=== PATIENT | male | born 1945 | race Native Hawaiian/Other Pacific Islander ===

== ENCOUNTER 2019-04-20 07:18 | Observation (INO) | payer MEDICARE, OTHER ==
[2019-04-20] MEDS ORDERED: SODIUM CHLORIDE 0.9% 1,000 ML IV STA ×2 (07:35)
--- NOTE | 2019-04-20 07:39 | ED ---
Nausea/Vomiting/Diarrhea HPI - General Chief complaint: Nausea/Vomiting/Diarrhea Stated complaint: NVD/back pain Time Seen by Provider: 04/20/19 07:26 Source: patient, family, RN notes reviewed Mode of arrival: wheelchair Limitations: no limitations, language barrier - History of Present Illness Initial comments: This is a 73-year-old male presents emergency Department with 3 days of nausea vomiting and diarrhea which is gotten worse he's had decreased oral intake he states she's had back pain going from his lumbar spine up to his upper thoracic spine gets worse with deep breathing he's also had markedly decreased oral intake. He also has some sharp anterior chest pain yesterday. Fevers chills or sweats just feels tired. No recent antibiotics. No cough or phlegm production no other modifying factors MD complaint: nausea, vomiting, diarrhea, abdominal pain, other - Related Data Home Medications Medication Instructions Recorded Confirmed Atenolol [Tenormin] 50 mg PO DAILY 03/13/16 04/20/19 DULoxetine HCL [Cymbalta] 30 mg PO HS 03/13/16 04/20/19 Furosemide [Lasix] 40 mg PO BID 03/13/16 04/20/19 Isosorbide Mononitrate ER [Imdur] 60 mg PO DAILY 03/13/16 04/20/19 Lovastatin [Mevacor] 20 mg PO HS 03/13/16 04/20/19 cloNIDine HCL [Catapres] 0.2 mg PO TID 03/13/16 04/20/19 Ergocalciferol [Vitamin D2] 50,000 unit PO FR 04/20/19 04/20/19 INSULIN ASPART (NovoLOG) [NovoLOG See Protocol SQ AC-TID 04/20/19 04/20/19 (formulary)] Insulin Glargine [Lantus] 60 unit SQ QA 04/20/19 04/20/19 Insulin Glargine [Lantus] 100 unit SQ 04/20/19 04/20/19 Lisinopril [Zestril] 5 mg PO DAILY 04/20/19 04/20/19 [place]-3 Fatty Acids/Fish Oil [Fish 1 cap PO DAILY 04/20/19 04/20/19 Oil 1,000 mg Softgel] Allergies Allergy/AdvReac Type Severity Reaction Status Date / Time No Known Allergies Allergy Verified 04/20/19 07:47 Review of Systems ROS Statement: Those systems with pertinent positive or pertinent negative responses have been documented in the HPI. ROS Other: All systems not noted in ROS Statement are negative. Past Medical History Past Medical History: Diabetes Mellitus, Hyperlipidemia, Hypertension, Sleep Apnea/CPAP/BIPAP Additional Past Medical History / Comment(s): ARTHRITIS, kidney stones History of Any Multi-Drug Resistant Organisms: None Reported Past Surgical History: Back Surgery Additional Past Surgical History / Comment(s): MASS REMOVED FROM BACK OF HEAD Past Psychological History: Depression Smoking Status: Never smoker Past Alcohol Use History: None Reported Past Drug Use History: None Reported General Exam - General Exam Comments Initial Comments: This is a well-developed well-nourished awake alert oriented times 3 male Limitations: no limitations, language barrier General appearance: alert, anxious, in distress Head exam: Present: atraumatic, normocephalic, normal inspection Eye exam: Present: normal appearance, PERRL, EOMI. Absent: scleral icterus, conjunctival injection, periorbital swelling ENT exam: Present: mucous membranes dry Neck exam: Present: normal inspection. Absent: tenderness, meningismus, lymphadenopathy Respiratory exam: Present: normal lung sounds bilaterally. Absent: respiratory distress, wheezes, rales, rhonchi, stridor Cardiovascular Exam: Present: regular rate, normal rhythm, normal heart sounds. Absent: systolic murmur, diastolic murmur, rubs, gallop, clicks GI/Abdominal exam: Present: soft, tenderness, normal bowel sounds. Absent: distended, guarding, rebound, rigid, bruit, pulsatile mass Rectal exam: Present: deferred Extremities exam: Present: normal inspection, full ROM, normal capillary refill. Absent: tenderness, pedal edema, joint swelling, calf tenderness Back exam: Present: normal inspection Neurological exam: Present: alert, oriented X3, CN II-XII intact Psychiatric exam: Present: normal affect, normal mood Skin exam: Present: warm, dry, intact, normal color. Absent: rash Course Vital Signs 04/20/19 04/20/19 04/20/19 07:21 10:00 11:10 Temperature 98.2 F 98.6 F Pulse Rate 71 76 80 Respiratory 20 18 18 Rate Blood Pressure 206/84 211/84 206/91 O2 Sat by Pulse 98 95 95 Oximetry - Reevaluation(s) Reevaluation #1: 04/20/19 12:50 The patient is reevaluated several occasions and minimal improvement thus far. No new medications no history of any risk factors for hepatitis. Patient does not drink alcohol. Medical Decision Making - Medical Decision Making I did discuss findings with the patient family patient does demonstrate elevated white blood cell count infectious processes as suspected in addition to the elevated liver enzymes. Hepatitis panel is negative. Patient be admitted consultation by GI - Lab Data Result diagrams: 04/20/19 07:55 04/20/19 07:55 Lab Results 04/20/19 04/20/19 04/20/19 Range/Units 07:55 07:55 07:55 WBC 15.2 H (3.8-10.6) k/uL RBC 5.20 (4.30-5.90) m/uL Hgb 15.5 (13.0-17.5) gm/dL Hct 46.9 (39.0-53.0) % MCV 90.2 (80.0-100.0) fL MCH 29.9 (25.0-35.0) pg MCHC 33.1 (31.0-37.0) g/dL RDW 13.5 (11.5-15.5) % Plt Count 269 (150-450) k/uL Neutrophils % 91 % Lymphocytes % 4 % Monocytes % 4 % Eosinophils % 1 % Basophils % 0 % Neutrophils # 13.9 H (1.3-7.7) k/uL Lymphocytes # 0.6 L (1.0-4.8) k/uL Monocytes # 0.6 (0-1.0) k/uL Eosinophils # 0.1 (0-0.7) k/uL Basophils # 0.0 (0-0.2) k/uL D-Dimer (<0.60) mg/L FEU Sodium 138 (137-145) mmol/L Potassium 4.4 (3.5-5.1) mmol/L Chloride 104 (98-107) mmol/L Carbon Dioxide 23 (22-30) mmol/L Anion Gap 11 mmol/L BUN 19 (9-20) mg/dL Creatinine 1.22 (0.66-1.25) mg/dL Est GFR (CKD-EPI)AfAm 68 (>60 ml/min/1.73 sqM) Est GFR (CKD-EPI)NonAf 59 (>60 ml/min/1.73 sqM) Glucose 296 H (74-99) mg/dL Calcium 9.0 (8.4-10.2) mg/dL Magnesium 1.9 (1.6-2.3) mg/dL Total Bilirubin 2.0 H (0.2-1.3) mg/dL AST 406 H (17-59) U/L ALT 209 H (21-72) U/L Alkaline Phosphatase 297 H (38-126) U/L Creatine Kinase 158 (55-170) U/L Troponin I (0.000-0.034) ng/mL Total Protein 6.9 (6.3-8.2) g/dL Albumin 3.7 (3.5-5.0) g/dL Lipase 225 (23-300) U/L Urine Color Yellow Urine Appearance Clear (Clear) Urine pH 7.0 (5.0-8.0) Ur Specific [place] 1.011 (1.001-1.035) Urine Protein 3+ H (Negative) Urine Glucose (UA) 4+ H (Negative) Urine Ketones Trace H (Negative) Urine Blood Moderate H (Negative) Urine Nitrite Negative (Negative) Urine Bilirubin Negative (Negative) Urine Urobilinogen <2.0 (<2.0) mg/dL Ur Leukocyte Esterase Negative (Negative) Urine RBC 5 (0-5) /hpf Urine WBC 2 (0-5) /hpf Ur Squamous Epith Cells <1 (0-4) /hpf Urine Mucus Rare H (None) /hpf Hepatitis A IgM Ab 04/20/19 04/20/19 04/20/19 Range/Units 07:55 07:55 11:30 WBC (3.8-10.6) k/uL RBC (4.30-5.90) m/uL Hgb (13.0-17.5) gm/dL Hct (39.0-53.0) % MCV (80.0-100.0) fL MCH (25.0-35.0) pg MCHC (31.0-37.0) g/dL RDW (11.5-15.5) % Plt Count (150-450) k/uL Neutrophils % % Lymphocytes % % Monocytes % % Eosinophils % % Basophils % % Neutrophils # (1.3-7.7) k/uL Lymphocytes # (1.0-4.8) k/uL Monocytes # (0-1.0) k/uL Eosinophils # (0-0.7) k/uL Basophils # (0-0.2) k/uL D-Dimer 1.21 H (<0.60) mg/L FEU Sodium (137-145) mmol/L Potassium (3.5-5.1) mmol/L Chloride (98-107) mmol/L Carbon Dioxide (22-30) mmol/L Anion Gap mmol/L BUN (9-20) mg/dL Creatinine (0.66-1.25) mg/dL Est GFR (CKD-EPI)AfAm (>60 ml/min/1.73 sqM) Est GFR (CKD-EPI)NonAf (>60 ml/min/1.73 sqM) Glucose (74-99) mg/dL Calcium (8.4-10.2) mg/dL Magnesium (1.6-2.3) mg/dL Total Bilirubin (0.2-1.3) mg/dL AST (17-59) U/L ALT (21-72) U/L Alkaline Phosphatase (38-126) U/L Creatine Kinase (55-170) U/L Troponin I <0.012 (0.000-0.034) ng/mL Total Protein (6.3-8.2) g/dL Albumin (3.5-5.0) g/dL Lipase (23-300) U/L Urine Color Urine Appearance (Clear) Urine pH (5.0-8.0) Ur Specific [place] (1.001-1.035) Urine Protein (Negative) Urine Glucose (UA) (Negative) Urine Ketones (Negative) Urine Blood (Negative) Urine Nitrite (Negative) Urine Bilirubin (Negative) Urine Urobilinogen (<2.0) mg/dL Ur Leukocyte Esterase (Negative) Urine RBC (0-5) /hpf Urine WBC (0-5) /hpf Ur Squamous Epith Cells (0-4) /hpf Urine Mucus (None) /hpf Hepatitis A IgM Ab NEGATIVE - EKG Data -: EKG Interpreted by In EKG shows normal: sinus rhythm, axis, intervals, QRS complexes, ST-T waves (Normal sinus rhythm rate was 67. Interval 154 QRS 96 QT since QTC 480/[address]-T wave changes) Rate: normal - Radiology Data Radiology results: report reviewed (I did review the imaging and report no evidence of acute findings. Ultrasound does show evidence of sludge in the gallbladder.), image reviewed Disposition Clinical Impression: Hepatitis, Gastroenteritis, Dehydration, Failure to thrive Disposition: ADMITTED IP TO THIS [facility] Condition: Fair Referrals: Dennis Santana DO [Primary Care Provider] - 1-2 days
[2019-04-20] MEDS: ONDANSETRON 4 MG/2 ML VIAL IVP STA ×2 (08:00→10:19)
[2019-04-20 08:07] LABS: Basophils % (A) 0 %; Eosinophils # (A) 0.1 k/uL (0-0.7); Eosinophils % (A) 1 %; HCT 46.9 % (39.0-53.0); HGB 15.5 gm/dL (13.0-17.5); Lymphocytes # (A) 0.6 k/uL (1.0-4.8); Lymphocytes % (A) 4 %; MCH 29.9 pg (25.0-35.0); MCHC 33.1 g/dL (31.0-37.0); MCV 90.2 fL (80.0-100.0); Mean Platelet Volume 7.6; Monocytes # (A) 0.6 k/uL (0-1.0); Monocytes % (A) 4 %; Neutrophils # (A) 13.9 k/uL (1.3-7.7); Neutrophils % (A) 91 %; Platelet Count 269 k/uL (150-450); RDW 13.5 % (11.5-15.5); WBC 15.2 k/uL (3.8-10.6)
[2019-04-20 08:13] LABS: Appearance,Urine Clear (Clear); Bilirubin,Urine Negative (Negative); Blood,Urine Moderate (Negative); Color,Urine Yellow; Glucose,Urine (UA) 4+ (Negative); Ketones,Urine Trace (Negative); Leukocyte Esterase,Urine Negative (Negative); Mucus,Urine Rare /hpf; Nitrite,Urine Negative (Negative); Protein,Urine 3+ (Negative); RBC,Urine 5 /hpf (0-5); Specific Gravity,Urine 1.011 (1.001-1.035); Squamous Epithelial Cell,Urine <1 /hpf (0-4); Urobilinogen,Urine <2.0 mg/dL (<2.0); WBC,Urine 2 /hpf (0-5)
[2019-04-20 08:17] LABS: Albumin 3.7 g/dL (3.5-5.0); Magnesium 1.9 mg/dL (1.6-2.3); Potassium 4.4 mmol/L (3.5-5.1); Total Protein 6.9 g/dL (6.3-8.2)
--- NOTE | 2019-04-20 08:29 | XR ---
EXAMINATION TYPE: XR chest 2V DATE OF EXAM: 04/20/2019 COMPARISON: Chest x-ray March 13, 2016. HISTORY: Right-sided chest pain today. TECHNIQUE: Frontal and lateral views of the chest are obtained. FINDINGS: Low lung volumes are present. There is no focal air space opacity, pleural effusion, or pne umothorax seen. The cardiac silhouette size is within normal limits. Some bridging spurs in the thor acic spine are seen. IMPRESSION: Low lung volumes without acute pulmonary process. No significant change from prior.
--- NOTE | 2019-04-20 08:31 | XR ---
EXAMINATION TYPE: XR KUB DATE OF EXAM: 04/20/2019 8:23 AM CLINICAL HISTORY: Generalized abdominal pain with nausea and vomiting TECHNIQUE: Two Upright KUB images of the abdomen are obtained. COMPARISON: Abdominal x-ray March 13, 2016. CT abdomen and pelvis March 16, 2015. FINDINGS: Scattered gas is seen in non-distended small bowel loops. Gas and fecal material is seen in non-distended colon. Postsurgical change at lumbosacral junction is redemonstrated. No pneumoperiton eum. No suspicious calcifications. Lung bases are clear. IMPRESSION: Overall nonobstructive bowel gas pattern.
--- NOTE | 2019-04-20 11:12 | CT ---
EXAMINATION TYPE: CT angio thor/abd pel aorta DATE OF EXAM: 04/20/2019 COMPARISON: 03/16/2015 HISTORY: Nausea and vomiting, back pain CT DLP: 1910.9 mGycm CONTRAST: CTA thoracic and abdominal aorta with 3-D reconstruction is performed and without and with IV Contras t, patient injected with 100 mL of Isovue 370. Contrast CTA of the thoracic and abdominal aorta was performed from the lung apex through the base of the pelvis. 3-D reconstruction imaging obtained at a separate workstation. CT Chest: THORACIC AORTA: There is no evidence for aneurysm. No dissection or mediastinal hematoma. Mild ath eromatous changes are seen. LUNGS: The lungs are clear and free of infiltrate or atelectasis. No pulmonary nodule or mass is det ected. No pleural effusion or CT evidence of interstitial lung disease. MEDIASTINUM: The heart is not enlarged. No evidence for mediastinal mass or adenopathy. HILAR STRUCTURES: No evidence for mass. No hilar adenopathy is appreciated. OTHER: No significant abnormality. CONTRAST CT ABDOMEN AND PELVIS ABDOMINAL AORTA: No evidence for abdominal aortic aneurysm. No dissection. Iliac vessels are symmet renata and patent. LIVER/GB- No significant abnormality is seen. PANCREAS- No significant abnormality is seen. SPLEEN- No significant abnormality is seen. ADRENALS- No significant abnormality is seen. KIDNEYS/BLADDER- No significant abnormality is seen. Right renal cystic changes noted. BOWEL- No Significant abnormality GENITAL ORGANS: No gross abnormality seen. LYMPH NODES- No greater than 1cm abdominal or pelvic lymph nodes are appreciated. OSSEOUS STRUCTURES-severe lumbar degenerative disc disease and spondylosis with central stenosis at L 2-3. OTHER- No significant abnormality is seen. IMPRESSION- 1. No evidence for aortic dissection or aneurysm. 2. No acute process appreciated at this time.
--- NOTE | 2019-04-20 12:17 | US ---
EXAMINATION TYPE: US gallbladder DATE OF EXAM: 04/20/2019 COMPARISON: CT CLINICAL HISTORY: Pain. EXAM MEASUREMENTS: Liver Length: 14.5 cm Gallbladder Wall: 0.4 cm CBD: 0.5 cm Right Kidney: 10.4 x 5.1 x 5.0 cm Morbidly obese patient carrying most of his weight in his abdomen. Technically difficult and severely limited study. Pancreas: Obscured by bowel gas Liver: Partially obscured by overlying bowel gas, very limited visualization shows increased attenua tion. Gallbladder: possible sludge, wall slightly thickened Evidence for sonographic Killian's sign: no CBD: very limited visualization Right Kidney: limited views show no obvious mass IMPRESSION: 1. Fatty liver. 2. Gallbladder sludge.
[2019-04-20] MEDS ORDERED: cefTRIAXone IN SWFI 1,000 MG/10 ML SYRINGE IVP STA (12:49)
[2019-04-20] MEDS ORDERED: ONDANSETRON 4 MG/2 ML VIAL IVP PRN (12:57)
[2019-04-20] MEDS ORDERED: HYDROmorphone 1 MG/ML 1 ML SYRINGE IVP PRN (12:57)
[2019-04-20] MEDS ORDERED: NALOXONE 0.4 MG/ML 1 ML VIAL IV PRN (12:57)
[2019-04-20] MEDS: FUROSEMIDE 40 MG TAB PO SCH (15:56)
[2019-04-20] MEDS: cloNIDine HCL 0.2 MG TAB PO SCH ×2 (15:56→21:13)
[2019-04-20] MEDS: SODIUM CHLORIDE 0.9% 1,000 ML IV SCH ×2 (15:57→22:56)
[2019-04-20 17:11] LABS: Glucose,Whole Blood 341 mg/dL (75-99)
[2019-04-20] MEDS: INSULIN ASPART (NovoLOG) 100 UNIT/ML VIAL SQ SCH ×2 (17:22→21:50)
[2019-04-20 20:51] LABS: Glucose,Whole Blood 435 mg/dL (75-99)
[2019-04-20] MEDS ORDERED: DULoxetine HCL 30 MG CAPSULE.DR PO SCH (21:00)
[2019-04-20] MEDS ORDERED: ATORVASTATIN 10 MG TAB PO SCH (21:00)
[2019-04-20] MEDS ORDERED: INSULIN REGULAR BOLUS (FROM DRIP BAG) IV ONE (21:01)
[2019-04-20] MEDS ORDERED: hydrALAZINE HCL 25 MG TAB PO PRN (21:27)
[2019-04-20] MEDS: INSULIN REGULAR 100 UNIT in SODIUM CHLORIDE 0.9% 100 ML IV SCH ×2 (21:46→22:48)
[2019-04-20 21:52] LABS: Glucose,Whole Blood 362 mg/dL (75-99)
[2019-04-20 22:27] LABS: Glucose,Whole Blood 283 mg/dL (75-99)
--- NOTE | 2019-04-20 22:29 | P.HPIM ---
History of Present Illness H&P Date: 04/20/19 Chief Complaint: Nausea and vomiting Patient is a 79-year-old male with a known history of diabetes type 2 insulin- dependent, hypertension, hyperlipidemia and obstructive sleep apnea as well as morbid obesity came to ER with complaints of nausea vomiting and diarrhea as well as abdominal pain which has been worsening for the past 3 days. Patient says that he woke up last night and is having pain in the back which is radiating up to in between the shoulder blades. Patient has been having loose stools. No blood in the stools. Was having cough without any sputum produ ction. Patient felt very weak and fell on Thursday. Patient does have loss of appetite and has been having intractable nausea vomiting worse last night which made him to come to the ER. Patient also felt heaviness in the chest and sweating. Patient otherwise denied any recent illnesses. No recent antibiotic use. EKG showed normal sinus rhythm ULTRASOUND ABDOMEN SHOWED FATTY INFILTRATION OF THE LIVER. Gallbladder sludge. CTA chest no evidence of aortic dissection. No acute process. Chest x-ray showed low lung volumes without any acute process. Next and WBC 15.2 D-dimer 1.21 CBG in 300s Elevated AST ALT and alk phos Acute hepatitis panel negative Embolism and lipase is not elevated. Review of Systems Constitutional: Patient denies any fever or chills . Generalized weakness. Abdomen: Patient does have nausea vomiting and abdominal pain and diarrhea. Cardiovascular: Patient denies any chest pain or short of breath no palpitations. Respiratory: patient denied any cough is from production. No shortness of breath Neurologic: Patient denied any numbness or tingling headache. Musculoskeletal: Patient denies any complaints of joint swelling or deformity. Skin: Negative Psychiatric: Negative Endocrine: No heat or cold intolerance. No recent weight gain. Genitourinary: No dysuria or hematuria. All other 14 point ROS negative except the above Past Medical History Past Medical History: Diabetes Mellitus, Hyperlipidemia, Hypertension, Sleep Apnea/CPAP/BIPAP Additional Past Medical History / Comment(s): ARTHRITIS, kidney stones History of Any Multi-Drug Resistant Organisms: None Reported Past Surgical History: Back Surgery Additional Past Surgical History / Comment(s): MASS REMOVED FROM BACK OF HEAD Past Psychological History: Depression Smoking Status: Never smoker Past Alcohol Use History: None Reported Past Drug Use History: None Reported Medications and Allergies Home Medications Medication Instructions Recorded Confirmed Type Atenolol [Tenormin] 50 mg PO DAILY 03/13/16 04/20/19 History DULoxetine HCL [Cymbalta] 30 mg PO HS 03/13/16 04/20/19 History Furosemide [Lasix] 40 mg PO BID 03/13/16 04/20/19 History Isosorbide Mononitrate ER [Imdur] 60 mg PO DAILY 03/13/16 04/20/19 History Lovastatin [Mevacor] 20 mg PO HS 03/13/16 04/20/19 History cloNIDine HCL [Catapres] 0.2 mg PO TID 03/13/16 04/20/19 History Ergocalciferol [Vitamin D2] 50,000 unit PO FR 04/20/19 04/20/19 History INSULIN ASPART (NovoLOG) [NovoLOG See Protocol SQ AC-TID 04/20/19 04/20/19 History (formulary)] Insulin Glargine [Lantus] 60 unit SQ QAM 04/20/19 04/20/19 History Insulin Glargine [Lantus] 100 unit SQ HS 04/20/19 04/20/19 History Lisinopril [Zestril] 5 mg PO DAILY 04/20/19 04/20/19 History [place]-3 Fatty Acids/Fish Oil [Fish 1 cap PO DAILY 04/20/19 04/20/19 History Oil 1,000 mg Softgel] Allergies Allergy/AdvReac Type Severity Reaction Status Date / Time No Known Allergies Allergy Verified 04/20/19 07:47 Physical Exam Vitals: Vital Signs Temp Pulse Resp BP Pulse Ox 04/20/19 14:42 98.4 F 87 18 163/76 97 04/20/19 13:23 80 18 167/68 96 04/20/19 11:10 80 18 206/91 95 04/20/19 10:00 98.6 F 76 18 211/84 95 04/20/19 07:21 98.2 F 71 20 206/84 98 Intake and Output 04/20/19 04/20/19 04/20/19 06:59 14:59 22:59 Other: Voiding Method Toilet Weight 111.584 kg PHYSICAL EXAMINATION: Patient is lying in the bed comfortably, no acute distress, awake alert and oriented.. HEENT: Normocephalic. Neck is supple. Pupils reactive. Nostrils clear. Oral cavity is moist. Ears reveal no drainage. Neck reveals no JVD, carotid bruits, or thyromegaly. CHEST EXAMINATION: Trachea is central. Symmetrical expansion. Lung calzada clear to auscultation and percussion. CARDIAC: Normal S1, S2 with no gallops. No murmurs ABDOMEN: Soft. Nontender. Bowel sounds normal. No organomegaly. No abdominal bruits. Extremities: reveal no edema. No clubbing or cyanosis Neurologically awake, alert, oriented x3 with well-coordinated movements. No focal deficits noted Skin: No rash or skin lesions. Psychiatric: Coperative. Nonsuicidal Musculoskeletal: No joint swelling or deformity. Normal range of motion. Results CBC & Chem 7: 04/20/19 07:55 04/20/19 07:55 Labs: Abnormal Lab Results - Last 24 Hours (Table) 04/20/19 04/20/19 04/20/19 Range/Units 07:55 07:55 07:55 WBC 15.2 H (3.8-10.6) k/uL Neutrophils # 13.9 H (1.3-7.7) k/uL Lymphocytes # 0.6 L (1.0-4.8) k/uL D-Dimer (<0.60) mg/L FEU Glucose 296 H (74-99) mg/dL Total Bilirubin 2.0 H (0.2-1.3) mg/dL AST 406 H (17-59) U/L ALT 209 H (21-72) U/L Alkaline Phosphatase 297 H (38-126) U/L Urine Protein 3+ H (Negative) Urine Glucose (UA) 4+ H (Negative) Urine Ketones Trace H (Negative) Urine Blood Moderate H (Negative) Urine Mucus Rare H (None) /hpf 04/20/19 Range/Units 07:55 WBC (3.8-10.6) k/uL Neutrophils # (1.3-7.7) k/uL Lymphocytes # (1.0-4.8) k/uL D-Dimer 1.21 H (<0.60) mg/L FEU Glucose (74-99) mg/dL Total Bilirubin (0.2-1.3) mg/dL AST (17-59) U/L ALT (21-72) U/L Alkaline Phosphatase (38-126) U/L Urine Protein (Negative) Urine Glucose (UA) (Negative) Urine Ketones (Negative) Urine Blood (Negative) Urine Mucus (None) /hpf Thrombosis Risk Factor Assmnt - DVT/VTE Prophylaxis DVT/VTE Prophylaxis: Pharmacologic Prophylaxis ordered - Choose All That Apply Each Risk Factor Represents 2 Points: Age 61-74 years Each Risk Factor Represents 3 Points: Family history of DVT/PE Thrombosis Risk Factor Assessment Total Risk Factor Score: 5 Thrombosis Risk Factor Assessment Level: High Risk Assessment and Plan Assessment: Intractable nausea vomiting and abdominal pain and diarrhea likely secondary to acute gastroenteritis Elevated liver enzymes Fatty infiltration of the liver and gallbladder sludge Hyperglycemia with uncontrolled diabetes type 2 insulin-dependent Leukocytosis likely reactive Hypertension uncontrolled/hypertensive urgency Obstructive sleep apnea on CPAP CPAP at home Morbid obesity with BMI 37.4 Depression Hyperlipidemia DVT prophylaxis with heparin subcu Plan: Patient will be continued on gentle hydration. Current with home insulin dose and insulin sliding scale. Current with home blood pressure medications including Catapres 0.2 mg 3 times a day. Continue with symptomatic management for nausea and vomiting. Supportive care. Repeat labs in the morning tomorrow. Further recommendations based on the clinical course. Discussed with the family at bedside in detail. Time with Patient: Greater than 30
[2019-04-20 22:59] LABS: Glucose,Whole Blood 209 mg/dL (75-99)
[2019-04-20] MEDS: HEPARIN SODIUM,PORCINE 5,000 UNIT/ML 1 ML VIAL SQ SCH (23:31)
[2019-04-20 23:53] LABS: Glucose,Whole Blood 154 mg/dL (75-99)
[2019-04-21 01:48] LABS: Glucose,Whole Blood 119 mg/dL (75-99)
[2019-04-21 02:53] LABS: Glucose,Whole Blood 124 mg/dL (75-99)
[2019-04-21 03:47] LABS: Glucose,Whole Blood 131 mg/dL (75-99)
[2019-04-21 05:44] LABS: Glucose,Whole Blood 158 mg/dL (75-99)
[2019-04-21] MEDS ORDERED: INSULIN DETEMIR (LEVEMIR) 100 UNIT/ML SYR SQ SCH ×2 (07:00→21:00)
[2019-04-21 07:39] LABS: Glucose,Whole Blood 128 mg/dL (75-99)
[2019-04-21] MEDS: FUROSEMIDE 40 MG TAB PO SCH (07:53)
[2019-04-21] MEDS: cloNIDine HCL 0.2 MG TAB PO SCH (07:53)
[2019-04-21] MEDS: HEPARIN SODIUM,PORCINE 5,000 UNIT/ML 1 ML VIAL SQ SCH (07:56)
[2019-04-21 08:14] VITALS: RESP 16
[2019-04-21 08:50] LABS: Basophils % (A) 0 %; Eosinophils # (A) 0.1 k/uL (0-0.7); Eosinophils % (A) 1 %; HCT 43.6 % (39.0-53.0); HGB 14.2 gm/dL (13.0-17.5); Lymphocytes # (A) 1.5 k/uL (1.0-4.8); Lymphocytes % (A) 16 %; MCH 29.9 pg (25.0-35.0); MCHC 32.6 g/dL (31.0-37.0); MCV 91.6 fL (80.0-100.0); Mean Platelet Volume 7.6; Monocytes # (A) 0.8 k/uL (0-1.0); Monocytes % (A) 9 %; Neutrophils % (A) 72 %; Platelet Count 264 k/uL (150-450); RBC 4.76 m/uL (4.30-5.90); RDW 13.8 % (11.5-15.5); WBC 9.6 k/uL (3.8-10.6)
[2019-04-21] MEDS ORDERED: ATENOLOL 50 MG TAB PO SCH (09:00)
[2019-04-21] MEDS ORDERED: NON FORMULARY DRUG (Omega-3 Fatty Acids/Fish Oil [Fish Oil 1,000 Mg Softgel] 1 CAP) PO SCH (09:00)
[2019-04-21] MEDS ORDERED: ISOSORBIDE MONONITRATE ER 60 MG TAB.ER.24H PO SCH (09:00)
[2019-04-21] MEDS ORDERED: LISINOPRIL 5 MG TAB PO SCH (09:00)
[2019-04-21 09:28] LABS: Albumin 2.9 g/dL (3.5-5.0); Bilirubin, Conjugated 1.4 mg/dL (0.0-0.3); Bilirubin,Unconjugated 0.7 mg/dL (0.0-1.1); Calcium 8.2 mg/dL (8.4-10.2); Potassium 4.3 mmol/L (3.5-5.1); Total Bilirubin 3.1 mg/dL (0.2-1.3); Total Protein 5.8 g/dL (6.3-8.2)
[2019-04-21] MEDS: INSULIN ASPART (NovoLOG) 100 UNIT/ML VIAL SQ SCH ×2 (09:38→12:10)
[2019-04-21 09:43] LABS: Glucose,Whole Blood 230 mg/dL (75-99)
[2019-04-21] MEDS: SODIUM CHLORIDE 0.9% 1,000 ML IV SCH (10:55)
[2019-04-21 12:11] LABS: Glucose,Whole Blood 215 mg/dL (75-99)
--- NOTE | 2019-04-21 14:58 | P.CNPUL ---
History of Present Illness Consult date: 04/21/19 Chief complaint: Diarrhea, abnormal d-dimer History of present illness: A 79-year-old male patient admitted to the hospital because of nausea vomiting and diarrhea. The patient is a of a descent. The patient has obesity, type 2 diabetes mellitus, hypertension and hyperlipidemia and obstructive sleep apnea. The patient developed acute nausea vomiting and diarrhea and symptoms were essentially consistent with gastroenteritis. In the ED the patient was found to have abnormal LFTs. He did complain of some pain in his mid upper back area for that reason the patient was given a CT angiogram of the thoracic aorta that showed no evidence of any dissection. D-dimer is at 1.4. Limited coffee no sputum production. No chest pain. No hemoptysis. No pleurisy. No fever chills or night sweats. No recent antibiotic use. ultrasound of the gallbladder showed sludge. Hepatitis profile was negative. LFTs are improving. Pancreatic enzymes of nonelevated. I was asked to evaluate this patient because of the elevated d-dimer. I think the suspicion that the primary care physician has is embolism. I do not think there is any evidence of embolism as the patient's CTA of the thoracic aorta showed the pulmonary arteries at least a main and the primary branches without any evidence of any filling defects. The patient furthermore is not having any hypoxemia or respiratory difficulties for now. All of the symptoms have subs ided. No previous history of DVT. No previous history of pulmonary embolism. No previous history of swelling in lower extremities PAIN or tenderness. Review of Systems Constitutional: Patient denies any fever or chills . Generalized weakness. Abdomen: Patient does have nausea vomiting and abdominal pain and diarrhea. Cardiovascular: Patient denies any chest pain or short of breath no palpitations. Respiratory: patient denied any cough is from production. No shortness of breath Neurologic: Patient denied any numbness or tingling headache. Musculoskeletal: Patient denies any complaints of joint swelling or deformity. Skin: Negative Psychiatric: Negative Endocrine: No heat or cold intolerance. No recent weight gain. Genitourinary: No dysuria or hematuria. All other 14 point ROS negative except the above Past Medical History Past Medical History: Diabetes Mellitus, Hyperlipidemia, Hypertension, Sleep Apnea/CPAP/BIPAP Additional Past Medical History / Comment(s): ARTHRITIS, kidney stones History of Any Multi-Drug Resistant Organisms: None Reported Past Surgical History: Back Surgery Additional Past Surgical History / Comment(s): MASS REMOVED FROM BACK OF HEAD Past Psychological History: Depression Smoking Status: Never smoker Past Alcohol Use History: None Reported Past Drug Use History: None Reported Medications and Allergies Home Medications Medication Instructions Recorded Confirmed Type Atenolol [Tenormin] 50 mg PO DAILY 03/13/16 04/20/19 History DULoxetine HCL [Cymbalta] 30 mg PO HS 03/13/16 04/20/19 History Furosemide [Lasix] 40 mg PO BID 03/13/16 04/20/19 History Isosorbide Mononitrate ER [Imdur] 60 mg PO DAILY 03/13/16 04/20/19 History Lovastatin [Mevacor] 20 mg PO HS 03/13/16 04/20/19 History cloNIDine HCL [Catapres] 0.2 mg PO TID 03/13/16 04/20/19 History Ergocalciferol [Vitamin D2] 50,000 unit PO FR 04/20/19 04/20/19 History INSULIN ASPART (NovoLOG) [NovoLOG See Protocol SQ AC-TID 04/20/19 04/20/19 History (formulary)] Insulin Glargine [Lantus] 60 unit SQ QAM 04/20/19 04/20/19 History Insulin Glargine [Lantus] 100 unit SQ HS 04/20/19 04/20/19 History Lisinopril [Zestril] 5 mg PO DAILY 04/20/19 04/20/19 History [place]-3 Fatty Acids/Fish Oil [Fish 1 cap PO DAILY 04/20/19 04/20/19 History Oil 1,000 mg Softgel] Allergies Allergy/AdvReac Type Severity Reaction Status Date / Time No Known Allergies Allergy Verified 04/20/19 07:47 Physical Exam Vitals: Vital Signs Temp Pulse Resp BP BP Pulse Ox 04/21/19 07:25 73 16 04/21/19 07:00 97.7 F 73 16 172/70 94 L 04/21/19 02:49 164/75 04/21/19 01:13 98.5 F 75 15 176/79 95 04/20/19 23:58 155/74 04/20/19 21:16 192/76 04/20/19 21:07 98.2 F 78 17 200/81 98 04/20/19 18:58 98.0 F 80 18 158/71 95 04/20/19 16:00 18 Intake and Output 04/20/19 04/21/19 04/21/19 22:59 06:59 14:59 Intake Total 30.368 23.972 Balance 30.368 23.972 Intake: Intake, IV Titration 20.368 13.972 Amount Insulin Regular 100 unit 20.368 13.972 In Sodium Chloride 0.9% 100 ml @ Titrate IV .Q0M [facility] Rx#:[id number] Oral 10 10 Other: Voiding Method Toilet Toilet # Voids 4 Gen. appearance, comfortable likely distress obese male patient with a BMI of 37.4 Head exam was generally normal. There was no scleral icterus or corneal arcus. Mucous membranes were moist. Neck was supple and without jugular venous distension, thyromegaly, or carotid bruits. Carotids were easily palpable bilaterally. There was no adenopathy. Mallampati class IV Lungs were clear to auscultation and percussion, and with normal diaphragmatic excursion. No wheezes or rales were noted. Cardiac exam revealed the PMI to be normally situated and sized. The rhythm was regular and no extrasystoles were noted during several minutes of auscultation. The first and second heart sounds were normal and physiologic splitting of the second heart sound was noted. There were no murmurs, rubs, clicks, or gallops. Abdominal exam revealed normal bowel sounds. The abdomen was soft, non-tender, and without masses, organomegaly, or appreciable enlargement of the abdominal aorta. The patient's abdomen is slightly distended. There is no direct te nderness or rebound tensile guarding Examination of the skin revealed no evidence of significant rashes, suspicious appearing nevi or other concerning lesions. Neurologically awake and alert and there is no focal neurological deficits. Results - Laboratory Findings CBC and BMP: 04/21/19 08:18 04/21/19 08:18 PT/INR, D-dimer D-Dimer 1.21 mg/L FEU (<0.60) H 04/20/19 07:55 Abnormal lab findings: Abnormal Labs 04/20/19 04/20/19 04/20/19 07:55 07:55 07:55 WBC 15.2 H Neutrophils # 13.9 H Lymphocytes # 0.6 L D-Dimer Creatinine Glucose 296 H POC Glucose (mg/dL) Calcium Total Bilirubin 2.0 H Conjugated Bilirubin Delta Bilirubin AST 406 H ALT 209 H Alkaline Phosphatase 297 H Total Protein Albumin Urine Protein 3+ H Urine Glucose (UA) 4+ H Urine Ketones Trace H Urine Blood Moderate H Urine Mucus Rare H 04/20/19 04/20/19 04/20/19 07:55 16:59 20:50 WBC Neutrophils # Lymphocytes # D-Dimer 1.21 H Creatinine Glucose POC Glucose (mg/dL) 341 H 435 H Calcium Total Bilirubin Conjugated Bilirubin Delta Bilirubin AST ALT Alkaline Phosphatase Total Protein Albumin Urine Protein Urine Glucose (UA) Urine Ketones Urine Blood Urine Mucus 04/20/19 04/20/19 04/20/19 21:40 22:16 22:47 WBC Neutrophils # Lymphocytes # D-Dimer Creatinine Glucose POC Glucose (mg/dL) 362 H 283 H 209 H Calcium Total Bilirubin Conjugated Bilirubin Delta Bilirubin AST ALT Alkaline Phosphatase Total Protein Albumin Urine Protein Urine Glucose (UA) Urine Ketones Urine Blood Urine Mucus 04/20/19 04/21/19 04/21/19 23:41 01:36 02:40 WBC Neutrophils # Lymphocytes # D-Dimer Creatinine Glucose POC Glucose (mg/dL) 154 H 119 H 124 H Calcium Total Bilirubin Conjugated Bilirubin Delta Bilirubin AST ALT Alkaline Phosphatase Total Protein Albumin Urine Protein Urine Glucose (UA) Urine Ketones Urine Blood Urine Mucus 04/21/19 04/21/19 04/21/19 03:35 05:31 07:28 WBC Neutrophils # Lymphocytes # D-Dimer Creatinine Glucose POC Glucose (mg/dL) 131 H 158 H 128 H Calcium Total Bilirubin Conjugated Bilirubin Delta Bilirubin AST ALT Alkaline Phosphatase Total Protein Albumin Urine Protein Urine Glucose (UA) Urine Ketones Urine Blood Urine Mucus 04/21/19 04/21/19 04/21/19 08:18 09:31 11:59 WBC Neutrophils # Lymphocytes # D-Dimer Creatinine 1.51 H Glucose 242 H POC Glucose (mg/dL) 230 H 215 H Calcium 8.2 L Total Bilirubin 3.1 H Conjugated Bilirubin 1.4 H Delta Bilirubin 1.0 H AST 290 H ALT 232 H Alkaline Phosphatase 314 H Total Protein 5.8 L Albumin 2.9 L Urine Protein Urine Glucose (UA) Urine Ketones Urine Blood Urine Mucus Assessment and Plan Plan: 1 elevated d-dimer not related to any venous thrombolic disease. This is most likely related to his gastroenteritis which can cause some mild elevation in d- dimer. CT angiogram of the thoracic aorta and abdominal aorta was done and the findings are negative for dissection. The the same scan shows the pulmonary artery where the primary and secondary branches are well seen and there is no filling defect his furthermore the patient is completely asymptomatic. No hypoxemia. No shortness of breath or chest pain. 2 gastroenteritis improving 3 transaminitis, improving 4 obesity 5 obstructive sleep apnea. 6 diabetes mellitus type 2 7 hypertension 8 hyperlipidemia Plan No suspicion for DVT or pulmonary embolism. D-dimer elevation is nonspecific and is most likely related to gastroenteritis. Pulmonary critical care services we'll sign off and leave the rest of the management of the medicine.
[2019-04-21 15:26] VITALS: BP 146/80; PULSE 53; TEMP 98.2
[2019-04-21] MEDS ORDERED: CHERRY FLAVOR 60 ML BOTTLE PO SCH (18:00)
[2019-04-21] MEDS ORDERED: VANCOMYCIN ORAL SOLUTION 250 MG/5 ML BOTTLE PO SCH (18:00)
[2019-04-22] MEDS ORDERED: ERGOCALCIFEROL 50,000 UNIT CAP PO SCH (09:00)
[2019-04-22] MEDS ORDERED: LISINOPRIL 20 MG TAB PO SCH (09:00)
--- NOTE | 2019-05-05 01:22 | P.DS ---
Providers Date of admission: 04/20/19 12:58 Expected date of discharge: 04/21/19 Attending physician: Kwan Durant MD Consults: 04/20/19 12:58 Consult Physician Routine Consulting Provider: Farhan Dozier Consult Reason/Comments: Hepatitis, gastroenteritis Do you want consulting provider notified?: Yes 04/20/19 21:26 Consult Physician Routine Consulting Provider: Zion Rubio Consult Reason/Comments: Elevated D-Dimer Do you want consulting provider notified?: Yes, Notify in am Primary care physician: [facility] Course: Discharge diagnosis Intractable nausea vomiting and abdominal pain and diarrhea likely secondary to acute gastroenteritis. improved. Elevated liver enzymes Fatty infiltration of the liver and gallbladder sludge Hyperglycemia with uncontrolled diabetes type 2 insulin-dependent Leukocytosis likely reactive Hypertension uncontrolled/hypertensive urgency Obstructive sleep apnea on CPAP CPAP at home Morbid obesity with BMI 37.4 Depression Hyperlipidemia DVT prophylaxis with heparin subcu Hospital course. Patient is a 79-year-old male with a known history of diabetes type 2 insulin- dependent, hypertension, hyperlipidemia and obstructive sleep apnea as well as morbid obesity came to ER with complaints of nausea vomiting and diarrhea as well as abdominal pain which has been worsening for the past 3 days. Patient says that he woke up last night and is having pain in the back which is radiating up to in between the shoulder blades. Patient has been having loose stools. No blood in the stools. Was having cough without any sputum production. Patient felt very weak and fell on Thursday. Patient does have loss of appetite and has been having intractable nausea vomiting worse last night which made him to come to the ER. Patient also felt heaviness in the chest and sweating. Patient otherwise denied any recent illnesses. No recent antibiotic use. EKG showed normal sinus rhythm ULTRASOUND ABDOMEN SHOWED FATTY INFILTRATION OF THE LIVER. Gallbladder sludge. CTA chest no evidence of aortic dissection. No acute process. Chest x-ray showed low lung volumes without any acute process. Next and WBC 15.2 D-dimer 1.21 CBG in 300s Elevated AST ALT and alk phos Acute hepatitis panel negative Embolism and lipase is not elevated. Plan: Patient was continued on gentle hydration. Continued with home insulin dose and insulin sliding scale. Current with home blood pressure medications including Catapres 0.2 mg 3 times a day. Continue with symptomatic management for nausea and vomiting. Supportive care. Pt did improve clinically.. Discussed with the family at bedside in detail. PHYSICAL EXAMINATION: Patient is lying in the bed comfortably, no acute distress, awake alert and oriented.. HEENT: Normocephalic. Neck is supple. Pupils reactive. Nostrils clear. Oral cavity is moist. Ears reveal no drainage. Neck reveals no JVD, carotid bruits, or thyromegaly. CHEST EXAMINATION: Trachea is central. Symmetrical expansion. Lung calzada clear to auscultation and percussion. CARDIAC: Normal S1, S2 with no gallops. No murmurs ABDOMEN: Soft. Nontender. Bowel sounds normal. No organomegaly. No abdominal bruits. Extremities: reveal no edema. No clubbing or cyanosis Neurologically awake, alert, oriented x3 with well-coordinated movements. No focal deficits noted Skin: No rash or skin lesions. Psychiatric: Coperative. Nonsuicidal Musculoskeletal: No joint swelling or deformity. Normal range of motion. Vital Signs Temp 97.7 F 04/21/19 07:00 Pulse 73 04/21/19 07:25 Resp 16 04/21/19 07:25 BP 172/70 04/21/19 07:00 Pulse Ox 94 L 04/21/19 07:00 Intake & Output 04/20/19 04/21/19 04/21/19 18:59 06:59 18:59 Intake Total 54.340 Balance 54.340 Weight 111.584 kg Intake: Intake, IV Titration 34.340 Amount Insulin Regular 100 unit 34.340 In Sodium Chloride 0.9% 100 ml @ Titrate IV .Q0M [facility] Rx#:[id number] Oral 20 Other: Voiding Method Toilet Toilet # Voids 4 Bakari etaken > 35 min Patient Condition at Discharge: Fair Plan - Discharge Summary New Discharge Prescriptions: Continue Isosorbide Mononitrate ER [Imdur] 60 mg PO DAILY Furosemide [Lasix] 40 mg PO BID Atenolol [Tenormin] 50 mg PO DAILY cloNIDine HCL [Catapres] 0.2 mg PO TID DULoxetine HCL [Cymbalta] 30 mg PO HS Insulin Glargine [Lantus] 100 unit SQ HS Insulin Glargine [Lantus] 60 unit SQ QAM [place]-3 Fatty Acids/Fish Oil [Fish Oil 1,000 mg Softgel] 1 cap PO DAILY Ergocalciferol [Vitamin D2 JAJAISDOL)] 50,000 unit PO FR Lisinopril [Zestril] 5 mg PO DAILY INSULIN ASPART (NovoLOG) [NovoLOG (formulary)] See Protocol SQ AC-TID Discontinued Lovastatin [Mevacor] 20 mg PO HS Discharge Medication List Atenolol [Tenormin] 50 mg PO DAILY 03/13/16 [History] DULoxetine HCL [Cymbalta] 30 mg PO HS 03/13/16 [History] Furosemide [Lasix] 40 mg PO BID 03/13/16 [History] Isosorbide Mononitrate ER [Imdur] 60 mg PO DAILY 03/13/16 [History] cloNIDine HCL [Catapres] 0.2 mg PO TID 03/13/16 [History] Ergocalciferol [Vitamin D2 (DRISDOL)] 50,000 unit PO FR 04/20/19 [History] INSULIN ASPART (NovoLOG) [NovoLOG (formulary)] See Protocol SQ AC-TID 04/20/19 [History] Insulin Glargine [Lantus] 60 unit SQ QA 04/20/19 [History] Insulin Glargine [Lantus] 100 unit SQ HS 04/20/19 [History] Lisinopril [Zestril] 5 mg PO DAILY 04/20/19 [History] [place]-3 Fatty Acids/Fish Oil [Fish Oil 1,000 mg Softgel] 1 cap PO DAILY 04/20/19 [History] Follow up Appointment(s)/Referral(s): Dennis Santana DO [Primary Care Provider] - 04/26/19 11:40 am (Appt set with [facility]) Farhan Dozier MD [STAFF PHYSICIAN] - 04/25/19 11:45 am Patient Instructions/Handouts: Acute Abdominal Pain (DC) Discharge Disposition: HOME SELF-CARE
== END 2019-04-21 17:30 | disposition home or self-care (01) ==
LOC: EC 07:18 → 4SSUR 12:58
PROVIDERS: ADMIT Internal Medicine; ATTEND Internal Medicine
DX: R11.2 Nausea with vomiting, unspecified (principal); R19.7 Diarrhea, unspecified; R05 Cough; R61 Generalized hyperhidrosis; R63.0 Anorexia; E86.0 Dehydration; R79.89 Other specified abnormal findings of blood chemistry; R74.0 Nonspecific elevation of levels of transaminase and lactic acid dehydrogenase [LDH]; D72.829 Elevated white blood cell count, unspecified; K76.0 Fatty (change of) liver, not elsewhere classified; I16.0 Hypertensive urgency; I10 Essential (primary) hypertension; E78.5 Hyperlipidemia, unspecified; R62.7 Adult failure to thrive; M54.5 Low back pain; M54.6 Pain in thoracic spine; F32.9 Major depressive disorder, single episode, unspecified; G47.33 Obstructive sleep apnea (adult) (pediatric); Z99.89 Dependence on other enabling machines and devices; E66.01 Morbid (severe) obesity due to excess calories; Z68.37 Body mass index [BMI] 37.0-37.9, adult; K82.8 Other specified diseases of gallbladder; Z87.442 Personal history of urinary calculi; E11.65 Type 2 diabetes mellitus with hyperglycemia; M19.90 Unspecified osteoarthritis, unspecified site; Z91.81 History of falling; Z79.4 Long term (current) use of insulin; Z79.899 Other long term (current) drug therapy; Z83.2 Family history of diseases of the blood and blood-forming organs and certain disorders involving the immune mechanism
CPT/HCPCS: 96372 ×2; 96375 ×2; 96376; 96361; 96374; 99285; 36415; 93005; 85379; 80053 ×2; 80074; 82248; 82550; 83690; 83735; 84484; 85025 ×2; 81001; 87040; 87324; 71046; 74018; 76705; 71275; 74174; G0378 ×2; G0480; J1644 ×2; J2405; J0696; J1170; Q9967; 80320

== ENCOUNTER 2019-04-24 00:51 | Emergency (ER) | payer MEDICARE ==
--- NOTE | 2019-04-24 01:04 | ED ---
Nausea/Vomiting/Diarrhea HPI - General Chief complaint: Nausea/Vomiting/Diarrhea Stated complaint: Abd pain Time Seen by Provider: 04/24/19 00:53 Source: patient, family, RN notes reviewed, old records reviewed Mode of arrival: wheelchair Limitations: no limitations - History of Present Illness Initial comments: This is a 71-year-old male the ER for evaluation. Patient resents to abdominal muscle bloating nausea not feeling well. Patient has recent history of same was admitted for multiple issues here in the hospital. Patient's discharge 2 days a go was feeling fine but symptoms began today. At this time patient states symptoms are resolved. Denies any complaints no recent fevers. No recent change in medications. MD complaint: nausea, diarrhea, abdominal pain -: hour(s) Description of Vomiting: food contents Description of Diarrhea: water, mucous Associated Abdominal Pain: Yes Location: diffuse Radiation: none Severity: mild Severity scale (1-10): 2 Quality: stabbing, aching Consistency: now resolved Improves with: none Worsens with: none Context: sick contacts, recent antibiotic use Associated Symptoms: loss of appetite, nausea/vomiting, weakness - Related Data Home Medications Medication Instructions Recorded Confirmed Atenolol [Tenormin] 50 mg PO DAILY 03/13/16 04/20/19 DULoxetine HCL [Cymbalta] 30 mg PO HS 03/13/16 04/20/19 Furosemide [Lasix] 40 mg PO BID 03/13/16 04/20/19 Isosorbide Mononitrate ER [Imdur] 60 mg PO DAILY 03/13/16 04/20/19 cloNIDine HCL [Catapres] 0.2 mg PO TID 03/13/16 04/20/19 Ergocalciferol [Vitamin D2 50,000 unit PO FR 04/20/19 04/20/19 (DRISDOL)] INSULIN ASPART (NovoLOG) [NovoLOG See Protocol SQ AC-TID 04/20/19 04/20/19 (formulary)] Insulin Glargine [Lantus] 60 unit SQ QAM 04/20/19 04/20/19 Insulin Glargine [Lantus] 100 unit SQ HS 04/20/19 04/20/19 Lisinopril [Zestril] 5 mg PO DAILY 04/20/19 04/20/19 [place]-3 Fatty Acids/Fish Oil [Fish 1 cap PO DAILY 04/20/19 04/20/19 Oil 1,000 mg Softgel] Allergies Allergy/AdvReac Type Severity Reaction Status Date / Time No Known Allergies Allergy Verified 04/24/19 01:01 Review of Systems ROS Statement: Those systems with pertinent positive or pertinent negative responses have been documented in the HPI. ROS Other: All systems not noted in ROS Statement are negative. Past Medical History Past Medical History: Diabetes Mellitus, Hyperlipidemia, Hypertension, Liver Disease, Sleep Apnea/CPAP/BIPAP Additional Past Medical History / Comment(s): ARTHRITIS, kidney stones History of Any Multi-Drug Resistant Organisms: None Reported Past Surgical History: Back Surgery Additional Past Surgical History / Comment(s): MASS REMOVED FROM BACK OF HEAD Past Psychological History: Depression Smoking Status: Never smoker Past Alcohol Use History: None Reported Past Drug Use History: None Reported General Exam Limitations: no limitations General appearance: alert, in no apparent distress Head exam: Present: atraumatic, normocephalic, normal inspection Eye exam: Present: normal appearance, PERRL, EOMI. Absent: scleral icterus, conjunctival injection, periorbital swelling ENT exam: Present: normal exam, mucous membranes moist Neck exam: Present: normal inspection. Absent: tenderness, meningismus, ly mphadenopathy Respiratory exam: Present: normal lung sounds bilaterally. Absent: respiratory distress, wheezes, rales, rhonchi, stridor Cardiovascular Exam: Present: regular rate, normal rhythm, normal heart sounds. Absent: systolic murmur, diastolic murmur, rubs, gallop, clicks GI/Abdominal exam: Present: soft, normal bowel sounds. Absent: distended, tenderness, guarding, rebound, rigid Extremities exam: Present: normal inspection, full ROM, normal capillary refill. Absent: tenderness, pedal edema, joint swelling, calf tenderness Back exam: Present: normal inspection Neurological exam: Present: alert, oriented X3, CN II-XII intact Psychiatric exam: Present: normal affect, normal mood Skin exam: Present: warm, dry, intact, normal color. Absent: rash Course Vital Signs 04/24/19 00:57 Temperature 98.6 F Pulse Rate 69 Respiratory 15 Rate Blood Pressure 173/72 O2 Sat by Pulse 97 Oximetry - Reevaluation(s) Reevaluation #1: 04/24/19 02:54 Medical record and prior inpatient hospitalization or reviewed including lab values Reevaluation #2: 04/24/19 02:54 Laboratory significantly unchanged from prior Reevaluation #3: 04/24/19 02:54 Patient remains without abdominal pain nausea or vomiting Medical Decision Making - Medical Decision Making 73 male the ER with nonspecific abdominal symptoms. Bloating, possible biliary colic history of gallbladder disease, lipase is normal. No abdominal pain currently. Patient can be discharged home - Lab Data Result diagrams: 04/24/19 01:35 04/24/19 01:35 Lab Results 04/24/19 04/24/19 04/24/19 Range/Units 01:35 01:35 01:35 WBC 9.6 (3.8-10.6) k/uL RBC 5.00 (4.30-5.90) m/uL Hgb 14.5 (13.0-17.5) gm/dL Hct 45.0 (39.0-53.0) % MCV 90.0 (80.0-100.0) fL MCH 28.9 (25.0-35.0) pg MCHC 32.1 (31.0-37.0) g/dL RDW 13.7 (11.5-15.5) % Plt Count 270 (150-450) k/uL Neutrophils % 79 % Lymphocytes % 12 % Monocytes % 6 % Eosinophils % 1 % Basophils % 0 % Neutrophils # 7.6 (1.3-7.7) k/uL Lymphocytes # 1.1 (1.0-4.8) k/uL Monocytes # 0.6 (0-1.0) k/uL Eosinophils # 0.1 (0-0.7) k/uL Basophils # 0.0 (0-0.2) k/uL Sodium 136 L (137-145) mmol/L Potassium 3.8 (3.5-5.1) mmol/L Chloride 105 (98-107) mmol/L Carbon Dioxide 27 (22-30) mmol/L Anion Gap 4 mmol/L BUN 15 (9-20) mg/dL Creatinine 1.30 H (0.66-1.25) mg/dL Est GFR (CKD-EPI)AfAm 63 (>60 ml/min/1.73 sqM) Est GFR (CKD-EPI)NonAf 55 (>60 ml/min/1.73 sqM) Glucose 250 H (74-99) mg/dL Plasma Lactic Acid Jens (0.7-2.0) mmol/L Calcium 8.3 L (8.4-10.2) mg/dL Total Bilirubin 1.3 (0.2-1.3) mg/dL AST 113 H (17-59) U/L ALT 101 H (21-72) U/L Alkaline Phosphatase 426 H (38-126) U/L Creatine Kinase 126 (55-170) U/L CK-MB (CK-2) 1.8 (0.0-2.4) ng/mL Total Protein 5.9 L (6.3-8.2) g/dL Albumin 2.9 L (3.5-5.0) g/dL Amylase 43 (30-110) U/L Lipase 163 (23-300) U/L 04/24/19 Range/Units 01:35 WBC (3.8-10.6) k/uL RBC (4.30-5.90) m/uL Hgb (13.0-17.5) gm/dL Hct (39.0-53.0) % MCV (80.0-100.0) fL MCH (25.0-35.0) pg MCHC (31.0-37.0) g/dL RDW (11.5-15.5) % Plt Count (150-450) k/uL Neutrophils % % Lymphocytes % % Monocytes % % Eosinophils % % Basophils % % Neutrophils # (1.3-7.7) k/uL Lymphocytes # (1.0-4.8) k/uL Monocytes # (0-1.0) k/uL Eosinophils # (0-0.7) k/uL Basophils # (0-0.2) k/uL Sodium (137-145) mmol/L Potassium (3.5-5.1) mmol/L Chloride (98-107) mmol/L Carbon Dioxide (22-30) mmol/L Anion Gap mmol/L BUN (9-20) mg/dL Creatinine (0.66-1.25) mg/dL Est GFR (CKD-EPI)AfAm (>60 ml/min/1.73 sqM) Est GFR (CKD-EPI)NonAf (>60 ml/min/1.73 sqM) Glucose (74-99) mg/dL Plasma Lactic Acid Jens 1.2 (0.7-2.0) mmol/L Calcium (8.4-10.2) mg/dL Total Bilirubin (0.2-1.3) mg/dL AST (17-59) U/L ALT (21-72) U/L Alkaline Phosphatase (38-126) U/L Creatine Kinase (55-170) U/L CK-MB (CK-2) (0.0-2.4) ng/mL Total Protein (6.3-8.2) g/dL Albumin (3.5-5.0) g/dL Amylase (30-110) U/L Lipase (23-300) U/L - Radiology Data Radiology results: report reviewed (X-ray abdominal series is chest is negative for acute disease), image reviewed Disposition Clinical Impression: Abdominal pain Disposition: HOME SELF-CARE Condition: Good Instructions (If sedation given, give patient instructions): Abdominal Pain (ED) Is patient prescribed a controlled substance at d/c from ED?: No Referrals: Dennis Santana DO [Primary Care Provider] - 1-2 days
[2019-04-24] MEDS ORDERED: KETOROLAC 30 MG/ML 1 ML VIAL IVP STA (01:15)
[2019-04-24] MEDS ORDERED: SODIUM CHLORIDE 0.9% 1,000 ML IV STA (01:15)
[2019-04-24] MEDS ORDERED: SODIUM CHLORIDE 0.9% 500 ML 500 ML IV STA (01:15)
[2019-04-24] MEDS ORDERED: METOCLOPRAMIDE 5 MG/ML 2 ML VIAL IVP STA (01:17)
[2019-04-24] MEDS ORDERED: diphenhydrAMINE 50 MG/ML 1 ML VIAL IVP STA (01:17)
[2019-04-24 01:50] LABS: Basophils % (A) 0 %; Eosinophils # (A) 0.1 k/uL (0-0.7); Eosinophils % (A) 1 %; HGB 14.5 gm/dL (13.0-17.5); Lymphocytes # (A) 1.1 k/uL (1.0-4.8); Lymphocytes % (A) 12 %; MCH 28.9 pg (25.0-35.0); MCHC 32.1 g/dL (31.0-37.0); Mean Platelet Volume 7.5; Monocytes # (A) 0.6 k/uL (0-1.0); Monocytes % (A) 6 %; Neutrophils # (A) 7.6 k/uL (1.3-7.7); Neutrophils % (A) 79 %; Platelet Count 270 k/uL (150-450); RDW 13.7 % (11.5-15.5); WBC 9.6 k/uL (3.8-10.6)
[2019-04-24 02:12] LABS: Calcium 8.3 mg/dL (8.4-10.2); Total Bilirubin 1.3 mg/dL (0.2-1.3)
[2019-04-24 02:27] LABS: Albumin 2.9 g/dL (3.5-5.0); Potassium 3.8 mmol/L (3.5-5.1); Total Protein 5.9 g/dL (6.3-8.2)
--- NOTE | 2019-04-24 02:28 | XR ---
EXAM: XR Abdomen 2 Views With XR Chest CLINICAL HISTORY: Pain TECHNIQUE: Frontal view of the chest, frontal view of the abdomen/pelvis and upright or decubitus view of the abdomen. COMPARISON: No relevant prior studies available. FINDINGS: Lungs: Unremarkable. No consolidation. Pleural space: Unremarkable. No pneumothorax. Heart: Unremarkable. No cardiomegaly. Mediastinum: Unremarkable. Intraperitoneal space: No free air. Gastrointestinal tract: Unremarkable. No dilation. Bones/joints: Postsurgical changes within the spine. IMPRESSION: No acute findings.
[2019-04-24 03:23] VITALS: BP 136/78; PULSE 65; RESP 18; TEMP 97.9
== END 2019-04-24 03:23 | disposition home or self-care (01) ==
LOC: EC 00:51
DX: R10.9 Unspecified abdominal pain (principal); R11.2 Nausea with vomiting, unspecified; R19.7 Diarrhea, unspecified; R14.0 Abdominal distension (gaseous); R63.0 Anorexia; R53.1 Weakness; E11.9 Type 2 diabetes mellitus without complications; I10 Essential (primary) hypertension; F32.9 Major depressive disorder, single episode, unspecified; G47.30 Sleep apnea, unspecified; Z99.89 Dependence on other enabling machines and devices; Z87.19 Personal history of other diseases of the digestive system; Z87.442 Personal history of urinary calculi; Z79.4 Long term (current) use of insulin; Z79.899 Other long term (current) drug therapy
CPT/HCPCS: 99284; 96374; 96375 ×2; 96361 ×2; 36415; 80053; 82150; 82550; 82553; 83605; 83690; 85025; 74022; J1200; J2765; J1885

== ENCOUNTER 2019-09-09 11:39 | Emergency (ER) | payer MEDICARE ==
[2019-09-09] MEDS ORDERED: MORPHINE SULFATE 4 MG/ML SYRINGE IV STA (12:19)
[2019-09-09] MEDS ORDERED: SODIUM CHLORIDE 0.9% 1,000 ML IV ONE (12:19)
[2019-09-09 12:35] LABS: Basophils # (A) 0.1 k/uL (0-0.2); Basophils % (A) 1 %; Eosinophils # (A) 0.1 k/uL (0-0.7); Eosinophils % (A) 1 %; HCT 46.8 % (39.0-53.0); HGB 15.5 gm/dL (13.0-17.5); Lymphocytes # (A) 1.6 k/uL (1.0-4.8); Lymphocytes % (A) 16 %; MCH 29.7 pg (25.0-35.0); MCHC 33.2 g/dL (31.0-37.0); MCV 89.7 fL (80.0-100.0); Mean Platelet Volume 8.3; Monocytes # (A) 0.4 k/uL (0-1.0); Monocytes % (A) 4 %; Neutrophils # (A) 7.8 k/uL (1.3-7.7); Neutrophils % (A) 78 %; Platelet Count 354 k/uL (150-450); RBC 5.22 m/uL (4.30-5.90); RDW 13.6 % (11.5-15.5); WBC 10.1 k/uL (3.8-10.6)
[2019-09-09 12:43] LABS: Albumin 3.2 g/dL (3.5-5.0); Calcium 8.9 mg/dL (8.4-10.2); Potassium 4.2 mmol/L (3.5-5.1); Total Bilirubin 0.5 mg/dL (0.2-1.3); Total Protein 6.3 g/dL (6.3-8.2)
--- NOTE | 2019-09-09 12:47 | XR ---
EXAMINATION TYPE: XR chest 2V DATE OF EXAM: 09/09/2019 COMPARISON: NONE HISTORY: Fall with subsequent chest pain. TECHNIQUE: Frontal and lateral views of the chest are obtained. FINDINGS: There is no focal air space opacity, pleural effusion, or pneumothorax seen. The cardiac silhouette size is within normal limits. The osseous structures are intact. Mild multilevel degener ative change of the spine. IMPRESSION: No acute cardiopulmonary process.
[2019-09-09 12:49] LABS: INR 0.9 (<1.2); Partial Thromboplastin Time 23.9 sec (22.0-30.0); Prothrombin Time 9.6 sec (9.0-12.0)
--- NOTE | 2019-09-09 13:08 | ED ---
Fall HPI - General Chief Complaint: Fall Stated Complaint: fall-Chest/back pain Time Seen by Provider: 09/09/19 12:06 Source: patient, RN notes reviewed, old records reviewed Mode of arrival: ambulatory - History of Present Illness Initial Comments: This Patient is a 74-year-old male, is unsure if he is on blood thinners. He presents today after falling forward and hitting his head and neck and chest and back. He reports he tripped while walking into his house. He landed on the grass. No loss of conscious. Does complain of some neck pain. Patient states that he returned from an eye doctor visit does have a dilated pupil from getting his eye at work Today. - Related Data Home Medications Medication Instructions Recorded Confirmed Atenolol [Tenormin] 50 mg PO DAILY 03/13/16 04/20/19 DULoxetine HCL [Cymbalta] 30 mg PO HS 03/13/16 04/20/19 Furosemide [Lasix] 40 mg PO BID 03/13/16 04/20/19 Isosorbide Mononitrate ER [Imdur] 60 mg PO DAILY 03/13/16 04/20/19 cloNIDine HCL [Catapres] 0.2 mg PO TID 03/13/16 04/20/19 Ergocalciferol [Vitamin D2 50,000 unit PO FR 04/20/19 04/20/19 (DRISDOL)] INSULIN ASPART (NovoLOG) [NovoLOG See Protocol SQ AC-TID 04/20/19 04/20/19 (formulary)] Insulin Glargine [Lantus] 60 unit SQ QA 04/20/19 04/20/19 Insulin Glargine [Lantus] 100 unit SQ 04/20/19 04/20/19 Lisinopril [Zestril] 5 mg PO DAILY 04/20/19 04/20/19 [place]-3 Fatty Acids/Fish Oil [Fish 1 cap PO DAILY 04/20/19 04/20/19 Oil 1,000 mg Softgel] Previous Rx's Medication Instructions Recorded Cyclobenzaprine [Flexeril] 10 mg PO TID #12 tab 09/09/19 Ibuprofen [Motrin] 600 mg PO Q6HR PRN #20 tab 09/09/19 Allergies Allergy/AdvReac Type Severity Reaction Status Date / Time No Known Allergies Allergy Verified 09/09/19 11:56 Review of Systems ROS Statement: Those systems with pertinent positive or pertinent negative responses have been documented in the HPI. ROS Other: All systems not noted in ROS Statement are negative. Past Medical History Past Medical History: Diabetes Mellitus, Hyperlipidemia, Hypertension, Liver D isease, Sleep Apnea/CPAP/BIPAP Additional Past Medical History / Comment(s): ARTHRITIS, kidney stones History of Any Multi-Drug Resistant Organisms: None Reported Past Surgical History: Back Surgery Additional Past Surgical History / Comment(s): MASS REMOVED FROM BACK OF HEAD Past Psychological History: Depression Smoking Status: Never smoker Past Alcohol Use History: None Reported Past Drug Use History: None Reported General Exam - General Exam Comments Initial Comments: 74-year-old male. Alert and oriented 3. No distress. Limitations: no limitations General appearance: alert, in no apparent distress Head exam: Present: atraumatic, normocephalic, normal inspection Eye exam: Present: normal appearance, PERRL, EOMI, other ( right Eyes dilated.). Absent: scleral icterus, conjunctival injection, periorbital swelling ENT exam: Present: normal exam, mucous membranes moist Neck exam: Present: normal inspection. Absent: tenderness, meningismus, lymphadenopathy Respiratory exam: Present: normal lung sounds bilaterally, other (minimal chest wall tenderness. Bruising onver R chest wall and shoulder. ). Absent: respiratory distress, wheezes, rales, rhonchi, stridor Cardiovascular Exam: Present: regular rate, normal rhythm, normal heart sounds. Absent: systolic murmur, diastolic murmur, rubs, gallop, clicks GI/Abdominal exam: Present: soft, normal bowel sounds. Absent: distended, tenderness, guarding, rebound, rigid Extremities exam: Present: normal inspection, full ROM, normal capillary refill. Absent: tenderness, pedal edema, joint swelling, calf tenderness Back exam: Present: normal inspection Neurological exam: Present: alert, oriented X3, CN II-XII intact Psychiatric exam: Present: normal affect, normal mood Skin exam: Present: warm, dry, intact, normal color. Absent: rash Course Vital Signs 09/09/19 09/09/19 09/09/19 11:54 14:25 15:17 Temperature 98.7 F 98.2 F Pulse Rate 72 74 Respiratory 16 18 Rate Blood Pressure 166/76 177/94 O2 Sat by Pulse 97 96 Oximetry Medical Decision Making - Medical Decision Making 74-year-old male presents after tripping and falling. Complaint is some chest wall discomfort, as well as some neck pain and hitting his head. He was unsure if he is on blood thinners. Patient went down to have a CT. She shows no acute process is evidence of previous lacunar infarct. Patient is no strokes signs or weakness. Patient at this time chest x-ray is normal. Assessment bruising tenderness over his right chest wall and shoulder has full range of motion of the shoulder. I discussed that Patient likely has a muscle strain and spasm. Patient's labs reviewed and unremarkable and EKG is negative for any acute changes. Discussed Patient follow-up with his primary care doctor. Questions were answered. - Lab Data Result diagrams: 09/09/19 12:20 09/09/19 12:20 Lab Results 09/09/19 09/09/19 09/09/19 Range/Units 12:20 12:20 12:20 WBC 10.1 (3.8-10.6) k/uL RBC 5.22 (4.30-5.90) m/uL Hgb 15.5 (13.0-17.5) gm/dL Hct 46.8 (39.0-53.0) % MCV 89.7 (80.0-100.0) fL MCH 29.7 (25.0-35.0) pg MCHC 33.2 (31.0-37.0) g/dL RDW 13.6 (11.5-15.5) % Plt Count 354 (150-450) k/uL Neutrophils % 78 % Lymphocytes % 16 % Monocytes % 4 % Eosinophils % 1 % Basophils % 1 % Neutrophils # 7.8 H (1.3-7.7) k/uL Lymphocytes # 1.6 (1.0-4.8) k/uL Monocytes # 0.4 (0-1.0) k/uL Eosinophils # 0.1 (0-0.7) k/uL Basophils # 0.1 (0-0.2) k/uL PT 9.6 (9.0-12.0) sec INR 0.9 (<1.2) APTT 23.9 (22.0-30.0) sec Sodium 136 L (137-145) mmol/L Potassium 4.2 (3.5-5.1) mmol/L Chloride 104 (98-107) mmol/L Carbon Dioxide 25 (22-30) mmol/L Anion Gap 7 mmol/L BUN 16 (9-20) mg/dL Creatinine 1.51 H (0.66-1.25) mg/dL Est GFR (CKD-EPI)AfAm 53 (>60 ml/min/1.73 sqM) Est GFR (CKD-EPI)NonAf 45 (>60 ml/min/1.73 sqM) Glucose 295 H (74-99) mg/dL Calcium 8.9 (8.4-10.2) mg/dL Total Bilirubin 0.5 (0.2-1.3) mg/dL AST 26 (17-59) U/L ALT 15 (4-49) U/L Alkaline Phosphatase 132 H (38-126) U/L Troponin I (0.000-0.034) ng/mL Total Protein 6.3 (6.3-8.2) g/dL Albumin 3.2 L (3.5-5.0) g/dL 09/09/19 Range/Units 12:20 WBC (3.8-10.6) k/uL RBC (4.30-5.90) m/uL Hgb (13.0-17.5) gm/dL Hct (39.0-53.0) % MCV (80.0-100.0) fL MCH (25.0-35.0) pg MCHC (31.0-37.0) g/dL RDW (11.5-15.5) % Plt Count (150-450) k/uL Neutrophils % % Lymphocytes % % Monocytes % % Eosinophils % % Basophils % % Neutrophils # (1.3-7.7) k/uL Lymphocytes # (1.0-4.8) k/uL Monocytes # (0-1.0) k/uL Eosinophils # (0-0.7) k/uL Basophils # (0-0.2) k/uL PT (9.0-12.0) sec INR (<1.2) APTT (22.0-30.0) sec Sodium (137-145) mmol/L Potassium (3.5-5.1) mmol/L Chloride (98-107) mmol/L Carbon Dioxide (22-30) mmol/L Anion Gap mmol/L BUN (9-20) mg/dL Creatinine (0.66-1.25) mg/dL Est GFR (CKD-EPI)AfAm (>60 ml/min/1.73 sqM) Est GFR (CKD-EPI)NonAf (>60 ml/min/1.73 sqM) Glucose (74-99) mg/dL Calcium (8.4-10.2) mg/dL Total Bilirubin (0.2-1.3) mg/dL AST (17-59) U/L ALT (4-49) U/L Alkaline Phosphatase (38-126) U/L Troponin I <0.012 (0.000-0.034) ng/mL Total Protein (6.3-8.2) g/dL Albumin (3.5-5.0) g/dL - Radiology Data Radiology results: report reviewed X-rays negative for any acute cardiac pulmonary process. CT brain shows chronic appearing white matter ischemic changes. 10 mg prior to age indeterminate worse left basal ganglion. CT C-spine shows mild chronic. Changes in C5-C6. No acute osseous abnormality. Disposition Clinical Impression: Fall, Back strain, Chest wall pain Disposition: HOME SELF-CARE Condition: Good Instructions (If sedation given, give patient instructions): Fall Prevention for Older Adults (ED) Additional Instructions: Please use medication as discussed. Please follow up with family doctor if symptoms have not improved over the next two days. Please return to the emergency room if your symptoms increase or worsen or for any other concerns. Prescriptions: Cyclobenzaprine [Flexeril] 10 mg PO TID #12 tab Ibuprofen [Motrin] 600 mg PO Q6HR PRN #20 tab PRN Reason: Pain Is patient prescribed a controlled substance at d/c from ED?: No Referrals: Dennis Santana DO [Primary Care Provider] - 1-2 days Time of Disposition: 15:11
--- NOTE | 2019-09-09 13:54 | CT ---
EXAMINATION TYPE: CT brain phan patrick DATE OF EXAM: 09/09/2019 COMPARISON: None HISTORY: Fall CT DLP: 1745.6 mGycm, Automated exposure control for dose reduction was used. CONTRAST: Patient injected with 0 mL of Isovue 300. CT of the brain is performed utilizing 3 mm thick sections through the posterior fossa and 3 mm thick sections through the remaining calvarium. Study is performed within 24 hours of arrival to the hospital. No abnormal hyperdensity is present to suggest an acute intracranial hemorrhage. No mass lesion is evident. No acute infarcts are evident. Some mild periventricular white matter hypodensity may be present com patible some chronic appearing white matter ischemic changes. Very tiny lacunar infarct or Virchow-Ro bin space within the inferior lateral left basal ganglion. Ventricles and sulci are appropriate for the patient age. Paranasal sinuses and mastoid air cells within the [id number] are clear. IMPRESSIONS: 1. Chronic appearing white matter ischemic changes. 2. Tiny lacunar infarct of indeterminate age or Virchow-Alvarez space left basal ganglion. CT cervical spine. COMPARISON: None CT of the cervical spine is performed in the axial plane at 2 mm thick sections. Reconstructed image s in the coronal, and sagittal plane are reviewed on the computer. No acute fractures are evident. Vertebral body alignment is normal. There is narrowing of disc heights greatest at C5-6. Note is made of anterior vertebral body spurring C3-C6. Vertebral body heights are preserved. No spinal canal stenosis is evident. Some mild foraminal narrowing due to uncovertebral joint hypertrophy is evident C5-6. IMPRESSIONS: 1. Mild chronic appearing degenerative changes discussed above. C5-6. 2. No acute osseous abnormality.
[2019-09-09 14:26] VITALS: BP 177/94; PULSE 74; RESP 18
[2019-09-09] MEDS ORDERED: ACET/COD 300 MG/30 MG STARTER PACK 6 TAB BTL PO STA (15:11)
[2019-09-09 15:25] VITALS: TEMP 98.2
== END 2019-09-09 15:17 | disposition home or self-care (01) ==
LOC: EC 11:39
DX: S29.012A Strain of muscle and tendon of back wall of thorax, initial encounter (principal); S16.1XXA Strain of muscle, fascia and tendon at neck level, initial encounter; S40.011A Contusion of right shoulder, initial encounter; H57.89 Other specified disorders of eye and adnexa; S09.90XA Unspecified injury of head, initial encounter; E11.9 Type 2 diabetes mellitus without complications; I10 Essential (primary) hypertension; G47.30 Sleep apnea, unspecified; F32.9 Major depressive disorder, single episode, unspecified; Z79.4 Long term (current) use of insulin; Z79.899 Other long term (current) drug therapy; Z99.89 Dependence on other enabling machines and devices; Z98.890 Other specified postprocedural states; W01.0XXA Fall on same level from slipping, tripping and stumbling without subsequent striking against object, initial encounter; Y93.01 Activity, walking, marching and hiking; Y92.009 Unspecified place in unspecified non-institutional (private) residence as the place of occurrence of the external cause
CPT/HCPCS: 36415; 93005; 80053; 84484; 85025; 85610; 85730; 71046; 72125; 70450; 99285; 96374; 96361 ×3; J2270

== ENCOUNTER 2020-05-05 14:22 | Emergency (ER) | payer MEDICARE ==
[2020-05-05] MEDS ORDERED: SODIUM CHLORIDE 0.9% 1,000 ML IV STA (14:31)
[2020-05-05] MEDS ORDERED: SODIUM CHLORIDE 0.9% 500 ML 500 ML IV STA (14:31)
--- NOTE | 2020-05-05 14:33 | ED ---
Weakness HPI - General Stated complaint: Weakness Time Seen by Provider: 05/05/20 14:31 Source: RN notes reviewed, old records reviewed Limitations: no limitations - History of Present Illness Initial comments: This is a 74-year-old male DF for evaluation presents stating evaluation of cause of weakness. Patient states he symptoms of been episodic for 2 weeks with decreased appetite decreased oral intake decreased eating. No abdominal pain no other significant findings MD Complaint: generalized weakness, lack of energy -: week(s) Location: generalized Severity: mild Consistency: constant Improves with: none Worsens with: none Context: recent illness Associated Symptoms: nausea/vomiting - Related Data Home Medications Medication Instructions Recorded Confirmed DULoxetine HCL [Cymbalta] 30 mg PO HS 03/13/16 04/20/19 Furosemide [Lasix] 40 mg PO BID 03/13/16 04/20/19 Isosorbide Mononitrate ER [Imdur] 60 mg PO DAILY 03/13/16 04/20/19 atenoloL [Tenormin] 50 mg PO DAILY 03/13/16 04/20/19 cloNIDine HCL [Catapres] 0.2 mg PO TID 03/13/16 04/20/19 Ergocalciferol [Vitamin D2 50,000 unit PO FR 04/20/19 04/20/19 (DRISDOL)] INSULIN ASPART (NovoLOG) [NovoLOG See Protocol SQ AC-TID 04/20/19 04/20/19 (formulary)] Insulin Glargine [Lantus] 60 unit SQ QAM 04/20/19 04/20/19 Insulin Glargine [Lantus] 100 unit SQ HS 04/20/19 04/20/19 [place]-3 Fatty Acids/Fish Oil [Fish 1 cap PO DAILY 04/20/19 04/20/19 Oil 1,000 mg Softgel] lisinopriL [Zestril] 5 mg PO DAILY 04/20/19 04/20/19 Previous Rx's Medication Instructions Recorded Cyclobenzaprine [Flexeril] 10 mg PO TID #12 tab 09/09/19 Ibuprofen [Motrin] 600 mg PO Q6HR PRN #20 tab 09/09/19 Allergies Allergy/AdvReac Type Severity Reaction Status Date / Time No Known Allergies Allergy Verified 09/09/19 11:56 Review of Systems ROS Statement: Those systems with pertinent positive or pertinent negative responses have been documented in the HPI. ROS Other: All systems not noted in ROS Statement are negative. Past Medical History Past Medical History: Diabetes Mellitus, Hyperlipidemia, Hypertension, Liver Disease, Sleep Apnea/CPAP/BIPAP Additional Past Medical History / Comment(s): ARTHRITIS, kidney stones History of Any Multi-Drug Resistant Organisms: None Reported Past Surgical History: Back Surgery Additional Past Surgical History / Comment(s): MASS REMOVED FROM BACK OF HEAD Past Psychological History: Depression Past Alcohol Use History: None Reported Past Drug Use History: None Reported General Exam General appearance: alert, in no apparent distress Head exam: Present: atraumatic, normocephalic, normal inspection Eye exam: Present: normal appearance, PERRL, EOMI. Absent: scleral icterus, conjunctival injection, periorbital swelling ENT exam: Present: normal exam, mucous membranes moist Neck exam: Present: normal inspection. Absent: tenderness, meningismus, lymphadenopathy Respiratory exam: Present: normal lung sounds bilaterally. Absent: respiratory distress, wheezes, rales, rhonchi, stridor Cardiovascular Exam: Present: regular rate, normal rhythm, normal heart sounds. Absent: systolic murmur, diastolic murmur, rubs, gallop, clicks GI/Abdominal exam: Present: soft, normal bowel sounds. Absent: distended, tenderness, guarding, rebound, rigid Extremities exam: Present: normal inspection, full ROM, normal capillary refill. Absent: tenderness, pedal edema, joint swelling, calf tenderness Back exam: Present: normal inspection Neurological exam: Present: alert, oriented X3, CN II-XII intact Psychiatric exam: Present: normal affect, normal mood Skin exam: Present: warm, dry, intact, normal color. Absent: rash Course Vital Signs 05/05/20 14:28 Temperature 98.2 F Pulse Rate 73 Respiratory 18 Rate Blood Pressure 172/82 O2 Sat by Pulse 98 Oximetry - Reevaluation(s) Reevaluation #1: 05/05/20 14:46 Medical records reviewed Reevaluation #2: 05/05/20 16:22 Patient with no significant change in symptoms acute distress EKG Findings - EKG Comments: EKG Findings:: EKG is sinus rhythm 74. SC 160 QRS 74 QTc 428 Medical Decision Making - Medical Decision Making 71 female DF for evaluation patient with shortness of breath cough weakness no significant cause found here in the ER, patient can be discharged home - Lab Data Result diagrams: 05/05/20 14:44 05/05/20 14:44 Lab Results 05/05/20 05/05/20 05/05/20 Range/Units 14:44 14:44 14:44 WBC 10.4 (3.8-10.6) k/uL RBC 4.86 (4.30-5.90) m/uL Hgb 14.5 (13.0-17.5) gm/dL Hct 44.4 (39.0-53.0) % MCV 91.2 (80.0-100.0) fL MCH 29.8 (25.0-35.0) pg MCHC 32.7 (31.0-37.0) g/dL RDW 13.8 (11.5-15.5) % Plt Count 267 (150-450) k/uL Neutrophils % 79 % Lymphocytes % 13 % Monocytes % 6 % Eosinophils % 1 % Basophils % 0 % Neutrophils # 8.2 H (1.3-7.7) k/uL Lymphocytes # 1.4 (1.0-4.8) k/uL Monocytes # 0.6 (0-1.0) k/uL Eosinophils # 0.1 (0-0.7) k/uL Basophils # 0.0 (0-0.2) k/uL PT 9.4 (9.0-12.0) sec INR 0.9 (<1.2) APTT 25.1 (22.0-30.0) sec Sodium 132 L (137-145) mmol/L Potassium 4.3 (3.5-5.1) mmol/L Chloride 103 (98-107) mmol/L Carbon Dioxide 25 (22-30) mmol/L Anion Gap 4 mmol/L BUN 17 (9-20) mg/dL Creatinine 1.64 H (0.66-1.25) mg/dL Est GFR (CKD-EPI)AfAm 47 (>60 ml/min/1.73 sqM) Est GFR (CKD-EPI)NonAf 41 (>60 ml/min/1.73 sqM) Glucose 203 H (74-99) mg/dL Plasma Lactic Acid Jens (0.7-2.0) mmol/L Calcium 8.0 L (8.4-10.2) mg/dL Phosphorus 3.5 (2.5-4.5) mg/dL Magnesium 1.9 (1.6-2.3) mg/dL Total Bilirubin 0.5 (0.2-1.3) mg/dL AST 24 (17-59) U/L ALT 12 (4-49) U/L Alkaline Phosphatase 135 H (38-126) U/L Creatine Kinase 111 (55-170) U/L Troponin I (0.000-0.034) ng/mL Total Protein 5.7 L (6.3-8.2) g/dL Albumin 2.9 L (3.5-5.0) g/dL TSH 4.940 H (0.465-4.680) mIU/L 05/05/20 05/05/20 Range/Units 14:44 14:44 WBC (3.8-10.6) k/uL RBC (4.30-5.90) m/uL Hgb (13.0-17.5) gm/dL Hct (39.0-53.0) % MCV (80.0-100.0) fL MCH (25.0-35.0) pg MCHC (31.0-37.0) g/dL RDW (11.5-15.5) % Plt Count (150-450) k/uL Neutrophils % % Lymphocytes % % Monocytes % % Eosinophils % % Basophils % % Neutrophils # (1.3-7.7) k/uL Lymphocytes # (1.0-4.8) k/uL Monocytes # (0-1.0) k/uL Eosinophils # (0-0.7) k/uL Basophils # (0-0.2) k/uL PT (9.0-12.0) sec INR (<1.2) APTT (22.0-30.0) sec Sodium (137-145) mmol/L Potassium (3.5-5.1) mmol/L Chloride (98-107) mmol/L Carbon Dioxide (22-30) mmol/L Anion Gap mmol/L BUN (9-20) mg/dL Creatinine (0.66-1.25) mg/dL Est GFR (CKD-EPI)AfAm (>60 ml/min/1.73 sqM) Est GFR (CKD-EPI)NonAf (>60 ml/min/1.73 sqM) Glucose (74-99) mg/dL Plasma Lactic Acid Jens 1.3 (0.7-2.0) mmol/L Calcium (8.4-10.2) mg/dL Phosphorus (2.5-4.5) mg/dL Magnesium (1.6-2.3) mg/dL Total Bilirubin (0.2-1.3) mg/dL AST (17-59) U/L ALT (4-49) U/L Alkaline Phosphatase (38-126) U/L Creatine Kinase (55-170) U/L Troponin I <0.012 (0.000-0.034) ng/mL Total Protein (6.3-8.2) g/dL Albumin (3.5-5.0) g/dL TSH (0.465-4.680) mIU/L - Radiology Data Radiology results: report reviewed (Chest x-rays negative for acute disease), image reviewed Disposition Clinical Impression: Weakness Disposition: HOME SELF-CARE Condition: Fair Instructions (If sedation given, give patient instructions): Weakness (ED) Is patient prescribed a controlled substance at d/c from ED?: No Referrals: Dennis Santana DO [Primary Care Provider] - 1-2 days
[2020-05-05 14:56] LABS: Basophils % (A) 0 %; Eosinophils # (A) 0.1 k/uL (0-0.7); Eosinophils % (A) 1 %; HCT 44.4 % (39.0-53.0); HGB 14.5 gm/dL (13.0-17.5); Lymphocytes # (A) 1.4 k/uL (1.0-4.8); Lymphocytes % (A) 13 %; MCH 29.8 pg (25.0-35.0); MCHC 32.7 g/dL (31.0-37.0); MCV 91.2 fL (80.0-100.0); Mean Platelet Volume 7.6; Monocytes # (A) 0.6 k/uL (0-1.0); Monocytes % (A) 6 %; Neutrophils # (A) 8.2 k/uL (1.3-7.7); Neutrophils % (A) 79 %; Platelet Count 267 k/uL (150-450); RBC 4.86 m/uL (4.30-5.90); RDW 13.8 % (11.5-15.5); WBC 10.4 k/uL (3.8-10.6)
[2020-05-05 15:05] LABS: INR 0.9 (<1.2); Partial Thromboplastin Time 25.1 sec (22.0-30.0); Prothrombin Time 9.4 sec (9.0-12.0)
[2020-05-05 15:07] LABS: Albumin 2.9 g/dL (3.5-5.0); Magnesium 1.9 mg/dL (1.6-2.3); Phosphorus 3.5 mg/dL (2.5-4.5); Potassium 4.3 mmol/L (3.5-5.1); Total Bilirubin 0.5 mg/dL (0.2-1.3); Total Protein 5.7 g/dL (6.3-8.2)
--- NOTE | 2020-05-05 16:03 | XR ---
EXAMINATION TYPE: XR chest 2V DATE OF EXAM: 05/05/2020 COMPARISON: 09/09/2019 HISTORY: Cough. Chest pain TECHNIQUE: 2 views FINDINGS: Heart is normal. There are small calcified granulomata at the pulmonary laxmi. Lungs are mariano ar of infiltrate. There is slight elevated right diaphragm. There are chest leads. Bony thorax is int act. IMPRESSION: No active cardiopulmonary disease. No adverse change. Normal heart.
[2020-05-05 16:35] LABS: Amorphous Sediment,Urine Rare /hpf; Appearance,Urine Clear (Clear); Bacteria,Urine Rare /hpf; Bilirubin,Urine Negative (Negative); Blood,Urine Small (Negative); Color,Urine Light Yellow; Glucose,Urine (UA) 1+ (Negative); Hyaline Casts,Urine 1 /lpf (0-2); Ketones,Urine Negative (Negative); Leukocyte Esterase,Urine Negative (Negative); Mucus,Urine Rare /hpf; Nitrite,Urine Negative (Negative); Protein,Urine 3+ (Negative); RBC,Urine 1 /hpf (0-5); Specific Gravity,Urine 1.008 (1.001-1.035); Squamous Epithelial Cell,Urine <1 /hpf (0-4); Urobilinogen,Urine <2.0 mg/dL (<2.0); WBC,Urine 1 /hpf (0-5)
[2020-05-05 17:11] VITALS: BP 162/79; PULSE 65; RESP 19; TEMP 98.3
== END 2020-05-05 17:11 | disposition home or self-care (01) ==
LOC: EC 14:22
DX: R53.1 Weakness (principal); R06.02 Shortness of breath; R05 Cough; F32.9 Major depressive disorder, single episode, unspecified; R53.83 Other fatigue; E11.9 Type 2 diabetes mellitus without complications; E78.5 Hyperlipidemia, unspecified; I10 Essential (primary) hypertension; G47.30 Sleep apnea, unspecified; Z99.89 Dependence on other enabling machines and devices; Z79.4 Long term (current) use of insulin; Z79.899 Other long term (current) drug therapy
CPT/HCPCS: 36415; 71046; 80053; 81001; 82550; 83605; 83735; 83880; 84100; 84443; 84484; 85025; 85610; 85730; 93005; 96360; 96361; 99285

== ENCOUNTER 2020-07-08 15:22 | Inpatient (IN) | payer MEDICARE ==
[2020-07-08 15:39] LABS: Glucose,Whole Blood 193 mg/dL (75-99)
[2020-07-08] MEDS ORDERED: SODIUM CHLORIDE 0.9% 500 ML 500 ML IV ONE (15:53)
--- NOTE | 2020-07-08 15:56 | ED ---
General Adult HPI - General Chief complaint: Weakness Stated complaint: WEAKNESS Time Seen by Provider: 07/08/20 15:38 Source: patient, family Mode of arrival: ambulatory Limitations: altered mental status - History of Present Illness Initial comments: Patient presents the ED with his daughter for evaluation. Per daughter, the patient's reported to her that the patient has been confused since yesterday morning. Daughter also states that the patient has been complaining of having a headache. Daughter states that the patient's blood glucose level was in the 400s last night, and it is been as low as 54 earlier in the week. Daughter denies reported trauma or head injury. Patient admits to having a headache when asked. History from the patient is otherwise very limited secondary to altered mental status. - Related Data Home Medications Medication Instructions Recorded Confirmed DULoxetine HCL [Cymbalta] 30 mg PO HS 03/13/16 04/20/19 Furosemide [Lasix] 40 mg PO BID 03/13/16 04/20/19 Isosorbide Mononitrate ER [Imdur] 60 mg PO DAILY 03/13/16 04/20/19 atenoloL [Tenormin] 50 mg PO DAILY 03/13/16 04/20/19 cloNIDine HCL [Catapres] 0.2 mg PO TID 03/13/16 04/20/19 Ergocalciferol [Vitamin D2 50,000 unit PO FR 04/20/19 04/20/19 (DRISDOL)] INSULIN ASPART (NovoLOG) [NovoLOG See Protocol SQ AC-TID 04/20/19 04/20/19 (formulary)] Insulin Glargine [Lantus] 60 unit SQ QAM 04/20/19 04/20/19 Insulin Glargine [Lantus] 100 unit SQ HS 04/20/19 04/20/19 [place]-3 Fatty Acids/Fish Oil [Fish 1 cap PO DAILY 04/20/19 04/20/19 Oil 1,000 mg Softgel] lisinopriL [Zestril] 5 mg PO DAILY 04/20/19 04/20/19 Previous Rx's Medication Instructions Recorded Cyclobenzaprine [Flexeril] 10 mg PO TID #12 tab 09/09/19 Ibuprofen [Motrin] 600 mg PO Q6HR PRN #20 tab 09/09/19 Allergies Allergy/AdvReac Type Severity Reaction Status Date / Time No Known Allergies Allergy Verified 07/08/20 15:29 Review of Systems ROS Statement: Those systems with pertinent positive or pertinent negative responses have been documented in the HPI. ROS Other: All systems not noted in ROS Statement are negative. Limitations: ROS unobtainable due to patients medical condition Past Medical History Past Medical History: Diabetes Mellitus, Hyperlipidemia, Hypertension, Liver Disease, Sleep Apnea/CPAP/BIPAP Additional Past Medical History / Comment(s): ARTHRITIS, kidney stones, possible dementia, History of Any Multi-Drug Resistant Organisms: None Reported Past Surgical History: Back Surgery Additional Past Surgical History / Comment(s): MASS REMOVED FROM BACK OF HEAD, eye surgery, Past Psychological History: Depression Smoking Status: Never smoker Past Alcohol Use History: None Reported Past Drug Use History: None Reported General Exam Limitations: altered mental status General appearance: alert Head exam: Present: atraumatic, normocephalic Eye exam: Present: normal appearance, PERRL, EOMI ENT exam: Present: normal oropharynx, mucous membranes moist Neck exam: Present: other (Trachea is in midline). Absent: tenderness, meningismus Respiratory exam: Present: normal lung sounds bilaterally. Absent: respiratory distress, wheezes, rales, rhonchi Cardiovascular Exam: Present: regular rate, normal rhythm, normal heart sounds, other (Normal radial pulses bilaterally) GI/Abdominal exam: Present: soft. Absent: distended, tenderness, guarding Extremities exam: Present: normal inspection. Absent: tenderness, pedal edema, calf tenderness Neurological exam: Present: alert, CN II-XII intact, other (Patient is oriented to person, but not to time or place). Absent: motor sensory deficit Psychiatric exam: Present: normal affect, normal mood Skin exam: Present: warm, dry, intact, normal color Course Vital Signs 07/08/20 07/08/20 07/08/20 15:25 15:36 15:40 Temperature 98.3 F Pulse Rate 60 61 Respiratory 18 20 Rate Blood Pressure 137/68 126/110 O2 Sat by Pulse 100 76 L 99 Oximetry 07/08/20 07/08/20 07/08/20 15:50 16:00 16:20 Temperature Pulse Rate 60 58 L 59 L Respiratory 20 20 20 Rate Blood Pressure 126/110 139/74 144/75 O2 Sat by Pulse 94 L 98 92 L Oximetry 07/08/20 07/08/20 16:30 16:40 Temperature Pulse Rate 59 L 59 L Respiratory 10 L 15 Rate Blood Pressure 142/75 134/77 O2 Sat by Pulse 100 100 Oximetry - Reevaluation(s) Reevaluation #1: 07/08/20 16:58 Case, H&P, test results and ED management were discussed with CALLI Cota. She accepts hospital admission on behalf of herself and Dr. Lyle. She has no further recommendations at this time. 07/08/20 17:07 Patient remains alert and breathing comfortably. Patient's neurological exam is unchanged. Patient and daughter are aware of the patient's test results, and they both agree with hospital admission at this time. EKG Findings - EKG Comments: EKG Findings:: Normal sinus rhythm, ventricular rate of 60 bpm, no ectopy, normal [place] and QRS intervals, normal QT interval, normal axis, lateral limb lead T-wave inversions, no significant change when compared to 05/05/2020 EKG Medical Decision Making - Medical Decision Making I suspect that the patient's symptoms are likely secondary to an acute or subacute CVA. Patient's daughter reports that onset of the patient's symptoms were yesterday morning, and so the patient is out of the window for TPA or neurointervention. Patient was given a dose of aspirin in the ED. CALLI Cota has accepted hospital admission. An order for neurology (Dr. Benítez) consultation was placed. - Lab Data Result diagrams: 07/08/20 15:54 07/08/20 15:54 Lab Results 07/08/20 07/08/20 07/08/20 Range/Units 15:36 15:54 15:54 WBC 9.9 (3.8-10.6) k/uL RBC 4.25 L (4.30-5.90) m/uL Hgb 14.9 (13.0-17.5) gm/dL Hct 39.3 (39.0-53.0) % MCV 92.6 (80.0-100.0) fL MCH 35.1 H (25.0-35.0) pg MCHC 37.9 H (31.0-37.0) g/dL RDW 13.6 (11.5-15.5) % Plt Count 244 (150-450) k/uL Neutrophils % 71 % Lymphocytes % 22 % Monocytes % 4 % Eosinophils % 2 % Basophils % 1 % Neutrophils # 7.0 (1.3-7.7) k/uL Lymphocytes # 2.2 (1.0-4.8) k/uL Monocytes # 0.4 (0-1.0) k/uL Eosinophils # 0.2 (0-0.7) k/uL Basophils # 0.1 (0-0.2) k/uL PT 9.3 (9.0-12.0) sec INR 0.9 (<1.2) APTT 18.5 L (22.0-30.0) sec Sodium (137-145) mmol/L Potassium (3.5-5.1) mmol/L Chloride (98-107) mmol/L Carbon Dioxide (22-30) mmol/L Anion Gap mmol/L BUN (9-20) mg/dL Creatinine (0.66-1.25) mg/dL Est GFR (CKD-EPI)AfAm (>60 ml/min/1.73 sqM) Est GFR (CKD-EPI)NonAf (>60 ml/min/1.73 sqM) Glucose (74-99) mg/dL POC Glucose (mg/dL) 193 H (75-99) mg/dL POC Glu Piercing Specialist ID Tramaine Webb Calcium (8.4-10.2) mg/dL Magnesium (1.6-2.3) mg/dL Total Bilirubin (0.2-1.3) mg/dL AST (17-59) U/L ALT (4-49) U/L Alkaline Phosphatase (38-126) U/L Ammonia (<30) umol/L Troponin I (0.000-0.034) ng/mL Total Protein (6.3-8.2) g/dL Albumin (3.5-5.0) g/dL Serum Alcohol mg/dL Acetone, Qual (Negative) 07/08/20 07/08/20 07/08/20 Range/Units 15:54 15:54 15:56 WBC (3.8-10.6) k/uL RBC (4.30-5.90) m/uL Hgb (13.0-17.5) gm/dL Hct (39.0-53.0) % MCV (80.0-100.0) fL MCH (25.0-35.0) pg MCHC (31.0-37.0) g/dL RDW (11.5-15.5) % Plt Count (150-450) k/uL Neutrophils % % Lymphocytes % % Monocytes % % Eosinophils % % Basophils % % Neutrophils # (1.3-7.7) k/uL Lymphocytes # (1.0-4.8) k/uL Monocytes # (0-1.0) k/uL Eosinophils # (0-0.7) k/uL Basophils # (0-0.2) k/uL PT (9.0-12.0) sec INR (<1.2) APTT (22.0-30.0) sec Sodium 133 L (137-145) mmol/L Potassium 4.8 (3.5-5.1) mmol/L Chloride 106 (98-107) mmol/L Carbon Dioxide 22 (22-30) mmol/L Anion Gap 5 mmol/L BUN 20 (9-20) mg/dL Creatinine 2.04 H (0.66-1.25) mg/dL Est GFR (CKD-EPI)AfAm 36 (>60 ml/min/1.73 sqM) Est GFR (CKD-EPI)NonAf 32 (>60 ml/min/1.73 sqM) Glucose 206 H (74-99) mg/dL POC Glucose (mg/dL) (75-99) mg/dL POC Glu Piercing Specialist ID Calcium 8.7 (8.4-10.2) mg/dL Magnesium 2.0 (1.6-2.3) mg/dL Total Bilirubin 0.5 (0.2-1.3) mg/dL AST 28 (17-59) U/L ALT 12 (4-49) U/L Alkaline Phosphatase 121 (38-126) U/L Ammonia 27 (<30) umol/L Troponin I <0.012 (0.000-0.034) ng/mL Total Protein 6.0 L (6.3-8.2) g/dL Albumin 3.0 L (3.5-5.0) g/dL Serum Alcohol <10 mg/dL Acetone, Qual Negative (Negative) - Radiology Data Radiology results: report reviewed (Noncontrast CT head report: Hypodensity in left posterior parietal lobe white matter that measures approximately 3 cm and consistent with subacute or acute infarct, this appears new compared to old exam, mild sphenoid sinusitis), image reviewed (Chest x-ray is negative) Disposition Clinical Impression: Altered mental status, CVA (cerebral vascular accident), Renal insufficiency Disposition: ADMITTED IP TO THIS [facility] Condition: Stable Is patient prescribed a controlled substance at d/c from ED?: No Referrals: Dennis Santana DO [Primary Care Provider] - 1-2 days Time of Disposition: 17:07
[2020-07-08 16:04] LABS: Basophils # (A) 0.1 k/uL (0-0.2); Basophils % (A) 1 %; Eosinophils # (A) 0.2 k/uL (0-0.7); Eosinophils % (A) 2 %; HCT 39.3 % (39.0-53.0); HGB 14.9 gm/dL (13.0-17.5); Lymphocytes # (A) 2.2 k/uL (1.0-4.8); Lymphocytes % (A) 22 %; MCH 35.1 pg (25.0-35.0); MCHC 37.9 g/dL (31.0-37.0); MCV 92.6 fL (80.0-100.0); Monocytes # (A) 0.4 k/uL (0-1.0); Monocytes % (A) 4 %; Neutrophils % (A) 71 %; Platelet Count 244 k/uL (150-450); RBC 4.25 m/uL (4.30-5.90); RDW 13.6 % (11.5-15.5); WBC 9.9 k/uL (3.8-10.6)
--- NOTE | 2020-07-08 16:14 | XR ---
EXAMINATION TYPE: XR chest 1V portable DATE OF EXAM: 07/08/2020 COMPARISON: 05/05/2020 HISTORY: Altered mental status TECHNIQUE: FINDINGS: Heart is normal. Lungs are clear of consolidation. There are no hilar masses. IMPRESSION: No active cardiopulmonary disease. No change.
--- NOTE | 2020-07-08 16:17 | CT ---
EXAMINATION TYPE: CT brain wo con DATE OF EXAM: 07/08/2020 COMPARISON: 09/09/2019 HISTORY: ams CT DLP: 1068.4 mGycm Automated exposure control for dose reduction was used. There is mild cerebral atrophy. There is no mass effect nor midline shift. There is no sign of intrac ranial hemorrhage. There is some white matter hypodensity left posterior parietal lobe. The calvarium is intact. Skull base is intact. There is some mucosal thickening right side of the sphenoid sinus. IMPRESSION: There is hypodensity left posterior parietal lobe white matter that measures approximately 3 cm and c onsistent with subacute or acute infarct. This appears new compared to old exam. Mild sphenoid sinusi tis appears new compared to old exam.
[2020-07-08 16:19] LABS: ALT 12 U/L (4-49); AST 28 U/L (17-59); African American GFR (CKD) 36 (>60 ml/min/1.73 sqM); Alcohol <10 mg/dL; Alkaline Phosphatase 121 U/L (38-126); Anion Gap 5 mmol/L; Blood Urea Nitrogen 20 mg/dL (9-20); Calcium 8.7 mg/dL (8.4-10.2); Carbon Dioxide 22 mmol/L (22-30); Chloride 106 mmol/L (98-107); Glucose 206 mg/dL (74-99); Non-African American GFR(CKD) 32 (>60 ml/min/1.73 sqM); Potassium 4.8 mmol/L (3.5-5.1); Sodium 133 mmol/L (137-145); Total Bilirubin 0.5 mg/dL (0.2-1.3)
[2020-07-08 16:21] LABS: INR 0.9 (<1.2); Prothrombin Time 9.3 sec (9.0-12.0)
[2020-07-08 16:22] LABS: Partial Thromboplastin Time 18.5 sec (22.0-30.0)
[2020-07-08] MEDS ORDERED: ASPIRIN 81 MG PO STA (16:58)
[2020-07-08 21:33] LABS: Appearance,Urine Clear (Clear); Bacteria,Urine Rare /hpf; Bilirubin,Urine Negative (Negative); Blood,Urine Trace (Negative); Color,Urine Yellow; Glucose,Urine (UA) 2+ (Negative); Granular Casts,Urine 29 /lpf (0); Hyaline Casts,Urine 5 /lpf (0-2); Ketones,Urine Negative (Negative); Leukocyte Esterase,Urine Negative (Negative); Mucus,Urine Rare /hpf; Nitrite,Urine Negative (Negative); Protein,Urine 3+ (Negative); RBC,Urine 1 /hpf (0-5); Specific Gravity,Urine 1.015 (1.001-1.035); Squamous Epithelial Cell,Urine <1 /hpf (0-4); Urobilinogen,Urine <2.0 mg/dL (<2.0); WBC,Urine 1 /hpf (0-5)
[2020-07-08 21:34] LABS: Glucose,Whole Blood 164 mg/dL (75-99)
[2020-07-08 21:44] LABS: Amphetamine Screen,Urine Not Detected (NotDetected); Barbiturate Screen,Urine Not Detected (NotDetected); Benzodiazepines Screen,Urine Not Detected (NotDetected); Cocaine Screen,Urine Not Detected (NotDetected); Methadone Screen, Urine Not Detected (NotDetected); Opiate Screen,Urine Detected (NotDetected); Oxycodone Screen, Urine Not Detected (NotDetected); Phencyclidine Screen,Urine Not Detected (NotDetected); Tricyclic Antidepressant,Urine Not Detected (NotDetected); Urn Cannabinoid Scrn Not Detected (NotDetected)
[2020-07-08 22:20] LABS: Cholesterol 231 mg/dL (<200); HDL Cholesterol 34 mg/dL (40-60); LDL Cholesterol,Calculated 143 mg/dL (0-99); Triglycerides 270 mg/dL (<150)
[2020-07-08] MEDS: INSULIN ASPART (NovoLOG) 100 UNIT/ML VIAL SQ SCH (22:28)
[2020-07-09] MEDS: SODIUM CHLORIDE 0.9% 1,000 ML IV SCH ×3 (00:05→17:51)
[2020-07-09] MEDS: hydrALAZINE HCL 20 MG/ML 1 ML VIAL IVP PRN ×2 (02:41→09:01)
[2020-07-09 06:27] LABS: Glucose,Whole Blood 185 mg/dL (75-99)
[2020-07-09] MEDS: INSULIN ASPART (NovoLOG) 100 UNIT/ML VIAL SQ SCH ×4 (06:31→20:52)
[2020-07-09] MEDS: ACETAMINOPHEN TAB 325 MG TAB PO PRN (10:10)
[2020-07-09] MEDS ORDERED: ALBUTEROL NEBULIZED 2.5 MG/3 ML INHALATION PRN (10:38)
--- NOTE | 2020-07-09 11:20 | P.HPIM ---
History of Present Illness 74-year-old pleasant male who was admitted because of confusion patient is a poor historian because of the language barrier I'm unable to get the real accurate history from either. Patient appears to have a mixed aphasia probably motor aphasia. Patient had a CT of the head which showed left posterior parietal lobe infarct which appeared to be subacute infarct. Patient is on Lasix unsure why he is on Lasix. Patient is bit hyponatremic him holding his Lasix patient apparently has fluctuating blood sugars. I'll obtain a carotid Doppler, patient has elevated bili and patient will be started on a statin patient is already in aspirin. Review of Systems Other review of systems is negative except those mentioned above in HPI. Past Medical History Past Medical History: Diabetes Mellitus, Hyperlipidemia, Hypertension, Liver Disease, Sleep Apnea/CPAP/BIPAP Additional Past Medical History / Comment(s): ARTHRITIS, kidney stones, possible dementia, kidney failure History of Any Multi-Drug Resistant Organisms: None Reported Past Surgical History: Back Surgery Additional Past Surgical History / Comment(s): MASS REMOVED FROM BACK OF HEAD, eye surgery, Past Anesthesia/Blood Transfusion Reactions: No Reported Reaction Past Psychological History: Depression Smoking Status: Never smoker Past Alcohol Use History: None Reported Past Drug Use History: None Reported - Past Family History Father Family Medical History: Diabetes Mellitus Mother Family Medical History: Diabetes Mellitus Brother(s) Family Medical History: Cancer Sister(s) Family Medical History: Cancer Medications and Allergies Home Medications Medication Instructions Recorded Confirmed Type DULoxetine HCL [Cymbalta] 30 mg PO DAILY 03/13/16 07/08/20 History Furosemide [Lasix] 40 mg PO BID 03/13/16 07/08/20 History Isosorbide Mononitrate ER [Imdur] 60 mg PO DAILY 03/13/16 07/08/20 History atenoloL [Tenormin] 50 mg PO DAILY 03/13/16 07/08/20 History cloNIDine HCL [Catapres] 0.2 mg PO TID 03/13/16 07/08/20 History Ergocalciferol [Vitamin D2 50,000 unit PO FR 04/20/19 07/08/20 History (DRISDOL)] INSULIN ASPART (NovoLOG) [NovoLOG See Protocol SQ AC-TID 04/20/19 07/08/20 History (formulary)] Insulin Glargine [Lantus] 60 unit SQ BID 04/20/19 07/08/20 History Albuterol Nebulized [Ventolin 2.5 mg INHALATION RT-QID PRN 07/08/20 07/08/20 History Nebulized] Losartan [Cozaar] 50 mg PO HS 07/08/20 07/08/20 History Omeprazole 20 mg PO DAILY 07/08/20 07/08/20 History Allergies Allergy/AdvReac Type Severity Reaction Status Date / Time No Known Allergies Allergy Verified 07/08/20 17:39 Physical Exam Vitals: Vital Signs Temp Pulse Pulse Resp BP BP Pulse Ox 07/09/20 04:00 98.0 F 58 L 16 162/69 100 07/09/20 03:13 58 L 163/52 07/09/20 03:00 174/70 07/09/20 02:34 191/79 07/09/20 00:00 98.0 F 66 16 184/76 100 07/08/20 20:00 98.1 F 60 16 164/75 99 07/08/20 19:04 98.0 F 58 L 16 134/53 98 07/08/20 19:00 59 L 15 147/78 100 07/08/20 18:50 57 L 18 147/80 99 07/08/20 18:40 60 20 154/92 99 07/08/20 18:20 64 11 L 138/77 100 07/08/20 18:10 59 L 10 L 124/60 99 07/08/20 18:00 58 L 10 L 130/65 99 07/08/20 17:50 59 L 17 144/63 99 07/08/20 17:40 58 L 18 135/75 100 07/08/20 17:34 98.1 F 60 16 164/75 99 07/08/20 17:30 59 L 16 146/84 100 07/08/20 17:20 60 14 165/87 99 07/08/20 17:10 59 L 18 162/82 98 07/08/20 17:00 59 L 20 128/72 99 07/08/20 16:50 58 L 18 136/75 100 07/08/20 16:40 59 L 15 134/77 100 07/08/20 16:30 59 L 10 L 142/75 100 07/08/20 16:20 59 L 20 144/75 92 L 10/11/20 16:00 58 L 20 139/74 98 07/08/20 15:50 60 20 126/110 94 L 07/08/20 15:40 61 20 126/110 99 07/08/20 15:36 76 L 07/08/20 15:25 98.3 F 60 18 137/68 100 Intake and Output 07/08/20 07/09/20 07/09/20 22:59 06:59 14:59 Output Total 300 400 Balance -300 -400 Output: Urine 300 400 Other: Voiding Method Urinal Urinal Diaper Diaper # Voids 1 Weight 108.862 kg 86 kg PHYSICAL EXAMINATION: GENERAL: The patient is alert and oriented x1-2, not in any acute distress. Well developed, well nourished. HEENT: Pupils are round and equally reacting to light. EOMI. No scleral icterus. No conjunctival pallor. Normocephalic, atraumatic. No pharyngeal erythema. No thyromegaly. CARDIOVASCULAR: S1 and S2 present. No murmurs, rubs, or gallops. PULMONARY: Chest is clear to auscultation, no wheezing or crackles. ABDOMEN: Soft, nontender, nondistended, normoactive bowel sounds. No palpable organomegaly. MUSCULOSKELETAL: No joint swelling or deformity. EXTREMITIES: No cyanosis, clubbing, or pedal edema. NEUROLOGICAL: Gross neurological examination did not reveal any focal deficits except for some mild motor aphasia. SKIN: No rashes. Results CBC & Chem 7: 07/08/20 15:54 07/08/20 15:54 Labs: Abnormal Lab Results - Last 24 Hours (Table) 07/08/20 07/08/20 07/08/20 Range/Units 15:36 15:54 15:54 RBC 4.25 L (4.30-5.90) m/uL MCH 35.1 H (25.0-35.0) pg MCHC 37.9 H (31.0-37.0) g/dL APTT 18.5 L (22.0-30.0) sec Sodium (137-145) mmol/L Creatinine (0.66-1.25) mg/dL Glucose (74-99) mg/dL POC Glucose (mg/dL) 193 H (75-99) mg/dL Total Protein (6.3-8.2) g/dL Albumin (3.5-5.0) g/dL Triglycerides (<150) mg/dL Cholesterol (<200) mg/dL LDL Cholesterol, Calc (0-99) mg/dL HDL Cholesterol (40-60) mg/dL Urine Protein (Negative) Urine Glucose (UA) (Negative) Urine Blood (Negative) Urine Bacteria (None) /hpf Hyaline Casts (0-2) /lpf Urine Mucus (None) /hpf Urine Opiates Screen (NotDetected) 07/08/20 07/08/20 07/08/20 Range/Units 15:54 15:54 15:54 RBC (4.30-5.90) m/uL MCH (25.0-35.0) pg MCHC (31.0-37.0) g/dL APTT (22.0-30.0) sec Sodium 133 L (137-145) mmol/L Creatinine 2.04 H (0.66-1.25) mg/dL Glucose 206 H (74-99) mg/dL POC Glucose (mg/dL) (75-99) mg/dL Total Protein 6.0 L (6.3-8.2) g/dL Albumin 3.0 L (3.5-5.0) g/dL Triglycerides 270 H (<150) mg/dL Cholesterol 231 H (<200) mg/dL LDL Cholesterol, Calc 143 H (0-99) mg/dL HDL Cholesterol 34 L (40-60) mg/dL Urine Protein 3+ H (Negative) Urine Glucose (UA) 2+ H (Negative) Urine Blood Trace H (Negative) Urine Bacteria Rare H (None) /hpf Hyaline Casts 5 H (0-2) /lpf Urine Mucus Rare H (None) /hpf Urine Opiates Screen Detected H (NotDetected) 07/08/20 07/09/20 Range/Units 21:11 06:17 RBC (4.30-5.90) m/uL MCH (25.0-35.0) pg MCHC (31.0-37.0) g/dL APTT (22.0-30.0) sec Sodium (137-145) mmol/L Creatinine (0.66-1.25) mg/dL Glucose (74-99) mg/dL POC Glucose (mg/dL) 164 H 185 H (75-99) mg/dL Total Protein (6.3-8.2) g/dL Albumin (3.5-5.0) g/dL Triglycerides (<150) mg/dL Cholesterol (<200) mg/dL LDL Cholesterol, Calc (0-99) mg/dL HDL Cholesterol (40-60) mg/dL Urine Protein (Negative) Urine Glucose (UA) (Negative) Urine Blood (Negative) Urine Bacteria (None) /hpf Hyaline Casts (0-2) /lpf Urine Mucus (None) /hpf Urine Opiates Screen (NotDetected) Thrombosis Risk Factor Assmnt - Choose All That Apply Each Factor Represents 1 point: Medical pt on bed rest, Obesity (BMI >25) Other Risk Factors: Yes Each Risk Factor Represents 2 Points: Age 61-74 years Thrombosis Risk Factor Assessment Total Risk Factor Score: 4 Thrombosis Risk Factor Assessment Level: Moderate Risk Assessment and Plan Plan: -Acute cerebral vascular accident involving the left parietal lobe, most ischemic origin as it brought her directly patient will be continued on aspirin and statin as mentioned above. Speech therapy evaluated the patient and patient was started on CHOP diet and physical therapy and occupational therapy will evaluate the patient along with neurology. Echocardiogram will be obtained as well -Acute renal failure on chronic kidney disease stage III patient has diabetic nephropathy patient will be continued on IV fluids and repeat basic metabolic profile again tomorrow -Hyperlipidemia -Depression -Hypertension because of acute renal failure I'll hold off losartan and rest of the medications will be continued DVT prophylaxis: Heparin subcutaneous
--- NOTE | 2020-07-09 11:32 | US ---
EXAMINATION TYPE: US carotid duplex BILAT DATE OF EXAM: 07/09/2020 COMPARISON: NONE CLINICAL HISTORY: 74-year-old male CVA. TECHNIQUE: Carotid duplex ultrasound examination. Indirect Doppler criteria was utilized. FINDINGS: EXAM MEASUREMENTS: RIGHT: Peak Systolic Velocity (PSV) cm/sec ----- Right CCA: 70.3 ----- Right ICA: 122.1 ----- Right ECA: 205.2 ICA/CCA ratio: 1.7 RIGHT: End Diastole cm/sec ----- Right CCA: 14.2 ----- Right ICA: 26.8 ----- Right ECA: 15.6 LEFT: Peak Systolic Velocity (PSV) cm/sec ----- Left CCA: 82.0 ----- Left ICA: 101.7 ----- Left ECA: 154.7 ICA/CCA ratio: 1.2 LEFT: End Diastole cm/sec ----- Left CCA: 8.4 ----- Left ICA: 0.0 ----- Left ECA: 0.0 VERTEBRALS (direction of flow): Right Vertebral: Antegrade Left Vertebral: Antegrade Rhythm: Normal Thermostat Maker notes: Technically difficult, short thick neck. No significant velocity increases seen in bilateral ICA's. ECA's show mild velocity increase. IMPRESSION: No hemodynamically significant internal carotid artery stenosis on either side. Criteria for Assigning % of Stenosis / Diameter reduction (Estimation based on the indirect measurements of the internal carotid artery velocities (ICA PSV). 1. Normal (no stenosis)=ICA PSV < 125 cm/s: ratio < 2.0: ICA EDV<40 cm/s. 2. Less than 50% stenosis=ICA PSV < 125 cm/s: ratio < 2.0: ICA EDV<40 cm/s. 3. 50 to 69% stenosis=ICA PSV of 125 to 230 cm/s: ration 2.0 ? 4.0: ICA EDV 40-100 cm/s. 4. Greater than 70% stenosis to near occlusion= ICA PSV > 230 cm/s: ratio > 4.0: ICA EDV > 100 cm/s. 5. Near occlusion= ICA PSV velocities may be low or undetectable: variable ratio and ICA EDV. 6. Total occlusion=unable to detect flow.
[2020-07-09 12:00] LABS: Glucose,Whole Blood 255 mg/dL (75-99)
[2020-07-09] MEDS: cloNIDine HCL 0.2 MG TAB PO SCH ×3 (13:36→23:24)
[2020-07-09] MEDS: atenoloL 50 MG TAB PO SCH (13:36)
--- NOTE | 2020-07-09 14:57 | P.CNNES ---
History of Present Illness Consult date: 07/09/20 Requesting physician: Benedicto Alcantar Reason for Consult: Acute or subacute CVA History of Present Illness: Patient is a 74-year-old male came to the hospital yesterday at 3:30 PM for episode of confusion since Thursday morning (the day prior to admission). Patient's daughter was present, who provided most of the history. She states that on Thursday, 2 days prior to arrival, in the evening he was noted to be forgetful, and they felt it was diabetes, and perhaps some degree of dementia. On Thursday, he was more forgetful, slightly confused not able to pay the bills. His blood sugars were up. He was not able to check blood sugar which she always has done. On Thursday he was also disoriented, not eating. He started having problems with speaking, forgetting what he was trying to say. No slurring of speech. Complaining of frontal headache. Yesterday at around 10:30 AM he was noted to have difficulty with walking right-sided weakness, drooping of the right side of the face. Hard time balancing. Patient's daughter has noticed that his blood sugar has been running as low as 54 to as high as 400. Patient came to the ER at 3:30 PM. Vital signs on arrival was blood pressure 137/68, pulse rate 60 temperature 98.3 blood pressure did go up to 126/110. Computed tomography scan of head showed hypodensity left posterior parietal lobe with white matter that measures approximately 3 cm and consistent with subacute or acute infarct. This appears new compared to old exam. Mild sphenoid sinusitis appears new compared to old exam. Carotid Doppler showed no hemodynamically significant stenosis of the ICA on either side. EKG shows normal sinus rhythm, T-wave abnormality, consider lateral ischemia. Chest x-ray normal with no acute cardiopulmonary disease. Patient's blood test shows W be seen in 0.9 hemoglobin 14.9, platelets 244. INR is 0.9, sodium 133 potassium 4.8, BUN 20, creatinine 2.04. Cholesterol 231, LDL 143, HDL 34, triglycerides 270. Urine positive for opiate. Blood alcohol level negative. Acetone negative. Patient's previous hemoglobin A1c 7.6 on 11/09/2017. No history of head trauma or injury. Patient has history of diabetes for 30 years, hypertension, never smoked. In young age he used to drink a lot. Patient does not take any aspirin or other antiplatelet medication. He does take some vitamins and fish oil. Blood sugar has been running very erratic. Patient's daughter states that he had history of "mini stroke" years ago. Patient's daughter also mentions that he has been having memory issues for the last couple months. Review of Systems As above in detail. Denies any chest pain, shortness of breath denies any nausea vomiting abdominal pain. Patient has baseline significantly decreased vision in the left eye, gets shots in the eye by his staff physician. All other review of systems unremarkable. He has problems with gait. Past Medical History Past Medical History: Diabetes Mellitus, Hyperlipidemia, Hypertension, Liver Disease, Sleep Apnea/CPAP/BIPAP Additional Past Medical History / Comment(s): ARTHRITIS, kidney stones, possible dementia, kidney failure History of Any Multi-Drug Resistant Organisms: None Reported Past Surgical History: Back Surgery Additional Past Surgical History / Comment(s): MASS REMOVED FROM BACK OF HEAD, eye surgery, Past Anesthesia/Blood Transfusion Reactions: No Reported Reaction Past Psychological History: Depression Smoking Status: Never smoker Past Alcohol Use History: None Reported Past Drug Use History: None Reported - Past Family History Father Family Medical History: Diabetes Mellitus Mother Family Medical History: Diabetes Mellitus Brother(s) Family Medical History: Cancer Sister(s) Family Medical History: Cancer Medications and Allergies Home Medications Medication Instructions Recorded Confirmed Type DULoxetine HCL [Cymbalta] 30 mg PO DAILY 03/13/16 07/08/20 History Furosemide [Lasix] 40 mg PO BID 03/13/16 07/08/20 History Isosorbide Mononitrate ER [Imdur] 60 mg PO DAILY 03/13/16 07/08/20 History atenoloL [Tenormin] 50 mg PO DAILY 03/13/16 07/08/20 History cloNIDine HCL [Catapres] 0.2 mg PO TID 03/13/16 07/08/20 History Ergocalciferol [Vitamin D2 50,000 unit PO FR 04/20/19 07/08/20 History (DRISDOL)] INSULIN ASPART (NovoLOG) [NovoLOG See Protocol SQ AC-TID 04/20/19 07/08/20 History (formulary)] Insulin Glargine [Lantus] 60 unit SQ BID 04/20/19 07/08/20 History Albuterol Nebulized [Ventolin 2.5 mg INHALATION RT-QID PRN 07/08/20 07/08/20 History Nebulized] Losartan [Cozaar] 50 mg PO HS 07/08/20 07/08/20 History Omeprazole 20 mg PO DAILY 07/08/20 07/08/20 History Allergies Allergy/AdvReac Type Severity Reaction Status Date / Time No Known Allergies Allergy Verified 07/08/20 17:39 Physical Examination - Vital Signs Vital Signs: Vital Signs Temp Pulse Pulse Resp BP BP Pulse Ox 07/09/20 04:00 98.0 F 58 L 16 162/69 100 07/09/20 03:13 58 L 163/52 07/09/20 03:00 174/70 07/09/20 02:34 191/79 07/09/20 00:00 98.0 F 66 16 184/76 100 07/08/20 20:00 98.1 F 60 16 164/75 99 07/08/20 19:04 98.0 F 58 L 16 134/53 98 07/08/20 19:00 59 L 15 147/78 100 07/08/20 18:50 57 L 18 147/80 99 07/08/20 18:40 60 20 154/92 99 07/08/20 18:20 64 11 L 138/77 100 07/08/20 18:10 59 L 10 L 124/60 99 07/08/20 18:00 58 L 10 L 130/65 99 07/08/20 17:50 59 L 17 144/63 99 07/08/20 17:40 58 L 18 135/75 100 07/08/20 17:34 98.1 F 60 16 164/75 99 07/08/20 17:30 59 L 16 146/84 100 07/08/20 17:20 60 14 165/87 99 07/08/20 17:10 59 L 18 162/82 98 07/08/20 17:00 59 L 20 128/72 99 07/08/20 16:50 58 L 18 136/75 100 07/08/20 16:40 59 L 15 134/77 100 07/08/20 16:30 59 L 10 L 142/75 100 07/08/20 16:20 59 L 20 144/75 92 L 07/08/20 16:00 58 L 20 139/74 98 07/08/20 15:50 60 20 126/110 94 L 07/08/20 15:40 61 20 126/110 99 07/08/20 15:36 76 L 07/08/20 15:25 98.3 F 60 18 137/68 100 Intake and Output 07/08/20 07/09/20 07/09/20 22:59 06:59 14:59 Output Total 300 400 Balance -300 -400 Output: Urine 300 400 Other: Voiding Method Urinal Urinal Diaper Diaper # Voids 1 Weight 108.862 kg 86 kg On examination patient is an elderly male, laying comfortably in the bed in no distress. He is awake, somewhat alert but has very slow mentation, very prolonged latency to answer question. Patient is very disoriented, does not know current month, current year, his date of age or the current president. He knows his name and his daughter's name. Patient has significant difficulty with naming objects, could not name thumb, eyeglasses, or ring. Patient has some difficulty repeating. No slurring. On cranial nerve examination his right pupil is larger than the left both are reactive. Visual calzada reveals some peripheral visual field deficits, difficult to assess due to his underlying retinopathy and his level of response due to confusion. Face is symmetric and tongue protrudes the midline. Hearing is decreased. Shoulder shrug normal. On muscle strength testing, there is no pronator drift and the strength is normal in arms and legs distally and proximally reflexes are very hypoactive and plantars are downgoing. Sensory touch is equal. No ataxia for [id number] testing tone and bulk of muscles normal. Mild peripheral edema. S1 and S2 audible. Chest is clear. Abdomen soft nontender. Results - Laboratory Findings CBC and BMP: 07/08/20 15:54 07/08/20 15:54 Abnormal Lab Findings: Abnormal Labs 07/08/20 07/08/20 07/08/20 15:36 15:54 15:54 RBC 4.25 L MCH 35.1 H MCHC 37.9 H APTT 18.5 L Sodium Creatinine Glucose POC Glucose (mg/dL) 193 H Total Protein Albumin Triglycerides Cholesterol LDL Cholesterol, Calc HDL Cholesterol Urine Protein Urine Glucose (UA) Urine Blood Urine Bacteria Hyaline Casts Urine Mucus Urine Opiates Screen 07/08/20 07/08/20 07/08/20 15:54 15:54 15:54 RBC MCH MCHC APTT Sodium 133 L Creatinine 2.04 H Glucose 206 H POC Glucose (mg/dL) Total Protein 6.0 L Albumin 3.0 L Triglycerides 270 H Cholesterol 231 H LDL Cholesterol, Calc 143 H HDL Cholesterol 34 L Urine Protein 3+ H Urine Glucose (UA) 2+ H Urine Blood Trace H Urine Bacteria Rare H Hyaline Casts 5 H Urine Mucus Rare H Urine Opiates Screen Detected H 07/08/20 07/09/20 07/09/20 21:11 06:17 11:58 RBC MCH MCHC APTT Sodium Creatinine Glucose POC Glucose (mg/dL) 164 H 185 H 255 H Total Protein Albumin Triglycerides Cholesterol LDL Cholesterol, Calc HDL Cholesterol Urine Protein Urine Glucose (UA) Urine Blood Urine Bacteria Hyaline Casts Urine Mucus Urine Opiates Screen Assessment and Plan Assessment: * Possible CVA, left hemispheric region, with speech difficulty and subjective right-sided weakness. Examination reveals significant cognitive impairment, anomia and some visual field deficits, which could be related to his previous retinal issues. Uncertain if recent or subacute stroke. * Probable mild metabolic encephalopathy likely due to reasons mentioned below. * Diabetes, poorly controlled * Acute on chronic renal insufficiency * Hypertension * Hyperlipidemia * Cognitive impairment. Plan: * Patient has presented with possible CVA. We will check MRI of the brain to evaluate for acute stroke, MRA of the head to rule out any intracranial atherosclerotic disease or aneurysm. * Carotid Doppler showed no significant stenosis. * Await 2-D echo to rule out embolic source. * Patient has received 324 mg aspirin yesterday. We will continue Aspirin 325 mg daily. * High-dose statins for hyperlipidemia. * Hemoglobin A1c. * B12, folate, TSH. * Discussed with patient's family in detail.
[2020-07-09] MEDS: PANTOPRAZOLE 40 MG TABLET PO SCH (15:03)
[2020-07-09 17:02] LABS: Glucose,Whole Blood 243 mg/dL (75-99)
[2020-07-09] MEDS: HEPARIN SODIUM,PORCINE 5,000 UNIT/ML 1 ML VIAL SQ SCH ×2 (17:38→23:24)
[2020-07-09] MEDS: ASPIRIN 325 MG TAB PO SCH (17:38)
[2020-07-09 17:42] LABS: Hemoglobin A1C 8.3 % (4.0-6.0)
[2020-07-09 20:25] LABS: Glucose,Whole Blood 326 mg/dL (75-99)
[2020-07-09] MEDS: ATORVASTATIN 40 MG TAB PO SCH (20:52)
[2020-07-09] MEDS: INSULIN DETEMIR (LEVEMIR) 100 UNIT/ML SYR SQ SCH (20:52)
[2020-07-10 03:54] LABS: Folate, Serum 20.3 ng/mL
[2020-07-10] MEDS: SODIUM CHLORIDE 0.9% 1,000 ML IV SCH ×3 (05:38→23:54)
[2020-07-10 06:19] LABS: Glucose,Whole Blood 116 mg/dL (75-99)
[2020-07-10] MEDS: INSULIN ASPART (NovoLOG) 100 UNIT/ML VIAL SQ SCH ×3 (06:22→21:04)
[2020-07-10] MEDS: PANTOPRAZOLE 40 MG TABLET PO SCH (06:52)
[2020-07-10] MEDS ORDERED: PANTOPRAZOLE 40 MG TABLET PO SCH (07:30)
[2020-07-10] MEDS: atenoloL 50 MG TAB PO SCH (08:34)
[2020-07-10] MEDS: HEPARIN SODIUM,PORCINE 5,000 UNIT/ML 1 ML VIAL SQ SCH ×3 (08:34→23:55)
[2020-07-10] MEDS: cloNIDine HCL 0.2 MG TAB PO SCH ×3 (08:34→20:33)
[2020-07-10] MEDS: ISOSORBIDE MONONITRATE ER 60 MG TAB.ER.24H PO SCH (08:34)
[2020-07-10] MEDS: ASPIRIN 325 MG TAB PO SCH (08:34)
[2020-07-10] MEDS: DULoxetine HCL 30 MG CAPSULE.DR PO SCH (08:34)
--- NOTE | 2020-07-10 10:05 | ECHOF ---
Referral Reason:STROKE MEASUREMENTS -------- HEIGHT: 182.9 cm WEIGHT: 85.7 kg BP: RVIDd: 3.0 cm (< 3.3) IVSd: 1.3 cm (0.6 - 1.1) LVIDd: 3.9 cm (3.9 - 5.3) LVPWd: 1.7 cm (0.6 - 1.1) IVSs: 1.5 cm LVIDs: 2.7 cm LVPWs: 1.4 cm Ao Diam: 3.0 cm (2.0 - 3.7) AV Cusp: 1.8 cm (1.5 - 2.6) MV EXCURSION: 13.883 mm (> 18.000) MV EF SLOPE: 44 mm/s (70 - 150) EPSS: 0.8 cm MV E Erasto: 0.46 m/s MV DecT: 267 ms MV A Erasto: 0.82 m/s MV E/A Ratio: 0.57 FINDINGS -------- Sinus rhythm. This was a techncally difficult study with suboptimal views, , Lumason utilized for enhancement of im ages. LV size, wall thickness and systolic function are normal, with an EF greater than 55%. The left caio tricular size is normal. The right ventricle is normal in size. The left atrial size is normal. The right atrial size is normal. The aortic valve is trileaflet, and appears structurally normal. No aortic stenosis or regurgitation. Mild mitral annular calcification present. Mild mitral regurgitation is present. The tricuspid valve was not well visualized. Unable to estimate RVSP due to inadequate TR jet spect ral doppler profile. The pulmonic valve was not well visualized. The aortic root size is normal. Echo free space represents a pericardial fat pad. CONCLUSIONS -------- 1. This was a techncally difficult study with suboptimal views, , Lumason utilized for enhancement of images. 2. LV size, wall thickness and systolic function are normal, with an EF greater than 55%. 3. The left atrial size is normal. 4. The aortic valve is trileaflet, and appears structurally normal. No aortic stenosis or regurgitati on. 5. Mild mitral regurgitation is present. 6. The tricuspid valve was not well visualized. 7. Unable to estimate RVSP due to inadequate TR jet spectral doppler profile. 8. Echo free space represents a pericardial fat pad. [employer]INE DISMANTLER: Lupe Flynn RDCS
--- NOTE | 2020-07-10 10:17 | MR ---
"EXAMINATION TYPE: MR brain wo con DATE OF EXAM: 07/10/2020 COMPARISON: None HISTORY: CVA CONTRAST: Performed utilizing 0 mL intravenous Gadavist gadolinium contrast. TECHNIQUE: Multiplanar, multiecho imaging on a 3.0 Shauna magnet is performed through the brain. Stud y is performed within 24 hours of arrival to the hospital. The craniovertebral junction is normal. The pituitary is normal. Diffusion-weighted imaging is performed. There is a large watershed region area of hyperintensity on the diffusion-weighted imaging. Punctate area of hyperintensity is in the anterior right frontal lob e white matter. Series 405 image 136. White matter changes within the cortex along the left parietal- occipital region. Chronic white matter changes within the right brain stem. Series 501 image 11 additional periventricu lar white matter hyperintensity is present, likely on the basis of chronic white matter ischemic calabrese ges. Ventricles and sulci are somewhat prominent for the patient age. IMPRESSIONS: 1. Acute ischemic changes within the left parietal-occipital watershed region. 2. An additional focal area of acute ischemic change within the right frontal lobe white matter. 3. Additional mild periventricular white matter ischemic type changes and chronic white matter change within the right brain stem. A [place] critical message alert has been initiated for Aline Lyle MD via the [facility] | Critical Results System on 07/10/2020 10:14 AM. This message alert has been sent to Aline low MD via the preferences provided by the clinician for the receipt of Radiology Critical Findin gs. Message ID [id number]."
--- NOTE | 2020-07-10 10:22 | MR ---
EXAMINATION TYPE: MR angio head wo con DATE OF EXAM: 07/10/2020 COMPARISON: MRI brain same date HISTORY: CVA CONTRAST: None TECHNIQUE: Multiplanar multiecho imaging on a 3.0 Shauna magnet is performed through the [place]. 3-D [id number] imaging is performed. Source images are reviewed on the computer in the axi al plane. Reconstructed images rotating on the computer are reviewed. FINDINGS: The internal carotid arteries bifurcate normally into A1 and M1 segments. The A2 segments are normal. Middle cerebral artery branches are normal. Left side posterior lateral artery branches distally appears somewhat smaller in caliber compared to the right. Right ophthalmic artery is well v isualized appears unremarkable. Anterior communicating artery is patent. The right posterior communicating artery is patent. The left posterior communicating artery is absent. Vertebrobasilar arteries within the [id number] are normal. Posterior cerebral vasculature is norm al. No suspicious aneurysm or aneurysmal dilatation is evident. No obstructions are identified. No significant flow-limiting stenosis is evident. An abrupt cut off for the watershed infarct is not i dentified. IMPRESSIONS: 1. NORMAL MRA [place]. 2. An abrupt cut off for patient's left watershed infarct is not identified. Subtle diminished calibe r left middle cerebral artery branches distally however may be present when compared to the right.
--- NOTE | 2020-07-10 11:10 | P.PN ---
Subjective Patient is admitted for mental status changes and found her stroke. Patient had an MRI and MRA which showed acute ischemic changes within the left parieto- occipital watershed area and there is focal ischemic change in the right frontal area and mild periventricular white matter ischemic changes. Patient had an echocardiogram which did not show any significant abnormality. Patient had a carotid Doppler which is within normal limits. Neurology evaluated the patient and they believe patient has bilateral strokes because of which the recommending a KARISHMA and recommended to consult cardiology and cardiology was consulted. Objective - Vital Signs Vital signs: Vital Signs Temp 98.1 F 07/10/20 08:00 Pulse 58 L 07/10/20 08:00 Resp 16 07/10/20 08:00 BP 207/81 07/10/20 08:00 Pulse Ox 99 07/10/20 08:00 Intake & Output 07/09/20 07/10/20 07/10/20 18:59 06:59 18:59 Intake Total 480 120 Output Total 400 500 Balance 80 -500 120 Weight 101 kg Intake: Oral 480 120 Output: Urine 400 500 Other: Voiding Method Urinal Urinal Urinal Diaper # Voids 300 0 - Exam PHYSICAL EXAMINATION: GENERAL: The patient is alert and oriented x1-2, not in any acute distress. Well developed, well nourished. HEENT: Pupils are round and equally reacting to light. EOMI. No scleral icterus. No conjunctival pallor. Normocephalic, atraumatic. No pharyngeal erythema. No thyromegaly. CARDIOVASCULAR: S1 and S2 present. No murmurs, rubs, or gallops. PULMONARY: Chest is clear to auscultation, no wheezing or crackles. ABDOMEN: Soft, nontender, nondistended, normoactive bowel sounds. No palpable organomegaly. MUSCULOSKELETAL: No joint swelling or deformity. EXTREMITIES: No cyanosis, clubbing, or pedal edema. NEUROLOGICAL: Gross neurological examination did not reveal any focal deficits except for some mild motor aphasia. SKIN: No rashes. - Labs CBC & Chem 7: 07/08/20 15:54 07/08/20 15:54 Labs: Abnormal Lab Results - Last 24 Hours (Table) 07/08/20 07/09/20 07/09/20 Range/Units 15:54 11:58 17:01 POC Glucose (mg/dL) 255 H 243 H (75-99) mg/dL Hemoglobin A1c 8.3 H (4.0-6.0) % 07/09/20 07/10/20 Range/Units 20:24 06:18 POC Glucose (mg/dL) 326 H 116 H (75-99) mg/dL Hemoglobin A1c (4.0-6.0) % Assessment and Plan Plan: -Acute cerebral vascular accident involving the left parietal lobe, most ischemic origin patient has elevated LDL and patient is presently on statin. Patient is presently on chopped diet. Echocardiogram is within normal limits and carotid Doppler is within normal limits. Patient is doesn't lay on statin and aspirin. Patient will probably will go home with home care recommended that he goes to subacute rehab but family wanted to take him home. On Awake Counselor was consulted for possible KARISHMA as there is concern for bilateral stroke -Acute renal failure on chronic kidney disease stage III patient has diabetic nephropathy patient will be continued on IV fluids and repeat basic metabolic profile again tomorrow -Hyperlipidemia -Depression -Hypertension because of acute renal failure I'll hold off losartan and rest of the medications will be continued DVT prophylaxis: Heparin subcutaneous
[2020-07-10 12:30] LABS: Glucose,Whole Blood 104 mg/dL (75-99)
[2020-07-10] MEDS ORDERED: ONDANSETRON 4 MG/2 ML VIAL IVP PRN (13:05)
--- NOTE | 2020-07-10 14:03 | P.CRDCN ---
History of Present Illness Consult date: 07/10/20 History of present illness: CHIEF COMPLAINT: Evaluate for KARISHMA HISTORY OF PRESENT ILLNESS: This is a 74-year old male with a past medical history significant for hypertension, hyperlipidemia and sleep apnea. Patient follows in the office with Dr. Gallagher. We have been asked to see the patient in consultation for possible KARISHMA. Patient examined at the bedside. Language barrier present. Patients son is at the bedside and provides a majority of the HPI. Patient was having some confusion at home along with right sided weakness. Patient presented to the ER for further evaluation. He was evaluated by neurology and diagnosed with a CVA. Family denies history of CVA. Denies history of atrial fibrillation. Patient currently denies chest pain or pressure. Denies shortness of breath. Denies dizziness or lightheadedness. DIAGNOSTICS: EKG reveals inus rhythm with T-wave inversion in high lateral leads, similar to previous EKG Chest xray no active cardiopulmonary disease. Carotid Doppler: No significant internal carotid artery stenosis on either side Echocardiogram: Ejection fraction greater than 55%, mild mitral regurgitation MRI brain: acute ischemic changes within the left parietal occipital watershed region. An additional focal area of acute ischemic changes within the right frontal lobe white matter. CT brain: Hypodensity left posterior parietal lobe consistent with subacute or acute infarct Laboratory data: WBC 9.9. Hemoglobin 14.9. Platelet count 244. Sodium 133. Potassium 4.8. BUN 20. Creatinine 2.04. troponin negative 1. LDL 143. Current home cardiac medications include Catapres 0.2 mg 3 times a day, atenolol 50 mg daily, losartan 50 mg daily, Imdur 60 mg daily, Lasix 40 mg twice a day. REVIEW OF SYSTEMS: At the time of my exam: CONSTITUTIONAL: Denies fever or chills. HEENT: Denies blurred vision, vision changes, or eye pain. Denies hemoptysis CARDIOVASCULAR: Denies chest pain, orthopnea, PND or palpitations RESPIRATORY: No shortness of breath. GASTROINTESTINAL: Denies abdominal pain. Denies nausea or vomiting. HEMATOLOGIC: Denies bleeding disorders. GENITOURINARY: Denies any blood in urine. SKIN: Denies pruitis. Denies rash. PHYSICAL EXAM: VITAL SIGNS: Reviewed. GENERAL: Well-developed in no acute distress. HEENT: Head is normocephalic. Pupils are equal, round. Sclerae anicteric. Mucous membranes of the mouth are moist. Neck supple. No JVD or thyromegaly LUNGS: Respirations even and unlabored. Lungs essentially clear to auscultation bilaterally. HEART: Regular rate and rhythm. S1 and S2 heard. ABDOMEN: Soft. Nondistended. Nontender. EXTREMITIES: Normal range of motion. No clubbing or cyanosis. Peripheral pulses intact. No lower extremity edema NEUROLOGIC: Awake and alert. Oriented x 3. ASSESSMENT: Acute CVA, possible bilateral per neurology Hypertension Hyperlipidemia Acute on chronic kidney disease Diabetes mellitus, type II PLAN: Patient has been started on Aspirin and Plavix per neurology Continue additional cardiac medications including atenolol, Lipitor, Catapres, and Imdur Continue to hold Lasix and Cozaar secondary to JAMAAL Will obtain records from cardiology office for review Patient to undergo KARISHMA tomorrow with Dr. Gallagher. Discussed with patient, , and son who are agreeable Nurse practitioner note has been reviewed by physician. Signing provider agrees with the documented findings, assessment, and plan of care. Past Medical History Past Medical History: Diabetes Mellitus, Hyperlipidemia, Hypertension, Liver Disease, Sleep Apnea/CPAP/BIPAP Additional Past Medical History / Comment(s): ARTHRITIS, kidney stones, possible dementia, kidney failure History of Any Multi-Drug Resistant Organisms: None Reported Past Surgical History: Back Surgery Additional Past Surgical History / Comment(s): MASS REMOVED FROM BACK OF HEAD, eye surgery, Past Anesthesia/Blood Transfusion Reactions: No Reported Reaction Past Psychological History: Depression Smoking Status: Never smoker Past Alcohol Use History: None Reported Past Drug Use History: None Reported - Past Family History Father Family Medical History: Diabetes Mellitus Mother Family Medical History: Diabetes Mellitus Brother(s) Family Medical History: Cancer Sister(s) Family Medical History: Cancer Medications and Allergies Home Medications Medication Instructions Recorded Confirmed Type DULoxetine HCL [Cymbalta] 30 mg PO DAILY 03/13/16 07/08/20 History Furosemide [Lasix] 40 mg PO BID 03/13/16 07/08/20 History Isosorbide Mononitrate ER [Imdur] 60 mg PO DAILY 03/13/16 07/08/20 History atenoloL [Tenormin] 50 mg PO DAILY 03/13/16 07/08/20 History cloNIDine HCL [Catapres] 0.2 mg PO TID 03/13/16 07/08/20 History Ergocalciferol [Vitamin D2 50,000 unit PO FR 04/20/19 07/08/20 History (DRISDOL)] INSULIN ASPART (NovoLOG) [NovoLOG See Protocol SQ AC-TID 04/20/19 07/08/20 History (formulary)] Insulin Glargine [Lantus] 60 unit SQ BID 04/20/19 07/08/20 History Albuterol Nebulized [Ventolin 2.5 mg INHALATION RT-QID PRN 07/08/20 07/08/20 History Nebulized] Losartan [Cozaar] 50 mg PO HS 07/08/20 07/08/20 History Omeprazole 20 mg PO DAILY 07/08/20 07/08/20 History Allergies Allergy/AdvReac Type Severity Reaction Status Date / Time No Known Allergies Allergy Verified 07/08/20 17:39 Physical Exam Vitals: Vital Signs Temp Pulse Pulse Resp BP Pulse Ox 07/10/20 08:00 98.1 F 58 L 16 207/81 99 07/10/20 04:00 98.5 F 58 L 16 153/80 99 07/10/20 00:00 98.3 F 67 16 192/79 96 07/09/20 20:00 98.4 F 71 16 186/89 98 07/09/20 16:00 98.0 F 72 66 18 181/77 96 Intake and Output 07/09/20 07/10/20 07/10/20 22:59 06:59 14:59 Intake Total 240 120 Output Total 500 Balance 240 -500 120 Intake: Oral 240 120 Output: Urine 500 Other: Voiding Method Urinal Urinal Urinal # Voids 300 0 Weight 101 kg Results 07/08/20 15:54 07/08/20 15:54 Current Medications Generic Name Dose Route Start Last Admin Trade Name Freq PRN Reason Stop Dose Admin Acetaminophen 650 mg 07/09/20 10:05 07/09/20 10:10 Acetaminophen Tab 325 Mg Tab PO 650 mg Q6HR PRN Administration Fever and/ or Mild Pain Albuterol Sulfate 2.5 mg 07/09/20 10:38 Albuterol Nebulized 2.5 Mg/3 Ml INHALATION RT-QID PRN Shortness Of Breath Aspirin 325 mg 07/09/20 15:00 07/10/20 08:34 Aspirin 325 Mg Tab PO 325 mg DAILY BETSY Administration Atenolol 50 mg 07/09/20 10:45 07/10/20 08:34 Atenolol 50 Mg Tab PO 50 mg DAILY BETSY Administration Atorvastatin Calcium 40 mg 07/09/20 21:00 07/09/20 20:52 Atorvastatin 40 Mg Tab PO 40 mg HS BETSY Administration Clonidine 0.2 mg 07/09/20 10:45 07/10/20 08:34 Clonidine Hcl 0.2 Mg Tab PO 0.2 mg TID BETSY Administration Clopidogrel Bisulfate 75 mg 07/10/20 10:45 Clopidogrel 75 Mg Tab PO DAILY [facility] Duloxetine HCl 30 mg 07/10/20 09:00 07/10/20 08:34 Duloxetine Hcl 30 Mg Capsule.Dr PO 30 mg DAILY BETSY Administration Heparin Sodium (Porcine) 5,000 unit 07/09/20 16:00 07/10/20 08:34 Heparin Sodium,Porcine 5,000 Unit/Ml 1 Ml Vial SQ 5,000 unit Q8HR BETSY Administration Hydralazine HCl 10 mg 07/08/20 22:56 07/09/20 09:01 Hydralazine Hcl 20 Mg/Ml 1 Ml Vial IVP 10 mg Q6HR PRN Administration Blood Pressure - High Sodium Chloride 1,000 mls @ 100 mls/hr 07/08/20 17:15 07/10/20 05:38 Saline 0.9% IV 100 mls/hr .Q10H BETSY Administration Insulin Aspart 0 unit 07/08/20 22:01 07/10/20 06:22 Insulin Aspart (Novolog) 100 Unit/Ml Vial SQ Not Given ACHS [facility] Protocol Insulin Detemir 60 unit 07/09/20 21:00 07/09/20 20:52 Insulin Detemir (Levemir) 100 Unit/Ml Syr SQ 60 unit HS [facility] Administration Isosorbide Mononitrate 60 mg 07/10/20 09:00 07/10/20 08:34 Isosorbide Mononitrate Er 60 Mg Tab.Er.24h PO 60 mg DAILY BETSY Administration Ondansetron HCl 4 mg 07/10/20 13:05 Ondansetron 4 Mg/2 Ml Vial IVP Q6HR PRN Nausea And Vomiting Pantoprazole Sodium 40 mg 07/09/20 13:42 07/10/20 06:52 Pantoprazole 40 Mg Tablet PO 40 mg [id number]-[id number] BETSY Administration Intake and Output 07/09/20 07/10/20 07/10/20 22:59 06:59 14:59 Intake Total 240 120 Output Total 500 Balance 240 -500 120 Intake: Oral 240 120 Output: Urine 500 Other: Voiding Method Urinal Urinal Urinal # Voids 300 0 Weight 101 kg 07/08/20 15:54 07/08/20 15:54
--- NOTE | 2020-07-10 14:51 | P.PN ---
Subjective Progress Note Date: 07/10/20 Patient was seen for a follow-up. patient's and son were present today. According to son report, patient is no better. Still has expressive aphasia. Telemetry monitoring showing sinus rhythm with sinus bradycardia PVCs. No atrial fibrillation. Objective - Vital Signs Vital signs: Vital Signs Temp 97.7 F 07/10/20 12:35 Pulse 58 L 07/10/20 12:35 Resp 18 07/10/20 12:35 BP 186/81 07/10/20 12:35 Pulse Ox 99 07/10/20 08:00 Intake & Output 07/09/20 07/10/20 07/10/20 18:59 06:59 18:59 Intake Total 480 120 Output Total 400 500 Balance 80 -500 120 Weight 101 kg Intake: Oral 480 120 Output: Urine 400 500 Other: Voiding Method Urinal Urinal Urinal Diaper # Voids 300 0 - Exam Patient is alert and awake. examination unchanged. - Labs CBC & Chem 7: 07/08/20 15:54 07/08/20 15:54 Labs: Abnormal Lab Results - Last 24 Hours (Table) 07/08/20 07/09/20 07/09/20 Range/Units 15:54 17:01 20:24 POC Glucose (mg/dL) 243 H 326 H (75-99) mg/dL Hemoglobin A1c 8.3 H (4.0-6.0) % 07/10/20 07/10/20 Range/Units 06:18 12:28 POC Glucose (mg/dL) 116 H 104 H (75-99) mg/dL Hemoglobin A1c (4.0-6.0) % Assessment and Plan Assessment: * Acute ischemic CVA, multiple 3, involving bihemispheric region, largest involving the left parietal occipital region. Likely embolic in nature. * Left ICA stenosis, 70% involving the siphon. * Probable mild metabolic encephalopathy likely due to reasons mentioned below. * Diabetes, poorly controlled * Acute on chronic renal insufficiency * Hypertension * Hyperlipidemia * Cognitive impairment. Plan: * MRI of the brain confirmed moderate size acute ischemic stroke involving the left parieto-occipital region. An additional 2 small focal areas of ischemic infarction also seen in the 1) right frontal periventricular region, adjacent to the frontal horn and 2) left medial frontal cortical region. Rule out cardiac source. * Carotid Doppler showed no significant stenosis. * 2-D echo showed EF 55%. Left atrial size is normal. Mild MR. * Patient also has significant intracranial left ICA stenosis. Will place on dual antiplatelet medication with Plavix 75 mg and aspirin 325 mg for now. upon discharge, may switch from full to low-dose aspirin along with Plavix. * High-dose statins for hyperlipidemia. * Hemoglobin A1c 8.3. optimize control of diabetes to target A1c <7.0. * B12 328, folate 20.3, TSH 2.62, all normal. * Recommend KARISHMA to rule out embolic source. * Discussed with patient's family in detail. * PT OT, speech therapy.
[2020-07-10] MEDS: CLOPIDOGREL 75 MG TAB PO SCH (17:41)
[2020-07-10] MEDS: ACETAMINOPHEN TAB 325 MG TAB PO PRN (20:32)
[2020-07-10] MEDS: ATORVASTATIN 40 MG TAB PO SCH (20:32)
[2020-07-10 20:35] LABS: Glucose,Whole Blood 175 mg/dL (75-99)
[2020-07-10] MEDS: INSULIN DETEMIR (LEVEMIR) 100 UNIT/ML SYR SQ SCH (21:04)
[2020-07-11 04:35] VITALS: TEMP 97.6
[2020-07-11] MEDS: PANTOPRAZOLE 40 MG TABLET PO SCH (06:23)
[2020-07-11] MEDS: INSULIN ASPART (NovoLOG) 100 UNIT/ML VIAL SQ SCH ×2 (06:24→12:02)
[2020-07-11 06:25] LABS: Glucose,Whole Blood 96 mg/dL (75-99)
[2020-07-11] MEDS: hydrALAZINE HCL 20 MG/ML 1 ML VIAL IVP PRN ×2 (08:37)
[2020-07-11] MEDS ORDERED: IV FLUID CONTINUATION 1,000 ML IV ONE (08:53)
[2020-07-11] MEDS ORDERED: SODIUM CHLORIDE 0.9% 500 ML 500 ML IV ONE (08:53)
--- NOTE | 2020-07-11 09:08 | P.DS ---
Providers Date of admission: 07/08/20 17:01 Attending physician: Aline Lyle Consults: 07/08/20 17:03 Consult Physician Urgent Consulting Provider: Theresa Benítez Consult Reason/Comments: Acute or subacute CVA Do you want consulting provider notified?: Yes 07/10/20 10:49 Consult Physician Routine Consulting Provider: Sam Gallagher Consult Reason/Comments: Stroke , evaluate for KARISHMA Do you want consulting provider notified?: Yes Primary care physician: [facility] Course: Patient is admitted for mental status changes and found her stroke. Patient had an MRI and MRA which showed acute ischemic changes within the left parieto- occipital watershed area and there is focal ischemic change in the right frontal area and mild periventricular white matter ischemic changes. Patient had an echocardiogram which did not show any significant abnormality. Patient had a carotid Doppler which is within normal limits. Neurology evaluated the patient and they believe patient has bilateral strokes because of which the recommending a KARISHMA and recommended to consult cardiology and cardiology was consulted. 07/11/2020 Patient's aphasia completely resolved patient confusion resolved. Patient will undergo KARISHMA today that turns out to be normal patient will be discharged today.I'm waiting on basic metabolic profile as well. PHYSICAL EXAMINATION: GENERAL: The patient is alert and oriented x1-2, not in any acute distress. Well developed, well nourished. HEENT: Pupils are round and equally reacting to light. EOMI. No scleral icterus. No conjunctival pallor. Normocephalic, atraumatic. No pharyngeal erythema. No thyromegaly. CARDIOVASCULAR: S1 and S2 present. No murmurs, rubs, or gallops. PULMONARY: Chest is clear to auscultation, no wheezing or crackles. ABDOMEN: Soft, nontender, nondistended, normoactive bowel sounds. No palpable organomegaly. MUSCULOSKELETAL: No joint swelling or deformity. EXTREMITIES: No cyanosis, clubbing, or pedal edema. NEUROLOGICAL: No new focal deficits aphasia resolved confusion resolved. SKIN: No rashes. Assessment and Plan Plan: -Acute cerebral vascular accident involving the left parietal lobe, most ischemic origin patient has elevated LDL and patient is presently on statin. Patient is presently on chopped diet. Echocardiogram is within normal limits and carotid Doppler is within normal limits. patient will be discharged on statin, aspirin and Plavix as recommended by neurology, patient is awaiting KARISHMA if that's negative patient will be discharged. -Acute renal failure on chronic kidney disease stage III patient has diabetic nephropathy patient was on IV fluids I'm hoping that his kidney function improved by now awaiting basic metabolic profile from today -Hyperlipidemia -Depression -Hypertension patient will be resumed on his home regimen except for cutting down on Lasix because of renal dysfunction and patient doesn't have any pulmonary edema or pedal edema at this time patient is on 40 twice a day of Lasix which will be about 40 daily Patient Condition at Discharge: Stable Plan - Discharge Summary Discharge Rx Participant: No New Discharge Prescriptions: New Aspirin 81 mg PO DAILY #30 chewable Atorvastatin [Lipitor] 40 mg PO HS #30 tab Clopidogrel [Plavix] 75 mg PO DAILY #30 tab Continue Isosorbide Mononitrate ER [Imdur] 60 mg PO DAILY atenoloL [Tenormin] 50 mg PO DAILY cloNIDine HCL [Catapres] 0.2 mg PO TID DULoxetine HCL [Cymbalta] 30 mg PO DAILY Ergocalciferol [Vitamin D2 (DRISDOL)] 50,000 unit PO FR INSULIN ASPART (NovoLOG) [NovoLOG (formulary)] See Protocol SQ AC-TID Losartan [Cozaar] 50 mg PO HS Albuterol Nebulized [Ventolin Nebulized] 2.5 mg INHALATION RT-QID PRN PRN Reason: Shortness Of Breath Omeprazole 20 mg PO DAILY Changed Insulin Glargine [Lantus] 60 unit SQ HS #0 Furosemide [Lasix] 40 mg PO DAILY #0 Discharge Medication List DULoxetine HCL [Cymbalta] 30 mg PO DAILY 03/13/16 [History] Isosorbide Mononitrate ER [Imdur] 60 mg PO DAILY 03/13/16 [History] atenoloL [Tenormin] 50 mg PO DAILY 03/13/16 [History] cloNIDine HCL [Catapres] 0.2 mg PO TID 03/13/16 [History] Ergocalciferol [Vitamin D2 (DRISDOL)] 50,000 unit PO FR 04/20/19 [History] INSULIN ASPART (NovoLOG) [NovoLOG (formulary)] See Protocol SQ AC-TID 04/20/19 [History] Albuterol Nebulized [Ventolin Nebulized] 2.5 mg INHALATION RT-QID PRN 07/08/20 [History] Losartan [Cozaar] 50 mg PO HS 07/08/20 [History] Omeprazole 20 mg PO DAILY 07/08/20 [History] Aspirin 81 mg PO DAILY #30 chewable 07/11/20 [Rx] Atorvastatin [Lipitor] 40 mg PO HS #30 tab 07/11/20 [Rx] Clopidogrel [Plavix] 75 mg PO DAILY #30 tab 07/11/20 [Rx] Furosemide [Lasix] 40 mg PO DAILY #0 07/11/20 [Rx] Insulin Glargine [Lantus] 60 unit SQ HS #0 07/11/20 [Rx] Follow up Appointment(s)/Referral(s): Dennis Santana DO [Primary Care Provider] - 3 Days [facility], [NON-STAFF] - Tigre Arciniega DO [STAFF PHYSICIAN] - 1 Week Discharge Disposition: HOME WITH HOME HEALTH SERVICES
[2020-07-11] MEDS ORDERED: BENZOCAINE SPRAY 1 CAN MUCOUS MEM ONE (09:36)
[2020-07-11] MEDS: MIDAZOLAM 2 MG/2 ML VIAL IV ONE ×2 (09:42→09:45)
[2020-07-11] MEDS: fentaNYL (PF) 50 MCG/ML 2 ML AMP IV ONE ×2 (09:42→09:45)
[2020-07-11 09:49] LABS: Calcium 8.5 mg/dL (8.4-10.2); Potassium 4.3 mmol/L (3.5-5.1)
[2020-07-11 09:58] VITALS: RESP 18
[2020-07-11] MEDS: ASPIRIN 325 MG TAB PO SCH (11:28)
[2020-07-11] MEDS: ISOSORBIDE MONONITRATE ER 60 MG TAB.ER.24H PO SCH (11:29)
[2020-07-11] MEDS: CLOPIDOGREL 75 MG TAB PO SCH (11:29)
[2020-07-11] MEDS: atenoloL 50 MG TAB PO SCH (11:29)
[2020-07-11] MEDS: HEPARIN SODIUM,PORCINE 5,000 UNIT/ML 1 ML VIAL SQ SCH (11:30)
[2020-07-11] MEDS: DULoxetine HCL 30 MG CAPSULE.DR PO SCH (11:30)
[2020-07-11] MEDS: cloNIDine HCL 0.2 MG TAB PO SCH (11:30)
[2020-07-11] MEDS: SODIUM CHLORIDE 0.9% 1,000 ML IV SCH (11:39)
[2020-07-11 11:51] LABS: Glucose,Whole Blood 117 mg/dL (75-99)
--- NOTE | 2020-07-11 12:07 | P.TEE ---
Indications for Procedure(s): CVA Date of Procedure: 07/11/20 Preoperative Diagnosis: CVA Postoperative Diagnosis: No cardiac source of emboli. Moderate plaque in the aorta Procedure(s) Performed: KARISHMA Description of Procedure(s): INDICATION: This is a 74-year-old gentleman with history of hypertension who was admitted to the hospital with CVA. Neurology requested KARISHMA examination to rule out Cardec source of emboli CONSENT: Verbal consent was obtained from the patient PROCEDURE: Patient was prepped and draped in the usual fashion. A lubricated Omni probe was introduced into the oropharynx and advanced into the stomach. Multiple views were obtained both from stomach and esophagus. Color, pulsed and continuous with Doppler studies were performed. Saline contrast bubble injection is also performed. Patient tolerated the procedure FINDINGS: . The aortic valve is trileaflet with normal opening excursion. No significant regurgitation noted. The mitral valve appeared within normal. The tricuspid valve appeared within normal. The interatrial septum appeared within normal without any spontaneous shunt. Injection of the saline contrast bubbles did not reveal any crossing of bubbles across the interatrial septum. The left atrial appendage is free of any clot. The left ventricle function is normal. Aorta showed moderate plaque IMPRESSION: #1. No cardiac source of emboli. #2. Moderate plaque in the aorta . #3. Preserved LV function. #4. Normal valvular function PLAN: Continue current medical therapy with antiplatelet agents
[2020-07-11 12:20] VITALS: BP 173/87; PULSE 67
--- NOTE | 2020-07-11 16:29 | P.PN ---
Subjective Progress Note Date: 07/11/20 Patient was seen for a follow-up. patient's and daughter and niece were present today. Per patient's daughter, he is much improved. He is able to express. States still gets sometimes confused but much improved. Objective - Vital Signs Vital signs: Vital Signs Temp 97.6 F 07/11/20 04:00 Pulse 67 07/11/20 10:57 Resp 18 07/11/20 10:57 BP 173/87 07/11/20 10:57 Pulse Ox 98 07/11/20 10:57 Intake & Output 07/10/20 07/11/20 07/11/20 18:59 06:59 18:59 Intake Total 330 0 100 Balance 330 0 100 Weight 106 kg Intake: IV 100 Oral 330 0 Other: Voiding Method Urinal Toilet Urinal # Voids 1 1 0 # Bowel Movements 0 - Exam Patient is alert and awake. Patient able to express much better. He can follow directions. Patient has significant visual field deficits partly from diabetic retinopathy. Muscle strength is normal. Tone is normal. Patient is sitting in the recliner. - Labs CBC & Chem 7: 07/08/20 15:54 07/11/20 07:14 Labs: Abnormal Lab Results - Last 24 Hours (Table) 07/10/20 07/11/20 07/11/20 Range/Units 20:34 07:14 11:42 Chloride 111 H (98-107) mmol/L Creatinine 1.74 H (0.66-1.25) mg/dL POC Glucose (mg/dL) 175 H 117 H (75-99) mg/dL Assessment and Plan Assessment: * Acute ischemic CVA, multiple 3, involving bihemispheric region, largest involving the left parietal occipital region. Likely embolic in nature. * Left ICA stenosis, 70% involving the siphon. * Probable mild metabolic encephalopathy likely due to reasons mentioned below. * Diabetes, poorly controlled * Acute on chronic renal insufficiency * Hypertension * Hyperlipidemia * Cognitive impairment. Plan: * Patient underwent KARISHMA today, which was negative for any embolic source. * MRI of the brain confirmed moderate size acute ischemic stroke involving the left parieto-occipital region. An additional 2 small focal areas of ischemic infarction also seen in the 1) right frontal periventricular region, adjacent to the frontal horn and 2) left medial frontal cortical region. Rule out cardiac source. * Carotid Doppler showed no significant stenosis. * 2-D echo showed EF 55%. Left atrial size is normal. Mild MR. * Patient also has significant intracranial left ICA stenosis. Continue dual antiplatelet medication with Plavix 75 mg and aspirin 325 mg for now. upon discharge, may switch from full to low-dose aspirin along with Plavix. * High-dose statins for hyperlipidemia. * Hemoglobin A1c 8.3. optimize control of diabetes to target A1c <7.0. * B12 328, folate 20.3, TSH 2.62, all normal. * Discussed with patient's family in detail. * Patient going home with home care. Recommended to follow up with a neurologist outpatient in 1-2 weeks.
--- NOTE | 2020-07-12 07:49 | CDI ---
Documentation Clarification Form Date: 07/12/20 From: Shreya Hale Phone: If you have a question about this query, please contact Tori Siddiqui [employer] at [phone] between 8am and 5pm. Admit Date: 07/08/20 Discharge Date:07/11/20 Patient Name: Edgardo Alvarez Visit Number: [id number] ATTENTION: The Clinical Documentation Specialists (CDI) and [facility] Coding Staff appreciate your assistance in clarifying documentation. Please respond to the clarification below the line at the bottom and electronically sign. The CDI & [facility] Coding staff will review the response and follow-up if needed. Please note: Queries are made part of the Legal Health Record. If you have any questions, please contact the author of this message via ITS. Dear Dr. Lyle The patient has diabetes, as indicated throughout the record. Neurology documented that the patient's diabetes is poorly controlled. History/Risk Factors: DM, retinopathy, CKD, HTN Clinical Indicators: Elevated blood sugar Glucose: 206on admit, 92 on 07/11/20 POC Glucose: 193, 164, 185, 255, 243, 326, 116, 104, 175, 96, 117 Treatment: No changes in diabetic medications In order to capture the severity of Illness and necessary documentation specificity, please clarify the poorly controlled diabetes: Hypoglycemia with or without coma Other condition (please specify): Unable to determine Hyperglycemia MTDD
== END 2020-07-11 16:33 | disposition home health service (06) | DRG 64 ==
LOC: EC 15:22 → 3SCARD 17:01
PROVIDERS: ADMIT Internal Medicine; ATTEND Internal Medicine
PROC: B24BZZ4 Ultrasonography of Heart with Aorta, Transesophageal (ICD-10-PCS; principal; 2020-07-11 09:00)
DX: I63.89 Other cerebral infarction (principal); G93.41 Metabolic encephalopathy; G81.91 Hemiplegia, unspecified affecting right dominant side; E87.1 Hypo-osmolality and hyponatremia; N17.9 Acute kidney failure, unspecified; R47.01 Aphasia; E11.319 Type 2 diabetes mellitus with unspecified diabetic retinopathy without macular edema; E11.22 Type 2 diabetes mellitus with diabetic chronic kidney disease; F03.90 Unspecified dementia, unspecified severity, without behavioral disturbance, psychotic disturbance, mood disturbance, and anxiety; N18.30 Chronic kidney disease, stage 3 unspecified; E11.65 Type 2 diabetes mellitus with hyperglycemia; Z79.4 Long term (current) use of insulin; R29.810 Facial weakness; I65.22 Occlusion and stenosis of left carotid artery; E78.5 Hyperlipidemia, unspecified; F32.9 Major depressive disorder, single episode, unspecified; I12.9 Hypertensive chronic kidney disease with stage 1 through stage 4 chronic kidney disease, or unspecified chronic kidney disease; I49.3 Ventricular premature depolarization; J32.3 Chronic sphenoidal sinusitis; G47.30 Sleep apnea, unspecified; M19.90 Unspecified osteoarthritis, unspecified site; Z79.899 Other long term (current) drug therapy; Z87.442 Personal history of urinary calculi; Z86.73 Personal history of transient ischemic attack (TIA), and cerebral infarction without residual deficits; Z87.898 Personal history of other specified conditions; Z98.890 Other specified postprocedural states; Z83.3 Family history of diabetes mellitus; Z80.9 Family history of malignant neoplasm, unspecified
CPT/HCPCS: 36415; 70450; 70544; 70551; 71045; 80048; 80053; 80061; 80306; 80320; 81001; 82009; 82140; 82607; 82746; 83036; 83735; 84443; 84484; 85025; 85610; 85730; 93005; 93306; 93312; 93320; 93325; 93880; 96360; 96361; 99285

== ENCOUNTER 2020-07-12 23:24 | Observation (INO) | payer MEDICARE ==
[2020-07-13] MEDS ORDERED: hydrALAZINE HCL 20 MG/ML 1 ML VIAL IVP STA (00:09)
[2020-07-13 00:29] LABS: Basophils # (A) 0.1 k/uL (0-0.2); Basophils % (A) 1 %; Eosinophils # (A) 0.1 k/uL (0-0.7); Eosinophils % (A) 1 %; HCT 46.6 % (39.0-53.0); HGB 15.3 gm/dL (13.0-17.5); Lymphocytes # (A) 2.2 k/uL (1.0-4.8); Lymphocytes % (A) 27 %; MCH 30.7 pg (25.0-35.0); MCHC 32.9 g/dL (31.0-37.0); MCV 93.3 fL (80.0-100.0); Monocytes # (A) 0.5 k/uL (0-1.0); Monocytes % (A) 6 %; Neutrophils # (A) 5.2 k/uL (1.3-7.7); Neutrophils % (A) 64 %; Platelet Count 288 k/uL (150-450); RDW 13.2 % (11.5-15.5); WBC 8.1 k/uL (3.8-10.6)
--- NOTE | 2020-07-13 00:29 | ED ---
General Adult HPI - General Chief complaint: Recheck/Abnormal Lab/Rx Stated complaint: hypertension Time Seen by Provider: 07/12/20 23:28 Source: patient, family Mode of arrival: EMS Limitations: physical limitation - History of Present Illness Initial comments: 74-year-old male presents to the emergency department this evening via EMS for evaluation of high blood pressure. Patient's son explains that the patient was discharged from the inpatient unit yesterday after a stay for multiple CVAs. Patient's son also states that they were instructed at discharge to monitor the patient's blood pressure carefully and to call his primary care provider if the systolic pressure exceeded 190. Patient had several systolic blood pressure readings greater than 200 this evening therefore they called the primary care provider who called EMS to transport the patient to the hospital. Patient is only able to provide a limited amount of information; does report a mild frontal headache. Patient's son states the patient's vision and memory have both been affected by the strokes but that the patient did have a few clear moments during the day today in which he was able to converse easily and was oriented appropriately. States that he is confused now, but that is not unusual since the CVA. They deny limb weakness deficit as a result of the strokes. Patient denies any recent rash, fever, chills, cough, shortness of breath, chest pain, abdominal pain, nausea, vomiting, diarrhea, constipation, back pain, numbness, tingling, dizziness, weakness, hematuria, dysuria, urinary urgency, urinary frequency, or any other complaints. - Related Data Home Medications Medication Instructions Recorded Confirmed DULoxetine HCL [Cymbalta] 30 mg PO DAILY 03/13/16 07/08/20 Isosorbide Mononitrate ER [Imdur] 60 mg PO DAILY 03/13/16 07/08/20 atenoloL [Tenormin] 50 mg PO DAILY 03/13/16 07/08/20 cloNIDine HCL [Catapres] 0.2 mg PO TID 03/13/16 07/08/20 Ergocalciferol [Vitamin D2 50,000 unit PO FR 04/20/19 07/08/20 (DRISDOL)] INSULIN ASPART (NovoLOG) [NovoLOG See Protocol SQ AC-TID 04/20/19 07/08/20 (formulary)] Albuterol Nebulized [Ventolin 2.5 mg INHALATION RT-QID PRN 07/08/20 07/08/20 Nebulized] Losartan [Cozaar] 50 mg PO HS 07/08/20 07/08/20 Omeprazole 20 mg PO DAILY 07/08/20 07/08/20 Previous Rx's Medication Instructions Recorded Aspirin 81 mg PO DAILY #30 chewable 07/11/20 Atorvastatin [Lipitor] 40 mg PO HS #30 tab 07/11/20 Clopidogrel [Plavix] 75 mg PO DAILY #30 tab 07/11/20 Furosemide [Lasix] 40 mg PO DAILY #0 07/11/20 Insulin Glargine [Lantus] 60 unit SQ HS #0 07/11/20 Allergies Allergy/AdvReac Type Severity Reaction Status Date / Time No Known Allergies Allergy Verified 07/12/20 23:44 Review of Systems ROS Statement: Those systems with pertinent positive or pertinent negative responses have been documented in the HPI. ROS Other: All systems not noted in ROS Statement are negative. Past Medical History Past Medical History: Diabetes Mellitus, Hyperlipidemia, Hypertension, Liver Disease, Sleep Apnea/CPAP/BIPAP Additional Past Medical History / Comment(s): ARTHRITIS, kidney stones, possible dementia, kidney failure History of Any Multi-Drug Resistant Organisms: None Reported Past Surgical History: Back Surgery Additional Past Surgical History / Comment(s): MASS REMOVED FROM BACK OF HEAD, eye surgery, Past Anesthesia/Blood Transfusion Reactions: No Reported Reaction Past Psychological History: Depression Smoking Status: Never smoker Past Alcohol Use History: None Reported Past Drug Use History: None Reported - Past Family History Father Family Medical History: Diabetes Mellitus Mother Family Medical History: Diabetes Mellitus Brother(s) Family Medical History: Cancer Sister(s) Family Medical History: Cancer General Exam Limitations: language barrier, altered mental status (Patient is alert and oriented to self. Son present at bedside does clarify communication in Vincentian language. ) General appearance: alert, in no apparent distress, other (This is a well- developed, well-nourished male in no acute distress. Initial temperature 98.7F, pulse 64, respirations 18, blood pressure 142/113, pulse ox 99% on room air.) Eye exam: Present: normal appearance, PERRL. Absent: EOMI (Patient is unable to follow the command to assess EOM.) Neck exam: Present: normal inspection Respiratory exam: Present: normal lung sounds bilaterally. Absent: respiratory distress, wheezes, rales, rhonchi, stridor Cardiovascular Exam: Present: regular rate, normal rhythm, normal heart sounds. Absent: systolic murmur, diastolic murmur, rubs, gallop, clicks GI/Abdominal exam: Present: soft, normal bowel sounds, other (soft, protuberant abdomen) Neurological exam: Present: alert, altered Expanded Neurological exam: Present: memory loss-recent event Patient oriented to: Present: person. Absent: place, time Motor strength exam: RUE: 5, LUE: 5, RLE: 3, LLE: 3 Eye Response: (4) open spontaneously Motor Response: (6) obeys commands Verbal Response: (4) confused conversation Psychiatric exam: Present: normal affect Skin exam: Present: warm, dry, intact, normal color. Absent: rash Course Vital Signs 07/12/20 07/12/20 07/13/20 23:26 23:59 00:22 Temperature 98.7 F Pulse Rate 64 59 L 62 Respiratory 18 18 18 Rate Blood Pressure 142/113 213/105 224/100 O2 Sat by Pulse 99 100 Oximetry 07/13/20 07/13/20 00:33 00:48 Temperature Pulse Rate 61 61 Respiratory 18 18 Rate Blood Pressure 226/116 191/89 O2 Sat by Pulse 99 Oximetry Medical Decision Making - Medical Decision Making 74-year-old male patient with past medical history significant for diabetes, hypertension, CVA discharged from the hospital on 07/11/2020 after being admitted for multiple strokes, arrives to the emergency department today for elevated blood pressures. Blood pressures have been consistently above 200 systolic at home today. Patient has been exhibiting confusion on and off since his diagnosis. Patient's main deficits are to his memory, speech, and vision. Patient has been taking his home medications which include clonidine, atenolol, cozaar, and imdur. He was also started on Aspirin and Plavix while in the hospital, for this reason as well as complaint of headache we did perform CT scan of the head. This showed a larger area of infarct which the radiologist was not sure if this was evolution of the infarct or new area of infarct. Patient will be admitted to the hospital for further evaluation by neurology and blood pressure management. Results were explained to family and they are agreeable. - Lab Data Result diagrams: 07/13/20 00:20 07/13/20 00:20 Lab Results 07/13/20 07/13/20 07/13/20 Range/Units 00:20 00:20 00:20 WBC 8.1 (3.8-10.6) k/uL RBC 5.00 (4.30-5.90) m/uL Hgb 15.3 (13.0-17.5) gm/dL Hct 46.6 (39.0-53.0) % MCV 93.3 (80.0-100.0) fL MCH 30.7 (25.0-35.0) pg MCHC 32.9 (31.0-37.0) g/dL RDW 13.2 (11.5-15.5) % Plt Count 288 (150-450) k/uL Neutrophils % 64 % Lymphocytes % 27 % Monocytes % 6 % Eosinophils % 1 % Basophils % 1 % Neutrophils # 5.2 (1.3-7.7) k/uL Lymphocytes # 2.2 (1.0-4.8) k/uL Monocytes # 0.5 (0-1.0) k/uL Eosinophils # 0.1 (0-0.7) k/uL Basophils # 0.1 (0-0.2) k/uL PT 9.5 (9.0-12.0) sec INR 0.9 (<1.2) APTT 24.4 (22.0-30.0) sec Sodium 136 L (137-145) mmol/L Potassium 4.0 (3.5-5.1) mmol/L Chloride 105 (98-107) mmol/L Carbon Dioxide 27 (22-30) mmol/L Anion Gap 4 mmol/L BUN 16 (9-20) mg/dL Creatinine 1.86 H (0.66-1.25) mg/dL Est GFR (CKD-EPI)AfAm 41 (>60 ml/min/1.73 sqM) Est GFR (CKD-EPI)NonAf 35 (>60 ml/min/1.73 sqM) Glucose 279 H (74-99) mg/dL Calcium 8.8 (8.4-10.2) mg/dL Magnesium 1.9 (1.6-2.3) mg/dL Total Bilirubin 0.5 (0.2-1.3) mg/dL AST 28 (17-59) U/L ALT 13 (4-49) U/L Alkaline Phosphatase 153 H (38-126) U/L Troponin I (0.000-0.034) ng/mL NT-Pro-B Natriuret Pep pg/mL Total Protein 6.5 (6.3-8.2) g/dL Albumin 3.5 (3.5-5.0) g/dL 07/13/20 07/13/20 Range/Units 00:20 00:20 WBC (3.8-10.6) k/uL RBC (4.30-5.90) m/uL Hgb (13.0-17.5) gm/dL Hct (39.0-53.0) % MCV (80.0-100.0) fL MCH (25.0-35.0) pg MCHC (31.0-37.0) g/dL RDW (11.5-15.5) % Plt Count (150-450) k/uL Neutrophils % % Lymphocytes % % Monocytes % % Eosinophils % % Basophils % % Neutrophils # (1.3-7.7) k/uL Lymphocytes # (1.0-4.8) k/uL Monocytes # (0-1.0) k/uL Eosinophils # (0-0.7) k/uL Basophils # (0-0.2) k/uL PT (9.0-12.0) sec INR (<1.2) APTT (22.0-30.0) sec Sodium (137-145) mmol/L Potassium (3.5-5.1) mmol/L Chloride (98-107) mmol/L Carbon Dioxide (22-30) mmol/L Anion Gap mmol/L BUN (9-20) mg/dL Creatinine (0.66-1.25) mg/dL Est GFR (CKD-EPI)AfAm (>60 ml/min/1.73 sqM) Est GFR (CKD-EPI)NonAf (>60 ml/min/1.73 sqM) Glucose (74-99) mg/dL Calcium (8.4-10.2) mg/dL Magnesium (1.6-2.3) mg/dL Total Bilirubin (0.2-1.3) mg/dL AST (17-59) U/L ALT (4-49) U/L Alkaline Phosphatase (38-126) U/L Troponin I <0.012 (0.000-0.034) ng/mL NT-Pro-B Natriuret Pep 1110 pg/mL Total Protein (6.3-8.2) g/dL Albumin (3.5-5.0) g/dL - Radiology Data Radiology results: report reviewed, image reviewed CT brain without contrast was obtained. Report was reviewed in its entirety. Impression by Dr. Rodríguez shows abnormal hypodensity within the left parietal occipital region compatible with acute or subacute CVA. It is unclear whether the findings on today's study represents an evolution of previously noted subtle infarct and a previous CT study of 07/08/2020 or an area of reinfarction. There is very minimal mass effect upon the posterior one of the left lateral ventricle. No significant midline shift. MRI with diffusion weighted sequences advised to follow-up. Disposition Clinical Impression: CVA (cerebral vascular accident), Hypertension Disposition: ADMITTED IP TO THIS [facility] Condition: Serious Referrals: Dennis Santana DO [Primary Care Provider] - 1-2 days Decision to Admit Reason: Admit from EC Decision Date: 07/13/20 Decision Time: 01:05
[2020-07-13 00:38] LABS: Albumin 3.5 g/dL (3.5-5.0); Calcium 8.8 mg/dL (8.4-10.2); Magnesium 1.9 mg/dL (1.6-2.3); Total Bilirubin 0.5 mg/dL (0.2-1.3); Total Protein 6.5 g/dL (6.3-8.2)
[2020-07-13 00:40] LABS: INR 0.9 (<1.2); Partial Thromboplastin Time 24.4 sec (22.0-30.0); Prothrombin Time 9.5 sec (9.0-12.0)
--- NOTE | 2020-07-13 00:41 | CT ---
EXAM: CT Head Without Intravenous Contrast CLINICAL HISTORY: Headache. Hypertension. Recent CVA. TECHNIQUE: Axial computed tomography images of the head/brain without intravenous contrast. CTDI is 49.27 mGy and DLP is 1150.4 mGy-cm. This CT exam was performed using one or more of the following dose reduction techniques: automated exposure control, adjustment of the mA and/or kV according to patient size, and/or use of iterative reconstruction technique. COMPARISON: 07/08/2020. FINDINGS: Brain: No abnormal extra-axial collection to Physiologic calcifications within the basal ganglia appeared Abnormal extra-axial collection is noted. No hemorrhage. No significant white matter disease. Ventricles: Unremarkable. No ventriculomegaly. Bones/joints: Calvarium is unremarkable. No acute fracture. Soft tissues: Unremarkable. Sinuses: Severe chronic right sphenoid sinusitis. Mastoid air cells: Mastoid air cells are well pneumatized. Other findings: There is a 6.6 x 2.9 x 5.2 cm abnormal hypodensity within the left parieto-occipital region compatible with acute/subacute CVA. IMPRESSION: 1. Abnormal hypodensity within the left parietal occipital region compatible with acute or subacute CVA. 2. It is unclear whether the finding on today's study represents an illusion of previously noted subtle infarct in the previous CT study of 07/08/2020 or an area of reinfarction. 3. There is very minimal mass-effect upon the posterior horn of the left lateral ventricle. 4. No significant midline shift. 5. Magnetic resonance imaging of the brain with diffusion-weighted sequences advised to follow-up. <MYCVCSECTION> Communications: 07/13/20 00:43 Call Doctor Regarding Stroke, called REJI [place] on 07/13 00:43 (-04:00)
[2020-07-13] MEDS ORDERED: cloNIDine 0.3 MG/24HR PATCH TRANSDERM STA (00:51)
[2020-07-13] MEDS ORDERED: NALOXONE 0.4 MG/ML 1 ML VIAL IV PRN (00:54)
[2020-07-13] MEDS ORDERED: ACETAMINOPHEN TAB 500 MG TAB PO STA (00:59)
[2020-07-13] MEDS: hydrALAZINE HCL 20 MG/ML 1 ML VIAL IVP PRN (02:23)
[2020-07-13] MEDS ORDERED: ALBUTEROL NEBULIZED 2.5 MG/3 ML INHALATION PRN (09:40)
[2020-07-13] MEDS ORDERED: atenoloL 50 MG TAB PO SCH (09:45)
[2020-07-13] MEDS ORDERED: ERGOCALCIFEROL 50,000 UNIT CAP PO SCH (09:45)
[2020-07-13] MEDS: INSULIN ASPART (NovoLOG) 100 UNIT/ML VIAL SQ SCH ×3 (10:04→17:13)
[2020-07-13] MEDS: DULoxetine HCL 30 MG CAPSULE.DR PO SCH (10:50)
[2020-07-13] MEDS: ASPIRIN 81 MG PO SCH (10:50)
[2020-07-13] MEDS: cloNIDine HCL 0.2 MG TAB PO SCH ×3 (10:50→20:32)
[2020-07-13] MEDS: CLOPIDOGREL 75 MG TAB PO SCH (10:50)
[2020-07-13] MEDS: ISOSORBIDE MONONITRATE ER 60 MG TAB.ER.24H PO SCH (10:51)
[2020-07-13] MEDS: PANTOPRAZOLE 40 MG TABLET PO SCH (10:51)
[2020-07-13] MEDS ORDERED: LACTULOSE 20 GM/30 ML CUP PO ONE (10:55)
[2020-07-13 12:27] LABS: Glucose,Whole Blood 194 mg/dL (75-99)
--- NOTE | 2020-07-13 12:52 | P.CNNES ---
History of Present Illness Consult date: 07/13/20 Requesting physician: Patti López Reason for Consult: CVA History of Present Illness: Patient is a 74-year-old male, well known to me from recent admission to the hospital for an acute CVA. Patient came to the hospital last night at 11:30 PM for evaluation of high blood pressure. Patient had several blood pressure readings that for over 200 before they called the primary care provider who called EMS who transported the patient to the hospital. Patient had complained of mild frontal headache. Patient's son has mentioned that his vision and the memory both have been affected by the recent strokes. No focal weakness. No new focal symptoms were reported. Vital signs on arrival was blood pressure 142/113 pulse rate 64 and temperature 98.7. His blood pressure went up to 213/105 and then to 24/100. His CT head showed abnormal hypodensity within the left parietal occipital region compatible with acute or subacute CVA. It is unclear whether the finding on today's study to present an illusion of previously noted subtle infarct in the previous CT study of 07/08/2020 or an area of reinfarction. There is very minimal mass effect upon the posterior horn of the left lateral ventricle. No significant midline shift. On my review, this CVA is just a natural evolution of the previous CVA that was noted on the MRI of the brain from 07/10/2020. At present patient's was present. Patient's also called her daughter on the cell phone and speakerphone was used for translation. They have not noticed any new focal symptoms. Review of Systems Patient complains of frontal headache, visual issues, some hearing loss, slow mentation. Memory loss. Speech difficulty. Denies any chest pain shortness of breath wheezing or cough. Denies abdominal pain nausea vomiting diarrhea. Denies any new numbness tingling focal weakness. All other review of systems reviewed and noncontributory. Past Medical History Past Medical History: Diabetes Mellitus, Hyperlipidemia, Hypertension, Liver Disease, Sleep Apnea/CPAP/BIPAP Additional Past Medical History / Comment(s): ARTHRITIS, kidney stones, possible dementia, kidney failure History of Any Multi-Drug Resistant Organisms: None Reported Past Surgical History: Back Surgery Additional Past Surgical History / Comment(s): MASS REMOVED FROM BACK OF HEAD, eye surgery, Past Anesthesia/Blood Transfusion Reactions: No Reported Reaction Past Psychological History: Depression Smoking Status: Never smoker Past Alcohol Use History: None Reported Past Drug Use History: None Reported - Past Family History Father Family Medical History: Diabetes Mellitus Mother Family Medical History: Diabetes Mellitus Brother(s) Family Medical History: Cancer Sister(s) Family Medical History: Cancer Medications and Allergies Home Medications Medication Instructions Recorded Confirmed Type DULoxetine HCL [Cymbalta] 30 mg PO DAILY 03/13/16 07/13/20 History Isosorbide Mononitrate ER [Imdur] 60 mg PO DAILY 03/13/16 07/13/20 History atenoloL [Tenormin] 50 mg PO DAILY 03/13/16 07/13/20 History cloNIDine HCL [Catapres] 0.2 mg PO TID 03/13/16 07/13/20 History Ergocalciferol [Vitamin D2 50,000 unit PO FR 04/20/19 07/13/20 History (DRISDOL)] INSULIN ASPART (NovoLOG) [NovoLOG See Protocol SQ AC-TID 04/20/19 07/13/20 History (formulary)] Albuterol Nebulized [Ventolin 2.5 mg INHALATION RT-QID PRN 07/08/20 07/13/20 History Nebulized] Losartan [Cozaar] 50 mg PO HS 07/08/20 07/13/20 History Omeprazole 20 mg PO DAILY 07/08/20 07/13/20 History Aspirin 81 mg PO DAILY #30 chewable 07/11/20 07/13/20 Rx Atorvastatin [Lipitor] 40 mg PO HS #30 tab 07/11/20 07/13/20 Rx Clopidogrel [Plavix] 75 mg PO DAILY #30 tab 07/11/20 07/13/20 Rx Furosemide [Lasix] 40 mg PO DAILY #0 07/11/20 07/13/20 Rx Insulin Glargine [Lantus] 60 unit SQ HS #0 07/11/20 07/13/20 Rx Allergies Allergy/AdvReac Type Severity Reaction Status Date / Time No Known Allergies Allergy Verified 07/12/20 23:44 Physical Examination - Vital Signs Vital Signs: Vital Signs Temp Pulse Pulse Resp BP BP Pulse Ox 07/13/20 08:00 98.4 F 68 16 161/74 97 07/13/20 03:57 98 F 74 16 180/67 96 07/13/20 01:29 68 19 186/80 96 07/13/20 01:16 98.0 F 73 16 197/88 96 07/13/20 01:00 65 18 194/90 97 07/13/20 00:48 61 18 191/89 99 07/13/20 00:33 61 18 226/116 07/13/20 00:22 62 18 224/100 07/12/20 23:59 59 L 18 213/105 100 07/12/20 23:26 98.7 F 64 18 142/113 99 Intake and Output 07/12/20 07/13/20 07/13/20 22:59 06:59 14:59 Other: Voiding Method Toilet # Voids 0 Weight 100.5 kg On examination patient is an elderly male, in no acute distress. Patient is alert and awake. Patient has significant expressive aphasia, in no anomia. He can comprehend fairly well. He has very slow mentation, prolonged latency time to answer questions. Patient could not name any object that was presented..Able to name his 's name or his own. However patient does appear fluent at times, with no obvious dysarthria. On cranial nerve examination his right pupil is slightly larger than the left, both are round and reacting. Patient has right homonymous hemianopia. Extraocular muscles intact. Face is symmetric, tongue protrudes the midline. Palatal elevation and sensation normal. Facial sensation normal hearing is decreased, shoulder shrug normal. On muscle strength testing there is no pronator drift and the strength is normal in arms and legs. Reflexes are absent, sensory touch is equal with no neglect. No ataxia for [id number] testing. Tone and bulk of muscles normal. Gait deferred. No obvious bruit, S1 and S2 audible, chest is clear abdomen soft nontender. Mild peripheral edema. Results - Laboratory Findings CBC and BMP: 07/13/20 00:20 07/13/20 00:20 Abnormal Lab Findings: Abnormal Labs 07/13/20 00:20 Sodium 136 L Creatinine 1.86 H Glucose 279 H Alkaline Phosphatase 153 H Assessment and Plan Assessment: * 74-year-old male with recent history of multifocal ischemic CVA on 07/08/2020, the largest one was involving the left parieto-occipital region. At that time he had presented with expressive aphasia and right homonymous hemianopia. Patient was discharged home on 07/11/2020, and now readmitted for uncontrolled blood pressure. Repeat computed tomography scan of head only showing evidence of evolving stroke that was present on last admission, with no acute ischemic stroke. His examination is stable as compared to the last exam before discharge. * Uncontrolled hypertension * Left ICA stenosis 70% involving the siphon. * Hyperlipidemia * Diabetes, not very well controlled. Plan: * Recommend aggressive control of blood pressure to target blood pressure <140/80. I would avoid excessive hypotension as well because of his history of left ICA stenosis. * Continue dual antiplatelet medications and statins. * Patient's examination is stable, with no new focal symptoms as compared to the last exam. * No other neurological workup indicated. * Neurologically clear, once cleared from a medical standpoint. * Discussed with Dr. Dickerson, as well as patient's and daughter in detail.
[2020-07-13] MEDS ORDERED: ONDANSETRON 4 MG/2 ML VIAL IVP PRN (15:27)
[2020-07-13 16:50] LABS: Glucose,Whole Blood 122 mg/dL (75-99)
[2020-07-13 20:23] LABS: Glucose,Whole Blood 135 mg/dL (75-99)
[2020-07-13] MEDS ORDERED: ATORVASTATIN 40 MG TAB PO SCH (21:00)
[2020-07-13] MEDS ORDERED: LOSARTAN 50 MG TAB PO SCH (21:00)
[2020-07-13] MEDS ORDERED: INSULIN DETEMIR (LEVEMIR) 100 UNIT/ML SYR SQ SCH (21:00)
--- NOTE | 2020-07-13 21:20 | P.HPIM ---
History of Present Illness H&P Date: 07/13/20 Chief Complaint: -Blood pressure History of presenting complaint: This is a 74-year-old patient of Dr. Santana. Chronic stable medical conditions include hyperlipidemia, diabetes, obstructive sleep apnea, osteoarthritis, any stones, cognitive impairment, dementia. Patient was discharged from the hospital on July [address] Lyle. Was admitted with acute cerebrovascular accident involving the left parietal lobe. KARISHMA-did not show any embolic source. Moderate block and out of. Preserved LV function. Normal valves. MRI of the brain did show any acute ischemic change within the left parietal occipital watershed area. Additional focal area of acute ischemic change in the right frontal lobe. MRA of the brain was unremarkable. 2-D echocardiogram showed EF of 55%. Normal LV function. Carotid Doppler was unremarkable. Patient has residual right-sided weakness. Needs assistance with walking. Patient now presents with elevated blood pressure. Recorded in the ER is 230 x 1 05. When the patient had left on July 11 last blood pressure r ecorded was 173/87. Patient feels a bit tired and weak. No new weakness. No change in speech. Patient's at the bedside. Review of systems: GEN.: Tired EYES: None HEENT: None NECK: None RESPIRATORY: None CARDIOVASCULAR: None GASTROINTESTINAL: None GENITOURINARY: None MUSCULOSKELETAL: None LYMPHATICS: None HEMATOLOGICAL: None PSYCHIATRY: Slightly forgetful NEUROLOGICAL: Some weakness on the right side Past medical history to include: Diabetes, hyperlipidemia, hypertension, obstructive sleep apnea, osteoarthritis, kidney stones, cognitive impairment, acute stroke, depression Social history: No history of smoking or alcohol. Lives with his . Physical examination: VITAL SIGNS: 98.7, 59, 18, 230, 105, 100% on 2 L GENERAL: BMI 34.7, laying in bed, awake. EYES: Pupils equal. Conjunctiva normal. HEENT: External appearance of nose and ears normal, oral cavity grossly normal. NECK: JVD not raised; masses not palpable. HEART: First and second heart sounds are normal; no edema. LUNGS: Respiratory rate normal; clear to auscultation. ABDOMEN: Soft, nontender, liver spleen not palpable, no masses palpable. PSYCH: Awake counseling questions l. NEUROLOGICAL: [Cranial nerves grossly intact; no facial asymmetry, power 4/5 on the right side LYMPHATICS: No lymph nodes palpable in the axilla and neck INVESTIGATIONS, reviewed in the clinical context: White count 8.1 hemoglobin 15.3 platelets 288 potassium 4.0 creatinine 1.86 Accu-Cheks 194 ProBNP 1110, troponin I less than 0.012 Computed tomography scan of the brain abnormal hyperdensity within the left parietal occipital area. Assessment: -Hypertensive urgency -Acute ischemic stroke in the left parieto-occipital area on 07/07/2020 -Obesity BMI 34.7 -Right paresis from recent stroke -Mild cognitive impairment -Diabetes mellitus type 2, chronically on insulin -Depression otherwise specified -Hyperlipidemia -Chronic kidney disease stage III from nephrosclerosis and diabetic nephropathy Plan: Patient's home medications resumed. We'll start the patient on amlodipine. Patient is oriented Catapres hence will DC the Tenormin. Due to prophylaxis. Care was discussed with the patient and at the bedside. Neurology was consulted. Past Medical History Past Medical History: Diabetes Mellitus, Hyperlipidemia, Hypertension, Liver Disease, Sleep Apnea/CPAP/BIPAP Additional Past Medical History / Comment(s): ARTHRITIS, kidney stones, possible dementia, kidney failure History of Any Multi-Drug Resistant Organisms: None Reported Past Surgical History: Back Surgery Additional Past Surgical History / Comment(s): MASS REMOVED FROM BACK OF HEAD, eye surgery, Past Anesthesia/Blood Transfusion Reactions: No Reported Reaction Past Psychological History: Depression Smoking Status: Never smoker Past Alcohol Use History: None Reported Past Drug Use History: None Reported - Past Family History Father Family Medical History: Diabetes Mellitus Mother Family Medical History: Diabetes Mellitus Brother(s) Family Medical History: Cancer Sister(s) Family Medical History: Cancer Medications and Allergies Home Medications Medication Instructions Recorded Confirmed Type DULoxetine HCL [Cymbalta] 30 mg PO DAILY 03/13/16 07/13/20 History Isosorbide Mononitrate ER [Imdur] 60 mg PO DAILY 03/13/16 07/13/20 History atenoloL [Tenormin] 50 mg PO DAILY 03/13/16 07/13/20 History cloNIDine HCL [Catapres] 0.2 mg PO TID 03/13/16 07/13/20 History Ergocalciferol [Vitamin D2 50,000 unit PO FR 04/20/19 07/13/20 History (DRISDOL)] INSULIN ASPART (NovoLOG) [NovoLOG See Protocol SQ AC-TID 04/20/19 07/13/20 History (formulary)] Albuterol Nebulized [Ventolin 2.5 mg INHALATION RT-QID PRN 07/08/20 07/13/20 History Nebulized] Losartan [Cozaar] 50 mg PO HS 07/08/20 07/13/20 History Omeprazole 20 mg PO DAILY 07/08/20 07/13/20 History Aspirin 81 mg PO DAILY #30 chewable 07/11/20 07/13/20 Rx Atorvastatin [Lipitor] 40 mg PO HS #30 tab 07/11/20 07/13/20 Rx Clopidogrel [Plavix] 75 mg PO DAILY #30 tab 07/11/20 07/13/20 Rx Furosemide [Lasix] 40 mg PO DAILY #0 07/11/20 07/13/20 Rx Insulin Glargine [Lantus] 60 unit SQ HS #0 07/11/20 07/13/20 Rx Allergies Allergy/AdvReac Type Severity Reaction Status Date / Time No Known Allergies Allergy Verified 07/12/20 23:44 Physical Exam Vitals: Vital Signs Temp Pulse Pulse Resp BP BP Pulse Ox 07/13/20 08:00 98.4 F 68 16 161/74 97 07/13/20 03:57 98 F 74 16 180/67 96 07/13/20 01:29 68 19 186/80 96 07/13/20 01:16 98.0 F 73 16 197/88 96 07/13/20 01:00 65 18 194/90 97 07/13/20 00:48 61 18 191/89 99 07/13/20 00:33 61 18 226/116 07/13/20 00:22 62 18 224/100 07/12/20 23:59 59 L 18 213/105 100 07/12/20 23:26 98.7 F 64 18 142/113 99 Intake and Output 07/12/20 07/13/20 07/13/20 22:59 06:59 14:59 Other: Voiding Method Toilet # Voids 0 Weight 100.5 kg Results CBC & Chem 7: 07/13/20 00:20 07/13/20 00:20 Labs: Abnormal Lab Results - Last 24 Hours (Table) 07/13/20 Range/Units 00:20 Sodium 136 L (137-145) mmol/L Creatinine 1.86 H (0.66-1.25) mg/dL Glucose 279 H (74-99) mg/dL Alkaline Phosphatase 153 H (38-126) U/L Thrombosis Risk Factor Assmnt - Choose All That Apply Each Factor Represents 1 point: Obesity (BMI >25) Each Risk Factor Represents 2 Points: Age 61-74 years Each Risk Factor Represents 5 Points: Stroke (< 1 month) Thrombosis Risk Factor Assessment Total Risk Factor Score: 8 Thrombosis Risk Factor Assessment Level: High Risk
[2020-07-13] MEDS ORDERED: amLODIPine 10 MG TAB PO SCH (21:30)
[2020-07-14] MEDS: hydrALAZINE HCL 20 MG/ML 1 ML VIAL IVP PRN (04:28)
[2020-07-14] MEDS: INSULIN ASPART (NovoLOG) 100 UNIT/ML VIAL SQ SCH ×2 (06:16→12:48)
[2020-07-14 06:33] LABS: Glucose,Whole Blood 67 mg/dL (75-99)
[2020-07-14 06:33] LABS: Glucose,Whole Blood 52 mg/dL (75-99)
[2020-07-14 06:52] LABS: Glucose,Whole Blood 90 mg/dL (75-99)
[2020-07-14 08:15] LABS: HCT 44.7 % (39.0-53.0); MCH 29.5 pg (25.0-35.0); MCHC 31.3 g/dL (31.0-37.0); MCV 94.3 fL (80.0-100.0); Mean Platelet Volume 8.3; Platelet Count 284 k/uL (150-450); RBC 4.74 m/uL (4.30-5.90); RDW 13.9 % (11.5-15.5); WBC 8.6 k/uL (3.8-10.6)
[2020-07-14 08:28] LABS: Calcium 8.5 mg/dL (8.4-10.2); Potassium 3.9 mmol/L (3.5-5.1)
[2020-07-14] MEDS ORDERED: FUROSEMIDE 40 MG TAB PO SCH (09:00)
[2020-07-14] MEDS: PANTOPRAZOLE 40 MG TABLET PO SCH (09:54)
[2020-07-14] MEDS: ISOSORBIDE MONONITRATE ER 60 MG TAB.ER.24H PO SCH (09:54)
[2020-07-14] MEDS: DULoxetine HCL 30 MG CAPSULE.DR PO SCH (09:54)
[2020-07-14] MEDS: cloNIDine HCL 0.2 MG TAB PO SCH (09:54)
[2020-07-14] MEDS: ASPIRIN 81 MG PO SCH (09:54)
[2020-07-14] MEDS: CLOPIDOGREL 75 MG TAB PO SCH (09:54)
[2020-07-14 11:35] VITALS: BP 138/80
[2020-07-14 12:01] VITALS: PULSE 63; RESP 20; TEMP 97.9
[2020-07-14 12:05] LABS: Glucose,Whole Blood 144 mg/dL (75-99)
[2020-07-14] MEDS ORDERED: ACETAMINOPHEN TAB 325 MG TAB PO PRN (12:51)
[2020-07-14 14:20] LABS: Hemoglobin A1C 8.1 % (4.0-6.0)
--- NOTE | 2020-07-14 23:08 | P.DS ---
Providers Date of admission: 07/13/20 00:49 Expected date of discharge: 07/14/20 Attending physician: Tadeo Dickerson Consults: 07/13/20 00:56 Consult Physician Routine Consulting Provider: Tabitha Bustillo Consult Reason/Comments: CVA Do you want consulting provider notified?: Yes Primary care physician: [facility] Course: Chief Complaint: -Blood pressure History of presenting complaint: This is a 74-year-old patient of Dr. Santana. Chronic stable medical conditions include hyperlipidemia, diabetes, obstructive sleep apnea, osteoarthritis, any stones, cognitive impairment, dementia. Patient was discharged from the hospital on July [address] Lyle. Was admitted with acute cerebrovascular accident involving the left parietal lobe. KARISHMA-did not show any embolic source. Moderate block and out of. Preserved LV function. Normal valves. MRI of the brain did show any acute ischemic change within the left parietal occipital watershed area. Additional focal area of acute ischemic change in the right frontal lobe. MRA of the brain was unremarkable. 2-D echocardiogram showed EF of 55%. Normal LV function. Carotid Doppler was unremarkable. Patient has residual right-sided weakness. Needs assistance with walking. Patient now presents with elevated blood pressure. Recorded in the ER is 230 x 1 05. When the patient had left on July 11 last blood pressure recorded was 173/87. Patient feels a bit tired and weak. No new weakness. No change in speech. Patient's at the bedside. Amlodipine was added. Tenormin was discontinued. Blood pressure well controlled. Patient dose of Lantus cutback because of low sugars. Today care was discussed with the patient daughter. Questions answered. Discussion and discharge planning more than 35 minutes Consultation: Dr. Nash from neurology Physical examination: VITAL SIGNS: 97.9, 63, 20, 138/80, 95% room air GENERAL: BMI 42.8, sitting in the age of the bed, comfortable EYES: Pupils equal. Conjunctiva normal. HEENT: External appearance of nose and ears normal, oral cavity grossly normal. NECK: JVD not raised; masses not palpable. HEART: First and second heart sounds are normal; no edema. LUNGS: Respiratory rate normal; clear to auscultation. ABDOMEN: Soft, nontender, liver spleen not palpable, no masses palpable. PSYCH: Awake simple question NEUROLOGICAL: [Cranial nerves grossly intact; no facial asymmetry, power 4/5 on the right side INVESTIGATIONS, reviewed in the clinical context: White count 8.1 hemoglobin 15.3 platelets 288 potassium 4.0 creatinine 1.86 Accu-Cheks 194 ProBNP 1110, troponin I less than 0.012 Computed tomography scan of the brain abnormal hyperdensity within the left parietal occipital area. Assessment: -Hypertensive urgency -Acute ischemic stroke in the left parieto-occipital area on 07/07/2020 -Obesity BMI 34.7 -Right paresis from recent stroke -Mild cognitive impairment -Diabetes mellitus type 2, chronically on insulin -Depression otherwise specified -Hyperlipidemia -Chronic kidney disease stage III from hypertensive nephrosclerosis and diabetic nephropathy Disposition: Home Patient Condition at Discharge: Stable Plan - Discharge Summary Discharge Rx Participant: No New Discharge Prescriptions: New amLODIPine [Norvasc] 10 mg PO HS #30 tab Continue Isosorbide Mononitrate ER [Imdur] 60 mg PO DAILY cloNIDine HCL [Catapres] 0.2 mg PO TID DULoxetine HCL [Cymbalta] 30 mg PO DAILY Ergocalciferol [Vitamin D2 (DRISDOL)] 50,000 unit PO FR INSULIN ASPART (NovoLOG) [NovoLOG (formulary)] See Protocol SQ AC-TID Losartan [Cozaar] 50 mg PO HS Albuterol Nebulized [Ventolin Nebulized] 2.5 mg INHALATION RT-QID PRN PRN Reason: Shortness Of Breath Omeprazole 20 mg PO DAILY Aspirin 81 mg PO DAILY #30 chewable Atorvastatin [Lipitor] 40 mg PO HS #30 tab Clopidogrel [Plavix] 75 mg PO DAILY #30 tab Furosemide [Lasix] 40 mg PO DAILY #0 Changed Insulin Glargine [Lantus] 48 unit SQ HS #0 Discontinued atenoloL [Tenormin] 50 mg PO DAILY Discharge Medication List DULoxetine HCL [Cymbalta] 30 mg PO DAILY 03/13/16 [History] Isosorbide Mononitrate ER [Imdur] 60 mg PO DAILY 03/13/16 [History] cloNIDine HCL [Catapres] 0.2 mg PO TID 03/13/16 [History] Ergocalciferol [Vitamin D2 (DRISDOL)] 50,000 unit PO FR 04/20/19 [History] INSULIN ASPART (NovoLOG) [NovoLOG (formulary)] See Protocol SQ AC-TID 04/20/19 [History] Albuterol Nebulized [Ventolin Nebulized] 2.5 mg INHALATION RT-QID PRN 07/08/20 [History] Losartan [Cozaar] 50 mg PO HS 07/08/20 [History] Omeprazole 20 mg PO DAILY 07/08/20 [History] Aspirin 81 mg PO DAILY #30 chewable 07/11/20 [Rx] Atorvastatin [Lipitor] 40 mg PO HS #30 tab 07/11/20 [Rx] Clopidogrel [Plavix] 75 mg PO DAILY #30 tab 07/11/20 [Rx] Furosemide [Lasix] 40 mg PO DAILY #0 07/11/20 [Rx] Insulin Glargine [Lantus] 48 unit SQ HS #0 07/14/20 [Rx] amLODIPine [Norvasc] 10 mg PO HS #30 tab 07/14/20 [Rx] Follow up Appointment(s)/Referral(s): Dennis Santana DO [Primary Care Provider] - 1-2 days Discharge Disposition: HOME SELF-CARE
--- NOTE | 2020-07-17 17:27 | CDI ---
Date: 07.17.2020 CDS/Electromechanical Assembler Name: Awa Rosales Phone: If any questions, call Tori Siddiqui [facility] at [phone] Patient Name: Edgardo Alvarez Admit Date 07.13.20 Discharge Date: 07.14.20 ATTENTION: The [facility] Coding Staff appreciate your assistance in clarifying documentation. Please respond to the clarification below the line at the bottom and electronically sign. The [facility] Coding staff will review the response and follow-up if needed. Please note: Queries are made part of the Legal Health Record. If you have any questions, please contact the [facility]. Dear Dr. Bustillo In order to code to the greatest specificity and for the greatest reimbursement I need the following information: In your Consult you have documented Diabetes, not very well controlled. Lab results dated 07.13.20: Glucose 279 Lab results dated 07.14.20 A1C % - 8.1 estimated aver glucose - 186 Please clarify not very well controlled ___Hyperglycemia ___Hypoglycemia ___Unspecified Thank you for your kind consideration. Mainly hyperglycemia, as hemoglobin A1c is 8.1. Recommendation is to target A1c <7.0. However in the admission patient has been running episodes of hypoglycemia as well. MTDD
== END 2020-07-14 14:12 | disposition home or self-care (01) ==
LOC: EC 23:24 → 3SCARD 07-13 00:49
PROVIDERS: ADMIT Hospitalist; ATTEND Hospitalist
DX: I16.0 Hypertensive urgency (principal); I63.9 Cerebral infarction, unspecified; G81.91 Hemiplegia, unspecified affecting right dominant side; R47.9 Unspecified speech disturbances; H53.9 Unspecified visual disturbance; R41.89 Other symptoms and signs involving cognitive functions and awareness; R47.01 Aphasia; H53.47 Heteronymous bilateral field defects; E66.9 Obesity, unspecified; E78.5 Hyperlipidemia, unspecified; F32.9 Major depressive disorder, single episode, unspecified; I12.9 Hypertensive chronic kidney disease with stage 1 through stage 4 chronic kidney disease, or unspecified chronic kidney disease; E11.22 Type 2 diabetes mellitus with diabetic chronic kidney disease; E11.21 Type 2 diabetes mellitus with diabetic nephropathy; M19.90 Unspecified osteoarthritis, unspecified site; G47.33 Obstructive sleep apnea (adult) (pediatric); N18.30 Chronic kidney disease, stage 3 unspecified; F03.90 Unspecified dementia, unspecified severity, without behavioral disturbance, psychotic disturbance, mood disturbance, and anxiety; E11.65 Type 2 diabetes mellitus with hyperglycemia; I67.82 Cerebral ischemia; E11.649 Type 2 diabetes mellitus with hypoglycemia without coma; I65.22 Occlusion and stenosis of left carotid artery; Z79.899 Other long term (current) drug therapy; Z79.4 Long term (current) use of insulin; Z87.19 Personal history of other diseases of the digestive system; Z99.89 Dependence on other enabling machines and devices; Z87.442 Personal history of urinary calculi; Z87.448 Personal history of other diseases of urinary system; Z98.890 Other specified postprocedural states; Z79.82 Long term (current) use of aspirin; Z79.02 Long term (current) use of antithrombotics/antiplatelets; Z68.34 Body mass index [BMI] 34.0-34.9, adult; Z83.3 Family history of diabetes mellitus; Z80.9 Family history of malignant neoplasm, unspecified
CPT/HCPCS: 96376 ×2; 96375; 96374; 99285; 36415; 83880; 80053; 80048; 83735; 84484; 85025; 85027; 85610; 85730; 83036; 70450; G0378 ×2; J0360 ×2; J2405

== ENCOUNTER 2020-10-26 06:57 | Day surgery (SDC) | payer MEDICARE ==
[2020-10-24 11:56] VITALS: BMI 29.0
[~2020-10-26 06:57] MED LIST: SODIUM CHLORIDE 0.9% 1,000 ML IV SCH
[2020-10-26 07:23] VITALS: RESP 18; TEMP 98.4
[2020-10-26 07:25] LABS: Glucose,Whole Blood 155 mg/dL (75-99)
[2020-10-26] MEDS ORDERED: LIDOCAINE 1% INJ 10MG/ML (20 ML MDV) ONE (07:40)
[2020-10-26] MEDS ORDERED: fentaNYL (PF) 50 MCG/ML 2 ML AMP ONE (08:04)
[2020-10-26] MEDS ORDERED: MIDAZOLAM 2 MG/2 ML VIAL IVP ONE (08:04)
[2020-10-26] MEDS ORDERED: fentaNYL (PF) 50 MCG/ML 2 ML AMP IVP ONE (08:04)
[2020-10-26] MEDS ORDERED: LIDOCAINE 1% INJ 10MG/ML (20 ML MDV) SQ ONE (08:05)
[2020-10-26] MEDS ORDERED: ACETAMINOPHEN TAB 325 MG TAB PO PRN (08:13)
--- NOTE | 2020-10-26 08:21 | P.PCN ---
Date of Procedure: 10/26/20 Preoperative Diagnosis: Cryptogenic CVA Postoperative Diagnosis: The same Procedure(s) Performed: Loop recorder insertion Description of Procedure: This patient was brought to the lab in a fasting state. He was prepped and draped in the usual fashion. Patient was given prophylactic antibiotics. The skin in the third intercostal space on the left side was infiltrated with lidocaine. An incision was made in the usual fashion and the loop recorder was inserted without any difficulty. Patient tolerated the procedure well. No immediate complications. The thresholds are excellent. Usual settings were set up for the device. Patient will have follow-up in the office in one week. He'll continue current medical therapy. Patient was given IV Versed 1 mg and fentanyl 25 g. Duration of the procedure is about 6-7 minutes Final impression: #1. Successful implantation of a loop recorder. Plan: Patient will be monitored for a couple of hours. If stable, patient is discharged home. Patient will continue home medications plus prophylactic antibiotic. He'll keep the incision dry until seen in the office. Follow-up in the office in one week
[2020-10-26 09:15] VITALS: BP 165/79; PULSE 68
== END 2020-10-26 09:10 | disposition home or self-care (01) ==
LOC: CATHEP 06:57
PROVIDERS: ATTEND Internal Medicine Cardiovascular Disease
DX: I63.9 Cerebral infarction, unspecified (principal); E78.5 Hyperlipidemia, unspecified; I10 Essential (primary) hypertension; E11.9 Type 2 diabetes mellitus without complications; I25.10 Atherosclerotic heart disease of native coronary artery without angina pectoris; E78.00 Pure hypercholesterolemia, unspecified; R60.0 Localized edema; Z79.4 Long term (current) use of insulin; Z79.899 Other long term (current) drug therapy; Z79.82 Long term (current) use of aspirin; Z79.02 Long term (current) use of antithrombotics/antiplatelets
CPT/HCPCS: 33285; C1764; J2250; J0690; J2001; J3010

== ENCOUNTER 2020-11-03 10:45 | Observation (INO) | payer MEDICARE ==
[2020-11-03 11:02] LABS: Glucose,Whole Blood 222 mg/dL (75-99)
[2020-11-03 11:25] LABS: Basophils # (A) 0.1 k/uL (0-0.2); Basophils % (A) 1 %; Eosinophils # (A) 0.1 k/uL (0-0.7); Eosinophils % (A) 1 %; HCT 40.9 % (39.0-53.0); HGB 13.7 gm/dL (13.0-17.5); Lymphocytes # (A) 2.1 k/uL (1.0-4.8); Lymphocytes % (A) 24 %; MCH 30.1 pg (25.0-35.0); MCHC 33.5 g/dL (31.0-37.0); MCV 89.9 fL (80.0-100.0); Mean Platelet Volume 7.4; Monocytes # (A) 0.5 k/uL (0-1.0); Monocytes % (A) 6 %; Neutrophils % (A) 68 %; Platelet Count 314 k/uL (150-450); RBC 4.54 m/uL (4.30-5.90); WBC 8.8 k/uL (3.8-10.6)
[2020-11-03 11:35] LABS: Albumin 3.5 g/dL (3.5-5.0); Calcium 9.1 mg/dL (8.4-10.2); Magnesium 2.3 mg/dL (1.6-2.3); Potassium 4.4 mmol/L (3.5-5.1); Total Bilirubin 0.6 mg/dL (0.2-1.3); Total Protein 6.5 g/dL (6.3-8.2)
[2020-11-03 11:38] LABS: INR 0.9 (<1.2); Partial Thromboplastin Time 23.1 sec (22.0-30.0); Prothrombin Time 9.8 sec (9.0-12.0)
--- NOTE | 2020-11-03 11:41 | ED ---
General Adult HPI - General Chief complaint: Neuro Symptoms/Deficit Stated complaint: AMS Time Seen by Provider: 11/03/20 10:45 Source: patient, EMS, RN notes reviewed, old records reviewed Mode of arrival: EMS Limitations: no limitations - History of Present Illness Initial comments: This is a 75-year-old male who presents emergency Department because he had an episode of decreased responsiveness that last approximate 5 minutes. Patient had a stroke in June and has right-sided weakness and coordination problems. According to family did not note any true bleeding in the face any change in his speech or any increased weakness. Patient himself states he feels at his baseline currently. Patient denies headache patient denies any new numbness or weakness. Patient denies any chest pain palpitations difficulty breathing shortness of breath. Patient has no recent history of fever chills or cough. Patient denies abdominal pain patient's nausea vomiting diarrhea. Family states he had a loop recorder placed recently because he has had multiple episodes of Decreased responsiveness since July. - Related Data Home Medications Medication Instructions Recorded Confirmed DULoxetine HCL [Cymbalta] 30 mg PO HS 03/13/16 11/03/20 Isosorbide Mononitrate ER [Imdur] 60 mg PO DAILY 03/13/16 11/03/20 cloNIDine HCL [Catapres] 0.2 mg PO TID 03/13/16 11/03/20 Albuterol Nebulized [Ventolin 2.5 mg INHALATION RT-QID PRN 07/08/20 11/03/20 Nebulized] Losartan [Cozaar] 100 mg PO HS 07/08/20 11/03/20 Omeprazole 20 mg PO DAILY 07/08/20 11/03/20 Insulin Glargine [Lantus] 36 unit SQ DAILY 10/24/20 11/03/20 Atenolol [Tenormin] 25 mg PO DAILY 11/03/20 11/03/20 Canagliflozin [Invokana] 300 mg PO DAILY 11/03/20 11/03/20 Dulaglutide [Trulicity] 1.5 mg SQ SA 11/03/20 11/03/20 Ergocalciferol (Vitamin D2) 50 mcg PO DAILY 11/03/20 11/03/20 [Vitamin D2 (2000 Iu)] INSULIN ASPART (NovoLOG) [NovoLOG 5 unit SQ AC-BRKFST 11/03/20 11/03/20 (formulary)] INSULIN ASPART (NovoLOG) [NovoLOG 5 unit SQ AC-LUNCH 11/03/20 11/03/20 (formulary)] INSULIN ASPART (NovoLOG) [NovoLOG 12 unit SQ AC-SUPPER 11/03/20 11/03/20 (formulary)] INSULIN ASPART (NovoLOG) [NovoLOG See Protocol SQ AC-TID PRN 11/03/20 11/03/20 (formulary)] Previous Rx's Medication Instructions Recorded Aspirin 81 mg PO DAILY #30 chewable 07/11/20 Atorvastatin [Lipitor] 40 mg PO HS #30 tab 07/11/20 Clopidogrel [Plavix] 75 mg PO DAILY #30 tab 07/11/20 Furosemide [Lasix] 40 mg PO DAILY #0 07/11/20 amLODIPine [Norvasc] 10 mg PO HS #30 tab 07/14/20 Allergies Allergy/AdvReac Type Severity Reaction Status Date / Time No Known Allergies Allergy Verified 11/03/20 11:27 Review of Systems ROS Statement: Those systems with pertinent positive or pertinent negative responses have been documented in the HPI. ROS Other: All systems not noted in ROS Statement are negative. Past Medical History Past Medical History: CVA/TIA, Diabetes Mellitus, Hyperlipidemia, Hypertension, Liver Disease, Renal Disease, Sleep Apnea/CPAP/BIPAP Additional Past Medical History / Comment(s): ARTHRITIS, kidney stones, possible dementia, kidney failure, neuropathy alia legs, carpal tunnel. CVA-oct 20 balance issues,speech impairment,vision impairment, receives injections to eyes r/t bleeding History of Any Multi-Drug Resistant Organisms: None Reported Past Surgical History: Back Surgery Additional Past Surgical History / Comment(s): MASS REMOVED FROM BACK OF HEAD, eye surgery, Past Anesthesia/Blood Transfusion Reactions: No Reported Reaction Past Psychological History: Depression Smoking Status: Never smoker Past Alcohol Use History: None Reported Past Drug Use History: None Reported - Past Family History Father Family Medical History: Diabetes Mellitus Mother Family Medical History: Diabetes Mellitus Brother(s) Family Medical History: Cancer Sister(s) Family Medical History: Cancer General Exam - General Exam Comments Initial Comments: GENERAL: Patient is well-developed and well-nourished. Patient is nontoxic and well- hydrated and is in no acute distress. ENT: Neck is soft and supple. No significant lymphadenopathy is noted. Oropharynx is clear. Moist mucous membranes. Neck has full range of motion without eliciting any pain. EYES: The sclera were anicteric and conjunctiva were pink and moist. Extraocular movements were intact and pupils were equal round and reactive to light. Eyelids were unremarkable. PULMONARY: Unlabored respirations. Good breath sounds bilaterally. No audible rales rhonchi or wheezing was noted. CARDIOVASCULAR: There is a regular rate and rhythm without any murmurs gallops or rubs. Femoral pulses are equal bilaterally ABDOMEN: Soft and nontender with normal bowel sounds. No palpable organomegaly was noted. There is no palpable pulsatile mass. SKIN: Skin is clear with no lesions or rashes and otherwise unremarkable. NEUROLOGIC: Patient is alert and oriented x3. Cranial nerves II through XII are grossly intact. Patient has decreased weakness on theThe right side according to patient this is his baseline since June.. Normal speech, volume and content. Symmetrical smile. Patient's finger to nose on the right side is slightly off when compared left side. MUSCULOSKELETAL: Patient has no lower extremity edema or calf tenderness. LYMPHATICS: No significant lymphadenopathy is noted PSYCHIATRIC: Normal psychiatric evaluation. Limitations: no limitations Course Vital Signs 11/03/20 10:46 Temperature 98.7 F Pulse Rate 68 Respiratory 18 Rate Blood Pressure 140/69 O2 Sat by Pulse 97 Oximetry Medical Decision Making - Medical Decision Making EKG shows normal sinus rhythm at 65 bpm WV interval is 176 QRS is 96 QT interval 388 QTC is 403. Patient's EKG shows no ST segment elevation or depression. CT of the brain shows the same infarct from June. Patient is currently at his baseline neurologically according to himself and his family.Progress spoke with Dr. Dickerson agreed to admit the patient admitted the patient wrote admitting orders. - Lab Data Result diagrams: 11/03/20 11:17 11/03/20 11:17 Lab Results 11/03/20 11/03/20 11/03/20 Range/Units 10:50 11:17 11:17 WBC 8.8 (3.8-10.6) k/uL RBC 4.54 (4.30-5.90) m/uL Hgb 13.7 (13.0-17.5) gm/dL Hct 40.9 (39.0-53.0) % MCV 89.9 (80.0-100.0) fL MCH 30.1 (25.0-35.0) pg MCHC 33.5 (31.0-37.0) g/dL RDW 14.0 (11.5-15.5) % Plt Count 314 (150-450) k/uL MPV 7.4 Neutrophils % 68 % Lymphocytes % 24 % Monocytes % 6 % Eosinophils % 1 % Basophils % 1 % Neutrophils # 6.0 (1.3-7.7) k/uL Lymphocytes # 2.1 (1.0-4.8) k/uL Monocytes # 0.5 (0-1.0) k/uL Eosinophils # 0.1 (0-0.7) k/uL Basophils # 0.1 (0-0.2) k/uL PT 9.8 (9.0-12.0) sec INR 0.9 (<1.2) APTT 23.1 (22.0-30.0) sec Sodium (137-145) mmol/L Potassium (3.5-5.1) mmol/L Chloride (98-107) mmol/L Carbon Dioxide (22-30) mmol/L Anion Gap mmol/L BUN (9-20) mg/dL Creatinine (0.66-1.25) mg/dL Est GFR (CKD-EPI)AfAm (>60 ml/min/1.73 sqM) Est GFR (CKD-EPI)NonAf (>60 ml/min/1.73 sqM) Glucose (74-99) mg/dL POC Glucose (mg/dL) 222 H (75-99) mg/dL POC Glu Manager Floor ID [place], [place] Calcium (8.4-10.2) mg/dL Magnesium (1.6-2.3) mg/dL Total Bilirubin (0.2-1.3) mg/dL AST (17-59) U/L ALT (4-49) U/L Alkaline Phosphatase (38-126) U/L Troponin I (0.000-0.034) ng/mL Total Protein (6.3-8.2) g/dL Albumin (3.5-5.0) g/dL 11/03/20 11/03/20 Range/Units 11:17 11:17 WBC (3.8-10.6) k/uL RBC (4.30-5.90) m/uL Hgb (13.0-17.5) gm/dL Hct (39.0-53.0) % MCV (80.0-100.0) fL MCH (25.0-35.0) pg MCHC (31.0-37.0) g/dL RDW (11.5-15.5) % Plt Count (150-450) k/uL MPV Neutrophils % % Lymphocytes % % Monocytes % % Eosinophils % % Basophils % % Neutrophils # (1.3-7.7) k/uL Lymphocytes # (1.0-4.8) k/uL Monocytes # (0-1.0) k/uL Eosinophils # (0-0.7) k/uL Basophils # (0-0.2) k/uL PT (9.0-12.0) sec INR (<1.2) APTT (22.0-30.0) sec Sodium 138 (137-145) mmol/L Potassium 4.4 (3.5-5.1) mmol/L Chloride 105 (98-107) mmol/L Carbon Dioxide 23 (22-30) mmol/L Anion Gap 10 mmol/L BUN 37 H (9-20) mg/dL Creatinine 1.99 H (0.66-1.25) mg/dL Est GFR (CKD-EPI)AfAm 37 (>60 ml/min/1.73 sqM) Est GFR (CKD-EPI)NonAf 32 (>60 ml/min/1.73 sqM) Glucose 168 H (74-99) mg/dL POC Glucose (mg/dL) (75-99) mg/dL POC Glu Manager Floor ID Calcium 9.1 (8.4-10.2) mg/dL Magnesium 2.3 (1.6-2.3) mg/dL Total Bilirubin 0.6 (0.2-1.3) mg/dL AST 25 (17-59) U/L ALT 18 (4-49) U/L Alkaline Phosphatase 118 (38-126) U/L Troponin I <0.012 (0.000-0.034) ng/mL Total Protein 6.5 (6.3-8.2) g/dL Albumin 3.5 (3.5-5.0) g/dL Disposition Clinical Impression: Decreased responsiveness Disposition: ADMITTED IP TO THIS HOSP Referrals: None,Stated [REFERRING] - 1-2 days Time of Disposition: 13:12
--- NOTE | 2020-11-03 11:59 | XR ---
EXAMINATION TYPE: XR chest 2V DATE OF EXAM: 11/03/2020 COMPARISON: 07/08/2020 HISTORY: Chest pain TECHNIQUE: Frontal and lateral views of the chest are obtained. FINDINGS: There is no focal air space opacity, pleural effusion, or pneumothorax seen. The cardiac silhouette size is within normal limits. The osseous structures are intact. IMPRESSION: No acute cardiopulmonary process.
--- NOTE | 2020-11-03 12:04 | CT ---
EXAMINATION TYPE: CT brain wo con DATE OF EXAM: 11/03/2020 COMPARISON: 07/13/2020 HISTORY: CVA CT DLP: 1125.4 mGycm Automated exposure control for dose reduction was used. FINDINGS: The ventricles, basal cisterns and sulci over the convexities are within normal limits. There is a large area of decreased density involving the left parietal-occipital cortex and subcortic al white matter which was seen previously but is less dense and smaller in size than on the prior skip dy. This is consistent with an evolving subacute infarct. There is no acute intra or extra-axial hemo rrhage. There is no shift of the midline structures. The posterior fossa including the brainstem, fourth ventricle and cerebellar pontine angles appear no rmal. The intraorbital contents appear normal and symmetric. Visualized paranasal sinuses and mastoid air cells are well aerated. IMPRESSION: SUBACUTE LEFT PARIETO-OCCIPITAL EVOLVING INFARCT WITHOUT EVIDENCE OF ACUTE BLEED OR MASS EFFECT.
[2020-11-03] MEDS ORDERED: ASPIRIN 325 MG TAB PO STA (13:12)
[2020-11-03] MEDS ORDERED: levETIRAcetam IV 1,500 MG in SALINE 1 100ML.BAG IVPB STA (15:50)
[2020-11-03 17:12] LABS: Glucose,Whole Blood 101 mg/dL (75-99)
[2020-11-03] MEDS: CLOPIDOGREL 75 MG TAB PO SCH (17:13)
--- NOTE | 2020-11-03 17:15 | P.CNNES ---
History of Present Illness Consult date: 11/03/20 Requesting physician: Felipe Easton Reason for Consult: episode of unresponsiveness History of Present Illness: This is 75-years old gentleman with multiple strokes involving bihemispheric region , left ICA stenosis (70%), really controlled diabetes, chronic kidney insufficiency, hypertension, hyperlipidemia, cognitive impairment that presented to the emergency department for an episode of unresponsiveness.I spoke with the patient's daughter (Natacha) via phone. She stated, today where he complains of a headache, he lost his vision at 10am (could not see out of left eye) then non-responsiveness. His episode of not respoding lasted 5 minutes. No jerking of any extremities. No foaming around the mouth. No urinary or bowel incontinence. He has a similiar episode this past lasting 5 minutes but refused to seek medical attention. He usually have these episode in the morning. After these episodes the feels generalized fatigue and going to sleep for 1 hour. Prior to the episode he complains of headache. In august 2020 he had an episode of eyes rolled back, fell to the right, not responding 5 minutes. In August 2020 he was seen at [facility] and had all the stroke work-up and EEG and they were told he had TIA. He has loop record for the past one week (and were told so far no events). He follows-up with neurologist Dr. Garrison and his next appointment is 11/12/2020 (He was last seen by him on 09/17/2020). He is on ASA 81mg and Plavix 75mg daily. And is on Lipitor 40mg daily. Patient was seen by Dr. Bustillo in the past and last time he was consulted on 07/13/2020 for stroke. His last note is on 07/11/[address] Nash felt like the patient had acute ischemic stroke, multiple 3 involving bihemispheric regions, large involving the left parietal occipital region likely embolic in nature. Patient had as left ICA stenosis about 70% involving the siphon. Diabetes is poorly controlled. He recommended the patient to be on aspirin 325 and Plavix 75 mg and then upon discharge may switch from a full dose to a low dose. It seems that the patient had a KARISHMA in the past and it was negative for embolic source. Patient had MRI of the brain was confirmed moderate sized acute ischemic stroke involving the left parietal occipital region additional 2 small focal areas of ischemic infarction also seen in the right frontal periventricular region, adjacent to the frontal horn in the left medial frontal cortical region. Workup in the ED consisted of: Vital signs was blood pressure 140/69, heart rate of 16, respiratory of 18, CABG of 98.7 Fahrenheit oral and pulse ox of 97% at room air. CT head is reported as subacute left parieto-occipital evolving infarct without evidence of acute bleed or mass effect. I personally reviewed it and I agree that there is no acute ischemic stroke. There is any intraparenchymal hemorrhage. I feel the left occipital parietal is more chronic rather than subacute. CT is reported as normal sinus rhythm with sinus arrhythmia. Normal EKG. White blood cells 8.8 which is normal. Initial serum glucose is 222. AST 25 and ALT of 18. BUN is 37 and creatinine is 1.99. Review of Systems Review of system: The 12 point system was reviewed and apparent positive and negative per HPI. Past Medical History Past Medical History: CVA/TIA, Diabetes Mellitus, Hyperlipidemia, Hypertension, Liver Disease, Renal Disease, Sleep Apnea/CPAP/BIPAP Additional Past Medical History / Comment(s): ARTHRITIS, kidney stones, possible dementia, kidney failure, neuropathy alia legs, carpal tunnel. CVA-oct 20 balance issues,speech impairment,vision impairment, receives injections to eyes r/t bleeding History of Any Multi-Drug Resistant Organisms: None Reported Past Surgical History: Back Surgery Additional Past Surgical History / Comment(s): MASS REMOVED FROM BACK OF HEAD, eye surgery, Past Anesthesia/Blood Transfusion Reactions: No Reported Reaction Past Psychological History: Depression Smoking Status: Never smoker Past Alcohol Use History: None Reported Past Drug Use History: None Reported - Past Family History Father Family Medical History: Diabetes Mellitus Mother Family Medical History: Diabetes Mellitus Brother(s) Family Medical History: Cancer Sister(s) Family Medical History: Cancer Medications and Allergies Home Medications Medication Instructions Recorded Confirmed Type DULoxetine HCL [Cymbalta] 30 mg PO HS 03/13/16 11/03/20 History Isosorbide Mononitrate ER [Imdur] 60 mg PO DAILY 03/13/16 11/03/20 History cloNIDine HCL [Catapres] 0.2 mg PO TID 03/13/16 11/03/20 History Albuterol Nebulized [Ventolin 2.5 mg INHALATION RT-QID PRN 07/08/20 11/03/20 History Nebulized] Losartan [Cozaar] 100 mg PO HS 07/08/20 11/03/20 History Omeprazole 20 mg PO DAILY 07/08/20 11/03/20 History Aspirin 81 mg PO DAILY #30 chewable 07/11/20 11/03/20 Rx Atorvastatin [Lipitor] 40 mg PO HS #30 tab 07/11/20 11/03/20 Rx Clopidogrel [Plavix] 75 mg PO DAILY #30 tab 07/11/20 11/03/20 Rx Furosemide [Lasix] 40 mg PO DAILY #0 07/11/20 11/03/20 Rx amLODIPine [Norvasc] 10 mg PO HS #30 tab 07/14/20 11/03/20 Rx Insulin Glargine [Lantus] 36 unit SQ DAILY 10/24/20 11/03/20 History Atenolol [Tenormin] 25 mg PO DAILY 11/03/20 11/03/20 History Canagliflozin [Invokana] 300 mg PO DAILY 11/03/20 11/03/20 History Dulaglutide [Trulicity] 1.5 mg SQ SA 11/03/20 11/03/20 History Ergocalciferol (Vitamin D2) 50 mcg PO DAILY 11/03/20 11/03/20 History [Vitamin D2 (2000 Iu)] INSULIN ASPART (NovoLOG) [NovoLOG 5 unit SQ AC-BRKFST 11/03/20 11/03/20 History (formulary)] INSULIN ASPART (NovoLOG) [NovoLOG 5 unit SQ AC-LUNCH 11/03/20 11/03/20 History (formulary)] INSULIN ASPART (NovoLOG) [NovoLOG 12 unit SQ AC-SUPPER 11/03/20 11/03/20 History (formulary)] INSULIN ASPART (NovoLOG) [NovoLOG See Protocol SQ AC-TID PRN 11/03/20 11/03/20 History (formulary)] Allergies Allergy/AdvReac Type Severity Reaction Status Date / Time No Known Allergies Allergy Verified 11/03/20 11:27 Physical Examination - Vital Signs Vital Signs: Vital Signs Temp Pulse Resp BP Pulse Ox 11/03/20 13:30 60 9 L 114/94 99 11/03/20 13:00 61 14 136/73 100 11/03/20 12:30 60 11 L 123/78 100 11/03/20 10:46 98.7 F 68 18 140/69 97 Intake and Output 11/03/20 11/03/20 11/03/20 06:59 14:59 22:59 Other: Weight 106.594 kg GENERAL: The patient is lying in bed and is not in acute distress. CHEST: The heart rate is regular rate rhythm. No murmurs to auscultation. LUNG: Clear to auscultation bilaterally no wheezing noted throughout. Not labored breathing. ABDOMEN/GI: Bowel sounds present in all 4 quadrants. No tenderness to palpation throughout. NEUROLOGICAL: Higher mental function: The patient is awake, alert, oriented to self and knows he is in hospital but can not tell me name of it. Said he does not know year or month. Patient is following simple commands but seems slow. Has broca aphasia. No neglect. Cranial nerves: The pupils are round, equal and reactive to light. Visual calzada: Right homonymous hemianopsia to confrontation. Extraocular movement is intact no nystagmus is noted. Facial sensation is normal to touch throughout. The facial strength is normal throughout. Hearing is midly decreased to hand rub bilaterally. Tongue is midline and moved [id number] without any diff iculty. No dysarthria is noted. Shoulder shrug is normal bilaterally. Motor: Gait is deferred. The strength is 5 over 5 throughout. Normal tone and bulk. Cerebellum: Normal finger to nose. Sensation: Sensation is normal to touch throughout. Reflexes (right/left): 2+ bilateral upper extremities and 1+ lower extremities. Plantars are mute bilaterally. Results Coagulation study: PT of 9.8, INR 0.9, and PTT of 23.1. Huerta virus PCR was not detected. - Laboratory Findings CBC and BMP: 11/03/20 11:17 11/03/20 11:17 Abnormal Lab Findings: Abnormal Labs 11/03/20 11/03/20 10:50 11:17 BUN 37 H Creatinine 1.99 H Glucose 168 H POC Glucose (mg/dL) 222 H Assessment and Plan Assessment: This is 75-years old gentleman with multiple strokes involving bihemispheric region , left ICA stenosis (70%) presented emergency department on 11/03/2019 for an episode of unresponsiveness lasting 5 minutes. Per patient's daughter he complained of headache, complained of vision loss, then became unresponsivness then afterward felt fatigue. Denies any tongue bite, jerking of any extremities, foaming around the mouth or urinary or bowel incontinence. He had similar episode a week ago and an episode in August where eyes rolled back. * His episode of unresponsiveness is newly diagnosed seizure especially with 2 similar episodes in the past. (His history of stroke are focus for seizure) * Multiple strokes involving bihemispheric region (Prior MRI Brain on 07/10/2020 showed acute ischemic changes over left parietal occipital whatershed region and focal acute over thrigh frontal)---Seem emoblic and I feel patient largely has artery to artery (left ICA stenosis to left occipital/parietal) and component of cardioembolic * Symptomatic Left ICA stenosis (70%) * Right homonymous hemianopsia due to his stroke over the left occipital region * Broca aphasia due to his history of stroke (old) * Cognitive impairement * Diabetes is poorly controlled * Hypertension * Hyperlipidemia Plan: From the daughters descriptions the patient's unresponsiveness and an episode in the past of him having his eyes rolled back seemed like a seizure. Therefore I loaded the patient with Keppra 1500 mg once and started the patient on Keppra 750 mg 1 tablet twice a day (reason for higher dose is his body weight). I will ordered an EEG for tomorrow. I ordered the MRI of the brain to make sure that there is no acute or subacute strokes. The patient has a loop recorder and I'm not sure if it's MRI compatible but will find out what the member of technical staff. Patient is on aspirin 325mg daily that was started by the ED team. I started the patient the Plavix 75 mg daily. Patient is to be on dual antiplatelet therapy for now. If the patient does have any acute or subacute strokes, I would like to discontinue the Plavix and start the patient on Brilinta and continue the aspirin rather than 325 milligrams will go down to 81mg. I started the patient on Lipitor 80 mg daily. I ordered carotid duplex. I ordered 2-D echo I consulted vascular surgery team regarding the patient's carotid stenosis. I placed patient on neuro-check q 4 hours. Lipid panel is ordered by the ED team is pending. Physical therapy, occupational therapy and speech therapy are consulted. Cardiology team is consulted. Will defer the rest of medical management to the primary team. The plan was discussed with the patient Attending and patient's nurse. Thank you for the consultation. Jf Hall MD Neuro-Hospitalist Time with Patient: Greater than 30
--- NOTE | 2020-11-03 18:16 | US ---
EXAMINATION TYPE: US carotid duplex BILAT DATE OF EXAM: 11/03/2020 COMPARISON: NONE CLINICAL HISTORY: stroke. AMS, stroke EXAM MEASUREMENTS: RIGHT: Peak Systolic Velocity (PSV) cm/sec ----- Right CCA: 88.3 ----- Right ICA: 98.1 ----- Right ECA: 171 ICA/CCA ratio: 1.1 RIGHT: End Diastole cm/sec ----- Right CCA: 12.3 ----- Right ICA: 12.3 ----- Right ECA: 16.6 LEFT: Peak Systolic Velocity (PSV) cm/sec ----- Left CCA: 70.3 ----- Left ICA: 68.9 ----- Left ECA: 157 ICA/CCA ratio: 0.98 LEFT: End Diastole cm/sec ----- Left CCA: 0.0 ----- Left ICA: 9.3 ----- Left ECA: 0.0 VERTEBRALS (direction of flow): Right Vertebral: unable to visualize Left Vertebral: Antegrade Rhythm: Normal *Technical limitations, short and thick neck. Mild plaque bilateral bifurcations. Mildly increased ve locities bilateral ECAs IMPRESSION: The images and measurements suggest less than 20% stenosis in both internal carotid arteries. There i s slight elevated velocity in the external carotid arteries that is consistent with 50-70% stenosis. There is antegrade flow in the left vertebral artery. No flow is identified in the right vertebral ar kalyn. Criteria for Assigning % of Stenosis / Diameter reduction (Estimation based on the indirect measurements of the internal carotid artery velocities (ICA PSV). 1. Normal (no stenosis)=ICA PSV < 125 cm/s: ratio < 2.0: ICA EDV<40 cm/s. 2. Less than 50% stenosis=ICA PSV < 125 cm/s: ratio < 2.0: ICA EDV<40 cm/s. 3. 50 to 69% stenosis=ICA PSV of 125 to 230 cm/s: ration 2.0 ? 4.0: ICA EDV 40-100 cm/s. 4. Greater than 70% stenosis to near occlusion= ICA PSV > 230 cm/s: ratio > 4.0: ICA EDV > 100 cm/s. 5. Near occlusion= ICA PSV velocities may be low or undetectable: variable ratio and ICA EDV. 6. Total occlusion=unable to detect flow.
[2020-11-03] MEDS ORDERED: ALBUTEROL NEBULIZED 2.5 MG/3 ML INHALATION PRN (19:30)
[2020-11-03] MEDS ORDERED: NON FORMULARY DRUG (Dulaglutide [Trulicity] 1.5 MG/0.5 ML Pen.Injctr) SQ SCH (19:30)
--- NOTE | 2020-11-03 19:43 | P.HPIM ---
History of Present Illness H&P Date: 11/03/20 Chief Complaint: Unresponsive episode History of presenting complaint: This is a 75-year-old patient of Dr. Santana. Chronic stable medical conditions include hyperlipidemia, diabetes, obstructive sleep apnea, osteoarthritis, kidney stones, cognitive impairment-dementia. 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 KARISHMA-did not show any embolic source. Preserved LV function. Normal valves. MRI of the brain did show acute ischemic change within the left parietal occipital watershed area. Additional focal area of acute ischemic change in the right frontal lobe. MRA of the brain was unremarkable. 2-D echocardiogram showed EF of 55%. Normal LV function. Carotid Doppler was unremarkable. residual right-sided weakness.- as sistance with walking. Patient has a loop recorder placed because multiple episodes of decreased responsiveness since July. This time patient's presents with an episode as described by his daughter to the neurologist Dr. Hall: "She stated, today where he complains of a headache, he lost his vision at 10am (could not see out of left eye) then non-responsiveness. His episode of not respoding lasted 5 minutes. No jerking of any extremities. No foaming around the mouth. No urinary or bowel incontinence. He has a similiar episode this past lasting 5 minutes but refused to seek medical attention. He usually have these episode in the morning. After these episodes the feels generalized fatigue and going to sleep for 1 hour. Prior to the episode he complains of headache. ". Patient himself is not a good historian. Patient is similar episode a week ago. Review of systems: GEN.: Tired EYES: None HEENT: None NECK: None RESPIRATORY: None CARDIOVASCULAR: None GASTROINTESTINAL: None GENITOURINARY: None MUSCULOSKELETAL: None LYMPHATICS: None HEMATOLOGICAL: None PSYCHIATRY: forgetful NEUROLOGICAL: weakness on the right side Past medical history to include: Diabetes, hyperlipidemia, hypertension, obstructive sleep apnea, osteoarthritis, kidney stones, cognitive impairment, stroke hypertension with right-sided weakness, depression Social history: No history of smoking or alcohol. Lives with his . Physical examination: VITAL SIGNS: 98.7, 68, 18, 140/69, 97% on room air GENERAL: BMI 35.7 reclining in bed, awake. EYES: Pupils equal. Conjunctiva normal. HEENT: External appearance of nose and ears normal, oral cavity grossly normal. NECK: JVD not raised; masses not palpable. HEART: First and second heart sounds are normal; no edema. LUNGS: Respiratory rate normal; clear to auscultation. ABDOMEN: Soft, nontender, liver spleen not palpable, no masses palpable. PSYCH: Awak answering simple questions NEUROLOGICAL: [Cranial nerves grossly intact; no facial asymmetry, power 4/5 on the right side LYMPHATICS: No lymph nodes palpable in the axilla and neck INVESTIGATIONS, reviewed in the clinical context: Carotid Doppler: Less than 20% stenosis in both ICAsEKG tracing personally reviewed by me-normal sinus rhythm White count 8.8 hemoglobin 13.7 platelets 314 potassium 4.4 bun 37 creatinine 1.99 Computed tomography scan of the brain-subacute left parietal occipital hemoglobin infarct Chest x-ray film personally reviewed by me-no obvious pulmonary edema Coronavirus [PCR]-not detected Previous testing: Creatinine 1.94 from June 2020 MRA of the brain-June 2020-narrowing of the left carotid siphon approaching 70%. Assessment: -Episode of decreased responsiveness, eyes rolling back. Been feeling sleepy afterwards for an hour. Discussed with Dr. Lema from neurology. It is believed more to be a seizure episode as a posterior stroke. He did also review the CAT scan and doesn't think it's an acute stroke. Patient be started on AED essential hypertension - stroke in the left parieto-occipital area on 07/07/2020, -Obesity BMI35.7 -Right paresis from previous stroke-. 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 Uncontrolled with hypoglycemia. Cutback on schedule and evening dose of insulin. Follow Accu- Cheks closely. -Depression otherwise specified-On Cymbalta -Hyperlipidemia-On Lipitor -Chronic kidney disease stage III from hypertensive nephrosclerosis and diabetic nephropathy-Follow renal function Plan: Care was discussed with Dr. Hall from neurology. Patient to continue on Plavix and aspirin. MRI of the brain is being ordered. Patient does have a loop recorder. Home medications to continue. Seizure precautions. Further workup will require 2 nights of stay. EEG being ordered. Also vascular consultation. Consult vascular. Past Medical History Past Medical History: CVA/TIA, Diabetes Mellitus, Hyperlipidemia, Hypertension, Liver Disease, Renal Disease, Sleep Apnea/CPAP/BIPAP Additional Past Medical History / Comment(s): ARTHRITIS, kidney stones, possible dementia, kidney failure, neuropathy alia legs, carpal tunnel. CVA-oct 20 b alance issues,speech impairment,vision impairment, receives injections to eyes r/t bleeding History of Any Multi-Drug Resistant Organisms: None Reported Past Surgical History: Back Surgery Additional Past Surgical History / Comment(s): MASS REMOVED FROM BACK OF HEAD, eye surgery, Past Anesthesia/Blood Transfusion Reactions: No Reported Reaction Past Psychological History: Depression Smoking Status: Never smoker Past Alcohol Use History: None Reported Past Drug Use History: None Reported - Past Family History Father Family Medical History: Diabetes Mellitus Mother Family Medical History: Diabetes Mellitus Brother(s) Family Medical History: Cancer Sister(s) Family Medical History: Cancer Medications and Allergies Home Medications Medication Instructions Recorded Confirmed Type DULoxetine HCL [Cymbalta] 30 mg PO HS 03/13/16 11/03/20 History Isosorbide Mononitrate ER [Imdur] 60 mg PO DAILY 03/13/16 11/03/20 History cloNIDine HCL [Catapres] 0.2 mg PO TID 03/13/16 11/03/20 History Albuterol Nebulized [Ventolin 2.5 mg INHALATION RT-QID PRN 07/08/20 11/03/20 History Nebulized] Losartan [Cozaar] 100 mg PO HS 07/08/20 11/03/20 History Omeprazole 20 mg PO DAILY 07/08/20 11/03/20 History Aspirin 81 mg PO DAILY #30 chewable 07/11/20 11/03/20 Rx Atorvastatin [Lipitor] 40 mg PO HS #30 tab 07/11/20 11/03/20 Rx Clopidogrel [Plavix] 75 mg PO DAILY #30 tab 07/11/20 11/03/20 Rx Furosemide [Lasix] 40 mg PO DAILY #0 07/11/20 11/03/20 Rx amLODIPine [Norvasc] 10 mg PO HS #30 tab 07/14/20 11/03/20 Rx Insulin Glargine [Lantus] 36 unit SQ DAILY 10/24/20 11/03/20 History Atenolol [Tenormin] 25 mg PO DAILY 11/03/20 11/03/20 History Canagliflozin [Invokana] 300 mg PO DAILY 11/03/20 11/03/20 History Dulaglutide [Trulicity] 1.5 mg SQ SA 11/03/20 11/03/20 History Ergocalciferol (Vitamin D2) 50 mcg PO DAILY 11/03/20 11/03/20 History [Vitamin D2 (2000 Iu)] INSULIN ASPART (NovoLOG) [NovoLOG 5 unit SQ AC-BRKFST 11/03/20 11/03/20 History (formulary)] INSULIN ASPART (NovoLOG) [NovoLOG 5 unit SQ AC-LUNCH 11/03/20 11/03/20 History (formulary)] INSULIN ASPART (NovoLOG) [NovoLOG 12 unit SQ AC-SUPPER 11/03/20 11/03/20 History (formulary)] INSULIN ASPART (NovoLOG) [NovoLOG See Protocol SQ AC-TID PRN 11/03/20 11/03/20 History (formulary)] Allergies Allergy/AdvReac Type Severity Reaction Status Date / Time No Known Allergies Allergy Verified 11/03/20 11:27 Physical Exam Vitals: Vital Signs Temp Pulse Pulse Resp BP BP Pulse Ox 11/03/20 16:00 62 16 150/80 97 11/03/20 14:00 68 16 11/03/20 13:46 97.4 F L 68 16 160/78 11/03/20 13:30 60 9 L 114/94 99 11/03/20 13:00 61 14 136/73 100 11/03/20 12:30 60 11 L 123/78 100 11/03/20 10:46 98.7 F 68 18 140/69 97 Intake and Output 11/03/20 11/03/20 11/03/20 06:59 14:59 22:59 Intake Total 125 Balance 125 Intake: Oral 125 Other: Voiding Method Toilet Diaper Incontinent Weight 106.594 kg Results CBC & Chem 7: 11/03/20 11:17 11/03/20 11:17 Labs: Abnormal Lab Results - Last 24 Hours (Table) 11/03/20 11/03/20 11/03/20 Range/Units 10:50 11:17 17:09 BUN 37 H (9-20) mg/dL Creatinine 1.99 H (0.66-1.25) mg/dL Glucose 168 H (74-99) mg/dL POC Glucose (mg/dL) 222 H 101 H (75-99) mg/dL Thrombosis Risk Factor Assmnt - Choose All That Apply Any of the Below Risk Factors Present?: No Other Risk Factors: Yes Each Risk Factor Represents 2 Points: Age 61-74 years Other congenital or acquired thrombophilia - If yes, enter type in comment: No Thrombosis Risk Factor Assessment Total Risk Factor Score: 2 Thrombosis Risk Factor Assessment Level: Low Risk
[2020-11-03] MEDS: ATORVASTATIN 80 MG TAB PO SCH (20:13)
[2020-11-03] MEDS: LOSARTAN 50 MG TAB PO SCH (20:13)
[2020-11-03] MEDS: levETIRAcetam 250 MG TAB PO SCH (20:13)
[2020-11-03] MEDS: ENOXAPARIN 40 MG/0.4 ML SYRINGE SQ SCH (20:14)
[2020-11-03] MEDS: DULoxetine HCL 30 MG CAPSULE.DR PO SCH (20:14)
[2020-11-03] MEDS: cloNIDine HCL 0.2 MG TAB PO SCH (20:14)
[2020-11-03] MEDS: amLODIPine 10 MG TAB PO SCH (20:14)
[2020-11-03 20:20] LABS: Glucose,Whole Blood 129 mg/dL (75-99)
[2020-11-04 04:39] LABS: Cholesterol 131 mg/dL (<200); HDL Cholesterol 50 mg/dL (40-60); LDL Cholesterol,Calculated 48 mg/dL (0-99); Triglycerides 167 mg/dL (<150)
[2020-11-04] MEDS: FUROSEMIDE 40 MG TAB PO SCH (06:40)
[2020-11-04] MEDS: PANTOPRAZOLE 40 MG TABLET PO SCH (06:40)
[2020-11-04 07:33] LABS: Glucose,Whole Blood 72 mg/dL (75-99)
[2020-11-04] MEDS: INSULIN ASPART (NovoLOG) 100 UNIT/ML VIAL SQ SCH ×2 (08:48→14:09)
[2020-11-04] MEDS: NON FORMULARY DRUG (Canagliflozin [Invokana] 300 MG Tablet) PO SCH (08:49)
[2020-11-04] MEDS: ASPIRIN 81 MG PO SCH (08:53)
[2020-11-04] MEDS: CLOPIDOGREL 75 MG TAB PO SCH (08:53)
[2020-11-04] MEDS: ISOSORBIDE MONONITRATE ER 60 MG TAB.ER.24H PO SCH (08:53)
[2020-11-04] MEDS: cloNIDine HCL 0.2 MG TAB PO SCH ×3 (08:53→21:02)
[2020-11-04] MEDS: levETIRAcetam 250 MG TAB PO SCH ×2 (08:53→21:02)
[2020-11-04] MEDS ORDERED: NON FORMULARY DRUG (Ergocalciferol (Vitamin D2) [Vitamin D2 (2000 Iu)] 50 MCG Tablet) PO SCH (09:00)
[2020-11-04] MEDS ORDERED: atenoloL 50 MG TAB PO SCH (09:00)
[2020-11-04] MEDS ORDERED: INSULIN DETEMIR (LEVEMIR) 100 UNIT/ML SYR SQ SCH (09:00)
--- NOTE | 2020-11-04 10:54 | P.PN ---
Subjective Progress Note Date: 11/04/20 The patient was seen at beside and feels he is back to baseline. He denies of any new neurological issues. He stated has mild headache over bilateral frontal but denies any radiation, photophobia, phonophobia, nausea or vomitting. He denies of any focal weakness. Objective - Vital Signs Vital signs: Vital Signs Temp 97.9 F 11/04/20 03:49 Pulse 62 11/04/20 03:49 Resp 18 11/04/20 03:49 BP 114/67 11/04/20 03:49 Pulse Ox 96 11/04/20 03:49 Intake & Output 11/03/20 11/04/20 11/04/20 18:59 06:59 18:59 Intake Total 125 240 Output Total 600 Balance 125 -600 240 Weight 106.594 kg 94.4 kg Intake: Oral 125 240 Output: Urine 600 Other: Voiding Method Toilet Bedside Commode Diaper Diaper Incontinent # Voids 1 1 # Bowel Movements 1 - Exam GENERAL: The patient is lying in bed and is not in acute distress. NEUROLOGICAL: Higher mental function: The patient is awake, alert, oriented to self and knows he is in hospital but can not tell me name of it. Said he does not know year or month. Patient is following simple commands but seems slow. Has broca aphasia. No neglect. Cranial nerves: The pupils are round, equal and reactive to light. Visual calzada: Right homonymous hemianopsia to confrontation. Extraocular movement is intact no nystagmus is noted. Facial sensation is normal to touch throughout. The facial strength is normal throughout. Hearing is midly decreased to hand rub bilaterally. Tongue is midline and moved [id number] without any difficulty. No dysarthria is noted. Shoulder shrug is normal bilaterally. Motor: Gait is deferred. The strength is 5 over 5 throughout. Normal tone and bulk. Cerebellum: Normal finger to nose. Sensation: Sensation is normal to touch throughout. Reflexes (right/left): 2+ bilateral upper extremities and 1+ lower extremities. Plantars are mute bilaterally. - Labs CBC & Chem 7: 11/03/20 11:17 11/03/20 11:17 Labs: Abnormal Lab Results - Last 24 Hours (Table) 11/03/20 11/03/20 11/03/20 Range/Units 10:50 11:17 11:17 BUN 37 H (9-20) mg/dL Creatinine 1.99 H (0.66-1.25) mg/dL Glucose 168 H (74-99) mg/dL POC Glucose (mg/dL) 222 H (75-99) mg/dL Triglycerides 167 H (<150) mg/dL 11/03/20 11/03/20 11/04/20 Range/Units 17:09 20:18 07:30 BUN (9-20) mg/dL Creatinine (0.66-1.25) mg/dL Glucose (74-99) mg/dL POC Glucose (mg/dL) 101 H 129 H 72 L (75-99) mg/dL Triglycerides (<150) mg/dL Assessment and Plan Assessment: This is 75-years old gentleman with multiple strokes involving bihemispheric region , left ICA stenosis (70%) presented emergency department on 11/03/2019 for an episode of unresponsiveness lasting 5 minutes. Per patient's daughter he complained of headache, complained of vision loss, then became unresponsivness then afterward felt fatigue. Denies any tongue bite, jerking of any extremities, foaming around the mouth or urinary or bowel incontinence. He had similar episode a week ago and an episode in August where eyes rolled back. * His episodes of unresponsiveness are due to seizure especially with 2 similar episodes in the past. (His history of stroke are focus for seizure) * Multiple strokes involving bihemispheric region (Prior MRI Brain on 07/10/2020 showed acute ischemic changes over left parietal occipital region and focal acute over thrigh frontal)---Seem emoblic (cardioembolic). * ?Left ICA stenosis at Siphon 70% (Documented by Dr. 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 Ordered routine EEG. STAT EEG in not needed. Since will not pattern changer, since clinically the patient had seizure and currently is back to baseline and I started him on anti-epileptic drug. I ordered the MRI of the brain to make sure that there is no acute or subacute strokes. The patient has a loop recorder and I'm not sure if it's MRI compatible but will find out what the bi technical lead. Continue ASA 81mg and Plavix 75 mg daily. Patient is to be on dual antiplatelet therapy for now. If the patient does have any acute or subacute strokes, I would like to discontinue the Plavix and start the patient on Brilinta and continue the aspirin. Continue Lipitor 80 mg daily. IF the patient the was found not to have significant carotid stenosis then I recommend decreasing Lipitor from 80 mg to 40 mg. Carotid duplex: It is reported the image and the measurements suggest less than 20% stenosis of both internal carotid arteries. There is slight elevated velocity in the external carotid artery that is consistent with 50-70% stenosis. There is antegrade flow in the left vertebral artery. No flow is identified in the right vertebral artery. I reviewed the patient's previous images in our facility and I did not see any result supporting the patient having left ICA stenosis 70% at [facility]. Not sure if he had outpatient work-up and was told that or he had work-up in our facility and I am not able to find it. I recommend CTA of the head and neck if the primary team feels its safe especially with the kidney insufficiency. I consulted vascular surgery team regarding the patient's reported carotid stenosis. 2-D echo: pending The patient had KARISHMA on 07/11/20: It is reported as No cardiac source of emboli. Moderate plaque in the aorta. Preserved LV function. Normal valvular function. Continue neuro-check q 4 hours. Lipid panel: Triglyceride is 167, cholesterol is 131, LDL is 48 and HDL is 50. LDL goal for stroke is <70 (which he is at goal). Physical therapy, occupational therapy and speech therapy are consulted. Cardiology team is consulted. Patient was notified to avoid driving for 6 month until seizure-free/no loss of conscioussness per [place]VD. And to avoid the [place], avoid heavy machinery and to the avoid swimming unassisted. Will defer the rest of medical management to the primary team. The plan was discussed with the patient's nurse and cardiology team. Dr. Bustillo will start coverage tomorrow for neurology service. Jf Hall MD Neuro-Hospitalist Time with Patient: Less than 30
[2020-11-04 12:02] LABS: Glucose,Whole Blood 145 mg/dL (75-99)
[2020-11-04] MEDS ORDERED: ASPIRIN 325 MG TAB PO SCH (13:14)
--- NOTE | 2020-11-04 14:22 | P.CRDCN ---
History of Present Illness Consult date: 11/04/20 History of present illness: The patient is a 75-year-old male with past medical history of dementia, prior CVA, hypertension, and dyslipidemia, who presented to the hospital with new onset of mental status changes and headache. The patient's daughter told emergency room staff states that he complained of a headache and lost his vision at 10 AM then became unresponsive. He also had a similar episode last , however the patient did not want to proceed to the emergency room. Unfortunately the patient is a poor historian due to his underlying dementia. The patient was interviewed and examined lying comfortably in bed. He does have some confusion regarding the series of events. He states he's feeling well and has no complaints at this time. He denies any chest pain or chest pressure. No shortness of breath, dizziness, lightheadedness, or palpitations. DIAGNOSTICS: EKG showed sinus arrhythmia with heart rate 65 bpm Laboratory data shows WBC 8.8, hemoglobin 13.7, hematocrit 40.9, platelet 314, sodium 138, potassium 4.4, BUN 37, creatinine 1.9 Vital signs show blood pressure 114/67, SpO2 96% on room air, respiratory rate 18, pulse rate 62, temperature 97.9F Previous KARISHMA last June showed normal LV function and no significant valvular abnormalities. No evidence of PFO Carotid Doppler shows mild disease bilaterally, with elevated pressures in the CCA indicating a 50-70% stenosis CT of the brain shows subacute left parietal occipital evolving infarct without evidence of acute bleed PAST MEDICAL HISTORY: Prior stroke, dementia and hypertension, dyslipidemia REVIEW OF SYSTEMS: No fever or chills. No cough or expectoration. No diaph oresis. Patient denies headache, dizziness, blurred vision, double vision. Patient denies any stomach discomfort. No nausea, vomiting. No hematochezia. No hematemesis. Denies any black stools or blood in his stools. Denies dysuria or hematuria. No muscle weakness or numbness. PHYSICAL EXAMINATION: This is a 75-year-old obese male in no apparent distress at the time of my examination. HEENT: Head is atraumatic, normocephalic. Pupils are equal, round. Sclerae anicteric. Conjunctivae are clear. Mucous membranes of the mouth are moist. Neck is supple. There is no jugular venous distention. No carotid bruit is heard. CHEST EXAMINATION: Lungs are clear to auscultation. No chest wall tenderness is noted on palpation or with deep breathing. HEART EXAMINATION: Heart regular rate and rhythm. S1, S2 heard. No murmurs, gallops or rub. ABDOMEN: Soft, nontender. Bowel sounds are heard. No organomegaly noted. EXTREMITIES: 2+ peripheral pulses with no evidence of peripheral edema and no calf tenderness noted. NEUROLOGIC EXAMINATION: Patient is awake, alert and oriented x3. FINAL ASSESSMENT AND PLAN: #1 mental status changes, neurology following #2 multiple CVA, on dual antiplatelet therapy #3 carotid atherosclerosis #4 dementia #5 hypertension #6 hyperlipidemia #7 chronic kidney disease, GFR 32 PLAN: Loop monitor interrogation to be completed Echocardiogram pending Continue dual antiplatelet therapy as recommended by neurology Further recommendations based on clinical course The patient has been seen and evaluated. Plan of care has been reviewed and agreed upon by Dr Pereyra. Past Medical History Past Medical History: CVA/TIA, Diabetes Mellitus, Hyperlipidemia, Hypertension, Liver Disease, Renal Disease, Sleep Apnea/CPAP/BIPAP Additional Past Medical History / Comment(s): ARTHRITIS, kidney stones, possible dementia, kidney failure, neuropathy alia legs, carpal tunnel. CVA-jun 20 balance issues,speech impairment,vision impairment, receives injections to eyes r/t bleeding History of Any Multi-Drug Resistant Organisms: None Reported Past Surgical History: Back Surgery Additional Past Surgical History / Comment(s): MASS REMOVED FROM BACK OF HEAD, eye surgery, Past Anesthesia/Blood Transfusion Reactions: No Reported Reaction Past Psychological History: Depression Smoking Status: Never smoker Past Alcohol Use History: None Reported Past Drug Use History: None Reported - Past Family History Father Family Medical History: Diabetes Mellitus Mother Family Medical History: Diabetes Mellitus Brother(s) Family Medical History: Cancer Sister(s) Family Medical History: Cancer Medications and Allergies Home Medications Medication Instructions Recorded Confirmed Type DULoxetine HCL [Cymbalta] 30 mg PO HS 03/13/16 11/03/20 History Isosorbide Mononitrate ER [Imdur] 60 mg PO DAILY 03/13/16 11/03/20 History cloNIDine HCL [Catapres] 0.2 mg PO TID 03/13/16 11/03/20 History Albuterol Nebulized [Ventolin 2.5 mg INHALATION RT-QID PRN 07/08/20 11/03/20 History Nebulized] Losartan [Cozaar] 100 mg PO HS 07/08/20 11/03/20 History Omeprazole 20 mg PO DAILY 07/08/20 11/03/20 History Aspirin 81 mg PO DAILY #30 chewable 07/11/20 11/03/20 Rx Atorvastatin [Lipitor] 40 mg PO HS #30 tab 07/11/20 11/03/20 Rx Clopidogrel [Plavix] 75 mg PO DAILY #30 tab 07/11/20 11/03/20 Rx Furosemide [Lasix] 40 mg PO DAILY #0 07/11/20 11/03/20 Rx amLODIPine [Norvasc] 10 mg PO HS #30 tab 07/14/20 11/03/20 Rx Insulin Glargine [Lantus] 36 unit SQ DAILY 10/24/20 11/03/20 History Atenolol [Tenormin] 25 mg PO DAILY 11/03/20 11/03/20 History Canagliflozin [Invokana] 300 mg PO DAILY 11/03/20 11/03/20 History Dulaglutide [Trulicity] 1.5 mg SQ SA 11/03/20 11/03/20 History Ergocalciferol (Vitamin D2) 50 mcg PO DAILY 11/03/20 11/03/20 History [Vitamin D2 (2000 Iu)] INSULIN ASPART (NovoLOG) [NovoLOG 5 unit SQ AC-BRKFST 11/03/20 11/03/20 History (formulary)] INSULIN ASPART (NovoLOG) [NovoLOG 5 unit SQ AC-LUNCH 11/03/20 11/03/20 History (formulary)] INSULIN ASPART (NovoLOG) [NovoLOG 12 unit SQ AC-SUPPER 11/03/20 11/03/20 History (formulary)] INSULIN ASPART (NovoLOG) [NovoLOG See Protocol SQ AC-TID PRN 11/03/20 11/03/20 History (formulary)] Allergies Allergy/AdvReac Type Severity Reaction Status Date / Time No Known Allergies Allergy Verified 11/03/20 11:27 Physical Exam Vitals: Vital Signs Temp Pulse Resp BP Pulse Ox 11/04/20 08:00 97.6 F 66 16 156/73 98 11/04/20 03:49 97.9 F 62 18 114/67 96 02/07/21 01:45 65 20 11/03/20 23:47 65 20 138/65 97 11/03/20 20:00 98.2 F 66 18 148/69 97 11/03/20 16:00 62 16 150/80 97 Intake and Output 11/03/20 11/04/20 11/04/20 22:59 06:59 14:59 Intake Total 125 480 Output Total 250 350 1 Balance -125 -350 479 Intake: Oral 125 480 Output: Urine 250 350 1 Other: Voiding Method Toilet Bedside Commode Bedside Commode Diaper Diaper Diaper Incontinent # Voids 1 1 1 # Bowel Movements 1 Weight 94.4 kg Results 11/03/20 11:17 11/03/20 11:17 Lipids 11/03/20 Range/Units 11:17 Triglycerides 167 H (<150) mg/dL Cholesterol 131 (<200) mg/dL HDL Cholesterol 50 (40-60) mg/dL Current Medications Generic Name Dose Route Start Last Admin Trade Name Freq PRN Reason Stop Dose Admin Albuterol Sulfate 2.5 mg 11/03/20 19:30 Albuterol Nebulized 2.5 Mg/3 Ml INHALATION RT-QID PRN Shortness Of Breath Amlodipine Besylate 10 mg 11/03/20 21:00 11/03/20 20:14 Amlodipine 10 Mg Tab PO 10 mg HS BETSY Administration Aspirin 81 mg 11/04/20 09:00 11/04/20 08:53 Aspirin 81 Mg PO 81 mg DAILY BETSY Administration Atorvastatin Calcium 80 mg 11/03/20 21:00 11/03/20 20:13 Atorvastatin 80 Mg Tab PO 80 mg HS BETSY Administration Clonidine 0.2 mg 11/03/20 22:00 11/04/20 08:53 Clonidine Hcl 0.2 Mg Tab PO 0.2 mg TID BETSY Administration Clopidogrel Bisulfate 75 mg 11/03/20 16:30 11/04/20 08:53 Clopidogrel 75 Mg Tab PO 75 mg DAILY BETSY Administration Duloxetine HCl 30 mg 11/03/20 21:00 11/03/20 20:14 Duloxetine Hcl 30 Mg Capsule.Dr PO 30 mg HS BETSY Administration Enoxaparin Sodium 40 mg 11/03/20 20:00 11/03/20 20:14 Enoxaparin 40 Mg/0.4 Ml Syringe SQ 40 mg DAILY@2000 BETSY Administration Furosemide 40 mg 11/04/20 07:30 11/04/20 06:40 Furosemide 40 Mg Tab PO 40 mg AC-BRKFST BETSY Administration Insulin Aspart 5 unit 11/04/20 07:30 11/04/20 08:48 Insulin Aspart (Novolog) 100 Unit/Ml Vial SQ Not Given AC-BRKFST BETSY Insulin Aspart 5 unit 11/04/20 12:30 Insulin Aspart (Novolog) 100 Unit/Ml Vial SQ AC-LUNCH BETSY Insulin Aspart 6 unit 11/04/20 17:30 Insulin Aspart (Novolog) 100 Unit/Ml Vial SQ AC-SUPPER [facility] Insulin Detemir 28 unit 11/04/20 09:00 11/04/20 08:49 Insulin Detemir (Levemir) 100 Unit/Ml Syr SQ Not Given DAILY BETSY Isosorbide Mononitrate 60 mg 11/04/20 09:00 11/04/20 08:53 Isosorbide Mononitrate Er 60 Mg Tab.Er.24h PO 60 mg DAILY BETSY Administration Levetiracetam 750 mg 11/03/20 21:00 11/04/20 08:53 Levetiracetam 250 Mg Tab PO 750 mg Q12HR BETSY Administration Losartan Potassium 100 mg 11/03/20 21:00 11/03/20 20:13 Losartan 50 Mg Tab PO 100 mg HS BETSY Administration Non-Formulary Medication 300 mg 11/04/20 09:00 11/04/20 08:49 Canagliflozin [Invokana] PO Not Given DAILY BETSY Non-Formulary Medication 1.5 mg 11/03/20 19:30 11/03/20 20:07 Dulaglutide [Trulicity] SQ Not Given [facility] Pantoprazole Sodium 40 mg 11/04/20 07:30 11/04/20 06:40 Pantoprazole 40 Mg Tablet PO 40 mg AC-BRKFST BETSY Administration Intake and Output 11/03/20 11/04/20 11/04/20 22:59 06:59 14:59 Intake Total 125 480 Output Total 250 350 1 Balance -125 -350 479 Intake: Oral 125 480 Output: Urine 250 350 1 Other: Voiding Method Toilet Bedside Commode Bedside Commode Diaper Diaper Diaper Incontinent # Voids 1 1 1 # Bowel Movements 1 Weight 94.4 kg 11/03/20 11:17 11/03/20 11:17
--- NOTE | 2020-11-04 14:24 | P.GSCN ---
History of Present Illness Consult date: 11/04/20 Reason for Consult: ICA stenosis History of present illness: This is a 75-year-old patient with history of acute cerebrovascular accident in June and at that time he had MRA of the head which demonstrated 70% stenosis of the left carotid artery at the siphon within the skull. Patient presented to the hospital with stroke like symptoms when he lost vision and then became non responsive. He has had other episodes in the past as well. His carotid doppler demonstrated no disease. Review of Systems All systems: negative (what is mentioned in the HPI or PMH) Past Medical History Past Medical History: CVA/TIA, Diabetes Mellitus, Hyperlipidemia, Hypertension, Liver Disease, Renal Disease, Sleep Apnea/CPAP/BIPAP Additional Past Medical History / Comment(s): ARTHRITIS, kidney stones, possible dementia, kidney failure, neuropathy alia legs, carpal tunnel. CVA-jul 17 balance issues,speech impairment,vision impairment, receives injections to eyes r/t bleeding History of Any Multi-Drug Resistant Organisms: None Reported Past Surgical History: Back Surgery Additional Past Surgical History / Comment(s): MASS REMOVED FROM BACK OF HEAD, eye surgery, Past Anesthesia/Blood Transfusion Reactions: No Reported Reaction Past Psychological History: Depression Smoking Status: Never smoker Past Alcohol Use History: None Reported Past Drug Use History: None Reported - Past Family History Father Family Medical History: Diabetes Mellitus Mother Family Medical History: Diabetes Mellitus Brother(s) Family Medical History: Cancer Sister(s) Family Medical History: Cancer Medications and Allergies Home Medications Medication Instructions Recorded Confirmed Type DULoxetine HCL [Cymbalta] 30 mg PO HS 03/13/16 11/03/20 History Isosorbide Mononitrate ER [Imdur] 60 mg PO DAILY 03/13/16 11/03/20 History cloNIDine HCL [Catapres] 0.2 mg PO TID 03/13/16 11/03/20 History Albuterol Nebulized [Ventolin 2.5 mg INHALATION RT-QID PRN 07/08/20 11/03/20 History Nebulized] Losartan [Cozaar] 100 mg PO HS 07/08/20 11/03/20 History Omeprazole 20 mg PO DAILY 07/08/20 11/03/20 History Aspirin 81 mg PO DAILY #30 chewable 07/11/20 11/03/20 Rx Atorvastatin [Lipitor] 40 mg PO HS #30 tab 07/11/20 11/03/20 Rx Clopidogrel [Plavix] 75 mg PO DAILY #30 tab 07/11/20 11/03/20 Rx Furosemide [Lasix] 40 mg PO DAILY #0 07/11/20 11/03/20 Rx amLODIPine [Norvasc] 10 mg PO HS #30 tab 07/14/20 11/03/20 Rx Insulin Glargine [Lantus] 36 unit SQ DAILY 10/24/20 11/03/20 History Atenolol [Tenormin] 25 mg PO DAILY 11/03/20 11/03/20 History Canagliflozin [Invokana] 300 mg PO DAILY 11/03/20 11/03/20 History Dulaglutide [Trulicity] 1.5 mg SQ SA 11/03/20 11/03/20 History Ergocalciferol (Vitamin D2) 50 mcg PO DAILY 11/03/20 11/03/20 History [Vitamin D2 (2000 Iu)] INSULIN ASPART (NovoLOG) [NovoLOG 5 unit SQ AC-BRKFST 11/03/20 11/03/20 History (formulary)] INSULIN ASPART (NovoLOG) [NovoLOG 5 unit SQ AC-LUNCH 11/03/20 11/03/20 History (formulary)] INSULIN ASPART (NovoLOG) [NovoLOG 12 unit SQ AC-SUPPER 11/03/20 11/03/20 History (formulary)] INSULIN ASPART (NovoLOG) [NovoLOG See Protocol SQ AC-TID PRN 11/03/20 11/03/20 History (formulary)] Allergies Allergy/AdvReac Type Severity Reaction Status Date / Time No Known Allergies Allergy Verified 11/03/20 11:27 Surgical - Exam Vital Signs Temp Pulse Resp BP Pulse Ox 98.7 F 68 18 140/69 97 11/03/20 10:46 11/03/20 10:46 11/03/20 10:46 11/03/20 10:46 11/03/20 10:46 Results Carotid doppler demonstrates no evidence of stenosis. - Labs 11/03/20 11:17 11/03/20 11:17 Abnormal Lab Results - Last 24 Hours (Table) 11/03/20 11/03/20 11/03/20 Range/Units 11:17 17:09 20:18 POC Glucose (mg/dL) 101 H 129 H (75-99) mg/dL Triglycerides 167 H (<150) mg/dL 11/04/20 11/04/20 Range/Units 07:30 12:01 POC Glucose (mg/dL) 72 L 145 H (75-99) mg/dL Triglycerides (<150) mg/dL Diabetes panel 11/03/20 Range/Units 11:17 Triglycerides 167 H (<150) mg/dL HDL Cholesterol 50 (40-60) mg/dL Assessment and Plan Assessment: 1. Possible seizures 2. History of left sided stroke 3. No evidence of carotid stenosis 4. DM2 5. Hyperlipidemia 6. CKD Plan: No vascular surgical intervention. The carotid artery is stenotic at the siphon within the skull and would need a neuro-interventionalist evaluation. Continue medical management. Thank you for the consultation.
[2020-11-04 16:57] LABS: Glucose,Whole Blood 154 mg/dL (75-99)
[2020-11-04] MEDS ORDERED: INSULIN ASPART (NovoLOG) 100 UNIT/ML VIAL SQ SCH (17:30)
--- NOTE | 2020-11-04 19:54 | P.PN ---
Progress Note - Text Progress Note Date: 11/04/20 Chief Complaint: Unresponsive episode History of presenting complaint: This is a 75-year-old patient of Dr. Santana. Chronic stable medical conditions include hyperlipidemia, diabetes, obstructive sleep apnea, osteoarthritis, kidney stones, cognitive impairment-dementia. 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 KARISHMA-did not show any embolic source. Preserved LV function. Normal valves. MRI of the brain did show acute ischemic change within the left parietal occipital watershed area. Additional focal area of acute ischemic change in the right frontal lobe. MRA of the brain was unremarkable. 2-D echocardiogram showed EF of 55%. Normal LV function. Carotid Doppler was unremarkable. residual right-sided weakness.- assistance with walking. Patient has a loop recorder placed because multiple episodes of decreased responsiveness since July. This time patient's presents with an episode as described by his daughter to the neurologist Dr. Hall: "She stated, today where he complains of a headache, he lost his vision at 10am (could not see out of left eye) then non-responsiveness. His episode of not respoding lasted 5 minutes. No jerking of any extremities. No foaming around the mouth. No urinary or bowel incontinence. He has a similiar episode this past lasting 5 minutes but refused to seek medical attention. He usually have these episode in the morning. After these episodes the feels generalized fatigue and going to sleep for 1 hour. Prior to the episode he complains of headache. ". Patient himself is not a good historian. Patient is similar episode a week ago. Admitted with a diagnoses of seizure. Not felt to be acute stroke. Started on Keppra. Today-no further episodes. Tolerating diet. No new issues. Follow with neurology. Review of systems: Was done for constitutional, cardiovascular, GI, pulmonary. relevant finding as above Active Medications Albuterol Sulfate (Albuterol Nebulized 2.5 Mg/3 Ml) 2.5 mg INHALATION RT-QID PRN PRN Reason: Shortness Of Breath Amlodipine Besylate (Amlodipine 10 Mg Tab) 10 mg PO HS ON LICENSE OF [facility] Last Admin: 11/03/20 20:14 Dose: 10 mg Documented by: Aspirin (Aspirin 81 Mg) 81 mg PO DAILY ON LICENSE OF [facility] Last Admin: 11/04/20 08:53 Dose: 81 mg Documented by: Atorvastatin Calcium (Atorvastatin 80 Mg Tab) 80 mg PO [facility] Last Admin: 11/03/20 20:13 Dose: 80 mg Documented by: Clonidine (Clonidine Hcl 0.2 Mg Tab) 0.2 mg PO TID ON LICENSE OF [facility] Last Admin: 11/04/20 17:33 Dose: 0.2 mg Documented by: Clopidogrel Bisulfate (Clopidogrel 75 Mg Tab) 75 mg PO DAILY ON LICENSE OF [facility] Last Admin: 11/04/20 08:53 Dose: 75 mg Documented by: Duloxetine HCl (Duloxetine Hcl 30 Mg Capsule.Dr) 30 mg PO [facility] Last Admin: 11/03/20 20:14 Dose: 30 mg Documented by: Enoxaparin Sodium (Enoxaparin 40 Mg/0.4 Ml Syringe) 40 mg SQ DAILY@1999 ON LICENSE OF [facility] Last Admin: 11/03/20 20:14 Dose: 40 mg Documented by: Furosemide (Furosemide 40 Mg Tab) 40 mg PO AC-BRKFST ON LICENSE OF [facility] Last Admin: 11/04/20 06:40 Dose: 40 mg Documented by: Insulin Aspart (Insulin Aspart (Novolog) 100 Unit/Ml Vial) 5 unit SQ AC-BRKFST ON LICENSE OF [facility] Last Admin: 11/04/20 08:48 Dose: Not Given Documented by: Insulin Aspart (Insulin Aspart (Novolog) 100 Unit/Ml Vial) 5 unit SQ AC-LUNCH ON LICENSE OF [facility] Last Admin: 11/04/20 14:09 Dose: 5 unit Documented by: Insulin Aspart (Insulin Aspart (Novolog) 100 Unit/Ml Vial) 6 unit SQ AC-SUPPER ON LICENSE OF [facility] Last Admin: 11/04/20 17:33 Dose: 6 unit Documented by: Insulin Detemir (Insulin Detemir (Levemir) 100 Unit/Ml Syr) 28 unit SQ DAILY@0700 ON LICENSE OF [facility] Isosorbide Mononitrate (Isosorbide Mononitrate Er 60 Mg Tab.Er.24h) 60 mg PO DAILY ON LICENSE OF [facility] Last Admin: 11/04/20 08:53 Dose: 60 mg Documented by: Levetiracetam (Levetiracetam 250 Mg Tab) 750 mg PO Q12HR ON LICENSE OF [facility] Last Admin: 11/04/20 08:53 Dose: 750 mg Documented by: Losartan Potassium (Losartan 50 Mg Tab) 100 mg PO [facility] Last Admin: 11/03/20 20:13 Dose: 100 mg Documented by: Non-Formulary Medication (Canagliflozin [Invokana]) 300 mg PO DAILY ON LICENSE OF [facility] Last Admin: 11/04/20 08:49 Dose: Not Given Documented by: Non-Formulary Medication (Dulaglutide [Trulicity]) 1.5 mg SQ SA ON LICENSE OF [facility] Last Admin: 11/03/20 20:07 Dose: Not Given Documented by: Pantoprazole Sodium (Pantoprazole 40 Mg Tablet) 40 mg PO AC-BRKFST ON LICENSE OF [facility] Last Admin: 11/04/20 06:40 Dose: 40 mg Documented by: Past medical history to include: Diabetes, hyperlipidemia, hypertension, obstructive sleep apnea, osteoarthritis, kidney stones, cognitive impairment, stroke hypertension with right-sided weakness, depression Social history: No history of smoking or alcohol. Lives with his . Physical examination: VITAL SIGNS: 98.4, 62, 16, 155/73, 97% room air GENERAL: Laying in bed, comfortable EYES: Pupils equal. Conjunctiva normal. NECK: JVD not raised; masses not palpable. HEART: First and second heart sounds are normal; no edema. LUNGS: Respiratory rate normal; clear to auscultation. ABDOMEN: Soft, nontender, liver spleen not palpable, no masses palpable. PSYCH: Awak answering simple questions NEUROLOGICAL: [Cranial nerves grossly intact; no facial asymmetry, power 4/5 on the right side INVESTIGATIONS, reviewed in the clinical context: Carotid Doppler: Less than 20% stenosis in both ICAsEKG tracing personally reviewed by me-normal sinus rhythm White count 8.8 hemoglobin 13.7 platelets 314 potassium 4.4 bun 37 creatinine 1.99 Computed tomography scan of the brain-subacute left parietal occipital hemoglobin infarct Chest x-ray film personally reviewed by me-no obvious pulmonary edema Coronavirus [PCR]-not detected Previous testing: Creatinine 1.94 from June 2020 MRA of the brain-2019-narrowing of the left carotid siphon approaching 70%. Assessment: -Episode of decreased responsiveness, eyes rolling back. Been feeling sleepy afterwards for an hour. Discussed with Dr. Lema from neurology. It is believed more to be a seizure episode as a posterior stroke. He did also review the CAT scan and doesn't think it's an acute stroke. Patient be started on AED essential hypertension - stroke in the left parieto-occipital area on 07/07/2020, -Obesity BMI35.7 -Right paresis from previous stroke-. 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 Uncontrolled with hypoglycemia. Cutback on schedule and evening dose of insulin. Follow Accu- Cheks closely. -Depression otherwise specified-On Cymbalta -Hyperlipidemia-On Lipitor -Chronic kidney disease stage III from hypertensive nephrosclerosis and diabetic nephropathy-Follow renal function Plan: Discussed with Dr. Lema from neurology. He will discussed with Dr. Nash who is taking over the service tomorrow. Did discuss it further with Dr. Johns from vascular old films from june and determine if any further intervention is required. other medications to continue.
[2020-11-04 20:36] LABS: Glucose,Whole Blood 163 mg/dL (75-99)
[2020-11-04] MEDS: ENOXAPARIN 40 MG/0.4 ML SYRINGE SQ SCH (21:02)
[2020-11-04] MEDS: ATORVASTATIN 80 MG TAB PO SCH (21:02)
[2020-11-04] MEDS: amLODIPine 10 MG TAB PO SCH (21:02)
[2020-11-04] MEDS: DULoxetine HCL 30 MG CAPSULE.DR PO SCH (21:02)
[2020-11-04] MEDS: LOSARTAN 50 MG TAB PO SCH (21:02)
[2020-11-05 03:12] VITALS: RESP 18
[2020-11-05] MEDS: FUROSEMIDE 40 MG TAB PO SCH (06:57)
[2020-11-05] MEDS: PANTOPRAZOLE 40 MG TABLET PO SCH (06:57)
[2020-11-05] MEDS ORDERED: INSULIN DETEMIR (LEVEMIR) 100 UNIT/ML SYR SQ SCH (07:00)
[2020-11-05 07:34] LABS: Glucose,Whole Blood 197 mg/dL (75-99)
[2020-11-05] MEDS: ASPIRIN 81 MG PO SCH (08:08)
[2020-11-05] MEDS: CLOPIDOGREL 75 MG TAB PO SCH (08:09)
[2020-11-05] MEDS: levETIRAcetam 250 MG TAB PO SCH (08:09)
[2020-11-05] MEDS: cloNIDine HCL 0.2 MG TAB PO SCH ×2 (08:09→16:47)
[2020-11-05] MEDS: ISOSORBIDE MONONITRATE ER 60 MG TAB.ER.24H PO SCH (08:09)
[2020-11-05] MEDS: INSULIN ASPART (NovoLOG) 100 UNIT/ML VIAL SQ SCH ×2 (08:12→13:20)
[2020-11-05] MEDS: NON FORMULARY DRUG (Canagliflozin [Invokana] 300 MG Tablet) PO SCH (08:12)
[2020-11-05 10:05] VITALS: PULSE 69
--- NOTE | 2020-11-05 11:32 | EEG ---
ELECTROENCEPHALOGRAM REPORT DATE OF SERVICE: 11/04/2020 PREAMBLE: This is a 75-year-old male admitted to the hospital with decreased responsiveness. This study is performed to rule out any epileptiform activity. Patient does have history of strokes, TIA, diabetes, hyperlipidemia, hypertension, and liver disease. EEG FINDINGS: This is a 21 channel a routine EEG recording in a patient utilizing 10/20 international system with referential and bipolar montages. The background consists of well- developed, moderately well regulated, mixed frequencies in 6-7 hertz theta with 8 hertz alpha activity. Background seems to be slightly reactive to eye opening and closing. Photic driving response was not seen. No focal or generalized epileptiform activity was seen. The EKG artifacts were seen. Different stages of sleep were not seen. The EKG channel showed no significant arrhythmia. IMPRESSION: This is an abnormal EEG due to background slowing of mild degree. This is suggestive of generalized cerebral dysfunction as can be seen with toxic metabolic encephalopathy or due to diffuse structural brain abnormality. No epileptiform activity was seen. MMODL / IJN: [id number] /
--- NOTE | 2020-11-05 11:56 | ECHOF ---
Referral Reason:stroke MEASUREMENTS -------- HEIGHT: 172.7 cm WEIGHT: 93.0 kg BP: 130/68 IVSd: 1.3 cm (0.6 - 1.1) LVIDd: 3.6 cm (3.9 - 5.3) LVPWd: 1.1 cm (0.6 - 1.1) IVSs: 1.4 cm LVIDs: 1.9 cm LVPWs: 1.6 cm Ao Diam: 3.0 cm (2.0 - 3.7) AV Cusp: 1.9 cm (1.5 - 2.6) LA Diam: 2.8 cm (2.7 - 3.8) MV EXCURSION: 14.924 mm (> 18.000) MV EF SLOPE: 47 mm/s (70 - 150) EPSS: 1.0 cm MV E Erasto: 0.61 m/s MV DecT: 292 ms MV A Erasto: 0.87 m/s MV E/A Ratio: 0.70 FINDINGS -------- Sinus rhythm. This was a technically difficult study with suboptimal views. The left ventricular size is normal. Left ventricular wall thickness is normal. Overall left vent ricular systolic function is normal with, an EF between 55 - 60 %. The right ventricle is normal in size. The left atrial size is normal. The right atrial size is normal. Lumason used The aortic valve was not well visualized. The mitral valve is normal. There is trace mitral regurgitation. The tricuspid valve appears structurally normal. Trace tricuspid regurgitation present. Right caio tricular systolic pressure is normal at < 35 mmHg. The pulmonic valve was not well visualized. There is no pulmonic regurgitation present. The aortic root size is normal. IVC Not well visulized. There is no pericardial effusion. CONCLUSIONS -------- 1. This was a technically difficult study with suboptimal views. 2. Overall left ventricular systolic function is normal with, an EF between 55 - 60 %. 3. The left atrial size is normal. 4. There is trace mitral regurgitation. 5. Trace tricuspid regurgitation present. 6. There is no pericardial effusion. BAG GRADER: Montserrat Devi, [facility]
[2020-11-05 12:18] LABS: Glucose,Whole Blood 239 mg/dL (75-99)
[2020-11-05 14:06] VITALS: BP 140/71; TEMP 97.6
--- NOTE | 2020-11-05 14:45 | P.PN ---
Subjective Progress Note Date: 11/05/20 Principal diagnosis: ICA stenosis, history of CVA seen and examined sitting up in bed. He denies any acute changes through the night. He denies any focal deficits. States his vision is improved. Objective - Vital Signs Vital signs: Vital Signs Temp 97.5 F L 11/05/20 08:00 Pulse 69 11/05/20 08:00 Resp 18 11/05/20 08:00 BP 129/70 11/05/20 08:00 Pulse Ox 97 11/05/20 08:00 Intake & Output 11/04/20 11/05/20 11/05/20 18:59 06:59 18:59 Intake Total 720 240 476 Output Total 1 1 Balance 719 239 476 Weight 93.3 kg Intake: Oral 720 240 476 Output: Urine 1 1 Other: Voiding Method Bedside Commode Toilet Toilet Diaper Diaper Diaper # Voids 1 1 1 - Exam General appearance: The patient is alert, oriented to place and self, in no acute distress. HET: Head is normocephalic and atraumatic. Pupils are equal and reactive. Neck: Supple without lymphadenopathy. Trachea midline. Heart: S1 S2. Regular rate and rhythm. Lungs: No crackles or wheezes are heard. Abdomen: Soft, nontender, nondistended Extremities: Normal skin color and turgor. bilateral palpable radial pulses. Neurological: No focal deficits. Strength and sensation are grossly intact. - Labs CBC & Chem 7: 11/03/20 11:17 11/03/20 11:17 Labs: Abnormal Lab Results - Last 24 Hours (Table) 11/04/20 11/04/20 11/04/20 Range/Units 12:01 16:55 20:29 POC Glucose (mg/dL) 145 H 154 H 163 H (75-99) mg/dL 11/05/20 Range/Units 07:33 POC Glucose (mg/dL) 197 H (75-99) mg/dL Assessment and Plan Assessment: 2. Possible seizures 2. History of left-sided stroke 3. No evidence of carotid stenosis 4. Diabetes mellitus type 2 5. Hyperlipidemia 6. Chronic kidney disease Plan: no vascular surgical intervention indicated. Patient should follow-up with a neuro-interventionalists. Continue medical management. Thank you for this consultation we will sign off at this time. The above dictated assessment and findings were discussed with Dr. Hu. The impression and plan of care have been directed as dictated.
--- NOTE | 2020-11-05 15:47 | P.PN ---
Subjective Progress Note Date: 11/05/20 HISTORY OF PRESENT ILLNESS: 75-year-old male who presented to the hospital secondary to headache and altered mental status. Patient has been diagnosed with bilateral CVA. Patient examined this morning at the bedside. Patient denies chest pain or pressure. He denies shortness of breath. Vital signs stable. PHYSICAL EXAM: VITAL SIGNS: Reviewed. GENERAL: Well-developed in no acute distress. NECK: Supple. No JVD or thyromegaly LUNGS: Respirations even and unlabored. Lungs essentially clear to auscultation bilaterally. HEART: Regular rate and rhythm. S1 and S2 heard. EXTREMITIES: Normal range of motion. No clubbing or cyanosis. Peripheral pulses intact. No lower extremity edema ASSESSMENT: Altered mental status Bilateral CVA, on dual antiplatelet therapy Carotid atherosclerosis Hypertension Hyperlipidemia Chronic kidney disease Dementia PLAN: Loop recorder interrogation completed and reviewed Continue current cardiac medications Continue dual antiplatelet therapy Patient currently stable from a cardiac standpoint Nurse practitioner note has been reviewed by physician. Signing provider agrees with the documented findings, assessment, and plan of care. Objective - Vital Signs Vital signs: Vital Signs Temp 97.6 F 11/05/20 12:00 Pulse 69 11/05/20 14:00 Resp 18 11/05/20 14:00 BP 140/71 11/05/20 12:00 Pulse Ox 97 11/05/20 12:00 Intake & Output 11/04/20 11/05/20 11/05/20 18:59 06:59 18:59 Intake Total 720 240 476 Output Total 1 1 Balance 719 239 476 Weight 93.3 kg Intake: Oral 720 240 476 Output: Urine 1 1 Other: Voiding Method Bedside Commode Toilet Toilet Diaper Diaper Diaper # Voids 1 1 1 - Labs CBC & Chem 7: 11/03/20 11:17 11/03/20 11:17 Labs: Abnormal Lab Results - Last 24 Hours (Table) 11/04/20 11/04/20 11/05/20 Range/Units 16:55 20:29 07:33 POC Glucose (mg/dL) 154 H 163 H 197 H (75-99) mg/dL 11/05/20 Range/Units 12:16 POC Glucose (mg/dL) 239 H (75-99) mg/dL
--- NOTE | 2020-11-05 17:07 | P.PN ---
Subjective Progress Note Date: 11/05/20 patient was seen by Dr. Jf Hall in consultation. Please refer to his note for details. Patient admitted with episode of unresponsiveness. I spoke to patient's daughter in detail. She states that he was sitting down, had finished breakfast, when he suddenly complained that he couldn't see. At that time he could not respond, was in a daze. He was out for 5 minutes and felt very weak and tired afterwards. There was no loss of consciousness, no loss of control of urine or tongue bite. No convulsive activity noted. She mentions that he had another spell in August 2020, when while sitting in the [place], his eyes rolled up, and he fell to the right side from his wheelchair, and couldn't talk. this episode also lasted for 5 minutes. Patient was seen for a follow-up. Patient is sitting on the side of the bed. Alert and awake, denies any headache, denies any chest pain. Offers no compl aints. Objective - Vital Signs Vital signs: Vital Signs Temp 97.6 F 11/05/20 12:00 Pulse 69 11/05/20 14:00 Resp 18 11/05/20 14:00 BP 140/71 11/05/20 12:00 Pulse Ox 97 11/05/20 12:00 Intake & Output 11/04/20 11/05/20 11/05/20 18:59 06:59 18:59 Intake Total 720 240 476 Output Total 1 1 Balance 719 239 476 Weight 93.3 kg Intake: Oral 720 240 476 Output: Urine 1 1 Other: Voiding Method Bedside Commode Toilet Toilet Diaper Diaper Diaper # Voids 1 1 1 - Exam patient is alert and awake. Speech could not be tested in detail because of language barrier. Family members were not present. patient follows simple commands. Patient has right homonymous hemianopsia. Patient's face is symmetric. Muscle strength shows no pronator drift. The strength appears equal and normal bilaterally. gait deferred. - Labs CBC & Chem 7: 11/03/20 11:17 11/03/20 11:17 Labs: Abnormal Lab Results - Last 24 Hours (Table) 11/04/20 11/04/20 11/05/20 Range/Units 16:55 20:29 07:33 POC Glucose (mg/dL) 154 H 163 H 197 H (75-99) mg/dL 11/05/20 Range/Units 12:16 POC Glucose (mg/dL) 239 H (75-99) mg/dL Assessment and Plan Assessment: * History of multiple strokes in the past, came with episode of u nresponsiveness, presumed to be a seizure. * left ICA stenosis at the siphon 70%. 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 * MRI of the brain revealed age-related atrophic and chronic small vessel ischemic change. No acute intracranial process at this time. Remote insult posterior left parietal lobe. * EEG was normal. * Continue dual antiplatelet medications, and high-dose statins. * Patient has 70% stenosis left ICA at the level of the siphon. Per vascular surgery, it is not accessible. Patient would need follow-up with neuro intervention, if stenting could be considered for this left ICA stenosis. patient will follow up with Dr. Centeno * Optimize control of stroke risk factors. * Hemoglobin A1c 8.2 from 11/03/2020. Recommend optimizing diabetes to target A1c < 7.0 * discussed with patient's daughter in detail. * Neurologically clear for discharge.
--- NOTE | 2020-11-05 23:31 | P.DS ---
Providers Date of admission: 11/03/20 13:12 Expected date of discharge: 11/05/20 Attending physician: Tadeo Dickerson Consults: 11/03/20 13:13 Consult Physician Routine Consulting Provider: Jf Hall Consult Reason/Comments: Decreased responsiveness Do you want consulting provider notified?: Yes Consult Physician Routine Consulting Provider: [facility] Consult Reason/Comments: Decreased responsiveness Do you want consulting provider notified?: Yes 11/03/20 17:03 Consult Physician Routine Consulting Provider: Dionicio Otero Consult Reason/Comments: left ica stenosis Do you want consulting provider notified?: Yes Primary care physician: [facility] Course: Chief Complaint: Unresponsive episode History of presenting complaint: This is a 75-year-old patient of Dr. Santana. Chronic stable medical conditions include hyperlipidemia, diabetes, obstructive sleep apnea, osteoarthritis, kidney stones, cognitive impairment-dementia. 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 KARISHMA-did not show any embolic source. Preserved LV function. Normal valves. MRI of the brain did show acute ischemic change within the left parietal occipital watershed area. Additional focal area of acute ischemic change in the right frontal lobe. MRA of the brain was unremarkable. 2-D echocardiogram showed EF of 55%. Normal LV function. Carotid Doppler was unremarkable. residual right-sided weakness.- assistance with walking. Patient has a loop recorder placed because multiple episodes of decreased responsiveness since July. This time patient's presents with an episode as described by his daughter to the neurologist Dr. Hall: "She stated, today where he complains of a headache, he lost his vision at 10am (could not see out of left eye) then non-responsiveness. His episode of not respoding lasted 5 minutes. No jerking of any extremities. No foaming around the mouth. No urinary or bowel incontinence. He has a similiar episode this past lasting 5 minutes but refused to seek medical attention. He usually have these episode in the morning. After these episodes the feels generalized fatigue and going to sleep for 1 hour. Prior to the episode he complains of headache. ". Patient himself is not a good historian. Patient is similar episode a week ago. Admitted with a diagnoses of seizure. Not felt to be acute stroke. Started on Keppra. Patient will follow-up with neuro-test baker Dr Ray to evaluate further stenosis in the carotid siphon. EEG was negative for seizure. Today-no further episodes. Tolerating diet. No new issues. Walk in the hallway with walker. Discussed with Dr. Nash from neurology. Told to MT. Also discussed with Bakari MENDOZA from vascular will arrange with Dr. ray to follow- up Discussion and discharge planning more than 35 minutes Consultation: Neurology Dr. Johns from vascular Past medical history to include: Diabetes, hyperlipidemia, hypertension, obstructive sleep apnea, osteoarthritis, kidney stones, cognitive impairment, stroke hypertension with right-sided weakness, depression Social history: No history of smoking or alcohol. Lives with his . Physical examination: VITAL SIGNS: 97.6, 69, 18, 140/71, 97% room air GENERAL: Sitting up comfortable EYES: Pupils equal. Conjunctiva normal. NECK: JVD not raised; masses not palpable. HEART: First and second heart sounds are normal; no edema. LUNGS: Respiratory rate normal; clear to auscultation. ABDOMEN: Soft, nontender, liver spleen not palpable, no masses palpable. PSYCH: Awak answering simple questions NEUROLOGICAL: [Cranial nerves grossly intact; no facial asymmetry, power 4/5 on the right side. Did walk in the hallway with a walker INVESTIGATIONS, reviewed in the clinical context: EEG-negative for seizure activity Carotid Doppler: Less than 20% stenosis in both ICAs EKG tracing personally reviewed by me-normal sinus rhythm White count 8.8 hemoglobin 13.7 platelets 314 potassium 4.4 bun 37 creatinine 1.99 Computed tomography scan of the brain-subacute left parietal occipital hemoglobin infarct Chest x-ray film personally reviewed by me-no obvious pulmonary edema Coronavirus [PCR]-not detected Previous testing: Creatinine 1.94 from June 2020 MRA of the brain-2019-narrowing of the left carotid siphon approaching 70%. Assessment: -Episode of decreased responsiveness, eyes rolling back. Been feeling sleepy afterwards for an hour. Discussed with Dr. Lema from neurology. It is believed more to be a seizure episode as a posterior stroke. He did also review the CAT scan and doesn't think it's an acute stroke. Patient be started on AED -essential hypertension - stroke in the left parieto-occipital area on 07/07/2020, -Possible significant stenosis in the left carotid siphon.-To follow-up with neuro-test baker Dr. ray -Obesity BMI35.7 -Right paresis from previous stroke-. 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 Uncontrolled with hypoglycemia. Cutback on schedule and evening dose of insulin. Follow Accu- Cheks closely. -Depression otherwise specified-On Cymbalta -Hyperlipidemia-On Lipitor -Chronic kidney disease stage III from hypertensive nephrosclerosis and diabetic nephropathy-Follow renal function Disposition: Home Patient Condition at Discharge: Stable Plan - Discharge Summary Discharge Rx Participant: Yes New Discharge Prescriptions: New levETIRAcetam [Keppra] 750 mg PO Q12HR #90 tab Atorvastatin [Lipitor] 80 mg PO HS #30 tab Continue Isosorbide Mononitrate ER [Imdur] 60 mg PO DAILY cloNIDine HCL [Catapres] 0.2 mg PO TID DULoxetine HCL [Cymbalta] 30 mg PO HS Losartan [Cozaar] 100 mg PO HS Albuterol Nebulized [Ventolin Nebulized] 2.5 mg INHALATION RT-QID PRN PRN Reason: Shortness Of Breath Omeprazole 20 mg PO DAILY Aspirin 81 mg PO DAILY #30 chewable Clopidogrel [Plavix] 75 mg PO DAILY #30 tab Furosemide [Lasix] 40 mg PO DAILY #0 amLODIPine [Norvasc] 10 mg PO HS #30 tab Canagliflozin [Invokana] 300 mg PO DAILY Dulaglutide [Trulicity] 1.5 mg SQ SA Ergocalciferol (Vitamin D2) [Vitamin D2 (2000 Iu)] 50 mcg PO DAILY INSULIN ASPART (NovoLOG) [NovoLOG (formulary)] See Protocol SQ AC-TID PRN PRN Reason: Blood Sugar - High Changed Insulin Glargine [Lantus] 28 unit SQ DAILY #0 INSULIN ASPART (NovoLOG) [NovoLOG (formulary)] 6 unit SQ AC-TID #0 Discontinued Atorvastatin [Lipitor] 40 mg PO HS #30 tab Atenolol [Tenormin] 25 mg PO DAILY INSULIN ASPART (NovoLOG) [NovoLOG (formulary)] 5 unit SQ AC-LUNCH INSULIN ASPART (NovoLOG) [NovoLOG (formulary)] 5 unit SQ AC-BRKFST Discharge Medication List DULoxetine HCL [Cymbalta] 30 mg PO HS 03/13/16 [History] Isosorbide Mononitrate ER [Imdur] 60 mg PO DAILY 03/13/16 [History] cloNIDine HCL [Catapres] 0.2 mg PO TID 03/13/16 [History] Albuterol Nebulized [Ventolin Nebulized] 2.5 mg INHALATION RT-QID PRN 07/08/20 [History] Losartan [Cozaar] 100 mg PO HS 07/08/20 [History] Omeprazole 20 mg PO DAILY 07/08/20 [History] Aspirin 81 mg PO DAILY #30 chewable 07/11/20 [Rx] Clopidogrel [Plavix] 75 mg PO DAILY #30 tab 07/11/20 [Rx] Furosemide [Lasix] 40 mg PO DAILY #0 07/11/20 [Rx] amLODIPine [Norvasc] 10 mg PO HS #30 tab 07/14/20 [Rx] Canagliflozin [Invokana] 300 mg PO DAILY 11/03/20 [History] Dulaglutide [Trulicity] 1.5 mg SQ SA 11/03/20 [History] Ergocalciferol (Vitamin D2) [Vitamin D2 (2000 Iu)] 50 mcg PO DAILY 11/03/20 [History] INSULIN ASPART (NovoLOG) [NovoLOG (formulary)] See Protocol SQ AC-TID PRN 11/03/20 [History] Atorvastatin [Lipitor] 80 mg PO HS #30 tab 11/05/20 [Rx] INSULIN ASPART (NovoLOG) [NovoLOG (formulary)] 6 unit SQ AC-TID #0 11/05/20 [Rx] Insulin Glargine [Lantus] 28 unit SQ DAILY #0 11/05/20 [Rx] levETIRAcetam [Keppra] 750 mg PO Q12HR #90 tab 11/05/20 [Rx] Follow up Appointment(s)/Referral(s): own-neurologistdr [Other] - 2 Weeks (Please follow up with your regular neurologist within two weeks of being discharged.) Conner Centeno MD [STAFF PHYSICIAN] - 1 Week (Neurological lactation consultant for patients carotid stenosis.) Dennis Santana DO [Primary Care Provider] - 11/09/20 9:40 am Patient Instructions/Handouts: Carotid Artery Disease (DC), Altered Mental Status (ED), New-Onset Seizure in Adults (DC) Activity/Diet/Wound Care/Special Instructions: seizure precautions Discharge Disposition: HOME SELF-CARE
[2020-11-06 05:12] LABS: Hemoglobin A1C 8.2 % (4.0-6.0)
--- NOTE | 2020-11-08 07:50 | MR ---
EXAMINATION TYPE: MR brain wo con DATE OF EXAM: 11/05/2020 1:01 PM COMPARISON: NONE HISTORY: RT side weakness, history of strokes FINDINGS: The ventricles, basal cisterns and sulci overlying the cerebral convexities are moderately enlarged. Remote insult posterior left parietal lobe. No evidence for acute edema. There is evidence of mild periventricular white matter ischemic demyelination. Remote deep white matter insults are also noted. No acute edema is seen on diffusion weighted imaging. There is no evidence for midline shift or mass effect. Acute intracranial hemorrhage or extra-axial collection is not evident. The paranasal sinuses and mastoid air cells are well-aerated. IMPRESSION: Age-related atrophic and chronic small vessel ischemic change. No acute intracranial process at this time. Remote insult posterior left parietal lobe.
== END 2020-11-05 16:53 | disposition home or self-care (01) ==
LOC: EC 10:45 → INTOOBSV 13:12 → 3SCARD 13:12 → UNDODISIN 11-05 16:53
PROVIDERS: ADMIT Hospitalist; ATTEND Hospitalist
DX: R41.82 Altered mental status, unspecified (principal); E78.5 Hyperlipidemia, unspecified; M19.90 Unspecified osteoarthritis, unspecified site; E11.649 Type 2 diabetes mellitus with hypoglycemia without coma; E11.22 Type 2 diabetes mellitus with diabetic chronic kidney disease; E11.65 Type 2 diabetes mellitus with hyperglycemia; E11.40 Type 2 diabetes mellitus with diabetic neuropathy, unspecified; G47.33 Obstructive sleep apnea (adult) (pediatric); R41.89 Other symptoms and signs involving cognitive functions and awareness; F32.9 Major depressive disorder, single episode, unspecified; E66.9 Obesity, unspecified; Z68.35 Body mass index [BMI] 35.0-35.9, adult; I12.9 Hypertensive chronic kidney disease with stage 1 through stage 4 chronic kidney disease, or unspecified chronic kidney disease; N18.30 Chronic kidney disease, stage 3 unspecified; I69.351 Hemiplegia and hemiparesis following cerebral infarction affecting right dominant side; H54.7 Unspecified visual loss; I69.320 Aphasia following cerebral infarction; R32 Unspecified urinary incontinence; I65.22 Occlusion and stenosis of left carotid artery; F03.90 Unspecified dementia, unspecified severity, without behavioral disturbance, psychotic disturbance, mood disturbance, and anxiety; K76.9 Liver disease, unspecified; Z79.4 Long term (current) use of insulin; Z79.02 Long term (current) use of antithrombotics/antiplatelets; Z79.51 Long term (current) use of inhaled steroids; Z79.899 Other long term (current) drug therapy; Z99.89 Dependence on other enabling machines and devices; Z87.442 Personal history of urinary calculi; Z20.822 Contact with and (suspected) exposure to COVID-19; Z83.3 Family history of diabetes mellitus; Z80.9 Family history of malignant neoplasm, unspecified; Z79.82 Long term (current) use of aspirin; Z98.890 Other specified postprocedural states
CPT/HCPCS: 96372 ×2; 99285; 36415; 95819; 93005; 97162; 97166; 92610; 92523; 80061; 80053; 83735; 84484; 85025; 85610; 85730; 83036; 87635; 71046; 93880; 70450; 70551; G0378 ×3; C8929; J1650 ×2; J1953; Q9950; 93306

== ENCOUNTER 2020-12-11 17:08 | Inpatient (IN) | payer MEDICARE ==
[2020-12-11] MEDS ORDERED: HYDROmorphone 0.5 MG/0.5 ML SYRINGE IVP STA (17:22)
[2020-12-11] MEDS ORDERED: PANTOPRAZOLE 40 MG/10 ML VIAL IVP STA (17:22)
--- NOTE | 2020-12-11 17:26 | ED ---
General Adult HPI - General Stated complaint: chest pain Time Seen by Provider: 12/11/20 17:13 Source: patient, family, RN notes reviewed, old records reviewed - History of Present Illness Initial comments: 75-year-old male presenting for evaluation of abdominal pain and lower chest pain. Symptoms began last night with chief complaint of abdominal pain according to the patient's daughter who is at bedside. Family had thought this might be indigestion and given him an antacid. Staff after noon at approximately 3 PM the patient had severe epigastric pain. Patient does not speak [place] as his primary language she is able to answer simple questions and his daughter is at bedside. No reported fever. There is some nausea as well as vomiting. Patient denies focal numbness or weakness in his limbs. He is currently on aspirin and Plavix with history of CVA. - Related Data Home Medications Medication Instructions Recorded Confirmed DULoxetine HCL [Cymbalta] 30 mg PO HS 03/13/16 12/11/20 Isosorbide Mononitrate ER [Imdur] 60 mg PO DAILY 03/13/16 12/11/20 cloNIDine HCL [Catapres] 0.2 mg PO TID 03/13/16 12/11/20 Albuterol Nebulized [Ventolin 2.5 mg INHALATION RT-QID PRN 07/08/20 12/11/20 Nebulized] Losartan [Cozaar] 50 mg PO HS 07/08/20 12/11/20 Omeprazole 20 mg PO DAILY 07/08/20 12/11/20 Canagliflozin [Invokana] 300 mg PO DAILY 11/03/20 12/11/20 Dulaglutide [Trulicity] 1.5 mg SQ SA 11/03/20 12/11/20 INSULIN ASPART (NovoLOG) [NovoLOG See Protocol SQ AC-TID PRN 11/03/20 12/11/20 (formulary)] Cholecalciferol [Vitamin D3 (25 50 mcg PO DAILY 12/11/20 12/11/20 Mcg = 1000 Iu)] Ergocalciferol (Vitamin D2) 1,250 mcg PO FR 12/11/20 12/11/20 [Drisdol (50,000 Iu)] Furosemide [Lasix] 40 mg PO BID 12/11/20 12/11/20 INSULIN ASPART (NovoLOG) [NovoLOG 5 unit SQ BID@0900,1200 12/11/20 12/11/20 (formulary)] INSULIN ASPART (NovoLOG) [NovoLOG 12 unit SQ W/SUPPER 12/11/20 12/11/20 (formulary)] Insulin Glargine [Lantus] 36 unit SQ DAILY 12/11/20 12/11/20 [place]-3 Fatty Acids/Fish Oil [Fish 1 cap PO DAILY 12/11/20 12/11/20 Oil 1,000 mg Softgel] levETIRAcetam [Keppra] 500 mg PO BID 12/11/20 12/11/20 Previous Rx's Medication Instructions Recorded Aspirin 81 mg PO DAILY #30 chewable 07/11/20 Clopidogrel [Plavix] 75 mg PO DAILY #30 tab 07/11/20 amLODIPine [Norvasc] 10 mg PO HS #30 tab 07/14/20 Atorvastatin [Lipitor] 80 mg PO HS #30 tab 11/05/20 Allergies Allergy/AdvReac Type Severity Reaction Status Date / Time No Known Allergies Allergy Verified 11/03/20 11:27 Review of Systems ROS Statement: Those systems with pertinent positive or pertinent negative responses have been documented in the HPI. ROS Other: All systems not noted in ROS Statement are negative. Past Medical History Past Medical History: CVA/TIA, Diabetes Mellitus, Hyperlipidemia, Hypertension, Liver Disease, Renal Disease, Sleep Apnea/CPAP/BIPAP Additional Past Medical History / Comment(s): ARTHRITIS, kidney stones, possible dementia, kidney failure, neuropathy alia legs, carpal tunnel. CVA-oct 20 balance issues,speech impairment,vision impairment, receives injections to eyes r/t bleeding History of Any Multi-Drug Resistant Organisms: None Reported Past Surgical History: Back Surgery Additional Past Surgical History / Comment(s): MASS REMOVED FROM BACK OF HEAD, eye surgery, Past Anesthesia/Blood Transfusion Reactions: No Reported Reaction Past Psychological History: Depression Smoking Status: Never smoker Past Alcohol Use History: None Reported Past Drug Use History: None Reported - Past Family History Father Family Medical History: Diabetes Mellitus Mother Family Medical History: Diabetes Mellitus Brother(s) Family Medical History: Cancer Sister(s) Family Medical History: Cancer General Exam General appearance: alert, in distress Head exam: Present: atraumatic, normocephalic Eye exam: Present: normal appearance, PERRL Neck exam: Present: normal inspection. Absent: tenderness, meningismus Respiratory exam: Present: normal lung sounds bilaterally. Absent: respiratory distress, wheezes Cardiovascular Exam: Present: regular rate, normal rhythm, other (Distal pulses are 2+ and symmetric in both upper extremities and lower extremities.) GI/Abdominal exam: Present: soft, distended. Absent: tenderness, guarding, rebound Extremities exam: Present: normal inspection, normal capillary refill. Absent: pedal edema Neurological exam: Present: alert. Absent: motor sensory deficit Psychiatric exam: Present: normal affect, normal mood Skin exam: Present: warm, dry, intact. Absent: cyanosis, diaphoretic Course Vital Signs 12/11/20 12/11/20 17:20 18:16 Temperature 98.5 F Pulse Rate 108 H 112 H Respiratory 18 20 Rate Blood Pressure 179/84 169/96 O2 Sat by Pulse 99 97 Oximetry - Reevaluation(s) Reevaluation #1: 12/11/20 20:45 Patient reevaluated, resting comfortably, pain has subsided. EKG Findings - EKG Comments: EKG Findings:: EKG: Normal sinus rhythm MS interval 148, ventricular rate of 92, QRS duration 92, QTC 447, no ST segment elevation. Medical Decision Making - Medical Decision Making 75-year-old male presenting with epigastric pain and lower chest pain. EKG sinus without ST segment elevation. Workup does reveal chest x-ray with no acute abnormality. Ultrasound of the gallbladder performed showing a dilated common bile duct with no stone noted. Patient has an elevated bilirubin at 2.0, mild transaminitis. An elevated white blood cell count. He has acute kidney injury with a creatinine 2.0 baseline of normal. He will he continued on IV fluids, IV antibiotics. He will be admitted with both general surgery and history neurology placed on consult. Case is discussed with Dr. Dickerson who will admit. - Lab Data Result diagrams: 12/11/20 17:38 12/11/20 17:38 Lab Results 12/11/20 12/11/20 12/11/20 Range/Units 17:38 17:38 17:38 WBC 14.9 H (3.8-10.6) k/uL RBC 4.69 (4.30-5.90) m/uL Hgb 14.4 (13.0-17.5) gm/dL Hct 42.6 (39.0-53.0) % MCV 90.8 (80.0-100.0) fL MCH 30.8 (25.0-35.0) pg MCHC 33.9 (31.0-37.0) g/dL RDW 13.9 (11.5-15.5) % Plt Count 303 (150-450) k/uL MPV 7.5 Neutrophils % 93 % Lymphocytes % 4 % Monocytes % 1 % Eosinophils % 2 % Basophils % 0 % Neutrophils # 13.8 H (1.3-7.7) k/uL Lymphocytes # 0.6 L (1.0-4.8) k/uL Monocytes # 0.2 (0-1.0) k/uL Eosinophils # 0.3 (0-0.7) k/uL Basophils # 0.0 (0-0.2) k/uL PT 10.0 (9.0-12.0) sec INR 0.9 (<1.2) APTT 21.0 L (22.0-30.0) sec Sodium 137 (137-145) mmol/L Potassium 4.4 (3.5-5.1) mmol/L Chloride 104 (98-107) mmol/L Carbon Dioxide 20 L (22-30) mmol/L Anion Gap 13 mmol/L BUN 38 H (9-20) mg/dL Creatinine 2.05 H (0.66-1.25) mg/dL Est GFR (CKD-EPI)AfAm 36 (>60 ml/min/1.73 sqM) Est GFR (CKD-EPI)NonAf 31 (>60 ml/min/1.73 sqM) Glucose 224 H (74-99) mg/dL Plasma Lactic Acid Jens (0.7-2.0) mmol/L Calcium 9.6 (8.4-10.2) mg/dL Total Bilirubin 2.0 H (0.2-1.3) mg/dL AST 257 H (17-59) U/L ALT 108 H (4-49) U/L Alkaline Phosphatase 234 H (38-126) U/L Troponin I (0.000-0.034) ng/mL Total Protein 7.6 (6.3-8.2) g/dL Albumin 4.3 (3.5-5.0) g/dL Amylase 53 (30-110) U/L Lipase 203 (23-300) U/L 12/11/20 12/11/20 Range/Units 17:38 17:38 WBC (3.8-10.6) k/uL RBC (4.30-5.90) m/uL Hgb (13.0-17.5) gm/dL Hct (39.0-53.0) % MCV (80.0-100.0) fL MCH (25.0-35.0) pg MCHC (31.0-37.0) g/dL RDW (11.5-15.5) % Plt Count (150-450) k/uL MPV Neutrophils % % Lymphocytes % % Monocytes % % Eosinophils % % Basophils % % Neutrophils # (1.3-7.7) k/uL Lymphocytes # (1.0-4.8) k/uL Monocytes # (0-1.0) k/uL Eosinophils # (0-0.7) k/uL Basophils # (0-0.2) k/uL PT (9.0-12.0) sec INR (<1.2) APTT (22.0-30.0) sec Sodium (137-145) mmol/L Potassium (3.5-5.1) mmol/L Chloride (98-107) mmol/L Carbon Dioxide (22-30) mmol/L Anion Gap mmol/L BUN (9-20) mg/dL Creatinine (0.66-1.25) mg/dL Est GFR (CKD-EPI)AfAm (>60 ml/min/1.73 sqM) Est GFR (CKD-EPI)NonAf (>60 ml/min/1.73 sqM) Glucose (74-99) mg/dL Plasma Lactic Acid Jens 2.0 (0.7-2.0) mmol/L Calcium (8.4-10.2) mg/dL Total Bilirubin (0.2-1.3) mg/dL AST (17-59) U/L ALT (4-49) U/L Alkaline Phosphatase (38-126) U/L Troponin I <0.012 (0.000-0.034) ng/mL Total Protein (6.3-8.2) g/dL Albumin (3.5-5.0) g/dL Amylase (30-110) U/L Lipase (23-300) U/L Disposition Clinical Impression: Dehydration, JAMAAL (acute kidney injury), Hyperbilirubinemia, Common bile duct dilation Disposition: ADMITTED IP TO THIS HOSP Condition: Stable Is patient prescribed a controlled substance at d/c from ED?: No Referrals: Dennis Santana DO [Primary Care Provider] - 1-2 days Decision to Admit Reason: Admit from EC Decision Date: 12/11/20 Decision Time: 20:50
[2020-12-11 17:55] LABS: Basophils % (A) 0 %; Eosinophils # (A) 0.3 k/uL (0-0.7); Eosinophils % (A) 2 %; HCT 42.6 % (39.0-53.0); HGB 14.4 gm/dL (13.0-17.5); Lymphocytes # (A) 0.6 k/uL (1.0-4.8); Lymphocytes % (A) 4 %; MCH 30.8 pg (25.0-35.0); MCHC 33.9 g/dL (31.0-37.0); MCV 90.8 fL (80.0-100.0); Mean Platelet Volume 7.5; Monocytes # (A) 0.2 k/uL (0-1.0); Monocytes % (A) 1 %; Neutrophils # (A) 13.8 k/uL (1.3-7.7); Neutrophils % (A) 93 %; Platelet Count 303 k/uL (150-450); RBC 4.69 m/uL (4.30-5.90); RDW 13.9 % (11.5-15.5); WBC 14.9 k/uL (3.8-10.6)
--- NOTE | 2020-12-11 18:00 | XR ---
EXAMINATION TYPE: XR chest 1V portable DATE OF EXAM: 12/11/2020 COMPARISON: 11/03/2020 HISTORY: Chest pain TECHNIQUE: FINDINGS: Heart size is normal. There is no heart failure. Lungs are clear of consolidation. There is no sign of pleural effusion. There are chest leads. IMPRESSION: No active cardiopulmonary disease. No change.
[2020-12-11 18:04] LABS: INR 0.9 (<1.2)
[2020-12-11 18:17] LABS: Albumin 4.3 g/dL (3.5-5.0); Calcium 9.6 mg/dL (8.4-10.2); Potassium 4.4 mmol/L (3.5-5.1); Total Protein 7.6 g/dL (6.3-8.2)
[2020-12-11] MEDS ORDERED: SODIUM CHLORIDE 0.9% 1,000 ML IV ONE (18:24)
[2020-12-11] MEDS ORDERED: PIPERACILLIN-TAZOBACTAM 3.375 GM in SODIUM CHLORIDE 0.9% 100 ML IVPB STA (19:24)
--- NOTE | 2020-12-11 20:23 | US ---
EXAMINATION TYPE: US gallbladder DATE OF EXAM: 12/11/2020 COMPARISON: CT, US CLINICAL HISTORY: epigastric pain. Epigastric pain. Diabetic. EXAM MEASUREMENTS: Liver Length: 13.3 cm Gallbladder Wall: 0.33 cm CBD: Limited, measured at 1.23 cm Right Kidney: 10.3 x 5.2 x 6.0 cm Very difficult exam due to large body habitus. Patient holds most of his weight in his abdomen. Limit ed due to gas. Pancreas: Obscured. Liver: Limited. Appears coarse and to have increased attenuation. Gallbladder: Limited. Possible internal echoes. Wall measures 0.33 cm, upper limits of normal. Evidence for sonographic Killian's sign: No CBD: Limited, measured at 1.23 cm. This measurement suggests dilation. Right Kidney: Limited. Appears heterogeneous. IMPRESSION: Large common bile duct. No significant dilation of the intrahepatic bile ducts. This could relate to some chronic gallbladder dysfunction. No definite gallstones seen.
[2020-12-11] MEDS ORDERED: ONDANSETRON 4 MG/2 ML VIAL IVP PRN (20:42)
[2020-12-11] MEDS ORDERED: NALOXONE 0.4 MG/ML 1 ML VIAL IV PRN (20:42)
[2020-12-11] MEDS ORDERED: HYDROmorphone 0.5 MG/0.5 ML SYRINGE IVP PRN (20:42)
[2020-12-11] MEDS: SODIUM CHLORIDE 0.9% 1,000 ML IV SCH (20:54)
[2020-12-11] MEDS ORDERED: ALBUTEROL NEBULIZED 2.5 MG/3 ML INHALATION PRN (23:18)
[2020-12-11] MEDS: amLODIPine 10 MG TAB PO SCH (23:58)
[2020-12-11] MEDS: DULoxetine HCL 30 MG CAPSULE.DR PO SCH (23:58)
[2020-12-11] MEDS: levETIRAcetam 500 MG TAB PO SCH (23:58)
[2020-12-11] MEDS: cloNIDine HCL 0.2 MG TAB PO SCH (23:58)
[2020-12-11] MEDS: LOSARTAN 50 MG TAB PO SCH (23:58)
[2020-12-12 05:27] LABS: Basophils # (A) 0.1 k/uL (0-0.2); Basophils % (A) 0 %; Eosinophils # (A) 0.1 k/uL (0-0.7); Eosinophils % (A) 0 %; HCT 39.6 % (39.0-53.0); Lymphocytes # (A) 0.8 k/uL (1.0-4.8); Lymphocytes % (A) 3 %; MCH 30.6 pg (25.0-35.0); MCHC 32.8 g/dL (31.0-37.0); MCV 93.4 fL (80.0-100.0); Mean Platelet Volume 7.6; Monocytes # (A) 1.3 k/uL (0-1.0); Monocytes % (A) 5 %; Neutrophils # (A) 25.7 k/uL (1.3-7.7); Neutrophils % (A) 92 %; Platelet Count 249 k/uL (150-450); RBC 4.24 m/uL (4.30-5.90); RDW 13.8 % (11.5-15.5); WBC 28.1 k/uL (3.8-10.6)
[2020-12-12 05:40] LABS: Albumin 3.3 g/dL (3.5-5.0); Calcium 8.7 mg/dL (8.4-10.2); Potassium 4.5 mmol/L (3.5-5.1)
[2020-12-12 07:37] LABS: Glucose,Whole Blood 207 mg/dL (75-99)
[2020-12-12] MEDS: INSULIN ASPART (NovoLOG) 100 UNIT/ML VIAL SQ SCH ×4 (08:24→21:09)
[2020-12-12] MEDS: SODIUM CHLORIDE 0.9% 1,000 ML IV SCH ×2 (08:25→21:13)
[2020-12-12] MEDS: levETIRAcetam 500 MG TAB PO SCH ×2 (08:27→21:08)
[2020-12-12] MEDS: ISOSORBIDE MONONITRATE ER 60 MG TAB.ER.24H PO SCH (08:27)
[2020-12-12] MEDS: cloNIDine HCL 0.2 MG TAB PO SCH ×3 (08:28→21:09)
[2020-12-12] MEDS: PANTOPRAZOLE 40 MG/10 ML VIAL IV SCH (08:28)
[2020-12-12] MEDS: PANTOPRAZOLE 40 MG TABLET PO SCH (08:30)
[2020-12-12] MEDS: INSULIN DETEMIR (LEVEMIR) 100 UNIT/ML SYR SQ SCH (08:40)
[2020-12-12] MEDS ORDERED: PIPERACILLIN-TAZOBACTAM 3.375 GM in SODIUM CHLORIDE 0.9% 100 ML IVPB SCH (09:00)
[2020-12-12] MEDS ORDERED: ASPIRIN 81 MG PO SCH (09:00)
[2020-12-12 12:08] LABS: Glucose,Whole Blood 143 mg/dL (75-99)
[2020-12-12] MEDS ORDERED: INDOMETHACIN 50MG SUPPOSITORY RECTAL ONE (13:00)
--- NOTE | 2020-12-12 14:07 | P.GSCN ---
History of Present Illness Consult date: 12/12/20 History of present illness: CHIEF COMPLAINT: Abdominal pain HISTORY OF PRESENT ILLNESS: This is a 75-year-old Persian-speaking male. He does not speaking wish. He has a known history of stroke and takes aspirin and Plavix. Also has a history of diabetes, hyperlipidemia, hypertension, liver disease, chronic kidney disease and seizure disorder. Patient presents to the hospital with complaints of epigastric abdominal pain. Most of history was obtained from patient's chart. Patient's abdominal pain started last night. Initially family had thought it might be indigestion he took an antacid but continued to have pain. There was also some nausea and vomiting noted as well. Abdominal ultrasound showed large common bile duct. No significant dilation of the intrahepatic bile ducts. This could relate to some chronic gallbladder dysfunction. No definite gallstones seen. Patient did have elevated white count at 28.1 on admission with elevated bilirubin and LFTs. This morning patient appears to be lying comfortably in bed. Per nursing staff he did requ angela some pain medication during the night. PAST MEDICAL HISTORY: See list. PAST SURGICAL HISTORY: See list. MEDICATIONS: See list. ALLERGIES: See list. SOCIAL HISTORY: No illicit drug use. REVIEW OF SYSTEMS: CONSTITUTIONAL: Denies fever or chills. HEENT: Denies blurred vision, vision changes, or eye pain. Denies hemoptysis CARDIOVASCULAR: Denies chest pain or pressure. RESPIRATORY: No shortness of breath. GASTROINTESTINAL: See HPI for pertinent findings HEMATOLOGIC: Denies bleeding disorders. GENITOURINARY: Denies any blood in urine or increased urinary frequency. SKIN: Denies pruitis. Denies rash. PHYSICAL EXAM: VITAL SIGNS: Reviewed GENERAL: Well-developed in no acute distress. HEENT: No sclera icterus. Extraocular movements grossly intact. Moist buccal mucosa. Head is atraumatic, normocephalic. No nasal drainage. ABDOMEN: Soft. Nondistended. Minimal tenderness with palpation of the epigastric right area NEUROLOGIC: Alert and oriented. Cranial nerves II through XII grossly intact. LABORATORY DATA: WBC 28.1 Hgb is 13 platelets 249 sodium 136 potassium 4.5 UN 39 creatinine 2.43 glucose 229 Total bili is up to 3 AST 914 ALT 510 Alk phos 270 LFTs are trending upwards lipase 90 IMAGING: Abdominal ultrasound showed large common bile duct. No significant dilation of the intrahepatic bile ducts. This could relate to some chronic gallbladder dysfunction. No definite gallstones seen. ASSESSMENT: 1. Epigastric Abdominal pain with abdominal ultrasound showing a large common bile duct. No significant dilation of the intrahepatic bile ducts. This could relate to some chronic gallbladder dysfunction. No definite gallstones seen 2. Ascending cholangitis 3. 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 Signing provider agrees with the documented findings, assessment, and plan of care. Past Medical History Past Medical History: CVA/TIA, Diabetes Mellitus, Hyperlipidemia, Hypertension, Liver Disease, Renal Disease, Sleep Apnea/CPAP/BIPAP Additional Past Medical History / Comment(s): ARTHRITIS, kidney stones, possible dementia, kidney failure, neuropathy alia legs, carpal tunnel. CVA-jul 17 balance issues,speech impairment,vision impairment, receives injections to eyes r/t bleeding History of Any Multi-Drug Resistant Organisms: None Reported Past Surgical History: Back Surgery Additional Past Surgical History / Comment(s): MASS REMOVED FROM BACK OF HEAD, eye surgery, Past Anesthesia/Blood Transfusion Reactions: No Reported Reaction Past Psychological History: Depression Smoking Status: Never smoker Past Alcohol Use History: None Reported Past Drug Use History: None Reported - Past Family History Father Family Medical History: Diabetes Mellitus Mother Family Medical History: Diabetes Mellitus Brother(s) Family Medical History: Cancer Sister(s) Family Medical History: Cancer Medications and Allergies Home Medications Medication Instructions Recorded Confirmed Type DULoxetine HCL [Cymbalta] 30 mg PO HS 03/13/16 12/11/20 History Isosorbide Mononitrate ER [Imdur] 60 mg PO DAILY 03/13/16 12/11/20 History cloNIDine HCL [Catapres] 0.2 mg PO TID 03/13/16 12/11/20 History Albuterol Nebulized [Ventolin 2.5 mg INHALATION RT-QID PRN 07/08/20 12/11/20 History Nebulized] Losartan [Cozaar] 50 mg PO HS 07/08/20 12/11/20 History Omeprazole 20 mg PO DAILY 07/08/20 12/11/20 History Aspirin 81 mg PO DAILY #30 chewable 07/11/20 12/11/20 Rx Clopidogrel [Plavix] 75 mg PO DAILY #30 tab 07/11/20 12/11/20 Rx amLODIPine [Norvasc] 10 mg PO HS #30 tab 07/14/20 12/11/20 Rx Canagliflozin [Invokana] 300 mg PO DAILY 11/03/20 12/11/20 History Dulaglutide [Trulicity] 1.5 mg SQ SA 11/03/20 12/11/20 History INSULIN ASPART (NovoLOG) [NovoLOG See Protocol SQ AC-TID PRN 11/03/20 12/11/20 History (formulary)] Atorvastatin [Lipitor] 80 mg PO HS #30 tab 11/05/20 12/11/20 Rx Cholecalciferol [Vitamin D3 (25 50 mcg PO DAILY 12/11/20 12/11/20 History Mcg = 1000 Iu)] Ergocalciferol (Vitamin D2) 1,250 mcg PO FR 12/11/20 12/11/20 History [Drisdol (50,000 Iu)] Furosemide [Lasix] 40 mg PO BID 12/11/20 12/11/20 History INSULIN ASPART (NovoLOG) [NovoLOG 5 unit SQ BID@0900,1200 12/11/20 12/11/20 History (formulary)] INSULIN ASPART (NovoLOG) [NovoLOG 12 unit SQ W/SUPPER 12/11/20 12/11/20 History (formulary)] Insulin Glargine [Lantus] 36 unit SQ DAILY 12/11/20 12/11/20 History Gill-3 Fatty Acids/Fish Oil [Fish 1 cap PO DAILY 12/11/20 12/11/20 History Oil 1,000 mg Softgel] levETIRAcetam [Keppra] 500 mg PO BID 12/11/20 12/11/20 History Allergies Allergy/AdvReac Type Severity Reaction Status Date / Time No Known Allergies Allergy Verified 11/03/20 11:27 Surgical - Exam Vital Signs Temp Pulse Resp BP Pulse Ox 98.5 F 108 H 18 179/84 99 12/11/20 17:20 12/11/20 17:20 12/11/20 17:20 12/11/20 17:20 12/11/20 17:20 Results - Labs 12/12/20 04:55 12/12/20 04:55 Abnormal Lab Results - Last 24 Hours (Table) 12/11/20 12/11/20 12/11/20 Range/Units 17:38 17:38 17:38 WBC 14.9 H (3.8-10.6) k/uL RBC (4.30-5.90) m/uL Neutrophils # 13.8 H (1.3-7.7) k/uL Lymphocytes # 0.6 L (1.0-4.8) k/uL Monocytes # (0-1.0) k/uL APTT 21.0 L (22.0-30.0) sec Sodium (137-145) mmol/L Carbon Dioxide 20 L (22-30) mmol/L BUN 38 H (9-20) mg/dL Creatinine 2.05 H (0.66-1.25) mg/dL Glucose 224 H (74-99) mg/dL POC Glucose (mg/dL) (75-99) mg/dL Total Bilirubin 2.0 H (0.2-1.3) mg/dL AST 257 H (17-59) U/L ALT 108 H (4-49) U/L Alkaline Phosphatase 234 H (38-126) U/L Total Protein (6.3-8.2) g/dL Albumin (3.5-5.0) g/dL 12/12/20 12/12/20 12/12/20 Range/Units 04:55 04:55 07:36 WBC 28.1 H (3.8-10.6) k/uL RBC 4.24 L (4.30-5.90) m/uL Neutrophils # 25.7 H (1.3-7.7) k/uL Lymphocytes # 0.8 L (1.0-4.8) k/uL Monocytes # 1.3 H (0-1.0) k/uL APTT (22.0-30.0) sec Sodium 136 L (137-145) mmol/L Carbon Dioxide (22-30) mmol/L BUN 39 H (9-20) mg/dL Creatinine 2.43 H (0.66-1.25) mg/dL Glucose 229 H (74-99) mg/dL POC Glucose (mg/dL) 207 H (75-99) mg/dL Total Bilirubin 3.0 H (0.2-1.3) mg/dL AST 914 H (17-59) U/L ALT 510 H (4-49) U/L Alkaline Phosphatase 270 H (38-126) U/L Total Protein 6.0 L (6.3-8.2) g/dL Albumin 3.3 L (3.5-5.0) g/dL 12/12/20 Range/Units 12:06 WBC (3.8-10.6) k/uL RBC (4.30-5.90) m/uL Neutrophils # (1.3-7.7) k/uL Lymphocytes # (1.0-4.8) k/uL Monocytes # (0-1.0) k/uL APTT (22.0-30.0) sec Sodium (137-145) mmol/L Carbon Dioxide (22-30) mmol/L BUN (9-20) mg/dL Creatinine (0.66-1.25) mg/dL Glucose (74-99) mg/dL POC Glucose (mg/dL) 143 H (75-99) mg/dL Total Bilirubin (0.2-1.3) mg/dL AST (17-59) U/L ALT (4-49) U/L Alkaline Phosphatase (38-126) U/L Total Protein (6.3-8.2) g/dL Albumin (3.5-5.0) g/dL Diabetes panel 12/11/20 12/12/20 Range/Units 17:38 04:55 Sodium 137 136 L (137-145) mmol/L Potassium 4.4 4.5 (3.5-5.1) mmol/L Chloride 104 104 (98-107) mmol/L Carbon Dioxide 20 L 22 (22-30) mmol/L BUN 38 H 39 H (9-20) mg/dL Creatinine 2.05 H 2.43 H (0.66-1.25) mg/dL Glucose 224 H 229 H (74-99) mg/dL Calcium 9.6 8.7 (8.4-10.2) mg/dL AST 257 H 914 H (17-59) U/L ALT 108 H 510 H (4-49) U/L Alkaline Phosphatase 234 H 270 H (38-126) U/L Total Protein 7.6 6.0 L (6.3-8.2) g/dL Albumin 4.3 3.3 L (3.5-5.0) g/dL Calcium panel 12/11/20 12/12/20 Range/Units 17:38 04:55 Calcium 9.6 8.7 (8.4-10.2) mg/dL Albumin 4.3 3.3 L (3.5-5.0) g/dL Pituitary panel 12/11/20 12/12/20 Range/Units 17:38 04:55 Sodium 137 136 L (137-145) mmol/L Potassium 4.4 4.5 (3.5-5.1) mmol/L Chloride 104 104 (98-107) mmol/L Carbon Dioxide 20 L 22 (22-30) mmol/L BUN 38 H 39 H (9-20) mg/dL Creatinine 2.05 H 2.43 H (0.66-1.25) mg/dL Glucose 224 H 229 H (74-99) mg/dL Calcium 9.6 8.7 (8.4-10.2) mg/dL Adrenal panel 12/11/20 12/12/20 Range/Units 17:38 04:55 Sodium 137 136 L (137-145) mmol/L Potassium 4.4 4.5 (3.5-5.1) mmol/L Chloride 104 104 (98-107) mmol/L Carbon Dioxide 20 L 22 (22-30) mmol/L BUN 38 H 39 H (9-20) mg/dL Creatinine 2.05 H 2.43 H (0.66-1.25) mg/dL Glucose 224 H 229 H (74-99) mg/dL Calcium 9.6 8.7 (8.4-10.2) mg/dL Total Bilirubin 2.0 H 3.0 H (0.2-1.3) mg/dL AST 257 H 914 H (17-59) U/L ALT 108 H 510 H (4-49) U/L Alkaline Phosphatase 234 H 270 H (38-126) U/L Total Protein 7.6 6.0 L (6.3-8.2) g/dL Albumin 4.3 3.3 L (3.5-5.0) g/dL
[2020-12-12] MEDS ORDERED: PROPOFOL 10 MG/ML 20 ML VIAL IV ONE (14:38)
[2020-12-12] MEDS ORDERED: SUCCINYLCHOLINE CHLORIDE 100 MG/5 ML SYR IV ONE (14:38)
[2020-12-12] MEDS ORDERED: LIDOCAINE 1% INJ 10MG/ML (20 ML MDV) ONE (14:38)
[2020-12-12] MEDS ORDERED: ePHEDrine SULFATE/0.9% NACL/PF 50 MG/5 ML SYRINGE IV ONE (14:38)
[2020-12-12] MEDS ORDERED: IV FLUID CONTINUATION 800 ML IV ONE (14:40)
[2020-12-12] MEDS ORDERED: IOPAMIDOL-300 50ML BTL MISCELLANE ONE (15:07)
--- NOTE | 2020-12-12 15:29 | P.PCN ---
Date of Procedure: 12/12/20 Procedure(s) Performed: Brief history: Patient is a 75 year-old pleasant white male scheduled for an ERCP as part of evaluation of abdominal pain and elevated serum transaminases for the 1 day duration. Patient presents with severe epigastric pain. She believes 3.4 today. Elevated serum transaminases. White count increased to 28,000 and because of the clinical suspicion for ascending cholangitis he scheduled for an ERCP with CBD stent placement today. Patient is currently on aspirin and Plavix in the last dose was yesterday.. Procedure performed: ERCP CBD stent placement Preoperative diagnoses: Jaundice/elevated LFTs/epigastric pain and elevated white count rule out ascending cholangitis IV sedation per anesthesia: Procedure: After informed consent was obtained from the patient and after the risks benefits and complications including bleeding perforation and pancreatitis explained in detail the patient was brought into the endoscopy unit. The patient was placed in prone position and IV conscious sedation was administered by anesthesia under continuous monitoring. The Olympus side-viewing duodenoscope was then inserted into the mouth and esophagus intubated without any difficulty. The scope was gradually advanced into the stomach and duodenum. The major papilla was identified without any difficulty. Cannulation resulted resulted in opacification of the common bile duct appeared dilated measuring 1 m in diameter. There were 2 small faint filling defect identified in the distal common bile duct. At this time biliary sphincterotomy was not performed because of the patient being on aspirin and Plavix until yesterday. I proceeded with a CBD stent placement and a 7-Romanian 5 cm [place] stent was placed with good biliary drainage. The pancreatic duct was intentionally not cannulated. The patient tolerated the procedure well. Impression: Dilated common bile duct with 2 small faint filling defects in the distal common bile duct status post 7-Romanian 5 cm CBD stent placement as described above Pancreatic duct not cannulated Recommendations: The findings of this examination were discussed with the patient as well as a family. We'll start him on clear liquid diet today. Continue with broad-spectrum antibiotics. We will plan a repeat ERCP with CBD stone extraction in 3-4 days.
[2020-12-12 15:45] LABS: Glucose,Whole Blood 120 mg/dL (75-99)
--- NOTE | 2020-12-12 15:57 | FL ---
Fluoroscopy INDICATION: Pain FINDINGS: Fluoroscopy time: 7 seconds. Images obtained: 2. IMPRESSIONS: 1. Documentation of fluoroscopy.
--- NOTE | 2020-12-12 16:09 | CONS ---
CONSULTATION DATE OF DICTATION: 12/12/2020 REASON FOR CONSULTATION: Epigastric pain and substernal chest pain. HISTORY OF PRESENT ILLNESS: The patient is a 75-year-old pleasant white male who came to the emergency room complaining of severe epigastric pain and lower chest pain that started yesterday afternoon and continued to progressively get worse. The pain became very intense. He came to the emergency room and subsequently was admitted to the hospital for further evaluation. In the ER, he was noted to have elevated LFTs and jaundice with a bilirubin of 2, AST and ALT of 257 and 108, respectively, and alkaline phosphatase was 234. He did have ultrasound of the gallbladder done in the emergency room that showed distended gallbladder with a large common bile duct but no significant dilation of the intrahepatics. There were possible internal echoes noted but no definite gallstones identified. This morning the patient's white count was increased to 28,000; however, his pain has significantly improved. He reports no nausea, vomiting. No fever, chills or night sweats. We are consulted for possible ERCP. PAST MEDICAL HISTORY: Significant for CVA in the past, for which he is on aspirin and Plavix and last dose was yesterday. History of hypertension, diabetes mellitus, hyperlipidemia, gastroesophageal reflux disease. MEDICATIONS: Medications at home include insulin, Keppra, vitamin D3, Cozaar, Imdur, Lantus, Lasix, Cymbalta, Catapres, Trulicity, Plavix, Invokana, Norvasc, aspirin, Lipitor and Ventolin. ALLERGIES: NONE. SOCIAL HISTORY: No smoking. No alcohol use. FAMILY HISTORY: Unremarkable. REVIEW OF SYSTEMS: CARDIOPULMONARY: He denies any chest pain. He did have some chest pain yesterday, but no chest pain today. No shortness of breath. GENITOURINARY: No dysuria or hematuria. MUSCULOSKELETAL: Unremarkable. SKIN: Unremarkable. ENDOCRINE: Unremarkable. PSYCHIATRIC: Unremarkable. ENT/VISION: Unremarkable. CONSTITUTIONAL: No recent weight loss. No fever, chills, night sweats. PAST SURGICAL HISTORY: Back surgery and removal of kidney stones. PHYSICAL EXAMINATION: He appears comfortable. No apparent distress. VITAL SIGNS: Stable. Blood pressure is 116/63, pulse rate 68, temperature 98.2. HEENT examination unremarkable. Conjunctivae pink. Sclerae anicteric. Oral cavity no lesions. NECK: No JVD or lymph node enlargement. CHEST: Clear to auscultation. HEART: Regular rate and rhythm. ABDOMEN: Soft. There was very minimal tenderness in the epigastric area. Rest of the abdomen was benign. Bowel sounds are positive. EXTREMITIES: No pedal edema. NEUROLOGIC: Alert and oriented x3. No focal deficits. LABS: WBC 28.1, hemoglobin 13, platelets normal. PT/INR normal. T-bilirubin is up to 3. AST 1914, ALT 510, alkaline phosphatase 270. Lipase is 90. IMPRESSION: 1. This is a patient who presented to the hospital with acute onset of severe epigastric pain and lower sternal chest pain that started yesterday afternoon and noted to have elevated LFTs and mild jaundice. Ultrasound showed possible small internal echoes in the gallbladder, but no definite stones noted, and dilated common bile duct. The biochemical picture is suspicious for ascending cholangitis, possibly related to CBD stones. 2. History of diabetes mellitus. 3. History of hypertension. 4. History of hyperlipidemia. RECOMMENDATIONS: 1. Continue with broad-spectrum antibiotics. 2. Keep him n.p.o. today. 3. Because of the clinical suspicion for ascending cholangitis, will proceed with ERCP with CBD stent placement for biliary decompression. Unfortunately, biliary sphincterotomy cannot be performed because the patient is currently on aspirin and Plavix, which he took until yesterday. In the meantime, continue with symptomatic supportive care. Agree with surgical consultation. Will follow with you closely. Thank you for this consultation. MMODL / IJN: [id number] /
[2020-12-12 17:59] LABS: Glucose,Whole Blood 132 mg/dL (75-99)
[2020-12-12] MEDS: PIPERACILLIN-TAZOBACTAM 3.375 GM in SODIUM CHLORIDE 0.9% 100 ML IVPB SCH (18:26)
[2020-12-12 20:58] LABS: Glucose,Whole Blood 144 mg/dL (75-99)
[2020-12-12] MEDS: DULoxetine HCL 30 MG CAPSULE.DR PO SCH (21:08)
[2020-12-12] MEDS: amLODIPine 10 MG TAB PO SCH (21:08)
[2020-12-12] MEDS: LOSARTAN 50 MG TAB PO SCH (21:09)
--- NOTE | 2020-12-12 22:01 | P.HPIM ---
History of Present Illness H&P Date: 12/12/20 Chief Complaint: Abdominal pain Chief Complaint: Unresponsive episode History of presenting complaint: This is a 75-year-old patient of Dr. Santana. Chronic stable medical conditions include hyperlipidemia, diabetes, obstructive sleep apnea, osteoarthritis, kidney stones, cognitive impairment-dementia. 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 KARISHMA-did not show any embolic source/Preserved LV function. Normal valves. MRI of the brain did show acute ischemic change within the left parietal occipital watershed area. Additional focal area of acute ischemic change in the right frontal lobe. MRA of the brain was unremarkable. 2-D echocardiogram showed EF of 55%. Normal LV function. Carotid Doppler was unremarkable. residual right-sided weakness.- assistance with walking. Patient has a loop recorder placed because multiple episodes of decreased responsiveness since July. This time patient's presents with an episode as described by his daughter to the neurologist Dr. Hall: "She stated, today where he complains of a headache, he lost his vision at 10am (could not see out of left eye) then non-responsiveness. His episode of not respoding lasted 5 minutes. No jerking of any extremities. No foaming around the mouth. No urinary or bowel incontinence. He has a similiar episode this past lasting 5 minutes but refused to seek medical attention. He usually have these episode in the morning. After these episodes the feels generalized fatigue and going to sleep for 1 hour. Prior to the episode he complains of headache. ". Patient himself is not a good historian. Patient is similar episode a week ago. On November 03 admitted with a diagnoses of seizure. Found to have a stenosis in the carotid siphon. Supposed to follow-up with neuro-occupational medicine specialist Dr. Ray. [facility]. Admitted to the ER. The daughter gives the history that patient the previous test out of of increasing epigastric pain that became significant for divorce. Vomiting. No fever. He was noted to be jaundice with increased LFTs. Also ER showed a distended gallbladder with a large common bile duct. Review of systems: GEN.: Tired EYES: None HEENT: None NECK: None RESPIRATORY: None CARDIOVASCULAR: None GASTROINTESTINAL: None GENITOURINARY: None MUSCULOSKELETAL: None LYMPHATICS: None HEMATOLOGICAL: None PSYCHIATRY: forgetful NEUROLOGICAL: weakness on the right side Past medical history to include: Diabetes, hyperlipidemia, hypertension, obstructive sleep apnea, osteoarthritis, kidney stones, cognitive impairment, stroke hypertension with right-sided weakness, depression, seizure Social history: No history of smoking or alcohol. Lives with his . Physical examination: VITAL SIGNS: 98.5, 18, 18, 169/96, 97% on 2 L GENERAL: BMI 33.1, sitting at edge of the bed, EYES: Pupils equal. Conjunctiva normal. HEENT: External appearance of nose and ears normal, oral cavity grossly normal. NECK: JVD not raised; masses not palpable. HEART: First and second heart sounds are normal; no edema. LUNGS: Respiratory rate normal; clear to auscultation. ABDOMEN: Soft, upper abdomen tenderness no guarding rigidity, liver spleen not palpable, no masses palpable. PSYCH: answering simple questions NEUROLOGICAL: [Cranial nerves grossly intact; no facial asymmetry, power 4/5 on the right side LYMPHATICS: No lymph nodes palpable in the axilla and neck INVESTIGATIONS, reviewed in the clinical context: WBC 28.1 hemoglobin 13 platelets 249 potassium 4.5 bun 39 creatinine 2.43. Total bilirubin 3 AST 9148 ALT 510 alkaline phosphatase 270 Admitting labs: WBC 14.9 hemoglobin 14.4 potassium 4.4 bun 38 creatinine 2.05 AST 257 ALT 108 alkaline phosphatase 234. Total bilirubin 2.0 Coronavirus [PCR]-not detected Amylase 53 lipase 203 EKG tracing personally reviewed by me-normal sinus rhythm Ultrasound gallbladder: Possible internal echoes. Wall up in limit of normal. CBD 1.23 cm. Previous labs: Bun 37 creatinine 1.99 on every 03/17/2021 Assessment and plan: -Patient presents with 1 day of increasing epigastric pain. Found to have ob structive hepatitis picture. With increasing LFTs and total bilirubin.: Common bile duct dilated. Hyperechoic areas of the gallbladder on ultrasound. Consultation to GI and surgery. Patient will likely need a ERCP. 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 ray -Obesity BMI 33.1. For weight loss measures as an outpatient. Follow-up with PCP. 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 Follow Accu-Cheks closely. -Depression otherwise specified-On Cymbalta -Hyperlipidemia-On Lipitor -Chronic kidney disease stage III from hypertensive nephrosclerosis and diabetic nephropathy-Follow renal function Given the complexity and severity of patient's condition expect the patient to be in the hospital at least for 2 overnights Past Medical History Past Medical History: CVA/TIA, Diabetes Mellitus, Hyperlipidemia, Hypertension, Liver Disease, Renal Disease, Sleep Apnea/CPAP/BIPAP Additional Past Medical History / Comment(s): ARTHRITIS, kidney stones, possible dementia, kidney failure, neuropathy alia legs, carpal tunnel. CVA-jul 17 balance issues,speech impairment,vision impairment, receives injections to eyes r/t bleeding History of Any Multi-Drug Resistant Organisms: None Reported Past Surgical History: Back Surgery Additional Past Surgical History / Comment(s): MASS REMOVED FROM BACK OF HEAD, eye surgery, Past Anesthesia/Blood Transfusion Reactions: No Reported Reaction Past Psychological History: Depression Smoking Status: Never smoker Past Alcohol Use History: None Reported Past Drug Use History: None Reported - Past Family History Father Family Medical History: Diabetes Mellitus Mother Family Medical History: Diabetes Mellitus Brother(s) Family Medical History: Cancer Sister(s) Family Medical History: Cancer Medications and Allergies Home Medications Medication Instructions Recorded Confirmed Type DULoxetine HCL [Cymbalta] 30 mg PO HS 03/13/16 12/11/20 History Isosorbide Mononitrate ER [Imdur] 60 mg PO DAILY 03/13/16 12/11/20 History cloNIDine HCL [Catapres] 0.2 mg PO TID 03/13/16 12/11/20 History Albuterol Nebulized [Ventolin 2.5 mg INHALATION RT-QID PRN 07/08/20 12/11/20 History Nebulized] Losartan [Cozaar] 50 mg PO HS 07/08/20 12/11/20 History Omeprazole 20 mg PO DAILY 07/08/20 12/11/20 History Aspirin 81 mg PO DAILY #30 chewable 07/11/20 12/11/20 Rx Clopidogrel [Plavix] 75 mg PO DAILY #30 tab 07/11/20 12/11/20 Rx amLODIPine [Norvasc] 10 mg PO HS #30 tab 07/14/20 12/11/20 Rx Canagliflozin [Invokana] 300 mg PO DAILY 11/03/20 12/11/20 History Dulaglutide [Trulicity] 1.5 mg SQ SA 11/03/20 12/11/20 History INSULIN ASPART (NovoLOG) [NovoLOG See Protocol SQ AC-TID PRN 11/03/20 12/11/20 History (formulary)] Atorvastatin [Lipitor] 80 mg PO HS #30 tab 11/05/20 12/11/20 Rx Cholecalciferol [Vitamin D3 (25 50 mcg PO DAILY 12/11/20 12/11/20 History Mcg = 1000 Iu)] Ergocalciferol (Vitamin D2) 1,250 mcg PO FR 12/11/20 12/11/20 History [Drisdol (50,000 Iu)] Furosemide [Lasix] 40 mg PO BID 12/11/20 12/11/20 History INSULIN ASPART (NovoLOG) [NovoLOG 5 unit SQ BID@0900,1200 12/11/20 12/11/20 History (formulary)] INSULIN ASPART (NovoLOG) [NovoLOG 12 unit SQ W/SUPPER 12/11/20 12/11/20 History (formulary)] Insulin Glargine [Lantus] 36 unit SQ DAILY 12/11/20 12/11/20 History [place]-3 Fatty Acids/Fish Oil [Fish 1 cap PO DAILY 12/11/20 12/11/20 History Oil 1,000 mg Softgel] levETIRAcetam [Keppra] 500 mg PO BID 12/11/20 12/11/20 History Allergies Allergy/AdvReac Type Severity Reaction Status Date / Time No Known Allergies Allergy Verified 11/03/20 11:27 Physical Exam Vitals: Vital Signs Temp Pulse Pulse Resp BP BP Pulse Ox 12/12/20 07:30 98.4 F 77 20 124/64 95 12/12/20 02:00 98.6 F 18 133/65 94 L 12/12/20 01:27 83 18 12/11/20 22:02 98.0 F 100 18 140/70 97 12/11/20 21:39 98.8 F 95 17 123/64 95 12/11/20 20:58 108 H 16 127/66 94 L 03/16/21 18:16 112 H 20 169/96 97 12/11/20 17:20 98.5 F 108 H 18 179/84 99 Intake and Output 12/11/20 12/12/20 12/12/20 22:59 06:59 14:59 Intake Total 600 600 Balance 600 600 Intake: Intake, IV Titration 600 600 Amount Sodium Chloride 0.9% 1, 600 600 000 ml @ 75 mls/hr IV . [id number] [facility] Rx#:[id number] Other: Voiding Method Bedside Commode Diaper Incontinent # Voids 1 2 Weight 98.883 kg Results CBC & Chem 7: 12/12/20 04:55 12/12/20 04:55 Labs: Abnormal Lab Results - Last 24 Hours (Table) 12/11/20 12/11/20 12/11/20 Range/Units 17:38 17:38 17:38 WBC 14.9 H (3.8-10.6) k/uL RBC (4.30-5.90) m/uL Neutrophils # 13.8 H (1.3-7.7) k/uL Lymphocytes # 0.6 L (1.0-4.8) k/uL Monocytes # (0-1.0) k/uL APTT 21.0 L (22.0-30.0) sec Sodium (137-145) mmol/L Carbon Dioxide 20 L (22-30) mmol/L BUN 38 H (9-20) mg/dL Creatinine 2.05 H (0.66-1.25) mg/dL Glucose 224 H (74-99) mg/dL POC Glucose (mg/dL) (75-99) mg/dL Total Bilirubin 2.0 H (0.2-1.3) mg/dL AST 257 H (17-59) U/L ALT 108 H (4-49) U/L Alkaline Phosphatase 234 H (38-126) U/L Total Protein (6.3-8.2) g/dL Albumin (3.5-5.0) g/dL 12/12/20 12/12/20 12/12/20 Range/Units 04:55 04:55 07:36 WBC 28.1 H (3.8-10.6) k/uL RBC 4.24 L (4.30-5.90) m/uL Neutrophils # 25.7 H (1.3-7.7) k/uL Lymphocytes # 0.8 L (1.0-4.8) k/uL Monocytes # 1.3 H (0-1.0) k/uL APTT (22.0-30.0) sec Sodium 136 L (137-145) mmol/L Carbon Dioxide (22-30) mmol/L BUN 39 H (9-20) mg/dL Creatinine 2.43 H (0.66-1.25) mg/dL Glucose 229 H (74-99) mg/dL POC Glucose (mg/dL) 207 H (75-99) mg/dL Total Bilirubin 3.0 H (0.2-1.3) mg/dL AST 914 H (17-59) U/L ALT 510 H (4-49) U/L Alkaline Phosphatase 270 H (38-126) U/L Total Protein 6.0 L (6.3-8.2) g/dL Albumin 3.3 L (3.5-5.0) g/dL Thrombosis Risk Factor Assmnt - Choose All That Apply Any of the Below Risk Factors Present?: Yes Each Factor Represents 1 point: Obesity (BMI >25) Other Risk Factors: Yes Each Risk Factor Represents 2 Points: Age 61-74 years Thrombosis Risk Factor Assessment Total Risk Factor Score: 3 Thrombosis Risk Factor Assessment Level: Moderate Risk
[2020-12-13] MEDS: PIPERACILLIN-TAZOBACTAM 3.375 GM in SODIUM CHLORIDE 0.9% 100 ML IVPB SCH ×3 (02:36→17:52)
[2020-12-13 07:17] LABS: Glucose,Whole Blood 78 mg/dL (75-99)
[2020-12-13] MEDS: INSULIN ASPART (NovoLOG) 100 UNIT/ML VIAL SQ SCH ×4 (07:29→20:50)
[2020-12-13] MEDS: SODIUM CHLORIDE 0.9% 1,000 ML IV SCH (07:40)
[2020-12-13] MEDS: levETIRAcetam 500 MG TAB PO SCH ×2 (07:40→20:50)
[2020-12-13] MEDS: cloNIDine HCL 0.2 MG TAB PO SCH ×3 (07:40→20:50)
[2020-12-13] MEDS: ISOSORBIDE MONONITRATE ER 60 MG TAB.ER.24H PO SCH ×2 (07:40→08:30)
[2020-12-13] MEDS: PANTOPRAZOLE 40 MG TABLET PO SCH (07:40)
[2020-12-13 08:12] LABS: Glucose,Whole Blood 98 mg/dL (75-99)
[2020-12-13] MEDS: INSULIN DETEMIR (LEVEMIR) 100 UNIT/ML SYR SQ SCH (09:08)
[2020-12-13] MEDS: PANTOPRAZOLE 40 MG/10 ML VIAL IV SCH (09:16)
[2020-12-13 10:35] LABS: Basophils % (A) 0 %; Eosinophils % (A) 0 %; HCT 38.7 % (39.0-53.0); HGB 12.5 gm/dL (13.0-17.5); Lymphocytes # (A) 0.8 k/uL (1.0-4.8); Lymphocytes % (A) 7 %; MCH 30.6 pg (25.0-35.0); MCHC 32.2 g/dL (31.0-37.0); Mean Platelet Volume 8.5; Monocytes # (A) 0.7 k/uL (0-1.0); Monocytes % (A) 6 %; Neutrophils # (A) 9.3 k/uL (1.3-7.7); Neutrophils % (A) 85 %; Platelet Count 205 k/uL (150-450); RBC 4.07 m/uL (4.30-5.90); WBC 10.9 k/uL (3.8-10.6)
[2020-12-13 10:46] LABS: ALT 282 U/L (4-49); AST 253 U/L (17-59); African American GFR (CKD) 32 (>60 ml/min/1.73 sqM); Albumin 3.1 g/dL (3.5-5.0); Albumin/Globulin Ratio 1.1; Alkaline Phosphatase 277 U/L (38-126); Anion Gap 11 mmol/L; Blood Urea Nitrogen 30 mg/dL (9-20); Calcium 8.6 mg/dL (8.4-10.2); Carbon Dioxide 21 mmol/L (22-30); Chloride 106 mmol/L (98-107); Globulin 2.7 g/dL; Glucose 218 mg/dL (74-99); Non-African American GFR(CKD) 27 (>60 ml/min/1.73 sqM); Sodium 138 mmol/L (137-145); Total Bilirubin 2.2 mg/dL (0.2-1.3); Total Protein 5.8 g/dL (6.3-8.2)
[2020-12-13 12:00] LABS: Glucose,Whole Blood 199 mg/dL (75-99)
--- NOTE | 2020-12-13 12:19 | P.PN ---
Subjective Progress Note Date: 12/13/20 Principal diagnosis: Epigastric pain, Elevated LFTs, hyperbilirubinemia This is a pleasant 75-year-old male patient who presented to the emergency room yesterday complaining of severe epigastric pain and lower chest pain that progressively got worse. Yesterday his labs were noted to have elevated LFTs and jaundice with a bilirubin of 3, AST 914 and ALT 510, alkaline phosphatase 210. Admission ultrasound showed distended gallbladder with a large common bile duct but no significant dilation of the intrahepatics. There was possible internal echoes noted but no definite gallstones identified. The patient also had an elevated WBC of 28,000. Yesterday he underwent an ERCP with findings that included a dilated common bile duct with 2 small faint filling defects in the distal common bile duct status post CBD stent placement. Pancreatic duct not cannulated. Today the patient is denying any abdominal pain, nausea, or vomiting. Today WBC 10.9, total bilirubin 2.2, alkaline phosphatase 277, AST 253, ALT 282. Objective - Vital Signs Vital signs: Vital Signs Temp 97.5 F L 12/13/20 07:00 Pulse 89 12/13/20 07:00 Resp 20 12/13/20 07:00 BP 157/79 12/13/20 07:00 Pulse Ox 98 12/13/20 07:00 Intake & Output 12/12/20 12/13/20 12/13/20 18:59 06:59 18:59 Intake Total 300 600 Balance 300 600 Intake: IV 300 Intake, IV Titration 600 Amount Sodium Chloride 0.9% 1, 600 000 ml @ 75 mls/hr IV . [id number] [facility] Rx#:[id number] Other: Voiding Method Bedside Commode Bedside Commode Diaper Diaper Incontinent Incontinent # Voids 1 1 1 - Exam General appearance: The patient is alert, oriented, appears in no acute distress. Obese. HET: Head is normocephalic and atraumatic. Conjunctiva pink. Sclera anicteric. Neck: Supple without lymphadenopathy. Abdomen: Soft, nontender, nondistended with bowel sounds. No guarding or rigidity. Extremities: Normal skin color and turgor. No pedal edema Skin: No rashes, no jaundice Neurological: No focal deficits. Alert and oriented 3. - Labs CBC & Chem 7: 12/13/20 09:44 12/13/20 09:44 Labs: Abnormal Lab Results - Last 24 Hours (Table) 12/12/20 12/12/20 12/12/20 Range/Units 12:06 15:44 17:57 POC Glucose (mg/dL) 143 H 120 H 132 H (75-99) mg/dL 12/12/20 Range/Units 20:57 POC Glucose (mg/dL) 144 H (75-99) mg/dL Assessment and Plan (1) Elevated LFTs Narrative/Plan: Is a patient who presented to the hospital with acute onset of severe epigastric pain and lower sternal chest pain that started yesterday afternoon was noted to have elevated LFTs and mild jaundice. Ultrasound showed possible small internal echoes in the gallbladder, but no definite stones noted and dilated common bile duct. Biochemical picture suspicious for ascending cholangitis possibly related to CBD stones. Current Visit: Yes Status: Acute Code(s): R79.89 - OTHER SPECIFIED ABNORMAL FINDINGS OF BLOOD CHEMISTRY SNOMED Code(s): 802314175 (2) Hyperbilirubinemia Current Visit: Yes Status: Acute Code(s): E80.6 - OTHER DISORDERS OF BILIRUBIN METABOLISM SNOMED Code(s): 78243310 (3) Common bile duct dilation Current Visit: Yes Status: Acute Code(s): K83.8 - OTHER SPECIFIED DISEASES OF BILIARY TRACT SNOMED Code(s): 636932763 (4) Hypertension Current Visit: No Status: Acute Code(s): I10 - ESSENTIAL (PRIMARY) HYPERTENSION SNOMED Code(s): 54004291 Plan: 1. Supportive care 2. May advance to full liquid diet 3. Daily CBC, CMP 4. Patient is status post ERCP with stent placement. Plan is to repeat ERCP in 3-4 days for stone extraction 5. Surgery is on consult, they are proceeding with cholecystectomy tomorrow Thank you for this consult, we will continue to follow Dr. Max Fischer I agree with the dictator's note, documented as a scribe by Destiney Cook.
--- NOTE | 2020-12-13 15:44 | P.PN ---
Subjective Progress Note Date: 12/13/20 CHIEF COMPLAINT: Abdominal pain HISTORY OF PRESENT ILLNESS: Patient has had improvement in his epigastric abdominal pain. Denies any nausea or vomiting. He is status post ERCP with stent did show 2 small areas of filling the defects in the distal common bile duct. GI services recommending repeat ERCP in 3-4 days. White count has come down to 10.9 from 28 hemoglobin 12.5 creatinine 2.28 total bili 2.2 AST to 53 ALT 282 alk phos 277 LFTs are trending downwards PHYSICAL EXAM: VITAL SIGNS: Reviewed. GENERAL: Well-developed in no acute distress. HEENT: No sclera icterus. Extraocular movements grossly intact. Moist buccal mucosa. Head is atraumatic, normocephalic. ABDOMEN: Soft. Nondistended. Mild Epigastric tenderness NEUROLOGIC: Alert and oriented. Cranial nerves II through XII grossly intact. ASSESSMENT: 1. Epigastric Abdominal pain with abdominal ultrasound showing a large common bile duct. No significant dilation of the intrahepatic bile ducts. This could relate to some chronic gallbladder dysfunction. No definite gallstones seen 2. Ascending cholangitis 3. Elevated LFTs and total bilirubin 4. Possible Choledocholithiasis PLAN: -Patient scheduled for laparoscopic cholecystectomy tomorrow, 12/14/[address] Lemus -Keep patient nothing by mouth after midnight -Continue antibiotics -Continue IV fluids Physician Cream Separator Operator note has been reviewed by physician. Signing provider agrees with the documented findings, assessment, and plan of care. Objective - Vital Signs Vital signs: Vital Signs Temp 97.5 F L 12/13/20 07:00 Pulse 89 12/13/20 07:40 Resp 20 12/13/20 07:00 BP 157/79 12/13/20 07:00 Pulse Ox 98 12/13/20 07:00 Intake & Output 12/12/20 12/13/20 12/13/20 18:59 06:59 18:59 Intake Total 300 600 400 Balance 300 600 400 Intake: IV 300 Intake, IV Titration 600 Amount Sodium Chloride 0.9% 1, 600 000 ml @ 75 mls/hr IV . [id number] [facility] Rx#:[id number] Oral 400 Other: Voiding Method Bedside Commode Bedside Commode Bedside Commode Diaper Diaper Diaper Incontinent Incontinent Incontinent # Voids 1 1 1 - Labs CBC & Chem 7: 12/13/20 09:44 12/13/20 09:44 Labs: Abnormal Lab Results - Last 24 Hours (Table) 12/12/20 12/12/20 12/12/20 Range/Units 15:44 17:57 20:57 WBC (3.8-10.6) k/uL RBC (4.30-5.90) m/uL Hgb (13.0-17.5) gm/dL Hct (39.0-53.0) % Neutrophils # (1.3-7.7) k/uL Lymphocytes # (1.0-4.8) k/uL Carbon Dioxide (22-30) mmol/L BUN (9-20) mg/dL Creatinine (0.66-1.25) mg/dL Glucose (74-99) mg/dL POC Glucose (mg/dL) 120 H 132 H 144 H (75-99) mg/dL Total Bilirubin (0.2-1.3) mg/dL AST (17-59) U/L ALT (4-49) U/L Alkaline Phosphatase (38-126) U/L Total Protein (6.3-8.2) g/dL Albumin (3.5-5.0) g/dL 12/13/20 12/13/20 12/13/20 Range/Units 09:44 09:44 11:58 WBC 10.9 H (3.8-10.6) k/uL RBC 4.07 L (4.30-5.90) m/uL Hgb 12.5 L (13.0-17.5) gm/dL Hct 38.7 L (39.0-53.0) % Neutrophils # 9.3 H (1.3-7.7) k/uL Lymphocytes # 0.8 L (1.0-4.8) k/uL Carbon Dioxide 21 L (22-30) mmol/L BUN 30 H (9-20) mg/dL Creatinine 2.28 H (0.66-1.25) mg/dL Glucose 218 H (74-99) mg/dL POC Glucose (mg/dL) 199 H (75-99) mg/dL Total Bilirubin 2.2 H (0.2-1.3) mg/dL AST 253 H (17-59) U/L ALT 282 H (4-49) U/L Alkaline Phosphatase 277 H (38-126) U/L Total Protein 5.8 L (6.3-8.2) g/dL Albumin 3.1 L (3.5-5.0) g/dL
[2020-12-13 17:07] LABS: Glucose,Whole Blood 202 mg/dL (75-99)
[2020-12-13 20:22] LABS: Glucose,Whole Blood 193 mg/dL (75-99)
[2020-12-13] MEDS: LOSARTAN 50 MG TAB PO SCH (20:50)
[2020-12-13] MEDS: amLODIPine 10 MG TAB PO SCH (20:50)
[2020-12-13] MEDS: DULoxetine HCL 30 MG CAPSULE.DR PO SCH (20:50)
--- NOTE | 2020-12-13 23:48 | P.PN ---
Progress Note - Text Progress Note Date: 12/13/20 Chief Complaint: Abdominal pain History of presenting complaint: This is a 75-year-old patient of Dr. Santana. Chronic stable medical conditions include hyperlipidemia, diabetes, obstructive sleep apnea, osteoarthritis, kidney stones, cognitive impairment-dementia. 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 KARISHMA-did not show any embolic source/Preserved LV function. Normal valves. MRI of the brain did show acute ischemic change within the left parietal occipital watershed area. Additional focal area of acute ischemic change in the right frontal lobe. MRA of the brain was unremarkable. 2-D echocardiogram showed EF of 55%. Normal LV function. Carotid Doppler was unremarkable. residual right-sided weakness.- assistance with walking. Patient has a loop recorder placed because multiple episodes of decreased responsiveness since July. This time patient's presents with an episode as described by his daughter to the neurologist Dr. Hall: "She stated, today where he complains of a headache, he lost his vision at 10am (could not see out of left eye) then non-responsiveness. His episode of not respoding lasted 5 minutes. No jerking of any extremities. No foaming around the mouth. No urinary or bowel incontinence. He has a similiar episode this past lasting 5 minutes but refused to seek medical attention. He usually have these episode in the morning. After these episodes the feels generalized fatigue and going to sleep for 1 hour. Prior to the episode he complains of headache. ". Patient himself is not a good historian. Patient is similar episode a week ago. On November 03 admitted with a diagnoses of seizure. Found to have a stenosis in the carotid siphon. Supposed to follow-up with neuro-passport application examiner Dr. Ray. Started on Keppra. Admitted to the ER. The daughter gives the history that patient the previous test out of of increasing epigastric pain that became significant worse Vomiting. No fever. He was noted to be jaundice with increased LFTs. Also ER showed a distended gallbladder with a large common bile duct. Underwent ERCP by Dr. Max Fischer. CBD stent was placed. Today-sitting at the age of the bed. Much improved pain. No nausea vomiting. Review of systems: Was done for constitutional, cardiovascular, GI, pulmonary. relevant finding as above Active Medications Albuterol Sulfate (Albuterol Nebulized 2.5 Mg/3 Ml) 2.5 mg INHALATION RT-QID PRN PRN Reason: Shortness Of Breath Amlodipine Besylate (Amlodipine 10 Mg Tab) 10 mg PO [facility] Last Admin: 12/13/20 20:50 Dose: 10 mg Documented by: Clonidine (Clonidine Hcl 0.2 Mg Tab) 0.2 mg PO TID [facility] Last Admin: 12/13/20 20:50 Dose: 0.2 mg Documented by: Duloxetine HCl (Duloxetine Hcl 30 Mg Capsule.Dr) 30 mg PO [facility] Last Admin: 12/13/20 20:50 Dose: 30 mg Documented by: Hydromorphone HCl (Hydromorphone 0.5 Mg/0.5 Ml Syringe) 0.5 mg IVP Q3HR PRN PRN Reason: Moderate Pain Sodium Chloride (Saline 0.9%) 1,000 mls @ 75 mls/hr IV .[id number] [facility] Last Admin: 12/13/20 07:40 Dose: 75 mls/hr Documented by: Piperacillin Sod/Tazobactam (Sod 3.375 gm/ Sodium Chloride) 100 mls @ 25 mls/hr IVPB Q8H [facility] Last Admin: 12/13/20 17:52 Dose: 25 mls/hr Documented by: Insulin Aspart (Insulin Aspart (Novolog) 100 Unit/Ml Vial) 0 unit SQ ACHS [facility]; Protocol Last Admin: 12/13/20 20:50 Dose: 2 unit Documented by: Insulin Detemir (Insulin Detemir (Levemir) 100 Unit/Ml Syr) 28 unit SQ DAILY [facility] Last Admin: 12/13/20 09:08 Dose: 28 unit Documented by: Isosorbide Mononitrate (Isosorbide Mononitrate Er 60 Mg Tab.Er.24h) 60 mg PO DAILY [facility] Last Admin: 12/13/20 07:40 Dose: 60 mg Documented by: Levetiracetam (Levetiracetam 500 Mg Tab) 500 mg PO BID [facility] Last Admin: 12/13/20 20:50 Dose: 500 mg Documented by: Losartan Potassium (Losartan 50 Mg Tab) 50 mg PO [facility] Last Admin: 12/13/20 20:50 Dose: 50 mg Documented by: Naloxone HCl (Naloxone 0.4 Mg/Ml 1 Ml Vial) 0.2 mg IV Q2M PRN PRN Reason: Opioid Reversal Ondansetron HCl (Ondansetron 4 Mg/2 Ml Vial) 4 mg IVP Q8HR PRN PRN Reason: Nausea And Vomiting Pantoprazole Sodium (Pantoprazole 40 Mg Tablet) 40 mg PO DAILY [facility] Last Admin: 12/13/20 07:40 Dose: 40 mg Documented by: Past medical history to include: Diabetes, hyperlipidemia, hypertension, obstructive sleep apnea, osteoarthritis, kidney stones, cognitive impairment, stroke hypertension with right-sided weakness, depression, seizure Social history: No history of smoking or alcohol. Lives with his . Physical examination: VITAL SIGNS: 97.4, 79, 18, and 60/76, 97% room air GENERAL: BMI 33.1, sitting at edge of the bed, EYES: Pupils equal. Conjunctiva normal. HEENT: External appearance of nose and ears normal, oral cavity grossly normal. NECK: JVD not raised; masses not palpable. HEART: First and second heart sounds are normal; no edema. LUNGS: Respiratory rate normal; clear to auscultation. ABDOMEN: Soft, decreased abdomen tenderness, no guarding rigidity, liver spleen not palpable, no masses palpable. PSYCH: answering simple questions INVESTIGATIONS, reviewed in the clinical context: December 13: WBC 10.9 hemoglobin 12.5 potassium 4 creatinine 2.28 WBC 28.1 hemoglobin 13 platelets 249 potassium 4.5 bun 39 creatinine 2.43. Total bilirubin 3 AST 9148 ALT 510 alkaline phosphatase 270 Admitting labs: WBC 14.9 hemoglobin 14.4 potassium 4.4 bun 38 creatinine 2.05 AST 257 ALT 108 alkaline phosphatase 234. Total bilirubin 2.0 Coronavirus [PCR]-not detected Amylase 53 lipase 203 EKG tracing personally reviewed by me-normal sinus rhythm Ultrasound gallbladder: Possible internal echoes. Wall up in limit of normal. CBD 1.23 cm. Previous labs: Bun 37 creatinine 1.99 on every 03/17/2021 Assessment and plan: -Patient presents with 1 day of increasing epigastric pain. Found to have obstructive hepatitis picture. With increasing LFTs and total bilirubin.: Common bile duct dilated. Hyperechoic areas of the gallbladder on ultrasound. ERCP: CBD stented. Surgeries planning for cholecystectomy -Seizure disorder, on antiepileptic drugs -essential hypertension, on Cozaar, Catapres, Norvasc - stroke in the left parieto-occipital area on 07/07/2020, on aspirin, Plavix -Possible significant stenosis in the left carotid siphon.-To follow-up with neuro-passport application examiner Dr. ray -Obesity BMI 33.1. For weight loss measures as an outpatient. Follow-up with PCP. 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 Follow Accu-Cheks closely. -Depression otherwise specified-On Cymbalta -Hyperlipidemia-On Lipitor -Chronic kidney disease stage III from hypertensive nephrosclerosis and diabetic nephropathy-Follow renal function Patient being scheduled for cholecystectomy by surgery. On IV fluids, IV Zosyn
[2020-12-14] MEDS: SODIUM CHLORIDE 0.9% 1,000 ML IV SCH ×2 (00:17→12:15)
[2020-12-14] MEDS: PIPERACILLIN-TAZOBACTAM 3.375 GM in SODIUM CHLORIDE 0.9% 100 ML IVPB SCH ×3 (01:29→19:10)
[2020-12-14 07:07] LABS: Basophils % (A) 0 %; Eosinophils # (A) 0.1 k/uL (0-0.7); Eosinophils % (A) 1 %; HCT 40.9 % (39.0-53.0); HGB 13.4 gm/dL (13.0-17.5); Lymphocytes # (A) 1.3 k/uL (1.0-4.8); Lymphocytes % (A) 16 %; MCH 30.5 pg (25.0-35.0); MCHC 32.8 g/dL (31.0-37.0); Mean Platelet Volume 7.8; Monocytes # (A) 0.6 k/uL (0-1.0); Monocytes % (A) 7 %; Neutrophils # (A) 6.1 k/uL (1.3-7.7); Neutrophils % (A) 74 %; Platelet Count 230 k/uL (150-450); RDW 13.7 % (11.5-15.5); WBC 8.2 k/uL (3.8-10.6)
[2020-12-14 07:16] LABS: Glucose,Whole Blood 82 mg/dL (75-99)
[2020-12-14 07:21] LABS: ALT 221 U/L (4-49); AST 125 U/L (17-59); African American GFR (CKD) 34 (>60 ml/min/1.73 sqM); Albumin 3.3 g/dL (3.5-5.0); Albumin/Globulin Ratio 1.1; Alkaline Phosphatase 279 U/L (38-126); Anion Gap 8 mmol/L; Blood Urea Nitrogen 22 mg/dL (9-20); Carbon Dioxide 24 mmol/L (22-30); Chloride 109 mmol/L (98-107); Globulin 2.9 g/dL; Glucose 88 mg/dL (74-99); Non-African American GFR(CKD) 29 (>60 ml/min/1.73 sqM); Potassium 3.9 mmol/L (3.5-5.1); Sodium 141 mmol/L (137-145); Total Bilirubin 1.2 mg/dL (0.2-1.3); Total Protein 6.2 g/dL (6.3-8.2)
[2020-12-14] MEDS: INSULIN ASPART (NovoLOG) 100 UNIT/ML VIAL SQ SCH ×4 (07:33→21:05)
[2020-12-14] MEDS ORDERED: HEPARIN SODIUM,PORCINE 5,000 UNIT/ML 1 ML VIAL ONE (08:20)
[2020-12-14] MEDS ORDERED: IV FLUID CONTINUATION 1,000 ML IV ONE (08:30)
[2020-12-14] MEDS ORDERED: DEXAMETHASONE SOD PHOSPHATE 4 MG/ML 1 ML VIAL IVP ONE (08:45)
[2020-12-14] MEDS ORDERED: ONDANSETRON 4 MG/2 ML VIAL IVP ONE (08:45)
[2020-12-14] MEDS ORDERED: BUPIVACAINE (PF) 0.25% 30 ML VIAL SQ ONE ×3 (09:03→09:50)
[2020-12-14] MEDS ORDERED: HEPARIN SODIUM,PORCINE 5,000 UNIT/ML 1 ML VIAL SQ ONE (09:10)
[2020-12-14] MEDS ORDERED: MIDAZOLAM 2 MG/2 ML VIAL ONE (09:17)
[2020-12-14] MEDS ORDERED: ROCURONIUM 10 MG/ML (5 ML VIAL) IV ONE (09:17)
[2020-12-14] MEDS ORDERED: NEOSTIGMINE 1 MG/ML 10 ML VIAL ONE (09:17)
[2020-12-14] MEDS ORDERED: GLYCOPYRROLATE 0.2 MG/ML 2 ML VIAL ONE (09:17)
[2020-12-14] MEDS ORDERED: SUCCINYLCHOLINE CHLORIDE 100 MG/5 ML SYR IV ONE (09:17)
[2020-12-14] MEDS ORDERED: LIDOCAINE 1% INJ 10MG/ML (20 ML MDV) ONE (09:17)
[2020-12-14] MEDS ORDERED: fentaNYL (PF) 50 MCG/ML 2 ML AMP ONE (09:17)
[2020-12-14] MEDS ORDERED: PROPOFOL 10 MG/ML 20 ML VIAL IV ONE (09:17)
[2020-12-14] MEDS ORDERED: LACTATED RINGERS 1,000 ML IV ONE (09:50)
--- NOTE | 2020-12-14 10:18 | P.OP ---
Date of Procedure: 12/14/20 Preoperative Diagnosis: Choledocholithiasis Postoperative Diagnosis: Choledocholithiasis Acute cholecystitis Procedure(s) Performed: Laparoscopic cholecystectomy Anesthesia: JAYLYN Surgeon: Ciro Lemus Estimated Blood Loss (ml): 10 Pathology: other (Gallbladder) Condition: stable Disposition: PACU Description of Procedure: The patient was placed on the operating table. The patient received a general endotracheal tube anesthesia. The patients abdomen was prepped and draped in the usual sterile fashion. Through an infraumbilical stab incision, the fascia of the anterior abdominal wall was grasped with a pair of Kochers and then the Veress needle was placed in the peritoneal cavity. Position of the Veress needle was confirmed with positive drop test. The abdomen was then insufflated. After adequate insufflation, the 10 mm trocar was placed in the pe ritoneal cavity. Following this the laparoscope was placed in the peritoneal cavity. The patient was placed in the head-up, right side up position and then a 5 mm trocar was placed in the right lateral and right subcostal position under direct visualization. A 8 mm trocar was placed in the epigastric position. The gallbladder was grasped in the fundus and infundibulum. Traction on the gallbladder was placed in the lateral and the cephalad positions. The triangle of Calot was visualized.. The cystic duct was bluntly dissected until the union of the cystic duct and common bile duct was seen. A critical view of safety was achieved. The cystic duct was then divided and sealed with the Harmonic scissors. A PDS Endoloop was then placed throughout the cystic duct stump. The cystic artery divided and sealed with the Harmonic scissors. The gallbladder was then removed from the liver bed using Harmonic scissors. The gallbladder was then extracted through the epigastric port site. Operative field was checked for any bleeding spots and Harmonic scissors was used to coagulate the liver bed. The abdomen was irrigated. The trocars were removed. The skin was closed using interrupted 3-0 Vicryl suture. Dermabond dressing were applied. The patient tolerated the procedure well.
[2020-12-14 10:30] LABS: Glucose,Whole Blood 118 mg/dL (75-99)
[2020-12-14] MEDS: INSULIN DETEMIR (LEVEMIR) 100 UNIT/ML SYR SQ SCH (11:34)
[2020-12-14] MEDS: cloNIDine HCL 0.2 MG TAB PO SCH ×3 (11:34→22:42)
[2020-12-14] MEDS: ISOSORBIDE MONONITRATE ER 60 MG TAB.ER.24H PO SCH (11:40)
[2020-12-14] MEDS: PANTOPRAZOLE 40 MG TABLET PO SCH (11:40)
[2020-12-14] MEDS: levETIRAcetam 500 MG TAB PO SCH ×2 (11:40→21:05)
[2020-12-14 12:16] LABS: Glucose,Whole Blood 154 mg/dL (75-99)
[2020-12-14] MEDS ORDERED: PANTOPRAZOLE 40 MG TABLET PO ONE (13:00)
[2020-12-14] MEDS ORDERED: levETIRAcetam 500 MG TAB PO ONE (13:00)
[2020-12-14] MEDS ORDERED: ISOSORBIDE MONONITRATE ER 60 MG TAB.ER.24H PO ONE (13:00)
[2020-12-14] MEDS ORDERED: INSULIN DETEMIR (LEVEMIR) 100 UNIT/ML SYR SQ ONE (13:00)
--- NOTE | 2020-12-14 13:29 | P.PN ---
Subjective Progress Note Date: 12/14/20 Principal diagnosis: Epigastric pain, Elevated LFTs, hyperbilirubinemia This is a pleasant 75-year-old male patient who presented to the emergency room yesterday complaining of severe epigastric pain and lower chest pain that progressively got worse. Yesterday his labs were noted to have elevated LFTs and jaundice with a bilirubin of 3, AST 914 and ALT 510, alkaline phosphatase 210. Admission ultrasound showed distended gallbladder with a large common bile duct but no significant dilation of the intrahepatics. There was possible internal echoes noted but no definite gallstones identified. The patient also had an elevated WBC of 28,000. Yesterday he underwent an ERCP with findings that included a dilated common bile duct with 2 small faint filling defects in the distal common bile duct status post CBD stent placement. Pancreatic duct not cannulated. The patient is seen and examined. He is status post cholecystectomy this morning with Dr. Lemus. Liver enzymes continue to trend down. Objective - Vital Signs Vital signs: Vital Signs Temp 97.6 F 12/14/20 10:19 Pulse 80 12/14/20 11:16 Resp 16 12/14/20 11:16 BP 166/78 12/14/20 11:16 Pulse Ox 99 12/14/20 11:00 Intake & Output 12/13/20 12/14/20 12/14/20 18:59 06:59 18:59 Intake Total 400 800 Output Total 10 Balance 400 790 Intake: IV 800 Oral 400 Output: Estimated Blood Loss 10 Other: Voiding Method Bedside Commode Bedside Commode Diaper Diaper Incontinent Incontinent # Voids 1 5 - Exam General appearance: The patient is alert, oriented, appears in no acute distress. Obese. HET: Head is normocephalic and atraumatic. Conjunctiva pink. Sclera anicteric. Neck: Supple without lymphadenopathy. Abdomen: Soft, tender, surgical incisions clean dry and intact, nondistended with bowel sounds. No guarding or rigidity. Extremities: Normal skin color and turgor. No pedal edema Skin: No rashes, no jaundice Neurological: No focal deficits. Alert and oriented 3. - Labs CBC & Chem 7: 12/14/20 06:29 12/14/20 06:29 Labs: Abnormal Lab Results - Last 24 Hours (Table) 12/13/20 12/13/20 12/14/20 Range/Units 17:06 20:21 06:29 Chloride 109 H (98-107) mmol/L BUN 22 H (9-20) mg/dL Creatinine 2.15 H (0.66-1.25) mg/dL POC Glucose (mg/dL) 202 H 193 H (75-99) mg/dL AST 125 H (17-59) U/L ALT 221 H (4-49) U/L Alkaline Phosphatase 279 H (38-126) U/L Total Protein 6.2 L (6.3-8.2) g/dL Albumin 3.3 L (3.5-5.0) g/dL 12/14/20 12/14/20 Range/Units 10:28 12:14 Chloride (98-107) mmol/L BUN (9-20) mg/dL Creatinine (0.66-1.25) mg/dL POC Glucose (mg/dL) 118 H 154 H (75-99) mg/dL AST (17-59) U/L ALT (4-49) U/L Alkaline Phosphatase (38-126) U/L Total Protein (6.3-8.2) g/dL Albumin (3.5-5.0) g/dL Assessment and Plan (1) Elevated LFTs Narrative/Plan: Is a patient who presented to the hospital with acute onset of severe epigastric pain and lower sternal chest pain that started yesterday afternoon was noted to have elevated LFTs and mild jaundice. Ultrasound showed possible small internal echoes in the gallbladder, but no definite stones noted and dilated common bile duct. Biochemical picture suspicious for ascending cholangitis possibly related to CBD stones. Current Visit: Yes Status: Acute Code(s): R79.89 - OTHER SPECIFIED ABNORMAL FINDINGS OF BLOOD CHEMISTRY SNOMED Code(s): 178713187 (2) Hyperbilirubinemia Current Visit: Yes Status: Acute Code(s): E80.6 - OTHER DISORDERS OF BILIRUBIN METABOLISM SNOMED Code(s): 47705538 (3) Common bile duct dilation Current Visit: Yes Status: Acute Code(s): K83.8 - OTHER SPECIFIED DISEASES OF BILIARY TRACT SNOMED Code(s): 851100954 (4) Hypertension Current Visit: No Status: Acute Code(s): I10 - ESSENTIAL (PRIMARY) HYPERTENSION SNOMED Code(s): 82874975 Plan: 1. Supportive care 2. Diet per surgical services 3. Daily CBC, CMP 4. Patient is status post ERCP with stent placement. Plan is to repeat ERCP in 2-3 days for stone extraction 5. Patient is status post cholecystectomy Thank you for this consult, we will continue to follow Dr. Max Fischer I agree with the dictator's note, documented as a scribe by Destiney Cook.
[2020-12-14 17:25] LABS: Glucose,Whole Blood 178 mg/dL (75-99)
[2020-12-14 20:51] LABS: Glucose,Whole Blood 311 mg/dL (75-99)
[2020-12-14] MEDS: amLODIPine 10 MG TAB PO SCH (21:05)
[2020-12-14] MEDS: LOSARTAN 50 MG TAB PO SCH (21:05)
[2020-12-14] MEDS: DULoxetine HCL 30 MG CAPSULE.DR PO SCH (21:05)
--- NOTE | 2020-12-14 22:55 | P.PN ---
Progress Note - Text Progress Note Date: 12/14/20 Chief Complaint: Abdominal pain History of presenting complaint: This is a 75-year-old patient of Dr. Santana. Chronic stable medical conditions include hyperlipidemia, diabetes, obstructive sleep apnea, osteoarthritis, kidney stones, cognitive impairment-dementia. 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 KARISHMA-did not show any embolic source/Preserved LV function. Normal valves. MRI of the brain did show acute ischemic change within the left parietal occipital watershed area. Additional focal area of acute ischemic change in the right frontal lobe. MRA of the brain was unremarkable. 2-D echocardiogram showed EF of 55%. Normal LV function. Carotid Doppler was unremarkable. residual right-sided weakness.- assistance with walking. Patient has a loop recorder placed because multiple episodes of decreased responsiveness since July. This time patient's presents with an episode as described by his daughter to the neurologist Dr. Hall: "She stated, today where he complains of a headache, he lost his vision at 10am (could not see out of left eye) then non-responsiveness. His episode of not respoding lasted 5 minutes. No jerking of any extremities. No foaming around the mouth. No urinary or bowel incontinence. He has a similiar episode this past lasting 5 minutes but refused to seek medical attention. He usually have these episode in the morning. After these episodes the feels generalized fatigue and going to sleep for 1 hour. Prior to the episode he complains of headache. ". Patient himself is not a good historian. Patient is similar episode a week ago. On November 03 admitted with a diagnoses of seizure. Found to have a stenosis in the carotid siphon. Supposed to follow-up with neuro-hand plug shaper Dr. Ray. Started on Keppra. Admitted to the ER. The daughter gives the history that patient the previous test out of of increasing epigastric pain that became significant worse Vomiting. No fever. He was noted to be jaundice with increased LFTs. Also ER showed a distended gallbladder with a large common bile duct. Underwent ERCP by Dr. Max Fischer. CBD stent was placed. December 14: Cholecystectomy Today-Reclining in bed. Daughter the bedside. Feeling better. Review of systems: Was done for constitutional, cardiovascular, GI, pulmonary. relevant finding as above Active Medications Albuterol Sulfate (Albuterol Nebulized 2.5 Mg/3 Ml) 2.5 mg INHALATION RT-QID PRN PRN Reason: Shortness Of Breath Amlodipine Besylate (Amlodipine 10 Mg Tab) 10 mg PO [facility] Last Admin: 12/14/20 21:05 Dose: 10 mg Documented by: Clonidine (Clonidine Hcl 0.2 Mg Tab) 0.2 mg PO TID [facility] Last Admin: 12/14/20 22:42 Dose: 0.2 mg Documented by: Duloxetine HCl (Duloxetine Hcl 30 Mg Capsule.Dr) 30 mg PO [facility] Last Admin: 12/14/20 21:05 Dose: 30 mg Documented by: Enoxaparin Sodium (Enoxaparin 30 Mg/0.3 Ml Syringe) 30 mg SQ DAILY [facility] Hydromorphone HCl (Hydromorphone 0.5 Mg/0.5 Ml Syringe) 0.5 mg IVP Q3HR PRN PRN Reason: Moderate Pain Sodium Chloride (Saline 0.9%) 1,000 mls @ 75 mls/hr IV .[id number] [facility] Last Admin: 12/14/20 12:15 Dose: 75 mls/hr Documented by: Piperacillin Sod/Tazobactam (Sod 3.375 gm/ Sodium Chloride) 100 mls @ 25 mls/hr IVPB Q8H [facility] Last Admin: 12/14/20 19:10 Dose: 25 mls/hr Documented by: Insulin Aspart (Insulin Aspart (Novolog) 100 Unit/Ml Vial) 0 unit SQ ACHS [facility]; Protocol Last Admin: 12/14/20 21:05 Dose: 5 unit Documented by: Insulin Detemir (Insulin Detemir (Levemir) 100 Unit/Ml Syr) 28 unit SQ DAILY [facility] Last Admin: 12/14/20 11:34 Dose: Not Given Documented by: Isosorbide Mononitrate (Isosorbide Mononitrate Er 60 Mg Tab.Er.24h) 60 mg PO DAILY [facility] Last Admin: 12/14/20 11:40 Dose: Not Given Documented by: Levetiracetam (Levetiracetam 500 Mg Tab) 500 mg PO BID [facility] Last Admin: 12/14/20 21:05 Dose: 500 mg Documented by: Losartan Potassium (Losartan 50 Mg Tab) 50 mg PO [facility] Last Admin: 12/14/20 21:05 Dose: 50 mg Documented by: Naloxone HCl (Naloxone 0.4 Mg/Ml 1 Ml Vial) 0.2 mg IV Q2M PRN PRN Reason: Opioid Reversal Ondansetron HCl (Ondansetron 4 Mg/2 Ml Vial) 4 mg IVP Q8HR PRN PRN Reason: Nausea And Vomiting Pantoprazole Sodium (Pantoprazole 40 Mg Tablet) 40 mg PO DAILY [facility] Last Admin: 12/14/20 11:40 Dose: Not Given Documented by: Past medical history to include: Diabetes, hyperlipidemia, hypertension, obstructive sleep apnea, osteoarthritis, kidney stones, cognitive impairment, stroke hypertension with right-sided weakness, depression, seizure Social history: No history of smoking or alcohol. Lives with his . Physical examination: VITAL SIGNS: 98, 69, 18, 160/73, 97% on room air GENERAL: Laying in bed, awake EYES: Pupils equal. Conjunctiva normal. HEENT: External appearance of nose and ears normal, oral cavity grossly normal. NECK: JVD not raised; masses not palpable. HEART: First and second heart sounds are normal; no edema. LUNGS: Respiratory rate normal; clear to auscultation. ABDOMEN: Soft, mild abdomen tenderness, no guarding rigidity, liver spleen not palpable, no masses palpable. PSYCH: answering simple questions INVESTIGATIONS, reviewed in the clinical context: December 14: WBC 8.2 hemoglobin 13.4 creatinine 2.15 AST 125 ALT 221 December 13: WBC 10.9 hemoglobin 12.5 potassium 4 creatinine 2.28 WBC 28.1 hemoglobin 13 platelets 249 potassium 4.5 bun 39 creatinine 2.43. Total bilirubin 3 AST 9148 ALT 510 alkaline phosphatase 270 Admitting labs: WBC 14.9 hemoglobin 14.4 potassium 4.4 bun 38 creatinine 2.05 AST 257 ALT 108 alkaline phosphatase 234. Total bilirubin 2.0 Coronavirus [PCR]-not detected Amylase 53 lipase 203 EKG tracing personally reviewed by me-normal sinus rhythm Ultrasound gallbladder: Possible internal echoes. Wall up in limit of normal. CBD 1.23 cm. Previous labs: Bun 37 creatinine 1.99 on every 03/17/2021 Assessment and plan: - Common bile duct dilated. Hyperechoic areas of the gallbladder on ultrasound. ERCP: CBD stented. Cholecystectomy. CBD stent to be removed in 2-3 days -Seizure disorder, on antiepileptic drugs -essential hypertension, on Cozaar, Catapres, Norvasc - stroke in the left parieto-occipital area on 07/07/2020, on aspirin, Plavix -Possible significant stenosis in the left carotid siphon.-To follow-up with neuro-hand plug shaper Dr. ray -Obesity BMI 33.1. For weight loss measures as an outpatient. Follow-up with PCP. 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 Follow Accu-Cheks closely. -Depression otherwise specified-On Cymbalta -Hyperlipidemia-On Lipitor -Chronic kidney disease stage III from hypertensive nephrosclerosis and diabetic nephropathy-Follow renal function Diet is being advanced. On Zosyn. IV fluids.
[2020-12-15] MEDS: PIPERACILLIN-TAZOBACTAM 3.375 GM in SODIUM CHLORIDE 0.9% 100 ML IVPB SCH ×3 (02:24→17:27)
[2020-12-15] MEDS: SODIUM CHLORIDE 0.9% 1,000 ML IV SCH ×2 (04:54→16:26)
[2020-12-15 07:45] LABS: Glucose,Whole Blood 269 mg/dL (75-99)
[2020-12-15] MEDS: PANTOPRAZOLE 40 MG TABLET PO SCH (07:47)
[2020-12-15] MEDS: INSULIN ASPART (NovoLOG) 100 UNIT/ML VIAL SQ SCH ×4 (07:48→20:32)
[2020-12-15] MEDS: levETIRAcetam 500 MG TAB PO SCH ×2 (07:48→20:31)
[2020-12-15] MEDS: cloNIDine HCL 0.2 MG TAB PO SCH ×3 (07:48→22:20)
[2020-12-15] MEDS: ENOXAPARIN 30 MG/0.3 ML SYRINGE SQ SCH (07:48)
[2020-12-15] MEDS: ISOSORBIDE MONONITRATE ER 60 MG TAB.ER.24H PO SCH (07:48)
[2020-12-15] MEDS: INSULIN DETEMIR (LEVEMIR) 100 UNIT/ML SYR SQ SCH (07:48)
[2020-12-15 11:35] LABS: Glucose,Whole Blood 340 mg/dL (75-99)
--- NOTE | 2020-12-15 11:42 | P.PN ---
Subjective Progress Note Date: 12/15/20 Principal diagnosis: Choledocholithiasis Patient complaining of some fatigue. Only mild discomfort. Labs are pending. Objective - Vital Signs Vital signs: Vital Signs Temp 97.9 F 12/15/20 07:00 Pulse 68 12/15/20 07:00 Resp 18 12/15/20 07:00 BP 151/70 12/15/20 07:00 Pulse Ox 96 12/15/20 07:00 Intake & Output 12/14/20 12/15/20 12/15/20 18:59 06:59 18:59 Intake Total 1050 240 Output Total 10 Balance 1040 240 Intake: IV 800 Oral 250 240 Output: Estimated Blood Loss 10 Other: Voiding Method Bedside Commode Bedside Commode Bedside Commode Diaper Diaper Diaper Incontinent Incontinent Incontinent # Voids 1 3 1 - Exam Abdomen: Soft, nondistended, small hematoma at umbilical and epigastric incision site - Labs CBC & Chem 7: 12/14/20 06:29 12/14/20 06:29 Labs: Abnormal Lab Results - Last 24 Hours (Table) 12/14/20 12/14/20 12/14/20 Range/Units 12:14 17:23 20:50 POC Glucose (mg/dL) 154 H 178 H 311 H (75-99) mg/dL 12/15/20 12/15/20 Range/Units 07:43 11:33 POC Glucose (mg/dL) 269 H 340 H (75-99) mg/dL Assessment and Plan (1) Choledocholithiasis Narrative/Plan: Gradually resume normal activities. Recheck labs. Tentative plans for stent removal Thursday. Current Visit: Yes Status: Acute Code(s): K80.50 - CALCULUS OF BILE DUCT W/O CHOLANGITIS OR CHOLECYST W/O OBST SNOMED Code(s): 131659107
[2020-12-15] MEDS ORDERED: Dulaglutide [Trulicity] 1.5 MG/0.5 ML Pen.Injctr SQ SCH (12:00)
--- NOTE | 2020-12-15 13:39 | PN ---
PROGRESS NOTE DATE OF SERVICE: 12/15/2020 The patient is a 75-year-old pleasant white male admitted to the hospital with acute cholecystitis and elevated LFTs/ascending cholangitis. He underwent ERCP with CBD stent placement two days ago. He underwent gallbladder surgery yesterday for acute cholecystitis. Overall, he is doing well. He has some epigastric pain. No nausea, no vomiting. PHYSICAL EXAMINATION: Blood pressure 151/70, pulse is 68, temperature 97.9. HEENT examination unremarkable. Conjunctivae pink. Sclerae anicteric. Oral cavity, no lesions. NECK: No JVD or lymph node enlargement. CHEST: Clear to auscultation. HEART: Regular rate and rhythm. ABDOMEN: Soft. Bowel sounds are positive. No organomegaly. EXTREMITIES: No pedal edema. NEUROLOGIC: Alert and oriented x3. No focal deficits. LABS: No labs are available from today. IMPRESSION: 1. Acute cholecystis/ascending cholangitis status post ERCP with CBD stent placement three days ago and status post gallbladder surgery yesterday for acute cholecystitis. Patient doing well. LFTs are improving. Leukocytosis also improving. 2. History of hypertension. 3. History of diabetes mellitus. RECOMMENDATIONS: 1. Continue with broad-spectrum antibiotics. 2. Continue to monitor labs closely. 3. Patient is scheduled for an ERCP with biliary sphincterotomy and CBD stone extraction on Thursday. We will follow with you closely. Thank you for this consultation. LAMIN / SELVINN: [id number] /
[2020-12-15 17:23] LABS: Glucose,Whole Blood 175 mg/dL (75-99)
--- NOTE | 2020-12-15 19:53 | P.PN ---
Progress Note - Text Progress Note Date: 12/15/20 Chief Complaint: Abdominal pain History of presenting complaint: This is a 75-year-old patient of Dr. Santana. Chronic stable medical conditions include hyperlipidemia, diabetes, obstructive sleep apnea, osteoarthritis, kidney stones, cognitive impairment-dementia. 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 KARISHMA-did not show any embolic source/Preserved LV function. Normal valves. MRI of the brain did show acute ischemic change within the left parietal occipital watershed area. Additional focal area of acute ischemic change in the right frontal lobe. MRA of the brain was unremarkable. 2-D echocardiogram showed EF of 55%. Normal LV function. Carotid Doppler was unremarkable. residual right-sided weakness.- assistance with walking. Patient has a loop recorder placed because multiple episodes of decreased responsiveness since July. This time patient's presents with an episode as described by his daughter to the neurologist Dr. Hall: "She stated, today where he complains of a headache, he lost his vision at 10am (could not see out of left eye) then non-responsiveness. His episode of not respoding lasted 5 minutes. No jerking of any extremities. No foaming around the mouth. No urinary or bowel incontinence. He has a similiar episode this past lasting 5 minutes but refused to seek medical attention. He usually have these episode in the morning. After these episodes the feels generalized fatigue and going to sleep for 1 hour. Prior to the episode he complains of headache. ". Patient himself is not a good historian. Patient is similar episode a week ago. On November 03 admitted with a diagnoses of seizure. Found to have a stenosis in the carotid siphon. Supposed to follow-up with neuro-publicist Dr. Ray. Started on Keppra. Admitted to the ER. The daughter gives the history that patient the previous test out of of increasing epigastric pain that became significant worse Vomiting. No fever. He was noted to be jaundice with increased LFTs. Also ER showed a distended gallbladder with a large common bile duct. Underwent ERCP by Dr. Max Fischer. CBD stent was placed. December 14: Cholecystectomy Today-Reclining in bed. Daughter the bedside. Oral intake fair. Pending CBD stent to be removed/Thursday Review of systems: Was done for constitutional, cardiovascular, GI, pulmonary. relevant finding as above Active Medications Albuterol Sulfate (Albuterol Nebulized 2.5 Mg/3 Ml) 2.5 mg INHALATION RT-QID PRN PRN Reason: Shortness Of Breath Amlodipine Besylate (Amlodipine 10 Mg Tab) 10 mg PO [facility] Last Admin: 12/14/20 21:05 Dose: 10 mg Documented by: Clonidine (Clonidine Hcl 0.2 Mg Tab) 0.2 mg PO TID [facility] Last Admin: 12/15/20 16:26 Dose: 0.2 mg Documented by: Duloxetine HCl (Duloxetine Hcl 30 Mg Capsule.Dr) 30 mg PO [facility] Last Admin: 12/14/20 21:05 Dose: 30 mg Documented by: Enoxaparin Sodium (Enoxaparin 30 Mg/0.3 Ml Syringe) 30 mg SQ DAILY [facility] Last Admin: 12/15/20 07:48 Dose: 30 mg Documented by: Hydromorphone HCl (Hydromorphone 0.5 Mg/0.5 Ml Syringe) 0.5 mg IVP Q3HR PRN PRN Reason: Moderate Pain Sodium Chloride (Saline 0.9%) 1,000 mls @ 75 mls/hr IV .[id number] [facility] Last Admin: 12/15/20 16:26 Dose: 75 mls/hr Documented by: Piperacillin Sod/Tazobactam (Sod 3.375 gm/ Sodium Chloride) 100 mls @ 25 mls/hr IVPB Q8H [facility] Last Admin: 12/15/20 17:27 Dose: 25 mls/hr Documented by: Insulin Aspart (Insulin Aspart (Novolog) 100 Unit/Ml Vial) 0 unit SQ [facility]; Protocol Last Admin: 12/15/20 17:27 Dose: 2 unit Documented by: Insulin Detemir (Insulin Detemir (Levemir) 100 Unit/Ml Syr) 28 unit SQ DAILY [facility] Last Admin: 12/15/20 07:48 Dose: 28 unit Documented by: Isosorbide Mononitrate (Isosorbide Mononitrate Er 60 Mg Tab.Er.24h) 60 mg PO DAILY [facility] Last Admin: 12/15/20 07:48 Dose: 60 mg Documented by: Levetiracetam (Levetiracetam 500 Mg Tab) 500 mg PO BID [facility] Last Admin: 12/15/20 07:48 Dose: 500 mg Documented by: Losartan Potassium (Losartan 50 Mg Tab) 50 mg PO HS [facility] Last Admin: 12/14/20 21:05 Dose: 50 mg Documented by: Naloxone HCl (Naloxone 0.4 Mg/Ml 1 Ml Vial) 0.2 mg IV Q2M PRN PRN Reason: Opioid Reversal Dulaglutide [ Trulicity] 1.5 Mg/0. 5 Ml Pen.Injctr 1.5 mg SQ SA [facility] Last Admin: 12/15/20 11:56 Dose: 1.5 mg Documented by: Ondansetron HCl (Ondansetron 4 Mg/2 Ml Vial) 4 mg IVP Q8HR PRN PRN Reason: Nausea And Vomiting Pantoprazole Sodium (Pantoprazole 40 Mg Tablet) 40 mg PO DAILY [facility] Last Admin: 12/15/20 07:47 Dose: 40 mg Documented by: Past medical history to include: Diabetes, hyperlipidemia, hypertension, obstructive sleep apnea, osteoarthritis, kidney stones, cognitive impairment, stroke hypertension with right-sided weakness, depression, seizure Social history: No history of smoking or alcohol. Lives with his . Physical examination: VITAL SIGNS: 97.4, 70, 20, 171/71, 98% room air GENERAL: Laying in bed, awake EYES: Pupils equal. Conjunctiva normal. HEENT: External appearance of nose and ears normal, oral cavity grossly normal. NECK: JVD not raised; masses not palpable. HEART: First and second heart sounds are normal; no edema. LUNGS: Respiratory rate normal; clear to auscultation. ABDOMEN: Soft, mild abdomen tenderness, no guarding rigidity, liver spleen not palpable, no masses palpable. PSYCH: answering simple questions INVESTIGATIONS, reviewed in the clinical context: December 14: WBC 8.2 hemoglobin 13.4 creatinine 2.15 AST 125 ALT 221 December 13: WBC 10.9 hemoglobin 12.5 potassium 4 creatinine 2.28 WBC 28.1 hemoglobin 13 platelets 249 potassium 4.5 bun 39 creatinine 2.43. Total bilirubin 3 AST 9148 ALT 510 alkaline phosphatase 270 Admitting labs: WBC 14.9 hemoglobin 14.4 potassium 4.4 bun 38 creatinine 2.05 AST 257 ALT 108 alkaline phosphatase 234. Total bilirubin 2.0 Coronavirus [PCR]-not detected Amylase 53 lipase 203 EKG tracing personally reviewed by me-normal sinus rhythm Ultrasound gallbladder: Possible internal echoes. Wall up in limit of normal. CBD 1.23 cm. Previous labs: Bun 37 creatinine 1.99 on every 03/17/2021 Assessment and plan: - Common bile duct dilated. Hyperechoic areas of the gallbladder on ultrasound. ERCP: CBD stented. Cholecystectomy. CBD stent to be removed on Thursday -Seizure disorder, on antiepileptic drugs -essential hypertension, on Cozaar, Catapres, Norvasc - stroke in the left parieto-occipital area on 07/07/2020, on aspirin, Plavix -Possible significant stenosis in the left carotid siphon.-To follow-up with neuro-publicist Dr. ray -Obesity BMI 33.1. For weight loss measures as an outpatient. Follow-up with PCP. 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 Follow Accu-Cheks closely. -Depression otherwise specified-On Cymbalta -Hyperlipidemia-On Lipitor -Chronic kidney disease stage III from hypertensive nephrosclerosis and diabetic nephropathy-Follow renal function Discussed with daughter the bedside. Continue IV Zosyn and IV fluids.
[2020-12-15 20:15] LABS: Glucose,Whole Blood 235 mg/dL (75-99)
[2020-12-15] MEDS: LOSARTAN 50 MG TAB PO SCH (20:31)
[2020-12-15] MEDS: DULoxetine HCL 30 MG CAPSULE.DR PO SCH (20:32)
[2020-12-15] MEDS: amLODIPine 10 MG TAB PO SCH (20:32)
[2020-12-16] MEDS: PIPERACILLIN-TAZOBACTAM 3.375 GM in SODIUM CHLORIDE 0.9% 100 ML IVPB SCH ×3 (02:34→16:52)
[2020-12-16] MEDS: SODIUM CHLORIDE 0.9% 1,000 ML IV SCH ×2 (07:29→20:37)
[2020-12-16] MEDS: INSULIN ASPART (NovoLOG) 100 UNIT/ML VIAL SQ SCH ×4 (07:30→20:38)
[2020-12-16 07:31] LABS: Glucose,Whole Blood 144 mg/dL (75-99)
[2020-12-16] MEDS: INSULIN DETEMIR (LEVEMIR) 100 UNIT/ML SYR SQ SCH (07:31)
[2020-12-16] MEDS: cloNIDine HCL 0.2 MG TAB PO SCH ×3 (07:51→21:49)
[2020-12-16] MEDS: ISOSORBIDE MONONITRATE ER 60 MG TAB.ER.24H PO SCH (07:51)
[2020-12-16] MEDS: levETIRAcetam 500 MG TAB PO SCH ×2 (07:51→20:38)
[2020-12-16] MEDS: PANTOPRAZOLE 40 MG TABLET PO SCH (07:52)
[2020-12-16] MEDS: ENOXAPARIN 30 MG/0.3 ML SYRINGE SQ SCH (07:52)
[2020-12-16 09:54] LABS: African American GFR (CKD) 34.9 (60.0-200.0); Albumin 3.3 g/dL (3.80-4.90); Albumin/Globulin Ratio 1.5 (1.60-3.17); Anion Gap 7.7 mmol/L (4.00-12.00); BUN/Creat Ratio 11.9 Ratio (12.00-20.00); Calcium 8.6 mg/dL (8.7-10.3); Carbon Dioxide 22.3 mmol/L (21.6-31.8); Globulin 2.2 g/dL (1.6-3.3); Non-African American GFR(CKD) 30.1 (60.0-200.0); Potassium 4.2 mmol/L (3.5-5.5); Total Bilirubin 0.7 mg/dL (0.2-1.2); Total Protein 5.5 g/dL (6.2-8.2)
--- NOTE | 2020-12-16 11:45 | P.PN ---
Subjective Progress Note Date: 12/16/20 Principal diagnosis: Choledocholithiasis Patient with no new complaints. Minimal discomfort. Today's labs are improved. Objective - Vital Signs Vital signs: Vital Signs Temp 99.9 F H 12/16/20 07:00 Pulse 80 12/16/20 07:00 Resp 19 12/16/20 07:00 BP 147/74 12/16/20 07:00 Pulse Ox 96 12/16/20 07:00 Intake & Output 12/15/20 12/16/20 12/16/20 18:59 06:59 18:59 Intake Total 720 480 Balance 720 480 Intake: Oral 720 480 Other: Voiding Method Bedside Commode Toilet Toilet Diaper Diaper Diaper Incontinent # Voids 1 2 2 # Bowel Movements 1 - Exam Abdomen: Soft, nondistended, mild incisional tenderness, incisions with mild ecchymosis - Labs CBC & Chem 7: 12/14/20 06:29 12/16/20 04:36 Labs: Abnormal Lab Results - Last 24 Hours (Table) 12/15/20 12/15/20 12/16/20 Range/Units 17:22 20:14 04:36 Creatinine 2.1 H (0.6-1.5) mg/dL Est GFR (CKD-EPI)AfAm 34.9 L (60.0-200.0) Est GFR (CKD-EPI)NonAf 30.1 L (60.0-200.0) BUN/Creatinine Ratio 11.90 L (12.00-20.00) Ratio Glucose 191 H (70-110) mg/dL POC Glucose (mg/dL) 175 H 235 H (75-99) mg/dL Calcium 8.6 L (8.7-10.3) mg/dL AST 39 H (14-35) U/L ALT 112 H (10-49) U/L Alkaline Phosphatase 202 H (41-126) U/L Total Protein 5.5 L (6.2-8.2) g/dL Albumin 3.30 L (3.80-4.90) g/dL Albumin/Globulin Ratio 1.50 L (1.60-3.17) g/dL 12/16/20 Range/Units 07:29 Creatinine (0.6-1.5) mg/dL Est GFR (CKD-EPI)AfAm (60.0-200.0) Est GFR (CKD-EPI)NonAf (60.0-200.0) BUN/Creatinine Ratio (12.00-20.00) Ratio Glucose (70-110) mg/dL POC Glucose (mg/dL) 144 H (75-99) mg/dL Calcium (8.7-10.3) mg/dL AST (14-35) U/L ALT (10-49) U/L Alkaline Phosphatase (41-126) U/L Total Protein (6.2-8.2) g/dL Albumin (3.80-4.90) g/dL Albumin/Globulin Ratio (1.60-3.17) g/dL Assessment and Plan (1) Choledocholithiasis Narrative/Plan: Continue diet as tolerated. Continue antibiotics. ERCP tomorrow with stent removal. Current Visit: Yes Status: Acute Code(s): K80.50 - CALCULUS OF BILE DUCT W/O CHOLANGITIS OR CHOLECYST W/O OBST SNOMED Code(s): 713566887
[2020-12-16 12:06] LABS: Glucose,Whole Blood 163 mg/dL (75-99)
--- NOTE | 2020-12-16 15:43 | PN ---
PROGRESS NOTE DATE OF SERVICE: 12/16/2020 INTERVAL HISTORY: The patient is a 75-year-old pleasant white male admitted to hospital with ascending cholangitis/acute cholecystitis, status post ERCP with CBD stent placement 4 days ago. He underwent gallbladder surgery 2 days ago. Patient doing well. He denies any symptoms. Currently, aspirin and Plavix on hold. Patient is doing much better. PHYSICAL EXAMINATION: Appears comfortable, no apparent distress. VITAL SIGNS: Stable. Blood pressure 133/66, pulse rate 82 per minute and afebrile. HEENT: Examination unremarkable. Conjunctivae pink. Sclerae anicteric. Oral cavity, no lesions. NECK: No JVD or lymph node enlargement. CHEST: Clear to auscultation. HEART: Regular rate and rhythm. ABDOMEN: Soft. Bowel sounds are positive. No organomegaly. NEURO: He is alert and oriented x3. No focal deficits. LABS: From today T bilirubin is 0.7, AST 39, ALT 112, alkaline phosphatase 202. BUN 25, creatinine 2.1. IMPRESSION: 1. Ascending cholangitis/acute cholecystitis, status post ERCP with common bile duct stent placement 4 days ago. The patient clinically doing well. LFTs gradually improving. 2. Status post cholecystectomy 2 days ago. 3. History of cerebrovascular accident, on aspirin and Plavix, currently on hold for 5 days. RECOMMENDATIONS: 1. Continue with broad-spectrum antibiotics. 2. We will proceed with ERCP with CBD stent removal and sphincterotomy with CBD stone extraction. 3. Keep him n.p.o. after midnight. 4. Monitor labs closely and we will follow with you. Thank you for this consultation. MMODL / IJN: [id number] /
[2020-12-16 16:30] LABS: Glucose,Whole Blood 201 mg/dL (75-99)
[2020-12-16 20:34] LABS: Glucose,Whole Blood 253 mg/dL (75-99)
[2020-12-16] MEDS: amLODIPine 10 MG TAB PO SCH (20:38)
[2020-12-16] MEDS: LOSARTAN 50 MG TAB PO SCH (20:38)
[2020-12-16] MEDS: DULoxetine HCL 30 MG CAPSULE.DR PO SCH (20:38)
--- NOTE | 2020-12-16 22:13 | P.PN ---
Progress Note - Text Progress Note Date: 12/16/20 Chief Complaint: Abdominal pain History of presenting complaint: This is a 75-year-old patient of Dr. Santana. Chronic stable medical conditions include hyperlipidemia, diabetes, obstructive sleep apnea, osteoarthritis, kidney stones, cognitive impairment-dementia. 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 KARISHMA-did not show any embolic source/Preserved LV function. Normal valves. MRI of the brain did show acute ischemic change within the left parietal occipital watershed area. Additional focal area of acute ischemic change in the right frontal lobe. MRA of the brain was unremarkable. 2-D echocardiogram showed EF of 55%. Normal LV function. Carotid Doppler was unremarkable. residual right-sided weakness.- assistance with walking. Patient has a loop recorder placed because multiple episodes of decreased responsiveness since July. This time patient's presents with an episode as described by his daughter to the neurologist Dr. Hall: "She stated, today where he complains of a headache, he lost his vision at 10am (could not see out of left eye) then non-responsiveness. His episode of not respoding lasted 5 minutes. No jerking of any extremities. No foaming around the mouth. No urinary or bowel incontinence. He has a similiar episode this past lasting 5 minutes but refused to seek medical attention. He usually have these episode in the morning. After these episodes the feels generalized fatigue and going to sleep for 1 hour. Prior to the episode he complains of headache. ". Patient himself is not a good historian. Patient is similar episode a week ago. On November 03 admitted with a diagnoses of seizure. Found to have a stenosis in the carotid siphon. Supposed to follow-up with neuro-associate business analyst Dr. Ray. Started on Keppra. Admitted to the ER. The daughter gives the history that patient the previous test out of of increasing epigastric pain that became significant worse Vomiting. No fever. He was noted to be jaundice with increased LFTs. Also ER showed a distended gallbladder with a large common bile duct. Underwent ERCP by Dr. Max Fischer. CBD stent was placed. December 14: Cholecystectomy Today-comfortable. On regular diet. No pains no fever. Review of systems: Was done for constitutional, cardiovascular, GI, pulmonary. relevant finding as above Active Medications Albuterol Sulfate (Albuterol Nebulized 2.5 Mg/3 Ml) 2.5 mg INHALATION RT-QID PRN PRN Reason: Shortness Of Breath Amlodipine Besylate (Amlodipine 10 Mg Tab) 10 mg PO [facility] Last Admin: 12/16/20 20:38 Dose: 10 mg Documented by: Clonidine (Clonidine Hcl 0.2 Mg Tab) 0.2 mg PO TID [facility] Last Admin: 12/16/20 21:49 Dose: 0.2 mg Documented by: Duloxetine HCl (Duloxetine Hcl 30 Mg Capsule.Dr) 30 mg PO [facility] Last Admin: 12/16/20 20:38 Dose: 30 mg Documented by: Enoxaparin Sodium (Enoxaparin 30 Mg/0.3 Ml Syringe) 30 mg SQ DAILY [facility] Last Admin: 12/16/20 07:52 Dose: 30 mg Documented by: Hydromorphone HCl (Hydromorphone 0.5 Mg/0.5 Ml Syringe) 0.5 mg IVP Q3HR PRN PRN Reason: Moderate Pain Last Admin: 12/16/20 07:54 Dose: 0.5 mg Documented by: Sodium Chloride (Saline 0.9%) 1,000 mls @ 75 mls/hr IV .[id number] [facility] Last Admin: 12/16/20 20:37 Dose: 75 mls/hr Documented by: Piperacillin Sod/Tazobactam (Sod 3.375 gm/ Sodium Chloride) 100 mls @ 25 mls/hr IVPB Q8H [facility] Last Admin: 12/16/20 16:52 Dose: 25 mls/hr Documented by: Insulin Aspart (Insulin Aspart (Novolog) 100 Unit/Ml Vial) 0 unit SQ ACHS [facility]; Protocol Last Admin: 12/16/20 20:38 Dose: 4 unit Documented by: Insulin Detemir (Insulin Detemir (Levemir) 100 Unit/Ml Syr) 28 unit SQ DAILY [facility] Last Admin: 12/16/20 07:31 Dose: Not Given Documented by: Isosorbide Mononitrate (Isosorbide Mononitrate Er 60 Mg Tab.Er.24h) 60 mg PO DAILY [facility] Last Admin: 12/16/20 07:51 Dose: 60 mg Documented by: Levetiracetam (Levetiracetam 500 Mg Tab) 500 mg PO BID [facility] Last Admin: 12/16/20 20:38 Dose: 500 mg Documented by: Losartan Potassium (Losartan 50 Mg Tab) 50 mg PO HS [facility] Last Admin: 12/16/20 20:38 Dose: 50 mg Documented by: Naloxone HCl (Naloxone 0.4 Mg/Ml 1 Ml Vial) 0.2 mg IV Q2M PRN PRN Reason: Opioid Reversal Dulaglutide [ Trulicity] 1.5 Mg/0. 5 Ml Pen.Injctr 1.5 mg SQ SA [facility] Last Admin: 12/15/20 11:56 Dose: 1.5 mg Documented by: Ondansetron HCl (Ondansetron 4 Mg/2 Ml Vial) 4 mg IVP Q8HR PRN PRN Reason: Nausea And Vomiting Pantoprazole Sodium (Pantoprazole 40 Mg Tablet) 40 mg PO DAILY [facility] Last Admin: 12/16/20 07:52 Dose: 40 mg Documented by: Past medical history to include: Diabetes, hyperlipidemia, hypertension, obstructive sleep apnea, osteoarthritis, kidney stones, cognitive impairment, stroke hypertension with right-sided weakness, depression, seizure Social history: No history of smoking or alcohol. Lives with his . Physical examination: VITAL SIGNS: 98, 64, 19, 107/72, 96% on room air GENERAL: Comfortable EYES: Pupils equal. Conjunctiva normal. HEENT: External appearance of nose and ears normal, oral cavity grossly normal. NECK: JVD not raised; masses not palpable. HEART: First and second heart sounds are normal; no edema. LUNGS: Respiratory rate normal; clear to auscultation. ABDOMEN: Soft, mild abdomen tenderness, no guarding rigidity, liver spleen not palpable, no masses palpable. PSYCH: answering simple questions INVESTIGATIONS, reviewed in the clinical context: December 16: Potassium 4.2 creatinine 2.1 total bilirubin 0.7 AST 39 ALT 112 December 14: WBC 8.2 hemoglobin 13.4 creatinine 2.15 AST 125 ALT 221 December 13: WBC 10.9 hemoglobin 12.5 potassium 4 creatinine 2.28 WBC 28.1 hemoglobin 13 platelets 249 potassium 4.5 bun 39 creatinine 2.43. Total bilirubin 3 AST 9148 ALT 510 alkaline phosphatase 270 Admitting labs: WBC 14.9 hemoglobin 14.4 potassium 4.4 bun 38 creatinine 2.05 AST 257 ALT 108 alkaline phosphatase 234. Total bilirubin 2.0 Coronavirus [PCR]-not detected Amylase 53 lipase 203 EKG tracing personally reviewed by me-normal sinus rhythm Ultrasound gallbladder: Possible internal echoes. Wall up in limit of normal. CBD 1.23 cm. Previous labs: Bun 37 creatinine 1.99 on every 03/17/2021 Assessment and plan: - Common bile duct dilated. Hyperechoic areas of the gallbladder on ultrasound. ERCP: CBD stented. Cholecystectomy. CBD stent to be removed on Thursday -Seizure disorder, on antiepileptic drugs -essential hypertension, on Cozaar, Catapres, Norvasc - stroke in the left parieto-occipital area on 07/07/2020, on aspirin, Plavix -Possible significant stenosis in the left carotid siphon.-To follow-up with neuro-associate business analyst Dr. ray -Obesity BMI 33.1. For weight loss measures as an outpatient. Follow-up with PCP. 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 Follow Accu-Cheks closely. -Depression otherwise specified-On Cymbalta -Hyperlipidemia-On Lipitor -Chronic kidney disease stage III from hypertensive nephrosclerosis and diabetic nephropathy-Follow renal function Discussed with the patient and daughter. Discussed with Dr. Max Fischer. For CBD stent to be removed tomorrow.
[2020-12-17] MEDS: PIPERACILLIN-TAZOBACTAM 3.375 GM in SODIUM CHLORIDE 0.9% 100 ML IVPB SCH ×3 (02:45→18:13)
[2020-12-17 07:17] LABS: Glucose,Whole Blood 171 mg/dL (75-99)
[2020-12-17] MEDS: INSULIN ASPART (NovoLOG) 100 UNIT/ML VIAL SQ SCH ×4 (09:03→21:10)
[2020-12-17] MEDS: ENOXAPARIN 30 MG/0.3 ML SYRINGE SQ SCH (09:07)
[2020-12-17] MEDS: SODIUM CHLORIDE 0.9% 1,000 ML IV SCH ×2 (10:33→21:12)
[2020-12-17] MEDS ORDERED: ACETAMINOPHEN SUPPOSITORY 650 MG SUPP RECTAL PRN (11:08)
[2020-12-17] MEDS ORDERED: HYDROcodone/APAP 5-325MG 1 EACH TAB PO PRN (11:24)
--- NOTE | 2020-12-17 11:25 | P.PN ---
Subjective Progress Note Date: 12/17/20 CHIEF COMPLAINT: Abdominal pain HISTORY OF PRESENT ILLNESS: Patient is complaining of mild epigastric pain. He is postop day #3 status post laparoscopic cholecystectomy. Patient is scheduled for ERCP with stent removal today. No nausea or vomiting reported. Currently nothing by mouth for ERCP preprocedure today. Afebrile. Elevated BP this morning 179/82. No new labs for today PHYSICAL EXAM: VITAL SIGNS: Reviewed. GENERAL: Well-developed in no acute distress. HEENT: No sclera icterus. Extraocular movements grossly intact. Moist buccal mucosa. Head is atraumatic, normocephalic. ABDOMEN: Soft. Nondistended. Mild Epigastric tenderness NEUROLOGIC: Alert and oriented. Cranial nerves II through XII grossly intact. ASSESSMENT: 1. Acute cholecystitis and choledocholithiasis status post laparoscopic cholecystectomy 2. Ascending cholangitis PLAN: -Patient scheduled for ERCP with stent removal today by GI service -Continue antibiotics -Continue IV fluids -And oral pain medication as needed for pain Physician Dispute Resolution Analyst note has been reviewed by physician. Signing provider agrees with the documented findings, assessment, and plan of care. Objective - Vital Signs Vital signs: Vital Signs Temp 98 F 12/17/20 07:00 Pulse 77 12/17/20 07:00 Resp 16 12/17/20 07:00 BP 179/82 12/17/20 07:00 Pulse Ox 96 12/17/20 07:00 Intake & Output 12/16/20 12/17/20 12/17/20 18:59 06:59 18:59 Intake Total 480 Balance 480 Intake: Oral 480 Other: Voiding Method Toilet Toilet Toilet Diaper Diaper Diaper # Voids 2 4 1 # Bowel Movements 1 - Labs CBC & Chem 7: 12/14/20 06:29 12/16/20 04:36 Labs: Abnormal Lab Results - Last 24 Hours (Table) 12/16/20 12/16/20 12/16/20 Range/Units 12:00 16:28 20:32 POC Glucose (mg/dL) 163 H 201 H 253 H (75-99) mg/dL 12/17/20 Range/Units 07:15 POC Glucose (mg/dL) 171 H (75-99) mg/dL
[2020-12-17 11:31] LABS: Glucose,Whole Blood 170 mg/dL (75-99)
[2020-12-17] MEDS ORDERED: LIDOCAINE 1% INJ 10MG/ML (20 ML MDV) ONE (11:32)
[2020-12-17] MEDS ORDERED: SUCCINYLCHOLINE CHLORIDE 100 MG/5 ML SYR IV ONE (11:32)
[2020-12-17] MEDS ORDERED: PROPOFOL 10 MG/ML 20 ML VIAL IV ONE (11:32)
[2020-12-17] MEDS ORDERED: IV FLUID CONTINUATION 1,000 ML IV ONE ×2 (11:36)
[2020-12-17] MEDS ORDERED: IOPAMIDOL-300 50ML BTL INJ ONE (11:55)
--- NOTE | 2020-12-17 12:07 | P.PCN ---
Date of Procedure: 12/17/20 Procedure(s) Performed: Brief history: Patient is a 75 year-old pleasant male admitted hospital with ascending cholangitis and elevated LFTs and jaundice. ERCP done 5 days ago showed a dilated CBD with 2 small filling defects and CBD stent was placed as the patient was an aspirin and Plavix and hence a sphincterotomy was not performed. In the meantime he underwent gallbladder SURGERY 2 days ago. He is doing well. He scheduled for an ERCP for CBD stone extraction. Procedure performed: ERCP with CBD biliary sphinct and stent removal,erotomy and balloon stone extraction Preoperative diagnoses: Ascending cholangitis/CBD stones IV sedation per anesthesia: Procedure: After informed consent was obtained from the patient and after the risks benefits and complications including bleeding perforation and pancreatitis explained in detail the patient was brought into the endoscopy unit. The patient was placed in prone position and IV conscious sedation was administered by anesthesia under continuous monitoring. The Olympus side-viewing duodenoscope was then inserted into the mouth and esophagus intubated without any difficulty. The scope was gradually advanced into the stomach and duodenum. The major papilla was identified without any difficulty. The previously placed CBD stent was removed without any difficulty. Subsequently using a sphincterotome the common bile duct was cannulated without any difficulty and upon injection of the dye the CBD appeared about 7-8 mm in diameter. There were 2 small filling defect noted in the distal common bile duct. At this time a biliary sphincterotomy was performed over a guidewire at 12 o'clock position and was extended to 1 cm. Following this an 11 mm balloon catheter was passed over the guidewire and gently inflated and withdrawn and 2 stones gallstones seen exiting the ampulla. Repeat occlusion cholangiogram was performed with no other filling defects. Patient tolerated the procedure well. Impression: Slightly dilated common bile duct with small filling defect status post biliary sphincterotomy and balloon stone extraction as described above Pancreatic duct intentionally not cannulated Recommendations: The findings of this examination were discussed with the patient as well as a family He will continue with antibiotics and diet will be advanced as tolerated. He can be o discharged home today or tomorrow.
--- NOTE | 2020-12-17 12:24 | FL ---
Fluoroscopy History: Biliary Stone The department radiology provided fluoroscopic guidance for ERCP for biliary stone.
[2020-12-17 12:38] LABS: Glucose,Whole Blood 196 mg/dL (75-99)
[2020-12-17] MEDS ORDERED: INDOMETHACIN 50MG SUPPOSITORY RECTAL ONE (13:00)
[2020-12-17] MEDS: ISOSORBIDE MONONITRATE ER 60 MG TAB.ER.24H PO SCH (13:33)
[2020-12-17] MEDS: INSULIN DETEMIR (LEVEMIR) 100 UNIT/ML SYR SQ SCH (13:33)
[2020-12-17] MEDS: cloNIDine HCL 0.2 MG TAB PO SCH ×3 (13:33→21:12)
[2020-12-17] MEDS: PANTOPRAZOLE 40 MG TABLET PO SCH (13:35)
[2020-12-17] MEDS: levETIRAcetam 500 MG TAB PO SCH ×2 (13:35→21:10)
[2020-12-17 13:38] LABS: Glucose,Whole Blood 226 mg/dL (75-99)
[2020-12-17 17:18] LABS: Glucose,Whole Blood 239 mg/dL (75-99)
[2020-12-17 20:29] LABS: Glucose,Whole Blood 333 mg/dL (75-99)
[2020-12-17] MEDS: DULoxetine HCL 30 MG CAPSULE.DR PO SCH (21:09)
[2020-12-17] MEDS: amLODIPine 10 MG TAB PO SCH (21:09)
[2020-12-17] MEDS: LOSARTAN 50 MG TAB PO SCH (21:10)
--- NOTE | 2020-12-17 22:44 | P.PN ---
Progress Note - Text Progress Note Date: 12/17/20 Chief Complaint: Abdominal pain History of presenting complaint: This is a 75-year-old patient of Dr. Santana. Chronic stable medical conditions include hyperlipidemia, diabetes, obstructive sleep apnea, osteoarthritis, kidney stones, cognitive impairment-dementia. 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 KARISHMA-did not show any embolic source/Preserved LV function. Normal valves. MRI of the brain did show acute ischemic change within the left parietal occipital watershed area. Additional focal area of acute ischemic change in the right frontal lobe. MRA of the brain was unremarkable. 2-D echocardiogram showed EF of 55%. Normal LV function. Carotid Doppler was unremarkable. residual right-sided weakness.- assistance with walking. Patient has a loop recorder placed because multiple episodes of decreased responsiveness since July. This time patient's presents with an episode as described by his daughter to the neurologist Dr. Hall: "She stated, today where he complains of a headache, he lost his vision at 10am (could not see out of left eye) then non-responsiveness. His episode of not respoding lasted 5 minutes. No jerking of any extremities. No foaming around the mouth. No urinary or bowel incontinence. He has a similiar episode this past lasting 5 minutes but refused to seek medical attention. He usually have these episode in the morning. After these episodes the feels generalized fatigue and going to sleep for 1 hour. Prior to the episode he complains of headache. ". Patient himself is not a good historian. Patient is similar episode a week ago. On November 03 admitted with a diagnoses of seizure. Found to have a stenosis in the carotid siphon. Supposed to follow-up with neuro-state director Dr. Ray. Started on Keppra. Admitted to the ER. The daughter gives the history that patient the previous test out of of increasing epigastric pain that became significant worse Vomiting. No fever. He was noted to be jaundice with increased LFTs. Also ER showed a distended gallbladder with a large common bile duct. Underwent ERCP by Dr. Max Fischer. CBD stent was placed. December 14: Cholecystectomy Today-saw the patient before the procedure. Later taken down for ERCP: CBD stent was removed. Sphincterotomy with stone extraction was done. Review of systems: Was done for constitutional, cardiovascular, GI, pulmonary. relevant finding as above Active Medications Hydrocodone Bitart/Acetaminophen (Hydrocodone/Apap 5-325mg 1 Each Tab) 1 each PO Q6HR PRN PRN Reason: Pain Last Admin: 12/17/20 18:32 Dose: 1 each Documented by: Albuterol Sulfate (Albuterol Nebulized 2.5 Mg/3 Ml) 2.5 mg INHALATION RT-QID PRN PRN Reason: Shortness Of Breath Amlodipine Besylate (Amlodipine 10 Mg Tab) 10 mg PO [facility] Last Admin: 12/17/20 21:09 Dose: 10 mg Documented by: Clonidine (Clonidine Hcl 0.2 Mg Tab) 0.2 mg PO TID [facility] Last Admin: 12/17/20 21:12 Dose: 0.2 mg Documented by: Duloxetine HCl (Duloxetine Hcl 30 Mg Capsule.Dr) 30 mg PO [facility] Last Admin: 12/17/20 21:09 Dose: 30 mg Documented by: Enoxaparin Sodium (Enoxaparin 30 Mg/0.3 Ml Syringe) 30 mg SQ DAILY [facility] Last Admin: 12/17/20 09:07 Dose: Not Given Documented by: Hydromorphone HCl (Hydromorphone 0.5 Mg/0.5 Ml Syringe) 0.5 mg IVP Q3HR PRN PRN Reason: Moderate Pain Last Admin: 12/16/20 07:54 Dose: 0.5 mg Documented by: Sodium Chloride (Saline 0.9%) 1,000 mls @ 75 mls/hr IV .[id number] [facility] Last Admin: 12/17/20 21:12 Dose: Not Given Documented by: Piperacillin Sod/Tazobactam (Sod 3.375 gm/ Sodium Chloride) 100 mls @ 25 mls/hr IVPB Q8H [facility] Last Admin: 12/17/20 18:13 Dose: 25 mls/hr Documented by: Insulin Aspart (Insulin Aspart (Novolog) 100 Unit/Ml Vial) [address] [facility]; Protocol Last Admin: 12/17/20 21:10 Dose: 6 unit Documented by: Insulin Detemir (Insulin Detemir (Levemir) 100 Unit/Ml Syr) 28 unit SQ DAILY [facility] Last Admin: 12/17/20 13:33 Dose: Not Given Documented by: Isosorbide Mononitrate (Isosorbide Mononitrate Er 60 Mg Tab.Er.24h) 60 mg PO DAILY [facility] Last Admin: 12/17/20 13:33 Dose: Not Given Documented by: Levetiracetam (Levetiracetam 500 Mg Tab) 500 mg PO BID [facility] Last Admin: 12/17/20 21:10 Dose: 500 mg Documented by: Losartan Potassium (Losartan 50 Mg Tab) 50 mg PO HS [facility] Last Admin: 12/17/20 21:10 Dose: 50 mg Documented by: Naloxone HCl (Naloxone 0.4 Mg/Ml 1 Ml Vial) 0.2 mg IV Q2M PRN PRN Reason: Opioid Reversal Dulaglutide [ Trulicity] 1.5 Mg/0. 5 Ml Pen.Injctr 1.5 mg SQ SA [facility] Last Admin: 12/15/20 11:56 Dose: 1.5 mg Documented by: Ondansetron HCl (Ondansetron 4 Mg/2 Ml Vial) 4 mg IVP Q8HR PRN PRN Reason: Nausea And Vomiting Last Admin: 12/17/20 13:42 Dose: 4 mg Documented by: Pantoprazole Sodium (Pantoprazole 40 Mg Tablet) 40 mg PO DAILY [facility] Last Admin: 12/17/20 13:35 Dose: Not Given Documented by: Past medical history to include: Diabetes, hyperlipidemia, hypertension, obstructive sleep apnea, osteoarthritis, kidney stones, cognitive impairment, stroke hypertension with right-sided weakness, depression, seizure Social history: No history of smoking or alcohol. Lives with his . Physical examination: VITAL SIGNS: 97, 75, 16, 132 x 56, 96% on room air GENERAL: Comfortable EYES: Pupils equal. Conjunctiva normal. HEENT: External appearance of nose and ears normal, oral cavity grossly normal. NECK: JVD not raised; masses not palpable. HEART: First and second heart sounds are normal; no edema. LUNGS: Respiratory rate normal; clear to auscultation. ABDOMEN: Soft, mild abdomen tenderness, no guarding rigidity, liver spleen not palpable, no masses palpable. PSYCH: answering simple questions INVESTIGATIONS, reviewed in the clinical context: December 16: Potassium 4.2 creatinine 2.1 total bilirubin 0.7 AST 39 ALT 112 December 14: WBC 8.2 hemoglobin 13.4 creatinine 2.15 AST 125 ALT 221 December 13: WBC 10.9 hemoglobin 12.5 potassium 4 creatinine 2.28 WBC 28.1 hemoglobin 13 platelets 249 potassium 4.5 bun 39 creatinine 2.43. Total bilirubin 3 AST 9148 ALT 510 alkaline phosphatase 270 Admitting labs: WBC 14.9 hemoglobin 14.4 potassium 4.4 bun 38 creatinine 2.05 AST 257 ALT 108 alkaline phosphatase 234. Total bilirubin 2.0 Coronavirus [PCR]-not detected Amylase 53 lipase 203 EKG tracing personally reviewed by me-normal sinus rhythm Ultrasound gallbladder: Possible internal echoes. Wall up in limit of normal. CBD 1.23 cm. Previous labs: Bun 37 creatinine 1.99 on every 03/17/2021 Assessment and plan: - Common bile duct dilated. Hyperechoic areas of the gallbladder on ultrasound. ERCP: CBD stented. Cholecystectomy. CBD stent removed today along with sphincterotomy and stone extraction. -Seizure disorder, on antiepileptic drugs -essential hypertension, on Cozaar, Catapres, Norvasc - stroke in the left parieto-occipital area on 07/07/2020, on aspirin, Plavix -Possible significant stenosis in the left carotid siphon.-To follow-up with neuro-state director Dr. ray -Obesity BMI 33.1. For weight loss measures as an outpatient. Follow-up with PCP. 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 Follow Accu-Cheks closely. -Depression otherwise specified-On Cymbalta -Hyperlipidemia-On Lipitor -Chronic kidney disease stage III from hypertensive nephrosclerosis and diabetic nephropathy-Follow renal function Hopefully DC in 24 hours. if Does well overnight
[2020-12-18] MEDS: PIPERACILLIN-TAZOBACTAM 3.375 GM in SODIUM CHLORIDE 0.9% 100 ML IVPB SCH ×2 (01:36→10:32)
[2020-12-18 05:56] LABS: Basophils % (A) 0 %; Eosinophils # (A) 0.1 k/uL (0-0.7); Eosinophils % (A) 1 %; HCT 33.9 % (39.0-53.0); HGB 11.3 gm/dL (13.0-17.5); Lymphocytes # (A) 1.4 k/uL (1.0-4.8); Lymphocytes % (A) 16 %; MCHC 33.3 g/dL (31.0-37.0); Mean Platelet Volume 7.7; Monocytes # (A) 0.5 k/uL (0-1.0); Monocytes % (A) 6 %; Neutrophils # (A) 6.6 k/uL (1.3-7.7); Neutrophils % (A) 75 %; Platelet Count 273 k/uL (150-450); RBC 3.64 m/uL (4.30-5.90); RDW 13.6 % (11.5-15.5); WBC 8.8 k/uL (3.8-10.6)
[2020-12-18 05:58] LABS: ALT 93 U/L (4-49); AST 74 U/L (17-59); African American GFR (CKD) 39 (>60 ml/min/1.73 sqM); Albumin 2.8 g/dL (3.5-5.0); Alkaline Phosphatase 391 U/L (38-126); Anion Gap 6 mmol/L; Blood Urea Nitrogen 19 mg/dL (9-20); Calcium 8.5 mg/dL (8.4-10.2); Carbon Dioxide 23 mmol/L (22-30); Chloride 108 mmol/L (98-107); Globulin 2.7 g/dL; Glucose 161 mg/dL (74-99); Non-African American GFR(CKD) 34 (>60 ml/min/1.73 sqM); Potassium 4.2 mmol/L (3.5-5.1); Sodium 137 mmol/L (137-145); Total Protein 5.5 g/dL (6.3-8.2)
[2020-12-18 07:21] LABS: Glucose,Whole Blood 178 mg/dL (75-99)
[2020-12-18] MEDS: INSULIN ASPART (NovoLOG) 100 UNIT/ML VIAL SQ SCH ×2 (07:35→12:33)
[2020-12-18] MEDS: INSULIN DETEMIR (LEVEMIR) 100 UNIT/ML SYR SQ SCH (09:23)
[2020-12-18] MEDS: cloNIDine HCL 0.2 MG TAB PO SCH (09:23)
[2020-12-18] MEDS: ISOSORBIDE MONONITRATE ER 60 MG TAB.ER.24H PO SCH (09:23)
[2020-12-18] MEDS: ENOXAPARIN 30 MG/0.3 ML SYRINGE SQ SCH (09:23)
[2020-12-18] MEDS: PANTOPRAZOLE 40 MG TABLET PO SCH (09:23)
[2020-12-18] MEDS: levETIRAcetam 500 MG TAB PO SCH (09:23)
--- NOTE | 2020-12-18 11:38 | P.PN ---
Subjective Progress Note Date: 12/18/20 CHIEF COMPLAINT: Abdominal pain HISTORY OF PRESENT ILLNESS: Patient denies any pain. He is asking to eat more. He is status post ERCP with stent and 2 stones removed. He is postop day #4 status post laparoscopic cholecystectomy. No nausea or vomiting reported. Patient is having bowel movements. Afebrile. WBC 8.8 Hgb 11.3 total bili 1 AST 74 ALT 93 alk phos 391 patient is scheduled for discharge today PHYSICAL EXAM: VITAL SIGNS: Reviewed. GENERAL: Well-developed in no acute distress. HEENT: No sclera icterus. Extraocular movements grossly intact. Moist buccal mucosa. Head is atraumatic, normocephalic. ABDOMEN: Soft. Nondistended. Mild Epigastric tenderness NEUROLOGIC: Alert and oriented. Cranial nerves II through XII grossly intact. ASSESSMENT: 1. Acute cholecystitis and choledocholithiasis status post laparoscopic cholecystectomy 2. Ascending cholangitis PLAN: -Patient is stable for discharge from surgical standpoint Physician Chicken Cutter note has been reviewed by physician. Signing provider agrees with the documented findings, assessment, and plan of care. Objective - Vital Signs Vital signs: Vital Signs Temp 98.3 F 12/18/20 01:01 Pulse 70 12/18/20 01:01 Resp 16 12/18/20 01:01 BP 162/74 12/18/20 01:01 Pulse Ox 97 12/18/20 01:01 Intake & Output 12/17/20 12/18/20 12/18/20 18:59 06:59 18:59 Intake Total 875 Output Total 1 1 Balance 874 -1 Intake: IV 475 Oral 400 Output: Stool 1 1 Other: Voiding Method Toilet Toilet Toilet Diaper Diaper Diaper # Voids 1 2 1 # Bowel Movements 1 - Labs CBC & Chem 7: 12/18/20 05:02 12/18/20 05:02 Labs: Abnormal Lab Results - Last 24 Hours (Table) 12/17/20 12/17/20 12/17/20 Range/Units 11:24 12:36 13:36 RBC (4.30-5.90) m/uL Hgb (13.0-17.5) gm/dL Hct (39.0-53.0) % Chloride (98-107) mmol/L Creatinine (0.66-1.25) mg/dL Glucose (74-99) mg/dL POC Glucose (mg/dL) 170 H 196 H 226 H (75-99) mg/dL AST (17-59) U/L ALT (4-49) U/L Alkaline Phosphatase (38-126) U/L Total Protein (6.3-8.2) g/dL Albumin (3.5-5.0) g/dL 12/17/20 12/17/20 12/18/20 Range/Units 17:17 20:27 05:02 RBC 3.64 L (4.30-5.90) m/uL Hgb 11.3 L (13.0-17.5) gm/dL Hct 33.9 L (39.0-53.0) % Chloride (98-107) mmol/L Creatinine (0.66-1.25) mg/dL Glucose (74-99) mg/dL POC Glucose (mg/dL) 239 H 333 H (75-99) mg/dL AST (17-59) U/L ALT (4-49) U/L Alkaline Phosphatase (38-126) U/L Total Protein (6.3-8.2) g/dL Albumin (3.5-5.0) g/dL 12/18/20 12/18/20 Range/Units 05:02 07:19 RBC (4.30-5.90) m/uL Hgb (13.0-17.5) gm/dL Hct (39.0-53.0) % Chloride 108 H (98-107) mmol/L Creatinine 1.92 H (0.66-1.25) mg/dL Glucose 161 H (74-99) mg/dL POC Glucose (mg/dL) 178 H (75-99) mg/dL AST 74 H (17-59) U/L ALT 93 H (4-49) U/L Alkaline Phosphatase 391 H (38-126) U/L Total Protein 5.5 L (6.3-8.2) g/dL Albumin 2.8 L (3.5-5.0) g/dL
[2020-12-18 11:42] LABS: Glucose,Whole Blood 287 mg/dL (75-99)
[2020-12-18] MEDS: SODIUM CHLORIDE 0.9% 1,000 ML IV SCH (12:33)
[2020-12-18 13:05] VITALS: PULSE 79
--- NOTE | 2020-12-18 14:25 | P.PN ---
Subjective Progress Note Date: 12/18/20 Principal diagnosis: Epigastric pain, Elevated LFTs, hyperbilirubinemia Patient was seen and examined sitting up in his bed. He denies any abdominal pain, nausea, or vomiting. He is status post cholecystectomy and ERCP for stent removal and stone extraction. His LFTs continued to trend down. He is tolerating a regular diet. He remains on IV antibiotics. Objective - Vital Signs Vital signs: Vital Signs Temp 98.3 F 12/18/20 01:01 Pulse 70 12/18/20 01:01 Resp 16 12/18/20 01:01 BP 162/74 12/18/20 01:01 Pulse Ox 97 12/18/20 01:01 Intake & Output 12/17/20 12/18/20 12/18/20 18:59 06:59 18:59 Intake Total 875 Output Total 1 1 Balance 874 -1 Intake: IV 475 Oral 400 Output: Stool 1 1 Other: Voiding Method Toilet Toilet Toilet Diaper Diaper Diaper # Voids 1 2 1 # Bowel Movements 1 - Exam General appearance: The patient is alert, oriented, appears in no acute distr ess. Obese. HET: Head is normocephalic and atraumatic. Conjunctiva pink. Sclera anicteric. Neck: Supple without lymphadenopathy. Abdomen: Soft, tender, surgical incisions clean dry and intact, nondistended with bowel sounds. No guarding or rigidity. Extremities: Normal skin color and turgor. No pedal edema Skin: No rashes, no jaundice Neurological: No focal deficits. Alert and oriented 3. - Labs CBC & Chem 7: 12/18/20 05:02 12/18/20 05:02 Labs: Abnormal Lab Results - Last 24 Hours (Table) 12/17/20 12/17/20 12/17/20 Range/Units 11:24 12:36 13:36 RBC (4.30-5.90) m/uL Hgb (13.0-17.5) gm/dL Hct (39.0-53.0) % Chloride (98-107) mmol/L Creatinine (0.66-1.25) mg/dL Glucose (74-99) mg/dL POC Glucose (mg/dL) 170 H 196 H 226 H (75-99) mg/dL AST (17-59) U/L ALT (4-49) U/L Alkaline Phosphatase (38-126) U/L Total Protein (6.3-8.2) g/dL Albumin (3.5-5.0) g/dL 12/17/20 12/17/20 12/18/20 Range/Units 17:17 20:27 05:02 RBC 3.64 L (4.30-5.90) m/uL Hgb 11.3 L (13.0-17.5) gm/dL Hct 33.9 L (39.0-53.0) % Chloride (98-107) mmol/L Creatinine (0.66-1.25) mg/dL Glucose (74-99) mg/dL POC Glucose (mg/dL) 239 H 333 H (75-99) mg/dL AST (17-59) U/L ALT (4-49) U/L Alkaline Phosphatase (38-126) U/L Total Protein (6.3-8.2) g/dL Albumin (3.5-5.0) g/dL 12/18/20 12/18/20 Range/Units 05:02 07:19 RBC (4.30-5.90) m/uL Hgb (13.0-17.5) gm/dL Hct (39.0-53.0) % Chloride 108 H (98-107) mmol/L Creatinine 1.92 H (0.66-1.25) mg/dL Glucose 161 H (74-99) mg/dL POC Glucose (mg/dL) 178 H (75-99) mg/dL AST 74 H (17-59) U/L ALT 93 H (4-49) U/L Alkaline Phosphatase 391 H (38-126) U/L Total Protein 5.5 L (6.3-8.2) g/dL Albumin 2.8 L (3.5-5.0) g/dL Assessment and Plan (1) Elevated LFTs Narrative/Plan: Is a patient who presented to the hospital with acute onset of severe epigastric pain and lower sternal chest pain that started yesterday afternoon was noted to have elevated LFTs and mild jaundice. Ultrasound showed possible small internal echoes in the gallbladder, but no definite stones noted and dilated common bile duct. Biochemical picture suspicious for ascending cholangitis possibly related to CBD stones. He is status post ERCP with stent, cholecystectomy and repeat ERCP with stent removal and stone extraction. LFTs continue to trend down. Patient is doing well and may be discharged home. Current Visit: Yes Status: Acute Code(s): R79.89 - OTHER SPECIFIED ABNORMAL FINDINGS OF BLOOD CHEMISTRY SNOMED Code(s): 515698041 (2) Hyperbilirubinemia Current Visit: Yes Status: Acute Code(s): E80.6 - OTHER DISORDERS OF BILIRUBIN METABOLISM SNOMED Code(s): 59145801 (3) Common bile duct dilation Current Visit: Yes Status: Acute Code(s): K83.8 - OTHER SPECIFIED DISEASES O F BILIARY TRACT SNOMED Code(s): 314372092 (4) Hypertension Current Visit: No Status: Acute Code(s): I10 - ESSENTIAL (PRIMARY) HYPERTENSION SNOMED Code(s): 68022390 Plan: 1. Supportive care 2. Diet as tolerated 3. Daily CBC, CMP 4. Patient is status post ERCP with stent removal and stone extraction 5. Patient is status post cholecystectomy Thank you for this consult, patient may be discharged home from a gastro enterology standpoint. He can follow-up with gastroenterology on a as needed basis. Dr. Dozier I agree with the dictator's note, documented as a scribe by Destiney Cook.
[2020-12-18 14:53] VITALS: BMI 33.1
[2020-12-18 15:36] VITALS: BP 147/71; RESP 16; TEMP 97.6
--- NOTE | 2020-12-20 15:48 | P.DS ---
Providers Date of admission: 12/12/20 22:01 Expected date of discharge: 12/18/20 Attending physician: Tadeo Dickersno Consults: 12/11/20 20:43 Consult Physician Routine Consulting Provider: Ciro Lmeus Consult Reason/Comments: Dilated common bile duct, abdominal pain, hyperbilirubinemia Do you want consulting provider notified?: Yes Consult Physician Routine Consulting Provider: Suki Fischer Consult Reason/Comments: Hyperbilirubinemia, transaminitis, dilated common bile duct Do you want consulting provider notified?: Yes Primary care physician: [facility] Course: Chief Complaint: Abdominal pain History of presenting complaint: This is a 75-year-old patient of Dr. Santana. Chronic stable medical conditions include hyperlipidemia, diabetes, obstructive sleep apnea, osteoarthritis, kidney stones, cognitive impairment-dementia. 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 KARISHMA-did not show any embolic source/Preserved LV function. Normal valves. MRI of the brain did show acute ischemic change within the left parietal occipital watershed area. Additional focal area of acute ischemic change in the right frontal lobe. MRA of the brain was unremarkable. 2-D echocardiogram showed EF of 55%. Normal LV function. Carotid Doppler was unremarkable. residual right-sided weakness.- assistance with walking. Patient has a loop recorder placed because multiple episodes of decreased responsiveness since July. This time patient's presents with an episode as described by his daughter to the neurologist Dr. Hall: "She stated, today where he complains of a headache, he lost his vision at 10am (could not see out of left eye) then non-responsiveness. His episode of not respoding lasted 5 minutes. No jerking of any extremities. No foaming around the mouth. No urinary or bowel incontinence. He has a similiar episode this past lasting 5 minutes but refused to seek medical attention. He usually have these episode in the morning. After these episodes the feels generalized fatigue and going to sleep for 1 hour. Prior to the episode he complains of headache. ". Patient himself is not a good historian. Patient is similar episode a week ago. On November 03 admitted with a diagnoses of seizure. Found to have a stenosis in the carotid siphon. Supposed to follow-up with neuro-torch straightener Dr. Ray. Started on Keppra. Admitted to the ER. The daughter gives the history that patient the previous test out of of increasing epigastric pain that became significant worse Vomiting. No fever. He was noted to be jaundice with increased LFTs. Also ER showed a distended gallbladder with a large common bile duct. Underwent ERCP by Dr. Max Fischer. CBD stent was placed. December 14: Cholecystectomy.ERCP: CBD stent was removed. Sphincterotomy with stone extraction was done. Patient doing well. Tolerating diet. No nausea vomiting. No abdominal pain. Consultation: Dr. Maldonado in [facility] from GI Dr. Lemus/Dr. Owens from general surgery Past medical history to include: Diabetes, hyperlipidemia, hypertension, obstructive sleep apnea, osteoarthritis, kidney stones, cognitive impairment, stroke hypertension with right-sided weakness, depression, seizure Social history: No history of smoking or alcohol. Lives with his . Physical examination: VITAL SIGNS: 97.6, 79, 16, 1 47 x 71, 98% room air GENERAL: Comfortable EYES: Pupils equal. Conjunctiva normal. HEENT: External appearance of nose and ears normal, oral cavity grossly normal. NECK: JVD not raised; masses not palpable. HEART: First and second heart sounds are normal; no edema. LUNGS: Respiratory rate normal; clear to auscultation. ABDOMEN: Soft, no tenderness, no guarding rigidity, liver spleen not palpable, no masses palpable. PSYCH: answering simple questions INVESTIGATIONS, reviewed in the clinical context: December 18: W BC 8.8 hemoglobin 11.3 potassium 4.2 creatinine 1.9 to AST 74 ALT 93 December 16: Potassium 4.2 creatinine 2.1 total bilirubin 0.7 AST 39 ALT 112 December 14: WBC 8.2 hemoglobin 13.4 creatinine 2.15 AST 125 ALT 221 December 13: WBC 10.9 hemoglobin 12.5 potassium 4 creatinine 2.28 WBC 28.1 hemoglobin 13 platelets 249 potassium 4.5 bun 39 creatinine 2.43. Total bilirubin 3 AST 9148 ALT 510 alkaline phosphatase 270 Admitting labs: WBC 14.9 hemoglobin 14.4 potassium 4.4 bun 38 creatinine 2.05 AST 257 ALT 108 alkaline phosphatase 234. Total bilirubin 2.0 Coronavirus [PCR]-not detected Amylase 53 lipase 203 EKG tracing personally reviewed by me-normal sinus rhythm Ultrasound gallbladder: Possible internal echoes. Wall up in limit of normal. CBD 1.23 cm. Previous labs: Bun 37 creatinine 1.99 on every 03/17/2021 Assessment and plan: -Symptomatic gallstones. ERCP: CBD stented. Followed by Cholecystectomy. CBD stent removed along with sphincterotomy and stone extraction. -Seizure disorder, on antiepileptic drugs -essential hypertension, on Cozaar, Catapres, Norvasc - stroke in the left parieto-occipital area on 07/07/2020, on aspirin, Plavix -Possible significant stenosis in the left carotid siphon.-To follow-up with neuro-torch straightener Dr. ray -Obesity BMI 33.1. For weight loss measures as an outpatient. Follow-up with PCP. 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 Follow Accu-Cheks closely. -Depression otherwise specified-On Cymbalta -Hyperlipidemia-On Lipitor -Chronic kidney disease stage III from hypertensive nephrosclerosis and diabetic nephropathy-Follow renal function Disposition: Home Patient Condition at Discharge: Stable Plan - Discharge Summary Discharge Rx Participant: No New Discharge Prescriptions: New HYDROcodone/APAP 5-325MG [Atkinson 5-325] 1 tab PO Q6HR PRN 2 Days #8 tab PRN Reason: Pain Amoxicillin/Potassium Clav [Augmentin 875-125 Tablet] 1 tab PO Q12HR 5 Days #10 tab Continue Isosorbide Mononitrate ER [Imdur] 60 mg PO DAILY cloNIDine HCL [Catapres] 0.2 mg PO TID DULoxetine HCL [Cymbalta] 30 mg PO HS Losartan [Cozaar] 50 mg PO HS Albuterol Nebulized [Ventolin Nebulized] 2.5 mg INHALATION RT-QID PRN PRN Reason: Shortness Of Breath Omeprazole 20 mg PO DAILY Aspirin 81 mg PO DAILY #30 chewable Clopidogrel [Plavix] 75 mg PO DAILY #30 tab amLODIPine [Norvasc] 10 mg PO HS #30 tab Canagliflozin [Invokana] 300 mg PO DAILY Dulaglutide [Trulicity] 1.5 mg SQ SA Atorvastatin [Lipitor] 80 mg PO HS #30 tab Cholecalciferol [Vitamin D3 (25 Mcg = 1000 Iu)] 50 mcg PO DAILY Ergocalciferol (Vitamin D2) [Drisdol (50,000 Iu)] 1,250 mcg PO FR levETIRAcetam [Keppra] 500 mg PO BID Napoleon-3 Fatty Acids/Fish Oil [Fish Oil 1,000 mg Softgel] 1 cap PO DAILY Furosemide [Lasix] 40 mg PO DAILY #0 Changed Insulin Glargine [Lantus] 26 unit SQ DAILY #0 INSULIN ASPART (NovoLOG) [NovoLOG (formulary)] 5 unit SQ TID #0 Discontinued INSULIN ASPART (NovoLOG) [NovoLOG (formulary)] See Protocol SQ AC-TID PRN PRN Reason: Blood Sugar - High INSULIN ASPART (NovoLOG) [NovoLOG (formulary)] 12 unit SQ W/SUPPER Discharge Medication List DULoxetine HCL [Cymbalta] 30 mg PO HS 03/13/16 [History] Isosorbide Mononitrate ER [Imdur] 60 mg PO DAILY 03/13/16 [History] cloNIDine HCL [Catapres] 0.2 mg PO TID 03/13/16 [History] Albuterol Nebulized [Ventolin Nebulized] 2.5 mg INHALATION RT-QID PRN 07/08/20 [History] Losartan [Cozaar] 50 mg PO HS 07/08/20 [History] Omeprazole 20 mg PO DAILY 07/08/20 [History] Aspirin 81 mg PO DAILY #30 chewable 07/11/20 [Rx] Clopidogrel [Plavix] 75 mg PO DAILY #30 tab 07/11/20 [Rx] amLODIPine [Norvasc] 10 mg PO HS #30 tab 07/14/20 [Rx] Canagliflozin [Invokana] 300 mg PO DAILY 11/03/20 [History] Dulaglutide [Trulicity] 1.5 mg SQ SA 11/03/20 [History] Atorvastatin [Lipitor] 80 mg PO HS #30 tab 11/05/20 [Rx] Cholecalciferol [Vitamin D3 (25 Mcg = 1000 Iu)] 50 mcg PO DAILY 12/11/20 [History] Ergocalciferol (Vitamin D2) [Drisdol (50,000 Iu)] 1,250 mcg PO FR 12/11/20 [History] Napoleon-3 Fatty Acids/Fish Oil [Fish Oil 1,000 mg Softgel] 1 cap PO DAILY 12/11/20 [History] levETIRAcetam [Keppra] 500 mg PO BID 12/11/20 [History] Amoxicillin/Potassium Clav [Augmentin 875-125 Tablet] 1 tab PO Q12HR 5 Days #10 tab 12/18/20 [Rx] Furosemide [Lasix] 40 mg PO DAILY #0 12/18/20 [Rx] HYDROcodone/APAP 5-325MG [Atkinson 5-325] 1 tab PO Q6HR PRN 2 Days #8 tab 12/18/20 [Rx] INSULIN ASPART (NovoLOG) [NovoLOG (formulary)] 5 unit SQ TID #0 12/18/20 [Rx] Insulin Glargine [Lantus] 26 unit SQ DAILY #0 12/18/20 [Rx] Follow up Appointment(s)/Referral(s): Dennis Santana DO [Primary Care Provider] - 12/20/20 4:20 pm Suki Fischer MD [STAFF PHYSICIAN] - 01/07/21 10:15 am Ciro Lemus MD [STAFF PHYSICIAN] - 12/27/20 2:30 pm Patient Instructions/Handouts: Acute Kidney Injury (DC), Endoscopic Biliary Stent Placement (DC) Activity/Diet/Wound Care/Special Instructions: diabetic soft bland Discharge Disposition: HOME SELF-CARE
== END 2020-12-18 15:20 | disposition home or self-care (01) | DRG 418 ==
LOC: EC 17:08 → 6NMEDSUR 20:42 → OBSVTOIN 12-12 22:01
PROVIDERS: ADMIT Hospitalist; ATTEND Hospitalist
PROC: 0F798DZ Dilation of Common Bile Duct with Intraluminal Device, Via Natural or Artificial Opening Endoscopic (ICD-10-PCS; 2020-12-12)
PROC: 0FT44ZZ Resection of Gallbladder, Percutaneous Endoscopic Approach (ICD-10-PCS; principal; 2020-12-14 10:25)
PROC: 0FPB8DZ Removal of Intraluminal Device from Hepatobiliary Duct, Via Natural or Artificial Opening Endoscopic (ICD-10-PCS; 2020-12-17)
PROC: 0F798ZZ Dilation of Common Bile Duct, Via Natural or Artificial Opening Endoscopic (ICD-10-PCS; 2020-12-17)
PROC: 0FC98ZZ Extirpation of Matter from Common Bile Duct, Via Natural or Artificial Opening Endoscopic (ICD-10-PCS; 2020-12-17)
DX: K80.43 Calculus of bile duct with acute cholecystitis with obstruction (principal); N17.9 Acute kidney failure, unspecified; I69.351 Hemiplegia and hemiparesis following cerebral infarction affecting right dominant side; E11.40 Type 2 diabetes mellitus with diabetic neuropathy, unspecified; E11.22 Type 2 diabetes mellitus with diabetic chronic kidney disease; F01.50 Vascular dementia, unspecified severity, without behavioral disturbance, psychotic disturbance, mood disturbance, and anxiety; G40.909 Epilepsy, unspecified, not intractable, without status epilepticus; N18.30 Chronic kidney disease, stage 3 unspecified; Z79.4 Long term (current) use of insulin; Z20.822 Contact with and (suspected) exposure to COVID-19; I12.9 Hypertensive chronic kidney disease with stage 1 through stage 4 chronic kidney disease, or unspecified chronic kidney disease; E86.0 Dehydration; I69.311 Memory deficit following cerebral infarction; I69.398 Other sequelae of cerebral infarction; H53.9 Unspecified visual disturbance; F32.9 Major depressive disorder, single episode, unspecified; E78.5 Hyperlipidemia, unspecified; G47.33 Obstructive sleep apnea (adult) (pediatric); E80.6 Other disorders of bilirubin metabolism; K76.9 Liver disease, unspecified; K21.9 Gastro-esophageal reflux disease without esophagitis; R32 Unspecified urinary incontinence; M19.90 Unspecified osteoarthritis, unspecified site; E66.9 Obesity, unspecified; Z68.33 Body mass index [BMI] 33.0-33.9, adult; Z79.82 Long term (current) use of aspirin; Z79.02 Long term (current) use of antithrombotics/antiplatelets; Z79.899 Other long term (current) drug therapy; Z87.442 Personal history of urinary calculi; Z87.2 Personal history of diseases of the skin and subcutaneous tissue; Z71.3 Dietary counseling and surveillance; Z83.3 Family history of diabetes mellitus; Z80.9 Family history of malignant neoplasm, unspecified
CPT/HCPCS: 36415; 43262; 43264; 43274; 71045; 74328; 74330; 76705; 80053; 82150; 83605; 83690; 83735; 84484; 85025; 85610; 85730; 87635; 88304; 93005; 94760; 99285

== ENCOUNTER 2021-07-18 12:56 | Observation (INO) | payer MEDICARE ==
[2021-07-18] MEDS ORDERED: SODIUM CHLORIDE 0.9% 1,000 ML IV STA (13:05)
[2021-07-18] MEDS ORDERED: DIPHENOX-ATROP 2.5-0.025 MG 1 EACH TAB PO STA (13:05)
--- NOTE | 2021-07-18 13:11 | ED ---
General Adult HPI - General Chief complaint: Weakness Stated complaint: Weakness Source: family, EMS Mode of arrival: EMS Limitations: language barrier - History of Present Illness Initial comments: This is a 75-year-old male with past medical history significant for stroke. Daughter called EMS because the patient has been weaker in general over the last week also somewhat lightheaded and yesterday had a fall that was no injury today he was again very weak and a little more lethargic according to the family so they wanted him to be seen in the hospital. Family also stated he had some altered mental status. Patient also had some diarrhea today. Initial report was that he had some slurred speech that was no daughter states that is not true she states the slurred speech is been ongoing since his previous stroke. Patient does complain of headache. Patient denies any chest pain patient denies any difficulty breathing patient denies abdominal pain patient denies any vomiting. Patient denies any recent fever chills or cough. - Related Data Home Medications Medication Instructions Recorded Confirmed DULoxetine HCL [Cymbalta] 30 mg PO HS 03/13/16 07/18/21 Isosorbide Mononitrate ER [Imdur] 60 mg PO DAILY 03/13/16 07/18/21 cloNIDine HCL [Catapres] 0.2 mg PO TID 03/13/16 07/18/21 Albuterol Nebulized [Ventolin 2.5 mg INHALATION RT-QID PRN 07/08/20 07/18/21 Nebulized] Omeprazole 20 mg PO DAILY 07/08/20 07/18/21 Canagliflozin [Invokana] 300 mg PO DAILY 11/03/20 07/18/21 Dulaglutide [Trulicity] 1.5 mg SQ SA 11/03/20 07/18/21 Ergocalciferol (Vitamin D2) 1,250 mcg PO FR 12/11/20 07/18/21 [Drisdol (50,000 Iu)] [place]-3 Fatty Acids/Fish Oil [Fish 1 cap PO DAILY@1500 12/11/20 07/18/21 Oil 1,000 mg Softgel] levETIRAcetam [Keppra] 500 mg PO BID 12/11/20 07/18/21 Atorvastatin [Lipitor] 20 mg PO HS 07/18/21 07/18/21 INSULIN ASPART (NovoLOG) [NovoLOG 5 unit SQ AC-BID@0800,1200 07/18/21 07/18/21 (formulary)] INSULIN ASPART (NovoLOG) [NovoLOG 12 unit SQ AC-SUPPER 07/18/21 07/18/21 (formulary)] INSULIN ASPART (NovoLOG) [NovoLOG See Protocol SQ AC-TID PRN 07/18/21 07/18/21 (formulary)] Insulin Glargine [Lantus Vial] 36 unit SQ DAILY 07/18/21 07/18/21 Losartan Potassium [Cozaar] 100 mg PO HS 07/18/21 07/18/21 Vit C/E/Zn/Coppr/Lutein/Zeaxan 1 cap PO BID@1500,2100 07/18/21 07/18/21 [Preservision Areds 2 Softgel] Previous Rx's Medication Instructions Recorded Clopidogrel [Plavix] 75 mg PO DAILY #30 tab 07/11/20 amLODIPine [Norvasc] 10 mg PO HS #30 tab 07/14/20 Furosemide [Lasix] 40 mg PO DAILY #0 12/18/20 Allergies Allergy/AdvReac Type Severity Reaction Status Date / Time No Known Allergies Allergy Verified 07/18/21 13:42 Review of Systems ROS Statement: Those systems with pertinent positive or pertinent negative responses have been documented in the HPI. ROS Other: All systems not noted in ROS Statement are negative. Past Medical History Past Medical History: CVA/TIA, Diabetes Mellitus, Hyperlipidemia, Hypertension, Liver Disease, Renal Disease, Sleep Apnea/CPAP/BIPAP Additional Past Medical History / Comment(s): ARTHRITIS, kidney stones, possible dementia, kidney failure, neuropathy alia legs, carpal tunnel. CVA-oct 20 balance issues,speech impairment,vision impairment, receives injections to eyes r/t bleeding History of Any Multi-Drug Resistant Organisms: None Reported Past Surgical History: Back Surgery Additional Past Surgical History / Comment(s): MASS REMOVED FROM BACK OF HEAD, eye surgery, Past Anesthesia/Blood Transfusion Reactions: No Reported Reaction Past Psychological History: Depression Smoking Status: Never smoker Past Alcohol Use History: None Reported Past Drug Use History: None Reported - Past Family History Father Family Medical History: Diabetes Mellitus Mother Family Medical History: Diabetes Mellitus Brother(s) Family Medical History: Cancer Sister(s) Family Medical History: Cancer General Exam - General Exam Comments Initial Comments: GENERAL: Patient is well-developed and well-nourished. Patient is nontoxic and well- hydrated and is in mild distress. ENT: Neck is soft and supple. No significant lymphadenopathy is noted. Oropharynx is clear. Moist mucous membranes. Neck has full range of motion without eliciting any pain. EYES: The sclera were anicteric and conjunctiva were pink and moist. Extraocular movements were intact and pupils were equal round and reactive to light. Eyelids were unremarkable. PULMONARY: Unlabored respirations. Good breath sounds bilaterally. No audible rales rhonchi or wheezing was noted. CARDIOVASCULAR: There is a regular rate and rhythm without any murmurs gallops or rubs. ABDOMEN: Soft and nontender with normal bowel sounds. SKIN: Skin is clear with no lesions or rashes and otherwise unremarkable. NEUROLOGIC: Patient is alert and oriented x3. Cranial nerves II through XII are grossly intact. Motor and sensory are also intact. Normal speech, volume and content. Symmetrical smile. MUSCULOSKELETAL: Normal extremities with adequate strength and full range of motion. LYMPHATICS: No significant lymphadenopathy is noted PSYCHIATRIC: Normal psychiatric evaluation. Limitations: language barrier Course Vital Signs 07/18/21 12:58 Temperature 98.7 F Pulse Rate 73 Respiratory 18 Rate Blood Pressure 135/88 O2 Sat by Pulse 97 Oximetry Medical Decision Making - Medical Decision Making EKG shows normal sinus rhythm at 74 bpm MN interval 262 QRS is 96 Q-T intervals 374 QTC is 4:15. Patient's EKG shows no ST segment elevation or depression. CT of the brain shows no acute abnormality. Chest x-ray shows no acute abnormality. I spoke to the family they were uncomfortable bringing the patient home when he is unstable on his feet. I spoke with Dr. Dickerson agreed to admit the patient admitted the patient wrote admitting orders. - Lab Data Result diagrams: 07/18/21 13:21 07/18/21 13:21 Lab Results 07/18/21 07/18/21 07/18/21 Range/Units 13:21 13:21 13:21 WBC 9.1 (3.8-10.6) k/uL RBC 4.50 (4.30-5.90) m/uL Hgb 13.4 (13.0-17.5) gm/dL Hct 42.2 (39.0-53.0) % MCV 93.7 (80.0-100.0) fL MCH 29.7 (25.0-35.0) pg MCHC 31.7 (31.0-37.0) g/dL RDW 13.3 (11.5-15.5) % Plt Count 289 (150-450) k/uL MPV 7.9 Neutrophils % 65 % Lymphocytes % 27 % Monocytes % 5 % Eosinophils % 1 % Basophils % 1 % Neutrophils # 5.9 (1.3-7.7) k/uL Lymphocytes # 2.4 (1.0-4.8) k/uL Monocytes # 0.5 (0-1.0) k/uL Eosinophils # 0.1 (0-0.7) k/uL Basophils # 0.1 (0-0.2) k/uL PT 10.1 (9.0-12.0) sec INR 0.9 (<1.2) APTT 23.8 (22.0-30.0) sec Sodium 138 (137-145) mmol/L Potassium 4.4 (3.5-5.1) mmol/L Chloride 105 (98-107) mmol/L Carbon Dioxide 23 (22-30) mmol/L Anion Gap 10 mmol/L BUN 39 H (9-20) mg/dL Creatinine 1.94 H (0.66-1.25) mg/dL Est GFR (CKD-EPI)AfAm 38 (>60 ml/min/1.73 sqM) Est GFR (CKD-EPI)NonAf 33 (>60 ml/min/1.73 sqM) Glucose 199 H (74-99) mg/dL Calcium 9.2 (8.4-10.2) mg/dL Total Bilirubin 0.4 (0.2-1.3) mg/dL AST 24 (17-59) U/L ALT 20 (4-49) U/L Alkaline Phosphatase 141 H (38-126) U/L Troponin I (0.000-0.034) ng/mL Total Protein 6.7 (6.3-8.2) g/dL Albumin 3.7 (3.5-5.0) g/dL Urine Color Urine Appearance (Clear) Urine pH (5.0-8.0) Ur Specific [place] (1.001-1.035) Urine Protein (Negative) Urine Glucose (UA) (Negative) Urine Ketones (Negative) Urine Blood (Negative) Urine Nitrite (Negative) Urine Bilirubin (Negative) Urine Urobilinogen (<2.0) mg/dL Ur Leukocyte Esterase (Negative) Urine WBC (0-5) /hpf Ur Squamous Epith Cells (0-4) /hpf Urine Mucus (None) /hpf Coronavirus (PCR) (Not Detectd) 07/18/21 07/18/21 07/18/21 Range/Units 13:21 14:00 15:50 WBC (3.8-10.6) k/uL RBC (4.30-5.90) m/uL Hgb (13.0-17.5) gm/dL Hct (39.0-53.0) % MCV (80.0-100.0) fL MCH (25.0-35.0) pg MCHC (31.0-37.0) g/dL RDW (11.5-15.5) % Plt Count (150-450) k/uL MPV Neutrophils % % Lymphocytes % % Monocytes % % Eosinophils % % Basophils % % Neutrophils # (1.3-7.7) k/uL Lymphocytes # (1.0-4.8) k/uL Monocytes # (0-1.0) k/uL Eosinophils # (0-0.7) k/uL Basophils # (0-0.2) k/uL PT (9.0-12.0) sec INR (<1.2) APTT (22.0-30.0) sec Sodium (137-145) mmol/L Potassium (3.5-5.1) mmol/L Chloride (98-107) mmol/L Carbon Dioxide (22-30) mmol/L Anion Gap mmol/L BUN (9-20) mg/dL Creatinine (0.66-1.25) mg/dL Est GFR (CKD-EPI)AfAm (>60 ml/min/1.73 sqM) Est GFR (CKD-EPI)NonAf (>60 ml/min/1.73 sqM) Glucose (74-99) mg/dL Calcium (8.4-10.2) mg/dL Total Bilirubin (0.2-1.3) mg/dL AST (17-59) U/L ALT (4-49) U/L Alkaline Phosphatase (38-126) U/L Troponin I <0.012 (0.000-0.034) ng/mL Total Protein (6.3-8.2) g/dL Albumin (3.5-5.0) g/dL Urine Color Light Yellow Urine Appearance Clear (Clear) Urine pH 5.0 (5.0-8.0) Ur Specific [place] 1.007 (1.001-1.035) Urine Protein 1+ H (Negative) Urine Glucose (UA) 4+ H (Negative) Urine Ketones Negative (Negative) Urine Blood Negative (Negative) Urine Nitrite Negative (Negative) Urine Bilirubin Negative (Negative) Urine Urobilinogen <2.0 (<2.0) mg/dL Ur Leukocyte Esterase Negative (Negative) Urine WBC 1 (0-5) /hpf Ur Squamous Epith Cells <1 (0-4) /hpf Urine Mucus Rare H (None) /hpf Coronavirus (PCR) Not Detected (Not Detectd) Disposition Clinical Impression: Altered mental status, Generalized weakness Disposition: ADMITTED IP TO THIS [facility] Referrals: Dennis Santana DO [Primary Care Provider] - 1-2 days Time of Disposition: 17:07
[2021-07-18 13:42] LABS: Basophils # (A) 0.1 k/uL (0-0.2); Basophils % (A) 1 %; Eosinophils # (A) 0.1 k/uL (0-0.7); Eosinophils % (A) 1 %; HCT 42.2 % (39.0-53.0); HGB 13.4 gm/dL (13.0-17.5); Lymphocytes # (A) 2.4 k/uL (1.0-4.8); Lymphocytes % (A) 27 %; MCH 29.7 pg (25.0-35.0); MCHC 31.7 g/dL (31.0-37.0); MCV 93.7 fL (80.0-100.0); Mean Platelet Volume 7.9; Monocytes # (A) 0.5 k/uL (0-1.0); Monocytes % (A) 5 %; Neutrophils # (A) 5.9 k/uL (1.3-7.7); Neutrophils % (A) 65 %; Platelet Count 289 k/uL (150-450); RDW 13.3 % (11.5-15.5); WBC 9.1 k/uL (3.8-10.6)
[2021-07-18 13:54] LABS: Albumin 3.7 g/dL (3.5-5.0); Calcium 9.2 mg/dL (8.4-10.2); INR 0.9 (<1.2); Partial Thromboplastin Time 23.8 sec (22.0-30.0); Potassium 4.4 mmol/L (3.5-5.1); Prothrombin Time 10.1 sec (9.0-12.0); Total Bilirubin 0.4 mg/dL (0.2-1.3); Total Protein 6.7 g/dL (6.3-8.2)
--- NOTE | 2021-07-18 14:09 | CT ---
EXAMINATION TYPE: CT brain wo con for TPA DATE OF EXAM: 07/18/2021 COMPARISON: 11/03/2020 HISTORY: 75-year-old male neurologic deficit, acute, stroke suspected, Weakness and confusion TECHNIQUE: Examination was done in axial plane without intravenous contrast. Coronal and sagittal r econstructions performed. CT DLP: 1217.4 mGycm Automated exposure control for dose reduction was used. FINDINGS: There is redemonstrated encephalomalacia left parietal lobe. New cortical and subcortical hypodensity anterior right parietal lobe extending down to the atrium of the right lateral ventricle. Subtle hypodensity extends to the right parieto-occipital junction. No evidence for acute intracranial hemorrhage, mass, mass effect, midline shift, or extra-axial fluid collection. Mild ventricular prominence secondary to central cerebral atrophy. Benign basal ganglia calcification s on the right. Old lacunar infarct left thalamus and stable patchy left subinsular white matter hypodensity. Air-fluid level right sphenoid sinus. Mastoid air cells well pneumatized. Orbits and globes are intac t. IMPRESSION: 1. Cortical and subcortical hypodensity anterior right parietal lobe and right parieto-occipital junc tion. Findings suggest an area of subacute versus chronic infarct, though new from 11/03/2020. Correlat e as to time since onset of symptoms. The degree of hypodensity suggests insult greater than 6 hours in duration. 2. Old left parietal lobe infarct/encephalomalacia. 3. No acute intracranial hemorrhage or midline shift. 4. Air-fluid level right sinus. Correlate to exclude acute sinusitis.
--- NOTE | 2021-07-18 14:11 | XR ---
EXAMINATION TYPE: XR chest 2V DATE OF EXAM: 07/18/2021 COMPARISON: 12/11/2020 HISTORY: Shortness of breath TECHNIQUE: Frontal and lateral views of the chest are obtained. FINDINGS: Scattered senescent parenchymal changes noted. Hyperinflation compatible with COPD. No evidence for infiltrate. No evidence for atelectasis. Heart size is stable. Mediastinal structures are stable and grossly unremarkable. No evidence for hilar prominence. Degenerative changes dorsal spine. IMPRESSION: 1. No evidence for acute pulmonary disease.
[2021-07-18 14:52] LABS: Appearance,Urine Clear (Clear); Bilirubin,Urine Negative (Negative); Blood,Urine Negative (Negative); Color,Urine Light Yellow; Glucose,Urine (UA) 4+ (Negative); Ketones,Urine Negative (Negative); Leukocyte Esterase,Urine Negative (Negative); Mucus,Urine Rare /hpf; Nitrite,Urine Negative (Negative); Protein,Urine 1+ (Negative); Specific Gravity,Urine 1.007 (1.001-1.035); Squamous Epithelial Cell,Urine <1 /hpf (0-4); Urobilinogen,Urine <2.0 mg/dL (<2.0); WBC,Urine 1 /hpf (0-5)
[2021-07-18] MEDS ORDERED: SODIUM CHLORIDE 0.9% 1,000 ML IV ONE (17:07)
[2021-07-18 18:56] LABS: Glucose,Whole Blood 168 mg/dL (75-99)
[2021-07-18] MEDS ORDERED: ALBUTEROL NEBULIZED 2.5 MG/3 ML INHALATION PRN (19:17)
[2021-07-18] MEDS ORDERED: MAG HYDROX/AL HYDROX/SIMETH 30 ML CUP PO PRN (19:19)
[2021-07-18] MEDS ORDERED: NALOXONE 0.4 MG/ML 1 ML VIAL IV PRN (19:19)
[2021-07-18] MEDS ORDERED: MELATONIN 3 MG TABLET PO PRN (19:19)
[2021-07-18] MEDS ORDERED: MAGNESIUM HYDROXIDE 2,400 MG/10 ML CUP PO PRN (19:19)
[2021-07-18] MEDS ORDERED: ACETAMINOPHEN TAB 325 MG TAB PO PRN (19:19)
[2021-07-18] MEDS ORDERED: CALCIUM CARBONATE 500 MG CHEWABLE PO PRN (19:19)
[2021-07-18] MEDS ORDERED: LACTULOSE 20 GM/30 ML CUP PO PRN (19:19)
[2021-07-18] MEDS ORDERED: LORazepam 0.5 MG TAB PO PRN (19:19)
[2021-07-18] MEDS ORDERED: ONDANSETRON 4 MG/2 ML VIAL IVP PRN (19:19)
[2021-07-18 21:49] LABS: Glucose,Whole Blood 156 mg/dL (75-99)
[2021-07-18] MEDS: VIT A,C & E-LUTEIN-MINERALS 1 EACH TAB PO SCH (22:06)
[2021-07-18] MEDS: ATORVASTATIN 20 MG TAB PO SCH (22:06)
[2021-07-18] MEDS: DULoxetine HCL 30 MG CAPSULE.DR PO SCH (22:06)
[2021-07-18] MEDS: levETIRAcetam 500 MG TAB PO SCH (22:06)
[2021-07-18] MEDS: cloNIDine HCL 0.2 MG TAB PO SCH (22:06)
[2021-07-18] MEDS: INSULIN ASPART (NovoLOG) 100 UNIT/ML VIAL SQ SCH (22:07)
--- NOTE | 2021-07-18 22:49 | P.HPIM ---
History of Present Illness H&P Date: 07/18/21 Chief Complaint: Not feeling well History of presenting complaint: This is a 75-year-old patient of Dr. Santana. Chronic stable medical conditions include hyperlipidemia, diabetes, obstructive sleep apnea, osteoarthritis, kidney stones, cognitive impairment-dementia. 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 Patient has a loop recorder placed because multiple episodes of decreased responsiveness since July. Seizures. Patient is brought into the ER as the daughter called the EMS. Patient has been feeling weak or or the last week. Somewhat lightheaded. Yesterday to fall. No injury. More lethargic today. Patient been having 2 or 3 bowel movements a day. Slightly soft. Had a baseline patient speech is slow. No fever no chills. Patient himself feels that he is doing okay. This feels a bit tired. No trouble breathing. No abdominal pain Review of systems: GEN.: Tired EYES: None HEENT: None NECK: None RESPIRATORY: None CARDIOVASCULAR: None GASTROINTESTINAL: 2 or 3 bowel movements a day. GENITOURINARY: None MUSCULOSKELETAL: None LYMPHATICS: None HEMATOLOGICAL: None PSYCHIATRY: forgetful NEUROLOGICAL: weakness on the right side Past medical history to include: Diabetes, hyperlipidemia, hypertension, obstructive sleep apnea, osteoarthritis, kidney stones, cognitive impairment, stroke hypertension with right-sided weakness, depression, seizure Social history: No history of smoking or alcohol. Lives with his . Physical examination: VITAL SIGNS: 98.7, 73, 18, 135/88, 97% room air GENERAL: BMI 30.4, laying in bed, awake, tired EYES: Pupils equal. Conjunctiva normal. HEENT: External appearance of nose and ears normal, oral cavity grossly normal. NECK: JVD not raised; masses not palpable. HEART: First and second heart sounds are normal; no edema. LUNGS: Respiratory rate normal; clear to auscultation. ABDOMEN: Soft, upper abdomen tenderness no guarding rigidity, liver spleen not palpable, no masses palpable. PSYCH: answering simple questions NEUROLOGICAL: [Cranial nerves grossly intact; no facial asymmetry, power 4/5 on the right side LYMPHATICS: No lymph nodes palpable in the axilla and neck INVESTIGATIONS, reviewed in the clinical context: WBC 9.1 hemoglobin 13.4 platelets 289 sodium 138 potassium 4.4 BUN 39 creatinine 1.94 Troponin less than 0.012 UA positive for protein 1+ glucose 4+ Coronavirus [PCR]: Not detected EKG tracing personally reviewed by me-normal sinus rhythm. Rate 74/m Chest x-ray film personally reviewed by me-no infiltrate Assessment and plan: -Patient was sent in by the family feeling a bit more tired. Did have a fall yesterday. Has been having 2 or 3 BMs a day. No abdominal pain. No fever no chills. 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 On Levemir, NovoLog Follow Accu-Cheks closely. -Depression otherwise specified Cymbalta -Hyperlipidemia On Lipitor -Chronic kidney disease stage III from hypertensive nephrosclerosis and diabetic nephropathy Follow renal function Gently hydrate the patient. Resume home medications. Check stool for C. diff. On Lasix. Repeat labs. Past Medical History Past Medical History: CVA/TIA, Diabetes Mellitus, Hyperlipidemia, Hypertension, Liver Disease, Renal Disease, Sleep Apnea/CPAP/BIPAP Additional Past Medical History / Comment(s): ARTHRITIS, kidney stones, possible dementia, kidney failure, neuropathy alia legs, carpal tunnel. CVA-jul 17 balance issues,speech impairment,vision impairment, receives injections to eyes r/t bleeding History of Any Multi-Drug Resistant Organisms: None Reported Past Surgical History: Back Surgery Additional Past Surgical History / Comment(s): MASS REMOVED FROM BACK OF HEAD, eye surgery, Past Anesthesia/Blood Transfusion Reactions: No Reported Reaction Past Psychological History: Depression Smoking Status: Never smoker Past Alcohol Use History: None Reported Past Drug Use History: None Reported - Past Family History Father Family Medical History: Diabetes Mellitus Mother Family Medical History: Diabetes Mellitus Brother(s) Family Medical History: Cancer Sister(s) Family Medical History: Cancer Medications and Allergies Home Medications Medication Instructions Recorded Confirmed Type DULoxetine HCL [Cymbalta] 30 mg PO HS 03/13/16 07/18/21 History Isosorbide Mononitrate ER [Imdur] 60 mg PO DAILY 03/13/16 07/18/21 History cloNIDine HCL [Catapres] 0.2 mg PO TID 03/13/16 07/18/21 History Albuterol Nebulized [Ventolin 2.5 mg INHALATION RT-QID PRN 07/08/20 07/18/21 History Nebulized] Omeprazole 20 mg PO DAILY 07/08/20 07/18/21 History Clopidogrel [Plavix] 75 mg PO DAILY #30 tab 07/11/20 07/18/21 Rx amLODIPine [Norvasc] 10 mg PO HS #30 tab 07/14/20 07/18/21 Rx Canagliflozin [Invokana] 300 mg PO DAILY 11/03/20 07/18/21 History Dulaglutide [Trulicity] 1.5 mg SQ SA 11/03/20 07/18/21 History Ergocalciferol (Vitamin D2) 1,250 mcg PO FR 12/11/20 07/18/21 History [Drisdol (50,000 Iu)] [place]-3 Fatty Acids/Fish Oil [Fish 1 cap PO DAILY@1500 12/11/20 07/18/21 History Oil 1,000 mg Softgel] levETIRAcetam [Keppra] 500 mg PO BID 12/11/20 07/18/21 History Furosemide [Lasix] 40 mg PO DAILY #0 12/18/20 07/18/21 Rx Atorvastatin [Lipitor] 20 mg PO HS 07/18/21 07/18/21 History INSULIN ASPART (NovoLOG) [NovoLOG 5 unit SQ AC-BID@0800,1200 07/18/21 07/18/21 History (formulary)] INSULIN ASPART (NovoLOG) [NovoLOG 12 unit SQ AC-SUPPER 07/18/21 07/18/21 History (formulary)] INSULIN ASPART (NovoLOG) [NovoLOG See Protocol SQ AC-TID PRN 07/18/21 07/18/21 History (formulary)] Insulin Glargine [Lantus Vial] 36 unit SQ DAILY 07/18/21 07/18/21 History Losartan Potassium [Cozaar] 100 mg PO HS 07/18/21 07/18/21 History Vit C/E/Zn/Coppr/Lutein/Zeaxan 1 cap PO BID@1500,2100 07/18/21 07/18/21 History [Preservision Areds 2 Softgel] Allergies Allergy/AdvReac Type Severity Reaction Status Date / Time No Known Allergies Allergy Verified 07/18/21 13:42 Physical Exam Vitals: Vital Signs Temp Pulse Resp BP Pulse Ox 07/18/21 21:07 97.6 F 72 18 167/98 98 07/18/21 20:00 70 18 139/78 95 07/18/21 18:47 78 18 134/69 99 07/18/21 12:58 98.7 F 73 18 135/88 97 Intake and Output 07/18/21 07/18/21 07/18/21 06:59 14:59 22:59 Other: Voiding Method Toilet Diaper # Voids 1 Weight 90.718 kg 90.718 kg Results CBC & Chem 7: 07/18/21 13:21 07/18/21 13:21 Labs: Abnormal Lab Results - Last 24 Hours (Table) 07/18/21 07/18/21 07/18/21 Range/Units 13:21 14:00 18:54 BUN 39 H (9-20) mg/dL Creatinine 1.94 H (0.66-1.25) mg/dL Glucose 199 H (74-99) mg/dL POC Glucose (mg/dL) 168 H (75-99) mg/dL Alkaline Phosphatase 141 H (38-126) U/L Urine Protein 1+ H (Negative) Urine Glucose (UA) 4+ H (Negative) Urine Mucus Rare H (None) /hpf 07/18/21 Range/Units 21:47 BUN (9-20) mg/dL Creatinine (0.66-1.25) mg/dL Glucose (74-99) mg/dL POC Glucose (mg/dL) 156 H (75-99) mg/dL Alkaline Phosphatase (38-126) U/L Urine Protein (Negative) Urine Glucose (UA) (Negative) Urine Mucus (None) /hpf
[2021-07-18] MEDS: PSYLLIUM HUSK 100% 6 GM PACKET PO SCH (23:02)
[2021-07-19 06:26] LABS: African American GFR (CKD) 49 (>60 ml/min/1.73 sqM); Anion Gap 11 mmol/L; Blood Urea Nitrogen 34 mg/dL (9-20); Calcium 9.9 mg/dL (8.4-10.2); Carbon Dioxide 23 mmol/L (22-30); Chloride 109 mmol/L (98-107); Glucose 119 mg/dL (74-99); Non-African American GFR(CKD) 42 (>60 ml/min/1.73 sqM); Potassium 3.9 mmol/L (3.5-5.1); Sodium 143 mmol/L (137-145)
[2021-07-19 07:26] LABS: Glucose,Whole Blood 110 mg/dL (75-99)
[2021-07-19] MEDS: INSULIN ASPART (NovoLOG) 100 UNIT/ML VIAL SQ SCH ×6 (08:40→21:48)
[2021-07-19] MEDS: INSULIN DETEMIR (LEVEMIR) 100 UNIT/ML SYR SQ SCH (08:43)
[2021-07-19] MEDS: cloNIDine HCL 0.2 MG TAB PO SCH ×3 (08:44→20:27)
[2021-07-19] MEDS: CLOPIDOGREL 75 MG TAB PO SCH (08:44)
[2021-07-19] MEDS: PANTOPRAZOLE 40 MG TABLET PO SCH (08:44)
[2021-07-19] MEDS: levETIRAcetam 500 MG TAB PO SCH ×2 (08:44→20:26)
[2021-07-19] MEDS: ISOSORBIDE MONONITRATE ER 60 MG TAB.ER.24H PO SCH (08:45)
[2021-07-19] MEDS: PSYLLIUM HUSK 100% 6 GM PACKET PO SCH ×2 (08:45→20:27)
[2021-07-19] MEDS ORDERED: ERGOCALCIFEROL 1,250 MCG (50,000 IU) CAPSULE PO SCH (09:00)
[2021-07-19] MEDS ORDERED: FUROSEMIDE 40 MG TAB PO SCH (09:00)
[2021-07-19 11:54] LABS: Glucose,Whole Blood 142 mg/dL (75-99)
[2021-07-19] MEDS ORDERED: SODIUM CHLORIDE 0.9% 1,000 ML IV SCH (12:30)
[2021-07-19] MEDS: CANAGLIFLOZIN 300 MG PO SCH (13:49)
--- NOTE | 2021-07-19 14:13 | P.PN ---
Progress Note - Text Progress Note Date: 07/19/21 Chief Complaint: Not feeling well History of presenting complaint: This is a 75-year-old patient of Dr. Santana. Chronic stable medical conditions include hyperlipidemia, diabetes, obstructive sleep apnea, osteoarthritis, kidney stones, cognitive impairment-dementia. 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 Patient has a loop recorder placed because multiple episodes of decreased responsiveness since July. Seizures. Patient is brought into the ER as the daughter called the EMS. Patient has been feeling weak or or the last week. Somewhat lightheaded. Yesterday to fall. No injury. More lethargic today. Patient been having 2 or 3 bowel movements a day. Slightly soft. Had a baseline patient speech is slow. No fever no chills. Patient himself feels that he is doing okay. This feels a bit tired. No trouble breathing. No abdominal pain Admitted with acute kidney injury. Dehydration. July 19: Feeling better. Eating well. Laying in bed. Awake. Review of systems: Was done for constitutional, cardiovascular, GI, pulmonary. relevant finding as above Active Medications Acetaminophen (Acetaminophen Tab 325 Mg Tab) 650 mg PO Q6HR PRN PRN Reason: Mild Pain or Fever > 100.5 Al Hydroxide/Mg Hydroxide (Mag Hydrox/Al Hydrox/Simeth 30 Ml Cup) 15 ml PO Q6HR PRN PRN Reason: Indigestion Albuterol Sulfate (Albuterol Nebulized 2.5 Mg/3 Ml) 2.5 mg INHALATION RT-QID PRN PRN Reason: Shortness Of Breath Atorvastatin Calcium (Atorvastatin 20 Mg Tab) 20 mg PO [facility] Last Admin: 07/18/21 22:06 Dose: 20 mg Documented by: Calcium Carbonate/Glycine (Calcium Carbonate 500 Mg Chewable) 1,000 mg PO Q4HR PRN PRN Reason: Dyspepsia Clonidine (Clonidine Hcl 0.2 Mg Tab) 0.2 mg PO TID [facility] Last Admin: 07/19/21 08:44 Dose: 0.2 mg Documented by: Clopidogrel Bisulfate (Clopidogrel 75 Mg Tab) 75 mg PO DAILY [facility] Last Admin: 07/19/21 08:44 Dose: 75 mg Documented by: Duloxetine HCl (Duloxetine Hcl 30 Mg Capsule.) 30 mg PO [facility] Last Admin: 07/18/21 22:06 Dose: 30 mg Documented by: Ergocalciferol (Ergocalciferol 1,250 Mcg (50,000 Iu) Capsule) 1,250 mcg PO FR [facility] Last Admin: 07/19/21 08:45 Dose: 1,250 mcg Documented by: Sodium Chloride (Saline 0.9%) 1,000 mls @ 100 mls/hr IV .Q10H [facility] Last Admin: 07/19/21 13:47 Dose: 100 mls/hr Documented by: Insulin Aspart (Insulin Aspart (Novolog) 100 Unit/Ml Vial) 12 unit SQ AC-SUPPER [facility] Insulin Aspart (Insulin Aspart (Novolog) 100 Unit/Ml Vial) 5 unit SQ AC- BID@0800,1200 [facility] Last Admin: 07/19/21 13:45 Dose: 5 unit Documented by: Insulin Aspart (Insulin Aspart (Novolog) 100 Unit/Ml Vial) 0 unit SQ ACHS [facility]; Protocol Last Admin: 07/19/21 13:46 Dose: 1 unit Documented by: Insulin Detemir (Insulin Detemir (Levemir) 100 Unit/Ml Syr) 28 unit SQ DAILY@0700 [facility] Last Admin: 07/19/21 08:43 Dose: 28 unit Documented by: Isosorbide Mononitrate (Isosorbide Mononitrate Er 60 Mg Tab.Er.24h) 60 mg PO DAILY [facility] Last Admin: 07/19/21 08:45 Dose: 60 mg Documented by: Lactulose (Lactulose 20 Gm/30 Ml Cup) 20 gm PO DAILY PRN PRN Reason: Constipation Levetiracetam (Levetiracetam 500 Mg Tab) 500 mg PO BID [facility] Last Admin: 07/19/21 08:44 Dose: 500 mg Documented by: Lorazepam (Lorazepam 0.5 Mg Tab) 0.5 mg PO Q6HR PRN PRN Reason: Anxiety Magnesium Hydroxide (Magnesium Hydroxide 2,400 Mg/10 Ml Cup) 2,400 mg PO DAILY PRN PRN Reason: Constipation Melatonin (Melatonin 3 Mg Tablet) 3 mg PO HS PRN PRN Reason: Insomnia Multivitamins/Minerals (Vit A,C & F-Khkxhy-Lpanwmpr 1 Each Tab) 1 each PO BID@1500,2100 [facility] Last Admin: 07/18/21 22:06 Dose: 1 each Documented by: Naloxone HCl (Naloxone 0.4 Mg/Ml 1 Ml Vial) 0.2 mg IV Q2M PRN PRN Reason: Opioid Reversal Patient's Own Med ( Canagliflozin [ Invokana] 300 Mg Tablet) 300 mg PO DAILY [facility] Last Admin: 07/19/21 13:49 Dose: Not Given Documented by: Patient's Own ( Dulaglutide [ Trulicity] 1.5 Mg/0. 5 Ml Pen.Injctr) 1.5 mg SQ SA [facility] Ondansetron HCl (Ondansetron 4 Mg/2 Ml Vial) 4 mg IVP Q8HR PRN PRN Reason: Nausea And Vomiting Pantoprazole Sodium (Pantoprazole 40 Mg Tablet) 40 mg PO DAILY [facility] Last Admin: 07/19/21 08:44 Dose: 40 mg Documented by: Psyllium Hydrophilic Mucilloid (Psyllium Husk 100% 6 Gm Packet) 6 gm PO BID [facility] Last Admin: 07/19/21 08:45 Dose: 6 gm Documented by: Past medical history to include: Diabetes, hyperlipidemia, hypertension, obstructive sleep apnea, osteoarthritis, kidney stones, cognitive impairment, stroke hypertension with right-sided weakness, depression, seizure Social history: No history of smoking or alcohol. Lives with his . Physical examination: VITAL SIGNS: 97.6, 91, 16, 170/65, 96% room air GENERAL: Laying in bed, more awake today EYES: Pupils equal. Conjunctiva normal. HEENT: External appearance of nose and ears normal, oral cavity grossly normal. NECK: JVD not raised; masses not palpable. HEART: First and second heart sounds are normal; no edema. LUNGS: Respiratory rate normal; clear to auscultation. ABDOMEN: Soft, upper abdomen tenderness no guarding rigidity, liver spleen not palpable, no masses palpable. PSYCH: answering simple questions NEUROLOGICAL: [Cranial nerves grossly intact; no facial asymmetry, power 4/5 on the right side INVESTIGATIONS, reviewed in the clinical context: July 19: Potassium 3.9 BUN 34 creatinine 1.59 WBC 9.1 hemoglobin 13.4 platelets 289 sodium 138 potassium 4.4 BUN 39 creatinine 1.94 Troponin less than 0.012 UA positive for protein 1+ glucose 4+ Coronavirus [PCR]: Not detected EKG tracing personally reviewed by me-normal sinus rhythm. Rate 74/m Chest x-ray film personally reviewed by me-no infiltrate Assessment and plan: -Dehydration Getting IV fluids -Acute kidney injury from decreased oral intake Admission creatinine 1.94. 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 On Levemir, NovoLog Follow Accu-Cheks closely. -Depression otherwise specified Cymbalta -Hyperlipidemia On Lipitor -Chronic kidney disease stage III from hypertensive nephrosclerosis and diabetic nephropathy Follow renal function Will continue to hold Lasix today. Decrease IV fluids 75 mL hour. Repeat labs tomorrow. Hopefully home tomorrow.
[2021-07-19] MEDS: VIT A,C & E-LUTEIN-MINERALS 1 EACH TAB PO SCH ×2 (16:22→20:27)
[2021-07-19] MEDS: SODIUM CHLORIDE 0.9% 1,000 ML IV SCH ×2 (16:24→21:00)
[2021-07-19 17:11] LABS: Glucose,Whole Blood 255 mg/dL (75-99)
[2021-07-19] MEDS ORDERED: INSULIN ASPART (NovoLOG) 100 UNIT/ML VIAL SQ SCH (17:30)
[2021-07-19] MEDS: DULoxetine HCL 30 MG CAPSULE.DR PO SCH (20:26)
[2021-07-19] MEDS: ATORVASTATIN 20 MG TAB PO SCH (20:26)
[2021-07-19 20:33] LABS: Glucose,Whole Blood 166 mg/dL (75-99)
[2021-07-19] MEDS ORDERED: diphenhydrAMINE 25 MG CAP PO PRN (21:24)
[2021-07-19 21:44] LABS: Glucose,Whole Blood 106 mg/dL (75-99)
[2021-07-20 02:49] VITALS: RESP 18
[2021-07-20 06:27] LABS: African American GFR (CKD) 54 (>60 ml/min/1.73 sqM); Anion Gap 5 mmol/L; Blood Urea Nitrogen 29 mg/dL (9-20); Calcium 9.3 mg/dL (8.4-10.2); Carbon Dioxide 24 mmol/L (22-30); Chloride 110 mmol/L (98-107); Glucose 159 mg/dL (74-99); Non-African American GFR(CKD) 47 (>60 ml/min/1.73 sqM); Potassium 4.5 mmol/L (3.5-5.1); Sodium 139 mmol/L (137-145)
[2021-07-20] MEDS: INSULIN DETEMIR (LEVEMIR) 100 UNIT/ML SYR SQ SCH (07:37)
[2021-07-20] MEDS: SODIUM CHLORIDE 0.9% 1,000 ML IV SCH ×2 (07:45→12:39)
[2021-07-20 07:57] LABS: Glucose,Whole Blood 170 mg/dL (75-99)
[2021-07-20] MEDS: INSULIN ASPART (NovoLOG) 100 UNIT/ML VIAL SQ SCH ×4 (08:10→12:38)
[2021-07-20] MEDS: PSYLLIUM HUSK 100% 6 GM PACKET PO SCH (08:12)
[2021-07-20] MEDS: CANAGLIFLOZIN 300 MG PO SCH (08:12)
[2021-07-20] MEDS: levETIRAcetam 500 MG TAB PO SCH (08:12)
[2021-07-20] MEDS: ISOSORBIDE MONONITRATE ER 60 MG TAB.ER.24H PO SCH (08:14)
[2021-07-20] MEDS: cloNIDine HCL 0.2 MG TAB PO SCH (08:14)
[2021-07-20] MEDS: PANTOPRAZOLE 40 MG TABLET PO SCH (08:14)
[2021-07-20] MEDS: CLOPIDOGREL 75 MG TAB PO SCH (08:15)
[2021-07-20] MEDS ORDERED: PATIENT'S OWN (Dulaglutide [Trulicity] 1.5 MG/0.5 ML Pen.Injctr) SQ SCH (09:00)
[2021-07-20 09:43] VITALS: BP 165/80; PULSE 73; TEMP 98.7
[2021-07-20 12:28] LABS: Glucose,Whole Blood 372 mg/dL (75-99)
--- NOTE | 2021-07-20 16:46 | P.DS ---
Providers Date of admission: 07/18/21 17:08 Expected date of discharge: 07/20/21 Attending physician: Tadeo Dickesron Primary care physician: Dennis Santana [facility] Course: Chief Complaint: Not feeling well History of presenting complaint: This is a 75-year-old patient of Dr. Santana. Chronic stable medical conditions include hyperlipidemia, diabetes, obstructive sleep apnea, osteoarthritis, kidney stones, cognitive impairment-dementia. 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 Patient has a loop recorder placed because multiple episodes of decreased responsiveness since July. Seizures. Patient is brought into the ER as the daughter called the EMS. Patient has been feeling weak or or the last week. Somewhat lightheaded. Yesterday to fall. No injury. More lethargic today. Patient been having 2 or 3 bowel movements a day. Slightly soft. Had a baseline patient speech is slow. No fever no chills. Patient himself feels that he is doing okay. This feels a bit tired. No trouble breathing. No abdominal pain Admitted with acute kidney injury. Dehydration. Patient responded well to IV fluids. Antihypertensive was cutback. Lasix was held. Creatinine dropped from 1.94-1.46 Today: Doing much better. Sitting up. Eating. More awake. Spoke to the daughter the bedside at length. Questions answered. Continue to hold off Lasix. Does of amlodipine cut back to half. Follow-up with PCP. Discussion and discharge planning more than 35 minutes Past medical history to include: Diabetes, hyperlipidemia, hypertension, obstructive sleep apnea, osteoarthritis, kidney stones, cognitive impairment, stroke hypertension with right-sided weakness, depression, seizure Social history: No history of smoking or alcohol. Lives with his . Physical examination: VITAL SIGNS: 98.7, 73, 16, 1 6580, 97% room air GENERAL: Sitting at the edge bed, eating EYES: Pupils equal. Conjunctiva normal. HEENT: External appearance of nose and ears normal, oral cavity grossly normal. NECK: JVD not raised; masses not palpable. HEART: First and second heart sounds are normal; no edema. LUNGS: Respiratory rate normal; clear to auscultation. ABDOMEN: Soft, upper abdomen tenderness no guarding rigidity, liver spleen not palpable, no masses palpable. PSYCH: Answering questions appropriately NEUROLOGICAL: [Cranial nerves grossly intact; no facial asymmetry, power 4/5 on the right side INVESTIGATIONS, reviewed in the clinical context: July 20: Creatinine 1.46 WBC 9.1 hemoglobin 13.4 platelets 289 sodium 138 potassium 4.4 BUN 39 creatinine 1.94 Troponin less than 0.012 UA positive for protein 1+ glucose 4+ Coronavirus [PCR]: Not detected EKG tracing personally reviewed by me-normal sinus rhythm. Rate 74/m Chest x-ray film personally reviewed by me-no infiltrate Assessment and plan: -Dehydration Received IV fluids -Acute kidney injury from decreased oral intake. Lasix discontinued Admission creatinine 1.94. Today 1. 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 On Levemir, NovoLog Follow Accu-Cheks closely. -Depression otherwise specified Cymbalta -Hyperlipidemia On Lipitor -Chronic kidney disease stage III from hypertensive nephrosclerosis and diabetic nephropathy Follow renal function Disposition: Home Plan - Discharge Summary New Discharge Prescriptions: New Psyllium Husk 100% [Metamucil Packet] 6 gm PO BID packet Continue Isosorbide Mononitrate ER [Imdur] 60 mg PO DAILY cloNIDine HCL [Catapres] 0.2 mg PO TID DULoxetine HCL [Cymbalta] 30 mg PO HS Albuterol Nebulized [Ventolin Nebulized] 2.5 mg INHALATION RT-QID PRN PRN Reason: Shortness Of Breath Omeprazole 20 mg PO DAILY Clopidogrel [Plavix] 75 mg PO DAILY #30 tab Canagliflozin [Invokana] 300 mg PO DAILY Dulaglutide [Trulicity] 1.5 mg SQ SA Ergocalciferol (Vitamin D2) [Drisdol (50,000 Iu)] 1,250 mcg PO FR levETIRAcetam [Keppra] 500 mg PO BID [place]-3 Fatty Acids/Fish Oil [Fish Oil 1,000 mg Softgel] 1 cap PO DAILY@1500 Losartan Potassium [Cozaar] 100 mg PO HS Atorvastatin [Lipitor] 20 mg PO HS Vit C/E/Zn/Coppr/Lutein/Zeaxan [Preservision Areds 2 Softgel] 1 cap PO BID@1500,2100 INSULIN ASPART (NovoLOG) [NovoLOG (formulary)] 12 unit SQ AC-SUPPER INSULIN ASPART (NovoLOG) [NovoLOG (formulary)] 5 unit SQ AC-BID@0800,1200 Insulin Glargine [Lantus Vial] 36 unit SQ DAILY INSULIN ASPART (NovoLOG) [NovoLOG (formulary)] See Protocol SQ AC-TID PRN PRN Reason: Blood Sugar - High Changed amLODIPine [Norvasc] 5 mg PO HS #30 tab No Action Furosemide [Lasix] 40 mg PO DAILY #0 Discharge Medication List DULoxetine HCL [Cymbalta] 30 mg PO HS 03/13/16 [History] Isosorbide Mononitrate ER [Imdur] 60 mg PO DAILY 03/13/16 [History] cloNIDine HCL [Catapres] 0.2 mg PO TID 03/13/16 [History] Albuterol Nebulized [Ventolin Nebulized] 2.5 mg INHALATION RT-QID PRN 07/08/20 [History] Omeprazole 20 mg PO DAILY 07/08/20 [History] Clopidogrel [Plavix] 75 mg PO DAILY #30 tab 07/11/20 [Rx] Canagliflozin [Invokana] 300 mg PO DAILY 11/03/20 [History] Dulaglutide [Trulicity] 1.5 mg SQ SA 11/03/20 [History] Ergocalciferol (Vitamin D2) [Drisdol (50,000 Iu)] 1,250 mcg PO FR 12/11/20 [History] [place]-3 Fatty Acids/Fish Oil [Fish Oil 1,000 mg Softgel] 1 cap PO DAILY@1500 12/11/20 [History] levETIRAcetam [Keppra] 500 mg PO BID 12/11/20 [History] Furosemide [Lasix] 40 mg PO DAILY #0 12/18/20 [Rx] Atorvastatin [Lipitor] 20 mg PO HS 07/18/21 [History] INSULIN ASPART (NovoLOG) [NovoLOG (formulary)] 5 unit SQ AC-BID@0800,1200 07/18/21 [History] INSULIN ASPART (NovoLOG) [NovoLOG (formulary)] 12 unit SQ AC-SUPPER 07/18/21 [History] INSULIN ASPART (NovoLOG) [NovoLOG (formulary)] See Protocol SQ AC-TID PRN 07/18/21 [History] Insulin Glargine [Lantus Vial] 36 unit SQ DAILY 07/18/21 [History] Losartan Potassium [Cozaar] 100 mg PO HS 07/18/21 [History] Vit C/E/Zn/Coppr/Lutein/Zeaxan [Preservision Areds 2 Softgel] 1 cap PO BID@1500,2100 07/18/21 [History] Psyllium Husk 100% [Metamucil Packet] 6 gm PO BID packet 07/20/21 [Rx] amLODIPine [Norvasc] 5 mg PO HS #30 tab 07/20/21 [Rx] Follow up Appointment(s)/Referral(s): Dennis Santana DO [Primary Care Provider] - 1-2 days Patient Instructions/Handouts: Weakness (GEN), Altered Mental Status (GEN)
== END 2021-07-20 13:46 ==
LOC: EC 12:56 → 6NMEDSUR 17:08
PROVIDERS: ADMIT Hospitalist; ATTEND Hospitalist
DX: E86.0 Dehydration (principal); N17.9 Acute kidney failure, unspecified; G40.909 Epilepsy, unspecified, not intractable, without status epilepticus; I12.9 Hypertensive chronic kidney disease with stage 1 through stage 4 chronic kidney disease, or unspecified chronic kidney disease; N18.30 Chronic kidney disease, stage 3 unspecified; I69.351 Hemiplegia and hemiparesis following cerebral infarction affecting right dominant side; G31.84 Mild cognitive impairment of uncertain or unknown etiology; E78.5 Hyperlipidemia, unspecified; E11.21 Type 2 diabetes mellitus with diabetic nephropathy; G47.33 Obstructive sleep apnea (adult) (pediatric); Z20.822 Contact with and (suspected) exposure to COVID-19; E66.9 Obesity, unspecified; Z68.30 Body mass index [BMI] 30.0-30.9, adult; F32.9 Major depressive disorder, single episode, unspecified; H54.7 Unspecified visual loss; E11.22 Type 2 diabetes mellitus with diabetic chronic kidney disease; M19.90 Unspecified osteoarthritis, unspecified site; W19.XXXA Unspecified fall, initial encounter; Z79.899 Other long term (current) drug therapy; Z79.4 Long term (current) use of insulin; K76.9 Liver disease, unspecified; Z79.02 Long term (current) use of antithrombotics/antiplatelets; Z87.442 Personal history of urinary calculi; Z95.818 Presence of other cardiac implants and grafts; Z83.3 Family history of diabetes mellitus; Z80.9 Family history of malignant neoplasm, unspecified
CPT/HCPCS: 99285; 96360; 96361 ×3; 36415; 93005; 80053; 80048 ×2; 84484; 85025; 85610; 85730; 81001; 87635; 71046; 70450; G0378 ×3

== ENCOUNTER 2021-07-28 12:57 | Emergency (ER) | payer MEDICARE ==
[2021-07-28] MEDS ORDERED: SODIUM CHLORIDE 0.9% 500 ML 500 ML IV STA (13:05)
[2021-07-28 13:12] VITALS: RESP 20
--- NOTE | 2021-07-28 13:23 | ED ---
General Adult HPI - General Chief complaint: Weakness Stated complaint: Weakness Time Seen by Provider: 07/28/21 13:00 Source: patient, EMS, RN notes reviewed, old records reviewed Mode of arrival: EMS Limitations: language barrier - History of Present Illness Initial comments: This is a 75-year-old male who is brought to the emergency department by EMS according to the daughter she called EMS because the patient is so weak he is unable to stand. Patient was recently in the hospital for diarrhea and dehydration on July 20. Since then he's gone home and earlier this week had a fever and was exposed to COVID at home but daughter states his cough that he's had for most of the week is gotten better and he did have an negative COVID test earlier in the week. Patient himself has no complaint but the daughter states that they tried to get him up and walking today and he was so weak he was unable to. Daughter states earlier in the week he had diarrhea but he no longer has any diarrhea. The daughter states he hasn't complained of any chest pain or difficulty breathing there's been no trauma. Main reason for the patient's visit is because of generalized weakness. Daughter states the patient is always a little slow to respond secondary to previous strokes but it's no different today than any other day - Related Data Home Medications Medication Instructions Recorded Confirmed DULoxetine HCL [Cymbalta] 30 mg PO HS 03/13/16 07/28/21 Isosorbide Mononitrate ER [Imdur] 60 mg PO DAILY 03/13/16 07/28/21 cloNIDine HCL [Catapres] 0.2 mg PO TID 03/13/16 07/28/21 Albuterol Nebulized [Ventolin 2.5 mg INHALATION RT-QID PRN 07/08/20 07/28/21 Nebulized] Omeprazole 20 mg PO DAILY 07/08/20 07/28/21 Canagliflozin [Invokana] 300 mg PO DAILY 11/03/20 07/28/21 Dulaglutide [Trulicity] 1.5 mg SQ SA 11/03/20 07/28/21 Ergocalciferol (Vitamin D2) 1,250 mcg PO FR 12/11/20 07/28/21 [Drisdol (50,000 Iu)] [place]-3 Fatty Acids/Fish Oil [Fish 1 cap PO DAILY@1500 12/11/20 07/28/21 Oil 1,000 mg Softgel] levETIRAcetam [Keppra] 500 mg PO BID 12/11/20 07/28/21 Atorvastatin [Lipitor] 20 mg PO HS 07/18/21 07/28/21 Insulin Glargine [Lantus Vial] 36 unit SQ DAILY 07/18/21 07/28/21 Vit C/E/Zn/Coppr/Lutein/Zeaxan 1 cap PO BID@1500,2100 07/18/21 07/28/21 [Preservision Areds 2 Softgel] Gabapentin 300 mg PO HS 07/28/21 07/28/21 Insulin Aspart [NovoLOG Flexpen] 5 units SQ AC-BID@0800,1200 07/28/21 07/28/21 Insulin Aspart [NovoLOG Flexpen] 12 units SQ AC-SUPPER 07/28/21 07/28/21 Insulin Aspart [NovoLOG Flexpen] See Protocol SQ AC-TID 07/28/21 07/28/21 Losartan [Cozaar] 100 mg PO HS 07/28/21 07/28/21 Previous Rx's Medication Instructions Recorded Clopidogrel [Plavix] 75 mg PO DAILY #30 tab 07/11/20 Furosemide [Lasix] 40 mg PO DAILY #0 12/18/20 Psyllium Husk 100% [Metamucil 6 gm PO BID packet 07/20/21 Packet] amLODIPine [Norvasc] 5 mg PO HS #30 tab 07/20/21 Allergies Allergy/AdvReac Type Severity Reaction Status Date / Time No Known Allergies Allergy Verified 07/28/21 13:46 Review of Systems ROS Statement: Those systems with pertinent positive or pertinent negative responses have been documented in the HPI. ROS Other: All systems not noted in ROS Statement are negative. Past Medical History Past Medical History: CVA/TIA, Diabetes Mellitus, Hyperlipidemia, Hypertension, Liver Disease, Renal Disease, Sleep Apnea/CPAP/BIPAP Additional Past Medical History / Comment(s): ARTHRITIS, kidney stones, possible dementia, kidney failure, neuropathy alia legs, carpal tunnel. CVA-jul 17 balance issues,speech impairment,vision impairment, receives injections to eyes r/t bleeding History of Any Multi-Drug Resistant Organisms: None Reported Past Surgical History: Back Surgery Additional Past Surgical History / Comment(s): MASS REMOVED FROM BACK OF HEAD, eye surgery, Past Anesthesia/Blood Transfusion Reactions: No Reported Reaction Past Psychological History: Depression Smoking Status: Never smoker Past Alcohol Use History: None Reported Past Drug Use History: None Reported - Past Family History Father Family Medical History: Diabetes Mellitus Mother Family Medical History: Diabetes Mellitus Brother(s) Family Medical History: Cancer Sister(s) Family Medical History: Cancer General Exam - General Exam Comments Initial Comments: GENERAL: Patient is well-developed and well-nourished. Patient is nontoxic and well- hydrated and is in no acute distress. ENT: Neck is soft and supple. No significant lymphadenopathy is noted. Oropharynx is clear. Moist mucous membranes. Neck has full range of motion without eliciting any pain. EYES: The sclera were anicteric and conjunctiva were pink and moist. Extraocular movements were intact and pupils were equal round and reactive to light. Eyelids were unremarkable. PULMONARY: Unlabored respirations. Good breath sounds bilaterally. No audible rales rhonchi or wheezing was noted. CARDIOVASCULAR: There is a regular rate and rhythm without any murmurs gallops or rubs. ABDOMEN: Soft and nontender with normal bowel sounds. SKIN: Skin is clear with no lesions or rashes and otherwise unremarkable. NEUROLOGIC: Patient is alert and oriented x3. Cranial nerves II through XII are grossly intact. Motor and sensory are also intact. Normal speech, volume and content. Symmetrical smile. MUSCULOSKELETAL: Normal extremities with adequate strength and full range of motion. LYMPHATICS: No significant lymphadenopathy is noted PSYCHIATRIC: Normal psychiatric evaluation. Limitations: language barrier Course Vital Signs 07/28/21 07/28/21 13:05 15:18 Temperature 99.1 F Pulse Rate 72 70 Respiratory 20 20 Rate Blood Pressure 127/67 152/80 O2 Sat by Pulse 97 98 Oximetry Medical Decision Making - Medical Decision Making EKG shows normal sinus rhythm at 74 bpm FL interval 140 QRS is 84 QT interval 356 QTC is 395. Patient's EKG shows no ST segment elevation or depression. - Lab Data Result diagrams: 07/28/21 13:15 07/28/21 13:15 Lab Results 07/28/21 07/28/21 07/28/21 Range/Units 13:15 13:15 13:15 WBC 5.2 (3.8-10.6) k/uL RBC 4.40 (4.30-5.90) m/uL Hgb 13.2 (13.0-17.5) gm/dL Hct 40.6 (39.0-53.0) % MCV 92.4 (80.0-100.0) fL MCH 29.9 (25.0-35.0) pg MCHC 32.4 (31.0-37.0) g/dL RDW 13.5 (11.5-15.5) % Plt Count 191 (150-450) k/uL MPV 8.2 Neutrophils % 72 % Lymphocytes % 21 % Monocytes % 5 % Eosinophils % 0 % Basophils % 1 % Neutrophils # 3.8 (1.3-7.7) k/uL Lymphocytes # 1.1 (1.0-4.8) k/uL Monocytes # 0.2 (0-1.0) k/uL Eosinophils # 0.0 (0-0.7) k/uL Basophils # 0.0 (0-0.2) k/uL PT 9.5 (9.0-12.0) sec INR 0.9 (<1.2) APTT 23.4 (22.0-30.0) sec Sodium (137-145) mmol/L Potassium (3.5-5.1) mmol/L Chloride (98-107) mmol/L Carbon Dioxide (22-30) mmol/L Anion Gap mmol/L BUN (9-20) mg/dL Creatinine (0.66-1.25) mg/dL Est GFR (CKD-EPI)AfAm (>60 ml/min/1.73 sqM) Est GFR (CKD-EPI)NonAf (>60 ml/min/1.73 sqM) Glucose (74-99) mg/dL Plasma Lactic Acid Jens (0.7-2.0) mmol/L Calcium (8.4-10.2) mg/dL Magnesium (1.6-2.3) mg/dL Total Bilirubin (0.2-1.3) mg/dL AST (17-59) U/L ALT (4-49) U/L Alkaline Phosphatase (38-126) U/L Troponin I (0.000-0.034) ng/mL Total Protein (6.3-8.2) g/dL Albumin (3.5-5.0) g/dL Urine Color Yellow Urine Appearance Clear (Clear) Urine pH 5.5 (5.0-8.0) Ur Specific [place] 1.009 (1.001-1.035) Urine Protein 2+ H (Negative) Urine Glucose (UA) 4+ H (Negative) Urine Ketones Negative (Negative) Urine Blood Negative (Negative) Urine Nitrite Negative (Negative) Urine Bilirubin Negative (Negative) Urine Urobilinogen <2.0 (<2.0) mg/dL Ur Leukocyte Esterase Negative (Negative) Urine RBC 1 (0-5) /hpf Urine WBC 1 (0-5) /hpf Amorphous Sediment Rare H (None) /hpf Hyaline Casts 1 (0-2) /lpf Coronavirus (PCR) (Not Detectd) 07/28/21 07/28/21 07/28/21 Range/Units 13:15 13:15 13:15 WBC (3.8-10.6) k/uL RBC (4.30-5.90) m/uL Hgb (13.0-17.5) gm/dL Hct (39.0-53.0) % MCV (80.0-100.0) fL MCH (25.0-35.0) pg MCHC (31.0-37.0) g/dL RDW (11.5-15.5) % Plt Count (150-450) k/uL MPV Neutrophils % % Lymphocytes % % Monocytes % % Eosinophils % % Basophils % % Neutrophils # (1.3-7.7) k/uL Lymphocytes # (1.0-4.8) k/uL Monocytes # (0-1.0) k/uL Eosinophils # (0-0.7) k/uL Basophils # (0-0.2) k/uL PT (9.0-12.0) sec INR (<1.2) APTT (22.0-30.0) sec Sodium 133 L (137-145) mmol/L Potassium 4.9 (3.5-5.1) mmol/L Chloride 102 (98-107) mmol/L Carbon Dioxide 23 (22-30) mmol/L Anion Gap 8 mmol/L BUN 34 H (9-20) mg/dL Creatinine 1.87 H (0.66-1.25) mg/dL Est GFR (CKD-EPI)AfAm 40 (>60 ml/min/1.73 sqM) Est GFR (CKD-EPI)NonAf 35 (>60 ml/min/1.73 sqM) Glucose 209 H (74-99) mg/dL Plasma Lactic Acid Jens 0.8 (0.7-2.0) mmol/L Calcium 8.3 L (8.4-10.2) mg/dL Magnesium 2.0 (1.6-2.3) mg/dL Total Bilirubin 0.4 (0.2-1.3) mg/dL AST 81 H (17-59) U/L ALT 52 H (4-49) U/L Alkaline Phosphatase 118 (38-126) U/L Troponin I <0.012 (0.000-0.034) ng/mL Total Protein 6.3 (6.3-8.2) g/dL Albumin 3.3 L (3.5-5.0) g/dL Urine Color Urine Appearance (Clear) Urine pH (5.0-8.0) Ur Specific [place] (1.001-1.035) Urine Protein (Negative) Urine Glucose (UA) (Negative) Urine Ketones (Negative) Urine Blood (Negative) Urine Nitrite (Negative) Urine Bilirubin (Negative) Urine Urobilinogen (<2.0) mg/dL Ur Leukocyte Esterase (Negative) Urine RBC (0-5) /hpf Urine WBC (0-5) /hpf Amorphous Sediment (None) /hpf Hyaline Casts (0-2) /lpf Coronavirus (PCR) (Not Detectd) 07/28/21 Range/Units 13:15 WBC (3.8-10.6) k/uL RBC (4.30-5.90) m/uL Hgb (13.0-17.5) gm/dL Hct (39.0-53.0) % MCV (80.0-100.0) fL MCH (25.0-35.0) pg MCHC (31.0-37.0) g/dL RDW (11.5-15.5) % Plt Count (150-450) k/uL MPV Neutrophils % % Lymphocytes % % Monocytes % % Eosinophils % % Basophils % % Neutrophils # (1.3-7.7) k/uL Lymphocytes # (1.0-4.8) k/uL Monocytes # (0-1.0) k/uL Eosinophils # (0-0.7) k/uL Basophils # (0-0.2) k/uL PT (9.0-12.0) sec INR (<1.2) APTT (22.0-30.0) sec Sodium (137-145) mmol/L Potassium (3.5-5.1) mmol/L Chloride (98-107) mmol/L Carbon Dioxide (22-30) mmol/L Anion Gap mmol/L BUN (9-20) mg/dL Creatinine (0.66-1.25) mg/dL Est GFR (CKD-EPI)AfAm (>60 ml/min/1.73 sqM) Est GFR (CKD-EPI)NonAf (>60 ml/min/1.73 sqM) Glucose (74-99) mg/dL Plasma Lactic Acid Jens (0.7-2.0) mmol/L Calcium (8.4-10.2) mg/dL Magnesium (1.6-2.3) mg/dL Total Bilirubin (0.2-1.3) mg/dL AST (17-59) U/L ALT (4-49) U/L Alkaline Phosphatase (38-126) U/L Troponin I (0.000-0.034) ng/mL Total Protein (6.3-8.2) g/dL Albumin (3.5-5.0) g/dL Urine Color Urine Appearance (Clear) Urine pH (5.0-8.0) Ur Specific [place] (1.001-1.035) Urine Protein (Negative) Urine Glucose (UA) (Negative) Urine Ketones (Negative) Urine Blood (Negative) Urine Nitrite (Negative) Urine Bilirubin (Negative) Urine Urobilinogen (<2.0) mg/dL Ur Leukocyte Esterase (Negative) Urine RBC (0-5) /hpf Urine WBC (0-5) /hpf Amorphous Sediment (None) /hpf Hyaline Casts (0-2) /lpf Coronavirus (PCR) Detected A (Not Detectd) Disposition Clinical Impression: Generalized weakness, COVID-19 Disposition: HOME SELF-CARE Condition: Good Instructions (If sedation given, give patient instructions): Coronavirus Disease 2019 (COVID-19), Weakness (ED) Is patient prescribed a controlled substance at d/c from ED?: No Referrals: Dennis Santana DO [Primary Care Provider] - 1-2 days Time of Disposition: 15:38
[2021-07-28 13:32] LABS: Basophils % (A) 1 %; Eosinophils % (A) 0 %; HCT 40.6 % (39.0-53.0); HGB 13.2 gm/dL (13.0-17.5); Lymphocytes # (A) 1.1 k/uL (1.0-4.8); Lymphocytes % (A) 21 %; MCH 29.9 pg (25.0-35.0); MCHC 32.4 g/dL (31.0-37.0); MCV 92.4 fL (80.0-100.0); Mean Platelet Volume 8.2; Monocytes # (A) 0.2 k/uL (0-1.0); Monocytes % (A) 5 %; Neutrophils # (A) 3.8 k/uL (1.3-7.7); Neutrophils % (A) 72 %; Platelet Count 191 k/uL (150-450); RDW 13.5 % (11.5-15.5); WBC 5.2 k/uL (3.8-10.6)
[2021-07-28 13:43] LABS: Albumin 3.3 g/dL (3.5-5.0); Calcium 8.3 mg/dL (8.4-10.2); Potassium 4.9 mmol/L (3.5-5.1); Total Bilirubin 0.4 mg/dL (0.2-1.3); Total Protein 6.3 g/dL (6.3-8.2)
[2021-07-28 13:45] LABS: INR 0.9 (<1.2); Partial Thromboplastin Time 23.4 sec (22.0-30.0); Prothrombin Time 9.5 sec (9.0-12.0)
[2021-07-28 13:50] LABS: Amorphous Sediment,Urine Rare /hpf; Appearance,Urine Clear (Clear); Bilirubin,Urine Negative (Negative); Blood,Urine Negative (Negative); Color,Urine Yellow; Glucose,Urine (UA) 4+ (Negative); Hyaline Casts,Urine 1 /lpf (0-2); Ketones,Urine Negative (Negative); Leukocyte Esterase,Urine Negative (Negative); Nitrite,Urine Negative (Negative); PH, Urine 5.5 (5.0-8.0); Protein,Urine 2+ (Negative); RBC,Urine 1 /hpf (0-5); Specific Gravity,Urine 1.009 (1.001-1.035); Urobilinogen,Urine <2.0 mg/dL (<2.0); WBC,Urine 1 /hpf (0-5)
--- NOTE | 2021-07-28 14:06 | XR ---
EXAMINATION TYPE: XR chest 2V DATE OF EXAM: 07/28/2021 COMPARISON: Chest x-ray 07/18/2021 HISTORY: Weakness TECHNIQUE: Frontal and lateral views of the chest are obtained. FINDINGS: There is no focal air space opacity, pleural effusion, or pneumothorax seen. The cardiac silhouette size is within normal limits. The osseous structures are intact, flowing anterior osteop hytes with preservation of disc height at be indicative of diffuse idiopathic skeletal hyperostosis. There is a loop recorder over the left chest. There are overlying leads.. IMPRESSION: No acute cardiopulmonary process.
[2021-07-28] MEDS ORDERED: SODIUM CHLORIDE 0.9% 50 ML IVPB ONE (14:45)
[2021-07-28] MEDS ORDERED: CASIRIVIMAB (REGN10933) (EUA) 600 MG, IMDEVIMAB (REGN10987) (EUA) 600 MG in SODIUM CHLO... IVPB ONE (15:00)
[2021-07-28 17:14] VITALS: BP 135/74; PULSE 75; TEMP 98.9
== END 2021-07-28 17:05 | disposition home or self-care (01) ==
LOC: EC 12:57
DX: U07.1 COVID-19 (principal); E11.9 Type 2 diabetes mellitus without complications; E78.5 Hyperlipidemia, unspecified; I10 Essential (primary) hypertension; F32.9 Major depressive disorder, single episode, unspecified; Z79.4 Long term (current) use of insulin; Z79.01 Long term (current) use of anticoagulants; Z86.73 Personal history of transient ischemic attack (TIA), and cerebral infarction without residual deficits; Z87.442 Personal history of urinary calculi
CPT/HCPCS: 99285; 96365; 96361 ×3; 36415; 93005; 80053; 83605; 83735; 84484; 85025; 85610; 85730; 81001; 87635; 71046; Q0243

== ENCOUNTER 2021-08-02 13:15 | Emergency (ER) | payer MEDICARE ==
[2021-08-02 13:37] VITALS: BP 105/88; PULSE 78; RESP 18; TEMP 98.4
[2021-08-02] MEDS ORDERED: SODIUM CHLORIDE 0.9% 1,000 ML IV ONE (13:41)
[2021-08-02] MEDS ORDERED: SODIUM CHLORIDE 0.9% 500 ML 500 ML IV ONE (13:41)
--- NOTE | 2021-08-02 13:46 | ED ---
General Adult HPI - General Chief complaint: Recheck/Abnormal Lab/Rx Stated complaint: Covid + Time Seen by Provider: 08/02/21 13:35 Source: patient, family, EMS, RN notes reviewed, old records reviewed Mode of arrival: EMS Limitations: no limitations - History of Present Illness Initial comments: This is a 76-year-old male who presents emergency Department complaining of coughing a lot. Patient was diagnosed with cold last week and comes in today be cause he was coughing a lot when the daughter checks his pulse ox was in the 80s however EMS arrived and noted it to be 97% on room air. Daughter states the patient is not eating or drinking. Patient has no pain. Patient denies chest pain or palpitations. Daughter states there were little concerned the patient aspirin because sometimes he has had aspiration problems because of a previous stroke. Patient currently does not complain of any difficulty breathing. Patient denies any abdominal pain patient's nausea vomiting. Patient is difficult to communicate with because of a previous stroke. Daughter does most of the speaking. - Related Data Home Medications Medication Instructions Recorded Confirmed DULoxetine HCL [Cymbalta] 30 mg PO HS 03/13/16 07/28/21 Isosorbide Mononitrate ER [Imdur] 60 mg PO DAILY 03/13/16 07/28/21 cloNIDine HCL [Catapres] 0.2 mg PO TID 03/13/16 07/28/21 Albuterol Nebulized [Ventolin 2.5 mg INHALATION RT-QID PRN 07/08/20 07/28/21 Nebulized] Omeprazole 20 mg PO DAILY 07/08/20 07/28/21 Canagliflozin [Invokana] 300 mg PO DAILY 11/03/20 07/28/21 Dulaglutide [Trulicity] 1.5 mg SQ SA 11/03/20 07/28/21 Ergocalciferol (Vitamin D2) 1,250 mcg PO FR 12/11/20 07/28/21 [Drisdol (50,000 Iu)] [place]-3 Fatty Acids/Fish Oil [Fish 1 cap PO DAILY@1500 12/11/20 07/28/21 Oil 1,000 mg Softgel] levETIRAcetam [Keppra] 500 mg PO BID 12/11/20 07/28/21 Atorvastatin [Lipitor] 20 mg PO HS 07/18/21 07/28/21 Insulin Glargine [Lantus Vial] 36 unit SQ DAILY 07/18/21 07/28/21 Vit C/E/Zn/Coppr/Lutein/Zeaxan 1 cap PO BID@1500,2100 07/18/21 07/28/21 [Preservision Areds 2 Softgel] Gabapentin 300 mg PO HS 07/28/21 07/28/21 Insulin Aspart [NovoLOG Flexpen] 5 units SQ AC-BID@0800,1200 07/28/21 07/28/21 Insulin Aspart [NovoLOG Flexpen] 12 units SQ AC-SUPPER 07/28/21 07/28/21 Insulin Aspart [NovoLOG Flexpen] See Protocol SQ AC-TID 07/28/21 07/28/21 Losartan [Cozaar] 100 mg PO HS 07/28/21 07/28/21 Previous Rx's Medication Instructions Recorded Clopidogrel [Plavix] 75 mg PO DAILY #30 tab 07/11/20 Furosemide [Lasix] 40 mg PO DAILY #0 12/18/20 Psyllium Hus[place] 100% [Metamucil 6 gm PO BID packet 07/20/21 Packet] amLODIPine [Norvasc] 5 mg PO HS #30 tab 07/20/21 Allergies Allergy/AdvReac Type Severity Reaction Status Date / Time No Known Allergies Allergy Verified 08/02/21 13:35 Review of Systems ROS Statement: Those systems with pertinent positive or pertinent negative responses have been documented in the HPI. ROS Other: All systems not noted in ROS Statement are negative. Past Medical History Past Medical History: CVA/TIA, Diabetes Mellitus, Hyperlipidemia, Hypertension, Liver Disease, Renal Disease, Sleep Apnea/CPAP/BIPAP Additional Past Medical History / Comment(s): ARTHRITIS, kidney stones, possible dementia, kidney failure, neuropathy alia legs, carpal tunnel. CVA-oct 20 balance issues,speech impairment,vision impairment, receives injections to eyes r/t bleeding History of Any Multi-Drug Resistant Organisms: None Reported Past Surgical History: Back Surgery Additional Past Surgical History / Comment(s): MASS REMOVED FROM BACK OF HEAD, eye surgery, Past Anesthesia/Blood Transfusion Reactions: No Reported Reaction Past Psychological History: Depression Smoking Status: Never smoker Past Alcohol Use History: None Reported Past Drug Use History: None Reported - Past Family History Father Family Medical History: Diabetes Mellitus Mother Family Medical History: Diabetes Mellitus Brother(s) Family Medical History: Cancer Sister(s) Family Medical History: Cancer General Exam - General Exam Comments Initial Comments: GENERAL: Patient is well-developed and well-nourished. Patient is nontoxic and well- hydrated and is in no acute distress. Pulse ox on room air is 98% ENT: Neck is soft and supple. No significant lymphadenopathy is noted. Oropharynx is clear. Moist mucous membranes. Neck has full range of motion without eliciting any pain. EYES: The sclera were anicteric and conjunctiva were pink and moist. Extraocular movements were intact and pupils were equal round and reactive to light. Eyelids were unremarkable. PULMONARY: Unlabored respirations. Good breath sounds bilaterally. No audible rales rhonchi or wheezing was noted. CARDIOVASCULAR: There is a regular rate and rhythm without any murmurs gallops or rubs. ABDOMEN: Soft and nontender with normal bowel sounds. SKIN: Skin is clear with no lesions or rashes and otherwise unremarkable. NEUROLOGIC: Patient is alert and oriented x3. Cranial nerves II through XII are grossly intact. Motor and sensory are also intact. Has some expressive aphasia which is from a previous stroke. Symmetrical smile. MUSCULOSKELETAL: Normal extremities with adequate strength and full range of motion. LYMPHATICS: No significant lymphadenopathy is noted PSYCHIATRIC: Normal psychiatric evaluation. Limitations: no limitations Course Vital Signs 08/02/21 13:35 Temperature 98.4 F Pulse Rate 78 Respiratory 18 Rate Blood Pressure 105/88 O2 Sat by Pulse 98 Oximetry Medical Decision Making - Medical Decision Making Patient's chest x-ray shows no acute abnormality. Patient continues to have a oxygenation sat in the high 90s between 97 and 98 on room air. Patient received a liter half of fluid in the emergency department. - Lab Data Result diagrams: 08/02/21 13:47 08/02/21 13:47 Lab Results 08/02/21 08/02/21 Range/Units 13:47 13:47 WBC 7.5 (3.8-10.6) k/uL RBC 4.08 L (4.30-5.90) m/uL Hgb 12.2 L (13.0-17.5) gm/dL Hct 37.3 L (39.0-53.0) % MCV 91.6 (80.0-100.0) fL MCH 30.0 (25.0-35.0) pg MCHC 32.8 (31.0-37.0) g/dL RDW 13.4 (11.5-15.5) % Plt Count 325 (150-450) k/uL MPV 7.7 Neutrophils % 68 % Lymphocytes % 23 % Monocytes % 7 % Eosinophils % 0 % Basophils % 0 % Neutrophils # 5.1 (1.3-7.7) k/uL Lymphocytes # 1.7 (1.0-4.8) k/uL Monocytes # 0.5 (0-1.0) k/uL Eosinophils # 0.0 (0-0.7) k/uL Basophils # 0.0 (0-0.2) k/uL Sodium 134 L (137-145) mmol/L Potassium 4.3 (3.5-5.1) mmol/L Chloride 103 (98-107) mmol/L Carbon Dioxide 22 (22-30) mmol/L Anion Gap 9 mmol/L BUN 26 H (9-20) mg/dL Creatinine 1.66 H (0.66-1.25) mg/dL Est GFR (CKD-EPI)AfAm 46 (>60 ml/min/1.73 sqM) Est GFR (CKD-EPI)NonAf 40 (>60 ml/min/1.73 sqM) Glucose 160 H (74-99) mg/dL Calcium 8.5 (8.4-10.2) mg/dL Total Bilirubin 0.6 (0.2-1.3) mg/dL AST 29 (17-59) U/L ALT 24 (4-49) U/L Alkaline Phosphatase 116 (38-126) U/L Total Protein 6.3 (6.3-8.2) g/dL Albumin 3.2 L (3.5-5.0) g/dL Disposition Clinical Impression: Dehydration Disposition: HOME SELF-CARE Condition: Good Instructions (If sedation given, give patient instructions): Dehydration (ED) Is patient prescribed a controlled substance at d/c from ED?: No Referrals: Dennis Santana DO [Primary Care Provider] - 1-2 days Time of Disposition: 14:32
[2021-08-02 14:01] LABS: Basophils % (A) 0 %; Eosinophils % (A) 0 %; HCT 37.3 % (39.0-53.0); HGB 12.2 gm/dL (13.0-17.5); Lymphocytes # (A) 1.7 k/uL (1.0-4.8); Lymphocytes % (A) 23 %; MCHC 32.8 g/dL (31.0-37.0); MCV 91.6 fL (80.0-100.0); Mean Platelet Volume 7.7; Monocytes # (A) 0.5 k/uL (0-1.0); Monocytes % (A) 7 %; Neutrophils # (A) 5.1 k/uL (1.3-7.7); Neutrophils % (A) 68 %; Platelet Count 325 k/uL (150-450); RBC 4.08 m/uL (4.30-5.90); RDW 13.4 % (11.5-15.5); WBC 7.5 k/uL (3.8-10.6)
--- NOTE | 2021-08-02 14:05 | XR ---
EXAMINATION TYPE: XR chest 2V DATE OF EXAM: 08/02/2021 COMPARISON: 07/28/2021 INDICATION: Difficulty breathing TECHNIQUE: Frontal and lateral views of the chest are obtained. FINDINGS: The heart size is normal. The pulmonary vasculature is normal. The lungs are clear. Loop recorder is over the left chest. IMPRESSION: 1. No acute pulmonary process.
[2021-08-02 14:17] LABS: Albumin 3.2 g/dL (3.5-5.0); Calcium 8.5 mg/dL (8.4-10.2); Potassium 4.3 mmol/L (3.5-5.1); Total Bilirubin 0.6 mg/dL (0.2-1.3); Total Protein 6.3 g/dL (6.3-8.2)
== END 2021-08-02 15:23 | disposition home or self-care (01) ==
LOC: EC 13:15
DX: E86.0 Dehydration (principal); E11.9 Type 2 diabetes mellitus without complications; E78.5 Hyperlipidemia, unspecified; I10 Essential (primary) hypertension; F32.A Depression, unspecified; Z79.4 Long term (current) use of insulin; Z86.73 Personal history of transient ischemic attack (TIA), and cerebral infarction without residual deficits; Z87.442 Personal history of urinary calculi; Z79.02 Long term (current) use of antithrombotics/antiplatelets
CPT/HCPCS: 36415; 71046; 80053; 85025; 99284

== ENCOUNTER 2021-08-16 11:48 | Emergency (ER) | payer MEDICARE ==
[2021-08-16 12:08] VITALS: PULSE 67; RESP 16
[2021-08-16] MEDS ORDERED: SODIUM CHLORIDE 0.9% 1,000 ML IV ONE (12:44)
--- NOTE | 2021-08-16 12:44 | ED ---
General Adult HPI - General Chief complaint: Syncope Stated complaint: weakness Time Seen by Provider: 08/16/21 12:00 Source: patient, family, RN notes reviewed, old records reviewed Mode of arrival: EMS Limitations: language barrier - History of Present Illness Initial comments: This is a 76-year-old male who presents emergency Department because he had a syncopal episode. According to the daughter the patient is sitting and got up to go to the toilet when he got up with the help of his got lightheaded and passed out for a minute or so. Patient states when he got up he thought he was going to have a bowel movement and that is why he got up. Patient awoke and he had a low blood pressure systolic 70 and he had no complaints however patient denies any chest pain palpitations difficulty breathing shortness of breath. Patient had no fever cough however he did have cold with at the beginning of the month. Patient denies any shortness of breath per patient denies abdominal pain patient denies any nausea vomiting diarrhea. Family states the patient is eating and drinking well. No other symptoms no injury from the fall. - Related Data Home Medications Medication Instructions Recorded Confirmed DULoxetine HCL [Cymbalta] 30 mg PO HS 03/13/16 08/16/21 Isosorbide Mononitrate ER [Imdur] 60 mg PO DAILY 03/13/16 08/16/21 cloNIDine HCL [Catapres] 0.2 mg PO TID 03/13/16 08/16/21 Albuterol Nebulized [Ventolin 2.5 mg INHALATION RT-QID PRN 07/08/20 08/16/21 Nebulized] Omeprazole 20 mg PO DAILY 07/08/20 08/16/21 Canagliflozin [Invokana] 300 mg PO DAILY 11/03/20 08/16/21 Dulaglutide [Trulicity] 1.5 mg SQ SA 11/03/20 08/16/21 Ergocalciferol (Vitamin D2) 1,250 mcg PO FR 12/11/20 08/16/21 [Drisdol (50,000 Iu)] [place]-3 Fatty Acids/Fish Oil [Fish 1 cap PO DAILY@1500 12/11/20 08/16/21 Oil 1,000 mg Softgel] levETIRAcetam [Keppra] 500 mg PO BID 12/11/20 08/16/21 Atorvastatin [Lipitor] 20 mg PO HS 07/18/21 08/16/21 Vit C/E/Zn/Coppr/Lutein/Zeaxan 1 cap PO BID@1500,2100 07/18/21 08/16/21 [Preservision Areds 2 Softgel] Gabapentin 300 mg PO HS 07/28/21 08/16/21 Insulin Aspart [NovoLOG Flexpen] 5 units SQ AC-BID@0800,1200 07/28/21 08/16/21 Insulin Aspart [NovoLOG Flexpen] 12 units SQ AC-SUPPER 07/28/21 08/16/21 Insulin Aspart [NovoLOG Flexpen] See Protocol SQ AC-TID 07/28/21 08/16/21 Losartan [Cozaar] 100 mg PO HS 07/28/21 08/16/21 Insulin Glargine,Hum.rec.anlog 36 units SQ DAILY 08/16/21 08/16/21 [Lantus Solostar Pen] Previous Rx's Medication Instructions Recorded Clopidogrel [Plavix] 75 mg PO DAILY #30 tab 07/11/20 Furosemide [Lasix] 40 mg PO DAILY #0 12/18/20 Psyllium Husk 100% [Metamucil 6 gm PO BID packet 07/20/21 Packet] amLODIPine [Norvasc] 5 mg PO HS #30 tab 07/20/21 Allergies Allergy/AdvReac Type Severity Reaction Status Date / Time No Known Allergies Allergy Verified 08/16/21 14:01 Review of Systems ROS Statement: Those systems with pertinent positive or pertinent negative responses have been documented in the HPI. ROS Other: All systems not noted in ROS Statement are negative. Past Medical History Past Medical History: CVA/TIA, Diabetes Mellitus, Hyperlipidemia, Hypertension, Liver Disease, Renal Disease, Sleep Apnea/CPAP/BIPAP Additional Past Medical History / Comment(s): ARTHRITIS, kidney stones, possible dementia, kidney failure, neuropathy alia legs, carpal tunnel. CVA-jul 17 balance issues,speech impairment,vision impairment, receives injections to eyes r/t bleeding History of Any Multi-Drug Resistant Organisms: None Reported Past Surgical History: Back Surgery Additional Past Surgical History / Comment(s): MASS REMOVED FROM BACK OF HEAD, eye surgery, Past Anesthesia/Blood Transfusion Reactions: No Reported Reaction Past Psychological History: Depression Smoking Status: Never smoker Past Alcohol Use History: None Reported Past Drug Use History: None Reported - Past Family History Father Family Medical History: Diabetes Mellitus Mother Family Medical History: Diabetes Mellitus Brother(s) Family Medical History: Cancer Sister(s) Family Medical History: Cancer General Exam - General Exam Comments Initial Comments: GENERAL: Patient is well-developed and well-nourished. Patient is nontoxic and well- hydrated and is in no acute distress. ENT: Neck is soft and supple. No significant lymphadenopathy is noted. Oropharynx is clear. Moist mucous membranes. Neck has full range of motion without eliciting any pain. EYES: The sclera were anicteric and conjunctiva were pink and moist. Extraocular movements were intact and pupils were equal round and reactive to light. Eyelids were unremarkable. PULMONARY: Unlabored respirations. Good breath sounds bilaterally. No audible rales rhonchi or wheezing was noted. CARDIOVASCULAR: There is a regular rate and rhythm without any murmurs gallops or rubs. ABDOMEN: Soft and nontender with normal bowel sounds. SKIN: Skin is clear with no lesions or rashes and otherwise unremarkable. NEUROLOGIC: Patient is alert and oriented x3. Cranial nerves II through XII are grossly intact. Motor and sensory are also intact. Normal speech, volume and content. Symmetrical smile. MUSCULOSKELETAL: Normal extremities with adequate strength and full range of motion. No lower extremity swelling or edema. No calf tenderness. LYMPHATICS: No significant lymphadenopathy is noted PSYCHIATRIC: Normal psychiatric evaluation. 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 Patient's EKG shows no ST segment elevation or depression. Patient's blood pressure dropped 20 points with standing in the emergency d epartment. Patient received a liter of normal saline. Patient remained asymptomatic throughout his stay he was able to get up and ambulate with assistance and was at his baseline. Family was updated on his status and they were in agreement with taking him home. Family states she'll follow-up with primary medical care doctor and see if there needs to be a medication change to keep his blood pressure up a little. - Lab Data Result diagrams: 08/16/21 13:06 08/16/21 13:06 Lab Results 08/16/21 08/16/21 08/16/21 Range/Units 13:06 13:06 13:06 WBC 9.7 (3.8-10.6) k/uL RBC 4.45 (4.30-5.90) m/uL Hgb 13.5 (13.0-17.5) gm/dL Hct 41.3 (39.0-53.0) % MCV 93.0 (80.0-100.0) fL MCH 30.4 (25.0-35.0) pg MCHC 32.7 (31.0-37.0) g/dL RDW 13.6 (11.5-15.5) % Plt Count 356 (150-450) k/uL MPV 7.5 Neutrophils % 74 % Lymphocytes % 18 % Monocytes % 6 % Eosinophils % 1 % Basophils % 1 % Neutrophils # 7.1 (1.3-7.7) k/uL Lymphocytes # 1.7 (1.0-4.8) k/uL Monocytes # 0.6 (0-1.0) k/uL Eosinophils # 0.1 (0-0.7) k/uL Basophils # 0.1 (0-0.2) k/uL PT 10.0 (9.0-12.0) sec INR 0.9 (<1.2) APTT 23.4 (22.0-30.0) sec Sodium 135 L (137-145) mmol/L Potassium 4.5 (3.5-5.1) mmol/L Chloride 104 (98-107) mmol/L Carbon Dioxide 21 L (22-30) mmol/L Anion Gap 10 mmol/L BUN 23 H (9-20) mg/dL Creatinine 1.67 H (0.66-1.25) mg/dL Est GFR (CKD-EPI)AfAm 46 (>60 ml/min/1.73 sqM) Est GFR (CKD-EPI)NonAf 40 (>60 ml/min/1.73 sqM) Glucose 280 H (74-99) mg/dL Calcium 8.7 (8.4-10.2) mg/dL Magnesium 2.2 (1.6-2.3) mg/dL Total Bilirubin 0.4 (0.2-1.3) mg/dL AST 38 (17-59) U/L ALT 26 (4-49) U/L Alkaline Phosphatase 182 H (38-126) U/L Troponin I (0.000-0.034) ng/mL Total Protein 6.6 (6.3-8.2) g/dL Albumin 3.4 L (3.5-5.0) g/dL 08/16/21 Range/Units 13:06 WBC (3.8-10.6) k/uL RBC (4.30-5.90) m/uL Hgb (13.0-17.5) gm/dL Hct (39.0-53.0) % MCV (80.0-100.0) fL MCH (25.0-35.0) pg MCHC (31.0-37.0) g/dL RDW (11.5-15.5) % Plt Count (150-450) k/uL MPV Neutrophils % % Lymphocytes % % Monocytes % % Eosinophils % % Basophils % % Neutrophils # (1.3-7.7) k/uL Lymphocytes # (1.0-4.8) k/uL Monocytes # (0-1.0) k/uL Eosinophils # (0-0.7) k/uL Basophils # (0-0.2) k/uL PT (9.0-12.0) sec INR (<1.2) APTT (22.0-30.0) sec Sodium (137-145) mmol/L Potassium (3.5-5.1) mmol/L Chloride (98-107) mmol/L Carbon Dioxide (22-30) mmol/L Anion Gap mmol/L BUN (9-20) mg/dL Creatinine (0.66-1.25) mg/dL Est GFR (CKD-EPI)AfAm (>60 ml/min/1.73 sqM) Est GFR (CKD-EPI)NonAf (>60 ml/min/1.73 sqM) Glucose (74-99) mg/dL Calcium (8.4-10.2) mg/dL Magnesium (1.6-2.3) mg/dL Total Bilirubin (0.2-1.3) mg/dL AST (17-59) U/L ALT (4-49) U/L Alkaline Phosphatase (38-126) U/L Troponin I <0.012 (0.000-0.034) ng/mL Total Protein (6.3-8.2) g/dL Albumin (3.5-5.0) g/dL Disposition Clinical Impression: Vasovagal syncope Disposition: HOME SELF-CARE Condition: Good Instructions (If sedation given, give patient instructions): Hypotension (ED), Syncope (ED) Is patient prescribed a controlled substance at d/c from ED?: No Referrals: Dennis Santana DO [Primary Care Provider] - 1-2 days Time of Disposition: 14:30
[2021-08-16 13:15] LABS: Basophils # (A) 0.1 k/uL (0-0.2); Basophils % (A) 1 %; Eosinophils # (A) 0.1 k/uL (0-0.7); Eosinophils % (A) 1 %; HCT 41.3 % (39.0-53.0); HGB 13.5 gm/dL (13.0-17.5); Lymphocytes # (A) 1.7 k/uL (1.0-4.8); Lymphocytes % (A) 18 %; MCH 30.4 pg (25.0-35.0); MCHC 32.7 g/dL (31.0-37.0); Mean Platelet Volume 7.5; Monocytes # (A) 0.6 k/uL (0-1.0); Monocytes % (A) 6 %; Neutrophils # (A) 7.1 k/uL (1.3-7.7); Neutrophils % (A) 74 %; Platelet Count 356 k/uL (150-450); RBC 4.45 m/uL (4.30-5.90); RDW 13.6 % (11.5-15.5); WBC 9.7 k/uL (3.8-10.6)
--- NOTE | 2021-08-16 13:21 | XR ---
EXAMINATION TYPE: XR chest 2V DATE OF EXAM: 08/16/2021 COMPARISON: 08/02/2021 HISTORY: 76-year-old male with chest pain and syncopal episodes TECHNIQUE: AP and lateral views FINDINGS: Low lung volumes and crowded vascular markings. Heart normal size. Loop recorder device projects over the left side of the chest. Extensive changes of dish in the visualized spine. IMPRESSION: Limitations due to hypoventilatory changes. Increased interstitial density likely due to crowded vasc ular markings. No focal infiltrate seen.
[2021-08-16 13:25] LABS: INR 0.9 (<1.2); Partial Thromboplastin Time 23.4 sec (22.0-30.0)
[2021-08-16 13:35] LABS: Albumin 3.4 g/dL (3.5-5.0); Calcium 8.7 mg/dL (8.4-10.2); Magnesium 2.2 mg/dL (1.6-2.3); Potassium 4.5 mmol/L (3.5-5.1); Total Bilirubin 0.4 mg/dL (0.2-1.3); Total Protein 6.6 g/dL (6.3-8.2)
[2021-08-16 14:14] VITALS: BP 139/69
== END 2021-08-16 15:09 | disposition home or self-care (01) ==
LOC: EC 11:48
DX: R55 Syncope and collapse (principal); E11.9 Type 2 diabetes mellitus without complications; E78.5 Hyperlipidemia, unspecified; I10 Essential (primary) hypertension; F32.A Depression, unspecified; Z79.4 Long term (current) use of insulin; Z79.02 Long term (current) use of antithrombotics/antiplatelets; Z86.73 Personal history of transient ischemic attack (TIA), and cerebral infarction without residual deficits; Z87.442 Personal history of urinary calculi
CPT/HCPCS: 36415; 71046; 80053; 83735; 84484; 85025; 85610; 85730; 93005; 96360; 96361; 99284

== ENCOUNTER 2021-11-09 22:48 | Observation (INO) | payer MEDICARE ==
--- NOTE | 2021-11-09 23:31 | ED ---
General Adult HPI - General Chief complaint: Recheck/Abnormal Lab/Rx Stated complaint: Hypertension Time Seen by Provider: 11/09/21 22:49 Source: EMS Mode of arrival: EMS Limitations: language barrier - History of Present Illness Initial comments: Dictation was produced using [employer] dictation software. please excuse any grammatical, word or spelling errors. Chief Complaint: Patient is 76-year-old male presents emergency department for hypertension and headache. History of Present Illness: Patient 76-year-old male past medical history hypertension presents to the emergency department for elevated blood pressure and headache. Patient states she's been having headache for the last 3-4 days. He is brought in by EMS. EMS was called because patient had elevated blood pressures at home. Daughter is at the bedside and helps provide history present illness. She reports that his blood pressures have been slowly creeping up over the last couple months. 2 months ago his blood pressures were found to be low. His primary care doctor haven't all his blood pressure medications. Since the last 2 months his pressures have been creeping up. He has a follow-up appointment on the . Patient states over the last 3-4 days she's had a headache. He states that its posterior states that severe. He has history of migraines however this is different than his usual headaches. Patient has history of strokes with residual deficits. The ROS documented in this emergency department record has been reviewed and confirmed by me. Those systems with pertinent positive or negative responses have been documented in the HPI. All other systems are other negative and/or noncontributory. PHYSICAL EXAM: General Impression: Alert and oriented x3, not in acute distress HEENT: Normocephalic atraumatic, extra-ocular movements intact, pupils equal and reactive to light bilaterally, mucous membranes moist. Cardiovascular: Heart regular rate and rhythm Chest: Able to complete full sentences, no retractions, no tachypnea Abdomen: abdomen soft, non-tender, non-distended, no organomegaly Musculoskeletal: Pulses present and equal in all extremities, no peripheral edema Motor: no focal deficits noted Neurological: CN II-XII grossly intact, mild weakness to his right upper extremity, there does appear to be decrease muscle bulk his left hand intrinsic muscles, mild weakness in his right lower extremity Skin: Intact with no visualized rashes Psych: Normal affect and mood ED course: 76 yo male presents emergency department for hypertension. He's had a headache also for the last 3-4 days. Vital signs upon arrival shows blood pressure 222/100. Patient's medications were reviewed. Laboratory evaluation obtained. CBC, coag panel, metabolic panel is unremarkable. Troponin is negative. Computed tomography scan of the brain is unremarkable. Patient given 1 dose of hydralazine. He is reevaluated at bedside with improved blood pressure. He states his headache is slightly better. Clinical presentation consistent with symptomatic hypertension. Given patient's age and comorbidities I believe he would benefit from an observation admission for further medical monitoring and adjustment of blood pressure medications. Patient be admitted to Dr. Dickerson's service EKG interpretation: Ventricular rate 80, sinus rhythm, LA interval 152, QRS 106, QTC 412. No LA prolongation, no QTC prolongation, no ST or T-wave changes noted. EKG compared to 08/16/2021 showing no changes. Overall, this EKG is unremarkable - Related Data Home Medications Medication Instructions Recorded Confirmed DULoxetine HCL [Cymbalta] 30 mg PO HS 03/13/16 08/16/21 Isosorbide Mononitrate ER [Imdur] 60 mg PO DAILY 03/13/16 08/16/21 cloNIDine HCL [Catapres] 0.2 mg PO TID 03/13/16 08/16/21 Albuterol Nebulized [Ventolin 2.5 mg INHALATION RT-QID PRN 07/08/20 08/16/21 Nebulized] Omeprazole 20 mg PO DAILY 07/08/20 08/16/21 Canagliflozin [Invokana] 300 mg PO DAILY 11/03/20 08/16/21 Dulaglutide [Trulicity] 1.5 mg SQ SA 11/03/20 08/16/21 Ergocalciferol (Vitamin D2) 1,250 mcg PO FR 12/11/20 08/16/21 [Drisdol (50,000 Iu)] [place]-3 Fatty Acids/Fish Oil [Fish 1 cap PO DAILY@1500 12/11/20 08/16/21 Oil 1,000 mg Softgel] levETIRAcetam [Keppra] 500 mg PO BID 12/11/20 08/16/21 Atorvastatin [Lipitor] 20 mg PO HS 07/18/21 08/16/21 Vit C/E/Zn/Coppr/Lutein/Zeaxan 1 cap PO BID@1500,2100 07/18/21 08/16/21 [Preservision Areds 2 Softgel] Gabapentin 300 mg PO HS 07/28/21 08/16/21 Insulin Aspart [NovoLOG Flexpen] 5 units SQ AC-BID@0800,1200 07/28/21 08/16/21 Insulin Aspart [NovoLOG Flexpen] 12 units SQ AC-SUPPER 07/28/21 08/16/21 Insulin Aspart [NovoLOG Flexpen] See Protocol SQ AC-TID 07/28/21 08/16/21 Losartan [Cozaar] 100 mg PO HS 07/28/21 08/16/21 Insulin Glargine,Hum.rec.anlog 36 units SQ DAILY 08/16/21 08/16/21 [Lantus Solostar Pen] Previous Rx's Medication Instructions Recorded Clopidogrel [Plavix] 75 mg PO DAILY #30 tab 07/11/20 Furosemide [Lasix] 40 mg PO DAILY #0 12/18/20 Psyllium Husk 100% [Metamucil 6 gm PO BID packet 07/20/21 Packet] amLODIPine [Norvasc] 5 mg PO HS #30 tab 07/20/21 Allergies Allergy/AdvReac Type Severity Reaction Status Date / Time No Known Allergies Allergy Verified 08/16/21 14:01 Review of Systems ROS Statement: Those systems with pertinent positive or pertinent negative responses have been documented in the HPI. ROS Other: All systems not noted in ROS Statement are negative. Past Medical History Past Medical History: CVA/TIA, Diabetes Mellitus, Hyperlipidemia, Hypertension, Liver Disease, Renal Disease, Sleep Apnea/CPAP/BIPAP Additional Past Medical History / Comment(s): ARTHRITIS, kidney stones, possible dementia, kidney failure, neuropathy alia legs, carpal tunnel. CVA-jul 17 balance issues,speech impairment,vision impairment, receives injections to eyes r/t bleeding History of Any Multi-Drug Resistant Organisms: None Reported Past Surgical History: Back Surgery Additional Past Surgical History / Comment(s): MASS REMOVED FROM BACK OF HEAD, eye surgery, Past Anesthesia/Blood Transfusion Reactions: No Reported Reaction Past Psychological History: Depression Smoking Status: Never smoker Past Alcohol Use History: None Reported Past Drug Use History: None Reported - Past Family History Father Family Medical History: Diabetes Mellitus Mother Family Medical History: Diabetes Mellitus Brother(s) Family Medical History: Cancer Sister(s) Family Medical History: Cancer General Exam Limitations: language barrier Course Vital Signs 11/09/21 22:54 Temperature 98.2 F Pulse Rate 81 Respiratory 18 Rate Blood Pressure 222/100 O2 Sat by Pulse 98 Oximetry Medical Decision Making - Lab Data Result diagrams: 11/09/21 23:30 11/09/21 23:30 Lab Results 11/09/21 11/09/21 11/09/21 Range/Units 23:30 23:30 23:30 WBC 6.3 (3.8-10.6) k/uL RBC 4.72 (4.30-5.90) m/uL Hgb 14.5 (13.0-17.5) gm/dL Hct 44.0 (39.0-53.0) % MCV 93.3 (80.0-100.0) fL MCH 30.8 (25.0-35.0) pg MCHC 33.1 (31.0-37.0) g/dL RDW 14.1 (11.5-15.5) % Plt Count 263 (150-450) k/uL MPV 7.6 Neutrophils % 58 % Lymphocytes % 33 % Monocytes % 6 % Eosinophils % 1 % Basophils % 1 % Neutrophils # 3.7 (1.3-7.7) k/uL Lymphocytes # 2.1 (1.0-4.8) k/uL Monocytes # 0.4 (0-1.0) k/uL Eosinophils # 0.1 (0-0.7) k/uL Basophils # 0.0 (0-0.2) k/uL PT 9.9 (9.0-12.0) sec INR 0.9 (<1.2) APTT 24.4 (22.0-30.0) sec Sodium 140 (137-145) mmol/L Potassium 3.7 (3.5-5.1) mmol/L Chloride 105 (98-107) mmol/L Carbon Dioxide 27 (22-30) mmol/L Anion Gap 8 mmol/L BUN 24 H (9-20) mg/dL Creatinine 1.57 H (0.66-1.25) mg/dL Est GFR (CKD-EPI)AfAm 49 (>60 ml/min/1.73 sqM) Est GFR (CKD-EPI)NonAf 43 (>60 ml/min/1.73 sqM) Glucose 96 (74-99) mg/dL Calcium 9.1 (8.4-10.2) mg/dL Magnesium 2.1 (1.6-2.3) mg/dL Troponin I (0.000-0.034) ng/mL 11/09/21 Range/Units 23:30 WBC (3.8-10.6) k/uL RBC (4.30-5.90) m/uL Hgb (13.0-17.5) gm/dL Hct (39.0-53.0) % MCV (80.0-100.0) fL MCH (25.0-35.0) pg MCHC (31.0-37.0) g/dL RDW (11.5-15.5) % Plt Count (150-450) k/uL MPV Neutrophils % % Lymphocytes % % Monocytes % % Eosinophils % % Basophils % % Neutrophils # (1.3-7.7) k/uL Lymphocytes # (1.0-4.8) k/uL Monocytes # (0-1.0) k/uL Eosinophils # (0-0.7) k/uL Basophils # (0-0.2) k/uL PT (9.0-12.0) sec INR (<1.2) APTT (22.0-30.0) sec Sodium (137-145) mmol/L Potassium (3.5-5.1) mmol/L Chloride (98-107) mmol/L Carbon Dioxide (22-30) mmol/L Anion Gap mmol/L BUN (9-20) mg/dL Creatinine (0.66-1.25) mg/dL Est GFR (CKD-EPI)AfAm (>60 ml/min/1.73 sqM) Est GFR (CKD-EPI)NonAf (>60 ml/min/1.73 sqM) Glucose (74-99) mg/dL Calcium (8.4-10.2) mg/dL Magnesium (1.6-2.3) mg/dL Troponin I <0.012 (0.000-0.034) ng/mL Disposition Clinical Impression: Hypertension Disposition: ADMITTED IP TO THIS HOSP Condition: Fair Referrals: Dennis Santana DO [Primary Care Provider] - 1-2 days
[2021-11-09 23:44] LABS: Basophils % (A) 1 %; Eosinophils # (A) 0.1 k/uL (0-0.7); Eosinophils % (A) 1 %; HGB 14.5 gm/dL (13.0-17.5); Lymphocytes # (A) 2.1 k/uL (1.0-4.8); Lymphocytes % (A) 33 %; MCH 30.8 pg (25.0-35.0); MCHC 33.1 g/dL (31.0-37.0); MCV 93.3 fL (80.0-100.0); Mean Platelet Volume 7.6; Monocytes # (A) 0.4 k/uL (0-1.0); Monocytes % (A) 6 %; Neutrophils # (A) 3.7 k/uL (1.3-7.7); Neutrophils % (A) 58 %; Platelet Count 263 k/uL (150-450); RBC 4.72 m/uL (4.30-5.90); RDW 14.1 % (11.5-15.5); WBC 6.3 k/uL (3.8-10.6)
[2021-11-09 23:53] LABS: INR 0.9 (<1.2); Partial Thromboplastin Time 24.4 sec (22.0-30.0); Prothrombin Time 9.9 sec (9.0-12.0)
[2021-11-10] LABS: Calcium 9.1 mg/dL (8.4-10.2); Magnesium 2.1 mg/dL (1.6-2.3); Potassium 3.7 mmol/L (3.5-5.1)
--- NOTE | 2021-11-10 00:05 | CT ---
EXAMINATION TYPE: CT brain wo con DATE OF EXAM: 11/09/2021 COMPARISON: 07/18/2021 HISTORY: AMS CT DLP: 1060.40 mGycm Automated exposure control for dose reduction was used. Images of the brain obtained without contrast. There is large area of hypodensity in the left posterior temporal lobe measuring 7 x 3 cm and consist ent with old infarct. There are smaller 3 cm focus right posterior parietal lobe white matter consist ent with old infarct. There is no midline shift. There is no evidence of intracranial hemorrhage. The re is 2.5 cm hypodensity right occipital lobe consistent with old white matter infarct adjacent to th e occipital horn right lateral ventricle. The calvarium is intact. Skull base is intact. There is nor mal aeration of the mastoid sinuses. IMPRESSION: Bilateral posterior old encephalomalacia without change compared to old exam. No acute intracranial a bnormality.
[2021-11-10] MEDS ORDERED: hydrALAZINE HCL 20 MG/ML 1 ML VIAL IVP STA (00:10)
[2021-11-10] MEDS ORDERED: NALOXONE 0.4 MG/ML 1 ML VIAL IV PRN (00:52)
[2021-11-10] MEDS ORDERED: SODIUM CHLORIDE 0.9% 1,000 ML IV SCH (01:00)
[2021-11-10] MEDS ORDERED: cloNIDine HCL 0.2 MG TAB PO SCH (12:00)
[2021-11-10 12:15] LABS: Glucose,Whole Blood 83 mg/dL (75-99)
[2021-11-10] MEDS: Dapagliflozin Propanediol [Farxiga] 10 MG Tablet PO SCH (12:16)
[2021-11-10] MEDS: INSULIN ASPART (NovoLOG) 100 UNIT/ML VIAL SQ SCH (12:17)
[2021-11-10] MEDS: INSULIN DETEMIR (LEVEMIR) 100 UNIT/ML SYR SQ SCH (12:18)
[2021-11-10] MEDS: ISOSORBIDE MONONITRATE ER 60 MG TAB.ER.24H PO SCH (12:27)
[2021-11-10] MEDS: PANTOPRAZOLE 40 MG TABLET PO SCH (12:27)
[2021-11-10] MEDS: levETIRAcetam 500 MG TAB PO SCH ×2 (12:27→20:36)
[2021-11-10] MEDS: CLOPIDOGREL 75 MG TAB PO SCH (12:28)
[2021-11-10] MEDS ORDERED: cloNIDine HCL 0.1 MG TAB PO SCH (12:41)
[2021-11-10] MEDS ORDERED: ACETAMINOPHEN TAB 500 MG TAB PO PRN (14:31)
--- NOTE | 2021-11-10 16:51 | P.HPIM ---
History of Present Illness H&P Date: 11/10/21 Chief Complaint: Weak History of presenting complaint: This is a 76-year-old patient of Dr. Santana. Chronic stable medical conditions include hyperlipidemia, diabetes, obstructive sleep apnea, osteoarthritis, kidney stones, cognitive impairment-dementia. 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 Patient has a loop recorder placed because multiple episodes of decreased responsiveness since July. Seizures. Patient now presents with feeling weak and tired. Denies any chest pain. Slight shortness of breath. Blood pressure was running high 3 days. No recent change of medication that he remembers. Has been taking his medications. No nausea vomiting. Did complain to the ER physician on board headache for last 3- 4 days. no chest pain. Review of systems: GEN.: Tired EYES: None HEENT: None NECK: None RESPIRATORY: None CARDIOVASCULAR: None GASTROINTESTINAL: None GENITOURINARY: None MUSCULOSKELETAL: None LYMPHATICS: None HEMATOLOGICAL: None PSYCHIATRY: forgetful NEUROLOGICAL: weakness on the right side Past medical history to include: Diabetes, hyperlipidemia, hypertension, obstructive sleep apnea, osteoarthritis, kidney stones, cognitive impairment, stroke hypertension with right-sided weakness, depression, seizure Social history: No history of smoking or alcohol. Lives with his . Physical examination: VITAL SIGNS: 97, 77, 16, 192/97, 99% room air GENERAL: BMI 27.4, reclining in bed, awake, eating. EYES: Pupils equal. Conjunctiva normal. HEENT: External appearance of nose and ears normal, oral cavity grossly normal. NECK: JVD not raised; masses not palpable. HEART: First and second heart sounds are normal; no edema. LUNGS: Respiratory rate normal; clear to auscultation. ABDOMEN: Soft, nontender, liver spleen not palpable, no masses palpable. PSYCH: [Able to answer simple questions. l. MUSCULOSKELETAL:No Clubbing/cyanosis;muscles-grossly intact. Evidence of OA NEUROLOGICAL: Cranial nerves grossly intact; no facial asymmetry, some weakness on the right site.. LYMPHATICS: No lymph nodes palpable in the axilla and neck INVESTIGATIONS, reviewed in the clinical context: White count 6.3 hemoglobin 14.5 platelets 263 sodium 140 potassium 3.7 BUN 24 creatinine 1.57 Troponin I less than 0.012 Coronavirus [PCR]: Not detected EKG tracing personally reviewed by me-normal sinus rhythm. Assessment and plan: -Accelerated hypertension Increased Catapres 0.1 mg twice a day. 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 On Levemir, NovoLog Follow Accu-Cheks closely. -Depression otherwise specified Cymbalta -Hyperlipidemia On Lipitor -Chronic kidney disease stage III from hypertensive nephrosclerosis and diabetic nephropathy Follow renal function Increase Catapres to 0.1 mg twice a day. Continue with Imdur. Cozaar 25 mg daily at bedtime. Other home medications to continue. Follow Accu-Cheks. Care was discussed with the patient.Add Chlorthalidone 25 mg a day. Past Medical History Past Medical History: CVA/TIA, Diabetes Mellitus, Hyperlipidemia, Hypertension, Liver Disease, Renal Disease, Sleep Apnea/CPAP/BIPAP Additional Past Medical History / Comment(s): ARTHRITIS, kidney stones, possible dementia, kidney failure, neuropathy alia legs, carpal tunnel. CVA-oct 20 balance issues,speech impairment,vision impairment, receives injections to eyes r/t bleeding History of Any Multi-Drug Resistant Organisms: None Reported Past Surgical History: Back Surgery Additional Past Surgical History / Comment(s): MASS REMOVED FROM BACK OF HEAD, eye surgery, Past Anesthesia/Blood Transfusion Reactions: No Reported Reaction Past Psychological History: Depression Smoking Status: Never smoker Past Alcohol Use History: None Reported Past Drug Use History: None Reported - Past Family History Father Family Medical History: Diabetes Mellitus Mother Family Medical History: Diabetes Mellitus Brother(s) Family Medical History: Cancer Sister(s) Family Medical History: Cancer Medications and Allergies Home Medications Medication Instructions Recorded Confirmed Type DULoxetine HCL [Cymbalta] 30 mg PO HS 03/13/16 11/10/21 History Isosorbide Mononitrate ER [Imdur] 60 mg PO DAILY 03/13/16 11/10/21 History cloNIDine HCL [Catapres] 0.1 mg PO DAILY 03/13/16 11/10/21 History Omeprazole 20 mg PO DAILY 07/08/20 11/10/21 History Clopidogrel [Plavix] 75 mg PO DAILY #30 tab 07/11/20 11/10/21 Rx Dulaglutide [Trulicity] 1.5 mg SQ SA 11/03/20 11/10/21 History levETIRAcetam [Keppra] 500 mg PO BID 12/11/20 11/10/21 History Atorvastatin [Lipitor] 20 mg PO HS 07/18/21 11/10/21 History Insulin Aspart [NovoLOG Flexpen] 5 units SQ AC-BID@0800,1200 07/28/21 11/10/21 History Insulin Aspart [NovoLOG Flexpen] 12 units SQ AC-SUPPER 07/28/21 11/10/21 History Insulin Aspart [NovoLOG Flexpen] See Protocol SQ AC-TID 07/28/21 11/10/21 History Losartan [Cozaar] 25 mg PO HS 07/28/21 11/10/21 History Insulin Glargine,Hum.rec.anlog 36 units SQ DAILY 08/16/21 11/10/21 History [Lantus Solostar Pen] Dapagliflozin Propanediol [Farxiga] 10 mg PO DAILY 11/10/21 11/10/21 History Furosemide [Lasix] 20 mg PO DAILY 11/10/21 11/10/21 History Vitamin E 400 unit PO DAILY 11/10/21 11/10/21 History Allergies Allergy/AdvReac Type Severity Reaction Status Date / Time No Known Allergies Allergy Verified 11/10/21 08:50 Physical Exam Vitals: Vital Signs Temp Pulse Pulse Resp BP BP Pulse Ox 11/10/21 11:20 97.0 F L 77 16 192/97 99 11/10/21 09:00 80 18 11/10/21 07:00 98.1 F 80 18 156/88 98 11/10/21 06:00 80 24 179/87 97 11/10/21 05:00 98.5 F 89 20 170/84 97 11/10/21 03:00 86 20 181/76 97 11/10/21 02:00 89 20 188/87 97 11/10/21 01:02 83 20 179/77 97 11/09/21 22:54 98.2 F 81 18 222/100 98 Intake and Output 11/09/21 11/10/21 11/10/21 22:59 06:59 14:59 Output Total 880 Balance -880 Output: Urine 880 Other: # Voids 1 Weight 79.379 kg Results CBC & Chem 7: 11/09/21 23:30 11/09/21 23:30 Labs: Abnormal Lab Results - Last 24 Hours (Table) 11/09/21 Range/Units 23:30 BUN 24 H (9-20) mg/dL Creatinine 1.57 H (0.66-1.25) mg/dL
[2021-11-10 16:53] LABS: Glucose,Whole Blood 137 mg/dL (75-99)
[2021-11-10] MEDS: CHLORTHALIDONE 25 MG TAB PO SCH (17:08)
[2021-11-10] MEDS: cloNIDine HCL 0.1 MG TAB PO SCH (20:36)
[2021-11-10] MEDS: DULoxetine HCL 30 MG CAPSULE.DR PO SCH (20:36)
[2021-11-10] MEDS: ATORVASTATIN 20 MG TAB PO SCH (20:36)
[2021-11-10] MEDS ORDERED: LOSARTAN 25 MG TAB PO SCH (21:00)
[2021-11-11 08:29] LABS: Glucose,Whole Blood 168 mg/dL (75-99)
[2021-11-11] MEDS: INSULIN DETEMIR (LEVEMIR) 100 UNIT/ML SYR SQ SCH (08:45)
[2021-11-11] MEDS: CLOPIDOGREL 75 MG TAB PO SCH (08:45)
[2021-11-11] MEDS: PANTOPRAZOLE 40 MG TABLET PO SCH (08:45)
[2021-11-11] MEDS: CHLORTHALIDONE 25 MG TAB PO SCH (08:46)
[2021-11-11] MEDS: Dapagliflozin Propanediol [Farxiga] 10 MG Tablet PO SCH (08:46)
[2021-11-11] MEDS: INSULIN ASPART (NovoLOG) 100 UNIT/ML VIAL SQ SCH ×5 (08:46→20:42)
[2021-11-11] MEDS: levETIRAcetam 500 MG TAB PO SCH ×2 (10:00→20:43)
[2021-11-11] MEDS: ISOSORBIDE MONONITRATE ER 60 MG TAB.ER.24H PO SCH (10:00)
[2021-11-11] MEDS: cloNIDine HCL 0.1 MG TAB PO SCH ×3 (10:01→21:41)
[2021-11-11 12:58] LABS: Glucose,Whole Blood 242 mg/dL (75-99)
[2021-11-11 17:46] LABS: Glucose,Whole Blood 212 mg/dL (75-99)
[2021-11-11 20:10] LABS: Glucose,Whole Blood 262 mg/dL (75-99)
[2021-11-11] MEDS: ATORVASTATIN 20 MG TAB PO SCH (20:43)
[2021-11-11] MEDS ORDERED: LOSARTAN 50 MG TAB PO SCH (21:00)
[2021-11-11] MEDS: DULoxetine HCL 30 MG CAPSULE.DR PO SCH (21:41)
--- NOTE | 2021-11-11 23:41 | P.PN ---
Progress Note - Text Progress Note Date: 11/11/21 Chief Complaint: Weak History of presenting complaint: This is a 76-year-old patient of Dr. Santana. Chronic stable medical conditions include hyperlipidemia, diabetes, obstructive sleep apnea, osteoarthritis, kidney stones, cognitive impairment-dementia. 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 Patient has a loop recorder placed because multiple episodes of decreased responsiveness since July. Seizures. Patient now presents with feeling weak and tired. Denies any chest pain. Slight shortness of breath. Blood pressure was running high 3 days. No recent change of medication that he remembers. Has been taking his medications. No nausea vomiting. Did complain to the ER physician on board headache for last 3- 4 days. no chest pain. November 11: Some improvement of blood pressure. Increase the p.m. dose of Cozaar to 50 mg. Increase Catapres .1 mg 3 times a day. We'll see how the blood pressure goes today. Oral intake fair. Active Medications Acetaminophen (Acetaminophen Tab 500 Mg Tab) 500 mg PO Q6HR PRN PRN Reason: Fever and/ or MILD Pain Last Admin: 11/10/21 14:50 Dose: 500 mg Documented by: Atorvastatin Calcium (Atorvastatin 20 Mg Tab) 20 mg PO [facility] Last Admin: 11/11/21 20:43 Dose: 20 mg Documented by: Chlorthalidone (Chlorthalidone 25 Mg Tab) 25 mg PO DAILY [facility] Last Admin: 11/11/21 08:46 Dose: 25 mg Documented by: Clonidine (Clonidine Hcl 0.1 Mg Tab) 0.1 mg PO TID [facility] Last Admin: 11/11/21 21:41 Dose: 0.1 mg Documented by: Clopidogrel Bisulfate (Clopidogrel 75 Mg Tab) 75 mg PO DAILY [facility] Last Admin: 11/11/21 08:45 Dose: 75 mg Documented by: Duloxetine HCl (Duloxetine Hcl 30 Mg Capsule.Dr) 30 mg PO [facility] Last Admin: 11/11/21 21:41 Dose: 30 mg Documented by: Insulin Aspart (Insulin Aspart (Novolog) 100 Unit/Ml Vial) 3 unit SQ AC- BID@0800,1200 [facility] Last Admin: 11/11/21 13:15 Dose: 3 unit Documented by: Insulin Aspart (Insulin Aspart (Novolog) 100 Unit/Ml Vial) 0 unit SQ [facility]; Protocol Last Admin: 11/11/21 20:42 Dose: 4 unit Documented by: Insulin Detemir (Insulin Detemir (Levemir) 100 Unit/Ml Syr) 20 unit SQ DAILY [facility] Last Admin: 11/11/21 08:45 Dose: 20 unit Documented by: Isosorbide Mononitrate (Isosorbide Mononitrate Er 60 Mg Tab.Er.24h) 60 mg PO DAILY [facility] Last Admin: 11/11/21 10:00 Dose: 60 mg Documented by: Levetiracetam (Levetiracetam 500 Mg Tab) 500 mg PO BID [facility] Last Admin: 11/11/21 20:43 Dose: 500 mg Documented by: Losartan Potassium (Losartan 50 Mg Tab) 50 mg PO HS [facility] Last Admin: 11/11/21 20:43 Dose: 50 mg Documented by: Naloxone HCl (Naloxone 0.4 Mg/Ml 1 Ml Vial) 0.2 mg IV Q2M PRN PRN Reason: Opioid Reversal Dapagliflozin Propanediol [Farxiga ] 10 Mg Tablet 10 mg PO DAILY [facility] Last Admin: 11/11/21 08:46 Dose: Not Given Documented by: Pantoprazole Sodium (Pantoprazole 40 Mg Tablet) 40 mg PO AC-BRKFST [facility] Last Admin: 11/11/21 08:45 Dose: 40 mg Documented by: Sodium Chloride (Sodium Chloride 0.9% Flush 10 Ml Syringe) 10 ml IV DIRECTED PRN PRN Reason: FLUSH Past medical history to include: Diabetes, hyperlipidemia, hypertension, obstructive sleep apnea, osteoarthritis, kidney stones, cognitive impairment, stroke hypertension with right-sided weakness, depression, seizure Social history: No history of smoking or alcohol. Lives with his . Physical examination: VITAL SIGNS: 97.8, 78, 18, 183/84, 98% room air GENERAL: , reclining in bed, comfortable EYES: Pupils equal. Conjunctiva normal. HEENT: External appearance of nose and ears normal, oral cavity grossly normal. NECK: JVD not raised; masses not palpable. HEART: First and second heart sounds are normal; no edema. LUNGS: Respiratory rate normal; clear to auscultation. ABDOMEN: Soft, nontender, liver spleen not palpable, no masses palpable. PSYCH: [Able to answer simple questions. l. MUSCULOSKELETAL:No Clubbing/cyanosis;muscles-grossly intact. Evidence of OA NEUROLOGICAL: Cranial nerves grossly intact; no facial asymmetry, some weakness on the right site.. INVESTIGATIONS, reviewed in the clinical context: White count 6.3 hemoglobin 14.5 platelets 263 sodium 140 potassium 3.7 BUN 24 creatinine 1.57 Troponin I less than 0.012 Coronavirus [PCR]: Not detected EKG tracing personally reviewed by me-normal sinus rhythm. Assessment and plan: -Accelerated hypertension: Uncontrolled Increased Catapres 0.1 mg 3 times a day. 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 On Levemir, NovoLog Follow Accu-Cheks closely. -Depression otherwise specified Cymbalta -Hyperlipidemia On Lipitor -Chronic kidney disease stage III from hypertensive nephrosclerosis and diabetic nephropathy Follow renal function Increase Catapres to 0.1 mg 3 times a day. Continue with Imdur. Increase Tpfrdl51 mg daily at bedtime. Continue other medications.
[2021-11-12 02:40] VITALS: TEMP 98.4
[2021-11-12 07:34] VITALS: PULSE 74; RESP 15
[2021-11-12 08:02] LABS: Glucose,Whole Blood 180 mg/dL (75-99)
[2021-11-12] MEDS: INSULIN DETEMIR (LEVEMIR) 100 UNIT/ML SYR SQ SCH (08:15)
[2021-11-12] MEDS: PANTOPRAZOLE 40 MG TABLET PO SCH (08:16)
[2021-11-12] MEDS: ISOSORBIDE MONONITRATE ER 60 MG TAB.ER.24H PO SCH (08:16)
[2021-11-12] MEDS: INSULIN ASPART (NovoLOG) 100 UNIT/ML VIAL SQ SCH ×4 (08:16→12:47)
[2021-11-12] MEDS: cloNIDine HCL 0.1 MG TAB PO SCH (08:16)
[2021-11-12] MEDS: levETIRAcetam 500 MG TAB PO SCH (08:17)
[2021-11-12] MEDS: CLOPIDOGREL 75 MG TAB PO SCH (08:17)
[2021-11-12] MEDS: Dapagliflozin Propanediol [Farxiga] 10 MG Tablet PO SCH (08:17)
[2021-11-12] MEDS: CHLORTHALIDONE 25 MG TAB PO SCH (08:17)
[2021-11-12 11:44] LABS: Glucose,Whole Blood 240 mg/dL (75-99)
[2021-11-12] MEDS ORDERED: cloNIDine HCL 0.1 MG TAB PO STA (12:02)
[2021-11-12 13:02] VITALS: BP 154/75
[2021-11-12] MEDS ORDERED: cloNIDine HCL 0.2 MG TAB PO SCH (21:00)
--- NOTE | 2021-11-12 22:53 | P.DS ---
Providers Date of admission: 11/10/21 00:52 Expected date of discharge: 11/12/21 Attending physician: Tadeo Dickerson Primary care physician: Dennis Santana [facility] Course: Chief Complaint: Weak History of presenting complaint: This is a 76-year-old patient of Dr. Santana. Chronic stable medical conditions include hyperlipidemia, diabetes, obstructive sleep apnea, osteoarthritis, kidney stones, cognitive impairment-dementia. 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 Patient has a loop recorder placed because multiple episodes of decreased responsiveness since A[place] rand[place]. Seizures. Patient now presents with feeling weak and tired. Denies any chest pain. Slight shortness of breath. Blood pressure was running high 3 days. No recent change of medication that he remembers. Has been taking his medications. No nausea vomiting. Did complain to the ER physician on board headache for last 3- 4 days. no chest pain. November 11: Some improvement of blood pressure. Increase the p.m. dose of Cozaar to 50 mg. Increase Catapres .1 mg 3 times a day. We'll see how the blood pressure goes today. Oral intake fair. November 12: Patient is Catapres was changed to 0.2 mg twice a day. Chlorthalidone added. P.m. dose of Cozaar 50 mg. Blood pressure well controlled. Discussed with patient and the nurse. Discussion and discharge planning more than 35 minutes Past medical history to include: Diabetes, hyperlipidemia, hypertension, obstructive sleep apnea, osteoarthritis, kidney stones, cognitive impairment, stroke hypertension with right-sided weakness, depression, seizure Social history: No history of smoking or alcohol. Lives with his . Physical examination: VITAL SIGNS: Afebrile, 74, 15, 154/75, 98% room air GENERAL: , Sitting up bed, comfortable EYES: Pupils equal. Conjunctiva normal. HEENT: External appearance of nose and ears normal, oral cavity grossly normal. NECK: JVD not raised; masses not palpable. HEART: First and second heart sounds are normal; no edema. LUNGS: Respiratory rate normal; clear to auscultation. ABDOMEN: Soft, nontender, liver spleen not palpable, no masses palpable. PSYCH: [Able to answer simple questions. l. MUSCULOSKELETAL:No Clubbing/cyanosis;muscles-grossly intact. Evidence of OA NEUROLOGICAL: Cranial nerves grossly intact; no facial asymmetry, some weakness on the right site.. INVESTIGATIONS, reviewed in the clinical context: White count 6.3 hemoglobin 14.5 platelets 263 sodium 140 potassium 3.7 BUN 24 creatinine 1.57 Troponin I less than 0.012 Coronavirus [PCR]: Not detected EKG tracing personally reviewed by me-normal sinus rhythm. Assessment and plan: -Accelerated hypertension: Not controlled Catapres 0.2 mg twice a day. Continue Imdur 60 mg daily, increase Cozaar to 50 mg daily at bedtime. 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 On Levemir, NovoLog Follow Accu-Cheks closely. -Depression otherwise specified Cymbalta -Hyperlipidemia On Lipitor -Chronic kidney disease stage III from hypertensive nephrosclerosis and diabetic nephropathy Follow renal function Disposition: Home Patient Condition at Discharge: Fair Plan - Discharge Summary Discharge Rx Participant: No New Discharge Prescriptions: New Chlorthalidone [Hygroton] 25 mg PO DAILY #30 tab Continue Isosorbide Mononitrate ER [Imdur] 60 mg PO DAILY DULoxetine HCL [Cymbalta] 30 mg PO HS Omeprazole 20 mg PO DAILY Clopidogrel [Plavix] 75 mg PO DAILY #30 tab Dulaglutide [Trulicity] 1.5 mg SQ SA levETIRAcetam [Keppra] 500 mg PO BID Atorvastatin [Lipitor] 20 mg PO HS Insulin Aspart [NovoLOG Flexpen] 12 units SQ AC-SUPPER Vitamin E 400 unit PO DAILY Insulin Aspart [NovoLOG Flexpen] 5 units SQ AC-BID@0800,1200 Losartan [Cozaar] 25 mg PO HS Dapagliflozin Propanediol [Farxiga] 10 mg PO DAILY Changed cloNIDine HCL [Catapres] 0.2 mg PO BID #60 tab Insulin Glargine,Hum.rec.anlog [Lantus Solostar Pen] 30 units SQ DAILY #0 Discontinued Furosemide [Lasix] 20 mg PO DAILY Insulin Aspart [NovoLOG Flexpen] See Protocol SQ AC-TID Discharge Medication List DULoxetine HCL [Cymbalta] 30 mg PO HS 03/13/16 [History] Isosorbide Mononitrate ER [Imdur] 60 mg PO DAILY 03/13/16 [History] Omeprazole 20 mg PO DAILY 07/08/20 [History] Clopidogrel [Plavix] 75 mg PO DAILY #30 tab 07/11/20 [Rx] Dulaglutide [Trulicity] 1.5 mg SQ SA 11/03/20 [History] levETIRAcetam [Keppra] 500 mg PO BID 12/11/20 [History] Atorvastatin [Lipitor] 20 mg PO HS 07/18/21 [History] Insulin Aspart [NovoLOG Flexpen] 5 units SQ AC-BID@0800,1200 07/28/21 [History] Insulin Aspart [NovoLOG Flexpen] 12 units SQ AC-SUPPER 07/28/21 [History] Losartan [Cozaar] 25 mg PO HS 07/28/21 [History] Dapagliflozin Propanediol [Farxiga] 10 mg PO DAILY 11/10/21 [History] Vitamin E 400 unit PO DAILY 11/10/21 [History] Chlorthalidone [Hygroton] 25 mg PO DAILY #30 tab 11/12/21 [Rx] Insulin Glargine,Hum.rec.anlog [Lantus Solostar Pen] 30 units SQ DAILY #0 11/12/21 [Rx] cloNIDine HCL [Catapres] 0.2 mg PO BID #60 tab 11/12/21 [Rx] Follow up Appointment(s)/Referral(s): Dennis Santana DO [Primary Care Provider] - 11/22/21 1:20 pm () [facility], [NON-STAFF] - 1-2 Days Discharge Disposition: HOME SELF-CARE
== END 2021-11-12 14:35 | disposition home or self-care (01) ==
LOC: EC 22:48 → 6NMEDSUR 11-10 00:52
PROVIDERS: ADMIT Hospitalist; ATTEND Hospitalist
DX: I12.9 Hypertensive chronic kidney disease with stage 1 through stage 4 chronic kidney disease, or unspecified chronic kidney disease (principal); E11.22 Type 2 diabetes mellitus with diabetic chronic kidney disease; N18.30 Chronic kidney disease, stage 3 unspecified; G40.909 Epilepsy, unspecified, not intractable, without status epilepticus; G43.909 Migraine, unspecified, not intractable, without status migrainosus; I69.351 Hemiplegia and hemiparesis following cerebral infarction affecting right dominant side; I69.311 Memory deficit following cerebral infarction; R53.1 Weakness; E78.5 Hyperlipidemia, unspecified; M19.90 Unspecified osteoarthritis, unspecified site; H54.7 Unspecified visual loss; F32.9 Major depressive disorder, single episode, unspecified; G47.33 Obstructive sleep apnea (adult) (pediatric); R41.89 Other symptoms and signs involving cognitive functions and awareness; E11.40 Type 2 diabetes mellitus with diabetic neuropathy, unspecified; F32.A Depression, unspecified; Z20.822 Contact with and (suspected) exposure to COVID-19; Z87.442 Personal history of urinary calculi; Z79.899 Other long term (current) drug therapy; Z79.84 Long term (current) use of oral hypoglycemic drugs; Z79.4 Long term (current) use of insulin; Z79.02 Long term (current) use of antithrombotics/antiplatelets; Z95.818 Presence of other cardiac implants and grafts; Z83.3 Family history of diabetes mellitus; Z80.9 Family history of malignant neoplasm, unspecified
CPT/HCPCS: 96374; 99285; 36415; 93005; 97162; 97166; 80048; 83735; 84484; 85025; 85610; 85730; 87635; 70450; G0378 ×3; J0360

== ENCOUNTER 2021-11-17 12:31 | Observation (INO) | payer MEDICARE ==
[2021-11-17] MEDS ORDERED: SODIUM CHLORIDE 0.9% 1,000 ML IV STA (12:47)
--- NOTE | 2021-11-17 12:51 | ED ---
General Adult HPI - General Chief complaint: Altered Mental Status Stated complaint: AMS Time Seen by Provider: 11/17/21 12:35 Source: patient, EMS, RN notes reviewed Mode of arrival: EMS Limitations: altered mental status - History of Present Illness Initial comments: Patient is a pleasant 76-year-old male presenting to the emergency department following reported syncopal episode. Patient was sitting down at lunch and became unresponsive. Patient does not recall the episode. Patient states he feels fine and has no complaints. Patient is not oriented to year however he feels this is normal for him. Patient does report history of previous stroke. Patient denies chest or back pain. No headache or weakness. Patient does not feel confused. No abdominal pain. - Related Data Home Medications Medication Instructions Recorded Confirmed DULoxetine HCL [Cymbalta] 30 mg PO HS 03/13/16 11/17/21 Isosorbide Mononitrate ER [Imdur] 60 mg PO DAILY 03/13/16 11/17/21 Omeprazole 20 mg PO DAILY 07/08/20 11/17/21 Dulaglutide [Trulicity] 1.5 mg SQ SA 11/03/20 11/17/21 levETIRAcetam [Keppra] 500 mg PO BID 12/11/20 11/17/21 Atorvastatin [Lipitor] 20 mg PO HS 07/18/21 11/17/21 Insulin Aspart [NovoLOG Flexpen] 5 units SQ AC-BID@0800,1200 07/28/21 11/17/21 Insulin Aspart [NovoLOG Flexpen] 12 units SQ AC-SUPPER 07/28/21 11/17/21 Losartan [Cozaar] 25 mg PO HS 07/28/21 11/17/21 Dapagliflozin Propanediol [Farxiga] 10 mg PO DAILY 11/10/21 11/17/21 Vitamin E 400 unit PO DAILY 11/10/21 11/17/21 Previous Rx's Medication Instructions Recorded Clopidogrel [Plavix] 75 mg PO DAILY #30 tab 07/11/20 Chlorthalidone [Hygroton] 25 mg PO DAILY #30 tab 11/12/21 Insulin Glargine,Hum.rec.anlog 30 units SQ DAILY #0 11/12/21 [Lantus Solostar Pen] cloNIDine HCL [Catapres] 0.2 mg PO BID #60 tab 11/12/21 Allergies Allergy/AdvReac Type Severity Reaction Status Date / Time No Known Allergies Allergy Verified 11/17/21 14:35 Review of Systems ROS Statement: Those systems with pertinent positive or pertinent negative responses have been documented in the HPI. ROS Other: All systems not noted in ROS Statement are negative. Constitutional: Denies: fever Eyes: Denies: eye pain ENT: Denies: ear pain Respiratory: Denies: cough, dyspnea Cardiovascular: Denies: chest pain Endocrine: Denies: fatigue Gastrointestinal: Denies: abdominal pain, vomiting Genitourinary: Denies: dysuria Musculoskeletal: Denies: back pain Skin: Denies: rash Neurological: Reports: as per HPI. Denies: headache, weakness, confusion Past Medical History Past Medical History: CVA/TIA, Diabetes Mellitus, Hyperlipidemia, Hypertension, Liver Disease, Renal Disease, Sleep Apnea/CPAP/BIPAP Additional Past Medical History / Comment(s): ARTHRITIS, kidney stones, possible dementia, kidney failure, neuropathy alia legs, carpal tunnel. CVA-jul 17 balanc e issues,speech impairment,vision impairment, receives injections to eyes r/t bleeding History of Any Multi-Drug Resistant Organisms: None Reported Past Surgical History: Back Surgery Additional Past Surgical History / Comment(s): MASS REMOVED FROM BACK OF HEAD, eye surgery, Past Anesthesia/Blood Transfusion Reactions: No Reported Reaction Past Psychological History: Depression Smoking Status: Never smoker Past Alcohol Use History: None Reported Past Drug Use History: None Reported - Past Family History Father Family Medical History: Diabetes Mellitus Mother Family Medical History: Diabetes Mellitus Brother(s) Family Medical History: Cancer Sister(s) Family Medical History: Cancer General Exam Limitations: altered mental status General appearance: alert, in no apparent distress Head exam: Present: atraumatic, normocephalic Eye exam: Present: normal appearance, PERRL, EOMI ENT exam: Present: mucous membranes dry Neck exam: Present: normal inspection. Absent: tenderness, meningismus Respiratory exam: Present: normal lung sounds bilaterally. Absent: chest wall tenderness Cardiovascular Exam: Present: regular rate, normal rhythm Expanded Peripheral pulses: 2+: Radial (R), Radial (L), Posterior Tibialis (R), Posterior Tibialis (L) GI/Abdominal exam: Present: soft. Absent: tenderness Extremities exam: Present: normal inspection. Absent: pedal edema, calf tenderness Neurological exam: Present: alert, CN II-XII intact. Absent: motor sensory deficit Expanded Neurological exam: Present: protecting the airway Patient oriented to: Present: person, place. Absent: time Speech: Present: fluid speech Cranial nerves: EOM's Intact: Normal Motor strength exam: RUE: 5, LUE: 5, RLE: 5, LLE: 5 Eye Response: (4) open spontaneously Motor Response: (6) obeys commands Verbal Response: (4) confused conversation Psychiatric exam: Present: normal affect, normal mood Skin exam: Present: normal color Course Vital Signs 11/17/21 12:33 Temperature 98.7 F Pulse Rate 66 Respiratory 18 Rate Blood Pressure 120/60 O2 Sat by Pulse 98 Oximetry EKG Findings - EKG Comments: EKG Findings:: Sinus rhythm with rate of 67. MN 175. QRS 110. QT 402. QTC 417. Left axis. Normal QRS. No acute ST change. Medical Decision Making - Medical Decision Making Patient reevaluated and resting comfortably in bed. Patient and family updated on results and plan. Case discussed with Dr. Small, covering Dr. Dickerson, who will admit covering for Dr. Santana. - Lab Data Result diagrams: 11/17/21 13:08 11/17/21 13:08 Lab Results 11/17/21 11/17/21 11/17/21 Range/Units 13:08 13:08 13:08 WBC 6.5 (3.8-10.6) k/uL RBC 4.44 (4.30-5.90) m/uL Hgb 13.8 (13.0-17.5) gm/dL Hct 42.7 (39.0-53.0) % MCV 96.2 (80.0-100.0) fL MCH 31.1 (25.0-35.0) pg MCHC 32.3 (31.0-37.0) g/dL RDW 13.5 (11.5-15.5) % Plt Count 116 L D (150-450) k/uL MPV 8.1 Neutrophils % 67 % Lymphocytes % 23 % Monocytes % 6 % Eosinophils % 2 % Basophils % 2 % Neutrophils # 4.3 (1.3-7.7) k/uL Lymphocytes # 1.5 (1.0-4.8) k/uL Monocytes # 0.4 (0-1.0) k/uL Eosinophils # 0.1 (0-0.7) k/uL Basophils # 0.1 (0-0.2) k/uL PT 10.0 (9.0-12.0) sec INR 0.9 (<1.2) APTT 23.7 (22.0-30.0) sec D-Dimer 0.54 (<0.60) mg/L FEU Sodium (137-145) mmol/L Potassium (3.5-5.1) mmol/L Chloride (98-107) mmol/L Carbon Dioxide (22-30) mmol/L Anion Gap mmol/L BUN (9-20) mg/dL Creatinine (0.66-1.25) mg/dL Est GFR (CKD-EPI)AfAm (>60 ml/min/1.73 sqM) Est GFR (CKD-EPI)NonAf (>60 ml/min/1.73 sqM) Glucose (74-99) mg/dL Calcium (8.4-10.2) mg/dL Magnesium (1.6-2.3) mg/dL Total Bilirubin (0.2-1.3) mg/dL AST (17-59) U/L ALT (4-49) U/L Alkaline Phosphatase (38-126) U/L Troponin I (0.000-0.034) ng/mL Total Protein (6.3-8.2) g/dL Albumin (3.5-5.0) g/dL Urine Color Light Yellow Urine Appearance Clear (Clear) Urine pH 6.0 (5.0-8.0) Ur Specific [place] 1.008 (1.001-1.035) Urine Protein 2+ H (Negative) Urine Glucose (UA) 4+ H (Negative) Urine Ketones Negative (Negative) Urine Blood Negative (Negative) Urine Nitrite Negative (Negative) Urine Bilirubin Negative (Negative) Urine Urobilinogen <2.0 (<2.0) mg/dL Ur Leukocyte Esterase Negative (Negative) Urine RBC 1 (0-5) /hpf Urine WBC <1 (0-5) /hpf 11/17/21 11/17/21 Range/Units 13:08 13:08 WBC (3.8-10.6) k/uL RBC (4.30-5.90) m/uL Hgb (13.0-17.5) gm/dL Hct (39.0-53.0) % MCV (80.0-100.0) fL MCH (25.0-35.0) pg MCHC (31.0-37.0) g/dL RDW (11.5-15.5) % Plt Count (150-450) k/uL MPV Neutrophils % % Lymphocytes % % Monocytes % % Eosinophils % % Basophils % % Neutrophils # (1.3-7.7) k/uL Lymphocytes # (1.0-4.8) k/uL Monocytes # (0-1.0) k/uL Eosinophils # (0-0.7) k/uL Basophils # (0-0.2) k/uL PT (9.0-12.0) sec INR (<1.2) APTT (22.0-30.0) sec D-Dimer (<0.60) mg/L FEU Sodium 134 L (137-145) mmol/L Potassium 3.9 (3.5-5.1) mmol/L Chloride 105 (98-107) mmol/L Carbon Dioxide 21 L (22-30) mmol/L Anion Gap 8 mmol/L BUN 31 H (9-20) mg/dL Creatinine 1.57 H (0.66-1.25) mg/dL Est GFR (CKD-EPI)AfAm 49 (>60 ml/min/1.73 sqM) Est GFR (CKD-EPI)NonAf 43 (>60 ml/min/1.73 sqM) Glucose 169 H (74-99) mg/dL Calcium 8.5 (8.4-10.2) mg/dL Magnesium 2.1 (1.6-2.3) mg/dL Total Bilirubin 0.4 (0.2-1.3) mg/dL AST 25 (17-59) U/L ALT 22 (4-49) U/L Alkaline Phosphatase 121 (38-126) U/L Troponin I <0.012 (0.000-0.034) ng/mL Total Protein 6.0 L (6.3-8.2) g/dL Albumin 3.3 L (3.5-5.0) g/dL Urine Color Urine Appearance (Clear) Urine pH (5.0-8.0) Ur Specific [place] (1.001-1.035) Urine Protein (Negative) Urine Glucose (UA) (Negative) Urine Ketones (Negative) Urine Blood (Negative) Urine Nitrite (Negative) Urine Bilirubin (Negative) Urine Urobilinogen (<2.0) mg/dL Ur Leukocyte Esterase (Negative) Urine RBC (0-5) /hpf Urine WBC (0-5) /hpf - Radiology Data Radiology results: report reviewed (CT brain shows old posterior infarct. No acute process.), image reviewed (Chest x-ray shows chronic changes. No definite acute process.) Disposition Clinical Impression: Syncope Disposition: ADMITTED IP TO THIS HOSP Is patient prescribed a controlled substance at d/c from ED?: No Referrals: Dennis Santana DO [Primary Care Provider] - 1-2 days Decision Time: 17:28
[2021-11-17 13:28] LABS: Albumin 3.3 g/dL (3.5-5.0); Calcium 8.5 mg/dL (8.4-10.2); Magnesium 2.1 mg/dL (1.6-2.3); Potassium 3.9 mmol/L (3.5-5.1); Total Bilirubin 0.4 mg/dL (0.2-1.3)
[2021-11-17 13:29] LABS: Basophils # (A) 0.1 k/uL (0-0.2); Basophils % (A) 2 %; Eosinophils # (A) 0.1 k/uL (0-0.7); Eosinophils % (A) 2 %; HCT 42.7 % (39.0-53.0); HGB 13.8 gm/dL (13.0-17.5); Lymphocytes # (A) 1.5 k/uL (1.0-4.8); Lymphocytes % (A) 23 %; MCH 31.1 pg (25.0-35.0); MCHC 32.3 g/dL (31.0-37.0); MCV 96.2 fL (80.0-100.0); Mean Platelet Volume 8.1; Monocytes # (A) 0.4 k/uL (0-1.0); Monocytes % (A) 6 %; Neutrophils # (A) 4.3 k/uL (1.3-7.7); Neutrophils % (A) 67 %; RBC 4.44 m/uL (4.30-5.90); RDW 13.5 % (11.5-15.5); WBC 6.5 k/uL (3.8-10.6)
[2021-11-17 13:33] LABS: Platelet Count 116 k/uL (150-450)
--- NOTE | 2021-11-17 14:03 | XR ---
EXAMINATION TYPE: XR chest 2V DATE OF EXAM: 11/17/2021 COMPARISON: 08/16/2021 HISTORY: 76-year-old male syncope TECHNIQUE: AP and lateral views FINDINGS: Heart normal size. Aorta and pulmonary vasculature within normal limits. Mild interstitial prominence is a chronic appearance. The cortical device projecting over the left chest. Anterior endplate spond ylosis throughout, possible dish versus ankylosing spondylitis. No consolidation or pleural effusion. IMPRESSION: Chronic appearing changes. No definite acute process. Query DISH versus ankylosing spondylitis.
[2021-11-17 14:49] LABS: INR 0.9 (<1.2); Partial Thromboplastin Time 23.7 sec (22.0-30.0)
--- NOTE | 2021-11-17 15:56 | CT ---
EXAMINATION TYPE: CT brain wo con DATE OF EXAM: 11/17/2021 COMPARISON: 11/09/2021 HISTORY: Syncope, BP issue CT DLP: 1201.9 mGycm Automated exposure control for dose reduction was used. There is large wedge-shaped area of hypodensity left posterior temporal lobe and occipital lobe relat ed to old infarct. There is also 2 cm area of old infarct right occipital lobe. There is 2.5 cm old i nfarct right posterior temporal lobe. There is no midline shift. There is no sign of intracranial hem orrhage. There is mild atrophy. Skull base is intact. IMPRESSION: Old bilateral posterior infarcts. No acute intracranial abnormality. No change compared to old exam.
[2021-11-17 16:05] LABS: Appearance,Urine Clear (Clear); Bilirubin,Urine Negative (Negative); Blood,Urine Negative (Negative); Color,Urine Light Yellow; Glucose,Urine (UA) 4+ (Negative); Ketones,Urine Negative (Negative); Leukocyte Esterase,Urine Negative (Negative); Nitrite,Urine Negative (Negative); Protein,Urine 2+ (Negative); RBC,Urine 1 /hpf (0-5); Specific Gravity,Urine 1.008 (1.001-1.035); Urobilinogen,Urine <2.0 mg/dL (<2.0); WBC,Urine <1 /hpf (0-5)
[2021-11-17] MEDS ORDERED: NALOXONE 0.4 MG/ML 1 ML VIAL IV PRN (17:29)
[2021-11-17] MEDS: SODIUM CHLORIDE 0.9% 1,000 ML IV SCH (19:31)
[2021-11-18 07:27] LABS: Basophils # (A) 0.1 k/uL (0-0.2); Basophils % (A) 1 %; Eosinophils # (A) 0.1 k/uL (0-0.7); Eosinophils % (A) 1 %; HCT 43.9 % (39.0-53.0); Lymphocytes # (A) 1.8 k/uL (1.0-4.8); Lymphocytes % (A) 29 %; MCH 29.8 pg (25.0-35.0); MCHC 31.9 g/dL (31.0-37.0); MCV 93.3 fL (80.0-100.0); Mean Platelet Volume 7.7; Monocytes # (A) 0.3 k/uL (0-1.0); Monocytes % (A) 6 %; Neutrophils # (A) 3.7 k/uL (1.3-7.7); Neutrophils % (A) 61 %; RDW 14.2 % (11.5-15.5)
[2021-11-18 07:36] LABS: ALT 24 U/L (4-49); AST 28 U/L (17-59); African American GFR (CKD) 48 (>60 ml/min/1.73 sqM); Albumin 3.4 g/dL (3.5-5.0); Albumin/Globulin Ratio 1.1; Alkaline Phosphatase 133 U/L (38-126); Anion Gap 3 mmol/L; Blood Urea Nitrogen 28 mg/dL (9-20); Calcium 9.4 mg/dL (8.4-10.2); Carbon Dioxide 27 mmol/L (22-30); Chloride 109 mmol/L (98-107); Glucose 121 mg/dL (74-99); Non-African American GFR(CKD) 41 (>60 ml/min/1.73 sqM); Potassium 3.9 mmol/L (3.5-5.1); Sodium 139 mmol/L (137-145); Total Bilirubin 0.3 mg/dL (0.2-1.3); Total Protein 6.4 g/dL (6.3-8.2)
[2021-11-18 07:54] LABS: Platelet Count 277 k/uL (150-450)
--- NOTE | 2021-11-18 08:24 | P.CRDCN ---
History of Present Illness Consult date: 11/18/21 History of present illness: The patient is a 76-year-old male who presented was possible syncope. He is not quite sure what happened. According to him he was eating and does not recall any other symptoms. It is unclear if he had a full syncopal episode. He has prior history of CVA, hypertension, hyperlipidemia, diabetes mellitus as well as a history of CAD by cardiac catheterization with mild to moderate disease. His ejection fraction in the past was normal. He has a loop recorder that in the past showed no evidence of malignant arrhythmia. He is awake alert but appears to be somewhat confused about his prior history and his presentation. He denies any significant dyspnea. He has no chest discomfort, dizziness or palpitations. He denies any PND, orthopnea or peripheral edema. Since admission is in sinus mechanism with no malignant arrhythmia. His lab data showed the BUN/creatinine of 28 and 1.61, he has a history of chronic kidney disease. His troponin less than 0.012 and his potassium 3.9. His EKG shows sinus mechanism with sinus arrhythmia, nonspecific ST-T wave changes. His computed tomography scan of the head shows no new lesions. Review of system: Respiratory: No history of asthma, bronchitis or recent cough. GI: No nausea, vomiting. No history of peptic ulcer disease. No recent GI bleed. : No hematuria or dysuria. Nervous System: He has a history of stroke in the past and possible seizures. Physical examination: 76-year-old male alert no apparent distress, having difficulties recalling events. According to the records he has a history of dementia. Blood pressure running between 120 and 170 systolic. Heart rate in the 70s. Head: Normocephalic. Eyes: Sclerae nonicteric. Neck: Good carotid upstroke, no bruit, no jugular venous distention. Lungs: Clear to auscultation. Heart: Regular rate and rhythm, S1-S2, no S3, no rub. Systolic ejection murmur at the base Abdomen: Soft nontender, positive bowel sounds no organomegaly. Extremities: No edema, intact distal pulses. Impression: 1. Possible syncope, no evidence of malignant arrhythmia 2. History of stroke 3. History of hypertension 4. Mild to moderate CAD in the past 5. History of hyperlipidemia Plan: 1. Interrogate his loop recorder 2. Continue home medications 3. Follow blood pressure and if needed add hydralazine 4. Obtain an echocardiogram with Doppler 5. Depending on his progress further recommendations will be made. Thank you for this consult we will follow with you Past Medical History Past Medical History: CVA/TIA, Diabetes Mellitus, Hyperlipidemia, Hypertension, Liver Disease, Renal Disease, Sleep Apnea/CPAP/BIPAP Additional Past Medical History / Comment(s): ARTHRITIS, kidney stones, possible dementia, kidney failure, neuropathy alia legs, carpal tunnel. CVA-jul 17 balance issues,speech impairment,vision impairment, receives injections to eyes r/t bleeding History of Any Multi-Drug Resistant Organisms: None Reported Past Surgical History: Back Surgery Additional Past Surgical History / Comment(s): MASS REMOVED FROM BACK OF HEAD, eye surgery, Past Anesthesia/Blood Transfusion Reactions: No Reported Reaction Past Psychological History: Depression Smoking Status: Never smoker Past Alcohol Use History: None Reported Past Drug Use History: None Reported - Past Family History Father Family Medical History: Diabetes Mellitus Mother Family Medical History: Diabetes Mellitus Brother(s) Family Medical History: Cancer Sister(s) Family Medical History: Cancer Medications and Allergies Home Medications Medication Instructions Recorded Confirmed Type DULoxetine HCL [Cymbalta] 30 mg PO HS 03/13/16 11/17/21 History Isosorbide Mononitrate ER [Imdur] 60 mg PO DAILY 03/13/16 11/17/21 History Omeprazole 20 mg PO DAILY 07/08/20 11/17/21 History Clopidogrel [Plavix] 75 mg PO DAILY #30 tab 07/11/20 11/17/21 Rx Dulaglutide [Trulicity] 1.5 mg SQ SA 11/03/20 11/17/21 History levETIRAcetam [Keppra] 500 mg PO BID 12/11/20 11/17/21 History Atorvastatin [Lipitor] 20 mg PO HS 07/18/21 11/17/21 History Insulin Aspart [NovoLOG Flexpen] 5 units SQ AC-BID@0800,1200 07/28/21 11/17/21 History Insulin Aspart [NovoLOG Flexpen] 12 units SQ AC-SUPPER 07/28/21 11/17/21 History Losartan [Cozaar] 25 mg PO HS 07/28/21 11/17/21 History Dapagliflozin Propanediol [Farxiga] 10 mg PO DAILY 11/10/21 11/17/21 History Vitamin E 400 unit PO DAILY 11/10/21 11/17/21 History Chlorthalidone [Hygroton] 25 mg PO DAILY #30 tab 11/12/21 11/17/21 Rx Insulin Glargine,Hum.rec.anlog 30 units SQ DAILY #0 11/12/21 11/17/21 Rx [Lantus Solostar Pen] cloNIDine HCL [Catapres] 0.2 mg PO BID #60 tab 11/12/21 11/17/21 Rx Allergies Allergy/AdvReac Type Severity Reaction Status Date / Time No Known Allergies Allergy Verified 11/17/21 14:35 Physical Exam Vitals: Vital Signs Temp Pulse Pulse Resp BP BP Pulse Ox 11/18/21 06:40 167/81 11/18/21 06:14 170/80 11/18/21 05:50 98.5 F 72 17 178/85 98 11/18/21 02:49 98.7 F 75 18 170/90 98 11/18/21 01:01 64 17 11/17/21 21:14 64 17 176/84 98 11/17/21 20:14 66 18 161/69 97 11/17/21 12:33 98.7 F 66 18 120/60 98 Intake and Output 11/17/21 11/18/21 11/18/21 22:59 06:59 14:59 Other: Voiding Method Toilet Bedside Commode Urinal # Voids 2 Results 11/18/21 06:35 11/18/21 06:35 Cardiac Enzymes 11/17/21 11/17/21 11/17/21 Range/Units 13:08 13:08 18:32 AST 25 (17-59) U/L Troponin I <0.012 <0.012 (0.000-0.034) ng/mL 11/17/21 11/18/21 Range/Units 21:42 06:35 AST 28 (17-59) U/L Troponin I <0.012 (0.000-0.034) ng/mL Coagulation 11/17/21 Range/Units 13:08 PT 10.0 (9.0-12.0) sec APTT 23.7 (22.0-30.0) sec CBC 11/17/21 11/18/21 Range/Units 13:08 06:35 WBC 6.5 6.0 (3.8-10.6) k/uL RBC 4.44 4.70 (4.30-5.90) m/uL Hgb 13.8 14.0 (13.0-17.5) gm/dL Hct 42.7 43.9 (39.0-53.0) % Plt Count 116 L D 277 D (150-450) k/uL Comprehensive Metabolic Panel 11/17/21 11/18/21 Range/Units 13:08 06:35 Sodium 134 L 139 (137-145) mmol/L Potassium 3.9 3.9 (3.5-5.1) mmol/L Chloride 105 109 H (98-107) mmol/L Carbon Dioxide 21 L 27 (22-30) mmol/L BUN 31 H 28 H (9-20) mg/dL Creatinine 1.57 H 1.61 H (0.66-1.25) mg/dL Glucose 169 H 121 H (74-99) mg/dL Calcium 8.5 9.4 (8.4-10.2) mg/dL AST 25 28 (17-59) U/L ALT 22 24 (4-49) U/L Alkaline Phosphatase 121 133 H (38-126) U/L Total Protein 6.0 L 6.4 (6.3-8.2) g/dL Albumin 3.3 L 3.4 L (3.5-5.0) g/dL Current Medications Generic Name Dose Route Start Last Admin Trade Name Freq PRN Reason Stop Dose Admin Sodium Chloride 1,000 mls @ 20 mls/hr 11/17/21 17:30 11/17/21 19:31 Saline 0.9% IV Not Given .Q24H BETSY Naloxone HCl 0.2 mg 11/17/21 17:29 Naloxone 0.4 Mg/Ml 1 Ml Vial IV Q2M PRN Opioid Reversal Intake and Output 11/17/21 11/18/21 11/18/21 22:59 06:59 14:59 Other: Voiding Method Toilet Bedside Commode Urinal # Voids 2 11/18/21 06:35 11/18/21 06:35
[2021-11-18 08:57] LABS: Glucose,Whole Blood 181 mg/dL (75-99)
[2021-11-18] MEDS: INSULIN DETEMIR (LEVEMIR) 100 UNIT/ML SYR SQ SCH (10:10)
[2021-11-18] MEDS: levETIRAcetam 500 MG TAB PO SCH ×2 (10:10→20:57)
[2021-11-18] MEDS: CLOPIDOGREL 75 MG TAB PO SCH (10:10)
[2021-11-18] MEDS: ISOSORBIDE MONONITRATE ER 60 MG TAB.ER.24H PO SCH (10:11)
[2021-11-18] MEDS: CHLORTHALIDONE 25 MG TAB PO SCH (10:11)
[2021-11-18] MEDS: VITAMIN E (DL,TOCOPHERYL ACET) 400 UNIT (180 MG) CAP PO SCH (10:12)
[2021-11-18] MEDS: cloNIDine HCL 0.2 MG TAB PO SCH ×2 (10:13→20:57)
[2021-11-18] MEDS: PANTOPRAZOLE 40 MG TABLET PO SCH (10:17)
[2021-11-18] MEDS: NON FORMULARY DRUG (Dapagliflozin Propanediol [Farxiga] 10 MG Tablet) PO SCH (10:17)
[2021-11-18] MEDS ORDERED: SODIUM CHLORIDE 0.9% 1,000 ML IV SCH (11:00)
[2021-11-18 12:22] LABS: Glucose,Whole Blood 224 mg/dL (75-99)
--- NOTE | 2021-11-18 12:55 | ECHOF ---
Referral Reason:syncope MEASUREMENTS -------- HEIGHT: 170.2 cm WEIGHT: 79.4 kg BP: IVSd: 1.2 cm (0.6 - 1.1) LVIDd: 3.9 cm (3.9 - 5.3) LVPWd: 1.5 cm (0.6 - 1.1) IVSs: 1.8 cm LVIDs: 3.1 cm LVPWs: 2.1 cm LAESV Index (A-L): 24.39 ml/m Ao Diam: 3.0 cm (2.0 - 3.7) AV Cusp: 2.4 cm (1.5 - 2.6) LA Diam: 3.6 cm (2.7 - 3.8) MV EXCURSION: 18.742 mm (> 18.000) MV EF SLOPE: 95 mm/s (70 - 150) EPSS: 0.5 cm MV E Erasto: 0.63 m/s MV DecT: 293 ms MV A Erasto: 0.95 m/s MV E/A Ratio: 0.66 RAP: 5.00 mmHg RVSP: 17.82 mmHg FINDINGS -------- Sinus rhythm. This was a technically adequate study. The left ventricular size is normal. There is mild concentric left ventricular hypertrophy. Overa ll left ventricular systolic function is normal with, an EF between 55 - 60 %. The diastolic fillin g pattern is normal for the age of the patient 9.86. The right ventricle is normal in size. Normal LA size by volume 22+/-6 ml/m2. The right atrial size is normal. The aortic valve is trileaflet and appears structurally normal. There is mild aortic regurgitation. The mitral valve is normal. Mild mitral regurgitation is present. The tricuspid valve appears structurally normal. Mild tricuspid regurgitation present. Right vent ricular systolic pressure is normal at < 35 mmHg. There is no pulmonic regurgitation present. The aortic root size is normal. There is no pericardial effusion. CONCLUSIONS -------- 1. There is mild concentric left ventricular hypertrophy. 2. Overall left ventricular systolic function is normal with, an EF between 55 - 60 %. 3. Normal LA size by volume 22+/-6 ml/m2. 4. There is mild aortic regurgitation. 5. Mild mitral regurgitation is present. 6. Mild tricuspid regurgitation present. 7. There is no pericardial effusion. UNEMPLOYMENT CLAIMS ADJUDICATOR: Lupe Flynn RDCS
[2021-11-18] MEDS: INSULIN ASPART (NovoLOG) 100 UNIT/ML VIAL SQ SCH (13:06)
--- NOTE | 2021-11-18 14:10 | HP ---
HISTORY AND PHYSICAL DATE OF SERVICE: 11/18/2021 CHIEF COMPLAINTS: Change in mental status, syncope. HISTORY OF PRESENT ILLNESS: This 76-year-old gentleman with a past medical history of diabetes mellitus, CVA, hypertension, hyperlipidemia, being followed by Dr. Santana in the outpatient setting, had syncopal episodes. The patient apparently had change in mental status. The patient was became unresponsive. Cardiology is evaluating the patient, including pacemaker interrogation. No chest pain. No palpitations. No fever. PAST MEDICAL HISTORY: Reviewed. It includes diabetes, hypertension, hyperlipidemia. HOME MEDICATIONS: Reviewed. They include Keppra, Catapres, vitamin D. Doses and other medications are also reviewed. ALLERGIES: NONE. FAMILY HISTORY: Diabetes mellitus in the family. SOCIAL HISTORY: No history of smoking. REVIEW OF SYSTEMS: Fourteen-point review of systems negative except as mentioned earlier. PHYSICAL EXAMINATION: Pulse 79, blood pressure 116/84, respirations 16. HEENT: Conjunctivae normal. NECK: No jugular venous distention. No carotid bruit. No lymph node enlargement. CARDIOVASCULAR: S1, S2 muffled. No S3. No S4. RESPIRATION: Breath sounds diminished at the bases. A few scattered rhonchi. No crackles. ABDOMEN: Soft, nontender. No mass palpable. LEGS: No edema. No swelling. NERVOUS SYSTEM: Higher functions as mentioned earlier. Moves all 4 limbs. No deficit. LYMPHATICS: No lymph node palpable in neck, axillae or groin. SKIN: No ulcer, rash, bleeding. JOINTS: No active deforming arthropathy. LABS: CBC within normal limits. Sodium potassium 3.9. Glucose noted. ASSESSMENT: 1. Syncope and change in mental status; possible acute stroke versus transient ischemic attack. 2. Rule out cardiac arrhythmia. 3. Diabetes mellitus, type 2. 4. Hypertension. 5. Hyperlipidemia. 6. History of liver disease. RECOMMENDATIONS AND DISCUSSION: In this 76-year-old gentleman who presented with multiple complex medical issues, we will monitor the patient closely. Check orthostatic vitals. Cardiology and neurology evaluations. Resume the home medications. Prognosis is guarded because of the multiple complex medical issues. Further recommendations to follow. Will discontinue the IV MMODL / IJN: [id number] / MTDD
[2021-11-18] MEDS: HEPARIN SODIUM,PORCINE/PF 5,000 UNIT/0.5 ML SYRINGE SQ SCH ×2 (15:34→20:58)
[2021-11-18] MEDS: SODIUM CHLORIDE 0.9% 1,000 ML IV SCH (15:34)
[2021-11-18 17:21] LABS: Glucose,Whole Blood 218 mg/dL (75-99)
[2021-11-18] MEDS ORDERED: INSULIN ASPART (NovoLOG) 100 UNIT/ML VIAL SQ SCH (17:30)
[2021-11-18] MEDS ORDERED: ATORVASTATIN 20 MG TAB PO SCH (21:00)
[2021-11-18] MEDS ORDERED: DULoxetine HCL 30 MG CAPSULE.DR PO SCH (21:00)
[2021-11-18] MEDS ORDERED: LOSARTAN 25 MG TAB PO SCH (21:00)
[2021-11-18] MEDS: ACETAMINOPHEN TAB 325 MG TAB PO PRN (21:06)
[2021-11-18 21:19] LABS: Glucose,Whole Blood 136 mg/dL (75-99)
[2021-11-19 07:28] LABS: Glucose,Whole Blood 125 mg/dL (75-99)
[2021-11-19 08:33] LABS: Basophils % (A) 1 %; Eosinophils # (A) 0.1 k/uL (0-0.7); Eosinophils % (A) 1 %; HCT 42.4 % (39.0-53.0); Lymphocytes # (A) 2.2 k/uL (1.0-4.8); Lymphocytes % (A) 34 %; MCH 30.9 pg (25.0-35.0); MCV 93.7 fL (80.0-100.0); Mean Platelet Volume 7.8; Monocytes # (A) 0.4 k/uL (0-1.0); Monocytes % (A) 6 %; Neutrophils # (A) 3.5 k/uL (1.3-7.7); Neutrophils % (A) 56 %; Platelet Count 260 k/uL (150-450); RBC 4.53 m/uL (4.30-5.90); RDW 14.2 % (11.5-15.5); WBC 6.4 k/uL (3.8-10.6)
[2021-11-19 08:46] LABS: ALT 33 U/L (4-49); AST 39 U/L (17-59); African American GFR (CKD) 47 (>60 ml/min/1.73 sqM); Albumin 3.5 g/dL (3.5-5.0); Albumin/Globulin Ratio 1.2; Alkaline Phosphatase 136 U/L (38-126); Anion Gap 7 mmol/L; Blood Urea Nitrogen 29 mg/dL (9-20); Calcium 9.3 mg/dL (8.4-10.2); Carbon Dioxide 22 mmol/L (22-30); Chloride 109 mmol/L (98-107); Glucose 151 mg/dL (74-99); Non-African American GFR(CKD) 40 (>60 ml/min/1.73 sqM); Potassium 3.8 mmol/L (3.5-5.1); Sodium 138 mmol/L (137-145); Total Bilirubin 0.3 mg/dL (0.2-1.3); Total Protein 6.5 g/dL (6.3-8.2)
[2021-11-19] MEDS: INSULIN DETEMIR (LEVEMIR) 100 UNIT/ML SYR SQ SCH (09:16)
[2021-11-19] MEDS: ISOSORBIDE MONONITRATE ER 60 MG TAB.ER.24H PO SCH (09:17)
[2021-11-19] MEDS: INSULIN ASPART (NovoLOG) 100 UNIT/ML VIAL SQ SCH ×2 (09:17→12:34)
[2021-11-19] MEDS: CLOPIDOGREL 75 MG TAB PO SCH (09:17)
[2021-11-19] MEDS: PANTOPRAZOLE 40 MG TABLET PO SCH (09:17)
[2021-11-19] MEDS: cloNIDine HCL 0.2 MG TAB PO SCH (09:18)
[2021-11-19] MEDS: CHLORTHALIDONE 25 MG TAB PO SCH (09:18)
[2021-11-19] MEDS: VITAMIN E (DL,TOCOPHERYL ACET) 400 UNIT (180 MG) CAP PO SCH (09:18)
[2021-11-19] MEDS: levETIRAcetam 500 MG TAB PO SCH (09:18)
[2021-11-19] MEDS: HEPARIN SODIUM,PORCINE/PF 5,000 UNIT/0.5 ML SYRINGE SQ SCH (09:19)
[2021-11-19] MEDS: NON FORMULARY DRUG (Dapagliflozin Propanediol [Farxiga] 10 MG Tablet) PO SCH (09:19)
--- NOTE | 2021-11-19 09:33 | P.CNNES ---
History of Present Illness Consult date: 11/18/21 Requesting physician: Frieda Díaz Reason for Consult: Syncope History of Present Illness: Patient is a 76-year-old male came to the hospital yesterday at 12:31 PM by ambulance. Patient states that he does not remember why he came to the hospital. He states that he has history of couple strokes in the past. As per EMS flow sheet, they found patient unresponsive sitting in a chair. Family stated that patient was sitting at the table when he became unresponsive and family could not wake him up. Patient was recently admitted to the hospital for uncontrolled hypertension where they changed some of medications around. Patient denied having any problems before becoming unresponsive. When EMS arrived, patient was unresponsive to verbal stimuli, but moaned at pain stimuli, blood sugar slightly elevated, blood pressure extremely low and normal sinus on monitor. Patient became alert and confused after putting him into ambulance. His blood pressure was 90/60, pulse rate 46, respirations 16, saturation 92%. Blood sugar 274. His blood pressure further drop down to 82/44. Then improved to 104/60. Vital signs on arrival blood pressure 120/60, pulse rate 66 temperature 98.7. Patient had orthostatics checked today, which was essentially negative, in which his supine blood pressure 139/68, pulse rate 75. Sitting up was 145/66 and pulse is 77. On standing, blood pressure was 135/68 and pulse rate of 80. Patient's blood test shows normal CBC, PT/PTT, normal d-dimer. Sodium 134 potassium 3.9, BUN 31, creatinine 1.57. Hepatic panel normal. Troponins negative. UA negative. Huerta virus PCR negative. CT head revealed old bilateral posterior infarcts. No acute intracranial abnormality. No change compared to old exam from 11/09/2021. Patient is well known to me from previous admissions to the hospital for history of strokes and possible seizure that he was seen on 07/09/2020 and 07/13/2020 respectively. He was subsequently seen by Dr. Jf Hall on 11/03/2020 for probable breakthrough seizure. He was placed on Keppra 750 mg twice a day. Patient was also recommended dual antiplatelet medication and high-dose statins. Patient does have left ICA stenosis 70% at the level of siphon. Patient was recommended to follow-up with Dr. Centeno at that time. Review of Systems Patient admits to having occipital headache. Denies any chest pain, abdominal pain, nausea vomiting diarrhea. Denies any fever or chills. All other 14 point of review of systems reviewed and noncontributory to the present less. Past Medical History Past Medical History: CVA/TIA, Diabetes Mellitus, Hyperlipidemia, Hypertension, Liver Disease, Renal Disease, Sleep Apnea/CPAP/BIPAP Additional Past Medical History / Comment(s): ARTHRITIS, kidney stones, possible dementia, kidney failure, neuropathy alia legs, carpal tunnel. CVA-jul 17 balance issues,speech impairment,vision impairment, receives injections to eyes r/t bleeding History of Any Multi-Drug Resistant Organisms: None Reported Past Surgical History: Back Surgery Additional Past Surgical History / Comment(s): MASS REMOVED FROM BACK OF HEAD, eye surgery, Past Anesthesia/Blood Transfusion Reactions: No Reported Reaction Past Psychological History: Depression Smoking Status: Never smoker Past Alcohol Use History: None Reported Past Drug Use History: None Reported - Past Family History Father Family Medical History: Diabetes Mellitus Mother Family Medical History: Diabetes Mellitus Brother(s) Family Medical History: Cancer Sister(s) Family Medical History: Cancer Medications and Allergies Home Medications Medication Instructions Recorded Confirmed Type DULoxetine HCL [Cymbalta] 30 mg PO HS 03/13/16 11/17/21 History Isosorbide Mononitrate ER [Imdur] 60 mg PO DAILY 03/13/16 11/17/21 History Omeprazole 20 mg PO DAILY 07/08/20 11/17/21 History Clopidogrel [Plavix] 75 mg PO DAILY #30 tab 07/11/20 11/17/21 Rx Dulaglutide [Trulicity] 1.5 mg SQ SA 11/03/20 11/17/21 History levETIRAcetam [Keppra] 500 mg PO BID 12/11/20 11/17/21 History Atorvastatin [Lipitor] 20 mg PO HS 07/18/21 11/17/21 History Insulin Aspart [NovoLOG Flexpen] 5 units SQ AC-BID@0800,1200 07/28/21 11/17/21 History Insulin Aspart [NovoLOG Flexpen] 12 units SQ AC-SUPPER 07/28/21 11/17/21 History Losartan [Cozaar] 25 mg PO HS 07/28/21 11/17/21 History Dapagliflozin Propanediol [Farxiga] 10 mg PO DAILY 11/10/21 11/17/21 History Vitamin E 400 unit PO DAILY 11/10/21 11/17/21 History Chlorthalidone [Hygroton] 25 mg PO DAILY #30 tab 11/12/21 11/17/21 Rx Insulin Glargine,Hum.rec.anlog 30 units SQ DAILY #0 11/12/21 11/17/21 Rx [Lantus Solostar Pen] cloNIDine HCL [Catapres] 0.2 mg PO BID #60 tab 11/12/21 11/17/21 Rx Allergies Allergy/AdvReac Type Severity Reaction Status Date / Time No Known Allergies Allergy Verified 11/17/21 14:35 Physical Examination - Vital Signs Vital Signs: Vital Signs Temp Pulse Pulse Pulse Pulse Pulse Resp 11/18/21 15:00 98.0 F 77 80 75 17 11/18/21 07:00 98.3 F 79 16 11/18/21 06:40 11/18/21 06:14 11/18/21 05:50 98.5 F 72 17 11/18/21 02:49 98.7 F 75 18 11/18/21 01:01 64 17 11/17/21 21:14 64 17 11/17/21 20:14 66 18 BP BP BP BP BP Pulse Ox 11/18/21 15:00 145/66 135/68 139/68 97 11/18/21 07:00 169/84 97 11/18/21 06:40 167/81 11/18/21 06:14 170/80 11/18/21 05:50 178/85 98 11/18/21 02:49 170/90 98 11/18/21 01:01 11/17/21 21:14 176/84 98 11/17/21 20:14 161/69 97 Intake and Output 11/18/21 11/18/21 11/18/21 06:59 14:59 22:59 Intake Total 236 Balance 236 Intake: Oral 236 Other: Voiding Method Toilet Toilet Bedside Commode Bedside Commode Urinal Urinal # Voids 2 1 Patient is an elderly male, in no acute distress. Patient is laying comfortably in the bed. Patient is alert awake. He knows he is in [facility], could not tell the month or the year or the president. Speech and language functions are normal. Patient can name and repeat well. Attention, concentration and fund of knowledge is limited. 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 His extraocular muscles are intact with no nystagmus. Face is symmetric, tongue protrudes to the midline. Palatal elevation and sensation normal, hearing and shoulder shrug normal, facial sensation normal. Shoulder shrug normal. On muscle strength testing, there is no pronator drift and the strength is normal in arms and legs distally and proximally. Deep tendon reflexes are diminished and plantars are flat bilaterally. Sensory to touch is equal with no neglect. Cerebellar function showed no ataxia for [id number] testing. Tone and bulk of muscles normal. Gait not checked. On general examination, there is no carotid bruit or murmur, S1-S2 audible. Abdomen is soft nontender. Bowel sounds present. No organomegaly. Chest is clear. Peripheral pulses are present. No edema. Results - Laboratory Findings CBC and BMP: 11/19/21 08:11 11/19/21 08:11 Abnormal Lab Findings: Abnormal Labs 11/17/21 11/17/21 11/17/21 13:08 13:08 13:08 Plt Count 116 L D Sodium 134 L Chloride Carbon Dioxide 21 L BUN 31 H Creatinine 1.57 H Glucose 169 H POC Glucose (mg/dL) Alkaline Phosphatase Total Protein 6.0 L Albumin 3.3 L Urine Protein 2+ H Urine Glucose (UA) 4+ H 11/18/21 11/18/21 11/18/21 06:35 08:56 12:21 Plt Count Sodium Chloride 109 H Carbon Dioxide BUN 28 H Creatinine 1.61 H Glucose 121 H POC Glucose (mg/dL) 181 H 224 H Alkaline Phosphatase 133 H Total Protein Albumin 3.4 L Urine Protein Urine Glucose (UA) 11/18/21 17:20 Plt Count Sodium Chloride Carbon Dioxide BUN Creatinine Glucose POC Glucose (mg/dL) 218 H Alkaline Phosphatase Total Protein Albumin Urine Protein Urine Glucose (UA) Assessment and Plan Assessment: * Episode of unresponsiveness, exact cause is uncertain. His examination is back to baseline at this time. Patient's blood pressure was very low at the scene dipping down from 90/50 to 82/44. This suggests vasovagal versus arrhythmia versus orthostatic hypotension. Differential also includes seizure, but typically blood pressure goes up to the seizure. * History of probable seizure disorder as per previous hospitalizations * History of multiple strokes in the past * History of left ICA stenosis. * Cognitive impairment * Diabetes * Chronic renal insufficiency * Hypertension * Hyperlipidemia Plan: * We will check EEG rule out epileptiform activity * Carotid Doppler to rule out stenosis. * Patient has been seen by cardiology, who are planning to interrogate his loop recorder to rule out any arrhythmia. * 2-D echo revealed mild concentric LVH. Overall left-ventricular systolic function is normal with EF between 55-60%. Normal left atrial size. Mild AR, mild MR. * Continue patient on Keppra 500 mg twice a day. * Continue Plavix 75 mg daily and Lipitor 20 mg. * Patient's last hemoglobin A1c 8.2 on 11/03/2020. We will repeat hemoglobin A1c. * Tried to call patient's spouse and daughter to get collateral history, but going directly to the voicemail. * Neurology will follow. Thank you for the consult. I spoke to patient's daughter on the phone. She states that patient's episode of unresponsiveness was related to low blood pressure. She states that when patient was unresponsive, his blood pressure was 77/44, which went down to 50s systolic. She states that about 2-1/2 months ago patient's blood pressure was significantly dropping for which he was hospitalized and his blood pressure medications were adjusted. He was recently admitted to the hospital on 11/09/2021 for uncontrolled blood pressure. He was hospitalized for 3-1/2 days and his blood pressure medications were adjusted. Now he comes back with low blood pressures. Cardiology on board. Patient also followed up with Dr. Garcia for left ICA stenosis. It appears patient also underwent cerebral angiogram. They were told that patient needs to optimize all stroke risk factors. No intervention was recommended by Dr Santos. Patient now follows up with Dr. Garrison.
--- NOTE | 2021-11-19 09:43 | P.PN ---
Subjective The patient is a 76-year-old male with a past medical history of hypertension, nonobstructive mild to moderate coronary artery disease, hyperlipidemia, type 2 diabetes, CVA, chronic kidney disease. He has a loop recorder that in the past showed no evidence of malignant arrhythmia. He follows in the office with Dr. Gallagher. He presented was possible syncope. He is not quite sure what happened. According to him he was eating and does not recall any other symptoms. It is unclear if he had a full syncopal episode. Patient seen and examined at bedside, no acute distress. Loop recorder was interrogated with no malignant arrhythmia noted. Troponin was negative. EKG shows sinus mechanism with sinus arrhythmia, nonspecific ST-T wave changes. He denies any significant dyspnea. He has no chest discomfort, dizziness or palpitations. He denies any PND, orthopnea or peripheral edema. Since admission is in sinus mechanism with no malignant arrhythmia. Echocardiogram revealed an EF 5560%, mild aortic regurgitation, mild mitral reg urgitation, mild tricuspid regurgitation. Labs, sodium 138, potassium 3.8, BUN 29, serum creatinine 1.6, CBC unremarkable. Physical examination: Blood pressure 172/77 prior to morning medications, heart rate 74, afebrile, saturations greater than 92% on room air GENERAL: Well-appearing, well-nourished and in no acute distress. NECK: Supple without JVD or thyromegaly. LUNGS: Breath sounds clear to auscultation bilaterally. Respiration equal and unlabored. No wheezes, rales or rhonchi. HEART: Regular rate and rhythm without murmurs, rubs or gallops. S1 and S2 heard. EXTREMITIES: Normal range of motion, no edema. No clubbing or cyanosis. Peripheral pulses intact. Impression: Possible syncope, no evidence of malignant arrhythmia History of stroke History of hypertension Mild to moderate CAD in the past History of hyperlipidemia Plan: From cardiology perspective, patient stable to be discharged home. Recommend continuing home cardiac medications and follow-up in the office with Dr. Lisbeth walker and 12 weeks. Objective - Vital Signs Vital signs: Vital Signs Temp 98.1 F 11/19/21 07:05 Pulse 74 11/19/21 07:05 Resp 14 11/19/21 09:34 BP 172/77 11/19/21 07:05 Pulse Ox 99 11/19/21 02:33 Intake & Output 11/18/21 11/19/21 11/19/21 18:59 06:59 18:59 Intake Total 354 Balance 354 Intake: Oral 354 Other: Voiding Method Toilet Toilet Bedside Commode Bedside Commode Urinal Urinal # Voids 1 3 # Bowel Movements 2 - Labs CBC & Chem 7: 11/19/21 08:11 11/19/21 08:11 Labs: Abnormal Lab Results - Last 24 Hours (Table) 11/18/21 11/18/21 11/18/21 Range/Units 12:21 17:20 21:18 Chloride (98-107) mmol/L BUN (9-20) mg/dL Creatinine (0.66-1.25) mg/dL Glucose (74-99) mg/dL POC Glucose (mg/dL) 224 H 218 H 136 H (75-99) mg/dL Alkaline Phosphatase (38-126) U/L 11/19/21 11/19/21 Range/Units 07:26 08:11 Chloride 109 H (98-107) mmol/L BUN 29 H (9-20) mg/dL Creatinine 1.64 H (0.66-1.25) mg/dL Glucose 151 H (74-99) mg/dL POC Glucose (mg/dL) 125 H (75-99) mg/dL Alkaline Phosphatase 136 H (38-126) U/L
[2021-11-19] MEDS ORDERED: amLODIPine 10 MG TAB PO SCH (12:00)
--- NOTE | 2021-11-19 12:00 | US ---
EXAMINATION TYPE: US carotid duplex BILAT DATE OF EXAM: 11/19/2021 COMPARISON: US carotid 2020 CLINICAL HISTORY: Syncope versus seizure, hx of left ICA stenosis. Exam done portable EXAM MEASUREMENTS: RIGHT: Peak Systolic Velocity (PSV) cm/sec ----- Right CCA: 93.5 ----- Right ICA: 84.4 ----- Right ECA: 122.0 ICA/CCA ratio: 0.9 RIGHT: End Diastole cm/sec ----- Right CCA: 14.3 ----- Right ICA: 23.8 ----- Right ECA: 7.1 LEFT: Peak Systolic Velocity (PSV) cm/sec ----- Left CCA: 74.6 ----- Left ICA: 44.8 ----- Left ECA: 107.0 ICA/CCA ratio: 0.6 LEFT: End Diastole cm/sec ----- Left CCA: 0.0 ----- Left ICA: 3.7 ----- Left ECA: 0.0 VERTEBRALS (direction of flow): Right Vertebral: Antegrade Left Vertebral: Antegrade Rhythm: Arrhythmia No significant stenosis grayscale, color Doppler, spectral Doppler imaging performed of the carotid a rteries. Some mild atheromatous change present at the carotid bulbs. Waveform analysis does not show significant stenosis of the internal carotid arteries. IMPRESSION: No hemodynamic significant stenosis of the proximal internal carotid arteries by Doppler criteria, an indirect measurement of carotid stenosis . Cardiac arrhythmia noted incidentally. Criteria for Assigning % of Stenosis / Diameter reduction (Estimation based on the indirect measurements of the internal carotid artery velocities (ICA PSV). 1. Normal (no stenosis)=ICA PSV < 125 cm/s: ratio < 2.0: ICA EDV<40 cm/s. 2. Less than 50% stenosis=ICA PSV < 125 cm/s: ratio < 2.0: ICA EDV<40 cm/s. 3. 50 to 69% stenosis=ICA PSV of 125 to 230 cm/s: ration 2.0 ? 4.0: ICA EDV 40-100 cm/s. 4. Greater than 70% stenosis to near occlusion= ICA PSV > 230 cm/s: ratio > 4.0: ICA EDV > 100 cm/s. 5. Near occlusion= ICA PSV velocities may be low or undetectable: variable ratio and ICA EDV. 6. Total occlusion=unable to detect flow.
[2021-11-19 12:30] LABS: Glucose,Whole Blood 187 mg/dL (75-99)
[2021-11-19] MEDS: ACETAMINOPHEN TAB 325 MG TAB PO PRN (12:35)
--- NOTE | 2021-11-19 13:03 | EEG ---
ELECTROENCEPHALOGRAM REPORT DATE OF SERVICE: 11/19/2021 PREAMBLE: This is a 76-year-old male with syncope versus seizure. EEG FINDINGS: This is a 21-channel digital EEG recorded with video component, utilizing 10/20 international system with referential and bipolar montages. Background consists of well-developed, moderately well regulated, low amplitude 8-9 hertz alpha that is posterior-dominant and seems to be reactive to eye opening and closing. Photic driving response was not seen. Patient appears to be drowsy and then in some stage 2 sleep with presence of diffuse low amplitude mixed theta and some delta waves, with sleep spindles seen sporadically. No epileptiform activity was seen. IMPRESSION: This is essentially a normal EEG during wakefulness, drowsiness and stage 2 sleep. No definitive epileptiform activity was seen. MMODL / IJN: [id number] /
[2021-11-19 15:49] VITALS: BP 125/64; PULSE 68; RESP 16; TEMP 98.2
[2021-11-19 16:24] LABS: Chol/HDL Ratio 2.11 Ratio; LDL Cholesterol,Calculated 34.9 mg/dL (0.0-131.0)
[2021-11-19 17:08] LABS: Glucose,Whole Blood 235 mg/dL (75-99)
--- NOTE | 2021-11-21 00:15 | P.DS ---
Providers Date of admission: 11/17/21 17:31 Expected date of discharge: 11/19/21 Attending physician: Gerri Davis MD Consults: 11/17/21 17:32 Consult Physician Routine Consulting Provider: Sam Gallagher Consult Reason/Comments: syncope Do you want consulting provider notified?: Yes 11/18/21 10:43 Consult Physician Routine Consulting Provider: Jf Hall Consult Reason/Comments: syncope Do you want consulting provider notified?: Yes Primary care physician: Dennis Santana [facility] Course: Final diagnosis Syncope and change in mental status, possible acute stroke versus TIA Rule out cardiac arrhythmia Diabetes mellitus,type 2 Hypertension Hyperlipidemia History of liver disease Discharge disposition Patient is being discharged in a stable condition with guarded prognosis to home. Patient will follow-up with Dr. Santana in the outpatient setting upon discharge. Patient is to continue to follow up with cardiology and neurology as scheduled. Total time taken is greater than 35 minutes. Hospital Course This is a 76-year-old male who was recently admitted with syncopal episodes and was being closely monitored. Patient was evaluated by cardiology and also neurology. Patient to follow up with both outpatient. Loop recorder. Medication adjustments were made again to blood pressure medications as they have been multiple times on previous admissions. Patient was having hypotension, but has been hypertensive since admission. Patient had EEG done which was negative. Currently no reports of chest pain, shortness of breath, or palpitations. Alec ramirez is afebrile. No reports of nausea or vomiting and patient is tolerating diet. Patient will be discharged home today with home care. Guarded prognosis. On exam vital signs are stable. Cardio S1, S2 are muffled. Respiratory system shows diminished breath sounds at the bases with no wheezing or rhonchi noted. Abdomen is soft and nontender. Nervous system shows no focal deficits. Please refer to medication reconciliation sheet for a list of medications. The impression and plan of care has been dictated by Beata Galeana, nurse practitioner as directed. MD Veto I have performed a history and examination and MDM of this patient, discussed the same with the dictator, and agree with the dictator's assessment and plan as written ,documented as a scribe. Based on total visit time, I have performed more than 50% of the visit. Any additional findings or plans will be noted. Patient Condition at Discharge: Stable Plan - Discharge Summary New Discharge Prescriptions: New amLODIPine [Norvasc] 10 mg PO DAILY 30 Days #30 tab Acetaminophen Tab [Tylenol] 650 mg PO Q6HR PRN tab PRN Reason: Fever And/ Or Pain Continue Isosorbide Mononitrate ER [Imdur] 60 mg PO DAILY DULoxetine HCL [Cymbalta] 30 mg PO HS Omeprazole 20 mg PO DAILY Clopidogrel [Plavix] 75 mg PO DAILY #30 tab Dulaglutide [Trulicity] 1.5 mg SQ SA levETIRAcetam [Keppra] 500 mg PO BID Atorvastatin [Lipitor] 20 mg PO HS Insulin Aspart [NovoLOG Flexpen] 12 units SQ AC-SUPPER Vitamin E 400 unit PO DAILY cloNIDine HCL [Catapres] 0.2 mg PO BID #60 tab Insulin Glargine,Hum.rec.anlog [Lantus Solostar Pen] 30 units SQ DAILY #0 Insulin Aspart [NovoLOG Flexpen] 5 units SQ AC-BID@0800,1200 Losartan [Cozaar] 25 mg PO HS Dapagliflozin Propanediol [Farxiga] 10 mg PO DAILY Discontinued Chlorthalidone [Hygroton] 25 mg PO DAILY #30 tab Discharge Medication List DULoxetine HCL [Cymbalta] 30 mg PO HS 03/13/16 [History] Isosorbide Mononitrate ER [Imdur] 60 mg PO DAILY 03/13/16 [History] Omeprazole 20 mg PO DAILY 07/08/20 [History] Clopidogrel [Plavix] 75 mg PO DAILY #30 tab 07/11/20 [Rx] Dulaglutide [Trulicity] 1.5 mg SQ SA 11/03/20 [History] levETIRAcetam [Keppra] 500 mg PO BID 12/11/20 [History] Atorvastatin [Lipitor] 20 mg PO HS 07/18/21 [History] Insulin Aspart [NovoLOG Flexpen] 5 units SQ AC-BID@0800,1200 07/28/21 [History] Insulin Aspart [NovoLOG Flexpen] 12 units SQ AC-SUPPER 07/28/21 [History] Losartan [Cozaar] 25 mg PO HS 07/28/21 [History] Dapagliflozin Propanediol [Farxiga] 10 mg PO DAILY 11/10/21 [History] Vitamin E 400 unit PO DAILY 11/10/21 [History] Insulin Glargine,Hum.rec.anlog [Lantus Solostar Pen] 30 units SQ DAILY #0 11/12/21 [Rx] cloNIDine HCL [Catapres] 0.2 mg PO BID #60 tab 11/12/21 [Rx] Acetaminophen Tab [Tylenol] 650 mg PO Q6HR PRN tab 11/19/21 [Rx] amLODIPine [Norvasc] 10 mg PO DAILY 30 Days #30 tab 11/19/21 [Rx] Follow up Appointment(s)/Referral(s): Ke Oliver MD [REFERRING] - 1 Week (office will call PT with appointment ) Dennis Santana DO [Primary Care Provider] - 1-2 days [facility], [NON-STAFF] - 1-2 Days Sam Gallagher MD [STAFF PHYSICIAN] - 12/03/21 2:45 pm Ambulatory/Diagnostic Orders: Basic Metabolic Panel [LAB.AMB] Time Frame: 2 Days, Location: None Selected Activity/Diet/Wound Care/Special Instructions: Activity Limited until follow-up Follow-up with primary care provider on discharge Follow-up with cardiology outpatient in 1-2 weeks Follow-up with neurology outpatient in one week Continue taking medications as prescribed Recommend repeat labs in 2-3 days If blood pressure systolic (top number) less than 120 hold b/p meds and call primary care for further instructions. SEE MEDS TO STOP THAT ARE HIGHLIGHTED ON MED SHEET Discharge Disposition: HOME WITH HOME HEALTH SERVICES
[2021-11-23] MEDS ORDERED: NON FORMULARY DRUG (Dulaglutide [Trulicity] 1.5 MG/0.5 ML Pen.Injctr) SQ SCH (09:00)
== END 2021-11-19 17:29 | disposition home health service (06) ==
LOC: EC 12:31 → 6NMEDSUR 17:31
PROVIDERS: ADMIT Internal Medicine; ATTEND Internal Medicine
DX: R55 Syncope and collapse (principal); R41.82 Altered mental status, unspecified; E78.5 Hyperlipidemia, unspecified; K76.9 Liver disease, unspecified; I25.10 Atherosclerotic heart disease of native coronary artery without angina pectoris; Z53.29 Procedure and treatment not carried out because of patient's decision for other reasons; I12.9 Hypertensive chronic kidney disease with stage 1 through stage 4 chronic kidney disease, or unspecified chronic kidney disease; N18.9 Chronic kidney disease, unspecified; E11.22 Type 2 diabetes mellitus with diabetic chronic kidney disease; I95.9 Hypotension, unspecified; I08.3 Combined rheumatic disorders of mitral, aortic and tricuspid valves; G47.30 Sleep apnea, unspecified; M19.90 Unspecified osteoarthritis, unspecified site; E11.40 Type 2 diabetes mellitus with diabetic neuropathy, unspecified; F32.A Depression, unspecified; H54.7 Unspecified visual loss; R47.9 Unspecified speech disturbances; I65.22 Occlusion and stenosis of left carotid artery; R51.9 Headache, unspecified; R41.89 Other symptoms and signs involving cognitive functions and awareness; Z20.822 Contact with and (suspected) exposure to COVID-19; Z71.9 Counseling, unspecified; Z86.73 Personal history of transient ischemic attack (TIA), and cerebral infarction without residual deficits; Z87.442 Personal history of urinary calculi; Z95.818 Presence of other cardiac implants and grafts; Z79.02 Long term (current) use of antithrombotics/antiplatelets; Z79.899 Other long term (current) drug therapy; Z79.4 Long term (current) use of insulin; Z79.84 Long term (current) use of oral hypoglycemic drugs; Z83.3 Family history of diabetes mellitus; Z80.9 Family history of malignant neoplasm, unspecified
CPT/HCPCS: 96372 ×2; 96360; 96361 ×2; 99285; 36415; 95816; 93005; 93306; 85379; 80061; 80053 ×3; 83735; 84484; 85025 ×3; 85610; 85730; 81001; 83036; 87635; 71046; 93880; 70450; G0378 ×3; J1644 ×2

== ENCOUNTER 2022-02-02 04:38 | Inpatient (IN) | payer MEDICARE ==
[2022-02-02] MEDS ORDERED: hydrALAZINE HCL 20 MG/ML 1 ML VIAL IVP STA (04:48)
[2022-02-02] MEDS ORDERED: SODIUM CHLORIDE 0.9% 1,000 ML IV STA (04:48)
[2022-02-02] MEDS ORDERED: LABETALOL 5 MG/ML VIAL MDV IVP STA (04:48)
--- NOTE | 2022-02-02 04:49 | ED ---
Recheck HPI - General Stated Complaint: Hypertension Time Seen by Provider: 02/02/22 04:42 Source: RN notes reviewed, old records reviewed Mode of arrival: EMS Limitations: no limitations, language barrier - History of Present Illness Initial Comments: This is a 76-year-old male he presents today for evaluation multiple complaints some mild confusion and significantly noted abnormal blood pressure. Patient is a multiple recent changes in blood pressure medication but can't seem to get right. Patient does complain of mild headache. He otherwise has no travel history sick contacts no fever cough or congestion. Denies neurological changes. He does have history of TIA. MD Complaint: abnormal lab (Hypertension) -: unknown Returns Today for: persistent/worsening pain related to initial visit ([place]), other (Hypertension) Symptoms Since Prior Visit: worsening pain Context: planned re-check Associated Symptoms: malaise, nausea Treatments Prior to Arrival: other medications (BP meds) - Related Data Home Medications Medication Instructions Recorded Confirmed DULoxetine HCL [Cymbalta] 30 mg PO HS 03/13/16 02/02/22 Isosorbide Mononitrate ER [Imdur] 60 mg PO DAILY 03/13/16 02/02/22 Omeprazole 20 mg PO DAILY 07/08/20 02/02/22 Dulaglutide [Trulicity] 1.5 mg SQ SA 11/03/20 02/02/22 levETIRAcetam [Keppra] 500 mg PO BID 12/11/20 02/02/22 Atorvastatin [Lipitor] 20 mg PO HS 07/18/21 02/02/22 Insulin Aspart [NovoLOG Flexpen] 5 units SQ AC-BID@0800,1200 07/28/21 02/02/22 Insulin Aspart [NovoLOG Flexpen] 12 units SQ AC-SUPPER 07/28/21 02/02/22 Losartan [Cozaar] 25 mg PO HS 07/28/21 02/02/22 Dapagliflozin Propanediol [Farxiga] 10 mg PO DAILY 11/10/21 02/02/22 Vitamin E 400 unit PO DAILY 11/10/21 02/02/22 Insulin Aspart [NovoLOG Flexpen] See Protocol SQ TID-W/MEALS PRN 02/02/22 02/02/22 Loratadine 10 mg PO DAILY 02/02/22 02/02/22 Previous Rx's Medication Instructions Recorded Clopidogrel [Plavix] 75 mg PO DAILY #30 tab 07/11/20 Insulin Glargine,Hum.rec.anlog 30 units SQ DAILY #0 11/12/21 [Lantus Solostar Pen] cloNIDine HCL [Catapres] 0.2 mg PO BID #60 tab 11/12/21 Acetaminophen Tab [Tylenol] 650 mg PO Q6HR PRN tab 11/19/21 NIFEdipine XL [Procardia XL] 60 mg PO DAILY 30 Days #30 tab 02/03/22 Allergies Allergy/AdvReac Type Severity Reaction Status Date / Time No Known Allergies Allergy Verified 02/02/22 13:22 Review of Systems ROS Statement: Those systems with pertinent positive or pertinent negative responses have been documented in the HPI. ROS Other: All systems not noted in ROS Statement are negative. Past Medical History Past Medical History: CVA/TIA, Diabetes Mellitus, Hyperlipidemia, Hypertension, Liver Disease, Renal Disease, Sleep Apnea/CPAP/BIPAP Additional Past Medical History / Comment(s): ARTHRITIS, kidney stones, possible dementia, kidney failure, neuropathy alia legs, carpal tunnel. CVA-oct 20 balance issues,speech impairment,vision impairment, receives injections to eyes r/t bleeding History of Any Multi-Drug Resistant Organisms: None Reported Past Surgical History: Back Surgery Additional Past Surgical History / Comment(s): MASS REMOVED FROM BACK OF HEAD, eye surgery, Past Anesthesia/Blood Transfusion Reactions: No Reported Reaction Past Psychological History: Depression Smoking Status: Never smoker Past Alcohol Use History: None Reported Past Drug Use History: None Reported - Past Family History Father Family Medical History: Diabetes Mellitus Mother Family Medical History: Diabetes Mellitus Brother(s) Family Medical History: Cancer Sister(s) Family Medical History: Cancer General Exam General appearance: alert, in no apparent distress, anxious Head exam: Present: atraumatic, normocephalic, normal inspection Eye exam: Present: normal appearance, PERRL, EOMI. Absent: scleral icterus, conjunctival injection, periorbital swelling ENT exam: Present: normal exam, mucous membranes moist Neck exam: Present: normal inspection. Absent: tenderness, meningismus, lymphadenopathy Respiratory exam: Present: normal lung sounds bilaterally. Absent: respiratory distress, wheezes, rales, rhonchi, stridor Cardiovascular Exam: Present: regular rate, normal rhythm, normal heart sounds. Absent: systolic murmur, diastolic murmur, rubs, gallop, clicks GI/Abdominal exam: Present: soft, normal bowel sounds. Absent: distended, tenderness, guarding, rebound, rigid Extremities exam: Present: normal inspection, full ROM, normal capillary refill. Absent: tenderness, pedal edema, joint swelling, calf tenderness Back exam: Present: normal inspection Neurological exam: Present: alert, oriented X3, CN II-XII intact Psychiatric exam: Present: normal affect, normal mood Skin exam: Present: warm, dry, intact, normal color. Absent: rash Course Vital Signs 02/02/22 02/02/22 02/02/22 04:44 06:24 06:56 Temperature 98.4 F Pulse Rate 79 95 75 Respiratory 18 18 13 Rate Blood Pressure 243/112 197/107 158/80 O2 Sat by Pulse 97 97 97 Oximetry - Reevaluation(s) Reevaluation #1: 02/02/22 06:11 Medical record is reviewed Reevaluation #2: 02/02/22 06:11 Blood pressure is improving but he still has persistent headache Reevaluation #3: 02/02/22 06:11 Neurological deficits have been noted Reevaluation #4: 02/02/22 06:11 Patient family informed of results and questions answered - Consultations Consultation #1: Spoke with sound who agrees to admit this patient Medical Decision Making - Medical Decision Making 76 male to the emergency department with hypertensive urgency headache mild acute kidney injury. Patient will be admitted for blood pressure management - Lab Data Result diagrams: 02/03/22 06:01 02/03/22 06:01 Lab Results 02/02/22 02/02/22 02/02/22 Range/Units 04:57 04:57 04:57 WBC 6.7 (3.8-10.6) k/uL RBC 4.93 (4.30-5.90) m/uL Hgb 14.7 (13.0-17.5) gm/dL Hct 45.4 (39.0-53.0) % MCV 91.9 (80.0-100.0) fL MCH 29.9 (25.0-35.0) pg MCHC 32.5 (31.0-37.0) g/dL RDW 14.6 (11.5-15.5) % Plt Count 256 (150-450) k/uL MPV 7.4 Neutrophils % 67 % Lymphocytes % 23 % Monocytes % 7 % Eosinophils % 1 % Basophils % 1 % Neutrophils # 4.5 (1.3-7.7) k/uL Lymphocytes # 1.5 (1.0-4.8) k/uL Monocytes # 0.4 (0-1.0) k/uL Eosinophils # 0.1 (0-0.7) k/uL Basophils # 0.1 (0-0.2) k/uL PT 9.7 (9.0-12.0) sec INR 0.9 (<1.2) APTT 24.2 (22.0-30.0) sec Sodium 136 L (137-145) mmol/L Potassium 4.1 (3.5-5.1) mmol/L Chloride 105 (98-107) mmol/L Carbon Dioxide 28 (22-30) mmol/L Anion Gap 3 mmol/L BUN 24 H (9-20) mg/dL Creatinine 1.61 H (0.66-1.25) mg/dL Est GFR (CKD-EPI)AfAm 48 (>60 ml/min/1.73 sqM) Est GFR (CKD-EPI)NonAf 41 (>60 ml/min/1.73 sqM) Glucose 164 H (74-99) mg/dL Estimated Ave Glu mg/dL Hemoglobin A1c (0.0-6.0) % Calcium 8.6 (8.4-10.2) mg/dL Phosphorus 3.5 (2.5-4.5) mg/dL Magnesium 2.1 (1.6-2.3) mg/dL Total Bilirubin 0.3 (0.2-1.3) mg/dL AST 38 (17-59) U/L ALT 26 (4-49) U/L Alkaline Phosphatase 198 H (38-126) U/L Troponin I (0.000-0.034) ng/mL NT-Pro-B Natriuret Pep pg/mL Total Protein 6.2 L (6.3-8.2) g/dL Albumin 3.3 L (3.5-5.0) g/dL Vitamin B12 (200.0-944.0) pg/mL TSH (0.350-5.500) uIU/mL 0502/02/22 02/02/22 Range/Units 04:57 04:57 04:57 WBC (3.8-10.6) k/uL RBC (4.30-5.90) m/uL Hgb (13.0-17.5) gm/dL Hct (39.0-53.0) % MCV (80.0-100.0) fL MCH (25.0-35.0) pg MCHC (31.0-37.0) g/dL RDW (11.5-15.5) % Plt Count (150-450) k/uL MPV Neutrophils % % Lymphocytes % % Monocytes % % Eosinophils % % Basophils % % Neutrophils # (1.3-7.7) k/uL Lymphocytes # (1.0-4.8) k/uL Monocytes # (0-1.0) k/uL Eosinophils # (0-0.7) k/uL Basophils # (0-0.2) k/uL PT (9.0-12.0) sec INR (<1.2) APTT (22.0-30.0) sec Sodium (137-145) mmol/L Potassium (3.5-5.1) mmol/L Chloride (98-107) mmol/L Carbon Dioxide (22-30) mmol/L Anion Gap mmol/L BUN (9-20) mg/dL Creatinine (0.66-1.25) mg/dL Est GFR (CKD-EPI)AfAm (>60 ml/min/1.73 sqM) Est GFR (CKD-EPI)NonAf (>60 ml/min/1.73 sqM) Glucose (74-99) mg/dL Estimated Ave Glu mg/dL 184 Hemoglobin A1c 8.0 H (0.0-6.0) % Calcium (8.4-10.2) mg/dL Phosphorus (2.5-4.5) mg/dL Magnesium (1.6-2.3) mg/dL Total Bilirubin (0.2-1.3) mg/dL AST (17-59) U/L ALT (4-49) U/L Alkaline Phosphatase (38-126) U/L Troponin I <0.012 (0.000-0.034) ng/mL NT-Pro-B Natriuret Pep 301 pg/mL Total Protein (6.3-8.2) g/dL Albumin (3.5-5.0) g/dL Vitamin B12 (200.0-944.0) pg/mL TSH (0.350-5.500) uIU/mL 02/02/22 Range/Units 04:57 WBC (3.8-10.6) k/uL RBC (4.30-5.90) m/uL Hgb (13.0-17.5) gm/dL Hct (39.0-53.0) % MCV (80.0-100.0) fL MCH (25.0-35.0) pg MCHC (31.0-37.0) g/dL RDW (11.5-15.5) % Plt Count (150-450) k/uL MPV Neutrophils % % Lymphocytes % % Monocytes % % Eosinophils % % Basophils % % Neutrophils # (1.3-7.7) k/uL Lymphocytes # (1.0-4.8) k/uL Monocytes # (0-1.0) k/uL Eosinophils # (0-0.7) k/uL Basophils # (0-0.2) k/uL PT (9.0-12.0) sec INR (<1.2) APTT (22.0-30.0) sec Sodium (137-145) mmol/L Potassium (3.5-5.1) mmol/L Chloride (98-107) mmol/L Carbon Dioxide (22-30) mmol/L Anion Gap mmol/L BUN (9-20) mg/dL Creatinine (0.66-1.25) mg/dL Est GFR (CKD-EPI)AfAm (>60 ml/min/1.73 sqM) Est GFR (CKD-EPI)NonAf (>60 ml/min/1.73 sqM) Glucose (74-99) mg/dL Estimated Ave Glu mg/dL Hemoglobin A1c (0.0-6.0) % Calcium (8.4-10.2) mg/dL Phosphorus (2.5-4.5) mg/dL Magnesium (1.6-2.3) mg/dL Total Bilirubin (0.2-1.3) mg/dL AST (17-59) U/L ALT (4-49) U/L Alkaline Phosphatase (38-126) U/L Troponin I (0.000-0.034) ng/mL NT-Pro-B Natriuret Pep pg/mL Total Protein (6.3-8.2) g/dL Albumin (3.5-5.0) g/dL Vitamin B12 422.0 (200.0-944.0) pg/mL TSH 5.000 (0.350-5.500) uIU/mL - EKG Data -: EKG Interpreted by Me (EKG is sinus rhythm 81 MA 158 QRS 101 QTc 411) - Radiology Data Radiology results: report reviewed (CT brain negative for acute disease), image reviewed Disposition Clinical Impression: Altered mental status, Hypertension, Hypertensive urgency, Headache Disposition: ADMITTED IP TO [facility] Condition: Stable Is patient prescribed a controlled substance at d/c from ED?: No
[2022-02-02 05:14] LABS: Basophils # (A) 0.1 k/uL (0-0.2); Basophils % (A) 1 %; Eosinophils # (A) 0.1 k/uL (0-0.7); Eosinophils % (A) 1 %; HCT 45.4 % (39.0-53.0); HGB 14.7 gm/dL (13.0-17.5); Lymphocytes # (A) 1.5 k/uL (1.0-4.8); Lymphocytes % (A) 23 %; MCH 29.9 pg (25.0-35.0); MCHC 32.5 g/dL (31.0-37.0); MCV 91.9 fL (80.0-100.0); Mean Platelet Volume 7.4; Monocytes # (A) 0.4 k/uL (0-1.0); Monocytes % (A) 7 %; Neutrophils # (A) 4.5 k/uL (1.3-7.7); Neutrophils % (A) 67 %; Platelet Count 256 k/uL (150-450); RBC 4.93 m/uL (4.30-5.90); RDW 14.6 % (11.5-15.5); WBC 6.7 k/uL (3.8-10.6)
[2022-02-02 05:24] LABS: Albumin 3.3 g/dL (3.5-5.0); Calcium 8.6 mg/dL (8.4-10.2); Magnesium 2.1 mg/dL (1.6-2.3); Phosphorus 3.5 mg/dL (2.5-4.5); Potassium 4.1 mmol/L (3.5-5.1); Total Bilirubin 0.3 mg/dL (0.2-1.3); Total Protein 6.2 g/dL (6.3-8.2)
[2022-02-02 05:27] LABS: INR 0.9 (<1.2); Partial Thromboplastin Time 24.2 sec (22.0-30.0); Prothrombin Time 9.7 sec (9.0-12.0)
[2022-02-02] MEDS ORDERED: MORPHINE SULFATE 4 MG/ML SYRINGE IVP STA (06:06)
[2022-02-02] MEDS ORDERED: MORPHINE SULFATE 4 MG/ML SYRINGE IV PRN (06:06)
[2022-02-02] MEDS ORDERED: LORazepam 2 MG/ML INJ IV PRN (06:06)
[2022-02-02] MEDS ORDERED: LORazepam 2 MG/ML INJ IV STA (06:06)
[2022-02-02] MEDS ORDERED: ONDANSETRON 4 MG/2 ML VIAL IVP PRN (06:08)
[2022-02-02] MEDS ORDERED: NALOXONE 0.4 MG/ML 1 ML VIAL IV PRN (06:08)
[2022-02-02] MEDS ORDERED: SODIUM CHLORIDE 0.9% 1,000 ML IV SCH (06:15)
--- NOTE | 2022-02-02 06:35 | CT ---
EXAMINATION TYPE: CT brain wo con DATE OF EXAM: 02/02/2022 COMPARISON: 11/17/2021 HISTORY: headache CT DLP: 1157.4 mGycm Automated exposure control for dose reduction was used. There is some cerebral cortical atrophy. There is large 5 cm wedge-shaped area of hypodensity left po sterior temporal lobe and left occipital lobe consistent with an old infarct. There is no mass effect . No midline shift. There is 3 cm area of hypodensity right posterior occipital lobe consistent with old infarct. No evidence of intracranial hemorrhage. The calvarium is intact. Skull base is intact. 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 No change compared to the old exam. No acute intracranial abnormality.
[2022-02-02] MEDS ORDERED: cloNIDine 0.2 MG/24HR PATCH TRANSDERM SCH (07:00)
[2022-02-02 08:19] LABS: Glucose,Whole Blood 161 mg/dL (75-99)
[2022-02-02] MEDS ORDERED: ACETAMINOPHEN TAB 325 MG TAB PO PRN (11:30)
[2022-02-02] MEDS ORDERED: LOSARTAN 50 MG TAB PO SCH ×2 (11:45→21:00)
--- NOTE | 2022-02-02 11:56 | P.HPIM ---
History of Present Illness H&P Date: 02/02/22 Chief Complaint: Uncontrolled hypertension 76-year-old male with past medical history significant for stroke with residual right-sided weakness and right eye visual changes presented to the emergency room with his daughter with chief complaint of dizziness associated with uncontrolled hypertension. Blood pressure on presentation was 243/112. Most of the history was obtained from his daughter at the bedside. She stated that the patient was complaining of dizziness at 3 AM in the morning and his blood pressure was elevated to 200. The patient came to the emergency room and had a computed tomography scan of the brain without contrast which showed old bilateral occipital lobe and left posterior temporal lobe infarct. No changes compared to old exam. The patient denies any chest pain or shortness of breath. Daughter stated that he has been compliant with his home medication. The patient denied any nausea or vomiting or abdominal pain patient denied any fever or chills. Patient denies recent travel or sick contact. Review of Systems All 14 review of systems evaluated and all negative except for above. Past Medical History Past Medical History: CVA/TIA, Diabetes Mellitus, Hyperlipidemia, Hypertension, Liver Disease, Renal Disease, Sleep Apnea/CPAP/BIPAP Additional Past Medical History / Comment(s): ARTHRITIS, kidney stones, possible dementia, kidney failure, neuropathy alia legs and arms , carpal tunnel. CVA-jun 2020 balance issues,speech impairment,vision impairment, cataracts. History of Any Multi-Drug Resistant Organisms: None Reported Past Surgical History: Back Surgery, Cholecystectomy Additional Past Surgical History / Comment(s): MASS REMOVED FROM BACK OF HEAD, eye surgery, Past Anesthesia/Blood Transfusion Reactions: No Reported Reaction Past Psychological History: No Psychological Hx Reported Smoking Status: Never smoker Past Alcohol Use History: None Reported Past Drug Use History: None Reported - Past Family History Father Family Medical History: Diabetes Mellitus Mother Family Medical History: Diabetes Mellitus Brother(s) Family Medical History: Cancer Sister(s) Family Medical History: Cancer Medications and Allergies Home Medications Medication Instructions Recorded Confirmed Type DULoxetine HCL [Cymbalta] 30 mg PO HS 03/13/16 02/02/22 History Isosorbide Mononitrate ER [Imdur] 60 mg PO DAILY 03/13/16 02/02/22 History Omeprazole 20 mg PO DAILY 07/08/20 02/02/22 History Clopidogrel [Plavix] 75 mg PO DAILY #30 tab 07/11/20 02/02/22 Rx Dulaglutide [Trulicity] 1.5 mg SQ SA 11/03/20 02/02/22 History levETIRAcetam [Keppra] 500 mg PO BID 12/11/20 02/02/22 History Atorvastatin [Lipitor] 20 mg PO HS 07/18/21 02/02/22 History Insulin Aspart [NovoLOG Flexpen] 5 units SQ AC-BID@0800,1200 07/28/21 02/02/22 H istory Insulin Aspart [NovoLOG Flexpen] 12 units SQ AC-SUPPER 07/28/21 02/02/22 History Losartan [Cozaar] 25 mg PO HS 07/28/21 02/02/22 History Dapagliflozin Propanediol [Farxiga] 10 mg PO DAILY 11/10/21 02/02/22 History Vitamin E 400 unit PO DAILY 11/10/21 02/02/22 History Insulin Glargine,Hum.rec.anlog 30 units SQ DAILY #0 11/12/21 02/02/22 Rx [Lantus Solostar Pen] cloNIDine HCL [Catapres] 0.2 mg PO BID #60 tab 11/12/21 02/02/22 Rx Acetaminophen Tab [Tylenol] 650 mg PO Q6HR PRN tab 11/19/21 02/02/22 Rx Loratadine 10 mg PO DAILY 02/02/22 02/02/22 History Allergies Allergy/AdvReac Type Severity Reaction Status Date / Time No Known Allergies Allergy Verified 11/17/21 14:35 Physical Exam Vitals: Vital Signs Temp Pulse Pulse Resp BP BP Pulse Ox 02/02/22 08:00 97.6 F 75 18 190/81 97 02/02/22 06:56 75 13 158/80 97 02/02/22 06:24 95 18 197/107 97 02/02/22 04:44 98.4 F 79 18 243/112 97 Intake and Output 02/01/22 02/02/22 02/02/22 22:59 06:59 14:59 Other: Voiding Method Toilet Diaper Weight 106.594 kg 106.594 kg General: non toxic, no distress, appears at stated age Derm: warm, dry Head: atraumatic, normocephalic, symmetric Eyes: EOMI, no lid lag, anicteric sclera Mouth: no lip lesion, mucus membranes moist Cardiovascular: S1S2 reg, no murmur, positive posterior tibial pulse bilateral, Lungs: CTA bilateral, no rhonchi, no rales , no accessory muscle use Abdominal: soft, nontender to palpation, no guarding, no appreciable organomegaly Ext: no gross muscle atrophy, no edema, no contractures Neuro: CN II-XI grossly intact, chronic right-sided weakness Psych: Alert, oriented times to, appropriate affect Results CBC & Chem 7: 02/02/22 04:57 02/02/22 04:57 Labs: Abnormal Lab Results - Last 24 Hours (Table) 02/02/22 02/02/22 Range/Units 04:57 08:18 Sodium 136 L (137-145) mmol/L BUN 24 H (9-20) mg/dL Creatinine 1.61 H (0.66-1.25) mg/dL Glucose 164 H (74-99) mg/dL POC Glucose (mg/dL) 161 H (75-99) mg/dL Alkaline Phosphatase 198 H (38-126) U/L Total Protein 6.2 L (6.3-8.2) g/dL Albumin 3.3 L (3.5-5.0) g/dL Thrombosis Risk Factor Assmnt - Choose All That Apply Any of the Below Risk Factors Present?: Yes Each Factor Represents 1 point: Obesity (BMI >25) Other Risk Factors: Yes Each Risk Factor Represents 3 Points: Age 75 years or older Other congenital or acquired thrombophilia - If yes, enter type in comment: No Thrombosis Risk Factor Assessment Total Risk Factor Score: 4 Thrombosis Risk Factor Assessment Level: Moderate Risk Assessment and Plan Assessment: Assessment and plan: Accelerated hypertension -Add Procardia XL 60 mg daily -Resume Catapres 0.1 mg twice a day. 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 Depression Cymbalta Hyperlipidemia On Lipitor Chronic kidney disease stage III -Creatinine at baseline -Secondary to hypertensive nephrosclerosis and diabetic nephropathy DVT prophylaxis with Lovenox
[2022-02-02] MEDS ORDERED: INSULIN DETEMIR (LEVEMIR) 100 UNIT/ML SYR SQ SCH (12:30)
--- NOTE | 2022-02-02 12:46 | P.CNNES ---
History of Present Illness Consult date: 02/02/22 Requesting physician: Damon Mcarthur Reason for Consult: Dizziness History of Present Illness: Patient is a 76-year-old male, with history of CVA, seizure disorder, diabetes, well known to me from previous admissions to the hospital, came to the hospital by ambulance this morning at 4:38 AM for dizziness on waking up. As per EMS flow sheet, when they arrived, found patient is alert and oriented 3 sitting in the chair. Patient is fluent in Irish but can answer some questions in Mexican. Per family he got up to use the bathroom and felt dizzy and lightheaded along with having headache. Patient has history of hypertension and tried to take his blood pressure prior to arrival and stated it would not read. A manual blood pressure obtained by EMS was 230/80. Patient denied having lightheadedness or dizziness. Patient has history of CVA with right-sided weakness. Patient was acting appropriately prior to their arrival. No recent medication change. EKG showed atrial fibrillation. No chest pain or shortness of breath. Patient was given 500 mL of normal saline. Patient does have chronic blurred vision left eye which was not any worse lately. He continued to have headache. Patient's vitals at the scene was blood pressure 249/120, pulse rate 89 and respirations 20 saturation 97% the blood pressures stayed in 232-255 systolic range. Patient's and daughters were present at the time of this interview. They said that when he woke up at 2:30 AM to go to the bathroom, felt not good, lightheaded, dizzy. He was also having headache from top of the head to the neck. His blood sugars were fine. There were no other focal symptoms like slurred speech, facial droop, focal numbness tingling or weakness. Patient's daughter states that he has been getting headaches off and on, but nothing like it. No fever or diarrhea, he has just no energy. The dizziness was bad for half an hour, then slowly improved after the blood pressure came under control. Vital signs arrival her blood pressure 243/112, pulse is 70 and temperature 98.4. Blood tests shows normal CBC PT/PTT, sodium 136 potassium 4.1, BUN 24 and creatinine 1.61. Hepatic panel is normal. Troponin negative. Hemoglobin A1c 7.3 on 11/19/2021. B12 328 and folate 20.3 on 07/09/2020. Patient had a computed tomography scan of head, which revealed old bilateral occipital and left posterior temporal infarct. No acute processes. On my review, there is bilateral occipital, right parietal and left parietal temporal old ischemic infarctions. No change. Review of Systems Fatigue, headache. He has neuropathy from diabetes. All other 14 point of resistance and reviewed and noncontributory to the present illness Past Medical History Past Medical History: CVA/TIA, Diabetes Mellitus, Hyperlipidemia, Hypertension, Liver Disease, Renal Disease, Sleep Apnea/CPAP/BIPAP Additional Past Medical History / Comment(s): ARTHRITIS, kidney stones, possible dementia, kidney failure, neuropathy alia legs and arms , carpal tunnel. CVA-jun 2020 balance issues,speech impairment,vision impairment, cataracts. History of Any Multi-Drug Resistant Organisms: None Reported Past Surgical History: Back Surgery, Cholecystectomy Additional Past Surgical History / Comment(s): MASS REMOVED FROM BACK OF HEAD, eye surgery, Past Anesthesia/Blood Transfusion Reactions: No Reported Reaction Past Psychological History: No Psychological Hx Reported Smoking Status: Never smoker Past Alcohol Use History: None Reported Past Drug Use History: None Reported - Past Family History Father Family Medical History: Diabetes Mellitus Mother Family Medical History: Diabetes Mellitus Brother(s) Family Medical History: Cancer Sister(s) Family Medical History: Cancer Medications and Allergies Home Medications Medication Instructions Recorded Confirmed Type DULoxetine HCL [Cymbalta] 30 mg PO HS 03/13/16 02/02/22 History Isosorbide Mononitrate ER [Imdur] 60 mg PO DAILY 03/13/16 02/02/22 History Omeprazole 20 mg PO DAILY 07/08/20 02/02/22 History Clopidogrel [Plavix] 75 mg PO DAILY #30 tab 07/11/20 02/02/22 Rx Dulaglutide [Trulicity] 1.5 mg SQ SA 11/03/20 02/02/22 History levETIRAcetam [Keppra] 500 mg PO BID 12/11/20 02/02/22 History Atorvastatin [Lipitor] 20 mg PO HS 07/18/21 02/02/22 History Insulin Aspart [NovoLOG Flexpen] 5 units SQ AC-BID@0800,1200 07/28/21 02/02/22 History Insulin Aspart [NovoLOG Flexpen] 12 units SQ AC-SUPPER 07/28/21 02/02/22 History Losartan [Cozaar] 25 mg PO HS 07/28/21 02/02/22 History Dapagliflozin Propanediol [Farxiga] 10 mg PO DAILY 11/10/21 02/02/22 History Vitamin E 400 unit PO DAILY 11/10/21 02/02/22 History Insulin Glargine,Hum.rec.anlog 30 units SQ DAILY #0 11/12/21 02/02/22 Rx [Lantus Solostar Pen] cloNIDine HCL [Catapres] 0.2 mg PO BID #60 tab 11/12/21 02/02/22 Rx Acetaminophen Tab [Tylenol] 650 mg PO Q6HR PRN tab 11/19/21 02/02/22 Rx Loratadine 10 mg PO DAILY 02/02/22 02/02/22 History Allergies Allergy/AdvReac Type Severity Reaction Status Date / Time No Known Allergies Allergy Verified 11/17/21 14:35 Physical Examination - Vital Signs Vital Signs: Vital Signs Temp Pulse Resp BP Pulse Ox 02/02/22 06:56 75 13 158/80 97 02/02/22 06:24 95 18 197/107 97 02/02/22 04:44 98.4 F 79 18 243/112 97 Intake and Output 02/01/22 02/02/22 02/02/22 22:59 06:59 14:59 Other: Weight 106.594 kg 106.594 kg Patient is an elderly male, in no acute distress. Patient is alert awake. Speech and language functions are normal. Detail cognitive function testing deferred. Attention, concentration and fund of knowledge is slightly limited. He is slow mentation, prolonged latency to answer questions. This is his baseline. On cranial nerve examination, pupils are round equal and reacting to light, visual calzada revealed chronic right homonymous hemianopia on confrontation, extraocular muscles are intact with no nystagmus. Face is symmetric, tongue protrudes to the midline. Palatal elevation and sensation normal, hearing is slightly decreased and shoulder shrug normal, facial sensation normal. Shoulder shrug normal. On muscle strength testing, there is no pronator drift and the strength is normal in arms and legs distally and proximally, except toe extension, which are quite weak bilaterally. Deep tendon reflexes are absent all over. Sensory to touch is equal with no neglect. Cerebellar function showed no ataxia for [id number] testing. Tone of muscles is normal and bulk of muscles somewhat atrophy in the right first dorsal interosseous. Gait not checked. On general examination, there is no carotid bruit or murmur, S1-S2 audible. Abdomen is soft nontender. No organomegaly, bowel sounds present Chest is clear to auscultation. No cyanosis or clubbing Mild peripheral edema. Results - Laboratory Findings CBC and BMP: 02/02/22 04:57 02/02/22 04:57 Abnormal Lab Findings: Abnormal Labs 02/02/22 02/02/22 04:57 08:18 Sodium 136 L BUN 24 H Creatinine 1.61 H Glucose 164 H POC Glucose (mg/dL) 161 H Alkaline Phosphatase 198 H Total Protein 6.2 L Albumin 3.3 L Assessment and Plan Assessment: * Hypertensive urgency, with uncontrolled hypertension * Dizziness, headache likely due to above. Symptoms now have resolved. Blood pressure is better controlled. * History of probable seizure disorder, on Keppra * History of multiple strokes in the past. * History of left ICA stenosis. Patient has been followed up with vascular neurology Dr. Foster * Cognitive impairment * Diabetes * Chronic renal insufficiency * Hypertension * Hyperlipidemia Plan: * Patient's neurological symptoms have resolved. His examination is nonfocal. No clinical evidence of stroke or TIA. Symptoms were likely due to uncontrolled blood pressure. * No other neurological workup indicated. * Treatment of blood pressure as per IM/cardiology. * Continue Plavix and Lipitor. * Patient's last hemoglobin A1c 7.3 on 11/19/2021. * Lipid panel with cholesterol 125, LDL 34 HDL 59 triglycerides 154. * Neurologically clear for discharge. Thank you for the consult.
[2022-02-02 12:53] LABS: Glucose,Whole Blood 135 mg/dL (75-99)
[2022-02-02] MEDS: INSULIN DETEMIR (LEVEMIR) 100 UNIT/ML SYR SQ SCH (13:17)
[2022-02-02] MEDS: CLOPIDOGREL 75 MG TAB PO SCH (13:18)
[2022-02-02] MEDS: ISOSORBIDE MONONITRATE ER 60 MG TAB.ER.24H PO SCH (13:18)
[2022-02-02] MEDS: LOSARTAN 25 MG TAB PO SCH (13:18)
[2022-02-02] MEDS: INSULIN ASPART (NovoLOG) 100 UNIT/ML VIAL SQ SCH (13:18)
[2022-02-02 16:55] LABS: Glucose,Whole Blood 158 mg/dL (75-99)
[2022-02-02] MEDS ORDERED: INSULIN ASPART (NovoLOG) 100 UNIT/ML VIAL SQ SCH (17:30)
[2022-02-02] MEDS: levETIRAcetam 500 MG TAB PO SCH (20:48)
[2022-02-02] MEDS: cloNIDine HCL 0.2 MG TAB PO SCH (20:48)
[2022-02-02] MEDS ORDERED: DULoxetine HCL 30 MG CAPSULE.DR PO SCH (21:00)
[2022-02-02] MEDS ORDERED: ATORVASTATIN 20 MG TAB PO SCH (21:00)
[2022-02-02 21:06] LABS: Glucose,Whole Blood 171 mg/dL (75-99)
[2022-02-03 07:11] LABS: Glucose,Whole Blood 104 mg/dL (75-99)
[2022-02-03 07:48] VITALS: BP 137/62; PULSE 81; RESP 16; TEMP 98.6
[2022-02-03] MEDS: INSULIN DETEMIR (LEVEMIR) 100 UNIT/ML SYR SQ SCH (08:54)
[2022-02-03] MEDS: INSULIN ASPART (NovoLOG) 100 UNIT/ML VIAL SQ SCH (08:54)
[2022-02-03] MEDS: cloNIDine HCL 0.2 MG TAB PO SCH (08:55)
[2022-02-03] MEDS: LOSARTAN 25 MG TAB PO SCH (08:55)
[2022-02-03] MEDS: levETIRAcetam 500 MG TAB PO SCH (08:55)
[2022-02-03] MEDS: CLOPIDOGREL 75 MG TAB PO SCH (08:55)
[2022-02-03] MEDS: ISOSORBIDE MONONITRATE ER 60 MG TAB.ER.24H PO SCH (08:55)
[2022-02-03] MEDS ORDERED: LORATADINE 10 MG TAB PO SCH (09:00)
[2022-02-03] MEDS ORDERED: ENOXAPARIN 40 MG/0.4 ML SYRINGE SQ SCH (09:00)
[2022-02-03] MEDS ORDERED: PANTOPRAZOLE 40 MG TABLET PO SCH (09:00)
--- NOTE | 2022-02-03 09:16 | P.CRDCN ---
History of Present Illness Consult date: 02/03/22 History of present illness: HISTORY OF PRESENT ILLNESS: This is a 76-year-old male with a past medical history significant for hypertension, hyperlipidemia, diabetes, CVA, and coronary artery disease. Patient follows in the office with Dr. Gallagher. We have been asked to see the patient in consultation for hypertension. Patient examined at the bedside. Patient is somewhat of a poor historian. His is at the bedside. Apparently the patient was complaining of a headache at home. She checked his blood pressure at home and was found to be elevated so she brought the patient to the hospital. His blood pressure on admission was 243/112. He was started on Procardia. His blood pressure this morning has improved with a reading of 1 37/62. The patient denies any chest pain or pressure. He denies shortness of breath. * EKG reveals sinus mechanism with no signs of acute ischemia * Chest xray old bilateral occipital lobe and left posterior temporal lobe infarcts. No change compared old exam. No acute intracranial abnormality * Laboratory data: WBC 6.7. Hemoglobin 14.7. Platelet count 256. Sodium 136. Potassium 4.1. BUN 24. Creatinine 1.61. Troponin negative 1. ProBNP 301. * Current home cardiac medications include Lipitor 20mg at night, Plavix 75 mg daily, Imdur 60 g daily, losartan 25 mg at night, Catapres 0.2 mg twice a day * Most recent echocardiogram obtained in October 2021 revealed ejection fraction 55-60%, mild AR, mild MR, and mild TR * Patient had a Lexiscan stress test in 2018 which was negative for ischemia * Cardiac catheterization history: 2008 revealing proximal LAD 40%, mid LAD 50%, diagonal 50%, left circumflex 50%. Medical management was recommended. REVIEW OF SYSTEMS: At the time of my exam: CONSTITUTIONAL: Denies fever or chills. HEENT: Denies blurred vision, vision changes, or eye pain. Denies hemoptysis CARDIOVASCULAR: Denies chest pain. Denies orthopnea. Denies PND. Denies palpitations RESPIRATORY: Denies shortness of breath. GASTROINTESTINAL: Denies abdominal pain. Denies nausea or vomiting. HEMATOLOGIC: Denies bleeding disorders. GENITOURINARY: Denies any blood in urine. SKIN: Denies pruitis. Denies rash. PHYSICAL EXAM: VITAL SIGNS: Reviewed. GENERAL: Well-developed in no acute distress. HEENT: Head is normocephalic. Pupils are equal, round. Sclerae anicteric. Mucous membranes of the mouth are moist. Neck supple. No JVD or thyromegaly LUNGS: Respirations even and unlabored. Lungs essentially clear to auscultation bilaterally. HEART: Regular rate and rhythm. S1 and S2 heard. ABDOMEN: Soft. Nondistended. Nontender. EXTREMITIES: Normal range of motion. No clubbing or cyanosis. Peripheral pulses intact. No lower extremity edema NEUROLOGIC: Awake and alert. Oriented x 3. ASSESSMENT: Headache Hypertension urgency History of hypertension Hyperlipidemia Diabetes CVA Coronary artery disease PLAN: No need to repeat echocardiogram as this was performed in October 2021 Patient has been started on Procardia per internal medicine Continue additional home cardiac medications Patient's blood pressure has improved Patient is stable from a cardiac perspective. Nurse practitioner note has been reviewed by physician. Signing provider agrees with the documented findings, assessment, and plan of care. Past Medical History Past Medical History: CVA/TIA, Diabetes Mellitus, Hyperlipidemia, Hypertension, Liver Disease, Renal Disease, Sleep Apnea/CPAP/BIPAP Additional Past Medical History / Comment(s): ARTHRITIS, kidney stones, possible dementia, kidney failure, neuropathy alia legs and arms , carpal tunnel. CVA-jun 2020 balance issues,speech impairment,vision impairment, cataracts. History of Any Multi-Drug Resistant Organisms: None Reported Past Surgical History: Back Surgery, Cholecystectomy Additional Past Surgical History / Comment(s): MASS REMOVED FROM BACK OF HEAD, eye surgery, Past Anesthesia/Blood Transfusion Reactions: No Reported Reaction Past Psychological History: No Psychological Hx Reported Smoking Status: Never smoker Past Alcohol Use History: None Reported Past Drug Use History: None Reported - Past Family History Father Family Medical History: Diabetes Mellitus Mother Family Medical History: Diabetes Mellitus Brother(s) Family Medical History: Cancer Sister(s) Family Medical History: Cancer Medications and Allergies Home Medications Medication Instructions Recorded Confirmed Type DULoxetine HCL [Cymbalta] 30 mg PO HS 03/13/16 02/02/22 History Isosorbide Mononitrate ER [Imdur] 60 mg PO DAILY 03/13/16 02/02/22 History Omeprazole 20 mg PO DAILY 07/08/20 02/02/22 History Clopidogrel [Plavix] 75 mg PO DAILY #30 tab 07/11/20 02/02/22 Rx Dulaglutide [Trulicity] 1.5 mg SQ SA 11/03/20 02/02/22 History levETIRAcetam [Keppra] 500 mg PO BID 12/11/20 02/02/22 History Atorvastatin [Lipitor] 20 mg PO HS 07/18/21 02/02/22 History Insulin Aspart [NovoLOG Flexpen] 5 units SQ AC-BID@0800,1200 07/28/21 02/02/22 History Insulin Aspart [NovoLOG Flexpen] 12 units SQ AC-SUPPER 07/28/21 02/02/22 History Losartan [Cozaar] 25 mg PO HS 07/28/21 02/02/22 History Dapagliflozin Propanediol [Farxiga] 10 mg PO DAILY 11/10/21 02/02/22 History Vitamin E 400 unit PO DAILY 11/10/21 02/02/22 History Insulin Glargine,Hum.rec.anlog 30 units SQ DAILY #0 11/12/21 02/02/22 Rx [Lantus Solostar Pen] cloNIDine HCL [Catapres] 0.2 mg PO BID #60 tab 11/12/21 02/02/22 Rx Acetaminophen Tab [Tylenol] 650 mg PO Q6HR PRN tab 11/19/21 02/02/22 Rx Insulin Aspart [NovoLOG Flexpen] See Protocol SQ TID-W/MEALS PRN 02/02/22 02/02/22 History Loratadine 10 mg PO DAILY 02/02/22 02/02/22 History Allergies Allergy/AdvReac Type Severity Reaction Status Date / Time No Known Allergies Allergy Verified 02/02/22 13:22 Physical Exam Vitals: Vital Signs Temp Pulse Resp BP Pulse Ox 02/03/22 07:00 98.6 F 81 16 137/62 95 02/03/22 02:50 98.1 F 87 17 161/71 97 02/03/22 02:40 76 18 02/02/22 20:48 76 18 02/02/22 20:19 98.4 F 76 18 198/98 96 02/02/22 16:01 96 02/02/22 15:00 98.0 F 76 18 176/76 97 02/02/22 14:00 76 18 Intake and Output 02/02/22 02/03/22 02/03/22 22:59 06:59 14:59 Intake Total 118 360 Balance 118 360 Intake: Oral 118 360 Other: Voiding Method Toilet Toilet Diaper Diaper # Voids 1 2 Results 02/02/22 04:57 02/02/22 04:57 Current Medications Generic Name Dose Route Start Last Admin Trade Name Frefrankie PRN Reason Stop Dose Admin Acetaminophen 650 mg 02/02/22 11:30 Acetaminophen Tab 325 Mg Tab PO Q6HR PRN Fever and/ or Pain Atorvastatin Calcium 20 mg 02/02/22 21:00 02/02/22 20:48 Atorvastatin 20 Mg Tab PO 20 mg HS BETSY Administration Clonidine 0.2 mg 02/02/22 21:00 02/03/22 08:55 Clonidine Hcl 0.2 Mg Tab PO 0.2 mg BID BETSY Administration Clopidogrel Bisulfate 75 mg 02/02/22 11:45 02/03/22 08:55 Clopidogrel 75 Mg Tab PO 75 mg DAILY BETSY Administration Duloxetine HCl 30 mg 02/02/22 21:00 02/02/22 20:48 Duloxetine Hcl 30 Mg Capsule.Dr PO 30 mg HS BETSY Administration Enoxaparin Sodium 40 mg 02/03/22 09:00 02/03/22 08:54 Enoxaparin 40 Mg/0.4 Ml Syringe SQ 40 mg DAILY BETSY Administration Insulin Aspart 5 unit 02/02/22 12:00 02/03/22 08:54 Insulin Aspart (Novolog) 100 Unit/Ml Vial SQ 5 unit AC-BID@0800,1200 BETSY Administration Insulin Aspart 12 unit 02/02/22 17:30 02/02/22 18:11 Insulin Aspart (Novolog) 100 Unit/Ml Vial SQ 12 unit AC-SUPPER BETSY Administration Insulin Detemir 30 unit 02/02/22 12:30 02/03/22 08:54 Insulin Detemir (Levemir) 100 Unit/Ml Syr SQ 30 unit DAILY@0700 BETSY Administration Isosorbide Mononitrate 60 mg 02/02/22 11:45 02/03/22 08:55 Isosorbide Mononitrate Er 60 Mg Tab.Er.24h PO 60 mg DAILY BETSY Administration Levetiracetam 500 mg 02/02/22 21:00 02/03/22 08:55 Levetiracetam 500 Mg Tab PO 500 mg BID BETSY Administration Loratadine 10 mg 02/03/22 09:00 02/03/22 09:00 Loratadine 10 Mg Tab PO 10 mg DAILY BETSY Administration Lorazepam 0.5 mg 02/02/22 06:06 Lorazepam 2 Mg/Ml Inj IV Q6HR PRN Anxiety Losartan Potassium 25 mg 02/02/22 12:00 02/03/22 08:55 Losartan 25 Mg Tab PO 25 mg DAILY BETSY Administration Morphine Sulfate 4 mg 02/02/22 06:06 Morphine Sulfate 4 Mg/Ml Syringe IV Q4HR PRN Severe Pain Naloxone HCl 0.2 mg 02/02/22 06:08 Naloxone 0.4 Mg/Ml 1 Ml Vial IV Q2M PRN Opioid Reversal Nifedipine 60 mg 02/02/22 12:30 02/03/22 08:55 Nifedipine Xl 60 Mg Tab.Er.24 PO 60 mg DAILY BETSY Administration Ondansetron HCl 4 mg 02/02/22 06:08 Ondansetron 4 Mg/2 Ml Vial IVP Q8HR PRN Nausea And Vomiting Pantoprazole Sodium 40 mg 02/03/22 09:00 02/03/22 08:54 Pantoprazole 40 Mg Tablet PO 40 mg DAILY BETSY Administration Intake and Output 02/02/22 02/03/22 02/03/22 22:59 06:59 14:59 Intake Total 118 360 Balance 118 360 Intake: Oral 118 360 Other: Voiding Method Toilet Toilet Diaper Diaper # Voids 1 2 02/02/22 04:57 02/02/22 04:57
[2022-02-03 09:24] LABS: African American GFR (CKD) 44.7 (60.0-200.0); Albumin 3.4 g/dL (3.8-4.9); Albumin/Globulin Ratio 1.42 (1.60-3.17); BUN/Creat Ratio 10.76 Ratio (12.00-20.00); Blood Urea Nitrogen 18.3 mg/dL (9.0-27.0); Calcium 9.1 mg/dL (8.7-10.3); Globulin 2.4 g/dL (1.6-3.3); Non-African American GFR(CKD) 38.6 (60.0-200.0); Potassium 4.1 mmol/L (3.5-5.5); Total Bilirubin 0.2 mg/dL (0.30-1.20); Total Protein 5.8 g/dL (6.2-8.2)
[2022-02-03 09:43] LABS: Basophils # (A) 0.04 X 10*3/uL (0.00-0.10); Basophils % (A) 0.5 %; Eosinophils # (A) 0.07 X 10*3/uL (0.04-0.35); HCT 45.1 % (39.6-50.0); HGB 14.4 g/dL (13.0-17.0); Immature Grans, Automated 0.3 %; Lymphocytes # (A) 2.33 X 10*3/uL (0.90-5.00); Lymphocytes % (A) 31.7 %; MCH 29.3 pg (27.0-32.0); MCHC 31.9 g/dL (32.0-37.0); MCV 91.9 fL (80.0-97.0); Monocytes # (A) 0.75 X 10*3/uL (0.20-1.00); Monocytes % (A) 10.2 %; NRBC Per 100 WBC 0 /100 WBCS (0.0-0.0); Neutrophils # (A) 4.14 X 10*3/uL (1.80-7.70); Neutrophils % (A) 56.3 %; Platelet Count 285 X 10*3/uL (140-440); RBC 4.91 X 10*6/uL (4.40-5.60); RDW 14.6 % (11.5-14.5); WBC 7.35 X 10*3/uL (4.50-10.00)
--- NOTE | 2022-02-03 10:52 | P.DS ---
Providers Date of admission: 02/02/22 06:09 Expected date of discharge: 02/03/22 Attending physician: David Graves MD Consults: 02/02/22 09:18 Consult Physician Routine Consulting Provider: Demetri Westbrook Consult Reason/Comments: hypertensive urgency Do you want consulting provider notified?: Yes 02/02/22 09:19 Consult Physician Routine Consulting Provider: Tabitha Bustillo Consult Reason/Comments: dizziness Do you want consulting provider notified?: Yes Primary care physician: [facility] Course: Discharge Diagnosis: Hypertensive urgency in patient with history of hypertension, patient was started on Procardia 60 mg daily and to continue daily medication regimen with isosorbide mononitrate, clonidine, and losartan. Hyperlipidemia, continue daily medication regimen with atorvastatin 20 mg nightly. Insulin-dependent diabetes mellitus, continue with daily Lantus, fixed dose insulin with meals, and sliding scale. CKD stage III, stable History of CVA with balance/vision/speech impairments, continue daily medication regimen with Plavix and atorvastatin. 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 Patient presented to the emergency department on 02/02/22 with a chief complaint of dizziness and hypertension. He was seen and fully evaluated in the emergency department. CT brain completed negative for acute intercranial process revealing old bilateral subtotal lobe and left posterior temporal lobe infarcts consistent with an old infarct unchanged. EKG showing sinus rhythm at 81 bpm with no noted T wave or ST abnormality showing no signs of acute ischemia. CBC unremarkable. BMP consistent with stage III chronic kidney disease with BUN of 24, creatinine 1.61, and GFR 41 which is patient's baseline for greater than 2 years. Patient was noted to have hypertensive urgency with blood pressure 198/98. Patient was admitted under our services of consultation to cardiology and neurology. He was started on Procardia in addition to daily blood pressure medication regimen. Cardiology evaluated stating no need to repeat echocardiogram as this was completed 11/18/2021 and reporting patient is stable from cardiac perspective for outpatient follow-up. Neurology also following stating no clinical evidence of stroke or TIA symptoms likely secondary to uncontrolled blood pressures with no further workup needed at this time. Neurology recommending continuation of Lipitor and Plavix. Patient had significant improvement in control of blood pressure from previous 198/98 down to 137/62. Patient reports dizziness completely resolved. Patient is medically stable at this time and being discharged home on Procardia 60 mg daily and to continue daily medication regimen with isosorbide mononitrate, clonidine, losartan, Plavix, and atorvastatin. Physical examination: Patient seen and examined at bedside. Vital signs reviewed and stable. General: Nontoxic, no distress and appears stated age. Derm: Skin warm and dry, normal coloration for ethnicity. Head: Atraumatic, normocephalic and symmetric. Eyes: EOMs intact, no lid lag, and anicteric sclera Mouth: no lip lesions, mucus membranes moist Cardiovascular: regular rate and rhythm with normal S1S2, no murmur, positive posterior tibial pulses bilaterally, and cap refill < 2 seconds. Lungs: Respirations even, regular, and unlabored on room air. Lungs CTA bilaterally, no rhonchi, no rales, no wheezing, and no accessory muscle usage. Abdominal: soft, nontender to palpation, no guarding, no appreciable organomegaly Ext: ROM intact. No gross muscle atrophy, no edema, no contractures Neuro: Speech clear, face symmetrical and CN II-XII grossly intact with no noted focal neuro deficits Psych: Alert and oriented to person, place, time, and situation. Appropriate and pleasant affect. A total of 35 minutes of time were spent preparing this complex discharge summary. Pt was discharged on 02/03/22 at 10:50 AM I reviewed the documentation as provided by the ELISE above, who is the original author of this note. I agree with the documented assessment and plan, with the following changes: none Patient Condition at Discharge: Stable Plan - Discharge Summary Discharge Rx Participant: No New Discharge Prescriptions: New NIFEdipine XL [Procardia XL] 60 mg PO DAILY 30 Days #30 tab Continue Isosorbide Mononitrate ER [Imdur] 60 mg PO DAILY DULoxetine HCL [Cymbalta] 30 mg PO HS Omeprazole 20 mg PO DAILY Clopidogrel [Plavix] 75 mg PO DAILY #30 tab Dulaglutide [Trulicity] 1.5 mg SQ SA levETIRAcetam [Keppra] 500 mg PO BID Atorvastatin [Lipitor] 20 mg PO HS Insulin Aspart [NovoLOG Flexpen] 12 units SQ AC-SUPPER Vitamin E 400 unit PO DAILY cloNIDine HCL [Catapres] 0.2 mg PO BID #60 tab Insulin Glargine,Hum.rec.anlog [Lantus Solostar Pen] 30 units SQ DAILY #0 Acetaminophen Tab [Tylenol] 650 mg PO Q6HR PRN tab PRN Reason: Fever And/ Or Pain Insulin Aspart [NovoLOG Flexpen] 5 units SQ AC-BID@0800,1200 Losartan [Cozaar] 25 mg PO HS Dapagliflozin Propanediol [Farxiga] 10 mg PO DAILY Loratadine 10 mg PO DAILY Insulin Aspart [NovoLOG Flexpen] See Protocol SQ TID-W/MEALS PRN PRN Reason: HIGH BLOOD SUGAR Discharge Medication List DULoxetine HCL [Cymbalta] 30 mg PO HS 03/13/16 [History] Isosorbide Mononitrate ER [Imdur] 60 mg PO DAILY 03/13/16 [History] Omeprazole 20 mg PO DAILY 07/08/20 [History] Clopidogrel [Plavix] 75 mg PO DAILY #30 tab 07/11/20 [Rx] Dulaglutide [Trulicity] 1.5 mg SQ SA 11/03/20 [History] levETIRAcetam [Keppra] 500 mg PO BID 12/11/20 [History] Atorvastatin [Lipitor] 20 mg PO HS 07/18/21 [History] Insulin Aspart [NovoLOG Flexpen] 5 units SQ AC-BID@0800,1200 07/28/21 [History] Insulin Aspart [NovoLOG Flexpen] 12 units SQ AC-SUPPER 07/28/21 [History] Losartan [Cozaar] 25 mg PO HS 07/28/21 [History] Dapagliflozin Propanediol [Farxiga] 10 mg PO DAILY 11/10/21 [History] Vitamin E 400 unit PO DAILY 11/10/21 [History] Insulin Glargine,Hum.rec.anlog [Lantus Solostar Pen] 30 units SQ DAILY #0 11/12/21 [Rx] cloNIDine HCL [Catapres] 0.2 mg PO BID #60 tab 11/12/21 [Rx] Acetaminophen Tab [Tylenol] 650 mg PO Q6HR PRN tab 11/19/21 [Rx] Insulin Aspart [NovoLOG Flexpen] See Protocol SQ TID-W/MEALS PRN 02/02/22 [History] Loratadine 10 mg PO DAILY 02/02/22 [History] NIFEdipine XL [Procardia XL] 60 mg PO DAILY 30 Days #30 tab 02/03/22 [Rx] Follow up Appointment(s)/Referral(s): Dennis Santana DO [Primary Care Provider] - 1-2 days Sam Gallagher MD [STAFF PHYSICIAN] - 02/11/22 3:15 pm Patient Instructions/Handouts: Hypertensive Crisis (DC) Activity/Diet/Wound Care/Special Instructions: Activity: As tolerated. Take breaks as needed. Rise slowly from lying to sitting and sitting to standing positions. Diet: Heart healthy and carb consistent diet. Avoid salts, or foods with hidden salts such as canned or boxed foods and frozen dinners. Extra salt makes your heart work harder and traps the fluid in your body for longer. Special Instructions: Take all of your medications as directed and remember to keep all of your doctor's appointments and follow-up as needed. Thank you for allowing us to participate in your care, it was truly a pleasure having you for our patient!!! Discharge Disposition: HOME SELF-CARE
== END 2022-02-03 12:30 | disposition home or self-care (01) | DRG 305 ==
LOC: EC 04:38 → OBSVTOIN 06:09 → 6NMEDSUR 06:09
PROVIDERS: ADMIT Internal Medicine; ATTEND Internal Medicine
DX: I16.0 Hypertensive urgency (principal); N17.9 Acute kidney failure, unspecified; I69.351 Hemiplegia and hemiparesis following cerebral infarction affecting right dominant side; H53.461 Homonymous bilateral field defects, right side; E11.22 Type 2 diabetes mellitus with diabetic chronic kidney disease; E11.40 Type 2 diabetes mellitus with diabetic neuropathy, unspecified; F01.50 Vascular dementia, unspecified severity, without behavioral disturbance, psychotic disturbance, mood disturbance, and anxiety; N18.30 Chronic kidney disease, stage 3 unspecified; G40.909 Epilepsy, unspecified, not intractable, without status epilepticus; Z79.4 Long term (current) use of insulin; I12.9 Hypertensive chronic kidney disease with stage 1 through stage 4 chronic kidney disease, or unspecified chronic kidney disease; E78.5 Hyperlipidemia, unspecified; I65.22 Occlusion and stenosis of left carotid artery; I69.311 Memory deficit following cerebral infarction; H53.9 Unspecified visual disturbance; I69.828 Other speech and language deficits following other cerebrovascular disease; I69.898 Other sequelae of other cerebrovascular disease; I25.10 Atherosclerotic heart disease of native coronary artery without angina pectoris; K76.9 Liver disease, unspecified; F32.A Depression, unspecified; G47.30 Sleep apnea, unspecified; M19.90 Unspecified osteoarthritis, unspecified site; H26.9 Unspecified cataract; Z79.02 Long term (current) use of antithrombotics/antiplatelets; Z79.84 Long term (current) use of oral hypoglycemic drugs; Z79.899 Other long term (current) drug therapy; Z87.442 Personal history of urinary calculi; Z86.69 Personal history of other diseases of the nervous system and sense organs; Z87.2 Personal history of diseases of the skin and subcutaneous tissue; Z90.49 Acquired absence of other specified parts of digestive tract; Z87.19 Personal history of other diseases of the digestive system; Z98.890 Other specified postprocedural states; Z83.3 Family history of diabetes mellitus; Z80.9 Family history of malignant neoplasm, unspecified
CPT/HCPCS: 36415; 70450; 80053; 82607; 83036; 83735; 83880; 84100; 84443; 84484; 85025; 85610; 85730; 93005; 96361; 96374; 96375; 99285

== ENCOUNTER 2022-08-07 17:36 | Emergency (ER) | payer MEDICARE ==
[2022-08-07 17:45] VITALS: TEMP 98.9
--- NOTE | 2022-08-07 17:59 | ED ---
General Adult HPI - General Chief complaint: Weakness Stated complaint: Dehydration, fall Time Seen by Provider: 08/07/22 17:49 Source: EMS Mode of arrival: EMS Limitations: language barrier, altered mental status - History of Present Illness Initial comments: Dictation was produced using Jogg dictation software. please excuse any grammatical, word or spelling errors. Chief Complaint: 77-year-old male with multiple comorbidities presents to emergency department after generalized weakness and fall History of Present Illness:. Patient is 77-year-old male he is a poor historian. Patient has multiple comorbidities including stroke, diabetes dyslipidemia and hypertension. Patient allegedly fell sometime today. Patient denies any pain complaints. States that he feels really weak. At baseline he allegedly care is for himself. There is been sick contacts recently in the household with multiple individuals testing positive for influenza. Patient reports that he is very sleepy and having trouble caring for himself. He doesn't take any anticoagulation medications. The ROS documented in this emergency department record has been reviewed and confirmed by me. Those systems with pertinent positive or negative responses have been documented in the HPI. All other systems are other negative and/or noncontributory. PHYSICAL EXAM: General Impression: Alert and oriented x3, not in acute distress, somnolent HEENT: Normocephalic atraumatic, extra-ocular movements intact, pupils equal and reactive to light bilaterally, dry mucous membranes Cardiovascular: Heart regular rate and rhythm Chest: Able to complete full sentences, no retractions, no tachypnea Abdomen: abdomen soft, non-tender, non-distended, no organomegaly Musculoskeletal: Pulses present and equal in all extremities, no peripheral edema Motor: no focal deficits noted Neurological: CN II-XII grossly intact, no focal motor or sensory deficits noted Skin: Intact with no visualized rashes Psych: Normal affect and mood ED course: 77-year-old male presents emergency department for increased weakness. He did report falling at some point today. Patient is a poor historian. [place] upon arrival are within acceptable limits. No obvious back injuries. My EKG interpretation: Ventricular rate 82, sinus rhythm, TN interval 149, QS 90, QTC 397. No TN prolongation, no QTC prolongation, no ST or T-wave changes noted. Overall, this EKG is unremarkable Laboratory evaluation obtained. CBC, coag panel, metabolic panel shows mild acidosis.. Elevated renal markers likely mild dehydration. Patient has had elevated renal markers in the past. Rest of metabolic panel is unremarkable. Abdominal labs negative. Influenza A positive. Chest x-ray and pelvis x-ray shows no acute processes. Computed tomography scan of the head and C-spine is negative for acute processes. Patient observed in emergency department for 2 hours and 15 minutes. Reevaluated at bedside at 7:55 PM found be stable medical condition. Patient given dose of Tamiflu. Daughter at the bedside reports that he is been symptomatic for a little under a week. Given that patient is not improving very rapidly Tamiflu may provide some benefit. Daughter at the bedside reports that she is agreeable to take patient home. They're advised to follow-up with primary care doctor or return to the emergency department if symptoms acutely worsen or patient is not improving. - Related Data Home Medications Medication Instructions Recorded Confirmed DULoxetine HCL [Cymbalta] 30 mg PO HS 03/13/16 02/02/22 Isosorbide Mononitrate ER [Imdur] 60 mg PO DAILY 03/13/16 02/02/22 Omeprazole 20 mg PO DAILY 07/08/20 02/02/22 Dulaglutide [Trulicity] 1.5 mg SQ SA 11/03/20 02/02/22 levETIRAcetam [Keppra] 500 mg PO BID 12/11/20 02/02/22 Atorvastatin [Lipitor] 20 mg PO HS 07/18/21 02/02/22 Insulin Aspart [NovoLOG Flexpen] 5 units SQ AC-BID@0800,1200 07/28/21 02/02/22 Insulin Aspart [NovoLOG Flexpen] 12 units SQ AC-SUPPER 07/28/21 02/02/22 Losartan [Cozaar] 25 mg PO HS 07/28/21 02/02/22 Dapagliflozin Propanediol [Farxiga] 10 mg PO DAILY 11/10/21 02/02/22 Vitamin E 400 unit PO DAILY 11/10/21 02/02/22 Insulin Aspart [NovoLOG Flexpen] See Protocol SQ TID-W/MEALS PRN 02/02/22 02/02/22 Loratadine 10 mg PO DAILY 02/02/22 02/02/22 Previous Rx's Medication Instructions Recorded Clopidogrel [Plavix] 75 mg PO DAILY #30 tab 07/11/20 Insulin Glargine,Hum.rec.anlog 30 units SQ DAILY #0 11/12/21 [Lantus Solostar Pen] cloNIDine HCL [Catapres] 0.2 mg PO BID #60 tab 11/12/21 Acetaminophen Tab [Tylenol] 650 mg PO Q6HR PRN tab 11/19/21 NIFEdipine XL [Procardia XL] 60 mg PO DAILY 30 Days #30 tab 02/03/22 Ondansetron Odt [Zofran Odt] 4 mg PO Q8HR PRN #12 tab 08/07/22 Oseltamivir [Tamiflu] 75 mg PO Q12HR 5 Days #10 cap 08/07/22 Allergies Allergy/AdvReac Type Severity Reaction Status Date / Time No Known Allergies Allergy Verified 08/07/22 17:45 Review of Systems ROS Statement: Those systems with pertinent positive or pertinent negative responses have been documented in the HPI. ROS Other: All systems not noted in ROS Statement are negative. Past Medical History Past Medical History: CVA/TIA, Diabetes Mellitus, Hyperlipidemia, Hypertension, Liver Disease, Renal Disease, Sleep Apnea/CPAP/BIPAP Additional Past Medical History / Comment(s): ARTHRITIS, kidney stones, possible dementia, kidney failure, neuropathy alia legs, carpal tunnel. CVA-oct balance issues,speech impairment,vision impairment, receives injections to eyes r/t bleeding History of Any Multi-Drug Resistant Organisms: None Reported Past Surgical History: Back Surgery Additional Past Surgical History / Comment(s): MASS REMOVED FROM BACK OF HEAD, eye surgery, Past Anesthesia/Blood Transfusion Reactions: No Reported Reaction Past Psychological History: Depression Smoking Status: Never smoker Past Alcohol Use History: None Reported Past Drug Use History: None Reported - Past Family History Father Family Medical History: Diabetes Mellitus Mother Family Medical History: Diabetes Mellitus Brother(s) Family Medical History: Cancer Sister(s) Family Medical History: Cancer General Exam Limitations: language barrier, altered mental status Course Vital Signs 08/07/22 08/07/22 08/07/22 17:39 18:49 19:32 Temperature 98.9 F Pulse Rate 84 79 82 Respiratory 18 18 16 Rate Blood Pressure 101/62 109/95 127/77 O2 Sat by Pulse 94 L 98 97 Oximetry Medical Decision Making - Lab Data Result diagrams: 08/07/22 17:59 08/07/22 17:59 Lab Results 08/07/22 08/07/22 08/07/22 Range/Units 17:56 17:59 17:59 WBC 3.9 (3.8-10.6) k/uL RBC 4.54 (4.30-5.90) m/uL Hgb 13.6 (13.0-17.5) gm/dL Hct 41.6 (39.0-53.0) % MCV 91.6 (80.0-100.0) fL MCH 29.9 (25.0-35.0) pg MCHC 32.7 (31.0-37.0) g/dL RDW 13.5 (11.5-15.5) % Plt Count 213 (150-450) k/uL MPV 8.4 Neutrophils % 73 % Lymphocytes % 18 % Monocytes % 6 % Eosinophils % 0 % Basophils % 1 % Neutrophils # 2.9 (1.3-7.7) k/uL Lymphocytes # 0.7 L (1.0-4.8) k/uL Monocytes # 0.3 (0-1.0) k/uL Eosinophils # 0.0 (0-0.7) k/uL Basophils # 0.0 (0-0.2) k/uL PT (9.0-12.0) sec INR (<1.2) APTT (22.0-30.0) sec Sodium 134 L (137-145) mmol/L Potassium 4.4 (3.5-5.1) mmol/L Chloride 108 H (98-107) mmol/L Carbon Dioxide 18 L (22-30) mmol/L Anion Gap 8 mmol/L BUN 35 H (9-20) mg/dL Creatinine 2.41 H (0.66-1.25) mg/dL Est GFR (CKD-EPI)AfAm 29 (>60 ml/min/1.73 sqM) Est GFR (CKD-EPI)NonAf 25 (>60 ml/min/1.73 sqM) Glucose 335 H (74-99) mg/dL Plasma Lactic Acid Jens (0.7-2.0) mmol/L Calcium 7.7 L (8.4-10.2) mg/dL Magnesium 2.1 (1.6-2.3) mg/dL Total Bilirubin 0.3 (0.2-1.3) mg/dL AST 45 (17-59) U/L ALT 32 (4-49) U/L Alkaline Phosphatase 124 (38-126) U/L Ammonia (<30) umol/L Troponin I (0.000-0.034) ng/mL Total Protein 5.8 L (6.3-8.2) g/dL Albumin 3.2 L (3.5-5.0) g/dL Influenza Type A (PCR) Detected A (Not Detectd) Influenza Type B (PCR) Not Detected (Not Detectd) RSV (PCR) Not Detected (Not Detectd) SARS-CoV-2 (PCR) Not Detected (Not Detectd) 08/07/22 08/07/22 08/07/22 Range/Units 17:59 17:59 17:59 WBC (3.8-10.6) k/uL RBC (4.30-5.90) m/uL Hgb (13.0-17.5) gm/dL Hct (39.0-53.0) % MCV (80.0-100.0) fL MCH (25.0-35.0) pg MCHC (31.0-37.0) g/dL RDW (11.5-15.5) % Plt Count (150-450) k/uL MPV Neutrophils % % Lymphocytes % % Monocytes % % Eosinophils % % Basophils % % Neutrophils # (1.3-7.7) k/uL Lymphocytes # (1.0-4.8) k/uL Monocytes # (0-1.0) k/uL Eosinophils # (0-0.7) k/uL Basophils # (0-0.2) k/uL PT 9.6 (9.0-12.0) sec INR 0.9 (<1.2) APTT 21.2 L (22.0-30.0) sec Sodium (137-145) mmol/L Potassium (3.5-5.1) mmol/L Chloride (98-107) mmol/L Carbon Dioxide (22-30) mmol/L Anion Gap mmol/L BUN (9-20) mg/dL Creatinine (0.66-1.25) mg/dL Est GFR (CKD-EPI)AfAm (>60 ml/min/1.73 sqM) Est GFR (CKD-EPI)NonAf (>60 ml/min/1.73 sqM) Glucose (74-99) mg/dL Plasma Lactic Acid Jens 1.1 (0.7-2.0) mmol/L Calcium (8.4-10.2) mg/dL Magnesium (1.6-2.3) mg/dL Total Bilirubin (0.2-1.3) mg/dL AST (17-59) U/L ALT (4-49) U/L Alkaline Phosphatase (38-126) U/L Ammonia <9 (<30) umol/L Troponin I <0.012 (0.000-0.034) ng/mL Total Protein (6.3-8.2) g/dL Albumin (3.5-5.0) g/dL Influenza Type A (PCR) (Not Detectd) Influenza Type B (PCR) (Not Detectd) RSV (PCR) (Not Detectd) SARS-CoV-2 (PCR) (Not Detectd) Disposition Clinical Impression: Influenza A Disposition: HOME SELF-CARE Condition: Fair Instructions (If sedation given, give patient instructions): Influenza (ED) Prescriptions: Oseltamivir [Tamiflu] 75 mg PO Q12HR 5 Days #10 cap Ondansetron Odt [Zofran Odt] 4 mg PO Q8HR PRN #12 tab PRN Reason: Nausea Is patient prescribed a controlled substance at d/c from ED?: No Referrals: Dennis Santana DO [Primary Care Provider] - 1-2 days Time of Disposition: 20:13
[2022-08-07 18:22] LABS: Basophils % (A) 1 %; Eosinophils % (A) 0 %; HCT 41.6 % (39.0-53.0); HGB 13.6 gm/dL (13.0-17.5); Lactic Acid, Venous 1.1 mmol/L (0.7-2.0); Lymphocytes # (A) 0.7 k/uL (1.0-4.8); Lymphocytes % (A) 18 %; MCH 29.9 pg (25.0-35.0); MCHC 32.7 g/dL (31.0-37.0); MCV 91.6 fL (80.0-100.0); Mean Platelet Volume 8.4; Monocytes # (A) 0.3 k/uL (0-1.0); Monocytes % (A) 6 %; Neutrophils # (A) 2.9 k/uL (1.3-7.7); Neutrophils % (A) 73 %; Platelet Count 213 k/uL (150-450); RBC 4.54 m/uL (4.30-5.90); RDW 13.5 % (11.5-15.5); WBC 3.9 k/uL (3.8-10.6)
[2022-08-07 18:31] LABS: Albumin 3.2 g/dL (3.5-5.0); Calcium 7.7 mg/dL (8.4-10.2); Magnesium 2.1 mg/dL (1.6-2.3); Potassium 4.4 mmol/L (3.5-5.1); Total Bilirubin 0.3 mg/dL (0.2-1.3); Total Protein 5.8 g/dL (6.3-8.2)
[2022-08-07] MEDS ORDERED: SODIUM CHLORIDE 0.9% 1,000 ML IV STA (18:38)
[2022-08-07 18:39] LABS: INR 0.9 (<1.2); Prothrombin Time 9.6 sec (9.0-12.0)
[2022-08-07 18:53] LABS: Partial Thromboplastin Time 21.2 sec (22.0-30.0)
--- NOTE | 2022-08-07 18:56 | XR ---
EXAMINATION: XR chest 1V portable DATE AND TIME: 08/07/2022 6:18 PM CLINICAL INDICATION: Pain after fall TECHNIQUE: Departmental protocol COMPARISON: 11/17/2021 FINDINGS: The right and left hemidiaphragms are elevated consistent with hypoinflation of the moment of x-ray e xposure. This does not rule out good visualization of the lower lobes. In any case, the lungs parench yma which can be seen appears well expanded and clear. The pleural spaces are negative. Defibrillator noted over the left chest wall. The cardiac silhouette is not enlarged. The remainder of the mediastinal silhouette is unremarkable. The skeletal structures and soft tissues are negative for acute findings. IMPRESSION: NO ACUTE PROCESS.
--- NOTE | 2022-08-07 18:58 | XR ---
PROCEDURE: XR pelvis AP view DATE AND TIME: 08/07/2022 6:18 PM CLINICAL INDICATION: Pain/ fall TECHNIQUE: Department protocol COMPARISON: None FINDINGS: There is no fracture or malalignment. The soft tissues are unremarkable. IMPRESSION: NO ACUTE PROCESS.
[2022-08-07] MEDS ORDERED: OSELTAMIVIR 75 MG CAP PO STA (19:12)
--- NOTE | 2022-08-07 19:22 | CT ---
EXAMINATION TYPE: CT brain cspine wo con DATE OF EXAM: 08/07/2022 COMPARISON: 02/02/2022 HISTORY: pain/fall CT DLP: 1739.4 mGycm. Automated Exposure Control for Dose Reduction was Utilized. TECHNIQUE: CT scan of the head and cervical spine are performed without contrast. FINDINGS: The previously seen bilateral zones of encephalomalacia are redemonstrated. There is no ac [place] intracranial hemorrhage, mass effect, or midline shift identified. The ventricles and sulci are within normal limits in size. The globes are intact and the visualized sinuses are clear. Cervical spine is visualized in its entirety from C1 through upper thoracic levels and demonstrates s atisfactory alignment without evidence of acute fracture or dislocation. Prevertebral soft tissue ap pears within normal limits. The C1-C2 articulation is unremarkable. IMPRESSION: 1. There is no acute fracture or dislocation evident in the cervical spine. 2. No acute intracranial hemorrhage, mass effect, or midline shift is seen. Remote left occipital pa rietal temporal infarction and right parieto-occipital infarctions are redemonstrated, stable in appe arance.
[2022-08-07 19:33] VITALS: PULSE 82; RESP 16
[2022-08-07 20:55] VITALS: BP 140/80
== END 2022-08-07 20:54 | disposition home or self-care (01) ==
LOC: EC 17:36
DX: J10.1 Influenza due to other identified influenza virus with other respiratory manifestations (principal); Z86.73 Personal history of transient ischemic attack (TIA), and cerebral infarction without residual deficits; I12.9 Hypertensive chronic kidney disease with stage 1 through stage 4 chronic kidney disease, or unspecified chronic kidney disease; E11.9 Type 2 diabetes mellitus without complications; E78.5 Hyperlipidemia, unspecified; N18.9 Chronic kidney disease, unspecified; F32.A Depression, unspecified; Z79.4 Long term (current) use of insulin; Z79.899 Other long term (current) drug therapy; Z20.822 Contact with and (suspected) exposure to COVID-19
CPT/HCPCS: 36415; 70450; 71045; 72125; 72170; 80053; 82140; 83605; 83735; 84484; 85025; 85610; 85730; 87636; 93005; 96360; 96361; 99285

== ENCOUNTER 2023-02-11 19:53 | Emergency (ER) | payer MEDICARE, OTHER ==
--- NOTE | 2023-02-11 20:39 | ED ---
General Adult HPI - General Source: RN notes reviewed <Beverly Aviles - Last Filed: 02/11/23 20:38> <Omer Jolley - Last Filed: 02/12/23 05:48> - General Stated complaint: Fever,headache Time Seen by Provider: 02/11/23 20:38 - History of Present Illness Initial comments: Patient is a 77-year-old male who presents to the emergency department for fever. Patient has had fever and upper respiratory symptoms today including productive cough, headache, sore throat. No chest pain or shortness of breath. (Beverly Aviles) This is a 77-year-old male with a past medical history including previous CVA and hypertension presents emergency department for body aches, chills as well as fevers and feeling as if he is dehydrated. The patient stated that the symptoms have been present over the last 2 days and stated that he had nasal congestion as well as cough and congestion in the chest. The patient denied any other acute pain or complaints at this time. The patient's daughter and patient's were at the bedside and did state that the patient has been having symptoms consistent over the last 2 days. He denied any recent sick contacts. The patient denied any other acute complaints currently at this time. (Omer Jolley) - Related Data Home Medications Medication Instructions Recorded Confirmed DULoxetine HCL [Cymbalta] 30 mg PO HS 03/13/16 02/02/22 Isosorbide Mononitrate ER [Imdur] 60 mg PO DAILY 03/13/16 02/02/22 Omeprazole 20 mg PO DAILY 07/08/20 02/02/22 Dulaglutide [Trulicity] 1.5 mg SQ SA 11/03/20 02/02/22 levETIRAcetam [Keppra] 500 mg PO BID 12/11/20 02/02/22 Atorvastatin [Lipitor] 20 mg PO HS 07/18/21 02/02/22 Insulin Aspart [NovoLOG Flexpen] 5 units SQ AC-BID@0800,1200 07/28/21 02/02/22 Insulin Aspart [NovoLOG Flexpen] 12 units SQ AC-SUPPER 07/28/21 02/02/22 Losartan [Cozaar] 25 mg PO HS 07/28/21 02/02/22 Dapagliflozin Propanediol [Farxiga] 10 mg PO DAILY 11/10/21 02/02/22 Vitamin E 400 unit PO DAILY 11/10/21 02/02/22 Insulin Aspart [NovoLOG Flexpen] See Protocol SQ TID-W/MEALS PRN 02/02/22 02/02/22 Loratadine 10 mg PO DAILY 02/02/22 02/02/22 Previous Rx's Medication Instructions Recorded Clopidogrel [Plavix] 75 mg PO DAILY #30 tab 07/11/20 Insulin Glargine,Hum.rec.anlog 30 units SQ DAILY #0 11/12/21 [Lantus Solostar Pen] cloNIDine HCL [Catapres] 0.2 mg PO BID #60 tab 11/12/21 Acetaminophen Tab [Tylenol] 650 mg PO Q6HR PRN tab 11/19/21 NIFEdipine XL [Procardia XL] 60 mg PO DAILY 30 Days #30 tab 02/03/22 Ondansetron Odt [Zofran Odt] 4 mg PO Q8HR PRN #12 tab 08/07/22 Oseltamivir [Tamiflu] 75 mg PO Q12HR 5 Days #10 cap 08/07/22 Allergies Allergy/AdvReac Type Severity Reaction Status Date / Time No Known Allergies Allergy Verified 02/11/23 20:45 Review of Systems ROS Other: All systems not noted in ROS Statement are negative. <Beverly Aviles - Last Filed: 02/11/23 20:38> ROS Other: All systems not noted in ROS Statement are negative. <Omer Jolley - Last Filed: 02/12/23 05:48> ROS Statement: Those systems with pertinent positive or pertinent negative responses have been documented in the HPI. Past Medical History Past Medical History: CVA/TIA, Diabetes Mellitus, Hyperlipidemia, Hypertension, Liver Disease, Renal Disease, Sleep Apnea/CPAP/BIPAP Additional Past Medical History / Comment(s): ARTHRITIS, kidney stones, possible dementia, kidney failure, neuropathy alia legs, carpal tunnel. CVA-jul 17 balance issues,speech impairment,vision impairment, receives injections to eyes r/t bleeding History of Any Multi-Drug Resistant Organisms: None Reported Past Surgical History: Back Surgery Additional Past Surgical History / Comment(s): MASS REMOVED FROM BACK OF HEAD, eye surgery, Past Anesthesia/Blood Transfusion Reactions: No Reported Reaction Past Psychological History: Depression Smoking Status: Never smoker Past Alcohol Use History: None Reported Past Drug Use History: None Reported - Past Family History Father Family Medical History: Diabetes Mellitus Mother Family Medical History: Diabetes Mellitus Brother(s) Family Medical History: Cancer Sister(s) Family Medical History: Cancer <Beverly Aviles - Last Filed: 02/11/23 20:38> General Exam <Beverly Aviles - Last Filed: 02/11/23 20:38> Limitations: no limitations General appearance: alert, in no apparent distress Head exam: Present: atraumatic, normocephalic, normal inspection Eye exam: Present: normal appearance, PERRL Pupils: Present: normal accommodation ENT exam: Present: normal exam, normal oropharynx, mucous membranes moist Neck exam: Present: normal inspection, full ROM Respiratory exam: Present: normal lung sounds bilaterally Cardiovascular Exam: Present: regular rate, normal rhythm, normal heart sounds GI/Abdominal exam: Present: soft, normal bowel sounds Extremities exam: Present: normal inspection, full ROM Back exam: Present: normal inspection, full ROM Neurological exam: Present: alert, oriented X3, CN II-XII intact Psychiatric exam: Present: normal affect, normal mood Skin exam: Present: warm, dry <Omer Jolley - Last Filed: 02/12/23 05:48> - General Exam Comments Initial Comments: Visual Physical Exam Vital signs reviewed General: Well-appearing, nontoxic, no acute distress. Head: Normocephalic, atraumatic Eyes: PERRLA, EOMI ENT: Airway patent Chest: Nonlabored breathing Skin: No visual rash, normal skin tone Neuro: Alert and oriented 3 Musculoskeletal: No gross abnormalities (Beverly Aviles) Course Vital Signs 02/11/23 02/12/23 20:42 01:43 Temperature 98.1 F 99.4 F Pulse Rate 78 86 Respiratory 20 18 Rate Blood Pressure 129/75 130/85 O2 Sat by Pulse 98 97 Oximetry Medical Decision Making - Lab Data Result diagrams: 02/12/23 00:07 02/12/23 00:07 <Omer Jolley - Last Filed: 02/12/23 05:48> - Medical Decision Making Was pt. sent in by a medical professional or institution (, PA, [facility], urgent care, hospital, or detention...) When possible be specific @ -No Did you speak to anyone other than the patient for history (EMS, parent, family, police, friend...)? What history was obtained from this source @ -Yes, patient's daughter and patient's did confirm that the patient has had a subjective fever at home as well as confirming his symptoms at home over the last 2 days. Did you review nursing and triage notes (agree or disagree)? Why? @ -I reviewed and agree with nursing and triage notes Were old charts reviewed (outside hosp., previous admission, EMS record, old EKG, old radiological studies, urgent care reports/EKG's, detention records)? Report findings @ -No old charts were reviewed Differential Diagnosis (chest pain, altered mental status, abdominal pain women, abdominal pain men, vaginal bleeding, weakness, fever, dyspnea, syncope, headache, dizziness, GI bleed, back pain, seizure, CVA, palpatations, mental health)? @ -Pneumonia, URI, sepsis EKG interpreted by me (3pts min.). @ -None X-rays interpreted by me (1pt min.). @ -Chest x-ray was obtained and was interpreted by myself showing no acute process. CT interpreted by me (1pt min.). @ -None done U/S interpreted by me (1pt. min.). @ -None done What testing was considered but not performed or refused? (CT, X-rays, U/S, labs)? Why? @ -None What meds were considered but not given or refused? Why? @ -None Did you discuss the management of the patient with other professionals (professionals i.e. , PA, [facility], lab, RT, psych nurse, social studies teacher, deputy chief magistrate, teacher, deputy probation officer, correctional case manager)? Give summary @ -No Was smoking cessation discussed for >3mins.? @ -No Was critical care preformed (if so, how long)? @ -No Were there social determinants of health that impacted care today? How? (Homelessness, low income, unemployed, alcoholism, drug addiction, transportation, low edu. Level, literacy, decrease access to med. care, [facility], rehab)? @ -No Was there de-escalation of care discussed even if they declined (Discuss DNR or withdrawal of care, Hospice)? DNR status @ -No What co-morbidities impacted this encounter? (DM, HTN, Smoking, COPD, CAD, Cancer, CVA, ARF, Chemo, Hep., AIDS, mental health diagnosis, sleep apnea, morbid obesity)? @ -Previous CVA, hypertension Was patient admitted / discharged? Hospital course, mention meds given and route, prescriptions, significant lab abnormalities, going to OR and other pert inent info. @ -The patient was seen and evaluated in emergency department. On physical exam, the patient was resting in bed without any acute distress. Vital signs admission were stable. The patient was afebrile. Swabs as well as chest x-ray were obtained in triage and within normal limits and negative. Laboratory workup was also obtained and was all within normal limits. The patient received 1 L normal saline fluid. The patient likely had a URI as a cause of his sympt oms and he was advised to continue to take Tylenol Motrin at home and to monitor his symptoms. They were advised report back to the emergency department get worsening pain or shortness of breath. The patient was agreeable to this and all discretions were answered appropriate. The patient was discharged home in stable condition. Undiagnosed new problem with uncertain prognosis? @ -No Drug Therapy requiring intensive monitoring for toxicity (Heparin, Nitro, Insulin, Cardizem)? @ -No Were any procedures done? @ -No Diagnosis/symptom? @ -Upper respiratory infection Acute, or Chronic, or Acute on Chronic? @ -Acute Uncomplicated (without systemic symptoms) or Complicated (systemic symptoms)? @ -Uncomplicated Side effects of treatment? @ -No Exacerbation, Progression, or Severe Exacerbation? @ -No Poses a threat to life or bodily function? How? (Chest pain, [place], NH, pneumonia, PE, COPD, DKA, ARF, appy, cholecystitis, CVA, Diverticulitis, Homicidal, Suicidal, threat to staff... and all critical care pts) @ -No (Omer Jolley) - Lab Data Lab Results 02/11/23 02/11/23 02/12/23 Range/Units 20:45 20:45 00:07 WBC 5.5 (3.8-10.6) k/uL RBC 4.86 (4.30-5.90) m/uL Hgb 14.5 (13.0-17.5) gm/dL Hct 44.0 (39.0-53.0) % MCV 90.5 (80.0-100.0) fL MCH 29.9 (25.0-35.0) pg MCHC 33.0 (31.0-37.0) g/dL RDW 13.8 (11.5-15.5) % Plt Count 287 (150-450) k/uL MPV 7.4 Neutrophils % 65 % Lymphocytes % 27 % Monocytes % 5 % Eosinophils % 1 % Basophils % 1 % Neutrophils # 3.6 (1.3-7.7) k/uL Lymphocytes # 1.5 (1.0-4.8) k/uL Monocytes # 0.3 (0-1.0) k/uL Eosinophils # 0.0 (0-0.7) k/uL Basophils # 0.1 (0-0.2) k/uL Sodium (137-145) mmol/L Potassium (3.5-5.1) mmol/L Chloride (98-107) mmol/L Carbon Dioxide (22-30) mmol/L Anion Gap mmol/L BUN (9-20) mg/dL Creatinine (0.66-1.25) mg/dL Est GFR (CKD-EPI)AfAm (>60 ml/min/1.73 sqM) Est GFR (CKD-EPI)NonAf (>60 ml/min/1.73 sqM) Glucose (74-99) mg/dL Calcium (8.4-10.2) mg/dL Magnesium (1.6-2.3) mg/dL Total Bilirubin (0.2-1.3) mg/dL AST (17-59) U/L ALT (4-49) U/L Alkaline Phosphatase (38-126) U/L Troponin I (0.000-0.034) ng/mL NT-Pro-B Natriuret Pep pg/mL Total Protein (6.3-8.2) g/dL Albumin (3.5-5.0) g/dL Lipase (23-300) U/L Influenza Type A (PCR) Not Detected (Not Detectd) Influenza Type B (PCR) Not Detected (Not Detectd) RSV (PCR) Not Detected (Not Detectd) SARS-CoV-2 (PCR) Not Detected (Not Detectd) Group A Strep (PCR) NOT DETECTED (Not Detectd) 02/12/23 02/12/23 02/12/23 Range/Units 00:07 00:07 00:07 WBC (3.8-10.6) k/uL RBC (4.30-5.90) m/uL Hgb (13.0-17.5) gm/dL Hct (39.0-53.0) % MCV (80.0-100.0) fL MCH (25.0-35.0) pg MCHC (31.0-37.0) g/dL RDW (11.5-15.5) % Plt Count (150-450) k/uL MPV Neutrophils % % Lymphocytes % % Monocytes % % Eosinophils % % Basophils % % Neutrophils # (1.3-7.7) k/uL Lymphocytes # (1.0-4.8) k/uL Monocytes # (0-1.0) k/uL Eosinophils # (0-0.7) k/uL Basophils # (0-0.2) k/uL Sodium 138 (137-145) mmol/L Potassium 4.3 (3.5-5.1) mmol/L Chloride 104 (98-107) mmol/L Carbon Dioxide 24 (22-30) mmol/L Anion Gap 10 mmol/L BUN 35 H (9-20) mg/dL Creatinine 2.46 H (0.66-1.25) mg/dL Est GFR (CKD-EPI)AfAm 28 (>60 ml/min/1.73 sqM) Est GFR (CKD-EPI)NonAf 25 (>60 ml/min/1.73 sqM) Glucose 213 H (74-99) mg/dL Calcium 8.5 (8.4-10.2) mg/dL Magnesium 2.3 (1.6-2.3) mg/dL Total Bilirubin 0.2 (0.2-1.3) mg/dL AST 25 (17-59) U/L ALT 19 (4-49) U/L Alkaline Phosphatase 149 H (38-126) U/L Troponin I <0.012 (0.000-0.034) ng/mL NT-Pro-B Natriuret Pep 214 pg/mL Total Protein 6.2 L (6.3-8.2) g/dL Albumin 3.4 L (3.5-5.0) g/dL Lipase 95 (23-300) U/L Influenza Type A (PCR) (Not Detectd) Influenza Type B (PCR) (Not Detectd) RSV (PCR) (Not Detectd) SARS-CoV-2 (PCR) (Not Detectd) Group A Strep (PCR) (Not Detectd) Disposition <Beverly Aviles - Last Filed: 02/11/23 20:38> Is patient prescribed a controlled substance at d/c from ED?: No Time of Disposition: 01:00 <Omer Jolley - Last Filed: 02/12/23 05:48> Clinical Impression: URI (upper respiratory infection) Disposition: HOME SELF-CARE Condition: Stable Instructions (If sedation given, give patient instructions): Upper Respiratory Infection (DC) Referrals: None,Stated [REFERRING] - 1-2 days
--- NOTE | 2023-02-11 21:04 | XR ---
EXAMINATION TYPE: XR chest 2V DATE OF EXAM: 02/11/2023 COMPARISON: Chest x-ray August 07, 2022 HISTORY: Cough. TECHNIQUE: Frontal and lateral views of the chest are obtained. FINDINGS: Improved inspiration. There is some chronic parenchymal changes without suspicious new foc al air space opacity, pleural effusion, or pneumothorax seen. The cardiac silhouette size is stable and within normal limits. Overlying loop recorder redemonstrated. Anterior bridging osteophytes in the thoracic spine are seen. Correlate for DISH. IMPRESSION: No new acute infiltrate.
[2023-02-11] MEDS ORDERED: SODIUM CHLORIDE 0.9% 1,000 ML IV ONE (23:40)
[2023-02-12 00:36] LABS: Basophils # (A) 0.1 k/uL (0-0.2); Basophils % (A) 1 %; Eosinophils % (A) 1 %; HGB 14.5 gm/dL (13.0-17.5); Lymphocytes # (A) 1.5 k/uL (1.0-4.8); Lymphocytes % (A) 27 %; MCH 29.9 pg (25.0-35.0); MCV 90.5 fL (80.0-100.0); Mean Platelet Volume 7.4; Monocytes # (A) 0.3 k/uL (0-1.0); Monocytes % (A) 5 %; Neutrophils # (A) 3.6 k/uL (1.3-7.7); Neutrophils % (A) 65 %; Platelet Count 287 k/uL (150-450); RBC 4.86 m/uL (4.30-5.90); RDW 13.8 % (11.5-15.5); WBC 5.5 k/uL (3.8-10.6)
[2023-02-12 00:48] LABS: Albumin 3.4 g/dL (3.5-5.0); Calcium 8.5 mg/dL (8.4-10.2); Magnesium 2.3 mg/dL (1.6-2.3); Potassium 4.3 mmol/L (3.5-5.1); Total Bilirubin 0.2 mg/dL (0.2-1.3); Total Protein 6.2 g/dL (6.3-8.2)
[2023-02-12 01:44] VITALS: BP 130/85; PULSE 86; RESP 18; TEMP 99.4
== END 2023-02-12 01:44 | disposition home or self-care (01) ==
LOC: EC 19:53
DX: J06.9 Acute upper respiratory infection, unspecified (principal); E11.9 Type 2 diabetes mellitus without complications; E78.5 Hyperlipidemia, unspecified; I10 Essential (primary) hypertension; Z86.73 Personal history of transient ischemic attack (TIA), and cerebral infarction without residual deficits; F32.A Depression, unspecified; Z79.4 Long term (current) use of insulin; Z79.899 Other long term (current) drug therapy; Z20.822 Contact with and (suspected) exposure to COVID-19
CPT/HCPCS: 36415; 71046; 80053; 83690; 83735; 83880; 84484; 85025; 87636; 87651; 96360; 99284

== ENCOUNTER 2023-12-05 21:52 | Observation (INO) | payer MEDICARE, OTHER ==
--- NOTE | 2023-12-05 22:40 | ED ---
General Adult HPI - General Chief complaint: Back Pain/Injury Stated complaint: back pain fever Time Seen by Provider: 12/05/23 22:01 Source: patient, family, RN notes reviewed, old records reviewed Mode of arrival: wheelchair Limitations: no limitations - History of Present Illness Initial comments: 78-year-old male presenting for evaluation of cough, congestion, mild dyspnea. Patient also reports lower extremity swelling. Symptoms have been present for the past 4 to 5 days. Family members have similar symptoms. The patient reports a nonproductive cough. He also reports back pain, this is diffuse. No abdominal pain. No chest pain. He reports that he has been off of his clonidine for the past several days. - Related Data Home Medications Medication Instructions Recorded Confirmed DULoxetine HCL [Cymbalta] 30 mg PO HS 03/13/16 02/02/22 Isosorbide Mononitrate ER [Imdur] 60 mg PO DAILY 03/13/16 02/02/22 Omeprazole 20 mg PO DAILY 07/08/20 02/02/22 Dulaglutide [Trulicity] 1.5 mg SQ SA 11/03/20 02/02/22 levETIRAcetam [Keppra] 500 mg PO BID 12/11/20 02/02/22 Atorvastatin [Lipitor] 20 mg PO HS 07/18/21 02/02/22 Insulin Aspart [NovoLOG Flexpen] 5 units SQ AC-BID@0800,1200 07/28/21 02/02/22 Insulin Aspart [NovoLOG Flexpen] 12 units SQ AC-SUPPER 07/28/21 02/02/22 Losartan [Cozaar] 25 mg PO HS 07/28/21 02/02/22 Dapagliflozin Propanediol [Farxiga] 10 mg PO DAILY 11/10/21 02/02/22 Vitamin E 400 unit PO DAILY 11/10/21 02/02/22 Insulin Aspart [NovoLOG Flexpen] See Protocol SQ TID-W/MEALS PRN 02/02/22 02/02/22 Loratadine 10 mg PO DAILY 02/02/22 02/02/22 Previous Rx's Medication Instructions Recorded Clopidogrel [Plavix] 75 mg PO DAILY #30 tab 07/11/20 Insulin Glargine,Hum.rec.anlog 30 units SQ DAILY #0 11/12/21 [Lantus Solostar Pen] cloNIDine HCL [Catapres] 0.2 mg PO BID #60 tab 11/12/21 Acetaminophen Tab [Tylenol] 650 mg PO Q6HR PRN tab 11/19/21 NIFEdipine XL [Procardia XL] 60 mg PO DAILY 30 Days #30 tab 02/03/22 Ondansetron Odt [Zofran Odt] 4 mg PO Q8HR PRN #12 tab 08/07/22 Oseltamivir [Tamiflu] 75 mg PO Q12HR 5 Days #10 cap 08/07/22 Allergies Allergy/AdvReac Type Severity Reaction Status Date / Time No Known Allergies Allergy Verified 02/11/23 20:45 Review of Systems ROS Statement: Those systems with pertinent positive or pertinent negative responses have been documented in the HPI. ROS Other: All systems not noted in ROS Statement are negative. Past Medical History Past Medical History: CVA/TIA, Diabetes Mellitus, Hyperlipidemia, Hypertension, Liver Disease, Renal Disease, Sleep Apnea/CPAP/BIPAP Additional Past Medical History / Comment(s): ARTHRITIS, kidney stones, possible dementia, kidney failure, neuropathy alia legs, carpal tunnel. CVA-jul 17 balance issues,speech impairment,vision impairment, receives injections to eyes r/t bleeding ,COVID 07/28/2022 History of Any Multi-Drug Resistant Organisms: None Reported Past Surgical History: Back Surgery Additional Past Surgical History / Comment(s): MASS REMOVED FROM BACK OF HEAD, eye surgery, Past Anesthesia/Blood Transfusion Reactions: No Reported Reaction Past Psychological History: Depression Smoking Status: Never smoker Past Alcohol Use History: None Reported Past Drug Use History: None Reported - Past Family History Father Family Medical History: Diabetes Mellitus Mother Family Medical History: Diabetes Mellitus Brother(s) Family Medical History: Cancer Sister(s) Family Medical History: Cancer General Exam Limitations: no limitations General appearance: alert, in no apparent distress Head exam: Present: atraumatic, normocephalic Eye exam: Present: normal appearance, PERRL ENT exam: Present: normal exam Neck exam: Present: normal inspection. Absent: meningismus Respiratory exam: Present: rales. Absent: respiratory distress, wheezes, rhonchi Cardiovascular Exam: Present: regular rate, normal rhythm GI/Abdominal exam: Present: soft. Absent: distended, tenderness, guarding Extremities exam: Present: pedal edema Neurological exam: Present: alert, oriented X3, CN II-XII intact. Absent: motor sensory deficit Psychiatric exam: Present: normal affect, normal mood Skin exam: Present: warm, dry, intact. Absent: cyanosis, diaphoretic Course Vital Signs 12/05/23 12/06/23 21:54 00:53 Temperature 97.4 F L 97.7 F Pulse Rate 112 H 90 Respiratory 18 17 Rate Blood Pressure 185/77 199/100 O2 Sat by Pulse 97 99 Oximetry Medical Decision Making - Medical Decision Making Was pt. sent in by a medical professional or institution (, PA, TEACHER VISUALLY IMPAIRED, urgent care, hospital, or senior living...) When possible be specific @ -No Did you speak to anyone other than the patient for history (EMS, parent, family, police, friend...)? What history was obtained from this source @ -Patient's daughter] Did you review nursing and triage notes (agree or disagree)? Why? @ -I reviewed and agree with nursing and triage notes Were old charts reviewed (outside hosp., previous admission, EMS record, old EKG, old radiological studies, urgent care reports/EKG's, senior living records)? Report findings @ -No old charts were reviewed Differential Diagnosis (chest pain, altered mental status, abdominal pain women, abdominal pain men, vaginal bleeding, weakness, fever, dyspnea, syncope, headache, dizziness, GI bleed, back pain, seizure, CVA, palpatations, mental health, musculoskeletal)? @ -Differential Fever: Pneumonia, viral URI, endocarditis, myocarditis, pericarditis, otitis, sinusitis, peritonsillar Abscess, retropharyngeal Abscess, epiglottitis, deepak tonitis, appendicitis, Debbie cystitis, diverticulitis, hepatitis, colitis, UTI, PID, TOA, pyelonephritis, prostatitis, epididymitis, meningitis, encephalitis, pulmonary embolism, CVA, thyroid storm, pancreatitis, adrenal crisis, cavernous sinus thrombosis, this is not meant to be an all-inclusive list. EKG interpreted by me (3pts min.). @ -[EKG: Sinus rhythm rate of 86, OR interval 158, QRS duration 104, QTc [address] segment changes. X-rays interpreted by me (1pt min.). @Chest x-ray showing increased pulmonary vascular congestion CT interpreted by me (1pt min.). @ -None done U/S interpreted by me (1pt. min.). @ -None done What testing was considered but not performed or refused? (CT, X-rays, U/S, labs)? Why? @ -None What meds were considered but not given or refused? Why? @ -None Did you discuss the management of the patient with other professionals (professionals i.e. Dr., PA, TEACHER VISUALLY IMPAIRED, lab, RT, psych nurse, nephrology social worker, chemical processor, teacher, affirmative action officer, bilingual case manager)? Give summary @ -No Was smoking cessation discussed for >3mins.? @ -No Was critical care preformed (if so, how long)? @ -No Were there social determinants of health that impacted care today? How? (Homelessness, low income, unemployed, alcoholism, drug addiction, transportation, low edu. Level, literacy, decrease access to med. care, shelter, rehab)? @ -No Was there de-escalation of care discussed even if they declined (Discuss DNR or withdrawal of care, Hospice)? DNR status @ -No What co-morbidities impacted this encounter? (DM, HTN, Smoking, COPD, CAD, Cancer, CVA, ARF, Chemo, Hep., AIDS, mental health diagnosis, sleep apnea, morbid obesity)? @Chronic kidney disease, diabetes, hypertension Was patient admitted / discharged? Hospital course, mention meds given and route, prescriptions, significant lab abnormalities, going to OR and other pertinent info. @ -[78-year-old male with nonproductive cough, mild dyspnea, upper back discomfort. Patient does have bilateral edema. He has been out of his clonidine for the past several days and is hypertensive upon arrival. Chest x- ray does show pulmonary vascular congestion. He is not prescribed Lasix normally, given a dose in the emergency department as well as a dose of his clonidine. CBC is unremarkable. CMP shows elevation in his creatinine above baseline. Patient will be admitted to internal medicine for IV diuresis, cardiology placed on consult, echo has been ordered. Undiagnosed new problem with uncertain prognosis? @ -No Drug Therapy requiring intensive monitoring for toxicity (Heparin, Nitro, Insulin, Cardizem)? @ -No Were any procedures done? @ -No Diagnosis/symptom? @ -CHF, fluid overload, Acute, or Chronic, or Acute on Chronic? @ -Acute Uncomplicated (without systemic symptoms) or Complicated (systemic symptoms)? @ -Default Side effects of treatment? @ -No Exacerbation, Progression, or Severe Exacerbation? @ -No Poses a threat to life or bodily function? How? (Chest pain, [place], [place], pneumonia, PE, COPD, DKA, ARF, appy, cholecystitis, CVA, Diverticulitis, Homicidal, Suicidal, threat to staff... and all critical care pts) @ -Yes, fluid overload, CHF - Lab Data Result diagrams: 12/06/23 00:09 12/06/23 00:09 Lab Results 12/05/23 12/06/23 12/06/23 Range/Units 22:22 00:09 00:09 WBC 7.9 (3.8-10.6) k/uL RBC 4.31 (4.30-5.90) m/uL Hgb 13.2 (13.0-17.5) gm/dL Hct 40.1 (39.0-53.0) % MCV 93.0 (80.0-100.0) fL MCH 30.6 (25.0-35.0) pg MCHC 32.9 (31.0-37.0) g/dL RDW 13.9 (11.5-15.5) % Plt Count 276 (150-450) k/uL MPV 7.5 Neutrophils % 72 % Lymphocytes % 20 % Monocytes % 5 % Eosinophils % 1 % Basophils % 1 % Neutrophils # 5.7 (1.3-7.7) k/uL Lymphocytes # 1.6 (1.0-4.8) k/uL Monocytes # 0.4 (0-1.0) k/uL Eosinophils # 0.1 (0-0.7) k/uL Basophils # 0.1 (0-0.2) k/uL Sodium 137 (137-145) mmol/L Potassium 4.4 (3.5-5.1) mmol/L Chloride 110 H (98-107) mmol/L Carbon Dioxide 19 L (22-30) mmol/L Anion Gap 8 mmol/L BUN 34 H (9-20) mg/dL Creatinine 3.49 H (0.66-1.25) mg/dL Est GFR (CKD-EPI)AfAm 18 (>60 ml/min/1.73 sqM) Est GFR (CKD-EPI)NonAf 16 (>60 ml/min/1.73 sqM) Glucose 208 H (74-99) mg/dL Calcium 8.4 (8.4-10.2) mg/dL Magnesium 2.0 (1.6-2.3) mg/dL Total Bilirubin 0.5 (0.2-1.3) mg/dL AST 27 (17-59) U/L ALT 15 (4-49) U/L Alkaline Phosphatase 183 H (38-126) U/L Troponin I (0.000-0.034) ng/mL Total Protein 6.2 L (6.3-8.2) g/dL Albumin 3.4 L (3.5-5.0) g/dL Urine Color Urine Appearance (Clear) Urine pH (5.0-8.0) Ur Specific [place] (1.001-1.035) Urine Protein (Negative) Urine Glucose (UA) (Negative) Urine Ketones (Negative) Urine Blood (Negative) Urine Nitrite (Negative) Urine Bilirubin (Negative) Urine Urobilinogen (<2.0) mg/dL Ur Leukocyte Esterase (Negative) Urine RBC (0-5) /hpf Urine WBC (0-5) /hpf Ur Squamous Epith Cells (0-4) /hpf Urine Mucus (None) /hpf Influenza Type A (PCR) Not Detected (Not Detectd) Influenza Type B (PCR) Not Detected (Not Detectd) RSV (PCR) Not Detected (Not Detectd) SARS-CoV-2 (PCR) Not Detected (Not Detectd) 12/06/23 12/06/23 Range/Units 00:09 00:34 WBC (3.8-10.6) k/uL RBC (4.30-5.90) m/uL Hgb (13.0-17.5) gm/dL Hct (39.0-53.0) % MCV (80.0-100.0) fL MCH (25.0-35.0) pg MCHC (31.0-37.0) g/dL RDW (11.5-15.5) % Plt Count (150-450) k/uL MPV Neutrophils % % Lymphocytes % % Monocytes % % Eosinophils % % Basophils % % Neutrophils # (1.3-7.7) k/uL Lymphocytes # (1.0-4.8) k/uL Monocytes # (0-1.0) k/uL Eosinophils # (0-0.7) k/uL Basophils # (0-0.2) k/uL Sodium (137-145) mmol/L Potassium (3.5-5.1) mmol/L Chloride (98-107) mmol/L Carbon Dioxide (22-30) mmol/L Anion Gap mmol/L BUN (9-20) mg/dL Creatinine (0.66-1.25) mg/dL Est GFR (CKD-EPI)AfAm (>60 ml/min/1.73 sqM) Est GFR (CKD-EPI)NonAf (>60 ml/min/1.73 sqM) Glucose (74-99) mg/dL Calcium (8.4-10.2) mg/dL Magnesium (1.6-2.3) mg/dL Total Bilirubin (0.2-1.3) mg/dL AST (17-59) U/L ALT (4-49) U/L Alkaline Phosphatase (38-126) U/L Troponin I <0.012 (0.000-0.034) ng/mL Total Protein (6.3-8.2) g/dL Albumin (3.5-5.0) g/dL Urine Color Colorless Urine Appearance Clear (Clear) Urine pH 6.0 (5.0-8.0) Ur Specific [place] 1.011 (1.001-1.035) Urine Protein 3+ H (Negative) Urine Glucose (UA) 4+ H (Negative) Urine Ketones Negative (Negative) Urine Blood Trace H (Negative) Urine Nitrite Negative (Negative) Urine Bilirubin Negative (Negative) Urine Urobilinogen <2.0 (<2.0) mg/dL Ur Leukocyte Esterase Negative (Negative) Urine RBC 1 (0-5) /hpf Urine WBC 1 (0-5) /hpf Ur Squamous Epith Cells <1 (0-4) /hpf Urine Mucus Rare H (None) /hpf Influenza Type A (PCR) (Not Detectd) Influenza Type B (PCR) (Not Detectd) RSV (PCR) (Not Detectd) SARS-CoV-2 (PCR) (Not Detectd) Disposition Clinical Impression: Renal insufficiency, Hypertension, CHF (congestive heart failure) Disposition: ADMITTED IP TO THIS HOSP Condition: Stable Is patient prescribed a controlled substance at d/c from ED?: No Referrals: Dennis Santana DO [Primary Care Provider] - 1-2 days Time of Disposition: 01:53
[2023-12-06 00:17] LABS: Basophils # (A) 0.1 k/uL (0-0.2); Basophils % (A) 1 %; Eosinophils # (A) 0.1 k/uL (0-0.7); Eosinophils % (A) 1 %; HCT 40.1 % (39.0-53.0); HGB 13.2 gm/dL (13.0-17.5); Lymphocytes # (A) 1.6 k/uL (1.0-4.8); Lymphocytes % (A) 20 %; MCH 30.6 pg (25.0-35.0); MCHC 32.9 g/dL (31.0-37.0); Mean Platelet Volume 7.5; Monocytes # (A) 0.4 k/uL (0-1.0); Monocytes % (A) 5 %; Neutrophils # (A) 5.7 k/uL (1.3-7.7); Neutrophils % (A) 72 %; Platelet Count 276 k/uL (150-450); RBC 4.31 m/uL (4.30-5.90); RDW 13.9 % (11.5-15.5); WBC 7.9 k/uL (3.8-10.6)
[2023-12-06 00:38] LABS: ALT 15 U/L (4-49); AST 27 U/L (17-59); African American GFR (CKD) 18 (>60 ml/min/1.73 sqM); Albumin 3.4 g/dL (3.5-5.0); Alkaline Phosphatase 183 U/L (38-126); Anion Gap 8 mmol/L; Blood Urea Nitrogen 34 mg/dL (9-20); Calcium 8.4 mg/dL (8.4-10.2); Carbon Dioxide 19 mmol/L (22-30); Chloride 110 mmol/L (98-107); Glucose 208 mg/dL (74-99); Non-African American GFR(CKD) 16 (>60 ml/min/1.73 sqM); Potassium 4.4 mmol/L (3.5-5.1); Sodium 137 mmol/L (137-145); Total Bilirubin 0.5 mg/dL (0.2-1.3); Total Protein 6.2 g/dL (6.3-8.2)
--- NOTE | 2023-12-06 00:49 | XR ---
EXAM: XR Chest, 2 Views CLINICAL HISTORY: ITS.REASON XR Reason: cough TECHNIQUE: Frontal and lateral views of the chest. COMPARISON: No relevant prior studies available. FINDINGS: Lungs: Mild pulmonary vascular congestion. No consolidation. Pleural space: Unremarkable. No pneumothorax. Heart: Cardiomegaly. Mediastinum: Unremarkable. Normal mediastinal contour. Bones/joints: Unremarkable. No acute fracture. IMPRESSION: Mild pulmonary vascular congestion. No consolidation.
[2023-12-06 01:12] LABS: Appearance,Urine Clear (Clear); Bilirubin,Urine Negative (Negative); Blood,Urine Trace (Negative); Color,Urine Colorless; Glucose,Urine (UA) 4+ (Negative); Ketones,Urine Negative (Negative); Leukocyte Esterase,Urine Negative (Negative); Mucus,Urine Rare /hpf; Nitrite,Urine Negative (Negative); Protein,Urine 3+ (Negative); RBC,Urine 1 /hpf (0-5); Specific Gravity,Urine 1.011 (1.001-1.035); Squamous Epithelial Cell,Urine <1 /hpf (0-4); Urobilinogen,Urine <2.0 mg/dL (<2.0); WBC,Urine 1 /hpf (0-5)
[2023-12-06] MEDS: FUROSEMIDE 10 MG/ML 4 ML VIAL IV STA (01:41)
[2023-12-06] MEDS ORDERED: NALOXONE 0.4 MG/ML 1 ML VIAL IV PRN (01:48)
[2023-12-06] MEDS: cloNIDine HCL 0.2 MG TAB PO SCH (01:57)
[2023-12-06] MEDS: FUROSEMIDE 10 MG/ML 2 ML VIAL IV SCH (09:47)
[2023-12-06] MEDS: ISOSORBIDE MONONITRATE ER 60 MG TAB.ER.24H PO SCH (09:48)
[2023-12-06] MEDS ORDERED: DEXTROSE 50% SYRINGE 50 ML IVP PRN ×2 (11:11)
[2023-12-06 11:47] LABS: Glucose,Whole Blood 244 mg/dL (70-110)
[2023-12-06] MEDS: INSULIN DETEMIR (LEVEMIR) 100 UNIT/ML SYR SQ SCH (12:05)
[2023-12-06] MEDS: PANTOPRAZOLE 40 MG TABLET PO SCH (12:06)
[2023-12-06] MEDS: DAPAGLIFLOZIN PROPANEDIOL 10 MG TABLET PO SCH (12:06)
[2023-12-06] MEDS: CLOPIDOGREL 75 MG TAB PO SCH (12:06)
[2023-12-06] MEDS: levETIRAcetam 500 MG TAB PO SCH (12:06)
[2023-12-06] MEDS: INSULIN ASPART (NovoLOG) 100 UNIT/ML VIAL SQ SCH ×3 (12:06→17:39)
--- NOTE | 2023-12-06 13:14 | P.CRDCN ---
History of Present Illness Consult date: 12/06/23 History of present illness: HISTORY OF PRESENTING ILLNESS Patient with prior history of hypertension dyslipidemia diabetes and CVA presented to the hospital because of back pain, difficulty breathing, congestion and shortness of breath. He was concerned that he might have flu. To get evaluated he presented to the hospital and he was told that his blood pressure has been elevated in the range of 200s. Patient reports that he has missed taking clonidine for last 2 days as he ran out of the prescription. He reports that previously checked his blood pressure 1 to 2 weeks ago and they have been running within normal ranges. Labs shows BUN 34, creatinine 3.49, baseline from last year is 2.5. 2 years ago it was 1.5. Hemoglobin 13.2, troponin 0.01 which is negative, glucose is elevated at 200, ECG shows sinus rhythm with left axis deviation Chest x-ray shows mild pulmonary congestion increased interstitial marking. BP 213/88 this morning, pulse 79 REVIEW OF SYSTEMS 14 point review of system is negative except what is mentioned above in HPI. PHYSICAL EXAMINATION Vital signs reviewed. Neck: Brisk carotid upstroke, no jugular venous distention. Lungs: Clear to auscultation. Heart: Regular rate and rhythm, S1-S2, no S3, no murmur or rub. Abdomen: Soft nontender, positive bowel sounds. Extremities: No edema, intact distal pulses. Neuro: Alert, oritented, no focal deficits. Detailed neuro exam was not performed. ASSESSMENT Hypertensive urgency, 220/120 mmHg, likely due to missed clonidine dosing for 2 days Mild HFpEF exacerbation with pulmonary congestion on CXR, but 1 dose of IV Lasix in the ER. Prior history of CVA Hypertension Dyslipidemia Type 2 diabetes CAD moderate disease Loop recorder in place with no evidence of A-fib previously. Prior cardiac testing Echo 2021 EF 55 to 60%, mild MR mild AR Cath 2018 LAD 40%, 50%, circumflex 50% PLAN Discontinue clonidine. Patient has not been taking it 2 days prior to the hospitalization therefore it is a a good opportunity to wean him off. There is no particular clear reasons why he is on clonidine. Discontinue losartan in view of worsening kidney function. Increase Procardia XL to 120 mg daily. Start Coreg 6.25 mg twice daily. Next medication to add will be hydralazine. Obtain echocardiogram. Continue Plavix and statin for prior history of CVA Loop recorder interrogation Patient is complaining of back pain. Patient's pulses in bilateral upper extremities is present and is symmetrical. Ideally I would like to obtain a CT angio for the chest but because of worsening kidney function I am holding it back. Patient is back pain and chest pain has been resolved. If echo shows any findings of dissection or if kidney function improves ideally we should obtain a CTA chest to rule out any aortic dissection. Javon Abel MD, FACC, RPVI Thank you for allowing [facility] to participate in this patient's care. Feel free to reach out in case of any followup questions. Past Medical History Past Medical History: Heart Failure, CVA/TIA, Diabetes Mellitus, Hyperlipidemia, Hypertension, Liver Disease, Renal Disease, Sleep Apnea/CPAP/BIPAP Additional Past Medical History / Comment(s): ARTHRITIS, kidney stones, possible dementia, kidney failure, neuropathy alia legs, carpal tunnel. CVA-jul 17 balance issues,speech impairment,vision impairment, receives injections to eyes r/t bleeding ,COVID 07/28/2022 History of Any Multi-Drug Resistant Organisms: None Reported Past Surgical History: Back Surgery Additional Past Surgical History / Comment(s): MASS REMOVED FROM BACK OF HEAD, eye surgery, Past Anesthesia/Blood Transfusion Reactions: No Reported Reaction Past Psychological History: Depression Smoking Status: Never smoker Past Alcohol Use History: None Reported Past Drug Use History: None Reported - Past Family History Father Family Medical History: Diabetes Mellitus Mother Family Medical History: Diabetes Mellitus Brother(s) Family Medical History: Cancer Sister(s) Family Medical History: Cancer Medications and Allergies Home Medications Medication Instructions Recorded Confirmed Type DULoxetine HCL [Cymbalta] 30 mg PO HS 03/13/16 12/06/23 History Isosorbide Mononitrate ER [Imdur] 60 mg PO DAILY 03/13/16 12/06/23 History Omeprazole 20 mg PO DAILY 07/08/20 12/06/23 History Clopidogrel [Plavix] 75 mg PO DAILY #30 tab 07/11/20 12/06/23 Rx levETIRAcetam [Keppra] 500 mg PO BID 12/11/20 12/06/23 History Atorvastatin [Lipitor] 20 mg PO HS 07/18/21 12/06/23 History Insulin Aspart [NovoLOG Flexpen] 10 units SQ AC-BID@0800,1200 07/28/21 12/06/23 History Insulin Aspart [NovoLOG Flexpen] 12 units SQ W/SUPPER 07/28/21 12/06/23 History Losartan [Cozaar] 25 mg PO HS 07/28/21 12/06/23 History Dapagliflozin Propanediol [Farxiga] 10 mg PO DAILY 11/10/21 12/06/23 History Vitamin E 400 unit PO DAILY 11/10/21 12/06/23 History Insulin Glargine,Hum.rec.anlog 30 units SQ DAILY #0 11/12/21 12/06/23 Rx [Lantus Solostar Pen] cloNIDine HCL [Catapres] 0.2 mg PO BID #60 tab 11/12/21 12/06/23 Rx Insulin Aspart [NovoLOG Flexpen] See Protocol SQ TID-W/MEALS PRN 02/02/22 12/06/23 History Loratadine 10 mg PO DAILY 02/02/22 12/06/23 History NIFEdipine XL [Procardia XL] 60 mg PO DAILY 30 Days #30 tab 02/03/22 12/06/23 Rx Allergies Allergy/AdvReac Type Severity Reaction Status Date / Time No Known Allergies Allergy Verified 12/06/23 12:23 Physical Exam Vitals: Vital Signs Temp Pulse Pulse Resp BP BP Pulse Ox 12/06/23 08:00 18 12/06/23 07:37 97.5 F L 84 14 213/88 97 12/06/23 05:47 79 18 176/89 98 12/06/23 04:30 78 18 182/88 100 12/06/23 04:05 88 18 170/75 99 12/06/23 01:30 87 18 201/112 98 12/06/23 00:53 97.7 F 90 17 199/100 99 12/05/23 21:54 97.4 F L 112 H 18 185/77 97 Intake and Output 12/05/23 12/06/23 12/06/23 21:59 06:59 14:59 Other: # Voids Weight 90.718 kg Results 12/06/23 00:09 12/06/23 00:09 Cardiac Enzymes 12/06/23 12/06/23 Range/Units 00:09 00:09 AST 27 (17-59) U/L Troponin I <0.012 (0.000-0.034) ng/mL CBC 12/06/23 Range/Units 00:09 WBC 7.9 (3.8-10.6) k/uL RBC 4.31 (4.30-5.90) m/uL Hgb 13.2 (13.0-17.5) gm/dL Hct 40.1 (39.0-53.0) % Plt Count 276 (150-450) k/uL Comprehensive Metabolic Panel 12/06/23 Range/Units 00:09 Sodium 137 (137-145) mmol/L Potassium 4.4 (3.5-5.1) mmol/L Chloride 110 H (98-107) mmol/L Carbon Dioxide 19 L (22-30) mmol/L BUN 34 H (9-20) mg/dL Creatinine 3.49 H (0.66-1.25) mg/dL Glucose 208 H (74-99) mg/dL Calcium 8.4 (8.4-10.2) mg/dL AST 27 (17-59) U/L ALT 15 (4-49) U/L Alkaline Phosphatase 183 H (38-126) U/L Total Protein 6.2 L (6.3-8.2) g/dL Albumin 3.4 L (3.5-5.0) g/dL Current Medications Generic Name Dose Route Start Last Admin Trade Name Freq PRN Reason Stop Dose Admin Acetaminophen 650 mg 12/06/23 11:07 Acetaminophen Tab 325 Mg Tab PO Q6HR PRN Fever and/ or Pain Atorvastatin Calcium 20 mg 12/06/23 21:00 Atorvastatin 20 Mg Tab PO HS [facility] Carvedilol 6.25 mg 12/06/23 12:30 Carvedilol 6.25 Mg Tab PO BID-W/MEALS [facility] Clopidogrel Bisulfate 75 mg 12/06/23 11:15 12/06/23 12:06 Clopidogrel 75 Mg Tab PO 75 mg DAILY [facility] Administration Dextrose/Water 25 ml 12/06/23 11:11 Dextrose 50% Syringe 50 Ml IVP PER PROTOCOL PRN Hypoglycemia Protocol Dextrose/Water 50 ml 12/06/23 11:11 Dextrose 50% Syringe 50 Ml IVP PER PROTOCOL PRN Hypoglycemia Protocol Duloxetine HCl 30 mg 12/06/23 21:00 Duloxetine Hcl 30 Mg Capsule. PO HS [facility] Furosemide 20 mg 12/06/23 09:00 12/06/23 09:47 Furosemide 10 Mg/Ml 2 Ml Vial IV 20 mg Q12HR BETSY Administration Insulin Aspart 12 unit 12/06/23 17:30 Insulin Aspart (Novolog) 100 Unit/Ml Vial SQ AC-SUPPER BETSY Insulin Aspart 0 unit 12/06/23 12:30 12/06/23 12:06 Insulin Aspart (Novolog) 100 Unit/Ml Vial SQ 4 unit AC-TID BETSY Administration Protocol Insulin Aspart 10 unit 12/07/23 08:00 Insulin Aspart (Novolog) 100 Unit/Ml Vial SQ AC-BID@0800,1200 [facility] Insulin Detemir 24 unit 12/06/23 12:00 12/06/23 12:05 Insulin Detemir (Levemir) 100 Unit/Ml Syr SQ 24 unit DAILY@0700 BETSY Administration Isosorbide Mononitrate 60 mg 12/06/23 09:00 12/06/23 09:48 Isosorbide Mononitrate Er 60 Mg Tab.Er.24h PO 60 mg DAILY BETSY Administration Levetiracetam 500 mg 12/06/23 11:15 12/06/23 12:06 Levetiracetam 500 Mg Tab PO 500 mg BID BETSY Administration Naloxone HCl 0.2 mg 12/06/23 01:48 Naloxone 0.4 Mg/Ml 1 Ml Vial IV Q2M PRN Opioid Reversal Nifedipine 120 mg 12/07/23 09:00 Nifedipine Xl 60 Mg Tab.Er.24 PO DAILY BETSY Pantoprazole Sodium 40 mg 12/06/23 11:15 12/06/23 12:06 Pantoprazole 40 Mg Tablet PO 40 mg DAILY BETSY Administration Vitamin E 400 unit 12/07/23 09:00 Vitamin E (Dl,Tocopheryl Acet) 400 Unit (180 Mg) Cap PO DAILY BETSY Intake and Output 12/05/23 12/06/23 12/06/23 21:59 06:59 14:59 Other: # Voids Weight 90.718 kg Patient Weight 12/07/23 06:59 Weight 90.718 kg 12/06/23 00:09 12/06/23 00:09
[2023-12-06] MEDS: carvediloL 6.25 MG TAB PO SCH (13:47)
[2023-12-06] MEDS: INSULIN ASPART (NovoLOG) 100 UNIT/ML VIAL SQ ONE (13:48)
--- NOTE | 2023-12-06 14:59 | P.HPIM ---
History of Present Illness H&P Date: 12/06/23 Chief Complaint: Not feeling well This is a 78-year-old patient of Dr. Santana. Chronic stable medical conditions include hyperlipidemia, diabetes, obstructive sleep apnea, osteoarthritis, kidney stones, cognitive impairment-dementia. 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 Had a loop recorder seizures. Patient now presents accompanied by his and daughter. Yesterday patient started off with a cough. Aching body. [place] hot. Decreased appetite. This has been going on for about 2 days. Also complained of some pain between the shoulder blade. Tired. Patient himself is not a good historian. Review of systems: GEN.: Tired EYES: None HEENT: None NECK: None RESPIRATORY: None CARDIOVASCULAR: As above GASTROINTESTINAL: None GENITOURINARY: None MUSCULOSKELETAL: None LYMPHATICS: None HEMATOLOGICAL: None PSYCHIATRY: forgetful NEUROLOGICAL: weakness on the right side Past medical history to include: Diabetes, hyperlipidemia, hypertension, obstructive sleep apnea, osteoarthritis, kidney stones, cognitive impairment, stroke hypertension with right-sided weakness, depression, seizure Social history: No history of smoking or alcohol. Lives with his . Physical examination: VITAL SIGNS: 97.5, 84, 14, 2 one 3 x 88, 97% room air this morning GENERAL: BMI 30.4, laying in bed, awake, tired EYES: Pupils equal. Conjunctiva normal. HEENT: External appearance of nose and ears normal, oral cavity grossly normal. NECK: JVD not raised; masses not palpable. HEART: First and second heart sounds are normal; no edema. LUNGS: Respiratory rate normal; clear to auscultation. ABDOMEN: Soft, upper abdomen tenderness no guarding rigidity, liver spleen not palpable, no masses palpable. PSYCH: answering simple questions NEUROLOGICAL: [Cranial nerves grossly intact; no facial asymmetry, power 4/5 on the right side LYMPHATICS: No lymph nodes palpable in the axilla and neck INVESTIGATIONS, reviewed in the clinical context: December 06, 2023: White count 7.9 hemoglobin 13.2 platelet 276 sodium 137 potas sium 4.4 BUN 34 creatinine 3.49 Influenza type A, type B, RSV, COVID-19: Not detected EKG tracing personally reviewed by me-normal sinus rhythm. Rate 86. Chest x-ray film personally reviewed by me-some venous prominence Previous labs: Creatinine 2.46 on January 2023 Assessment and plan: -Possible viral infection with systemic symptoms. Including cough. 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 On Levemir, NovoLog Follow Accu-Cheks closely. -Depression otherwise specified Cymbalta -Hyperlipidemia On Lipitor -Chronic kidney disease stage 4 from hypertensive nephrosclerosis and diabetic nephropathy Follow renal function. -Full code Consultation made to nephrology. Cardiology. Given the complexity and severity of patient's condition expect the patient to be in the hospital at least for 2 overnights Past Medical History Past Medical History: CVA/TIA, Diabetes Mellitus, Hyperlipidemia, Hypertension, Liver Disease, Renal Disease, Sleep Apnea/CPAP/BIPAP Additional Past Medical History / Comment(s): ARTHRITIS, kidney stones, possible dementia, kidney failure, neuropathy alia legs, carpal tunnel. CVA-jul 17 balance issues,speech impairment,vision impairment, receives injections to eyes r/t bleeding ,COVID 07/28/2022 History of Any Multi-Drug Resistant Organisms: None Reported Past Surgical History: Back Surgery Additional Past Surgical History / Comment(s): MASS REMOVED FROM BACK OF HEAD, eye surgery, Past Anesthesia/Blood Transfusion Reactions: No Reported Reaction Past Psychological History: Depression Smoking Status: Never smoker Past Alcohol Use History: None Reported Past Drug Use History: None Reported - Past Family History Father Family Medical History: Diabetes Mellitus Mother Family Medical History: Diabetes Mellitus Brother(s) Family Medical History: Cancer Sister(s) Family Medical History: Cancer Medications and Allergies Home Medications Medication Instructions Recorded Confirmed Type DULoxetine HCL [Cymbalta] 30 mg PO HS 03/13/16 12/06/23 History Isosorbide Mononitrate ER [Imdur] 60 mg PO DAILY 03/13/16 12/06/23 History Omeprazole 20 mg PO DAILY 07/08/20 12/06/23 History Clopidogrel [Plavix] 75 mg PO DAILY #30 tab 07/11/20 12/06/23 Rx levETIRAcetam [Keppra] 500 mg PO BID 12/11/20 12/06/23 History Atorvastatin [Lipitor] 20 mg PO HS 07/18/21 12/06/23 History Insulin Aspart [NovoLOG Flexpen] 10 units SQ AC-BID@0800,1200 07/28/21 12/06/23 History Insulin Aspart [NovoLOG Flexpen] 12 units SQ W/SUPPER 07/28/21 12/06/23 History Losartan [Cozaar] 25 mg PO HS 07/28/21 12/06/23 History Dapagliflozin Propanediol [Farxiga] 10 mg PO DAILY 11/10/21 12/06/23 History Vitamin E 400 unit PO DAILY 11/10/21 12/06/23 History Insulin Glargine,Hum.rec.anlog 30 units SQ DAILY #0 11/12/21 12/06/23 Rx [Lantus Solostar Pen] cloNIDine HCL [Catapres] 0.2 mg PO BID #60 tab 11/12/21 12/06/23 Rx Insulin Aspart [NovoLOG Flexpen] See Protocol SQ TID-W/MEALS PRN 02/02/22 12/06/23 History Loratadine 10 mg PO DAILY 02/02/22 12/06/23 History NIFEdipine XL [Procardia XL] 60 mg PO DAILY 30 Days #30 tab 02/03/22 12/06/23 Rx Allergies Allergy/AdvReac Type Severity Reaction Status Date / Time No Known Allergies Allergy Verified 12/06/23 12:23 Physical Exam Vitals: Vital Signs Temp Pulse Pulse Resp BP BP Pulse Ox 12/06/23 07:37 97.5 F L 84 14 213/88 97 12/06/23 05:47 79 18 176/89 98 12/06/23 04:30 78 18 182/88 100 12/06/23 04:05 88 18 170/75 99 12/06/23 01:30 87 18 201/112 98 12/06/23 00:53 97.7 F 90 17 199/100 99 12/05/23 21:54 97.4 F L 112 H 18 185/77 97 Intake and Output 12/05/23 12/06/23 12/06/23 21:59 06:59 14:59 Other: # Voids Weight Results CBC & Chem 7: 12/06/23 00:09 12/06/23 00:09 Labs: Abnormal Lab Results - Last 24 Hours (Table) 12/06/23 12/06/23 Range/Units 00:09 00:34 Chloride 110 H (98-107) mmol/L Carbon Dioxide 19 L (22-30) mmol/L BUN 34 H (9-20) mg/dL Creatinine 3.49 H (0.66-1.25) mg/dL Glucose 208 H (74-99) mg/dL Alkaline Phosphatase 183 H (38-126) U/L Total Protein 6.2 L (6.3-8.2) g/dL Albumin 3.4 L (3.5-5.0) g/dL Urine Protein 3+ H (Negative) Urine Glucose (UA) 4+ H (Negative) Urine Blood Trace H (Negative) Urine Mucus Rare H (None) /hpf
--- NOTE | 2023-12-06 15:03 | US ---
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 Right Kidney: Anechoic area seen lower pole: 1.1 x 1.0 x 1.0 cm. Left Kidney: Anechoic area seen at mid: 2.3 x 1.6 x 1.6 cm. Both of these likely represent small cortical cysts. No hydronephrosis on either side. Bladder: Appears wnl Bilateral Jets seen: Yes IMPRESSION: 1. Limited detailed parenchymal assessment of the kidneys. Suspect a couple renal cysts measuring up to 2.3 cm. Follow-up in 6 months to ensure stability. 2. No hydronephrosis is seen.
[2023-12-06 17:10] LABS: Glucose,Whole Blood 223 mg/dL (70-110)
[2023-12-06] MEDS: ATORVASTATIN 20 MG TAB PO SCH (20:57)
[2023-12-06] MEDS: DULoxetine HCL 30 MG CAPSULE.DR PO SCH (20:57)
[2023-12-06 21:00] LABS: Glucose,Whole Blood 79 mg/dL (70-110)
[2023-12-06] MEDS ORDERED: cloNIDine HCL 0.1 MG TAB PO SCH (21:00)
[2023-12-06] MEDS ORDERED: LOSARTAN 25 MG TAB PO SCH (21:00)
[2023-12-06] MEDS ORDERED: LOSARTAN 25 MG TAB PO ONE (21:00)
[2023-12-07 02:32] LABS: Glucose,Whole Blood 81 mg/dL (70-110)
[2023-12-07 05:39] LABS: Glucose,Whole Blood 188 mg/dL (70-110)
--- NOTE | 2023-12-07 08:17 | P.PN ---
Subjective Progress Note Date: 12/07/23 Principal diagnosis: HTN The patient is a pleasant 78-year-old gentleman with hypertension and dyslipidemia and history of stroke and multiple comorbid conditions including chronic kidney disease was admitted to the hospital with hypertension emergency complicated by heart failure. December 07, 2023 The patient was seen and evaluated earlier today. He is asymptomatic from the c ardiovascular standpoint of view. The blood pressure remains elevated and consistent with a stage II hypertension. I am going to increase the dose of carvedilol to 12.5 mg p.o. twice daily. Beside that the echo still pending. He reports no pain in the chest and no shortness of breath at this point. Kidney function is abnormal and he is in acute on chronic renal failure at this point. That to be managed by the internal medicine team. Examination is remarkable for regular rhythm with a systolic murmur at the right upper sternal border with clear breathing sounds bilaterally and no lower extremities edema noted Assessment Hypertension emergency Renal failure History of stroke Plan Continue the current medical regimen Increase the dose of carvedilol Follow-up on the echocardiogram Objective - Vital Signs Vital signs: Vital Signs Temp 98.1 F 12/07/23 02:00 Pulse 86 12/07/23 02:00 Resp 16 12/07/23 02:00 BP 165/64 12/07/23 02:00 Pulse Ox 96 12/07/23 02:00 FiO2 Intake & Output 12/06/23 12/07/23 12/07/23 18:59 06:59 18:59 Intake Total 350 Output Total 400 Balance -50 Weight 90.718 kg 89.6 kg Intake: Oral 350 Output: Urine 400 Other: Voiding Method Urinal # Voids 2 - Labs CBC & Chem 7: 12/06/23 00:09 12/06/23 00:09 Labs: Abnormal Lab Results - Last 24 Hours (Table) 12/06/23 12/06/23 12/07/23 Range/Units 11:45 17:08 05:37 POC Glucose (mg/dL) 244 H 223 H 188 H (70-110) mg/dL
[2023-12-07 09:29] LABS: Glucose,Whole Blood 233 mg/dL (70-110)
[2023-12-07] MEDS: INSULIN ASPART (NovoLOG) 100 UNIT/ML VIAL SQ SCH (09:31)
[2023-12-07] MEDS: carvediloL 6.25 MG TAB PO STA (09:32)
[2023-12-07] MEDS: VITAMIN E (DL,TOCOPHERYL ACET) 400 UNIT (180 MG) CAP PO SCH (09:32)
--- NOTE | 2023-12-07 12:37 | P.NPCON ---
History of Present Illness - Reason for Consult acute renal failure, chronic renal failure - History of Present Illness Reason for consultation: Acute kidney injury on chronic kidney disease History of present illness: Patient is a 78-year-old male seen in renal consultation for acute kidney injury on chronic kidney disease. Patient has chronic kidney disease stage IIIb/IV with creatinine in July 2022 at 2.4 in December 2022 at 2.1. It was noted to be at 2.46 on February 12, 2023. This admission creatinine was 3.49. Labs from today are pending. Patient came to the hospital due to back pain mostly between shoulder blades. He was also short of breath. Patient states he has high blood pressure and stopped taking clonidine on Thursday due to running out of medication. Patient states his blood pressure got into the systolic 170s. He denies vomiting. He did have diarrhea for 1 day prior to admission. Patient also states he was edematous but is now improved. He is currently receiving IV Lasix 20 mg twice daily. He denies gross hematuria or dysuria. Denies chest pain. Patient states he currently has a loop recorder. Patient has longstanding history of diabetes. Also has history of CVA. Kidney ultrasound showed no evidence of hydronephrosis. UA shows 3+ protein and 4+ glucose wit hout any RBCs. Blood pressure is now better controlled. This morning blood pressure was 146/80. He denies use of nonsteroidals. Vital signs are stable. General: No acute distress. HEENT: Head exam is unremarkable. LUNGS: No audible rhonchi or wheezes. HEART: Rate and Rhythm are regular. ABDOMEN: Nontender. EXTREMITITES: 1+ edema. Past Medical History Past Medical History: CVA/TIA, Diabetes Mellitus, Hyperlipidemia, Hypertension, Liver Disease, Renal Disease, Sleep Apnea/CPAP/BIPAP Additional Past Medical History / Comment(s): ARTHRITIS, kidney stones, possible dementia, kidney failure, neuropathy alia legs, carpal tunnel. CVA-jul 17 balance issues,speech impairment,vision impairment, receives injections to eyes r/t bleeding ,COVID 07/28/2022 History of Any Multi-Drug Resistant Organisms: None Reported Past Surgical History: Back Surgery Additional Past Surgical History / Comment(s): MASS REMOVED FROM BACK OF HEAD, eye surgery, Past Anesthesia/Blood Transfusion Reactions: No Reported Reaction Past Psychological History: Depression Smoking Status: Never smoker Past Alcohol Use History: None Reported Past Drug Use History: None Reported - Past Family History Father Family Medical History: Diabetes Mellitus Mother Family Medical History: Diabetes Mellitus Brother(s) Family Medical History: Cancer Sister(s) Family Medical History: Cancer Medications and Allergies Home Medications Medication Instructions Recorded Confirmed Type DULoxetine HCL [Cymbalta] 30 mg PO HS 03/13/16 12/06/23 History Isosorbide Mononitrate ER [Imdur] 60 mg PO DAILY 03/13/16 12/06/23 History Omeprazole 20 mg PO DAILY 07/08/20 12/06/23 History Clopidogrel [Plavix] 75 mg PO DAILY #30 tab 07/11/20 12/06/23 Rx levETIRAcetam [Keppra] 500 mg PO BID 12/11/20 12/06/23 History Atorvastatin [Lipitor] 20 mg PO HS 07/18/21 12/06/23 History Insulin Aspart [NovoLOG Flexpen] 10 units SQ AC-BID@0800,1200 07/28/21 12/06/23 History Insulin Aspart [NovoLOG Flexpen] 12 units SQ W/SUPPER 07/28/21 12/06/23 History Losartan [Cozaar] 25 mg PO HS 07/28/21 12/06/23 History Dapagliflozin Propanediol [Farxiga] 10 mg PO DAILY 11/10/21 12/06/23 History Vitamin E 400 unit PO DAILY 11/10/21 12/06/23 History Insulin Glargine,Hum.rec.anlog 30 units SQ DAILY #0 11/12/21 12/06/23 Rx [Lantus Solostar Pen] cloNIDine HCL [Catapres] 0.2 mg PO BID #60 tab 11/12/21 12/06/23 Rx Insulin Aspart [NovoLOG Flexpen] See Protocol SQ TID-W/MEALS PRN 02/02/22 12/06/23 History Loratadine 10 mg PO DAILY 02/02/22 12/06/23 History NIFEdipine XL [Procardia XL] 60 mg PO DAILY 30 Days #30 tab 02/03/22 12/06/23 Rx Allergies Allergy/AdvReac Type Severity Reaction Status Date / Time No Known Allergies Allergy Verified 12/06/23 12:23 Physical Exam Vitals: Vital Signs Temp Pulse Resp BP BP Pulse Ox 12/07/23 07:00 98.3 F 87 16 146/80 98 12/07/23 02:00 98.1 F 86 16 165/64 96 12/06/23 19:52 98.4 F 74 16 139/64 98 12/06/23 14:15 97.5 F L 84 15 174/84 98 12/06/23 14:00 16 12/06/23 13:50 84 174/84 Intake and Output 12/06/23 12/07/23 12/07/23 22:59 06:59 14:59 Intake Total 350 118 Output Total 400 600 Balance -50 -482 Intake: Oral 350 118 Output: Urine 400 600 Other: Voiding Method Toilet Urinal Urinal Weight 89.6 kg Results - Lab Results Most recent lab results Calcium 8.4 mg/dL (8.4-10.2) 12/06/23 00:09 Magnesium 2.0 mg/dL (1.6-2.3) 12/06/23 00:09 12/06/23 00:09 12/06/23 00:09 Assessment and Plan Plan: Assessment: 1. Acute kidney injury secondary to hemodynamic ATN. Creatinine 3.46 on a dmission. No hydronephrosis noted on ultrasound. UA shows 3+ protein and 4+ glucose without any RBCs. 2. 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 Recent creatinines in the range of 2.1-2.4. 3. Hypertensive emergency. Improved. 4. Metabolic acidosis secondary to acute kidney injury. 5. Diabetes mellitus. 6. History of CVA. 7. Fluid overload. Plan: Change Lasix to 40 mg IV once daily. Check bladder scan to rule out urinary retention. Follow-up echocardiogram. Add oral bicarb. Coreg dose increased by cardiology. Continue to hold losartan for now. Also hold SGLT2 inhibitors as GFR less than 20. Continue to monitor renal function and urine output. Advised to follow-up outpatient 1 week postdischarge to establish CKD care - last seen in office in 2019. Thank you for the consultation. I will continue to follow the patient with you during his hospital stay.
[2023-12-07 12:55] LABS: Glucose,Whole Blood 197 mg/dL (70-110)
[2023-12-07] MEDS: SODIUM BICARBONATE TAB 650 MG TAB PO SCH (13:04)
--- NOTE | 2023-12-07 13:18 | CA ---
Transthoracic Echo Report Name: Edgardo Alvarez Age: 78 Gender: M : 1945 Exam Date: 12/07/2023 12:06 Exam Location: [facility] Ht (in): 68 Wt (lb): 200 Ordering Physician: Edmundo Partida MD Attending/Referring Phys: [id number], Helga Baggage Checker Jeanne Snow RCS Procedure CPT: Indications: chf Cardiac Hx: Technical Quality: Technically difficult study Contrast 1: Definity Total Dose (mL): 2 Contrast 2: Total Dose (mL): MEASUREMENTS (Male / Female) Normal Values 2D ECHO LVOT Diameter 1.9 cm LV Diastolic Volume MOD BP 69.6 cm??? 67 - 155 / 56 - 104 cm??? LV Systolic Volume MOD BP 18.4 cm??? 22 - 58 / 19 - 49 cm??? LV Ejection Fraction MOD BP 73.6 % >= 55 % LV Cardiac Index MOD BP 1818.3 cm???/min???m??? LV Diastolic Volume MOD 4C 82.8 cm??? LV Systolic Volume MOD 4C 24.3 cm??? LV Ejection Fraction MOD 4C 70.7 % LV Cardiac Index MOD 4C 2076.6 cm???/min???m??? LV Diastolic Length 4C 9.0 cm LV Systolic Length 4C 7.0 cm LV Diastolic Volume MOD 2C 51.6 cm??? LV Systolic Volume MOD 2C 12.2 cm??? LV Ejection Fraction MOD 2C 76.3 % LV Cardiac Index MOD 2C 1398.4 cm???/min???m??? LV Diastolic Length 2C 7.9 cm LV Systolic Length 2C 6.0 cm LA Volume 38.8 cm??? 18 - 58 / 22 - 52 cm??? LA Volume Index 18.4 cm???/m??? 16 - 28 cm???/m??? Ascending Aorta Diameter 3.3 cm DOPPLER AV Peak Velocity 145.4 cm/s AV Peak Gradient 8.5 mmHg AV Mean Velocity 102.4 cm/s AV Mean Gradient 4.6 mmHg AV Velocity Time Integral 29.8 cm LVOT Peak Velocity 131.8 cm/s LVOT Peak Gradient 6.9 mmHg LVOT Velocity Time Integral 26.4 cm LVOT Stroke Volume 73.2 cm??? LVOT Stroke Volume Index 35.8 ml/m??? LVOT Cardiac Index 2597.9 cm???/min???m??? AV Area Cont Eq vti 2.5 cm??? AV Area Cont Eq pk 2.5 cm??? Mitral E Point Velocity 65.0 cm/s Mitral A Point Velocity 90.5 cm/s Mitral E to A Ratio 0.7 MV Deceleration Time 255.2 ms MV E' Velocity 5.1 cm/s Mitral E to MV E' Ratio 12.7 FINDINGS Left Ventricle Left ventricular ejection fraction is estimated at 65-70 %. Left ventricular wall thickness normal. Left ventricular cavity size normal. No obvious regional wall motion abnormalities. Right Ventricle Normal right ventricular size and function. Unable to estimate right ventricular systolic pressure. Right Atrium Normal right atrial size. Left Atrium Normal left atrial size. Mitral Valve Structurally normal mitral valve. No evidence for mitral valve prolapse. No mitral stenosis. Trace mitral regurgitation. Aortic Valve Aortic valve not well visualized. No aortic stenosis. No aortic regurgitation. Tricuspid Valve Structurally normal tricuspid valve. No tricuspid stenosis. No tricuspid regurgitation. Pulmonic Valve Pulmonic valve not well visualized. Pericardium No pericardial effusion. Aorta Normal size aortic root and proximal ascending aorta. CONCLUSIONS Normal LV systolic function Technically difficult study and contrast was used Previewed by: Dr. Demetri Westbrook MD (Electronically Signed) Final Date: 07 December 2023 13:17
[2023-12-07] MEDS: ACETAMINOPHEN TAB 325 MG TAB PO PRN (14:43)
[2023-12-07 17:47] LABS: Glucose,Whole Blood 141 mg/dL (70-110)
--- NOTE | 2023-12-07 17:49 | P.PN ---
Progress Note - Text Progress Note Date: 12/07/23 Chief Complaint: Not feeling well This is a 78-year-old patient of Dr. Santana. Chronic stable medical conditions include hyperlipidemia, diabetes, obstructive sleep apnea, osteoarthritis, kidney stones, cognitive impairment-dementia. 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 Had a loop recorder seizures. Patient now presents accompanied by his and daughter. Yesterday patient started off with a cough. Aching body. [place] hot. Decreased appetite. This has been going on for about 2 days. Also complained of some pain between the shoulder blade. Tired. Patient himself is not a good historian. December 06: Feeling better. at the bedside. Did eat better this morning. Resting in bed. Coreg dose has been increased for blood pressure. Active Medications Acetaminophen (Acetaminophen Tab 325 Mg Tab) 650 mg PO Q6HR PRN PRN Reason: Fever and/ or Pain Last Admin: 12/07/23 14:43 Dose: 650 mg Atorvastatin Calcium (Atorvastatin 20 Mg Tab) 20 mg PO [facility] Last Admin: 12/06/23 20:57 Dose: 20 mg Carvedilol (Carvedilol 12.5 Mg Tab) 12.5 mg PO BID-W/MEALS [facility] Clopidogrel Bisulfate (Clopidogrel 75 Mg Tab) 75 mg PO DAILY [facility] Last Admin: 12/07/23 09:32 Dose: 75 mg Dextrose/Water (Dextrose 50% Syringe 50 Ml) 25 ml IVP PER PROTOCOL PRN; Protocol PRN Reason: Hypoglycemia Dextrose/Water (Dextrose 50% Syringe 50 Ml) 50 ml IVP PER PROTOCOL PRN; Protocol PRN Reason: Hypoglycemia Duloxetine HCl (Duloxetine Hcl 30 Mg Capsule.) 30 mg PO [facility] Last Admin: 12/06/23 20:57 Dose: 30 mg Furosemide (Furosemide 10 Mg/Ml 4 Ml Vial) 40 mg IV DAILY [facility] Insulin Aspart (Insulin Aspart (Novolog) 100 Unit/Ml Vial) 12 unit SQ AC-SUPPER [facility] Last Admin: 12/06/23 17:39 Dose: 12 unit Insulin Aspart (Insulin Aspart (Novolog) 100 Unit/Ml Vial) 0 unit SQ AC-TID BETSY; Protocol Last Admin: 12/07/23 13:04 Dose: 2 unit Insulin Aspart (Insulin Aspart (Novolog) 100 Unit/Ml Vial) 10 unit SQ AC- BID@0800,1200 [facility] Last Admin: 12/07/23 13:04 Dose: 10 unit Insulin Detemir (Insulin Detemir (Levemir) 100 Unit/Ml Syr) 24 unit SQ DAILY@0700 [facility] Last Admin: 12/07/23 09:31 Dose: 24 unit Isosorbide Mononitrate (Isosorbide Mononitrate Er 60 Mg Tab.Er.24h) 60 mg PO DAILY [facility] Last Admin: 12/07/23 09:32 Dose: 60 mg Levetiracetam (Levetiracetam 500 Mg Tab) 500 mg PO BID [facility] Last Admin: 12/07/23 09:32 Dose: 500 mg Naloxone HCl (Naloxone 0.4 Mg/Ml 1 Ml Vial) 0.2 mg IV Q2M PRN PRN Reason: Opioid Reversal Nifedipine (Nifedipine Xl 60 Mg Tab.Er.24) 120 mg PO DAILY [facility] Last Admin: 12/07/23 09:32 Dose: 120 mg Pantoprazole Sodium (Pantoprazole 40 Mg Tablet) 40 mg PO DAILY [facility] Last Admin: 12/07/23 09:32 Dose: 40 mg Sodium Bicarbonate (Sodium Bicarbonate Tab 650 Mg Tab) 650 mg PO BID [facility] Last Admin: 12/07/23 13:04 Dose: 650 mg Vitamin E (Vitamin E (Dl,Tocopheryl Acet) 400 Unit (180 Mg) Cap) 400 unit PO DAILY [facility] Last Admin: 12/07/23 09:32 Dose: 400 unit Past medical history to include: Diabetes, hyperlipidemia, hypertension, obstructive sleep apnea, osteoarthritis, kidney stones, cognitive impairment, stroke hypertension with right-sided weakness, depression, seizure Social history: No history of smoking or alcohol. Lives with his . Physical examination: VITAL SIGNS: 98.3, 87, 16, 146 x 80, 98% room air GENERAL: Resting in bed, looking better EYES: Pupils equal. Conjunctiva normal. HEENT: External appearance of nose and ears normal, oral cavity grossly normal. NECK: JVD not raised; masses not palpable. HEART: First and second heart sounds are normal; no edema. LUNGS: Respiratory rate normal; clear to auscultation. ABDOMEN: Soft, no tenderness no guarding rigidity, liver spleen not palpable, no masses palpable. PSYCH: answering simple questions NEUROLOGICAL: [Cranial nerves grossly intact; no facial asymmetry, power 4/5 on the right side INVESTIGATIONS, reviewed in the clinical context: 2D echocardiogram: EF 65 to 70%. Troponin I x 2 negative December 06, 2023: White count 7.9 hemoglobin 13.2 platelet 276 sodium 137 potassium 4.4 BUN 34 creatinine 3.49 Influenza type A, type B, RSV, COVID-19: Not detected EKG tracing personally reviewed by me-normal sinus rhythm. Rate 86. Chest x-ray film personally reviewed by me-some venous prominence Previous labs: Creatinine 2.46 on January 2023 Assessment and plan: -Possible viral infection with systemic symptoms. 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 On Levemir, NovoLog Follow Accu-Cheks closely. -Depression otherwise specified Cymbalta -Hyperlipidemia On Lipitor -Chronic kidney disease stage 4 from hypertensive nephrosclerosis and diabetic nephropathy Follow renal function. -Full code Blood pressure medication Coreg was increased today. Increase activity. Discussed with at and the patient. Hopefully discharge tomorrow Past Medical History Past Medical History: CVA/TIA, Diabetes Mellitus, Hyperlipidemia, Hypertension, Liver Disease, Renal Disease, Sleep Apnea/CPAP/BIPAP Additional Past Medical History / Comment(s): ARTHRITIS, kidney stones, possible dementia, kidney failure, neuropathy alia legs, carpal tunnel. CVA-jun 20 balance issues,speech impairment,vision impairment, receives injections to eyes r/t bleeding ,COVID 07/28/2022 History of Any Multi-Drug Resistant Organisms: None Reported Past Surgical History: Back Surgery Additional Past Surgical History / Comment(s): MASS REMOVED FROM BACK OF HEAD, eye surgery, Past Anesthesia/Blood Transfusion Reactions: No Reported Reaction Past Psychological History: Depression Smoking Status: Never smoker Past Alcohol Use History: None Reported Past Drug Use History: None Reported
[2023-12-07] MEDS: carvediloL 12.5 MG TAB PO SCH (18:02)
[2023-12-07 20:52] LABS: Glucose,Whole Blood 95 mg/dL (70-110)
[2023-12-07 23:46] LABS: Glucose,Whole Blood 97 mg/dL (70-110)
[2023-12-08 06:13] LABS: Glucose,Whole Blood 211 mg/dL (70-110)
--- NOTE | 2023-12-08 07:29 | P.PN ---
Subjective Progress Note Date: 12/08/23 Principal diagnosis: HTN The patient is a pleasant 78-year-old gentleman with hypertension and dyslipidemia and history of stroke and multiple comorbid conditions including chronic kidney disease was admitted to the hospital with hypertension emergency complicated by heart failure. December 07, 2023 The patient was seen and evaluated earlier today. He is asymptomatic from the c ardiovascular standpoint of view. The blood pressure remains elevated and consistent with a stage II hypertension. I am going to increase the dose of carvedilol to 12.5 mg p.o. twice daily. Beside that the echo still pending. He reports no pain in the chest and no shortness of breath at this point. Kidney function is abnormal and he is in acute on chronic renal failure at this point. That to be managed by the internal medicine team. Examination is remarkable for regular rhythm with a systolic murmur at the right upper sternal border with clear breathing sounds bilaterally and no lower extremities edema noted December 08, 2023 The patient was seen and evaluated this morning. He is asymptomatic. The pressure has been under better control on the current medical regimen. From a cardiovascular standpoint of view, the patient potentially can be discharged home and to follow-up with the patient on as-needed basis if he is staying in the hospital. The examination showed regular rhythm with a soft systolic murmur and clear breathing sounds bilaterally and no edema was noted. Please note that the echo showed normal LV systolic function Assessment Hypertension emergency Renal failure History of stroke Plan Continue the current medical regimen The pressure has been under better control on the current medical Objective - Vital Signs Vital signs: Vital Signs Temp 97.9 F 12/08/23 02:26 Pulse 75 12/08/23 02:26 Resp 15 12/08/23 02:26 BP 144/71 12/08/23 02:26 Pulse Ox 97 12/08/23 02:26 FiO2 Intake & Output 12/07/23 12/08/23 12/08/23 18:59 06:59 18:59 Intake Total 236 Output Total 1100 350 Balance -864 -350 Weight 89.6 kg Intake: Oral 236 Output: Urine 1100 350 Other: Voiding Method Urinal Urinal # Voids 1 1 - Labs CBC & Chem 7: 12/06/23 00:09 12/06/23 00:09 Labs: Abnormal Lab Results - Last 24 Hours (Table) 12/07/23 12/07/2312/06/24 Range/Units 09:26 12:52 17:46 POC Glucose (mg/dL) 233 H 197 H 141 H (70-110) mg/dL 12/08/23 Range/Units 05:58 POC Glucose (mg/dL) 211 H (70-110) mg/dL
[2023-12-08 08:44] LABS: BUN/Creat Ratio 10.68 Ratio (12.00-20.00); Blood Urea Nitrogen 40.6 mg/dL (9.0-27.0); Calcium 8.4 mg/dL (8.7-10.3); Carbon Dioxide 21.4 mmol/L (21.6-31.8); Chloride 106 mmol/L (96-109); Glucose 236 mg/dL (70-110); Magnesium 2.2 mg/dL (1.5-2.4); Potassium 4.5 mmol/L (3.5-5.5); Sodium 140 mmol/L (135-145)
[2023-12-08] MEDS: FUROSEMIDE 10 MG/ML 4 ML VIAL IV SCH (09:00)
--- NOTE | 2023-12-08 12:09 | P.PN ---
Subjective Patient is seen in follow-up for acute kidney injury on chronic kidney disease. Creatinine 3.8 today. Edema improved. Admits to good urine output. Denies chest pain or shortness of breath. Vital signs are stable. General: No acute distress. HEENT: Head exam is unremarkable. LUNGS: No audible rhonchi or wheezes. HEART: Rate and Rhythm are regular. ABDOMEN: Nontender. EXTREMITITES: No edema. Objective - Vital Signs Vital signs: Vital Signs Temp 99.2 F 12/08/23 07:58 Pulse 74 12/08/23 07:58 Resp 16 12/08/23 07:58 BP 170/66 12/08/23 07:58 Pulse Ox 98 12/08/23 07:58 FiO2 Intake & Output 12/07/23 12/08/23 12/08/23 18:59 06:59 18:59 Intake Total 236 118 Output Total 1100 350 350 Balance -864 -350 -232 Weight 89.6 kg Intake: Oral 236 118 Output: Urine 1100 350 350 Other: Voiding Method Urinal Urinal # Voids 1 1 - Labs CBC & Chem 7: 12/06/23 00:09 12/08/23 05:51 Labs: Abnormal Lab Results - Last 24 Hours (Table) 12/07/23 12/07/23 12/08/23 Range/Units 12:52 17:46 05:51 Carbon Dioxide 21.4 L (21.6-31.8) mmol/L Anion Gap 12.60 H (4.00-12.00) mmol/L BUN 40.6 H (9.0-27.0) mg/dL Creatinine 3.8 H (0.6-1.5) mg/dL Est GFR (CKD-EPI) 16 L (>=60) BUN/Creatinine Ratio 10.68 L (12.00-20.00) Ratio Glucose 236 H (70-110) mg/dL POC Glucose (mg/dL) 197 H 141 H (70-110) mg/dL Calcium 8.4 L (8.7-10.3) mg/dL 12/08/23 Range/Units 05:58 Carbon Dioxide (21.6-31.8) mmol/L Anion Gap (4.00-12.00) mmol/L BUN (9.0-27.0) mg/dL Creatinine (0.6-1.5) mg/dL Est GFR (CKD-EPI) (>=60) BUN/Creatinine Ratio (12.00-20.00) Ratio Glucose (70-110) mg/dL POC Glucose (mg/dL) 211 H (70-110) mg/dL Calcium (8.7-10.3) mg/dL Assessment and Plan Plan: Assessment: 1. Acute kidney injury secondary to hemodynamic ATN. Creatinine 3.46 on admission -3.8 today. No hydronephrosis noted on ultrasound. UA shows 3+ protein and 4+ glucose without any RBCs. 2. 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 Recent creatinines in the range of 2.1-2.4. Concern for progression of underlying chronic kidney disease. 3. Hypertensive emergency. Improved. 4. Metabolic acidosis secondary to acute kidney injury. On oral bicarb. Better. 5. Diabetes mellitus. 6. History of CVA. 7. Fluid overload. Improving with diuresis. Plan: Change Lasix to 20 mg orally once daily. Preserved ejection fraction noted on echocardiogram. Increased dose of Coreg. Continue to hold losartan for now. Also hold SGLT2 inhibitors as GFR less than 20. Continue to monitor renal function and urine output. Advised to follow-up outpatient 1 week postdischarge to establish CKD care - last seen in office in 2020. Advised patient to monitor his weight closely at home and to notify physician if develops edema or gains more than 3 pounds in 1 week duration. Advised to maintain low-salt diet and fluid restriction of less than 50 ounces per day.
[2023-12-08 12:18] LABS: Glucose,Whole Blood 134 mg/dL (70-110)
[2023-12-08 15:22] VITALS: BP 175/70; PULSE 71; RESP 18; TEMP 97.5
[2023-12-08] MEDS ORDERED: carvediloL 12.5 MG TAB PO SCH (17:30)
--- NOTE | 2023-12-08 19:16 | P.PN ---
Progress Note - Text Progress Note Date: 12/08/23 Chief Complaint: Not feeling well This is a 78-year-old patient of Dr. Santana. Chronic stable medical conditions include hyperlipidemia, diabetes, obstructive sleep apnea, osteoarthritis, kidney stones, cognitive impairment-dementia. 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 Had a loop recorder seizures. Patient now presents accompanied by his and daughter. Yesterday patient started off with a cough. Aching body. [place] hot. Decreased appetite. This has been going on for about 2 days. Also complained of some pain between the shoulder blade. Tired. Patient himself is not a good historian. December 06: Feeling better. at the bedside. Did eat better this morning. Resting in bed. Coreg dose has been increased for blood pressure. December 07: Doing well. Eating well. Family at the bedside. Cleared by c ardiology. Blood pressure medication adjusted. Will follow-up with cardiology and nephrology outpatient. Check BMP in 3 days. Past medical history to include: Diabetes, hyperlipidemia, hypertension, obstructive sleep apnea, osteoarthritis, kidney stones, cognitive impairment, stroke hypertension with right-sided weakness, depression, seizure Social history: No history of smoking or alcohol. Lives with his . Physical examination: VITAL SIGNS: 97.5, 71, 18, GENERAL: Resting in bed, comfortable EYES: Pupils equal. Conjunctiva normal. HEENT: External appearance of nose and ears normal, oral cavity grossly normal. NECK: JVD not raised; masses not palpable. HEART: First and second heart sounds are normal; no edema. LUNGS: Respiratory rate normal; clear to auscultation. ABDOMEN: Soft, no tenderness no guarding rigidity, liver spleen not palpable, no masses palpable. PSYCH: answering simple questions NEUROLOGICAL: [Cranial nerves grossly intact; no facial asymmetry, power 4/5 on the right side INVESTIGATIONS, reviewed in the clinical context: December 07: Potassium 4.5 BUN 40.6 creatinine 3.8 2D echocardiogram: EF 65 to 70%. Troponin I x 2 negative December 06, 2023: White count 7.9 hemoglobin 13.2 platelet 276 sodium 137 potassium 4.4 BUN 34 creatinine 3.49 Influenza type A, type B, RSV, COVID-19: Not detected EKG tracing personally reviewed by me-normal sinus rhythm. Rate 86. Chest x-ray film personally reviewed by me-some venous prominence Previous labs: Creatinine 2.46 on January 2023 Assessment and plan: -Possible viral infection with systemic symptoms. 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 On Levemir, NovoLog Follow Accu-Cheks closely. -Depression otherwise specified Cymbalta -Hyperlipidemia On Lipitor -Chronic kidney disease stage 4 from hypertensive nephrosclerosis and diabetic nephropathy Follow renal function. -Full code Disposition: Home Labs: BMP: 3 to 5 days Past Medical History Past Medical History: CVA/TIA, Diabetes Mellitus, Hyperlipidemia, Hypertension, Liver Disease, Renal Disease, Sleep Apnea/CPAP/BIPAP Additional Past Medical History / Comment(s): ARTHRITIS, kidney stones, possible dementia, kidney failure, neuropathy alia legs, carpal tunnel. CVA-oct 20 balance issues,speech impairment,vision impairment, receives injections to eyes r/t bleeding ,COVID 07/28/2022 History of Any Multi-Drug Resistant Organisms: None Reported Past Surgical History: Back Surgery Additional Past Surgical History / Comment(s): MASS REMOVED FROM BACK OF HEAD, eye surgery, Past Anesthesia/Blood Transfusion Reactions: No Reported Reaction Past Psychological History: Depression Smoking Status: Never smoker Past Alcohol Use History: None Reported Past Drug Use History: None Reported
[2023-12-09] MEDS ORDERED: FUROSEMIDE 20 MG TAB PO SCH (09:00)
--- NOTE | 2023-12-23 19:45 | P.DS ---
Providers Date of admission: 12/06/23 13:42 Expected date of discharge: 12/08/23 Attending physician: Tadeo Dickerson Consults: 12/06/23 12:15 Consult Physician Routine Consulting Provider: Irving Angeles Consult Reason/Comments: JAMAAL on CKD Do you want consulting provider notified?: Yes, Notify in am Primary care physician: Dennis Santana [facility] Course: Chief Complaint: Not feeling well This is a 78-year-old patient of Dr. Santana. Chronic stable medical conditions include hyperlipidemia, diabetes, obstructive sleep apnea, osteoarthritis, kidne y stones, cognitive impairment-dementia. 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 Had a loop recorder seizures. Patient now presents accompanied by his and daughter. Yesterday patient started off with a cough. Aching body. [employer] hot. Decreased appetite. This has been going on for about 2 days. Also complained of some pain between the shoulder blade. Tired. Patient himself is not a good historian. December 06: Feeling better. at the bedside. Did eat better this morning. Resting in bed. Coreg dose has been increased for blood pressure. December 07: Doing well. Eating well. Family at the bedside. Cleared by cardiology. Blood pressure medication adjusted. Will follow-up with cardiology and nephrology outpatient. Check BMP in 3 days. Past medical history to include: Diabetes, hyperlipidemia, hypertension, obstructive sleep apnea, osteoarthritis, kidney stones, cognitive impairment, stroke hypertension with right-sided wea kness, depression, seizure Social history: No history of smoking or alcohol. Lives with his . Physical examination: VITAL SIGNS: 97.5, 71, 18, GENERAL: Resting in bed, comfortable EYES: Pupils equal. Conjunctiva normal. HEENT: External appearance of nose and ears normal, oral cavity grossly normal. NECK: JVD not raised; masses not palpable. HEART: First and second heart sounds are normal; no edema. LUNGS: Respiratory rate normal; clear to auscultation. ABDOMEN: Soft, no tenderness no guarding rigidity, liver spleen not palpable, no masses palpable. PSYCH: answering simple questions NEUROLOGICAL: [Cranial nerves grossly intact; no facial asymmetry, power 4/5 on the right side INVESTIGATIONS, reviewed in the clinical context: December 07: Potassium 4.5 BUN 40.6 creatinine 3.8 2D echocardiogram: EF 65 to 70%. Troponin I x 2 negative December 06, 2023: White count 7.9 hemoglobin 13.2 platelet 276 sodium 137 potassium 4.4 BUN 34 creatinine 3.49 Influenza type A, type B, RSV, COVID-19: Not detected EKG tracing personally reviewed by me-normal sinus rhythm. Rate 86. Chest x-ray film personally reviewed by me-some venous prominence Previous labs: Creatinine 2.46 on January 2023 Assessment and plan: -Possible viral infection with systemic symptoms. 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 On Levemir, NovoLog Follow Accu-Cheks closely. -Depression otherwise specified Cymbalta -Hyperlipidemia On Lipitor -Chronic kidney disease stage 4 from hypertensive nephrosclerosis and diabetic nephropathy Follow renal function. -Full code Disposition: Home Labs: BMP: 3 to 5 days Past Medical History Past Medical History: CVA/TIA, Diabetes Mellitus, Hyperlipidemia, Hypertension, Liver Disease, Renal Disease, Sleep Apnea/CPAP/BIPAP Additional Past Medical History / Comment(s): ARTHRITIS, kidney stones, possible dementia, kidney failure, neuropathy alia legs, carpal tunnel. CVA-jul 17 balance issues,speech impairment,vision impairment, receives injections to eyes r/t bleeding ,COVID 07/28/2022 History of Any Multi-Drug Resistant Organisms: None Reported Past Surgical History: Back Surgery Additional Past Surgical History / Comment(s): MASS REMOVED FROM BACK OF HEAD, eye surgery, Past Anesthesia/Blood Transfusion Reactions: No Reported Reaction Past Psychological History: Depression Smoking Status: Never smoker Past Alcohol Use History: None Reported Past Drug Use History: None Reported Plan - Discharge Summary Discharge Rx Participant: No New Discharge Prescriptions: New Furosemide [Lasix] 20 mg PO DAILY #30 tab carvediloL [Coreg*] 12.5 mg PO BID-W/MEALS #60 tab Sodium Bicarbonate Tab 650 mg PO BID #30 tab Continue Isosorbide Mononitrate ER [Imdur] 60 mg PO DAILY DULoxetine HCL [Cymbalta] 30 mg PO HS Omeprazole 20 mg PO DAILY Clopidogrel [Plavix] 75 mg PO DAILY #30 tab levETIRAcetam [Keppra] 500 mg PO BID Atorvastatin [Lipitor] 20 mg PO HS Insulin Aspart [NovoLOG Flexpen] 12 units SQ W/SUPPER Vitamin E 400 unit PO DAILY Insulin Glargine,Hum.rec.anlog [Lantus Solostar Pen] 30 units SQ DAILY #0 Insulin Aspart [NovoLOG Flexpen] 10 units SQ AC-BID@0800,1200 Dapagliflozin Propanediol [Farxiga] 10 mg PO DAILY Insulin Aspart [NovoLOG Flexpen] See Protocol SQ TID-W/MEALS PRN PRN Reason: HIGH BLOOD SUGAR Changed NIFEdipine XL [Procardia XL] 120 mg PO DAILY 30 Days #30 tab Discontinued cloNIDine HCL [Catapres] 0.2 mg PO BID #60 tab Losartan [Cozaar] 25 mg PO HS Loratadine 10 mg PO DAILY Discharge Medication List DULoxetine HCL [Cymbalta] 30 mg PO HS 03/13/16 [History] Isosorbide Mononitrate ER [Imdur] 60 mg PO DAILY 03/13/16 [History] Omeprazole 20 mg PO DAILY 07/08/20 [History] Clopidogrel [Plavix] 75 mg PO DAILY #30 tab 07/11/20 [Rx] levETIRAcetam [Keppra] 500 mg PO BID 12/11/20 [History] Atorvastatin [Lipitor] 20 mg PO HS 07/18/21 [History] Insulin Aspart [NovoLOG Flexpen] 10 units SQ AC-BID@0800,1200 07/28/21 [History] Insulin Aspart [NovoLOG Flexpen] 12 units SQ W/SUPPER 07/28/21 [History] Dapagliflozin Propanediol [Farxiga] 10 mg PO DAILY 11/10/21 [History] Vitamin E 400 unit PO DAILY 11/10/21 [History] Insulin Glargine,Hum.rec.anlog [Lantus Solostar Pen] 30 units SQ DAILY #0 11/12/21 [Rx] Insulin Aspart [NovoLOG Flexpen] See Protocol SQ TID-W/MEALS PRN 02/02/22 [History] Furosemide [Lasix] 20 mg PO DAILY #30 tab 12/08/23 [Rx] NIFEdipine XL [Procardia XL] 120 mg PO DAILY 30 Days #30 tab 12/08/23 [Rx] Sodium Bicarbonate Tab 650 mg PO BID #30 tab 12/08/23 [Rx] carvediloL [Coreg*] 12.5 mg PO BID-W/MEALS #60 tab 12/08/23 [Rx] Follow up Appointment(s)/Referral(s): cardiology, [Other] - 1 Week Dennis Santana DO [Primary Care Provider] - 1-2 days Irving Angeles DO [STAFF PHYSICIAN] - 12/21/23 2:20 pm Patient Instructions/Handouts: Heart Failure (DC) Discharge Disposition: HOME SELF-CARE
== END 2023-12-08 15:25 | disposition home or self-care (01) ==
LOC: EC 21:52 → 6NMEDSUR 12-06 01:48 → INTOOBSV 12-06 13:42 → OBSVTOIN 12-06 13:42 → UNDODISIN 12-08 15:25
PROVIDERS: ADMIT Hospitalist; ATTEND Hospitalist
DX: I16.1 Hypertensive emergency (principal); I13.0 Hypertensive heart and chronic kidney disease with heart failure and stage 1 through stage 4 chronic kidney disease, or unspecified chronic kidney disease; I50.33 Acute on chronic diastolic (congestive) heart failure; N18.4 Chronic kidney disease, stage 4 (severe); E11.22 Type 2 diabetes mellitus with diabetic chronic kidney disease; E78.5 Hyperlipidemia, unspecified; F32.A Depression, unspecified; I25.10 Atherosclerotic heart disease of native coronary artery without angina pectoris; G47.33 Obstructive sleep apnea (adult) (pediatric); F01.53 Vascular dementia, unspecified severity, with mood disturbance; G40.909 Epilepsy, unspecified, not intractable, without status epilepticus; E11.40 Type 2 diabetes mellitus with diabetic neuropathy, unspecified; I69.351 Hemiplegia and hemiparesis following cerebral infarction affecting right dominant side; Z86.16 Personal history of COVID-19; Z95.818 Presence of other cardiac implants and grafts; Z79.02 Long term (current) use of antithrombotics/antiplatelets; Z79.4 Long term (current) use of insulin; Z79.85 Long-term (current) use of injectable non-insulin antidiabetic drugs; Z79.84 Long term (current) use of oral hypoglycemic drugs; Z79.899 Other long term (current) drug therapy
CPT/HCPCS: 36415; 71046; 76770; 80048; 80053; 81001; 83735; 84484; 85025; 87636; 93005; 93306; 96374; 96376; 99285

== ENCOUNTER 2023-12-10 20:44 | Emergency (ER) | payer MEDICARE, OTHER ==
--- NOTE | 2023-12-10 21:15 | ED ---
Weakness HPI - General Source: patient, family, RN notes reviewed Mode of arrival: ambulatory Limitations: no limitations <Magaly Marrero - Last Filed: 12/10/23 21:15> - General Source: RN notes reviewed, old records reviewed Mode of arrival: ambulatory Limitations: no limitations - History of Present Illness MD Complaint: generalized weakness, numbness, tingling, lack of energy -: days(s) Location: generalized Severity: moderate Severity scale (1-10): 6 Quality: crushing, sharp Consistency: constant Improves with: none Worsens with: none Context: recent illness, history of similar Associated Symptoms: loss of appetite, nausea/vomiting <Felipe Kemp - Last Filed: 12/17/23 23:08> - General Chief complaint: Weakness Stated complaint: upper back pain Time Seen by Provider: 12/10/23 21:15 - History of Present Illness Initial comments: Quick note: Patient is a 78-year-old male presented to ER with chief complaint of fatigue. Patient recently released from hospital and diagnosed with stage IV kidney disease. Patient is complaining of mid back pain and decreased urine output. (Magaly Marrero) This is 78-year-old male with difficult history of present illness CC has tr ouble communicating secondary to dementia advanced age, patient does suffer from renal disease coming in for back pain epigastric pain abdominal pain (Felipe Kemp) - Related Data Home Medications Medication Instructions Recorded Confirmed DULoxetine HCL [Cymbalta] 30 mg PO HS 03/13/16 12/06/23 Isosorbide Mononitrate ER [Imdur] 60 mg PO DAILY 03/13/16 12/06/23 Omeprazole 20 mg PO DAILY 07/08/20 12/06/23 levETIRAcetam [Keppra] 500 mg PO BID 12/11/20 12/06/23 Atorvastatin [Lipitor] 20 mg PO HS 07/18/21 12/06/23 Insulin Aspart [NovoLOG Flexpen] 10 units SQ AC-BID@0800,1200 07/28/21 12/06/23 Insulin Aspart [NovoLOG Flexpen] 12 units SQ W/SUPPER 07/28/21 12/06/23 Dapagliflozin Propanediol [Farxiga] 10 mg PO DAILY 11/10/21 12/06/23 Vitamin E 400 unit PO DAILY 11/10/21 12/06/23 Insulin Aspart [NovoLOG Flexpen] See Protocol SQ TID-W/MEALS PRN 02/02/22 12/06/23 Previous Rx's Medication Instructions Recorded Clopidogrel [Plavix] 75 mg PO DAILY #30 tab 07/11/20 Insulin Glargine,Hum.rec.anlog 30 units SQ DAILY #0 11/12/21 [Lantus Solostar Pen] Furosemide [Lasix] 20 mg PO DAILY #30 tab 12/08/23 NIFEdipine XL [Procardia XL] 120 mg PO DAILY 30 Days #30 tab 12/08/23 Sodium Bicarbonate Tab 650 mg PO BID #30 tab 12/08/23 carvediloL [Coreg*] 12.5 mg PO BID-W/MEALS #60 tab 12/08/23 Allergies Allergy/AdvReac Type Severity Reaction Status Date / Time No Known Allergies Allergy Verified 12/10/23 21:07 Review of Systems ROS Other: All systems not noted in ROS Statement are negative. <Magaly Marrero - Last Filed: 12/10/23 21:15> ROS Other: All systems not noted in ROS Statement are negative. <Felipe Kemp - Last Filed: 12/17/23 23:08> ROS Statement: Those systems with pertinent positive or pertinent negative responses have been documented in the HPI. Past Medical History Past Medical History: CVA/TIA, Diabetes Mellitus, Hyperlipidemia, Hypertension, Liver Disease, Renal Disease, Sleep Apnea/CPAP/BIPAP Additional Past Medical History / Comment(s): ARTHRITIS, kidney stones, possible dementia, kidney failure, neuropathy alia legs, carpal tunnel. CVA-oct 20 balance issues,speech impairment,vision impairment, receives injections to eyes r/t bleeding ,COVID 07/28/2022 History of Any Multi-Drug Resistant Organisms: None Reported Past Surgical History: Back Surgery Additional Past Surgical History / Comment(s): MASS REMOVED FROM BACK OF HEAD, eye surgery, Past Anesthesia/Blood Transfusion Reactions: No Reported Reaction Past Psychological History: Depression Smoking Status: Never smoker Past Alcohol Use History: None Reported Past Drug Use History: None Reported - Past Family History Father Family Medical History: Diabetes Mellitus Mother Family Medical History: Diabetes Mellitus Brother(s) Family Medical History: Cancer Sister(s) Family Medical History: Cancer <Magaly Marrero - Last Filed: 12/10/23 21:15> General Exam Limitations: no limitations <Magaly Marrero - Last Filed: 12/10/23 21:15> General appearance: alert, in no apparent distress Head exam: Present: atraumatic, normocephalic, normal inspection Eye exam: Present: normal appearance, PERRL, EOMI. Absent: scleral icterus, conjunctival injection, periorbital swelling ENT exam: Present: normal exam, mucous membranes moist Neck exam: Present: normal inspection. Absent: tenderness, meningismus, lym phadenopathy Respiratory exam: Present: normal lung sounds bilaterally. Absent: respiratory distress, wheezes, rales, rhonchi, stridor Cardiovascular Exam: Present: regular rate, normal rhythm, normal heart sounds. Absent: systolic murmur, diastolic murmur, rubs, gallop, clicks GI/Abdominal exam: Present: soft, normal bowel sounds. Absent: distended, tenderness, guarding, rebound, rigid Extremities exam: Present: normal inspection, full ROM, normal capillary refill. Absent: tenderness, pedal edema, joint swelling, calf tenderness Back exam: Present: normal inspection Neurological exam: Present: alert, oriented X3, CN II-XII intact Psychiatric exam: Present: normal affect, normal mood Skin exam: Present: warm, dry, intact, normal color. Absent: rash <Felipe Kemp - Last Filed: 12/17/23 23:08> - General Exam Comments Initial Comments: Visual Physical Exam Vital signs reviewed General: Well-appearing, nontoxic, no acute distress. Head: Normocephalic, atraumatic Eyes: PERRLA, EOMI ENT: Airway patent Chest: Nonlabored breathing Skin: No visual rash, normal skin tone Neuro: Alert and oriented 3 Musculoskeletal: No gross abnormalities (Magaly Marrero) Course <Felipe Kemp - Last Filed: 12/17/23 23:08> Vital Signs 12/10/23 12/11/23 21:02 01:15 Temperature 98.7 F 98.7 F Pulse Rate 65 68 Respiratory 20 18 Rate Blood Pressure 126/66 172/89 O2 Sat by Pulse 97 Oximetry - Reevaluation(s) Reevaluation #1: 12/10/23 23:51 Medical records reviewed (Felipe Kemp) Reevaluation #2: 12/10/23 23:51 Patient symptoms unchanged (Felipe Kemp) Reevaluation #3: 12/10/23 23:51 Patient informed of results and questions answered (Felipe Kemp) Reevaluation #4: Was pt. sent in by a medical professional or institution (, CALLI, GUEST SERVICE REPRESENTATIVE, urgent care, hospital, or half-way...) When possible be specific @ -no Did you speak to anyone other than the patient for history (EMS, parent, family, police, friend...)? What history was obtained from this source @ -no Did you review nursing and triage notes (agree or disagree)? Why? @ -agree Are old charts reviewed (outside hosp., previous admission, EMS record, old EKG, old radiological studies, urgent care reports/EKG's, half-way records)? Report findings @ -yes Differential Diagnosis (chest pain, altered mental status, abdominal pain women, abdominal pain men, vaginal bleeding, weakness, fever, dyspnea, syncope, headache, dizziness, GI bleed, back pain, seizure, CVA, palpatations, mental health, musculoskeletal)? @ -prior EKG interpreted by me (3pts min.). @ -yes X-rays interpreted by me (1pt min.). @ -no CT interpreted by me (1pt min.). @ -Yes negative for acute disease U/S interpreted by me (1pt. min.). @ -no What testing was considered but not performed or refused? (CT, X-rays, U/S, labs)? Why? @ -none What meds were considered but not given or refused? Why? @ -none Did you discuss the management of the patient with other professionals (pro fessionals i.e. , CALLI, GUEST SERVICE REPRESENTATIVE, lab, RT, psych nurse, social media content specialist, bilingual customer service specialist, teacher, trust officer, case finishing machine adjuster)? Give summary @ -no Was smoking cessation discussed for >3mins.? @ -no Was critical care preformed (if so, how long)? @ -no Were there social determinants of health that impacted care today? How? (Homelessness, low income, unemployed, alcoholism, drug addiction, transportation, low edu. Level, literacy, decrease access to med. care, detention, rehab)? @ -none Was there de-escalation of care discussed even if they declined (Discuss DNR or withdrawal of care, Hospice)? DNR status @ -no What co-morbidities impacted this encounter? (DM, HTN, Smoking, COPD, CAD, Cancer, CVA, ARF, Chemo, Hep., AIDS, mental health diagnosis, sleep apnea, morbid obesity)? @ -none Was patient admitted / discharged? Hospital course, mention meds given and route, prescriptions, significant lab abnormalities, going to OR and other pertinent info. @ - 78 male again of a poor historian coming in for evaluation of what appears to be chest pain. No acute cause of chest pain found here in the ER patient does have recent hospital admission for similar symptoms and currently will be discharged home Discharge Undiagnosed new problem with uncertain prognosis? @ -no Drug Therapy requiring intensive monitoring for toxicity (Heparin, Nitro, Insulin, Cardizem)? @ -no Were any procedures done? @ -no Diagnosis/symptom? @ -Chest pain abdominal pain Acute, or Chronic, or Acute on Chronic? @ -Acute Uncomplicated (without systemic symptoms) or Complicated (systemic symptoms)? @ -Complicated Side effects of treatment? @ -no Exacerbation, Progression, or Severe Exacerbation? @ -exacerbation Poses a threat to life or bodily function? How? (Chest pain, USA, VT, pneumonia, PE, COPD, DKA, ARF, appy, cholecystitis, CVA, Diverticulitis, Homicidal, Suicidal, threat to staff... and all critical care pts) @ -yes with extremes of age (Felipe Kemp) Reevaluation #5: Differential Back Pain: Strain, zoster, cauda equina syndrome, epidural abscess, vertebral osteomyelitis, discitis, fracture, subluxation, disc herniation, DJD, spinal stenosis, dissection, AAA, pancreatitis, peptic ulcer disease, pyelonephritis, kidney stone, this is not meant to be an all-inclusive list. Differential Chest Pain: Stable Angina, Unstable Angina, STEMI, NSTEMI Aortic Dissection, Pneumothorax, Musculoskeletal, Esophageal Spasm GERD, Cholecystitis, Pancreatitis, Zoster, this is not meant to be an all-inclusive list. (Felipe Kemp) EKG Findings - EKG Comments: EKG Findings:: EKG is sinus 65 NE 162 QRS 109 QTc 403 <Felipe Kemp - Last Filed: 12/17/23 23:08> Medical Decision Making <Magaly Marrero - Last Filed: 12/10/23 21:15> - Lab Data Result diagrams: 12/10/23 21:47 12/10/23 21:47 - Radiology Data Radiology results: report reviewed (CT of the chest abdomen pelvis is negative for acute disease), image reviewed <Felipe Kemp - Last Filed: 12/17/23 23:08> - Medical Decision Making I performed the quick note portion of this chart. Electronically signed by Magaly Marrero PA-C (Magaly Marrero) 78 male again of a poor historian coming in for evaluation of what appears to be chest pain. No acute cause of chest pain found here in the ER patient does have recent hospital admission for similar symptoms and currently will be discharged home (Felipe Kemp) - Lab Data Lab Results 12/10/23 12/10/23 12/10/23 Range/Units 21:47 21:47 21:47 WBC 7.7 (3.8-10.6) k/uL RBC 4.15 L (4.30-5.90) m/uL Hgb 12.5 L (13.0-17.5) gm/dL Hct 38.4 L (39.0-53.0) % MCV 92.6 (80.0-100.0) fL MCH 30.0 (25.0-35.0) pg MCHC 32.4 (31.0-37.0) g/dL RDW 14.2 (11.5-15.5) % Plt Count 309 (150-450) k/uL MPV 8.2 Neutrophils % 63 % Lymphocytes % 26 % Monocytes % 7 % Eosinophils % 1 % Basophils % 1 % Neutrophils # 4.8 (1.3-7.7) k/uL Lymphocytes # 2.0 (1.0-4.8) k/uL Monocytes # 0.6 (0-1.0) k/uL Eosinophils # 0.1 (0-0.7) k/uL Basophils # 0.1 (0-0.2) k/uL PT 9.8 L (10.0-12.5) sec INR 0.9 (<1.2) APTT 23.6 (22.0-30.0) sec Sodium 133 L (137-145) mmol/L Potassium 4.2 (3.5-5.1) mmol/L Chloride 104 (98-107) mmol/L Carbon Dioxide 20 L (22-30) mmol/L Anion Gap 9 mmol/L BUN 53 H (9-20) mg/dL Creatinine 4.00 H (0.66-1.25) mg/dL Est GFR (CKD-EPI)AfAm 16 (>60 ml/min/1.73 sqM) Est GFR (CKD-EPI)NonAf 14 (>60 ml/min/1.73 sqM) Glucose 406 H (74-99) mg/dL Plasma Lactic Acid Jens (0.7-2.0) mmol/L Calcium 8.1 L (8.4-10.2) mg/dL Phosphorus 4.4 (2.5-4.5) mg/dL Magnesium 2.2 (1.6-2.3) mg/dL Total Bilirubin 0.3 (0.2-1.3) mg/dL AST 27 (17-59) U/L ALT 16 (4-49) U/L Alkaline Phosphatase 191 H (38-126) U/L Troponin I (0.000-0.034) ng/mL NT-Pro-B Natriuret Pep 1250 pg/mL Total Protein 6.0 L (6.3-8.2) g/dL Albumin 3.3 L (3.5-5.0) g/dL Urine Color Urine Appearance (Clear) Urine pH (5.0-8.0) Ur Specific [place] (1.001-1.035) Urine Protein (Negative) Urine Glucose (UA) (Negative) Urine Ketones (Negative) Urine Blood (Negative) Urine Nitrite (Negative) Urine Bilirubin (Negative) Urine Urobilinogen (<2.0) mg/dL Ur Leukocyte Esterase (Negative) Urine RBC (0-5) /hpf Urine WBC (0-5) /hpf Ur Squamous Epith Cells (0-4) /hpf Urine Mucus (None) /hpf Urine Yeast (Budding) (None) /hpf 12/10/23 12/10/23 12/11/23 Range/Units 21:47 21:47 00:31 WBC (3.8-10.6) k/uL RBC (4.30-5.90) m/uL Hgb (13.0-17.5) gm/dL Hct (39.0-53.0) % MCV (80.0-100.0) fL MCH (25.0-35.0) pg MCHC (31.0-37.0) g/dL RDW (11.5-15.5) % Plt Count (150-450) k/uL MPV Neutrophils % % Lymphocytes % % Monocytes % % Eosinophils % % Basophils % % Neutrophils # (1.3-7.7) k/uL Lymphocytes # (1.0-4.8) k/uL Monocytes # (0-1.0) k/uL Eosinophils # (0-0.7) k/uL Basophils # (0-0.2) k/uL PT (10.0-12.5) sec INR (<1.2) APTT (22.0-30.0) sec Sodium (137-145) mmol/L Potassium (3.5-5.1) mmol/L Chloride (98-107) mmol/L Carbon Dioxide (22-30) mmol/L Anion Gap mmol/L BUN (9-20) mg/dL Creatinine (0.66-1.25) mg/dL Est GFR (CKD-EPI)AfAm (>60 ml/min/1.73 sqM) Est GFR (CKD-EPI)NonAf (>60 ml/min/1.73 sqM) Glucose (74-99) mg/dL Plasma Lactic Acid Jens 1.4 (0.7-2.0) mmol/L Calcium (8.4-10.2) mg/dL Phosphorus (2.5-4.5) mg/dL Magnesium (1.6-2.3) mg/dL Total Bilirubin (0.2-1.3) mg/dL AST (17-59) U/L ALT (4-49) U/L Alkaline Phosphatase (38-126) U/L Troponin I <0.012 (0.000-0.034) ng/mL NT-Pro-B Natriuret Pep pg/mL Total Protein (6.3-8.2) g/dL Albumin (3.5-5.0) g/dL Urine Color Colorless Urine Appearance Clear (Clear) Urine pH 6.0 (5.0-8.0) Ur Specific [place] 1.013 (1.001-1.035) Urine Protein 3+ H (Negative) Urine Glucose (UA) 4+ H (Negative) Urine Ketones Negative (Negative) Urine Blood Trace H (Negative) Urine Nitrite Negative (Negative) Urine Bilirubin Negative (Negative) Urine Urobilinogen <2.0 (<2.0) mg/dL Ur Leukocyte Esterase Negative (Negative) Urine RBC 1 (0-5) /hpf Urine WBC 1 (0-5) /hpf Ur Squamous Epith Cells <1 (0-4) /hpf Urine Mucus Rare H (None) /hpf Urine Yeast (Budding) Rare H (None) /hpf Disposition <Magaly Marrero - Last Filed: 12/10/23 21:15> Is patient prescribed a controlled substance at d/c from ED?: No Time of Disposition: 01:00 <Felipe Kemp - Last Filed: 12/17/23 23:08> Clinical Impression: Altered mental status, Generalized weakness, Chest pain, Back pain Disposition: HOME SELF-CARE Condition: Good Instructions (If sedation given, give patient instructions): Chest Pain (ED), Costochondritis (ED), Noncardiac Chest Pain (ED) Referrals: Dennis Santana DO [Primary Care Provider] - 1-2 days
[2023-12-10 21:38] VITALS: TEMP 98.7
[2023-12-10 22:18] LABS: Basophils # (A) 0.1 k/uL (0-0.2); Basophils % (A) 1 %; Eosinophils # (A) 0.1 k/uL (0-0.7); Eosinophils % (A) 1 %; HCT 38.4 % (39.0-53.0); HGB 12.5 gm/dL (13.0-17.5); Lymphocytes % (A) 26 %; MCHC 32.4 g/dL (31.0-37.0); MCV 92.6 fL (80.0-100.0); Mean Platelet Volume 8.2; Monocytes # (A) 0.6 k/uL (0-1.0); Monocytes % (A) 7 %; Neutrophils # (A) 4.8 k/uL (1.3-7.7); Neutrophils % (A) 63 %; Platelet Count 309 k/uL (150-450); RBC 4.15 m/uL (4.30-5.90); RDW 14.2 % (11.5-15.5); WBC 7.7 k/uL (3.8-10.6)
[2023-12-10 22:34] LABS: ALT 16 U/L (4-49); AST 27 U/L (17-59); African American GFR (CKD) 16 (>60 ml/min/1.73 sqM); Albumin 3.3 g/dL (3.5-5.0); Alkaline Phosphatase 191 U/L (38-126); Anion Gap 9 mmol/L; Blood Urea Nitrogen 53 mg/dL (9-20); Calcium 8.1 mg/dL (8.4-10.2); Carbon Dioxide 20 mmol/L (22-30); Chloride 104 mmol/L (98-107); Glucose 406 mg/dL (74-99); Magnesium 2.2 mg/dL (1.6-2.3); Non-African American GFR(CKD) 14 (>60 ml/min/1.73 sqM); Phosphorus 4.4 mg/dL (2.5-4.5); Potassium 4.2 mmol/L (3.5-5.1); Sodium 133 mmol/L (137-145); Total Bilirubin 0.3 mg/dL (0.2-1.3)
[2023-12-10 22:36] LABS: INR 0.9 (<1.2); Partial Thromboplastin Time 23.6 sec (22.0-30.0); Prothrombin Time 9.8 sec (10.0-12.5)
[2023-12-10 22:42] LABS: NT-Pro-B-Type Natriuretic Pept 1250 pg/mL
[2023-12-10] MEDS: PANTOPRAZOLE 40 MG/10 ML VIAL IVP STA (22:53)
[2023-12-10] MEDS: ONDANSETRON 4 MG/2 ML VIAL IVP STA (22:54)
[2023-12-10] MEDS: SODIUM CHLORIDE 0.9% 1,000 ML IV STA (22:54)
--- NOTE | 2023-12-11 00:10 | CT ---
EXAMINATION TYPE: CT ChestAbdPelvis wo con DATE OF EXAM: 12/10/2023 COMPARISON: CTA aorta April 20, 2019 HISTORY: pt complains of fatigue, chest congestion, upper back pain, recent DC for same complaints de creased appetite and decreased urine output CT DLP: 902.2 mGycm. Automated Exposure Control for Dose Reduction was Utilized. TECHNIQUE: CT scan of the thorax, abdomen and pelvis is performed without IV contrast. FINDINGS: LUNGS: The lungs are grossly clear, there is no concerning parenchymal mass or nodule identified. T here is no pleural effusion or pneumothorax seen. The tracheobronchial tree is patent. MEDIASTINUM: There are no greater than 1 cm new mediastinal lymph nodes. No cardiomegaly or pericar dial effusion is seen. Moderate to severe three-vessel coronary artery calcification is present. OTHER: Bilateral subareolar gynecomastia is redemonstrated. LIVER/GB: Cholecystectomy clips are now present. PANCREAS: No significant abnormality is seen. SPLEEN: No significant abnormality is seen. ADRENALS: No significant abnormality is seen. KIDNEYS: Cortical thinning bilaterally. Findings consistent with products of chronic medical renal di sease and is new or more prominent from prior. Mild to moderate concentric wall thickening in the kina dder likely from outlet obstruction related to BPH BOWEL: No abnormal small or large bowel dilatation. GENITAL ORGANS: Enlarged prostate consistent with BPH. LYMPH NODES: No greater than 1cm abdominal or pelvic lymph nodes are appreciated. OSSEOUS STRUCTURES: Moderate to severe narrowing and spurring in both hip joints. Multilevel spurring in the thoracolumbar spine. Surgical change posterior lumbosacral junction redemonstrated. OTHER: Focal skin thickening in the anterior abdominal wall of the bilateral mid abdomen is redemonst rated. Mild/moderate calcified plaque of the aorta extends into branch vessels. IMPRESSION: Evidence of chronic medical renal disease is new from 2019 CT. No acute findings are tess dent on noncontrast CT to account for patient's symptoms.
[2023-12-11 01:22] LABS: Appearance,Urine Clear (Clear); Bilirubin,Urine Negative (Negative); Blood,Urine Trace (Negative); Budding Yeast,Urine Rare /hpf; Color,Urine Colorless; Glucose,Urine (UA) 4+ (Negative); Ketones,Urine Negative (Negative); Leukocyte Esterase,Urine Negative (Negative); Mucus,Urine Rare /hpf; Nitrite,Urine Negative (Negative); Protein,Urine 3+ (Negative); RBC,Urine 1 /hpf (0-5); Specific Gravity,Urine 1.013 (1.001-1.035); Squamous Epithelial Cell,Urine <1 /hpf (0-4); Urobilinogen,Urine <2.0 mg/dL (<2.0); WBC,Urine 1 /hpf (0-5)
[2023-12-11 01:50] VITALS: BP 172/89; PULSE 68; RESP 18
== END 2023-12-11 03:14 | disposition home or self-care (01) ==
LOC: EC 20:44
DX: M54.6 Pain in thoracic spine (principal); R53.1 Weakness; R07.9 Chest pain, unspecified; R41.82 Altered mental status, unspecified; Z86.16 Personal history of COVID-19
CPT/HCPCS: 36415; 93005; 83880; 80053; 83605; 83735; 84100; 84484; 85025; 85610; 85730; 81001; 71250; 74176; 99285; 96374; 96375; 96361; J2405; C9113

== ENCOUNTER 2024-02-08 19:41 | Emergency (ER) | payer MEDICARE, OTHER ==
[2024-02-08 19:56] VITALS: TEMP 98.1
--- NOTE | 2024-02-08 20:01 | ED ---
Neuro HPI - General Source: family, RN notes reviewed Mode of arrival: wheelchair Limitations: no limitations <Magaly Marrero - Last Filed: 02/12/24 15:32> - History of Present Illness Is the patient presenting with stroke symptoms?: Yes <Ariel Davila - Last Filed: 02/29/24 06:53> - General Chief Complaint: Neuro Symptoms/Deficit Stated Complaint: AMS,Slurred Speech Time Seen by Provider: 02/08/24 20:00 - History of Present Illness Initial Comments: Quick note: 78-year-old male presented to the ER with a chief complaint of slurred speech. Family is providing HPI in its entirety. Family report around 1 PM he laid down for a nap and when he woke up he did not know where he was and was slurring his speech. Patient does have stage V kidney disease. Family deny any facial droop or one-sided weakness. (Magaly Marrero) - Related Data Home Medications: Home Medications Medication Instructions Recorded Confirmed DULoxetine HCL [Cymbalta] 30 mg PO HS 03/13/16 02/24/24 Isosorbide Mononitrate ER [Imdur] 60 mg PO DAILY 03/13/16 02/24/24 levETIRAcetam [Keppra] 500 mg PO BID 12/11/20 02/24/24 Atorvastatin [Lipitor] 20 mg PO HS 07/18/21 02/24/24 Insulin Aspart [NovoLOG Flexpen] 10 units SQ AC-BID@0800,1200 07/28/21 02/24/24 Insulin Aspart [NovoLOG Flexpen] 12 units SQ W/SUPPER 07/28/21 02/24/24 Vitamin E 400 unit PO DAILY 11/10/21 02/24/24 Insulin Aspart [NovoLOG Flexpen] See Protocol SQ TID-W/MEALS PRN 02/02/22 02/24/24 Ergocalciferol (Vitamin D2) 1,250 mcg PO MO 02/24/24 02/24/24 [Drisdol (50,000 Iu)] Previous Rx's Medication Instructions Recorded Clopidogrel [Plavix] 75 mg PO DAILY #30 tab 07/11/20 Insulin Glargine,Hum.rec.anlog 30 units SQ DAILY #0 11/12/21 [Lantus Solostar Pen] NIFEdipine XL [Procardia XL] 120 mg PO DAILY 30 Days #30 tab 12/08/23 Sodium Bicarbonate Tab 650 mg PO BID #30 tab 12/08/23 carvediloL [Coreg*] 12.5 mg PO BID-W/MEALS #60 tab 12/08/23 Allergies/Adverse Reactions: Allergies Allergy/AdvReac Type Severity Reaction Status Date / Time No Known Allergies Allergy Verified 02/24/24 15:19 Review of Systems ROS Other: All systems not noted in ROS Statement are negative. <Magaly Marrero - Last Filed: 02/12/24 15:32> ROS Other: All systems not noted in ROS Statement are negative. <Ariel Davila - Last Filed: 02/29/24 06:53> ROS Statement: Those systems with pertinent positive or pertinent negative responses have been documented in the HPI. General Exam Limitations: no limitations <Magaly Marrero - Last Filed: 02/12/24 15:32> Limitations: no limitations General appearance: alert, in no apparent distress Head exam: Present: atraumatic, normocephalic Eye exam: Present: normal appearance. Absent: scleral icterus, conjunctival injection ENT exam: Present: mucous membranes dry Neck exam: Present: normal inspection, full ROM Respiratory exam: Present: normal lung sounds bilaterally. Absent: respiratory distress, wheezes, rales, rhonchi, stridor, accessory muscle use Cardiovascular Exam: Present: regular rate, normal rhythm, normal heart sounds. Absent: systolic murmur, diastolic murmur, rubs, gallop GI/Abdominal exam: Present: soft. Absent: distended, tenderness, guarding, rebound, rigid, mass Extremities exam: Present: normal inspection, normal capillary refill. Absent: calf tenderness Back exam: Present: normal inspection Neurological exam: Present: alert, oriented X3, CN II-XII intact. Absent: motor sensory deficit Skin exam: Present: warm, dry, intact, normal color. Absent: rash <Ariel Davila - Last Filed: 02/29/24 06:53> - General Exam Comments Initial Comments: Visual Physical Exam Vital signs reviewed General: Well-appearing, nontoxic, no acute distress. Head: Normocephalic, atraumatic Eyes: PERRLA, EOMI ENT: Airway patent Chest: Nonlabored breathing Skin: No visual rash, normal skin tone Neuro: Alert and oriented 3 Musculoskeletal: No gross abnormalities (Magaly Marrero) Stroke MDM - Lab Data Result diagrams: 02/08/24 20:52 02/08/24 20:52 <ElidaMagaly - Last Filed: 02/12/24 15:32> - Lab Data Result diagrams: 02/08/24 20:52 02/08/24 20:52 <ArmanijyotiAriel - Last Filed: 02/29/24 06:53> - Lab Data Lab Results 02/08/24 02/08/24 02/08/24 Range/Units 20:52 20:52 20:52 WBC 5.8 (3.8-10.6) k/uL RBC 4.07 L (4.30-5.90) m/uL Hgb 11.9 L (13.0-17.5) gm/dL Hct 37.5 L (39.0-53.0) % MCV 92.1 (80.0-100.0) fL MCH 29.2 (25.0-35.0) pg MCHC 31.7 (31.0-37.0) g/dL RDW 14.0 (11.5-15.5) % Plt Count 286 (150-450) k/uL MPV 7.8 Neutrophils % 66 % Lymphocytes % 23 % Monocytes % 7 % Eosinophils % 2 % Basophils % 1 % Neutrophils # 3.8 (1.3-7.7) k/uL Lymphocytes # 1.3 (1.0-4.8) k/uL Monocytes # 0.4 (0-1.0) k/uL Eosinophils # 0.1 (0-0.7) k/uL Basophils # 0.1 (0-0.2) k/uL PT 10.4 (10.0-12.5) sec INR 0.9 (<1.2) APTT 24.5 (22.0-30.0) sec Sodium 135 L (137-145) mmol/L Potassium 4.4 (3.5-5.1) mmol/L Chloride 107 (98-107) mmol/L Carbon Dioxide 21 L (22-30) mmol/L Anion Gap 7 mmol/L BUN 42 H (9-20) mg/dL Creatinine 4.09 H (0.66-1.25) mg/dL Est GFR (CKD-EPI)AfAm 15 (>60 ml/min/1.73 sqM) Est GFR (CKD-EPI)NonAf 13 (>60 ml/min/1.73 sqM) Glucose 255 H (74-99) mg/dL Calcium 8.2 L (8.4-10.2) mg/dL Magnesium 1.9 (1.6-2.3) mg/dL Total Bilirubin 0.3 (0.2-1.3) mg/dL AST 23 (17-59) U/L ALT 14 (4-49) U/L Alkaline Phosphatase 121 (38-126) U/L Troponin I (0.000-0.034) ng/mL Total Protein 6.0 L (6.3-8.2) g/dL Albumin 3.3 L (3.5-5.0) g/dL 02/08/24 Range/Units 20:52 WBC (3.8-10.6) k/uL RBC (4.30-5.90) m/uL Hgb (13.0-17.5) gm/dL Hct (39.0-53.0) % MCV (80.0-100.0) fL MCH (25.0-35.0) pg MCHC (31.0-37.0) g/dL RDW (11.5-15.5) % Plt Count (150-450) k/uL MPV Neutrophils % % Lymphocytes % % Monocytes % % Eosinophils % % Basophils % % Neutrophils # (1.3-7.7) k/uL Lymphocytes # (1.0-4.8) k/uL Monocytes # (0-1.0) k/uL Eosinophils # (0-0.7) k/uL Basophils # (0-0.2) k/uL PT (10.0-12.5) sec INR (<1.2) APTT (22.0-30.0) sec Sodium (137-145) mmol/L Potassium (3.5-5.1) mmol/L Chloride (98-107) mmol/L Carbon Dioxide (22-30) mmol/L Anion Gap mmol/L BUN (9-20) mg/dL Creatinine (0.66-1.25) mg/dL Est GFR (CKD-EPI)AfAm (>60 ml/min/1.73 sqM) Est GFR (CKD-EPI)NonAf (>60 ml/min/1.73 sqM) Glucose (74-99) mg/dL Calcium (8.4-10.2) mg/dL Magnesium (1.6-2.3) mg/dL Total Bilirubin (0.2-1.3) mg/dL AST (17-59) U/L ALT (4-49) U/L Alkaline Phosphatase (38-126) U/L Troponin I <0.012 (0.000-0.034) ng/mL Total Protein (6.3-8.2) g/dL Albumin (3.5-5.0) g/dL - Medical Decision Making I performed the quick note portion of this chart. Electronically signed by Magaly Marrero PA-C (Magaly Marrero) I had relatively prolonged discussion with patient and family at the bedside discussing the patient's exam results, his studies, his laboratory results. At this point they would like to go home and follow-up in the morning as the patient has vein mapping in order to get his hemodialysis started. Family states that he is much closer to his baseline status now. They will return if any symptoms recur or new symptoms develop. The patient had CT of the brain that I interpreted as negative for acute bony trauma or acute intracranial hemorrhage Was pt. sent in by a medical professional or institution (CALLI Kelley, [employer], urgent care, hospital, or [place] health care facility...) When possible be specific @ -[No] Did you speak to anyone other than the patient for history (EMS, parent, family, police, friend...)? What history was obtained from this source @ -[Patient's family contributed to history Did you review nursing and triage notes (agree or disagree)? Why? @ -[I reviewed and agree with nursing and triage notes] Were old charts reviewed (outside hosp., previous admission, EMS record, old EKG, old radiological studies, urgent care reports/EKG's, [place] [facility] facility records)? Report findings @ -[No old charts were reviewed] Differential Diagnosis (chest pain, altered mental status, abdominal pain women, abdominal pain men, vaginal bleeding, weakness, fever, dyspnea, syncope, headache, dizziness, GI bleed, back pain, seizure, CVA, palpatations, mental health, musculoskeletal)? @ -[Differential Altered Mental Status: Hypoglycemia, DKA, hypercapnia, ETOH, overdose, CO poisoning, trauma, myxedema coma, HTN encephalopathy, infection, encephalitis, psychosis, intercranial hemorrhage, hepatic encephalopathy, meningitis, CVA, this is not meant to be an all-inclusive list EKG interpreted by me (3pts min.). @ -[As above] X-rays interpreted by me (1pt min.). @ -[None done] CT interpreted by me (1pt min.). @ -[I interpreted as above U/S interpreted by me (1pt. min.). @ -[None done] What testing was considered but not performed or refused? (CT, X-rays, U/S, labs)? Why? @ -[None] What meds were considered but not given or refused? Why? @ -[None] Did you discuss the management of the patient with other professionals (professionals i.e. , PA, [employer]JUSTER, lab, RT, psych nurse, social director, customer relations representative, teacher, electorate officer, returned case inspector)? Give summary @ -[No] Was smoking cessation discussed for >3mins.? @ -[No] Was critical care preformed (if so, how long)? @ -[No] Were there social determinants of health that impacted care today? How? (Homelessness, low income, unemployed, alcoholism, drug addiction, transportation, low edu. Level, literacy, decrease access to med. care, retirement, rehab)? @ -[No] Was there de-escalation of care discussed even if they declined (Discuss DNR or withdrawal of care, Hospice)? DNR status @ -[No] What co-morbidities impacted this encounter? (DM, HTN, Smoking, COPD, CAD, Cancer, CVA, ARF, Chemo, Hep., AIDS, mental health diagnosis, sleep apnea, morbid obesity)? @ -[Diabetes, hypertension, chronic renal failure Was patient admitted / discharged? Hospital course, mention meds given and route, prescriptions, significant lab abnormalities, going to OR and other pertinent info. @ -[As above Undiagnosed new problem with uncertain prognosis? @ -[No] Drug Therapy requiring intensive monitoring for toxicity (Heparin, Nitro, Insulin, Cardizem)? @ -[No] Were any procedures done? @ -[No] Diagnosis/symptom? @ -[Altered mental status, resolved Dysarthria, resolved Chronic renal failure Hyperglycemia acute on chronic, Acute, or Chronic, or Acute on Chronic? @ -[Acute Uncomplicated (without systemic symptoms) or Complicated (systemic symptoms)? @ -[Complicated by mental status change Side effects of treatment? @ -[No] Exacerbation, Progression, or Severe Exacerbation? @ -[No] Poses a threat to life or bodily function? How? (Chest pain, [place], [place], pneumonia, PE, COPD, DKA, ARF, appy, cholecystitis, CVA, Diverticulitis, Homicidal, Suicidal, threat to staff... and all critical care pts) @ -[There is risk, this was discussed as above, they will have close follow-up and return if any symptoms recur or new symptoms develop (Ariel Davila) Past Medical History Past Medical History: CVA/TIA, Diabetes Mellitus, Hyperlipidemia, Hypertension, Liver Disease, Renal Disease, Sleep Apnea/CPAP/BIPAP Additional Past Medical History / Comment(s): ARTHRITIS, kidney stones, possible dementia, kidney failure, neuropathy alia legs, carpal tunnel. CVA-jul 17 balance issues,speech impairment,vision impairment, receives injections to eyes r/t bleeding ,COVID 07/28/2022 History of Any Multi-Drug Resistant Organisms: None Reported Past Surgical History: Back Surgery Additional Past Surgical History / Comment(s): MASS REMOVED FROM BACK OF HEAD, eye surgery, Past Anesthesia/Blood Transfusion Reactions: No Reported Reaction Past Psychological History: Depression Smoking Status: Never smoker Past Alcohol Use History: None Reported Past Drug Use History: None Reported - Past Family History Father Family Medical History: Diabetes Mellitus Mother Family Medical History: Diabetes Mellitus Brother(s) Family Medical History: Cancer Sister(s) Family Medical History: Cancer <Magaly Marrero - Last Filed: 02/12/24 15:32> Course Vital Signs 02/08/24 02/08/24 02/09/24 19:52 23:52 00:10 Temperature 98.1 F Pulse Rate 62 64 63 Respiratory 18 14 12 Rate Blood Pressure 156/71 182/80 175/84 O2 Sat by Pulse 98 96 97 Oximetry 02/09/24 01:20 Temperature Pulse Rate 64 Respiratory 18 Rate Blood Pressure 166/83 O2 Sat by Pulse 98 Oximetry Disposition Time of Disposition: :32 <Magaly Marrero - Last Filed: 02/12/24 15:32> Is patient prescribed a controlled substance at d/c from ED?: No <Ariel Davila - Last Filed: 02/29/24 06:53> Clinical Impression: Transient amnesia Disposition: HOME SELF-CARE Condition: Good Instructions (If sedation given, give patient instructions): Transient Global Amnesia (ED) Referrals: Dennis Santana DO [Primary Care Provider] - 1-2 days
--- NOTE | 2024-02-08 20:57 | CT ---
EXAMINATION TYPE: CT brain wo con CT DLP: 1181.4 mGycm, Automated exposure control for dose reduction was used. DATE OF EXAM: 02/08/2024 8:20 PM COMPARISON: 08/07/2022. CLINICAL INDICATION:Male, 78 years old with history of Neuro deficit, acute, stroke suspected, AMS. w eakness TECHNIQUE: Brain: Axial CT images of the brain were obtained with coronal and sagittal reformats created and rev iewed. Contrast used: None. Oral contrast used: None. FINDINGS: Brain: Extra-axial spaces: No abnormal extra-axial fluid collections. Ventricular system: Within normal limits Cerebral parenchyma: Encephalomalacia of the bilateral parietal/occipital lobes. No acute intraparenc hymal hemorrhage or mass effect. The remainder of the hernandez-white junctions are well differentiated. Cerebellum: Unremarkable. Mass effect: No evidence of midline shift. Intracranial vasculature: Atherosclerotic calcifications of the intracranial vessels. Soft tissues: Normal. Calvarium/osseous structures: No depressed skull fracture. Paranasal sinuses and mastoid air cells: Mild scattered paranasal sinus disease. Visualized orbits: Bilaterally aphakia. IMPRESSION: 1. No acute intracranial process. 2. Remote injury of the bilateral parietal/occipital lobes. 3. Nonspecific white matter changes, likely secondary to chronic small vessel ischemic disease.
[2024-02-08 21:22] LABS: Basophils # (A) 0.1 k/uL (0-0.2); Basophils % (A) 1 %; Eosinophils # (A) 0.1 k/uL (0-0.7); Eosinophils % (A) 2 %; HCT 37.5 % (39.0-53.0); HGB 11.9 gm/dL (13.0-17.5); Lymphocytes # (A) 1.3 k/uL (1.0-4.8); Lymphocytes % (A) 23 %; MCH 29.2 pg (25.0-35.0); MCHC 31.7 g/dL (31.0-37.0); MCV 92.1 fL (80.0-100.0); Mean Platelet Volume 7.8; Monocytes # (A) 0.4 k/uL (0-1.0); Monocytes % (A) 7 %; Neutrophils # (A) 3.8 k/uL (1.3-7.7); Neutrophils % (A) 66 %; Platelet Count 286 k/uL (150-450); RBC 4.07 m/uL (4.30-5.90); WBC 5.8 k/uL (3.8-10.6)
[2024-02-08 21:25] LABS: ALT 14 U/L (4-49); AST 23 U/L (17-59); African American GFR (CKD) 15 (>60 ml/min/1.73 sqM); Albumin 3.3 g/dL (3.5-5.0); Alkaline Phosphatase 121 U/L (38-126); Anion Gap 7 mmol/L; Blood Urea Nitrogen 42 mg/dL (9-20); Calcium 8.2 mg/dL (8.4-10.2); Carbon Dioxide 21 mmol/L (22-30); Chloride 107 mmol/L (98-107); Glucose 255 mg/dL (74-99); Magnesium 1.9 mg/dL (1.6-2.3); Non-African American GFR(CKD) 13 (>60 ml/min/1.73 sqM); Potassium 4.4 mmol/L (3.5-5.1); Sodium 135 mmol/L (137-145); Total Bilirubin 0.3 mg/dL (0.2-1.3)
[2024-02-08 21:27] LABS: INR 0.9 (<1.2); Partial Thromboplastin Time 24.5 sec (22.0-30.0); Prothrombin Time 10.4 sec (10.0-12.5)
[2024-02-09 00:07] VITALS: PULSE 64
[2024-02-09] MEDS: INSULIN REGULAR 100 UNIT/ML VIAL (IV) SQ STA (01:06)
[2024-02-09] MEDS: ACETAMINOPHEN TAB 325 MG TAB PO STA (01:07)
[2024-02-09 01:51] VITALS: BP 166/83; RESP 18
== END 2024-02-09 01:21 | disposition home or self-care (01) ==
LOC: EC 19:41
DX: R41.3 Other amnesia (principal)
CPT/HCPCS: 36415; 70450; 80053; 83735; 84484; 85025; 85610; 85730; 93005; 99285

== ENCOUNTER 2024-02-24 13:06 | Observation (INO) | payer MEDICARE, OTHER ==
--- NOTE | 2024-02-24 14:05 | ED ---
Recheck HPI - General Source: family, RN notes reviewed Mode of arrival: wheelchair Limitations: language barrier <Magaly Marrero - Last Filed: 02/24/24 14:03> <Amanda Cassidy - Last Filed: 02/25/24 00:54> - General Chief Complaint: Recheck/Abnormal Lab/Rx Stated Complaint: Abn labs Time Seen by Provider: 02/24/24 14:03 - History of Present Illness Initial Comments: Quick note: 78-year-old male presented to the ER with a chief complaint of fistula complication. Patient is 1 week status post Endo fistula creation of left arm. Ultrasound completed today found a pseudoaneurysm off of the mid left brachial artery. Patient sent here by doctor Dr. Mcrae. Family denies any fever or chills. Patient is complaining of left arm pain. (Magaly Marrero) 78-year-old male with CVA, diabetes, hypertension, hyperlipidemia chronic kidney failure who presents emergency department with postop complication of his fistula. Daughter is at bedside and provides the history. States the patient had Endofistula creation [address] Mendieta. This was done in [place] on the . Patient had a 1 week postop ultrasound completed today. They were told that the study was abnormal and they needed to go to the closest emergency department. Patient has had pain and swelling to that left arm. He does not speak much [place] Citizen and therefore history is limited (Amanda Cassidy) - Related Data Home Medications Medication Instructions Recorded Confirmed DULoxetine HCL [Cymbalta] 30 mg PO HS 03/13/16 02/24/24 Isosorbide Mononitrate ER [Imdur] 60 mg PO DAILY 03/13/16 02/24/24 levETIRAcetam [Keppra] 500 mg PO BID 12/11/20 02/24/24 Atorvastatin [Lipitor] 20 mg PO HS 07/18/21 02/24/24 Insulin Aspart [NovoLOG Flexpen] 10 units SQ AC-BID@0800,1200 07/28/21 02/24/24 Insulin Aspart [NovoLOG Flexpen] 12 units SQ W/SUPPER 07/28/21 02/24/24 Vitamin E 400 unit PO DAILY 11/10/21 02/24/24 Insulin Aspart [NovoLOG Flexpen] See Protocol SQ TID-W/MEALS PRN 02/02/22 02/24/24 Ergocalciferol (Vitamin D2) 1,250 mcg PO MO 02/24/24 02/24/24 [Drisdol (50,000 Iu)] Previous Rx's Medication Instructions Recorded Clopidogrel [Plavix] 75 mg PO DAILY #30 tab 07/11/20 Insulin Glargine,Hum.rec.anlog 30 units SQ DAILY #0 11/12/21 [Lantus Solostar Pen] NIFEdipine XL [Procardia XL] 120 mg PO DAILY 30 Days #30 tab 12/08/23 Sodium Bicarbonate Tab 650 mg PO BID #30 tab 12/08/23 carvediloL [Coreg*] 12.5 mg PO BID-W/MEALS #60 tab 12/08/23 Allergies Allergy/AdvReac Type Severity Reaction Status Date / Time No Known Allergies Allergy Verified 02/24/24 15:19 Review of Systems ROS Other: All systems not noted in ROS Statement are negative. <Magaly Marrero - Last Filed: 02/24/24 14:03> ROS Other: All systems not noted in ROS Statement are negative. <Amanda Cassidy - Last Filed: 02/25/24 00:54> ROS Statement: Those systems with pertinent positive or pertinent negative responses have been documented in the HPI. Past Medical History Past Medical History: CVA/TIA, Diabetes Mellitus, Hyperlipidemia, Hypertension, Liver Disease, Renal Disease, Sleep Apnea/CPAP/BIPAP Additional Past Medical History / Comment(s): ARTHRITIS, kidney stones, possible dementia, kidney failure, neuropathy alia legs, carpal tunnel. CVA-oct balance issues,speech impairment,vision impairment, receives injections to eyes r/t bleeding ,COVID 07/28/2022 History of Any Multi-Drug Resistant Organisms: None Reported Past Surgical History: Back Surgery Additional Past Surgical History / Comment(s): MASS REMOVED FROM BACK OF HEAD, eye surgery, Past Anesthesia/Blood Transfusion Reactions: No Reported Reaction Past Psychological History: Depression Smoking Status: Never smoker Past Alcohol Use History: None Reported Past Drug Use History: None Reported - Past Family History Father Family Medical History: Diabetes Mellitus Mother Family Medical History: Diabetes Mellitus Brother(s) Family Medical History: Cancer Sister(s) Family Medical History: Cancer <Magaly Marrero - Last Filed: 02/24/24 14:03> General Exam Limitations: no limitations <Magaly Marrero - Last Filed: 02/24/24 14:03> Limitations: physical limitation General appearance: alert, in no apparent distress Head exam: Present: atraumatic, normocephalic, normal inspection Eye exam: Present: normal appearance, PERRL, EOMI. Absent: scleral icterus, conjunctival injection, periorbital swelling ENT exam: Present: normal exam, mucous membranes moist Neck exam: Present: normal inspection. Absent: tenderness, meningismus, lymphadenopathy Respiratory exam: Present: normal lung sounds bilaterally. Absent: respiratory distress, wheezes, rales, rhonchi, stridor Cardiovascular Exam: Present: regular rate, normal rhythm, normal heart sounds. Absent: systolic murmur, diastolic murmur, rubs, gallop, clicks GI/Abdominal exam: Present: soft, normal bowel sounds. Absent: distended, tenderness, guarding, rebound, rigid Extremities exam: Present: other (Patient has a palpable thrill over the left antecubital fossa. There is swelling to the left arm. No erythema. Compartments are soft) <Amanda Cassidy A - Last Filed: 02/25/24 00:54> - General Exam Comments Initial Comments: Visual Physical Exam Vital signs reviewed General: Well-appearing, nontoxic, no acute distress. Head: Normocephalic, atraumatic Eyes: PERRLA, EOMI ENT: Airway patent Chest: Nonlabored breathing Skin: No visual rash, normal skin tone Neuro: Alert and oriented 3 Musculoskeletal: No gross abnormalities (Magaly Marrero) Course Vital Signs 02/24/24 02/24/24 02/24/24 13:18 18:24 20:39 Temperature 97.7 F Pulse Rate 60 67 74 Respiratory 18 14 18 Rate Blood Pressure 209/87 205/71 174/69 O2 Sat by Pulse 100 98 96 Oximetry 02/24/24 21:57 Temperature 97.6 F Pulse Rate 75 Respiratory 18 Rate Blood Pressure 181/72 O2 Sat by Pulse 96 Oximetry Medical Decision Making <Magaly Marrero - Last Filed: 02/24/24 14:03> - Lab Data Result diagrams: 02/24/24 19:26 02/24/24 18:35 <Amanda Cassidy - Last Filed: 02/25/24 00:54> - Medical Decision Making I performed the quick note portion of this chart. Electronically signed by Magaly Marrero PA-C (Magaly Marrero) Was pt. sent in by a medical professional or institution ([facility], STRUCTURER, urgent care, hospital, or skilled nursing...) When possible be specific @ -Patient was sent in from his nephrology office Did you speak to anyone other than the patient for history (EMS, parent, family, police, friend...)? What history was obtained from this source @ -I spoke with the patient's daughter for history Did you review nursing and triage notes (agree or disagree)? Why? @ -I reviewed and agree with nursing and triage notes Were old charts reviewed (outside hosp., previous admission, EMS record, old EKG, old radiological studies, urgent care reports/EKG's, skilled nursing records)? Report findings @ -No old charts were reviewed Differential Diagnosis (chest pain, altered mental status, abdominal pain women, abdominal pain men, vaginal bleeding, weakness, fever, dyspnea, syncope, headache, dizziness, GI bleed, back pain, seizure, CVA, palpatations, mental health, musculoskeletal)? @ -DVT, pseudoaneurysm, thrombosis EKG interpreted by me (3pts min.). @ -Not done X-rays interpreted by me (1pt min.). @ -None done CT interpreted by me (1pt min.). @ -None done U/S interpreted by me (1pt. min.). @ -Yes and demonstrates a pseudoaneurysm What testing was considered but not performed or refused? (CT, X-rays, U/S, labs)? Why? @ -None What meds were considered but not given or refused? Why? @ -None Did you discuss the management of the patient with other professionals (professionals i.e. [facility] Kelley, STRUCTURER, lab, RT, psych nurse, school social worker, outdoor studies professor, teacher, bank secrecy act officer, keycase assembler)? Give summary @ -I spoke with Dr. Johns. He is able to consult on the patient in the morning Was smoking cessation discussed for >3mins.? @ -No Was critical care preformed (if so, how long)? @ -No Were there social determinants of health that impacted care today? How? (Home lessness, low income, unemployed, alcoholism, drug addiction, transportation, low edu. Level, literacy, decrease access to med. care, penitentiary, rehab)? @ -Patient does not speak much [place] Citizen Was there de-escalation of care discussed even if they declined (Discuss DNR or withdrawal of care, Hospice)? DNR status @ -No What co-morbidities impacted this encounter? (DM, HTN, Smoking, COPD, CAD, Cancer, CVA, ARF, Chemo, Hep., AIDS, mental health diagnosis, sleep apnea, morbid obesity)? @ -Chronic kidney disease Was patient admitted / discharged? Hospital course, mention meds given and route, prescriptions, significant lab abnormalities, going to OR and other pertinent info. @ -Upon arrival patient seen and evaluated in hallway 18. Thorough history and physical exam was performed. Ultrasound was completed at our facility since family does not have copies of the imaging that was done. Ultrasound does demonstrate a pseudoaneurysm. Called and spoke with Dr. Mendieta who did the procedure. He states that the patient must be seen by vascular. He is requesting Dr. Johns. I did call and speak with Dr. Johns. He recommends wrapping the upper extremity with a slight compression dressing. Ultrasound will be repeated in the morning. He will evaluate the patient. Patient was agreeable to this plan and is awaiting a bed in stable condition Undiagnosed new problem with uncertain prognosis? @ -No Drug Therapy requiring intensive monitoring for toxicity (Heparin, Nitro, Insulin, Cardizem)? @ -No Were any procedures done? @ -No Diagnosis/symptom? @ -Acute pseudoaneurysm left brachial artery, end-stage renal disease Acute, or Chronic, or Acute on Chronic? @ -Acute Uncomplicated (without systemic symptoms) or Complicated (systemic symptoms)? @ -Complicated Side effects of treatment? @ -No Exacerbation, Progression, or Severe Exacerbation? @ -No Poses a threat to life or bodily function? How? (Chest pain, [place], [place], pneumonia, PE, COPD, DKA, ARF, appy, cholecystitis, CVA, Diverticulitis, Homicidal, Suicidal, threat to staff... and all critical care pts) @ -No (Amanda Cassidy) - Lab Data Lab Results 02/24/24 Range/Units 18:35 Sodium 138 (137-145) mmol/L Potassium 4.3 (3.5-5.1) mmol/L Chloride 113 H (98-107) mmol/L Carbon Dioxide 23 (22-30) mmol/L Anion Gap 2 mmol/L BUN 44 H (9-20) mg/dL Creatinine 4.02 H (0.66-1.25) mg/dL Est GFR (CKD-EPI)AfAm 16 (>60 ml/min/1.73 sqM) Est GFR (CKD-EPI)NonAf 13 (>60 ml/min/1.73 sqM) Glucose 146 H (74-99) mg/dL Calcium 8.3 L (8.4-10.2) mg/dL Phosphorus 4.6 H (2.5-4.5) mg/dL Magnesium 2.0 (1.6-2.3) mg/dL Total Bilirubin 0.4 (0.2-1.3) mg/dL AST 24 (17-59) U/L ALT 11 (4-49) U/L Alkaline Phosphatase 119 (38-126) U/L Total Protein 5.6 L (6.3-8.2) g/dL Albumin 3.1 L (3.5-5.0) g/dL Disposition <Magaly Marrero - Last Filed: 02/24/24 14:03> Is patient prescribed a controlled substance at d/c from ED?: No Time of Disposition: 18:54 Decision to Admit Reason: Admit from EC Decision Date: 02/24/24 Decision Time: 18:54 <Amanda Cassidy - Last Filed: 02/25/24 00:54> Clinical Impression: Pseudoaneurysm Disposition: ADMITTED IP TO THIS [facility] Condition: Stable
--- NOTE | 2024-02-24 16:21 | US ---
EXAMINATION TYPE: US upper ext pseudo LT DATE OF EXAM: 02/24/2024 COMPARISON: NONE CLINICAL INDICATION: Male, 78 years old with history of pain; Patient speaks broken Maltese, had a va scular procedure in left upper arm approximately 1 week ago, pain now, EC chart states brachial pseud o TECHNIQUE: Brachial vessel scan in left arm FINDINGS: Grades 1 Thru 6 Home Teacher notes: Possible 1.1 x 0.9cm pseudoaneurysm seen mid level brachial vessels, probable narr ow neck = 1.4mm. IMPRESSION: Findings suggest a 1.1 cm pseudoaneurysm at the mid brachial artery and a narrow 1.4 mm n radha.
[2024-02-24] MEDS ORDERED: NALOXONE 0.4 MG/ML 1 ML VIAL IV PRN (18:54)
[2024-02-24 19:32] LABS: Basophils # (A) 0.1 k/uL (0-0.2); Basophils % (A) 1 %; Eosinophils # (A) 0.1 k/uL (0-0.7); Eosinophils % (A) 2 %; HCT 33.3 % (39.0-53.0); HGB 10.7 gm/dL (13.0-17.5); Lymphocytes # (A) 1.5 k/uL (1.0-4.8); Lymphocytes % (A) 24 %; MCH 29.9 pg (25.0-35.0); MCHC 32.2 g/dL (31.0-37.0); MCV 92.8 fL (80.0-100.0); Mean Platelet Volume 7.8; Monocytes # (A) 0.4 k/uL (0-1.0); Monocytes % (A) 7 %; Neutrophils # (A) 4.1 k/uL (1.3-7.7); Neutrophils % (A) 65 %; Platelet Count 277 k/uL (150-450); RBC 3.58 m/uL (4.30-5.90); RDW 14.2 % (11.5-15.5); WBC 6.4 k/uL (3.8-10.6)
[2024-02-24] MEDS: hydrALAZINE HCL 20 MG/ML 1 ML VIAL IVP STA (19:56)
[2024-02-24 20:02] LABS: ALT 11 U/L (4-49); AST 24 U/L (17-59); African American GFR (CKD) 16 (>60 ml/min/1.73 sqM); Albumin 3.1 g/dL (3.5-5.0); Alkaline Phosphatase 119 U/L (38-126); Anion Gap 2 mmol/L; Blood Urea Nitrogen 44 mg/dL (9-20); Calcium 8.3 mg/dL (8.4-10.2); Carbon Dioxide 23 mmol/L (22-30); Chloride 113 mmol/L (98-107); Glucose 146 mg/dL (74-99); Non-African American GFR(CKD) 13 (>60 ml/min/1.73 sqM); Phosphorus 4.6 mg/dL (2.5-4.5); Potassium 4.3 mmol/L (3.5-5.1); Sodium 138 mmol/L (137-145); Total Bilirubin 0.4 mg/dL (0.2-1.3); Total Protein 5.6 g/dL (6.3-8.2)
[2024-02-24] MEDS ORDERED: DEXTROSE 50% SYRINGE 50 ML IVP PRN ×2 (20:31)
--- NOTE | 2024-02-24 20:36 | P.HPIM ---
History of Present Illness H&P Date: 02/24/24 Chief Complaint: Left and a fistula aneurysm This is a 78-year-old patient of Dr. Santana. Chronic stable medical conditions include hyperlipidemia, diabetes, obstructive sleep apnea, osteoarthritis, kidney stones, cognitive impairment-dementia. June 2020 - acute cereb rovascular accident involving the left parietal lobe. Had a loop recorder seizures. Visit his and daughter. Not a good historian Patient follows with program development specialist Dr. Stevens. Patient was sent down to [place], where he underwent Endo fistula placement by -a week ago. They are a follow-up visit today. Patient is found to have a mid left brachial aneurysm. Patient had pain and swelling in the left upper arm with bruising. He was sent here for admission. ER spoke to Dr. Johns from vascular who will attend to the issue. Patient is accompanied by his and daughter in the ER. Appetite fair. No fever no chills. Review of systems: GEN.: Tired EYES: None HEENT: None NECK: None RESPIRATORY: None CARDIOVASCULAR: As above GASTROINTESTINAL: None GENITOURINARY: None MUSCULOSKELETAL: As above LYMPHATICS: None HEMATOLOGICAL: None PSYCHIATRY: forgetful NEUROLOGICAL: weakness on the right side Past medical history to include: Diabetes, hyperlipidemia, hypertension, obstructive sleep apnea, osteoarthritis, kidney stones, cognitive impairment, stroke hypertension with right-sided weakness, depression, seizure Social history: No history of smoking or alcohol. Lives with his and daughter. Does use a walker Physical examination: VITAL SIGNS: 97.7, 67, 14, 205 x 71, 98% room air GENERAL: Resting in bed, comfortable EYES: Pupils equal. Conjunctiva normal. HEENT: External appearance of nose and ears normal, oral cavity grossly normal. NECK: JVD not raised; masses not palpable. HEART: First and second heart sounds are normal; no edema. EXTREMITY: Bruising along the inner side on the left arm especially upper arm. Slight tenderness. LUNGS: Respiratory rate normal; clear to auscultation. ABDOMEN: Soft, no tenderness no guarding rigidity, liver spleen not palpable, no masses palpable. PSYCH: answering simple questions NEUROLOGICAL: [Cranial nerves grossly intact; no facial asymmetry, power 4/5 on the right side LYMPHATICS: No lymph nodes palpable in the axilla and neck INVESTIGATIONS, reviewed in the clinical context: February 24, 2024: White count 6.4 hemoglobin 10.7 platelets 277 sodium 138 potassium 4.3. 44 creatinine 4.02. Phosphorus 4.6 Duplex scan upper extremity1.1 x 0.9 cm pseudoaneurysm in the mid level brachial artery. Neck 1.4 mm Previous labs 2D echocardiogram: [November 2023] EF 65 to 70%. Previous labs: Creatinine 2.46 on January 2023 Assessment and plan: -1.1 x 0.9 cm acute pseudoaneurysm in the mid level brachial artery. Neck 1.4 mm, following Endo vascular fistula creation by in the left arm. Patient has some bruising and tenderness. Vascular Dr. 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 On Levemir, NovoLog Follow Accu-Cheks closely. 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 Stevens Follow renal function. -Full code Discussed with patient, daughter and the at the bedside. Past Medical History Past Medical History: CVA/TIA, Diabetes Mellitus, Hyperlipidemia, Hypertension, Liver Disease, Renal Disease, Sleep Apnea/CPAP/BIPAP Additional Past Medical History / Comment(s): ARTHRITIS, kidney stones, possible dementia, kidney failure, neuropathy alia legs, carpal tunnel. CVA-jul 17 balance issues,speech impairment,vision impairment, receives injections to eyes r/t bleeding ,COVID 07/28/2022 History of Any Multi-Drug Resistant Organisms: None Reported Past Surgical History: Back Surgery Additional Past Surgical History / Comment(s): MASS REMOVED FROM BACK OF HEAD, eye surgery, Past Anesthesia/Blood Transfusion Reactions: No Reported Reaction Past Psychological History: Depression Smoking Status: Never smoker Past Alcohol Use History: None Reported Past Drug Use History: None Reported - Past Family History Father Family Medical History: Diabetes Mellitus Mother Family Medical History: Diabetes Mellitus Brother(s) Family Medical History: Cancer Sister(s) Family Medical History: Cancer Medications and Allergies Home Medications Medication Instructions Recorded Confirmed Type DULoxetine HCL [Cymbalta] 30 mg PO HS 03/13/16 02/24/24 History Isosorbide Mononitrate ER [Imdur] 60 mg PO DAILY 03/13/16 02/24/24 History Clopidogrel [Plavix] 75 mg PO DAILY #30 tab 07/11/20 02/24/24 Rx levETIRAcetam [Keppra] 500 mg PO BID 12/11/20 02/24/24 History Atorvastatin [Lipitor] 20 mg PO HS 07/18/21 02/24/24 History Insulin Aspart [NovoLOG Flexpen] 10 units SQ AC-BID@0800,1200 07/28/21 02/24/24 History Insulin Aspart [NovoLOG Flexpen] 12 units SQ W/SUPPER 07/28/21 02/24/24 History Vitamin E 400 unit PO DAILY 11/10/21 02/24/24 History Insulin Glargine,Hum.rec.anlog 30 units SQ DAILY #0 11/12/21 02/24/24 Rx [Lantus Solostar Pen] Insulin Aspart [NovoLOG Flexpen] See Protocol SQ TID-W/MEALS PRN 02/02/22 02/24/24 History NIFEdipine XL [Procardia XL] 120 mg PO DAILY 30 Days #30 tab 12/08/23 02/24/24 Rx Sodium Bicarbonate Tab 650 mg PO BID #30 tab 12/08/23 02/24/24 Rx carvediloL [Coreg*] 12.5 mg PO BID-W/MEALS #60 tab 12/08/23 02/24/24 Rx Ergocalciferol (Vitamin D2) 1,250 mcg PO MO 02/24/24 02/24/24 History [Drisdol (50,000 Iu)] Allergies Allergy/AdvReac Type Severity Reaction Status Date / Time No Known Allergies Allergy Verified 02/24/24 15:19 Physical Exam Vitals: Vital Signs Temp Pulse Resp BP Pulse Ox 02/24/24 18:24 67 14 205/71 98 02/24/24 13:18 97.7 F 60 18 209/87 100 Intake and Output 02/24/24 02/24/24 02/24/24 06:59 14:59 22:59 Other: Weight 89.358 kg Results CBC & Chem 7: 02/24/24 19:26 02/24/24 18:35 Labs: Abnormal Lab Results - Last 24 Hours (Table) 02/24/24 02/24/24 Range/Units 18:35 19:26 RBC 3.58 L (4.30-5.90) m/uL Hgb 10.7 L (13.0-17.5) gm/dL Hct 33.3 L (39.0-53.0) % Chloride 113 H (98-107) mmol/L BUN 44 H (9-20) mg/dL Creatinine 4.02 H (0.66-1.25) mg/dL Glucose 146 H (74-99) mg/dL Calcium 8.3 L (8.4-10.2) mg/dL Phosphorus 4.6 H (2.5-4.5) mg/dL Total Protein 5.6 L (6.3-8.2) g/dL Albumin 3.1 L (3.5-5.0) g/dL
[2024-02-24 22:30] LABS: Glucose,Whole Blood 190 mg/dL (70-110)
[2024-02-24] MEDS: carvediloL 12.5 MG TAB PO SCH (22:35)
[2024-02-24] MEDS: levETIRAcetam 500 MG TAB PO SCH (22:35)
[2024-02-24] MEDS: SODIUM BICARBONATE TAB 650 MG TAB PO SCH (22:35)
[2024-02-24] MEDS: DULoxetine HCL 30 MG CAPSULE.DR PO SCH (22:35)
[2024-02-24] MEDS: ATORVASTATIN 20 MG TAB PO SCH (22:35)
[2024-02-24] MEDS: INSULIN ASPART (NovoLOG) 100 UNIT/ML VIAL SQ SCH (22:36)
[2024-02-25 06:33] LABS: Glucose,Whole Blood 164 mg/dL (70-110)
[2024-02-25] MEDS: INSULIN DETEMIR (LEVEMIR) 100 UNIT/ML SYR SQ SCH (06:35)
--- NOTE | 2024-02-25 08:21 | US ---
EXAMINATION TYPE: US upper ext pseudo LT DATE OF EXAM: 02/25/2024 COMPARISON: 02/24/2024 CLINICAL INDICATION: Male, 78 years old with history of recheck after compression; FINDINGS: Key Account Representative notes: Left brachial 1.3cm pseudoaneurysm that was seen yesterday still seen today, appea rs to have slightly increased in size (compared to 1.1 cm, previously). IMPRESSION: As above.
[2024-02-25 08:27] LABS: Basophils # (A) 0.07 X 10*3/uL (0.00-0.10); Basophils % (A) 1.2 %; Eosinophils # (A) 0.08 X 10*3/uL (0.04-0.35); Eosinophils % (A) 1.4 %; HCT 30.9 % (39.6-50.0); HGB 9.9 g/dL (13.0-17.0); Lymphocytes # (A) 1.45 X 10*3/uL (0.90-5.00); Lymphocytes % (A) 24.6 %; MCH 28.9 pg (27.0-32.0); MCV 90.1 FL (80.0-97.0); Mean Platelet Volume 10.5 FL (9.5-12.2); Monocytes # (A) 0.52 X 10*3/uL (0.20-1.00); Monocytes % (A) 8.8 %; NRBC Per 100 WBC 0 X 10*3/uL (0.00-0.01); Neutrophils # (A) 3.75 X 10*3/uL (1.80-7.70); Neutrophils % (A) 63.7 %; Platelet Count 262 X 10*3/uL (140-440); RBC 3.43 X 10*6/uL (4.40-5.60); RDW 13.9 % (11.5-14.5); WBC 5.89 X 10*3/uL (4.50-10.00)
[2024-02-25 08:54] LABS: BUN/Creat Ratio 9.98 Ratio (12.00-20.00); Blood Urea Nitrogen 41.9 mg/dL (9.0-27.0); Calcium 8.3 mg/dL (8.7-10.3); Carbon Dioxide 18.8 mmol/L (21.6-31.8); Chloride 108 mmol/L (96-109); Glucose 170 mg/dL (70-110); Potassium 4.3 mmol/L (3.5-5.5); Sodium 140 mmol/L (135-145)
[2024-02-25] MEDS: VITAMIN E (DL,TOCOPHERYL ACET) 400 UNIT (180 MG) CAP PO SCH (08:54)
[2024-02-25 08:55] VITALS: PULSE 78; RESP 18; TEMP 98.5
[2024-02-25] MEDS: CLOPIDOGREL 75 MG TAB PO SCH (08:55)
[2024-02-25] MEDS: ISOSORBIDE MONONITRATE ER 60 MG TAB.ER.24H PO SCH (08:55)
[2024-02-25] MEDS: INSULIN ASPART (NovoLOG) 100 UNIT/ML VIAL SQ SCH (08:55)
[2024-02-25] MEDS: cloNIDine HCL 0.1 MG TAB PO STA (11:11)
[2024-02-25 11:27] VITALS: BP 176/62
--- NOTE | 2024-02-25 11:44 | P.GSCN ---
History of Present Illness Consult date: 02/25/24 Reason for Consult: Brachial artery pseudoaneurysm Requesting physician: Amanda Cassidy History of present illness: A pleasant 78-year-old male with a history of end-stage renal disease, hyperlipidemia, diabetes, obstructive sleep apnea and dementia who reportedly was sent in by his nephrology interventionalists for concern of pseudoaneurysm. Patient underwent left upper extremity fistula creation by Dr. Mcrae a week ago in [place]. He had a follow-up appointment and ultrasound with finding of brachial aneurysm and was sent to the emergency department. Patient not having any significant pain. He has full range of motion. There is significant bruising. He is not on any anticoagulation however is on Plavix 75 mg daily. Review of Systems A 14 point review systems was completed all pertinent positives and negatives as stated in the HPI. Past Medical History Past Medical History: CVA/TIA, Diabetes Mellitus, Hyperlipidemia, Hypertension, Liver Disease, Renal Disease, Sleep Apnea/CPAP/BIPAP Additional Past Medical History / Comment(s): ARTHRITIS, kidney stones, possible dementia, kidney failure, neuropathy alia legs, carpal tunnel. CVA-oct 20 balance issues,speech impairment,vision impairment, receives injections to eyes r/t bleeding ,COVID 07/28/2022 History of Any Multi-Drug Resistant Organisms: None Reported Past Surgical History: Back Surgery Additional Past Surgical History / Comment(s): MASS REMOVED FROM BACK OF HEAD, eye surgery, Past Anesthesia/Blood Transfusion Reactions: No Reported Reaction Past Psychological History: Depression Smoking Status: Never smoker Past Alcohol Use History: None Reported Past Drug Use History: None Reported - Past Family History Father Family Medical History: Diabetes Mellitus Mother Family Medical History: Diabetes Mellitus Brother(s) Family Medical History: Cancer Sister(s) Family Medical History: Cancer Medications and Allergies Home Medications Medication Instructions Recorded Confirmed Type DULoxetine HCL [Cymbalta] 30 mg PO HS 03/13/16 02/24/24 History Isosorbide Mononitrate ER [Imdur] 60 mg PO DAILY 03/13/16 02/24/24 History Clopidogrel [Plavix] 75 mg PO DAILY #30 tab 07/11/20 02/24/24 Rx levETIRAcetam [Keppra] 500 mg PO BID 12/11/20 02/24/24 History Atorvastatin [Lipitor] 20 mg PO HS 07/18/21 02/24/24 History Insulin Aspart [NovoLOG Flexpen] 10 units SQ AC-BID@0800,1200 07/28/21 02/24/24 History Insulin Aspart [NovoLOG Flexpen] 12 units SQ W/SUPPER 07/28/21 02/24/24 History Vitamin E 400 unit PO DAILY 11/10/21 02/24/24 History Insulin Glargine,Hum.rec.anlog 30 units SQ DAILY #0 11/12/21 02/24/24 Rx [Lantus Solostar Pen] Insulin Aspart [NovoLOG Flexpen] See Protocol SQ TID-W/MEALS PRN 02/02/22 02/24/24 History NIFEdipine XL [Procardia XL] 120 mg PO DAILY 30 Days #30 tab 12/08/23 02/24/24 Rx Sodium Bicarbonate Tab 650 mg PO BID #30 tab 12/08/23 02/24/24 Rx carvediloL [Coreg*] 12.5 mg PO BID-W/MEALS #60 tab 12/08/23 02/24/24 Rx Ergocalciferol (Vitamin D2) 1,250 mcg PO MO 02/24/24 02/24/24 History [Drisdol (50,000 Iu)] Allergies Allergy/AdvReac Type Severity Reaction Status Date / Time No Known Allergies Allergy Verified 02/24/24 15:19 Surgical - Exam Vital Signs Temp Pulse Resp BP Pulse Ox 97.7 F 60 18 209/87 100 02/24/24 13:18 02/24/24 13:18 02/24/24 13:18 02/24/24 13:18 02/24/24 13:18 General appearance: The patient is alert, oriented, appears in no acute distress. HET: Head is normocephalic and atraumatic. Pupils are equal and reactive. Neck: Supple. Heart: Regular. Lungs: Equal expansion, normal respiratory effort. Abdomen: Soft, nontender, nondistended. Extremities: Left upper extremity with ecchymosis medial aspect between shoulder and elbow. Palpable radial pulse. Sensorimotor intact with good range of motion. Neurological: No focal deficits. Results - Labs 02/25/24 06:26 02/25/24 06:26 Abnormal Lab Results - Last 24 Hours (Table) 02/24/24 02/24/24 02/24/24 Range/Units 18:35 19:26 22:29 RBC 3.58 L (4.30-5.90) m/uL Hgb 10.7 L (13.0-17.5) gm/dL Hct 33.3 L (39.0-53.0) % Chloride 113 H (98-107) mmol/L BUN 44 H (9-20) mg/dL Creatinine 4.02 H (0.66-1.25) mg/dL Glucose 146 H (74-99) mg/dL POC Glucose (mg/dL) 190 H (70-110) mg/dL Calcium 8.3 L (8.4-10.2) mg/dL Phosphorus 4.6 H (2.5-4.5) mg/dL Total Protein 5.6 L (6.3-8.2) g/dL Albumin 3.1 L (3.5-5.0) g/dL 02/25/24 Range/Units 06:32 RBC (4.30-5.90) m/uL Hgb (13.0-17.5) gm/dL Hct (39.0-53.0) % Chloride (98-107) mmol/L BUN (9-20) mg/dL Creatinine (0.66-1.25) mg/dL Glucose (74-99) mg/dL POC Glucose (mg/dL) 164 H (70-110) mg/dL Calcium (8.4-10.2) mg/dL Phosphorus (2.5-4.5) mg/dL Total Protein (6.3-8.2) g/dL Albumin (3.5-5.0) g/dL Diabetes panel 02/24/24 Range/Units 18:35 Sodium 138 (137-145) mmol/L Potassium 4.3 (3.5-5.1) mmol/L Chloride 113 H (98-107) mmol/L Carbon Dioxide 23 (22-30) mmol/L BUN 44 H (9-20) mg/dL Creatinine 4.02 H (0.66-1.25) mg/dL Glucose 146 H (74-99) mg/dL Calcium 8.3 L (8.4-10.2) mg/dL AST 24 (17-59) U/L ALT 11 (4-49) U/L Alkaline Phosphatase 119 (38-126) U/L Total Protein 5.6 L (6.3-8.2) g/dL Albumin 3.1 L (3.5-5.0) g/dL Calcium panel 02/24/24 Range/Units 18:35 Calcium 8.3 L (8.4-10.2) mg/dL Phosphorus 4.6 H (2.5-4.5) mg/dL Albumin 3.1 L (3.5-5.0) g/dL Pituitary panel 02/24/24 Range/Units 18:35 Sodium 138 (137-145) mmol/L Potassium 4.3 (3.5-5.1) mmol/L Chloride 113 H (98-107) mmol/L Carbon Dioxide 23 (22-30) mmol/L BUN 44 H (9-20) mg/dL Creatinine 4.02 H (0.66-1.25) mg/dL Glucose 146 H (74-99) mg/dL Calcium 8.3 L (8.4-10.2) mg/dL Adrenal panel 02/24/24 Range/Units 18:35 Sodium 138 (137-145) mmol/L Potassium 4.3 (3.5-5.1) mmol/L Chloride 113 H (98-107) mmol/L Carbon Dioxide 23 (22-30) mmol/L BUN 44 H (9-20) mg/dL Creatinine 4.02 H (0.66-1.25) mg/dL Glucose 146 H (74-99) mg/dL Calcium 8.3 L (8.4-10.2) mg/dL Total Bilirubin 0.4 (0.2-1.3) mg/dL AST 24 (17-59) U/L ALT 11 (4-49) U/L Alkaline Phosphatase 119 (38-126) U/L Total Protein 5.6 L (6.3-8.2) g/dL Albumin 3.1 L (3.5-5.0) g/dL - Imaging Comments: Pseudo Ultrasound left upper extremity 02/24/2024: Report states 1.1 cm pseudoaneurysm at the mid brachial artery and a narrow 1.4 mm neck. Repeat pseudo ultrasound left upper extremity 02/25/2024: Report states left brachial 1.3 cm pseudoaneurysm that was seen yesterday still seen today, appears to have slightly increased in size compared to 1.1 cm previously. Ultrasound was independently reviewed by Dr. Bowens and appears that the pseudoaneurysm has thrombosed some compared to yesterday. Assessment and Plan Assessment: 1. 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 End-stage renal disease Plan: 1. Both ultrasounds reviewed independently by Dr. Otero. Second ultrasound pseudoaneurysm appears to have thrombosed some and is stable 2. May keep a light pressure dressing to left upper extremity 3. Recommend patient follow-up with his interventionalists who performed fistula creation 4. Apparently the office that he had fistula creation done they are unable to repair a pseudoaneurysm or follow it 5. Patient pseudoaneurysm is stable, he may be discharged home with follow-up in our office next week Thursday for a repeat ultrasound and Thursday with Dr. Johns to follow-up. You for this consultation, we will sign off at this time. The impression and plan of care has been dictated as directed. I performed a history and examination of this patient, discussed the same with the dictator. I agree with the dictator's note ,documented as a scribe. Any additional findings or plans will be noted.
[2024-02-25 12:53] LABS: Glucose,Whole Blood 72 mg/dL (70-110)
--- NOTE | 2024-02-25 17:16 | P.DS ---
Providers Date of admission: 02/24/24 18:57 Expected date of discharge: 02/25/24 Attending physician: Tadeo Dickerson Consults: 02/24/24 18:54 Consult Physician Urgent Consulting Provider: Ariel Johns Reason/Comments: brachial pseudoaneurysm Do you want consulting provider notified?: Already Contacted Primary care physician: [facility] Course: Chief Complaint: Left and a fistula aneurysm This is a 78-year-old patient of Dr. Santana. Chronic stable medical conditions include hyperlipidemia, diabetes, obstructive sleep apnea, osteoarthritis, kidney stones, cognitive impairment-dementia. 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 Had a loop recorder seizures. Visit his and daughter. Not a good historian Patient follows with finish molder Dr. Stevens. Patient was sent down to [place], where he underwent Endo fistula placement by -a week ago. They are a follow-up visit today. Patient is found to have a mid left brachial aneurysm. Patient had pain and swelling in the left upper arm with bruising. He was sent here for admission. ER spoke to Dr. Johns from vascular who will attend to the issue. Patient is accompanied by his and daughter in the ER. Appetite fair. No fever no chills. February 24: Was seen by the vascular team today. They informed me that patient to follow-up in the office early next week. They will do a repeat ultrasound and determine if need for further intervention. Patient's blood pressure is slightly up from the pain from the left arm. Care was discussed with REJI Cabello from vascular. And the nurse. Discussion and discharge planning more than 35 minutes Past medical history to include: Diabetes, hyperlipidemia, hypertension, obstructive sleep apnea, osteoarthritis, kidney stones, cognitive impairment, stroke hypertension with right-sided weakness, depression, seizure Social history: No history of smoking or alcohol. Lives with his and daughter. Does use a walker Physical examination: VITAL SIGNS: 98.5, 78, 18, 172 x 52, 96% room air GENERAL: Resting in bed, comfortable EYES: Pupils equal. Conjunctiva normal. HEENT: External appearance of nose and ears normal, oral cavity grossly normal. NECK: JVD not raised; masses not palpable. HEART: First and second heart sounds are normal; no edema. EXTREMITY: Bruising along the inner side on the left arm especially upper arm. Slight tenderness. LUNGS: Respiratory rate normal; clear to auscultation. ABDOMEN: Soft, no tenderness no guarding rigidity, liver spleen not palpable, no masses palpable. PSYCH: answering simple questions NEUROLOGICAL: [Cranial nerves grossly intact; no facial asymmetry, power 4/5 on the right side LYMPHATICS: No lymph nodes palpable in the axilla and neck INVESTIGATIONS, reviewed in the clinical context: February 24: White count 5.8 hemoglobin 9.9 platelets 262 potassium 4.3 BUN 41.9 creatinine 4.2 February 24, 2024: White count 6.4 hemoglobin 10.7 platelets 277 sodium 138 potassium 4.3. 44 creatinine 4.02. Phosphorus 4.6 Duplex scan upper extremity1.1 x 0.9 cm pseudoaneurysm in the mid level brachial artery. Neck 1.4 mm Previous labs 2D echocardiogram: [November 2023] EF 65 to 70%. Previous labs: Creatinine 2.46 on January 2023 Assessment and plan: -1.1 x 0.9 cm acute pseudoaneurysm in the mid level brachial artery. Neck 1.4 mm, following Endo vascular fistula creation by in the left arm. Patient has some bruising and tenderness. Vascular Dr. Johns team saw the patient today. To follow-up early next week in the office repeat ultrasound to determine need for intervention. 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 On Levemir, NovoLog Follow Accu-Cheks closely. 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 Stevens Follow renal function. -Full code Disposition: Home Past Medical History Past Medical History: CVA/TIA, Diabetes Mellitus, Hyperlipidemia, Hypertension, Liver Disease, Renal Disease, Sleep Apnea/CPAP/BIPAP Additional Past Medical History / Comment(s): ARTHRITIS, kidney stones, possible dementia, kidney failure, neuropathy alia legs, carpal tunnel. CVA-jul 17 balance issues,speech impairment,vision impairment, receives injections to eyes r/t bleeding ,COVID 07/28/2022 History of Any Multi-Drug Resistant Organisms: None Reported Past Surgical History: Back Surgery Additional Past Surgical History / Comment(s): MASS REMOVED FROM BACK OF HEAD, eye surgery, Past Anesthesia/Blood Transfusion Reactions: No Reported Reaction Past Psychological History: Depression Smoking Status: Never smoker Past Alcohol Use History: None Reported Past Drug Use History: None Reported Plan - Discharge Summary New Discharge Prescriptions: Continue Isosorbide Mononitrate ER [Imdur] 60 mg PO DAILY DULoxetine HCL [Cymbalta] 30 mg PO HS Clopidogrel [Plavix] 75 mg PO DAILY #30 tab levETIRAcetam [Keppra] 500 mg PO BID Atorvastatin [Lipitor] 20 mg PO HS Insulin Aspart [NovoLOG Flexpen] 12 units SQ W/SUPPER Vitamin E 400 unit PO DAILY Insulin Glargine,Hum.rec.anlog [Lantus Solostar Pen] 30 units SQ DAILY #0 Insulin Aspart [NovoLOG Flexpen] 10 units SQ AC-BID@0800,1200 Insulin Aspart [NovoLOG Flexpen] See Protocol SQ TID-W/MEALS PRN PRN Reason: HIGH BLOOD SUGAR carvediloL [Coreg*] 12.5 mg PO BID-W/MEALS #60 tab Sodium Bicarbonate Tab 650 mg PO BID #30 tab NIFEdipine XL [Procardia XL] 120 mg PO DAILY 30 Days #30 tab Ergocalciferol (Vitamin D2) [Drisdol (50,000 Iu)] 1,250 mcg PO MO Discharge Medication List DULoxetine HCL [Cymbalta] 30 mg PO HS 03/13/16 [History] Isosorbide Mononitrate ER [Imdur] 60 mg PO DAILY 03/13/16 [History] Clopidogrel [Plavix] 75 mg PO DAILY #30 tab 07/11/20 [Rx] levETIRAcetam [Keppra] 500 mg PO BID 12/11/20 [History] Atorvastatin [Lipitor] 20 mg PO HS 07/18/21 [History] Insulin Aspart [NovoLOG Flexpen] 10 units SQ AC-BID@0800,1200 07/28/21 [History] Insulin Aspart [NovoLOG Flexpen] 12 units SQ W/SUPPER 07/28/21 [History] Vitamin E 400 unit PO DAILY 11/10/21 [History] Insulin Glargine,Hum.rec.anlog [Lantus Solostar Pen] 30 units SQ DAILY #0 11/12/21 [Rx] Insulin Aspart [NovoLOG Flexpen] See Protocol SQ TID-W/MEALS PRN 02/02/22 [History] NIFEdipine XL [Procardia XL] 120 mg PO DAILY 30 Days #30 tab 12/08/23 [Rx] Sodium Bicarbonate Tab 650 mg PO BID #30 tab 12/08/23 [Rx] carvediloL [Coreg*] 12.5 mg PO BID-W/MEALS #60 tab 12/08/23 [Rx] Ergocalciferol (Vitamin D2) [Drisdol (50,000 Iu)] 1,250 mcg PO MO 02/24/24 [History] Follow up Appointment(s)/Referral(s): Dennis Santana DO [Primary Care Provider] - 1-2 days Ariel Johns DO [STAFF PHYSICIAN] - 03/01/24 9:30 am () Dionicio Otero DO [Doctor of Osteopathic Medicine] - 02/29/24 11:00 am (This appointment is for left upper extremity ultrasound) Discharge Disposition: HOME SELF-CARE
[2024-02-25] MEDS ORDERED: INSULIN ASPART (NovoLOG) 100 UNIT/ML VIAL SQ SCH (17:30)
[2024-02-29] MEDS ORDERED: ERGOCALCIFEROL 1,250 MCG (50,000 IU) CAPSULE PO SCH (09:00)
== END 2024-02-25 15:02 | disposition home or self-care (01) ==
LOC: EC 13:06 → 6NMEDSUR 18:57
PROVIDERS: ADMIT Hospitalist; ATTEND Hospitalist
DX: T82.510A Breakdown (mechanical) of surgically created arteriovenous fistula, initial encounter (principal); I12.0 Hypertensive chronic kidney disease with stage 5 chronic kidney disease or end stage renal disease; N18.6 End stage renal disease; E11.22 Type 2 diabetes mellitus with diabetic chronic kidney disease; G40.909 Epilepsy, unspecified, not intractable, without status epilepticus; M19.90 Unspecified osteoarthritis, unspecified site; E78.5 Hyperlipidemia, unspecified; G81.91 Hemiplegia, unspecified affecting right dominant side; F03.90 Unspecified dementia, unspecified severity, without behavioral disturbance, psychotic disturbance, mood disturbance, and anxiety; G47.33 Obstructive sleep apnea (adult) (pediatric); F32.A Depression, unspecified; Z79.4 Long term (current) use of insulin; Z79.02 Long term (current) use of antithrombotics/antiplatelets; Z79.899 Other long term (current) drug therapy; Z87.442 Personal history of urinary calculi
CPT/HCPCS: 96374; 99285; 80053; 80048; 83735; 84100; 85025 ×2; 93976; 93931 ×2; G0378 ×2; J0360

== ENCOUNTER 2024-03-04 06:00 | Inpatient (IN) | payer MEDICARE, OTHER ==
[2024-03-04] MEDS: hydrALAZINE HCL 20 MG/ML 1 ML VIAL IVP STA ×3 (06:38→09:50)
[2024-03-04 06:48] LABS: Basophils # (A) 0.1 k/uL (0-0.2); Basophils % (A) 1 %; Eosinophils # (A) 0.1 k/uL (0-0.7); Eosinophils % (A) 2 %; HCT 33.7 % (39.0-53.0); HGB 10.7 gm/dL (13.0-17.5); Lymphocytes # (A) 1.2 k/uL (1.0-4.8); Lymphocytes % (A) 17 %; MCH 29.6 pg (25.0-35.0); MCHC 31.7 g/dL (31.0-37.0); MCV 93.4 fL (80.0-100.0); Mean Platelet Volume 8.1; Monocytes # (A) 0.5 k/uL (0-1.0); Monocytes % (A) 7 %; Neutrophils # (A) 5.2 k/uL (1.3-7.7); Neutrophils % (A) 73 %; Platelet Count 290 k/uL (150-450); RBC 3.61 m/uL (4.30-5.90); RDW 14.3 % (11.5-15.5); WBC 7.1 k/uL (3.8-10.6)
--- NOTE | 2024-03-04 06:49 | ED ---
General Adult HPI - General Chief complaint: Shortness of Breath Stated complaint: Eelevated heart BP back pain Time Seen by Provider: 03/04/24 06:18 Source: family, RN notes reviewed Mode of arrival: ambulatory Limitations: no limitations - History of Present Illness Initial comments: 78-year-old male presents emergency department complaint of dyspnea patient states that he ran out of his nifedipine and states his blood pressure has been on for the last 1 week. Patient has exertional dyspnea. Patient recently had fistula placed 3 weeks ago and saw him both nephrology next week discussed starting dialysis. Patient denies any fevers no chills no cough colic symptoms denies history of CHF but does admit that he takes Lasix 20 mg daily. Patient denies chest pain states he has no symptoms at rest but simple minimal exertion causes dyspnea denies leg swelling - Related Data Home Medications Medication Instructions Recorded Confirmed DULoxetine HCL [Cymbalta] 30 mg PO HS 03/13/16 02/24/24 Isosorbide Mononitrate ER [Imdur] 60 mg PO DAILY 03/13/16 02/24/24 levETIRAcetam [Keppra] 500 mg PO BID 12/11/20 02/24/24 Atorvastatin [Lipitor] 20 mg PO HS 07/18/21 02/24/24 Insulin Aspart [NovoLOG Flexpen] 10 units SQ AC-BID@0800,1200 07/28/21 02/24/24 Insulin Aspart [NovoLOG Flexpen] 12 units SQ W/SUPPER 07/28/21 02/24/24 Vitamin E 400 unit PO DAILY 11/10/21 02/24/24 Insulin Aspart [NovoLOG Flexpen] See Protocol SQ TID-W/MEALS PRN 02/02/22 02/24/24 Ergocalciferol (Vitamin D2) 1,250 mcg PO MO 02/24/24 02/24/24 [Drisdol (50,000 Iu)] Previous Rx's Medication Instructions Recorded Clopidogrel [Plavix] 75 mg PO DAILY #30 tab 07/11/20 Insulin Glargine,Hum.rec.anlog 30 units SQ DAILY #0 11/12/21 [Lantus Solostar Pen] NIFEdipine XL [Procardia XL] 120 mg PO DAILY 30 Days #30 tab 12/08/23 Sodium Bicarbonate Tab 650 mg PO BID #30 tab 12/08/23 carvediloL [Coreg*] 12.5 mg PO BID-W/MEALS #60 tab 12/08/23 Allergies Allergy/AdvReac Type Severity Reaction Status Date / Time No Known Allergies Allergy Verified 03/04/24 06:02 Review of Systems ROS Statement: Those systems with pertinent positive or pertinent negative responses have been documented in the HPI. ROS Other: All systems not noted in ROS Statement are negative. Past Medical History Past Medical History: CVA/TIA, Diabetes Mellitus, Hyperlipidemia, Hypertension, Liver Disease, Renal Disease, Sleep Apnea/CPAP/BIPAP Additional Past Medical History / Comment(s): ARTHRITIS, kidney stones, possible dementia, kidney failure, neuropathy alia legs, carpal tunnel. 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 balance issues,speech impairment,vision impairment, receives injections to eyes r/t bleeding ,COVID 07/28/2022 History of Any Multi-Drug Resistant Organisms: None Reported Past Surgical History: Back Surgery Additional Past Surgical History / Comment(s): MASS REMOVED FROM BACK OF HEAD, eye surgery, Past Anesthesia/Blood Transfusion Reactions: No Reported Reaction Past Psychological History: Depression Smoking Status: Never smoker Past Alcohol Use History: None Reported Past Drug Use History: None Reported - Past Family History Father Family Medical History: Diabetes Mellitus Mother Family Medical History: Diabetes Mellitus Brother(s) Family Medical History: Cancer Sister(s) Family Medical History: Cancer General Exam Limitations: no limitations General appearance: alert, in no apparent distress Head exam: Present: atraumatic, normocephalic, normal inspection Eye exam: Present: normal appearance, PERRL, EOMI. Absent: scleral icterus, conjunctival injection, periorbital swelling ENT exam: Present: normal exam, normal oropharynx, mucous membranes moist Neck exam: Present: normal inspection, full ROM. Absent: tenderness, meningismus, lymphadenopathy Respiratory exam: Present: normal lung sounds bilaterally. Absent: respiratory distress, wheezes, rales, rhonchi, stridor Cardiovascular Exam: Present: regular rate, normal rhythm, normal heart sounds. Absent: systolic murmur, diastolic murmur, rubs, gallop, clicks GI/Abdominal exam: Present: soft, normal bowel sounds. Absent: distended, tenderness, guarding, rebound, rigid Extremities exam: Absent: pedal edema Neurological exam: Present: alert Skin exam: Present: warm, dry, intact, normal color. Absent: rash Course Vital Signs 03/04/24 03/04/24 03/04/24 06:03 06:19 07:02 Temperature 97.8 F Pulse Rate 73 72 Respiratory 21 20 Rate Blood Pressure 222/89 226/93 209/81 O2 Sat by Pulse 96 95 Oximetry EKG Findings - EKG Comments: EKG Findings:: EKG performed at 6: 14 sinus rhythm rate of 74 MO 173 QRS 83 QT/QTc 375/402 - EKG Results: EKG: interpreted by [facility] Medical Decision Making - Medical Decision Making Was pt. sent in by a medical professional or institution (, PA, SKIP PIT WORKER, urgent care, hospital, or snf...) When possible be specific @ -No Did you speak to anyone other than the patient for history (EMS, parent, family, police, friend...)? What history was obtained from this source @ -No Did you review nursing and triage notes (agree or disagree)? Why? @ -I reviewed and agree with nursing and triage notes Were old charts reviewed (outside hosp., previous admission, EMS record, old EKG, old radiological studies, urgent care reports/EKG's, snf records)? Report findings @ -No old charts were reviewed Differential Diagnosis (chest pain, altered mental status, abdominal pain women, abdominal pain men, vaginal bleeding, weakness, fever, dyspnea, syncope, headache, dizziness, GI bleed, back pain, seizure, CVA, palpatations, mental health, musculoskeletal)? @ -Differential Dyspnea: Coronary syndrome, arrhythmia, tamponade, asthma, COPD, pulmonary embolism, pneumonia, pneumothorax, pulmonary effusion, anaphylaxis, diabetic ketoacidosis, flailed chest, pulmonary contusion, diaphragmatic rupture, anemia, neuromuscular, this is not meant to be an all-inclusive list. EKG interpreted by me (3pts min.). @ -As above X-rays interpreted by me (1pt min.). @ -X-ray shows bilateral pleural effusions, pulmonary edema CT interpreted by me (1pt min.). @ -None done U/S interpreted by me (1pt. min.). @ -None done What testing was considered but not performed or refused? (CT, X-rays, U/S, labs)? Why? @ -None What meds were considered but not given or refused? Why? @ -None Did you discuss the management of the patient with other professionals (professionals i.e. , PA, SKIP PIT WORKER, lab, RT, psych nurse, social service coordinator, policy specialist, teacher, disciplinary hearing officer, case management social worker)? Give summary @ -Dr. Dickerson, cardiology for admission and consult Was smoking cessation discussed for >3mins.? @ -No Was critical care preformed (if so, how long)? @ -35mins Were there social determinants of health that impacted care today? How? (Homelessness, low income, unemployed, alcoholism, drug addiction, transportation, low edu. Level, literacy, decrease access to med. care, custodial, rehab)? @ -No Was there de-escalation of care discussed even if they declined (Discuss DNR or withdrawal of care, Hospice)? DNR status @ -No What co-morbidities impacted this encounter? (DM, HTN, Smoking, COPD, CAD, Cancer, CVA, ARF, Chemo, Hep., AIDS, mental health diagnosis, sleep apnea, morbid obesity)? @ -CHF, renal disease Was patient admitted / discharged? Hospital course, mention meds given and route, prescriptions, significant lab abnormalities, going to OR and other pertinent info. @ -Admit the patient is found to have acute CHF exacerbation patient also was hypertensive. Patient was given multiple rounds of blood pressure meds, Nitropaste was applied patient was given Lasix. Patient be admitted for further diuresis Undiagnosed new problem with uncertain prognosis? @ -No Drug Therapy requiring intensive monitoring for toxicity (Heparin, Nitro, Insulin, Cardizem)? @ -No Were any procedures done? @ -No Diagnosis/symptom? @ -Acute CHF exacerbation, hypertension Acute, or Chronic, or Acute on Chronic? @ -Acute Uncomplicated (without systemic symptoms) or Complicated (systemic symptoms)? @ -Complicated Side effects of treatment? @ -No Exacerbation, Progression, or Severe Exacerbation? @ -No Poses a threat to life or bodily function? How? (Chest pain, USA, MD, pneumonia, PE, COPD, DKA, ARF, appy, cholecystitis, CVA, Diverticulitis, Homicidal, Suicidal, threat to staff... and all critical care pts) @ -Yes CHF exertion could cause respiratory failure, cardiac arrest - Lab Data Result diagrams: 03/04/24 06:29 03/04/24 06:29 Lab Results 03/04/24 03/04/24 03/04/24 Range/Units 06:29 06:29 06:29 WBC 7.1 (3.8-10.6) k/uL RBC 3.61 L (4.30-5.90) m/uL Hgb 10.7 L (13.0-17.5) gm/dL Hct 33.7 L (39.0-53.0) % MCV 93.4 (80.0-100.0) fL MCH 29.6 (25.0-35.0) pg MCHC 31.7 (31.0-37.0) g/dL RDW 14.3 (11.5-15.5) % Plt Count 290 (150-450) k/uL MPV 8.1 Neutrophils % 73 % Lymphocytes % 17 % Monocytes % 7 % Eosinophils % 2 % Basophils % 1 % Neutrophils # 5.2 (1.3-7.7) k/uL Lymphocytes # 1.2 (1.0-4.8) k/uL Monocytes # 0.5 (0-1.0) k/uL Eosinophils # 0.1 (0-0.7) k/uL Basophils # 0.1 (0-0.2) k/uL PT 10.5 (10.0-12.5) sec INR 0.9 (<1.2) APTT 25.0 (22.0-30.0) sec Sodium 135 L (137-145) mmol/L Potassium 4.4 (3.5-5.1) mmol/L Chloride 110 H (98-107) mmol/L Carbon Dioxide 17 L (22-30) mmol/L Anion Gap 8 mmol/L BUN 45 H (9-20) mg/dL Creatinine 3.94 H (0.66-1.25) mg/dL Est GFR (CKD-EPI)AfAm 16 (>60 ml/min/1.73 sqM) Est GFR (CKD-EPI)NonAf 14 (>60 ml/min/1.73 sqM) Glucose 220 H (74-99) mg/dL Calcium 8.1 L (8.4-10.2) mg/dL Magnesium 2.0 (1.6-2.3) mg/dL Total Bilirubin 0.6 (0.2-1.3) mg/dL AST 20 (17-59) U/L ALT 11 (4-49) U/L Alkaline Phosphatase 136 H (38-126) U/L Troponin I (0.000-0.034) ng/mL NT-Pro-B Natriuret Pep 72443 pg/mL Total Protein 5.8 L (6.3-8.2) g/dL Albumin 3.3 L (3.5-5.0) g/dL 03/04/24 Range/Units 06:29 WBC (3.8-10.6) k/uL RBC (4.30-5.90) m/uL Hgb (13.0-17.5) gm/dL Hct (39.0-53.0) % MCV (80.0-100.0) fL MCH (25.0-35.0) pg MCHC (31.0-37.0) g/dL RDW (11.5-15.5) % Plt Count (150-450) k/uL MPV Neutrophils % % Lymphocytes % % Monocytes % % Eosinophils % % Basophils % % Neutrophils # (1.3-7.7) k/uL Lymphocytes # (1.0-4.8) k/uL Monocytes # (0-1.0) k/uL Eosinophils # (0-0.7) k/uL Basophils # (0-0.2) k/uL PT (10.0-12.5) sec INR (<1.2) APTT (22.0-30.0) sec Sodium (137-145) mmol/L Potassium (3.5-5.1) mmol/L Chloride (98-107) mmol/L Carbon Dioxide (22-30) mmol/L Anion Gap mmol/L BUN (9-20) mg/dL Creatinine (0.66-1.25) mg/dL Est GFR (CKD-EPI)AfAm (>60 ml/min/1.73 sqM) Est GFR (CKD-EPI)NonAf (>60 ml/min/1.73 sqM) Glucose (74-99) mg/dL Calcium (8.4-10.2) mg/dL Magnesium (1.6-2.3) mg/dL Total Bilirubin (0.2-1.3) mg/dL AST (17-59) U/L ALT (4-49) U/L Alkaline Phosphatase (38-126) U/L Troponin I 0.013 (0.000-0.034) ng/mL NT-Pro-B Natriuret Pep pg/mL Total Protein (6.3-8.2) g/dL Albumin (3.5-5.0) g/dL Critical Care Time Critical Care Time: Yes Total Critical Care Time: 35 Disposition Clinical Impression: Acute CHF (congestive heart failure) Disposition: ADMITTED IP TO THIS HOSP Condition: Fair Referrals: Dennis Santana DO [Primary Care Provider] - 1-2 days Time of Disposition: 07:52
--- NOTE | 2024-03-04 06:53 | XR ---
EXAMINATION TYPE: XR chest 2V DATE OF EXAM: 03/04/2024 COMPARISON: Prior CT December 10, 2023 HISTORY: Difficulty in breathing. TECHNIQUE: Frontal and lateral views of the chest are obtained. FINDINGS: Low lung volumes redemonstrated. The cardiac silhouette size is more prominent. Overlyin g loop recorder is again seen. New moderate central vascular congestion and small bilateral pleural e ffusions. The osseous structures are intact. IMPRESSION: Findings consistent with CHF exacerbation/fluid overload state are noted on current stud y as detailed above.
[2024-03-04 06:55] LABS: ALT 11 U/L (4-49); AST 20 U/L (17-59); African American GFR (CKD) 16 (>60 ml/min/1.73 sqM); Albumin 3.3 g/dL (3.5-5.0); Alkaline Phosphatase 136 U/L (38-126); Blood Urea Nitrogen 45 mg/dL (9-20); Calcium 8.1 mg/dL (8.4-10.2); Carbon Dioxide 17 mmol/L (22-30); Glucose 220 mg/dL (74-99); Non-African American GFR(CKD) 14 (>60 ml/min/1.73 sqM); Total Bilirubin 0.6 mg/dL (0.2-1.3); Total Protein 5.8 g/dL (6.3-8.2)
[2024-03-04 06:57] LABS: Anion Gap 8 mmol/L; Chloride 110 mmol/L (98-107); Potassium 4.4 mmol/L (3.5-5.1); Sodium 135 mmol/L (137-145)
[2024-03-04 07:02] LABS: INR 0.9 (<1.2); Prothrombin Time 10.5 sec (10.0-12.5)
[2024-03-04 07:04] LABS: NT-Pro-B-Type Natriuretic Pept 10900 pg/mL
[2024-03-04] MEDS ORDERED: NALOXONE 0.4 MG/ML 1 ML VIAL IV PRN (07:52)
[2024-03-04] MEDS: FUROSEMIDE 10 MG/ML 4 ML VIAL IV STA (08:04)
[2024-03-04] MEDS ORDERED: FUROSEMIDE 10 MG/ML 4 ML VIAL IV SCH (09:00)
[2024-03-04] MEDS: NITROGLYCERIN OINT 1 INCH/GM PACKET TOPICAL STA (10:01)
[2024-03-04 12:04] LABS: Glucose,Whole Blood 219 mg/dL (70-110)
[2024-03-04] MEDS: INSULIN ASPART (NovoLOG) 100 UNIT/ML VIAL SQ SCH ×2 (12:39→17:47)
[2024-03-04 16:54] LABS: Glucose,Whole Blood 162 mg/dL (70-110)
--- NOTE | 2024-03-04 17:07 | P.CRDCN ---
History of Present Illness Consult date: 03/04/24 Consult reason: congestive heart failure History of present illness: This is a 78-year-old male patient of Dr. Song Fischer with past medical history of coronary artery disease, hypertension, diabetes, dyslipidemia, history of CVA, chronic kidney disease near end-stage renal disease. We have been asked to evaluate the patient for CHF. Patient presented to the hospital due to shortness of breath. Last week he had a fistula done in his arm for dialysis which was done in [place]. He was found to have an aneurysm sent to the emergency center and subsequently discharged from the hospital after a day. He saw the nephrology on Thursday increased his Lasix and he has had minimal urine output since. He has not been on dialysis as of yet. He has had a weight gain of 6 pounds. The shortness of breath has been going on for the past 2 days along with lower extremity edema. He makes very little urine normally. Patient also ran out of blood pressure medications as it was recently increased to twice and a new prescription was not provided to the pharmacy and patient had used up all of his prescription before he was due for a new one. EKG: Sinus rhythm Chest x-ray: CHF exacerbation Laboratory studies: WBC 7.1, hemoglobin 10.7, platelet count 290. Sodium 135, potassium 4.4, BUN 45 creatinine 3.95. Troponin negative x 1. proBNP 10,900. Home cardiac medications: Atorvastatin 20 mg at bedtime, Coreg 12.5 mg twice daily, Plavix 75 mg daily, Lasix 40 mg for 2 days starting on 6 and then 20 mg after, Imdur 60 mg daily, Procardia 60 mg twice daily. Echocardiogram performed 12/06/2023 revealed normal LV systolic function. Cardiac catheterization history in 2008, proximal LAD 40%, mid 50%, diagonal 50%, left circumflex 50%, nondominant RCA. [employer] EVR implanted 2020 Review Of Systems: At the time of my exam: CONSTITUTIONAL: Denies fever or chills. HEENT: Denies blurred vision, vision changes, or eye pain. Denies hemoptysis CARDIOVASCULAR: Denies chest pain. Denies orthopnea. Denies PND. Denies pa lpitations. Reports lower extremity edema RESPIRATORY: Reports shortness of breath. GASTROINTESTINAL: Denies abdominal pain. Denies nausea or vomiting. HEMATOLOGIC: Denies bleeding disorders. GENITOURINARY: Denies any blood in urine. SKIN: Denies puritis. Denies rash. Physical examination: Gen: This is 78-year-old male in no acute distress VS: reviewed, blood pressure 180/107, heart rate 82, pulse ox 99% on room air HEENT: Head is atraumatic, normocephalic. Pupils equal, round. Sclerae is a nicteric. LUNGS: Clear to auscultation. No wheezes or rhonchi. No intercostal retractions. HEART: Regular rate and rhythm. Systolic murmur at the right upper sternal border. ABDOMEN: Soft No tenderness. EXTREMITIES: Bilateral severe pedal edema. NEUROLOGICAL: Patient is awake, alert. Assessment: Acute diastolic heart failure End-stage renal disease History of coronary artery disease Hypertension Diabetes Dyslipidemia History of CVA Plan: Resume patient's home cardiac medications Continue IV Lasix 40 mg every 12 hours Monitor MARGOT, daily weights, electrolytes and renal function Add consult for nephrology Obtain repeat troponins no need to repeat echocardiogram Further recommendations to follow based upon clinical course Thank you kindly for this consultation. Nurse practitioner note has been reviewed, I agree with documented findings and plan of care. Patient was seen and examined. Past Medical History Past Medical History: CVA/TIA, Diabetes Mellitus, Hyperlipidemia, Hypertension, Liver Disease, Renal Disease, Sleep Apnea/CPAP/BIPAP Additional Past Medical History / Comment(s): ARTHRITIS, kidney stones, possible dementia, kidney failure, neuropathy alia legs, carpal tunnel. 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 balance issues,speech impairment,vision impairment, receives injections to eyes r/t bleeding ,COVID 07/28/2022 History of Any Multi-Drug Resistant Organisms: None Reported Past Surgical History: Back Surgery Additional Past Surgical History / Comment(s): MASS REMOVED FROM BACK OF HEAD, eye surgery, Past Anesthesia/Blood Transfusion Reactions: No Reported Reaction Past Psychological History: Depression Smoking Status: Never smoker Past Alcohol Use History: None Reported Past Drug Use History: None Reported - Past Family History Father Family Medical History: Diabetes Mellitus Mother Family Medical History: Diabetes Mellitus Brother(s) Family Medical History: Cancer Sister(s) Family Medical History: Cancer Medications and Allergies Home Medications Medication Instructions Recorded Confirmed Type DULoxetine HCL [Cymbalta] 30 mg PO HS 03/13/03/04/24 History Isosorbide Mononitrate ER [Imdur] 60 mg PO DAILY 03/13/16 03/04/24 History Clopidogrel [Plavix] 75 mg PO DAILY #30 tab 07/11/20 03/04/24 Rx levETIRAcetam [Keppra] 500 mg PO BID 12/11/20 03/04/24 History Atorvastatin [Lipitor] 20 mg PO HS 07/18/21 03/04/24 History Insulin Aspart [NovoLOG Flexpen] 10 units SQ AC-BID@0800,1200 07/28/21 03/04/24 History Insulin Aspart [NovoLOG Flexpen] 12 units SQ W/SUPPER 07/28/21 03/04/24 History Vitamin E 400 unit PO DAILY 11/10/21 03/04/24 History Insulin Glargine,Hum.rec.anlog 30 units SQ DAILY #0 11/12/21 03/04/24 Rx [Lantus Solostar Pen] Insulin Aspart [NovoLOG Flexpen] See Protocol SQ TID-W/MEALS PRN 02/02/22 03/04/24 History Sodium Bicarbonate Tab 650 mg PO BID #30 tab 12/08/23 03/04/24 Rx carvediloL [Coreg*] 12.5 mg PO BID-W/MEALS #60 tab 12/08/23 03/04/24 Rx Ergocalciferol (Vitamin D2) 1,250 mcg PO MO 02/24/24 03/04/24 History [Drisdol (50,000 Iu)] Furosemide [Lasix] See Taper PO DAILY 03/04/24 03/04/24 History NIFEdipine XL [Procardia XL] 60 mg PO BID 03/04/24 03/04/24 History Allergies Allergy/AdvReac Type Severity Reaction Status Date / Time No Known Allergies Allergy Verified 03/04/24 08:24 Physical Exam Vitals: Vital Signs Temp Pulse Resp BP Pulse Ox 03/04/24 12:44 85 18 198/89 99 03/04/24 11:00 80 18 183/84 98 03/04/24 10:50 81 18 183/84 98 03/04/24 10:00 78 16 183/87 99 03/04/24 09:54 81 18 183/87 100 03/04/24 09:00 80 16 180/85 99 03/04/24 08:00 76 18 197/87 98 03/04/24 07:02 209/81 03/04/24 07:00 73 16 223/91 99 03/04/24 06:19 72 20 226/93 95 03/04/24 06:12 73 18 99 03/04/24 06:03 97.8 F 73 21 222/89 96 Intake and Output 03/03/24 03/04/24 03/04/24 22:59 06:59 14:59 Output Total 550 Balance -550 Output: Urine 550 Other: Weight 92.079 kg Results 03/04/24 06:29 03/04/24 06:29 Cardiac Enzymes 03/04/24 03/04/24 Range/Units 06:29 06:29 AST 20 (17-59) U/L Troponin I 0.013 (0.000-0.034) ng/mL Coagulation 03/04/24 Range/Units 06:29 PT 10.5 (10.0-12.5) sec APTT 25.0 (22.0-30.0) sec CBC 03/04/24 Range/Units 06:29 WBC 7.1 (3.8-10.6) k/uL RBC 3.61 L (4.30-5.90) m/uL Hgb 10.7 L (13.0-17.5) gm/dL Hct 33.7 L (39.0-53.0) % Plt Count 290 (150-450) k/uL Comprehensive Metabolic Panel 03/04/24 Range/Units 06:29 Sodium 135 L (137-145) mmol/L Potassium 4.4 (3.5-5.1) mmol/L Chloride 110 H (98-107) mmol/L Carbon Dioxide 17 L (22-30) mmol/L BUN 45 H (9-20) mg/dL Creatinine 3.94 H (0.66-1.25) mg/dL Glucose 220 H (74-99) mg/dL Calcium 8.1 L (8.4-10.2) mg/dL AST 20 (17-59) U/L ALT 11 (4-49) U/L Alkaline Phosphatase 136 H (38-126) U/L Total Protein 5.8 L (6.3-8.2) g/dL Albumin 3.3 L (3.5-5.0) g/dL Current Medications Generic Name Dose Route Start Last Admin Trade Name Freq PRN Reason Stop Dose Admin Atorvastatin Calcium 20 mg 03/04/24 21:00 Atorvastatin 20 Mg Tab PO HS [facility] Carvedilol 12.5 mg 03/04/24 17:30 Carvedilol 12.5 Mg Tab PO BID-W/MEALS [facility] Clopidogrel Bisulfate 75 mg 03/05/24 09:00 Clopidogrel 75 Mg Tab PO DAILY [facility] Duloxetine HCl 30 mg 03/04/24 21:00 Duloxetine Hcl 30 Mg Capsule.Dr PO HS [facility] Ergocalciferol 1,250 mcg 03/07/24 09:00 Ergocalciferol 1,250 Mcg (50,000 Iu) Capsule PO MO [facility] Furosemide 40 mg 03/04/24 18:00 Furosemide 10 Mg/Ml 4 Ml Vial IV Q12H [facility] Hydralazine HCl 10 mg 03/04/24 09:24 Hydralazine Hcl 20 Mg/Ml 1 Ml Vial IVP Q4HR PRN Blood Pressure - High Insulin Aspart 12 unit 03/04/24 17:30 Insulin Aspart (Novolog) 100 Unit/Ml Vial SQ W/SUPPER [facility] Insulin Aspart 10 unit 03/04/24 12:00 03/04/24 12:39 Insulin Aspart (Novolog) 100 Unit/Ml Vial SQ 10 unit AC-BID@0800,1200 [facility] Administration Insulin Detemir 30 unit 03/05/24 07:00 Insulin Detemir (Levemir) 100 Unit/Ml Syr SQ DAILY@0700 [facility] Isosorbide Mononitrate 60 mg 03/05/24 09:00 Isosorbide Mononitrate Er 60 Mg Tab.Er.24h PO DAILY [facility] Levetiracetam 500 mg 03/04/24 21:00 Levetiracetam 500 Mg Tab PO BID [facility] Naloxone HCl 0.2 mg 03/04/24 07:52 Naloxone 0.4 Mg/Ml 1 Ml Vial IV Q2M PRN Opioid Reversal Nifedipine 60 mg 03/04/24 21:00 Nifedipine Xl 60 Mg Tab.Er.24 PO BID [facility] Ondansetron HCl 4 mg 03/04/24 07:52 Ondansetron 4 Mg/2 Ml Vial IVP Q8HR PRN Nausea And Vomiting Sodium Bicarbonate 650 mg 03/04/24 21:00 Sodium Bicarbonate Tab 650 Mg Tab PO BID [facility] Intake and Output 03/03/24 03/04/24 03/04/24 22:59 06:59 14:59 Output Total 550 Balance -550 Output: Urine 550 Other: Weight 92.079 kg 03/04/24 06:29 03/04/24 06:29
[2024-03-04] MEDS: carvediloL 12.5 MG TAB PO SCH (17:24)
[2024-03-04] MEDS: FUROSEMIDE 10 MG/ML 4 ML VIAL IV SCH (17:28)
[2024-03-04] MEDS ORDERED: CALCIUM CARBONATE 500 MG CHEWABLE PO PRN (19:25)
--- NOTE | 2024-03-04 19:25 | P.HPIM ---
History of Present Illness H&P Date: 03/04/24 Chief Complaint: Short of breath This is a 78-year-old patient of Dr. Santana. Chronic stable medical conditions include hyperlipidemia, diabetes, obstructive sleep apnea, osteoarthritis, kidney stones, cognitive impairment-dementia. 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 Had a loop recorder seizures. Visit his and daughter. Not a good historian Patient follows with pattern keeper Dr. Stevens. Patient was sent down to [facility], where he underwent Endo fistula placement by -around February 16.. Developed mid left brachial aneurysm. Patient seen earlier today, accompanied by his and daughter Alannah Niño. For 2 days patient been having increasing shortness of breath. Decreased appetite. Normally has about 2-3 loose stools a day. Does wear depends. Patient himself is not a good historian. Denies any chest pain. Tired. Daughter really helps with being this For this Bulgarian-speaking gentleman/fat her. Slight edema. No fever no chills Review of systems: GEN.: Tired EYES: None HEENT: None NECK: None RESPIRATORY: None CARDIOVASCULAR: As above GASTROINTESTINAL: None GENITOURINARY: None MUSCULOSKELETAL: As above LYMPHATICS: None HEMATOLOGICAL: None PSYCHIATRY: forgetful NEUROLOGICAL: weakness on the right side Past medical history to include: Diabetes, hyperlipidemia, hypertension, obstructive sleep apnea, osteoarthritis, kidney stones, cognitive impairment, stroke hypertension with right-sided weakness, depression, seizure Social history: No history of smoking or alcohol. Lives with his and daughter. Does use a walker. Daughter is the POA Physical examination: VITAL SIGNS: 98.7, 73, 21, 222.93, 95% room air this morning GENERAL: Resting in bed, tired EYES: Pupils equal. Conjunctiva normal. HEENT: External appearance of nose and ears normal, oral cavity grossly normal. NECK: JVD not raised; masses not palpable. HEART: First and second heart sounds are normal; minimal edema. EXTREMITY: Some swelling in bruising along the inner side on the left arm especially upper arm. Slight tenderness. LUNGS: Respiratory rate normal; breath sounds. ABDOMEN: Soft, no tenderness no guarding rigidity, liver spleen not palpable, no masses palpable. PSYCH: answering simple questions NEUROLOGICAL: [Cranial nerves grossly intact; no facial asymmetry, power 4/5 on the right side LYMPHATICS: No lymph nodes palpable in the axilla and neck INVESTIGATIONS, reviewed in the clinical context: March 04, 2024: White count 7.1 hemoglobin 10.7 platelets 219 sodium 135 potassium 4.4 BUN 45 creatinine 3.94 bicarb 17 Troponin I less than 0.0130.015 EKG tracing personally reviewed by me-normal sinus rhythm. Some nonspecific T wave changes. Chest x-ray film personally reviewed by me-a bit underpenetrated. Cardiomegaly. Pulm edema Previous labs 2D echocardiogram: [November 2023] EF 65 to 70%. Creatinine 2.46 on January 2023 Assessment and plan: -Acute pulmonary edema a combination of possible CHF and worsening renal function Consultation to nephrology and cardiology. 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 Neck 1.4 mm, following Endo vascular fistula creation by in the left arm. 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 On Levemir, NovoLog Follow Accu-Cheks closely. 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 Stevens -Chronic gait dysfunction uses a walker at home -Full code [Advance care planning discussed on March 04, 2024] Patient's daughter Penny who is the POA, was present so was the and the patient. Daughter was helping interpret the questions. Patient's overall condition was discussed at length. Patient has previously expressed himself to be DNR. is more inclined to be full code. Lengthy discussion was held. They will further discuss the same and get back and let us know if things are to be different. At present time patient remains to be full code.-Time spent about 30 minutes Past Medical History Past Medical History: CVA/TIA, Diabetes Mellitus, Hyperlipidemia, Hypertension, Liver Disease, Renal Disease, Sleep Apnea/CPAP/BIPAP Additional Past Medical History / Comment(s): ARTHRITIS, kidney stones, possible dementia, kidney failure, neuropathy alia legs, carpal tunnel. CVA-oct 20 balance issues,speech impairment,vision impairment, receives injections to eyes r/t bleeding ,COVID 07/28/2022 History of Any Multi-Drug Resistant Organisms: None Reported Past Surgical History: Back Surgery Additional Past Surgical History / Comment(s): MASS REMOVED FROM BACK OF HEAD, eye surgery, Past Anesthesia/Blood Transfusion Reactions: No Reported Reaction Past Psychological History: Depression Smoking Status: Never smoker Past Alcohol Use History: None Reported Past Drug Use History: None Reported - Past Family History Father Family Medical History: Diabetes Mellitus Mother Family Medical History: Diabetes Mellitus Brother(s) Family Medical History: Cancer Sister(s) Family Medical History: Cancer Medications and Allergies Home Medications Medication Instructions Recorded Confirmed Type DULoxetine HCL [Cymbalta] 30 mg PO HS 03/13/16 03/04/24 History Isosorbide Mononitrate ER [Imdur] 60 mg PO DAILY 03/13/16 03/04/24 History Clopidogrel [Plavix] 75 mg PO DAILY #30 tab 07/11/20 03/04/24 Rx levETIRAcetam [Keppra] 500 mg PO BID 12/11/20 03/04/24 History Atorvastatin [Lipitor] 20 mg PO HS 07/18/21 03/04/24 History Insulin Aspart [NovoLOG Flexpen] 10 units SQ AC-BID@0800,1200 07/28/21 03/04/24 History Insulin Aspart [NovoLOG Flexpen] 12 units SQ W/SUPPER 07/28/21 03/04/24 History Vitamin E 400 unit PO DAILY 11/10/21 03/04/24 History Insulin Glargine,Hum.rec.anlog 30 units SQ DAILY #0 11/12/21 03/04/24 Rx [Lantus Solostar Pen] Insulin Aspart [NovoLOG Flexpen] See Protocol SQ TID-W/MEALS PRN 02/02/22 03/04/24 History Sodium Bicarbonate Tab 650 mg PO BID #30 tab 12/08/23 03/04/24 Rx carvediloL [Coreg*] 12.5 mg PO BID-W/MEALS #60 tab 12/08/23 03/04/24 Rx Ergocalciferol (Vitamin D2) 1,250 mcg PO MO 02/24/24 03/04/24 History [Drisdol (50,000 Iu)] Furosemide [Lasix] See Taper PO DAILY 03/04/24 03/04/24 History NIFEdipine XL [Procardia XL] 60 mg PO BID 03/04/24 03/04/24 History Allergies Allergy/AdvReac Type Severity Reaction Status Date / Time No Known Allergies Allergy Verified 03/04/24 08:24 Physical Exam Vitals: Vital Signs Temp Pulse Resp BP Pulse Ox 03/04/24 11:00 80 18 183/84 98 03/04/24 10:50 81 18 183/84 98 03/04/24 10:00 78 16 183/87 99 03/04/24 09:54 81 18 183/87 100 03/04/24 09:00 80 16 180/85 99 03/04/24 08:00 76 18 197/87 98 03/04/24 07:02 209/81 03/04/24 07:00 73 16 223/91 99 03/04/24 06:19 72 20 226/93 95 03/04/24 06:12 73 18 99 03/04/24 06:03 97.8 F 73 21 222/89 96 Intake and Output 03/03/24 03/04/24 03/04/24 22:59 06:59 14:59 Other: Weight 92.079 kg Results CBC & Chem 7: 03/04/24 06:29 03/04/24 06:29 Labs: Abnormal Lab Results - Last 24 Hours (Table) 03/04/24 03/04/24 03/04/24 Range/Units 06:29 06:29 12:03 RBC 3.61 L (4.30-5.90) m/uL Hgb 10.7 L (13.0-17.5) gm/dL Hct 33.7 L (39.0-53.0) % Sodium 135 L (137-145) mmol/L Chloride 110 H (98-107) mmol/L Carbon Dioxide 17 L (22-30) mmol/L BUN 45 H (9-20) mg/dL Creatinine 3.94 H (0.66-1.25) mg/dL Glucose 220 H (74-99) mg/dL POC Glucose (mg/dL) 219 H (70-110) mg/dL Calcium 8.1 L (8.4-10.2) mg/dL Alkaline Phosphatase 136 H (38-126) U/L Total Protein 5.8 L (6.3-8.2) g/dL Albumin 3.3 L (3.5-5.0) g/dL
[2024-03-04] MEDS: DULoxetine HCL 30 MG CAPSULE.DR PO SCH (21:20)
[2024-03-04] MEDS: ATORVASTATIN 20 MG TAB PO SCH (21:20)
[2024-03-04] MEDS: SODIUM BICARBONATE TAB 650 MG TAB PO SCH (21:20)
[2024-03-04] MEDS: levETIRAcetam 500 MG TAB PO SCH (21:20)
[2024-03-05] MEDS: hydrALAZINE HCL 20 MG/ML 1 ML VIAL IVP PRN (00:02)
[2024-03-05] MEDS: INSULIN DETEMIR (LEVEMIR) 100 UNIT/ML SYR SQ SCH (06:31)
[2024-03-05 06:33] LABS: Glucose,Whole Blood 255 mg/dL (70-110)
--- NOTE | 2024-03-05 09:03 | P.PN ---
Subjective Progress Note Date: 03/05/24 Principal diagnosis: Hypertension emergency The patient is a 78-year-old gentleman with coronary artery disease as well as heart failure with a preserved ejection fraction and end-stage renal disease and hypertensive heart disease as well as diabetes and hypertension and dyslipidemia and CVA was admitted to the hospital with hypertension emergency complicated by heart failure. March 05, 2024 The patient was seen and evaluated this morning. He is feeling somewhat better. No pain in the chest. The shortness of breath is better. The pressure remains elevated. I am going to increase the dose of isosorbide mononitrate from 60 mg p.o. daily to 120 mg p.o. daily. Beside that the examination is remarkable for regular rhythm with a distant heart sounds and diminished breathing sounds bilaterally and no edema was noted today. Assessment Hypertension emergency Heart failure with preserved ejection fraction Coronary artery disease Multiple comorbid conditions including diabetes and hypertension and dyslipidemia and overweight and history of stroke Plan Continue the current medical regimen Increase the dose of isosorbide mononitrate Follow-up with the patient Objective - Vital Signs Vital signs: Vital Signs Temp 98.1 F 03/04/24 21:00 Pulse 78 03/05/24 03:57 Resp 16 03/05/24 03:57 BP 146/56 03/05/24 03:57 Pulse Ox 94 L 03/05/24 03:57 FiO2 Intake & Output 03/04/24 03/05/24 03/05/24 18:59 06:59 18:59 Output Total 750 240 Balance -750 -240 Weight 94 kg Output: Urine 750 240 Other: Voiding Method Toilet Urinal - Labs CBC & Chem 7: 03/04/24 06:29 03/04/24 06:29 Labs: Abnormal Lab Results - Last 24 Hours (Table) 03/04/24 03/04/24 03/05/24 Range/Units 12:03 16:52 06:31 POC Glucose (mg/dL) 219 H 162 H 255 H (70-110) mg/dL
[2024-03-05] MEDS: CLOPIDOGREL 75 MG TAB PO SCH (09:30)
[2024-03-05] MEDS: ISOSORBIDE MONONITRATE ER 60 MG TAB.ER.24H PO SCH ×2 (09:31→11:22)
--- NOTE | 2024-03-05 09:32 | P.GSCN ---
History of Present Illness Consult date: 03/05/24 History of present illness: Patient is a 78-year-old male with history of coronary artery disease, hypertension, hyperlipidemia, chronic kidney disease near end-stage renal disease, history of CVA who presented to the hospital due to shortness of breath. Recently he was in [place] for a endovascular fistula creation. Subsequent to that he developed a pseudoaneurysm and was seen here by our service on 02/25/2024. He was sent home and had an ultrasound for follow-up in our office which did show thrombosis of the pseudoaneurysm portion. He has been doing relatively okay since then without any significant changes. He has been out of blood pressure medications at home as with his increase of medications he utilized all of his home medications and was not provided any further with pharmacy. Past Medical History Past Medical History: CVA/TIA, Diabetes Mellitus, Hyperlipidemia, Hypertension, Liver Disease, Renal Disease, Sleep Apnea/CPAP/BIPAP Additional Past Medical History / Comment(s): ARTHRITIS, kidney stones, possible dementia, kidney failure, neuropathy alia legs, carpal tunnel. CVA-oct 20 balance issues,speech impairment,vision impairment, receives injections to eyes r/t bleeding ,COVID 07/28/2022 History of Any Multi-Drug Resistant Organisms: None Reported Past Surgical History: Back Surgery, Cholecystectomy Additional Past Surgical History / Comment(s): MASS REMOVED FROM BACK OF HEAD, eye surgery, Past Anesthesia/Blood Transfusion Reactions: No Reported Reaction Past Psychological History: Depression Smoking Status: Never smoker Past Alcohol Use History: None Reported Past Drug Use History: None Reported - Past Family History Father Family Medical History: Diabetes Mellitus Mother Family Medical History: Diabetes Mellitus Brother(s) Family Medical History: Cancer Sister(s) Family Medical History: Cancer Medications and Allergies Home Medications Medication Instructions Recorded Confirmed Type DULoxetine HCL [Cymbalta] 30 mg PO HS 03/13/16 03/04/24 History Isosorbide Mononitrate ER [Imdur] 60 mg PO DAILY 03/13/16 03/04/24 History Clopidogrel [Plavix] 75 mg PO DAILY #30 tab 07/11/20 03/04/24 Rx levETIRAcetam [Keppra] 500 mg PO BID 12/11/20 03/04/24 History Atorvastatin [Lipitor] 20 mg PO HS 07/18/21 03/04/24 History Insulin Aspart [NovoLOG Flexpen] 10 units SQ AC-BID@0800,1200 07/28/21 03/04/24 History Insulin Aspart [NovoLOG Flexpen] 12 units SQ W/SUPPER 07/28/21 03/04/24 History Vitamin E 400 unit PO DAILY 11/10/21 03/04/24 History Insulin Glargine,Hum.rec.anlog 30 units SQ DAILY #0 11/12/21 03/04/24 Rx [Lantus Solostar Pen] Insulin Aspart [NovoLOG Flexpen] See Protocol SQ TID-W/MEALS PRN 02/02/22 03/04/24 History Sodium Bicarbonate Tab 650 mg PO BID #30 tab 12/08/23 03/04/24 Rx carvediloL [Coreg*] 12.5 mg PO BID-W/MEALS #60 tab 12/08/23 03/04/24 Rx Ergocalciferol (Vitamin D2) 1,250 mcg PO MO 02/24/24 03/04/24 History [Drisdol (50,000 Iu)] Furosemide [Lasix] See Taper PO DAILY 03/04/24 03/04/24 History NIFEdipine XL [Procardia XL] 60 mg PO BID 03/04/24 03/04/24 History Allergies Allergy/AdvReac Type Severity Reaction Status Date / Time No Known Allergies Allergy Verified 03/04/24 08:24 Surgical - Exam Vital Signs Temp Pulse Resp BP Pulse Ox 97.8 F 73 21 222/89 96 03/04/24 06:03 03/04/24 06:03 03/04/24 06:03 03/04/24 06:03 03/04/24 06:03 General is a pleasant cooperative sleepy male in no acute distress. Wolof- speaking. Decreased breath sounds. Abdomen is soft. Left upper extremity warm and dry. No appreciable pseudoaneurysm. Minimal swelling. Results Labs are reviewed. - Labs 03/04/24 06:29 03/04/24 06:29 Abnormal Lab Results - Last 24 Hours (Table) 03/04/24 03/04/24 03/05/24 Range/Units 12:03 16:52 06:31 POC Glucose (mg/dL) 219 H 162 H 255 H (70-110) mg/dL Assessment and Plan Assessment: Chronic kidney disease near end-stage renal disease Hypertension Heart failure with preserved ejection fraction Plan: Continue supportive care at this time. No further plans for intervention. Will be available to place tunneled catheter at the beginning of the week should it become necessary., Or temporary if the need emergently. Currently labs appear stable with no evidence of hyperkalemia
[2024-03-05] MEDS: ONDANSETRON 4 MG/2 ML VIAL IVP PRN (09:36)
--- NOTE | 2024-03-05 10:40 | P.NPCON ---
History of Present Illness - Reason for Consult chronic renal failure - History of Present Illness Reason for consultation: Chronic kidney disease History of present illness: Patient is a 78-year-old male seen in renal consultation for chronic kidney disease. Patient has chronic kidney disease stage V with baseline creatinine near 4. Etiology is diabetic kidney disease. Patient underwent AV fistula s urgery February 16, 2024. He subsequently developed a pseudoaneurysm and was again seen by vascular surgery. Patient came to the hospital due to shortness of breath which began Thursday and progressively got worse. Oral intake has been poor the last few days. He does admit to loose bowel movements but states is chronic. He has longstanding history of diabetes. Denies history of coronary artery disease. Patient states that he does have a loop recorder. He has been voiding. Denies gross hematuria or dysuria. Denies chest pain. Creatinine 3.94 yesterday. He is currently on IV Lasix. Chest x-ray suggestive of fluid overload. Patient's blood pressure was over 200 systolic on admission. Now better controlled. Vital signs are stable. General: No acute distress. HEENT: Head exam is unremarkable. LUNGS: No audible rhonchi or wheezes. HEART: Rate and Rhythm are regular. ABDOMEN: Nontender. EXTREMITITES: No edema. Past Medical History Past Medical History: CVA/TIA, Diabetes Mellitus, Hyperlipidemia, Hypertension, Liver Disease, Renal Disease, Sleep Apnea/CPAP/BIPAP Additional Past Medical History / Comment(s): ARTHRITIS, kidney stones, possible dementia, kidney failure, neuropathy alia legs, carpal tunnel. CVA-oct 20 balance issues,speech impairment,vision impairment, receives injections to eyes r/t bleeding ,COVID 07/28/2022 History of Any Multi-Drug Resistant Organisms: None Reported Past Surgical History: Back Surgery, Cholecystectomy Additional Past Surgical History / Comment(s): MASS REMOVED FROM BACK OF HEAD, eye surgery, Past Anesthesia/Blood Transfusion Reactions: No Reported Reaction Past Psychological History: Depression Smoking Status: Never smoker Past Alcohol Use History: None Reported Past Drug Use History: None Reported - Past Family History Father Family Medical History: Diabetes Mellitus Mother Family Medical History: Diabetes Mellitus Brother(s) Family Medical History: Cancer Sister(s) Family Medical History: Cancer Medications and Allergies Home Medications Medication Instructions Recorded Confirmed Type DULoxetine HCL [Cymbalta] 30 mg PO HS 03/13/16 03/04/24 History Isosorbide Mononitrate ER [Imdur] 60 mg PO DAILY 03/13/16 03/04/24 History Clopidogrel [Plavix] 75 mg PO DAILY #30 tab 07/11/20 03/04/24 Rx levETIRAcetam [Keppra] 500 mg PO BID 12/11/20 03/04/24 History Atorvastatin [Lipitor] 20 mg PO HS 07/18/21 03/04/24 History Insulin Aspart [NovoLOG Flexpen] 10 units SQ AC-BID@0800,1200 07/28/21 03/04/24 History Insulin Aspart [NovoLOG Flexpen] 12 units SQ W/SUPPER 07/28/21 03/04/24 History Vitamin E 400 unit PO DAILY 11/10/21 03/04/24 History Insulin Glargine,Hum.rec.anlog 30 units SQ DAILY #0 11/12/21 03/04/24 Rx [Lantus Solostar Pen] Insulin Aspart [NovoLOG Flexpen] See Protocol SQ TID-W/MEALS PRN 02/02/22 03/04/24 History Sodium Bicarbonate Tab 650 mg PO BID #30 tab 12/08/23 03/04/24 Rx carvediloL [Coreg*] 12.5 mg PO BID-W/MEALS #60 tab 12/08/23 03/04/24 Rx Ergocalciferol (Vitamin D2) 1,250 mcg PO MO 02/24/24 03/04/24 History [Drisdol (50,000 Iu)] Furosemide [Lasix] See Taper PO DAILY 03/04/24 03/04/24 History NIFEdipine XL [Procardia XL] 60 mg PO BID 03/04/24 03/04/24 History Allergies Allergy/AdvReac Type Severity Reaction Status Date / Time No Known Allergies Allergy Verified 03/04/24 08:24 Physical Exam Vitals: Vital Signs Temp Pulse Pulse Resp BP BP Pulse Ox 03/05/24 03:57 78 16 146/56 94 L 03/05/24 00:00 79 20 217/85 99 03/04/24 21:00 98.1 F 72 24 207/78 99 03/04/24 19:34 62 19 167/81 99 03/04/24 18:49 67 18 198/88 99 03/04/24 17:34 70 20 184/81 100 03/04/24 14:00 75 20 177/88 100 03/04/24 13:00 82 20 177/107 99 03/04/24 12:44 85 18 198/89 99 03/04/24 12:00 79 20 184/78 98 03/04/24 11:00 80 18 183/84 98 03/04/24 10:50 81 18 183/84 98 Intake and Output 03/04/24 03/05/24 03/05/24 22:59 06:59 14:59 Output Total 440 Balance -440 Output: Urine 440 Other: Voiding Method Toilet Toilet Urinal Urinal Weight 92.079 kg 94 kg Results - Lab Results Most recent lab results Calcium 8.1 mg/dL (8.4-10.2) L 03/04/24 06:29 Magnesium 2.0 mg/dL (1.6-2.3) 03/04/24 06:29 03/04/24 06:29 03/04/24 06:29 Assessment and Plan Plan: Assessment: 1. Chronic kidney disease stage V secondary to diabetic kidney disease. Patient underwent AV fistula surgery February 16, 2024 and is being followed by vascular surgery. GFR near baseline. 2. Volume overload. 3. Diabetes mellitus. 4. Hypertensive emergency. Blood pressure now better controlled. 5. Metabolic acidosis secondary to chronic kidney disease maintained on oral bicarb. 6. Acute on chronic diastolic CHF. Plan: Maintain IV Lasix. Maintain antihypertensives. Currently on Coreg, Lasix, Imdur , Nifedipine. Low-salt diet and 1500 cc fluid restriction. Continue to monitor renal function and urine output. Continue to assess daily for need for renal placement therapy. No urgency at this time. Case discussed with family present at bedside. Thank you for the consultation. I will continue to follow the patient with you during his hospital stay.
[2024-03-05 11:41] LABS: Glucose,Whole Blood 210 mg/dL (70-110)
[2024-03-05 16:41] LABS: Glucose,Whole Blood 68 mg/dL (70-110)
[2024-03-05 16:58] LABS: Glucose,Whole Blood 93 mg/dL (70-110)
[2024-03-05 19:10] LABS: African American GFR (CKD) 14 (>60 ml/min/1.73 sqM); Anion Gap 5 mmol/L; Blood Urea Nitrogen 48 mg/dL (9-20); Calcium 8.1 mg/dL (8.4-10.2); Carbon Dioxide 20 mmol/L (22-30); Chloride 111 mmol/L (98-107); Glucose 84 mg/dL (74-99); Non-African American GFR(CKD) 12 (>60 ml/min/1.73 sqM); Potassium 4.1 mmol/L (3.5-5.1); Sodium 136 mmol/L (137-145)
--- NOTE | 2024-03-05 19:16 | P.PN ---
Progress Note - Text Progress Note Date: 03/05/24 Chief Complaint: Short of breath This is a 78-year-old, Senegalese-speaking patient of Dr. Santana. Chronic stable medical conditions include hyperlipidemia, diabetes, obstructive sleep apnea, osteoarthritis, kidney stones, cognitive impairment-dementia. 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 Had a loop recorder seizures. Visit his and daughter. Not a good historian Patient follows with fee clerk Dr. Stevens. Patient was sent down to [place], where he underwent Endo fistula placement by -around February 16.. Developed mid left brachial aneurysm. Patient seen earlier today, accompanied by his and daughter Alannah Niño. For 2 days patient been having increasing shortness of breath. Decreased appetite. Normally has about 2-3 loose stools a day. Does wear depends. Patient himself is not a good historian. Denies any chest pain. Tired. Daughter really helps with being this For this Senegalese-speaking gentleman/father. Slight edema. No fever no chills March 05: Laying in bed. is present. Patient did eat some. Blood pressure is better. Some improvement in shortness of breath. Currently no dialysis per nephrology. Active Medications Acetaminophen (Acetaminophen Tab 325 Mg Tab) 650 mg PO Q6HR PRN PRN Reason: Mild Pain or Fever > 100.5 Atorvastatin Calcium (Atorvastatin 20 Mg Tab) 20 mg PO [facility] Last Admin: 03/04/24 21:20 Dose: 20 mg Calcium Carbonate/Glycine (Calcium Carbonate 500 Mg Chewable) 1,000 mg PO Q4HR PRN PRN Reason: Dyspepsia Carvedilol (Carvedilol 12.5 Mg Tab) 12.5 mg PO BID-W/MEALS [facility] Last Admin: 03/05/24 17:31 Dose: 12.5 mg Clopidogrel Bisulfate (Clopidogrel 75 Mg Tab) 75 mg PO DAILY [facility] Last Admin: 03/05/24 09:30 Dose: 75 mg Duloxetine HCl (Duloxetine Hcl 30 Mg Capsule.) 30 mg PO [facility] Last Admin: 03/04/24 21:20 Dose: 30 mg Ergocalciferol (Ergocalciferol 1,250 Mcg (50,000 Iu) Capsule) 1,250 mcg PO MO [facility] Furosemide (Furosemide 10 Mg/Ml 4 Ml Vial) 40 mg IV Q12H [facility] Last Admin: 03/05/24 17:31 Dose: 40 mg Hydralazine HCl (Hydralazine Hcl 20 Mg/Ml 1 Ml Vial) 10 mg IVP Q4HR PRN PRN Reason: Blood Pressure - High Last Admin: 03/05/24 00:02 Dose: 10 mg Insulin Aspart (Insulin Aspart (Novolog) 100 Unit/Ml Vial) 12 unit SQ W/SUPPER [facility] Last Admin: 03/05/24 17:24 Dose: Not Given Insulin Aspart (Insulin Aspart (Novolog) 100 Unit/Ml Vial) 10 unit SQ AC- BID@0800,1200 [facility] Last Admin: 03/05/24 12:34 Dose: 10 unit Insulin Detemir (Insulin Detemir (Levemir) 100 Unit/Ml Syr) 30 unit SQ DAILY@0700 [facility] Last Admin: 03/05/24 06:31 Dose: 30 unit Isosorbide Mononitrate (Isosorbide Mononitrate Er 60 Mg Tab.Er.24h) 120 mg PO DAILY [facility] Last Admin: 03/05/24 09:31 Dose: 120 mg Lactulose (Lactulose 20 Gm/30 Ml Cup) 20 gm PO DAILY PRN PRN Reason: Constipation Levetiracetam (Levetiracetam 500 Mg Tab) 500 mg PO BID [facility] Last Admin: 03/05/24 09:30 Dose: 500 mg Lorazepam (Lorazepam 0.5 Mg Tab) 0.5 mg PO Q6HR PRN PRN Reason: Anxiety Naloxone HCl (Naloxone 0.4 Mg/Ml 1 Ml Vial) 0.2 mg IV Q2M PRN PRN Reason: Opioid Reversal Nifedipine (Nifedipine Xl 60 Mg Tab.Er.24) 60 mg PO BID [facility] Last Admin: 03/05/24 09:30 Dose: 60 mg Ondansetron HCl (Ondansetron 4 Mg/2 Ml Vial) 4 mg IVP Q8HR PRN PRN Reason: Nausea And Vomiting Last Admin: 03/05/24 09:36 Dose: 4 mg Sodium Bicarbonate (Sodium Bicarbonate Tab 650 Mg Tab) 650 mg PO BID [facility] Last Admin: 03/05/24 09:30 Dose: 650 mg Past medical history to include: Diabetes, hyperlipidemia, hypertension, obstructive sleep apnea, osteoarthritis, kidney stones, cognitive impairment, stroke hypertension with right-sided weakness, depression, seizure Social history: No history of smoking or alcohol. Lives with his and daughter. Does use a walker. Daughter is the POA Physical examination: VITAL SIGNS: 98.1, 85, 18, 138 x 64, 95% room air GENERAL: Resting in bed, EYES: Pupils equal. Conjunctiva normal. HEENT: External appearance of nose and ears normal, oral cavity grossly normal. NECK: JVD not raised; masses not palpable. HEART: First and second heart sounds are normal; minimal edema. EXTREMITY: Some swelling in bruising along the inner side on the left arm especially upper arm. Slight tenderness. LUNGS: Respiratory rate normal; breath sounds. ABDOMEN: Soft, no tenderness no guarding rigidity, liver spleen not palpable, no masses palpable. PSYCH: answering simple questions NEUROLOGICAL: [Cranial nerves grossly intact; no facial asymmetry, power 4/5 on the right side INVESTIGATIONS, reviewed in the clinical context: March 05: Sodium 136 potassium 4.1 BUN 48 creatinine 4.43 March 04, 2024: White count 7.1 hemoglobin 10.7 platelets 219 sodium 135 potassium 4.4 BUN 45 creatinine 3.94 bicarb 17 Troponin I less than 0.0130.015 EKG tracing personally reviewed by me-normal sinus rhythm. Some nonspecific T wave changes. Chest x-ray film personally reviewed by me-a bit underpenetrated. Cardiomegaly. Pulm edema Previous labs 2D echocardiogram: [November 2023] EF 65 to 70%. Creatinine 2.46 on January 2023 Assessment and plan: -Acute pulmonary edema a combination of possible CHF and worsening renal function Followed by nephrology and cardiology. Lasix 40 mg IV every 12. 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 Neck 1.4 mm, following Endo vascular fistula creation by in the left arm. 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 On Levemir, NovoLog Follow Accu-Cheks closely. 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 Stevens -Chronic gait dysfunction uses a walker at home -Full code [Advance care planning discussed on March 04, 2024] Patient's daughter Penny who is the POA, was present so was the and the patient. Daughter was helping interpret the questions. Patient's overall condition was discussed at length. Patient has previously expressed himself to be DNR. is more inclined to be full code. Lengthy discussion was held. They will further discuss the same and get back and let us know if things are to be different. At present time patient remains to be full code.-Time spent about 30 minutes Past Medical History Past Medical History: CVA/TIA, Diabetes Mellitus, Hyperlipidemia, Hypertension, Liver Disease, Renal Disease, Sleep Apnea/CPAP/BIPAP Additional Past Medical History / Comment(s): ARTHRITIS, kidney stones, possible dementia, kidney failure, neuropathy alia legs, carpal tunnel. CVA-oct 20 balance issues,speech impairment,vision impairment, receives injections to eyes r/t bleeding ,COVID 07/28/2022 History of Any Multi-Drug Resistant Organisms: None Reported Past Surgical History: Back Surgery Additional Past Surgical History / Comment(s): MASS REMOVED FROM BACK OF HEAD, eye surgery, Past Anesthesia/Blood Transfusion Reactions: No Reported Reaction Past Psychological History: Depression Smoking Status: Never smoker Past Alcohol Use History: None Reported Past Drug Use History: None Reported
[2024-03-05 20:19] LABS: Glucose,Whole Blood 86 mg/dL (70-110)
[2024-03-06 06:21] LABS: Glucose,Whole Blood 75 mg/dL (70-110)
--- NOTE | 2024-03-06 08:58 | P.PN ---
Subjective Progress Note Date: 03/06/24 Principal diagnosis: Hypertension emergency The patient is a 78-year-old gentleman with coronary artery disease as well as heart failure with a preserved ejection fraction and end-stage renal disease and hypertensive heart disease as well as diabetes and hypertension and dyslipidemia and CVA was admitted to the hospital with hypertension emergency complicated by heart failure. March 05, 2024 The patient was seen and evaluated this morning. He is feeling somewhat better. No pain in the chest. The shortness of breath is better. The pressure remains elevated. I am going to increase the dose of isosorbide mononitrate from 60 mg p.o. daily to 120 mg p.o. daily. Beside that the examination is remarkable for regular rhythm with a distant heart sounds and diminished breathing sounds bilaterally and no edema was noted today. March 06, 2024 The patient was seen and evaluated this morning. He is feeling better. No pain in the chest and the shortness of breath has improved. The pressure has been under excellent control on the current medical regimen. The physical exa mination is remarkable for stable vital signs with regular rate and rhythm and systolic murmur at the right upper sternal border and diminished breathing sounds bilaterally and mild bilateral lower extremities edema Assessment Hypertension emergency which has improved Heart failure with preserved ejection fraction Coronary artery disease Multiple comorbid conditions including diabetes and hypertension and dyslipidemia and overweight and history of stroke Plan Continue the current medical regimen Recent echo showed normal LV systolic function with evidence of hypertensive heart disease Follow-up with the patient Objective - Vital Signs Vital signs: Vital Signs Temp 97.6 F 03/06/24 08:00 Pulse 65 03/06/24 08:00 Resp 18 03/06/24 08:00 BP 122/64 03/06/24 08:00 Pulse Ox 93 L 03/06/24 08:00 FiO2 Intake & Output 03/05/24 03/06/24 03/06/24 18:59 06:59 18:59 Intake Total 604 540 180 Output Total 50 Balance 604 490 180 Weight 90.6 kg Intake: IV 10 Invasive Line 2 10 Oral 594 540 180 Output: Urine 50 Other: Voiding Method Toilet Urinal # Voids 3 # Bowel Movements 1 - Labs CBC & Chem 7: 03/04/24 06:29 03/05/24 18:28 Labs: Abnormal Lab Results - Last 24 Hours (Table) 03/05/24 03/05/24 03/05/24 Range/Units 11:40 16:39 18:28 Sodium 136 L (137-145) mmol/L Chloride 111 H (98-107) mmol/L Carbon Dioxide 20 L (22-30) mmol/L BUN 48 H (9-20) mg/dL Creatinine 4.43 H (0.66-1.25) mg/dL POC Glucose (mg/dL) 210 H 68 L (70-110) mg/dL Calcium 8.1 L (8.4-10.2) mg/dL
[2024-03-06 09:00] LABS: African American GFR (CKD) 12 (>60 ml/min/1.73 sqM); Anion Gap 6 mmol/L; Blood Urea Nitrogen 47 mg/dL (9-20); Calcium 8.4 mg/dL (8.4-10.2); Carbon Dioxide 20 mmol/L (22-30); Chloride 110 mmol/L (98-107); Glucose 81 mg/dL (74-99); Magnesium 1.9 mg/dL (1.6-2.3); Non-African American GFR(CKD) 11 (>60 ml/min/1.73 sqM); Potassium 4.2 mmol/L (3.5-5.1); Sodium 136 mmol/L (137-145)
--- NOTE | 2024-03-06 09:06 | P.PN ---
Subjective Progress Note Date: 03/06/24 Patient seen and examined. No complaints. Overall feeling little better Objective - Vital Signs Vital signs: Vital Signs Temp 97.6 F 03/06/24 08:00 Pulse 65 03/06/24 08:00 Resp 18 03/06/24 08:00 BP 122/64 03/06/24 08:00 Pulse Ox 93 L 03/06/24 08:00 FiO2 Intake & Output 03/05/24 03/06/24 03/06/24 18:59 06:59 18:59 Intake Total 604 540 180 Output Total 50 Balance 604 490 180 Weight 90.6 kg Intake: IV 10 Invasive Line 2 10 Oral 594 540 180 Output: Urine 50 Other: Voiding Method Toilet Urinal # Voids 3 # Bowel Movements 1 - Exam No acute distress resting comfortably. Mild anasarca. Palpable left upper extremity pulse - Labs CBC & Chem 7: 03/04/24 06:29 03/06/24 07:26 Labs: Abnormal Lab Results - Last 24 Hours (Table) 03/05/24 03/05/24 03/05/24 Range/Units 11:40 16:39 18:28 Sodium 136 L (137-145) mmol/L Chloride 111 H (98-107) mmol/L Carbon Dioxide 20 L (22-30) mmol/L BUN 48 H (9-20) mg/dL Creatinine 4.43 H (0.66-1.25) mg/dL POC Glucose (mg/dL) 210 H 68 L (70-110) mg/dL Calcium 8.1 L (8.4-10.2) mg/dL 03/06/24 Range/Units 07:26 Sodium 136 L (137-145) mmol/L Chloride 110 H (98-107) mmol/L Carbon Dioxide 20 L (22-30) mmol/L BUN 47 H (9-20) mg/dL Creatinine 4.89 H (0.66-1.25) mg/dL POC Glucose (mg/dL) (70-110) mg/dL Calcium (8.4-10.2) mg/dL Assessment and Plan Assessment: Chronic kidney disease near end-stage renal disease Hypertension Heart failure with preserved ejection fraction Plan: Continue supportive care at this time. Will be available to place tunneled catheter at the beginning of the week should it become necessary, await nephrology recommendations. Currently labs appear stable with no evidence of hyperkalemia.
--- NOTE | 2024-03-06 10:34 | P.PN ---
Subjective Patient is seen in follow-up for chronic kidney disease. Hemodynamically stable. On IV Lasix. Urine output 50 cc overnight. Oral intake is poor. Also confused. Family present at bedside. Vital signs are stable. General: No acute distress. HEENT: Head exam is unremarkable. LUNGS: No audible rhonchi or wheezes. HEART: Rate and Rhythm are regular. ABDOMEN: No distention. EXTREMITITES: Trace edema. Objective - Vital Signs Vital signs: Vital Signs Temp 97.6 F 03/06/24 08:00 Pulse 65 03/06/24 08:00 Resp 18 03/06/24 08:00 BP 122/64 03/06/24 08:00 Pulse Ox 93 L 03/06/24 08:00 FiO2 Intake & Output 03/05/24 03/06/24 03/06/24 18:59 06:59 18:59 Intake Total 604 540 180 Output Total 50 Balance 604 490 180 Weight 90.6 kg Intake: IV 10 Invasive Line 2 10 Oral 594 540 180 Output: Urine 50 Other: Voiding Method Toilet Urinal # Voids 3 # Bowel Movements 1 - Labs CBC & Chem 7: 03/04/24 06:29 03/06/24 07:26 Labs: Abnormal Lab Results - Last 24 Hours (Table) 03/05/24 03/05/24 03/05/24 Range/Units 11:40 16:39 18:28 Sodium 136 L (137-145) mmol/L Chloride 111 H (98-107) mmol/L Carbon Dioxide 20 L (22-30) mmol/L BUN 48 H (9-20) mg/dL Creatinine 4.43 H (0.66-1.25) mg/dL POC Glucose (mg/dL) 210 H 68 L (70-110) mg/dL Calcium 8.1 L (8.4-10.2) mg/dL 03/06/24 Range/Units 07:26 Sodium 136 L (137-145) mmol/L Chloride 110 H (98-107) mmol/L Carbon Dioxide 20 L (22-30) mmol/L BUN 47 H (9-20) mg/dL Creatinine 4.89 H (0.66-1.25) mg/dL POC Glucose (mg/dL) (70-110) mg/dL Calcium (8.4-10.2) mg/dL Assessment and Plan Plan: Assessment: 1. Chronic kidney disease stage V secondary to diabetic kidney disease. Patient underwent AV fistula surgery February 16, 2024 and is being followed by vascular surgery. Creatinine 4.89 today. 2. Volume overload. 3. Diabetes mellitus. 4. Hypertensive emergency. Blood pressure now better controlled. 5. Metabolic acidosis secondary to chronic kidney disease maintained on oral bicarb. Stable. 6. Acute on chronic diastolic CHF. Plan: Stop scheduled IV Lasix twice daily. Will give Lasix 80 mg IV once today. Low-salt diet and 1500 cc fluid restriction. Continue to monitor renal function and urine output. With worsening renal failure, volume overload and also concern for uremia, initiate renal replacement therapy. Consult vascular surgery for permacath placement. Plan for first treatment of hemodialysis either today or tomorrow depending on when the permacath goes in. Check phosphorus level.
[2024-03-06 11:23] LABS: Glucose,Whole Blood 141 mg/dL (70-110)
[2024-03-06] MEDS: FUROSEMIDE 10 MG/ML 10 ML VIAL IV ONE (13:04)
[2024-03-06] MEDS: SODIUM CHLORIDE 0.9% 500 ML 500 ML IV ONE (15:10)
--- NOTE | 2024-03-06 15:12 | P.GSCN ---
History of Present Illness History of present illness: 78-year-old gentleman history of chronic renal failure consulted for placement of a dialysis catheter patient is on Plavix Patient neck is supple no bruit appreciated chest few crackles the lung bases first second sound present Abdomen soft nontender femorals are 1+ bilateral plan is placement dialysis catheter risk and medication discussed Past Medical History Past Medical History: CVA/TIA, Diabetes Mellitus, Hyperlipidemia, Hypertension, Liver Disease, Renal Disease, Sleep Apnea/CPAP/BIPAP Additional Past Medical History / Comment(s): ARTHRITIS, kidney stones, possible dementia, kidney failure, neuropathy alia legs, carpal tunnel. CVA-jul 17 balance issues,speech impairment,vision impairment, receives injections to eyes r/t bleeding ,COVID 07/28/2022 History of Any Multi-Drug Resistant Organisms: None Reported Past Surgical History: Back Surgery, Cholecystectomy Additional Past Surgical History / Comment(s): MASS REMOVED FROM BACK OF HEAD, eye surgery, Past Anesthesia/Blood Transfusion Reactions: No Reported Reaction Past Psychological History: Depression Smoking Status: Never smoker Past Alcohol Use History: None Reported Past Drug Use History: None Reported - Past Family History Father Family Medical History: Diabetes Mellitus Mother Family Medical History: Diabetes Mellitus Brother(s) Family Medical History: Cancer Sister(s) Family Medical History: Cancer Medications and Allergies Home Medications Medication Instructions Recorded Confirmed Type DULoxetine HCL [Cymbalta] 30 mg PO HS 03/13/16 03/04/24 History Isosorbide Mononitrate ER [Imdur] 60 mg PO DAILY 03/13/16 03/04/24 History Clopidogrel [Plavix] 75 mg PO DAILY #30 tab 07/11/20 03/04/24 Rx levETIRAcetam [Keppra] 500 mg PO BID 12/11/20 03/04/24 History Atorvastatin [Lipitor] 20 mg PO HS 07/18/21 03/04/24 History Insulin Aspart [NovoLOG Flexpen] 10 units SQ AC-BID@0800,1200 07/28/21 03/04/24 History Insulin Aspart [NovoLOG Flexpen] 12 units SQ W/SUPPER 07/28/21 03/04/24 History Vitamin E 400 unit PO DAILY 11/10/21 03/04/24 History Insulin Glargine,Hum.rec.anlog 30 units SQ DAILY #0 11/12/21 03/04/24 Rx [Lantus Solostar Pen] Insulin Aspart [NovoLOG Flexpen] See Protocol SQ TID-W/MEALS PRN 02/02/22 History Sodium Bicarbonate Tab 650 mg PO BID #30 tab 12/08/23 03/04/24 Rx carvediloL [Coreg*] 12.5 mg PO BID-W/MEALS #60 tab 12/08/23 03/04/24 Rx Ergocalciferol (Vitamin D2) 1,250 mcg PO MO 02/24/24 03/04/24 History [Drisdol (50,000 Iu)] Furosemide [Lasix] See Taper PO DAILY 03/04/24 03/04/24 History NIFEdipine XL [Procardia XL] 60 mg PO BID 03/04/24 03/04/24 History Allergies Allergy/AdvReac Type Severity Reaction Status Date / Time No Known Allergies Allergy Verified 03/04/24 08:24 Surgical - Exam Vital Signs Temp Pulse Resp BP Pulse Ox 97.8 F 73 21 222/89 96 03/04/24 06:03 03/04/24 06:03 03/04/24 06:03 03/04/24 06:03 03/04/24 06:03 Results - Labs 03/04/24 06:29 03/06/24 07:26 Abnormal Lab Results - Last 24 Hours (Table) 03/05/24 03/05/24 03/06/24 Range/Units 16:39 18:28 07:26 Sodium 136 L 136 L (137-145) mmol/L Chloride 111 H 110 H (98-107) mmol/L Carbon Dioxide 20 L 20 L (22-30) mmol/L BUN 48 H 47 H (9-20) mg/dL Creatinine 4.43 H 4.89 H (0.66-1.25) mg/dL POC Glucose (mg/dL) 68 L (70-110) mg/dL Calcium 8.1 L (8.4-10.2) mg/dL Phosphorus (2.5-4.5) mg/dL 03/06/24 03/06/24 Range/Units 07:26 11:21 Sodium (137-145) mmol/L Chloride (98-107) mmol/L Carbon Dioxide (22-30) mmol/L BUN (9-20) mg/dL Creatinine (0.66-1.25) mg/dL POC Glucose (mg/dL) 141 H (70-110) mg/dL Calcium (8.4-10.2) mg/dL Phosphorus 5.3 H (2.5-4.5) mg/dL Diabetes panel 03/05/24 03/06/24 Range/Units 18:28 07:26 Sodium 136 L 136 L (137-145) mmol/L Potassium 4.1 4.2 (3.5-5.1) mmol/L Chloride 111 H 110 H (98-107) mmol/L Carbon Dioxide 20 L 20 L (22-30) mmol/L BUN 48 H 47 H (9-20) mg/dL Creatinine 4.43 H 4.89 H (0.66-1.25) mg/dL Glucose 84 81 (74-99) mg/dL Calcium 8.1 L 8.4 (8.4-10.2) mg/dL Calcium panel 03/05/24 03/06/24 03/06/24 Range/Units 18:28 07:26 07:26 Calcium 8.1 L 8.4 (8.4-10.2) mg/dL Phosphorus 5.3 H (2.5-4.5) mg/dL Pituitary panel 03/05/24 03/06/24 Range/Units 18:28 07:26 Sodium 136 L 136 L (137-145) mmol/L Potassium 4.1 4.2 (3.5-5.1) mmol/L Chloride 111 H 110 H (98-107) mmol/L Carbon Dioxide 20 L 20 L (22-30) mmol/L BUN 48 H 47 H (9-20) mg/dL Creatinine 4.43 H 4.89 H (0.66-1.25) mg/dL Glucose 84 81 (74-99) mg/dL Calcium 8.1 L 8.4 (8.4-10.2) mg/dL Adrenal panel 03/05/24 03/06/24 Range/Units 18:28 07:26 Sodium 136 L 136 L (137-145) mmol/L Potassium 4.1 4.2 (3.5-5.1) mmol/L Chloride 111 H 110 H (98-107) mmol/L Carbon Dioxide 20 L 20 L (22-30) mmol/L BUN 48 H 47 H (9-20) mg/dL Creatinine 4.43 H 4.89 H (0.66-1.25) mg/dL Glucose 84 81 (74-99) mg/dL Calcium 8.1 L 8.4 (8.4-10.2) mg/dL
[2024-03-06] MEDS: LIDOCAINE 1% INJ 10MG/ML (20 ML MDV) SQ ONE ×2 (15:23→15:34)
[2024-03-06] MEDS: fentaNYL (PF) 50 MCG/ML 2 ML AMP IVP ONE (15:23)
--- NOTE | 2024-03-06 15:47 | P.PCN ---
Operative Findings: Preop diagnosis acute chronic renal failure Postop same Procedure 19 cm dialysis catheter placed right IJ approach Patient was brought to the [employer] [facility] right of the neck and chest were prepped and draped in Prestel manner 1% lidocaine infiltrated neck and chest area. Ultrasound-guided micropuncture introduced right jugular vein micro mi cropuncture guide was passed and 4 Thai dilator advanced up the guidewire then we passed the regular guidewire which was parked in the inferior vena cava. A tunnel was created created through the tunnel for about 19 cm dialysis catheter dilator was advanced up the guidewire and under fluoroscopy control sheath was placed through the sheath we placed a dialysis catheter and sheath was removed tip of the catheter superior vena cava after injection flushed with heparin saline hep-locked secured with 3-0 nylon dressing applied patient tolerated procedure well
[2024-03-06 16:11] LABS: Glucose,Whole Blood 177 mg/dL (70-110)
--- NOTE | 2024-03-06 16:12 | P.PN ---
Progress Note - Text Progress Note Date: 03/06/24 Chief Complaint: Short of breath This is a 78-year-old, Cymro-speaking patient of Dr. Santana. Chronic stable medical conditions include hyperlipidemia, diabetes, obstructive sleep apnea, osteoarthritis, kidney stones, cognitive impairment-dementia. 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 Had a loop recorder seizures. Visit his and daughter. Not a good historian Patient follows with tack driller Dr. Stevens. Patient was sent down to [place], where he underwent Endo fistula placement by -around February 16.. Developed mid left brachial aneurysm. Patient seen earlier today, accompanied by his and daughter Alannah Niño. For 2 days patient been having increasing shortness of breath. Decreased appetite. Normally has about 2-3 loose stools a day. Does wear depends. Patient himself is not a good historian. Denies any chest pain. Tired. Daughter really helps with being this For this Cymro-speaking gentleman/father. Slight edema. No fever no chills March 05: Laying in bed. is present. Patient did eat some. Blood pressure is better. Some improvement in shortness of breath. Currently no dialysis per nephrology. March 06: Laying in bed. Family at the bedside. Nephrology has decided to proceed with dialysis. Dr. Obrien this afternoon placed dialysis catheter. Appetite decreased. Blood pressure controlled. Patient confirmed-full code Active Medications Acetaminophen (Acetaminophen Tab 325 Mg Tab) 650 mg PO Q6HR PRN PRN Reason: Mild Pain or Fever > 100.5 Atorvastatin Calcium (Atorvastatin 20 Mg Tab) 20 mg PO [facility] Last Admin: 03/05/24 20:18 Dose: 20 mg Calcium Carbonate/Glycine (Calcium Carbonate 500 Mg Chewable) 1,000 mg PO Q4HR PRN PRN Reason: Dyspepsia Carvedilol (Carvedilol 12.5 Mg Tab) 12.5 mg PO BID-W[facility] Last Admin: 03/06/24 06:24 Dose: 12.5 mg Clopidogrel Bisulfate (Clopidogrel 75 Mg Tab) 75 mg PO [facility]ILY [facility] Last Admin: 03/06/24 10:42 Dose: 75 mg Duloxetine HCl (Duloxetine Hcl 30 Mg Capsule.) 30 mg PO [facility] Last Admin: 03/05/24 20:18 Dose: 30 mg Ergocalciferol (Ergocalciferol 1,250 Mcg (50,000 Iu) Capsule) 1,250 mcg PO MO [facility] Hydralazine HCl (Hydralazine Hcl 20 Mg/Ml 1 Ml Vial) 10 mg IVP Q4HR PRN PRN Reason: Blood Pressure - High Last Admin: 03/05/24 00:02 Dose: 10 mg Insulin Aspart (Insulin Aspart (Novolog) 100 Unit/Ml Vial) 12 unit SQ W/[facility]PPER [facility] Last Admin: 03/05/24 17:24 Dose: Not Given Insulin Aspart (Insulin Aspart (Novolog) 100 Unit/Ml Vial) 10 unit SQ AC- BID@0800,1200 [facility] Last Admin: 03/06/24 11:37 Dose: Not Given Insulin Detemir (Insulin Detemir (Levemir) 100 Unit/Ml Syr) 30 unit SQ DAILY@0700 [facility] Last Admin: 03/06/24 08:15 Dose: Not Given Isosorbide Mononitrate (Isosorbide Mononitrate Er 60 Mg Tab.Er.24h) 120 mg PO DAILY [facility] Last Admin: 03/06/24 10:41 Dose: 120 mg Lactulose (Lactulose 20 Gm/30 Ml Cup) 20 gm PO DAILY PRN PRN Reason: Constipation Levetiracetam (Levetiracetam 500 Mg Tab) 500 mg PO BID [facility] Last Admin: 03/06/24 10:42 Dose: 500 mg Lorazepam (Lorazepam 0.5 Mg Tab) 0.5 mg PO Q6HR PRN PRN Reason: Anxiety Naloxone HCl (Naloxone 0.4 Mg/Ml 1 Ml Vial) 0.2 mg IV Q2M PRN PRN Reason: Opioid Reversal Nifedipine (Nifedipine Xl 60 Mg Tab.Er.24) 60 mg PO BID [facility] Last Admin: 03/06/24 10:42 Dose: 60 mg Ondansetron HCl (Ondansetron 4 Mg/2 Ml Vial) 4 mg IVP Q8HR PRN PRN Reason: Nausea And Vomiting Last Admin: 03/06/24 10:42 Dose: 4 mg Sodium Bicarbonate (Sodium Bicarbonate Tab 650 Mg Tab) 650 mg PO BID [facility] Last Admin: 03/06/24 10:42 Dose: 650 mg Past medical history to include: Diabetes, hyperlipidemia, hypertension, obstructive sleep apnea, osteoarthritis, kidney stones, cognitive impairment, stroke hypertension with right-sided weakness, depression, seizure Social history: No history of smoking or alcohol. Lives with his and daughter. Does use a walker. Daughter is the POA Physical examination: VITAL SIGNS: 97.6, 65, 18, 122 x 64, 93% on 2 L GENERAL: Resting in bed, tired EYES: Pupils equal. Conjunctiva normal. HEENT: External appearance of nose and ears normal, oral cavity grossly normal. NECK: JVD not raised; masses not palpable. HEART: First and second heart sounds are normal; minimal edema. EXTREMITY: Some swelling in bruising along the inner side on the left arm especially upper arm. Slight tenderness. LUNGS: Respiratory rate normal; breath sounds. ABDOMEN: Soft, no tenderness no guarding rigidity, liver spleen not palpable, no masses palpable. PSYCH: answering simple questions NEUROLOGICAL: [Cranial nerves grossly intact; no facial asymmetry, power 4/5 on the right side INVESTIGATIONS, reviewed in the clinical context: March 05: Sodium 136 potassium 4.1 BUN 48 creatinine 4.43 March 04, 2024: White count 7.1 hemoglobin 10.7 platelets 219 sodium 135 potassium 4.4 BUN 45 creatinine 3.94 bicarb 17 Troponin I less than 0.0130.015 EKG tracing personally reviewed by me-normal sinus rhythm. Some nonspecific T wave changes. Chest x-ray film personally reviewed by me-a bit underpenetrated. Cardiomegaly. Pulm edema Previous labs 2D echocardiogram: [November 2023] EF 65 to 70%. Creatinine 2.46 on January 2023 Assessment and plan: -Acute pulmonary edema a combination of possible CHF and worsening renal function Followed by nephrology and cardiology. Received IV Lasix. 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 Neck 1.4 mm, following Endo vascular fistula creation by in the left arm. This was followed up by patient's own vascular surgeon -Essential hypertension: With chronic kidney disease Imdur 190 mg daily, i Procardia 60 mg mg a day Coreg 12.5 twice daily -Worsening uremic symptoms. Nephrology decided to proceed with renal replacement therapy today. 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 On Levemir, NovoLog Follow Accu-Cheks closely. 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 Stevens -Chronic gait dysfunction uses a walker at home -Full code [Advance care planning discussed on March 04, 2024] Patient's daughter Penny who is the POA, was present so was the and the patient. Daughter was helping interpret the questions. Patient's overall condition was discussed at length. Patient has previously expressed himself to be DNR. is more inclined to be full code. Lengthy discussion was held. They will further discuss the same and get back and let us know if things are to be different. At present time patient remains to be full code.-Time spent about 30 minutes Past Medical History Past Medical History: CVA/TIA, Diabetes Mellitus, Hyperlipidemia, Hypertension, Liver Disease, Renal Disease, Sleep Apnea/CPAP/BIPAP Additional Past Medical History / Comment(s): ARTHRITIS, kidney stones, possible dementia, kidney failure, neuropathy alia legs, carpal tunnel. CVA-oct 20 balance issues,speech impairment,vision impairment, receives injections to eyes r/t bleeding ,COVID 07/28/2022 History of Any Multi-Drug Resistant Organisms: None Reported Past Surgical History: Back Surgery Additional Past Surgical History / Comment(s): MASS REMOVED FROM BACK OF HEAD, eye surgery, Past Anesthesia/Blood Transfusion Reactions: No Reported Reaction Past Psychological History: Depression Smoking Status: Never smoker Past Alcohol Use History: None Reported Past Drug Use History: None Reported
--- NOTE | 2024-03-06 18:13 | IR ---
EXAMINATION TYPE: IR cvc insert central tunneled Intraoperative/procedural fluoroscopic services were provided. CLINICAL INDICATION:Male, 78 years old with history of Dialysis, 1.3m/3.0701DAP, 14.5F x 19cm Dialysi s cath rt IJ; , [facility] Total fluoroscopy time is 1.3 min. DAP: 307 [id number] Please see the operative/procedural note for further details.
--- NOTE | 2024-03-06 18:20 | XR ---
EXAMINATION TYPE: XR chest 1V portable DATE OF EXAM: 03/06/2024 4:12 PM CLINICAL INDICATION:Male, 78 years old with history of HEMODIALYSIS CATHETER PLACEMENT; [facility] COMPARISON: Chest radiographs from 03/04/2024 TECHNIQUE: XR chest 1V portable Frontal view of the chest. FINDINGS: Lungs/Pleura: There is no evidence of pleural effusion, focal consolidation, or pneumothorax. Pulmonary vascularity: Unremarkable. Heart/mediastinum: Cardiomediastinal silhouette is unremarkable. Atherosclerotic calcifications are seen in the aorta. A loop recorder projects over the left thorax over the heart. Musculoskeletal: No acute osseous pathology. Other findings: None Lines/Tubes: Right internal jugular central venous catheter with distal tip at the cavoatrial junction. IMPRESSION: Right Central venous catheter with tip in the superior vena cava/superior cavoatrial junction. Moderate pulmonary vascular congestion. Correlate with BNP for congestive heart failure.
[2024-03-06 20:14] LABS: Glucose,Whole Blood 153 mg/dL (70-110)
[2024-03-07 06:56] LABS: Glucose,Whole Blood 203 mg/dL (70-110)
[2024-03-07 07:36] LABS: African American GFR (CKD) 14 (>60 ml/min/1.73 sqM); Anion Gap 5 mmol/L; Blood Urea Nitrogen 39 mg/dL (9-20); Calcium 7.9 mg/dL (8.4-10.2); Carbon Dioxide 25 mmol/L (22-30); Chloride 106 mmol/L (98-107); Glucose 202 mg/dL (74-99); Magnesium 1.9 mg/dL (1.6-2.3); Non-African American GFR(CKD) 12 (>60 ml/min/1.73 sqM); Potassium 4.1 mmol/L (3.5-5.1); Sodium 136 mmol/L (137-145)
[2024-03-07 09:00] LABS: Hepatitis B Surface Antigen Nonreactive (Nonreactive)
[2024-03-07] MEDS: ERGOCALCIFEROL 1,250 MCG (50,000 IU) CAPSULE PO SCH (10:22)
[2024-03-07 10:25] LABS: Hepatitis B Surface AB- Quant 3.5 mIU/mL
--- NOTE | 2024-03-07 11:09 | P.PN ---
Subjective Progress Note Date: 03/07/24 Principal diagnosis: Chronic kidney disease Patient is seen and examined today as a follow-up. He is sitting up in the chair. Apparently yesterday after we had rounded Dr. Angeles had recommended patient get hemodialysis and patient would need permacath placed with recommended dialysis for yesterday or today depending on availability to place permacath. We were not notified of need for hemodialysis or permacath placement. Consultation to Dr. Obrien was placed by nephrology and right IJ tunneled catheter was placed. Patient currently denies any acute changes. states that he did have hemodialysis yesterday evening from tunneled cath. Objective - Vital Signs Vital signs: Vital Signs Temp 97.1 F L 03/07/24 09:05 Pulse 61 03/07/24 09:05 Resp 16 03/07/24 09:05 BP 131/62 03/07/24 09:05 Pulse Ox 95 03/07/24 09:05 FiO2 Intake & Output 03/06/24 03/07/24 03/07/24 18:59 06:59 18:59 Intake Total 230 1060 608 Output Total 2200 200 Balance 230 -1140 408 Weight 103.5 kg Intake: IV 50 20 10 Invasive Line 3 20 10 Oral 180 540 598 Hemodialysis 500 Output: Urine 200 200 Hemodialysis 2000 Other: Voiding Method Toilet Urinal - Exam General appearance: The patient is alert, oriented, appears in no acute distress. HET: Head is normocephalic and atraumatic. Neck: Supple. Right tunneled cath in place with dressing. Heart: Regular. Lungs: Equal expansion, normal respiratory effort. Abdomen: Soft, nondistended. Extremities: Normal skin color and turgor. Left upper extremity swelling, audible bruit over left fistula. Palpable radial pulse. Neurological: Alert and oriented. - Labs CBC & Chem 7: 03/04/24 06:29 03/07/24 06:48 Labs: Abnormal Lab Results - Last 24 Hours (Table) 03/06/24 03/06/24 03/06/24 Range/Units 07:26 11:21 16:09 Sodium (137-145) mmol/L BUN (9-20) mg/dL Creatinine (0.66-1.25) mg/dL Glucose (74-99) mg/dL POC Glucose (mg/dL) 141 H 177 H (70-110) mg/dL Calcium (8.4-10.2) mg/dL Phosphorus 5.3 H (2.5-4.5) mg/dL 03/06/24 03/07/24 03/07/24 Range/Units 20:00 06:48 06:55 Sodium 136 L (137-145) mmol/L BUN 39 H (9-20) mg/dL Creatinine 4.35 H (0.66-1.25) mg/dL Glucose 202 H (74-99) mg/dL POC Glucose (mg/dL) 153 H 203 H (70-110) mg/dL Calcium 7.9 L (8.4-10.2) mg/dL Phosphorus (2.5-4.5) mg/dL Assessment and Plan Assessment: 1. Chronic kidney disease near end-stage renal disease requiring hemodialysis 2. Hypertension 3. Heart failure with preserved ejection fraction Plan: Patient was seen yesterday by Dr. Obrien and underwent tunneled dialysis catheter placement. Continue with hemodialysis recommendations from nephrology. Patient can follow-up with Dr. Johns as previously scheduled. If there is any concerns with the tunnel catheter please contact Dr. Obrien. Thank you for this consultation, we will sign off at this time. The impression and plan of care has been dictated as directed. Dr. Hu I performed a history and examination of this patient, discussed the same with the dictator. I agree with the dictator's note ,documented as a scribe. Any additional findings or plans will be noted.
[2024-03-07 11:14] LABS: Glucose,Whole Blood 226 mg/dL (70-110)
--- NOTE | 2024-03-07 11:26 | P.PN ---
Subjective HISTORY OF PRESENT ILLNESS: The patient is a 78-year-old gentleman with coronary artery disease as well as heart failure with a preserved ejection fraction and end-stage renal disease and hypertensive heart disease as well as diabetes and hypertension and dyslipidemia and CVA was admitted to the hospital with hypertension emergency complicated by heart failure. March 05, 2024 The patient was seen and evaluated this morning. He is feeling somewhat better. No pain in the chest. The shortness of breath is better. The pressure remains elevated. I am going to increase the dose of isosorbide mononitrate from 60 mg p.o. daily to 120 mg p.o. daily. Beside that the examination is remarkable for regular rhythm with a distant heart sounds and diminished breathing sounds bilaterally and no edema was noted today. March 06, 2024 The patient was seen and evaluated this morning. He is feeling better. No pain in the chest and the shortness of breath has improved. The pressure has been under excellent control on the current medical regimen. The physical examination is remarkable for stable vital signs with regular rate and rhythm and systolic murmur at the right upper sternal border and diminished breathing sounds bilaterally and mild bilateral lower extremities edema March 07, 2024 Patient examined this morning the bedside. Patient currently denies chest pain or pressure. He denies shortness of breath. Vital signs are stable. Most recent blood pressure 131/62. He is on 2 L nasal cannula with oxygen saturations greater than 92%. Recent echocardiogram performed revealed ejection fraction 65 to 70%. PHYSICAL EXAM: VITAL SIGNS: Reviewed. GENERAL: Well-developed in no acute distress. NECK: Supple. No JVD or thyromegaly LUNGS: Respirations even and unlabored. Lungs essentially clear to auscultation bilaterally. HEART: Regular rate and rhythm. S1 and S2 heard. EXTREMITIES: Normal range of motion. No clubbing or cyanosis. Peripheral pulses intact. No lower extremity edema ASSESSMENT: Hypertensive emergency, improved Acute on chronic heart failure with preserved EF, improved Chronic kidney disease, initiated on hemodialysis Coronary artery disease Hypertension Hyperlipidemia History of CVA Diabetes PLAN: Continue current cardiac medications Continue to monitor blood pressure Hemodialysis per nephrology Further recommendations pending patient course Nurse practitioner note has been reviewed by physician. Signing provider agrees with the documented findings, assessment, and plan of care documented by SHIRT CREASER as a scribe. Objective - Vital Signs Vital signs: Vital Signs Temp 97.1 F L 03/07/24 09:05 Pulse 61 03/07/24 09:10 Resp 16 03/07/24 09:10 BP 131/62 03/07/24 09:05 Pulse Ox 95 03/07/24 09:05 FiO2 Intake & Output 03/06/24 03/07/24 03/07/24 18:59 06:59 18:59 Intake Total 230 1060 608 Output Total 2200 200 Balance 230 -1140 408 Weight 103.5 kg Intake: IV 50 20 10 Invasive Line 3 20 10 Oral 180 540 598 Hemodialysis 500 Output: Urine 200 200 Hemodialysis 2000 Other: Voiding Method Toilet Toilet Urinal Urinal - Labs CBC & Chem 7: 03/04/24 06:29 03/07/24 06:48 Labs: Abnormal Lab Results - Last 24 Hours (Table) 03/06/24 03/06/24 03/06/24 Range/Units 07:26 11:21 16:09 Sodium (137-145) mmol/L BUN (9-20) mg/dL Creatinine (0.66-1.25) mg/dL Glucose (74-99) mg/dL POC Glucose (mg/dL) 141 H 177 H (70-110) mg/dL Calcium (8.4-10.2) mg/dL Phosphorus 5.3 H (2.5-4.5) mg/dL 03/06/24 03/07/24 03/07/24 Range/Units 20:00 06:48 06:55 Sodium 136 L (137-145) mmol/L BUN 39 H (9-20) mg/dL Creatinine 4.35 H (0.66-1.25) mg/dL Glucose 202 H (74-99) mg/dL POC Glucose (mg/dL) 153 H 203 H (70-110) mg/dL Calcium 7.9 L (8.4-10.2) mg/dL Phosphorus (2.5-4.5) mg/dL 03/07/24 Range/Units 11:12 Sodium (137-145) mmol/L BUN (9-20) mg/dL Creatinine (0.66-1.25) mg/dL Glucose (74-99) mg/dL POC Glucose (mg/dL) 226 H (70-110) mg/dL Calcium (8.4-10.2) mg/dL Phosphorus (2.5-4.5) mg/dL
--- NOTE | 2024-03-07 14:06 | P.PN ---
Subjective patient is seen for follow-up for end-stage renal disease. Patient has been started on hemodialysis this admission on 03/05/2024. scheduled for second treatment today. Patient has poor vision. Oral intake remains poor. Shortness of breath has improved. Objective - Vital Signs Vital signs: Vital Signs Temp 98.1 F 03/07/24 12:00 Pulse 61 03/07/24 12:00 Resp 16 03/07/24 12:00 BP 129/53 03/07/24 12:00 Pulse Ox 96 03/07/24 12:00 FiO2 Intake & Output 03/06/24 03/07/24 03/07/24 18:59 06:59 18:59 Intake Total 230 1060 966 Output Total 2200 200 Balance 230 -1140 766 Weight 103.5 kg Intake: IV 50 20 10 Invasive Line 3 20 10 Oral 180 540 956 Hemodialysis 500 Output: Urine 200 200 Hemodialysis 2000 Other: Voiding Method Toilet Toilet Urinal Urinal - Exam patient is awake, comfortable, no acute distress. Examination of the heart S1 and S2 Examination of the lungs decreased breath sounds at the bases Abdomen is soft nontender Examination of lower extremities shows edema 2+ bilaterally AIRSET MOLDER exam shows patient is able to move all 4 extremities. - Labs CBC & Chem 7: 03/04/24 06:29 03/07/24 06:48 Labs: Abnormal Lab Results - Last 24 Hours (Table) 03/06/24 03/06/24 03/07/24 Range/Units 16:09 20:00 06:48 Sodium 136 L (137-145) mmol/L BUN 39 H (9-20) mg/dL Creatinine 4.35 H (0.66-1.25) mg/dL Glucose 202 H (74-99) mg/dL POC Glucose (mg/dL) 177 H 153 H (70-110) mg/dL Calcium 7.9 L (8.4-10.2) mg/dL 03/07/24 03/07/24 Range/Units 06:55 11:12 Sodium (137-145) mmol/L BUN (9-20) mg/dL Creatinine (0.66-1.25) mg/dL Glucose (74-99) mg/dL POC Glucose (mg/dL) 203 H 226 H (70-110) mg/dL Calcium (8.4-10.2) mg/dL Assessment and Plan Assessment: 1. Chronic kidney disease stage V secondary to diabetic kidney disease, now end-stage renal disease. Patient underwent AV fistula surgery February 16, 2024 and is being followed by vascular surgery. Creatinine 4.89 today. 2. Volume overload. 3. Diabetes mellitus. 4. Hypertensive emergency. Blood pressure now better controlled. 5. Metabolic acidosis secondary to chronic kidney disease maintained on oral bicarb. Stable. 6. Acute on chronic diastolic CHF. Plan: hemodialysis today and in a.m. Encourage increased oral intake. DC sodium bicarb.
[2024-03-07] MEDS: ACETAMINOPHEN TAB 325 MG TAB PO PRN (14:57)
[2024-03-07 16:48] LABS: Glucose,Whole Blood 72 mg/dL (70-110)
--- NOTE | 2024-03-07 17:20 | P.PN ---
Progress Note - Text Progress Note Date: 03/07/24 Chief Complaint: Short of breath This is a 78-year-old, [place]ese-speaking patient of Dr. Santana. Chronic stable medical conditions include hyperlipidemia, diabetes, obstructive sleep apnea, osteoarthritis, kidney stones, cognitive impairment-dementia. 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 Had a loop recorder seizures. Visit his and daughter. Not a good historian Patient follows with massage coordinator Dr. Stevens. Patient was sent down to [place], where he underwent Endo fistula placement by -around February 16.. Developed mid left brachial aneurysm. Patient seen earlier today, accompanied by his and daughter Alannah Niño. For 2 days patient been having increasing shortness of breath. Decreased appetite. Normally has about 2-3 loose stools a day. Does wear depends. Patient himself is not a good historian. Denies any chest pain. Tired. Daughter really helps with being this For this [place]ese-speaking gentleman/father. Slight edema. No fever no chills March 05: Laying in bed. is present. Patient did eat some. Blood pressure is better. Some improvement in shortness of breath. Currently no dialysis per nephrology. March 06: Laying in bed. Family at the bedside. Nephrology has decided to proceed with dialysis. Dr. Obrien this afternoon placed dialysis catheter. Appetite decreased. Blood pressure controlled. Patient confirmed-full code March 07: Patient had his first dialysis today. 1.5 L removed. Up in a chair. Eating better. at the bedside. Active Medications Acetaminophen (Acetaminophen Tab 325 Mg Tab) 650 mg PO Q6HR PRN PRN Reason: Mild Pain or Fever > 100.5 Last Admin: 03/07/24 14:57 Dose: 650 mg Atorvastatin Calcium (Atorvastatin 20 Mg Tab) 20 mg PO HS [facility] Last Admin: 03/06/24 22:29 Dose: 20 mg Calcium Carbonate/Glycine (Calcium Carbonate 500 Mg Chewable) 1,000 mg PO Q4HR PRN PRN Reason: Dyspepsia Carvedilol (Carvedilol 12.5 Mg Tab) 12.5 mg PO BID-W/MEALS [facility] Last Admin: 03/07/24 07:06 Dose: 12.5 mg Clopidogrel Bisulfate (Clopidogrel 75 Mg Tab) 75 mg PO DAILY [facility] Last Admin: 03/07/24 10:23 Dose: 75 mg Duloxetine HCl (Duloxetine Hcl 30 Mg Capsule.Dr) 30 mg PO HS [facility] Last Admin: 03/06/24 22:29 Dose: 30 mg Ergocalciferol (Ergocalciferol 1,250 Mcg (50,000 Iu) Capsule) 1,250 mcg PO MO [facility] Last Admin: 03/07/24 10:22 Dose: 1,250 mcg Hydralazine HCl (Hydralazine Hcl 20 Mg/Ml 1 Ml Vial) 10 mg IVP Q4HR PRN PRN Reason: Blood Pressure - High Last Admin: 03/05/24 00:02 Dose: 10 mg Insulin Aspart (Insulin Aspart (Novolog) 100 Unit/Ml Vial) 12 unit SQ W/SUPPER [facility] Last Admin: 03/06/24 19:34 Dose: Not Given Insulin Aspart (Insulin Aspart (Novolog) 100 Unit/Ml Vial) 10 unit SQ AC- BID@0800,1200 [facility] Last Admin: 03/07/24 12:04 Dose: 10 unit Insulin Detemir (Insulin Detemir (Levemir) 100 Unit/Ml Syr) 30 unit SQ DAILY@0700 [facility] Last Admin: 03/07/24 07:05 Dose: 30 unit Isosorbide Mononitrate (Isosorbide Mononitrate Er 60 Mg Tab.Er.24h) 120 mg PO DAILY [facility] Last Admin: 03/07/24 10:23 Dose: 120 mg Lactulose (Lactulose 20 Gm/30 Ml Cup) 20 gm PO DAILY PRN PRN Reason: Constipation Levetiracetam (Levetiracetam 500 Mg Tab) 500 mg PO BID [facility] Last Admin: 03/07/24 10:22 Dose: 500 mg Lorazepam (Lorazepam 0.5 Mg Tab) 0.5 mg PO Q6HR PRN PRN Reason: Anxiety Naloxone HCl (Naloxone 0.4 Mg/Ml 1 Ml Vial) 0.2 mg IV Q2M PRN PRN Reason: Opioid Reversal Nifedipine (Nifedipine Xl 60 Mg Tab.Er.24) 60 mg PO BID [facility] Last Admin: 03/07/24 12:04 Dose: 60 mg Ondansetron HCl (Ondansetron 4 Mg/2 Ml Vial) 4 mg IVP Q8HR PRN PRN Reason: Nausea And Vomiting Last Admin: 03/06/24 10:42 Dose: 4 mg Past medical history to include: Diabetes, hyperlipidemia, hypertension, obstructive sleep apnea, osteoarthritis, kidney stones, cognitive impairment, stroke hypertension with right-sided weakness, depression, seizure Social history: No history of smoking or alcohol. Lives with his and daughter. Does use a walker. Daughter is the POA Physical examination: VITAL SIGNS: 98.4, 58, 16, 1 one 8 x 58, 98% on 1 L GENERAL: Up in chair, eating lunch EYES: Pupils equal. Conjunctiva normal. HEENT: External appearance of nose and ears normal, oral cavity grossly normal. NECK: JVD not raised; masses not palpable. HEART: First and second heart sounds are normal; minimal edema. EXTREMITY: Some swelling in bruising along the inner side on the left arm especially upper arm. Slight tenderness. LUNGS: Respiratory rate normal; breath sounds. ABDOMEN: Soft, no tenderness no guarding rigidity, liver spleen not palpable, no masses palpable. PSYCH: answering simple questions NEUROLOGICAL: [Cranial nerves grossly intact; no facial asymmetry, power 4/5 on the right side INVESTIGATIONS, reviewed in the clinical context: March 07: Sodium 136 potassium 4.1 creatinine 4.35 March 05: Sodium 136 potassium 4.1 BUN 48 creatinine 4.43 March 04, 2024: White count 7.1 hemoglobin 10.7 platelets 219 sodium 135 potassium 4.4 BUN 45 creatinine 3.94 bicarb 17 Troponin I less than 0.0130.015 EKG tracing personally reviewed by me-normal sinus rhythm. Some nonspecific T wave changes. Chest x-ray film personally reviewed by me-a bit underpenetrated. Cardiomegaly. Pulm edema Previous labs 2D echocardiogram: [November 2023] EF 65 to 70%. Creatinine 2.46 on January 2023 Assessment and plan: -Acute pulmonary edema a combination of possible CHF and worsening renal functio n Followed by nephrology and cardiology. Received IV Lasix. 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 Neck 1.4 mm, following Endo vascular fistula creation by in the left arm. This was followed up by patient's own vascular surgeon -Essential hypertension: With chronic kidney disease Imdur 190 mg daily, i Procardia 60 mg mg a day Coreg 12.5 twice daily -Worsening uremic symptoms. 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 On Levemir, NovoLog Follow Accu-Cheks closely. 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 Stevens -Chronic gait dysfunction uses a walker at home -Full code [Advance care planning discussed on March 04, 2024] Patient's daughter Penny who is the POA, was present so was the and the patient. Daughter was helping interpret the questions. Patient's overall condition was discussed at length. Patient has previously expressed himself to be DNR. is more inclined to be full code. Lengthy discussion was held. They will further discuss the same and get back and let us know if things are to be different. At present time patient remains to be full code.-Time spent about 30 minutes Past Medical History Past Medical History: CVA/TIA, Diabetes Mellitus, Hyperlipidemia, Hypertension, Liver Disease, Renal Disease, Sleep Apnea/CPAP/BIPAP Additional Past Medical History / Comment(s): ARTHRITIS, kidney stones, possible dementia, kidney failure, neuropathy alia legs, carpal tunnel. CVA-jun 20 balance issues,speech impairment,vision impairment, receives injections to eyes r/t bleeding ,COVID 07/28/2022 History of Any Multi-Drug Resistant Organisms: None Reported Past Surgical History: Back Surgery Additional Past Surgical History / Comment(s): MASS REMOVED FROM BACK OF HEAD, eye surgery, Past Anesthesia/Blood Transfusion Reactions: No Reported Reaction Past Psychological History: Depression Smoking Status: Never smoker Past Alcohol Use History: None Reported Past Drug Use History: None Reported
[2024-03-07 18:52] LABS: Glucose,Whole Blood 48 mg/dL (70-110)
[2024-03-07] MEDS: DEXTROSE 50% SYRINGE 50 ML IVP ONE (18:54)
[2024-03-07 19:08] LABS: Glucose,Whole Blood 164 mg/dL (70-110)
[2024-03-07 20:26] LABS: Glucose,Whole Blood 102 mg/dL (70-110)
[2024-03-08 02:48] LABS: Glucose,Whole Blood 79 mg/dL (70-110)
[2024-03-08 06:05] LABS: Glucose,Whole Blood 75 mg/dL (70-110)
[2024-03-08] MEDS: APIXABAN 2.5 MG TABLET PO SCH (09:18)
[2024-03-08] MEDS: ASPIRIN 81 MG PO SCH (09:24)
[2024-03-08 11:17] LABS: Glucose,Whole Blood 191 mg/dL (70-110)
--- NOTE | 2024-03-08 12:03 | P.PN ---
Subjective HISTORY OF PRESENT ILLNESS: The patient is a 78-year-old gentleman with coronary artery disease as well as heart failure with a preserved ejection fraction and end-stage renal disease and hypertensive heart disease as well as diabetes and hypertension and dyslipidemia and CVA was admitted to the hospital with hypertension emergency complicated by heart failure. March 05, 2024 The patient was seen and evaluated this morning. He is feeling somewhat better. No pain in the chest. The shortness of breath is better. The pressure remains elevated. I am going to increase the dose of isosorbide mononitrate from 60 mg p.o. daily to 120 mg p.o. daily. Beside that the examination is remarkable for regular rhythm with a distant heart sounds and diminished breathing sounds bilaterally and no edema was noted today. March 06, 2024 The patient was seen and evaluated this morning. He is feeling better. No pain in the chest and the shortness of breath has improved. The pressure has been under excellent control on the current medical regimen. The physical examination is remarkable for stable vital signs with regular rate and rhythm and systolic murmur at the right upper sternal border and diminished breathing sounds bilaterally and mild bilateral lower extremities edema March 07, 2024 Patient examined this morning the bedside. Patient currently denies chest pain or pressure. He denies shortness of breath. Vital signs are stable. Most recent blood pressure 131/62. He is on 2 L nasal cannula with oxygen saturations greater than 92%. Recent echocardiogram performed revealed ejection fraction 65 to 70%. March 08, 2024 Patient examined this morning at bedside. Patient currently denies chest pain or pressure. He denies shortness of breath. Patient is due to receive hemodialysis today. Patient went into atrial fibrillation overnight with controlled ventricular rates. He remains in atrial fibrillation this morning with a heart rate in the 80s. He denies a history of atrial fibrillation. PHYSICAL EXAM: VITAL SIGNS: Reviewed. GENERAL: Well-developed in no acute distress. NECK: Supple. No JVD or thyromegaly LUNGS: Respirations even and unlabored. Lungs essentially clear to auscultation bilaterally. HEART: Irregular rate and rhythm. S1 and S2 heard. EXTREMITIES: Normal range of motion. No clubbing or cyanosis. Peripheral pulses intact. No lower extremity edema ASSESSMENT: Hypertensive emergency, improved Acute on chronic heart failure with preserved EF, improved Chronic kidney disease, initiated on hemodialysis New onset atrial fibrillation with controlled ventricular rate Coronary artery disease Hypertension Hyperlipidemia History of CVA Diabetes PLAN: Continue current cardiac medications Discontinue Plavix Begin Eliquis 2.5 mg twice a day Add aspirin 81 mg daily Continue telemetry monitoring Continue to monitor blood pressure Hemodialysis per nephrology Further recommendations pending patient course Nurse practitioner note has been reviewed by physician. Signing provider agrees with the documented findings, assessment, and plan of care documented by FURNITURE PAINTER as a scribe. Objective - Vital Signs Vital signs: Vital Signs Temp 98.3 F 03/08/24 07:55 Pulse 88 03/08/24 11:43 Resp 18 03/08/24 11:43 BP 111/60 03/08/24 11:43 Pulse Ox 97 03/08/24 11:43 FiO2 Intake & Output 03/07/24 03/08/24 03/08/24 18:59 06:59 18:59 Intake Total 1376 30 370 Output Total 2400 100 Balance -1024 -70 370 Weight 103.5 kg 90 kg Intake: IV 20 30 10 0.9 10 Invasive Line 3 20 20 10 Oral 956 360 Hemodialysis 400 Output: Urine 200 100 Hemodialysis 2200 Other: Voiding Method Toilet Indwelling Catheter Urinal # Bowel Movements 0 - Labs CBC & Chem 7: 03/04/24 06:29 03/07/24 06:48 Labs: Abnormal Lab Results - Last 24 Hours (Table) 03/07/24 03/07/24 03/08/24 Range/Units 18:50 19:05 11:13 POC Glucose (mg/dL) 48 L* 164 H 191 H (70-110) mg/dL
--- NOTE | 2024-03-08 12:26 | P.PN ---
Subjective patient is seen for follow-up for end-stage renal disease. Patient has been started on hemodialysis this admission on 03/05/2024. scheduled for third treatment today. Patient has poor vision. Oral intake remains poor. Shortness of breath has improved. participated in physical therapy. Objective - Vital Signs Vital signs: Vital Signs Temp 98.3 F 03/08/24 07:55 Pulse 88 03/08/24 11:43 Resp 18 03/08/24 11:43 BP 111/60 03/08/24 11:43 Pulse Ox 97 03/08/24 11:43 FiO2 Intake & Output 03/07/24 03/08/24 03/08/24 18:59 06:59 18:59 Intake Total 1376 30 370 Output Total 2400 100 Balance -1024 -70 370 Weight 103.5 kg 90 kg Intake: IV 20 30 10 0.9 10 Invasive Line 3 20 20 10 Oral 956 360 Hemodialysis 400 Output: Urine 200 100 Hemodialysis 2200 Other: Voiding Method Toilet Indwelling Catheter Indwelling Catheter Urinal # Bowel Movements 0 - Exam patient is awake, comfortable, no acute distress. Examination of the heart S1 and S2 Examination of the lungs decreased breath sounds at the bases Abdomen is soft nontender Examination of lower extremities shows edema 1+ bilaterally GRINDER LAP exam shows patient is able to move all 4 extremities. - Labs CBC & Chem 7: 03/04/24 06:29 03/07/24 06:48 Labs: Abnormal Lab Results - Last 24 Hours (Table) 03/07/24 03/07/24 03/08/24 Range/Units 18:50 19:05 11:13 POC Glucose (mg/dL) 48 L* 164 H 191 H (70-110) mg/dL Assessment and Plan Assessment: 1. Chronic kidney disease stage V secondary to diabetic kidney disease, now end-stage renal disease. Patient underwent AV fistula surgery February 16, 2024 and is being followed by vascular surgery. . 2. Volume overload. improved. 3. Diabetes mellitus. 4. Hypertensive emergency. Blood pressure now better controlled. 5. Metabolic acidosis secondary to chronic kidney disease maintained on oral bicarb. Stable. 6. Acute on chronic diastolic CHF. Plan: hemodialysis today awaiting outpatient chair time Encourage increased oral intake.
[2024-03-08] MEDS ORDERED: DEXTROSE 50% SYRINGE 50 ML IVP PRN (13:24)
--- NOTE | 2024-03-08 15:36 | P.PN ---
Progress Note - Text Progress Note Date: 03/08/24 Chief Complaint: Short of breath This is a 78-year-old, [place]i-speaking patient of Dr. Santana. Chronic stable medical conditions include hyperlipidemia, diabetes, obstructive sleep apnea, osteoarthritis, kidney stones, cognitive impairment-dementia. 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 Had a loop recorder seizures. Visit his and daughter. Not a good historian Patient follows with website designer Dr. Stevens. Patient was sent down to [place], where he underwent Endo fistula placement by -around February 16.. Developed mid left brachial aneurysm. Patient seen earlier today, accompanied by his and daughter Alannah Niño. For 2 days patient been having increasing shortness of breath. Decreased appetite. Normally has about 2-3 loose stools a day. Does wear depends. Patient himself is not a good historian. Denies any chest pain. Tired. Daughter really helps with being this For this [place]i-speaking gentleman/father. Slight edema. No fever no chills March 05: Laying in bed. is present. Patient did eat some. Blood pressure is better. Some improvement in shortness of breath. Currently no dialysis per nephrology. March 06: Laying in bed. Family at the bedside. Nephrology has decided to proceed with dialysis. Dr. Obrien this afternoon placed dialysis catheter. Appetite decreased. Blood pressure controlled. Patient confirmed-full code March 07: Patient had his first dialysis today. 1.5 L removed. Up in a chair. Eating better. at the bedside. March 08: Second hemodialysis today. Breathing a bit better. Did eat some diet. present. Active Medications Acetaminophen (Acetaminophen Tab 325 Mg Tab) 650 mg PO Q6HR PRN PRN Reason: Mild Pain or Fever > 100.5 Last Admin: 03/07/24 14:57 Dose: 650 mg Apixaban (Apixaban 2.5 Mg Tablet) 2.5 mg PO BID [facility]; Protocol Last Admin: 03/08/24 09:18 Dose: 2.5 mg Aspirin (Aspirin 81 Mg) 81 mg PO DAILY [facility] Last Admin: 03/08/24 09:24 Dose: 81 mg Atorvastatin Calcium (Atorvastatin 20 Mg Tab) 20 mg PO HS [facility] Last Admin: 03/07/24 20:57 Dose: 20 mg Calcium Carbonate/Glycine (Calcium Carbonate 500 Mg Chewable) 1,000 mg PO Q4HR PRN PRN Reason: Dyspepsia Carvedilol (Carvedilol 12.5 Mg Tab) 12.5 mg PO BID-W/MEALS [facility] Last Admin: 03/08/24 06:09 Dose: 12.5 mg Dextrose/Water (Dextrose 50% Syringe 50 Ml) 25 ml IVP PER PROTOCOL PRN; Protocol PRN Reason: Hypoglycemia Dextrose/Water (Dextrose 50% Syringe 50 Ml) 50 ml IVP PER PROTOCOL PRN; Protocol PRN Reason: Hypoglycemia Duloxetine HCl (Duloxetine Hcl 30 Mg Capsule.Dr) 30 mg PO [facility] Last Admin: 03/07/24 20:57 Dose: 30 mg Ergocalciferol (Ergocalciferol 1,250 Mcg (50,000 Iu) Capsule) 1,250 mcg PO MO [facility] Last Admin: 03/07/24 10:22 Dose: 1,250 mcg Hydralazine HCl (Hydralazine Hcl 20 Mg/Ml 1 Ml Vial) 10 mg IVP Q4HR PRN PRN Reason: Blood Pressure - High Last Admin: 03/05/24 00:02 Dose: 10 mg Insulin Aspart (Insulin Aspart (Novolog) 100 Unit/Ml Vial) 0 unit SQ [facility]; Protocol Insulin Detemir (Insulin Detemir (Levemir) 100 Unit/Ml Syr) 15 unit SQ [facility] Isosorbide Mononitrate (Isosorbide Mononitrate Er 60 Mg Tab.Er.24h) 120 mg PO DAILY [facility] Last Admin: 03/08/24 09:17 Dose: 120 mg Lactulose (Lactulose 20 Gm/30 Ml Cup) 20 gm PO DAILY PRN PRN Reason: Constipation Levetiracetam (Levetiracetam 500 Mg Tab) 500 mg PO BID [facility] Last Admin: 03/08/24 09:18 Dose: 500 mg Lorazepam (Lorazepam 0.5 Mg Tab) 0.5 mg PO Q6HR PRN PRN Reason: Anxiety Naloxone HCl (Naloxone 0.4 Mg/Ml 1 Ml Vial) 0.2 mg IV Q2M PRN PRN Reason: Opioid Reversal Nifedipine (Nifedipine Xl 60 Mg Tab.Er.24) 60 mg PO BID [facility] Last Admin: 03/08/24 09:18 Dose: 60 mg Ondansetron HCl (Ondansetron 4 Mg/2 Ml Vial) 4 mg IVP Q8HR PRN PRN Reason: Nausea And Vomiting Last Admin: 03/06/24 10:42 Dose: 4 mg Past medical history to include: Diabetes, hyperlipidemia, hypertension, obstructive sleep apnea, osteoarthritis, kidney stones, cognitive impairment, stroke hypertension with right-sided weakness, depression, seizure Social history: No history of smoking or alcohol. Lives with his and daughter. Does use a walker. Daughter is the POA Physical examination: VITAL SIGNS: 98.3, 88, 18, 101 x 60, 97% on 2 L GENERAL: Resting in bed EYES: Pupils equal. Conjunctiva normal. HEENT: External appearance of nose and ears normal, oral cavity grossly normal. NECK: JVD not raised; masses not palpable. HEART: First and second heart sounds are normal; minimal edema. EXTREMITY: Some swelling in bruising along the inner side on the left arm especially upper arm. Slight tenderness. LUNGS: Respiratory rate normal; breath sounds. ABDOMEN: Soft, no tenderness no guarding rigidity, liver spleen not palpable, no masses palpable. PSYCH: answering simple questions NEUROLOGICAL: [Cranial nerves grossly intact; no facial asymmetry, power 4/5 on the right side INVESTIGATIONS, reviewed in the clinical context: March 07: Sodium 136 potassium 4.1 creatinine 4.35 March 05: Sodium 136 potassium 4.1 BUN 48 creatinine 4.43 March 04, 2024: White count 7.1 hemoglobin 10.7 platelets 219 sodium 135 potassium 4.4 BUN 45 creatinine 3.94 bicarb 17 Troponin I less than 0.0130.015 EKG tracing personally reviewed by me-normal sinus rhythm. Some nonspecific T wave changes. Chest x-ray film personally reviewed by me-a bit underpenetrated. Cardiomegaly. Pulm edema Previous labs 2D echocardiogram: [November 2023] EF 65 to 70%. Creatinine 2.46 on January 2023 Assessment and plan: -Acute pulmonary edema a combination of possible CHF and worsening renal function: Improving Followed by nephrology and cardiology. Received IV Lasix. 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 Neck 1.4 mm, following Endo vascular fistula creation by in the left arm. This was followed up by patient's own vascular surgeon -Essential hypertension: With chronic kidney disease Imdur 190 mg daily, i Procardia 60 mg mg a day Coreg 12.5 twice daily -Worsening uremic symptoms. 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 On Levemir, NovoLog Follow Accu-Cheks closely. 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 Stevens -Chronic gait dysfunction uses a walker at home -Full code [Advance care planning discussed on March 04, 2024] Patient's daughter Penny who is the POA, was present so was the and the patient. Daughter was helping interpret the questions. Patient's overall condition was discussed at length. Patient has previously expressed himself to be DNR. is more inclined to be full code. Lengthy discussion was held. They will further discuss the same and get back and let us know if things are to be different. At present time patient remains to be full code.-Time spent about 30 minutes Past Medical History Past Medical History: CVA/TIA, Diabetes Mellitus, Hyperlipidemia, Hypertension, Liver Disease, Renal Disease, Sleep Apnea/CPAP/BIPAP Additional Past Medical History / Comment(s): ARTHRITIS, kidney stones, possible dementia, kidney failure, neuropathy alia legs, carpal tunnel. CVA-jul 17 balance issues,speech impairment,vision impairment, receives injections to eyes r/t bleeding ,COVID 07/28/2022 History of Any Multi-Drug Resistant Organisms: None Reported Past Surgical History: Back Surgery Additional Past Surgical History / Comment(s): MASS REMOVED FROM BACK OF HEAD, eye surgery, Past Anesthesia/Blood Transfusion Reactions: No Reported Reaction Past Psychological History: Depression Smoking Status: Never smoker Past Alcohol Use History: None Reported Past Drug Use History: None Reported
[2024-03-08 16:40] LABS: Glucose,Whole Blood 210 mg/dL (70-110)
[2024-03-08] MEDS: INSULIN ASPART (NovoLOG) 100 UNIT/ML VIAL SQ SCH (17:04)
[2024-03-08 20:12] LABS: Glucose,Whole Blood 219 mg/dL (70-110)
[2024-03-08] MEDS: INSULIN DETEMIR (LEVEMIR) 100 UNIT/ML SYR SQ SCH (20:27)
[2024-03-09 06:18] LABS: Glucose,Whole Blood 89 mg/dL (70-110)
--- NOTE | 2024-03-09 09:43 | P.PN ---
Subjective HISTORY OF PRESENT ILLNESS: The patient is a 78-year-old gentleman with coronary artery disease as well as heart failure with a preserved ejection fraction and end-stage renal disease and hypertensive heart disease as well as diabetes and hypertension and dyslipidemia and CVA was admitted to the hospital with hypertension emergency complicated by heart failure. March 05, 2024 The patient was seen and evaluated this morning. He is feeling somewhat better. No pain in the chest. The shortness of breath is better. The pressure remains elevated. I am going to increase the dose of isosorbide mononitrate from 60 mg p.o. daily to 120 mg p.o. daily. Beside that the examination is remarkable for regular rhythm with a distant heart sounds and diminished breathing sounds bilaterally and no edema was noted today. March 06, 2024 The patient was seen and evaluated this morning. He is feeling better. No pain in the chest and the shortness of breath has improved. The pressure has been under excellent control on the current medical regimen. The physical examination is remarkable for stable vital signs with regular rate and rhythm and systolic murmur at the right upper sternal border and diminished breathing sounds bilaterally and mild bilateral lower extremities edema March 07, 2024 Patient examined this morning the bedside. Patient currently denies chest pain or pressure. He denies shortness of breath. Vital signs are stable. Most recent blood pressure 131/62. He is on 2 L nasal cannula with oxygen saturations greater than 92%. Recent echocardiogram performed revealed ejection fraction 65 to 70%. March 08, 2024 Patient examined this morning at bedside. Patient currently denies chest pain or pressure. He denies shortness of breath. Patient is due to receive hemodialysis today. Patient went into atrial fibrillation overnight with controlled ventricular rates. He remains in atrial fibrillation this morning with a heart rate in the 80s. He denies a history of atrial fibrillation. 08/2024 Patient examined this morning at bedside. Patient denies chest pain or pressure. He denies shortness of breath. Vital signs are stable. Telemetry reveals sinus mechanism. PHYSICAL EXAM: VITAL SIGNS: Reviewed. GENERAL: Well-developed in no acute distress. NECK: Supple. No JVD or thyromegaly LUNGS: Respirations even and unlabored. Lungs essentially clear to auscultation bilaterally. HEART: Irregular rate and rhythm. S1 and S2 heard. EXTREMITIES: Normal range of motion. No clubbing or cyanosis. Peripheral pulse s intact. No lower extremity edema ASSESSMENT: Hypertensive emergency, improved Acute on chronic heart failure with preserved EF, improved Chronic kidney disease, initiated on hemodialysis New onset atrial fibrillation with controlled ventricular rate Coronary artery disease Hypertension Hyperlipidemia History of CVA Diabetes PLAN: Continue current cardiac medications Continue telemetry monitoring Continue to monitor blood pressure Hemodialysis per nephrology Further inpatient recommendations from a cardiac standpoint We will sign off. Please reconsult if needed. Nurse practitioner note has been reviewed by physician. Signing provider agrees with the documented findings, assessment, and plan of care documented by [employer] DEPARTMENT SUPERVISOR as a scribe. Objective - Vital Signs Vital signs: Vital Signs Temp 98.2 F 03/09/24 08:00 Pulse 70 03/09/24 03:06 Resp 18 03/09/24 08:00 BP 119/49 03/09/24 08:00 Pulse Ox 92 L 03/09/24 08:00 FiO2 Intake & Output 03/08/24 03/09/24 03/09/24 18:59 06:59 18:59 Intake Total 1480 Output Total 2600 50 Balance -1120 -50 Weight 92.5 kg Intake: IV 20 Invasive Line 3 20 Oral 960 Hemodialysis 500 Output: Urine 100 50 Hemodialysis 2500 Other: Voiding Method Indwelling Catheter Indwelling Catheter - Labs CBC & Chem 7: 03/04/24 06:29 03/07/24 06:48 Labs: Abnormal Lab Results - Last 24 Hours (Table) 03/08/24 03/08/24 03/08/24 Range/Units 11:13 16:38 20:09 POC Glucose (mg/dL) 191 H 210 H 219 H (70-110) mg/dL
[2024-03-09 12:10] LABS: Glucose,Whole Blood 124 mg/dL (70-110)
--- NOTE | 2024-03-09 12:38 | P.PN ---
Subjective patient is seen for follow-up for end-stage renal disease. Patient has been started on hemodialysis this admission on 03/05/2024. according to the family patient is more weak and has not been eating. They are concerned about possible UTI. Shortness of breath has improved. UF 2.5 L yesterday. Objective - Vital Signs Vital signs: Vital Signs Temp 98.2 F 03/09/24 08:00 Pulse 70 03/09/24 03:06 Resp 18 03/09/24 08:00 BP 119/49 03/09/24 08:00 Pulse Ox 92 L 03/09/24 08:00 FiO2 Intake & Output 03/08/24 03/09/24 03/09/24 18:59 06:59 18:59 Intake Total 1480 Output Total 2600 50 Balance -1120 -50 Weight 92.5 kg Intake: IV 20 Invasive Line 3 20 Oral 960 Hemodialysis 500 Output: Urine 100 50 Hemodialysis 2500 Other: Voiding Method Indwelling Catheter Indwelling Catheter Indwelling Catheter - Exam patient is awake, comfortable, no acute distress. Examination of the heart S1 and S2 Examination of the lungs decreased breath sounds at the bases Abdomen is soft nontender Examination of lower extremities shows edema 1+ bilaterally POULTRY PATHOLOGIST exam shows patient is able to move all 4 extremities. - Labs CBC & Chem 7: 03/04/24 06:29 03/07/24 06:48 Labs: Abnormal Lab Results - Last 24 Hours (Table) 03/08/24 03/08/24 03/09/24 Range/Units 16:38 20:09 12:08 POC Glucose (mg/dL) 210 H 219 H 124 H (70-110) mg/dL Assessment and Plan Assessment: 1. Chronic kidney disease stage V secondary to diabetic kidney disease, now end-stage renal disease. Patient underwent AV fistula surgery February 16, 2024 and is being followed by vascular surgery. . 2. Volume overload. improved. 3. Diabetes mellitus. 4. Hypertensive emergency. Blood pressure now better controlled. 5. Metabolic acidosis secondary to chronic kidney disease maintained on oral bicarb. Stable. 6. Acute on chronic diastolic CHF. Plan: hemodialysis in a.m. UF only about 1 L awaiting outpatient chair time Encourage increased oral intake. Check UA
[2024-03-09 13:05] LABS: Basophils # (A) 0.1 k/uL (0-0.2); Basophils % (A) 1 %; Eosinophils # (A) 0.1 k/uL (0-0.7); Eosinophils % (A) 1 %; HCT 29.5 % (39.0-53.0); Lymphocytes # (A) 1.5 k/uL (1.0-4.8); Lymphocytes % (A) 20 %; MCH 29.2 pg (25.0-35.0); MCHC 31.1 g/dL (31.0-37.0); Mean Platelet Volume 8.8; Monocytes # (A) 0.6 k/uL (0-1.0); Monocytes % (A) 8 %; Neutrophils # (A) 5.2 k/uL (1.3-7.7); Neutrophils % (A) 68 %; Platelet Count 246 k/uL (150-450); RBC 3.14 m/uL (4.30-5.90); WBC 7.7 k/uL (3.8-10.6)
[2024-03-09 13:09] LABS: HGB 9.2 gm/dL (13.0-17.5)
[2024-03-09 13:42] VITALS: BMI 31.0
--- NOTE | 2024-03-09 16:05 | P.PN ---
Progress Note - Text Progress Note Date: 03/09/24 Chief Complaint: Short of breath This is a 78-year-old, Cameroonian-speaking patient of Dr. Santana. Chronic stable medical conditions include hyperlipidemia, diabetes, obstructive sleep apnea, osteoarthritis, kidney stones, cognitive impairment-dementia. 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 Had a loop recorder seizures. Visit his and daughter. Not a good historian Patient follows with branch manager Dr. Stevens. Patient was sent down to [place], where he underwent Endo fistula placement by -around February 16.. Developed mid left brachial aneurysm. Patient seen earlier today, accompanied by his and daughter Alannah Niño. For 2 days patient been having increasing shortness of breath. Decreased appetite. Normally has about 2-3 loose stools a day. Does wear depends. Patient himself is not a good historian. Denies any chest pain. Tired. Daughter really helps with being this For this Cameroonian-speaking gentleman/father. Slight edema. No fever no chills March 05: Laying in bed. is present. Patient did eat some. Blood pressure is better. Some improvement in shortness of breath. Currently no dialysis per nephrology. March 06: Laying in bed. Family at the bedside. Nephrology has decided to proceed with dialysis. Dr. Obrien this afternoon placed dialysis catheter. Appetite decreased. Blood pressure controlled. Patient confirmed-full code March 07: Patient had his first dialysis today. 1.5 L removed. Up in a chair. Eating better. at the bedside. March 08: Second hemodialysis today. Breathing a bit better. Did eat some diet. present. March 09: Did not sleep too well last night. Sleepy this morning. Oral intake variable. Due for next dialysis tomorrow. Ensure added. At Active Medications Acetaminophen (Acetaminophen Tab 325 Mg Tab) 650 mg PO Q6HR PRN PRN Reason: Mild Pain or Fever > 100.5 Last Admin: 03/07/24 14:57 Dose: 650 mg Apixaban (Apixaban 2.5 Mg Tablet) 2.5 mg PO BID [facility]; Protocol Last Admin: 03/09/24 09:31 Dose: 2.5 mg Aspirin (Aspirin 81 Mg) 81 mg PO DAILY [facility] Last Admin: 03/09/24 09:32 Dose: 81 mg Atorvastatin Calcium (Atorvastatin 20 Mg Tab) 20 mg PO [facility] Last Admin: 03/08/24 20:27 Dose: 20 mg Calcium Carbonate/Glycine (Calcium Carbonate 500 Mg Chewable) 1,000 mg PO Q4HR PRN PRN Reason: Dyspepsia Carvedilol (Carvedilol 12.5 Mg Tab) 12.5 mg PO BID-W/MEALS [facility] Last Admin: 03/09/24 06:29 Dose: 12.5 mg Dextrose/Water (Dextrose 50% Syringe 50 Ml) 25 ml IVP PER PROTOCOL PRN; Protocol PRN Reason: Hypoglycemia Dextrose/Water (Dextrose 50% Syringe 50 Ml) 50 ml IVP PER PROTOCOL PRN; Protocol PRN Reason: Hypoglycemia Duloxetine HCl (Duloxetine Hcl 30 Mg Capsule.Dr) 30 mg PO [facility] Last Admin: 03/08/24 20:27 Dose: 30 mg Ergocalciferol (Ergocalciferol 1,250 Mcg (50,000 Iu) Capsule) 1,250 mcg PO MO [facility] Last Admin: 03/07/24 10:22 Dose: 1,250 mcg Insulin Aspart (Insulin Aspart (Novolog) 100 Unit/Ml Vial) 0 unit SQ [facility]; Protocol Last Admin: 03/09/24 12:28 Dose: Not Given Insulin Detemir (Insulin Detemir (Levemir) 100 Unit/Ml Syr) 15 unit SQ [facility] Last Admin: 03/08/24 20:27 Dose: 15 unit Isosorbide Mononitrate (Isosorbide Mononitrate Er 60 Mg Tab.Er.24h) 120 mg PO DAILY [facility] Last Admin: 03/09/24 09:32 Dose: 120 mg Lactulose (Lactulose 20 Gm/30 Ml Cup) 20 gm PO DAILY PRN PRN Reason: Constipation Levetiracetam (Levetiracetam 500 Mg Tab) 500 mg PO BID [facility] Last Admin: 03/09/24 09:32 Dose: 500 mg Lorazepam (Lorazepam 0.5 Mg Tab) 0.5 mg PO Q6HR PRN PRN Reason: Anxiety Naloxone HCl (Naloxone 0.4 Mg/Ml 1 Ml Vial) 0.2 mg IV Q2M PRN PRN Reason: Opioid Reversal Nifedipine (Nifedipine Xl 60 Mg Tab.Er.24) 60 mg PO BID [facility] Last Admin: 03/09/24 09:31 Dose: 60 mg Ondansetron HCl (Ondansetron 4 Mg/2 Ml Vial) 4 mg IVP Q8HR PRN PRN Reason: Nausea And Vomiting Last Admin: 03/06/24 10:42 Dose: 4 mg Past medical history to include: Diabetes, hyperlipidemia, hypertension, obstructive sleep apnea, osteoarthritis, kidney stones, cognitive impairment, stroke hypertension with right-sided weakness, depression, seizure Social history: No history of smoking or alcohol. Lives with his and daughter. Does use a walker. Daughter is the POA Physical examination: VITAL SIGNS: 98.1, 67, 18, 123 x 56, 92% on 2 L GENERAL: Rather sleep today EYES: Pupils equal. Conjunctiva normal. HEENT: External appearance of nose and ears normal, oral cavity grossly normal. NECK: JVD not raised; masses not palpable. HEART: First and second heart sounds are normal; minimal edema. EXTREMITY: Some swelling in bruising along the inner side on the left arm especially upper arm. Slight tenderness. LUNGS: Respiratory rate normal; breath sounds. ABDOMEN: Soft, no tenderness no guarding rigidity, liver spleen not palpable, no masses palpable. PSYCH: Rather repeated today NEUROLOGICAL: [Cranial nerves grossly intact; no facial asymmetry, power 4/5 on the right side INVESTIGATIONS, reviewed in the clinical context: March 09: White count 7.7 hemoglobin 9.2 platelets 246 March 07: Sodium 136 potassium 4.1 creatinine 4.35 March 05: Sodium 136 potassium 4.1 BUN 48 creatinine 4.43 March 04, 2024: White count 7.1 hemoglobin 10.7 platelets 219 sodium 135 potassium 4.4 BUN 45 creatinine 3.94 bicarb 17 Troponin I less than 0.0130.015 EKG tracing personally reviewed by me-normal sinus rhythm. Some nonspecific T wave changes. Chest x-ray film personally reviewed by me-a bit underpenetrated. Cardiomegaly. Pulm edema Previous labs 2D echocardiogram: [November 2023] EF 65 to 70%. Creatinine 2.46 on January 2023 Assessment and plan: -Acute pulmonary edema a combination of possible CHF and worsening renal function: Improving Followed by nephrology and cardiology. Received IV Lasix. Fluid restriction Patient is at hemodialysis x 2. Not today. 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 Neck 1.4 mm, following Endo vascular fistula creation by in the left arm. This was followed up by patient's own vascular surgeon -Essential hypertension: With chronic kidney disease Imdur 120 mg daily, i Procardia 60 mg mg bid Coreg 12.5 twice daily -Worsening uremic symptoms. 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 On Levemir, NovoLog Follow Accu-Cheks closely. 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 Stevens -Chronic gait dysfunction uses a walker at home -Full code [Advance care planning discussed on March 04, 2024] Patient's daughter Penny who is the POA, was present so was the and the patient. Daughter was helping interpret the questions. Patient's overall condition was discussed at length. Patient has previously expressed himself to be DNR. is more inclined to be full code. Lengthy discussion was held. They will further discuss the same and get back and let us know if things are to be different. At present time patient remains to be full code.-Time spent about 30 minutes Ensure added. Next Allises due tomorrow. Looking for chair time Past Medical History Past Medical History: CVA/TIA, Diabetes Mellitus, Hyperlipidemia, Hypertension, Liver Disease, Renal Disease, Sleep Apnea/CPAP/BIPAP Additional Past Medical History / Comment(s): ARTHRITIS, kidney stones, possible dementia, kidney failure, neuropathy alia legs, carpal tunnel. CVA-jun 20 balance issues,speech impairment,vision impairment, receives injections to eyes r/t bleeding ,COVID 07/28/2022 History of Any Multi-Drug Resistant Organisms: None Reported Past Surgical History: Back Surgery Additional Past Surgical History / Comment(s): MASS REMOVED FROM BACK OF HEAD, eye surgery, Past Anesthesia/Blood Transfusion Reactions: No Reported Reaction Past Psychological History: Depression Smoking Status: Never smoker Past Alcohol Use History: None Reported Past Drug Use History: None Reported
[2024-03-09 17:03] LABS: Glucose,Whole Blood 220 mg/dL (70-110)
[2024-03-09 20:03] LABS: Glucose,Whole Blood 220 mg/dL (70-110)
[2024-03-10 06:11] LABS: Amorphous Sediment,Urine Rare /hpf; Appearance,Urine Cloudy (Clear); Bilirubin,Urine Negative (Negative); Blood,Urine Large (Negative); Budding Yeast,Urine Few /hpf; Color,Urine Light Orange; Glucose,Urine (UA) 2+ (Negative); Ketones,Urine Negative (Negative); Leukocyte Esterase,Urine Large (Negative); Nitrite,Urine Negative (Negative); PH, Urine 6.5 (5.0-8.0); Protein,Urine 3+ (Negative); RBC,Urine >182 /hpf (0-5); Specific Gravity,Urine 1.021 (1.001-1.035); Urobilinogen,Urine <2.0 mg/dL (<2.0); WBC,Urine 50 /hpf (0-5)
[2024-03-10 06:15] LABS: Glucose,Whole Blood 49 mg/dL (70-110)
[2024-03-10] MEDS: DEXTROSE 50% SYRINGE 50 ML IVP PRN (06:17)
[2024-03-10 06:32] LABS: Glucose,Whole Blood 93 mg/dL (70-110)
[2024-03-10 10:01] LABS: African American GFR (CKD) 15 (>60 ml/min/1.73 sqM); Anion Gap 2 mmol/L; Blood Urea Nitrogen 33 mg/dL (9-20); Calcium 7.9 mg/dL (8.4-10.2); Carbon Dioxide 29 mmol/L (22-30); Chloride 102 mmol/L (98-107); Glucose 88 mg/dL (74-99); Non-African American GFR(CKD) 13 (>60 ml/min/1.73 sqM); Potassium 4.1 mmol/L (3.5-5.1); Sodium 133 mmol/L (137-145)
[2024-03-10 11:28] LABS: Glucose,Whole Blood 93 mg/dL (70-110)
--- NOTE | 2024-03-10 13:21 | P.PN ---
Subjective patient is seen for follow-up for end-stage renal disease. Patient has been started on hemodialysis this admission on 03/05/2024. patient is seen on hemodialysis. Tolerating treatment well. Shortness of breath has improved. UA does show some pyuria. Patient also had low-grade fever last night. UF about 0.5 L today. Objective - Vital Signs Vital signs: Vital Signs Temp 97.8 F 03/10/24 09:50 Pulse 58 L 03/10/24 09:50 Resp 16 03/10/24 09:50 BP 115/87 03/10/24 09:50 Pulse Ox 99 03/10/24 09:50 FiO2 Intake & Output 03/09/24 03/10/24 03/10/24 18:59 06:59 18:59 Intake Total 360 Balance 360 Weight 92.5 kg 89.5 kg Intake: Oral 360 Other: Voiding Method Indwelling Catheter Indwelling Catheter Indwelling Catheter - Exam patient is awake, comfortable, no acute distress. Examination of the heart S1 and S2 Examination of the lungs decreased breath sounds at the bases Abdomen is soft nontender Examination of lower extremities shows no significant edema DEPLOYMENT MANAGER exam shows patient is able to move all 4 extremities. - Labs CBC & Chem 7: 03/09/24 12:57 03/10/24 09:27 Labs: Abnormal Lab Results - Last 24 Hours (Table) 03/09/24 03/09/24 03/10/24 Range/Units 17:01 20:00 04:00 Sodium (137-145) mmol/L BUN (9-20) mg/dL Creatinine (0.66-1.25) mg/dL POC Glucose (mg/dL) 220 H 220 H (70-110) mg/dL Calcium (8.4-10.2) mg/dL Urine Protein 3+ H (Negative) Urine Glucose (UA) 2+ H (Negative) Urine Blood Large H (Negative) Ur Leukocyte Esterase Large H (Negative) Urine RBC >182 H (0-5) /hpf Urine WBC 50 H (0-5) /hpf Amorphous Sediment Rare H (None) /hpf Urine Yeast (Budding) Few H (None) /hpf 03/10/24 03/10/24 Range/Units 06:13 09:27 Sodium 133 L (137-145) mmol/L BUN 33 H (9-20) mg/dL Creatinine 4.10 H (0.66-1.25) mg/dL POC Glucose (mg/dL) 49 L* (70-110) mg/dL Calcium 7.9 L (8.4-10.2) mg/dL Urine Protein (Negative) Urine Glucose (UA) (Negative) Urine Blood (Negative) Ur Leukocyte Esterase (Negative) Urine RBC (0-5) /hpf Urine WBC (0-5) /hpf Amorphous Sediment (None) /hpf Urine Yeast (Budding) (None) /hpf Assessment and Plan Assessment: 1. Chronic kidney disease stage V secondary to diabetic kidney disease, now end-stage renal disease. Patient underwent AV fistula surgery February 16, 2024 and is being followed by vascular surgery. . 2. Volume overload. improved. 3. Diabetes mellitus. 4. Hypertensive emergency. Blood pressure now better controlled. 5. Metabolic acidosis secondary to chronic kidney disease maintained on oral bicarb. Stable. 6. Acute on chronic diastolic CHF. 7. Pyuria rule out UTI. Patient was confused per family. Hu catheter will be discontinued and urine culture will be ordered. He may need empiric antibiotics. Plan: hemodialysis today with UF about 0.5 L DC Hu catheter. Send urine culture reevaluate for possible need for antibiotics.
[2024-03-10 16:38] LABS: Glucose,Whole Blood 167 mg/dL (70-110)
--- NOTE | 2024-03-10 17:40 | P.PN ---
Progress Note - Text Progress Note Date: 03/10/24 Chief Complaint: Short of breath This is a 78-year-old, Taiwanese-speaking patient of Dr. Santana. Chronic stable medical conditions include hyperlipidemia, diabetes, obstructive sleep apnea, osteoarthritis, kidney stones, cognitive impairment-dementia. 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 Had a loop recorder seizures. Visit his and daughter. Not a good historian Patient follows with kettle chipper Dr. Stevens. Patient was sent down to [place], where he underwent Endo fistula placement by -around February 16.. Developed mid left brachial aneurysm. Patient seen earlier today, accompanied by his and daughter Alannah Niño. For 2 days patient been having increasing shortness of breath. Decreased appetite. Normally has about 2-3 loose stools a day. Does wear depends. Patient himself is not a good historian. Denies any chest pain. Tired. Daughter really helps with being this For this Taiwanese-speaking gentleman/father. Slight edema. No fever no chills March 05: Laying in bed. is present. Patient did eat some. Blood pressure is better. Some improvement in shortness of breath. Currently no dialysis per nephrology. March 06: Laying in bed. Family at the bedside. Nephrology has decided to proceed with dialysis. Dr. Obrien this afternoon placed dialysis catheter. Appetite decreased. Blood pressure controlled. Patient confirmed-full code March 07: Patient had his first dialysis today. 1.5 L removed. Up in a chair. Eating better. at the bedside. March 08: Second hemodialysis today. Breathing a bit better. Did eat some diet. present. March 09: Did not sleep too well last night. Sleepy this morning. Oral intake variable. Due for next dialysis tomorrow. Ensure added. March 10: Decreased oral intake. Spoke to family members at the bedside. I personally fed the patient. Easily ate 3 teaspoons of food. Told him to be more persistent. There is a questionable UTI given that patient had a Hu catheter. Will give IV ceftriaxone. Spoke to nursing home social worker. Earliest chair time available is next Thursday. Note patient Accu-Chek dropped to 49 this morning. Will DC Levemir. Active Medications Acetaminophen (Acetaminophen Tab 325 Mg Tab) 650 mg PO Q6HR PRN PRN Reason: Mild Pain or Fever > 100.5 Last Admin: 03/09/24 23:21 Dose: 650 mg Apixaban (Apixaban 2.5 Mg Tablet) 2.5 mg PO BID [facility]; Protocol Last Admin: 03/10/24 09:52 Dose: 2.5 mg Aspirin (Aspirin 81 Mg) 81 mg PO DAILY [facility] Last Admin: 03/10/24 09:52 Dose: 81 mg Atorvastatin Calcium (Atorvastatin 20 Mg Tab) 20 mg PO HS [facility] Last Admin: 03/09/24 20:42 Dose: 20 mg Calcium Carbonate/Glycine (Calcium Carbonate 500 Mg Chewable) 1,000 mg PO Q4HR PRN PRN Reason: Dyspepsia Carvedilol (Carvedilol 12.5 Mg Tab) 12.5 mg PO BID-W/MEALS [facility] Last Admin: 03/10/24 16:21 Dose: 12.5 mg Dextrose/Water (Dextrose 50% Syringe 50 Ml) 25 ml IVP PER PROTOCOL PRN; Protocol PRN Reason: Hypoglycemia Last Admin: 03/10/24 06:17 Dose: 25 ml Dextrose/Water (Dextrose 50% Syringe 50 Ml) 50 ml IVP PER PROTOCOL PRN; Protocol PRN Reason: Hypoglycemia Duloxetine HCl (Duloxetine Hcl 30 Mg Capsule.Dr) 30 mg PO [facility] Last Admin: 03/09/24 20:42 Dose: 30 mg Ergocalciferol (Ergocalciferol 1,250 Mcg (50,000 Iu) Capsule) 1,250 mcg PO MO [facility] Last Admin: 03/07/24 10:22 Dose: 1,250 mcg Ceftriaxone Sodium 1 gm/ (Sodium Chloride) 50 mls @ 100 mls/hr IVPB Q24HR [facility]; Protocol Insulin Aspart (Insulin Aspart (Novolog) 100 Unit/Ml Vial) 0 unit SQ ACHS [facility]; Protocol Last Admin: 03/10/24 17:17 Dose: 2 unit Isosorbide Mononitrate (Isosorbide Mononitrate Er 60 Mg Tab.Er.24h) 120 mg PO DAILY [facility] Last Admin: 03/10/24 16:21 Dose: 120 mg Lactulose (Lactulose 20 Gm/30 Ml Cup) 20 gm PO DAILY PRN PRN Reason: Constipation Levetiracetam (Levetiracetam 500 Mg Tab) 500 mg PO BID [facility] Last Admin: 03/10/24 09:52 Dose: 500 mg Lorazepam (Lorazepam 0.5 Mg Tab) 0.5 mg PO Q6HR PRN PRN Reason: Anxiety Naloxone HCl (Naloxone 0.4 Mg/Ml 1 Ml Vial) 0.2 mg IV Q2M PRN PRN Reason: Opioid Reversal Nifedipine (Nifedipine Xl 60 Mg Tab.Er.24) 60 mg PO BID [facility] Last Admin: 03/10/24 16:13 Dose: Not Given Ondansetron HCl (Ondansetron 4 Mg/2 Ml Vial) 4 mg IVP Q8HR PRN PRN Reason: Nausea And Vomiting Last Admin: 03/06/24 10:42 Dose: 4 mg Past medical history to include: Diabetes, hyperlipidemia, hypertension, obstructive sleep apnea, osteoarthritis, kidney stones, cognitive impairment, stroke hypertension with right-sided weakness, depression, seizure Social history: No history of smoking or alcohol. Lives with his and daughter. Does use a walker. Daughter is the POA Physical examination: VITAL SIGNS: 98.5, 64, 18, 155 857, 98% on 2 L GENERAL: Lethargic/sleepy EYES: Pupils equal. Conjunctiva normal. HEENT: External appearance of nose and ears normal, oral cavity grossly normal. NECK: JVD not raised; masses not palpable. HEART: First and second heart sounds are normal; minimal edema. EXTREMITY: Some swelling in bruising along the inner side on the left arm especially upper arm. Slight tenderness. LUNGS: Respiratory rate normal; breath sounds. ABDOMEN: Soft, no tenderness no guarding rigidity, liver spleen not palpable, no masses palpable. PSYCH: Lethargic sleepy NEUROLOGICAL: [Cranial nerves grossly intact; no facial asymmetry, power 4/5 on the right side INVESTIGATIONS, reviewed in the clinical context: March 10: Potassium 4.1 creatinine 4.10 March 09: White count 7.7 hemoglobin 9.2 platelets 246 March 07: Sodium 136 potassium 4.1 creatinine 4.35 March 05: Sodium 136 potassium 4.1 BUN 48 creatinine 4.43 March 04, 2024: White count 7.1 hemoglobin 10.7 platelets 219 sodium 135 potassium 4.4 BUN 45 creatinine 3.94 bicarb 17 Troponin I less than 0.0130.015 EKG tracing personally reviewed by me-normal sinus rhythm. Some nonspecific T wave changes. Chest x-ray film personally reviewed by me-a bit underpenetrated. Cardiomegaly. Pulm edema Previous labs 2D echocardiogram: [November 2023] EF 65 to 70%. Creatinine 2.46 on January 2023 Assessment and plan: -Acute pulmonary edema a combination of possible CHF and worsening renal function: Improving Followed by nephrology and cardiology. Received IV Lasix. 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 Neck 1.4 mm, following Endo vascular fistula creation by in the left arm. This was followed up by patient's own vascular surgeon -Essential hypertension: With chronic kidney disease Imdur 120 mg daily, i Procardia 60 mg mg bid Coreg 12.5 twice daily -Worsening uremic symptoms. 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 Uncontrolled with hyperglycemia Stop Levemir. Continue with sliding scale -Depression otherwise specified Cymbalta -Hyperlipidemia On Lipitor -Chronic kidney disease stage 4 from hypertensive nephrosclerosis and diabetic nephropathy Follows with Dr. Stevens -Chronic gait dysfunction uses a walker at home -Full code [Advance care planning discussed on March 04, 2024] Patient's daughter Penny who is the POA, was present so was the and the patient. Daughter was helping interpret the questions. Patient's overall condition was discussed at length. Patient has previously expressed himself to be DNR. is more inclined to be full code. Lengthy discussion was held. They will further discuss the same and get back and let us know if things are to be different. At present time patient remains to be full code.-Time spent about 30 minutes Stop Levemir. Start IV ceftriaxone. Spoke to the family about to encourage feeding Past Medical History Past Medical History: CVA/TIA, Diabetes Mellitus, Hyperlipidemia, Hypertension, Liver Disease, Renal Disease, Sleep Apnea/CPAP/BIPAP Additional Past Medical History / Comment(s): ARTHRITIS, kidney stones, possible dementia, kidney failure, neuropathy alia legs, carpal tunnel. CVA-oct 20 balance issues,speech impairment,vision impairment, receives injections to eyes r/t bleeding ,COVID 07/28/2022 History of Any Multi-Drug Resistant Organisms: None Reported Past Surgical History: Back Surgery Additional Past Surgical History / Comment(s): MASS REMOVED FROM BACK OF HEAD, eye surgery, Past Anesthesia/Blood Transfusion Reactions: No Reported Reaction Past Psychological History: Depression Smoking Status: Never smoker Past Alcohol Use History: None Reported Past Drug Use History: None Reported
[2024-03-10 19:54] LABS: Glucose,Whole Blood 202 mg/dL (70-110)
[2024-03-11 06:03] LABS: Glucose,Whole Blood 160 mg/dL (70-110)
[2024-03-11 11:48] LABS: Glucose,Whole Blood 299 mg/dL (70-110)
--- NOTE | 2024-03-11 12:19 | P.PN ---
Progress Note - Text Progress Note Date: 03/11/24 Chief Complaint: Short of breath This is a 78-year-old, Guinean-speaking patient of Dr. Santana. Chronic stable medical conditions include hyperlipidemia, diabetes, obstructive sleep apnea, osteoarthritis, kidney stones, cognitive impairment-dementia. 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 Had a loop recorder seizures. Visit his and daughter. Not a good historian Patient follows with sterile proc tech Dr. Stevens. Patient was sent down to [place], where he underwent Endo fistula placement by -around February 16.. Developed mid left brachial aneurysm. Patient seen earlier today, accompanied by his and daughter Alannah Niño. For 2 days patient been having increasing shortness of breath. Decreased appetite. Normally has about 2-3 loose stools a day. Does wear depends. Patient himself is not a good historian. Denies any chest pain. Tired. Daughter really helps with being this For this Guinean-speaking gentleman/father. Slight edema. No fever no chills March 05: Laying in bed. is present. Patient did eat some. Blood pressure is better. Some improvement in shortness of breath. Currently no dialysis per nephrology. March 06: Laying in bed. Family at the bedside. Nephrology has decided to proceed with dialysis. Dr. Obrien this afternoon placed dialysis catheter. Appetite decreased. Blood pressure controlled. Patient confirmed-full code March 07: Patient had his first dialysis today. 1.5 L removed. Up in a chair. Eating better. at the bedside. March 08: Second hemodialysis today. Breathing a bit better. Did eat some diet. present. March 09: Did not sleep too well last night. Sleepy this morning. Oral intake variable. Due for next dialysis tomorrow. Ensure added. March 10: Decreased oral intake. Spoke to family members at the bedside. I personally fed the patient. Easily ate 3 teaspoons of food. Told him to be more persistent. There is a questionable UTI given that patient had a Hu catheter. Will give IV ceftriaxone. Spoke to director social service. Earliest chair time available is next Thursday. Note patient Accu-Chek dropped to 49 this morning. Will DC Levemir. March 11: Patient more awake today. Communicating much better. Sleep hygiene explained to the nurse. Improved patient circadian rhythm. Will add scheduled 4 units NovoLog with meals. Discharge patient over the weekend once chair time is confirmed and cleared by nephrology. Active Medications Acetaminophen (Acetaminophen Tab 325 Mg Tab) 650 mg PO Q6HR PRN PRN Reason: Mild Pain or Fever > 100.5 Last Admin: 03/11/24 00:58 Dose: 650 mg Apixaban (Apixaban 2.5 Mg Tablet) 2.5 mg PO BID [facility]; Protocol Last Admin: 03/11/24 09:07 Dose: 2.5 mg Aspirin (Aspirin 81 Mg) 81 mg PO DAILY [facility] Last Admin: 03/11/24 09:07 Dose: 81 mg Atorvastatin Calcium (Atorvastatin 20 Mg Tab) 20 mg PO HS [facility] Last Admin: 03/10/24 20:28 Dose: 20 mg Calcium Carbonate/Glycine (Calcium Carbonate 500 Mg Chewable) 1,000 mg PO Q4HR PRN PRN Reason: Dyspepsia Carvedilol (Carvedilol 12.5 Mg Tab) 12.5 mg PO BID-W/MEALS [facility] Last Admin: 03/11/24 06:07 Dose: 12.5 mg Dextrose/Water (Dextrose 50% Syringe 50 Ml) 25 ml IVP PER PROTOCOL PRN; Protocol PRN Reason: Hypoglycemia Last Admin: 03/10/24 06:17 Dose: 25 ml Dextrose/Water (Dextrose 50% Syringe 50 Ml) 50 ml IVP PER PROTOCOL PRN; Protocol PRN Reason: Hypoglycemia Duloxetine HCl (Duloxetine Hcl 30 Mg Capsule.Dr) 30 mg PO HS [facility] Last Admin: 03/10/24 20:28 Dose: 30 mg Ergocalciferol (Ergocalciferol 1,250 Mcg (50,000 Iu) Capsule) 1,250 mcg PO MO [facility] Last Admin: 03/07/24 10:22 Dose: 1,250 mcg Ceftriaxone Sodium 1 gm/ (Sodium Chloride) 50 mls @ 100 mls/hr IVPB Q24HR [facility]; Protocol Last Admin: 03/11/24 09:07 Dose: 100 mls/hr Insulin Aspart (Insulin Aspart (Novolog) 100 Unit/Ml Vial) 0 unit SQ ACHS [facility]; Protocol Last Admin: 03/11/24 12:14 Dose: 6 unit Insulin Aspart (Insulin Aspart (Novolog) 100 Unit/Ml Vial) 4 unit SQ AC-TID [facility] Isosorbide Mononitrate (Isosorbide Mononitrate Er 60 Mg Tab.Er.24h) 120 mg PO DAILY [facility] Last Admin: 03/11/24 09:07 Dose: 120 mg Lactulose (Lactulose 20 Gm/30 Ml Cup) 20 gm PO DAILY PRN PRN Reason: Constipation Levetiracetam (Levetiracetam 500 Mg Tab) 500 mg PO BID [facility] Last Admin: 03/11/24 09:07 Dose: 500 mg Lorazepam (Lorazepam 0.5 Mg Tab) 0.5 mg PO Q6HR PRN PRN Reason: Anxiety Naloxone HCl (Naloxone 0.4 Mg/Ml 1 Ml Vial) 0.2 mg IV Q2M PRN PRN Reason: Opioid Reversal Nifedipine (Nifedipine Xl 60 Mg Tab.Er.24) 60 mg PO BID [facility] Last Admin: 03/11/24 09:07 Dose: 60 mg Ondansetron HCl (Ondansetron 4 Mg/2 Ml Vial) 4 mg IVP Q8HR PRN PRN Reason: Nausea And Vomiting Last Admin: 03/06/24 10:42 Dose: 4 mg Past medical history to include: Diabetes, hyperlipidemia, hypertension, obstructive sleep apnea, osteoarthritis, kidney stones, cognitive impairment, stroke hypertension with right-sided weakness, depression, seizure Social history: No history of smoking or alcohol. Lives with his and daughter. Does use a walker. Daughter is the POA Physical examination: VITAL SIGNS: 98, 58, 20, 1 one 5 x 53, 97% on 2 L GENERAL: More awake answering questions EYES: Pupils equal. Conjunctiva normal. HEENT: External appearance of nose and ears normal, oral cavity grossly normal. NECK: JVD not raised; masses not palpable. HEART: First and second heart sounds are normal; minimal edema. EXTREMITY: Some swelling in bruising along the inner side on the left arm especially upper arm. Slight tenderness. LUNGS: Respiratory rate normal; breath sounds. ABDOMEN: Soft, no tenderness no guarding rigidity, liver spleen not palpable, no masses palpable. PSYCH: More awake answering simple questions NEUROLOGICAL: [Cranial nerves grossly intact; no facial asymmetry, power 4/5 on the right side INVESTIGATIONS, reviewed in the clinical context: March 10: Potassium 4.1 creatinine 4.10 March 09: White count 7.7 hemoglobin 9.2 platelets 246 March 07: Sodium 136 potassium 4.1 creatinine 4.35 March 05: Sodium 136 potassium 4.1 BUN 48 creatinine 4.43 March 04, 2024: White count 7.1 hemoglobin 10.7 platelets 219 sodium 135 potassium 4.4 BUN 45 creatinine 3.94 bicarb 17 Troponin I less than 0.0130.015 EKG tracing personally reviewed by me-normal sinus rhythm. Some nonspecific T wave changes. Chest x-ray film personally reviewed by me-a bit underpenetrated. Cardiomegaly. Pulm edema Previous labs 2D echocardiogram: [November 2023] EF 65 to 70%. Creatinine 2.46 on January 2023 Assessment and plan: -Acute pulmonary edema a combination of possible CHF and worsening renal function: Improving Followed by nephrology and cardiology. Received IV Lasix. 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 Neck 1.4 mm, following Endo vascular fistula creation by in the left arm. 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 Uncontrolled with hyperglycemia Stop Levemir. Continue with sliding scale -Depression otherwise specified Cymbalta -Hyperlipidemia On Lipitor -Chronic kidney disease stage 4 from hypertensive nephrosclerosis and diabetic nephropathy Follows with Dr. Stevens -Chronic gait dysfunction uses a walker at home -Full code [Advance care planning discussed on March 04, 2024] Patient's daughter Penny who is the POA, was present so was the and the patient. Daughter was helping interpret the questions. Patient's overall condition was discussed at length. Patient has previously expressed himself to be DNR. is more inclined to be full code. Lengthy discussion was held. They will further discuss the same and get back and let us know if things are to be different. At present time patient remains to be full code.-Time spent about 30 minutes Sleep hygiene discussed with nurse. Educated patient nursing staff aides and family. Plan for discharge when cleared by nephrology and chair time available Past Medical History Past Medical History: CVA/TIA, Diabetes Mellitus, Hyperlipidemia, Hypertension, Liver Disease, Renal Disease, Sleep Apnea/CPAP/BIPAP Additional Past Medical History / Comment(s): ARTHRITIS, kidney stones, possible dementia, kidney failure, neuropathy alia legs, carpal tunnel. CVA-oct 20 balance issues,speech impairment,vision impairment, receives injections to eyes r/t bleeding ,COVID 07/28/2022 History of Any Multi-Drug Resistant Organisms: None Reported Past Surgical History: Back Surgery Additional Past Surgical History / Comment(s): MASS REMOVED FROM BACK OF HEAD, eye surgery, Past Anesthesia/Blood Transfusion Reactions: No Reported Reaction Past Psychological History: Depression Smoking Status: Never smoker Past Alcohol Use History: None Reported Past Drug Use History: None Reported
[2024-03-11] MEDS: INSULIN ASPART (NovoLOG) 100 UNIT/ML VIAL SQ SCH (12:28)
[2024-03-11 16:25] LABS: Glucose,Whole Blood 251 mg/dL (70-110)
--- NOTE | 2024-03-11 17:31 | P.PN ---
Subjective patient is seen for follow-up for end-stage renal disease. Patient has been started on hemodialysis this admission on 03/05/2024. Tolerated hemodialysis well yesterday. UF about 600 mL. Shortness of breath has improved. Tolerating oral intake. Mentation has also improved. Family is present at bedside. Hu catheter was discontinued yesterday and repeat UA will be sent. No fever noted. Objective - Vital Signs Vital signs: Vital Signs Temp 97.5 F L 03/11/24 16:11 Pulse 59 L 03/11/24 16:11 Resp 20 03/11/24 16:11 BP 137/59 03/11/24 16:11 Pulse Ox 99 03/11/24 16:11 FiO2 Intake & Output 03/10/24 03/11/24 03/11/24 18:59 06:59 18:59 Intake Total 970 358 Output Total 649 300 Balance 321 -300 358 Weight 88 kg Intake: Oral 570 358 Hemodialysis 400 Output: Urine 300 Straight 300 Hemodialysis 649 Other: Voiding Method Indwelling Catheter # Voids 1 # Bowel Movements 1 1 - Exam patient is awake, comfortable, no acute distress. Examination of the heart S1 and S2 Examination of the lungs decreased breath sounds at the bases Abdomen is soft nontender Examination of lower extremities shows no significant edema EMERGENCY OPERATOR exam shows patient is able to move all 4 extremities. - Labs CBC & Chem 7: 03/09/24 12:57 03/10/24 09:27 Labs: Abnormal Lab Results - Last 24 Hours (Table) 03/10/24 03/11/24 03/11/24 Range/Units 19:53 05:53 11:47 POC Glucose (mg/dL) 202 H 160 H 299 H (70-110) mg/dL 03/11/24 Range/Units 16:22 POC Glucose (mg/dL) 251 H (70-110) mg/dL Assessment and Plan Assessment: 1. Chronic kidney disease stage V secondary to diabetic kidney disease, now end-stage renal disease. Patient underwent wavelinq AV fistula surgery February 16, 2024 and is being followed by vascular surgery for a pseudoaneurysm which has resolved. . 2. Volume overload. improved. 3. Diabetes mellitus. 4. Hypertensive emergency. Blood pressure now better controlled. 5. Metabolic acidosis secondary to chronic kidney disease maintained on oral bicarb. Stable. 6. Acute on chronic diastolic CHF. 7. Pyuria rule out UTI. Patient was confused per family much improved today. Hu catheter has been discontinued and repeat UA will be sent today. No fever noted. Plan: hemodialysis in a.m. Patient will be maintained on Thursday schedule. Monitor for urine retention. Repeat UA. Patient is encouraged to increase oral intake.
--- NOTE | 2024-03-11 18:15 | CDI ---
Documentation Clarification Form Date: 03/11/2024 05:50:26 PM From: Yadira Frost RN, CCDS Phone: [phone] Admit Date: 03/04/2024 08:04:00 AM Patient Name: Edgardo Alvarez Visit Number: [id number] Discharge Date: ATTENTION: The Clinical Documentation Specialists (CDI) and [facility] Coding Staff appreciate your assistance in clarifying documentation. Please respond to the clarification below the line at the bottom and electronically sign. The CDI & [facility] Coding staff will review the response and follow-up if needed. Please note: Queries are made part of the Legal Health Record. If you have any questions, please contact the author of this message via ITS. Dr. Emmanuel Donovan Encephalopathy is documented in the progress notes starting on 03/10/24. Additional clarification regarding the type of encephalopathy is requested. 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 03/04 VS: 222/89 73 21 97.8 96% RA. 226/93 72 20 95% RA 03/10 VS: (11:45) 143/58 63 18 98.6 98% 2/L NC Labs: (03/10) Na+ 133 BUN 33 CR 4.10 UA: Large Blood, Ur Leukocyte Esterase - Large, Urine WBC 30 He was started on hemodialysis this admission on 03/05/2403/10 Attending Progress Note: Acute UTI possibly from Hu could be contributing to patient's encephalopathy Start IV ceftriaxone 03/10 Nephrology progress note: Pyuria rule out UTI. Patient was confused per family. Hu catheter will be discontinued and urine culture will be ordered. He may need empiric antibiotics Treatment: Rocephin 1GM IVPB Q 24 HR 03/10-03/11 Monitor I&O Please clarify the type of encephalopathy, if known: [ x] Metabolic Encephalopathy [ ] Hypertensive Encephalopathy [ ] Other, please specify [ ] Unable to determine (Template Last Revised: November 2020) MTDD
[2024-03-11 19:12] LABS: Mucus,Urine Rare /hpf; RBC,Urine >182 /hpf (0-5); WBC,Urine 8 /hpf (0-5)
[2024-03-11 19:13] LABS: Appearance,Urine Bloody (Clear)
[2024-03-11 19:14] LABS: Color,Urine Dark Red
[2024-03-11 20:34] LABS: Glucose,Whole Blood 227 mg/dL (70-110)
[2024-03-11] MEDS: traMADol 50 MG TAB PO PRN (20:43)
[2024-03-11] MEDS: LORazepam 0.5 MG TAB PO PRN (23:45)
[2024-03-12 06:12] LABS: Glucose,Whole Blood 185 mg/dL (70-110)
[2024-03-12 11:17] LABS: Glucose,Whole Blood 224 mg/dL (70-110)
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
[2024-03-12 16:08] LABS: Glucose,Whole Blood 292 mg/dL (70-110)
--- NOTE | 2024-03-12 19:23 | P.PN ---
Subjective Progress Note Date: 03/12/24 Patient is seen for follow-up for end-stage renal disease. Patient has been started on hemodialysis this admission on 03/05/2024. Seen while on HD today. Patient is awake, comfortable, no acute distress. 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 Objective - Vital Signs Vital signs: Vital Signs Temp 98.5 F 03/12/24 09:10 Pulse 64 03/12/24 11:17 Resp 18 03/12/24 11:17 BP 131/63 03/12/24 11:17 Pulse Ox 99 03/12/24 11:17 FiO2 Intake & Output 03/11/24 03/12/24 03/12/24 18:59 06:59 18:59 Intake Total 628 290 Output Total 600 Balance 628 -600 290 Weight 95 kg Intake: Intake, IV Titration 270 Amount Sodium Chloride 0.9% 500 220 ml 500 ml @ 0 mls/hr IV . [facility] Rx#: [id number] cefTRIAXone 1 gm In 50 Sodium Chloride 0.9% 50 ml @ 100 mls/hr IVPB Q24HR [facility] Rx#:[id number] Oral 358 290 Output: Urine 600 Other: Voiding Method Indwelling Catheter Indwelling Catheter # Voids 2 # Bowel Movements 1 - Labs CBC & Chem 7: 03/09/24 12:57 03/10/24 09:27 Labs: Abnormal Lab Results - Last 24 Hours (Table) 03/11/24 03/11/24 03/11/24 Range/Units 11:47 16:22 18:56 POC Glucose (mg/dL) 299 H 251 H (70-110) mg/dL Urine RBC >182 H (0-5) /hpf Urine WBC 8 H (0-5) /hpf Urine Mucus Rare H (None) /hpf 03/11/24 03/12/24 03/12/24 Range/Units 20:33 06:09 11:15 POC Glucose (mg/dL) 227 H 185 H 224 H (70-110) mg/dL Urine RBC (0-5) /hpf Urine WBC (0-5) /hpf Urine Mucus (None) /hpf Assessment and Plan Assessment: 1. Chronic kidney disease stage V secondary to diabetic kidney disease, now end- stage renal disease. Patient underwent wavelinq AV fistula surgery February 16, 2024 and is being followed by vascular surgery for a pseudoaneurysm which has resolved. . 2. Volume overload. improved. 3. Diabetes mellitus. 4. Hypertensive emergency. Blood pressure now better controlled. 5. Metabolic acidosis secondary to chronic kidney disease maintained on oral bicarb. Stable. 6. Acute on chronic diastolic CHF. 7. Pyuria rule out UTI. Patient was confused per family much improved today. Hu catheter has been discontinued and repeat UA will be sent today. No fever noted. Plan: Hemodialysis today. Patient will be maintained on Thursday schedule. Monitor for urine retention. Repeat UA. Patient is encouraged to increase oral intake. Discharge after HD today.
[2024-03-12 20:14] LABS: Glucose,Whole Blood 149 mg/dL (70-110)
[2024-03-13] MEDS: QUEtiapine 25 MG TAB PO STA (04:39)
[2024-03-13 04:44] LABS: Glucose,Whole Blood 280 mg/dL (70-110)
[2024-03-13 06:04] LABS: Glucose,Whole Blood 267 mg/dL (70-110)
[2024-03-13 06:57] LABS: HCT 24.5 % (39.0-53.0); MCH 30.2 pg (25.0-35.0); MCHC 32.7 g/dL (31.0-37.0); MCV 92.4 fL (80.0-100.0); Mean Platelet Volume 8.8; Platelet Count 243 k/uL (150-450); RBC 2.66 m/uL (4.30-5.90); RDW 13.8 % (11.5-15.5); WBC 6.2 k/uL (3.8-10.6)
[2024-03-13 07:18] LABS: African American GFR (CKD) 26 (>60 ml/min/1.73 sqM); Anion Gap 2 mmol/L; Blood Urea Nitrogen 19 mg/dL (9-20); Calcium 7.5 mg/dL (8.4-10.2); Carbon Dioxide 31 mmol/L (22-30); Chloride 99 mmol/L (98-107); Glucose 235 mg/dL (74-99); Non-African American GFR(CKD) 22 (>60 ml/min/1.73 sqM); Potassium 4.3 mmol/L (3.5-5.1); Sodium 132 mmol/L (137-145)
--- NOTE | 2024-03-13 10:15 | P.GSCN ---
History of Present Illness Consult date: 03/13/24 Reason for Consult: gross hematuria History of present illness: 78-year-old gentleman in the hospital shortness of breath. He has chronic renal failure and is dialysis dependent. He has had 2 catheters during this hospitalization. Per the family the bleeding occurred after the first catheterization. He does not have problems of bleeding a prior to this. He did have kidney stones years ago. He does have a larger prostate based on the appearance of the catheter emanating from the penis. The penis outside has a paraphimosis that has not been reduced since placing the catheter up. Anticoagulation has been discontinued. Review of Systems All systems: negative - Constitutional Denies fever, Denies weight loss - EENT Eyes: denies blurred vision Ears, nose, mouth and throat: Denies dysphagia - Cardiovascular Denies chest pain, Denies shortness of breath - Respiratory Denies cough, Denies 7 - Gastrointestinal Reports as per HPI - Genitourinary Denies dysuria, Denies hematuria - Integumentary Denies rash, Denies unusual bruising - Neurological Denies headaches, Denies syncope - Hematologic/Lymphatic Denies easy bleeding, Denies easy bruising Past Medical History Past Medical History: CVA/TIA, Diabetes Mellitus, Hyperlipidemia, Hypertension, Liver Disease, Renal Disease, Sleep Apnea/CPAP/BIPAP Additional Past Medical History / Comment(s): ARTHRITIS, kidney stones, possible dementia, kidney failure, neuropathy alia legs, carpal tunnel. CVA-jul 17 balance issues,speech impairment,vision impairment, receives injections to eyes r/t bleeding ,COVID 07/28/2022 History of Any Multi-Drug Resistant Organisms: None Reported Past Surgical History: Back Surgery, Cholecystectomy Additional Past Surgical History / Comment(s): MASS REMOVED FROM BACK OF HEAD, eye surgery, Past Anesthesia/Blood Transfusion Reactions: No Reported Reaction Past Psychological History: Depression Smoking Status: Never smoker Past Alcohol Use History: None Reported Past Drug Use History: None Reported - Past Family History Father Family Medical History: Diabetes Mellitus Mother Family Medical History: Diabetes Mellitus Brother(s) Family Medical History: Cancer Sister(s) Family Medical History: Cancer Medications and Allergies Home Medications Medication Instructions Recorded Confirmed Type DULoxetine HCL [Cymbalta] 30 mg PO HS 03/13/16 03/04/24 History Isosorbide Mononitrate ER [Imdur] 60 mg PO DAILY 03/13/16 03/04/24 History Clopidogrel [Plavix] 75 mg PO DAILY #30 tab 07/11/20 03/04/24 Rx levETIRAcetam [Keppra] 500 mg PO BID 12/11/20 03/04/24 History Atorvastatin [Lipitor] 20 mg PO HS 07/18/21 03/04/24 History Insulin Aspart [NovoLOG Flexpen] 10 units SQ AC-BID@0800,1200 07/28/21 03/04/24 History Insulin Aspart [NovoLOG Flexpen] 12 units SQ W/SUPPER 07/28/21 03/04/24 History Vitamin E 400 unit PO DAILY 11/10/21 03/04/24 History Insulin Glargine,Hum.rec.anlog 30 units SQ DAILY #0 11/12/21 03/04/24 Rx [Lantus Solostar Pen] Insulin Aspart [NovoLOG Flexpen] See Protocol SQ TID-W/MEALS PRN 02/02/22 03/04/24 History Sodium Bicarbonate Tab 650 mg PO BID #30 tab 12/08/23 03/04/24 Rx carvediloL [Coreg*] 12.5 mg PO BID-W/MEALS #60 tab 12/08/23 03/04/24 Rx Ergocalciferol (Vitamin D2) 1,250 mcg PO MO 02/24/24 03/04/24 History [Drisdol (50,000 Iu)] Furosemide [Lasix] See Taper PO DAILY 03/04/24 03/04/24 History NIFEdipine XL [Procardia XL] 60 mg PO BID 03/04/24 03/04/24 History Allergies Allergy/AdvReac Type Severity Reaction Status Date / Time No Known Allergies Allergy Verified 03/04/24 08:24 Surgical - Exam Vital Signs Temp Pulse Resp BP Pulse Ox 97.8 F 73 21 222/89 96 03/04/24 06:03 03/04/24 06:03 03/04/24 06:03 03/04/24 06:03 03/04/24 06:03 - General well developed, well nourished, no distress - Genitourinary indwelling catheter, large prostate, paraphimosis Results - Labs 03/13/24 06:15 03/13/24 06:15 Abnormal Lab Results - Last 24 Hours (Table) 03/12/24 03/12/24 03/12/24 Range/Units 11:15 16:04 20:12 RBC (4.30-5.90) m/uL Hgb (13.0-17.5) gm/dL Hct (39.0-53.0) % Sodium (137-145) mmol/L Carbon Dioxide (22-30) mmol/L Creatinine (0.66-1.25) mg/dL Glucose (74-99) mg/dL POC Glucose (mg/dL) 224 H 292 H 149 H (70-110) mg/dL Calcium (8.4-10.2) mg/dL 03/13/24 03/13/24 03/13/24 Range/Units 04:39 06:03 06:15 RBC 2.66 L (4.30-5.90) m/uL Hgb 8.0 L (13.0-17.5) gm/dL Hct 24.5 L (39.0-53.0) % Sodium (137-145) mmol/L Carbon Dioxide (22-30) mmol/L Creatinine (0.66-1.25) mg/dL Glucose (74-99) mg/dL POC Glucose (mg/dL) 280 H 267 H (70-110) mg/dL Calcium (8.4-10.2) mg/dL 03/13/24 Range/Units 06:15 RBC (4.30-5.90) m/uL Hgb (13.0-17.5) gm/dL Hct (39.0-53.0) % Sodium 132 L (137-145) mmol/L Carbon Dioxide 31 H (22-30) mmol/L Creatinine 2.65 H (0.66-1.25) mg/dL Glucose 235 H (74-99) mg/dL POC Glucose (mg/dL) (70-110) mg/dL Calcium 7.5 L (8.4-10.2) mg/dL Diabetes panel 03/13/24 Range/Units 06:15 Sodium 132 L (137-145) mmol/L Potassium 4.3 (3.5-5.1) mmol/L Chloride 99 (98-107) mmol/L Carbon Dioxide 31 H (22-30) mmol/L BUN 19 (9-20) mg/dL Creatinine 2.65 H (0.66-1.25) mg/dL Glucose 235 H (74-99) mg/dL Calcium 7.5 L (8.4-10.2) mg/dL Calcium panel 03/13/24 Range/Units 06:15 Calcium 7.5 L (8.4-10.2) mg/dL Pituitary panel 03/13/24 Range/Units 06:15 Sodium 132 L (137-145) mmol/L Potassium 4.3 (3.5-5.1) mmol/L Chloride 99 (98-107) mmol/L Carbon Dioxide 31 H (22-30) mmol/L BUN 19 (9-20) mg/dL Creatinine 2.65 H (0.66-1.25) mg/dL Glucose 235 H (74-99) mg/dL Calcium 7.5 L (8.4-10.2) mg/dL Adrenal panel 03/13/24 Range/Units 06:15 Sodium 132 L (137-145) mmol/L Potassium 4.3 (3.5-5.1) mmol/L Chloride 99 (98-107) mmol/L Carbon Dioxide 31 H (22-30) mmol/L BUN 19 (9-20) mg/dL Creatinine 2.65 H (0.66-1.25) mg/dL Glucose 235 H (74-99) mg/dL Calcium 7.5 L (8.4-10.2) mg/dL Assessment and Plan Assessment: impression: Gross hematuria probably secondary to large prostate aggravated by catheter and anticoagulation. Paraphimosis. Multiple cardiac and medical problems. Chronic renal failure. recommendations: The catheter should remain in place until the old blood dissolved and comes out of the catheter. At that point time the catheter can be removed for a voiding trial. I will reduce the paraphimosis.
--- NOTE | 2024-03-13 10:16 | P.PCN ---
Date of Procedure: 03/13/24 Preoperative Diagnosis: paraphimosis Postoperative Diagnosis: same Procedure(s) Performed: manual reduction of paraphimosis Anesthesia: none Indications for Procedure: penile swelling post catheter placement Description of Procedure: the patient's catheters detached from his leg up. I grabbed the penis and pull the foreskin over the head of the penis while pushing the head of the penis beneath the foreskin. Reduction goes without problems. The nursing staff is been instructed always to pull the foreskin over the penis after catheter placement
[2024-03-13 11:55] LABS: Glucose,Whole Blood 102 mg/dL (70-110)
--- NOTE | 2024-03-13 12:26 | P.PN ---
Subjective Progress Note Date: 03/13/24 Patient is seen for follow-up for end-stage renal disease. Patient has been started on hemodialysis this admission on 03/05/2024. Continued hematuria with Hu. Patient is awake, comfortable, no acute distress. 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 Objective - Vital Signs Vital signs: Vital Signs Temp 98.1 F 03/13/24 08:29 Pulse 66 03/13/24 08:29 Resp 16 03/13/24 08:29 BP 129/57 03/13/24 08:29 Pulse Ox 99 03/13/24 08:29 FiO2 Intake & Output 03/12/24 03/13/24 03/13/24 18:59 06:59 18:59 Intake Total 290 400 Output Total 500 1600 Balance -210 -1200 Weight 98 kg Intake: Oral 290 Hemodialysis 400 Output: Urine 500 400 Hemodialysis 1200 Other: Voiding Method Indwelling Catheter Indwelling Catheter - Labs CBC & Chem 7: 03/13/24 06:15 03/13/24 06:15 Labs: Abnormal Lab Results - Last 24 Hours (Table) 03/12/24 03/12/24 03/12/24 Range/Units 11:15 16:04 20:12 RBC (4.30-5.90) m/uL Hgb (13.0-17.5) gm/dL Hct (39.0-53.0) % Sodium (137-145) mmol/L Carbon Dioxide (22-30) mmol/L Creatinine (0.66-1.25) mg/dL Glucose (74-99) mg/dL POC Glucose (mg/dL) 224 H 292 H 149 H (70-110) mg/dL Calcium (8.4-10.2) mg/dL 03/13/24 03/13/24 03/13/24 Range/Units 04:39 06:03 06:15 RBC 2.66 L (4.30-5.90) m/uL Hgb 8.0 L (13.0-17.5) gm/dL Hct 24.5 L (39.0-53.0) % Sodium (137-145) mmol/L Carbon Dioxide (22-30) mmol/L Creatinine (0.66-1.25) mg/dL Glucose (74-99) mg/dL POC Glucose (mg/dL) 280 H 267 H (70-110) mg/dL Calcium (8.4-10.2) mg/dL 03/13/24 Range/Units 06:15 RBC (4.30-5.90) m/uL Hgb (13.0-17.5) gm/dL Hct (39.0-53.0) % Sodium 132 L (137-145) mmol/L Carbon Dioxide 31 H (22-30) mmol/L Creatinine 2.65 H (0.66-1.25) mg/dL Glucose 235 H (74-99) mg/dL POC Glucose (mg/dL) (70-110) mg/dL Calcium 7.5 L (8.4-10.2) mg/dL Assessment and Plan Assessment: 1. Chronic kidney disease stage V secondary to diabetic kidney disease, now end-stage renal disease. Patient underwent wavelinq AV fistula surgery February 16, 2024 and is being followed by vascular surgery for a pseudoaneurysm which has resolved. . 2. Volume overload. improved. 3. Diabetes mellitus. 4. Hypertensive emergency. Blood pressure now better controlled. 5. Metabolic acidosis secondary to chronic kidney disease maintained on oral bicarb. Stable. 6. Acute on chronic diastolic CHF. 7. Pyuria rule out UTI. Patient was confused per family much improved today. Hu catheter has been discontinued and repeat UA will be sent today. No fever noted. Plan: Patient will be maintained on Thursday schedule. Hu management per urology. TOV today. Patient is encouraged to increase oral intake.
--- NOTE | 2024-03-13 12:33 | P.PN ---
Subjective Progress Note Date: 03/13/24 This is a 78-year-old, British-speaking patient of Dr. Santana. Chronic stable medical conditions include hyperlipidemia, diabetes, obstructive sleep apnea, osteoarthritis, kidney stones, cognitive impairment-dementia. 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 Had a loop recorder seizures. Visit his and daughter. Not a good historian Patient follows with cook morning Dr. Stevens. Patient was sent down to [place], where he underwent Endo fistula placement by -around February 16.. Developed mid left brachial aneurysm. Patient seen earlier today, accompanied by his and daughter Alannah Niño. For 2 days patient been having increasing shortness of breath. Decreased appetite. Normally has about 2-3 loose stools a day. Does wear depends. Patient himself is not a good historian. Denies any chest pain. Tired. Daughter really helps with being this For this British-speaking gentleman/father. Slight edema. No fever no chills March 05: Laying in bed. is present. Patient did eat some. Blood pressure is better. Some improvement in shortness of breath. Currently no dialysis per nephrology. March 06: Laying in bed. Family at the bedside. Nephrology has decided to proceed with dialysis. Dr. Obrien this afternoon placed dialysis catheter. Appetite decreased. Blood pressure controlled. Patient confirmed-full code March 07: Patient had his first dialysis today. 1.5 L removed. Up in a chair. Eating better. at the bedside. March 08: Second hemodialysis today. Breathing a bit better. Did eat some diet. present. March 09: Did not sleep too well last night. Sleepy this morning. Oral intake variable. Due for next dialysis tomorrow. Ensure added. March 10: Decreased oral intake. Spoke to family members at the bedside. I personally fed the patient. Easily ate 3 teaspoons of food. Told him to be mor e persistent. There is a questionable UTI given that patient had a Hu catheter. Will give IV ceftriaxone. Spoke to dialysis social worker. Earliest chair time available is next Thursday. Note patient Accu-Chek dropped to 49 this morning. Will DC Levemir. March 11: Patient more awake today. Communicating much better. Sleep hygiene explained to the nurse. Improved patient circadian rhythm. Will add scheduled 4 units NovoLog with meals. Discharge patient over the weekend once chair time is confirmed and cleared by nephrology. 03/12. Patient seen and examined. Patient had a Hu placed yesterday, currently having hematuria. Patient also had swelling and tenderness of his penis 03/13. Patient seen and examined. Lab work done this morning showed W6.2, hemoglobin 8, platelet count 248, sodium 132, potassium 4.3. Still having hematuria, will hold Eliquis for now REVIEW OF SYSTEMS: CONSTITUTIONAL: No fever, no malaise,. CARDIOVASCULAR: No chest pain, no palpitations, no syncope. PULMONARY: No shortness of breath, no cough, GASTROINTESTINAL: No diarrhea, no nausea, no vomiting, no abdominal pain. NEUROLOGICAL: No headaches, no weakness, PHYSICAL EXAMINATION: GENERAL: The patient is alert , not in any acute distress. HEENT: Pupils are round and equally reacting to light. EOMI. No scleral icterus. No conjunctival pallor. Normocephalic, atraumatic. No pharyngeal erythema. No thyromegaly. CARDIOVASCULAR: S1 and S2 present. No murmurs, rubs, or gallops. PULMONARY: Chest is clear to auscultation, no wheezing or crackles. ABDOMEN: Soft, nontender, nondistended, normoactive bowel sounds. No palpable organomegaly. MUSCULOSKELETAL: No joint swelling or deformity. EXTREMITIES: No cyanosis, clubbing, or pedal edema. NEUROLOGICAL: Gross neurological examination did not reveal any focal deficits. SKIN: No rashes. 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 Neck 1.4 mm, following Endo vascular fistula creation by in the left arm. -Essential hypertension: -Worsening uremic symptoms. -Seizure disorder, -Acute UTI possibly from Hu could be contributing to patient's encephalopathy -Right paresis from previous stroke -Moderate cognitive impairment -Diabetes mellitus type 2, chronically on insulin. Uncontrolled with hyperglycemia -Depression otherwise specified Hyperlipidemia -Chronic kidney disease stage 4 from hypertensive nephrosclerosis and diabetic nephropathy progressing to end-stage renal disease -Chronic gait dysfunction uses a walker at home Monitor vital signs Monitor CBC Monitor CMP Continue telemetry monitoring Strict I's I's and O's, daily weights Continue dialysis Continue IV Rocephin Imdur 120 mg daily, Procardia 60 mg mg bid Coreg 12.5 twice daily Monitor blood sugar level, continue sliding scale insulin Keppra 500 mg twice a day Holding Eliquis because of hematuria Nephrology following Consulted urology for hematuria Labs and medication were reviewed.. Continue same treatment. Continue with symptomatic treatment. Resume home medication. Monitor labs and vitals. DVT and GI prophylaxis. Further recommendations as per clinical course of the patient Dictation was produced using [employer] dictation software. please excuse any grammatical, word or spelling errors. Objective - Vital Signs Vital signs: Vital Signs Temp 98.1 F 03/13/24 08:29 Pulse 66 03/13/24 08:29 Resp 16 03/13/24 08:29 BP 129/57 03/13/24 08:29 Pulse Ox 99 03/13/24 08:29 FiO2 Intake & Output 03/12/24 03/13/24 03/13/24 18:59 06:59 18:59 Intake Total 290 400 Output Total 500 1600 Balance -210 -1200 Weight 98 kg Intake: Oral 290 Hemodialysis 400 Output: Urine 500 400 Hemodialysis 1200 Other: Voiding Method Indwelling Catheter Indwelling Catheter - Labs CBC & Chem 7: 03/13/24 06:15 03/13/24 06:15 Labs: Abnormal Lab Results - Last 24 Hours (Table) 03/12/24 03/12/24 03/12/24 Range/Units 11:15 16:04 20:12 RBC (4.30-5.90) m/uL Hgb (13.0-17.5) gm/dL Hct (39.0-53.0) % Sodium (137-145) mmol/L Carbon Dioxide (22-30) mmol/L Creatinine (0.66-1.25) mg/dL Glucose (74-99) mg/dL POC Glucose (mg/dL) 224 H 292 H 149 H (70-110) mg/dL Calcium (8.4-10.2) mg/dL 03/13/24 03/13/24 03/13/24 Range/Units 04:39 06:03 06:15 RBC 2.66 L (4.30-5.90) m/uL Hgb 8.0 L (13.0-17.5) gm/dL Hct 24.5 L (39.0-53.0) % Sodium (137-145) mmol/L Carbon Dioxide (22-30) mmol/L Creatinine (0.66-1.25) mg/dL Glucose (74-99) mg/dL POC Glucose (mg/dL) 280 H 267 H (70-110) mg/dL Calcium (8.4-10.2) mg/dL 03/13/24 Range/Units 06:15 RBC (4.30-5.90) m/uL Hgb (13.0-17.5) gm/dL Hct (39.0-53.0) % Sodium 132 L (137-145) mmol/L Carbon Dioxide 31 H (22-30) mmol/L Creatinine 2.65 H (0.66-1.25) mg/dL Glucose 235 H (74-99) mg/dL POC Glucose (mg/dL) (70-110) mg/dL Calcium 7.5 L (8.4-10.2) mg/dL
[2024-03-13 16:18] LABS: Glucose,Whole Blood 124 mg/dL (70-110)
[2024-03-13 20:35] LABS: Glucose,Whole Blood 145 mg/dL (70-110)
[2024-03-14 06:09] LABS: Glucose,Whole Blood 130 mg/dL (70-110)
[2024-03-14 09:42] LABS: HCT 27.3 % (39.0-53.0); HGB 8.4 gm/dL (13.0-17.5); Hypochromasia Moderate; MCH 29.8 pg (25.0-35.0); MCHC 30.7 g/dL (31.0-37.0); MCV 97.1 fL (80.0-100.0); Platelet Count 235 k/uL (150-450); RBC 2.81 m/uL (4.30-5.90); RDW 13.8 % (11.5-15.5); WBC 6.1 k/uL (3.8-10.6)
[2024-03-14 09:57] LABS: ALT 8 U/L (4-49); AST 18 U/L (17-59); African American GFR (CKD) 19 (>60 ml/min/1.73 sqM); Albumin 2.5 g/dL (3.5-5.0); Alkaline Phosphatase 92 U/L (38-126); Anion Gap 4 mmol/L; Blood Urea Nitrogen 24 mg/dL (9-20); Calcium 8.1 mg/dL (8.4-10.2); Carbon Dioxide 28 mmol/L (22-30); Chloride 104 mmol/L (98-107); Glucose 127 mg/dL (74-99); Non-African American GFR(CKD) 17 (>60 ml/min/1.73 sqM); Potassium 4.2 mmol/L (3.5-5.1); Sodium 136 mmol/L (137-145); Total Bilirubin 0.3 mg/dL (0.2-1.3); Total Protein 4.9 g/dL (6.3-8.2)
--- NOTE | 2024-03-14 10:08 | P.PN ---
Subjective Patient is seen in follow-up for chronic kidney disease. Hemodynamically stable. Hematuria noted. Family present at bedside. Vital signs are stable. General: No acute distress. Resting in bed. HEENT: Head exam is unremarkable. LUNGS: No audible rhonchi or wheezes. HEART: Rate and Rhythm are regular. ABDOMEN: No distention. EXTREMITITES: Trace edema. Objective - Vital Signs Vital signs: Vital Signs Temp 99.0 F 03/14/24 04:27 Pulse 67 03/14/24 04:27 Resp 16 03/14/24 04:27 BP 145/61 03/14/24 04:27 Pulse Ox 99 03/14/24 07:49 FiO2 Intake & Output 03/13/24 03/14/24 03/14/24 18:59 06:59 18:59 Output Total 350 500 Balance -350 -500 Weight 89.5 kg Output: Urine 350 500 Other: Voiding Method Indwelling Catheter Indwelling Catheter - Labs CBC & Chem 7: 03/14/24 08:20 03/14/24 08:20 Labs: Abnormal Lab Results - Last 24 Hours (Table) 03/13/24 03/13/24 03/14/24 Range/Units 16:17 20:33 06:07 RBC (4.30-5.90) m/uL Hgb (13.0-17.5) gm/dL Hct (39.0-53.0) % MCHC (31.0-37.0) g/dL Sodium (137-145) mmol/L BUN (9-20) mg/dL Creatinine (0.66-1.25) mg/dL Glucose (74-99) mg/dL POC Glucose (mg/dL) 124 H 145 H 130 H (70-110) mg/dL Calcium (8.4-10.2) mg/dL Total Protein (6.3-8.2) g/dL Albumin (3.5-5.0) g/dL 03/14/24 03/14/24 Range/Units 08:20 08:20 RBC 2.81 L (4.30-5.90) m/uL Hgb 8.4 L (13.0-17.5) gm/dL Hct 27.3 L (39.0-53.0) % MCHC 30.7 L (31.0-37.0) g/dL Sodium 136 L (137-145) mmol/L BUN 24 H (9-20) mg/dL Creatinine 3.37 H (0.66-1.25) mg/dL Glucose 127 H (74-99) mg/dL POC Glucose (mg/dL) (70-110) mg/dL Calcium 8.1 L (8.4-10.2) mg/dL Total Protein 4.9 L (6.3-8.2) g/dL Albumin 2.5 L (3.5-5.0) g/dL Assessment and Plan Plan: Assessment: 1. Chronic kidney disease stage V secondary to diabetic kidney disease. Mari ent underwent AV fistula surgery February 16, 2024 and is being followed by vascular surgery. Currently has permacath. Started on hemodialysis March 05, 2024. 2. Volume overload. Improved with ultrafiltration. 3. Diabetes mellitus. 4. Hypertensive emergency. Blood pressure now stable. 5. Metabolic acidosis secondary to chronic kidney disease improved postdialysis. 6. Acute on chronic diastolic CHF. 7. Gross hematuria secondary to enlarged prostate and anticoagulation. Urology following. Plan: Short hemodialysis today and another treatment tomorrow. He will be maintained on Thursday schedule for dialysis outpatient
[2024-03-14 12:04] LABS: Glucose,Whole Blood 150 mg/dL (70-110)
--- NOTE | 2024-03-14 13:01 | P.PN ---
Subjective Progress Note Date: 03/14/24 This is a 78-year-old, Niuean-speaking patient of Dr. Santana. Chronic stable medical conditions include hyperlipidemia, diabetes, obstructive sleep apnea, osteoarthritis, kidney stones, cognitive impairment-dementia. 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 Had a loop recorder seizures. Visit his and daughter. Not a good historian Patient follows with clinical business analyst Dr. Stevens. Patient was sent down to [place], where he underwent Endo fistula placement by -around February 16.. Developed mid left brachial aneurysm. Patient seen earlier today, accompanied by his and daughter Alannah Niño. For 2 days patient been having increasing shortness of breath. Decreased appetite. Normally has about 2-3 loose stools a day. Does wear depends. Patient himself is not a good historian. Denies any chest pain. Tired. Daughter really helps with being this For this Niuean-speaking gentleman/father. Slight edema. No fever no chills March 05: Laying in bed. is present. Patient did eat some. Blood pressure is better. Some improvement in shortness of breath. Currently no dialysis per nephrology. March 06: Laying in bed. Family at the bedside. Nephrology has decided to proceed with dialysis. Dr. Obrien this afternoon placed dialysis catheter. Appetite decreased. Blood pressure controlled. Patient confirmed-full code March 07: Patient had his first dialysis today. 1.5 L removed. Up in a chair. Eating better. at the bedside. March 08: Second hemodialysis today. Breathing a bit better. Did eat some diet. present. March 09: Did not sleep too well last night. Sleepy this morning. Oral intake variable. Due for next dialysis tomorrow. Ensure added. March 10: Decreased oral intake. Spoke to family members at the bedside. I personally fed the patient. Easily ate 3 teaspoons of food. Told him to be mor e persistent. There is a questionable UTI given that patient had a Hu catheter. Will give IV ceftriaxone. Spoke to director of social media marketing. Earliest chair time available is next Thursday. Note patient Accu-Chek dropped to 49 this morning. Will DC Levemir. March 11: Patient more awake today. Communicating much better. Sleep hygiene explained to the nurse. Improved patient circadian rhythm. Will add scheduled 4 units NovoLog with meals. Discharge patient over the weekend once chair time is confirmed and cleared by nephrology. 03/12. Patient seen and examined. Patient had a Hu placed yesterday, currently having hematuria. Patient also had swelling and tenderness of his penis 03/13. Patient seen and examined. Lab work done this morning showed W6.2, hemoglobin 8, platelet count 248, sodium 132, potassium 4.3. Still having hematuria, will hold Eliquis for now 03/14. Patient seen and examined. Hemoglobin this morning is 8.4. Patient is lethargic this morning. Getting dialysis today REVIEW OF SYSTEMS: CONSTITUTIONAL: No fever, no malaise,. CARDIOVASCULAR: No chest pain, no palpitations, no syncope. PULMONARY: No shortness of breath, no cough, GASTROINTESTINAL: No diarrhea, no nausea, no vomiting, no abdominal pain. NEUROLOGICAL: No headaches, no weakness, PHYSICAL EXAMINATION: GENERAL: The patient is alert , not in any acute distress. HEENT: Pupils are round and equally reacting to light. EOMI. No scleral icterus. No conjunctival pallor. Normocephalic, atraumatic. No pharyngeal erythema. No thyromegaly. CARDIOVASCULAR: S1 and S2 present. No murmurs, rubs, or gallops. PULMONARY: Chest is clear to auscultation, no wheezing or crackles. ABDOMEN: Soft, nontender, nondistended, normoactive bowel sounds. No palpable organomegaly. MUSCULOSKELETAL: No joint swelling or deformity. EXTREMITIES: No cyanosis, clubbing, or pedal edema. NEUROLOGICAL: Gross neurological examination did not reveal any focal deficits. SKIN: No rashes. 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 Neck 1.4 mm, following Endo vascular fistula creation by in the left arm. -Essential hypertension: -Worsening uremic symptoms. -Seizure disorder, -Acute UTI possibly from Hu could be contributing to patient's encephalopathy -Right paresis from previous stroke -Moderate cognitive impairment -Diabetes mellitus type 2, chronically on insulin. Uncontrolled with hyperglycemia -Depression otherwise specified Hyperlipidemia -Chronic kidney disease stage 4 from hypertensive nephrosclerosis and diabetic nephropathy progressing to end-stage renal disease -Chronic gait dysfunction uses a walker at home Monitor vital signs Monitor CBC Monitor CMP Continue telemetry monitoring Strict I's I's and O's, daily weights Continue dialysis Continue IV Rocephin Imdur 120 mg daily, Procardia 60 mg mg bid Coreg 12.5 twice daily Monitor blood sugar level, continue sliding scale insulin Keppra 500 mg twice a day Holding Eliquis because of hematuria Nephrology following Consulted urology for hematuria Labs and medication were reviewed.. Continue same treatment. Continue with symptomatic treatment. Resume home medication. Monitor labs and vitals. DVT and GI prophylaxis. Further recommendations as per clinical course of the patient Dictation was produced using [employer] dictation software. please excuse any grammatical, word or spelling errors. Objective - Vital Signs Vital signs: Vital Signs Temp 97.7 F 03/14/24 08:10 Pulse 67 03/14/24 08:10 Resp 17 03/14/24 08:10 BP 164/70 03/14/24 08:10 Pulse Ox 98 03/14/24 08:10 FiO2 Intake & Output 03/13/24 03/14/24 03/14/24 18:59 06:59 18:59 Output Total 350 500 Balance -350 -500 Weight 89.5 kg Output: Urine 350 500 Other: Voiding Method Indwelling Catheter Indwelling Catheter Indwelling Catheter - Labs CBC & Chem 7: 03/14/24 08:20 03/14/24 08:20 Labs: Abnormal Lab Results - Last 24 Hours (Table) 03/13/24 03/13/24 03/14/24 Range/Units 16:17 20:33 06:07 RBC (4.30-5.90) m/uL Hgb (13.0-17.5) gm/dL Hct (39.0-53.0) % MCHC (31.0-37.0) g/dL Sodium (137-145) mmol/L BUN (9-20) mg/dL Creatinine (0.66-1.25) mg/dL Glucose (74-99) mg/dL POC Glucose (mg/dL) 124 H 145 H 130 H (70-110) mg/dL Calcium (8.4-10.2) mg/dL Total Protein (6.3-8.2) g/dL Albumin (3.5-5.0) g/dL 03/14/24 03/14/24 Range/Units 08:20 08:20 RBC 2.81 L (4.30-5.90) m/uL Hgb 8.4 L (13.0-17.5) gm/dL Hct 27.3 L (39.0-53.0) % MCHC 30.7 L (31.0-37.0) g/dL Sodium 136 L (137-145) mmol/L BUN 24 H (9-20) mg/dL Creatinine 3.37 H (0.66-1.25) mg/dL Glucose 127 H (74-99) mg/dL POC Glucose (mg/dL) (70-110) mg/dL Calcium 8.1 L (8.4-10.2) mg/dL Total Protein 4.9 L (6.3-8.2) g/dL Albumin 2.5 L (3.5-5.0) g/dL
--- NOTE | 2024-03-14 15:27 | P.PN ---
Subjective Progress Note Date: 03/14/24 No acute overnight event, still having gross hematuria but urine is mainly consistent of old blood. No clots. Hemoglobin is stable at 8.4. Objective - Vital Signs Vital signs: Vital Signs Temp 97.7 F 03/14/24 08:10 Pulse 67 03/14/24 08:10 Resp 17 03/14/24 08:10 BP 164/70 03/14/24 08:10 Pulse Ox 98 03/14/24 08:10 FiO2 Intake & Output 03/13/24 03/14/24 03/14/24 18:59 06:59 18:59 Output Total 350 500 Balance -350 -500 Weight 89.5 kg Output: Urine 350 500 Other: Voiding Method Indwelling Catheter Indwelling Catheter Indwelling Catheter - Constitutional General appearance: Present: no acute distress - Gastrointestinal General gastrointestinal: Present: soft. Absent: distended, tenderness - Labs CBC & Chem 7: 03/14/24 08:20 03/14/24 08:20 Labs: Abnormal Lab Results - Last 24 Hours (Table) 03/13/24 03/13/24 03/14/24 Range/Units 16:17 20:33 06:07 RBC (4.30-5.90) m/uL Hgb (13.0-17.5) gm/dL Hct (39.0-53.0) % MCHC (31.0-37.0) g/dL Sodium (137-145) mmol/L BUN (9-20) mg/dL Creatinine (0.66-1.25) mg/dL Glucose (74-99) mg/dL POC Glucose (mg/dL) 124 H 145 H 130 H (70-110) mg/dL Calcium (8.4-10.2) mg/dL Total Protein (6.3-8.2) g/dL Albumin (3.5-5.0) g/dL 03/14/24 03/14/24 03/14/24 Range/Units 08:20 08:20 12:02 RBC 2.81 L (4.30-5.90) m/uL Hgb 8.4 L (13.0-17.5) gm/dL Hct 27.3 L (39.0-53.0) % MCHC 30.7 L (31.0-37.0) g/dL Sodium 136 L (137-145) mmol/L BUN 24 H (9-20) mg/dL Creatinine 3.37 H (0.66-1.25) mg/dL Glucose 127 H (74-99) mg/dL POC Glucose (mg/dL) 150 H (70-110) mg/dL Calcium 8.1 L (8.4-10.2) mg/dL Total Protein 4.9 L (6.3-8.2) g/dL Albumin 2.5 L (3.5-5.0) g/dL Assessment and Plan Assessment: 78-year-old history of gross hematuria, occurred following catheter insertion. Urine is mainly consistent of old blood right now. Hemoglobin is stable. Most likely hematuria secondary to trauma from catheterization. He did have a CT abdomen pelvis in November that showed evidence of prostatic enlargement, but no abnormality within the bladder or the kidney -Keep catheter in place, can irrigate as needed -will Reassess tomorrow
[2024-03-14 15:29] LABS: % Iron Saturation 13.37 (15.00-50.00)
[2024-03-14 16:57] LABS: Glucose,Whole Blood 125 mg/dL (70-110)
[2024-03-14 19:57] LABS: Glucose,Whole Blood 186 mg/dL (70-110)
[2024-03-15 05:58] LABS: Glucose,Whole Blood 220 mg/dL (70-110)
[2024-03-15] MEDS ORDERED: SODIUM FERRIC GLUCONAT-SUCROSE 125 MG in SODIUM CHLORIDE 0.9% 100 ML IVPB SCH (11:15)
--- NOTE | 2024-03-15 11:15 | P.PN ---
Subjective Patient is seen in follow-up for chronic kidney disease. Hemodynamically stable. Mentation improved. More awake and alert. Tolerating dialysis well. Vital signs are stable. General: No acute distress. Resting in bed. HEENT: Head exam is unremarkable. LUNGS: No audible rhonchi or wheezes. HEART: Rate and Rhythm are regular. ABDOMEN: No distention. EXTREMITITES: Trace edema. Objective - Vital Signs Vital signs: Vital Signs Temp 97.8 F 03/15/24 08:10 Pulse 65 03/15/24 08:10 Resp 17 03/15/24 08:10 BP 130/62 03/15/24 08:10 Pulse Ox 95 03/15/24 08:10 FiO2 Intake & Output 03/14/24 03/15/24 03/15/24 18:59 06:59 18:59 Intake Total 400 120 Output Total 2100 Balance -1700 120 Weight 95.3 kg Intake: Oral 0 120 Hemodialysis 400 Output: Urine 1200 Hemodialysis 900 Other: Voiding Method Indwelling Catheter Indwelling Catheter Indwelling Catheter - Labs CBC & Chem 7: 03/14/24 08:20 03/14/24 08:20 Labs: Abnormal Lab Results - Last 24 Hours (Table) 03/14/24 03/14/24 03/14/24 Range/Units 08:20 12:02 16:47 POC Glucose (mg/dL) 150 H 125 H (70-110) mg/dL Iron 27 L (65-175) UG/DL TIBC 202 L (228-460) UG/DL % Saturation 13.37 L (15.00-50.00) Transferrin 144.0 L (204.0-354.0) mg/dL 03/14/24 03/15/24 Range/Units 19:54 05:56 POC Glucose (mg/dL) 186 H 220 H (70-110) mg/dL Iron (65-175) UG/DL TIBC (228-460) UG/DL % Saturation (15.00-50.00) Transferrin (204.0-354.0) mg/dL Assessment and Plan Plan: Assessment: 1. Chronic kidney disease stage V secondary to diabetic kidney disease. Patient underwent AV fistula surgery February 16, 2024 and is being followed by vascular surgery. Currently has permacath. Started on hemodialysis March 05, 2024. 2. Volume overload. Improved with ultrafiltration. 3. Diabetes mellitus. 4. Hypertensive emergency. Blood pressure now stable. 5. Metabolic acidosis secondary to chronic kidney disease improved postdialysis. 6. Acute on chronic diastolic CHF. 7. Gross hematuria secondary to enlarged prostate and anticoagulation. Urology following. 8. Anemia of chronic kidney disease. Iron deficiency noted. Plan: Currently seen while undergoing hemodialysis. He will be maintained on Thursday schedule for dialysis outp atient. Add IV iron.
[2024-03-15 12:00] LABS: Glucose,Whole Blood 218 mg/dL (70-110)
--- NOTE | 2024-03-15 13:33 | P.PN ---
Subjective No acute overnight event, still having gross hematuria but urine is mainly consistent of old blood. No clots, hematuria improving compared to yesterday Objective - Vital Signs Vital signs: Vital Signs Temp 99.0 F 03/15/24 12:00 Pulse 61 03/15/24 12:00 Resp 17 03/15/24 12:00 BP 135/58 03/15/24 12:00 Pulse Ox 96 03/15/24 12:00 FiO2 Intake & Output 03/14/24 03/15/24 03/15/24 18:59 06:59 18:59 Intake Total 400 120 Output Total 2100 Balance -1700 120 Weight 95.3 kg Intake: Oral 0 120 Hemodialysis 400 Output: Urine 1200 Hemodialysis 900 Other: Voiding Method Indwelling Catheter Indwelling Catheter Indwelling Catheter - Constitutional General appearance: Present: no acute distress - Gastrointestinal General gastrointestinal: Present: soft. Absent: distended, tenderness - Labs CBC & Chem 7: 03/14/24 08:20 03/14/24 08:20 Labs: Abnormal Lab Results - Last 24 Hours (Table) 03/14/24 03/14/24 03/14/24 Range/Units 08:20 16:47 19:54 POC Glucose (mg/dL) 125 H 186 H (70-110) mg/dL Iron 27 L (65-175) UG/DL TIBC 202 L (228-460) UG/DL % Saturation 13.37 L (15.00-50.00) Transferrin 144.0 L (204.0-354.0) mg/dL 03/15/24 03/15/24 Range/Units 05:56 11:59 POC Glucose (mg/dL) 220 H 218 H (70-110) mg/dL Iron (65-175) UG/DL TIBC (228-460) UG/DL % Saturation (15.00-50.00) Transferrin (204.0-354.0) mg/dL Assessment and Plan Assessment: 78-year-old history of gross hematuria, occurred following catheter insertion. Urine is mainly consistent of old blood right now. Hemoglobin is stable. Most likely hematuria secondary to trauma from catheterization. He did have a CT abdomen pelvis in November that showed evidence of prostatic enlargement, but no abnormality within the bladder or the kidney -Keep catheter in place, can irrigate as needed -Patient can have a trial of void prior to discharge
--- NOTE | 2024-03-15 14:38 | P.PN ---
Subjective Progress Note Date: 03/15/24 This is a 78-year-old, Macanese-speaking patient of Dr. Santana. Chronic stable medical conditions include hyperlipidemia, diabetes, obstructive sleep apnea, osteoarthritis, kidney stones, cognitive impairment-dementia. 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 Had a loop recorder seizures. Visit his and daughter. Not a good historian Patient follows with field support representative Dr. Stevens. Patient was sent down to [place], where he underwent Endo fistula placement by -around February 16.. Developed mid left brachial aneurysm. Patient seen earlier today, accompanied by his and daughter Alannah Niño. For 2 days patient been having increasing shortness of breath. Decreased appetite. Normally has about 2-3 loose stools a day. Does wear depends. Patient himself is not a good historian. Denies any chest pain. Tired. Daughter really helps with being this For this Macanese-speaking gentleman/father. Slight edema. No fever no chills March 05: Laying in bed. is present. Patient did eat some. Blood pressure is better. Some improvement in shortness of breath. Currently no dialysis per nephrology. March 06: Laying in bed. Family at the bedside. Nephrology has decided to proceed with dialysis. Dr. Obrien this afternoon placed dialysis catheter. Appetite decreased. Blood pressure controlled. Patient confirmed-full code March 07: Patient had his first dialysis today. 1.5 L removed. Up in a chair. Eating better. at the bedside. March 08: Second hemodialysis today. Breathing a bit better. Did eat some diet. present. March 09: Did not sleep too well last night. Sleepy this morning. Oral intake variable. Due for next dialysis tomorrow. Ensure added. March 10: Decreased oral intake. Spoke to family members at the bedside. I personally fed the patient. Easily ate 3 teaspoons of food. Told him to be mor e persistent. There is a questionable UTI given that patient had a Hu catheter. Will give IV ceftriaxone. Spoke to psychiatric social worker. Earliest chair time available is next Thursday. Note patient Accu-Chek dropped to 49 this morning. Will DC Levemir. March 11: Patient more awake today. Communicating much better. Sleep hygiene explained to the nurse. Improved patient circadian rhythm. Will add scheduled 4 units NovoLog with meals. Discharge patient over the weekend once chair time is confirmed and cleared by nephrology. 03/12. Patient seen and examined. Patient had a Hu placed yesterday, currently having hematuria. Patient also had swelling and tenderness of his penis 03/13. Patient seen and examined. Lab work done this morning showed W6.2, hemoglobin 8, platelet count 248, sodium 132, potassium 4.3. Still having hematuria, will hold Eliquis for now 03/14. Patient seen and examined. Hemoglobin this morning is 8.4. Patient is lethargic this morning. Getting dialysis today 03/15. Patient seen and examined. Continues to have hematuria but mostly old blood clots. Patient is more alert compared to yesterday, REVIEW OF SYSTEMS: CONSTITUTIONAL: No fever, no malaise,. CARDIOVASCULAR: No chest pain, no palpitations, no syncope. PULMONARY: No shortness of breath, no cough, GASTROINTESTINAL: No diarrhea, no nausea, no vomiting, no abdominal pain. NEUROLOGICAL: No headaches, no weakness, PHYSICAL EXAMINATION: GENERAL: The patient is alert , not in any acute distress. HEENT: Pupils are round and equally reacting to light. EOMI. No scleral icterus. No conjunctival pallor. Normocephalic, atraumatic. No pharyngeal erythema. No thyromegaly. CARDIOVASCULAR: S1 and S2 present. No murmurs, rubs, or gallops. PULMONARY: Chest is clear to auscultation, no wheezing or crackles. ABDOMEN: Soft, nontender, nondistended, normoactive bowel sounds. No palpable organomegaly. MUSCULOSKELETAL: No joint swelling or deformity. EXTREMITIES: No cyanosis, clubbing, or pedal edema. NEUROLOGICAL: Gross neurological examination did not reveal any focal deficits. SKIN: No rashes. 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 Neck 1.4 mm, following Endo vascular fistula creation by in the left arm. -Essential hypertension: -Worsening uremic symptoms. -Seizure disorder, -Acute UTI possibly from Hu could be contributing to patient's encephalopathy -Right paresis from previous stroke -Moderate cognitive impairment -Diabetes mellitus type 2, chronically on insulin. Uncontrolled with hyperglycemia -Depression otherwise specified Hyperlipidemia -Chronic kidney disease stage 4 from hypertensive nephrosclerosis and diabetic nephropathy progressing to end-stage renal disease -Chronic gait dysfunction uses a walker at home Monitor vital signs Monitor CBC Monitor CMP Continue telemetry monitoring Strict I's I's and O's, daily weights Continue dialysis Continue IV Rocephin Imdur 120 mg daily, Procardia 60 mg mg bid Coreg 12.5 twice daily Monitor blood sugar level, continue sliding scale insulin Keppra 500 mg twice a day Holding Eliquis because of hematuria Nephrology following Urology evaluated patient, recommended no cystoscopy at this time, Labs and medication were reviewed.. Continue same treatment. Continue with symptomatic treatment. Resume home medication. Monitor labs and vitals. DVT and GI prophylaxis. Further recommendations as per clinical course of the patient Dictation was produced using [employer] dictation software. please excuse any grammatical, word or spelling errors. Objective - Vital Signs Vital signs: Vital Signs Temp 99.0 F 03/14/24 20:00 Pulse 68 03/15/24 04:00 Resp 16 03/15/24 04:00 BP 138/63 03/15/24 04:00 Pulse Ox 92 L 03/15/24 04:00 FiO2 Intake & Output 03/14/24 03/15/24 03/15/24 18:59 06:59 18:59 Intake Total 400 120 Output Total 2100 Balance -1700 120 Weight 95.3 kg Intake: Oral 0 120 Hemodialysis 400 Output: Urine 1200 Hemodialysis 900 Other: Voiding Method Indwelling Catheter Indwelling Catheter - Labs CBC & Chem 7: 03/14/24 08:20 03/14/24 08:20 Labs: Abnormal Lab Results - Last 24 Hours (Table) 03/14/24 03/14/24 03/14/24 Range/Units 08:20 08:20 12:02 Sodium 136 L (137-145) mmol/L BUN 24 H (9-20) mg/dL Creatinine 3.37 H (0.66-1.25) mg/dL Glucose 127 H (74-99) mg/dL POC Glucose (mg/dL) 150 H (70-110) mg/dL Calcium 8.1 L (8.4-10.2) mg/dL Iron 27 L (65-175) UG/DL TIBC 202 L (228-460) UG/DL % Saturation 13.37 L (15.00-50.00) Transferrin 144.0 L (204.0-354.0) mg/dL Total Protein 4.9 L (6.3-8.2) g/dL Albumin 2.5 L (3.5-5.0) g/dL 03/14/24 03/14/24 03/15/24 Range/Units 16:47 19:54 05:56 Sodium (137-145) mmol/L BUN (9-20) mg/dL Creatinine (0.66-1.25) mg/dL Glucose (74-99) mg/dL POC Glucose (mg/dL) 125 H 186 H 220 H (70-110) mg/dL Calcium (8.4-10.2) mg/dL Iron (65-175) UG/DL TIBC (228-460) UG/DL % Saturation (15.00-50.00) Transferrin (204.0-354.0) mg/dL Total Protein (6.3-8.2) g/dL Albumin (3.5-5.0) g/dL
[2024-03-15 16:32] LABS: Glucose,Whole Blood 349 mg/dL (70-110)
[2024-03-15] MEDS: SODIUM FERRIC GLUCONAT-SUCROSE 125 MG in SODIUM CHLORIDE 0.9% 100 ML IVPB SCH (17:11)
[2024-03-15 20:12] LABS: Glucose,Whole Blood 305 mg/dL (70-110)
[2024-03-16 00:33] LABS: Glucose,Whole Blood 165 mg/dL (70-110)
[2024-03-16 06:11] LABS: Glucose,Whole Blood 247 mg/dL (70-110)
[2024-03-16 11:29] LABS: Basophils % (A) 1 %; Eosinophils # (A) 0.2 k/uL (0-0.7); Eosinophils % (A) 3 %; HGB 8.1 gm/dL (13.0-17.5); Lymphocytes % (A) 19 %; MCH 30.1 pg (25.0-35.0); MCHC 32.4 g/dL (31.0-37.0); MCV 92.9 fL (80.0-100.0); Mean Platelet Volume 9.4; Monocytes # (A) 0.6 k/uL (0-1.0); Monocytes % (A) 11 %; Neutrophils # (A) 3.5 k/uL (1.3-7.7); Neutrophils % (A) 66 %; Platelet Count 237 k/uL (150-450); RBC 2.69 m/uL (4.30-5.90); RDW 13.5 % (11.5-15.5); WBC 5.3 k/uL (3.8-10.6)
--- NOTE | 2024-03-16 11:29 | P.PN ---
Subjective Patient is seen in follow-up for chronic kidney disease. Hemodynamically stable. Mentation improved. No problems with dialysis yesterday. Family present at bedside. Vital signs are stable. General: No acute distress. Resting in bed. HEENT: Head exam is unremarkable. LUNGS: No audible rhonchi or wheezes. HEART: Rate and Rhythm are regular. ABDOMEN: No distention. EXTREMITITES: Trace edema. Objective - Vital Signs Vital signs: Vital Signs Temp 98.3 F 03/16/24 09:09 Pulse 65 03/16/24 11:25 Resp 15 03/16/24 11:25 BP 138/57 03/16/24 11:25 Pulse Ox 98 03/16/24 11:25 FiO2 Intake & Output 03/15/24 03/16/24 03/16/24 18:59 06:59 18:59 Intake Total 620 720 Output Total 1500 250 350 Balance -880 -250 370 Weight 86.5 kg Intake: Oral 120 720 Hemodialysis 500 Output: Urine 250 350 Hemodialysis 1500 Other: Voiding Method Indwelling Catheter Indwelling Catheter Indwelling Catheter - Labs CBC & Chem 7: 03/14/24 08:20 03/14/24 08:20 Labs: Abnormal Lab Results - Last 24 Hours (Table) 03/15/24 03/15/24 03/15/24 Range/Units 11:59 16:29 20:10 POC Glucose (mg/dL) 218 H 349 H 305 H (70-110) mg/dL 03/16/24 03/16/24 Range/Units 00:31 06:09 POC Glucose (mg/dL) 165 H 247 H (70-110) mg/dL Assessment and Plan Plan: Assessment: 1. Chronic kidney disease stage V secondary to diabetic kidney disease. Patient underwent AV fistula surgery February 16, 2024 and is being followed by vascular surgery. Currently has permacath. Started on hemodialysis March 05, 2024. 2. Volume overload. Improved with ultrafiltration. 3. Diabetes mellitus. 4. Hypertensive emergency. Blood pressure now stable. 5. Metabolic acidosis secondary to chronic kidney disease improved postdialysis. 6. Acute on chronic diastolic CHF. 7. Gross hematuria secondary to enlarged prostate and anticoagulation. Urology following. 8. Anemia of chronic kidney disease. Iron deficiency noted. Plan: Hemodialysis tomorrow. He will be maintained on Thursday schedule for dialysis outpatient. Maintain IV iron. Anticipate discharge soon.
[2024-03-16 11:33] LABS: Glucose,Whole Blood 246 mg/dL (70-110)
[2024-03-16 11:42] LABS: ALT 9 U/L (4-49); AST 19 U/L (17-59); African American GFR (CKD) 27 (>60 ml/min/1.73 sqM); Albumin 2.4 g/dL (3.5-5.0); Alkaline Phosphatase 108 U/L (38-126); Anion Gap 3 mmol/L; Blood Urea Nitrogen 17 mg/dL (9-20); Calcium 7.7 mg/dL (8.4-10.2); Carbon Dioxide 31 mmol/L (22-30); Chloride 97 mmol/L (98-107); Glucose 225 mg/dL (74-99); Non-African American GFR(CKD) 23 (>60 ml/min/1.73 sqM); Potassium 3.6 mmol/L (3.5-5.1); Sodium 131 mmol/L (137-145); Total Bilirubin 0.2 mg/dL (0.2-1.3); Total Protein 4.7 g/dL (6.3-8.2)
[2024-03-16 12:32] LABS: Glucose,Whole Blood 295 mg/dL (70-110)
[2024-03-16] MEDS: SODIUM CHLORIDE 0.9% 500 ML 500 ML IV ONE (12:44)
[2024-03-16] MEDS: MIDODRINE 5 MG TAB PO SCH (12:47)
--- NOTE | 2024-03-16 12:52 | P.PN ---
Subjective Progress Note Date: 03/16/24 This is a 78-year-old, Filipino-speaking patient of Dr. Santana. Chronic stable medical conditions include hyperlipidemia, diabetes, obstructive sleep apnea, osteoarthritis, kidney stones, cognitive impairment-dementia. 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 Had a loop recorder seizures. Visit his and daughter. Not a good historian Patient follows with system trainer Dr. Stevens. Patient was sent down to [place], where he underwent Endo fistula placement by -around February 16.. Developed mid left brachial aneurysm. Patient seen earlier today, accompanied by his and daughter Alannah Niño. For 2 days patient been having increasing shortness of breath. Decreased appetite. Normally has about 2-3 loose stools a day. Does wear depends. Patient himself is not a good historian. Denies any chest pain. Tired. Daughter really helps with being this For this Filipino-speaking gentleman/father. Slight edema. No fever no chills March 05: Laying in bed. is present. Patient did eat some. Blood pressure is better. Some improvement in shortness of breath. Currently no dialysis per nephrology. March 06: Laying in bed. Family at the bedside. Nephrology has decided to proceed with dialysis. Dr. Obrien this afternoon placed dialysis catheter. Appetite decreased. Blood pressure controlled. Patient confirmed-full code March 07: Patient had his first dialysis today. 1.5 L removed. Up in a chair. Eating better. at the bedside. March 08: Second hemodialysis today. Breathing a bit better. Did eat some diet. present. March 09: Did not sleep too well last night. Sleepy this morning. Oral intake variable. Due for next dialysis tomorrow. Ensure added. March 10: Decreased oral intake. Spoke to family members at the bedside. I personally fed the patient. Easily ate 3 teaspoons of food. Told him to be mor e persistent. There is a questionable UTI given that patient had a Hu catheter. Will give IV ceftriaxone. Spoke to social service liaison. Earliest chair time available is next Thursday. Note patient Accu-Chek dropped to 49 this morning. Will DC Levemir. March 11: Patient more awake today. Communicating much better. Sleep hygiene explained to the nurse. Improved patient circadian rhythm. Will add scheduled 4 units NovoLog with meals. Discharge patient over the weekend once chair time is confirmed and cleared by nephrology. 03/12. Patient seen and examined. Patient had a Hu placed yesterday, currently having hematuria. Patient also had swelling and tenderness of his penis 03/13. Patient seen and examined. Lab work done this morning showed W6.2, hemoglobin 8, platelet count 248, sodium 132, potassium 4.3. Still having hematuria, will hold Eliquis for now 03/14. Patient seen and examined. Hemoglobin this morning is 8.4. Patient is lethargic this morning. Getting dialysis today 03/15. Patient seen and examined. Continues to have hematuria but mostly old blood clots. Patient is more alert compared to yesterday, 03/16. Patient seen and examined patient is more alert and answering questions. Blood pressure on the lower side, started on midodrine. Hematuria improved REVIEW OF SYSTEMS: CONSTITUTIONAL: No fever, no malaise,. CARDIOVASCULAR: No chest pain, no palpitations, no syncope. PULMONARY: No shortness of breath, no cough, GASTROINTESTINAL: No diarrhea, no nausea, no vomiting, no abdominal pain. NEUROLOGICAL: No headaches, no weakness, PHYSICAL EXAMINATION: GENERAL: The patient is alert , not in any acute distress. HEENT: Pupils are round and equally reacting to light. EOMI. No scleral icterus. No conjunctival pallor. Normocephalic, atraumatic. No pharyngeal erythema. No thyromegaly. CARDIOVASCULAR: S1 and S2 present. No murmurs, rubs, or gallops. PULMONARY: Chest is clear to auscultation, no wheezing or crackles. ABDOMEN: Soft, nontender, nondistended, normoactive bowel sounds. No palpable organomegaly. MUSCULOSKELETAL: No joint swelling or deformity. EXTREMITIES: No cyanosis, clubbing, or pedal edema. NEUROLOGICAL: Gross neurological examination did not reveal any focal deficits. SKIN: No rashes. 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 Neck 1.4 mm, following Endo vascular fistula creation by in the left arm. -Essential hypertension: -Worsening uremic symptoms. -Seizure disorder, -Acute UTI possibly from Hu could be contributing to patient's encephalopathy -Right paresis from previous stroke -Moderate cognitive impairment -Diabetes mellitus type 2, chronically on insulin. Uncontrolled with hyperglycemia -Depression otherwise specified Hyperlipidemia -Chronic kidney disease stage 4 from hypertensive nephrosclerosis and diabetic nephropathy progressing to end-stage renal disease -Chronic gait dysfunction uses a walker at home Monitor vital signs Monitor CBC Monitor CMP Continue telemetry monitoring Strict I's I's and O's, daily weights Continue dialysis Continue IV Rocephin Imdur 120 mg daily, Procardia 60 mg mg bid Coreg 12.5 twice daily Started midodrine Monitor blood sugar level, continue sliding scale insulin Keppra 500 mg twice a day Resume Eliquis Nephrology following Urology evaluated patient, recommended no cystoscopy at this time, Labs and medication were reviewed.. Continue same treatment. Continue with symptomatic treatment. Resume home medication. Monitor labs and vitals. DVT and GI prophylaxis. Further recommendations as per clinical course of the patient Dictation was produced using [employer] dictation software. please excuse any grammatical, word or spelling errors. Objective - Vital Signs Vital signs: Vital Signs Temp 98.3 F 03/16/24 09:09 Pulse 64 03/16/24 09:09 Resp 17 03/16/24 09:09 BP 119/49 03/16/24 09:09 Pulse Ox 99 03/16/24 09:09 FiO2 Intake & Output 03/15/24 03/16/24 03/16/24 18:59 06:59 18:59 Intake Total 620 720 Output Total 1500 250 350 Balance -880 -250 370 Weight 86.5 kg Intake: Oral 120 720 Hemodialysis 500 Output: Urine 250 350 Hemodialysis 1500 Other: Voiding Method Indwelling Catheter Indwelling Catheter Indwelling Catheter - Labs CBC & Chem 7: 03/16/24 10:15 03/16/24 10:15 Labs: Abnormal Lab Results - Last 24 Hours (Table) 03/15/24 03/15/24 03/15/24 Range/Units 11:59 16:29 20:10 POC Glucose (mg/dL) 218 H 349 H 305 H (70-110) mg/dL 03/16/24 03/16/24 Range/Units 00:31 06:09 POC Glucose (mg/dL) 165 H 247 H (70-110) mg/dL
[2024-03-16 16:41] LABS: Glucose,Whole Blood 227 mg/dL (70-110)
--- NOTE | 2024-03-16 20:19 | P.PN ---
Subjective No acute overnight event, hematuria improving, urine is blood tinged Objective - Vital Signs Vital signs: Vital Signs Temp 98.3 F 03/16/24 09:09 Pulse 67 03/16/24 16:00 Resp 15 03/16/24 11:25 BP 120/77 03/16/24 16:00 Pulse Ox 96 03/16/24 12:32 FiO2 Intake & Output 03/16/24 03/16/24 03/17/24 06:59 18:59 06:59 Intake Total 720 Output Total 250 550 Balance -250 170 Weight 86.5 kg Intake: Oral 720 Output: Urine 250 550 Other: Voiding Method Indwelling Catheter Indwelling Catheter Indwelling Catheter - Labs CBC & Chem 7: 03/16/24 10:15 03/16/24 10:15 Labs: Abnormal Lab Results - Last 24 Hours (Table) 03/16/24 03/16/24 03/16/24 Range/Units 00:31 06:09 10:15 RBC 2.69 L (4.30-5.90) m/uL Hgb 8.1 L (13.0-17.5) gm/dL Hct 25.0 L (39.0-53.0) % Sodium (137-145) mmol/L Chloride (98-107) mmol/L Carbon Dioxide (22-30) mmol/L Creatinine (0.66-1.25) mg/dL Glucose (74-99) mg/dL POC Glucose (mg/dL) 165 H 247 H (70-110) mg/dL Calcium (8.4-10.2) mg/dL Total Protein (6.3-8.2) g/dL Albumin (3.5-5.0) g/dL 03/16/24 03/16/24 03/16/24 Range/Units 10:15 11:30 12:30 RBC (4.30-5.90) m/uL Hgb (13.0-17.5) gm/dL Hct (39.0-53.0) % Sodium 131 L (137-145) mmol/L Chloride 97 L (98-107) mmol/L Carbon Dioxide 31 H (22-30) mmol/L Creatinine 2.58 H (0.66-1.25) mg/dL Glucose 225 H (74-99) mg/dL POC Glucose (mg/dL) 246 H 295 H (70-110) mg/dL Calcium 7.7 L (8.4-10.2) mg/dL Total Protein 4.7 L (6.3-8.2) g/dL Albumin 2.4 L (3.5-5.0) g/dL 03/16/24 Range/Units 16:40 RBC (4.30-5.90) m/uL Hgb (13.0-17.5) gm/dL Hct (39.0-53.0) % Sodium (137-145) mmol/L Chloride (98-107) mmol/L Carbon Dioxide (22-30) mmol/L Creatinine (0.66-1.25) mg/dL Glucose (74-99) mg/dL POC Glucose (mg/dL) 227 H (70-110) mg/dL Calcium (8.4-10.2) mg/dL Total Protein (6.3-8.2) g/dL Albumin (3.5-5.0) g/dL Assessment and Plan Assessment: 78-year-old history of gross hematuria, occurred following catheter insertion. Urine is mainly consistent of old blood right now. Hemoglobin is stable. Most likely hematuria secondary to trauma from catheterization. He did have a CT abdomen pelvis in November that showed evidence of prostatic enlargement, but no abnormality within the bladder or the kidney -Patient can have a trial of void prior to discharge
[2024-03-16 20:36] LABS: Glucose,Whole Blood 280 mg/dL (70-110)
[2024-03-16] MEDS: APIXABAN 2.5 MG TABLET PO SCH (22:22)
[2024-03-17] MEDS: HALOPERIDOL LACTATE 5 MG/ML 1 ML VIAL IM STA (02:47)
[2024-03-17 06:17] LABS: Glucose,Whole Blood 231 mg/dL (70-110)
[2024-03-17 10:48] LABS: ALT 9 U/L (10-49); AST 16 U/L (14-35); Albumin 3.1 g/dL (3.8-4.9); Albumin/Globulin Ratio 1.48 Ratio (1.60-3.17); Alkaline Phosphatase 107 U/L (41-126); BUN/Creat Ratio 5.72 Ratio (12.00-20.00); Blood Urea Nitrogen 20.6 mg/dL (9.0-27.0); Calcium 7.9 mg/dL (8.7-10.3); Carbon Dioxide 25.5 mmol/L (21.6-31.8); Chloride 97 mmol/L (96-109); Globulin 2.1 g/dL (1.6-3.3); Glucose 237 mg/dL (70-110); Potassium 3.9 mmol/L (3.5-5.5); Sodium 136 mmol/L (135-145); Total Bilirubin <0.2 mg/dL (0.3-1.2); Total Protein 5.2 g/dL (6.2-8.2)
[2024-03-17 10:52] LABS: HCT 24.5 % (39.6-50.0); MCH 30.1 pg (27.0-32.0); MCHC 32.7 g/dL (32.0-37.0); MCV 92.1 FL (80.0-97.0); Mean Platelet Volume 11.3 FL (9.5-12.2); NRBC Per 100 WBC 0 X 10*3/uL (0.00-0.01); Platelet Count 268 X 10*3/uL (140-440); RBC 2.66 X 10*6/uL (4.40-5.60); RDW 13.2 % (11.5-14.5); WBC 9.43 X 10*3/uL (4.50-10.00)
--- NOTE | 2024-03-17 11:00 | P.PN ---
Subjective Patient is seen in follow-up for chronic kidney disease. Hemodynamically stable. Resting in bed. Scheduled for dialysis today. Family present at bedside. Vital signs are stable. General: No acute distress. Resting in bed. HEENT: Head exam is unremarkable. LUNGS: No audible rhonchi or wheezes. HEART: Rate and Rhythm are regular. ABDOMEN: No distention. EXTREMITITES: Trace edema. Objective - Vital Signs Vital signs: Vital Signs Temp 98.4 F 03/17/24 06:56 Pulse 72 03/17/24 06:56 Resp 17 03/17/24 06:56 BP 128/71 03/17/24 06:56 Pulse Ox 96 03/17/24 06:56 FiO2 Intake & Output 03/16/24 03/17/24 03/17/24 18:59 06:59 18:59 Intake Total 720 Output Total 550 200 Balance 170 -200 Intake: Oral 720 Output: Urine 550 200 Other: Voiding Method Indwelling Catheter Indwelling Catheter # Bowel Movements 1 - Labs CBC & Chem 7: 03/17/24 06:45 03/17/24 06:45 Labs: Abnormal Lab Results - Last 24 Hours (Table) 03/16/24 03/16/24 03/16/24 Range/Units 10:15 10:15 11:30 RBC 2.69 L (4.30-5.90) m/uL Hgb 8.1 L (13.0-17.5) gm/dL Hct 25.0 L (39.0-53.0) % Sodium 131 L (137-145) mmol/L Chloride 97 L (98-107) mmol/L Carbon Dioxide 31 H (22-30) mmol/L Anion Gap (4.00-12.00) mmol/L Creatinine 2.58 H (0.66-1.25) mg/dL Est GFR (CKD-EPI) (>=60) BUN/Creatinine Ratio (12.00-20.00) Ratio Glucose 225 H (74-99) mg/dL POC Glucose (mg/dL) 246 H (70-110) mg/dL Calcium 7.7 L (8.4-10.2) mg/dL Total Bilirubin (0.3-1.2) mg/dL ALT (10-49) U/L Total Protein 4.7 L (6.3-8.2) g/dL Albumin 2.4 L (3.5-5.0) g/dL Albumin/Globulin Ratio (1.60-3.17) Ratio 03/16/24 03/16/24 03/16/24 Range/Units 12:30 16:40 20:34 RBC (4.30-5.90) m/uL Hgb (13.0-17.5) gm/dL Hct (39.0-53.0) % Sodium (137-145) mmol/L Chloride (98-107) mmol/L Carbon Dioxide (22-30) mmol/L Anion Gap (4.00-12.00) mmol/L Creatinine (0.66-1.25) mg/dL Est GFR (CKD-EPI) (>=60) BUN/Creatinine Ratio (12.00-20.00) Ratio Glucose (74-99) mg/dL POC Glucose (mg/dL) 295 H 227 H 280 H (70-110) mg/dL Calcium (8.4-10.2) mg/dL Total Bilirubin (0.3-1.2) mg/dL ALT (10-49) U/L Total Protein (6.3-8.2) g/dL Albumin (3.5-5.0) g/dL Albumin/Globulin Ratio (1.60-3.17) Ratio 03/17/24 03/17/24 03/17/24 Range/Units 06:14 06:45 06:45 RBC 2.66 L (4.30-5.90) m/uL Hgb 8.0 L (13.0-17.5) gm/dL Hct 24.5 L (39.0-53.0) % Sodium (137-145) mmol/L Chloride (98-107) mmol/L Carbon Dioxide (22-30) mmol/L Anion Gap 13.50 H (4.00-12.00) mmol/L Creatinine 3.6 H (0.66-1.25) mg/dL Est GFR (CKD-EPI) 17 L (>=60) BUN/Creatinine Ratio 5.72 L (12.00-20.00) Ratio Glucose 237 H (74-99) mg/dL POC Glucose (mg/dL) 231 H (70-110) mg/dL Calcium 7.9 L (8.4-10.2) mg/dL Total Bilirubin <0.2 L (0.3-1.2) mg/dL ALT 9 L (10-49) U/L Total Protein 5.2 L (6.3-8.2) g/dL Albumin 3.1 L (3.5-5.0) g/dL Albumin/Globulin Ratio 1.48 L (1.60-3.17) Ratio Assessment and Plan Plan: Assessment: 1. Chronic kidney disease stage V secondary to diabetic kidney disease. Patient underwent AV fistula surgery February 16, 2024 and is being followed by vascular surgery. Currently has permacath. Started on hemodialysis March 05, 2024. 2. Volume overload. Improved with ultrafiltration. 3. Diabetes mellitus. 4. Hypertensive emergency. Blood pressure now stable. 5. Metabolic acidosis secondary to chronic kidney disease improved postdialysis. 6. Acute on chronic diastolic CHF. 7. Gross hematuria secondary to enlarged prostate and anticoagulation. Urology following. 8. Anemia of chronic kidney disease. Iron deficiency noted. Plan: Hemodialysis today. He will be maintained on Thursday schedule for dialysis outpatient. Maintain IV iron. Anticipate discharge soon.
[2024-03-17 11:37] LABS: Glucose,Whole Blood 251 mg/dL (70-110)
--- NOTE | 2024-03-17 13:38 | CT ---
EXAMINATION TYPE: CT brain wo con DATE OF EXAM: 03/17/2024 COMPARISON: 02/08/2024 INDICATION: Facial droop per family DLP: 1139.4 mGycm, Automated exposure control for dose reduction was used. CONTRAST: None CT of the brain is performed utilizing 3 mm thick sections through the posterior fossa and 3 mm thick sections through the remaining calvarium. Study is performed within 24 hours of arrival to the hosp [facility]. No abnormal hyperdensity is present to suggest an acute intracranial hemorrhage. No mass lesion is evident. No acute infarcts are evident. Old left watershed infarct is present. There is hypodensity in the pos terior right parietal-occipital white matter, present previously and appears stable. No new change is evident. Ventricles and sulci are prominent for the patient age. Paranasal sinuses and mastoid air cells within the [id number] are clear. IMPRESSION: 1. Old parietal-occipital watershed infarct larger on the left. 2. Old parietal-occipital subcortical infarct. 3. No acute intracranial process evident. Follow-up MRI can be performed as clinically indicated.
[2024-03-17 16:34] LABS: Glucose,Whole Blood 124 mg/dL (70-110)
--- NOTE | 2024-03-17 17:06 | P.PN ---
Progress Note - Text Progress Note Date: 03/17/24 Chief Complaint: Short of breath This is a 78-year-old, Algerian-speaking patient of Dr. Santana. Chronic stable medical conditions include hyperlipidemia, diabetes, obstructive sleep apnea, osteoarthritis, kidney stones, cognitive impairment-dementia. 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 Had a loop recorder seizures. Visit his and daughter. Not a good historian Patient follows with general labor Dr. Stevens. Patient was sent down to [place], where he underwent Endo fistula placement by -around February 16.. Developed mid left brachial aneurysm. Patient seen earlier today, accompanied by his and daughter Alannah Niño. For 2 days patient been having increasing shortness of breath. Decreased appetite. Normally has about 2-3 loose stools a day. Does wear depends. Patient himself is not a good historian. Denies any chest pain. Tired. Daughter really helps with being this For this Algerian-speaking gentleman/father. Slight edema. No fever no chills March 05: Laying in bed. is present. Patient did eat some. Blood pressure is better. Some improvement in shortness of breath. Currently no dialysis per nephrology. March 06: Laying in bed. Family at the bedside. Nephrology has decided to proceed with dialysis. Dr. Obrien this afternoon placed dialysis catheter. Appetite decreased. Blood pressure controlled. Patient confirmed-full code March 07: Patient had his first dialysis today. 1.5 L removed. Up in a chair. Eating better. at the bedside. March 08: Second hemodialysis today. Breathing a bit better. Did eat some diet. present. March 09: Did not sleep too well last night. Sleepy this morning. Oral intake variable. Due for next dialysis tomorrow. Ensure added. March 10: Decreased oral intake. Spoke to family members at the bedside. I personally fed the patient. Easily ate 3 teaspoons of food. Told him to be more persistent. There is a questionable UTI given that patient had a Hu catheter. Will give IV ceftriaxone. Spoke to social work faculty member. Earliest chair time available is next Thursday. Note patient Accu-Chek dropped to 49 this morning. Will DC Levemir. March 11: Patient more awake today. Communicating much better. Sleep hygiene explained to the nurse. Improved patient circadian rhythm. Will add scheduled 4 units NovoLog with meals. Discharge patient over the weekend once chair time is confirmed and cleared by nephrology. 03/12. Patient seen and examined. Patient had a Hu placed yesterday, currently having hematuria. Patient also had swelling and tenderness of his penis 03/13. Patient seen and examined. Lab work done this morning showed W6.2, hemoglobin 8, platelet count 248, sodium 132, potassium 4.3. Still having hematuria, will hold Eliquis for now 03/14. Patient seen and examined. Hemoglobin this morning is 8.4. Patient is lethargic this morning. Getting dialysis today 03/15. Patient seen and examined. Continues to have hematuria but mostly old blood clots. Patient is more alert compared to yesterday, 03/16. Patient seen and examined patient is more alert and answering questions. Blood pressure on the lower side, started on midodrine. Hematuria improved March 17: Spoke to the nurse. Patient have to leave after dialysis on Thursday. As outpatient dialysis will not be started on the weekend. Later the nurse called me that family had noticed some drooping of the face. Stat CT scan was ordered including neurology consult. No evidence of new stroke. Old stroke was seen. Oral intake fluctuating. Plan is for patient to go home Active Medications Acetaminophen (Acetaminophen Tab 325 Mg Tab) 650 mg PO Q6HR PRN PRN Reason: Mild Pain or Fever > 100.5 Last Admin: 03/17/24 04:06 Dose: 650 mg Apixaban (Apixaban 2.5 Mg Tablet) 2.5 mg PO BID [facility]; Protocol Last Admin: 03/17/24 08:18 Dose: 2.5 mg Aspirin (Aspirin 81 Mg) 81 mg PO DAILY [facility] Last Admin: 03/17/24 08:18 Dose: 81 mg Atorvastatin Calcium (Atorvastatin 20 Mg Tab) 20 mg PO HS [facility] Last Admin: 03/16/24 22:22 Dose: 20 mg Calcium Carbonate/Glycine (Calcium Carbonate 500 Mg Chewable) 1,000 mg PO Q4HR PRN PRN Reason: Dyspepsia Carvedilol (Carvedilol 12.5 Mg Tab) 12.5 mg PO BID-W/MEALS [facility] Last Admin: 03/17/24 08:09 Dose: Not Given Dextrose/Water (Dextrose 50% Syringe 50 Ml) 25 ml IVP PER PROTOCOL PRN; Protocol PRN Reason: Hypoglycemia Last Admin: 03/10/24 06:17 Dose: 25 ml Dextrose/Water (Dextrose 50% Syringe 50 Ml) 50 ml IVP PER PROTOCOL PRN; Protocol PRN Reason: Hypoglycemia Duloxetine HCl (Duloxetine Hcl 30 Mg Capsule.Dr) 30 mg PO HS [facility] Last Admin: 03/16/24 22:23 Dose: 30 mg Ergocalciferol (Ergocalciferol 1,250 Mcg (50,000 Iu) Capsule) 1,250 mcg PO MO [facility] Last Admin: 03/14/24 16:07 Dose: Not Given Ceftriaxone Sodium 1 gm/ (Sodium Chloride) 50 mls @ 100 mls/hr IVPB Q24HR [facility]; Protocol Last Admin: 03/17/24 08:18 Dose: 100 mls/hr Ferric Sodium Gluconate 125 mg (/ Sodium Chloride) 110 mls @ 100 mls/hr IVPB DAILY [facility] Last Admin: 03/17/24 09:01 Dose: 100 mls/hr Insulin Aspart (Insulin Aspart (Novolog) 100 Unit/Ml Vial) 0 unit SQ ACHS [facility]; Protocol Last Admin: 03/17/24 16:57 Dose: Not Given Insulin Aspart (Insulin Aspart (Novolog) 100 Unit/Ml Vial) 4 unit SQ AC-TID [facility] Last Admin: 03/17/24 12:26 Dose: 4 unit Isosorbide Mononitrate (Isosorbide Mononitrate Er 60 Mg Tab.Er.24h) 120 mg PO DAILY [facility] Last Admin: 03/17/24 08:18 Dose: 120 mg Lactulose (Lactulose 20 Gm/30 Ml Cup) 20 gm PO DAILY PRN PRN Reason: Constipation Levetiracetam (Levetiracetam 500 Mg Tab) 500 mg PO BID [facility] Last Admin: 03/17/24 08:18 Dose: 500 mg Lorazepam (Lorazepam 0.5 Mg Tab) 0.5 mg PO Q6HR PRN PRN Reason: Anxiety Last Admin: 03/16/24 23:27 Dose: 0.5 mg Midodrine (Midodrine 5 Mg Tab) 10 mg PO AC-TID [facility] Last Admin: 03/17/24 12:26 Dose: 10 mg Naloxone HCl (Naloxone 0.4 Mg/Ml 1 Ml Vial) 0.2 mg IV Q2M PRN PRN Reason: Opioid Reversal Nifedipine (Nifedipine Xl 60 Mg Tab.Er.24) 60 mg PO BID [facility] Last Admin: 03/17/24 08:09 Dose: Not Given Ondansetron HCl (Ondansetron 4 Mg/2 Ml Vial) 4 mg IVP Q8HR PRN PRN Reason: Nausea And Vomiting Last Admin: 03/06/24 10:42 Dose: 4 mg Tramadol HCl (Tramadol 50 Mg Tab) 25 mg PO Q8HR PRN PRN Reason: Mild to Moderate Pain (1 - 6) Last Admin: 03/17/24 06:13 Dose: 25 mg Past medical history to include: Diabetes, hyperlipidemia, hypertension, obstructive sleep apnea, osteoarthritis, kidney stones, cognitive impairment, stroke hypertension with right-sided weakness, depression, seizure Social history: No history of smoking or alcohol. Lives with his and daughter. Does use a walker. Daughter is the POA Physical examination: VITAL SIGNS: 98.4, 72, 17, 128 x 71, 96% on 2 L GENERAL: Tired awake EYES: Pupils equal. Conjunctiva normal. HEENT: External appearance of nose and ears normal, oral cavity grossly normal. NECK: JVD not raised; masses not palpable. HEART: First and second heart sounds are normal; minimal edema. EXTREMITY: Some swelling in bruising along the inner side on the left arm especially upper arm. Slight tenderness. LUNGS: Respiratory rate normal; breath sounds. ABDOMEN: Soft, no tenderness no guarding rigidity, liver spleen not palpable, no masses palpable. PSYCH: Bello to answer simple questions NEUROLOGICAL: [Cranial nerves grossly intact; no facial asymmetry, power 4/5 on the right side INVESTIGATIONS, reviewed in the clinical context: CT brain [March 17] old parietal occipital watershed infarct larger on the left. Old parietal-occipital subcortical infarct. No acute event reported March 17: White count 9.4 hemoglobin 8 platelets 268 potassium 3.9 creatinine 3.6 March 04, 2024: White count 7.1 hemoglobin 10.7 platelets 219 sodium 135 potassium 4.4 BUN 45 creatinine 3.94 bicarb 17 Troponin I less than 0.0130.015 EKG tracing personally reviewed by me-normal sinus rhythm. Some nonspecific T wave changes. Chest x-ray film personally reviewed by me-a bit underpenetrated. Cardiomegaly. Pulm edema Previous labs 2D echocardiogram: [November 2023] EF 65 to 70%. Creatinine 2.46 on January 2023 Assessment and plan: -Acute pulmonary edema a combination of possible CHF and worsening renal function: Followed by nephrology and cardiology. Received IV Lasix. Fluid restriction Started on hemodialysis -Family noticed some facial asymmetry. Stat CT scan of the brain ordered. Showed evidence of old infarct. Neurology consulted Patient already on aspirin and Eliquis. 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 Neck 1.4 mm, following Endo vascular fistula creation by in the left arm. 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 Uncontrolled with hyperglycemia Stop Levemir. Continue with sliding scale -Depression otherwise specified Cymbalta -Hyperlipidemia On Lipitor -End-stage kidney disease hypertensive nephrosclerosis and diabetic nephropathy Follows with Dr. Stevens Now on dialysis -Chronic gait dysfunction uses a walker at home -Full code [Advance care planning discussed on March 04, 2024] Patient's daughter Penny who is the POA, was present so was the and the patient. Daughter was helping interpret the questions. Patient's overall condition was discussed at length. Patient has previously expressed himself to be DNR. is more inclined to be full code. Lengthy discussion was held. They will further discuss the same and get back and let us know if things are to be different. At present time patient remains to be full code.-Time spent about 30 minutes Neurology consulted. Patient be discharged on Thursday after dialysis. Past Medical History Past Medical History: CVA/TIA, Diabetes Mellitus, Hyperlipidemia, Hypertension, Liver Disease, Renal Disease, Sleep Apnea/CPAP/BIPAP Additional Past Medical History / Comment(s): ARTHRITIS, kidney stones, possible dementia, kidney failure, neuropathy alia legs, carpal tunnel. CVA-jul 17 balance issues,speech impairment,vision impairment, receives injections to eyes r/t bleeding ,COVID 07/28/2022 History of Any Multi-Drug Resistant Organisms: None Reported Past Surgical History: Back Surgery Additional Past Surgical History / Comment(s): MASS REMOVED FROM BACK OF HEAD, eye surgery, Past Anesthesia/Blood Transfusion Reactions: No Reported Reaction Past Psychological History: Depression Smoking Status: Never smoker Past Alcohol Use History: None Reported Past Drug Use History: None Reported
--- NOTE | 2024-03-17 18:37 | P.CNNES ---
History of Present Illness Consult date: 03/17/24 Requesting physician: Tadeo Dickerson Reason for Consult: facial droop History of Present Illness: This is a 78-year-old gentleman who presents emergency department because of dyspnea. Pulmonary is consulted to for right facial droop. The history is obtained from patient nurse and medical record. It seems that the patient presented to our facility on 03/04/2024 for dyspnea and it seems that he ran out of the nifedipine and his blood pressure has been uncontrolled for the last 1 week. Today family members felt the patient had right facial weakness but the nurse did not appreciate facial weakness therefore neurology was consulted for further evaluation. On seeing the patient history is very limited from him sin ce he is a Cymro-speaking patient and there is no family members at bedside. 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 Patient is on home dose of Plavix 75 mg daily, Lipitor 20 mg nightly and Keppra 500 mg twice daily. Note, patient was last seen by our neurohospitalist, Dr. Bustillo on 02/02/2022 and he felt the patient had hypertensive urgency, he had history of multiple strokes in the past, probable seizure and he is on Keppra, history of left ICA stenosis and follows up with vascular surgery team, cognitive impairment, diabetes, chronic renal insufficiency hypertension and hyperlipidemia. Please refer to his note for further details. Some of the work-up during this hospital visit consisted of: Patient has anemia during this hospital visit on presentation he has 10.7 most recent 1 is 8.0 POC glucose has been in the range of 120s to 250s. Sodium is within normal limits TSH is 3.370 CT of the head shows old parietal occipital watershed infarct larger on the left . Old parietal occipital subcortical infarct. No acute intracranial process evident. Reviewed the CT and I agree there is no acute or subacute stroke. Review of Systems review of system is limited but the pertinent positive and negative as per HPI. Past Medical History Past Medical History: CVA/TIA, Diabetes Mellitus, Hyperlipidemia, Hypertension, Liver Disease, Renal Disease, Sleep Apnea/CPAP/BIPAP Additional Past Medical History / Comment(s): ARTHRITIS, kidney stones, possible dementia, kidney failure, neuropathy alia legs, carpal tunnel. CVA-oct 20 balance issues,speech impairment,vision impairment, receives injections to eyes r/t bleeding ,COVID 07/28/2022 History of Any Multi-Drug Resistant Organisms: None Reported Past Surgical History: Back Surgery, Cholecystectomy Additional Past Surgical History / Comment(s): MASS REMOVED FROM BACK OF HEAD, eye surgery, Past Anesthesia/Blood Transfusion Reactions: No Reported Reaction Past Psychological History: Depression Smoking Status: Never smoker Past Alcohol Use History: None Reported Past Drug Use History: None Reported - Past Family History Father Family Medical History: Diabetes Mellitus Mother Family Medical History: Diabetes Mellitus Brother(s) Family Medical History: Cancer Sister(s) Family Medical History: Cancer Medications and Allergies Home Medications Medication Instructions Recorded Confirmed Type DULoxetine HCL [Cymbalta] 30 mg PO HS 03/13/16 03/04/24 History Isosorbide Mononitrate ER [Imdur] 60 mg PO DAILY 03/13/16 03/04/24 History Clopidogrel [Plavix] 75 mg PO DAILY #30 tab 07/11/20 03/04/24 Rx levETIRAcetam [Keppra] 500 mg PO BID 12/11/20 03/04/24 History Atorvastatin [Lipitor] 20 mg PO HS 07/18/21 03/04/24 History Insulin Aspart [NovoLOG Flexpen] 10 units SQ AC-BID@0800,1200 07/28/21 03/04/24 History Insulin Aspart [NovoLOG Flexpen] 12 units SQ W/SUPPER 07/28/21 03/04/24 History Vitamin E 400 unit PO DAILY 11/10/21 03/04/24 History Insulin Glargine,Hum.rec.anlog 30 units SQ DAILY #0 11/12/21 03/04/24 Rx [Lantus Solostar Pen] Insulin Aspart [NovoLOG Flexpen] See Protocol SQ TID-W/MEALS PRN 02/02/22 03/04/24 History Sodium Bicarbonate Tab 650 mg PO BID #30 tab 12/08/23 03/04/24 Rx carvediloL [Coreg*] 12.5 mg PO BID-W/MEALS #60 tab 12/08/23 03/04/24 Rx Ergocalciferol (Vitamin D2) 1,250 mcg PO MO 02/24/24 03/04/24 History [Drisdol (50,000 Iu)] Furosemide [Lasix] See Taper PO DAILY 03/04/24 03/04/24 History NIFEdipine XL [Procardia XL] 60 mg PO BID 03/04/24 03/04/24 History Allergies Allergy/AdvReac Type Severity Reaction Status Date / Time No Known Allergies Allergy Verified 03/04/24 08:24 Physical Examination - Vital Signs Vital Signs: Vital Signs Temp Pulse Resp BP Pulse Ox 03/17/24 18:12 98.5 F 60 18 151/70 03/17/24 06:56 98.4 F 72 17 128/71 96 03/16/24 21:25 98.4 F 67 18 143/65 98 Intake and Output 03/17/24 03/17/24 03/17/24 06:59 14:59 22:59 Intake Total 500 Output Total 200 1500 Balance -200 -1000 Intake: Hemodialysis 500 Output: Urine 200 Hemodialysis 1500 Other: # Bowel Movements 1 General: Lying in bed and does not appear in acute distress. Neuro: Limited because of language barrier Patient is awake, alert. He is able to respond to me with my limited Cymro Correctly (upon asking him how he was doing? He stated good in Cymro etc). No obvious facial weakness. No dysarthria. Motor: Limited in assessment. Results - Laboratory Findings CBC and BMP: 03/17/24 06:45 03/17/24 06:45 Abnormal Lab Findings: Abnormal Labs 03/04/24 03/04/24 03/04/24 06:29 06:29 12:03 RBC 3.61 L Hgb 10.7 L Hct 33.7 L MCHC Sodium 135 L Chloride 110 H Carbon Dioxide 17 L Anion Gap BUN 45 H Creatinine 3.94 H Est GFR (CKD-EPI) BUN/Creatinine Ratio Glucose 220 H POC Glucose (mg/dL) 219 H Calcium 8.1 L Phosphorus Iron TIBC % Saturation Transferrin Total Bilirubin ALT Alkaline Phosphatase 136 H Total Protein 5.8 L Albumin 3.3 L Albumin/Globulin Ratio Urine Protein Urine Glucose (UA) Urine Blood Ur Leukocyte Esterase Urine RBC Urine WBC Amorphous Sediment Urine Mucus Urine Yeast (Budding) 03/04/24 03/05/24 03/05/24 16:52 06:31 11:40 RBC Hgb Hct MCHC Sodium Chloride Carbon Dioxide Anion Gap BUN Creatinine Est GFR (CKD-EPI) BUN/Creatinine Ratio Glucose POC Glucose (mg/dL) 162 H 255 H 210 H Calcium Phosphorus Iron TIBC % Saturation Transferrin Total Bilirubin ALT Alkaline Phosphatase Total Protein Albumin Albumin/Globulin Ratio Urine Protein Urine Glucose (UA) Urine Blood Ur Leukocyte Esterase Urine RBC Urine WBC Amorphous Sediment Urine Mucus Urine Yeast (Budding) 03/05/24 03/05/24 03/06/24 16:39 18:28 07:26 RBC Hgb Hct MCHC Sodium 136 L 136 L Chloride 111 H 110 H Carbon Dioxide 20 L 20 L Anion Gap BUN 48 H 47 H Creatinine 4.43 H 4.89 H Est GFR (CKD-EPI) BUN/Creatinine Ratio Glucose POC Glucose (mg/dL) 68 L Calcium 8.1 L Phosphorus Iron TIBC % Saturation Transferrin Total Bilirubin ALT Alkaline Phosphatase Total Protein Albumin Albumin/Globulin Ratio Urine Protein Urine Glucose (UA) Urine Blood Ur Leukocyte Esterase Urine RBC Urine WBC Amorphous Sediment Urine Mucus Urine Yeast (Budding) 03/06/24 03/06/24 03/06/24 07:26 11:21 16:09 RBC Hgb Hct MCHC Sodium Chloride Carbon Dioxide Anion Gap BUN Creatinine Est GFR (CKD-EPI) BUN/Creatinine Ratio Glucose POC Glucose (mg/dL) 141 H 177 H Calcium Phosphorus 5.3 H Iron TIBC % Saturation Transferrin Total Bilirubin ALT Alkaline Phosphatase Total Protein Albumin Albumin/Globulin Ratio Urine Protein Urine Glucose (UA) Urine Blood Ur Leukocyte Esterase Urine RBC Urine WBC Amorphous Sediment Urine Mucus Urine Yeast (Budding) 03/06/24 03/07/24 03/07/24 20:00 06:48 06:55 RBC Hgb Hct MCHC Sodium 136 L Chloride Carbon Dioxide Anion Gap BUN 39 H Creatinine 4.35 H Est GFR (CKD-EPI) BUN/Creatinine Ratio Glucose 202 H POC Glucose (mg/dL) 153 H 203 H Calcium 7.9 L Phosphorus Iron TIBC % Saturation Transferrin Total Bilirubin ALT Alkaline Phosphatase Total Protein Albumin Albumin/Globulin Ratio Urine Protein Urine Glucose (UA) Urine Blood Ur Leukocyte Esterase Urine RBC Urine WBC Amorphous Sediment Urine Mucus Urine Yeast (Budding) 03/07/24 03/07/24 03/07/24 11:12 18:50 19:05 RBC Hgb Hct MCHC Sodium Chloride Carbon Dioxide Anion Gap BUN Creatinine Est GFR (CKD-EPI) BUN/Creatinine Ratio Glucose POC Glucose (mg/dL) 226 H 48 L* 164 H Calcium Phosphorus Iron TIBC % Saturation Transferrin Total Bilirubin ALT Alkaline Phosphatase Total Protein Albumin Albumin/Globulin Ratio Urine Protein Urine Glucose (UA) Urine Blood Ur Leukocyte Esterase Urine RBC Urine WBC Amorphous Sediment Urine Mucus Urine Yeast (Budding) 03/08/24 03/08/24 03/08/24 11:13 16:38 20:09 RBC Hgb Hct MCHC Sodium Chloride Carbon Dioxide Anion Gap BUN Creatinine Est GFR (CKD-EPI) BUN/Creatinine Ratio Glucose POC Glucose (mg/dL) 191 H 210 H 219 H Calcium Phosphorus Iron TIBC % Saturation Transferrin Total Bilirubin ALT Alkaline Phosphatase Total Protein Albumin Albumin/Globulin Ratio Urine Protein Urine Glucose (UA) Urine Blood Ur Leukocyte Esterase Urine RBC Urine WBC Amorphous Sediment Urine Mucus Urine Yeast (Budding) 03/09/24 03/09/24 03/09/24 12:08 12:57 17:01 RBC 3.14 L Hgb 9.2 L D Hct 29.5 L MCHC Sodium Chloride Carbon Dioxide Anion Gap BUN Creatinine Est GFR (CKD-EPI) BUN/Creatinine Ratio Glucose POC Glucose (mg/dL) 124 H 220 H Calcium Phosphorus Iron TIBC % Saturation Transferrin Total Bilirubin ALT Alkaline Phosphatase Total Protein Albumin Albumin/Globulin Ratio Urine Protein Urine Glucose (UA) Urine Blood Ur Leukocyte Esterase Urine RBC Urine WBC Amorphous Sediment Urine Mucus Urine Yeast (Budding) 03/09/24 03/10/24 03/10/24 20:00 04:00 06:13 RBC Hgb Hct MCHC Sodium Chloride Carbon Dioxide Anion Gap BUN Creatinine Est GFR (CKD-EPI) BUN/Creatinine Ratio Glucose POC Glucose (mg/dL) 220 H 49 L* Calcium Phosphorus Iron TIBC % Saturation Transferrin Total Bilirubin ALT Alkaline Phosphatase Total Protein Albumin Albumin/Globulin Ratio Urine Protein 3+ H Urine Glucose (UA) 2+ H Urine Blood Large H Ur Leukocyte Esterase Large H Urine RBC >182 H Urine WBC 50 H Amorphous Sediment Rare H Urine Mucus Urine Yeast (Budding) Few H 03/10/24 03/10/24 03/10/24 09:27 16:36 19:53 RBC Hgb Hct MCHC Sodium 133 L Chloride Carbon Dioxide Anion Gap BUN 33 H Creatinine 4.10 H Est GFR (CKD-EPI) BUN/Creatinine Ratio Glucose POC Glucose (mg/dL) 167 H 202 H Calcium 7.9 L Phosphorus Iron TIBC % Saturation Transferrin Total Bilirubin ALT Alkaline Phosphatase Total Protein Albumin Albumin/Globulin Ratio Urine Protein Urine Glucose (UA) Urine Blood Ur Leukocyte Esterase Urine RBC Urine WBC Amorphous Sediment Urine Mucus Urine Yeast (Budding) 03/11/24 03/11/24 03/11/24 05:53 11:47 16:22 RBC Hgb Hct MCHC Sodium Chloride Carbon Dioxide Anion Gap BUN Creatinine Est GFR (CKD-EPI) BUN/Creatinine Ratio Glucose POC Glucose (mg/dL) 160 H 299 H 251 H Calcium Phosphorus Iron TIBC % Saturation Transferrin Total Bilirubin ALT Alkaline Phosphatase Total Protein Albumin Albumin/Globulin Ratio Urine Protein Urine Glucose (UA) Urine Blood Ur Leukocyte Esterase Urine RBC Urine WBC Amorphous Sediment Urine Mucus Urine Yeast (Budding) 03/11/24 03/11/24 03/12/24 18:56 20:33 06:09 RBC Hgb Hct MCHC Sodium Chloride Carbon Dioxide Anion Gap BUN Creatinine Est GFR (CKD-EPI) BUN/Creatinine Ratio Glucose POC Glucose (mg/dL) 227 H 185 H Calcium Phosphorus Iron TIBC % Saturation Transferrin Total Bilirubin ALT Alkaline Phosphatase Total Protein Albumin Albumin/Globulin Ratio Urine Protein Urine Glucose (UA) Urine Blood Ur Leukocyte Esterase Urine RBC >182 H Urine WBC 8 H Amorphous Sediment Urine Mucus Rare H Urine Yeast (Budding) 03/12/24 03/12/24 03/12/24 11:15 16:04 20:12 RBC Hgb Hct MCHC Sodium Chloride Carbon Dioxide Anion Gap BUN Creatinine Est GFR (CKD-EPI) BUN/Creatinine Ratio Glucose POC Glucose (mg/dL) 224 H 292 H 149 H Calcium Phosphorus Iron TIBC % Saturation Transferrin Total Bilirubin ALT Alkaline Phosphatase Total Protein Albumin Albumin/Globulin Ratio Urine Protein Urine Glucose (UA) Urine Blood Ur Leukocyte Esterase Urine RBC Urine WBC Amorphous Sediment Urine Mucus Urine Yeast (Budding) 03/13/24 03/13/24 03/13/24 04:39 06:03 06:15 RBC 2.66 L Hgb 8.0 L Hct 24.5 L MCHC Sodium Chloride Carbon Dioxide Anion Gap BUN Creatinine Est GFR (CKD-EPI) BUN/Creatinine Ratio Glucose POC Glucose (mg/dL) 280 H 267 H Calcium Phosphorus Iron TIBC % Saturation Transferrin Total Bilirubin ALT Alkaline Phosphatase Total Protein Albumin Albumin/Globulin Ratio Urine Protein Urine Glucose (UA) Urine Blood Ur Leukocyte Esterase Urine RBC Urine WBC Amorphous Sediment Urine Mucus Urine Yeast (Budding) 03/13/24 03/13/24 03/13/24 06:15 16:17 20:33 RBC Hgb Hct MCHC Sodium 132 L Chloride Carbon Dioxide 31 H Anion Gap BUN Creatinine 2.65 H Est GFR (CKD-EPI) BUN/Creatinine Ratio Glucose 235 H POC Glucose (mg/dL) 124 H 145 H Calcium 7.5 L Phosphorus Iron TIBC % Saturation Transferrin Total Bilirubin ALT Alkaline Phosphatase Total Protein Albumin Albumin/Globulin Ratio Urine Protein Urine Glucose (UA) Urine Blood Ur Leukocyte Esterase Urine RBC Urine WBC Amorphous Sediment Urine Mucus Urine Yeast (Budding) 03/14/24 03/14/24 03/14/24 06:07 08:20 08:20 RBC 2.81 L Hgb 8.4 L Hct 27.3 L MCHC 30.7 L Sodium 136 L Chloride Carbon Dioxide Anion Gap BUN 24 H Creatinine 3.37 H Est GFR (CKD-EPI) BUN/Creatinine Ratio Glucose 127 H POC Glucose (mg/dL) 130 H Calcium 8.1 L Phosphorus Iron TIBC % Saturation Transferrin Total Bilirubin ALT Alkaline Phosphatase Total Protein 4.9 L Albumin 2.5 L Albumin/Globulin Ratio Urine Protein Urine Glucose (UA) Urine Blood Ur Leukocyte Esterase Urine RBC Urine WBC Amorphous Sediment Urine Mucus Urine Yeast (Budding) 03/14/24 03/14/24 03/14/24 08:20 12:02 16:47 RBC Hgb Hct MCHC Sodium Chloride Carbon Dioxide Anion Gap BUN Creatinine Est GFR (CKD-EPI) BUN/Creatinine Ratio Glucose POC Glucose (mg/dL) 150 H 125 H Calcium Phosphorus Iron 27 L TIBC 202 L % Saturation 13.37 L Transferrin 144.0 L Total Bilirubin ALT Alkaline Phosphatase Total Protein Albumin Albumin/Globulin Ratio Urine Protein Urine Glucose (UA) Urine Blood Ur Leukocyte Esterase Urine RBC Urine WBC Amorphous Sediment Urine Mucus Urine Yeast (Budding) 03/14/24 03/15/24 03/15/24 19:54 05:56 11:59 RBC Hgb Hct MCHC Sodium Chloride Carbon Dioxide Anion Gap BUN Creatinine Est GFR (CKD-EPI) BUN/Creatinine Ratio Glucose POC Glucose (mg/dL) 186 H 220 H 218 H Calcium Phosphorus Iron TIBC % Saturation Transferrin Total Bilirubin ALT Alkaline Phosphatase Total Protein Albumin Albumin/Globulin Ratio Urine Protein Urine Glucose (UA) Urine Blood Ur Leukocyte Esterase Urine RBC Urine WBC Amorphous Sediment Urine Mucus Urine Yeast (Budding) 03/15/24 03/15/24 03/16/24 16:29 20:10 00:31 RBC Hgb Hct MCHC Sodium Chloride Carbon Dioxide Anion Gap BUN Creatinine Est GFR (CKD-EPI) BUN/Creatinine Ratio Glucose POC Glucose (mg/dL) 349 H 305 H 165 H Calcium Phosphorus Iron TIBC % Saturation Transferrin Total Bilirubin ALT Alkaline Phosphatase Total Protein Albumin Albumin/Globulin Ratio Urine Protein Urine Glucose (UA) Urine Blood Ur Leukocyte Esterase Urine RBC Urine WBC Amorphous Sediment Urine Mucus Urine Yeast (Budding) 03/16/24 03/16/24 03/16/24 06:09 10:15 10:15 RBC 2.69 L Hgb 8.1 L Hct 25.0 L MCHC Sodium 131 L Chloride 97 L Carbon Dioxide 31 H Anion Gap BUN Creatinine 2.58 H Est GFR (CKD-EPI) BUN/Creatinine Ratio Glucose 225 H POC Glucose (mg/dL) 247 H Calcium 7.7 L Phosphorus Iron TIBC % Saturation Transferrin Total Bilirubin ALT Alkaline Phosphatase Total Protein 4.7 L Albumin 2.4 L Albumin/Globulin Ratio Urine Protein Urine Glucose (UA) Urine Blood Ur Leukocyte Esterase Urine RBC Urine WBC Amorphous Sediment Urine Mucus Urine Yeast (Budding) 03/16/24 03/16/24 03/16/24 11:30 12:30 16:40 RBC Hgb Hct MCHC Sodium Chloride Carbon Dioxide Anion Gap BUN Creatinine Est GFR (CKD-EPI) BUN/Creatinine Ratio Glucose POC Glucose (mg/dL) 246 H 295 H 227 H Calcium Phosphorus Iron TIBC % Saturation Transferrin Total Bilirubin ALT Alkaline Phosphatase Total Protein Albumin Albumin/Globulin Ratio Urine Protein Urine Glucose (UA) Urine Blood Ur Leukocyte Esterase Urine RBC Urine WBC Amorphous Sediment Urine Mucus Urine Yeast (Budding) 03/16/24 03/17/24 03/17/24 20:34 06:14 06:45 RBC 2.66 L Hgb 8.0 L Hct 24.5 L MCHC Sodium Chloride Carbon Dioxide Anion Gap BUN Creatinine Est GFR (CKD-EPI) BUN/Creatinine Ratio Glucose POC Glucose (mg/dL) 280 H 231 H Calcium Phosphorus Iron TIBC % Saturation Transferrin Total Bilirubin ALT Alkaline Phosphatase Total Protein Albumin Albumin/Globulin Ratio Urine Protein Urine Glucose (UA) Urine Blood Ur Leukocyte Esterase Urine RBC Urine WBC Amorphous Sediment Urine Mucus Urine Yeast (Budding) 03/17/24 03/17/24 03/17/24 06:45 11:36 16:32 RBC Hgb Hct MCHC Sodium Chloride Carbon Dioxide Anion Gap 13.50 H BUN Creatinine 3.6 H Est GFR (CKD-EPI) 17 L BUN/Creatinine Ratio 5.72 L Glucose 237 H POC Glucose (mg/dL) 251 H 124 H Calcium 7.9 L Phosphorus Iron TIBC % Saturation Transferrin Total Bilirubin <0.2 L ALT 9 L Alkaline Phosphatase Total Protein 5.2 L Albumin 3.1 L Albumin/Globulin Ratio 1.48 L Urine Protein Urine Glucose (UA) Urine Blood Ur Leukocyte Esterase Urine RBC Urine WBC Amorphous Sediment Urine Mucus Urine Yeast (Budding) Assessment and Plan Assessment: This is a 78-year-old gentleman who presented emergency department on 03/04/2024 because of dyspnea and it seems the patient ran out of his blood pressure medication for 1 week. Today the family felt he had right facial weakness but the nurse did not appreciated so primary wanted neurology to evaluate the patient. Seen the patient I did not appreciate any facial weakness Reported right facial weakness seen by family members. Rule out stroke vs TIA. It was not appreciated by nurse or myself. Acute pulmonary edema Acute on chronic congestive heart failure Hematuria Acute anemia Acute urinary tract infection Status seems due to metabolic encephalopathy as well as acute UTI. History of multiple strokes in the past History of probable seizure and is on Keppra History of left ICA stenosis and the patient was following up with intervention neurologist, Dr. Centeno Reported cognitive impairment. Per the nurse his baseline is oriented X1. Chronic renal insufficiency stage V and is on dialysis Diabetes, he is on insulin and his diabetes is not controlled Hypertension Hyperlipidemia Plan: I ordered MRI of the brain, carotid duplex and routine EEG Patient is on aspirin 81 mg daily, Eliquis 2.5 mg twice daily And Lipitor 20 mg nightly Continue neurochecks Cardiac monitoring Will defer the rest of the medical management to primary and other specialist The plan discussed with the patient's nurse Time with Patient: Greater than 30
--- NOTE | 2024-03-17 18:58 | US ---
EXAMINATION TYPE: US carotid duplex BILAT DATE OF EXAM: 03/17/2024 COMPARISON: NONE CLINICAL INDICATION: Male, 78 years old with history of stroke. reported right facial droop; Stroke limited due to patient sleeping during exam. TECHNIQUE: Carotid duplex ultrasound examination. Indirect Doppler criteria was utilized. FINDINGS: EXAM MEASUREMENTS: RIGHT: Peak Systolic Velocity (PSV) cm/sec ----- Right CCA: 80.3 ----- Right ICA: 94.3 ----- Right ECA: 176 ICA/CCA ratio: 1.2 RIGHT: End Diastole cm/sec ----- Right CCA: 0 ----- Right ICA: 9.0 ----- Right ECA: 0 LEFT: Peak Systolic Velocity (PSV) cm/sec ----- Left CCA: 101 ----- Left ICA: 116 ----- Left ECA: 163 ICA/CCA ratio: 1.1 LEFT: End Diastole cm/sec ----- Left CCA: 0 ----- Left ICA: 0 ----- Left ECA: 0 VERTEBRALS (direction of flow): Right Vertebral: Antegrade Left Vertebral: Antegrade Rhythm: Normal HUMAN SERVICES MANAGER NOTES: No significant stenosis seen within the internal carotid arteries. Some external c arotid artery stenosis is likely present bilaterally. IMPRESSION: 1. No significant flow-limiting stenosis internal carotid artery origins based on velocity. Criteria for Assigning % of Stenosis / Diameter reduction (Estimation based on the indirect measurements of the internal carotid artery velocities (ICA PSV). 1. Normal (no stenosis)=ICA PSV < 125 cm/s: ratio < 2.0: ICA EDV<40 cm/s. 2. Less than 50% stenosis=ICA PSV < 125 cm/s: ratio < 2.0: ICA EDV<40 cm/s. 3. 50 to 69% stenosis=ICA PSV of 125 to 230 cm/s: ration 2.0 ? 4.0: ICA EDV 40-100 cm/s. 4. Greater than 70% stenosis to near occlusion= ICA PSV > 230 cm/s: ratio > 4.0: ICA EDV > 100 cm/s. 5. Near occlusion= ICA PSV velocities may be low or undetectable: variable ratio and ICA EDV. 6. Total occlusion=unable to detect flow.
[2024-03-17 20:39] LABS: Glucose,Whole Blood 262 mg/dL (70-110)
[2024-03-18 05:47] LABS: Glucose,Whole Blood 180 mg/dL (70-110)
[2024-03-18 11:48] LABS: Glucose,Whole Blood 253 mg/dL (70-110)
--- NOTE | 2024-03-18 16:08 | P.PN ---
Progress Note - Text Progress Note Date: 03/18/24 Chief Complaint: Short of breath This is a 78-year-old, Somali-speaking patient of Dr. Santana. Chronic stable medical conditions include hyperlipidemia, diabetes, obstructive sleep apnea, osteoarthritis, kidney stones, cognitive impairment-dementia. 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 Had a loop recorder seizures. Visit his and daughter. 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 Stevens. Patient was sent down to [place], where he underwent Endo fistula placement by -around February 16.. Developed mid left brachial aneurysm. Patient seen earlier today, accompanied by his and daughter Alannah Niño. For 2 days patient been having increasing shortness of breath. Decreased appetite. Normally has about 2-3 loose stools a day. Does wear depends. Patient himself is not a good historian. Denies any chest pain. Tired. Daughter really helps with being this For this Somali-speaking gentleman/father. Slight edema. No fever no chills March 05: Laying in bed. is present. Patient did eat some. Blood pressure is better. Some improvement in shortness of breath. Currently no dialysis per nephrology. March 06: Laying in bed. Family at the bedside. Nephrology has decided to proceed with dialysis. Dr. Obrien this afternoon placed dialysis catheter. Appetite decreased. Blood pressure controlled. Patient confirmed-full code March 07: Patient had his first dialysis today. 1.5 L removed. Up in a chair. Eating better. at the bedside. March 08: Second hemodialysis today. Breathing a bit better. Did eat some diet. present. March 09: Did not sleep too well last night. Sleepy this morning. Oral intake variable. Due for next dialysis tomorrow. Ensure added. March 10: Decreased oral intake. Spoke to family members at the bedside. I personally fed the patient. Easily ate 3 teaspoons of food. Told him to be more persistent. There is a questionable UTI given that patient had a Hu catheter. Will give IV ceftriaxone. Spoke to social science professor. Earliest chair time available is next Thursday. Note patient Accu-Chek dropped to 49 this morning. Will DC Levemir. March 11: Patient more awake today. Communicating much better. Sleep hygiene explained to the nurse. Improved patient circadian rhythm. Will add scheduled 4 units NovoLog with meals. Discharge patient over the weekend once chair time is confirmed and cleared by nephrology. 03/12. Patient seen and examined. Patient had a Hu placed yesterday, currently having hematuria. Patient also had swelling and tenderness of his penis 03/13. Patient seen and examined. Lab work done this morning showed W6.2, hemoglobin 8, platelet count 248, sodium 132, potassium 4.3. Still having hematuria, will hold Eliquis for now 03/14. Patient seen and examined. Hemoglobin this morning is 8.4. Patient is lethargic this morning. Getting dialysis today 03/15. Patient seen and examined. Continues to have hematuria but mostly old blood clots. Patient is more alert compared to yesterday, 03/16. Patient seen and examined patient is more alert and answering questions. Blood pressure on the lower side, started on midodrine. Hematuria improved March 17: Spoke to the nurse. Patient have to leave after dialysis on Thursday. As outpatient dialysis will not be started on the weekend. Later the nurse called me that family had noticed some drooping of the face. Stat CT scan was ordered including neurology consult. No evidence of new stroke. Old stroke was seen. Oral intake fluctuating. Plan is for patient to go home March 18: Patient eating rather well being fed with the family. CT scan results discussed with the and daughter Kiana on the phone. Several questions were answered. Also early discussed with Dr. PEREZ from neurology. Patient is already on aspirin and Eliquis. Several questions were answered. Patient will be discharged after dialysis tomorrow. Crease NovoLog to 7 units with meals Time spent about 50 minutes today with over 40 minutes of discussion Active Medications Acetaminophen (Acetaminophen Tab 325 Mg Tab) 650 mg PO Q6HR PRN PRN Reason: Mild Pain or Fever > 100.5 Last Admin: 03/17/24 04:06 Dose: 650 mg Apixaban (Apixaban 2.5 Mg Tablet) 2.5 mg PO BID COUNT INCLUDES THE [facility]; Protocol Last Admin: 03/18/24 07:55 Dose: 2.5 mg Aspirin (Aspirin 81 Mg) 81 mg PO DAILY COUNT INCLUDES THE [facility] Last Admin: 03/18/24 07:55 Dose: 81 mg Atorvastatin Calcium (Atorvastatin 20 Mg Tab) 20 mg PO HS COUNT INCLUDES THE [facility] Last Admin: 03/17/24 21:22 Dose: 20 mg Calcium Carbonate/Glycine (Calcium Carbonate 500 Mg Chewable) 1,000 mg PO Q4HR PRN PRN Reason: Dyspepsia Carvedilol (Carvedilol 12.5 Mg Tab) 12.5 mg PO BID-W/MEALS COUNT INCLUDES THE [facility] Last Admin: 03/18/24 05:56 Dose: 12.5 mg Dextrose/Water (Dextrose 50% Syringe 50 Ml) 25 ml IVP PER PROTOCOL PRN; Prot ocol PRN Reason: Hypoglycemia Last Admin: 03/10/24 06:17 Dose: 25 ml Dextrose/Water (Dextrose 50% Syringe 50 Ml) 50 ml IVP PER PROTOCOL PRN; Protocol PRN Reason: Hypoglycemia Duloxetine HCl (Duloxetine Hcl 30 Mg Capsule.Dr) 30 mg PO HS COUNT INCLUDES THE [facility] Last Admin: 03/17/24 21:22 Dose: 30 mg Ergocalciferol (Ergocalciferol 1,250 Mcg (50,000 Iu) Capsule) 1,250 mcg PO MO COUNT INCLUDES THE [facility] Last Admin: 03/14/24 16:07 Dose: Not Given Ferric Sodium Gluconate 125 mg (/ Sodium Chloride) 110 mls @ 100 mls/hr IVPB DAILY COUNT INCLUDES THE [facility] Last Admin: 03/18/24 08:44 Dose: 100 mls/hr Insulin Aspart (Insulin Aspart (Novolog) 100 Unit/Ml Vial) 0 unit SQ ACHS BETSY; Protocol Last Admin: 03/18/24 12:30 Dose: 6 unit Insulin Aspart (Insulin Aspart (Novolog) 100 Unit/Ml Vial) 4 unit SQ AC-TID COUNT INCLUDES THE [facility] Last Admin: 03/18/24 12:30 Dose: 4 unit Isosorbide Mononitrate (Isosorbide Mononitrate Er 60 Mg Tab.Er.24h) 120 mg PO DAILY COUNT INCLUDES THE [facility] Last Admin: 03/18/24 07:55 Dose: 120 mg Lactulose (Lactulose 20 Gm/30 Ml Cup) 20 gm PO DAILY PRN PRN Reason: Constipation Levetiracetam (Levetiracetam 500 Mg Tab) 500 mg PO BID COUNT INCLUDES THE [facility] Last Admin: 03/18/24 07:55 Dose: 500 mg Lorazepam (Lorazepam 0.5 Mg Tab) 0.5 mg PO Q6HR PRN PRN Reason: Anxiety Last Admin: 03/16/24 23:27 Dose: 0.5 mg Midodrine (Midodrine 5 Mg Tab) 10 mg PO AC-TID COUNT INCLUDES THE [facility] Last Admin: 03/18/24 12:33 Dose: Not Given Naloxone HCl (Naloxone 0.4 Mg/Ml 1 Ml Vial) 0.2 mg IV Q2M PRN PRN Reason: Opioid Reversal Nifedipine (Nifedipine Xl 60 Mg Tab.Er.24) 60 mg PO BID COUNT INCLUDES THE [facility] Last Admin: 03/18/24 08:46 Dose: 60 mg Ondansetron HCl (Ondansetron 4 Mg/2 Ml Vial) 4 mg IVP Q8HR PRN PRN Reason: Nausea And Vomiting Last Admin: 03/06/24 10:42 Dose: 4 mg Tramadol HCl (Tramadol 50 Mg Tab) 25 mg PO Q8HR PRN PRN Reason: Mild to Moderate Pain (1 - 6) Last Admin: 03/18/24 07:55 Dose: 25 mg Past medical history to include: Diabetes, hyperlipidemia, hypertension, obstructive sleep apnea, osteoarthritis, kidney stones, cognitive impairment, stroke hypertension with right-sided weakness, depression, seizure Social history: No history of smoking or alcohol. Lives with his and daughter. Does use a walker. Daughter is the POA Physical examination: VITAL SIGNS: 98, 70, 18, 152 x 71, 97% room air GENERAL: Resting in bed. Family feeding him lunch. EYES: Pupils equal. Conjunctiva normal. HEENT: External appearance of nose and ears normal, oral cavity grossly normal. NECK: JVD not raised; masses not palpable. HEART: First and second heart sounds are normal; minimal edema. EXTREMITY: Some swelling in bruising along the inner side on the left arm especially upper arm. Slight tenderness. LUNGS: Respiratory rate normal; breath sounds. ABDOMEN: Soft, no tenderness no guarding rigidity, liver spleen not palpable, no masses palpable. PSYCH: Able to answer simple questions NEUROLOGICAL: [Cranial nerves grossly intact; no facial asymmetry, power 4/5 on the right side INVESTIGATIONS, reviewed in the clinical context: CT brain [March 17] old parietal occipital watershed infarct larger on the left. Old parietal-occipital subcortical infarct. No acute event reported March 17: White count 9.4 hemoglobin 8 platelets 268 potassium 3.9 creatinine 3.6 March 04, 2024: White count 7.1 hemoglobin 10.7 platelets 219 sodium 135 potassium 4.4 BUN 45 creatinine 3.94 bicarb 17 Troponin I less than 0.0130.015 EKG tracing personally reviewed by me-normal sinus rhythm. Some nonspecific T wave changes. Chest x-ray film personally reviewed by me-a bit underpenetrated. Cardiomegaly. Pulm edema Previous labs 2D echocardiogram: [November 2023] EF 65 to 70%. Creatinine 2.46 on January 2023 Assessment and plan: -Acute pulmonary edema a combination of possible CHF and worsening renal function: Followed by nephrology and cardiology. Received IV Lasix. Fluid restriction Started on hemodialysis -Family noticed some facial asymmetry. CT scan of the brain ordered. Showed evidence of old infarct. Neurology following already on aspirin and Eliquis. 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 Neck 1.4 mm, following Endo vascular fistula creation by in the left arm. 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 Uncontrolled with hyperglycemia NovoLog to 7 units AC 3 times daily -Depression otherwise specified Cymbalta -Hyperlipidemia On Lipitor -End-stage kidney disease hypertensive nephrosclerosis and diabetic nephropathy Follows with Dr. Stevens Now on dialysis -Chronic gait dysfunction uses a walker at home -Full code [Advance care planning discussed on March 04, 2024] Patient's daughter Penny who is the POA, was present so was the and the patient. Daughter was helping interpret the questions. Patient's overall condition was discussed at length. Patient has previously expressed himself to be DNR. is more inclined to be full code. Lengthy discussion was held. They will further discuss the same and get back and let us know if things are to be different. At present time patient remains to be full code.-Time spent about 30 minutes Discussed at length. Questions answered. Plan for discharge tomorrow after dialysis Past Medical History Past Medical History: CVA/TIA, Diabetes Mellitus, Hyperlipidemia, Hypertension, Liver Disease, Renal Disease, Sleep Apnea/CPAP/BIPAP Additional Past Medical History / Comment(s): ARTHRITIS, kidney stones, possible dementia, kidney failure, neuropathy alia legs, carpal tunnel. CVA-oct 20 balance issues,speech impairment,vision impairment, receives injections to eyes r/t bleeding ,COVID 07/28/2022 History of Any Multi-Drug Resistant Organisms: None Reported Past Surgical History: Back Surgery Additional Past Surgical History / Comment(s): MASS REMOVED FROM BACK OF HEAD, eye surgery, Past Anesthesia/Blood Transfusion Reactions: No Reported Reaction Past Psychological History: Depression Smoking Status: Never smoker Past Alcohol Use History: None Reported Past Drug Use History: None Reported
--- NOTE | 2024-03-18 16:46 | P.PN ---
Subjective Progress Note Date: 03/18/24 I am following-up with patient and he is accompanied by his daughter. His daughter is Mozambican speaking and she stated that the patient understands Mozambican. She stated that the patient has a history of stroke and has speech difficulty at baseline. Notified me that she was not here yesterday when her sister saw the patient having right facial weakness. He does not feel the patient has right facial weakness currently. Please he told me that the patient is confused but as she was giving more history she stated the patient's oriented x 1 at baseline and he is at baseline. I spoke with the primary team and he did not appreciate any facial weakness yesterday. Objective - Vital Signs Vital signs: Vital Signs Temp 98.0 F 03/18/24 07:06 Pulse 70 03/18/24 07:06 Resp 18 03/18/24 07:06 BP 152/71 03/18/24 07:06 Pulse Ox 90 L 03/18/24 12:47 FiO2 Intake & Output 03/17/24 03/18/24 03/18/24 18:59 06:59 18:59 Intake Total 500 Output Total 1500 700 Balance -1000 -700 Weight 89.5 kg Intake: Hemodialysis 500 Output: Urine 700 Hemodialysis 1500 Other: Voiding Method Indwelling Catheter Indwelling Catheter - Exam General: Lying in bed and is not in acute distress. Neuro: The patient is awake, alert, oriented to self. At times his daughter had to speak in Montenegrin with him for him to follow commands. He stated he is doing well. He was able to follow few simple commands and required some cuing. No facial weakness noted. Sticking tongue out without difficulty. Motor: Strength is hard to assess individual muscle strength but lifting bilateral uppers above gravity. Is wiggling toes. Some of the work-up during this hospital visit consisted of: Patient has anemia during this hospital visit on presentation he has 10.7 most recent 1 is 8.0 POC glucose has been in the range of 120s to 250s. Sodium is within normal limits TSH is 3.370 Urine analysis seems suggestive of urinary track infection. CT of the head shows old parietal occipital watershed infarct larger on the left. Old parietal occipital subcortical infarct. No acute intracranial process evident. Reviewed the CT and I agree there is no acute or subacute stroke. Carotid duplex: No significant flow limiting stenosis internal carotid artery origins based on velocity. - Labs CBC & Chem 7: 03/17/24 06:45 03/17/24 06:45 Labs: Abnormal Lab Results - Last 24 Hours (Table) 03/17/24 03/17/24 03/18/24 Range/Units 16:32 20:36 05:46 POC Glucose (mg/dL) 124 H 262 H 180 H (70-110) mg/dL 03/18/24 Range/Units 11:47 POC Glucose (mg/dL) 253 H (70-110) mg/dL Assessment and Plan Assessment: This is a 78-year-old gentleman who presented emergency department on 03/04/2024 because of dyspnea and it seems the patient ran out of his blood pressure medication for 1 week. Today the family felt he had right facial weakness but the nurse did not appreciated so primary wanted neurology to evaluate the shahana ent. Seen the patient I did not appreciate any facial weakness Reported transient right facial weakness seen by family members yesterday. It was not appreciated by nurse or primary attending. Cannot rule out TIA vs due to acute recent acute UTI and metabolic deragement giving him old stroke symp toms. CT head ins negative for acute stroke. Acute pulmonary edema Acute on chronic congestive heart failure Hematuria Acute anemia Acute urinary tract infection Status seems due to metabolic encephalopathy as well as acute UTI. History of multiple strokes in the past History of probable seizure and is on Keppra History of left ICA stenosis and the patient was following up with intervention neurologist, Dr. Centeno Reported cognitive impairment. Per the nurse his baseline is oriented X1. Chronic renal insufficiency stage V and is on dialysis Diabetes, he is on insulin and his diabetes is not controlled Hypertension Hyperlipidemia Plan: Preliminary routine EEG: Negative for seizure. I will discontinue MRI Brain. But if continues to have neurological issues then will proceed with MRI. Patient is on aspirin 81 mg daily, Eliquis 2.5 mg twice daily And Lipitor 20 mg nightly Continue neurochecks Cardiac monitoring Will defer the rest of the medical management to primary and other specialist Recommend the patient to follow-up with neurologist as outpatient within 2 weeks The plan discussed with the patient's daughter who is at bedside and nurse. Time with Patient: Less than 30
[2024-03-18 17:17] LABS: Glucose,Whole Blood 218 mg/dL (70-110)
[2024-03-18] MEDS: INSULIN ASPART (NovoLOG) 100 UNIT/ML VIAL SQ SCH (17:39)
[2024-03-18 21:02] LABS: Glucose,Whole Blood 113 mg/dL (70-110)
--- NOTE | 2024-03-18 21:43 | EEG ---
ELECTROENCEPHALOGRAM REPORT CLINICAL HISTORY: This is a 78-year-old gentleman with history of stroke, seizure, who has altered mental status. The video EEG is obtained to evaluate for seizure epileptiform activity. RELEVANT MEDICATION: Ativan. EEG TYPE: A routine 21-channel EEG with video using the 10/20 electrode placement system. DESCRIPTION: Background consists of [id number] voltage of 6 to 7 hertz activity. At times, the background consists of diffuse delta intermixed with theta activity. There is no focal slowing. Interictal and ictal is none. ACTIVATION PROCEDURE: Photic stimulation and hyperventilation are not performed. CLINICAL INTERPRETATION: This is an abnormal routine EEG. The background slowing is suggestive of moderate encephalopathy. There is no focal slowing, epileptiform discharge, or seizure on the EEG. Clinical correlation is recommended. MMSOCRATESL / SELVINN: [id number] /
[2024-03-18] MEDS: LACTULOSE 20 GM/30 ML CUP PO PRN (21:50)
[2024-03-19 06:12] LABS: Glucose,Whole Blood 163 mg/dL (70-110)
[2024-03-19 11:42] LABS: Glucose,Whole Blood 138 mg/dL (70-110)
--- NOTE | 2024-03-19 12:25 | P.PN ---
Subjective patient is seen for follow-up for end-stage renal disease. Patient has been started on hemodialysis this admission on 03/05/2024. patient is seen on hemodialysis. Tolerating treatment well. plans for discharge today after dialysis. Objective - Vital Signs Vital signs: Vital Signs Temp 98.4 F 03/19/24 02:33 Pulse 66 03/19/24 09:12 Resp 17 03/19/24 09:12 BP 127/62 03/19/24 08:21 Pulse Ox 93 L 03/19/24 08:21 FiO2 Intake & Output 03/18/24 03/19/24 03/19/24 18:59 06:59 18:59 Output Total 225 100 Balance -225 -100 Weight 95 kg Output: Urine 225 100 Uretheral (Hu) 225 Other: Voiding Method Indwelling Catheter Toilet Toilet Urinal Urinal - Exam patient is awake, comfortable, no acute distress. Examination of the heart S1 and S2 Examination of the lungs decreased breath sounds at the bases Abdomen is soft nontender Examination of lower extremities shows no significant edema FACSIMILE OPERATOR exam shows patient is able to move all 4 extremities. - Labs CBC & Chem 7: 03/17/24 06:45 03/17/24 06:45 Labs: Abnormal Lab Results - Last 24 Hours (Table) 03/18/24 03/18/24 03/19/24 Range/Units 17:12 21:00 06:10 POC Glucose (mg/dL) 218 H 113 H 163 H (70-110) mg/dL 03/19/24 Range/Units 11:40 POC Glucose (mg/dL) 138 H (70-110) mg/dL Assessment and Plan Assessment: 1. Chronic kidney disease stage V secondary to diabetic kidney disease, now end-stage renal disease. Patient underwent wavelinq AV fistula surgery February 16, 2024 and is being followed by vascular surgery for a pseudoaneurysm which has resolved. . 2. Volume overload. improved. 3. Diabetes mellitus. 4. Hypertensive emergency. Blood pressure now better controlled. 5. Metabolic acidosis secondary to chronic kidney disease maintained on oral bicarb. Stable. 6. Acute on chronic diastolic CHF. currently stable. Plan: patient is stable for discharge post hemodialysis. Follow-up as outpatient for hemodialysis on Thursday schedule.
[2024-03-19 14:01] VITALS: PULSE 65
--- NOTE | 2024-03-19 14:48 | P.PN ---
Subjective Progress Note Date: 03/19/24 I am following-up with patient and per the daughter the patient is doing well and is hoping he will be discharged today. Objective - Vital Signs Vital signs: Vital Signs Temp 98.3 F 03/19/24 13:25 Pulse 65 03/19/24 13:25 Resp 17 03/19/24 13:25 BP 165/62 03/19/24 13:25 Pulse Ox 97 03/19/24 13:25 FiO2 Intake & Output 03/18/24 03/19/24 03/19/24 18:59 06:59 18:59 Output Total 225 100 Balance -225 -100 Weight 95 kg Output: Urine 225 100 Uretheral (Hu) 225 Other: Voiding Method Indwelling Catheter Toilet Toilet Urinal Urinal - Exam General: Lying in bed and is not in acute distress. Is getting dialysis. Neuro: The patient is awake, alert, oriented to self. He is following few simple command and had to repeat some of the commands (closing eyes, sticking tongue out, showing thumbs up). No facial weakness. Motor: Strength is hard to assess individual muscle strength but lifting bilateral uppers above gravity. Is wiggling toes. Some of the work-up during this hospital visit consisted of: Patient has anemia during this hospital visit on presentation he has 10.7 most recent 1 is 8.0 POC glucose has been in the range of 120s to 250s. Sodium is within normal limits TSH is 3.370 Urine analysis seems suggestive of urinary track infection. CT of the head shows old parietal occipital watershed infarct larger on the left. Old parietal occipital subcortical infarct. No acute intracranial process evident. Reviewed the CT and I agree there is no acute or subacute stroke. Carotid duplex: No significant flow limiting stenosis internal carotid artery origins based on velocity. Routine EEG: Is abnormal. The background slowing is suggestive of moderate encephalopathy. There is no focal slowing, epileptiform discharges or seizure on the EEG. - Labs CBC & Chem 7: 03/17/24 06:45 03/17/24 06:45 Labs: Abnormal Lab Results - Last 24 Hours (Table) 03/18/24 03/18/24 03/19/24 Range/Units 17:12 21:00 06:10 POC Glucose (mg/dL) 218 H 113 H 163 H (70-110) mg/dL 03/19/24 Range/Units 11:40 POC Glucose (mg/dL) 138 H (70-110) mg/dL Assessment and Plan Assessment: This is a 78-year-old gentleman who presented emergency department on 03/04/2024 because of dyspnea and it seems the patient ran out of his blood pressure medication for 1 week. Today the family felt he had right facial weakness but the nurse did not appreciated so primary wanted neurology to evaluate the pat ient. Seen the patient I did not appreciate any facial weakness Reported transient right facial weakness seen by family members yesterday. It was not appreciated by nurse or primary attending. Cannot rule out TIA vs due to acute recent acute UTI and metabolic deragement giving him old stroke sym ptoms. CT head ins negative for acute stroke. Acute pulmonary edema Acute on chronic congestive heart failure Hematuria Acute anemia Acute urinary tract infection Status seems due to metabolic encephalopathy as well as acute UTI. History of multiple strokes in the past History of probable seizure and is on Keppra History of left ICA stenosis and the patient was following up with intervention neurologist, Dr. Centeno Reported cognitive impairment. Per the nurse his baseline is oriented X1. Chronic renal insufficiency stage V and is on dialysis Diabetes, he is on insulin and his diabetes is not controlled Hypertension Hyperlipidemia Plan: If continues to have neurological issues then will proceed with MRI. Patient is on aspirin 81 mg daily, Eliquis 2.5 mg twice daily And Lipitor 20 mg nightly Continue neurochecks Cardiac monitoring Will defer the rest of the medical management to primary and other specialist Recommend the patient to follow-up with neurologist as outpatient within 2 weeks The plan discussed with the patient's daughter who is at bedside. Time with Patient: Less than 30
--- NOTE | 2024-03-19 15:51 | P.DS ---
Providers Date of admission: 03/04/24 08:04 Expected date of discharge: 03/19/24 Attending physician: Tadeo Dickerson Consults: 03/04/24 13:59 Consult Physician Routine Consulting Provider: Irving Angeles Consult Reason/Comments: JAMAAL, ESRF Do you want consulting provider notified?: Yes 03/06/24 09:42 Consult Physician Stat Consulting Provider: Soham Obrien Consult Reason/Comments: permacath insertion Do you want consulting provider notified?: Yes 03/12/24 12:10 Consult Physician Routine Consulting Provider: Rip Apple Consult Reason/Comments: hematuria Do you want consulting provider notified?: Yes 03/17/24 12:50 Consult Physician Stat Consulting Provider: Jf Hall Consult Reason/Comments: face droop Do you want consulting provider notified?: Yes Primary care physician: [facility] Course: Chief Complaint: Short of breath This is a 78-year-old, Guyanese-speaking patient of Dr. Santana. Chronic stable medical conditions include hyperlipidemia, diabetes, obstructive sleep apnea, osteoarthritis, kidney stones, cognitive impairment-dementia. 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 Had a loop recorder seizures. Visit his and daughter. Not a good historian Patient follows with gold leaf layer Dr. Stevens. Patient was sent down to [place], where he underwent Endo fistula placement by -around February 16.. Developed mid left brachial aneurysm. Patient seen earlier today, accompanied by his and daughter Alannah Niño. For 2 days patient been having increasing shortness of breath. Decreased appetite. Normally has about 2-3 loose stools a day. Does wear depends. Patient himself is not a good historian. Denies any chest pain. Tired. Daug hter really helps with being this For this Guyanese-speaking gentleman/father. Slight edema. No fever no chills March 05: Laying in bed. is present. Patient did eat some. Blood pressure is better. Some improvement in shortness of breath. Currently no dialysis per nephrology. March 06: Laying in bed. Family at the bedside. Nephrology has decided to proceed with dialysis. Dr. Obrien this afternoon placed dialysis catheter. Appetite decreased. Blood pressure controlled. Patient confirmed-full code March 07: Patient had his first dialysis today. 1.5 L removed. Up in a chair. Eating better. at the bedside. March 08: Second hemodialysis today. Breathing a bit better. Did eat some diet. present. March 09: Did not sleep too well last night. Sleepy this morning. Oral intake variable. Due for next dialysis tomorrow. Ensure added. March 10: Decreased oral intake. Spoke to family members at the bedside. I personally fed the patient. Easily ate 3 teaspoons of food. Told him to be more persistent. There is a questionable UTI given that patient had a Hu catheter. Will give IV ceftriaxone. Spoke to social work msw. Earliest chair time available is next Thursday. Note patient Accu-Chek dropped to 49 this morning. Will DC Levemir. March 11: Patient more awake today. Communicating much better. Sleep hygiene explained to the nurse. Improved patient circadian rhythm. Will add scheduled 4 units NovoLog with meals. Discharge patient over the weekend once chair time is confirmed and cleared by nephrology. 03/12. Patient seen and examined. Patient had a Hu placed yesterday, currently having hematuria. Patient also had swelling and tenderness of his penis 03/13. Patient seen and examined. Lab work done this morning showed W6.2, hemoglobin 8, platelet count 248, sodium 132, potassium 4.3. Still having hematuria, will hold Eliquis for now 03/14. Patient seen and examined. Hemoglobin this morning is 8.4. Patient is lethargic this morning. Getting dialysis today 03/15. Patient seen and examined. Continues to have hematuria but mostly old blood clots. Patient is more alert compared to yesterday, 03/16. Patient seen and examined patient is more alert and answering questions. Blood pressure on the lower side, started on midodrine. Hematuria improved March 17: Spoke to the nurse. Patient have to leave after dialysis on Thursday. As outpatient dialysis will not be started on the weekend. Later the nurse called me that family had noticed some drooping of the face. Stat CT scan was ordered including neurology consult. No evidence of new stroke. Old stroke was seen. Oral intake fluctuating. Plan is for patient to go home March 18: Patient eating rather well being fed with the family. CT scan results discussed with the and daughter Kiana on the phone. Several questions were answered. Also early discussed with Dr. HALL from neurology. Patient is already on aspirin and Eliquis. Several questions were answered. Patient will be discharged after dialysis tomorrow. Crease NovoLog to 7 units with meals Time spent about 50 minutes today with over 40 minutes of discussion March 19: Got hemodialyzed today. Will be discharged. Medications reviewed. Will start his dialysis on Thursday. Outpatient Discussion and discharge planning more than 35 minutes Past medical history to include: Diabetes, hyperlipidemia, hypertension, obstructive sleep apnea, osteoarthritis, kidney stones, cognitive impairment, stroke hypertension with right-sided weakness, depression, seizure Social history: No history of smoking or alcohol. Lives with his and daughter. Does use a walker. Daughter is the POA Physical examination: VITAL SIGNS: 98.3, 65, 17, 165 x 62, 97% room air GENERAL: Resting in bed. Comfortable EYES: Pupils equal. Conjunctiva normal. HEENT: External appearance of nose and ears normal, oral cavity grossly normal. NECK: JVD not raised; masses not palpable. HEART: First and second heart sounds are normal; minimal edema. EXTREMITY: Some swelling in bruising along the inner side on the left arm especially upper arm. Slight tenderness. LUNGS: Respiratory rate normal; breath sounds. ABDOMEN: Soft, no tenderness no guarding rigidity, liver spleen not palpable, no masses palpable. PSYCH: Able to answer simple questions NEUROLOGICAL: [Cranial nerves grossly intact; no facial asymmetry, power 4/5 on the right side INVESTIGATIONS, reviewed in the clinical context: EEG suggestive of encephalopathy. No epileptiform activity CT brain [March 17] old parietal occipital watershed infarct larger on the left. Old parietal-occipital subcortical infarct. No acute event reported March 17: White count 9.4 hemoglobin 8 platelets 268 potassium 3.9 creatinine 3.6 March 04, 2024: White count 7.1 hemoglobin 10.7 platelets 219 sodium 135 potassium 4.4 BUN 45 creatinine 3.94 bicarb 17 Troponin I less than 0.0130.015 EKG tracing personally reviewed by me-normal sinus rhythm. Some nonspecific T wave changes. Chest x-ray film personally reviewed by me-a bit underpenetrated. Cardiomegaly. Pulm edema Previous labs 2D echocardiogram: [November 2023] EF 65 to 70%. Creatinine 2.46 on January 2023 Assessment and plan: -Acute pulmonary edema a combination of possible CHF and worsening renal function: Resolved Followed by nephrology and cardiology. Received IV Lasix. Fluid restriction Started on hemodialysis -Family noticed some facial asymmetry.: Possible TIA CT scan of the brain ordered. Showed evidence of old infarct. Neurology following already on aspirin and Eliquis. 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 Neck 1.4 mm, following Endo vascular fistula creation by in the left arm. 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 Uncontrolled with hyperglycemia NovoLog to 7 units AC 3 times daily -Depression otherwise specified Cymbalta -Hyperlipidemia On Lipitor -End-stage kidney disease hypertensive nephrosclerosis and diabetic nephropathy Follows with Dr. Stevens Now on dialysis -Chronic gait dysfunction uses a walker at home -Full code [Advance care planning discussed on March 04, 2024] Patient's daughter Penny who is the POA, was present so was the and the patient. Daughter was helping interpret the questions. Patient's overall condition was discussed at length. Patient has previously expressed himself to be DNR. is more inclined to be full code. Lengthy discussion was held. They will further discuss the same and get back and let us know if things are to be different. At present time patient remains to be full code.-Time spent about 30 minutes Disposition: Home Past Medical History Past Medical History: CVA/TIA, Diabetes Mellitus, Hyperlipidemia, Hypertension, Liver Disease, Renal Disease, Sleep Apnea/CPAP/BIPAP Additional Past Medical History / Comment(s): ARTHRITIS, kidney stones, possible dementia, kidney failure, neuropathy alia legs, carpal tunnel. CVA-jul 17 balance issues,speech impairment,vision impairment, receives injections to eyes r/t bleeding ,COVID 07/28/2022 History of Any Multi-Drug Resistant Organisms: None Reported Past Surgical History: Back Surgery Additional Past Surgical History / Comment(s): MASS REMOVED FROM BACK OF HEAD, eye surgery, Past Anesthesia/Blood Transfusion Reactions: No Reported Reaction Past Psychological History: Depression Smoking Status: Never smoker Past Alcohol Use History: None Reported Past Drug Use History: None Reported Plan - Discharge Summary Discharge Rx Participant: Yes New Discharge Prescriptions: New Aspirin 81 mg PO DAILY tab Apixaban [Eliquis] 2.5 mg PO BID #60 tab Isosorbide Mononitrate [Imdur] 120 mg PO DAILY #30 tab Midodrine HCl [ProAmatine] 10 mg PO TID #90 tablet Continue DULoxetine HCL [Cymbalta] 30 mg PO HS levETIRAcetam [Keppra] 500 mg PO BID Atorvastatin [Lipitor] 20 mg PO HS Vitamin E 400 unit PO DAILY carvediloL [Coreg*] 12.5 mg PO BID-W/MEALS #60 tab Ergocalciferol (Vitamin D2) [Drisdol (50,000 Iu)] 1,250 mcg PO MO NIFEdipine XL [Procardia XL] 60 mg PO BID Changed Insulin Aspart [NovoLOG Flexpen] 8 units SQ AC-TID #0 Discontinued Isosorbide Mononitrate ER [Imdur] 60 mg PO DAILY Clopidogrel [Plavix] 75 mg PO DAILY #30 tab Insulin Glargine,Hum.rec.anlog [Lantus Solostar Pen] 30 units SQ DAILY #0 Furosemide [Lasix] See Taper PO DAILY Insulin Aspart [NovoLOG Flexpen] 10 units SQ AC-BID@0800,1200 Insulin Aspart [NovoLOG Flexpen] See Protocol SQ TID-W/MEALS PRN PRN Reason: HIGH BLOOD SUGAR Sodium Bicarbonate Tab 650 mg PO BID #30 tab Discharge Medication List DULoxetine HCL [Cymbalta] 30 mg PO HS 03/13/16 [History] levETIRAcetam [Keppra] 500 mg PO BID 12/11/20 [History] Atorvastatin [Lipitor] 20 mg PO HS 07/18/21 [History] Vitamin E 400 unit PO DAILY 11/10/21 [History] carvediloL [Coreg*] 12.5 mg PO BID-W/MEALS #60 tab 12/08/23 [Rx] Ergocalciferol (Vitamin D2) [Drisdol (50,000 Iu)] 1,250 mcg PO MO 02/24/24 [History] NIFEdipine XL [Procardia XL] 60 mg PO BID 03/04/24 [History] Apixaban [Eliquis] 2.5 mg PO BID #60 tab 03/19/24 [Rx] Aspirin 81 mg PO DAILY tab 03/19/24 [Rx] Insulin Aspart [NovoLOG Flexpen] 8 units SQ AC-TID #0 03/19/24 [Rx] Isosorbide Mononitrate [Imdur] 120 mg PO DAILY #30 tab 03/19/24 [Rx] Midodrine HCl [ProAmatine] 10 mg PO TID #90 tablet 03/19/24 [Rx] Follow up Appointment(s)/Referral(s): Dennis Santana DO [Primary Care Provider] - 1-2 days (Office is closed at time of discharge. Please call for follow-up appointment.) [facility] [NON-STAFF] - [facility], [NON-STAFF] - Activity/Diet/Wound Care/Special Instructions: Hemodialyis - Keegan Ojeda - Thursday, , Thursday @07:00 a.m. - arrive time 06:30 a.m. First date of outpatient treatment 03/22/24 Patient requires a hospital bed at discharge to keep head of bed elevated greater than 30 degrees to manage shortness of breath from CHF Patient requires a bedside commode at discharge as he is room confined due to unsteady gait/CHF Patient requires a transport chair at discharge to assist with managing ADLs that cannot be performed with a cane/walker due to unsteady gait/CHF. Patient cannot self propel and will have a caregiver to propel the chair
[2024-03-19 18:52] VITALS: BP 150/62; RESP 16; TEMP 97.9
--- NOTE | 2024-03-19 22:37 | P.PN ---
Subjective Hu catheter was removed yesterday, patient is able to void with a PVR of 250- 300ml Objective - Vital Signs Vital signs: Vital Signs Temp 97.9 F 03/19/24 18:50 Pulse 65 03/19/24 18:50 Resp 16 03/19/24 18:50 BP 150/62 03/19/24 18:50 Pulse Ox 97 03/19/24 13:25 FiO2 Intake & Output 03/19/24 03/19/24 03/20/24 06:59 18:59 06:59 Intake Total 500 Output Total 2100 Balance -1600 Weight 95 kg Intake: Hemodialysis 500 Output: Urine 100 Hemodialysis 2000 Other: Voiding Method Toilet Toilet Urinal Urinal - Constitutional General appearance: Present: no acute distress - Gastrointestinal General gastrointestinal: Present: soft. Absent: distended, tenderness - Labs CBC & Chem 7: 03/17/24 06:45 03/17/24 06:45 Labs: Abnormal Lab Results - Last 24 Hours (Table) 03/19/24 03/19/24 Range/Units 06:10 11:40 POC Glucose (mg/dL) 163 H 138 H (70-110) mg/dL Assessment and Plan Assessment: 78-year-old history of gross hematuria, occurred following catheter insertion. Urine is mainly consistent of old blood right now. Hemoglobin is stable. Most likely hematuria secondary to trauma from catheterization. He did have a CT abdomen pelvis in November that showed evidence of prostatic enlargement, but no abnormality within the bladder or the kidney. Hematuria resolved, catheter was removed yesterday he is able to void with slight elevation of PVR. Patient is hemodialysis dependent but is making urine. At this point catheter can stay out if his postvoid residual is less than 400 mL, we will start Flomax to improve voiding, from urology standpoint he is stable for discharge
== END 2024-03-19 15:57 | disposition home health service (06) | DRG 291 ==
LOC: EC 06:00 → 3SCARD 08:04 → 3NCARDOBS 03-14 00:50 → 3SCARD 03-14 00:54 → 4SSUR 03-16 14:23
PROVIDERS: ADMIT Hospitalist; ATTEND Hospitalist
PROC: 02HV33Z Insertion of Infusion Device into Superior Vena Cava, Percutaneous Approach (ICD-10-PCS; principal; 2024-03-06 14:17)
PROC: 0JH63XZ Insertion of Tunneled Vascular Access Device into Chest Subcutaneous Tissue and Fascia, Percutaneous Approach (ICD-10-PCS; principal; 2024-03-06 14:17)
PROC: 5A1D70Z Performance of Urinary Filtration, Intermittent, Less than 6 Hours Per Day (ICD-10-PCS; 2024-03-06 14:17)
PROC: 0VNTXZZ Release Prepuce, External Approach (ICD-10-PCS; 2024-03-13)
DX: I13.2 Hypertensive heart and chronic kidney disease with heart failure and with stage 5 chronic kidney disease, or end stage renal disease (principal); G93.41 Metabolic encephalopathy; T83.511A Infection and inflammatory reaction due to indwelling urethral catheter, initial encounter; N39.0 Urinary tract infection, site not specified; I50.33 Acute on chronic diastolic (congestive) heart failure; N18.6 End stage renal disease; N17.9 Acute kidney failure, unspecified; E87.20 Acidosis, unspecified; I69.351 Hemiplegia and hemiparesis following cerebral infarction affecting right dominant side; F01.53 Vascular dementia, unspecified severity, with mood disturbance; F01.54 Vascular dementia, unspecified severity, with anxiety; I16.1 Hypertensive emergency; E11.41 Type 2 diabetes mellitus with diabetic mononeuropathy; E11.649 Type 2 diabetes mellitus with hypoglycemia without coma; D63.1 Anemia in chronic kidney disease; G40.909 Epilepsy, unspecified, not intractable, without status epilepticus; I48.91 Unspecified atrial fibrillation; E11.22 Type 2 diabetes mellitus with diabetic chronic kidney disease; E11.65 Type 2 diabetes mellitus with hyperglycemia; F32.A Depression, unspecified; I65.22 Occlusion and stenosis of left carotid artery; K76.9 Liver disease, unspecified; Z68.31 Body mass index [BMI] 31.0-31.9, adult; E66.3 Overweight; Z99.2 Dependence on renal dialysis; Z79.4 Long term (current) use of insulin; Z28.310 Unvaccinated for COVID-19; I69.328 Other speech and language deficits following cerebral infarction; I69.398 Other sequelae of cerebral infarction; I69.318 Other symptoms and signs involving cognitive functions following cerebral infarction; G57.93 Unspecified mononeuropathy of bilateral lower limbs; E78.5 Hyperlipidemia, unspecified; I25.10 Atherosclerotic heart disease of native coronary artery without angina pectoris; G47.33 Obstructive sleep apnea (adult) (pediatric); H53.9 Unspecified visual disturbance; K59.00 Constipation, unspecified; R29.810 Facial weakness; R31.0 Gross hematuria; N47.2 Paraphimosis; E61.1 Iron deficiency; N40.0 Benign prostatic hyperplasia without lower urinary tract symptoms; M19.90 Unspecified osteoarthritis, unspecified site; R26.9 Unspecified abnormalities of gait and mobility; Z79.02 Long term (current) use of antithrombotics/antiplatelets; Z79.899 Other long term (current) drug therapy; Z86.16 Personal history of COVID-19; Z71.3 Dietary counseling and surveillance; Y84.6 Urinary catheterization as the cause of abnormal reaction of the patient, or of later complication, without mention of misadventure at the time of the procedure
CPT/HCPCS: 36415; 36558; 70450; 71045; 71046; 76937; 77001; 80048; 80053; 81001; 82728; 83540; 83550; 83735; 83880; 84100; 84443; 84484; 85025; 85027; 85610; 85730; 86706; 87340; 90935; 93005; 93880; 94760; 95816; 96374; 96375; 96376; 99291

== ENCOUNTER 2024-03-21 08:12 | Emergency (ER) | payer MEDICARE, OTHER ==
--- NOTE | 2024-03-21 08:23 | ED ---
Recheck HPI - General Chief Complaint: Recheck/Abnormal Lab/Rx Stated Complaint: Hypertension Time Seen by Provider: 03/21/24 08:13 Source: patient, family, EMS, RN notes reviewed Mode of arrival: EMS Limitations: language barrier - History of Present Illness Initial Comments: This is a 78-year-old male who presents to the emergency department for elevated blood pressure. Patient was discharged from the hospital 2 days ago after being admitted on 03/04 for shortness of breath. He was diagnosed with new onset A-fib, CHF exacerbation, and also started on emergency dialysis. His states that this morning she checked his blood pressure and it was 210/107, prompting her to call EMS. However, patient had not taken his blood pressure medication that morning. Since going home, he has otherwise been doing fine. Patient has no complaints. Of note, patient was started on midodrine due to hypotension he had experienced while in the hospital. Family states that he has not taken any of this since being home. He was also advised to take this only when his blood pressure is below 140 systolically and during dialysis days. Additionally, they have not picked up the Imdur or Eliquis from the pharmacy yet. - Related Data Home Medications Medication Instructions Recorded Confirmed DULoxetine HCL [Cymbalta] 30 mg PO HS 03/13/16 03/04/24 levETIRAcetam [Keppra] 500 mg PO BID 12/11/20 03/04/24 Atorvastatin [Lipitor] 20 mg PO HS 07/18/21 03/04/24 Vitamin E 400 unit PO DAILY 11/10/21 03/04/24 Ergocalciferol (Vitamin D2) 1,250 mcg PO MO 02/24/24 03/04/24 [Drisdol (50,000 Iu)] NIFEdipine XL [Procardia XL] 60 mg PO BID 03/04/24 03/04/24 Previous Rx's Medication Instructions Recorded carvediloL [Coreg*] 12.5 mg PO BID-W/MEALS #60 tab 12/08/23 Apixaban [Eliquis] 2.5 mg PO BID #60 tab 03/19/24 Aspirin 81 mg PO DAILY tab 03/19/24 Insulin Aspart [NovoLOG Flexpen] 8 units SQ AC-TID #0 03/19/24 Isosorbide Mononitrate [Imdur] 120 mg PO DAILY #30 tab 03/19/24 Midodrine HCl [ProAmatine] 10 mg PO TID #90 tablet 03/19/24 Allergies Allergy/AdvReac Type Severity Reaction Status Date / Time No Known Allergies Allergy Verified 03/04/24 08:24 Review of Systems ROS Statement: Those systems with pertinent positive or pertinent negative responses have been documented in the HPI. ROS Other: All systems not noted in ROS Statement are negative. Past Medical History Past Medical History: CVA/TIA, Diabetes Mellitus, Hyperlipidemia, Hypertension, Liver Disease, Renal Disease, Sleep Apnea/CPAP/BIPAP Additional Past Medical History / Comment(s): ARTHRITIS, kidney stones, possible dementia, kidney failure, neuropathy alia legs, carpal tunnel. CVA-jul 17 balance issues,speech impairment,vision impairment, receives injections to eyes r/t bleeding ,COVID 07/28/2022 History of Any Multi-Drug Resistant Organisms: None Reported Past Surgical History: Back Surgery, Cholecystectomy Additional Past Surgical History / Comment(s): MASS REMOVED FROM BACK OF HEAD, eye surgery, Past Anesthesia/Blood Transfusion Reactions: No Reported Reaction Past Psychological History: Depression Smoking Status: Never smoker Past Alcohol Use History: None Reported Past Drug Use History: None Reported - Past Family History Father Family Medical History: Diabetes Mellitus Mother Family Medical History: Diabetes Mellitus Brother(s) Family Medical History: Cancer Sister(s) Family Medical History: Cancer General Exam Limitations: language barrier General appearance: alert, in no apparent distress Head exam: Present: atraumatic, normocephalic, normal inspection Eye exam: Present: normal appearance, PERRL, EOMI. Absent: scleral icterus, conjunctival injection, periorbital swelling Respiratory exam: Present: normal lung sounds bilaterally. Absent: respiratory distress, wheezes, rales, rhonchi, stridor Cardiovascular Exam: Present: regular rate, normal rhythm, normal heart sounds. Absent: systolic murmur, diastolic murmur, rubs, gallop, clicks Neurological exam: Present: alert, oriented X3, CN II-XII intact Psychiatric exam: Present: normal affect, normal mood Skin exam: Present: warm, dry, intact, normal color. Absent: rash Course Vital Signs 03/21/24 03/21/24 03/21/24 08:16 09:10 11:36 Temperature 98.5 F 96.1 F L 98.3 F Pulse Rate 63 62 62 Respiratory 17 16 16 Rate Blood Pressure 196/74 206/71 195/85 O2 Sat by Pulse 96 96 99 Oximetry Medical Decision Making - Medical Decision Making This is a 78 year old male who presents to the emergency department for elevated blood pressure. Was pt. sent in by a medical professional or institution? @ -No Did you speak to anyone other than the patient for history? @ -His family provided the majority of the information. Did you review nursing and triage notes? @ -Yes, and I agree, it is accurate with regards to the patient's symptoms. Were old charts reviewed? @ -Discharge summary from 03/19/2024 discussing patient's admission beginning on 03/04 at which time he was treated for CHF exacerbation, new onset A-fib, and r equired emergency dialysis. Differential Diagnosis? @ -Differential Elevated BP: Medication error, infection, machine error, renal artery stenosis, this is not meant to be an all-inclusive list. EKG interpreted by me (3pts min.)? @ -EKG interpreted by me demonstrating the following: Sinus rhythm. Ventricular rate 61 bpm, CT interval 166 ms, QRS duration 98 ms, QTc 407 ms. X-rays interpreted by me (1pt min.)? @ -Not obtained CT interpreted by me (1pt min.)? @ -Not obtained U/S interpreted by me (1pt. min.)? @ -Not obtained What testing was considered but not performed? (CT, X-rays, U/S, labs)? Why? @ -None What meds were considered but not given? Why? @ -None Did you discuss the management of the patient with other professionals? @ -No Did you reconcile home meds? @ -No Was smoking cessation discussed for >3mins.? @ -No Was critical care preformed (if so, how long)? @ -No Were there social determinants of health that impacted care today? How? (Homelessness, low income, unemployed, alcoholism, drug addiction, transportation, low edu. Level, literacy, decrease access to med. care, nursing home, rehab)? @ -No Was there de-escalation of care discussed even if they declined? (Discuss DNR or withdrawal of care, Hospice)? @ -No What co-morbidities impacted this encounter? (DM, HTN, Smoking, COPD, CAD, Cancer, CVA, Hep., AIDS, mental health diagnosis, sleep apnea, morbid obesity)? @ -CHF, renal failure, a-fib, DM, HTN Was patient admitted / discharged? @ -Discharged. Lab work fairly unremarkable. Decreased renal function is stable when compared with prior and patient's known history of renal failure on dialysis. Max BP while in the emergency department was 206/71. Patient given his home dose of blood pressure medications that he had not yet taken including Procardia, Imdur, and Coreg. BP did start to improve to the 180s systolically while in the emergency department. Discussed with the family that we do not want to acutely lower this more while in the emergency department due to risks associated with that. Patient will follow-up with dialysis as scheduled tomorrow and I advised continuing to monitor his blood pressure closely at home and discuss these values with his primary care provider and cord cutter in the event any medication adjustments are needed. Undiagnosed new problem with uncertain prognosis? @ -None Drug Therapy requiring intensive monitoring for toxicity (Heparin, Nitro, Insulin, Cardizem)? @ -None Were any procedures done? @ -None Diagnosis/symptom? @ -Hypertension Acute, or Chronic, or Acute on Chronic? @ -Chronic Uncomplicated (without systemic symptoms) or Complicated (systemic symptoms)? @ -Uncomplicated Side effects of treatment? @ -None Exacerbation, Progression, or Severe Exacerbation] @ -Exacerbation Poses a threat to life or bodily function? @ -Not at this time Return precautions reviewed in depth, the patient is instructed to return to the emergency department with any new, worsening, or concerning symptoms. Patient's family verbalized understanding. This case was discussed in detail with the attending ED physician, Dr. Partida. Presentation, findings, and treatment plan discussed in detail as well. - Lab Data Result diagrams: 03/21/24 08:33 03/21/24 08:33 Lab Results 03/21/24 03/21/24 Range/Units 08:33 08:33 WBC 5.6 (3.8-10.6) k/uL RBC 2.89 L (4.30-5.90) m/uL Hgb 8.4 L (13.0-17.5) gm/dL Hct 26.8 L (39.0-53.0) % MCV 92.9 (80.0-100.0) fL MCH 29.2 (25.0-35.0) pg MCHC 31.4 (31.0-37.0) g/dL RDW 13.7 (11.5-15.5) % Plt Count 290 (150-450) k/uL MPV 8.0 Neutrophils % 62 % Lymphocytes % 25 % Monocytes % 8 % Eosinophils % 2 % Basophils % 1 % Neutrophils # 3.5 (1.3-7.7) k/uL Lymphocytes # 1.4 (1.0-4.8) k/uL Monocytes # 0.5 (0-1.0) k/uL Eosinophils # 0.1 (0-0.7) k/uL Basophils # 0.0 (0-0.2) k/uL Sodium 136 L (137-145) mmol/L Potassium 4.0 (3.5-5.1) mmol/L Chloride 103 (98-107) mmol/L Carbon Dioxide 31 H (22-30) mmol/L Anion Gap 2 mmol/L BUN 20 (9-20) mg/dL Creatinine 3.08 H (0.66-1.25) mg/dL Est GFR (CKD-EPI)AfAm 21 (>60 ml/min/1.73 sqM) Est GFR (CKD-EPI)NonAf 19 (>60 ml/min/1.73 sqM) Glucose 118 H (74-99) mg/dL Calcium 8.2 L (8.4-10.2) mg/dL Total Bilirubin 0.4 (0.2-1.3) mg/dL AST 25 (17-59) U/L ALT 11 (4-49) U/L Alkaline Phosphatase 108 (38-126) U/L Total Protein 5.2 L (6.3-8.2) g/dL Albumin 2.7 L (3.5-5.0) g/dL Disposition Clinical Impression: Hypertension Disposition: HOME SELF-CARE Instructions (If sedation given, give patient instructions): Hypertension (ED) Additional Instructions: Return to the emergency department with any new, worsening, or concerning sy mptoms. Follow up with your primary care provider in 1-2 days. Is patient prescribed a controlled substance at d/c from ED?: No Referrals: Dennis Santana DO [Primary Care Provider] - 1-2 days Time of Disposition: 10:49
[2024-03-21 08:47] LABS: Basophils % (A) 1 %; Eosinophils # (A) 0.1 k/uL (0-0.7); Eosinophils % (A) 2 %; HCT 26.8 % (39.0-53.0); HGB 8.4 gm/dL (13.0-17.5); Lymphocytes # (A) 1.4 k/uL (1.0-4.8); Lymphocytes % (A) 25 %; MCH 29.2 pg (25.0-35.0); MCHC 31.4 g/dL (31.0-37.0); MCV 92.9 fL (80.0-100.0); Monocytes # (A) 0.5 k/uL (0-1.0); Monocytes % (A) 8 %; Neutrophils # (A) 3.5 k/uL (1.3-7.7); Neutrophils % (A) 62 %; Platelet Count 290 k/uL (150-450); RBC 2.89 m/uL (4.30-5.90); RDW 13.7 % (11.5-15.5); WBC 5.6 k/uL (3.8-10.6)
[2024-03-21 09:06] LABS: ALT 11 U/L (4-49); AST 25 U/L (17-59); African American GFR (CKD) 21 (>60 ml/min/1.73 sqM); Albumin 2.7 g/dL (3.5-5.0); Alkaline Phosphatase 108 U/L (38-126); Anion Gap 2 mmol/L; Blood Urea Nitrogen 20 mg/dL (9-20); Calcium 8.2 mg/dL (8.4-10.2); Carbon Dioxide 31 mmol/L (22-30); Chloride 103 mmol/L (98-107); Glucose 118 mg/dL (74-99); Non-African American GFR(CKD) 19 (>60 ml/min/1.73 sqM); Sodium 136 mmol/L (137-145); Total Bilirubin 0.4 mg/dL (0.2-1.3); Total Protein 5.2 g/dL (6.3-8.2)
[2024-03-21] MEDS: carvediloL 12.5 MG TAB PO STA (09:09)
[2024-03-21] MEDS: ISOSORBIDE MONONITRATE ER 60 MG TAB.ER.24H PO STA (09:09)
[2024-03-21 09:14] VITALS: PULSE 62; RESP 16
[2024-03-21 11:40] VITALS: BP 195/85; TEMP 98.3
== END 2024-03-21 11:52 | disposition home or self-care (01) ==
LOC: EC 08:12
DX: I10 Essential (primary) hypertension (principal)
CPT/HCPCS: 36415; 80053; 85025; 93005; 99284

== ENCOUNTER 2024-04-16 22:05 | Observation (INO) | payer MEDICARE, OTHER ==
--- NOTE | 2024-04-16 22:52 | ED ---
Chest Pain HPI - General Chief Complaint: Chest Pain Stated Complaint: Chest pain Time Seen by Provider: 04/16/24 22:34 Source: patient, family, RN notes reviewed, old records reviewed Mode of arrival: wheelchair Limitations: no limitations - History of Present Illness Initial Comments: This is a 78-year-old male to the ER for evaluation of cough chest pain chest pain with shortness of breath history of CHF history of heart disease. Patient began while he was in bed tonight with a episode of chest pain causing family to come to the bedside find him to be significant diaphoretic and brought to the emergency department for evaluation regards to this chest pain today. Patient has persistent although improved chest pain here in the ER with no shortness of breath currently MD Complaint: chest pain, other (Shortness of breath and diaphoresis) -: hour(s) Onset: during rest, during exertion, awoke with symptoms Pain Location: substernal, left chest Pain Radiation: LUE Severity: mild Severity scale (1-10): 2 Quality: aching, heaviness Consistency: constant Improves With: nothing Worsens With: nothing Anginal Symptoms: diaphoresis, dyspnea, sense of impending doom Other Symptoms: palpitations Treatments Prior to Arrival: none - Related Data Home Medications Medication Instructions Recorded Confirmed DULoxetine HCL [Cymbalta] 30 mg PO HS 03/13/16 04/17/24 levETIRAcetam [Keppra] 500 mg PO BID 12/11/20 04/17/24 Atorvastatin [Lipitor] 20 mg PO HS 07/18/21 04/17/24 Ergocalciferol (Vitamin D2) 1,250 mcg PO MO 02/24/24 04/17/24 [Drisdol (50,000 Iu)] NIFEdipine XL [Procardia XL] 60 mg PO BID 03/04/24 04/17/24 Acetaminophen Tab [Tylenol] 1,000 mg PO Q6HR PRN 04/17/24 04/17/24 Calcium Acetate 667 mg PO TID-W/MEALS 04/17/24 04/17/24 INSULIN ASPART (NovoLOG) [NovoLOG 10 unit SQ AC-BID@0900,1200 04/17/24 04/17/24 (formulary)] INSULIN ASPART (NovoLOG) [NovoLOG 12 unit SQ AC-SUPPER 04/17/24 04/17/24 (formulary)] Insulin Glargine [Lantus Vial] 20 unit SQ HS 04/17/24 04/17/24 Isosorbide Mononitrate ER [Imdur] 120 mg PO DAILY 04/17/24 04/17/24 Vit B Comp No.3/Folic/C/Biotin 1 tab PO TUTHSA@0900,2100 04/17/24 04/17/24 [Catie-Loly Rx Tablet] calcitrioL [Rocaltrol] 0.25 mcg PO MOWEFR 04/17/24 04/17/24 carvediloL [Coreg*] 12.5 mg PO BID 04/17/24 04/17/24 Previous Rx's Medication Instructions Recorded Apixaban [Eliquis] 2.5 mg PO BID #60 tab 03/19/24 Aspirin 81 mg PO DAILY tab 03/19/24 Famotidine [Pepcid] 20 mg PO DAILY #14 tablet 04/18/24 Torsemide [Demadex] 20 mg PO DAILY #30 tab 04/18/24 Allergies Allergy/AdvReac Type Severity Reaction Status Date / Time No Known Allergies Allergy Verified 04/17/24 11:09 Review of Systems ROS Statement: Those systems with pertinent positive or pertinent negative responses have been documented in the HPI. ROS Other: All systems not noted in ROS Statement are negative. EKG Findings - EKG Comments: EKG Findings:: EKG is sinus 80 HI 147 QRS 88 QTc 401 - EKG Results: EKG: interpreted by GABRIELD Past Medical History Past Medical History: CVA/TIA, Diabetes Mellitus, Hyperlipidemia, Hypertension, Liver Disease, Renal Disease, Sleep Apnea/CPAP/BIPAP Additional Past Medical History / Comment(s): ARTHRITIS, kidney stones, possible dementia, kidney failure, neuropathy alia legs, carpal tunnel. CVA-jul 17 balance issues,speech impairment,vision impairment, receives injections to eyes r/t bleeding ,COVID 07/28/2022 History of Any Multi-Drug Resistant Organisms: None Reported Past Surgical History: Back Surgery, Cholecystectomy Additional Past Surgical History / Comment(s): MASS REMOVED FROM BACK OF HEAD, eye surgery, Past Anesthesia/Blood Transfusion Reactions: No Reported Reaction Past Psychological History: Depression Smoking Status: Never smoker Past Alcohol Use History: None Reported Past Drug Use History: None Reported - Past Family History Father Family Medical History: Diabetes Mellitus Mother Family Medical History: Diabetes Mellitus Brother(s) Family Medical History: Cancer Sister(s) Family Medical History: Cancer General Exam Limitations: no limitations General appearance: alert, in no apparent distress, anxious Head exam: Present: atraumatic, normocephalic, normal inspection Eye exam: Present: normal appearance, PERRL, EOMI. Absent: scleral icterus, conjunctival injection, periorbital swelling ENT exam: Present: normal exam, mucous membranes moist Neck exam: Present: normal inspection. Absent: tenderness, meningismus, lymphadenopathy Respiratory exam: Present: normal lung sounds bilaterally. Absent: respiratory distress, wheezes, rales, rhonchi, stridor Cardiovascular Exam: Present: regular rate, normal rhythm, normal heart sounds. Absent: systolic murmur, diastolic murmur, rubs, gallop, clicks GI/Abdominal exam: Present: soft, normal bowel sounds. Absent: distended, tenderness, guarding, rebound, rigid Extremities exam: Present: normal inspection, full ROM, normal capillary refill. Absent: tenderness, pedal edema, joint swelling, calf tenderness Back exam: Present: normal inspection Neurological exam: Present: alert, oriented X3, CN II-XII intact Psychiatric exam: Present: normal affect, normal mood Skin exam: Present: warm, dry, intact, normal color. Absent: rash Course Vital Signs 04/16/24 04/16/24 04/17/24 22:06 23:44 02:00 Temperature 98.8 F Pulse Rate 80 70 99 Respiratory 18 18 18 Rate Blood Pressure 150/63 140/70 153/73 O2 Sat by Pulse 97 98 97 Oximetry 04/17/24 04:02 Temperature Pulse Rate 81 Respiratory 18 Rate Blood Pressure 148/65 O2 Sat by Pulse 99 Oximetry - Reevaluation(s) Reevaluation #1: 04/17/24 04:04 Medical records reviewed Reevaluation #2: 04/17/24 04:04 Patient symptoms improved although patient remains with chest pain and shortness of breath Reevaluation #3: 04/17/24 04:04 Patient informed of results and questions answered Reevaluation #4: Was pt. sent in by a medical professional or institution (, PA, SYSTEM SUPPORT ANALYST, urgent care, hospital, or detention...) When possible be specific @ -no Did you speak to anyone other than the patient for history (EMS, parent, family, police, friend...)? What history was obtained from this source @ -no Did you review nursing and triage notes (agree or disagree)? Why? @ -agree Are old charts reviewed (outside hosp., previous admission, EMS record, old EKG, old radiological studies, urgent care reports/EKG's, detention records)? Report findings @ -yes Differential Diagnosis (chest pain, altered mental status, abdominal pain women, abdominal pain men, vaginal bleeding, weakness, fever, dyspnea, syncope, headache, dizziness, GI bleed, back pain, seizure, CVA, palpatations, mental health, musculoskeletal)? @ -prior EKG interpreted by me (3pts min.). @ -yes X-rays interpreted by me (1pt min.). @ -yes negative for acute disease CT interpreted by me (1pt min.). @ -no U/S interpreted by me (1pt. min.). @ -no What testing was considered but not performed or refused? (CT, X-rays, U/S, labs)? Why? @ -none What meds were considered but not given or refused? Why? @ -none Did you discuss the management of the patient with other professionals (professionals i.e. , PA, SYSTEM SUPPORT ANALYST, lab, RT, psych nurse, social media campaign manager, visual merchandising manager, teacher, training and development officer, field case manager)? Give summary @ -no Was smoking cessation discussed for >3mins.? @ -no Was critical care preformed (if so, how long)? @ -yes31 Were there social determinants of health that impacted care today? How? (Homelessness, low income, unemployed, alcoholism, drug addiction, transportation, low edu. Level, literacy, decrease access to med. care, fdc, rehab)? @ -none Was there de-escalation of care discussed even if they declined (Discuss DNR or withdrawal of care, Hospice)? DNR status @ -no What co-morbidities impacted this encounter? (DM, HTN, Smoking, COPD, CAD, Cancer, CVA, ARF, Chemo, Hep., AIDS, mental health diagnosis, sleep apnea, morbid obesity)? @ -none Was patient admitted / discharged? Hospital course, mention meds given and route, prescriptions, significant lab abnormalities, going to OR and other pertinent info. @ - 78-year-old male for CHF with significant chest pain event that included shortness of breath and diaphoresis Admitted Undiagnosed new problem with uncertain prognosis? @ -no Drug Therapy requiring intensive monitoring for toxicity (Heparin, Nitro, Insulin, Cardizem)? @ -no Were any procedures done? @ -no Diagnosis/symptom? @ -CHF and chest pain Acute, or Chronic, or Acute on Chronic? @ -Acute Uncomplicated (without systemic symptoms) or Complicated (systemic symptoms)? @ -Complicated Side effects of treatment? @ -no Exacerbation, Progression, or Severe Exacerbation? @ -exacerbation Poses a threat to life or bodily function? How? (Chest pain, [place], [place], pneumonia, PE, COPD, DKA, ARF, appy, cholecystitis, CVA, Diverticulitis, Homicidal, Suicidal, threat to staff... and all critical care pts) @ -yes chest pain 04/20/24 01:42 Reevaluation #5: Differential Chest Pain: Stable Angina, Unstable Angina, STEMI, NSTEMI Aortic Dissection, Pneumothorax, Musculoskeletal, Esophageal Spasm GERD, Cholecystitis, Pancreatitis, Zoster, this is not meant to be an all-inclusive list. Chest Pain MDM - [facility] 78-year-old male for CHF with significant chest pain event that included shortness of breath and diaphoresis Critical Care Time Critical Care Time: Yes Total Critical Care Time: 31 Disposition Clinical Impression: CHF (congestive heart failure), Generalized weakness, Hypertensive urgency, Chest pain Disposition: ADMITTED IP TO THIS [facility] Condition: Stable Is patient prescribed a controlled substance at d/c from ED?: No Time of Disposition: 02:00
[2024-04-16 23:04] LABS: Basophils # (A) 0.1 k/uL (0-0.2); Basophils % (A) 1 %; Eosinophils # (A) 0.1 k/uL (0-0.7); Eosinophils % (A) 2 %; HCT 31.5 % (39.0-53.0); HGB 10.6 gm/dL (13.0-17.5); Lymphocytes # (A) 1.8 k/uL (1.0-4.8); Lymphocytes % (A) 26 %; MCH 30.7 pg (25.0-35.0); MCHC 33.8 g/dL (31.0-37.0); MCV 90.7 fL (80.0-100.0); Mean Platelet Volume 7.5; Monocytes # (A) 0.6 k/uL (0-1.0); Monocytes % (A) 9 %; Neutrophils # (A) 4.2 k/uL (1.3-7.7); Neutrophils % (A) 60 %; Platelet Count 236 k/uL (150-450); RBC 3.47 m/uL (4.30-5.90); RDW 14.8 % (11.5-15.5); WBC 7.1 k/uL (3.8-10.6)
[2024-04-16 23:19] LABS: INR 0.9 (<1.2); Partial Thromboplastin Time 25.6 sec (22.0-30.0); Prothrombin Time 9.8 sec (10.0-12.5)
[2024-04-16 23:20] LABS: Glucose 117 mg/dL (74-99); Potassium 4.1 mmol/L (3.5-5.1); Sodium 135 mmol/L (137-145)
[2024-04-16 23:21] LABS: ALT 13 U/L (4-49); AST 28 U/L (17-59); African American GFR (CKD) 30 (>60 ml/min/1.73 sqM); Albumin 3.6 g/dL (3.5-5.0); Alkaline Phosphatase 130 U/L (38-126); Anion Gap 8 mmol/L; Blood Urea Nitrogen 22 mg/dL (9-20); Carbon Dioxide 29 mmol/L (22-30); Chloride 98 mmol/L (98-107); Magnesium 2.2 mg/dL (1.6-2.3); Non-African American GFR(CKD) 26 (>60 ml/min/1.73 sqM); Total Bilirubin 0.4 mg/dL (0.2-1.3); Total Protein 6.4 g/dL (6.3-8.2)
--- NOTE | 2024-04-17 00:17 | XR ---
EXAM: XR Chest, 2 Views CLINICAL HISTORY: ITS.REASON XR Reason: Chest Pain TECHNIQUE: Frontal and lateral views of the chest. COMPARISON: XR Chest dated 03/06/2024 FINDINGS: Lungs: Low lung volumes. Central vascular congestion. No focal consolidation. Pleural space: Unremarkable. No pneumothorax. Heart: Unremarkable. No cardiomegaly. Mediastinum: Unremarkable. Normal mediastinal contour. Bones/joints: Unremarkable. No acute fracture. Tubes, lines and devices: Right internal jugular venous catheter tips in the caval atrial junction. Cardiac loop recorder over the left chest. IMPRESSION: Central vascular congestion.
[2024-04-17] MEDS: ASPIRIN 325 MG TAB PO STA (03:11)
[2024-04-17] MEDS: FUROSEMIDE 10 MG/ML 10 ML VIAL IV SCH (04:00)
[2024-04-17] MEDS: SODIUM CHLORIDE 0.9% 1,000 ML IV SCH (04:00)
[2024-04-17] MEDS: NITROGLYCERIN OINT 1 INCH/GM PACKET TOPICAL SCH (05:37)
[2024-04-17 06:00] LABS: Glucose,Whole Blood 149 mg/dL (70-110)
--- NOTE | 2024-04-17 11:41 | P.CRDCN ---
History of Present Illness History of present illness: HISTORY OF PRESENT ILLNESS: This is a 78-year-old male with a past medical history significant for coronary artery disease, hypertension, hyperlipidemia, CVA, and diabetes. Patient follows in the office with Dr. Fischer. We have been asked to see the patient in consultation for chest pain. Patient examined at the bedside. Patient states he has been having chest pain on and off for the past couple days. He states yesterday he had an episode of chest discomfort in the middle of his chest. He states in the morning he went to dialysis and tolerated his treatment fine with no issues. But then developed chest pain afterwards. He denied any radiation of the pain. He denied any shortness of breath. Patient states he has had no episodes of chest pain or pressure this morning. The patient's family member at the bedside states that he was supposed to have a stress test performed on an outpatient basis but was awaiting a callback from the cardiology office. Patient is prescribed Eliquis on an outpatient basis for unknown reason. Patient denies a history of PE//DVT or atrial fibrillation. DIAGNOSTICS: - EKG reveals sinus mechanism with no signs of acute ischemia - Chest xray central vascular congestion - Laboratory data: WBC 7.1. Hemoglobin 10.6. Platelet count 236. Sodium 135. Potassium 4.1. BUN 22. Creatinine 2.34. Troponin negative x 2. - Current home cardiac medications include Eliquis 2.5 mg twice a day, aspirin 81 mg daily, Lipitor 20 mg at night, Imdur 120 mg daily, nifedipine 60 mg twice a day, carvedilol 12.5 mg twice a day. - Most recent echocardiogram obtained in November 2023 revealed ejection fraction 65 to 70% with trace MR - Cardiac catheterization history: 2008 revealing proximal LAD 40%, mid LAD 50%, diagonal 50%, circumflex 50% and nondominant RCA with no significant stenosis -Patient underwent Lexiscan stress test in 2018 which was negative for ischemia REVIEW OF SYSTEMS: At the time of my exam: CONSTITUTIONAL: Denies fever or chills. HEENT: Denies blurred vision, vision changes, or eye pain. Denies hemoptysis CARDIOVASCULAR: Denies chest pain. Denies orthopnea. Denies PND. Denies palpitations RESPIRATORY: Denies shortness of breath. GASTROINTESTINAL: Denies abdominal pain. Denies nausea or vomiting. HEMATOLOGIC: Denies bleeding disorders. GENITOURINARY: Denies any blood in urine. SKIN: Denies pruitis. Denies rash. PHYSICAL EXAM: VITAL SIGNS: Reviewed. GENERAL: Well-developed in no acute distress. HEENT: Head is normocephalic. Pupils are equal, round. Sclerae anicteric. Mucous membranes of the mouth are moist. Neck supple. No JVD or thyromegaly LUNGS: Respirations even and unlabored. Lungs essentially clear to auscultation bilaterally. HEART: Regular rate and rhythm. S1 and S2 heard. ABDOMEN: Soft. Nondistended. Nontender. EXTREMITIES: Normal range of motion. No clubbing or cyanosis. Peripheral pulses intact. No lower extremity edema NEUROLOGIC: Awake and alert. Oriented x 3. 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 at midnight Patient to undergo Lexiscan stress test If abnormal, patient will require cardiac catheterization with Dr. Fischer Further recommendations pending patient course Nurse practitioner note has been reviewed by physician. Signing provider agrees with the documented findings, assessment, and plan of care documented by CROSS TIE TRAM LOADER as a scribe. Past Medical History Past Medical History: CVA/TIA, Diabetes Mellitus, Hyperlipidemia, Hypertension, Liver Disease, Renal Disease, Sleep Apnea/CPAP/BIPAP Additional Past Medical History / Comment(s): ARTHRITIS, kidney stones, possible dementia, kidney failure, neuropathy alia legs, carpal tunnel. CVA-jul 17 balance issues,speech impairment,vision impairment, receives injections to eyes r/t bleeding ,COVID 07/28/2022 History of Any Multi-Drug Resistant Organisms: None Reported Past Surgical History: Back Surgery, Cholecystectomy Additional Past Surgical History / Comment(s): MASS REMOVED FROM BACK OF HEAD, eye surgery, Past Anesthesia/Blood Transfusion Reactions: No Reported Reaction Past Psychological History: Depression Smoking Status: Never smoker Past Alcohol Use History: None Reported Past Drug Use History: None Reported - Past Family History Father Family Medical History: Diabetes Mellitus Mother Family Medical History: Diabetes Mellitus Brother(s) Family Medical History: Cancer Sister(s) Family Medical History: Cancer Medications and Allergies Home Medications Medication Instructions Recorded Confirmed Type DULoxetine HCL [Cymbalta] 30 mg PO HS 03/13/16 04/17/24 History levETIRAcetam [Keppra] 500 mg PO BID 12/11/20 04/17/24 History Atorvastatin [Lipitor] 20 mg PO HS 07/18/21 04/17/24 History Ergocalciferol (Vitamin D2) 1,250 mcg PO MO 02/24/24 04/17/24 History [Drisdol (50,000 Iu)] NIFEdipine XL [Procardia XL] 60 mg PO BID 03/04/24 04/17/24 History Apixaban [Eliquis] 2.5 mg PO BID #60 tab 03/19/24 04/17/24 Rx Aspirin 81 mg PO DAILY tab 03/19/24 04/17/24 Rx Acetaminophen Tab [Tylenol Tab] 1,000 mg PO Q6HR PRN 04/17/24 04/17/24 History Calcium Acetate 667 mg PO TID-W/MEALS 04/17/24 04/17/24 History INSULIN ASPART (NovoLOG) [NovoLOG 10 unit SQ AC-BID@0900,1200 04/17/24 04/17/24 History (formulary)] INSULIN ASPART (NovoLOG) [NovoLOG 12 unit SQ AC-SUPPER 04/17/24 04/17/24 History (formulary)] Insulin Glargine [Lantus Vial] 20 unit SQ HS 04/17/24 04/17/24 History Isosorbide Mononitrate ER [Imdur] 120 mg PO DAILY 04/17/24 04/17/24 History Vit B Comp No.3/Folic/C/Biotin 1 tab PO TUTHSA@0900,2100 04/17/24 04/17/24 H istory [Catie-Loly Rx Tablet] calcitrioL [Rocaltrol] 0.25 mcg PO MOWEFR 04/17/24 04/17/24 History carvediloL [Coreg*] 12.5 mg PO BID 04/17/24 04/17/24 History Allergies Allergy/AdvReac Type Severity Reaction Status Date / Time No Known Allergies Allergy Verified 04/17/24 11:09 Physical Exam Vitals: Vital Signs Temp Pulse Pulse Resp BP BP Pulse Ox 04/17/24 07:00 98.3 F 95 16 152/63 98 04/17/24 04:35 98.3 F 86 16 167/71 99 04/17/24 04:02 81 18 148/65 99 04/17/24 02:00 99 18 153/73 97 04/16/24 23:44 70 18 140/70 98 04/16/24 22:06 98.8 F 80 18 150/63 97 Intake and Output 04/16/24 04/17/24 04/17/24 22:59 06:59 14:59 Other: # Voids 1 Weight 85.275 kg 85.275 kg Results 04/16/24 22:57 04/16/24 22:57 Cardiac Enzymes 04/16/24 04/16/24 04/17/24 Range/Units 22:57 22:57 03:54 AST 28 (17-59) U/L Troponin I <0.012 <0.012 (0.000-0.034) ng/mL Coagulation 04/16/24 Range/Units 22:57 PT 9.8 L (10.0-12.5) sec APTT 25.6 (22.0-30.0) sec CBC 04/16/24 Range/Units 22:57 WBC 7.1 (3.8-10.6) k/uL RBC 3.47 L (4.30-5.90) m/uL Hgb 10.6 L (13.0-17.5) gm/dL Hct 31.5 L (39.0-53.0) % Plt Count 236 (150-450) k/uL Comprehensive Metabolic Panel 04/16/24 Range/Units 22:57 Sodium 135 L (137-145) mmol/L Potassium 4.1 (3.5-5.1) mmol/L Chloride 98 (98-107) mmol/L Carbon Dioxide 29 (22-30) mmol/L BUN 22 H (9-20) mg/dL Creatinine 2.34 H (0.66-1.25) mg/dL Glucose 117 H (74-99) mg/dL Calcium 9.0 (8.4-10.2) mg/dL AST 28 (17-59) U/L ALT 13 (4-49) U/L Alkaline Phosphatase 130 H (38-126) U/L Total Protein 6.4 (6.3-8.2) g/dL Albumin 3.6 (3.5-5.0) g/dL Current Medications Generic Name Dose Route Start Last Admin Trade Name Freq PRN Reason Stop Dose Admin Aminophylline 100 mg 04/18/24 06:00 Aminophylline 500 Mg/20 Ml Vial IV 04/18/24 23:00 ONCE PRN Patient Response Aspirin 81 mg 04/18/24 09:00 Aspirin 81 Mg PO DAILY BETSY Caffeine Citrate 60 mg 04/18/24 06:00 Caffeine Citrate 60 Mg/3 Ml Vial IV 04/18/24 23:00 ONCE PRN Patient Response Sodium Chloride 1,000 mls @ 20 mls/hr 04/17/24 03:00 04/17/24 04:00 Saline 0.9% IV 20 mls/hr .Q24H BETSY Administration Regadenoson 0.4 mg 04/17/24 08:06 Regadenoson 0.4 Mg/5 Ml Syringe IV 04/17/24 12:06 ONCE PRN Per Protocol Intake and Output 04/16/24 04/17/24 04/17/24 22:59 06:59 14:59 Other: # Voids 1 Weight 85.275 kg 85.275 kg 04/16/24 22:57 04/16/24 22:57
[2024-04-17 12:12] LABS: Glucose,Whole Blood 258 mg/dL (70-110)
[2024-04-17] MEDS ORDERED: ACETAMINOPHEN TAB 500 MG TAB PO PRN (13:28)
--- NOTE | 2024-04-17 13:34 | P.HPIM ---
History of Present Illness H&P Date: 04/17/24 This is a pleasant 78-year-old male with medical history significant for stroke, diabetes mellitus, hypertension, hyperlipidemia, liver disease, peripheral neuropathy, stroke. Patient also has history of end stage renal disease he is maintained on hemodialysis thursday. Went to dialysis yesterday wtih no issues. He developed chest pain later in the evening and now he is febrile presents to the hospital with complaints of cough chest pain with shortness of breath patient does have a history of heart failure patient states that he was in bed when this episode of chest pain began he was diaphoretic and he was brought to the ER for further evaluation. Pain has been coming and going. Initial EKG reveals normal sinus rhythm heart rate of [address] or T wave changes noted. Chest x-ray reveals central vascular congestion. Patient has negative troponin level, BUN of 22, creatinine of 2.34, baseline creatinine appears to be about 1.6. He received a dose of IV lasix in the ER. Patient was admitted to the hospital with a consult placed to cardiology services patient will be undergoing a cardiac stress test tomorrow and further recommendations pending. He is evaluated today on the medical floor not having any chest pain or shortness of breath at this time. REVIEW OF SYSTEMS: CONSTITUTIONAL: No fever, no malaise, no fatigue. HEENT: No recent visual problems or hearing problems. Denied any sore throat. CARDIOVASCULAR: No chest pain, orthopnea, PND, no palpitations, no syncope. PULMONARY: No shortness of breath, no cough, no hemoptysis. GASTROINTESTINAL: No diarrhea, no nausea, no vomiting, no abdominal pain. NEUROLOGICAL: No headaches, no weakness, no numbness. HEMATOLOGICAL: Denies any bleeding or petechiae. GENITOURINARY: Denies any burning micturition, frequency, or urgency. MUSCULOSKELETAL/RHEUMATOLOGICAL: Denies any joint pain, swelling, or any muscle pain. ENDOCRINE: Denies any polyuria or polydipsia. The rest of the 14-point review of systems is negative. PHYSICAL EXAMINATION: GENERAL: The patient is alert and oriented x3, not in any acute distress. Well developed, well nourished. HEENT: Pupils are round and equally reacting to light. EOMI. No scleral icterus. No conjunctival pallor. Normocephalic, atraumatic. No pharyngeal erythema. No thyromegaly. CARDIOVASCULAR: S1 and S2 present. No murmurs, rubs, or gallops. PULMONARY: Chest is clear to auscultation, no wheezing or crackles. ABDOMEN: Soft, nontender, nondistended, normoactive bowel sounds. No palpable organomegaly. MUSCULOSKELETAL: No joint swelling or deformity. EXTREMITIES: No cyanosis, clubbing, or pedal edema. NEUROLOGICAL: Gross neurological examination did not reveal any focal deficits. SKIN: No rashes. Assessment and Plan Chest pain intermittent End stage renal disease maintained on hemodialysis //Thursday therapy Hypertension Hyperlipidemia History of stroke on aspirin Diabetes mellitus type 2 with peripheral neuropathy Hx of coronary artery disease no prior stenting. Chronic congestive heart failure with preserved EF does not appear to be volume overloaded. Chronic anticoagulation with Eliquis, unknown why Hx of probably seizure disorder on Keppra which has been resumed. Loop Recorder GI prophylaxis DVT prophylaxis Patient will undergo cardiac stress test in the AM Further recommendations pending Resume appropriate home medications. Repeat blood work Consult nephro, HD patient. The impression and plan of care has been dictated by Liliana Trimble, Nurse Practitioner as directed. Dr. Dariela MD I have performed a history and physical examination and medical decision making of this patient, discussed the same with the dictator, and agree with the dictators assessment and plan as written, documented as a scribe. Based on total visit time, I have performed more than 50% of this visit. Past Medical History Past Medical History: CVA/TIA, Diabetes Mellitus, Hyperlipidemia, Hypertension, Liver Disease, Renal Disease, Sleep Apnea/CPAP/BIPAP Additional Past Medical History / Comment(s): ARTHRITIS, kidney stones, possible dementia, kidney failure, neuropathy alia legs, carpal tunnel. CVA-jul 17 balance issues,speech impairment,vision impairment, receives injections to eyes r/t bleeding ,COVID 07/28/2022 History of Any Multi-Drug Resistant Organisms: None Reported Past Surgical History: Back Surgery, Cholecystectomy Additional Past Surgical History / Comment(s): MASS REMOVED FROM BACK OF HEAD, eye surgery, Past Anesthesia/Blood Transfusion Reactions: No Reported Reaction Past Psychological History: Depression Smoking Status: Never smoker Past Alcohol Use History: None Reported Past Drug Use History: None Reported - Past Family History Father Family Medical History: Diabetes Mellitus Mother Family Medical History: Diabetes Mellitus Brother(s) Family Medical History: Cancer Sister(s) Family Medical History: Cancer Medications and Allergies Home Medications Medication Instructions Recorded Confirmed Type DULoxetine HCL [Cymbalta] 30 mg PO HS 03/13/16 04/17/24 History levETIRAcetam [Keppra] 500 mg PO BID 12/11/20 04/17/24 History Atorvastatin [Lipitor] 20 mg PO HS 07/18/21 04/17/24 History Ergocalciferol (Vitamin D2) 1,250 mcg PO MO 02/24/24 04/17/24 History [Drisdol (50,000 Iu)] NIFEdipine XL [Procardia XL] 60 mg PO BID 03/04/24 04/17/24 History Apixaban [Eliquis] 2.5 mg PO BID #60 tab 03/19/24 04/17/24 Rx Aspirin 81 mg PO DAILY tab 03/19/24 04/17/24 Rx Acetaminophen Tab [Tylenol Tab] 1,000 mg PO Q6HR PRN 04/17/24 04/17/24 History Calcium Acetate 667 mg PO TID-W/MEALS 04/17/24 04/17/24 History INSULIN ASPART (NovoLOG) [NovoLOG 10 unit SQ AC-BID@0900,1200 04/17/24 04/17/24 History (formulary)] INSULIN ASPART (NovoLOG) [NovoLOG 12 unit SQ AC-SUPPER 04/17/24 04/17/24 History (formulary)] Insulin Glargine [Lantus Vial] 20 unit SQ HS 04/17/24 04/17/24 History Isosorbide Mononitrate ER [Imdur] 120 mg PO DAILY 04/17/24 04/17/24 History Vit B Comp No.3/Folic/C/Biotin 1 tab PO TUTHSA@0900,2100 04/17/24 04/17/24 History [Catie-Loly Rx Tablet] calcitrioL [Rocaltrol] 0.25 mcg PO MOWEFR 04/17/24 04/17/24 History carvediloL [Coreg*] 12.5 mg PO BID 04/17/24 04/17/24 History Allergies Allergy/AdvReac Type Severity Reaction Status Date / Time No Known Allergies Allergy Verified 04/17/24 11:09 Physical Exam Vitals: Vital Signs Temp Pulse Pulse Resp BP BP Pulse Ox 04/17/24 07:00 98.3 F 95 16 152/63 98 04/17/24 04:35 98.3 F 86 16 167/71 99 04/17/24 04:02 81 18 148/65 99 04/17/24 02:00 99 18 153/73 97 04/16/24 23:44 70 18 140/70 98 04/16/24 22:06 98.8 F 80 18 150/63 97 Intake and Output 04/16/24 04/17/24 04/17/24 22:59 06:59 14:59 Other: # Voids 1 Weight 85.275 kg 85.275 kg Results CBC & Chem 7: 04/16/24 22:57 04/16/24 22:57 Labs: Abnormal Lab Results - Last 24 Hours (Table) 04/16/24 04/16/24 04/16/24 Range/Units 22:57 22:57 22:57 RBC 3.47 L (4.30-5.90) m/uL Hgb 10.6 L (13.0-17.5) gm/dL Hct 31.5 L (39.0-53.0) % PT 9.8 L (10.0-12.5) sec Sodium 135 L (137-145) mmol/L BUN 22 H (9-20) mg/dL Creatinine 2.34 H (0.66-1.25) mg/dL Glucose 117 H (74-99) mg/dL POC Glucose (mg/dL) (70-110) mg/dL Alkaline Phosphatase 130 H (38-126) U/L 04/17/24 Range/Units 05:58 RBC (4.30-5.90) m/uL Hgb (13.0-17.5) gm/dL Hct (39.0-53.0) % PT (10.0-12.5) sec Sodium (137-145) mmol/L BUN (9-20) mg/dL Creatinine (0.66-1.25) mg/dL Glucose (74-99) mg/dL POC Glucose (mg/dL) 149 H (70-110) mg/dL Alkaline Phosphatase (38-126) U/L Thrombosis Risk Factor Assmnt - Choose All That Apply Each Factor Represents 1 point: Obesity (BMI >25), Swollen legs (current) Each Risk Factor Represents 3 Points: Age 75 years or older Thrombosis Risk Factor Assessment Total Risk Factor Score: 5 Thrombosis Risk Factor Assessment Level: High Risk Assessment and Plan Time with Patient: Less than 30
[2024-04-17] MEDS ORDERED: ONDANSETRON 4 MG/2 ML VIAL IVP PRN (13:37)
[2024-04-17 17:22] LABS: Glucose,Whole Blood 336 mg/dL (70-110)
[2024-04-17] MEDS: carvediloL 12.5 MG TAB PO SCH (17:30)
[2024-04-17] MEDS: CALCIUM ACETATE 667 MG TAB PO SCH (17:30)
[2024-04-17] MEDS: INSULIN ASPART (NovoLOG) 100 UNIT/ML VIAL SQ SCH (17:30)
[2024-04-17 19:54] LABS: Glucose,Whole Blood 322 mg/dL (70-110)
[2024-04-17] MEDS: levETIRAcetam 500 MG TAB PO SCH (20:51)
[2024-04-17] MEDS: ATORVASTATIN 40 MG TAB PO SCH (20:51)
[2024-04-17] MEDS: DULoxetine HCL 30 MG CAPSULE.DR PO SCH (20:51)
[2024-04-17] MEDS: APIXABAN 2.5 MG TABLET PO SCH (20:51)
[2024-04-17] MEDS: INSULIN DETEMIR (LEVEMIR) 100 UNIT/ML SYR SQ SCH (20:51)
[2024-04-17] MEDS ORDERED: ATORVASTATIN 20 MG TAB PO SCH (21:00)
[2024-04-18] MEDS ORDERED: CAFFEINE CITRATE 60 MG/3 ML VIAL IV PRN (06:00)
[2024-04-18] MEDS ORDERED: AMINOPHYLLINE 500 MG/20 ML VIAL IV PRN (06:00)
[2024-04-18 06:08] LABS: Glucose,Whole Blood 82 mg/dL (70-110)
[2024-04-18] MEDS ORDERED: REGADENOSON 0.4 MG/5 ML SYRINGE IV PRN (07:00)
[2024-04-18 08:22] VITALS: RESP 16
[2024-04-18 08:46] LABS: Glucose,Whole Blood 69 mg/dL (70-110)
[2024-04-18] MEDS: DEXTROSE 50% SYRINGE 50 ML IVP STA (08:48)
[2024-04-18] MEDS: DEXTROSE 50% SYRINGE 50 ML IVP ONE (08:51)
[2024-04-18] MEDS ORDERED: REGADENOSON 0.4 MG/5 ML SYRINGE IV ONE (09:00)
[2024-04-18] MEDS ORDERED: ASPIRIN 325 MG TAB PO SCH (09:00)
[2024-04-18] MEDS ORDERED: ASPIRIN 81 MG PO SCH (09:00)
--- NOTE | 2024-04-18 09:16 | P.PN ---
Subjective Progress Note Date: 04/18/24 HISTORY OF PRESENT ILLNESS: This is a 78-year-old male with a past medical history significant for coronary artery disease, hypertension, hyperlipidemia, CVA, and diabetes. Patient follows in the office with Dr. Fischer. We have been asked to see the patient in consultation for chest pain. Patient examined at the bedside. Patient states he has been having chest pain on and off for the past couple days. He states yesterday he had an episode of chest discomfort in the middle of his chest. He states in the morning he went to dialysis and tolerated his treatment fine with no issues. But then developed chest pain afterwards. He denied any radiation of the pain. He denied any shortness of breath. Patient states he has had no episodes of chest pain or pressure this morning. The patient's family member at the bedside states that he was supposed to have a stress test performed on an outpatient basis but was awaiting a callback from the cardiology office. Patient is prescribed Eliquis on an outpatient basis for unknown reason. Patient denies a history of PE//DVT or atrial fibrillation. DIAGNOSTICS: - EKG reveals sinus mechanism with no signs of acute ischemia - Chest xray central vascular congestion - Laboratory data: WBC 7.1. Hemoglobin 10.6. Platelet count 236. Sodium 135. Potassium 4.1. BUN 22. Creatinine 2.34. Troponin negative x 2. - Current home cardiac medications include Eliquis 2.5 mg twice a day, aspirin 81 mg daily, Lipitor 20 mg at night, Imdur 120 mg daily, nifedipine 60 mg twice a day, carvedilol 12.5 mg twice a day. - Most recent echocardiogram obtained in November 2023 revealed ejection fraction 65 to 70% with trace MR - Cardiac catheterization history: 2008 revealing proximal LAD 40%, mid LAD 50%, diagonal 50%, circumflex 50% and nondominant RCA with no significant stenosis -Patient underwent Lexiscan stress test in 2018 which was negative for ischemia 04/18 Patient is seen and examined. No complaints of chest pain. No problems overnight. Blood pressure 165/68, heart rate 75, pulse ox 99% on room air. Telemetry sinus rhythm. PHYSICAL EXAM: VITAL SIGNS: Reviewed. GENERAL: Well-developed in no acute distress. HEENT: Head is normocephalic. Pupils are equal, round. Sclerae anicteric. Mucous membranes of the mouth are moist. Neck supple. No JVD or thyromegaly LUNGS: Respirations even and unlabored. Lungs essentially clear to auscultation bilaterally. HEART: Regular rate and rhythm. S1 and S2 heard. ABDOMEN: Soft. Nondistended. Nontender. EXTREMITIES: No clubbing or cyanosis. Peripheral pulses intact. No lower extremity edema NEUROLOGIC: Awake and alert. Oriented x 3. ASSESSMENT: Chest pain Nonobstructive CAD, per cardiac catheterization 2008 Hypertension Hyperlipidemia History of CVA Diabetes Stage renal disease on hemodialysis Chronic congestive heart failure with preserved EF, currently euvolemic Chronic anticoagulation with Eliquis, reason unknown, family denies history of PE/DVT or atrial fibrillation History of loop recorder insertion with no evidence of atrial fibrillation previously PLAN: An acute coronary event has been ruled out Resume home cardiac medications N.p.o. at midnight Patient to undergo Lexiscan stress test today If abnormal, patient will require cardiac catheterization with Dr. Fischer Further recommendations pending patient course Nurse practitioner note has been reviewed by physician. Signing provider agrees with the documented findings, assessment, and plan of care documented by [employer] as a scribe. Objective - Vital Signs Vital signs: Vital Signs Temp 97.7 F 04/18/24 07:00 Pulse 75 04/18/24 07:00 Resp 16 04/18/24 07:00 BP 165/68 04/18/24 07:00 Pulse Ox 99 04/18/24 07:00 FiO2 Intake & Output 04/17/24 04/18/24 04/18/24 18:59 06:59 18:59 Intake Total 240 Balance 240 Intake: Oral 240 Other: # Voids 1 3 - Labs CBC & Chem 7: 04/16/24 22:57 04/16/24 22:57 Labs: Abnormal Lab Results - Last 24 Hours (Table) 04/17/24 04/17/24 04/17/24 Range/Units 12:11 17:21 19:52 POC Glucose (mg/dL) 258 H 336 H 322 H (70-110) mg/dL
[2024-04-18 10:19] LABS: Basophils # (A) 0.05 X 10*3/uL (0.00-0.10); Basophils % (A) 0.7 %; Eosinophils % (A) 1.5 %; HCT 32.6 % (39.6-50.0); HGB 10.3 g/dL (13.0-17.0); Lymphocytes # (A) 1.87 X 10*3/uL (0.90-5.00); Lymphocytes % (A) 27.9 %; MCH 29.6 pg (27.0-32.0); MCHC 31.6 g/dL (32.0-37.0); MCV 93.7 FL (80.0-97.0); Mean Platelet Volume 10.4 FL (9.5-12.2); Monocytes # (A) 0.79 X 10*3/uL (0.20-1.00); Monocytes % (A) 11.8 %; NRBC Per 100 WBC 0 X 10*3/uL (0.00-0.01); Neutrophils # (A) 3.89 X 10*3/uL (1.80-7.70); Platelet Count 234 X 10*3/uL (140-440); RBC 3.48 X 10*6/uL (4.40-5.60); RDW 14.6 % (11.5-14.5); WBC 6.71 X 10*3/uL (4.50-10.00)
[2024-04-18 10:21] LABS: Glucose,Whole Blood 105 mg/dL (70-110)
[2024-04-18 10:29] LABS: BUN/Creat Ratio 8.56 Ratio (12.00-20.00); Blood Urea Nitrogen 29.1 mg/dL (9.0-27.0); Calcium 8.9 mg/dL (8.7-10.3); Carbon Dioxide 28.3 mmol/L (21.6-31.8); Chloride 102 mmol/L (96-109); Glucose 84 mg/dL (70-110); Magnesium 2.3 mg/dL (1.5-2.4); Potassium 4.2 mmol/L (3.5-5.5); Sodium 140 mmol/L (135-145)
--- NOTE | 2024-04-18 11:04 | CA ---
Lexiscan Nuclear Stress Test Report Name: Edgardo Alvarez Exam Date: 04/18/2024 09:40 Exam Location: [place] Stress Ht (in): 68 Wt (lb): 188 BSA: 1.99 Ordering Phys: Indira Dunn Referring Phys: PATRICIO Technologist: ERIN Age: 78 Gender: M : 1945 Procedure CPT: Indications: Reflex order-Stress test ICD-10 Codes: Patient History: Chest pain, hypertension, and palpitations Medications: Meds past 24 hrs: Pretest Chest Pain: STRESS TEST Lexiscan Protocol Exercise Duration (min:sec): 02:[address] Depressions (mm): Angina Score: Lott Score: Resting HR (bpm): 72 Peak HR (bpm): 76 Resting BP (mmHg): 167 / 49 Peak BP (mmHg): 143 / 54 MPHR: 143 Target HR: 122 % MPHR: 53 METS: 1.0 Total Dose: Peak Dose: Atropine: Double Product: 65395 BP Response: Stress Termination: INFUSION COMPLETE Stress Symptoms: NO SYMPTOMS Stress Summary: ECG ANALYSIS Resting ECG: Normal sinus rhythm normal axis normal intervals Stress ECG: Patient was given intravenous Lexiscan as a protocol did not have chest pain or diagnostic ST segment depression CONCLUSIONS Negative stress test by EKG criteria Cardiolite portion of the stress test will be reported separately Dr. Arnav Fischer MD (Electronically Signed) Final Date: 18 April 2024 11:03
[2024-04-18] MEDS: INSULIN ASPART (NovoLOG) 100 UNIT/ML VIAL SQ SCH (11:28)
[2024-04-18] MEDS: ASPIRIN 81 MG PO SCH (12:01)
[2024-04-18] MEDS: ISOSORBIDE MONONITRATE ER 60 MG TAB.ER.24H PO SCH (12:01)
--- NOTE | 2024-04-18 12:15 | CA ---
Transthoracic Echo Report Name: Edgardo Alvarez Age: 78 Gender: M : 1945 Exam Date: 04/18/2024 10:05 Exam Location: [place] Echo Ht (in): 68 Wt (lb): 188 Ordering Physician: Felipe Kemp DO Attending/Referring Phys: [id number], [facility] Consultant Janice Garcia RDCS Procedure CPT: Indications: Heart failure Cardiac Hx: Technical Quality: Fair Contrast 1: Total Dose (mL): Contrast 2: Total Dose (mL): MEASUREMENTS (Male / Female) Normal Values 2D ECHO LV Diastolic Diameter PLAX 4.1 cm 4.2 - 5.9 / 3.9 - 5.3 cm LV Systolic Diameter PLAX 2.7 cm IVS Diastolic Thickness 1.5 cm 0.6 - 1.0 / 0.6 - 0.9 cm LVPW Diastolic Thickness 1.2 cm 0.6 - 1.0 / 0.6 - 0.9 cm LV Relative Wall Thickness 0.7 LA Volume 37.1 cm??? 18 - 58 / 22 - 52 cm??? LA Volume Index 18.1 cm???/m??? 16 - 28 cm???/m??? DOPPLER AV Peak Velocity 125.4 cm/s AV Peak Gradient 6.3 mmHg AV Mean Velocity 83.7 cm/s AV Mean Gradient 3.1 mmHg AV Velocity Time Integral 25.2 cm AI Peak Velocity 387.7 cm/s AI Peak Gradient 60.1 mmHg AI Pressure Half Time 474.8 ms LVOT Peak Velocity 101.8 cm/s LVOT Peak Gradient 4.1 mmHg LVOT Velocity Time Integral 21.2 cm MV Area PHT 2.8 cm??? Mitral E Point Velocity 67.1 cm/s Mitral A Point Velocity 85.6 cm/s Mitral E to A Ratio 0.8 MV Deceleration Time 273.8 ms MV E' Velocity 5.1 cm/s Mitral E to MV E' Ratio 13.2 FINDINGS Left Ventricle Left ventricular cavity size normal. Moderately increased left ventricular wall thickness. Normal left ventricular systolic function with no obvious regional wall motion abnormalities. Left ventricular ejection fraction is estimated at 55 %. Grade 1 diastolic dysfunction. Right Ventricle Normal right ventricular size and function. Right Atrium Normal right atrial size. Left Atrium Normal left atrial size. Mitral Valve Structurally normal mitral valve. Mild mitral annular calcification. Mild mitral regurgitation. Aortic Valve Trileaflet aortic valve. No aortic stenosis. Trace to mild aortic regurgitation. Tricuspid Valve Structurally normal tricuspid valve. Mild tricuspid regurgitation. Pulmonic Valve Structurally normal pulmonic valve. Pericardium No pericardial effusion. Aorta Aortic root and proximal ascending aorta not well visualized. CONCLUSIONS Normal LV function Mild mitral regurgitation Trace aortic regurgitation Previewed by: Dr. Arnav Fischer MD (Electronically Signed) Final Date: 18 April 2024 12:14
[2024-04-18 12:22] LABS: Glucose,Whole Blood 104 mg/dL (70-110)
--- NOTE | 2024-04-18 12:55 | NM ---
EXAMINATION TYPE: NM stress lexiscan cardiolite DATE OF EXAM: 04/18/2024 COMPARISON: NONE CLINICAL INDICATION: Male, 78 years old with history of CP; TECHNIQUE: After the intravenous administration of 10.5 mCi Tc 99m Sestamibi - Cardiolite resting SP ECT images acquired 80 minutes post injection. The patient received 0.4mg Lexiscan, 26 mCi Tc 99m Sestamibi - Stress images obtained 60 minutes post injection FINDINGS: Review of stress and rest SPECT images demonstrates no distinct reversible perfusion abnormality. Fix ed defects noted of the septum and lateral wall. Gated analysis shows normal wall motion with an humaira mated left ventricular ejection fraction of 51 %. IMPRESSION: No scintigraphic evidence for reversible ischemia.
[2024-04-18 14:14] VITALS: BMI 28.5
--- NOTE | 2024-04-18 14:14 | P.NPCON ---
History of Present Illness - Reason for Consult Consult date: 04/18/24 - History of Present Illness Patient is a 78-year-old male who is being consulted for hemodialysis and increasing creatinine. He has a history of end-stage renal disease maintained on hemodialysis Thursday, , and Thursday through . He was admitted to the hospital due to shortness of breath. Creatinine on admission was 2.34. Patient is making urine. No significant complaints today. Past Medical History Past Medical History: CVA/TIA, Diabetes Mellitus, Hyperlipidemia, Hypertension, Liver Disease, Renal Disease, Sleep Apnea/CPAP/BIPAP Additional Past Medical History / Comment(s): ARTHRITIS, kidney stones, possible dementia, kidney failure, neuropathy alia legs, carpal tunnel. CVA-jul 17 balance issues,speech impairment,vision impairment, receives injections to eyes r/t bleeding ,COVID 07/28/2022 History of Any Multi-Drug Resistant Organisms: None Reported Past Surgical History: Back Surgery, Cholecystectomy Additional Past Surgical History / Comment(s): MASS REMOVED FROM BACK OF HEAD, eye surgery, Past Anesthesia/Blood Transfusion Reactions: No Reported Reaction Past Psychological History: Depression Smoking Status: Never smoker Past Alcohol Use History: None Reported Past Drug Use History: None Reported - Past Family History Father Family Medical History: Diabetes Mellitus Mother Family Medical History: Diabetes Mellitus Brother(s) Family Medical History: Cancer Sister(s) Family Medical History: Cancer Medications and Allergies Home Medications Medication Instructions Recorded Confirmed Type DULoxetine HCL [Cymbalta] 30 mg PO HS 03/13/16 04/17/24 History levETIRAcetam [Keppra] 500 mg PO BID 12/11/20 04/17/24 History Atorvastatin [Lipitor] 20 mg PO HS 07/18/21 04/17/24 History Ergocalciferol (Vitamin D2) 1,250 mcg PO MO 02/24/24 04/17/24 History [Drisdol (50,000 Iu)] NIFEdipine XL [Procardia XL] 60 mg PO BID 03/04/24 04/17/24 History Apixaban [Eliquis] 2.5 mg PO BID #60 tab 03/19/24 04/17/24 Rx Aspirin 81 mg PO DAILY tab 03/19/24 04/17/24 Rx Acetaminophen Tab [Tylenol] 1,000 mg PO Q6HR PRN 04/17/24 04/17/24 History Calcium Acetate 667 mg PO TID-W/MEALS 04/17/24 04/17/24 History INSULIN ASPART (NovoLOG) [NovoLOG 10 unit SQ AC-BID@0900,1200 04/17/24 04/17/24 History (formulary)] INSULIN ASPART (NovoLOG) [NovoLOG 12 unit SQ AC-SUPPER 04/17/24 04/17/24 History (formulary)] Insulin Glargine [Lantus Vial] 20 unit SQ HS 04/17/24 04/17/24 History Isosorbide Mononitrate ER [Imdur] 120 mg PO DAILY 04/17/24 04/17/24 History Vit B Comp No.3/Folic/C/Biotin 1 tab PO TUTHSA@0900,2100 04/17/24 04/17/24 History [Catie-Loly Rx Tablet] calcitrioL [Rocaltrol] 0.25 mcg PO MOWEFR 04/17/24 04/17/24 History carvediloL [Coreg*] 12.5 mg PO BID 04/17/24 04/17/24 History Famotidine [Pepcid] 20 mg PO DAILY #14 tablet 04/18/24 Rx Torsemide [Demadex] 20 mg PO DAILY #30 tab 04/18/24 Rx Allergies Allergy/AdvReac Type Severity Reaction Status Date / Time No Known Allergies Allergy Verified 04/17/24 11:09 Physical Exam Vitals: Vital Signs Temp Pulse Resp BP Pulse Ox 04/18/24 07:00 97.7 F 75 16 165/68 99 04/18/24 02:00 98.7 F 84 15 188/70 97 04/17/24 18:47 97.7 F 82 14 169/67 100 04/17/24 15:00 98.6 F 85 16 164/76 98 Intake and Output 04/17/24 04/18/24 04/18/24 22:59 06:59 14:59 Other: # Voids 0 3 Vital signs are stable. General: No acute distress. HEENT: Head exam is unremarkable. Lungs: Bilateral breath sounds present; no rhonchi, wheezes, or rales. Heart: Rate and rhythm are regular. Abdomen: Nontender. Extremities: No edema present. Results - Lab Results Most recent lab results Calcium 9.0 mg/dL (8.4-10.2) 04/16/24 22:57 Magnesium 2.2 mg/dL (1.6-2.3) 04/16/24 22:57 04/18/24 06:05 04/18/24 06:05 Assessment and Plan Assessment: 1. End stage renal disease on hemodialysis Thursday, , and Thursday with IJ permacath. Has a maturing left forearm AV fistula. No BP or blood draw on left arm. 2. CHF exacerbation. Acute on chronic diastolic with ejection fraction 55%. 3. Volume overload. 4. CKD mineral bone disorder. On Phoslo. 5. Anemia of chronic kidney disease. Hemoglobin 10.3. Plan: Maintain dialysis Thursday, , Thursday. Avoid nephrotoxins. Maintain off of IV fluids. Hemodialysis today for fluid overload. Repeat hemodialysis in the morning. Add torsemide 20mg daily. Check phosphorus. Continue Phoslo with meals. Continue calcitriol. Thank you for the consultation. We will continue to follow the patient during his hospital stay. Patient is seen and examined with the resident. Agree with assessment and plan.
[2024-04-18 15:07] LABS: Glucose,Whole Blood 114 mg/dL (70-110)
[2024-04-18] MEDS: TORSEMIDE 20 MG TAB PO SCH (16:41)
[2024-04-18 16:48] VITALS: BP 129/60; PULSE 76; TEMP 97.9
[2024-04-18 17:13] LABS: Glucose,Whole Blood 132 mg/dL (70-110)
--- NOTE | 2024-04-19 15:25 | P.DS ---
Providers Date of admission: 04/17/24 02:50 Attending physician: Frieda Díaz Consults: 04/17/24 02:50 Consult Physician Routine Consulting Provider: Ever Brown Consult Reason/Comments: chf Do you want consulting provider notified?: Yes 04/17/24 20:13 Consult Physician Routine Consulting Provider: Brit Stevens Consult Reason/Comments: Hemodialysis patient Do you want consulting provider notified?: Yes, Notify in am Primary care physician: [facility] Course: Final Diagnosis Chest pain intermittent End stage renal disease maintained on hemodialysis //Thursday therapy Hypertension Hyperlipidemia History of stroke on aspirin Diabetes mellitus type 2 with peripheral neuropathy Hx of coronary artery disease no prior stenting. Chronic congestive heart failure with preserved EF does not appear to be volume overloaded. Chronic anticoagulation with Eliquis, unknown why Hx of probably seizure disorder on Keppra which has been resumed. Loop Recorder Discharge Disposition Stable for discharge home. He was cleared by cardiology and nephrology services. Patient underwent an additional hemodialysis session on April 18. Patient will continue on the same outpatient Thursday scheduling on discharge. Patient has been started on oral torsemide 20 mg daily. Hospital Course This is a pleasant 78-year-old male with medical history significant for stroke, diabetes mellitus, hypertension, hyperlipidemia, liver disease, peripheral neuropathy, stroke. Patient also has history of end stage renal disease he is maintained on hemodialysis thursday. Went to dialysis yesterday wtih no issues. He developed chest pain later in the evening and now he is febrile presents to the hospital with complaints of cough chest pain with shor tness of breath patient does have a history of heart failure patient states that he was in bed when this episode of chest pain began he was diaphoretic and he was brought to the ER for further evaluation. Pain has been coming and going. Initial EKG reveals normal sinus rhythm heart rate of [address] or T wave changes noted. Chest x-ray reveals central vascular congestion. Patient has negative troponin level, BUN of 22, creatinine of 2.34, baseline creatinine appears to be about 1.6. He received a dose of IV lasix in the ER. Patient was admitted to the hospital with a consult placed to cardiology services patient will be undergoing a cardiac stress test. He is evaluated today on the medical floor not having any chest pain or shortness of breath at this time. Stress test was negative for any reversible ischemia. Echocardiogram reveals fraction of 55% with grade 1 diastolic dysfunction. There is mild mitral regurgitation and trace aortic regurgitation. Patient was evaluated nephrology recommending an additional session of hemodialysis which was completed. Patient will be discharged home and continue on his same outpatient dialysis schedule Thursday. Patient will follow-up with cardiology in the office. Please see medication reconciliation for a list of current medications. Thank you for allowing us to participate in the care of this patient. The impression and plan of care has been dictated by Liliana Trimble, Nurse Practitioner as directed. Dr. Dariela MD I have performed a history and physical examination and medical decision making of this patient, discussed the same with the dictator, and agree with the dictators assessment and plan as written, documented as a scribe. Based on total visit time, I have performed more than 50% of this visit. Patient Condition at Discharge: Stable Plan - Discharge Summary New Discharge Prescriptions: New Torsemide [Demadex] 20 mg PO DAILY #30 tab Famotidine [Pepcid] 20 mg PO DAILY #14 tablet Continue DULoxetine HCL [Cymbalta] 30 mg PO HS levETIRAcetam [Keppra] 500 mg PO BID Atorvastatin [Lipitor] 20 mg PO HS Aspirin 81 mg PO DAILY tab Apixaban [Eliquis] 2.5 mg PO BID #60 tab Acetaminophen Tab [Tylenol] 1,000 mg PO Q6HR PRN PRN Reason: Fever And/ Or Pain Calcium Acetate 667 mg PO TID-W/MEALS INSULIN ASPART (NovoLOG) [NovoLOG (formulary)] 10 unit SQ AC-BID@0900,1200 carvediloL [Coreg*] 12.5 mg PO BID Ergocalciferol (Vitamin D2) [Drisdol (50,000 Iu)] 1,250 mcg PO MO NIFEdipine XL [Procardia XL] 60 mg PO BID Vit B Comp No.3/Folic/C/Biotin [Catie-Loly Rx Tablet] 1 tab PO TUTHSA@0900,2100 calcitrioL [Rocaltrol] 0.25 mcg PO MOWEFR Isosorbide Mononitrate ER [Imdur] 120 mg PO DAILY Insulin Glargine [Lantus Vial] 20 unit SQ HS INSULIN ASPART (NovoLOG) [NovoLOG (formulary)] 12 unit SQ AC-SUPPER Discharge Medication List DULoxetine HCL [Cymbalta] 30 mg PO HS 03/13/16 [History] levETIRAcetam [Keppra] 500 mg PO BID 12/11/20 [History] Atorvastatin [Lipitor] 20 mg PO HS 07/18/21 [History] Ergocalciferol (Vitamin D2) [Drisdol (50,000 Iu)] 1,250 mcg PO MO 02/24/24 [History] NIFEdipine XL [Procardia XL] 60 mg PO BID 03/04/24 [History] Apixaban [Eliquis] 2.5 mg PO BID #60 tab 03/19/24 [Rx] Aspirin 81 mg PO DAILY tab 03/19/24 [Rx] Acetaminophen Tab [Tylenol] 1,000 mg PO Q6HR PRN 04/17/24 [History] Calcium Acetate 667 mg PO TID-W/MEALS 04/17/24 [History] INSULIN ASPART (NovoLOG) [NovoLOG (formulary)] 10 unit SQ AC-BID@0900,1200 04/17/24 [History] INSULIN ASPART (NovoLOG) [NovoLOG (formulary)] 12 unit SQ AC-SUPPER 04/17/24 [History] Insulin Glargine [Lantus Vial] 20 unit SQ HS 04/17/24 [History] Isosorbide Mononitrate ER [Imdur] 120 mg PO DAILY 04/17/24 [History] Vit B Comp No.3/Folic/C/Biotin [Catie-Loly Rx Tablet] 1 tab PO TUTHSA@0900,2100 04/17/24 [History] calcitrioL [Rocaltrol] 0.25 mcg PO MOWEFR 04/17/24 [History] carvediloL [Coreg*] 12.5 mg PO BID 04/17/24 [History] Famotidine [Pepcid] 20 mg PO DAILY #14 tablet 04/18/24 [Rx] Torsemide [Demadex] 20 mg PO DAILY #30 tab 04/18/24 [Rx] Follow up Appointment(s)/Referral(s): Dennis Santana DO [Primary Care Provider] - 1-2 days Brit Stevens MD [STAFF PHYSICIAN] - 1 Week Arnav Fischer MD [STAFF PHYSICIAN] - 1 Week Patient Instructions/Handouts: Chest Pain (DC), Weakness (DC) Discharge Disposition: HOME SELF-CARE
== END 2024-04-18 18:16 | disposition home or self-care (01) ==
LOC: EC 22:05 → 6NMEDSUR 04-17 02:50
PROVIDERS: ADMIT Hospitalist; ATTEND Hospitalist
DX: R07.89 Other chest pain (principal); I16.0 Hypertensive urgency; I13.2 Hypertensive heart and chronic kidney disease with heart failure and with stage 5 chronic kidney disease, or end stage renal disease; I50.32 Chronic diastolic (congestive) heart failure; N18.6 End stage renal disease; E78.5 Hyperlipidemia, unspecified; G47.30 Sleep apnea, unspecified; E11.42 Type 2 diabetes mellitus with diabetic polyneuropathy; F32.A Depression, unspecified; D63.1 Anemia in chronic kidney disease; N25.0 Renal osteodystrophy; I25.10 Atherosclerotic heart disease of native coronary artery without angina pectoris; E11.22 Type 2 diabetes mellitus with diabetic chronic kidney disease; Z86.16 Personal history of COVID-19; Z86.73 Personal history of transient ischemic attack (TIA), and cerebral infarction without residual deficits; Z99.2 Dependence on renal dialysis; Z79.899 Other long term (current) drug therapy; Z79.4 Long term (current) use of insulin; Z79.01 Long term (current) use of anticoagulants; Z79.82 Long term (current) use of aspirin
CPT/HCPCS: 96374; 99291; 36415; 93005; 93017; 93306; 80053; 80048; 83735 ×2; 84484 ×3; 85025 ×2; 85610; 85730; 71046; 78452; G0378 ×3; A9500; J1940; J2785; 90935

== ENCOUNTER 2024-05-06 13:47 | Emergency (ER) | payer MEDICARE, OTHER ==
--- NOTE | 2024-06-13 11:43 | XR ---
Patient Edgardo Alvarez ID [id number] Order # EXAMINATION TYPE: XR chest 1V DATE OF EXAM: 05/15/2024 COMPARISON: No comparison available on downtime PACS. INDICATION: Hypotension TECHNIQUE: Single frontal view of the chest is obtained. FINDINGS: The heart size is normal. The pulmonary vasculature is normal. The lungs are clear. Catheter overlies right chest with distal superior vena cava region. An electronic device overlies le ft chest. IMPRESSION: 1. No acute pulmonary process.
== END 2024-05-06 18:30 | disposition home or self-care (01) ==
LOC: EC 13:47
CPT/HCPCS: 71045; 99284

== ENCOUNTER 2024-06-25 09:52 | Emergency (ER) | payer MEDICARE, OTHER ==
[2024-06-25 10:09] VITALS: TEMP 98.4
[2024-06-25] MEDS: DEXAMETHASONE SOD PHOSPHATE 4 MG/ML 1 ML VIAL IVP STA (10:49)
[2024-06-25 10:54] LABS: Basophils # (A) 0.1 k/uL (0-0.2); Basophils % (A) 1 %; Eosinophils # (A) 0.2 k/uL (0-0.7); Eosinophils % (A) 3 %; HCT 31.3 % (39.0-53.0); HGB 10.5 gm/dL (13.0-17.5); Lymphocytes # (A) 1.4 k/uL (1.0-4.8); Lymphocytes % (A) 20 %; MCH 31.3 pg (25.0-35.0); MCHC 33.5 g/dL (31.0-37.0); MCV 93.3 fL (80.0-100.0); Mean Platelet Volume 7.4; Monocytes # (A) 0.6 k/uL (0-1.0); Monocytes % (A) 8 %; Neutrophils # (A) 4.6 k/uL (1.3-7.7); Neutrophils % (A) 66 %; Platelet Count 243 k/uL (150-450); RBC 3.35 m/uL (4.30-5.90); RDW 14.3 % (11.5-15.5)
[2024-06-25 11:06] LABS: ALT 15 U/L (4-49); AST 37 U/L (17-59); African American GFR (CKD) 13 (>60 ml/min/1.73 sqM); Albumin 3.9 g/dL (3.5-5.0); Alkaline Phosphatase 119 U/L (38-126); Anion Gap 7 mmol/L; Blood Urea Nitrogen 36 mg/dL (9-20); Calcium 8.6 mg/dL (8.4-10.2); Carbon Dioxide 25 mmol/L (22-30); Chloride 98 mmol/L (98-107); Glucose 137 mg/dL (74-99); Magnesium 2.1 mg/dL (1.6-2.3); Non-African American GFR(CKD) 12 (>60 ml/min/1.73 sqM); Sodium 130 mmol/L (137-145); Total Bilirubin 0.6 mg/dL (0.2-1.3); Total Protein 6.7 g/dL (6.3-8.2)
--- NOTE | 2024-06-25 11:12 | XR ---
EXAMINATION TYPE: XR chest 2V DATE OF EXAM: 06/25/2024 COMPARISON: 04/16/2024 HISTORY: Cough TECHNIQUE: Frontal and lateral views of the chest are obtained. FINDINGS: There is a right-sided dialysis catheter unchanged in position. There is a loop recorder. There is no airspace consolidation. There are stable small bilateral pleural effusions. The heart size is normal. Pulmonary vasculature is not congested. IMPRESSION: Stable small bilateral pleural effusions with no other significant abnormality.. [facility], Workstation: JC, 06/25/2024 11:10 AM
[2024-06-25] MEDS: IPRATROPIUM-ALBUTEROL 3 ML NEB INHALATION STA (11:45)
[2024-06-25 11:49] LABS: Potassium 4.7 mmol/L (3.5-5.1)
--- NOTE | 2024-06-25 12:05 | ED ---
General Adult HPI - General Chief complaint: Upper Respiratory Infection Stated complaint: POLI, cough Time Seen by Provider: 06/25/24 10:15 Source: patient, EMS, RN notes reviewed, old records reviewed Mode of arrival: wheelchair Limitations: no limitations - History of Present Illness Initial comments: Patient is a 78-year-old male with past medical history remarkable for ESRD on hemodialysis via chest port as well as left upper extremity AV fistula who presents emergency department with family over concern for cough. They have noticed that over the last few days he has been having worsening coughing fits. No production of cough. No fevers. No known sick contacts. No nausea, vomiting, abdominal pain. No chest pain. Patient is a history of CVA with no acute symptoms. Brought in by family for evaluation.Patient did miss his run of dialysis of dialysis this morning due to his symptoms. Has not missed any other rounds of dialysis. - Related Data Home Medications Medication Instructions Recorded Confirmed DULoxetine HCL [Cymbalta] 30 mg PO HS 03/13/16 04/17/24 levETIRAcetam [Keppra] 500 mg PO BID 12/11/20 04/17/24 Atorvastatin [Lipitor] 20 mg PO HS 07/18/21 04/17/24 Ergocalciferol (Vitamin D2) 1,250 mcg PO MO 02/24/24 04/17/24 [Drisdol (50,000 Iu)] NIFEdipine XL [Procardia XL] 60 mg PO BID 03/04/24 04/17/24 Acetaminophen Tab [Tylenol] 1,000 mg PO Q6HR PRN 04/17/24 04/17/24 Calcium Acetate 667 mg PO TID-W/MEALS 04/17/24 04/17/24 INSULIN ASPART (NovoLOG) [NovoLOG 10 unit SQ AC-BID@0900,1200 04/17/24 04/17/24 (formulary)] INSULIN ASPART (NovoLOG) [NovoLOG 12 unit SQ AC-SUPPER 04/17/24 04/17/24 (formulary)] Insulin Glargine [Lantus Vial] 20 unit SQ HS 04/17/24 04/17/24 Isosorbide Mononitrate ER [Imdur] 120 mg PO DAILY 04/17/24 04/17/24 Vit B Comp No.3/Folic/C/Biotin 1 tab PO TUTHSA@0900,2100 04/17/24 04/17/24 [Catie-Loly Rx Tablet] calcitrioL [Rocaltrol] 0.25 mcg PO MOWEFR 04/17/24 04/17/24 carvediloL [Coreg*] 12.5 mg PO BID 04/17/24 04/17/24 Previous Rx's Medication Instructions Recorded Apixaban [Eliquis] 2.5 mg PO BID #60 tab 03/19/24 Aspirin 81 mg PO DAILY tab 03/19/24 Famotidine [Pepcid] 20 mg PO DAILY #14 tablet 04/18/24 Torsemide [Demadex] 20 mg PO DAILY #30 tab 04/18/24 Albuterol Inhaler [Ventolin Hfa 2 puff INHALATION QID #8 gm 06/25/24 Inhaler] Azithromycin [Zithromax Z Pack] 250 mg PO DAILY 4 Days #4 tab 06/25/24 Allergies Allergy/AdvReac Type Severity Reaction Status Date / Time No Known Allergies Allergy Verified 04/17/24 11:09 Review of Systems ROS Statement: Those systems with pertinent positive or pertinent negative responses have been documented in the HPI. Review of Systems: CONST: Denies fever EYES: Denies blurry vision ENT: Endorses nasal congestion, cough C/V: Denies Chest pain RESP: Denies shortness of breath GI: Denies abdominal pain : Denies dysuria SKIN: Denies rash. MSK: Denies joint pain. NEURO: Denies headache ROS Other: All systems not noted in ROS Statement are negative. Past Medical History Past Medical History: CVA/TIA, Diabetes Mellitus, Hyperlipidemia, Hypertension, Liver Disease, Renal Disease, Sleep Apnea/CPAP/BIPAP Additional Past Medical History / Comment(s): ARTHRITIS, kidney stones, possible dementia, kidney failure, neuropathy alia legs, carpal tunnel. CVA-oct 20 balance issues,speech impairment,vision impairment, receives injections to eyes r/t bleeding ,COVID 07/28/2022 History of Any Multi-Drug Resistant Organisms: None Reported Past Surgical History: Back Surgery, Cholecystectomy Additional Past Surgical History / Comment(s): MASS REMOVED FROM BACK OF HEAD, eye surgery, Past Anesthesia/Blood Transfusion Reactions: No Reported Reaction Past Psychological History: Depression Smoking Status: Never smoker Past Alcohol Use History: None Reported Past Drug Use History: None Reported - Past Family History Father Family Medical History: Diabetes Mellitus Mother Family Medical History: Diabetes Mellitus Brother(s) Family Medical History: Cancer Sister(s) Family Medical History: Cancer General Exam - General Exam Comments Initial Comments: General: Appears in no acute distress. HEAD: Normal with no signs of head trauma. EYES: PERRLA, EOMI, conjunctiva normal, no discharge. ENT: Hearing grossly intact, normal oropharynx. RESPIRATORY: Breath sounds bilaterally. Seems to be more central. No significant hypoxia. No increased work of breathing. C/V: Regular rate and rhythm. S1 and S2 auscultated, no edema, peripheral pulses 2+ and intact throughout left upper extremity AV fistula has palpable thrill and audible bruit. ABD: Abd is soft, nontender, nondistended EXT: Normal range of motion, no obvious deformity SKIN: No rashes or lesions observed on exposed skin. NEURO: Alert and oriented at baseline. Limitations: no limitations Course Vital Signs 06/25/24 06/25/24 06/25/24 10:01 11:46 11:55 Temperature 98.4 F Pulse Rate 58 L 60 62 Respiratory 20 Rate Blood Pressure 102/62 O2 Sat by Pulse 97 Oximetry 06/25/24 13:07 Temperature Pulse Rate 78 Respiratory 17 Rate Blood Pressure 118/76 O2 Sat by Pulse 98 Oximetry Medical Decision Making - Medical Decision Making Was pt. sent in by a medical professional or institution (CALLI Kelley, FUNDRAISING SALE REPRESENTATIVE, urgent care, hospital, or retirement...) When possible be specific @ -No Did you speak to anyone other than the patient for history (EMS, parent, family, police, friend...)? What history was obtained from this source @ -Yes family members are the primary historians for the patient due to his history of stroke. Did you review nursing and triage notes (agree or disagree)? Why? @ -I reviewed and agree with nursing and triage notes Were old charts reviewed (outside hosp., previous admission, EMS record, old EKG, old radiological studies, urgent care reports/EKG's, retirement records)? Report findings @ -No old charts were reviewed Differential Diagnosis (chest pain, altered mental status, abdominal pain women, abdominal pain men, vaginal bleeding, weakness, fever, dyspnea, syncope, headache, dizziness, GI bleed, back pain, seizure, CVA, palpatations, mental health, musculoskeletal)? @ -URI, COVID, flu, RSV, pneumonia. This list is not all inclusive. EKG interpreted by me (3pts min.). @ -As above X-rays interpreted by me (1pt min.). @ -Chest x-ray reveals no obvious acute cardiopulmonary process. Chronic small bilateral pleural effusions. CT interpreted by me (1pt min.). @ -None done U/S interpreted by me (1pt. min.). @ -None done What testing was considered but not performed or refused? (CT, X-rays, U/S, labs)? Why? @ -None What meds were considered but not given or refused? Why? @ -None Did you discuss the management of the patient with other professionals (professionals i.e. , PA, FUNDRAISING SALE REPRESENTATIVE, lab, RT, psych nurse, family welfare social work professor, ambulatory services representative, teacher, annual giving officer, case briefer)? Give summary @ -No Was smoking cessation discussed for >3mins.? @ -No Was critical care preformed (if so, how long)? @ -No Were there social determinants of health that impacted care today? How? (Homele ssness, low income, unemployed, alcoholism, drug addiction, transportation, low edu. Level, literacy, decrease access to med. care, prison, rehab)? @ -No Was there de-escalation of care discussed even if they declined (Discuss DNR or withdrawal of care, Hospice)? DNR status @ -No What co-morbidities impacted this encounter? (DM, HTN, Smoking, COPD, CAD, Cancer, CVA, ARF, Chemo, Hep., AIDS, mental health diagnosis, sleep apnea, morbid obesity)? @ -None Was patient admitted / discharged? Hospital course, mention meds given and route, prescriptions, significant lab abnormalities, going to OR and other pertinent info. @ -Patient presents emergency department for missed dialysis as well as URI symptoms. We will obtain basic labs as well as viral swabs and chest x-ray. Patient be symptomatically treated with a dose of steroids as well as a breathing treatment. Family and patient in agreement this plan. Vitals within acceptable limits. Chest x-ray is unremarkable. Laboratory studies unremarkable except for elevated BUN and creatinine in the setting of ESRD on hemodialysis. Electrol ytes are within acceptable limits. No indication for emergent dialysis. Viral swabs negative. Discussed results with patient as well as family. Likely has some degree of tracheobronchitis. Patient due to his past medical history and at family request will be started on antibiotics empirically. Also be given a prescription for albuterol. Patient and family in agreement this plan. Instructed they follow-up with dialysis center to obtain dialysis run either today or on Thursday. They were in agreement this plan. I will provide the patient with a prescription for azithromycin, al[facility]erol [facility]. I instructed the patient to follow up with their PCP in the next 1-3 days.. I explained that the patient should return to the emergency department if they experience any worsening symptoms. Strict return precautions were discussed with the patient. The patient expressed understanding of these instructions. I answered all questions that the patient had. The patient was discharged home in good condition with their prescriptions and follow up information. Undiagnosed new problem with uncertain prognosis? @ -No Drug Therapy requiring intensive monitoring for toxicity (Heparin, Nitro, Insu dorothy, Cardizem)? @ -No Were any procedures done? @ -No Diagnosis/symptom? @ -Tracheobronchitis Acute, or Chronic, or Acute on Chronic? @ -Acute Uncomplicated (without systemic symptoms) or Complicated (systemic symptoms)? @ -uncomplicated Side effects of treatment? @ -No Exacerbation, Progression, or Severe Exacerbation? @ -No Poses a threat to life or bodily function? How? (Chest pain, USA, LA, pneumonia, PE, COPD, DKA, ARF, appy, cholecystitis, CVA, Diverticulitis, Homicidal, Suicidal, threat to staff... and all critical care pts) @ -Unlikely - Lab Data Result diagrams: 06/25/24 10:25 06/25/24 10:25 Lab Results 06/25/24 06/25/24 06/25/24 Range/Units 10:25 10:25 10:25 WBC 7.0 (3.8-10.6) k/uL RBC 3.35 L (4.30-5.90) m/uL Hgb 10.5 L (13.0-17.5) gm/dL Hct 31.3 L (39.0-53.0) % MCV 93.3 (80.0-100.0) fL MCH 31.3 (25.0-35.0) pg MCHC 33.5 (31.0-37.0) g/dL RDW 14.3 (11.5-15.5) % Plt Count 243 (150-450) k/uL MPV 7.4 Neutrophils % 66 % Lymphocytes % 20 % Monocytes % 8 % Eosinophils % 3 % Basophils % 1 % Neutrophils # 4.6 (1.3-7.7) k/uL Lymphocytes # 1.4 (1.0-4.8) k/uL Monocytes # 0.6 (0-1.0) k/uL Eosinophils # 0.2 (0-0.7) k/uL Basophils # 0.1 (0-0.2) k/uL Sodium 130 L (137-145) mmol/L Potassium 4.7 (3.5-5.1) mmol/L Chloride 98 (98-107) mmol/L Carbon Dioxide 25 (22-30) mmol/L Anion Gap 7 mmol/L BUN 36 H (9-20) mg/dL Creatinine 4.54 H (0.66-1.25) mg/dL Est GFR (CKD-EPI)AfAm 13 (>60 ml/min/1.73 sqM) Est GFR (CKD-EPI)NonAf 12 (>60 ml/min/1.73 sqM) Glucose 137 H (74-99) mg/dL Calcium 8.6 (8.4-10.2) mg/dL Magnesium 2.1 (1.6-2.3) mg/dL Total Bilirubin 0.6 (0.2-1.3) mg/dL AST 37 (17-59) U/L ALT 15 (4-49) U/L Alkaline Phosphatase 119 (38-126) U/L Total Protein 6.7 (6.3-8.2) g/dL Albumin 3.9 (3.5-5.0) g/dL Influenza Type A (PCR) Not Detected (Not Detectd) Influenza Type B (PCR) Not Detected (Not Detectd) RSV (PCR) Not Detected (Not Detectd) SARS-CoV-2 (PCR) Not Detected (Not Detectd) Disposition Clinical Impression: Tracheobronchitis, ESRD (end stage renal disease) Disposition: HOME SELF-CARE Condition: Good Instructions (If sedation given, give patient instructions): Upper Respiratory Infection (ED) Additional Instructions: Follow up with dialysis clinic for dialysis. Prescriptions: Albuterol Inhaler [Ventolin Hfa Inhaler] 2 puff INHALATION QID #8 gm Azithromycin [Zithromax Z Pack] 250 mg PO DAILY 4 Days #4 tab Is patient prescribed a controlled substance at d/c from ED?: No Referrals: Dennis Santana DO [Primary Care Provider] - 1-2 days Time of Disposition: 11:58
[2024-06-25] MEDS: AZITHROMYCIN 500 MG TAB PO STA (12:49)
[2024-06-25 13:08] VITALS: BP 118/76; PULSE 78; RESP 17
== END 2024-06-25 12:30 | disposition home or self-care (01) ==
LOC: EC 09:52
CPT/HCPCS: 36415; 71046; 80053; 83735; 85025; 87636; 94640; 96374; 99285

== ENCOUNTER 2024-09-11 10:28 | Observation (INO) | payer MEDICARE, OTHER ==
--- NOTE | 2024-09-11 11:07 | ED ---
General Adult HPI - General Chief complaint: Shortness of Breath Stated complaint: respiratory issues Time Seen by Provider: 09/11/24 10:30 Source: patient, lang interpreter Mode of arrival: EMS Limitations: no limitations - History of Present Illness Initial comments: Dictation was produced using [employer] dictation software. please excuse any grammatical, word or spelling errors. Chief Complaint: 79-year-old male presents with shortness of breath History of Present Illness: Patient is a 79-year-old male presents to the emergency department for shortness of breath. Patient has extensive medical history including diabetes, ESRD, liver disease stroke and blindness. Brought in by EMS from home. Patient is a poor historian he states that he is here for shortness of breath. He lives at home and apparently patient's family was concerned about his breathing. Patient denies any cough. Denies any pain complaints. The ROS documented in this emergency department record has been reviewed and confirmed by me. Those systems with pertinent positive or negative responses have been documented in the HPI. All other systems are other negative and/or noncontributory. - Related Data Home Medications Medication Instructions Recorded Confirmed DULoxetine HCL [Cymbalta] 30 mg PO HS 03/13/16 04/17/24 levETIRAcetam [Keppra] 500 mg PO BID 12/11/20 04/17/24 Atorvastatin [Lipitor] 20 mg PO HS 07/18/21 04/17/24 Ergocalciferol (Vitamin D2) 1,250 mcg PO MO 02/24/24 04/17/24 [Drisdol (50,000 Iu)] NIFEdipine XL [Procardia XL] 60 mg PO BID 03/04/24 04/17/24 Acetaminophen Tab [Tylenol] 1,000 mg PO Q6HR PRN 04/17/24 04/17/24 Calcium Acetate 667 mg PO TID-W/MEALS 04/17/24 04/17/24 INSULIN ASPART (NovoLOG) [NovoLOG 10 unit SQ AC-BID@0900,1200 04/17/24 04/17/24 (formulary)] INSULIN ASPART (NovoLOG) [NovoLOG 12 unit SQ AC-SUPPER 04/17/24 04/17/24 (formulary)] Insulin Glargine [Lantus Vial] 20 unit SQ HS 04/17/24 04/17/24 Isosorbide Mononitrate ER [Imdur] 120 mg PO DAILY 04/17/24 04/17/24 Vit B Comp No.3/Folic/C/Biotin 1 tab PO TUTHSA@0900,2100 04/17/24 04/17/24 [Catie-Loly Rx Tablet] calcitrioL [Rocaltrol] 0.25 mcg PO MOWEFR 04/17/24 04/17/24 carvediloL [Coreg*] 12.5 mg PO BID 04/17/24 04/17/24 Previous Rx's Medication Instructions Recorded Apixaban [Eliquis] 2.5 mg PO BID #60 tab 03/19/24 Aspirin 81 mg PO DAILY tab 03/19/24 Famotidine [Pepcid] 20 mg PO DAILY #14 tablet 04/18/24 Torsemide [Demadex] 20 mg PO DAILY #30 tab 04/18/24 Albuterol Inhaler [Ventolin Hfa 2 puff INHALATION QID #8 gm 06/25/24 Inhaler] Azithromycin [Zithromax Z Pack] 250 mg PO DAILY 4 Days #4 tab 06/25/24 Allergies Allergy/AdvReac Type Severity Reaction Status Date / Time No Known Allergies Allergy Verified 04/17/24 11:09 Review of Systems ROS Statement: Those systems with pertinent positive or pertinent negative responses have been documented in the HPI. ROS Other: All systems not noted in ROS Statement are negative. Past Medical History Past Medical History: CVA/TIA, Diabetes Mellitus, Hyperlipidemia, Hypertension, Liver Disease, Renal Disease, Sleep Apnea/CPAP/BIPAP Additional Past Medical History / Comment(s): ARTHRITIS, kidney stones, possible dementia, kidney failure, neuropathy alia legs, carpal tunnel. CVA-jul 17 balance issues,speech impairment,vision impairment, receives injections to eyes r/t bleeding ,COVID 07/28/2022 History of Any Multi-Drug Resistant Organisms: None Reported Past Surgical History: Back Surgery, Cholecystectomy Additional Past Surgical History / Comment(s): MASS REMOVED FROM BACK OF HEAD, eye surgery, Past Anesthesia/Blood Transfusion Reactions: No Reported Reaction Past Psychological History: Depression Smoking Status: Never smoker Past Alcohol Use History: None Reported Past Drug Use History: None Reported - Past Family History Father Family Medical History: Diabetes Mellitus Mother Family Medical History: Diabetes Mellitus Brother(s) Family Medical History: Cancer Sister(s) Family Medical History: Cancer General Exam - General Exam Comments Initial Comments: PHYSICAL EXAM: General Impression: Alert and oriented x3, not in acute distress HEENT: Normocephalic atraumatic, extra-ocular movements intact, pupils equal and reactive to light bilaterally, mucous membranes moist. Cardiovascular: Heart regular rate and rhythm Chest: Able to complete full sentences, no retractions, no tachypnea, clear to auscultation bilaterally Abdomen: abdomen soft, non-tender, non-distended, no organomegaly Musculoskeletal: Good cap refill to all extremities no peripheral edema Motor: no focal deficits noted Neurological: CN II-XII grossly intact, no focal motor or sensory deficits noted Skin: Intact with no visualized rashes, dialysis access to the left upper extremity clean dry and intact Psych: Normal affect and mood Limitations: no limitations Course Vital Signs 09/11/24 09/11/24 09/11/24 10:36 12:11 12:20 Temperature 98.3 F Pulse Rate 70 73 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 Daughter and are at the bedside states that patient had a 3-minute episode where he was unresponsive and appeared to be apneic. Clinical presentation concerning for syncopal episode. Reevaluated at bedside at 12:46 PM found to be in stable mental condition. He states he appears to be tired however does not appear to be distressed. EKG Findings - EKG Comments: EKG Findings:: My EKG interpretation: Ventricular rate 74, sinus rhythm,. 171, QRS 102, QTc 423. No NE prolongation, no QTC prolongation, no ST or T-wave changes noted. Overall, this EKG is unremarkable Medical Decision Making - Medical Decision Making Was pt. sent in by a medical professional or institution (, PA, MAINTENANCE DIRECTOR, urgent care, hospital, or assisted...) When possible be specific @ -No Did you speak to anyone other than the patient for history (EMS, parent, family, police, friend...)? What history was obtained from this source @ -See above Did you review nursing and triage notes (agree or disagree)? Why? @ -I reviewed and agree with nursing and triage notes Were old charts reviewed (outside hosp., previous admission, EMS record, old EKG, old radiological studies, urgent care reports/EKG's, assisted records)? Report findings @ -No old charts were reviewed Differential Diagnosis (chest pain, altered mental status, abdominal pain women, abdominal pain men, vaginal bleeding, musculoskeletal, weakness, fever, dyspnea, syncope, headache, dizziness, GI bleed, back pain, seizure, CVA, palpatations, mental health)? @ -Differential Syncope: Valvular disease, hypertrophic cardiomyopathy, pulmonary embolism, tamponade, tachycardia, bradycardia, DE, hypovolemia, hemorrhage, dissection, anemia, intracranial hemorrhage, seizure, hypoglycemia, carbon monoxide poisoning, this is not meant to be an all-inclusive list. EKG interpreted by me (3pts min.). @ -See above X-rays interpreted by me (1pt min.). @ -Chest x-ray shows no acute processes CT interpreted by me (1pt min.). @ -CT brain and C-spine shows no acute processes U/S interpreted by me (1pt. min.). @ -None done What testing was considered but not performed or refused? (CT, X-rays, U/S, labs)? Why? @ -None What meds were considered but not given or refused? Why? @ -None Was smoking cessation discussed for >3mins.? @ -No Were there social determinants of health that impacted care today? How? (Homelessness, low income, unemployed, alcoholism, drug addiction, transportation, low edu. Level, literacy, decrease access to med. care, custodial, rehab)? @ -No Was there de-escalation of care discussed even if they declined (Discuss DNR or withdrawal of care, Hospice)? DNR status @ -No What co-morbidities impacted this encounter? (DM, HTN, Smoking, COPD, CAD, Cancer, CVA, ARF, Chemo, Hep., AIDS, mental health diagnosis, sleep apnea, morbid obesity)? @ -Renal failure, liver disease, diabetes, stroke Was patient admitted / discharged? Hospital course, mention meds given and r oute, prescriptions, significant lab abnormalities, going to OR and other pertinent info. @ -71-year-old male presents to the emergency department for what is described by family as a syncopal event. States that he was unresponsive choking for approximately 3 minutes. No convulsions described by family. Patient upon arrival appears to be well-appearing no acute distress. Vital signs are stable. Laboratory evaluation obtained shows findings within acceptable limits. Patient reevaluated bedside at 1:58 PM found to be stable mental condition. CT brain and C-spine shows no acute processes. Family is concerned that he fell back and hurt his head. Given patient's comorbidities he is considered high risk will be admitted with consultation to cardiology. Patient will be monitored medically. Case discussed with hospitalist for admission Did you discuss the management of the patient with other professionals (professionals i.e. , PA, MAINTENANCE DIRECTOR, lab, RT, psych nurse, social work administrator, crusher loader equipment operator, teacher, parking control officer, onsite case manager)? Give summary @ -See above Was critical care preformed (if so, how long)? @ -No Undiagnosed new problem with uncertain prognosis? @ -No Drug Therapy requiring intensive monitoring for toxicity (Heparin, Nitro, Insulin, Cardizem)? @ -No Were any procedures done? @ -No Diagnosis/symptom? Acute, or Chronic, or Acute on Chronic? Uncomplicated (without systemic symptoms) or Complicated (systemic symptoms)? @ -Syncope Side effects of treatment? @ -No Exacerbation, Progression, or Severe Exacerbation? @ -No Poses a threat to life or bodily function? How? (Chest pain, USA, DE, pneumonia, PE, COPD, DKA, ARF, appy, cholecystitis, CVA, Diverticulitis, Homicidal, Suicidal, threat to staff... and all critical care pts) @ -yes - Lab Data Result diagrams: 09/11/24 11:46 09/11/24 11:46 Lab Results 09/11/24 09/11/24 09/11/24 Range/Units 11:46 11:46 11:46 WBC 6.7 (3.8-10.6) k/uL RBC 3.57 L (4.30-5.90) m/uL Hgb 11.2 L (13.0-17.5) gm/dL Hct 34.0 L (39.0-53.0) % MCV 95.2 (80.0-100.0) fL MCH 31.4 (25.0-35.0) pg MCHC 33.0 (31.0-37.0) g/dL RDW 13.4 (11.5-15.5) % Plt Count 306 (150-450) k/uL MPV 6.9 Neutrophils % 67 % Lymphocytes % 20 % Monocytes % 8 % Eosinophils % 2 % Basophils % 1 % Neutrophils # 4.5 (1.3-7.7) k/uL Lymphocytes # 1.4 (1.0-4.8) k/uL Monocytes # 0.6 (0-1.0) k/uL Eosinophils # 0.1 (0-0.7) k/uL Basophils # 0.1 (0-0.2) k/uL Sodium 137 (137-145) mmol/L Potassium 3.6 (3.5-5.1) mmol/L Chloride 96 L (98-107) mmol/L Carbon Dioxide 35 H (22-30) mmol/L Anion Gap 6 mmol/L BUN 33 H (9-20) mg/dL Creatinine 3.09 H (0.66-1.25) mg/dL Est GFR (CKD-EPI)AfAm 21 (>60 ml/min/1.73 sqM) Est GFR (CKD-EPI)NonAf 18 (>60 ml/min/1.73 sqM) Glucose 198 H (74-99) mg/dL Plasma Lactic Acid Jens 0.9 (0.7-2.0) mmol/L Calcium 8.6 (8.4-10.2) mg/dL Magnesium 2.1 (1.6-2.3) mg/dL Troponin I (0.000-0.034) ng/mL NT-Pro-B Natriuret Pep 3070 pg/mL Influenza Type A (PCR) (Not Detectd) Influenza Type B (PCR) (Not Detectd) RSV (PCR) (Not Detectd) SARS-CoV-2 (PCR) (Not Detectd) 09/11/24 09/11/24 Range/Units 11:46 11:46 WBC (3.8-10.6) k/uL RBC (4.30-5.90) m/uL Hgb (13.0-17.5) gm/dL Hct (39.0-53.0) % MCV (80.0-100.0) fL MCH (25.0-35.0) pg MCHC (31.0-37.0) g/dL RDW (11.5-15.5) % Plt Count (150-450) k/uL MPV Neutrophils % % Lymphocytes % % Monocytes % % Eosinophils % % Basophils % % Neutrophils # (1.3-7.7) k/uL Lymphocytes # (1.0-4.8) k/uL Monocytes # (0-1.0) k/uL Eosinophils # (0-0.7) k/uL Basophils # (0-0.2) k/uL Sodium (137-145) mmol/L Potassium (3.5-5.1) mmol/L Chloride (98-107) mmol/L Carbon Dioxide (22-30) mmol/L Anion Gap mmol/L BUN (9-20) mg/dL Creatinine (0.66-1.25) mg/dL Est GFR (CKD-EPI)AfAm (>60 ml/min/1.73 sqM) Est GFR (CKD-EPI)NonAf (>60 ml/min/1.73 sqM) Glucose (74-99) mg/dL Plasma Lactic Acid Jens (0.7-2.0) mmol/L Calcium (8.4-10.2) mg/dL Magnesium (1.6-2.3) mg/dL Troponin I <0.012 (0.000-0.034) ng/mL NT-Pro-B Natriuret Pep pg/mL Influenza Type A (PCR) Not Detected (Not Detectd) Influenza Type B (PCR) Not Detected (Not Detectd) RSV (PCR) Not Detected (Not Detectd) SARS-CoV-2 (PCR) Not Detected (Not Detectd) Disposition Clinical Impression: Syncope Disposition: ADMITTED IP TO THIS HOSP Condition: Fair Referrals: Dennis Santana DO [Primary Care Provider] - 1-2 days Decision Time: 13:58
--- NOTE | 2024-09-11 11:44 | XR ---
EXAMINATION TYPE: XR chest 2V DATE OF EXAM: 09/11/2024 11:02 AM COMPARISON: Chest radiographs from 06/25/2024. CLINICAL INDICATION: Male, 79 years old with history of dyspnea; TECHNIQUE: XR chest 2V Frontal and lateral views of the chest. FINDINGS: Lungs/Pleura: There is no evidence of pleural effusion, focal consolidation, or pneumothorax. Pulmonary vascularity: Unremarkable. Heart/mediastinum: Cardiomediastinal silhouette is unremarkable. A loop recorder projects over the le ft thorax over the heart. Musculoskeletal: No acute osseous pathology. IMPRESSION: No acute cardiopulmonary disease/process. [facility], , 09/11/2024 11:42 AM
[2024-09-11 12:08] LABS: Basophils # (A) 0.1 k/uL (0-0.2); Basophils % (A) 1 %; Eosinophils # (A) 0.1 k/uL (0-0.7); Eosinophils % (A) 2 %; HGB 11.2 gm/dL (13.0-17.5); Lymphocytes # (A) 1.4 k/uL (1.0-4.8); Lymphocytes % (A) 20 %; MCH 31.4 pg (25.0-35.0); MCV 95.2 fL (80.0-100.0); Mean Platelet Volume 6.9; Monocytes # (A) 0.6 k/uL (0-1.0); Monocytes % (A) 8 %; Neutrophils # (A) 4.5 k/uL (1.3-7.7); Neutrophils % (A) 67 %; Platelet Count 306 k/uL (150-450); RBC 3.57 m/uL (4.30-5.90); RDW 13.4 % (11.5-15.5); WBC 6.7 k/uL (3.8-10.6)
[2024-09-11 12:13] LABS: African American GFR (CKD) 21 (>60 ml/min/1.73 sqM); Anion Gap 6 mmol/L; Blood Urea Nitrogen 33 mg/dL (9-20); Calcium 8.6 mg/dL (8.4-10.2); Carbon Dioxide 35 mmol/L (22-30); Chloride 96 mmol/L (98-107); Glucose 198 mg/dL (74-99); Magnesium 2.1 mg/dL (1.6-2.3); Non-African American GFR(CKD) 18 (>60 ml/min/1.73 sqM); Potassium 3.6 mmol/L (3.5-5.1); Sodium 137 mmol/L (137-145)
[2024-09-11 12:21] LABS: NT-Pro-B-Type Natriuretic Pept 3070 pg/mL
--- NOTE | 2024-09-11 13:43 | CT ---
EXAMINATION TYPE: CT brain cspine wo con DATE OF EXAM: 09/11/2024 1:32 PM COMPARISON: None. CLINICAL INDICATION: Male, 79 years old with history of fall; fall, ams TECHNIQUE: Brain: Multiple axial CT images of the brain were obtained without IV contrast. Cspine: Axial CT images from the skull base to the inferior aspect of T2 we obtained without intraven ous contrast. Coronal and sagittal reformatted images were also reviewed. . CT DLP: 1561.8 mGycm, Automated exposure control for dose reduction was used. FINDINGS: Brain: Extra-axial spaces: No abnormal extra-axial fluid collections. Ventricular system: Dilatation in proportion to cerebral atrophy. Cerebral parenchyma: Encephalomalacia of the left parietal posterior right frontal lobes from prior i njuries Cerebral atrophy. No acute intraparenchymal hemorrhage or mass effect. The hernandez-white juncti on is well differentiated. Scattered hypoattenuating areas are seen within the white matter. Cerebellum: Unremarkable. Mass effect: No evidence of midline shift. Intracranial vasculature: unremarkable Soft tissues: Normal. Calvarium/osseous structures: No depressed skull fracture. Paranasal sinuses and mastoid air cells: Clear. Visualized orbits: Orbital contents are intact. Cervical spine: Fracture: None. Osseous structures: Multilevel degenerative disc disease changes with endplate spurring and disc oste ophyte complex's. Schmorl's node at the superior end plate of C6. Vertebral alignment: Within normal limits. Spinal canal/Neural Foramina: No evidence of significant spinal canal narrowing. No evidence for sign ificant neural foraminal stenosis. Neck soft tissues: Prevertebral soft tissues are within normal limits. Other: The airway is patent. Small bilateral pleural effusions. IMPRESSION: 1. No acute intracranial process. 2. Remote injuries to the left parietal region and posterior right frontal lobe. 3. No evidence of cervical spine fracture. 4. Moderate to severe multilevel degenerative disc disease worse at C5-C6 and C6-C7. 5. Small bilateral pleural effusions partially visualized. [facility], , 09/11/2024 1:41 PM
[2024-09-11] MEDS ORDERED: NALOXONE 0.4 MG/ML 1 ML VIAL IV PRN (13:55)
[2024-09-11] MEDS: ACETAMINOPHEN TAB 500 MG TAB PO STA (15:19)
[2024-09-11] MEDS: SODIUM CHLORIDE 0.9% 1,000 ML IV SCH (15:22)
[2024-09-11] MEDS ORDERED: MIDODRINE 5 MG TAB PO PRN (15:50)
[2024-09-11] MEDS ORDERED: ALBUTEROL NEBULIZED 2.5 MG/3 ML INHALATION PRN (15:50)
[2024-09-11 17:01] LABS: Glucose,Whole Blood 177 mg/dL (70-110)
[2024-09-11] MEDS: carvediloL 12.5 MG TAB PO SCH (18:27)
[2024-09-11] MEDS: INSULIN ASPART (NovoLOG) 100 UNIT/ML VIAL SQ SCH (18:28)
[2024-09-11] MEDS: INSULIN DETEMIR (LEVEMIR) 100 UNIT/ML SYR SQ SCH (20:12)
[2024-09-11] MEDS: levETIRAcetam 500 MG TAB PO SCH (20:12)
[2024-09-11] MEDS: ATORVASTATIN 20 MG TAB PO SCH (20:12)
[2024-09-11] MEDS: DULoxetine HCL 30 MG CAPSULE.DR PO SCH (20:12)
[2024-09-12 04:08] LABS: Glucose,Whole Blood 104 mg/dL (70-110)
[2024-09-12 08:20] LABS: Glucose,Whole Blood 65 mg/dL (70-110)
[2024-09-12 08:43] LABS: Glucose,Whole Blood 94 mg/dL (70-110)
[2024-09-12] MEDS: INSULIN ASPART (NovoLOG) 100 UNIT/ML VIAL SQ SCH ×2 (09:50→13:01)
[2024-09-12] MEDS: ERGOCALCIFEROL 1,250 MCG (50,000 IU) CAPSULE PO SCH (09:50)
[2024-09-12] MEDS: ISOSORBIDE MONONITRATE ER 60 MG TAB.ER.24H PO SCH (09:50)
[2024-09-12] MEDS: ASPIRIN 81 MG PO SCH (09:52)
--- NOTE | 2024-09-12 10:17 | P.CRDCN ---
History of Present Illness History of present illness: HISTORY OF PRESENT ILLNESS: This is a 79-year-old male with a past medical history significant for coronary artery disease, hypertension, hyperlipidemia, CVA, diabetes, and CKD. Patient elaine robertss in the office with Dr. Fischer. We have been asked to see the patient in consultation for syncope. Patient examined at the bedside by Dr. Fischer. Patient's is at the bedside and providing majority of history. Apparently the patient recently had bronchitis and has been coughing frequently. After 1 of these coughing episodes, he apparently passed out. Patient currently denies chest pain or pressure. He reports mild shortness of breath. He continues to have a cough. Blood pressure on the higher side with a systolic between [id number]. DIAGNOSTICS: - EKG reveals sinus mechanism with no signs of acute ischemia - Chest xray negative for acute process - Laboratory data: WBC 6.7. Hemoglobin 11.2. Platelet count 306. Sodium 137. Potassium 3.6. BUN 33. Creatinine 3.09. Troponin negative x 2. proBNP 3070. - Current home cardiac medications include aspirin 162.5 mg daily, Lipitor 20 mg at night, Imdur 120 mg daily, midodrine 10 mg 3 times a day as needed, nifedipine 60 mg twice a day, Demadex 20 mg daily, carvedilol 12.5 mg twice a day - Most recent echocardiogram obtained in March 2024 revealing ejection fraction 55%, trace to mild aortic regurgitation, mild mitral regurgitation, mild tricuspid regurgitation -Patient underwent Lexiscan stress test in March 2024 which was negative for ischemia - Cardiac catheterization history: 2008 revealing proximal LAD 40%, mid LAD 50%, diagonal 50%, circumflex 56%, and nondominant RCA with no significant stenosis REVIEW OF SYSTEMS: At the time of my exam: CONSTITUTIONAL: Denies fever or chills. HEENT: Denies blurred vision, vision changes, or eye pain. Denies hemoptysis CARDIOVASCULAR: Denies chest pain. Denies orthopnea. Denies PND. Denies palpitations RESPIRATORY: Denies shortness of breath. GASTROINTESTINAL: Denies abdominal pain. Denies nausea or vomiting. HEMATOLOGIC: Denies bleeding disorders. GENITOURINARY: Denies any blood in urine. SKIN: Denies pruitis. Denies rash. PHYSICAL EXAM: VITAL SIGNS: Reviewed. GENERAL: Well-developed in no acute distress. HEENT: Head is normocephalic. Pupils are equal, round. Sclerae anicteric. Mucous membranes of the mouth are moist. Neck supple. No JVD or thyromegaly LUNGS: Respirations even and unlabored. Lungs with rhonchi throughout HEART: Regular rate and rhythm. S1 and S2 heard. Systolic murmur noted ABDOMEN: Soft. Nondistended. Nontender. EXTREMITIES: Normal range of motion. No clubbing or cyanosis. Peripheral pulses intact. No lower extremity edema NEUROLOGIC: Awake and alert. Oriented x 3. ASSESSMENT: Syncope, likely tussive syncope Nonobstructive CAD, per cath 2008 History of loop recorder implantation Chronic kidney disease Hypertension Hyperlipidemia History of CVA Diabetes PLAN: An acute coronary event has been ruled out Obtain 2D echo to assess cardiac structure and function Resume home cardiac medications Interrogate loop recorder ([employer]) Continue telemetry monitoring Further recommendations pending patient course Nurse practitioner note has been reviewed by physician. Signing provider agrees with the documented findings, assessment, and plan of care documented by PONY TRIMMER as a scribe. Past Medical History Past Medical History: CVA/TIA, Diabetes Mellitus, Hyperlipidemia, Hypertension, Liver Disease, Renal Disease, Sleep Apnea/CPAP/BIPAP Additional Past Medical History / Comment(s): ARTHRITIS, kidney stones, possible dementia, kidney failure, neuropathy alia legs, carpal tunnel. CVA-jul 17 balance issues,speech impairment,vision impairment, receives injections to eyes r/t bleeding ,COVID 07/28/2022 History of Any Multi-Drug Resistant Organisms: None Reported Past Surgical History: Back Surgery, Cholecystectomy Additional Past Surgical History / Comment(s): MASS REMOVED FROM BACK OF HEAD, eye surgery, Past Anesthesia/Blood Transfusion Reactions: No Reported Reaction Past Psychological History: Depression Smoking Status: Never smoker Past Alcohol Use History: None Reported Past Drug Use History: None Reported - Past Family History Father Family Medical History: Diabetes Mellitus Mother Family Medical History: Diabetes Mellitus Brother(s) Family Medical History: Cancer Sister(s) Family Medical History: Cancer Medications and Allergies Home Medications Medication Instructions Recorded Confirmed Type DULoxetine HCL [Cymbalta] 30 mg PO HS 03/13/16 09/11/24 History levETIRAcetam [Keppra] 500 mg PO BID 12/11/20 09/11/24 History Atorvastatin [Lipitor] 20 mg PO HS 07/18/21 09/11/24 History Ergocalciferol (Vitamin D2) 1,250 mcg PO MO 02/24/24 09/11/24 History [Drisdol (50,000 Iu)] NIFEdipine XL [Procardia XL] 60 mg PO BID 03/04/24 09/11/24 History INSULIN ASPART (NovoLOG) [NovoLOG 10 unit SQ AC-BID@0900,1200 04/17/24 09/11/24 History (formulary)] INSULIN ASPART (NovoLOG) [NovoLOG 12 unit SQ AC-SUPPER 04/17/24 09/11/24 History (formulary)] Insulin Glargine [Lantus Vial] 20 unit SQ HS 04/17/24 09/11/24 History Isosorbide Mononitrate ER [Imdur] 120 mg PO DAILY 04/17/24 09/11/24 History Vit B Comp No.3/Folic/C/Biotin 1 tab PO TUTHSA@0900,2100 04/17/24 09/11/24 History [Catie-Loly Rx Tablet] carvediloL [Coreg*] 12.5 mg PO BID 04/17/24 09/11/24 History Torsemide [Demadex] 20 mg PO DAILY #30 tab 04/18/24 09/11/24 Rx Albuterol Inhaler [Ventolin Hfa 2 puff INHALATION RT-QID PRN 09/11/24 09/11/24 H istory Inhaler] Aspirin 162.5 mg PO DAILY 09/11/24 09/11/24 History Midodrine HCl [ProAmatine] 10 mg PO TID PRN 09/11/24 09/11/24 History Allergies Allergy/AdvReac Type Severity Reaction Status Date / Time No Known Allergies Allergy Verified 04/17/24 11:09 Physical Exam Vitals: Vital Signs Temp Pulse Pulse Resp BP BP Pulse Ox 09/12/24 07:50 97.8 F 81 15 177/72 99 09/12/24 06:00 71 18 152/74 98 09/12/24 04:00 65 16 155/71 98 09/12/24 02:00 72 16 156/72 98 09/11/24 22:00 67 18 164/66 99 09/11/24 20:17 68 18 165/64 98 09/11/24 20:00 62 18 176/78 95 09/11/24 18:12 75 19 163/67 99 09/11/24 17:55 74 19 170/82 97 09/11/24 15:13 73 17 188/73 98 09/11/24 13:26 79 20 174/68 97 09/11/24 12:20 79 17 09/11/24 12:11 73 20 177/78 95 09/11/24 10:36 98.3 F 70 1 L 169/72 98 Intake and Output 09/11/24 09/12/24 09/12/24 22:59 06:59 14:59 Intake Total 472 Balance 472 Intake: Oral 472 Results 09/11/24 11:46 09/11/24 11:46 Cardiac Enzymes 09/11/24 09/12/24 Range/Units 11:46 08:22 Troponin I <0.012 <0.012 (0.000-0.034) ng/mL CBC 09/11/24 Range/Units 11:46 WBC 6.7 (3.8-10.6) k/uL RBC 3.57 L (4.30-5.90) m/uL Hgb 11.2 L (13.0-17.5) gm/dL Hct 34.0 L (39.0-53.0) % Plt Count 306 (150-450) k/uL Comprehensive Metabolic Panel 09/11/24 Range/Units 11:46 Sodium 137 (137-145) mmol/L Potassium 3.6 (3.5-5.1) mmol/L Chloride 96 L (98-107) mmol/L Carbon Dioxide 35 H (22-30) mmol/L BUN 33 H (9-20) mg/dL Creatinine 3.09 H (0.66-1.25) mg/dL Glucose 198 H (74-99) mg/dL Calcium 8.6 (8.4-10.2) mg/dL Current Medications Generic Name Dose Route Start Last Admin Trade Name Freq PRN Reason Stop Dose Admin Albuterol Sulfate 2.5 mg 09/11/24 15:50 Albuterol Nebulized 2.5 Mg/3 Ml INHALATION RT-QID PRN Shortness Of Breath Aspirin 162 mg 09/12/24 09:00 09/12/24 09:52 Aspirin 81 Mg PO 162 mg DAILY BETSY Administration Atorvastatin Calcium 20 mg 09/11/24 21:00 09/11/24 20:12 Atorvastatin 20 Mg Tab PO 20 mg HS BETSY Administration Carvedilol 12.5 mg 09/11/24 17:30 09/12/24 09:51 Carvedilol 12.5 Mg Tab PO 12.5 mg AC-BID BETSY Administration Duloxetine HCl 30 mg 09/11/24 21:00 09/11/24 20:12 Duloxetine Hcl 30 Mg Capsule.Dr PO 30 mg HS BETSY Administration Ergocalciferol 1,250 mcg 09/12/24 09:00 09/12/24 09:50 Ergocalciferol 1,250 Mcg (50,000 Iu) Capsule PO 1,250 mcg MO BETSY Administration Sodium Chloride 1,000 mls @ 20 mls/hr 09/11/24 14:00 09/11/24 15:22 Saline 0.9% IV 20 mls/hr .Q24H BETSY Administration Insulin Aspart 10 unit 09/12/24 09:00 09/12/24 09:50 Insulin Aspart (Novolog) 100 Unit/Ml Vial SQ Not Given AC-BID@0900,1200 BETSY Insulin Aspart 12 unit 09/11/24 17:30 09/11/24 18:28 Insulin Aspart (Novolog) 100 Unit/Ml Vial SQ 12 unit AC-SUPPER BETSY Administration Insulin Detemir 20 unit 09/11/24 21:00 09/11/24 20:12 Insulin Detemir (Levemir) 100 Unit/Ml Syr SQ 20 unit HS BETSY Administration Isosorbide Mononitrate 120 mg 09/12/24 09:00 09/12/24 09:50 Isosorbide Mononitrate Er 60 Mg Tab.Er.24h PO 120 mg DAILY BETSY Administration Levetiracetam 500 mg 09/11/24 21:00 09/12/24 09:50 Levetiracetam 500 Mg Tab PO 500 mg BID BETSY Administration Midodrine 10 mg 09/11/24 15:50 Midodrine 5 Mg Tab PO TID PRN SBP below 140 Naloxone HCl 0.2 mg 09/11/24 13:55 Naloxone 0.4 Mg/Ml 1 Ml Vial IV Q2M PRN Opioid Reversal Nifedipine 60 mg 09/11/24 21:00 09/12/24 09:50 Nifedipine Xl 60 Mg Tab.Er.24 PO 60 mg BID BETSY Administration Intake and Output 09/11/24 09/12/24 09/12/24 22:59 06:59 14:59 Intake Total 472 Balance 472 Intake: Oral 472 09/11/24 11:46 09/11/24 11:46
[2024-09-12 12:31] LABS: Glucose,Whole Blood 202 mg/dL (70-110)
[2024-09-12] MEDS: ENOXAPARIN 40 MG/0.4 ML SYRINGE SQ SCH (13:01)
[2024-09-12] MEDS: DOXYCYCLINE 100 MG CAP PO SCH (15:31)
[2024-09-12 17:29] LABS: Glucose,Whole Blood 235 mg/dL (70-110)
--- NOTE | 2024-09-12 17:41 | CA ---
Transthoracic Echo Report Name: Edgardo Alvarez Age: 79 Gender: M : 1945 Exam Date: 09/12/2024 08:53 Exam Location: [facility] Ht (in): 70 Wt (lb): 195 Ordering Physician: Arnav Fischer MD ([id number]) Attending/Referring Phys: Aaliyah ZENDEJAS Weather Forcaster Jeanne Mccoy RDCS Procedure CPT: Indications: apneic episode, unresponsive Cardiac Hx: Syncope Technical Quality: Very technically difficult study Contrast 1: Definity Total Dose (mL): 1 Contrast 2: Total Dose (mL): MEASUREMENTS (Male / Female) Normal Values 2D ECHO LV Diastolic Diameter PLAX 4.8 cm 4.2 - 5.9 / 3.9 - 5.3 cm LV Systolic Diameter PLAX 3.2 cm IVS Diastolic Thickness 1.0 cm 0.6 - 1.0 / 0.6 - 0.9 cm LVPW Diastolic Thickness 1.0 cm 0.6 - 1.0 / 0.6 - 0.9 cm LV Relative Wall Thickness 0.4 LV Diastolic Volume MOD BP 93.6 cm??? 67 - 155 / 56 - 104 cm??? LV Systolic Volume MOD BP 40.8 cm??? 22 - 58 / 19 - 49 cm??? LV Ejection Fraction MOD BP 56.4 % >= 55 % LV Cardiac Index MOD BP 1829.1 cm???/min???m??? LV Diastolic Volume MOD 4C 90.0 cm??? LV Systolic Volume MOD 4C 44.0 cm??? LV Ejection Fraction MOD 4C 51.1 % LV Cardiac Index MOD 4C 1591.5 cm???/min???m??? LV Diastolic Length 4C 8.0 cm LV Systolic Length 4C 7.5 cm LV Diastolic Volume MOD 2C 90.8 cm??? LV Systolic Volume MOD 2C 32.5 cm??? LV Ejection Fraction MOD 2C 64.2 % LV Cardiac Index MOD 2C 2018.8 cm???/min???m??? LV Diastolic Length 2C 7.4 cm LV Systolic Length 2C 6.3 cm DOPPLER AV Peak Velocity 166.1 cm/s AV Peak Gradient 11.0 mmHg AV Mean Velocity 120.3 cm/s AV Mean Gradient 6.3 mmHg AV Velocity Time Integral 38.0 cm LVOT Peak Velocity 112.6 cm/s LVOT Peak Gradient 5.1 mmHg LVOT Velocity Time Integral 27.0 cm MV Peak Velocity 121.5 cm/s MV Peak Gradient 5.9 mmHg MV Mean Velocity 75.6 cm/s MV Mean Gradient 2.6 mmHg MV Velocity Time Integral 32.8 cm MV Area PHT 3.3 cm??? Mitral E Point Velocity 103.7 cm/s Mitral A Point Velocity 100.1 cm/s Mitral E to A Ratio 1.0 MV Deceleration Time 230.9 ms FINDINGS Left Ventricle Left ventricular ejection fraction is estimated at 55-60 %. Left ventricular cavity size normal. Left ventricular wall thickness normal. No obvious regional wall motion abnormalities. Right Ventricle Normal right ventricular size and function. Unable to estimate the right ventricular systolic pressure. Right Atrium Right atrium not well visualized. Left Atrium Normal left atrial size. Mitral Valve Structurally normal mitral valve. No mitral stenosis, regurgitation or prolapse. Aortic Valve Aortic valve not well visualized. No aortic valve stenosis or regurgitation. Tricuspid Valve Structurally normal tricuspid valve. No tricuspid stenosis, regurgitation or prolapse. Pulmonic Valve Pulmonic valve not well visualized. Pericardium No pericardial effusion. Aorta Aortic root and proximal ascending aorta not well visualized. CONCLUSIONS Normal LV systolic function Previewed by: Dr. Arnav Fischer MD (Electronically Signed) Final Date: 12 September 2024 17:40
--- NOTE | 2024-09-12 17:55 | P.HPIM ---
History of Present Illness H&P Date: 09/12/24 Chief Complaint: Coughing This is a 79-year-old, Wallisian-speaking patient of Dr. Santana. Chronic stable medical conditions include hyperlipidemia, diabetes, obstructive sleep apnea, osteoarthritis, kidney stones, cognitive impairment-dementia. 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 Had a loop recorder seizures. Visit his and daughter. Not a good historian Patient follows with clinical informatics manager Dr. Stevens. Patient rather sleepy. History obtained by the at the bedside. Patient been having increasing cough for last few days. About a week. Thick brown sputum coming out. Patient is felt feverish at home. Appetite is okay. Shortness of breath. Patient has mucus was getting stuck and patient started choking and coughing. Hence EMS was called out. When EMS arrived patient is breathing better. Review of systems: GEN.: Tired EYES: None HEENT: None NECK: None RESPIRATORY: As above CARDIOVASCULAR: None GASTROINTESTINAL: None GENITOURINARY: None MUSCULOSKELETAL: As above LYMPHATICS: None HEMATOLOGICAL: None PSYCHIATRY: forgetful NEUROLOGICAL: weakness on the right side Social history: No history of smoking or alcohol. Lives with his and daughter. Does use a walker. Daughter is the POA Physical examination: VITAL SIGNS: 97.8, 81, 15, 177 x 72, 99% on 2 L GENERAL: Resting in bed. Rather tired sleepy EYES: Pupils equal. Conjunctiva normal. HEENT: External appearance of nose and ears normal, oral cavity grossly normal. NECK: JVD not raised; masses not palpable. HEART: First and second heart sounds are normal; minimal edema. EXTREMITY: Some swelling in bruising along the inner side on the left arm especially upper arm. Slight tenderness. LUNGS: Respiratory rate increased; maybe some left basal crackles ABDOMEN: Soft, no tenderness no guarding rigidity, liver spleen not palpable, no masses palpable. PSYCH: Able to answer simple questions NEUROLOGICAL: [Cranial nerves grossly intact; no facial asymmetry, power 4/5 on the right side LYMPHATICS: No lymph nodes palpable in the axilla and neck INVESTIGATIONS, reviewed in the clinical context: September 11: White count 6.7 hemoglobin 11.2 platelets 306 sodium 137 potassium 3.6 BUN 33 creatinine 3.09 Troponin I less than 0.012 x 2 Influenza type A, type B, RSV, COVID-19: Not detected EKG tracing personally reviewed by me-normal sinus rhythm. Poor R wave progression anteriorly. Chest x-ray film personally reviewed by me-no obvious abnormality Previous labs 2D echocardiogram: [November 2023] EF 65 to 70%. Assessment and plan: -Acute tracheobronchitis Doxycycline 100 mg twice daily -1.1 x 0.9 cm acute pseudoaneurysm in the mid level brachial artery. Neck 1.4 mm, following Endo vascular fistula creation by in the left arm. 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 Uncontrolled with hyperglycemia NovoLog and Lantus. Follow Accu-Cheks -Depression otherwise specified Cymbalta -Hyperlipidemia On Lipitor -End-stage kidney disease hypertensive nephrosclerosis and diabetic nephropathy Follows with Dr. Stevens On hemodialysis -Chronic gait dysfunction uses a walker at home -Full code Discussed with the at the bedside. Patient never really had a syncope. Was choking on his mucus. Started an antibiotic. Cardiology ordered a 2D echo. Past Medical History Past Medical History: CVA/TIA, Diabetes Mellitus, Hyperlipidemia, Hypertension, Liver Disease, Renal Disease, Sleep Apnea/CPAP/BIPAP Additional Past Medical History / Comment(s): ARTHRITIS, kidney stones, possible dementia, kidney failure, neuropathy alia legs, carpal tunnel. CVA-jun 20 balance issues,speech impairment,vision impairment, receives injections to eyes r/t bleeding ,COVID 07/28/2022 History of Any Multi-Drug Resistant Organisms: None Reported Past Surgical History: Back Surgery, Cholecystectomy Additional Past Surgical History / Comment(s): MASS REMOVED FROM BACK OF HEAD, eye surgery, Past Anesthesia/Blood Transfusion Reactions: No Reported Reaction Past Psychological History: Depression Smoking Status: Never smoker Past Alcohol Use History: None Reported Past Drug Use History: None Reported - Past Family History Father Family Medical History: Diabetes Mellitus Mother Family Medical History: Diabetes Mellitus Brother(s) Family Medical History: Cancer Sister(s) Family Medical History: Cancer Medications and Allergies Home Medications Medication Instructions Recorded Confirmed Type DULoxetine HCL [Cymbalta] 30 mg PO HS 03/13/16 09/11/24 History levETIRAcetam [Keppra] 500 mg PO BID 12/11/20 09/11/24 History Atorvastatin [Lipitor] 20 mg PO HS 07/18/21 09/11/24 History Ergocalciferol (Vitamin D2) 1,250 mcg PO MO 02/24/24 09/11/24 History [Drisdol (50,000 Iu)] NIFEdipine XL [Procardia XL] 60 mg PO BID 03/04/24 09/11/24 History INSULIN ASPART (NovoLOG) [NovoLOG 10 unit SQ AC-BID@0900,1200 04/17/24 09/11/24 History (formulary)] INSULIN ASPART (NovoLOG) [NovoLOG 12 unit SQ AC-SUPPER 04/17/24 09/11/24 History (formulary)] Insulin Glargine [Lantus Vial] 20 unit SQ HS 04/17/24 09/11/24 History Isosorbide Mononitrate ER [Imdur] 120 mg PO DAILY 04/17/24 09/11/24 History Vit B Comp No.3/Folic/C/Biotin 1 tab PO TUTHSA@0900,2100 04/17/24 09/11/24 History [Catie-Loly Rx Tablet] carvediloL [Coreg*] 12.5 mg PO BID 04/17/24 09/11/24 History Torsemide [Demadex] 20 mg PO DAILY #30 tab 04/18/24 09/11/24 Rx Albuterol Inhaler [Ventolin Hfa 2 puff INHALATION RT-QID PRN 09/11/24 09/11/24 History Inhaler] Aspirin 162.5 mg PO DAILY 09/11/24 09/11/24 History Midodrine HCl [ProAmatine] 10 mg PO TID PRN 09/11/24 09/11/24 History Allergies Allergy/AdvReac Type Severity Reaction Status Date / Time No Known Allergies Allergy Verified 04/17/24 11:09 Physical Exam Vitals: Vital Signs Temp Pulse Pulse Pulse Resp BP BP 09/12/24 14:18 98.5 F 73 16 164/70 09/12/24 08:00 15 09/12/24 07:50 97.8 F 81 15 177/72 09/12/24 06:00 71 18 152/74 09/12/24 04:00 65 16 155/71 09/12/24 02:00 72 16 156/72 09/11/24 22:00 67 18 164/66 09/11/24 20:17 68 18 165/64 09/11/24 20:00 62 18 176/78 09/11/24 18:12 75 19 163/67 09/11/24 17:55 74 19 170/82 Pulse Ox 09/12/24 14:18 92 L 09/12/24 08:00 09/12/24 07:50 99 09/12/24 06:00 98 09/12/24 04:00 98 09/12/24 02:00 98 09/11/24 22:00 99 09/11/24 20:17 98 09/11/24 20:00 95 09/11/24 18:12 99 09/11/24 17:55 97 Intake and Output 09/12/24 09/12/24 09/12/24 06:59 14:59 22:59 Intake Total 590 Output Total 300 Balance 290 Intake: Oral 590 Output: Urine 300 Other: Voiding Method Urinal Results CBC & Chem 7: 09/11/24 11:46 09/11/24 11:46 Labs: Abnormal Lab Results - Last 24 Hours (Table) 09/12/24 09/12/24 Range/Units 08:19 12:30 POC Glucose (mg/dL) 65 L 202 H (70-110) mg/dL Thrombosis Risk Factor Assmnt - Choose All That Apply Each Factor Represents 1 point: Obesity (BMI >25) Each Risk Factor Represents 3 Points: Age 75 years or older Thrombosis Risk Factor Assessment Total Risk Factor Score: 4 Thrombosis Risk Factor Assessment Level: Moderate Risk
[2024-09-12 20:02] VITALS: BP 160/55; PULSE 76; RESP 17; TEMP 98.4
[2024-09-12] MEDS ORDERED: INSULIN DETEMIR (LEVEMIR) 100 UNIT/ML SYR SQ SCH (21:00)
--- NOTE | 2024-09-12 21:37 | P.DS ---
Providers Date of admission: 09/11/24 13:55 Expected date of discharge: 09/12/24 Attending physician: Tadeo Dickerson Consults: 09/11/24 13:55 Consult Physician Routine Consulting Provider: Devon Pereyra Consult Reason/Comments: syncope Do you want consulting provider notified?: Yes Primary care physician: [facility] Course: Chief Complaint: Coughing This is a 79-year-old, Irish-speaking patient of Dr. Santana. Chronic stable medical conditions include hyperlipidemia, diabetes, obstructive sleep apnea, osteoarthritis, kidney stones, cognitive impairment-dementia. 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 Had a loop recorder seizures. Visit his and daughter. Not a good historian Patient follows with wood milling machine hand Dr. Stevens. Patient rather sleepy. History obtained by the at the bedside. Patient been having increasing cough for last few days. About a week. Thick brown sp utum coming out. Patient is felt feverish at home. Appetite is okay. Shortness of breath. Patient has mucus was getting stuck and patient started choking and coughing. Hence EMS was called out. When EMS arrived patient is breathing better. Patient started on doxycycline for acute tracheobronchitis. Patient will follow-up for loop recorder recording with his inorganic chemist. Symptoms all felt to be from acute tracheobronchitis with the presentation. Social history: No history of smoking or alcohol. Lives with his and daughter. Does use a walker. Daughter is the POA Physical examination: VITAL SIGNS: 97.8, 81, 15, 177 x 72, 99% on 2 L GENERAL: Resting in bed. Rather tired sleepy EYES: Pupils equal. Conjunctiva normal. HEENT: External appearance of nose and ears normal, oral cavity grossly normal. NECK: JVD not raised; masses not palpable. HEART: First and second heart sounds are normal; minimal edema. EXTREMITY: Some swelling in bruising along the inner side on the left arm especially upper arm. Slight tenderness. LUNGS: Respiratory rate increased; maybe some left basal crackles ABDOMEN: Soft, no tenderness no guarding rigidity, liver spleen not palpable, no masses palpable. PSYCH: Able to answer simple questions NEUROLOGICAL: [Cranial nerves grossly intact; no facial asymmetry, power 4/5 on the right side LYMPHATICS: No lymph nodes palpable in the axilla and neck INVESTIGATIONS, reviewed in the clinical context: 2D echocardiogram: EF 55 to 60%. September 11: White count 6.7 hemoglobin 11.2 platelets 306 sodium 137 potassium 3.6 BUN 33 creatinine 3.09 Troponin I less than 0.012 x 2 Influenza type A, type B, RSV, COVID-19: Not detected EKG tracing personally reviewed by me-normal sinus rhythm. Poor R wave progression anteriorly. Chest x-ray film personally reviewed by me-no obvious abnormality Previous labs 2D echocardiogram: [November 2023] EF 65 to 70%. Assessment and plan: -Acute tracheobronchitis, causing near syncope from mucous plugging Doxycycline 100 mg twice daily -1.1 x 0.9 cm acute pseudoaneurysm in the mid level brachial artery. Neck 1.4 mm, following Endo vascular fistula creation by in the left arm. 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 Uncontrolled with hyperglycemia NovoLog and Lantus. Follow Accu-Cheks -Depression otherwise specified Cymbalta -Hyperlipidemia On Lipitor -End-stage kidney disease hypertensive nephrosclerosis and diabetic nephropathy Follows with Dr. Stevens On hemodialysis -Chronic gait dysfunction uses a walker at home -Full code Disposition: Home Past Medical History Past Medical History: CVA/TIA, Diabetes Mellitus, Hyperlipidemia, Hypertension, Liver Disease, Renal Disease, Sleep Apnea/CPAP/BIPAP Additional Past Medical History / Comment(s): ARTHRITIS, kidney stones, possible dementia, kidney failure, neuropathy alia legs, carpal tunnel. CVA-jul 17 balance issues,speech impairment,vision impairment, receives injections to eyes r/t bleeding ,COVID 07/28/2022 History of Any Multi-Drug Resistant Organisms: None Reported Past Surgical History: Back Surgery, Cholecystectomy Additional Past Surgical History / Comment(s): MASS REMOVED FROM BACK OF HEAD, eye surgery, Past Anesthesia/Blood Transfusion Reactions: No Reported Reaction Past Psychological History: Depression Smoking Status: Never smoker Past Alcohol Use History: None Reported Past Drug Use History: None Reported Plan - Discharge Summary New Discharge Prescriptions: New Doxycycline [Vibramycin] 100 mg PO BID #10 cap Continue DULoxetine HCL [Cymbalta] 30 mg PO HS levETIRAcetam [Keppra] 500 mg PO BID Atorvastatin [Lipitor] 20 mg PO HS INSULIN ASPART (NovoLOG) [NovoLOG (formulary)] 10 unit SQ AC-BID@0900,1200 carvediloL [Coreg*] 12.5 mg PO BID Torsemide [Demadex] 20 mg PO DAILY #30 tab Ergocalciferol (Vitamin D2) [Drisdol (50,000 Iu)] 1,250 mcg PO MO NIFEdipine XL [Procardia XL] 60 mg PO BID Vit B Comp No.3/Folic/C/Biotin [Catie-Loly Rx Tablet] 1 tab PO TUTHSA@0900,2100 Isosorbide Mononitrate ER [Imdur] 120 mg PO DAILY Insulin Glargine [Lantus Vial] 20 unit SQ HS INSULIN ASPART (NovoLOG) [NovoLOG (formulary)] 12 unit SQ AC-SUPPER Aspirin 162.5 mg PO DAILY Midodrine HCl [ProAmatine] 10 mg PO TID PRN PRN Reason: SBP below 140 Albuterol Inhaler [Ventolin Hfa Inhaler] 2 puff INHALATION RT-QID PRN PRN Reason: Shortness Of Breath Discharge Medication List DULoxetine HCL [Cymbalta] 30 mg PO HS 03/13/16 [History] levETIRAcetam [Keppra] 500 mg PO BID 12/11/20 [History] Atorvastatin [Lipitor] 20 mg PO HS 07/18/21 [History] Ergocalciferol (Vitamin D2) [Drisdol (50,000 Iu)] 1,250 mcg PO MO 02/24/24 [History] NIFEdipine XL [Procardia XL] 60 mg PO BID 03/04/24 [History] INSULIN ASPART (NovoLOG) [NovoLOG (formulary)] 10 unit SQ AC-BID@0900,1200 04/17/24 [History] INSULIN ASPART (NovoLOG) [NovoLOG (formulary)] 12 unit SQ AC-SUPPER 04/17/24 [History] Insulin Glargine [Lantus Vial] 20 unit SQ HS 04/17/24 [History] Isosorbide Mononitrate ER [Imdur] 120 mg PO DAILY 04/17/24 [History] Vit B Comp No.3/Folic/C/Biotin [Catie-Loly Rx Tablet] 1 tab PO TUTHSA@0900,2100 04/17/24 [History] carvediloL [Coreg*] 12.5 mg PO BID 04/17/24 [History] Torsemide [Demadex] 20 mg PO DAILY #30 tab 04/18/24 [Rx] Albuterol Inhaler [Ventolin Hfa Inhaler] 2 puff INHALATION RT-QID PRN 09/11/24 [History] Aspirin 162.5 mg PO DAILY 09/11/24 [History] Midodrine HCl [ProAmatine] 10 mg PO TID PRN 09/11/24 [History] Doxycycline [Vibramycin] 100 mg PO BID #10 cap 09/12/24 [Rx] Follow up Appointment(s)/Referral(s): Dennis Santana DO [Primary Care Provider] - 1-2 days (please call office for an appointment) Patient Instructions/Handouts: Syncope (DC), Acute Bronchitis (GEN) Activity/Diet/Wound Care/Special Instructions: FOLLOW UP WITH CARDIOLOGY. Discharge Disposition: HOME SELF-CARE
[2024-09-13] MEDS ORDERED: ENOXAPARIN 30 MG/0.3 ML SYRINGE SQ SCH (09:00)
== END 2024-09-12 20:14 | disposition home or self-care (01) ==
LOC: EC 10:28 → 6NMEDSUR 13:55
PROVIDERS: ADMIT Hospitalist; ATTEND Hospitalist
DX: J20.9 Acute bronchitis, unspecified (principal); J98.09 Other diseases of bronchus, not elsewhere classified; E11.65 Type 2 diabetes mellitus with hyperglycemia; I12.0 Hypertensive chronic kidney disease with stage 5 chronic kidney disease or end stage renal disease; N18.6 End stage renal disease; E11.22 Type 2 diabetes mellitus with diabetic chronic kidney disease; I72.1 Aneurysm of artery of upper extremity; I25.10 Atherosclerotic heart disease of native coronary artery without angina pectoris; E78.5 Hyperlipidemia, unspecified; I08.3 Combined rheumatic disorders of mitral, aortic and tricuspid valves; G40.909 Epilepsy, unspecified, not intractable, without status epilepticus; I69.351 Hemiplegia and hemiparesis following cerebral infarction affecting right dominant side; F03.90 Unspecified dementia, unspecified severity, without behavioral disturbance, psychotic disturbance, mood disturbance, and anxiety; G47.33 Obstructive sleep apnea (adult) (pediatric); M19.90 Unspecified osteoarthritis, unspecified site; F32.A Depression, unspecified; R26.9 Unspecified abnormalities of gait and mobility; E66.9 Obesity, unspecified; Z68.28 Body mass index [BMI] 28.0-28.9, adult; Z79.4 Long term (current) use of insulin; Z79.01 Long term (current) use of anticoagulants; Z79.82 Long term (current) use of aspirin; Z79.899 Other long term (current) drug therapy; Z11.52 Encounter for screening for COVID-19; Z11.59 Encounter for screening for other viral diseases; Z95.818 Presence of other cardiac implants and grafts
CPT/HCPCS: 96372; 99285; 36415; 93005; 83880; 80048; 83605; 83735; 84484 ×2; 85025; 87636; 71046; 72125; 70450; G0378 ×2; C8929; J1650; Q9957; 93306

== ENCOUNTER 2024-09-21 12:42 | Inpatient (IN) | payer MEDICARE ==
--- NOTE | 2024-09-21 13:34 | ED ---
General Adult HPI - General Chief complaint: Upper Respiratory Infection Stated complaint: AMS Time Seen by Provider: 09/21/24 12:50 Source: patient, family, EMS, RN notes reviewed, old records reviewed Mode of arrival: EMS Limitations: no limitations - History of Present Illness Initial comments: 79-year-old male presenting with choking episode. Patient states he was coughing, had some sputum and phlegm production and had a choking episode which was brief. This has since resolved. The patient states he has had productive cough for the past 7 to 10 days. No measured fever. No dyspnea. No chest pain. No lower extremity pain or swelling. Several family members have similar respiratory illness in the house. - Related Data Home Medications Medication Instructions Recorded Confirmed DULoxetine HCL [Cymbalta] 30 mg PO HS 03/13/16 09/21/24 levETIRAcetam [Keppra] 500 mg PO BID 12/11/20 09/21/24 Atorvastatin [Lipitor] 20 mg PO HS 07/18/21 09/21/24 Ergocalciferol (Vitamin D2) 1,250 mcg PO MO 02/24/24 09/21/24 [Drisdol (50,000 Iu)] NIFEdipine XL [Procardia XL] 60 mg PO BID 03/04/24 09/21/24 INSULIN ASPART (NovoLOG) [NovoLOG 10 unit SQ AC-BID@0900,1200 04/17/24 09/21/24 (formulary)] INSULIN ASPART (NovoLOG) [NovoLOG 12 unit SQ AC-SUPPER 04/17/24 09/21/24 (formulary)] Insulin Glargine [Lantus Vial] 20 unit SQ HS 04/17/24 09/21/24 Isosorbide Mononitrate ER [Imdur] 120 mg PO DAILY 04/17/24 09/21/24 Vit B Comp No.3/Folic/C/Biotin 1 tab PO TUTHSA@0900,2100 04/17/24 09/21/24 [Catie-Loly Rx Tablet] carvediloL [Coreg*] 12.5 mg PO BID 04/17/24 09/21/24 Albuterol Inhaler [Ventolin Hfa 2 puff INHALATION RT-QID PRN 09/11/24 09/21/24 Inhaler] Aspirin 162.5 mg PO DAILY 09/11/24 09/21/24 Midodrine HCl [ProAmatine] 10 mg PO TID PRN 09/11/24 09/21/24 Previous Rx's Medication Instructions Recorded Torsemide [Demadex] 20 mg PO DAILY #30 tab 04/18/24 Allergies Allergy/AdvReac Type Severity Reaction Status Date / Time No Known Allergies Allergy Verified 09/21/24 14:56 Review of Systems ROS Statement: Those systems with pertinent positive or pertinent negative responses have been documented in the HPI. ROS Other: All systems not noted in ROS Statement are negative. Past Medical History Past Medical History: CVA/TIA, Diabetes Mellitus, Hyperlipidemia, Hypertension, Liver Disease, Renal Disease, Sleep Apnea/CPAP/BIPAP Additional Past Medical History / Comment(s): ARTHRITIS, kidney stones, possible dementia, kidney failure, neuropathy alia legs, carpal tunnel. CVA-jul 17 balance issues,speech impairment,vision impairment, receives injections to eyes r/t bleeding ,COVID 07/28/2022 History of Any Multi-Drug Resistant Organisms: None Reported Past Surgical History: Back Surgery, Cholecystectomy Additional Past Surgical History / Comment(s): MASS REMOVED FROM BACK OF HEAD, eye surgery, Past Anesthesia/Blood Transfusion Reactions: No Reported Reaction Past Psychological History: Depression Smoking Status: Never smoker Past Alcohol Use History: None Reported Past Drug Use History: None Reported - Past Family History Father Family Medical History: Diabetes Mellitus Mother Family Medical History: Diabetes Mellitus Brother(s) Family Medical History: Cancer Sister(s) Family Medical History: Cancer General Exam Limitations: language barrier General appearance: alert, in no apparent distress Head exam: Present: atraumatic Eye exam: Present: PERRL ENT exam: Present: normal exam, normal oropharynx Neck exam: Present: normal inspection. Absent: tenderness, meningismus Respiratory exam: Present: normal lung sounds bilaterally. Absent: respiratory distress, wheezes, rhonchi Cardiovascular Exam: Present: regular rate, normal rhythm GI/Abdominal exam: Present: soft. Absent: distended, tenderness, guarding Extremities exam: Present: normal inspection, normal capillary refill Neurological exam: Present: alert, oriented X3, CN II-XII intact Psychiatric exam: Present: normal affect, normal mood Skin exam: Present: warm, dry, intact, normal color Course Vital Signs 09/21/24 09/21/24 09/21/24 12:49 12:52 14:27 Temperature 98.9 F 98.1 F Pulse Rate 60 62 Respiratory 20 20 16 Rate Blood Pressure 132/60 132/60 O2 Sat by Pulse 96 96 Oximetry 09/21/24 16:31 Temperature Pulse Rate 71 Respiratory 19 Rate Blood Pressure 146/71 O2 Sat by Pulse 100 Oximetry - Reevaluation(s) Reevaluation #1: 09/21/24 15:48 History obtained from the daughter, patient has had multiple syncopal episodes associated with these coughing and choking episodes. EKG and laboratory studies have been ordered, results pending. Medical Decision Making - Medical Decision Making Was pt. sent in by a medical professional or institution (, PA, FLOWER GRADER, urgent care, hospital, or fdc...) When possible be specific @ -No Did you speak to anyone other than the patient for history (EMS, parent, family, police, friend...)? What history was obtained from this source @ -No Did you review nursing and triage notes (agree or disagree)? Why? @ -I reviewed and agree with nursing and triage notes Were old charts reviewed (outside hosp., previous admission, EMS record, old EKG, old radiological studies, urgent care reports/EKG's, fdc records)? Report findings @ -No old charts were reviewed Differential Dyspnea: Coronary syndrome, arrhythmia, tamponade, asthma, COPD, pulmonary embolism, pneumonia, pneumothorax, pulmonary effusion, anaphylaxis, diabetic ketoacidosis, flailed chest, pulmonary contusion, diaphragmatic rupture, anemia, neuromuscular, this is not meant to be an all-inclusive list. EKG interpreted by me (3pts min.). @ -This rhythm rate of 68, MA interval 176, QRS duration 113, QTc [address] segment elevation. X-rays interpreted by me (1pt min.). @ -[X-ray shows subtle opacification in the retrocardiac region, developing pneumonia CT interpreted by me (1pt min.). @ -None done U/S interpreted by me (1pt. min.). @ -None done What testing was considered but not performed or refused? (CT, X-rays, U/S, labs)? Why? @ -None What meds were considered but not given or refused? Why? @ -None Did you discuss the management of the patient with other professionals (professionals i.e. , PA, FLOWER GRADER, lab, RT, psych nurse, social work associate, wine master, teacher, vessel traffic officer, mattress spring encaser)? Give summary @ -No Was smoking cessation discussed for >3mins.? @ -No Was critical care preformed (if so, how long)? @ -No Were there social determinants of health that impacted care today? How? (Homelessness, low income, unemployed, alcoholism, drug addiction, trans portation, low edu. Level, literacy, decrease access to med. care, snf, rehab)? @ -No Was there de-escalation of care discussed even if they declined (Discuss DNR or withdrawal of care, Hospice)? DNR status @ -No What co-morbidities impacted this encounter? (DM, HTN, Smoking, COPD, CAD, Cancer, CVA, ARF, Chemo, Hep., AIDS, mental health diagnosis, sleep apnea, morbid obesity)? @ -End Stage renal disease Was patient admitted / discharged? Hospital course, mention meds given and route, prescriptions, significant lab abnormalities, going to OR and other pertinent info. @79-year-old male with worsening cough, syncopal episodes. After further history the family indicates that this has been an ongoing worsening issue. Patient afebrile, vital signs stable. Chest x-ray does reveal concern for infiltrate. Laboratory testing and antibiotics have been initiated. The patient will be placed in observation. Case discussed with Dr. Wolfe who will admit. Testing pending. Undiagnosed new problem with uncertain prognosis? @ -No Drug Therapy requiring intensive monitoring for toxicity (Heparin, Nitro, Insulin, Cardizem)? @ -No Were any procedures done? @ -No Diagnosis/symptom? @Syncope, pneumonia Acute, or Chronic, or Acute on Chronic? @ -acute Uncomplicated (without systemic symptoms) or Complicated (systemic symptoms)? @ -Default Side effects of treatment? @ -No Exacerbation, Progression, or Severe Exacerbation? @ -No Poses a threat to life or bodily function? How? (Chest pain, USA, MO, pneumonia, PE, COPD, DKA, ARF, appy, cholecystitis, CVA, Diverticulitis, Homicidal, S uicidal, threat to staff... and all critical care pts) @ -Yes, syncope, PNA, - Lab Data Result diagrams: 09/21/24 16:20 Lab Results 09/21/24 09/21/24 Range/Units 12:56 16:20 WBC 6.7 (3.8-10.6) k/uL RBC 3.15 L (4.30-5.90) m/uL Hgb 10.0 L (13.0-17.5) gm/dL Hct 29.9 L (39.0-53.0) % MCV 94.8 (80.0-100.0) fL MCH 31.6 (25.0-35.0) pg MCHC 33.4 (31.0-37.0) g/dL RDW 13.3 (11.5-15.5) % Plt Count 275 (150-450) k/uL MPV 7.3 Neutrophils % 67 % Lymphocytes % 23 % Monocytes % 6 % Eosinophils % 2 % Basophils % 1 % Neutrophils # 4.5 (1.3-7.7) k/uL Lymphocytes # 1.5 (1.0-4.8) k/uL Monocytes # 0.4 (0-1.0) k/uL Eosinophils # 0.1 (0-0.7) k/uL Basophils # 0.1 (0-0.2) k/uL Influenza Type A (PCR) Not Detected (Not Detectd) Influenza Type B (PCR) Not Detected (Not Detectd) RSV (PCR) Not Detected (Not Detectd) SARS-CoV-2 (PCR) Not Detected (Not Detectd) Disposition Clinical Impression: Syncope, PNA (pneumonia) Disposition: ADMITTED IP TO THIS HOSP Condition: Stable Is patient prescribed a controlled substance at d/c from ED?: No Referrals: Dennis Santana DO [Primary Care Provider] - 1-2 days Time of Disposition: 15:51
--- NOTE | 2024-09-21 14:33 | XR ---
EXAMINATION TYPE: XR chest 2V DATE OF EXAM: 09/21/2024 1:44 PM CLINICAL INDICATION:Male, 79 years old with history of cough; PHH COMPARISON: Chest radiographs from 09/11/2024 TECHNIQUE: XR chest 2V Frontal view of the chest. FINDINGS: Lungs/Pleura: Low lung volumes are present. Hazy interstitial markings seen bilaterally. There is no evidence of pneumothorax. Pulmonary vascularity: Unremarkable. Heart/mediastinum: Cardiomediastinal silhouette is unremarkable. Loop recorder redemonstrated over t he left hemithorax. Musculoskeletal: No acute osseous pathology. Other findings: None IMPRESSION: Hazy interstitial markings seen bilaterally may relate to an infectious/inflammatory process. Correla te with clinical evaluation. [facility], , 09/21/2024 2:30 PM
[2024-09-21] MEDS ORDERED: NALOXONE 0.4 MG/ML 1 ML VIAL IVP PRN (15:47)
[2024-09-21] MEDS ORDERED: IPRATROPIUM-ALBUTEROL 3 ML NEB INHALATION PRN (15:47)
[2024-09-21 16:31] LABS: Basophils # (A) 0.1 k/uL (0-0.2); Basophils % (A) 1 %; Eosinophils # (A) 0.1 k/uL (0-0.7); Eosinophils % (A) 2 %; HCT 29.9 % (39.0-53.0); Lymphocytes # (A) 1.5 k/uL (1.0-4.8); Lymphocytes % (A) 23 %; MCH 31.6 pg (25.0-35.0); MCHC 33.4 g/dL (31.0-37.0); MCV 94.8 fL (80.0-100.0); Mean Platelet Volume 7.3; Monocytes # (A) 0.4 k/uL (0-1.0); Monocytes % (A) 6 %; Neutrophils # (A) 4.5 k/uL (1.3-7.7); Neutrophils % (A) 67 %; Platelet Count 275 k/uL (150-450); RBC 3.15 m/uL (4.30-5.90); RDW 13.3 % (11.5-15.5); WBC 6.7 k/uL (3.8-10.6)
[2024-09-21 16:45] LABS: ALT 16 U/L (4-49); African American GFR (CKD) 11 (>60 ml/min/1.73 sqM); Albumin 3.8 g/dL (3.5-5.0); Anion Gap 9 mmol/L; Blood Urea Nitrogen 43 mg/dL (9-20); Calcium 8.7 mg/dL (8.4-10.2); Carbon Dioxide 20 mmol/L (22-30); Chloride 103 mmol/L (98-107); Glucose 260 mg/dL (74-99); Non-African American GFR(CKD) 10 (>60 ml/min/1.73 sqM); Sodium 132 mmol/L (137-145); Total Bilirubin 0.5 mg/dL (0.2-1.3); Total Protein 6.7 g/dL (6.3-8.2)
[2024-09-21 16:46] LABS: Glucose,Whole Blood 254 mg/dL (70-110)
[2024-09-21 16:48] LABS: INR 0.9 (<1.2); Partial Thromboplastin Time 23.8 sec (22.0-30.0); Prothrombin Time 10.2 sec (10.0-12.5)
[2024-09-21 16:52] LABS: AST 28 U/L (17-59)
[2024-09-21 16:53] LABS: Alkaline Phosphatase 146 U/L (38-126); NT-Pro-B-Type Natriuretic Pept 2840 pg/mL
[2024-09-21] MEDS: methylPREDNISolone SOD SUCCI 125 MG/2 ML VIAL IV SCH (17:50)
[2024-09-21] MEDS: IPRATROPIUM-ALBUTEROL 3 ML NEB INHALATION STA (18:19)
[2024-09-21] MEDS: IPRATROPIUM-ALBUTEROL 3 ML NEB INHALATION SCH (18:19)
[2024-09-21] MEDS: ALBUTEROL NEBULIZED 2.5 MG/3 ML INHALATION STA (18:19)
[2024-09-21 20:28] LABS: Glucose,Whole Blood 253 mg/dL (70-110)
[2024-09-21] MEDS: INSULIN DETEMIR (LEVEMIR) 100 UNIT/ML SYR SQ SCH (20:45)
[2024-09-21] MEDS: carvediloL 12.5 MG TAB PO SCH (20:45)
[2024-09-21] MEDS: levETIRAcetam 500 MG TAB PO SCH (20:45)
[2024-09-21] MEDS: INSULIN ASPART (NovoLOG) 100 UNIT/ML VIAL SQ SCH (20:45)
[2024-09-21] MEDS: ATORVASTATIN 20 MG TAB PO SCH (20:45)
[2024-09-21] MEDS: DULoxetine HCL 30 MG CAPSULE.DR PO SCH (20:45)
[2024-09-22 06:11] LABS: Glucose,Whole Blood 281 mg/dL (70-110)
[2024-09-22] MEDS: AZITHROMYCIN 500 MG TAB PO SCH (09:00)
[2024-09-22] MEDS: FOLIC ACID-VIT B COMPLEX-VIT C 1 CAP PO SCH (09:00)
--- NOTE | 2024-09-22 09:59 | P.NPCON ---
History of Present Illness - Reason for Consult end stage renal disease - History of Present Illness Reason for consultation: End-stage renal disease History of present illness: Patient is a 79-year-old male seen in renal consultation for end-stage renal disease. He is maintained on hemodialysis on Thursday schedule via left upper extremity fistula. Patient is a poor historian. History is mostly obtained from the present at bedside. She states that the patient has been coughing for 1 week. She states he has been unable to bring up any phlegm. He has been coughing quite hard and essentially briefly passed out yesterday while coughing. He tested negative for influenza RSV and COVID. Hemodynamically stable. Denies chest pain. He does have longstanding history of diabetes. Denies fever or chills. He does make urine. Vital signs are stable. General: No acute distress. HEENT: Head exam is unremarkable. LUNGS: No audible rhonchi or wheezes. HEART: Rate and Rhythm are regular. ABDOMEN: Nontender. EXTREMITITES: No edema. Past Medical History Past Medical History: CVA/TIA, Diabetes Mellitus, Hyperlipidemia, Hypertension, Liver Disease, Renal Disease, Sleep Apnea/CPAP/BIPAP Additional Past Medical History / Comment(s): ARTHRITIS, kidney stones, possible dementia, kidney failure, neuropathy alia legs, carpal tunnel. CVA-jul 17 balance issues,speech impairment,vision impairment, receives injections to eyes r/t bleeding ,COVID 07/28/2022 History of Any Multi-Drug Resistant Organisms: None Reported Past Surgical History: Back Surgery, Cholecystectomy Additional Past Surgical History / Comment(s): MASS REMOVED FROM BACK OF HEAD, eye surgery, Past Anesthesia/Blood Transfusion Reactions: No Reported Reaction Past Psychological History: Depression Smoking Status: Never smoker Past Alcohol Use History: None Reported Past Drug Use History: None Reported - Past Family History Father Family Medical History: Diabetes Mellitus Mother Family Medical History: Diabetes Mellitus Brother(s) Family Medical History: Cancer Sister(s) Family Medical History: Cancer Medications and Allergies Home Medications Medication Instructions Recorded Confirmed Type DULoxetine HCL [Cymbalta] 30 mg PO HS 03/13/16 09/21/24 History levETIRAcetam [Keppra] 500 mg PO BID 12/11/20 09/21/24 History Atorvastatin [Lipitor] 20 mg PO HS 07/18/21 09/21/24 History Ergocalciferol (Vitamin D2) 1,250 mcg PO MO 02/24/24 09/21/24 History [Drisdol (50,000 Iu)] NIFEdipine XL [Procardia XL] 60 mg PO BID 03/04/24 09/21/24 History INSULIN ASPART (NovoLOG) [NovoLOG 10 unit SQ AC-BID@0900,1200 04/17/24 09/21/24 History (formulary)] INSULIN ASPART (NovoLOG) [NovoLOG 12 unit SQ AC-SUPPER 04/17/24 09/21/24 History (formulary)] Insulin Glargine [Lantus Vial] 20 unit SQ HS 04/17/24 09/21/24 History Isosorbide Mononitrate ER [Imdur] 120 mg PO DAILY 04/17/24 09/21/24 History Vit B Comp No.3/Folic/C/Biotin 1 tab PO TUTHSA@0900,2100 04/17/24 09/21/24 History [Catie-Loly Rx Tablet] carvediloL [Coreg*] 12.5 mg PO BID 04/17/24 09/21/24 History Torsemide [Demadex] 20 mg PO DAILY #30 tab 04/18/24 09/21/24 Rx Albuterol Inhaler [Ventolin Hfa 2 puff INHALATION RT-QID PRN 09/11/24 09/21/24 H istory Inhaler] Aspirin 162.5 mg PO DAILY 09/11/24 09/21/24 History Midodrine HCl [ProAmatine] 10 mg PO TID PRN 09/11/24 09/21/24 History Allergies Allergy/AdvReac Type Severity Reaction Status Date / Time No Known Allergies Allergy Verified 09/21/24 14:56 Physical Exam Vitals: Vital Signs Temp Pulse Pulse Resp BP BP Pulse Ox 09/22/24 08:10 88 09/22/24 07:57 88 09/22/24 07:00 97.6 F 88 18 175/55 95 09/22/24 03:13 97.8 F 78 18 168/74 97 09/21/24 20:38 73 09/21/24 19:30 98.0 F 73 18 151/74 93 L 09/21/24 18:30 76 09/21/24 18:19 75 09/21/24 18:15 98.6 F 71 19 156/73 96 09/21/24 16:31 71 19 146/71 100 09/21/24 14:27 98.1 F 62 16 132/60 96 09/21/24 12:52 20 09/21/24 12:49 98.9 F 60 20 132/60 96 Intake and Output 09/21/24 09/22/24 09/22/24 22:59 06:59 14:59 Output Total 225 Balance -225 Output: Urine 225 Other: Voiding Method Toilet Toilet Urinal Urinal # Voids 2 1 Weight 86.183 kg Results - Lab Results Most recent lab results Calcium 8.7 mg/dL (8.4-10.2) 09/21/24 16:20 09/21/24 16:20 09/21/24 16:20 Assessment and Plan Plan: Assessment: 1. End-stage renal disease maintained on hemodialysis on Thursday schedule. 2. Pneumonia maintained on antibiotics. 3. Diabetes mellitus. 4. Hypertension with chronic kidney disease. Plan: Hemodialysis today. Check phosphorus level. Home antihypertensives resumed. Follow-up cultures. Thank you for the consultation. I will continue to follow the patient with you during his hospital stay.
[2024-09-22 12:09] LABS: Glucose,Whole Blood 154 mg/dL (70-110)
--- NOTE | 2024-09-22 15:09 | CT ---
EXAMINATION TYPE: CT chest wo con CT DLP: 493.3 mGycm, Automated exposure control for dose reduction was used. DATE OF EXAM: 09/22/2024 2:27 PM COMPARISON: Chest radiograph 09/21/2024, CT chest abdomen and pelvis 12/10/2023 CLINICAL INDICATION:Male, 79 years old with history of resp distress, bronchitis; PHH, SOB TECHNIQUE: Multiple axial images were obtained through the chest without IV contrast. Lack of IV or o ral contrast limits evaluation of solid and hollow organ viscera. . Coronal and sagittal reformats re viewed. FINDINGS: LUNGS/ PLEURA: No pneumothorax. Moderate bilateral pleural effusions with associated atelectasis. No focal consolidation or suspicious pulmonary nodules or masses identified within the visualized aerat ed lungs. AIRWAY: Patent and unremarkable.. HEART: Size within normal limits.No pericardial effusion. Mild to moderate coronary arterial calcific ations. MEDIASTINUM: No gross evidence of adenopathy. VASCULATURE: No aortic aneurysm. Mild atherosclerotic calcification of the aorta and its branches. MUSCULOSKELETAL: No acute osseous abnormalities. DISH of the thoracic spine. SOFT TISSUES/LYMPH NODES: Left upper anterior chest soft tissue loop recorder identified. Bilateral g ynecomastia. LOWER NECK: Hypodense 1 cm left thyroid lobe nodule.. UPPER ABDOMEN: Gallbladder is surgically absent. Cortical thinning of both kidneys suggestive of medi tulio renal disease. Mid duodenal diverticulum. IMPRESSION: Moderate bilateral pleural effusions with associated atelectasis. No focal consolidation. [facility], , 09/22/2024 3:07 PM
--- NOTE | 2024-09-22 15:22 | P.CNPUL ---
History of Present Illness Consult date: 09/22/24 Requesting physician: Edmundo Arnold Reason for consult: cough Chief complaint: Passing out upon coughing History of present illness: This is a 79-year-old male with history of end-stage renal disease, on hemodialysis Thursday and Thursday the patient himself is a very poor historian, most of the information obtained was from his daughter at bedside. The last couple of weeks, patient has been coughing and at times passing out, he had almost a dozen episodes of cough induced syncope. And never smoked, he has no history of COPD, his chest x-ray and CT of the chest done on this admission showed moderate bilateral pleural effusions with associated atelectasis. Chest x-ray showed mild interstitial prominence. Patient had his dialysis today and has CT of the chest done after dialysis clearly showed evidence of moderate- sized bilateral pleural effusions not clearly appreciated on the chest x-ray. Labs today showed negative screening for influenza A, influenza B, RSV and CO VID-19. CBC was noted to be unremarkable. Hemoglobin is a bit low at 10 basic metabolic profile is normal BUN is 43 creatinine 5.31, BNP level is 2840. After reviewing the patient chart, apparently the patient was recently in the hospital from and he was discharged on diagnosed as having tracheobronchitis, pulmonary was not consulted on his last admission. However patient was discharged home on doxycycline at 100 mg p.o. twice daily. That did not seem to make any difference on his cough and did not make any difference on his cough induced syncope. Echocardiogram on his last admission showed no evidence of LV dysfunction, no evidence of significant valvular heart disease and there was no evidence of pulmonary hypertension. His ejection fraction was 55 to 60% Review of Systems CONSTITUTIONAL: No fever, no malaise, no fatigue., Patient is generally weak HEENT: No recent visual problems or hearing problems. Denied any sore throat. CARDIOVASCULAR: No chest pain, orthopnea, PND, no palpitations, no syncope. PULMONARY: As noted in HPI mostly cough induced syncope GASTROINTESTINAL: No diarrhea, no nausea, no vomiting, no abdominal pain. NEUROLOGICAL: No headaches, no weakness, no numbness. HEMATOLOGICAL: Denies any bleeding or petechiae. GENITOURINARY: Denies any burning micturition, frequency, or urgency. MUSCULOSKELETAL/RHEUMATOLOGICAL: Denies any joint pain, swelling, or any muscle pain. ENDOCRINE: Denies any polyuria or polydipsia. Past Medical History Past Medical History: CVA/TIA, Diabetes Mellitus, Hyperlipidemia, Hypertension, Liver Disease, Renal Disease, Sleep Apnea/CPAP/BIPAP Additional Past Medical History / Comment(s): ARTHRITIS, kidney stones, possible dementia, kidney failure, neuropathy alia legs, carpal tunnel. CVA-jul 17 balance issues,speech impairment,vision impairment, receives injections to eyes r/t bleeding ,COVID 07/28/2022 History of Any Multi-Drug Resistant Organisms: None Reported Past Surgical History: Back Surgery, Cholecystectomy Additional Past Surgical History / Comment(s): MASS REMOVED FROM BACK OF HEAD, eye surgery, Past Anesthesia/Blood Transfusion Reactions: No Reported Reaction Past Psychological History: Depression Smoking Status: Never smoker Past Alcohol Use History: None Reported Past Drug Use History: None Reported - Past Family History Father Family Medical History: Diabetes Mellitus Mother Family Medical History: Diabetes Mellitus Brother(s) Family Medical History: Cancer Sister(s) Family Medical History: Cancer Medications and Allergies Home Medications Medication Instructions Recorded Confirmed Type DULoxetine HCL [Cymbalta] 30 mg PO HS 03/13/16 09/21/24 History levETIRAcetam [Keppra] 500 mg PO BID 12/11/20 09/21/24 History Atorvastatin [Lipitor] 20 mg PO HS 07/18/21 09/21/24 History Ergocalciferol (Vitamin D2) 1,250 mcg PO MO 02/24/24 09/21/24 History [Drisdol (50,000 Iu)] NIFEdipine XL [Procardia XL] 60 mg PO BID 03/04/24 09/21/24 History INSULIN ASPART (NovoLOG) [NovoLOG 10 unit SQ AC-BID@0900,1200 04/17/24 09/21/24 History (formulary)] INSULIN ASPART (NovoLOG) [NovoLOG 12 unit SQ AC-SUPPER 04/17/24 09/21/24 History (formulary)] Insulin Glargine [Lantus Vial] 20 unit SQ HS 04/17/24 09/21/24 History Isosorbide Mononitrate ER [Imdur] 120 mg PO DAILY 04/17/24 09/21/24 History Vit B Comp No.3/Folic/C/Biotin 1 tab PO TUTHSA@0900,2100 04/17/24 09/21/24 History [Catie-Loly Rx Tablet] carvediloL [Coreg*] 12.5 mg PO BID 04/17/24 09/21/24 History Torsemide [Demadex] 20 mg PO DAILY #30 tab 04/18/24 09/21/24 Rx Albuterol Inhaler [Ventolin Hfa 2 puff INHALATION RT-QID PRN 09/11/24 09/21/24 History Inhaler] Aspirin 162.5 mg PO DAILY 09/11/24 09/21/24 History Midodrine HCl [ProAmatine] 10 mg PO TID PRN 09/11/24 09/21/24 History Allergies Allergy/AdvReac Type Severity Reaction Status Date / Time No Known Allergies Allergy Verified 09/21/24 14:56 Physical Exam Vitals: Vital Signs Temp Pulse Pulse Resp BP BP Pulse Ox 09/22/24 08:10 88 09/22/24 07:57 88 09/22/24 07:00 97.6 F 88 18 175/55 95 09/22/24 03:13 97.8 F 78 18 168/74 97 09/21/24 20:38 73 09/21/24 19:30 98.0 F 73 18 151/74 93 L 09/21/24 18:30 76 09/21/24 18:19 75 09/21/24 18:15 98.6 F 71 19 156/73 96 09/21/24 16:31 71 19 146/71 100 Intake and Output 09/22/24 09/22/24 09/22/24 06:59 14:59 22:59 Other: Voiding Method Toilet Urinal # Voids 1 GENERAL: Revealed a 79-year-old white male in no distress, on room air : Atraumatic, normocephalic HEENT: Pupils are round and equally reacting to light. EOMI. No scleral icterus. No conjunctival pallor.. No pharyngeal erythema. No thyromegaly. CARDIOVASCULAR: S1 and S2 present. No murmurs, rubs, or gallops. PULMONARY: Clear bilaterally no rhonchi no wheezes ABDOMEN: Soft, nontender, nondistended, normoactive bowel sounds. No palpable organomegaly. MUSCULOSKELETAL: No joint swelling or deformity. EXTREMITIES: No cyanosis, clubbing, or pedal edema. NEUROLOGICAL: Gross neurological examination did not reveal any focal deficits. SKIN: No rashes. Results - Laboratory Findings CBC and BMP: 09/21/24 16:20 09/21/24 16:20 PT/INR, D-dimer PT 10.2 sec (10.0-12.5) 09/21/24 16:20 INR 0.9 (<1.2) 09/21/24 16:20 Abnormal lab findings: Abnormal Labs 09/21/24 09/21/24 09/21/24 16:20 16:20 16:20 RBC 3.15 L Hgb 10.0 L Hct 29.9 L Sodium 132 L Carbon Dioxide 20 L BUN 43 H Creatinine 5.31 H Glucose 260 H POC Glucose (mg/dL) Hemoglobin A1c 7.3 H Alkaline Phosphatase 146 H 09/21/24 09/21/24 09/22/24 16:45 20:27 06:10 RBC Hgb Hct Sodium Carbon Dioxide BUN Creatinine Glucose POC Glucose (mg/dL) 254 H 253 H 281 H Hemoglobin A1c Alkaline Phosphatase 09/22/24 12:07 RBC Hgb Hct Sodium Carbon Dioxide BUN Creatinine Glucose POC Glucose (mg/dL) 154 H Hemoglobin A1c Alkaline Phosphatase - Diagnostic Findings CT scan - chest: image reviewed (CT of the chest showed moderate bilateral pleural effusions not clearly appreciated on chest x-ray but nonetheless moderate pleural effusions are noted on CT of the chest) Assessment and Plan Assessment: Impression: Cough induced syncope Bilateral pleural effusions/most likely secondary to chronic renal failure or diastolic congestive heart failure, patient had normal LV function based on his last echocardiogram Benign essential hypertension Dyslipidemia History of CVA Diabetes with diabetic peripheral neuropathy History of seizures? Patient is maintained on Keppra End-stage renal disease, on hemodialysis Recommendation: Continue present supportive care measures Consider more aggressive hemodialysis and more ultrafiltration as the patient continues to have bilateral pleural effusions in spite of hemodialysis and the patient has been compliant with hemodialysis 3 times a week. Consider adding Lasix since the patient makes urine but not a large amount, versus to be addressed by nephrology Cough suppression medications could be used to avoid cough induced syncope however I believe best to make sure the patient does not have evidence of pulmonary edema as noted on the CT of the chest would be the best measure Continue empiric antibiotics although I do not believe the patient has ongoing infection, could consider checking procalcitonin Continue bronchodilators, patient had no previous history of COPD Continue Solu-Medrol that may help with the cough. Will continue to follow Time with Patient: Greater than 30
--- NOTE | 2024-09-22 17:00 | P.HPIM ---
History of Present Illness H&P Date: 09/22/24 History of present illness; Patient is a 79-year-old male with ESRD, presenting for syncope induced by cough. Patient is poor historian. He was recently admitted for similar symptoms on September 12 and subsequently discharged with doxycycline for treatment of tracheobronchitis for mucous plugging. Since this time patient has had persistent symptoms with sputum production. Denying fever, chills, shortness of breath, chest pain, palpitations at this time. Labs completed in emergency room significant for WBC 6.7, hemoglobin 10.0, sodium 132, potassium 5.0, bicarb 20, BUN 43, creatinine 5.31, glucose 260, A1c 7.3, ALP 146, proBNP 2840, viral respiratory panel is negative. EKG done in the ER independently interpreted showed sinus rhythm heart rate of 60, no ST segment elevation or depression seen, no T-wave inversions seen. Chest x-ray done independently interpreted in the ER showed hazy interstitial markings bilaterally Spoke with the ER physician, patient admission was accepted by internal medicine service for treatment. REVIEW OF SYSTEMS: Pertinent positives and negatives noted in HPI. PHYSICAL EXAMINATION: Vitals reviewed GENERAL: No acute distress. Well developed, well nourished. HEENT: Pupils are round and equally reacting to light. EOMI. No scleral icterus. Normocephalic, atraumatic. No pharyngeal erythema. No thyromegaly. CARDIOVASCULAR: S1 and S2 present. No murmurs, rubs, or gallops. PULMONARY: Chest is clear to auscultation, no wheezing, rhonchi, or crackles. ABDOMEN: Soft, nontender, nondistended, normoactive bowel sounds. No palpable organomegaly. MUSCULOSKELETAL: No apparent joint swelling and deformities. EXTREMITIES: No apparent cyanosis, clubbing, or pedal edema. NEUROLOGICAL: The patient is alert and oriented x3, Gross neurological examin ation did not reveal any focal deficits. 5/5 Strength bilateral UE and LE SKIN: No apparent rashes. Assessment and plan Patient is a 79-year-old male with ESRD, presenting for cough induced syncope. # Respiratory distress, secondary to possible bronchitis #Cough induced syncope CT chest findings of moderate bilateral pleural effusions with associated atelectasis, no focal consolidation - Pending blood and sputum cultures - Pending legionella, procalcitonin - begin IV Ceftriaxone 2g qd and IV Azithromycin 500 mg qd Continue bronchodilators and Solu-Medrol - encourage incentive spirometry Pulmonology following #ESRD Hemodialysis today, next session Thursday Consider more aggressive hemodialysis, CT findings of bilateral pleural effusion Nephrology following Chronic Medical Conditions #Hypertensionresume home meds #Diabetes mellitusbegin low-dose insulin, ACHS protocol #Peripheral neuropathyresume home medication #CADresume home medication F: P.o. E: Replete as needed N: Consistent carb diet Anticipated discharge place: Home Anticipated discharge time: 1 to 2 days Dictation was produced using [employer] dictation software. Please excuse any grammatical, word or spelling errors. Attestation I have seen and examined this patient with my resident , discussed the same with the resident/ELISE, and agree with the dictator's assessment and plan as written Dr. Emmanuel medina Past Medical History Past Medical History: CVA/TIA, Diabetes Mellitus, Hyperlipidemia, Hypertension, Liver Disease, Renal Disease, Sleep Apnea/CPAP/BIPAP Additional Past Medical History / Comment(s): ARTHRITIS, kidney stones, possible dementia, kidney failure, neuropathy alia legs, carpal tunnel. CVA-oct 20 balance issues,speech impairment,vision impairment, receives injections to eyes r/t bleeding ,COVID 07/28/2022 History of Any Multi-Drug Resistant Organisms: None Reported Past Surgical History: Back Surgery, Cholecystectomy Additional Past Surgical History / Comment(s): MASS REMOVED FROM BACK OF HEAD, eye surgery, Past Anesthesia/Blood Transfusion Reactions: No Reported Reaction Past Psychological History: Depression Smoking Status: Never smoker Past Alcohol Use History: None Reported Past Drug Use History: None Reported - Past Family History Father Family Medical History: Diabetes Mellitus Mother Family Medical History: Diabetes Mellitus Brother(s) Family Medical History: Cancer Sister(s) Family Medical History: Cancer Medications and Allergies Home Medications Medication Instructions Recorded Confirmed Type DULoxetine HCL [Cymbalta] 30 mg PO HS 03/13/16 09/21/24 History levETIRAcetam [Keppra] 500 mg PO BID 12/11/20 09/21/24 History Atorvastatin [Lipitor] 20 mg PO HS 07/18/21 09/21/24 History Ergocalciferol (Vitamin D2) 1,250 mcg PO MO 02/24/24 09/21/24 History [Drisdol (50,000 Iu)] NIFEdipine XL [Procardia XL] 60 mg PO BID 03/04/24 09/21/24 History INSULIN ASPART (NovoLOG) [NovoLOG 10 unit SQ AC-BID@0900,1200 04/17/24 09/21/24 History (formulary)] INSULIN ASPART (NovoLOG) [NovoLOG 12 unit SQ AC-SUPPER 04/17/24 09/21/24 History (formulary)] Insulin Glargine [Lantus Vial] 20 unit SQ HS 04/17/24 09/21/24 History Isosorbide Mononitrate ER [Imdur] 120 mg PO DAILY 04/17/24 09/21/24 History Vit B Comp No.3/Folic/C/Biotin 1 tab PO TUTHSA@0900,2100 04/17/24 09/21/24 History [Catie-Loly Rx Tablet] carvediloL [Coreg*] 12.5 mg PO BID 04/17/24 09/21/24 History Torsemide [Demadex] 20 mg PO DAILY #30 tab 04/18/24 09/21/24 Rx Albuterol Inhaler [Ventolin Hfa 2 puff INHALATION RT-QID PRN 09/11/24 09/21/24 History Inhaler] Aspirin 162.5 mg PO DAILY 09/11/24 09/21/24 History Midodrine HCl [ProAmatine] 10 mg PO TID PRN 09/11/24 09/21/24 History Allergies Allergy/AdvReac Type Severity Reaction Status Date / Time No Known Allergies Allergy Verified 09/21/24 14:56 Physical Exam Vitals: Vital Signs Temp Pulse Pulse Resp BP BP Pulse Ox 09/22/24 08:10 88 09/22/24 07:57 88 09/22/24 07:00 97.6 F 88 18 175/55 95 09/22/24 03:13 97.8 F 78 18 168/74 97 09/21/24 20:38 73 09/21/24 19:30 98.0 F 73 18 151/74 93 L 09/21/24 18:30 76 09/21/24 18:19 75 09/21/24 18:15 98.6 F 71 19 156/73 96 09/21/24 16:31 71 19 146/71 100 09/21/24 14:27 98.1 F 62 16 132/60 96 09/21/24 12:52 20 09/21/24 12:49 98.9 F 60 20 132/60 96 Intake and Output 09/21/24 09/22/24 09/22/24 22:59 06:59 14:59 Output Total 225 Balance -225 Output: Urine 225 Other: Voiding Method Toilet Toilet Urinal Urinal # Voids 2 1 Weight 86.183 kg Results CBC & Chem 7: 09/23/24 03:23 09/23/24 03:23 Labs: Abnormal Lab Results - Last 24 Hours (Table) 09/21/24 09/21/24 09/21/24 Range/Units 16:20 16:20 16:20 RBC 3.15 L (4.30-5.90) m/uL Hgb 10.0 L (13.0-17.5) gm/dL Hct 29.9 L (39.0-53.0) % Sodium 132 L (137-145) mmol/L Carbon Dioxide 20 L (22-30) mmol/L BUN 43 H (9-20) mg/dL Creatinine 5.31 H (0.66-1.25) mg/dL Glucose 260 H (74-99) mg/dL POC Glucose (mg/dL) (70-110) mg/dL Hemoglobin A1c 7.3 H (<=6.0) % Alkaline Phosphatase 146 H (38-126) U/L 09/21/24 09/21/24 09/22/24 Range/Units 16:45 20:27 06:10 RBC (4.30-5.90) m/uL Hgb (13.0-17.5) gm/dL Hct (39.0-53.0) % Sodium (137-145) mmol/L Carbon Dioxide (22-30) mmol/L BUN (9-20) mg/dL Creatinine (0.66-1.25) mg/dL Glucose (74-99) mg/dL POC Glucose (mg/dL) 254 H 253 H 281 H (70-110) mg/dL Hemoglobin A1c (<=6.0) % Alkaline Phosphatase (38-126) U/L Thrombosis Risk Factor Assmnt - Choose All That Apply Any of the Below Risk Factors Present?: Yes Each Factor Represents 1 point: Obesity (BMI >25) Other Risk Factors: Yes Each Risk Factor Represents 3 Points: Age 75 years or older Other congenital or acquired thrombophilia - If yes, enter type in comment: No Thrombosis Risk Factor Assessment Total Risk Factor Score: 4 Thrombosis Risk Factor Assessment Level: Moderate Risk
[2024-09-22 17:13] LABS: Glucose,Whole Blood 364 mg/dL (70-110)
[2024-09-22 21:02] LABS: Glucose,Whole Blood 409 mg/dL (70-110)
[2024-09-22] MEDS: INSULIN ASPART (NovoLOG) 100 UNIT/ML VIAL SQ ONE (21:29)
[2024-09-23 06:12] LABS: Glucose,Whole Blood 216 mg/dL (70-110)
[2024-09-23 08:33] LABS: ALT 11 U/L (10-49); AST 18 U/L (14-35); Albumin/Globulin Ratio 1.38 Ratio (1.60-3.17); Alkaline Phosphatase 119 U/L (41-126); BUN/Creat Ratio 9.24 Ratio (12.00-20.00); Blood Urea Nitrogen 38.8 mg/dL (9.0-27.0); Calcium 9.2 mg/dL (8.7-10.3); Carbon Dioxide 25.1 mmol/L (21.6-31.8); Chloride 95 mmol/L (96-109); Globulin 2.9 g/dL (1.6-3.3); Glucose 247 mg/dL (70-110); Potassium 4.4 mmol/L (3.5-5.5); Sodium 135 mmol/L (135-145); Total Bilirubin 0.2 mg/dL (0.3-1.2); Total Protein 6.9 g/dL (6.2-8.2)
[2024-09-23 08:35] LABS: HCT 33.3 % (39.6-50.0); HGB 11.4 g/dL (13.0-17.0); MCH 31.8 pg (27.0-32.0); MCHC 34.2 g/dL (32.0-37.0); Mean Platelet Volume 10.4 FL (9.5-12.2); NRBC Per 100 WBC 0 X 10*3/uL (0.00-0.01); Platelet Count 309 X 10*3/uL (140-440); RBC 3.58 X 10*6/uL (4.40-5.60); RDW 13.2 % (11.5-14.5); WBC 14.64 X 10*3/uL (4.50-10.00)
[2024-09-23] MEDS: ACETAMINOPHEN TAB 325 MG TAB PO PRN (09:00)
--- NOTE | 2024-09-23 10:12 | P.PN ---
Subjective Patient is seen in follow-up for end-stage renal disease. He is maintained on hemodialysis on Thursday schedule. Tolerated 2 L ul trafiltration yesterday. Currently receiving a breathing treatment. Feels better today. present at bedside. Vital signs are stable. General: No acute distress. HEENT: Head exam is unremarkable. LUNGS: No audible rhonchi or wheezes. HEART: Rate and Rhythm are regular. ABDOMEN: Nontender. EXTREMITITES: No edema. Objective - Vital Signs Vital signs: Vital Signs Temp 98 F 09/23/24 07:00 Pulse 90 09/23/24 09:15 Resp 16 09/23/24 07:00 BP 157/80 09/23/24 07:00 Pulse Ox 95 09/23/24 07:00 FiO2 Intake & Output 09/22/24 09/23/24 09/23/24 18:59 06:59 18:59 Intake Total 618 200 Output Total 4500 300 Balance -3882 -300 200 Intake: Oral 118 200 Hemodialysis 500 Output: Urine 300 Hemodialysis 2500 Hemodialysis Net Amount 2000 Other: Voiding Method Toilet Toilet Urinal Urinal # Voids 1 2 - Labs CBC & Chem 7: 09/23/24 03:23 09/23/24 03:23 Labs: Abnormal Lab Results - Last 24 Hours (Table) 09/22/24 09/22/24 09/22/24 Range/Units 12:07 17:11 21:01 WBC (4.50-10.00) X 10*3/uL RBC (4.40-5.60) X 10*6/uL Hgb (13.0-17.0) g/dL Hct (39.6-50.0) % Chloride (96-109) mmol/L Anion Gap (4.00-12.00) mmol/L BUN (9.0-27.0) mg/dL Creatinine (0.6-1.5) mg/dL Est GFR (CKD-EPI) (>=60) BUN/Creatinine Ratio (12.00-20.00) Ratio Glucose (70-110) mg/dL POC Glucose (mg/dL) 154 H 364 H 409 H (70-110) mg/dL Total Bilirubin (0.3-1.2) mg/dL Albumin/Globulin Ratio (1.60-3.17) Ratio 09/23/24 09/23/24 09/23/24 Range/Units 03:23 03:23 06:09 WBC 14.64 H (4.50-10.00) X 10*3/uL RBC 3.58 L (4.40-5.60) X 10*6/uL Hgb 11.4 L (13.0-17.0) g/dL Hct 33.3 L (39.6-50.0) % Chloride 95 L (96-109) mmol/L Anion Gap 14.90 H (4.00-12.00) mmol/L BUN 38.8 H (9.0-27.0) mg/dL Creatinine 4.2 H (0.6-1.5) mg/dL Est GFR (CKD-EPI) 14 L (>=60) BUN/Creatinine Ratio 9.24 L (12.00-20.00) Ratio Glucose 247 H (70-110) mg/dL POC Glucose (mg/dL) 216 H (70-110) mg/dL Total Bilirubin 0.2 L (0.3-1.2) mg/dL Albumin/Globulin Ratio 1.38 L (1.60-3.17) Ratio Microbiology - Last 24 Hours (Table) 09/21/24 16:23 Blood Culture - Preliminary Blood Assessment and Plan Plan: Assessment: 1. End-stage renal disease maintained on hemodialysis on Thursday schedule. 2. Pneumonia maintained on antibiotics. 3. Diabetes mellitus. 4. Hypertension with chronic kidney disease. Exacerbated by steroids. Plan: Hemodialysis tomorrow. Follow-up cultures.
[2024-09-23 12:08] LABS: Glucose,Whole Blood 371 mg/dL (70-110)
--- NOTE | 2024-09-23 12:29 | P.PN ---
Subjective Progress Note Date: 09/23/24 This is a 79-year-old male with history of end-stage renal disease, on hemodialysis Thursday and Thursday the patient himself is a very poor historian, most of the information obtained was from his daughter at bedside. The last couple of weeks, patient has been coughing and at times passing out, he had almost a dozen episodes of cough induced syncope. And never smoked, he has no history of COPD, his chest x-ray and CT of the chest done on this admission showed moderate bilateral pleural effusions with associated atelectasis. Chest x-ray showed mild interstitial prominence. Patient had his dialysis today and has CT of the chest done after dialysis clearly showed evidence of moderate-siz ed bilateral pleural effusions not clearly appreciated on the chest x-ray. Labs today showed negative screening for influenza A, influenza B, RSV and COVID-19. CBC was noted to be unremarkable. Hemoglobin is a bit low at 10 basic metabolic profile is normal BUN is 43 creatinine 5.31, BNP level is 2840. After reviewing the patient chart, apparently the patient was recently in the hospital from and he was discharged on diagnosed as having tracheobronchitis, pulmonary was not consulted on his last admission. However patient was discharged home on doxycycline at 100 mg p.o. twice daily. That did not seem to make any difference on his cough and did not make any difference on his cough induced syncope. Echocardiogram on his last admission showed no evidence of LV dysfunction, no evidence of significant valvular heart disease and there was no evidence of pulmonary hypertension. His ejection fraction was 55 to 60% The patient is seen today September 23, 2024 in follow-up on the regular medical floor. He is currently sitting up at the bedside having breakfast. Awake and alert in no acute distress. Maintaining good O2 saturations in the 90s on room air. He did receive hemodialysis yesterday with 2 L removed. White count 14.6. Hemoglobin 11.4. Platelets 309. Sodium 135. Potassium 4.4. Bicarb 25. BUN 39. Creatinine 4.2. Glucose 247. Procalcitonin negative at 0.21. He is currently on DuoNeb and elations, Solu-Medrol, antibiotics in the form of ceftri axone and azithromycin. Objective - Vital Signs Vital signs: Vital Signs Temp 98 F 09/23/24 07:00 Pulse 84 09/23/24 12:15 Resp 16 09/23/24 07:00 BP 157/80 09/23/24 07:00 Pulse Ox 95 09/23/24 07:00 FiO2 Intake & Output 09/22/24 09/23/24 09/23/24 18:59 06:59 18:59 Intake Total 618 200 Output Total 4500 300 Balance -3882 -300 200 Intake: Oral 118 200 Hemodialysis 500 Output: Urine 300 Hemodialysis 2500 Hemodialysis Net Amount 2000 Other: Voiding Method Toilet Toilet Urinal Urinal # Voids 1 2 - Exam GENERAL: Revealed a pleasant 79-year-old male sitting up having breakfast, in no distress, on room air HEAD: Atraumatic, normocephalic HEENT: Pupils are round and equally reacting to light. EOMI. No scleral icterus. No conjunctival pallor. No pharyngeal erythema. No thyromegaly. CARDIOVASCULAR: S1 and S2 present. No murmurs, rubs, or gallops. PULMONARY: Clear bilaterally no rhonchi no wheezes ABDOMEN: Soft, nontender, nondistended, normoactive bowel sounds. No palpable organomegaly. MUSCULOSKELETAL: No joint swelling or deformity. EXTREMITIES: No cyanosis, clubbing, or pedal edema. Left upper extremity AV fistula in place NEUROLOGICAL: Gross neurological examination did not reveal any focal deficits. SKIN: No rashes. - Labs CBC & Chem 7: 09/23/24 03:23 09/23/24 03:23 Labs: Abnormal Lab Results - Last 24 Hours (Table) 09/22/24 09/22/24 09/23/24 Range/Units 17:11 21:01 03:23 WBC 14.64 H (4.50-10.00) X 10*3/uL RBC 3.58 L (4.40-5.60) X 10*6/uL Hgb 11.4 L (13.0-17.0) g/dL Hct 33.3 L (39.6-50.0) % Chloride (96-109) mmol/L Anion Gap (4.00-12.00) mmol/L BUN (9.0-27.0) mg/dL Creatinine (0.6-1.5) mg/dL Est GFR (CKD-EPI) (>=60) BUN/Creatinine Ratio (12.00-20.00) Ratio Glucose (70-110) mg/dL POC Glucose (mg/dL) 364 H 409 H (70-110) mg/dL Total Bilirubin (0.3-1.2) mg/dL Albumin/Globulin Ratio (1.60-3.17) Ratio 09/23/24 09/23/24 09/23/24 Range/Units 03:23 06:09 12:07 WBC (4.50-10.00) X 10*3/uL RBC (4.40-5.60) X 10*6/uL Hgb (13.0-17.0) g/dL Hct (39.6-50.0) % Chloride 95 L (96-109) mmol/L Anion Gap 14.90 H (4.00-12.00) mmol/L BUN 38.8 H (9.0-27.0) mg/dL Creatinine 4.2 H (0.6-1.5) mg/dL Est GFR (CKD-EPI) 14 L (>=60) BUN/Creatinine Ratio 9.24 L (12.00-20.00) Ratio Glucose 247 H (70-110) mg/dL POC Glucose (mg/dL) 216 H 371 H (70-110) mg/dL Total Bilirubin 0.2 L (0.3-1.2) mg/dL Albumin/Globulin Ratio 1.38 L (1.60-3.17) Ratio Microbiology - Last 24 Hours (Table) 09/21/24 16:23 Blood Culture - Preliminary Blood Assessment and Plan Assessment: Cough induced syncope Bilateral pleural effusions/most likely secondary to chronic renal failure or diastolic congestive heart failure, patient had normal LV function based on his last echocardiogram Benign essential hypertension Dyslipidemia History of CVA Diabetes with diabetic peripheral neuropathy History of seizures. Patient is maintained on [facility] End-stage renal disease, on hemodialysis Thursday schedule Plan: The patient was seen and evaluated Labs and medications reviewed Stable and on room air Procalcitonin negative Discontinue antibiotics Discontinue steroids Continue bronchodilators Plan is for hemodialysis tomorrow To remove as much fluid as possible Home once cleared by nephrology I have personally seen and examined the patient, performed the documentation and the assessment and plan as written. Number of minutes spent on the visit: 10 Dictation was produced using Dragon dictation software. Please excuse any grammatical, word or spelling errors.
--- NOTE | 2024-09-23 15:24 | P.PN ---
Subjective Progress Note Date: 09/23/24 History of present illness; Patient is a 79-year-old male with ESRD, presenting for syncope induced by coug h. Patient is poor historian. He was recently admitted for similar symptoms on September 12 and subsequently discharged with doxycycline for treatment of tracheobronchitis for mucous plugging. Since this time patient has had persistent symptoms with sputum production. Denying fever, chills, shortness of breath, chest pain, palpitations at this time. Labs completed in emergency room significant for WBC 6.7, hemoglobin 10.0, sodium 132, potassium 5.0, bicarb 20, BUN 43, creatinine 5.31, glucose 260, A1c 7.3, ALP 146, proBNP 2840, viral respiratory panel is negative. EKG done in the ER independently interpreted showed sinus rhythm heart rate of 60, no ST segment elevation or depression seen, no T-wave inversions seen. Chest x-ray done independently interpreted in the ER showed hazy interstitial markings bilaterally 09/23/2024 Patient seen and examined at bedside. No acute events overnight. Will discontinue antibiotics and steroids. Today's labs significant for WBC 14.6, BUN 38, creatinine 4.2, glucose ranging from 416-209, procalcitonin negative, blood cultures pending with no growth thus far. REVIEW OF SYSTEMS: Pertinent positives and negatives noted in HPI. PHYSICAL EXAMINATION: Vitals reviewed GENERAL: No acute distress. Well developed, well nourished. HEENT: Pupils are round and equally reacting to light. EOMI. No scleral icterus. Normocephalic, atraumatic. No pharyngeal erythema. No thyromegaly. CARDIOVASCULAR: S1 and S2 present. No murmurs, rubs, or gallops. PULMONARY: Chest is clear to auscultation, no wheezing, rhonchi, or crackles. ABDOMEN: Soft, nontender, nondistended, normoactive bowel sounds. No palpable organomegaly. MUSCULOSKELETAL: No apparent joint swelling and deformities. EXTREMITIES: No apparent cyanosis, clubbing, or pedal edema. NEUROLOGICAL: The patient is alert and oriented x3, Gross neurological examination did not reveal any focal deficits. 5/5 Strength bilateral UE and LE SKIN: No apparent rashes. Assessment and plan Patient is a 79-year-old male with ESRD, presenting for cough induced syncope. # Respiratory distress #Cough induced syncope CT chest findings of moderate bilateral pleural effusions with associated atelectasis, no focal consolidation - Pending blood and sputum cultures - Pendi procalcitonin 0.21 - Discontinue antibiotics and Solu-Medrol Continue bronchodilators - encourage incentive spirometry Pulmonology following #ESRD Hemodialysis today, next session Thursday Consider more aggressive hemodialysis, CT findings of bilateral pleural effusion Nephrology following Chronic Medical Conditions #Hypertensionresume home meds #Diabetes mellitusbegin low-dose insulin, ACHS protocol #Peripheral neuropathyresume home medication #CADresume home medication F: P.o. E: Replete as needed N: Consistent carb diet Anticipated discharge place: Home Anticipated discharge time: Tomorrow Dictation was produced using [employer]aze D[employer] dictation software. Please excuse any grammatical, word or spelling errors. Attestation I have seen and examined this patient with my resident , discussed the same with the resident/ELISE, and agree with the dictator's assessment and plan as written Dr. Emmanuel medina Objective - Vital Signs Vital signs: Vital Signs Temp 98 F 09/23/24 07:00 Pulse 90 09/23/24 09:15 Resp 16 09/23/24 07:00 BP 157/80 09/23/24 07:00 Pulse Ox 95 09/23/24 07:00 FiO2 Intake & Output 09/22/24 09/23/24 09/23/24 18:59 06:59 18:59 Intake Total 618 200 Output Total 4500 300 Balance -3882 -300 200 Intake: Oral 118 200 Hemodialysis 500 Output: Urine 300 Hemodialysis 2500 Hemodialysis Net Amount 2000 Other: Voiding Method Toilet Urinal # Voids 1 2 - Labs CBC & Chem 7: 09/23/24 03:23 09/23/24 03:23 Labs: Abnormal Lab Results - Last 24 Hours (Table) 09/22/24 09/22/24 09/22/24 Range/Units 12:07 17:11 21:01 WBC (4.50-10.00) X 10*3/uL RBC (4.40-5.60) X 10*6/uL Hgb (13.0-17.0) g/dL Hct (39.6-50.0) % Chloride (96-109) mmol/L Anion Gap (4.00-12.00) mmol/L BUN (9.0-27.0) mg/dL Creatinine (0.6-1.5) mg/dL Est GFR (CKD-EPI) (>=60) BUN/Creatinine Ratio (12.00-20.00) Ratio Glucose (70-110) mg/dL POC Glucose (mg/dL) 154 H 364 H 409 H (70-110) mg/dL Total Bilirubin (0.3-1.2) mg/dL Albumin/Globulin Ratio (1.60-3.17) Ratio 09/23/24 09/23/24 09/23/24 Range/Units 03:23 03:23 06:09 WBC 14.64 H (4.50-10.00) X 10*3/uL RBC 3.58 L (4.40-5.60) X 10*6/uL Hgb 11.4 L (13.0-17.0) g/dL Hct 33.3 L (39.6-50.0) % Chloride 95 L (96-109) mmol/L Anion Gap 14.90 H (4.00-12.00) mmol/L BUN 38.8 H (9.0-27.0) mg/dL Creatinine 4.2 H (0.6-1.5) mg/dL Est GFR (CKD-EPI) 14 L (>=60) BUN/Creatinine Ratio 9.24 L (12.00-20.00) Ratio Glucose 247 H (70-110) mg/dL POC Glucose (mg/dL) 216 H (70-110) mg/dL Total Bilirubin 0.2 L (0.3-1.2) mg/dL Albumin/Globulin Ratio 1.38 L (1.60-3.17) Ratio Microbiology - Last 24 Hours (Table) 09/21/24 16:23 Blood Culture - Preliminary Blood
[2024-09-23 17:03] LABS: Glucose,Whole Blood 531 mg/dL (70-110)
[2024-09-23 20:07] LABS: Glucose,Whole Blood 502 mg/dL (70-110)
[2024-09-23] MEDS: INSULIN DETEMIR (LEVEMIR) 100 UNIT/ML SYR SQ SCH (20:55)
[2024-09-23 22:51] LABS: Glucose,Whole Blood 314 mg/dL (70-110)
[2024-09-24] MEDS: ONDANSETRON 4 MG/2 ML VIAL IVP PRN (00:40)
[2024-09-24 05:28] LABS: Glucose,Whole Blood 138 mg/dL (70-110)
[2024-09-24] MEDS: DEXTROSE 50% SYRINGE 50 ML IVP PRN ×2 (05:38→12:29)
[2024-09-24 05:46] LABS: Glucose,Whole Blood 249 mg/dL (70-110)
--- NOTE | 2024-09-24 07:14 | CT ---
EXAM: CT Head Without Intravenous Contrast CLINICAL HISTORY: ITS.REASON CT Reason: lt side weakness TECHNIQUE: Axial computed tomography images of the head/brain without intravenous contrast. CTDI is 98.2 mGy and DLP is 2486.2 mGy-cm. This CT exam was performed using one or more of the following dose reduction techniques: automated exposure control, adjustment of the mA and/or kV according to patient size, and/or use of iterative reconstruction technique. COMPARISON: Prior head CT from September 11, 2024. FINDINGS: Brain: Remote ischemic injuries of the right parietal and occipital lobes with encephalomalacia and gliosis. Remote ischemic injuries of the left frontal, parietal, temporal and occipital lobes with encephalomalacia and gliosis. No hemorrhage. No significant white matter disease. No edema. Ventricles: Mild ventriculomegaly. Bones/joints: Unremarkable. No acute fracture. Soft tissues: Unremarkable. Sinuses: Unremarkable as visualized. No acute sinusitis. Mastoid air cells: Unremarkable as visualized. No mastoid effusion. IMPRESSION: No evidence of acute intracranial pathology.
--- NOTE | 2024-09-24 07:21 | CT ---
EXAM: CT Angiography Head With Intravenous Contrast CLINICAL HISTORY: ITS.REASON CT Reason: code stroke left sided deficits TECHNIQUE: Axial computed tomographic angiography images of the head with intravenous contrast. CTDI is 7 mGy and DLP is 384 mGy-cm. This CT exam was performed using one or more of the following dose reduction techniques: automated exposure control, adjustment of the mA and/or kV according to patient size, and/or use of iterative reconstruction technique. MIP reconstructed images were created and reviewed. COMPARISON: No relevant prior studies available. FINDINGS: This study is limited secondary to motion artifact. The dural venous sinuses are patent. Right internal carotid artery: No acute findings. Intracranial segment is patent with no significant stenosis. No aneurysm. Right anterior cerebral artery: Unremarkable. No occlusion or significant stenosis. No aneurysm. Right middle cerebral artery: Unremarkable. No occlusion or significant stenosis. No aneurysm. Right posterior cerebral artery: Unremarkable. No occlusion or significant stenosis. No aneurysm. Right vertebral artery: Unremarkable as visualized. Left internal carotid artery: No acute findings. Intracranial segment is patent with no significant stenosis. No aneurysm. Left anterior cerebral artery: Unremarkable. No occlusion or significant stenosis. No aneurysm. Left middle cerebral artery: Unremarkable. No occlusion or significant stenosis. No aneurysm. Left posterior cerebral artery: Unremarkable. No occlusion or significant stenosis. No aneurysm. Left vertebral artery: Unremarkable as visualized. Basilar artery: Unremarkable. No occlusion or significant stenosis. No aneurysm. IMPRESSION: No evidence of large vessel occlusion. EXAM: CT Angiography Neck With Intravenous Contrast CLINICAL HISTORY: ITS.REASON CT Reason: code stroke left sided deficits TECHNIQUE: Routine carotid CT angiography protocol was performed with intravenous contrast. NASCET criteria using the distal ICAs for comparison were used for evaluation of stenoses. CTDI is 8.4 mGy and DLP is 300 mGy-cm. This CT exam was performed using one or more of the following dose reduction techniques: automated exposure control, adjustment of the mA and/or kV according to patient size, and/or use of iterative reconstruction technique. MIP reconstructed images were created and reviewed. COMPARISON: None. FINDINGS: VASCULATURE: Right common carotid artery: Unremarkable. No occlusion or significant stenosis. No dissection. Right internal carotid artery: Unremarkable. Extracranial segment is patent with no occlusion or significant stenosis. No dissection. Right external carotid artery: Unremarkable. No occlusion. Right vertebral artery: Unremarkable. No occlusion or significant stenosis. No dissection. Left common carotid artery: Unremarkable. No occlusion or significant stenosis. No dissection. Left internal carotid artery: Unremarkable. Extracranial segment is patent with no occlusion or significant stenosis. No dissection. Left external carotid artery: Unremarkable. No occlusion. Left vertebral artery: Unremarkable. No occlusion or significant stenosis. No dissection. NECK: Bones/joints: Unremarkable. No acute fracture. Soft tissues: Prominent mediastinal lymph mass. Prominent cervical lymph nodes. Bilateral thyroid nodules. Lung apices: Bronchitis with pneumonitis and large bilateral pleural effusions. CAROTID STENOSIS REFERENCE USING NASCET CRITERIA: % ICA stenosis = (1 - narrowest ICA diameter/diameter of distal cervical ICA) x 100. Mild - <50% stenosis. Moderate - 50-69% stenosis. Severe - 70-94% stenosis. Near occlusion - 95-99% stenosis. Occluded - 100% stenosis. IMPRESSION: Negative CTA neck.
[2024-09-24 08:23] LABS: Glucose,Whole Blood 166 mg/dL (70-110)
[2024-09-24] MEDS: ASPIRIN 300 MG SUPP RECTAL STA (09:31)
[2024-09-24 11:05] LABS: ALT 20 U/L (4-49); AST 30 U/L (17-59); African American GFR (CKD) 11 (>60 ml/min/1.73 sqM); Albumin 3.8 g/dL (3.5-5.0); Albumin/Globulin Ratio 1.5; Alkaline Phosphatase 97 U/L (38-126); Anion Gap 12 mmol/L; Blood Urea Nitrogen 78 mg/dL (9-20); Calcium 8.4 mg/dL (8.4-10.2); Carbon Dioxide 26 mmol/L (22-30); Chloride 95 mmol/L (98-107); Globulin 2.6 g/dL; Glucose 112 mg/dL (74-99); Non-African American GFR(CKD) 10 (>60 ml/min/1.73 sqM); Potassium 4.8 mmol/L (3.5-5.1); Sodium 133 mmol/L (137-145); Total Bilirubin 0.4 mg/dL (0.2-1.3); Total Protein 6.4 g/dL (6.3-8.2)
[2024-09-24] MEDS: ASPIRIN 325 MG TAB PO STA (12:00)
[2024-09-24 12:11] LABS: Glucose,Whole Blood 89 mg/dL (70-110)
[2024-09-24] MEDS: levETIRAcetam IV 500 MG/5 ML VIAL IVP SCH (12:28)
[2024-09-24 12:34] LABS: HCT 32.7 % (39.0-53.0); HGB 11.3 gm/dL (13.0-17.5); MCH 32.6 pg (25.0-35.0); MCHC 34.4 g/dL (31.0-37.0); MCV 94.7 fL (80.0-100.0); Mean Platelet Volume 8.5; Platelet Count 323 k/uL (150-450); RBC 3.46 m/uL (4.30-5.90); RDW 13.4 % (11.5-15.5)
--- NOTE | 2024-09-24 13:17 | MR ---
EXAMINATION TYPE: MR brain wo con DATE OF EXAM: 09/24/2024 12:08 PM COMPARISON: 11/05/2020. CLINICAL INDICATION: Male, 79 years old with history of CVA; PHH, CVA TECHNIQUE: Multi planar, multi sequence imaging was performed through the brain including: T1, T2, In version recovery, Diffusion weighted imaging, and gradient echo imaging. No gadolinium was given. FINDINGS: Restricted diffusion within the right insular cortex of the frontal lobe extending superior ly. There is encephalomalacia of the left parietal lobe from prior injury. Bilateral posterior predom inantly white matter changes. Additional encephalitis of the left inferior temporal lobe. The hernandez-wh ite junctions, ventricular system, basal cisterns appear unremarkable.. Midline structures show no ab normality. The susceptibility weighted images do not reveal any evidence for micro-hemorrhage. Susce ptibility artifact compatible with calcification and/or hemosiderin deposition within the left pariet al and left inferior temporal lobe injuries sites. The bone marrow signal is within normal limits. Paranasal sinuses and mastoid air cells: No significant paranasal sinus disease. Visualized orbits: Bilateral aphakia IMPRESSION: 1. Acute/subacute CVA involving the right MCA territory predominantly the right frontal lobe and ins ular cortex. 2. Remote injuries of the left parietal lobe and left inferior temporal lobe with encephalomalacia. 3. Nonspecific white matter changes, likely secondary to small vessel ischemic disease. [facility], , 09/24/2024 1:15 PM
--- NOTE | 2024-09-24 14:40 | P.PN ---
Subjective Progress Note Date: 09/24/24 Patient is seen in follow-up for end-stage renal disease. He is maintained on hemodialysis on Thursday schedule. bedside. Seen while on HD today. Vital signs are stable. General: No acute distress. HEENT: Head exam is unremarkable. LUNGS: No audible rhonchi or wheezes. HEART: Rate and Rhythm are regular. ABDOMEN: Nontender. EXTREMITITES: No edema. Objective - Vital Signs Vital signs: Vital Signs Temp 98.3 F 09/24/24 06:45 Pulse 67 09/24/24 08:00 Resp 16 09/24/24 08:00 BP 166/65 09/24/24 08:00 Pulse Ox 96 09/24/24 08:00 FiO2 Intake & Output 09/23/24 09/24/24 09/24/24 18:59 06:59 18:59 Intake Total 318 Balance 318 Intake: Oral 318 Other: Voiding Method Toilet Toilet Toilet Urinal Urinal Urinal # Voids 2 2 # Bowel Movements 1 - Labs CBC & Chem 7: 09/24/24 10:17 09/24/24 10:17 Labs: Abnormal Lab Results - Last 24 Hours (Table) 09/23/24 09/23/24 09/23/24 Range/Units 16:54 20:06 22:49 WBC (3.8-10.6) k/uL RBC (4.30-5.90) m/uL Hgb (13.0-17.5) gm/dL Hct (39.0-53.0) % Sodium (137-145) mmol/L Chloride (98-107) mmol/L BUN (9-20) mg/dL Creatinine (0.66-1.25) mg/dL Glucose (74-99) mg/dL POC Glucose (mg/dL) 531 H* 502 H* 314 H (70-110) mg/dL 09/24/24 09/24/24 09/24/24 Range/Units 05:25 05:44 08:22 WBC (3.8-10.6) k/uL RBC (4.30-5.90) m/uL Hgb (13.0-17.5) gm/dL Hct (39.0-53.0) % Sodium (137-145) mmol/L Chloride (98-107) mmol/L BUN (9-20) mg/dL Creatinine (0.66-1.25) mg/dL Glucose (74-99) mg/dL POC Glucose (mg/dL) 138 H 249 H 166 H (70-110) mg/dL 09/24/24 09/24/24 Range/Units 10:17 10:17 WBC 12.0 H (3.8-10.6) k/uL RBC 3.46 L (4.30-5.90) m/uL Hgb 11.3 L (13.0-17.5) gm/dL Hct 32.7 L (39.0-53.0) % Sodium 133 L (137-145) mmol/L Chloride 95 L (98-107) mmol/L BUN 78 H (9-20) mg/dL Creatinine 5.24 H (0.66-1.25) mg/dL Glucose 112 H (74-99) mg/dL POC Glucose (mg/dL) (70-110) mg/dL Microbiology - Last 24 Hours (Table) 09/21/24 16:23 Blood Culture - Preliminary Blood Assessment and Plan Assessment: 1. End-stage renal disease maintained on hemodialysis on Thursday schedule. 2. Pneumonia maintained on antibiotics. 3. Diabetes mellitus. 4. Hypertension with chronic kidney disease. Exacerbated by steroids. Plan: Hemodialysis today, seen during treatment Follow-up cultures.
--- NOTE | 2024-09-24 15:41 | P.PN ---
Subjective Progress Note Date: 09/24/24 History of present illness; Patient is a 79-year-old male with ESRD, presenting for syncope induced by coug h. Patient is poor historian. He was recently admitted for similar symptoms on September 12 and subsequently discharged with doxycycline for treatment of tracheobronchitis for mucous plugging. Since this time patient has had persistent symptoms with sputum production. Denying fever, chills, shortness of breath, chest pain, palpitations at this time. Labs completed in emergency room significant for WBC 6.7, hemoglobin 10.0, sodium 132, potassium 5.0, bicarb 20, BUN 43, creatinine 5.31, glucose 260, A1c 7.3, ALP 146, proBNP 2840, viral respiratory panel is negative. EKG done in the ER independently interpreted showed sinus rhythm heart rate of 60, no ST segment elevation or depression seen, no T-wave inversions seen. Chest x-ray done independently interpreted in the ER showed hazy interstitial markings bilaterally 09/23/2024 Patient seen and examined at bedside. No acute events overnight. Will discontinue antibiotics and steroids. Today's labs significant for WBC 14.6, BUN 38, creatinine 4.2, glucose ranging from 416-209, procalcitonin negative, blood cultures pending with no growth thus far. 09/24/2024 Patient seen and examined at bedside. Overnight patient began having strokelike symptoms at around 4 AM as witnessed by in the room with new onset left- sided weakness, left-sided facial droop and slurred speech with difficulty swallowing. Code stroke was called. Initial CT head with no evidence of acute intracranial process, later MRI of brain with subacute/acute CVA involving right MCA predominantly right frontal lobe and insular cortex. Patient given 300 mg of aspirin rectally as could not tolerate oral swallowing. Neurology consulted. Dialysis today. Today's labs WBC 12.0, hemoglobin 11.3, sodium 133, BUN 78, creatinine 5.24, glucose 166. REVIEW OF SYSTEMS: Pertinent positives and negatives noted in HPI. PHYSICAL EXAMINATION: Vitals reviewed GENERAL: No acute distress. Well developed, well nourished. HEENT: Eye reacting to light, bilateral right gaze. CARDIOVASCULAR: S1 and S2 present. No murmurs, rubs, or gallops. PULMONARY: Chest is clear to auscultation, no wheezing, rhonchi, or crackles. ABDOMEN: Soft, nontender, nondistended, normoactive bowel sounds. No palpable organomegaly. MUSCULOSKELETAL: No apparent joint swelling and deformities. EXTREMITIES: No apparent cyanosis, clubbing, or pedal edema. NEUROLOGICAL: Mild left-sided facial droop, left upper extremity strength 3/5, left lower extremity 0/5 at this time. 5/5 right side upper and lower extremities. SKIN: No apparent rashes. Assessment and plan Patient is a 79-year-old male with ESRD, presenting for cough induced syncope. #CVA involving right MCA MRI brain with subacute CVA involving right MCA predominantly right frontal lobe and insular cortex Given aspirin 300 rectally, begin aspirin 81 daily Begin atorvastatin 80 mg at bedtime - Holding midodrine for now Echocardiogram and EEG pending Neurology consulted # Respiratory distress #Cough induced syncope CT chest findings of moderate bilateral pleural effusions with associated atelectasis, no focal consolidation - Pending blood and sputum cultures - procalcitonin 0.21 - Discontinue antibiotics and Solu-Medrol Continue bronchodilators - encourage incentive spirometry Pulmonology following #ESRD Hemodialysis today, Thursday schedule Consider more aggressive hemodialysis, CT findings of bilateral pleural effusion Nephrology following #Diabetes mellitusbegin low-dose insulin, ACHS protocol Chronic Medical Conditions #Hypertension hold for now #Peripheral neuropathyresume home medication #Hx of CVAresume home medication F: P.o. E: Replete as needed N: Consistent carb diet Anticipated discharge place: Pending clinical course Anticipated discharge time: Pending clinical course Dictation was produced using 1calendar dictation software. Please excuse any grammatical, word or spelling errors. Attestation I have seen and examined this patient with my resident , discussed the same with the resident/ELISE, and agree with the dictator's assessment and plan as written Dr. Emmanuel medina Objective - Vital Signs Vital signs: Vital Signs Temp 98.3 F 09/24/24 06:45 Pulse 67 09/24/24 08:00 Resp 16 09/24/24 08:00 BP 166/65 09/24/24 08:00 Pulse Ox 96 09/24/24 08:00 FiO2 Intake & Output 09/23/24 09/24/24 09/24/24 18:59 06:59 18:59 Intake Total 318 Balance 318 Intake: Oral 318 Other: Voiding Method Toilet Toilet Toilet Urinal Urinal Urinal # Voids 2 2 # Bowel Movements 1 - Labs CBC & Chem 7: 09/25/24 08:26 09/24/24 10:17 Labs: Abnormal Lab Results - Last 24 Hours (Table) 09/23/24 09/23/24 09/23/24 Range/Units 16:54 20:06 22:49 WBC (3.8-10.6) k/uL RBC (4.30-5.90) m/uL Hgb (13.0-17.5) gm/dL Hct (39.0-53.0) % Sodium (137-145) mmol/L Chloride (98-107) mmol/L BUN (9-20) mg/dL Creatinine (0.66-1.25) mg/dL Glucose (74-99) mg/dL POC Glucose (mg/dL) 531 H* 502 H* 314 H (70-110) mg/dL 09/24/24 09/24/24 09/24/24 Range/Units 05:25 05:44 08:22 WBC (3.8-10.6) k/uL RBC (4.30-5.90) m/uL Hgb (13.0-17.5) gm/dL Hct (39.0-53.0) % Sodium (137-145) mmol/L Chloride (98-107) mmol/L BUN (9-20) mg/dL Creatinine (0.66-1.25) mg/dL Glucose (74-99) mg/dL POC Glucose (mg/dL) 138 H 249 H 166 H (70-110) mg/dL 09/24/24 09/24/24 Range/Units 10:17 10:17 WBC 12.0 H (3.8-10.6) k/uL RBC 3.46 L (4.30-5.90) m/uL Hgb 11.3 L (13.0-17.5) gm/dL Hct 32.7 L (39.0-53.0) % Sodium 133 L (137-145) mmol/L Chloride 95 L (98-107) mmol/L BUN 78 H (9-20) mg/dL Creatinine 5.24 H (0.66-1.25) mg/dL Glucose 112 H (74-99) mg/dL POC Glucose (mg/dL) (70-110) mg/dL Microbiology - Last 24 Hours (Table) 09/21/24 16:23 Blood Culture - Preliminary Blood
[2024-09-24 16:07] LABS: Glucose,Whole Blood 109 mg/dL (70-110)
--- NOTE | 2024-09-24 16:13 | P.PN ---
Subjective Progress Note Date: 09/24/24 Principal diagnosis: Cough induced syncope This is a 79-year-old male with history of end-stage renal disease, on hemodialysis Thursday and Thursday the patient himself is a very poor historian, most of the information obtained was from his daughter at bedside. The last couple of weeks, patient has been coughing and at times passing out, he had almost a dozen episodes of cough induced syncope. And never smoked, he has no history of COPD, his chest x-ray and CT of the chest done on this admission showed moderate bilateral pleural effusions with associated atelectasis. Chest x-ray showed mild interstitial prominence. Patient had his dialysis today and has CT of the chest done after dialysis clearly showed evidence of moderate- sized bilateral pleural effusions not clearly appreciated on the chest x-ray. Labs today showed negative screening for influenza A, influenza B, RSV and COVID-19. CBC was noted to be unremarkable. Hemoglobin is a bit low at 10 ba sic metabolic profile is normal BUN is 43 creatinine 5.31, BNP level is 2840. After reviewing the patient chart, apparently the patient was recently in the hospital from and he was discharged on diagnosed as having tracheobronchitis, pulmonary was not consulted on his last admission. However patient was discharged home on doxycycline at 100 mg p.o. twice daily. That did not seem to make any difference on his cough and did not make any difference on his cough induced syncope. Echocardiogram on his last admission showed no evidence of LV dysfunction, no evidence of significant valvular heart disease and there was no evidence of pulmonary hypertension. His ejection fraction was 55 to 60% The patient is seen today September 23, 2024 in follow-up on the regular medical floor. He is currently sitting up at the bedside having breakfast. Awake and alert in no acute distress. Maintaining good O2 saturations in the 90s on room air. He did receive hemodialysis yesterday with 2 L removed. White count 14.6. Hemoglobin 11.4. Platelets 309. Sodium 135. Potassium 4.4. Bicarb 25. BUN 39. Creatinine 4.2. Glucose 247. Procalcitonin negative at 0.21. He is currently on DuoNeb and elations, Solu-Medrol, antibiotics in the form of ceftriaxone and azithromycin. Patient was seen today on 09/24/2024, patient developed strokelike symptoms around 4 AM this morning and this was not witnessed by his , he developed a new onset left-sided weakness and left-sided facial droop with slurred speech, and difficulty swallowing. Code stroke was called, initial CT showed no evidence of acute intracranial process, MRI showed subacute CVA involving right middle cerebral artery predominantly right frontal lobe and insular cortex. Received aspirin rectally, as he could not take anything orally. Neurology was consulted, patient is supposed to have dialysis today. Pulmonary javier the patient is basically about the same. No further episodes of cough induced syncope. Objective - Vital Signs Vital signs: Vital Signs Temp 98.3 F 09/24/24 06:45 Pulse 67 09/24/24 14:00 Resp 16 09/24/24 14:00 BP 167/70 09/24/24 12:00 Pulse Ox 100 09/24/24 12:00 FiO2 Intake & Output 09/23/24 09/24/24 09/24/24 18:59 06:59 18:59 Intake Total 318 Balance 318 Intake: Oral 318 Other: Voiding Method Toilet Toilet Toilet Urinal Urinal Urinal # Voids 2 2 # Bowel Movements 1 - Exam GENERAL: Revealed a pleasant 79-year-old male seems to be a bit confused, patient has left-sided weakness which is relatively new today HEAD: Atraumatic, normocephalic HEENT: Pupils are round and equally reacting to light. EOMI. No scleral icterus. No conjunctival pallor. No pharyngeal erythema. No thyromegaly. CARDIOVASCULAR: S1 and S2 present. No murmurs, rubs, or gallops. PULMONARY: Clear bilaterally no rhonchi no wheezes ABDOMEN: Soft, nontender, nondistended, normoactive bowel sounds. No palpable organomegaly. MUSCULOSKELETAL: No joint swelling or deformity. EXTREMITIES: No cyanosis, clubbing, or pedal edema. Left upper extremity AV fistula in place NEUROLOGICAL: Confused with left-sided weakness noted. SKIN: No rashes. - Labs CBC & Chem 7: 09/24/24 10:17 09/24/24 10:17 Labs: Abnormal Lab Results - Last 24 Hours (Table) 09/23/24 09/23/24 09/23/24 Range/Units 16:54 20:06 22:49 WBC (3.8-10.6) k/uL RBC (4.30-5.90) m/uL Hgb (13.0-17.5) gm/dL Hct (39.0-53.0) % Sodium (137-145) mmol/L Chloride (98-107) mmol/L BUN (9-20) mg/dL Creatinine (0.66-1.25) mg/dL Glucose (74-99) mg/dL POC Glucose (mg/dL) 531 H* 502 H* 314 H (70-110) mg/dL 09/24/24 09/24/24 09/24/24 Range/Units 05:25 05:44 08:22 WBC (3.8-10.6) k/uL RBC (4.30-5.90) m/uL Hgb (13.0-17.5) gm/dL Hct (39.0-53.0) % Sodium (137-145) mmol/L Chloride (98-107) mmol/L BUN (9-20) mg/dL Creatinine (0.66-1.25) mg/dL Glucose (74-99) mg/dL POC Glucose (mg/dL) 138 H 249 H 166 H (70-110) mg/dL 09/24/24 09/24/24 Range/Units 10:17 10:17 WBC 12.0 H (3.8-10.6) k/uL RBC 3.46 L (4.30-5.90) m/uL Hgb 11.3 L (13.0-17.5) gm/dL Hct 32.7 L (39.0-53.0) % Sodium 133 L (137-145) mmol/L Chloride 95 L (98-107) mmol/L BUN 78 H (9-20) mg/dL Creatinine 5.24 H (0.66-1.25) mg/dL Glucose 112 H (74-99) mg/dL POC Glucose (mg/dL) (70-110) mg/dL Microbiology - Last 24 Hours (Table) 09/21/24 16:23 Blood Culture - Preliminary Blood Assessment and Plan Assessment: Impression: Acute CVA involving right middle cerebral artery as noted on MRI with left-sided weakness, slurred speech, left facial droop, patient to be evaluated by neurology Cough induced syncope Bilateral pleural effusions/most likely secondary to chronic renal failure or diastolic congestive heart failure, patient had normal LV function based on his last echocardiogram Benign essential hypertension Dyslipidemia History of CVA Diabetes with diabetic peripheral neuropathy History of seizures? Patient is maintained on Keppra End-stage renal disease, on hemodialysis Recommendation: Continue present supportive care measures Neurology to see on consultation Continue hemodialysis Cough suppression medications could be used to avoid cough induced syncope however I believe best to make sure the patient does not have evidence of pulmonary edema as noted on the CT of the chest would be the best measure Continue empiric antibiotics although I do not believe the patient has ongoing infection, could consider checking procalcitonin Continue bronchodilators, patient had no previous history of COPD Will continue to follow Time with Patient: Less than 30
[2024-09-24 20:01] LABS: Glucose,Whole Blood 194 mg/dL (70-110)
[2024-09-24 21:20] LABS: Glucose,Whole Blood 196 mg/dL (70-110)
[2024-09-24] MEDS: HEPARIN SODIUM,PORCINE 5,000 UNIT/ML 1 ML VIAL SQ SCH (22:02)
[2024-09-24] MEDS: ATORVASTATIN 80 MG TAB PO SCH (22:17)
[2024-09-24] MEDS: INSULIN DETEMIR (LEVEMIR) 100 UNIT/ML SYR SQ SCH (22:20)
--- NOTE | 2024-09-24 23:32 | P.CNNES ---
History of Present Illness Consult date: 09/24/24 Requesting physician: Edmundo Arnold Reason for Consult: CVA History of Present Illness: Patient is a 79-year-old right-handed male with history of hypertension, ESRD, on hemodialysis, multiple previous stroke/TIA, blindness, CAD, came to the hospital by ambulance on 09/21/2024 at 12:42 PM for syncopal spell. Patient's daughter and patient's were present, who provided with a history. Apparently patient was brought to the ER on 09/11/2024 for shortness of breath. Family mentions that patient gets possible cough syncope, in which she gets a bout of cough and then he passes out. He was discharged the following day with diagnosis of acute tracheobronchitis causing near syncope from mucous plugging and doxycycline was given. 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 Family mentions that since discharge from the hospital, he has been having bouts of coughing and then passing out almost every other day. As per EMS flowsheet, when the arrived, found patient laying in the bed propped up by pillows. Patient is mostly bedbound. Daughter on the scene states that patient choked on his phlegm while he was laying down. She states that this also has happened last weekend and he went to the hospital. She states that it took 3 people to get him sitting upright in bed so he did not choke anymore. Patient was alert and orient x 2 with GCS of 12. Patient was able to answer few questions appropriately. Patient's vitals at the scene was blood pressure 129/54 pulse rate 65 respiration 18 saturation 95%. In the hospital, patient was started on ceftriaxone and azithromycin. Patient was doing better. Apparently early this morning, stroke code was activated at 5:30 AM. According to the electronic records, patient's last known well was 4 AM. Patient's also stayed with the patient overnight. At 5:30 AM, patient was noted to have his typical choking and coughing spell and afterwards he was noted to be not coherent, with facial droop and left-sided weakness. Stroke code was initiated by the nursing staff. Apparently the stroke team in the hospital contacted stroke neurologist Dr. Centeno, who recommended CT head and CTA of head and neck. Patient's NIH stroke scale was 16 at 6:02 AM. Repeat NIH stroke scale at 6:[address] head revealed no acute intracranial pathology. Radiologist reported remote ischemic injuries of the right parietal and occipital lobes with encephalomalacia and gliosis. Remote ischemic injuries of the left frontal, parietal, temporal and occipital lobes with encephalomalacia and gliosis. No hemorrhage. Mild ventriculomegaly. I personally reviewed CT head at this time and agree with the findings. CTA of head and neck revealed no evidence of large vessel occlusion, and negative CTA of the neck. Patient did not receive tPA. Please refer to nursing notes for details. I was first time informed about this patient at 9:18 AM for CVA via [employer]. Patient apparently started having hemodialysis since March 2024. Patient does have "slight dementia". However he is functional, as he feeds himself, walks with a walker, talks fairly normally although sometimes he stutters. He is blind in the left eye, and has some peripheral vision in the right eye. He can see if he moves eyes certain ways. Patient has modified Liberty scale is 4 at baseline. Patient's home medications include aspirin 162.5 mg daily, midodrine 10 mg 3 times daily, Demadex, Coreg, insulin, nifedipine, Lipitor 20 mg, Keppra 5 mg twice daily and Cymbalta 30 mg at bedtime. Review of Systems All pertinent positive and negatives mentioned in HPI. Patient had headache earlier but no headache at this time. Denies any chest pain or abdominal pain. Past Medical History Past Medical History: CVA/TIA, Diabetes Mellitus, Hyperlipidemia, Hypertension, Liver Disease, Renal Disease, Sleep Apnea/CPAP/BIPAP Additional Past Medical History / Comment(s): ARTHRITIS, kidney stones, possible dementia, kidney failure, neuropathy alia legs, carpal tunnel. CVA-oct 20 balance issues,speech impairment,vision impairment, receives injections to eyes r/t bleeding ,COVID 07/28/2022 History of Any Multi-Drug Resistant Organisms: None Reported Past Surgical History: Back Surgery, Cholecystectomy Additional Past Surgical History / Comment(s): MASS REMOVED FROM BACK OF HEAD, eye surgery, Past Anesthesia/Blood Transfusion Reactions: No Reported Reaction Past Psychological History: Depression Smoking Status: Never smoker Past Alcohol Use History: None Reported Past Drug Use History: None Reported - Past Family History Father Family Medical History: Diabetes Mellitus Mother Family Medical History: Diabetes Mellitus Brother(s) Family Medical History: Cancer Sister(s) Family Medical History: Cancer Medications and Allergies Home Medications Medication Instructions Recorded Confirmed Type DULoxetine HCL [Cymbalta] 30 mg PO HS 03/13/16 09/21/24 History levETIRAcetam [Keppra] 500 mg PO BID 12/11/20 09/21/24 History Atorvastatin [Lipitor] 20 mg PO HS 07/18/21 09/21/24 History Ergocalciferol (Vitamin D2) 1,250 mcg PO MO 02/24/24 09/21/24 History [Drisdol (50,000 Iu)] NIFEdipine XL [Procardia XL] 60 mg PO BID 03/04/24 09/21/24 History INSULIN ASPART (NovoLOG) [NovoLOG 10 unit SQ AC-BID@0900,1200 04/17/24 09/21/24 History (formulary)] INSULIN ASPART (NovoLOG) [NovoLOG 12 unit SQ AC-SUPPER 04/17/24 09/21/24 History (formulary)] Insulin Glargine [Lantus Vial] 20 unit SQ HS 04/17/24 09/21/24 History Isosorbide Mononitrate ER [Imdur] 120 mg PO DAILY 04/17/24 09/21/24 History Vit B Comp No.3/Folic/C/Biotin 1 tab PO TUTHSA@0900,2100 04/17/24 09/21/24 History [Catie-Loly Rx Tablet] carvediloL [Coreg*] 12.5 mg PO BID 04/17/24 09/21/24 History Torsemide [Demadex] 20 mg PO DAILY #30 tab 04/18/24 09/21/24 Rx Albuterol Inhaler [Ventolin Hfa 2 puff INHALATION RT-QID PRN 09/11/24 09/21/24 History Inhaler] Aspirin 162.5 mg PO DAILY 09/11/24 09/21/24 History Midodrine HCl [ProAmatine] 10 mg PO TID PRN 09/11/24 09/21/24 History Allergies Allergy/AdvReac Type Severity Reaction Status Date / Time No Known Allergies Allergy Verified 09/21/24 14:56 Physical Examination - Vital Signs Vital Signs: Vital Signs Temp Pulse Pulse Resp BP BP Pulse Ox 09/24/24 08:00 67 16 166/65 96 09/24/24 07:16 70 19 157/58 92 L 09/24/24 07:01 70 20 155/58 97 09/24/24 06:45 98.3 F 70 12 164/64 97 09/24/24 06:15 65 138/65 97 09/24/24 06:02 55 L 133/55 97 09/24/24 01:56 71 17 09/24/24 01:50 98.5 F 65 16 157/57 100 09/23/24 20:54 71 17 09/23/24 19:31 97.4 F L 71 17 129/62 95 09/23/24 16:02 80 09/23/24 15:50 82 Intake and Output 09/23/24 09/24/24 09/24/24 22:59 06:59 14:59 Other: Voiding Method Toilet Toilet Toilet Urinal Urinal Urinal # Voids 1 2 # Bowel Movements 1 Patient is an elderly male, who appears slightly encephalopathic, but is in no acute distress. Patient does become alert and awake. He knows his age and current month of August. Speech is mildly dysarthric but no aphasia. Attention, concentration is slightly limited and fund of knowledge is decreased. On cranial nerve examination, pupils are equal, round and reacting to light, visual calzada are difficult to assess because of baseline visual field deficits. Patient is blind in the left side, and has some only partial vision in the right side. Patient believes his vision is worse than baseline. Patient has left gaze palsy. He can bring his gaze to the right side without much difficulty. No nystagmus. He has left facial weakness, slight. Tongue protrudes to midline. Hearing is slightly decreased. Shoulder shrug decreased on the left. On muscle strength testing, patient is flaccid left hemiplegic on the left side with no movement of the left arm and the left leg. Patient's strength is normal in the right arm and right leg. Deep tendon reflexes are symmetric and plantar is upgoing on the left side there is probable down on the right. Sensory to touch is decreased in the left arm. Cerebellar function showed no ataxia for [id number] testing on the right side. Cannot perform with the left.Tone and bulk of muscles normal. Gait deferred.. On general examination, there is no carotid bruit or murmur, S1-S2 audible. Chest is clear on consultation. Abdomen is soft nontender. No organomegaly, bowel sounds present. Peripheral pulses are present. No peripheral edema. Results - Laboratory Findings CBC and BMP: 09/24/24 10:17 09/24/24 10:17 Abnormal Lab Findings: Abnormal Labs 09/21/24 09/21/24 09/21/24 16:20 16:20 16:20 WBC RBC 3.15 L Hgb 10.0 L Hct 29.9 L Sodium 132 L Chloride Carbon Dioxide 20 L Anion Gap BUN 43 H Creatinine 5.31 H Est GFR (CKD-EPI) BUN/Creatinine Ratio Glucose 260 H POC Glucose (mg/dL) Hemoglobin A1c 7.3 H Total Bilirubin Alkaline Phosphatase 146 H Albumin/Globulin Ratio 09/21/24 09/21/24 09/22/24 16:45 20:27 06:10 WBC RBC Hgb Hct Sodium Chloride Carbon Dioxide Anion Gap BUN Creatinine Est GFR (CKD-EPI) BUN/Creatinine Ratio Glucose POC Glucose (mg/dL) 254 H 253 H 281 H Hemoglobin A1c Total Bilirubin Alkaline Phosphatase Albumin/Globulin Ratio 09/22/24 09/22/24 09/22/24 12:07 17:11 21:01 WBC RBC Hgb Hct Sodium Chloride Carbon Dioxide Anion Gap BUN Creatinine Est GFR (CKD-EPI) BUN/Creatinine Ratio Glucose POC Glucose (mg/dL) 154 H 364 H 409 H Hemoglobin A1c Total Bilirubin Alkaline Phosphatase Albumin/Globulin Ratio 09/23/24 09/23/24 09/23/24 03:23 03:23 06:09 WBC 14.64 H RBC 3.58 L Hgb 11.4 L Hct 33.3 L Sodium Chloride 95 L Carbon Dioxide Anion Gap 14.90 H BUN 38.8 H Creatinine 4.2 H Est GFR (CKD-EPI) 14 L BUN/Creatinine Ratio 9.24 L Glucose 247 H POC Glucose (mg/dL) 216 H Hemoglobin A1c Total Bilirubin 0.2 L Alkaline Phosphatase Albumin/Globulin Ratio 1.38 L 09/23/24 09/23/24 09/23/24 12:07 16:54 20:06 WBC RBC Hgb Hct Sodium Chloride Carbon Dioxide Anion Gap BUN Creatinine Est GFR (CKD-EPI) BUN/Creatinine Ratio Glucose POC Glucose (mg/dL) 371 H 531 H* 502 H* Hemoglobin A1c Total Bilirubin Alkaline Phosphatase Albumin/Globulin Ratio 09/23/24 09/24/24 09/24/24 22:49 05:25 05:44 WBC RBC Hgb Hct Sodium Chloride Carbon Dioxide Anion Gap BUN Creatinine Est GFR (CKD-EPI) BUN/Creatinine Ratio Glucose POC Glucose (mg/dL) 314 H 138 H 249 H Hemoglobin A1c Total Bilirubin Alkaline Phosphatase Albumin/Globulin Ratio 09/24/24 09/24/24 09/24/24 08:22 10:17 10:17 WBC 12.0 H RBC 3.46 L Hgb 11.3 L Hct 32.7 L Sodium 133 L Chloride 95 L Carbon Dioxide Anion Gap BUN 78 H Creatinine 5.24 H Est GFR (CKD-EPI) BUN/Creatinine Ratio Glucose 112 H POC Glucose (mg/dL) 166 H Hemoglobin A1c Total Bilirubin Alkaline Phosphatase Albumin/Globulin Ratio Assessment and Plan Assessment: * Acute ischemic stroke involving the right MCA territory predominantly in the right frontal lobe and insular cortex. Event appears embolic in nature. 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 * Cognitive impairment * Diabetes * ESRD on hemodialysis * Hypertension * Hyperlipidemia Plan: * MRI of the brain without contrast revealed acute/subacute CVA involving the right MCA territory, predominantly in the right frontal lobe and insular cortex. Remote injuries of the left parietal lobe and left inferior temporal lobe with encephalomalacia. Nonspecific white matter changes, likely secondary to small vessel ischemic disease. I personally reviewed MRI agree with the findings. Also evidence of old encephalomalacia involving right frontal and parietal region. Also evidence of some hemosiderin deposition in the left parietal region. Discussed MRI findings with stroke neurologist Dr. Centeno * 2-D echo with bubble study to rule out PFO. Patient may need KARISHMA. * Consult cardiology for loop recorder interrogation rule out paroxysmal atrial fibrillation. Patient may need KARISHMA. * CTA head and neck showed: No evidence of large vessel occlusion. Negative CTA of the neck. * Fasting a.m. lipid panel cholesterol 190, LDL 79, HDL 83 and triglycerides 135 on 08/14/2023. Will repeat. Continue Lipitor 80 mg. * Hemoglobin A1c 7.3 * Permissive hypertension for next 24-48 hours * Resume aspirin. Patient received aspirin 300 mg rectally, as cannot take by mouth. Continue aspirin 300 mg rectally until able to take by mouth. Patient may need dual antiplatelet therapy. Neuro checks every 2 hours. * Telemetry monitoring rule out any arrhythmia * PT, OT, speech therapy * DVT prophylaxis: Heparin 5000 units subcu every 8 hours * Neurology will continue to follow. Discussed with patient's family, nursing staff, primary team and neurointervention Dr Centeno. * Thank you for the consult. Time with Patient: Greater than 30
[2024-09-25 01:19] LABS: Glucose,Whole Blood 175 mg/dL (70-110)
[2024-09-25 06:13] LABS: Glucose,Whole Blood 137 mg/dL (70-110)
[2024-09-25 08:52] LABS: HCT 35.1 % (39.0-53.0); MCH 32.5 pg (25.0-35.0); MCHC 34.3 g/dL (31.0-37.0); MCV 94.9 fL (80.0-100.0); Mean Platelet Volume 7.6; Platelet Count 298 k/uL (150-450); RDW 13.8 % (11.5-15.5); WBC 10.2 k/uL (3.8-10.6)
[2024-09-25] MEDS ORDERED: ASPIRIN 81 MG PO SCH (09:00)
[2024-09-25 09:18] LABS: ALT 29 U/L (4-49); AST 42 U/L (17-59); African American GFR (CKD) 14 (>60 ml/min/1.73 sqM); Albumin 4.1 g/dL (3.5-5.0); Alkaline Phosphatase 92 U/L (38-126); Anion Gap 10 mmol/L; Blood Urea Nitrogen 49 mg/dL (9-20); Calcium 8.8 mg/dL (8.4-10.2); Carbon Dioxide 30 mmol/L (22-30); Chloride 94 mmol/L (98-107); Glucose 101 mg/dL (74-99); Non-African American GFR(CKD) 12 (>60 ml/min/1.73 sqM); Potassium 4.1 mmol/L (3.5-5.1); Sodium 134 mmol/L (137-145); Total Bilirubin 0.5 mg/dL (0.2-1.3)
[2024-09-25] MEDS: ASPIRIN 300 MG SUPP RECTAL SCH (10:03)
--- NOTE | 2024-09-25 11:24 | P.PN ---
Subjective Progress Note Date: 09/25/24 Patient is seen in follow-up for end-stage renal disease. He is maintained on hemodialysis on Thursday schedule. Had rapid yesterday morning concerning for stroke. Vital signs are stable. General: No acute distress. HEENT: Head exam is unremarkable. LUNGS: No audible rhonchi or wheezes. HEART: Rate and Rhythm are regular. ABDOMEN: Nontender. EXTREMITITES: No edema. Objective - Vital Signs Vital signs: Vital Signs Temp 98.6 F 09/25/24 04:26 Pulse 84 09/25/24 09:26 Resp 18 09/25/24 04:26 BP 173/72 09/25/24 04:26 Pulse Ox 100 09/25/24 09:26 FiO2 Intake & Output 09/24/24 09/25/24 09/25/24 18:59 06:59 18:59 Intake Total 400 Output Total 4400 650 Balance -4000 -650 Weight 86.5 kg Intake: Hemodialysis 400 Output: Urine 650 Uretheral (Hu) 350 Hemodialysis 2400 Hemodialysis Net Amount 2000 Other: Voiding Method Toilet Toilet Urinal Urinal # Voids 0 - Labs CBC & Chem 7: 09/25/24 08:26 09/25/24 08:26 Labs: Abnormal Lab Results - Last 24 Hours (Table) 09/24/24 09/24/24 09/24/24 Range/Units 10:17 10:17 20:00 WBC 12.0 H (3.8-10.6) k/uL RBC 3.46 L (4.30-5.90) m/uL Hgb 11.3 L (13.0-17.5) gm/dL Hct 32.7 L (39.0-53.0) % Sodium 133 L (137-145) mmol/L Chloride 95 L (98-107) mmol/L BUN 78 H (9-20) mg/dL Creatinine 5.24 H (0.66-1.25) mg/dL Glucose 112 H (74-99) mg/dL POC Glucose (mg/dL) 194 H (70-110) mg/dL 09/24/24 09/25/24 09/25/24 Range/Units 21:18 01:15 06:10 WBC (3.8-10.6) k/uL RBC (4.30-5.90) m/uL Hgb (13.0-17.5) gm/dL Hct (39.0-53.0) % Sodium (137-145) mmol/L Chloride (98-107) mmol/L BUN (9-20) mg/dL Creatinine (0.66-1.25) mg/dL Glucose (74-99) mg/dL POC Glucose (mg/dL) 196 H 175 H 137 H (70-110) mg/dL 09/25/24 09/25/24 Range/Units 08:26 08:26 WBC (3.8-10.6) k/uL RBC 3.70 L (4.30-5.90) m/uL Hgb 12.0 L (13.0-17.5) gm/dL Hct 35.1 L (39.0-53.0) % Sodium 134 L (137-145) mmol/L Chloride 94 L (98-107) mmol/L BUN 49 H (9-20) mg/dL Creatinine 4.27 H (0.66-1.25) mg/dL Glucose 101 H (74-99) mg/dL POC Glucose (mg/dL) (70-110) mg/dL Microbiology - Last 24 Hours (Table) 09/21/24 16:23 Blood Culture - Preliminary Blood Assessment and Plan Assessment: 1. End-stage renal disease maintained on hemodialysis on Thursday schedule. 2. Pneumonia maintained on antibiotics. 3. Diabetes mellitus. 4. Hypertension with chronic kidney disease. Exacerbated by steroids. 5. Acute/Subacute CVA- neurology following. Plan: Hemodialysis TTS schedule Blood cultures negative so far
--- NOTE | 2024-09-25 11:38 | P.CRDCN ---
History of Present Illness History of present illness: HISTORY OF PRESENT ILLNESS: This is a 79-year-old male with a past medical history significant for coronary artery disease, hypertension, hyperlipidemia, CVA, diabetes, and chronic kidney disease. Patient follows in the office with Dr. Fischer. We have been asked to see the patient in consultation for CVA and loop recorder interrogation. Patient examined at the bedside. Patient was hospitalized earlier this month for cough induced syncope. Patient was discharged home and presented back to the hospital with similar symptoms. While in the hospital he developed left-sided weakness a nd was found to be positive for CVA. Patient currently denies chest pain or pressure. Denies shortness of breath. The patient was previously prescribed Eliquis for unknown reason however he was not currently taking this. Family has denied any history of atrial fibrillation or PE/DVT. Patient is currently maintaining sinus mechanism. Loop recorder interrogation performed revealing episodes of atrial fibrillation. DIAGNOSTICS: - EKG reveals sinus mechanism with no signs of acute ischemia - Chest xray hazy interstitial markings seen bilaterally may relate to infectious/inflammatory process. - Laboratory data: WBC 10.2. Hemoglobin 12.0. Platelet count 298. Sodium 134. Potassium 4.1. BUN 49. Creatinine 4.27. - Current home cardiac medications include aspirin 162.5 mg daily, Lipitor 20 mg at night, Imdur 120 mg daily, midodrine 10 mg 3 times a day as needed, Procardia 60 mg twice a day, Demadex 20 mg daily, carvedilol 12.5 mg twice a day - Most recent echocardiogram obtained in August 2024 revealed ejection fraction 55 to 60% with no significant valvular disease - Cardiac catheterization history: 2008 revealing approximately 40%, mid LAD 50%, diagonal 50%, circumflex 50%, and nondominant RCA with no significant stenosis -Patient underwent Lexiscan stress test in March 2024 which was negative for ischemia REVIEW OF SYSTEMS: At the time of my exam: CONSTITUTIONAL: Denies fever or chills. HEENT: Denies blurred vision, vision changes, or eye pain. Denies hemoptysis CARDIOVASCULAR: Denies chest pain. Denies orthopnea. Denies PND. Denies palpitations RESPIRATORY: Denies shortness of breath. GASTROINTESTINAL: Denies abdominal pain. Denies nausea or vomiting. HEMATOLOGIC: Denies bleeding disorders. GENITOURINARY: Denies any blood in urine. SKIN: Denies pruitis. Denies rash. PHYSICAL EXAM: VITAL SIGNS: Reviewed. GENERAL: Well-developed in no acute distress. HEENT: Head is normocephalic. Pupils are equal, round. Sclerae anicteric. Mucous membranes of the mouth are moist. Neck supple. No JVD or thyromegaly LUNGS: Respirations even and unlabored. Lungs essentially clear to auscultation bilaterally. HEART: Regular rate and rhythm. S1 and S2 heard. Systolic murmur noted ABDOMEN: Soft. Nondistended. Nontender. EXTREMITIES: Left-sided weakness. Normal range of motion. No clubbing or cyanosis. Peripheral pulses intact. No lower extremity edema NEUROLOGIC: Awake and alert. ASSESSMENT: Acute/subacute CVA involving right MCA territory New onset atrial fibrillation, found on loop recorder interrogation, maintaining sinus mechanism Recent diagnosis and hospitalization for tussive syncope Nonobstructive CAD, per cath 2008 History of loop recorder implantation, [employer], 2020 Chronic kidney disease on hemodialysis Hypertension Hyperlipidemia History of CVA Diabetes PLAN: No need to repeat echocardiogram as this was performed earlier this month Check TSH Continue telemetry monitoring Loop recorder interrogation performed this morning revealing episodes of atrial fibrillation. Patient is currently in sinus mechanism. Case discussed with Dr. Bustillo who recommends repeating brain CT tomorrow. If stable, can initiate IV heparin at that time. Patient currently NPO and awaiting speech eval. If patient is able to take oral medications tomorrow, can begin Eliquis instead of IV heparin. Further recommendations pending patient course Nurse practitioner note has been reviewed by physician. Signing provider agrees with the documented findings, assessment, and plan of care documented by [employer] as a scribe. Past Medical History Past Medical History: CVA/TIA, Diabetes Mellitus, Hyperlipidemia, Hypertension, Liver Disease, Renal Disease, Sleep Apnea/CPAP/BIPAP Additional Past Medical History / Comment(s): ARTHRITIS, kidney stones, possible dementia, kidney failure, neuropathy alia legs, carpal tunnel. CVA-jul 17 balance issues,speech impairment,vision impairment, receives injections to eyes r/t bleeding ,COVID 07/28/2022 History of Any Multi-Drug Resistant Organisms: None Reported Past Surgical History: Back Surgery, Cholecystectomy Additional Past Surgical History / Comment(s): MASS REMOVED FROM BACK OF HEAD, eye surgery, Past Anesthesia/Blood Transfusion Reactions: No Reported Reaction Past Psychological History: Depression Smoking Status: Never smoker Past Alcohol Use History: None Reported Past Drug Use History: None Reported - Past Family History Father Family Medical History: Diabetes Mellitus Mother Family Medical History: Diabetes Mellitus Brother(s) Family Medical History: Cancer Sister(s) Family Medical History: Cancer Medications and Allergies Home Medications Medication Instructions Recorded Confirmed Type DULoxetine HCL [Cymbalta] 30 mg PO HS 03/13/16 09/21/24 History levETIRAcetam [Keppra] 500 mg PO BID 12/11/20 09/21/24 History Atorvastatin [Lipitor] 20 mg PO HS 07/18/21 09/21/24 History Ergocalciferol (Vitamin D2) 1,250 mcg PO MO 02/24/24 09/21/24 History [Drisdol (50,000 Iu)] NIFEdipine XL [Procardia XL] 60 mg PO BID 03/04/24 09/21/24 History INSULIN ASPART (NovoLOG) [NovoLOG 10 unit SQ AC-BID@0900,1200 04/17/24 09/21/24 History (formulary)] INSULIN ASPART (NovoLOG) [NovoLOG 12 unit SQ AC-SUPPER 04/17/24 09/21/24 History (formulary)] Insulin Glargine [Lantus Vial] 20 unit SQ HS 04/17/24 09/21/24 History Isosorbide Mononitrate ER [Imdur] 120 mg PO DAILY 04/17/24 09/21/24 History Vit B Comp No.3/Folic/C/Biotin 1 tab PO TUTHSA@0900,2100 04/17/24 09/21/24 History [Catie-Loly Rx Tablet] carvediloL [Coreg*] 12.5 mg PO BID 04/17/24 09/21/24 History Torsemide [Demadex] 20 mg PO DAILY #30 tab 04/18/24 09/21/24 Rx Albuterol Inhaler [Ventolin Hfa 2 puff INHALATION RT-QID PRN 09/11/24 09/21/24 History Inhaler] Aspirin 162.5 mg PO DAILY 09/11/24 09/21/24 History Midodrine HCl [ProAmatine] 10 mg PO TID PRN 09/11/24 09/21/24 History Allergies Allergy/AdvReac Type Severity Reaction Status Date / Time No Known Allergies Allergy Verified 09/21/24 14:56 Physical Exam Vitals: Vital Signs Temp Pulse Pulse Resp BP Pulse Ox 09/25/24 09:39 86 09/25/24 09:26 84 100 09/25/24 04:26 98.6 F 80 18 173/72 98 09/25/24 02:00 79 18 09/24/24 23:54 99.3 F 79 18 179/63 100 09/24/24 20:02 97.4 F L 79 18 175/65 100 09/24/24 18:00 98.7 F 76 19 177/72 09/24/24 16:00 75 18 173/69 98 09/24/24 14:00 67 16 09/24/24 12:00 67 16 167/70 100 Intake and Output 09/24/24 09/25/24 09/25/24 22:59 06:59 14:59 Intake Total 400 Output Total 5050 Balance -4650 Intake: Hemodialysis 400 Output: Urine 650 Uretheral (Hu) 350 Hemodialysis 2400 Hemodialysis Net Amount 2000 Other: Voiding Method Toilet Toilet Urinal Urinal Weight 86.5 kg Results 09/25/24 08:26 09/25/24 08:26 Cardiac Enzymes 09/25/24 Range/Units 08:26 AST 42 (17-59) U/L CBC 09/24/24 09/25/24 Range/Units 10:17 08:26 WBC 12.0 H 10.2 (3.8-10.6) k/uL RBC 3.46 L 3.70 L (4.30-5.90) m/uL Hgb 11.3 L 12.0 L (13.0-17.5) gm/dL Hct 32.7 L 35.1 L (39.0-53.0) % Plt Count 323 298 (150-450) k/uL Comprehensive Metabolic Panel 09/25/24 Range/Units 08:26 Sodium 134 L (137-145) mmol/L Potassium 4.1 (3.5-5.1) mmol/L Chloride 94 L (98-107) mmol/L Carbon Dioxide 30 (22-30) mmol/L BUN 49 H (9-20) mg/dL Creatinine 4.27 H (0.66-1.25) mg/dL Glucose 101 H (74-99) mg/dL Calcium 8.8 (8.4-10.2) mg/dL AST 42 (17-59) U/L ALT 29 (4-49) U/L Alkaline Phosphatase 92 (38-126) U/L Total Protein 7.0 (6.3-8.2) g/dL Albumin 4.1 (3.5-5.0) g/dL Current Medications Generic Name Dose Route Start Last Admin Trade Name Freq PRN Reason Stop Dose Admin Acetaminophen 650 mg 09/21/24 15:47 09/23/24 17:51 Acetaminophen Tab 325 Mg Tab PO 650 mg Q4HR PRN Administration Mild Pain or Fever > 100.5 Albuterol/Ipratropium 3 ml 09/21/24 15:47 Ipratropium-Albuterol 3 Ml Neb INHALATION RT-Q2H PRN Shortness Of Breath Or Wheezing Albuterol/Ipratropium 3 ml 09/21/24 16:00 09/25/24 09:26 Ipratropium-Albuterol 3 Ml Neb INHALATION 3 ml RT-QID BETSY Administration Aspirin 300 mg 09/25/24 09:00 09/25/24 10:03 Aspirin 300 Mg Supp RECTAL 300 mg DAILY BETSY Administration Atorvastatin Calcium 80 mg 09/24/24 21:00 09/24/24 22:17 Atorvastatin 80 Mg Tab PO Not Given HS BETSY Carvedilol 12.5 mg 09/21/24 21:00 09/24/24 22:17 Carvedilol 12.5 Mg Tab PO Not Given BID BETSY Dextrose/Water 25 ml 09/21/24 20:24 09/24/24 12:29 Dextrose 50% Syringe 50 Ml IVP 25 ml PER PROTOCOL PRN Administration Hypoglycemia Protocol Dextrose/Water 50 ml 09/21/24 20:24 09/24/24 05:38 Dextrose 50% Syringe 50 Ml IVP 50 ml PER PROTOCOL PRN Administration Hypoglycemia Protocol Duloxetine HCl 30 mg 09/21/24 21:00 09/24/24 22:17 Duloxetine Hcl 30 Mg Capsule.Dr PO Not Given HS BETSY Heparin Sodium (Porcine) 5,000 unit 09/24/24 21:00 09/25/24 09:35 Heparin Sodium,Porcine 5,000 Unit/Ml 1 Ml Vial SQ 5,000 unit Q12HR BETSY Administration Dextrose/Water 1,000 mls @ 50 mls/hr 09/24/24 17:00 Dextrose 5%-Water Iv Soln IV .Q20H BETSY Insulin Aspart 0 unit 09/21/24 21:00 09/25/24 06:38 Insulin Aspart (Novolog) 100 Unit/Ml Vial SQ Not Given ACHS [facility] Protocol Insulin Detemir 20 unit 09/24/24 21:00 09/24/24 22:20 Insulin Detemir (Levemir) 100 Unit/Ml Syr SQ 20 unit HS BETSY Administration Levetiracetam 500 mg 09/24/24 12:00 09/25/24 09:35 Levetiracetam Iv 500 Mg/5 Ml Vial IVP 500 mg Q12HR BETSY Administration Multivit/Ca Carb/B Cmplx/FA/Prenat 1 each 09/22/24 09:00 09/24/24 22:17 Folic Acid-Vit B Complex-Vit C 1 Cap PO Not Given TUTHSA@0900,2100 [facility] Naloxone HCl 0.2 mg 09/21/24 15:47 Naloxone 0.4 Mg/Ml 1 Ml Vial IVP Q2M PRN Opioid Reversal Ondansetron HCl 4 mg 09/24/24 00:30 09/24/24 00:40 Ondansetron 4 Mg/2 Ml Vial IVP 4 mg Q6HR PRN Administration Nausea And Vomiting Intake and Output 09/24/24 09/25/24 09/25/24 22:59 06:59 14:59 Intake Total 400 Output Total 5050 Balance -4650 Intake: Hemodialysis 400 Output: Urine 650 Uretheral (Hu) 350 Hemodialysis 2400 Hemodialysis Net Amount 1999 Other: Voiding Method Toilet Toilet Urinal Urinal Weight 86.5 kg 09/25/24 08:26 09/25/24 08:26
[2024-09-25 11:40] LABS: Glucose,Whole Blood 113 mg/dL (70-110)
[2024-09-25] MEDS: DEXTROSE 5% IN WATER 1,000 ML IV SCH (11:50)
--- NOTE | 2024-09-25 14:43 | P.PN ---
Subjective Progress Note Date: 09/25/24 History of present illness; Patient is a 79-year-old male with ESRD, presenting for syncope induced by coug h. Patient is poor historian. He was recently admitted for similar symptoms on September 12 and subsequently discharged with doxycycline for treatment of tracheobronchitis for mucous plugging. Since this time patient has had persistent symptoms with sputum production. Denying fever, chills, shortness of breath, chest pain, palpitations at this time. Labs completed in emergency room significant for WBC 6.7, hemoglobin 10.0, sodium 132, potassium 5.0, bicarb 20, BUN 43, creatinine 5.31, glucose 260, A1c 7.3, ALP 146, proBNP 2840, viral respiratory panel is negative. EKG done in the ER independently interpreted showed sinus rhythm heart rate of 60, no ST segment elevation or depression seen, no T-wave inversions seen. Chest x-ray done independently interpreted in the ER showed hazy interstitial markings bilaterally 09/23/2024 Patient seen and examined at bedside. No acute events overnight. Will discontinue antibiotics and steroids. Today's labs significant for WBC 14.6, BUN 38, creatinine 4.2, glucose ranging from 416-209, procalcitonin negative, blood cultures pending with no growth thus far. 09/24/2024 Patient seen and examined at bedside. Overnight patient began having strokelike symptoms at around 4 AM as witnessed by in the room with new onset left- sided weakness, left-sided facial droop and slurred speech with difficulty swallowing. Code stroke was called. Initial CT head with no evidence of acute intracranial process, later MRI of brain with subacute/acute CVA involving right MCA predominantly right frontal lobe and insular cortex. Patient given 300 mg of aspirin rectally as could not tolerate oral swallowing. Neurology consulted. Dialysis today. Today's labs WBC 12.0, hemoglobin 11.3, sodium 133, BUN 78, creatinine 5.24, glucose 166. 09/25. Patient seen and examined. Patient is moving his left upper extremity more than yesterday, also lifting his left lower extremity. Family thinks that patient has improved compared to yesterday REVIEW OF SYSTEMS: Pertinent positives and negatives noted in HPI. PHYSICAL EXAMINATION: Vitals reviewed GENERAL: No acute distress. Well developed, well nourished. HEENT: Eye reacting to light, bilateral right gaze. CARDIOVASCULAR: S1 and S2 present. No murmurs, rubs, or gallops. PULMONARY: Chest is clear to auscultation, no wheezing, rhonchi, or crackles. ABDOMEN: Soft, nontender, nondistended, normoactive bowel sounds. No palpable organomegaly. MUSCULOSKELETAL: No apparent joint swelling and deformities. EXTREMITIES: No apparent cyanosis, clubbing, or pedal edema. NEUROLOGICAL: Mild left-sided facial droop, left upper extremity strength 3/5, left lower extremity 3/5 at this time. 5/5 right side upper and lower extremities. SKIN: No apparent rashes. Assessment and plan Patient is a 79-year-old male with ESRD, presenting for cough induced syncope. # Acute CVA involving right MCA New onset paroxysmal atrial fibrillation currently in NSR MRI brain with subacute CVA involving right MCA predominantly right frontal lobe and insular cortex Given aspirin 300 rectally, begin aspirin 81 daily Begin atorvastatin 80 mg at bedtime -Speech consulted Loop recorder interrogation showed new onset atrial fibrillation Continue IV Cardizem Cardiology following Neurology following, recommending repeating CT head tomorrow if does not show any worsening of stroke, started on heparin # Respiratory distress #Cough induced syncope CT chest findings of moderate bilateral pleural effusions with associated atelectasis, no focal consolidation Continue bronchodilators - encourage incentive spirometry Pulmonology following #ESRD Continue lisinopril nephrology #Diabetes mellitusbegin low-dose insulin, ACHS protocol Chronic Medical Conditions #Hypertension hold for now #Peripheral neuropathyresume home medication #Hx of CVAas mentioned above Objective - Vital Signs Vital signs: Vital Signs Temp 98.0 F 09/25/24 08:00 Pulse 82 09/25/24 12:30 Resp 18 09/25/24 08:00 BP 170/89 09/25/24 08:00 Pulse Ox 100 09/25/24 09:26 FiO2 Intake & Output 09/24/24 09/25/24 09/25/24 18:59 06:59 18:59 Intake Total 400 Output Total 4400 650 Balance -4000 -650 Weight 86.5 kg Intake: Hemodialysis 400 Output: Urine 650 Uretheral (Hu) 350 Hemodialysis 2400 Hemodialysis Net Amount 2000 Other: Voiding Method Toilet Toilet Urinal Urinal Urinal # Voids 0 - Labs CBC & Chem 7: 09/25/24 08:26 09/25/24 08:26 Labs: Abnormal Lab Results - Last 24 Hours (Table) 09/24/24 09/24/24 09/25/24 Range/Units 20:00 21:18 01:15 RBC (4.30-5.90) m/uL Hgb (13.0-17.5) gm/dL Hct (39.0-53.0) % Sodium (137-145) mmol/L Chloride (98-107) mmol/L BUN (9-20) mg/dL Creatinine (0.66-1.25) mg/dL Glucose (74-99) mg/dL POC Glucose (mg/dL) 194 H 196 H 175 H (70-110) mg/dL 09/25/24 09/25/24 09/25/24 Range/Units 06:10 08:26 08:26 RBC 3.70 L (4.30-5.90) m/uL Hgb 12.0 L (13.0-17.5) gm/dL Hct 35.1 L (39.0-53.0) % Sodium 134 L (137-145) mmol/L Chloride 94 L (98-107) mmol/L BUN 49 H (9-20) mg/dL Creatinine 4.27 H (0.66-1.25) mg/dL Glucose 101 H (74-99) mg/dL POC Glucose (mg/dL) 137 H (70-110) mg/dL 09/25/24 Range/Units 11:38 RBC (4.30-5.90) m/uL Hgb (13.0-17.5) gm/dL Hct (39.0-53.0) % Sodium (137-145) mmol/L Chloride (98-107) mmol/L BUN (9-20) mg/dL Creatinine (0.66-1.25) mg/dL Glucose (74-99) mg/dL POC Glucose (mg/dL) 113 H (70-110) mg/dL Microbiology - Last 24 Hours (Table) 09/21/24 16:23 Blood Culture - Preliminary Blood
[2024-09-25] MEDS: DILTIAZEM DRIP BOLUS FROM BAG 1 MG SOLN IV ONE (15:01)
--- NOTE | 2024-09-25 15:05 | P.PN ---
Subjective Progress Note Date: 09/25/24 Principal diagnosis: Cough induced syncope acute CVA This is a 79-year-old male with history of end-stage renal disease, on hemodialysis Thursday and Thursday the patient himself is a very poor historian, most of the information obtained was from his daughter at bedside. The last couple of weeks, patient has been coughing and at times passing out, he had almost a dozen episodes of cough induced syncope. And never smoked, he has no history of COPD, his chest x-ray and CT of the chest done on this admission showed moderate bilateral pleural effusions with associated atelectasis. Chest x-ray showed mild interstitial prominence. Patient had his dialysis today and has CT of the chest done after dialysis clearly showed evidence of moderate- sized bilateral pleural effusions not clearly appreciated on the chest x-ray. Labs today showed negative screening for influenza A, influenza B, RSV and COVID-19. CBC was noted to be unremarkable. Hemoglobin is a bit low at 10 basic metabolic profile is normal BUN is 43 creatinine 5.31, BNP level is 2840. After reviewing the patient chart, apparently the patient was recently in the hospital from and he was discharged on diagnosed as having tracheobronchitis, pulmonary was not consulted on his last admission. However patient was discharged home on doxycycline at 100 mg p.o. twice daily. That did not seem to make any difference on his cough and did not make any difference on his cough induced syncope. Echocardiogram on his last admission showed no evidence of LV dysfunction, no evidence of significant valvular heart disease and there was no evidence of pulmonary hypertension. His ejection fraction was 55 to 60% The patient is seen today September 23, 2024 in follow-up on the regular medical floor. He is currently sitting up at the bedside having breakfast. Awake and alert in no acute distress. Maintaining good O2 saturations in the 90s on room air. He did receive hemodialysis yesterday with 2 L removed. White count 14.6. Hemoglobin 11.4. Platelets 309. Sodium 135. Potassium 4.4. Bicarb 25. BUN 39. Creatinine 4.2. Glucose 247. Procalcitonin negative at 0.21. He is currently on DuoNeb and elations, Solu-Medrol, antibiotics in the form of ceftriaxone and azithromycin. Patient was seen today on 09/24/2024, patient developed strokelike symptoms around 4 AM this morning and this was not witnessed by his , he developed a new onset left-sided weakness and left-sided facial droop with slurred speech, and difficulty swallowing. Code stroke was called, initial CT showed no evidence of acute intracranial process, MRI showed subacute CVA involving right middle cerebral artery predominantly right frontal lobe and insular cortex. Received aspirin rectally, as he could not take anything orally. Neurology was consulted, patient is supposed to have dialysis today. Pulmonary javier the patient is basically about the same. No further episodes of cough induced syncope. Patient was seen today on 09/25/2024, patient is now being followed by neurology for his acute CVA with left-sided weakness, patient remains slightly encephalopathic, continues to have left-sided weakness, neurology is recommending that he remains on aspirin, and recommending 2D echocardiogram with bubble study to rule out PFO and may need KARIHSMA. At any rate patient is now being followed by many consultants, in the meantime he is supposed to have physical therapy and Occupational Therapy. Patient apparently sustained acute ischemic stroke involving the right middle cerebral territory predominantly in the right frontal lobe and insular cortex. This is felt to be mostly embolic in nature. Family is at bedside, and apparently his neurological status has been discussed with him by the neurologist pulmonary javier no active pulmonary issues patient is not even coughing and does not seem to be short of breath. Objective - Vital Signs Vital signs: Vital Signs Temp 98.0 F 09/25/24 08:00 Pulse 82 09/25/24 12:30 Resp 18 09/25/24 08:00 BP 170/89 09/25/24 08:00 Pulse Ox 100 09/25/24 09:26 FiO2 Intake & Output 09/24/24 09/25/24 09/25/24 18:59 06:59 18:59 Intake Total 400 Output Total 4400 650 Balance -4000 -650 Weight 86.5 kg Intake: Hemodialysis 400 Output: Urine 650 Uretheral (Hu) 350 Hemodialysis 2400 Hemodialysis Net Amount 2000 Other: Voiding Method Toilet Toilet Urinal Urinal Urinal # Voids 0 - Exam GENERAL: Revealed a pleasant 79-year-old male seems to be encephalopathic, not in distress. HEAD: Atraumatic, normocephalic HEENT: Pupils are round and equally reacting to light. EOMI. No scleral icterus. No conjunctival pallor. No pharyngeal erythema. No thyromegaly. CARDIOVASCULAR: S1 and S2 present. No murmurs, rubs, or gallops. PULMONARY: Clear bilaterally no rhonchi no wheezes ABDOMEN: Soft, nontender, nondistended, normoactive bowel sounds. No palpable organomegaly. MUSCULOSKELETAL: No joint swelling or deformity. EXTREMITIES: No cyanosis, clubbing, or pedal edema. Left upper extremity AV fistula in place NEUROLOGICAL: Confused with left-sided weakness noted. SKIN: No rashes. - Labs CBC & Chem 7: 09/25/24 08:26 09/25/24 08:26 Labs: Abnormal Lab Results - Last 24 Hours (Table) 09/24/24 09/24/24 09/25/24 Range/Units 20:00 21:18 01:15 RBC (4.30-5.90) m/uL Hgb (13.0-17.5) gm/dL Hct (39.0-53.0) % Sodium (137-145) mmol/L Chloride (98-107) mmol/L BUN (9-20) mg/dL Creatinine (0.66-1.25) mg/dL Glucose (74-99) mg/dL POC Glucose (mg/dL) 194 H 196 H 175 H (70-110) mg/dL 09/25/24 09/25/24 09/25/24 Range/Units 06:10 08:26 08:26 RBC 3.70 L (4.30-5.90) m/uL Hgb 12.0 L (13.0-17.5) gm/dL Hct 35.1 L (39.0-53.0) % Sodium 134 L (137-145) mmol/L Chloride 94 L (98-107) mmol/L BUN 49 H (9-20) mg/dL Creatinine 4.27 H (0.66-1.25) mg/dL Glucose 101 H (74-99) mg/dL POC Glucose (mg/dL) 137 H (70-110) mg/dL 09/25/24 Range/Units 11:38 RBC (4.30-5.90) m/uL Hgb (13.0-17.5) gm/dL Hct (39.0-53.0) % Sodium (137-145) mmol/L Chloride (98-107) mmol/L BUN (9-20) mg/dL Creatinine (0.66-1.25) mg/dL Glucose (74-99) mg/dL POC Glucose (mg/dL) 113 H (70-110) mg/dL Microbiology - Last 24 Hours (Table) 09/21/24 16:23 Blood Culture - Preliminary Blood Assessment and Plan Assessment: Impression: Acute CVA involving right middle cerebral artery as noted on MRI with left-sided weakness, slurred speech, left facial droop, seen by neurology, neurology consultation has been reviewed Cough induced syncope, presently under control Bilateral pleural effusions/most likely secondary to chronic renal failure or diastolic congestive heart failure, patient had normal LV function based on his last echocardiogram Benign essential hypertension Dyslipidemia History of CVA Diabetes with diabetic peripheral neuropathy History of seizures? Patient is maintained on Keppra End-stage renal disease, on hemodialysis Recommendation: Continue present supportive care measures continue aspirin Continue PT and OT Cardiology to evaluate for possible echo with bubble study and/or KARISHMA Continue hemodialysis Continue empiric antibiotics although I do not believe the patient has ongoing infection, could consider checking procalcitonin Continue bronchodilators, patient had no previous history of COPD Will continue to follow Time with Patient: Less than 30
[2024-09-25 15:08] LABS: Glucose,Whole Blood 124 mg/dL (70-110)
[2024-09-25] MEDS: DILTIAZEM 125 MG in SODIUM CHLORIDE 0.9% 100 ML IV SCH (15:11)
[2024-09-25 16:38] LABS: Glucose,Whole Blood 143 mg/dL (70-110)
[2024-09-25 20:47] LABS: Glucose,Whole Blood 148 mg/dL (70-110)
--- NOTE | 2024-09-25 22:28 | P.PN ---
Subjective Progress Note Date: 09/25/24 Patient was seen for a follow-up. Patient's daughter and patient's are present today. He is doing much better. Patient is more conversational with spontaneous speech and less dysarthria. Please refer to examination below. Objective - Vital Signs Vital signs: Vital Signs Temp 98.8 F 09/25/24 16:00 Pulse 88 09/25/24 16:14 Resp 18 09/25/24 16:00 BP 166/69 09/25/24 16:00 Pulse Ox 100 09/25/24 16:00 FiO2 Intake & Output 09/24/24 09/25/24 09/25/24 18:59 06:59 18:59 Intake Total 400 Output Total 4400 650 Balance -4000 -650 Weight 86.5 kg Intake: Hemodialysis 400 Output: Urine 650 Uretheral (Hu) 350 Hemodialysis 2400 Hemodialysis Net Amount 2000 Other: Voiding Method Toilet Toilet Indwelling Catheter Urinal Urinal # Voids 0 - Exam Patient is very alert and awake, initiating conversation. No aphasia. Per family, his speech has further improved. Patient continues to have left facial weakness, central type. His visual calzada are difficult to assess. Patient states his vision is "same", probable at baseline. On muscle strength testing, the strength is normal in the right arm and right leg. On the left side, patient able to hold the left arm with mild drift. Likewise patient able to lift his left leg up with some drift with decreased endurance. Patient was able to give some resistance in the left arm and left leg against gravity. Sensations difficult to assess. - Labs CBC & Chem 7: 09/25/24 08:26 09/25/24 08:26 Labs: Abnormal Lab Results - Last 24 Hours (Table) 09/24/24 09/24/24 09/25/24 Range/Units 20:00 21:18 01:15 RBC (4.30-5.90) m/uL Hgb (13.0-17.5) gm/dL Hct (39.0-53.0) % Sodium (137-145) mmol/L Chloride (98-107) mmol/L BUN (9-20) mg/dL Creatinine (0.66-1.25) mg/dL Glucose (74-99) mg/dL POC Glucose (mg/dL) 194 H 196 H 175 H (70-110) mg/dL 09/25/24 09/25/24 09/25/24 Range/Units 06:10 08:26 08:26 RBC 3.70 L (4.30-5.90) m/uL Hgb 12.0 L (13.0-17.5) gm/dL Hct 35.1 L (39.0-53.0) % Sodium 134 L (137-145) mmol/L Chloride 94 L (98-107) mmol/L BUN 49 H (9-20) mg/dL Creatinine 4.27 H (0.66-1.25) mg/dL Glucose 101 H (74-99) mg/dL POC Glucose (mg/dL) 137 H (70-110) mg/dL 09/25/24 09/25/24 09/25/24 Range/Units 11:38 14:57 16:37 RBC (4.30-5.90) m/uL Hgb (13.0-17.5) gm/dL Hct (39.0-53.0) % Sodium (137-145) mmol/L Chloride (98-107) mmol/L BUN (9-20) mg/dL Creatinine (0.66-1.25) mg/dL Glucose (74-99) mg/dL POC Glucose (mg/dL) 113 H 124 H 143 H (70-110) mg/dL Microbiology - Last 24 Hours (Table) 09/21/24 16:23 Blood Culture - Preliminary Blood Assessment and Plan Assessment: * Acute ischemic stroke involving the right MCA territory predominantly in the right frontal lobe and insular cortex. Event appears embolic in nature. * New diagnosis of paroxysmal atrial fibrillation. 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 * Cognitive impairment * Diabetes * ESRD on hemodialysis * Hypertension * Hyperlipidemia Plan: * MRI of the brain without contrast revealed acute/subacute CVA involving the right MCA territory, predominantly in the right frontal lobe and insular cortex. Remote injuries of the left parietal lobe and left inferior temporal lobe with encephalomalacia. Nonspecific white matter changes, likely secondary to small vessel ischemic disease. I personally reviewed MRI agree with the findings. Also evidence of old encephalomalacia involving right frontal and parietal region. Also evidence of some hemosiderin deposition in the left parietal region. Discussed MRI findings with stroke neurologist Dr. Centeno * 2-D echo with bubble study to rule out PFO. Patient may need KARISHMA. * Cardiology input appreciated. Patient had loop recorder interrogation and patient was found to have paroxysmal atrial fibrillation. * Hold off anticoagulation for now because of moderate-sized stroke. Repeat CT head in the morning. If no hemorrhage, may consider starting anticoagulation. However if the stroke is large, then may have to hold anticoagulation for 7 to 10 days. * CTA head and neck showed: No evidence of large vessel occlusion. Negative CTA of the neck. * Fasting a.m. lipid panel cholesterol 190, LDL 79, HDL 83 and triglycerides 135 on 08/14/2023. Will repeat. Continue Lipitor 80 mg. * Hemoglobin A1c 7.3 * Permissive hypertension for next 24-48 hours * Continue aspirin 300 mg rectally. * Continue Keppra 500 mg twice daily Neuro checks every 2 hours. * Telemetry monitoring rule out any arrhythmia * PT, OT, speech therapy * DVT prophylaxis: Heparin 5000 units subcu every 8 hours * Dr. Jf Hall to resume neurology service in the morning.
[2024-09-26 02:12] LABS: Glucose,Whole Blood 177 mg/dL (70-110)
[2024-09-26 06:07] LABS: Glucose,Whole Blood 203 mg/dL (70-110)
[2024-09-26 09:14] LABS: Basophils % (A) 0 %; Eosinophils # (A) 0.1 k/uL (0-0.7); Eosinophils % (A) 1 %; HCT 33.3 % (39.0-53.0); HGB 11.5 gm/dL (13.0-17.5); Lymphocytes # (A) 1.5 k/uL (1.0-4.8); Lymphocytes % (A) 15 %; MCH 32.9 pg (25.0-35.0); MCHC 34.4 g/dL (31.0-37.0); MCV 95.4 fL (80.0-100.0); Mean Platelet Volume 7.2; Monocytes % (A) 10 %; Neutrophils # (A) 7.4 k/uL (1.3-7.7); Neutrophils % (A) 73 %; Platelet Count 278 k/uL (150-450); RBC 3.49 m/uL (4.30-5.90); RDW 13.4 % (11.5-15.5); WBC 10.2 k/uL (3.8-10.6)
--- NOTE | 2024-09-26 09:26 | CT ---
EXAMINATION TYPE: CT brain wo con DATE OF EXAM: 09/26/2024 8:58 AM COMPARISON: 09/11/2024 , CT 09/24/2024 MRI 09/24/2024 CLINICAL INDICATION: Male, 79 years old with history of Follow-up CVA, rule out hemorrhage, AMS TECHNIQUE: CT of the brain is performed utilizing 3 mm thick sections through the posterior fossa and 3 mm thick sections through the remaining calvarium. Study is performed within 24 hours of arrival to the hospital. Contrast used: mL of , (none if empty) CT DLP: 1139.1 mGycm, Automated exposure control for dose reduction was used. FINDINGS: There is a 0.4 cm punctate area of increased density within the prior right parietal infarct, image 3 2 series 2032, could be a small petechial hemorrhage. No large hemorrhage is evident. No mass lesion is evident. There is a right parietal infarct. This was present on the MRI. Old left watershed infarct is present . Subcortical old ischemic changes in the right occipital lobe. Ventricles and sulci are prominent for the patient age. There is some effacement of the right pariet al sulci. No midline shift is evident. No temporal horn dilatation. No significant effacement of the ventricles or the quadrigeminal plate or ambient cistern. Paranasal sinuses and mastoid air cells within the [id number] are clear. IMPRESSION: 1. 0.4 cm petechial hemorrhage within the left parietal infarct may be present. Report was called alyssa Lang the patient's nurse by Dr. Castillo by telephone at the time of interpretation. 2. Increasing edema in the right parietal infarct as effacement of the sulci. No midline shift or sig nificant ventricle compression. 3. Old occipital watershed infarcts bilaterally [facility], , 09/26/2024 9:24 AM
[2024-09-26 09:38] LABS: ALT 24 U/L (4-49); AST 32 U/L (17-59); African American GFR (CKD) 11 (>60 ml/min/1.73 sqM); Albumin 3.6 g/dL (3.5-5.0); Alkaline Phosphatase 81 U/L (38-126); Anion Gap 12 mmol/L; Blood Urea Nitrogen 61 mg/dL (9-20); Calcium 8.4 mg/dL (8.4-10.2); Carbon Dioxide 27 mmol/L (22-30); Chloride 97 mmol/L (98-107); Glucose 140 mg/dL (74-99); Non-African American GFR(CKD) 10 (>60 ml/min/1.73 sqM); Potassium 3.9 mmol/L (3.5-5.1); Sodium 136 mmol/L (137-145); Total Bilirubin 0.3 mg/dL (0.2-1.3); Total Protein 6.1 g/dL (6.3-8.2)
[2024-09-26 11:32] LABS: Glucose,Whole Blood 136 mg/dL (70-110)
--- NOTE | 2024-09-26 12:43 | P.PN ---
Subjective Progress Note Date: 09/26/24 This is a 79-year-old male with a past medical history significant for coronary artery disease, hypertension, hyperlipidemia, CVA, diabetes, and chronic kidney disease. Patient follows in the office with Dr. Fischer. We have been asked to see the patient in consultation for CVA and loop recorder interrogation. Patient examined at the bedside. Patient was hospitalized earlier this month for cough induced syncope. Patient was discharged home and presented back to the hospital with similar symptoms. While in the hospital he developed left-sided weakness and was found to be positive for CVA. Patient currently denies chest pain or pressure. Denies shortness of breath. The patient was previously prescribed Eliquis for unknown reason however he was not currently taking this. Family has denied any history of atrial fibrillation or PE/DVT. Patient is currently maintaining sinus mechanism. Loop recorder interrogation performed revealing episodes of atrial fibrillation. DIAGNOSTICS: - EKG reveals sinus mechanism with no signs of acute ischemia - Chest xray hazy interstitial markings seen bilaterally may relate to infectious/inflammatory process. - Laboratory data: WBC 10.2. Hemoglobin 12.0. Platelet count 298. Sodium 134. Potassium 4.1. BUN 49. Creatinine 4.27. - Current home cardiac medications include aspirin 162.5 mg daily, Lipitor 20 mg at night, Imdur 120 mg daily, midodrine 10 mg 3 times a day as needed, Procardia 60 mg twice a day, Demadex 20 mg daily, carvedilol 12.5 mg twice a day - Most recent echocardiogram obtained in August 2024 revealed ejection fraction 55 to 60% with no significant valvular disease - Cardiac catheterization history: 2008 revealing approximately 40%, mid LAD 50%, diagonal 50%, circumflex 50%, and nondominant RCA with no significant stenosis -Patient underwent Lexiscan stress test in March 2024 which was negative for ischemia 09/26/2024 Was seen and examined resting comfortably in bed. [place] any chest discomfort or shortness of breath. Continues to have issues with speech and swallowing. Facial droop noted. Awaiting swallow eval. Anticoagulation has not been initiated at this point. CT scan done this morning showed a 0.4 cm petechial hemorrhage within the left parietal infarct may be present, increasing edema in the right parietal infarct as effacement of the sulci, no midline shift or significant ventricle compression, old occipital watershed infarcts bilaterally. We are awaiting input from neurology in regards to anticoagulation. PHYSICAL EXAM: VITAL SIGNS: Reviewed. GENERAL: Well-developed in no acute distress. HEENT: Head is normocephalic. Pupils are equal, round. Sclerae anicteric. Mucous membranes of the mouth are moist. Neck supple. No JVD or thyromegaly LUNGS: Respirations even and unlabored. Lungs essentially clear to auscultation bilaterally. HEART: Regular rate and rhythm. S1 and S2 heard. Systolic murmur noted ABDOMEN: Soft. Nondistended. Nontender. EXTREMITIES: Left-sided weakness. Normal range of motion. No clubbing or cyanosis. Peripheral pulses intact. No lower extremity edema NEUROLOGIC: Awake and alert. ASSESSMENT: Acute/subacute CVA involving right MCA territory New onset atrial fibrillation, found on loop recorder interrogation, maintaining sinus mechanism Recent diagnosis and hospitalization for tussive syncope Nonobstructive CAD, per cath 2008 History of loop recorder implantation, [employer], 2020 Chronic kidney disease on hemodialysis Hypertension Hyperlipidemia History of CVA Diabetes PLAN: Continue telemetry monitoring Waiting input from neurology regards to anticoagulation. Patient currently NPO and awaiting speech eval. 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 Patient was seen and examined. Objective - Vital Signs Vital signs: Vital Signs Temp 98.9 F 09/26/24 08:00 Pulse 77 09/26/24 12:00 Resp 16 09/26/24 08:00 BP 168/65 09/26/24 12:00 Pulse Ox 96 09/26/24 12:00 FiO2 Intake & Output 09/25/24 09/26/24 09/26/24 18:59 06:59 18:59 Output Total 850 Balance -850 Weight 88 kg Output: Urine 850 Other: Voiding Method Indwelling Catheter Indwelling Catheter Indwelling Catheter # Bowel Movements 2 - Labs CBC & Chem 7: 09/26/24 08:08 09/26/24 08:08 Labs: Abnormal Lab Results - Last 24 Hours (Table) 09/25/24 09/25/24 09/25/24 Range/Units 14:57 16:37 20:46 RBC (4.30-5.90) m/uL Hgb (13.0-17.5) gm/dL Hct (39.0-53.0) % Sodium (137-145) mmol/L Chloride (98-107) mmol/L BUN (9-20) mg/dL Creatinine (0.66-1.25) mg/dL Glucose (74-99) mg/dL POC Glucose (mg/dL) 124 H 143 H 148 H (70-110) mg/dL Total Protein (6.3-8.2) g/dL 09/26/24 09/26/24 09/26/24 Range/Units 01:59 06:05 08:08 RBC 3.49 L (4.30-5.90) m/uL Hgb 11.5 L (13.0-17.5) gm/dL Hct 33.3 L (39.0-53.0) % Sodium (137-145) mmol/L Chloride (98-107) mmol/L BUN (9-20) mg/dL Creatinine (0.66-1.25) mg/dL Glucose (74-99) mg/dL POC Glucose (mg/dL) 177 H 203 H (70-110) mg/dL Total Protein (6.3-8.2) g/dL 09/26/24 09/26/24 Range/Units 08:08 11:30 RBC (4.30-5.90) m/uL Hgb (13.0-17.5) gm/dL Hct (39.0-53.0) % Sodium 136 L (137-145) mmol/L Chloride 97 L (98-107) mmol/L BUN 61 H (9-20) mg/dL Creatinine 5.22 H (0.66-1.25) mg/dL Glucose 140 H (74-99) mg/dL POC Glucose (mg/dL) 136 H (70-110) mg/dL Total Protein 6.1 L (6.3-8.2) g/dL
--- NOTE | 2024-09-26 12:48 | P.PN ---
Subjective Progress Note Date: 09/26/24 Patient is seen in follow-up for end-stage renal disease. He is maintained on hemodialysis on Thursday schedule. Feeling better overall today. Vital signs are stable. General: No acute distress. HEENT: Head exam is unremarkable. LUNGS: No audible rhonchi or wheezes. HEART: Rate and Rhythm are regular. ABDOMEN: Nontender. EXTREMITITES: No edema. Objective - Vital Signs Vital signs: Vital Signs Temp 98.9 F 09/26/24 08:00 Pulse 76 09/26/24 09:16 Resp 16 09/26/24 08:00 BP 186/51 09/26/24 08:00 Pulse Ox 94 L 09/26/24 09:07 FiO2 Intake & Output 09/25/24 09/26/24 09/26/24 18:59 06:59 18:59 Output Total 850 Balance -850 Weight 88 kg Output: Urine 850 Other: Voiding Method Indwelling Catheter Indwelling Catheter Indwelling Catheter # Bowel Movements 2 - Labs CBC & Chem 7: 09/26/24 08:08 09/26/24 08:08 Labs: Abnormal Lab Results - Last 24 Hours (Table) 09/25/24 09/25/24 09/25/24 Range/Units 11:38 14:57 16:37 RBC (4.30-5.90) m/uL Hgb (13.0-17.5) gm/dL Hct (39.0-53.0) % Sodium (137-145) mmol/L Chloride (98-107) mmol/L BUN (9-20) mg/dL Creatinine (0.66-1.25) mg/dL Glucose (74-99) mg/dL POC Glucose (mg/dL) 113 H 124 H 143 H (70-110) mg/dL Total Protein (6.3-8.2) g/dL 09/25/24 09/26/24 09/26/24 Range/Units 20:46 01:59 06:05 RBC (4.30-5.90) m/uL Hgb (13.0-17.5) gm/dL Hct (39.0-53.0) % Sodium (137-145) mmol/L Chloride (98-107) mmol/L BUN (9-20) mg/dL Creatinine (0.66-1.25) mg/dL Glucose (74-99) mg/dL POC Glucose (mg/dL) 148 H 177 H 203 H (70-110) mg/dL Total Protein (6.3-8.2) g/dL 09/26/24 09/26/24 09/26/24 Range/Units 08:08 08:08 11:30 RBC 3.49 L (4.30-5.90) m/uL Hgb 11.5 L (13.0-17.5) gm/dL Hct 33.3 L (39.0-53.0) % Sodium 136 L (137-145) mmol/L Chloride 97 L (98-107) mmol/L BUN 61 H (9-20) mg/dL Creatinine 5.22 H (0.66-1.25) mg/dL Glucose 140 H (74-99) mg/dL POC Glucose (mg/dL) 136 H (70-110) mg/dL Total Protein 6.1 L (6.3-8.2) g/dL Assessment and Plan Assessment: 1. End-stage renal disease maintained on hemodialysis on Thursday schedule. 2. Pneumonia maintained on antibiotics. 3. Diabetes mellitus. 4. Hypertension with chronic kidney disease. Exacerbated by steroids. 5. Acute/Subacute CVA- neurology following. Plan: Hemodialysis TTS schedule Blood cultures negative so far
--- NOTE | 2024-09-26 14:47 | P.PN ---
Subjective Progress Note Date: 09/26/24 Principal diagnosis: Hospital course: Patient is a 79-year-old male with ESRD, presenting for syncope induced by cough. Patient is poor historian. He was recently admitted for similar symptoms on September 12 and subsequently discharged with doxycycline for treatment of tracheobronchitis for mucous plugging. Since this time patient has had persistent symptoms with sputum production. Denying fever, chills, shortness of breath, chest pain, palpitations at this time. Labs completed in emergency room significant for WBC 6.7, hemoglobin 10.0, sodium 132, potassium 5.0, bicarb 20, BUN 43, creatinine 5.31, glucose 260, A1c 7.3, ALP 146, proBNP 2840, viral respiratory panel is negative. EKG done in the ER independently interpreted showed sinus rhythm heart rate of 60, no ST segment elevation or depression seen, no T-wave inversions seen. Chest x-ray done independently interpreted in the ER showed hazy interstitial markings bilaterally 09/23/2024 Patient seen and examined at bedside. No acute events overnight. Will discontinue antibiotics and steroids. Today's labs significant for WBC 14.6, BUN 38, creatinine 4.2, glucose ranging from 416-209, procalcitonin negative, blood cultures pending with no growth thus far. 09/24/2024 Patient seen and examined at bedside. Overnight patient began having strokelike symptoms at around 4 AM as witnessed by in the room with new onset left- sided weakness, left-sided facial droop and slurred speech with difficulty swallowing. Code stroke was called. Initial CT head with no evidence of acute intracranial process, later MRI of brain with subacute/acute CVA involving right MCA predominantly right frontal lobe and insular cortex. Patient given 300 mg of aspirin rectally as could not tolerate oral swallowing. Neurology consulted. Dialysis today. Today's labs WBC 12.0, hemoglobin 11.3, sodium 133, BUN 78, c reatinine 5.24, glucose 166. 09/25. Patient seen and examined. Patient is moving his left upper extremity more than yesterday, also lifting his left lower extremity. Family thinks that patient has improved compared to yesterday 09/26/24: Patient evaluated bedside today. Patient's family mentioned that his strength is better but currently the patient is very tired as he was up all night coughing. Labs show hemoglobin 11.5, sodium 136, BUN 61, creatinine 5.22. Brain CT shows 0.4 cm petechial hemorrhage within the left parietal infarct may be present, increasing edema in the right parietal infarct as effacement of the sulk I with no midline shift or significant ventricle compression, old occipital watershed infarcts bilaterally. Review of systems: Pertinent positives and negatives as discussed in HPI, a complete review of systems was performed and all other systems are negative. Vitals: Signs Reviewed Physical examination: Vital signs reviewed General: nontoxic, no distress, appears at stated age Derm: warm, dry, intact Head: atraumatic, normocephalic, symmetric Eyes: Eye reacting to light, bilateral right gaze Mouth: no lip lesion, mucus membranes moist Cardiovascular: S1 S2 reg, no murmur Lungs: CTA bilateral, no rhonchi, no rales, no accessory muscle use Abdominal: soft, non-tender to palpataion Extremities: No cyanosis, clubbing, or pedal edema. Neuro: Mild left-sided facial droop, left upper extremity strength 3/5, left lower extremity 3/5 at this time. 5/5 right side upper and lower extremities Psych: well appearing, appropriate affect Assessment/Plan: 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 # New onset paroxysmal atrial fibrillation currently in NSR MRI brain with subacute CVA involving right MCA predominantly right frontal lobe and insular cortex Brain CT shows 0.4 cm petechial hemorrhage within the left parietal infarct may be present, increasing edema in right parietal infarct as effacement of the sulci with no midline shift or significant ventricle compression, old occipital watershed infarcts bilaterally Continue aspirin 300 mg rectally daily, Keppra 500 mg twice daily, Lipitor 80 mg Speech consulted Loop recorder interrogation showed new onset atrial fibrillation Continue IV Cardizem Cardiology following recommending Eliquis if patient is able to tolerate p.o. meds Neurology following, recommending repeating CT head tomorrow if does not show any worsening of stroke, started on heparin # Respiratory distress #Cough induced syncope CT chest findings of moderate bilateral pleural effusions with associated atelectasis, no focal consolidation Continue bronchodilators Encourage incentive spirometry Pulmonology following #ESRD Continue lisinopril per nephrology Hemodialysis Thursday schedule #Diabetes mellitus Low-dose insulin, ACHS protocol Chronic Medical Conditions #Hypertension hold for now #Peripheral neuropathyresume home medication #Hx of CVAas mentioned above F: None E: Replete as required N: Consistent carbohydrate diet DVT prophylaxis: Heparin 5000 units SQ every 12 hours Attestation I have seen and examined this patient with my resident , discussed the same with the resident/ELISE, and agree with the dictator's assessment and plan as written Dr. Emmanuel medina Objective - Vital Signs Vital signs: Vital Signs Temp 98.8 F 09/26/24 03:16 Pulse 75 09/26/24 03:16 Resp 17 09/26/24 03:16 BP 168/77 09/26/24 03:16 Pulse Ox 96 09/26/24 03:16 FiO2 Intake & Output 09/25/24 09/26/24 09/26/24 18:59 06:59 18:59 Output Total 850 Balance -850 Weight 88 kg Output: Urine 850 Other: Voiding Method Indwelling Catheter Indwelling Catheter # Bowel Movements 2 - Labs CBC & Chem 7: 09/27/24 07:13 09/26/24 08:08 Labs: Abnormal Lab Results - Last 24 Hours (Table) 09/25/24 09/25/24 09/25/24 Range/Units 08:26 08:26 11:38 RBC 3.70 L (4.30-5.90) m/uL Hgb 12.0 L (13.0-17.5) gm/dL Hct 35.1 L (39.0-53.0) % Sodium 134 L (137-145) mmol/L Chloride 94 L (98-107) mmol/L BUN 49 H (9-20) mg/dL Creatinine 4.27 H (0.66-1.25) mg/dL Glucose 101 H (74-99) mg/dL POC Glucose (mg/dL) 113 H (70-110) mg/dL 09/25/24 09/25/24 09/25/24 Range/Units 14:57 16:37 20:46 RBC (4.30-5.90) m/uL Hgb (13.0-17.5) gm/dL Hct (39.0-53.0) % Sodium (137-145) mmol/L Chloride (98-107) mmol/L BUN (9-20) mg/dL Creatinine (0.66-1.25) mg/dL Glucose (74-99) mg/dL POC Glucose (mg/dL) 124 H 143 H 148 H (70-110) mg/dL 09/26/24 09/26/24 Range/Units 01:59 06:05 RBC (4.30-5.90) m/uL Hgb (13.0-17.5) gm/dL Hct (39.0-53.0) % Sodium (137-145) mmol/L Chloride (98-107) mmol/L BUN (9-20) mg/dL Creatinine (0.66-1.25) mg/dL Glucose (74-99) mg/dL POC Glucose (mg/dL) 177 H 203 H (70-110) mg/dL
--- NOTE | 2024-09-26 15:44 | P.PN ---
Subjective Progress Note Date: 09/26/24 I am seeing the patient for the first time during this admission. Please refer to Dr. Bustillo's note for further details. His acute right MCA stroke the patient has clearly left-sided weakness, left facial droop, some difficulty swallowing and some dysarthria. Patient has new diagnosis of paroxysmal atrial fibrillation and Dr. Bustillo ordered a repeat CT of the head which showed some petechial hemorrhage within the left parietal possibly. Objective - Vital Signs Vital signs: Vital Signs Temp 98.9 F 09/26/24 08:00 Pulse 77 09/26/24 12:00 Resp 16 09/26/24 08:00 BP 168/65 09/26/24 12:00 Pulse Ox 96 09/26/24 12:00 FiO2 Intake & Output 09/25/24 09/26/24 09/26/24 18:59 06:59 18:59 Intake Total 439.833 Output Total 850 300 Balance -850 139.833 Weight 88 kg Intake: Intake, IV Titration 439.833 Amount Dextrose 5% in Water 1, 300 000 ml @ 50 mls/hr IV . Q20H [facility] Rx#:[id number] Diltiazem 125 mg In 139.833 Sodium Chloride 0.9% 100 ml @ 5 MG/HR 5 mls/hr IV .Q24H [facility] Rx#:[id number] Output: Urine 850 300 Other: Voiding Method Indwelling Catheter Indwelling Catheter Indwelling Catheter # Bowel Movements 2 - Exam General: Lying in bed and is not in acute distress. Neuro: Somewhat limited because of his cooperation. Patient is mildly drowsy but is awake both voice. He is oriented to self. His was translating from Urdu to Setswana to help with the physical examination. He followed few simple commands such as showing a thumbs up and moving extremities. Language is limited Pupils are round 3 mm reactive to light. Patient has left facial weakness. Has dysarthria. Motor is the strength as he is moving the right upper and lower more than the left. - Labs CBC & Chem 7: 09/26/24 08:08 09/26/24 08:08 Labs: Abnormal Lab Results - Last 24 Hours (Table) 09/25/24 09/25/24 09/26/24 Range/Units 16:37 20:46 01:59 RBC (4.30-5.90) m/uL Hgb (13.0-17.5) gm/dL Hct (39.0-53.0) % Sodium (137-145) mmol/L Chloride (98-107) mmol/L BUN (9-20) mg/dL Creatinine (0.66-1.25) mg/dL Glucose (74-99) mg/dL POC Glucose (mg/dL) 143 H 148 H 177 H (70-110) mg/dL Total Protein (6.3-8.2) g/dL 09/26/24 09/26/24 09/26/24 Range/Units 06:05 08:08 08:08 RBC 3.49 L (4.30-5.90) m/uL Hgb 11.5 L (13.0-17.5) gm/dL Hct 33.3 L (39.0-53.0) % Sodium 136 L (137-145) mmol/L Chloride 97 L (98-107) mmol/L BUN 61 H (9-20) mg/dL Creatinine 5.22 H (0.66-1.25) mg/dL Glucose 140 H (74-99) mg/dL POC Glucose (mg/dL) 203 H (70-110) mg/dL Total Protein 6.1 L (6.3-8.2) g/dL 09/26/24 Range/Units 11:30 RBC (4.30-5.90) m/uL Hgb (13.0-17.5) gm/dL Hct (39.0-53.0) % Sodium (137-145) mmol/L Chloride (98-107) mmol/L BUN (9-20) mg/dL Creatinine (0.66-1.25) mg/dL Glucose (74-99) mg/dL POC Glucose (mg/dL) 136 H (70-110) mg/dL Total Protein (6.3-8.2) g/dL Assessment and Plan Assessment: * Acute ischemic stroke involving the right MCA territory predominantly in the right frontal lobe and insular cortex. Event appears embolic in nature. * Questionable small petechial hemorrhage over the right fronto/parietal on the repeat CT of the head today. She reported on the left but reading radiologist placed the area on the right is seems more right frontal parietal and there is truly hemorrhage versus surround normal hernandez/white matter * New diagnosis of paroxysmal atrial fibrillation. 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 * Cognitive impairment * Diabetes * ESRD on hemodialysis * Hypertension * Hyperlipidemia Plan: * MRI of the brain without contrast revealed acute/subacute CVA involving the right MCA territory, predominantly in the right frontal lobe and insular cortex. Remote injuries of the left parietal lobe and left inferior temporal lobe with encephalomalacia. Nonspecific white matter changes, likely seconda ry to small vessel ischemic disease. I personally reviewed MRI agree with the findings. Also evidence of old encephalomalacia involving right frontal and parietal region. Also evidence of some hemosiderin deposition in the left parietal region. Discussed MRI findings with stroke neurologist Dr. Centeno * 2-D echo with bubble study to rule out PFO. Per Dr. Bustillo, patient may need KARISHMA. * Cardiology input appreciated. Patient had loop recorder interrogation and patient was found to have paroxysmal atrial fibrillation. * Hold off anticoagulation for now because of moderate-sized stroke. As well as unsteady CT of the head there is questionable petechial hemorrhage over the right frontal parietal. Will get a repeat CT of the head tomorrow. * CTA head and neck showed: No evidence of large vessel occlusion. Negative CTA of the neck. * Fasting a.m. lipid panel cholesterol 190, LDL 79, HDL 83 and triglycerides 135 on 08/14/2023. Will repeat. Continue Lipitor 80 mg. * Hemoglobin A1c 7.3 * Permissive hypertension for next 24 hours * Continue aspirin 300 mg rectally. Hold for today and will get repeat CT head tomorrow. * Continue Keppra 500 mg twice daily Neuro checks every 2 hours. * Telemetry monitoring rule out any arrhythmia * PT, OT, speech therapy * DVT prophylaxis: Heparin 5000 units subcu every 8 hours. Hold for today. The plan is discussed with patient, his and family members and primary attending. Time with Patient: Less than 30
--- NOTE | 2024-09-26 15:49 | P.PN ---
Subjective Progress Note Date: 09/26/24 This is a 79-year-old male with history of end-stage renal disease, on hemodialysis Thursday and Thursday the patient himself is a very poor historian, most of the information obtained was from his daughter at bedside. The last couple of weeks, patient has been coughing and at times passing out, he had almost a dozen episodes of cough induced syncope. And never smoked, he has no history of COPD, his chest x-ray and CT of the chest done on this admission showed moderate bilateral pleural effusions with associated atelectasis. Chest x-ray showed mild interstitial prominence. Patient had his dialysis today and has CT of the chest done after dialysis clearly showed evidence of moderate-siz ed bilateral pleural effusions not clearly appreciated on the chest x-ray. Labs today showed negative screening for influenza A, influenza B, RSV and COVID-19. CBC was noted to be unremarkable. Hemoglobin is a bit low at 10 basic metabolic profile is normal BUN is 43 creatinine 5.31, BNP level is 2840. After reviewing the patient chart, apparently the patient was recently in the hospital from and he was discharged on diagnosed as having tracheobronchitis, pulmonary was not consulted on his last admission. However patient was discharged home on doxycycline at 100 mg p.o. twice daily. That did not seem to make any difference on his cough and did not make any difference on his cough induced syncope. Echocardiogram on his last admission showed no evidence of LV dysfunction, no evidence of significant valvular heart disease and there was no evidence of pulmonary hypertension. His ejection fraction was 55 to 60% The patient is seen today September 23, 2024 in follow-up on the regular medical floor. He is currently sitting up at the bedside having breakfast. Awake and alert in no acute distress. Maintaining good O2 saturations in the 90s on room air. He did receive hemodialysis yesterday with 2 L removed. White count 14.6. Hemoglobin 11.4. Platelets 309. Sodium 135. Potassium 4.4. Bicarb 25. BUN 39. Creatinine 4.2. Glucose 247. Procalcitonin negative at 0.21. He is currently on DuoNeb and elations, Solu-Medrol, antibiotics in the form of ceftri axone and azithromycin. The patient is seen today September 26, 2024 in follow-up on the selective care unit. He is currently resting in bed. Maintaining O2 saturations in the 90s on room air. Has been afebrile. Hemodynamically stable. Remains with a left- sided arm and leg drift. Follow-up CT scan of the brain revealed a 0.4 cm petechial hemorrhage within the left parietal infarct. Increasing edema in the right parietal infarct has effacement of the Clint. No midline shift or significant ventricle compression. Old occipital watershed infarcts bilaterally. Neurology is following closely. White count 10.2. Hemoglobin 11.5. Platelets 278. Sodium 136. Potassium 3.9. Bicarb 27. BUN 61. Creatinine 5.22. Glucose 140. He remains on a Cardizem drip at 5 mg/h. Heparin placed on hold. Continued on Keppra. Objective - Vital Signs Vital signs: Vital Signs Temp 98.9 F 09/26/24 08:00 Pulse 77 09/26/24 12:00 Resp 16 09/26/24 08:00 BP 168/65 09/26/24 12:00 Pulse Ox 96 09/26/24 12:00 FiO2 Intake & Output 09/25/24 09/26/24 09/26/24 18:59 06:59 18:59 Intake Total 439.833 Output Total 850 300 Balance -850 139.833 Weight 88 kg Intake: Intake, IV Titration 439.833 Amount Dextrose 5% in Water 1, 300 000 ml @ 50 mls/hr IV . Q20H [facility] Rx#:[id number] Diltiazem 125 mg In 139.833 Sodium Chloride 0.9% 100 ml @ 5 MG/HR 5 mls/hr IV .Q24H [facility] Rx#:[id number] Output: Urine 850 300 Other: Voiding Method Indwelling Catheter Indwelling Catheter Indwelling Catheter # Bowel Movements 2 - Exam GENERAL EXAM: Alert, weak 79-year-old male, on room air, in no apparent distress. HEAD: Normocephalic. EYES: Normal reaction of pupils, equal size. NOSE: Clear with pink turbinates. THROAT: No erythema or exudates. NECK: No masses, no JVD. CHEST: No chest wall deformity. LUNGS: Equal air entry with crackles in the posterior bases. CVS: S1 and S2 normal with no audible murmur, irregular rhythm. ABDOMEN: No hepatosplenomegaly, normal bowel sounds, no guarding or rigidity. SPINE: No scoliosis or deformity SKIN: No rashes CENTRAL NERVOUS SYSTEM: Remains with a left-sided arm and leg drift, weakness, tone is normal in all 4 extremities. EXTREMITIES: There is no peripheral edema. No clubbing, no cyanosis. Peripheral pulses are intact. - Labs CBC & Chem 7: 09/26/24 08:08 09/26/24 08:08 Labs: Abnormal Lab Results - Last 24 Hours (Table) 09/25/24 09/25/24 09/26/24 Range/Units 16:37 20:46 01:59 RBC (4.30-5.90) m/uL Hgb (13.0-17.5) gm/dL Hct (39.0-53.0) % Sodium (137-145) mmol/L Chloride (98-107) mmol/L BUN (9-20) mg/dL Creatinine (0.66-1.25) mg/dL Glucose (74-99) mg/dL POC Glucose (mg/dL) 143 H 148 H 177 H (70-110) mg/dL Total Protein (6.3-8.2) g/dL 09/26/24 09/26/24 09/26/24 Range/Units 06:05 08:08 08:08 RBC 3.49 L (4.30-5.90) m/uL Hgb 11.5 L (13.0-17.5) gm/dL Hct 33.3 L (39.0-53.0) % Sodium 136 L (137-145) mmol/L Chloride 97 L (98-107) mmol/L BUN 61 H (9-20) mg/dL Creatinine 5.22 H (0.66-1.25) mg/dL Glucose 140 H (74-99) mg/dL POC Glucose (mg/dL) 203 H (70-110) mg/dL Total Protein 6.1 L (6.3-8.2) g/dL 09/26/24 Range/Units 11:30 RBC (4.30-5.90) m/uL Hgb (13.0-17.5) gm/dL Hct (39.0-53.0) % Sodium (137-145) mmol/L Chloride (98-107) mmol/L BUN (9-20) mg/dL Creatinine (0.66-1.25) mg/dL Glucose (74-99) mg/dL POC Glucose (mg/dL) 136 H (70-110) mg/dL Total Protein (6.3-8.2) g/dL Assessment and Plan Assessment: Ischemic stroke involving the right MCA territory predominantly on the right frontal lobe and insular cortex. Follow-up CT scan today revealed questionable petechial hemorrhage over the right frontal parietal. Plan is for repeat CT scan tomorrow. Aspirin and heparin on hold Cough induced syncope Bilateral pleural effusions/most likely secondary to chronic renal failure or diastolic congestive heart failure, patient had normal LV function based on his last echocardiogram Benign essential hypertension Dyslipidemia History of CVA Diabetes with diabetic peripheral neuropathy History of seizures. Patient is maintained on Kera End-stage renal disease, on hemodialysis Thursday schedule Plan: The patient was seen and evaluated CT scan of the brain, labs and medications reviewed Plan is for repeat CT scan of the brain tomorrow Aspirin and heparin on hold Neurology following closely Stable and on room air Continue bronchodilators I have personally seen and examined the patient, performed the documentation and the assessment and plan as written. Number of minutes spent on the visit: 10 Dictation was produced using [employer] dictation software. Please excuse any grammatical, word or spelling errors.
[2024-09-26 16:54] LABS: Glucose,Whole Blood 212 mg/dL (70-110)
[2024-09-26 20:25] LABS: Glucose,Whole Blood 164 mg/dL (70-110)
[2024-09-26] MEDS: MORPHINE SULFATE 2 MG/ML SYRINGE IVP STA (22:19)
--- NOTE | 2024-09-27 02:38 | EEG ---
ELECTROENCEPHALOGRAM REPORT CLINICAL HISTORY: This is a 79-year-old gentleman with reported episodes of coughing and nearly passing out. The video EEG is obtained to evaluate for seizure epileptiform activity. RELEVANT MEDICATIONS: Keppra and Cymbalta. EEG TYPE: This is a routine 21 channel EEG with video using the 10/20 electrode placement system. DESCRIPTION: Wakefulness and drowsiness are obtained. During awake state, the background consists of low voltage of 6. 5 to 7.5 Hz activity. There was no physiological stage 2 sleep architecture. There is no focal slowing. Interictal and ictal is none. ACTIVATION PROCEDURE: Photic stimulation did not evoke a posterior driving response. There is no abnormality during the photic stimulation. Hyperventilation is not performed. CLINICAL INTERPRETATION: This is an abnormal routine EEG. The background slowing is suggestive of mild encephalopathy. There is no focal slowing, epileptiform discharge, or seizure on the EEG. Clinical correlation is recommended. LAMIN / ANASTASIA: [id number] / MTDD
[2024-09-27 06:17] LABS: Glucose,Whole Blood 87 mg/dL (70-110)
[2024-09-27 08:28] LABS: HCT 31.1 % (39.0-53.0); HGB 10.6 gm/dL (13.0-17.5); MCH 32.4 pg (25.0-35.0); MCHC 34.1 g/dL (31.0-37.0); MCV 95.2 fL (80.0-100.0); Mean Platelet Volume 7.6; Platelet Count 267 k/uL (150-450); RBC 3.27 m/uL (4.30-5.90); RDW 13.1 % (11.5-15.5); WBC 10.6 k/uL (3.8-10.6)
[2024-09-27 08:44] LABS: African American GFR (CKD) 10 (>60 ml/min/1.73 sqM); Anion Gap 9 mmol/L; Blood Urea Nitrogen 64 mg/dL (9-20); Calcium 8.1 mg/dL (8.4-10.2); Carbon Dioxide 27 mmol/L (22-30); Chloride 99 mmol/L (98-107); Glucose 78 mg/dL (74-99); Non-African American GFR(CKD) 9 (>60 ml/min/1.73 sqM); Potassium 3.6 mmol/L (3.5-5.1); Sodium 135 mmol/L (137-145)
[2024-09-27 11:26] LABS: Glucose,Whole Blood 77 mg/dL (70-110)
--- NOTE | 2024-09-27 11:27 | P.PN ---
Subjective Progress Note Date: 09/27/24 This is a 79-year-old male with a past medical history significant for coronary artery disease, hypertension, hyperlipidemia, CVA, diabetes, and chronic kidney disease. Patient follows in the office with Dr. Fischer. We have been asked to see the patient in consultation for CVA and loop recorder interrogation. Patient examined at the bedside. Patient was hospitalized earlier this month for cough induced syncope. Patient was discharged home and presented back to the hospital with similar symptoms. While in the hospital he developed left-sided weakness and was found to be positive for CVA. Patient currently denies chest pain or pressure. Denies shortness of breath. The patient was previously prescribed Eliquis for unknown reason however he was not currently taking this. Family has denied any history of atrial fibrillation or PE/DVT. Patient is currently maintaining sinus mechanism. Loop recorder interrogation performed revealing episodes of atrial fibrillation. DIAGNOSTICS: - EKG reveals sinus mechanism with no signs of acute ischemia - Chest xray hazy interstitial markings seen bilaterally may relate to infectious/inflammatory process. - Laboratory data: WBC 10.2. Hemoglobin 12.0. Platelet count 298. Sodium 134. Potassium 4.1. BUN 49. Creatinine 4.27. - Current home cardiac medications include aspirin 162.5 mg daily, Lipitor 20 mg at night, Imdur 120 mg daily, midodrine 10 mg 3 times a day as needed, Procardia 60 mg twice a day, Demadex 20 mg daily, carvedilol 12.5 mg twice a day - Most recent echocardiogram obtained in August 2024 revealed ejection fraction 55 to 60% with no significant valvular disease - Cardiac catheterization history: 2008 revealing approximately 40%, mid LAD 50%, diagonal 50%, circumflex 50%, and nondominant RCA with no significant stenosis -Patient underwent Lexiscan stress test in March 2024 which was negative for ischemia 09/26/2024 Was seen and examined resting comfortably in bed. [place] any chest discomfort or shortness of breath. Continues to have issues with speech and swallowing. Facial droop noted. Awaiting swallow eval. Anticoagulation has not been initiated at this point. CT scan done this morning showed a 0.4 cm petechial hemorrhage within the left parietal infarct may be present, increasing edema in the right parietal infarct as effacement of the sulci, no midline shift or significant ventricle compression, old occipital watershed infarcts bilaterally. We are awaiting input from neurology in regards to anticoagulation. 09/27/2024 Patient was seen and examined resting comfortably in bed. He was seen by maximilian farfan yesterday and anticoagulation remains on hold due to moderate size stroke as well as questionable petechial hemorrhage. Plan for repeat CT of the head. PHYSICAL EXAM: VITAL SIGNS: Reviewed. GENERAL: Well-developed in no acute distress. HEENT: Head is normocephalic. Pupils are equal, round. Sclerae anicteric. Mucous membranes of the mouth are moist. Neck supple. No JVD or thyromegaly LUNGS: Respirations even and unlabored. Lungs essentially clear to auscultation bilaterally. HEART: Regular rate and rhythm. S1 and S2 heard. Systolic murmur noted ABDOMEN: Soft. Nondistended. Nontender. EXTREMITIES: Left-sided weakness. Normal range of motion. No clubbing or cyanosis. Peripheral pulses intact. No lower extremity edema NEUROLOGIC: Awake and alert. ASSESSMENT: Acute/subacute CVA involving right MCA territory New onset atrial fibrillation, found on loop recorder interrogation, maintaining sinus mechanism Recent diagnosis and hospitalization for tussive syncope Nonobstructive CAD, per cath 2008 History of loop recorder implantation, [employer], 2020 Chronic kidney disease on hemodialysis Hypertension Hyperlipidemia History of CVA Diabetes PLAN: Continue telemetry monitoring Awaiting input from neurology regards to anticoagulation. 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 Patient was seen and examined. Objective - Vital Signs Vital signs: Vital Signs Temp 97.7 F 09/27/24 08:00 Pulse 74 09/27/24 08:54 Resp 18 09/27/24 08:00 BP 182/79 09/27/24 08:00 Pulse Ox 99 09/27/24 08:00 FiO2 60 09/26/24 16:00 Intake & Output 09/26/24 09/27/24 09/27/24 18:59 06:59 18:59 Intake Total 439.833 Output Total 300 475 Balance 139.833 -475 Weight 86 kg Intake: Intake, IV Titration 439.833 Amount Dextrose 5% in Water 1, 300 000 ml @ 50 mls/hr IV . Q20H [facility] Rx#:[id number] Diltiazem 125 mg In 139.833 Sodium Chloride 0.9% 100 ml @ 5 MG/HR 5 mls/hr IV .Q24H [facility] Rx#:[id number] Output: Urine 300 475 Other: Voiding Method Indwelling Catheter Indwelling Catheter Indwelling Catheter # Bowel Movements 1 - Labs CBC & Chem 7: 09/27/24 07:13 09/27/24 07:13 Labs: Abnormal Lab Results - Last 24 Hours (Table) 09/26/24 09/26/24 09/26/24 Range/Units 11:30 16:53 20:23 RBC (4.30-5.90) m/uL Hgb (13.0-17.5) gm/dL Hct (39.0-53.0) % Sodium (137-145) mmol/L BUN (9-20) mg/dL Creatinine (0.66-1.25) mg/dL POC Glucose (mg/dL) 136 H 212 H 164 H (70-110) mg/dL Calcium (8.4-10.2) mg/dL 09/27/24 09/27/24 Range/Units 07:13 07:13 RBC 3.27 L (4.30-5.90) m/uL Hgb 10.6 L (13.0-17.5) gm/dL Hct 31.1 L (39.0-53.0) % Sodium 135 L (137-145) mmol/L BUN 64 H (9-20) mg/dL Creatinine 5.63 H (0.66-1.25) mg/dL POC Glucose (mg/dL) (70-110) mg/dL Calcium 8.1 L (8.4-10.2) mg/dL Microbiology - Last 24 Hours (Table) 09/21/24 16:23 Blood Culture - Final Blood
--- NOTE | 2024-09-27 12:24 | P.PN ---
Subjective patient is seen on hemodialysis. Tolerating treatment well. He is also having an echocardiogram performed. Blood pressure on the higher side with systolic in the 160s to 150s. Goal UF about 2 L today. Objective - Vital Signs Vital signs: Vital Signs Temp 36.8 F L 09/27/24 09:02 Pulse 72 09/27/24 12:19 Resp 18 09/27/24 09:02 BP 170/71 09/27/24 09:02 Pulse Ox 99 09/27/24 08:00 FiO2 60 09/26/24 16:00 Intake & Output 09/26/24 09/27/24 09/27/24 18:59 06:59 18:59 Intake Total 041.464 0433 Output Total 440 840 8073 Balance 139.833 -475 0 Weight 86 kg Intake: Intake, IV Titration 439.833 Amount Dextrose 5% in Water 1, 300 000 ml @ 50 mls/hr IV . Q20H [facility] Rx#:[id number] Diltiazem 125 mg In 139.833 Sodium Chloride 0.9% 100 ml @ 5 MG/HR 5 mls/hr IV .Q24H [facility] Rx#:[id number] Hemodialysis 2400 Output: Urine 300 475 Hemodialysis 400 Hemodialysis Net Amount 2000 Other: Voiding Method Indwelling Catheter Indwelling Catheter Indwelling Catheter # Bowel Movements 1 - Exam patient is awake, comfortable, no acute distress. Examination of the heart S1 and S2 Examination of the lungs bilateral breath sounds are heard Abdomen is soft nontender Examination of lower extremities shows no significant edema - Labs CBC & Chem 7: 09/27/24 07:13 09/27/24 07:13 Labs: Abnormal Lab Results - Last 24 Hours (Table) 09/26/24 09/26/24 09/27/24 Range/Units 16:53 20:23 07:13 RBC 3.27 L (4.30-5.90) m/uL Hgb 10.6 L (13.0-17.5) gm/dL Hct 31.1 L (39.0-53.0) % Sodium (137-145) mmol/L BUN (9-20) mg/dL Creatinine (0.66-1.25) mg/dL POC Glucose (mg/dL) 212 H 164 H (70-110) mg/dL Calcium (8.4-10.2) mg/dL 09/27/24 Range/Units 07:13 RBC (4.30-5.90) m/uL Hgb (13.0-17.5) gm/dL Hct (39.0-53.0) % Sodium 135 L (137-145) mmol/L BUN 64 H (9-20) mg/dL Creatinine 5.63 H (0.66-1.25) mg/dL POC Glucose (mg/dL) (70-110) mg/dL Calcium 8.1 L (8.4-10.2) mg/dL Microbiology - Last 24 Hours (Table) 09/21/24 16:23 Blood Culture - Final Blood Assessment and Plan Assessment: 1. End-stage renal disease maintained on hemodialysis on Thursday schedule. 2. Pneumonia maintained on antibiotics. 3. Diabetes mellitus. 4. Hypertension with chronic kidney disease. Exacerbated by steroids. 5. Acute/Subacute CVA- neurology following. Plan: next hemodialysis on 09/29/24
[2024-09-27 12:52] LABS: Glucose,Whole Blood 90 mg/dL (70-110)
--- NOTE | 2024-09-27 13:15 | P.PN ---
Subjective Progress Note Date: 09/27/24 Principal diagnosis: Hospital course: Patient is a 79-year-old male with ESRD, presenting for syncope induced by cough. Patient is poor historian. He was recently admitted for similar symptoms on September 12 and subsequently discharged with doxycycline for treatment of tracheobronchitis for mucous plugging. Since this time patient has had persistent symptoms with sputum production. Denying fever, chills, shortness of breath, chest pain, palpitations at this time. Labs completed in emergency room significant for WBC 6.7, hemoglobin 10.0, sodium 132, potassium 5.0, bicarb 20, BUN 43, creatinine 5.31, glucose 260, A1c 7.3, ALP 146, proBNP 2840, viral respiratory panel is negative. EKG done in the ER independently interpreted showed sinus rhythm heart rate of 60, no ST segment elevation or depression seen, no T-wave inversions seen. Chest x-ray done independently interpreted in the ER showed hazy interstitial markings bilaterally 09/23/2024 Patient seen and examined at bedside. No acute events overnight. Will discontinue antibiotics and steroids. Today's labs significant for WBC 14.6, BUN 38, creatinine 4.2, glucose ranging from 416-209, procalcitonin negative, blood cultures pending with no growth thus far. 09/24/2024 Patient seen and examined at bedside. Overnight patient began having strokelike symptoms at around 4 AM as witnessed by in the room with new onset left- sided weakness, left-sided facial droop and slurred speech with difficulty swallowing. Code stroke was called. Initial CT head with no evidence of acute intracranial process, later MRI of brain with subacute/acute CVA involving right MCA predominantly right frontal lobe and insular cortex. Patient given 300 mg of aspirin rectally as could not tolerate oral swallowing. Neurology consulted. Dialysis today. Today's labs WBC 12.0, hemoglobin 11.3, sodium 133, BUN 78, creatinine 5.24, glucose 166. 09/25. Patient seen and examined. Patient is moving his left upper extremity more than yesterday, also lifting his left lower extremity. Family thinks that patient has improved compared to yesterday 09/26/24: Patient evaluated at bedside today. Patient's family mentioned that his strength is better but currently the patient is very tired as he was up all night coughing. Labs show hemoglobin 11.5, sodium 136, BUN 61, creatinine 5.22. Brain CT shows 0.4 cm petechial hemorrhage within the left parietal infarct may be present, increasing edema in the right parietal infarct as effacement of the sulk I with no midline shift or significant ventricle compression, old occipital watershed infarcts bilaterally. 09/27/24: Patient examined today. Dysphagia evaluation by DOCTOR OF [facility] showed poor t oleration of PO trials exhibiting severe coughing with 2 attempts, continue strict NPO. Labs today show hemoglobin 10.6, sodium 135, BUN 64, creatinine 5.63. EEG done yesterday shows abnormal routine EEG, background slowing with history of mild encephalopathy, no focal slowing/epileptiform discharge/seizure. Hemodialysis today. Review of systems: Pertinent positives and negatives as discussed in HPI, a complete review of systems was performed and all other systems are negative. Vitals: Signs Reviewed Physical examination: General: nontoxic, no distress, appears at stated age Derm: warm, dry, intact Head: atraumatic, normocephalic, symmetric Eyes: Eye reacting to light, bilateral right gaze Mouth: no lip lesion, mucus membranes moist Cardiovascular: S1 S2 reg, no murmur Lungs: CTA bilateral, no rhonchi, no rales, no accessory muscle use Abdominal: soft, non-tender to palpataion Extremities: No cyanosis, clubbing, or pedal edema. Neuro: Mild left-sided facial droop, left upper extremity strength 3/5, left lower extremity 3/5 at this time. 5/5 right side upper and lower extremities Psych: well appearing, appropriate affect Assessment/Plan: Patient is a 79-year-old male with ESRD(TTS), presenting for cough induced syncope. He has been admitted for respiratory distress. The patient then had a CODE STROKE and he was found to have an acute CVA due to new onset atrial fibrillation. Brain CT showed petechial hemorrhage over left parietal. Repeat CT of the head today. Currently aspirin and heparin on hold. Obtain bubble study. 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 # New onset paroxysmal atrial fibrillation currently in NSR MRI brain with subacute CVA involving right MCA predominantly right frontal lobe and insular cortex Loop recorder interrogation showed new onset atrial fibrillation Brain CT shows 0.4 cm petechial hemorrhage within the left parietal infarct may be present, increasing edema in right parietal infarct as effacement of the sulci with no midline shift or significant ventricle compression, old occipital watershed infarcts bilaterally EEG done yesterday shows abnormal routine EEG, background slowing with history of mild encephalopathy, no focal slowing/epileptiform discharge/seizure. Continue Keppra 500 mg twice daily, Lipitor 80 mg Hold aspirin and heparin Dysphagia evaluation by [facility] showed poor toleration of PO trials exhibiting severe coughing with 2 attempts, continue strict NPO Continue IV Cardizem Repeat CT head Obtain bubble study Cardiology following, recommending Eliquis if patient is able to tolerate p.o. meds Neurology following, recommending repeating CT head today and hold aspirin and heparin # Respiratory distress # Cough induced syncope CT chest findings of moderate bilateral pleural effusions with associated atelectasis, no focal consolidation Continue bronchodilators Encourage incentive spirometry Pulmonology following # ESRD Continue lisinopril per nephrology Hemodialysis Thursday schedule # Diabetes mellitus Low-dose insulin, ACHS protocol Chronic Medical Conditions #Hypertension hold for now #Peripheral neuropathyresume home medication #Hx of CVAas mentioned above F: None E: Replete as required N: Consistent carbohydrate diet Attestation I have seen and examined this patient with my resident , discussed the same with the resident/ELISE, and agree with the dictator's assessment and plan as written Dr. Emmanuel medina Objective - Vital Signs Vital signs: Vital Signs Temp 98.7 F 09/27/24 04:00 Pulse 65 09/27/24 04:00 Resp 15 09/27/24 04:00 BP 168/79 09/27/24 04:00 Pulse Ox 98 09/27/24 04:00 FiO2 60 09/26/24 16:00 Intake & Output 09/26/24 09/27/24 09/27/24 18:59 06:59 18:59 Intake Total 439.833 Output Total 300 475 Balance 139.833 -475 Weight 86 kg Intake: Intake, IV Titration 439.833 Amount Dextrose 5% in Water 1, 300 000 ml @ 50 mls/hr IV . Q20H BETSY Rx#:[id number] Diltiazem 125 mg In 139.833 Sodium Chloride 0.9% 100 ml @ 5 MG/HR 5 mls/hr IV .Q24H BETYS Rx#:[id number] Output: Urine 300 475 Other: Voiding Method Indwelling Catheter Indwelling Catheter # Bowel Movements 1 - Labs CBC & Chem 7: 01/01/25 07:29 09/28/24 07:29 Labs: Abnormal Lab Results - Last 24 Hours (Table) 09/26/24 09/26/24 09/26/24 Range/Units 08:08 08:08 11:30 RBC 3.49 L (4.30-5.90) m/uL Hgb 11.5 L (13.0-17.5) gm/dL Hct 33.3 L (39.0-53.0) % Sodium 136 L (137-145) mmol/L Chloride 97 L (98-107) mmol/L BUN 61 H (9-20) mg/dL Creatinine 5.22 H (0.66-1.25) mg/dL Glucose 140 H (74-99) mg/dL POC Glucose (mg/dL) 136 H (70-110) mg/dL Total Protein 6.1 L (6.3-8.2) g/dL 09/26/24 09/26/24 Range/Units 16:53 20:23 RBC (4.30-5.90) m/uL Hgb (13.0-17.5) gm/dL Hct (39.0-53.0) % Sodium (137-145) mmol/L Chloride (98-107) mmol/L BUN (9-20) mg/dL Creatinine (0.66-1.25) mg/dL Glucose (74-99) mg/dL POC Glucose (mg/dL) 212 H 164 H (70-110) mg/dL Total Protein (6.3-8.2) g/dL Microbiology - Last 24 Hours (Table) 09/21/24 16:23 Blood Culture - Final Blood
--- NOTE | 2024-09-27 13:31 | CT ---
EXAMINATION TYPE: CT brain wo con CT DLP: 1127.4 mGycm, Automated exposure control for dose reduction was used. DATE OF EXAM: 09/27/2024 1:18 PM COMPARISON: CT brain 09/26/2024, 03/17/2024, MRI brain 09/24/2024, CT brain C-spine 09/11/2024 CLINICAL INDICATION:Male, 79 years old with history of stroke, Follow up for stroke. TECHNIQUE: Brain: Multiple axial CT images of the brain were obtained without IV contrast. . Coronal and sagitta l reformats reviewed. FINDINGS: Brain: Extra-axial spaces: No abnormal extra-axial fluid collections. Ventricular system: Within normal limits Cerebral parenchyma: Age-appropriate cerebral volume loss. Regions of encephalomalacia within the alia ateral high parietal lobes and left parieto-occipital region consistent with remote CVA. Additional l eft temporal lobe middle cranial fossa region of encephalomalacia from prior CVA. Evolving right MCA territory infarct with similar minimal petechial hemorrhage. There is surrounding effacement of the p eripheral sulci. Nonspecific right basal ganglia calcification redemonstrated. Cerebellum: Unremarkable. Mass effect: No evidence of midline shift. Intracranial vasculature: Atherosclerotic calcifications of the intracranial vessels. Soft tissues: Normal. Calvarium/osseous structures: No depressed skull fracture. Paranasal sinuses and mastoid air cells: Clear Visualized orbits: Bilateral aphakia IMPRESSION: 1. Overall similar examination with evolving right MCA territory infarct and trace petechial hemorrh age. No midline shift. 2. Remote injuries to the bilateral frontal lobes and left temporal lobe with encephalomalacia. [facility], , 09/27/2024 1:29 PM
--- NOTE | 2024-09-27 15:12 | P.PN ---
Subjective Progress Note Date: 09/27/24 Principal diagnosis: Bronchitis, syncope. This is a 79-year-old male with history of end-stage renal disease, on hemodialysis Thursday and Thursday the patient himself is a very poor historian, most of the information obtained was from his daughter at bedside. The last couple of weeks, patient has been coughing and at times passing out, he had almost a dozen episodes of cough induced syncope. And never smoked, he has no history of COPD, his chest x-ray and CT of the chest done on this admission showed moderate bilateral pleural effusions with associated atelectasis. Chest x-ray showed mild interstitial prominence. Patient had his dialysis today and has CT of the chest done after dialysis clearly showed evidence of moderate- sized bilateral pleural effusions not clearly appreciated on the chest x-ray. Labs today showed negative screening for influenza A, influenza B, RSV and COVID-19. CBC was noted to be unremarkable. Hemoglobin is a bit low at 10 basi c metabolic profile is normal BUN is 43 creatinine 5.31, BNP level is 2840. After reviewing the patient chart, apparently the patient was recently in the hospital from and he was discharged on diagnosed as having tracheobronchitis, pulmonary was not consulted on his last admission. However patient was discharged home on doxycycline at 100 mg p.o. twice daily. That did not seem to make any difference on his cough and did not make any difference on his cough induced syncope. Echocardiogram on his last admission showed no evidence of LV dysfunction, no evidence of significant valvular heart disease and there was no evidence of pulmonary hypertension. His ejection fraction was 55 to 60% The patient is seen today September 23, 2024 in follow-up on the regular medical floor. He is currently sitting up at the bedside having breakfast. Awake and alert in no acute distress. Maintaining good O2 saturations in the 90s on room air. He did receive hemodialysis yesterday with 2 L removed. White count 14.6. Hemoglobin 11.4. Platelets 309. Sodium 135. Potassium 4.4. Bicarb 25. BUN 39. Creatinine 4.2. Glucose 247. Procalcitonin negative at 0.21. He is currently on DuoNeb and elations, Solu-Medrol, antibiotics in the form of ceftriaxone and azithromycin. The patient is seen today September 26, 2024 in follow-up on the selective care unit. He is currently resting in bed. Maintaining O2 saturations in the 90s on room air. Has been afebrile. Hemodynamically stable. Remains with a left- sided arm and leg drift. Follow-up CT scan of the brain revealed a 0.4 cm petechial hemorrhage within the left parietal infarct. Increasing edema in the right parietal infarct has effacement of the Clint. No midline shift or significant ventricle compression. Old occipital watershed infarcts bilaterally. Neurology is following closely. White count 10.2. Hemoglobin 11.5. Platelets 278. Sodium 136. Potassium 3.9. Bicarb 27. BUN 61. Creatinine 5.22. Glucose 140. He remains on a Cardizem drip at 5 mg/h. Heparin placed on hold. Continued on Keppra. Progress note dated September 27, 2024. 79-year-old male who is seen today in room 370. Currently, the patient is receiving D5W at 50 cc an hour. The patient is currently on room air. He did have hemodialysis today. 2 L of fluid was removed. He is resting comfortably in bed. No acute distress. No respiratory distress. Current labs include a white count 10.6, hemoglobin 10.6, hematocrit 31.1, and a platelet count of 267,000. Sodium 135, potassium 3.6, chlorides 99, CO2 27, anion gap 9, BUN 64, creatinine 5.63. Glucose is 90. Calcium is 8.1. The scan of the brain shows an overall similar examination with evolving right MCA territory infarct and trace petechial hemorrhage. No midline shift. Remote injuries to the bilateral frontal lobes and left temporal lobe with encephalomalacia. Objective - Vital Signs Vital signs: Vital Signs Temp 36.8 F L 09/27/24 09:02 Pulse 74 09/27/24 12:30 Resp 18 09/27/24 12:00 BP 159/60 09/27/24 12:00 Pulse Ox 99 09/27/24 12:00 FiO2 60 09/26/24 16:00 Intake & Output 09/26/24 09/27/24 09/27/24 18:59 06:59 18:59 Intake Total 076.893 2567 Output Total 341 121 6474 Balance 139.833 -475 -150 Weight 86 kg Intake: Intake, IV Titration 439.833 Amount Dextrose 5% in Water 1, 300 000 ml @ 50 mls/hr IV . Q20H BETSY Rx#:[id number] Diltiazem 125 mg In 139.833 Sodium Chloride 0.9% 100 ml @ 5 MG/HR 5 mls/hr IV .Q24H BETSY Rx#:[id number] Hemodialysis 2400 Output: Urine 300 475 150 Hemodialysis 400 Hemodialysis Net Amount 2000 Other: Voiding Method Indwelling Catheter Indwelling Catheter Indwelling Catheter # Bowel Movements 1 1 - Exam No acute distress, oriented 3. HEENT examination is grossly unremarkable. Mucous membranes are moist. No oral lesions. Neck supple. Full range of motion. No adenopathy thyromegaly or neck vein distention. Cardiovascular examination reveals an irregular rhythm and rate. S1-S2 normal. No S3 or S4. No discernible murmur noted. Lungs reveal bibasilar crackles. No wheezes or rhonchi. Breath sounds are equal bilaterally. The patient is currently on room air. Abdomen soft bowel sounds are heard. No masses or tenderness. Extremities are intact. No cyanosis clubbing or edema. Skin is without rash or lesion. Neurologic examination reveals left-sided weakness. - Labs CBC & Chem 7: 09/27/24 07:13 09/27/24 07:13 Labs: Abnormal Lab Results - Last 24 Hours (Table) 09/26/24 09/26/24 09/27/24 Range/Units 16:53 20:23 07:13 RBC 3.27 L (4.30-5.90) m/uL Hgb 10.6 L (13.0-17.5) gm/dL Hct 31.1 L (39.0-53.0) % Sodium (137-145) mmol/L BUN (9-20) mg/dL Creatinine (0.66-1.25) mg/dL POC Glucose (mg/dL) 212 H 164 H (70-110) mg/dL Calcium (8.4-10.2) mg/dL 09/27/24 Range/Units 07:13 RBC (4.30-5.90) m/uL Hgb (13.0-17.5) gm/dL Hct (39.0-53.0) % Sodium 135 L (137-145) mmol/L BUN 64 H (9-20) mg/dL Creatinine 5.63 H (0.66-1.25) mg/dL POC Glucose (mg/dL) (70-110) mg/dL Calcium 8.1 L (8.4-10.2) mg/dL Microbiology - Last 24 Hours (Table) 09/21/24 16:23 Blood Culture - Final Blood Assessment and Plan Assessment: Ischemic stroke involving the right MCA territory predominantly on the right frontal lobe and insular cortex. Follow-up CT scan today revealed questionable petechial hemorrhage over the right frontal parietal. Cough induced syncope. Bilateral pleural effusions/most likely secondary to chronic renal failure or diastolic congestive heart failure, patient had normal LV function based on his last echocardiogram. Benign essential hypertension. Dyslipidemia. History of CVA. Diabetes with diabetic peripheral neuropathy. History of seizures. End-stage renal disease, on hemodialysis Thursday schedule. Plan: Plan dated September 27, 2024. The patient is seen today in room 370. He is resting comfortably in bed. He is on room air. He is getting D5W at 50 cc an hour. The patient did have hemodialysis today. 2 L of fluid was removed. Labs, x-rays, and all medications are reviewed. Repeat CT scan of the brain, showed findings that were similar to prior CT scan. Nothing new was noted. Prognosis is guarded. Time with Patient: Less than 30
--- NOTE | 2024-09-27 16:11 | P.PN ---
Subjective Progress Note Date: 09/27/24 I am following up with the patient today and per family members he is better moving the right side per the daughter. Earlier today he received dialysis. Objective - Vital Signs Vital signs: Vital Signs Temp 98.4 F 09/27/24 15:38 Pulse 98 09/27/24 15:38 Resp 20 09/27/24 15:38 BP 188/82 09/27/24 15:38 Pulse Ox 98 09/27/24 15:38 FiO2 60 09/26/24 16:00 Intake & Output 09/26/24 09/27/24 09/27/24 18:59 06:59 18:59 Intake Total 197.383 1925 Output Total 019 430 3440 Balance 139.833 -475 -150 Weight 86 kg Intake: Intake, IV Titration 439.833 Amount Dextrose 5% in Water 1, 300 000 ml @ 50 mls/hr IV . Q20H BETSY Rx#:[id number] Diltiazem 125 mg In 139.833 Sodium Chloride 0.9% 100 ml @ 5 MG/HR 5 mls/hr IV .Q24H BETSY Rx#:[id number] Hemodialysis 2400 Output: Urine 300 475 150 Hemodialysis 400 Hemodialysis Net Amount 2000 Other: Voiding Method Indwelling Catheter Indwelling Catheter Indwelling Catheter # Bowel Movements 1 1 - Exam General: Lying in bed and is not in acute distress. Neuro: Somewhat limited because of his cooperation. Patient is mildly drowsy but is awake both voice. He is oriented to self. His was translating from [place] to Polish to help with the physical examination. He followed few simple commands such as showing a thumbs up and moving extremities. Language is limited Pupils are round 3 mm reactive to light. Patient has left facial weakness. Has dysarthria. Motor is the strength as he is moving the right upper and lower more than the left. - Labs CBC & Chem 7: 09/27/24 07:13 09/27/24 07:13 Labs: Abnormal Lab Results - Last 24 Hours (Table) 09/26/24 09/26/24 09/27/24 Range/Units 16:53 20:23 07:13 RBC 3.27 L (4.30-5.90) m/uL Hgb 10.6 L (13.0-17.5) gm/dL Hct 31.1 L (39.0-53.0) % Sodium (137-145) mmol/L BUN (9-20) mg/dL Creatinine (0.66-1.25) mg/dL POC Glucose (mg/dL) 212 H 164 H (70-110) mg/dL Calcium (8.4-10.2) mg/dL 09/27/24 Range/Units 07:13 RBC (4.30-5.90) m/uL Hgb (13.0-17.5) gm/dL Hct (39.0-53.0) % Sodium 135 L (137-145) mmol/L BUN 64 H (9-20) mg/dL Creatinine 5.63 H (0.66-1.25) mg/dL POC Glucose (mg/dL) (70-110) mg/dL Calcium 8.1 L (8.4-10.2) mg/dL Microbiology - Last 24 Hours (Table) 09/21/24 16:23 Blood Culture - Final Blood Assessment and Plan Assessment: * Acute ischemic stroke involving the right MCA territory predominantly in the right frontal lobe and insular cortex. Event appears embolic in nature. * Questionable small petechial hemorrhage over the right fronto/parietal on the repeat CT of the head today. She reported on the left but reading radiologist placed the area on the right is seems more right frontal parietal and there is truly hemorrhage versus surround normal hernandez/white matter * New diagnosis of paroxysmal atrial fibrillation. 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 * Cognitive impairment * Diabetes * ESRD on hemodialysis * Hypertension * Hyperlipidemia Plan: * MRI of the brain without contrast revealed acute/subacute CVA involving the right MCA territory, predominantly in the right frontal lobe and insular cortex. Remote injuries of the left parietal lobe and left inferior temporal lobe with encephalomalacia. Nonspecific white matter changes, likely se condary to small vessel ischemic disease. I personally reviewed MRI agree with the findings. Also evidence of old encephalomalacia involving right frontal and parietal region. Also evidence of some hemosiderin deposition in the left parietal region. Dr. Bustillo Discussed MRI findings with stroke n eurologist Dr. Centeno * CT of the head on 09/26/2024 is reported as 0.4 cm petechial hemorrhage within the left parietal infarct may be present. I personally reviewed the CT and the hyperintensity was very small and its over the right frontal/parietal but mostly frontal could be artifact. I personally discussed this finding with a second opinion Dr. Jose on 09/27/2024 and he agrees. * 2-D echo with bubble study to rule out PFO. Per Dr. Bustillo, patient may need KARISHMA. * Cardiology input appreciated. Patient had loop recorder interrogation and patient was found to have paroxysmal atrial fibrillation. * Hold off anticoagulation for now because of moderate to large-sized stroke. Also avoid anticoagulation because of questionable petechial hemorrhage. Will get a repeat CT of the head today. * CTA head and neck showed: No evidence of large vessel occlusion. Negative CTA of the neck. * Ordered lipid panel. Continue Lipitor 80 mg. * Hemoglobin A1c 7.3 * Recommend normotensive blood pressure. * Continue aspirin 300 mg rectally. Placed on hold because of petechial hemorrhage. * Continue Keppra 500 mg twice daily Neuro checks every 2 hours. * Telemetry monitoring rule out any arrhythmia * PT, OT, speech therapy * DVT prophylaxis: Heparin 5000 units subcu every 8 hours. Placed on hold because of petechial hemorrhage. The plan is discussed with his family members ( and his daughter) as well his nurse. Time with Patient: Less than 30
[2024-09-27 16:26] LABS: Glucose,Whole Blood 137 mg/dL (70-110)
--- NOTE | 2024-09-27 17:57 | CA ---
Transthoracic Echo Report Name: Edgardo Alvarez Age: 79 Gender: M : 1945 Exam Date: 09/27/2024 11:10 Exam Location: [facility] [place] [facility] Ht (in): 67 Wt (lb): 189 Ordering Physician: Lisseth Tavarez Attending/Referring Phys: [id number], [place] [employer] Jeanne Mccoy RDCS Procedure CPT: Indications: CVA Cardiac Hx: Limited for bubble study only. Technical Quality: Very technically difficult study Contrast 1: Total Dose (mL): Contrast 2: Total Dose (mL): MEASUREMENTS (Male / Female) Normal Values FINDINGS Left Ventricle Right Ventricle Right Atrium Unable to assess saline bubble study due to inadequate image quality. Left Atrium Mitral Valve Aortic Valve Tricuspid Valve Pulmonic Valve Pericardium Aorta CONCLUSIONS Unable to assess for shunt because of inadequate image quality Previewed by: Dr. Demetri Westbrook MD (Electronically Signed) Final Date: 27 September 2024 17:56
[2024-09-27 20:40] LABS: Glucose,Whole Blood 142 mg/dL (70-110)
[2024-09-27] MEDS: ACETAMINOPHEN IV (For NPO) 1,000 MG in EMPTY BAG 1 BAG IVPB PRN (22:00)
[2024-09-28] MEDS ORDERED: ACETAMINOPHEN IV (For NPO) 1,000 MG in EMPTY BAG 1 BAG IVPB SCH
[2024-09-28 06:17] LABS: Glucose,Whole Blood 173 mg/dL (70-110)
[2024-09-28 08:17] LABS: HCT 31.3 % (39.0-53.0); HGB 10.7 gm/dL (13.0-17.5); MCH 32.2 pg (25.0-35.0); MCHC 34.3 g/dL (31.0-37.0); Mean Platelet Volume 7.4; Platelet Count 253 k/uL (150-450); RBC 3.33 m/uL (4.30-5.90); RDW 12.9 % (11.5-15.5); WBC 10.8 k/uL (3.8-10.6)
[2024-09-28 08:38] LABS: African American GFR (CKD) 14 (>60 ml/min/1.73 sqM); Anion Gap 9 mmol/L; Blood Urea Nitrogen 35 mg/dL (9-20); Calcium 8.3 mg/dL (8.4-10.2); Carbon Dioxide 31 mmol/L (22-30); Chloride 91 mmol/L (98-107); Glucose 169 mg/dL (74-99); Non-African American GFR(CKD) 12 (>60 ml/min/1.73 sqM); Potassium 3.4 mmol/L (3.5-5.1); Sodium 131 mmol/L (137-145)
[2024-09-28 09:46] LABS: Chol/HDL Ratio 1.63 Ratio; LDL Cholesterol,Calculated 25.6 mg/dL (0.0-131.0); VLDL Calculation 15.16 mg/dL (5.00-40.00)
[2024-09-28] MEDS ORDERED: hydrALAZINE HCL 20 MG/ML 1 ML VIAL IVP PRN (11:09)
--- NOTE | 2024-09-28 11:30 | P.PN ---
Subjective Progress Note Date: 09/28/24 Principal diagnosis: Hospital course: Patient is a 79-year-old male with ESRD, presenting for syncope induced by cough. Patient is poor historian. He was recently admitted for similar symptoms on September 12 and subsequently discharged with doxycycline for treatment of tracheobronchitis for mucous plugging. Since this time patient has had persistent symptoms with sputum production. Denying fever, chills, shortness of breath, chest pain, palpitations at this time. Labs completed in emergency room significant for WBC 6.7, hemoglobin 10.0, sodium 132, potassium 5.0, bicarb 20, BUN 43, creatinine 5.31, glucose 260, A1c 7.3, ALP 146, proBNP 2840, viral respiratory panel is negative. EKG done in the ER independently interpreted showed sinus rhythm heart rate of 60, no ST segment elevation or depression seen, no T-wave inversions seen. Chest x-ray done independently interpreted in the ER showed hazy interstitial markings bilaterally 09/23/2024 Patient seen and examined at bedside. No acute events overnight. Will discontinue antibiotics and steroids. Today's labs significant for WBC 14.6, BUN 38, creatinine 4.2, glucose ranging from 416-209, procalcitonin negative, blood cultures pending with no growth thus far. 09/24/2024 Patient seen and examined at bedside. Overnight patient began having strokelike symptoms at around 4 AM as witnessed by in the room with new onset left- sided weakness, left-sided facial droop and slurred speech with difficulty swallowing. Code stroke was called. Initial CT head with no evidence of acute intracranial process, later MRI of brain with subacute/acute CVA involving right MCA predominantly right frontal lobe and insular cortex. Patient given 300 mg of aspirin rectally as could not tolerate oral swallowing. Neurology consulted. Dialysis today. Today's labs WBC 12.0, hemoglobin 11.3, sodium 133, BUN 78, creatinine 5.24, glucose 166. 09/25. Patient seen and examined. Patient is moving his left upper extremity more than yesterday, also lifting his left lower extremity. Family thinks that patient has improved compared to yesterday 09/26/24: Patient evaluated at bedside today. Patient's family mentioned that his strength is better but currently the patient is very tired as he was up all night coughing. Labs show hemoglobin 11.5, sodium 136, BUN 61, creatinine 5.22. Brain CT shows 0.4 cm petechial hemorrhage within the left parietal infarct may be present, increasing edema in the right parietal infarct as effacement of the sulk I with no midline shift or significant ventricle compression, old occipital watershed infarcts bilaterally. 09/27/24: Patient examined today. Dysphagia evaluation by [facility] [employer] showed poor t oleration of PO trials exhibiting severe coughing with 2 attempts, continue strict NPO. Labs today show hemoglobin 10.6, sodium 135, BUN 64, creatinine 5.63. EEG done yesterday shows abnormal routine EEG, background slowing with history of mild encephalopathy, no focal slowing/epileptiform discharge/seizure. Hemodialysis today. 09/28/24: Patient evaluated at bedside. Patient had hemodialysis yesterday, 2L was removed. Labs today show WBC 10.8, hemoglobin 10.7, sodium 131, potassium 3.4, bicarb 31, BUN 35, creatinine 4.35. Repeat CT Brain showed overall similar examination with evolving right MCA territory infarct and trace petechial hemorrhage, no midline shift, Remote injuries to bilateral frontal lobes and left temporal lobe with encephalomalacia. Review of systems: Pertinent positives and negatives as discussed in HPI, a complete review of systems was performed and all other systems are negative. Vitals: Signs Reviewed Physical examination: General: nontoxic, no distress, appears at stated age Derm: warm, dry, intact Head: atraumatic, normocephalic, symmetric Eyes: Eye reacting to light, bilateral right gaze Mouth: no lip lesion, mucus membranes moist Cardiovascular: S1 S2 reg, no murmur Lungs: CTA bilateral, no rhonchi, no rales, no accessory muscle use Abdominal: soft, non-tender to palpataion Extremities: No cyanosis, clubbing, or pedal edema. Neuro: Mild left-sided facial droop, left upper extremity strength 3/5, left lower extremity 3/5 at this time. 5/5 right side upper and lower extremities Psych: well appearing, appropriate affect Assessment/Plan: Patient is a 79-year-old male with ESRD(TTS), presenting for cough induced synco pe. He has been admitted for respiratory distress. The patient then had a CODE STROKE and he was found to have an acute CVA due to new onset atrial fibrillation. Brain CT showed petechial hemorrhage over left parietal. Repeat CT of the head today. Currently aspirin and heparin on hold. Obtain bubble study. 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 # New onset paroxysmal atrial fibrillation currently in NSR MRI brain with subacute CVA involving right MCA predominantly right frontal lobe and insular cortex Loop recorder interrogation showed new onset atrial fibrillation Brain CT shows 0.4 cm petechial hemorrhage within the left parietal infarct may be present, increasing edema in right parietal infarct as effacement of the sulci with no midline shift or significant ventricle compression, old occipital watershed infarcts bilaterally EEG done yesterday shows abnormal routine EEG, background slowing with history of mild encephalopathy, no focal slowing/epileptiform discharge/seizure Repeat CT Brain showed overall similar examination with evolving right MCA territory infarct and trace petechial hemorrhage, no midline shift. Remote injuries to bilateral frontal lobes and left temporal lobe with encephalomalacia Dysphagia evaluation by [facility] showed poor toleration of PO trials exhibiting severe coughing with 2 attempts, continue strict NPO Continue IV Cardizem Continue Keppra 500 mg twice daily, Lipitor 80 mg Hold aspirin and heparin Hydralazine 10 mg Q6HR PRN for BP>180 Continue Procardia 60 mg PO BID Cardiology following, recommending bubble study Neurology following, recommending to hold aspirin and heparin due to petechial hemorrhage # Respiratory distress # Cough induced syncope CT chest findings of moderate bilateral pleural effusions with associated atelectasis, no focal consolidation Continue bronchodilators Encourage incentive spirometry Pulmonology following # ESRD Continue lisinopril per nephrology Hemodialysis Thursday schedule # Diabetes mellitus Low-dose insulin, ACHS protocol Chronic Medical Conditions #Hypertension hold for now #Peripheral neuropathyresume home medication #Hx of CVAas mentioned above F: None E: Replete as required N: Consistent carbohydrate diet Attestation I have seen and examined this patient with my resident , discussed the same with the resident/ELISE, and agree with the dictator's assessment and plan as written Dr. Emmanuel medina Objective - Vital Signs Vital signs: Vital Signs Temp 98.3 F 09/28/24 04:00 Pulse 98 09/28/24 04:00 Resp 19 09/28/24 04:00 BP 188/77 09/28/24 04:00 Pulse Ox 96 09/28/24 04:00 FiO2 60 09/26/24 16:00 Intake & Output 09/27/24 09/28/24 09/28/24 18:59 06:59 18:59 Intake Total 2400 20 Output Total 2725 Balance -325 20 Weight 84.5 kg Intake: IV 20 Invasive Line 3 10 Invasive Line 4 10 Oral 0 Hemodialysis 2400 Output: Urine 325 Hemodialysis 400 Hemodialysis Net Amount 2000 Other: Voiding Method Indwelling Catheter Indwelling Catheter # Bowel Movements 1 - Labs CBC & Chem 7: 09/29/24 06:35 09/29/24 06:35 Labs: Abnormal Lab Results - Last 24 Hours (Table) 09/27/24 09/27/24 09/27/24 Range/Units 07:13 07:13 16:23 RBC 3.27 L (4.30-5.90) m/uL Hgb 10.6 L (13.0-17.5) gm/dL Hct 31.1 L (39.0-53.0) % Sodium 135 L (137-145) mmol/L BUN 64 H (9-20) mg/dL Creatinine 5.63 H (0.66-1.25) mg/dL POC Glucose (mg/dL) 137 H (70-110) mg/dL Calcium 8.1 L (8.4-10.2) mg/dL 09/27/24 09/28/24 Range/Units 20:39 06:16 RBC (4.30-5.90) m/uL Hgb (13.0-17.5) gm/dL Hct (39.0-53.0) % Sodium (137-145) mmol/L BUN (9-20) mg/dL Creatinine (0.66-1.25) mg/dL POC Glucose (mg/dL) 142 H 173 H (70-110) mg/dL Calcium (8.4-10.2) mg/dL
[2024-09-28 11:43] LABS: Glucose,Whole Blood 170 mg/dL (70-110)
[2024-09-28] MEDS: DILTIAZEM 125 MG in SODIUM CHLORIDE 0.9% 100 ML IV SCH (11:50)
--- NOTE | 2024-09-28 12:26 | P.PN ---
Subjective Patient is seen for follow-up for end-stage renal disease. Status post hemodialysis yesterday with UF of 2 L. Patient developed A-fib with RVR this morning and will be started on Cardizem drip. CT scan done yesterday afternoon shows evidence of evolving stroke in the right MCA territory. Patient is laying in bed he is comfortable. Answers to questions appropriately. Objective - Vital Signs Vital signs: Vital Signs Temp 97.5 F L 09/28/24 08:00 Pulse 72 09/28/24 09:32 Resp 18 09/28/24 08:00 BP 202/88 09/28/24 08:00 Pulse Ox 100 09/28/24 08:00 FiO2 60 09/26/24 16:00 Intake & Output 09/27/24 09/28/24 09/28/24 18:59 06:59 18:59 Intake Total 2400 20 118 Output Total 2725 Balance -325 20 118 Weight 84.5 kg Intake: IV 20 Invasive Line 3 10 Invasive Line 4 10 Oral 0 118 Hemodialysis 2400 Output: Urine 325 Hemodialysis 400 Hemodialysis Net Amount 1999 Other: Voiding Method Indwelling Catheter Indwelling Catheter Indwelling Catheter # Bowel Movements 1 1 - Exam patient is awake, comfortable, no acute distress. Examination of the heart S1 and S2 Examination of the lungs bilateral breath sounds are heard Abdomen is soft nontender Examination of lower extremities shows no significant edema - Labs CBC & Chem 7: 09/28/24 07:29 09/28/24 07:29 Labs: Abnormal Lab Results - Last 24 Hours (Table) 09/27/24 09/27/24 09/27/24 Range/Units 07:13 16:23 20:39 WBC (3.8-10.6) k/uL RBC (4.30-5.90) m/uL Hgb (13.0-17.5) gm/dL Hct (39.0-53.0) % Sodium (137-145) mmol/L Potassium (3.5-5.1) mmol/L Chloride (98-107) mmol/L Carbon Dioxide (22-30) mmol/L BUN (9-20) mg/dL Creatinine (0.66-1.25) mg/dL Glucose (74-99) mg/dL POC Glucose (mg/dL) 137 H 142 H (70-110) mg/dL Calcium (8.4-10.2) mg/dL HDL Cholesterol 65.20 H (40.00-60.00) mg/dL 09/28/24 09/28/24 09/28/24 Range/Units 06:16 07:29 07:29 WBC 10.8 H (3.8-10.6) k/uL RBC 3.33 L (4.30-5.90) m/uL Hgb 10.7 L (13.0-17.5) gm/dL Hct 31.3 L (39.0-53.0) % Sodium 131 L (137-145) mmol/L Potassium 3.4 L (3.5-5.1) mmol/L Chloride 91 L (98-107) mmol/L Carbon Dioxide 31 H (22-30) mmol/L BUN 35 H (9-20) mg/dL Creatinine 4.35 H (0.66-1.25) mg/dL Glucose 169 H (74-99) mg/dL POC Glucose (mg/dL) 173 H (70-110) mg/dL Calcium 8.3 L (8.4-10.2) mg/dL HDL Cholesterol (40.00-60.00) mg/dL 09/28/24 Range/Units 11:42 WBC (3.8-10.6) k/uL RBC (4.30-5.90) m/uL Hgb (13.0-17.5) gm/dL Hct (39.0-53.0) % Sodium (137-145) mmol/L Potassium (3.5-5.1) mmol/L Chloride (98-107) mmol/L Carbon Dioxide (22-30) mmol/L BUN (9-20) mg/dL Creatinine (0.66-1.25) mg/dL Glucose (74-99) mg/dL POC Glucose (mg/dL) 170 H (70-110) mg/dL Calcium (8.4-10.2) mg/dL HDL Cholesterol (40.00-60.00) mg/dL Assessment and Plan Assessment: 1. End-stage renal disease maintained on hemodialysis on Thursday schedule. 2. Pneumonia maintained on antibiotics. 3. Diabetes mellitus. 4. Hypertension with chronic kidney disease. Exacerbated by steroids. 5. Acute/Subacute CVA- neurology following. 6. A-fib with RVR Plan: Hemodialysis in a.m.
--- NOTE | 2024-09-28 14:04 | P.PN ---
Subjective Progress Note Date: 09/28/24 Principal diagnosis: Bronchitis, syncope. This is a 79-year-old male with history of end-stage renal disease, on hemodialysis Thursday and Thursday the patient himself is a very poor historian, most of the information obtained was from his daughter at bedside. The last couple of weeks, patient has been coughing and at times passing out, he had almost a dozen episodes of cough induced syncope. And never smoked, he has no history of COPD, his chest x-ray and CT of the chest done on this admission showed moderate bilateral pleural effusions with associated atelectasis. Chest x-ray showed mild interstitial prominence. Patient had his dialysis today and has CT of the chest done after dialysis clearly showed evidence of moderate- sized bilateral pleural effusions not clearly appreciated on the chest x-ray. Labs today showed negative screening for influenza A, influenza B, RSV and COVID-19. CBC was noted to be unremarkable. Hemoglobin is a bit low at 10 basi c metabolic profile is normal BUN is 43 creatinine 5.31, BNP level is 2840. After reviewing the patient chart, apparently the patient was recently in the hospital from and he was discharged on diagnosed as having tracheobronchitis, pulmonary was not consulted on his last admission. However patient was discharged home on doxycycline at 100 mg p.o. twice daily. That did not seem to make any difference on his cough and did not make any difference on his cough induced syncope. Echocardiogram on his last admission showed no evidence of LV dysfunction, no evidence of significant valvular heart disease and there was no evidence of pulmonary hypertension. His ejection fraction was 55 to 60% The patient is seen today September 23, 2024 in follow-up on the regular medical floor. He is currently sitting up at the bedside having breakfast. Awake and alert in no acute distress. Maintaining good O2 saturations in the 90s on room air. He did receive hemodialysis yesterday with 2 L removed. White count 14.6. Hemoglobin 11.4. Platelets 309. Sodium 135. Potassium 4.4. Bicarb 25. BUN 39. Creatinine 4.2. Glucose 247. Procalcitonin negative at 0.21. He is currently on DuoNeb and elations, Solu-Medrol, antibiotics in the form of ceftriaxone and azithromycin. The patient is seen today September 26, 2024 in follow-up on the selective care unit. He is currently resting in bed. Maintaining O2 saturations in the 90s on room air. Has been afebrile. Hemodynamically stable. Remains with a left- sided arm and leg drift. Follow-up CT scan of the brain revealed a 0.4 cm petechial hemorrhage within the left parietal infarct. Increasing edema in the right parietal infarct has effacement of the [place]. No midline shift or significant ventricle compression. Old occipital watershed infarcts bilaterally. Neurology is following closely. White count 10.2. Hemoglobin 11.5. Platelets 278. Sodium 136. Potassium 3.9. Bicarb 27. BUN 61. Creatinine 5.22. Glucose 140. He remains on a Cardizem drip at 5 mg/h. Heparin placed on hold. Continued on Keppra. Progress note dated September 27, 2024. 79-year-old male who is seen today in room 370. Currently, the patient is receiving D5W at 50 cc an hour. The patient is currently on room air. He did have hemodialysis today. 2 L of fluid was removed. He is resting comfortably in bed. No acute distress. No respiratory distress. Current labs include a white count 10.6, hemoglobin 10.6, hematocrit 31.1, and a platelet count of 267,000. Sodium 135, potassium 3.6, chlorides 99, CO2 27, anion gap 9, BUN 64, creatinine 5.63. Glucose is 90. Calcium is 8.1. The scan of the brain shows an overall similar examination with evolving right MCA territory infarct and trace petechial hemorrhage. No midline shift. Remote injuries to the bilateral frontal lobes and left temporal lobe with encephalomalacia. Progress note dated September 28, 2024. 79-year-old male seen in room 370. The patient is currently on room air. Saturations are 100%. The patient is receiving D5W at 50 cc an hour. The patient had hemodialysis yesterday. 2 L was removed. Currently, he is resting comfortably in no distress. Family members are in the room with the patient. Current labs include a white count of 10.8, hemoglobin 10.7, hematocrit 31.3, and a normal platelet count of 253,000. Sodium 131, potassium 3.4, chlorides 91, CO2 31, anion gap 9, BUN 35, and creatinine 4.35. Glucose is 170. Calcium is 8.3. Objective - Vital Signs Vital signs: Vital Signs Temp 97.5 F L 09/28/24 08:00 Pulse 96 09/28/24 12:32 Resp 18 09/28/24 08:00 BP 202/88 09/28/24 08:00 Pulse Ox 100 09/28/24 08:00 FiO2 60 09/26/24 16:00 Intake & Output 09/27/24 09/28/24 09/28/24 18:59 06:59 18:59 Intake Total 2400 20 118 Output Total 2725 Balance -325 20 118 Weight 84.5 kg Intake: IV 20 Invasive Line 3 10 Invasive Line 4 10 Oral 0 118 Hemodialysis 2400 Output: Urine 325 Hemodialysis 400 Hemodialysis Net Amount 2000 Other: Voiding Method Indwelling Catheter Indwelling Catheter Indwelling Catheter # Bowel Movements 1 1 - Exam No acute distress, oriented 3. HEENT examination is grossly unremarkable. Mucous membranes are moist. No oral lesions. Neck supple. Full range of motion. No adenopathy thyromegaly or neck vein distention. Cardiovascular examination reveals an irregular rhythm and rate. S1-S2 normal. No S3 or S4. No discernible murmur noted. Lungs reveal bibasilar crackles. No wheezes or rhonchi. Breath sounds are equal bilaterally. The patient is currently on room air. Abdomen soft bowel sounds are heard. No masses or tenderness. Extremities are intact. No cyanosis clubbing or edema. Skin is without rash or lesion. Neurologic examination reveals left-sided weakness. - Labs CBC & Chem 7: 09/28/24 07:29 09/28/24 07:29 Labs: Abnormal Lab Results - Last 24 Hours (Table) 09/27/24 09/27/24 09/27/24 Range/Units 07:13 16:23 20:39 WBC (3.8-10.6) k/uL RBC (4.30-5.90) m/uL Hgb (13.0-17.5) gm/dL Hct (39.0-53.0) % Sodium (137-145) mmol/L Potassium (3.5-5.1) mmol/L Chloride (98-107) mmol/L Carbon Dioxide (22-30) mmol/L BUN (9-20) mg/dL Creatinine (0.66-1.25) mg/dL Glucose (74-99) mg/dL POC Glucose (mg/dL) 137 H 142 H (70-110) mg/dL Calcium (8.4-10.2) mg/dL HDL Cholesterol 65.20 H (40.00-60.00) mg/dL 09/28/24 09/28/24 09/28/24 Range/Units 06:16 07:29 07:29 WBC 10.8 H (3.8-10.6) k/uL RBC 3.33 L (4.30-5.90) m/uL Hgb 10.7 L (13.0-17.5) gm/dL Hct 31.3 L (39.0-53.0) % Sodium 131 L (137-145) mmol/L Potassium 3.4 L (3.5-5.1) mmol/L Chloride 91 L (98-107) mmol/L Carbon Dioxide 31 H (22-30) mmol/L BUN 35 H (9-20) mg/dL Creatinine 4.35 H (0.66-1.25) mg/dL Glucose 169 H (74-99) mg/dL POC Glucose (mg/dL) 173 H (70-110) mg/dL Calcium 8.3 L (8.4-10.2) mg/dL HDL Cholesterol (40.00-60.00) mg/dL 09/28/24 Range/Units 11:42 WBC (3.8-10.6) k/uL RBC (4.30-5.90) m/uL Hgb (13.0-17.5) gm/dL Hct (39.0-53.0) % Sodium (137-145) mmol/L Potassium (3.5-5.1) mmol/L Chloride (98-107) mmol/L Carbon Dioxide (22-30) mmol/L BUN (9-20) mg/dL Creatinine (0.66-1.25) mg/dL Glucose (74-99) mg/dL POC Glucose (mg/dL) 170 H (70-110) mg/dL Calcium (8.4-10.2) mg/dL HDL Cholesterol (40.00-60.00) mg/dL Assessment and Plan Assessment: Ischemic stroke involving the right MCA territory predominantly on the right frontal lobe and insular cortex. Follow-up CT scan today revealed questionable petechial hemorrhage over the right frontal parietal. Cough induced syncope. Bilateral pleural effusions/most likely secondary to chronic renal failure or diastolic congestive heart failure, patient had normal LV function based on his last echocardiogram. Benign essential hypertension. Dyslipidemia. History of CVA. Diabetes with diabetic peripheral neuropathy. History of seizures. End-stage renal disease, on hemodialysis Thursday schedule. Plan: Plan dated September 27, 2024. The patient is seen today in room 370. He is resting comfortably in bed. He is on room air. He is getting D5W at 50 cc an hour. The patient did have hemodialysis today. 2 L of fluid was removed. Labs, x-rays, and all medications are reviewed. Repeat CT scan of the brain, showed findings that were similar to prior CT scan. Nothing new was noted. Prognosis is guarded. Plan dated September 28, 2024. The patient is seen again in room 370. The patient had hemodialysis yesterday. Labs, x-rays, and medications are reviewed. The patient is currently on room air. Saturations are 100%. He is receiving D5W at 50 cc an hour. We will co irina to follow make recommendations along the way. Prognosis is guarded. Time with Patient: Less than 30
[2024-09-28] MEDS: HEPARIN SODIUM,PORCINE 5,000 UNIT/ML 1 ML VIAL SQ SCH (14:13)
[2024-09-28] MEDS: ASPIRIN 300 MG SUPP RECTAL SCH (14:13)
--- NOTE | 2024-09-28 14:40 | P.PN ---
Subjective Progress Note Date: 09/28/24 I am following up with the patient and per the nurse he walks test yesterday. Per family members he is about the same. Objective - Vital Signs Vital signs: Vital Signs Temp 97.5 F L 09/28/24 08:00 Pulse 96 09/28/24 12:32 Resp 18 09/28/24 08:00 BP 202/88 09/28/24 08:00 Pulse Ox 100 09/28/24 08:00 FiO2 60 09/26/24 16:00 Intake & Output 09/27/24 09/28/24 09/28/24 18:59 06:59 18:59 Intake Total 2400 20 118 Output Total 2725 Balance -325 20 118 Weight 84.5 kg Intake: IV 20 Invasive Line 3 10 Invasive Line 4 10 Oral 0 118 Hemodialysis 2400 Output: Urine 325 Hemodialysis 400 Hemodialysis Net Amount 2000 Other: Voiding Method Indwelling Catheter Indwelling Catheter Indwelling Catheter # Bowel Movements 1 1 - Exam General: Lying in bed and is not in acute distress. Neuro: Somewhat limited because of his cooperation. Patient is mildly drowsy but is awake both voice. He is oriented to self. His was translating from American to Nigerien to help with the physical examination. He followed few simple commands such as showing a thumbs up and moving extremities. Language is limited Pupils are round 3 mm reactive to light. Patient has left facial weakness. Has dysarthria. Motor is the strength as he is moving the right upper and lower more than the left. - Labs CBC & Chem 7: 09/28/24 07:29 09/28/24 07:29 Labs: Abnormal Lab Results - Last 24 Hours (Table) 09/27/24 09/27/24 09/27/24 Range/Units 07:13 16:23 20:39 WBC (3.8-10.6) k/uL RBC (4.30-5.90) m/uL Hgb (13.0-17.5) gm/dL Hct (39.0-53.0) % Sodium (137-145) mmol/L Potassium (3.5-5.1) mmol/L Chloride (98-107) mmol/L Carbon Dioxide (22-30) mmol/L BUN (9-20) mg/dL Creatinine (0.66-1.25) mg/dL Glucose (74-99) mg/dL POC Glucose (mg/dL) 137 H 142 H (70-110) mg/dL Calcium (8.4-10.2) mg/dL HDL Cholesterol 65.20 H (40.00-60.00) mg/dL 09/28/24 09/28/24 09/28/24 Range/Units 06:16 07:29 07:29 WBC 10.8 H (3.8-10.6) k/uL RBC 3.33 L (4.30-5.90) m/uL Hgb 10.7 L (13.0-17.5) gm/dL Hct 31.3 L (39.0-53.0) % Sodium 131 L (137-145) mmol/L Potassium 3.4 L (3.5-5.1) mmol/L Chloride 91 L (98-107) mmol/L Carbon Dioxide 31 H (22-30) mmol/L BUN 35 H (9-20) mg/dL Creatinine 4.35 H (0.66-1.25) mg/dL Glucose 169 H (74-99) mg/dL POC Glucose (mg/dL) 173 H (70-110) mg/dL Calcium 8.3 L (8.4-10.2) mg/dL HDL Cholesterol (40.00-60.00) mg/dL 09/28/24 Range/Units 11:42 WBC (3.8-10.6) k/uL RBC (4.30-5.90) m/uL Hgb (13.0-17.5) gm/dL Hct (39.0-53.0) % Sodium (137-145) mmol/L Potassium (3.5-5.1) mmol/L Chloride (98-107) mmol/L Carbon Dioxide (22-30) mmol/L BUN (9-20) mg/dL Creatinine (0.66-1.25) mg/dL Glucose (74-99) mg/dL POC Glucose (mg/dL) 170 H (70-110) mg/dL Calcium (8.4-10.2) mg/dL HDL Cholesterol (40.00-60.00) mg/dL Assessment and Plan Assessment: * Acute ischemic stroke involving the right MCA territory predominantly in the right frontal lobe and insular cortex. Event appears embolic in nature. * Questionable small petechial hemorrhage over the right fronto/parietal on the repeat CT of the head today. She reported on the left but reading radiologist placed the area on the right is seems more right frontal parietal and there is truly hemorrhage versus surround normal hernandez/white matter--repeat CT head is stable. * New diagnosis of paroxysmal atrial fibrillation. 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 * Cognitive impairment * Diabetes * ESRD on hemodialysis * Hypertension * Hyperlipidemia Plan: * MRI of the brain without contrast revealed acute/subacute CVA involving the right MCA territory, predominantly in the right frontal lobe and insular cortex. Remote injuries of the left parietal lobe and left inferior temporal lobe with encephalomalacia. Nonspecific white matter changes, likely secondary to small vessel ischemic disease. I personally reviewed MRI agree with the findings. Also evidence of old encephalomalacia involving right frontal and parietal region. Also evidence of some hemosiderin deposition in the left parietal region. Dr. Bustillo Discussed MRI findings with stroke neurologist Dr. Centeno * CT of the head on 09/26/2024 is reported as 0.4 cm petechial hemorrhage within the left parietal infarct may be present. I personally reviewed the CT and t he hyperintensity was very small and its over the right frontal/parietal but mostly frontal could be artifact. I personally discussed this finding with a second opinion Dr. Jose on 09/27/2024 and he agrees. * Repeat CT head on 09/27/2024: Overall similar examination with evolving right MCA territory infarct and trace petechial hemorrhage. No midline shift. Remote injury of bilateral frontal lobe and left temporal with encephalomalacia. * 2-D echo with bubble study to rule out PFO. Per Dr. Bustillo, patient may need KARISHMA. * Cardiology input appreciated. Patient had loop recorder interrogation and patient was found to have paroxysmal atrial fibrillation. * Hold off anticoagulation for now because of moderate to large-sized stroke. Recommend starting anticoagulation within possible 5 days to avoid hemorrhagic conversion and risk outweigh benefit. * CTA head and neck showed: No evidence of large vessel occlusion. Negative CTA of the neck. * Lipid panel: Triglyceride 75, cholesterol is 106, LDL is 25. Continue Lipitor 80 mg. * Hemoglobin A1c 7.3 * Recommend normotensive blood pressure. * Continue aspirin 300 mg rectally Is resumed today since repeat CT head is stable and the benefit outweigh risks. * Patient has dysphagia and needs further evaluation and if he continues maybe needs PEG tube. * Continue Keppra 500 mg twice daily Neuro checks every 2 hours. * Telemetry monitoring rule out any arrhythmia * PT, OT, speech therapy * DVT prophylaxis: Heparin 5000 units subcu every 12 hours. The plan is discussed with his family members ( and his daughter) as well his nurse. Time with Patient: Less than 30
[2024-09-28] MEDS: POTASSIUM CHLORIDE 10 MEQ in WATER FOR INJECTION 1 100ML.BAG IVPB SCH (14:45)
--- NOTE | 2024-09-28 15:07 | P.PN ---
Subjective Progress Note Date: 09/28/24 This is a 79-year-old male with a past medical history significant for coronary artery disease, hypertension, hyperlipidemia, CVA, diabetes, and chronic kidney disease. Patient follows in the office with Dr. Fischer. We have been asked to see the patient in consultation for CVA and loop recorder interrogation. Patient examined at the bedside. Patient was hospitalized earlier this month for cough induced syncope. Patient was discharged home and presented back to the hospital with similar symptoms. While in the hospital he developed left-sided weakness and was found to be positive for CVA. Patient currently denies chest pain or pressure. Denies shortness of breath. The patient was previously prescribed Eliquis for unknown reason however he was not currently taking this. Family has denied any history of atrial fibrillation or PE/DVT. Patient is currently maintaining sinus mechanism. Loop recorder interrogation performed revealing episodes of atrial fibrillation. DIAGNOSTICS: - EKG reveals sinus mechanism with no signs of acute ischemia - Chest xray hazy interstitial markings seen bilaterally may relate to infectious/inflammatory process. - Laboratory data: WBC 10.2. Hemoglobin 12.0. Platelet count 298. Sodium 134. Potassium 4.1. BUN 49. Creatinine 4.27. - Current home cardiac medications include aspirin 162.5 mg daily, Lipitor 20 mg at night, Imdur 120 mg daily, midodrine 10 mg 3 times a day as needed, Procardia 60 mg twice a day, Demadex 20 mg daily, carvedilol 12.5 mg twice a day - Most recent echocardiogram obtained in August 2024 revealed ejection fraction 55 to 60% with no significant valvular disease - Cardiac catheterization history: 2008 revealing approximately 40%, mid LAD 50%, diagonal 50%, circumflex 50%, and nondominant RCA with no significant stenosis -Patient underwent Lexiscan stress test in March 2024 which was negative for ischemia 09/26/2024 Was seen and examined resting comfortably in bed. [place] any chest discomfort or shortness of breath. Continues to have issues with speech and swallowing. Facial droop noted. Awaiting swallow eval. Anticoagulation has not been initiated at this point. CT scan done this morning showed a 0.4 cm petechial hemorrhage within the left parietal infarct may be present, increasing edema in the right parietal infarct as effacement of the sulci, no midline shift or significant ventricle compression, old occipital watershed infarcts bilaterally. We are awaiting input from neurology in regards to anticoagulation. 09/27/2024 Patient was seen and examined resting comfortably in bed. He was seen by ne urology yesterday and anticoagulation remains on hold due to moderate size stroke as well as questionable petechial hemorrhage. Plan for repeat CT of the head. 09/28/2024 Patient mated to atrial fibrillation RVR and was started on Cardizem drip. Patient's blood pressure was noticed to be fluctuating today. PHYSICAL EXAM: VITAL SIGNS: Reviewed. GENERAL: Well-developed in no acute distress. HEENT: Head is normocephalic. Pupils are equal, round. Sclerae anicteric. Mucous membranes of the mouth are moist. Neck supple. No JVD or thyromegaly LUNGS: Respirations even and unlabored. Lungs essentially clear to auscultation bilaterally. HEART: Regular rate and rhythm. S1 and S2 heard. Systolic murmur noted ABDOMEN: Soft. Nondistended. Nontender. EXTREMITIES: Left-sided weakness. Normal range of motion. No clubbing or cyanosis. Peripheral pulses intact. No lower extremity edema NEUROLOGIC: Awake and alert. ASSESSMENT: Acute/subacute CVA involving right MCA territory New onset atrial fibrillation, Recent diagnosis and hospitalization for tussive syncope Nonobstructive CAD, per cath 2008 History of loop recorder implantation, [employer], 2020 Chronic kidney disease on hemodialysis Hypertension Hyperlipidemia History of CVA Diabetes PLAN: Patient mated to A-fib RVR today. Will start Cardizem drip. Increase rate to 15 mg daily. Discontinue Procardia XL. Discontinue hydralazine. Continue Coreg 12.5 g twice daily. If blood pressure is high, consider adding labetalol instead of hydralazine. Continue telemetry monitoring As per neurology, they would like to wait for 5 days to resume anticoagulation because of the large infarct burden. The bubble study was nonconclusive. Reevaluate tomorrow if there is a clinical indication for KARISHMA. Further recommendations pending patient course Objective - Vital Signs Vital signs: Vital Signs Temp 97.5 F L 09/28/24 08:00 Pulse 124 H 09/28/24 14:00 Resp 18 09/28/24 14:00 BP 122/64 09/28/24 12:00 Pulse Ox 99 09/28/24 12:00 FiO2 60 09/26/24 16:00 Intake & Output 09/27/24 09/28/24 09/28/24 18:59 06:59 18:59 Intake Total 2400 20 118 Output Total 2725 Balance -325 20 118 Weight 84.5 kg Intake: IV 20 Invasive Line 3 10 Invasive Line 4 10 Oral 0 118 Hemodialysis 2400 Output: Urine 325 Hemodialysis 400 Hemodialysis Net Amount 2000 Other: Voiding Method Indwelling Catheter Indwelling Catheter Indwelling Catheter # Bowel Movements 1 1 - Labs CBC & Chem 7: 09/28/24 07:29 09/28/24 07:29 Labs: Abnormal Lab Results - Last 24 Hours (Table) 09/27/24 09/27/24 09/27/24 Range/Units 07:13 16:23 20:39 WBC (3.8-10.6) k/uL RBC (4.30-5.90) m/uL Hgb (13.0-17.5) gm/dL Hct (39.0-53.0) % Sodium (137-145) mmol/L Potassium (3.5-5.1) mmol/L Chloride (98-107) mmol/L Carbon Dioxide (22-30) mmol/L BUN (9-20) mg/dL Creatinine (0.66-1.25) mg/dL Glucose (74-99) mg/dL POC Glucose (mg/dL) 137 H 142 H (70-110) mg/dL Calcium (8.4-10.2) mg/dL HDL Cholesterol 65.20 H (40.00-60.00) mg/dL 09/28/24 09/28/24 09/28/24 Range/Units 06:16 07:29 07:29 WBC 10.8 H (3.8-10.6) k/uL RBC 3.33 L (4.30-5.90) m/uL Hgb 10.7 L (13.0-17.5) gm/dL Hct 31.3 L (39.0-53.0) % Sodium 131 L (137-145) mmol/L Potassium 3.4 L (3.5-5.1) mmol/L Chloride 91 L (98-107) mmol/L Carbon Dioxide 31 H (22-30) mmol/L BUN 35 H (9-20) mg/dL Creatinine 4.35 H (0.66-1.25) mg/dL Glucose 169 H (74-99) mg/dL POC Glucose (mg/dL) 173 H (70-110) mg/dL Calcium 8.3 L (8.4-10.2) mg/dL HDL Cholesterol (40.00-60.00) mg/dL 09/28/24 Range/Units 11:42 WBC (3.8-10.6) k/uL RBC (4.30-5.90) m/uL Hgb (13.0-17.5) gm/dL Hct (39.0-53.0) % Sodium (137-145) mmol/L Potassium (3.5-5.1) mmol/L Chloride (98-107) mmol/L Carbon Dioxide (22-30) mmol/L BUN (9-20) mg/dL Creatinine (0.66-1.25) mg/dL Glucose (74-99) mg/dL POC Glucose (mg/dL) 170 H (70-110) mg/dL Calcium (8.4-10.2) mg/dL HDL Cholesterol (40.00-60.00) mg/dL
[2024-09-28 16:18] LABS: Glucose,Whole Blood 133 mg/dL (70-110)
[2024-09-28 20:32] LABS: Glucose,Whole Blood 157 mg/dL (70-110)
[2024-09-28] MEDS: MORPHINE SULFATE 2 MG/ML SYRINGE IVP PRN (23:47)
[2024-09-29 06:02] LABS: Glucose,Whole Blood 128 mg/dL (70-110)
[2024-09-29 07:09] LABS: HCT 31.6 % (39.0-53.0); HGB 10.6 gm/dL (13.0-17.5); MCHC 33.5 g/dL (31.0-37.0); MCV 95.5 fL (80.0-100.0); Mean Platelet Volume 7.3; Platelet Count 262 k/uL (150-450); RBC 3.31 m/uL (4.30-5.90); RDW 12.9 % (11.5-15.5); WBC 9.6 k/uL (3.8-10.6)
[2024-09-29 07:46] LABS: African American GFR (CKD) 11 (>60 ml/min/1.73 sqM); Anion Gap 9 mmol/L; Blood Urea Nitrogen 43 mg/dL (9-20); Calcium 8.2 mg/dL (8.4-10.2); Carbon Dioxide 26 mmol/L (22-30); Chloride 94 mmol/L (98-107); Glucose 130 mg/dL (74-99); Non-African American GFR(CKD) 9 (>60 ml/min/1.73 sqM); Potassium 3.5 mmol/L (3.5-5.1); Sodium 129 mmol/L (137-145)
[2024-09-29 11:27] LABS: Glucose,Whole Blood 123 mg/dL (70-110)
--- NOTE | 2024-09-29 11:47 | P.PN ---
Subjective Progress Note Date: 09/29/24 Principal diagnosis: Hospital course: Patient is a 79-year-old male with ESRD, presenting for syncope induced by cough. Patient is poor historian. He was recently admitted for similar symptoms on September 12 and subsequently discharged with doxycycline for treatment of tracheobronchitis for mucous plugging. Since this time patient has had persistent symptoms with sputum production. Denying fever, chills, shortness of breath, chest pain, palpitations at this time. Labs completed in emergency room significant for WBC 6.7, hemoglobin 10.0, sodium 132, potassium 5.0, bicarb 20, BUN 43, creatinine 5.31, glucose 260, A1c 7.3, ALP 146, proBNP 2840, viral respiratory panel is negative. EKG done in the ER independently interpreted showed sinus rhythm heart rate of 60, no ST segment elevation or depression seen, no T-wave inversions seen. Chest x-ray done independently interpreted in the ER showed hazy interstitial markings bilaterally 09/23/2024 Patient seen and examined at bedside. No acute events overnight. Will discontinue antibiotics and steroids. Today's labs significant for WBC 14.6, BUN 38, creatinine 4.2, glucose ranging from 416-209, procalcitonin negative, blood cultures pending with no growth thus far. 09/24/2024 Patient seen and examined at bedside. Overnight patient began having strokelike symptoms at around 4 AM as witnessed by in the room with new onset left- sided weakness, left-sided facial droop and slurred speech with difficulty swallowing. Code stroke was called. Initial CT head with no evidence of acute intracranial process, later MRI of brain with subacute/acute CVA involving right MCA predominantly right frontal lobe and insular cortex. Patient given 300 mg of aspirin rectally as could not tolerate oral swallowing. Neurology consulted. Dialysis today. Today's labs WBC 12.0, hemoglobin 11.3, sodium 133, BUN 78, creatinine 5.24, glucose 166. 09/25. Patient seen and examined. Patient is moving his left upper extremity more than yesterday, also lifting his left lower extremity. Family thinks that patient has improved compared to yesterday 09/26/24: Patient evaluated at bedside today. Patient's family mentioned that his strength is better but currently the patient is very tired as he was up all night coughing. Labs show hemoglobin 11.5, sodium 136, BUN 61, creatinine 5.22. Brain CT shows 0.4 cm petechial hemorrhage within the left parietal infarct may be present, increasing edema in the right parietal infarct as effacement of the sulk I with no midline shift or significant ventricle compression, old occipital watershed infarcts bilaterally. 09/27/24: Patient examined today. Dysphagia evaluation by LAND EXAMINER showed poor t oleration of PO trials exhibiting severe coughing with 2 attempts, continue strict NPO. Labs today show hemoglobin 10.6, sodium 135, BUN 64, creatinine 5.63. EEG done yesterday shows abnormal routine EEG, background slowing with history of mild encephalopathy, no focal slowing/epileptiform discharge/seizure. Hemodialysis today. 09/28/24: Patient evaluated at bedside. Patient had hemodialysis yesterday, 2L was removed. Labs today show WBC 10.8, hemoglobin 10.7, sodium 131, potassium 3.4, bicarb 31, BUN 35, creatinine 4.35. Repeat CT Brain showed overall similar examination with evolving right MCA territory infarct and trace petechial hemorrhage, no midline shift, Remote injuries to bilateral frontal lobes and left temporal lobe with encephalomalacia. 09/29/24: Patient seen and examined. Hemodialysis today. Labs today show hemoglobin 10.6, sodium 129, BUN 43, creatinine 5.34. Review of systems: Pertinent positives and negatives as discussed in HPI, a complete review of systems was performed and all other systems are negative. Vitals: Signs Reviewed Physical examination: General: nontoxic, no distress, appears at stated age Derm: warm, dry, intact Head: atraumatic, normocephalic, symmetric Eyes: Eye reacting to light, bilateral right gaze Mouth: no lip lesion, mucus membranes moist Cardiovascular: S1 S2 reg, no murmur Lungs: CTA bilateral, no rhonchi, no rales, no accessory muscle use Abdominal: soft, non-tender to palpataion Extremities: No cyanosis, clubbing, or pedal edema. Neuro: Mild left-sided facial droop, left upper extremity strength 3/5, left lower extremity 3/5 at this time. 5/5 right side upper and lower extremities Psych: well appearing, appropriate affect Assessment/Plan: Patient is a 79-year-old male with ESRD(TTS), presenting for cough induced syncope. He has been admitted for respiratory distress. The patient then had a CODE STROKE and he was found to have an acute CVA due to new onset atrial fibrillation. Brain CT showed petechial hemorrhage. Obtain bubble study. 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 # New onset paroxysmal atrial fibrillation currently in NSR MRI brain with subacute CVA involving right MCA predominantly right frontal lobe and insular cortex Loop recorder interrogation showed new onset atrial fibrillation Brain CT shows 0.4 cm petechial hemorrhage within the left parietal infarct may be present, increasing edema in right parietal infarct as effacement of the sulci with no midline shift or significant ventricle compression, old occipital watershed infarcts bilaterally EEG done yesterday shows abnormal routine EEG, background slowing with history of mild encephalopathy, no focal slowing/epileptiform discharge/seizure Repeat CT Brain showed overall similar examination with evolving right MCA territory infarct and trace petechial hemorrhage, no midline shift. Remote injuries to bilateral frontal lobes and left temporal lobe with encephalomalacia Dysphagia evaluation by LAND EXAMINER showed poor toleration of PO trials exhibiting severe coughing with 2 attempts, continue strict NPO If patient doesn't pass speech evaluation consider PEG tube Continue IV Cardizem 15 mg daily Continue Keppra 500 mg twice daily, Lipitor 80 mg Continue Aspirin 300 mg rectally and Heparin 5000 unit SQ Q12HR Cardiology following, bubble study was nonconclusive, reevaluation for clinical indication for KARISHMA Neurology following, recommending to hold anticoagulation for 5 days because of large infarct burden # Respiratory distress # Cough induced syncope CT chest findings of moderate bilateral pleural effusions with associated atelectasis, no focal consolidation Continue bronchodilators Encourage incentive spirometry Pulmonology following # ESRD Continue lisinopril per nephrology Hemodialysis Thursday schedule # Diabetes mellitus Low-dose insulin, ACHS protocol Chronic Medical Conditions #Hypertension hold for now #Peripheral neuropathyresume home medication #Hx of CVAas mentioned above F: None E: Replete as required N: Consistent carbohydrate diet DVT prophylaxis: Heparin 5000 units SQ every 12 hours Attestation I have seen and examined this patient with my resident , discussed the same with the resident/ELISE, and agree with the dictator's assessment and plan as written Dr. Emmanuel medina Objective - Vital Signs Vital signs: Vital Signs Temp 98.0 F 09/28/24 21:18 Pulse 64 09/29/24 08:16 Resp 18 09/29/24 04:33 BP 144/66 09/29/24 04:33 Pulse Ox 97 01/02/25 04:33 FiO2 60 09/26/24 16:00 Intake & Output 09/28/24 09/29/24 09/29/24 18:59 06:59 18:59 Intake Total 138.25 71.583 Balance 138.25 71.583 Weight 85.5 kg Intake: Intake, IV Titration 71.583 Amount Diltiazem 125 mg In 71.583 Sodium Chloride 0.9% 100 ml @ 15 MG/HR 15 mls/hr IV .Q8H20M [facility] Rx#: [id number] Oral 118 Other: Voiding Method Indwelling Catheter Indwelling Catheter # Voids 1 # Bowel Movements 1 4 - Labs CBC & Chem 7: 10/01/24 07:50 10/01/24 07:50 Labs: Abnormal Lab Results - Last 24 Hours (Table) 09/27/24 09/28/24 09/28/24 Range/Units 07:13 07:29 11:42 RBC (4.30-5.90) m/uL Hgb (13.0-17.5) gm/dL Hct (39.0-53.0) % Sodium 131 L (137-145) mmol/L Potassium 3.4 L (3.5-5.1) mmol/L Chloride 91 L (98-107) mmol/L Carbon Dioxide 31 H (22-30) mmol/L BUN 35 H (9-20) mg/dL Creatinine 4.35 H (0.66-1.25) mg/dL Glucose 169 H (74-99) mg/dL POC Glucose (mg/dL) 170 H (70-110) mg/dL Calcium 8.3 L (8.4-10.2) mg/dL HDL Cholesterol 65.20 H (40.00-60.00) mg/dL 09/28/24 09/28/24 09/29/24 Range/Units 16:17 20:22 06:01 RBC (4.30-5.90) m/uL Hgb (13.0-17.5) gm/dL Hct (39.0-53.0) % Sodium (137-145) mmol/L Potassium (3.5-5.1) mmol/L Chloride (98-107) mmol/L Carbon Dioxide (22-30) mmol/L BUN (9-20) mg/dL Creatinine (0.66-1.25) mg/dL Glucose (74-99) mg/dL POC Glucose (mg/dL) 133 H 157 H 128 H (70-110) mg/dL Calcium (8.4-10.2) mg/dL HDL Cholesterol (40.00-60.00) mg/dL 09/29/24 09/29/24 Range/Units 06:35 06:35 RBC 3.31 L (4.30-5.90) m/uL Hgb 10.6 L (13.0-17.5) gm/dL Hct 31.6 L (39.0-53.0) % Sodium 129 L (137-145) mmol/L Potassium (3.5-5.1) mmol/L Chloride 94 L (98-107) mmol/L Carbon Dioxide (22-30) mmol/L BUN 43 H (9-20) mg/dL Creatinine 5.34 H (0.66-1.25) mg/dL Glucose 130 H (74-99) mg/dL POC Glucose (mg/dL) (70-110) mg/dL Calcium 8.2 L (8.4-10.2) mg/dL HDL Cholesterol (40.00-60.00) mg/dL
--- NOTE | 2024-09-29 12:02 | P.PN ---
Subjective Patient is seen for follow-up for end-stage renal disease. Patient is seen on hemodialysis. Family present at bedside. Patient remains on Cardizem drip. Heart rate in the 60s. Received morphine and is quite sleepy today Objective - Vital Signs Vital signs: Vital Signs Temp 98.3 F 09/29/24 08:00 Pulse 64 09/29/24 11:28 Resp 18 09/29/24 08:00 BP 136/63 09/29/24 08:00 Pulse Ox 97 09/29/24 08:00 FiO2 60 09/26/24 16:00 Intake & Output 09/28/24 09/29/24 09/29/24 18:59 06:59 18:59 Intake Total 138.25 71.583 Balance 138.25 71.583 Weight 85.5 kg Intake: Intake, IV Titration 20.25 71.583 Amount Diltiazem 125 mg In 20.25 71.583 Sodium Chloride 0.9% 100 ml @ 15 MG/HR 15 mls/hr IV .Q8H20M [facility] Rx#: [id number] Oral 118 Other: Voiding Method Indwelling Catheter Indwelling Catheter Indwelling Catheter # Voids 1 # Bowel Movements 1 4 - Exam patient is awake, comfortable, no acute distress. Left forearm AV fistula functioning well Abdomen is soft nontender Examination of lower extremities shows no significant edema - Labs CBC & Chem 7: 09/29/24 06:35 09/29/24 06:35 Labs: Abnormal Lab Results - Last 24 Hours (Table) 09/28/24 09/28/24 09/29/24 Range/Units 16:17 20:22 06:01 RBC (4.30-5.90) m/uL Hgb (13.0-17.5) gm/dL Hct (39.0-53.0) % Sodium (137-145) mmol/L Chloride (98-107) mmol/L BUN (9-20) mg/dL Creatinine (0.66-1.25) mg/dL Glucose (74-99) mg/dL POC Glucose (mg/dL) 133 H 157 H 128 H (70-110) mg/dL Calcium (8.4-10.2) mg/dL 09/29/24 09/29/24 09/29/24 Range/Units 06:35 06:35 11:23 RBC 3.31 L (4.30-5.90) m/uL Hgb 10.6 L (13.0-17.5) gm/dL Hct 31.6 L (39.0-53.0) % Sodium 129 L (137-145) mmol/L Chloride 94 L (98-107) mmol/L BUN 43 H (9-20) mg/dL Creatinine 5.34 H (0.66-1.25) mg/dL Glucose 130 H (74-99) mg/dL POC Glucose (mg/dL) 123 H (70-110) mg/dL Calcium 8.2 L (8.4-10.2) mg/dL Assessment and Plan Assessment: 1. End-stage renal disease maintained on hemodialysis on Thursday schedule. 2. Pneumonia maintained on antibiotics. 3. Diabetes mellitus. 4. Hypertension with chronic kidney disease. Exacerbated by steroids. 5. Acute/Subacute CVA- neurology following. 6. A-fib with RVR Plan: Hemodialysis today. Adjust sodium bath on dialysis.
--- NOTE | 2024-09-29 13:42 | P.PN ---
Subjective Progress Note Date: 09/29/24 Principal diagnosis: Bronchitis, syncope. This is a 79-year-old male with history of end-stage renal disease, on hemodialysis Thursday and Thursday the patient himself is a very poor historian, most of the information obtained was from his daughter at bedside. The last couple of weeks, patient has been coughing and at times passing out, he had almost a dozen episodes of cough induced syncope. And never smoked, he has no history of COPD, his chest x-ray and CT of the chest done on this admission showed moderate bilateral pleural effusions with associated atelectasis. Chest x-ray showed mild interstitial prominence. Patient had his dialysis today and has CT of the chest done after dialysis clearly showed evidence of moderate- sized bilateral pleural effusions not clearly appreciated on the chest x-ray. Labs today showed negative screening for influenza A, influenza B, RSV and COVID-19. CBC was noted to be unremarkable. Hemoglobin is a bit low at 10 basi c metabolic profile is normal BUN is 43 creatinine 5.31, BNP level is 2840. After reviewing the patient chart, apparently the patient was recently in the hospital from and he was discharged on diagnosed as having tracheobronchitis, pulmonary was not consulted on his last admission. However patient was discharged home on doxycycline at 100 mg p.o. twice daily. That did not seem to make any difference on his cough and did not make any difference on his cough induced syncope. Echocardiogram on his last admission showed no evidence of LV dysfunction, no evidence of significant valvular heart disease and there was no evidence of pulmonary hypertension. His ejection fraction was 55 to 60% The patient is seen today September 23, 2024 in follow-up on the regular medical floor. He is currently sitting up at the bedside having breakfast. Awake and alert in no acute distress. Maintaining good O2 saturations in the 90s on room air. He did receive hemodialysis yesterday with 2 L removed. White count 14.6. Hemoglobin 11.4. Platelets 309. Sodium 135. Potassium 4.4. Bicarb 25. BUN 39. Creatinine 4.2. Glucose 247. Procalcitonin negative at 0.21. He is currently on DuoNeb and elations, Solu-Medrol, antibiotics in the form of ceftriaxone and azithromycin. The patient is seen today September 26, 2024 in follow-up on the selective care unit. He is currently resting in bed. Maintaining O2 saturations in the 90s on room air. Has been afebrile. Hemodynamically stable. Remains with a left- sided arm and leg drift. Follow-up CT scan of the brain revealed a 0.4 cm petechial hemorrhage within the left parietal infarct. Increasing edema in the right parietal infarct has effacement of the Clint. No midline shift or significant ventricle compression. Old occipital watershed infarcts bilaterally. Neurology is following closely. White count 10.2. Hemoglobin 11.5. Platelets 278. Sodium 136. Potassium 3.9. Bicarb 27. BUN 61. Creatinine 5.22. Glucose 140. He remains on a Cardizem drip at 5 mg/h. Heparin placed on hold. Continued on Keppra. Progress note dated September 27, 2024. 79-year-old male who is seen today in room 370. Currently, the patient is receiving D5W at 50 cc an hour. The patient is currently on room air. He did have hemodialysis today. 2 L of fluid was removed. He is resting comfortably in bed. No acute distress. No respiratory distress. Current labs include a white count 10.6, hemoglobin 10.6, hematocrit 31.1, and a platelet count of 267,000. Sodium 135, potassium 3.6, chlorides 99, CO2 27, anion gap 9, BUN 64, creatinine 5.63. Glucose is 90. Calcium is 8.1. The scan of the brain shows an overall similar examination with evolving right MCA territory infarct and trace petechial hemorrhage. No midline shift. Remote injuries to the bilateral frontal lobes and left temporal lobe with encephalomalacia. Progress note dated September 28, 2024. 79-year-old male seen in room 370. The patient is currently on room air. Saturations are 100%. The patient is receiving D5W at 50 cc an hour. The patient had hemodialysis yesterday. 2 L was removed. Currently, he is resting comfortably in no distress. Family members are in the room with the patient. Current labs include a white count of 10.8, hemoglobin 10.7, hematocrit 31.3, and a normal platelet count of 253,000. Sodium 131, potassium 3.4, chlorides 91, CO2 31, anion gap 9, BUN 35, and creatinine 4.35. Glucose is 170. Calcium is 8.3. Progress note dated September 29, 2024. 79-year-old male seen again in room 370. The patient is currently undergoing hemodialysis, with a goal of removal of 2 L. The patient is on room air. He is on a Cardizem drip at 15 mg an hour. He is getting D5W at 50 cc an hour. Current labs include a white count 9.6, hemoglobin 10.6, hematocrit 31.6, and a platelet count of 262,000. Sodium 129, potassium 3.5, chloride 94, CO2 26, BUN 43, creatinine 5.34. Glucose 123. Calcium 8.2. Objective - Vital Signs Vital signs: Vital Signs Temp 98.3 F 09/29/24 08:00 Pulse 64 09/29/24 11:28 Resp 18 09/29/24 08:00 BP 136/63 09/29/24 08:00 Pulse Ox 97 09/29/24 08:00 FiO2 60 09/26/24 16:00 Intake & Output 09/28/24 09/29/24 09/29/24 18:59 06:59 18:59 Intake Total 138.25 71.583 Balance 138.25 71.583 Weight 85.5 kg Intake: Intake, IV Titration 20.25 71.583 Amount Diltiazem 125 mg In 20.25 71.583 Sodium Chloride 0.9% 100 ml @ 15 MG/HR 15 mls/hr IV .Q8H20M [facility] Rx#: [id number] Oral 118 Other: Voiding Method Indwelling Catheter Indwelling Catheter Indwelling Catheter # Voids 1 # Bowel Movements 1 4 - Exam No acute distress, oriented 3. HEENT examination is grossly unremarkable. Mucous membranes are moist. No oral lesions. Neck supple. Full range of motion. No adenopathy thyromegaly or neck vein distention. Cardiovascular examination reveals an irregular rhythm and rate. S1-S2 normal. No S3 or S4. No discernible murmur noted. Lungs reveal bibasilar crackles. No wheezes or rhonchi. Breath sounds are equal bilaterally. The patient is currently on room air. Abdomen soft bowel sounds are heard. No masses or tenderness. Extremities are intact. No cyanosis clubbing or edema. Skin is without rash or lesion. Neurologic examination reveals left-sided weakness. - Labs CBC & Chem 7: 09/29/24 06:35 09/29/24 06:35 Labs: Abnormal Lab Results - Last 24 Hours (Table) 09/28/24 09/28/24 09/29/24 Range/Units 16:17 20:22 06:01 RBC (4.30-5.90) m/uL Hgb (13.0-17.5) gm/dL Hct (39.0-53.0) % Sodium (137-145) mmol/L Chloride (98-107) mmol/L BUN (9-20) mg/dL Creatinine (0.66-1.25) mg/dL Glucose (74-99) mg/dL POC Glucose (mg/dL) 133 H 157 H 128 H (70-110) mg/dL Calcium (8.4-10.2) mg/dL 09/29/24 09/29/24 09/29/24 Range/Units 06:35 06:35 11:23 RBC 3.31 L (4.30-5.90) m/uL Hgb 10.6 L (13.0-17.5) gm/dL Hct 31.6 L (39.0-53.0) % Sodium 129 L (137-145) mmol/L Chloride 94 L (98-107) mmol/L BUN 43 H (9-20) mg/dL Creatinine 5.34 H (0.66-1.25) mg/dL Glucose 130 H (74-99) mg/dL POC Glucose (mg/dL) 123 H (70-110) mg/dL Calcium 8.2 L (8.4-10.2) mg/dL Assessment and Plan Assessment: Ischemic stroke involving the right MCA territory predominantly on the right frontal lobe and insular cortex. Follow-up CT scan today revealed questionable petechial hemorrhage over the right frontal parietal. Cough induced syncope. Bilateral pleural effusions/most likely secondary to chronic renal failure or diastolic congestive heart failure, patient had normal LV function based on his last echocardiogram. Benign essential hypertension. Dyslipidemia. History of CVA. Diabetes with diabetic peripheral neuropathy. History of seizures. End-stage renal disease, on hemodialysis Thursday schedule. Plan: Plan dated September 27, 2024. The patient is seen today in room 370. He is resting comfortably in bed. He is on room air. He is getting D5W at 50 cc an hour. The patient did have hemodialysis today. 2 L of fluid was removed. Labs, x-rays, and all medications are reviewed. Repeat CT scan of the brain, showed findings that were similar to prior CT scan. Nothing new was noted. Prognosis is guarded. Plan dated September 28, 2024. The patient is seen again in room 370. The patient had hemodialysis yesterday. Labs, x-rays, and medications are reviewed. The patient is currently on room air. Saturations are 100%. He is receiving D5W at 50 cc an hour. We will continue to follow make recommendations along the way. Prognosis is guarded. Plan dated September 29, 2024. The patient is seen today in room 370. The patient is currently undergoing hemodialysis. The plan is to remove 2 L of fluid today. The patient is on room air. He is getting D5W at 50 cc an hour and Cardizem drip at 15 mg an hour. Labs, x-rays, and all medications are reviewed. The patient is overall prognosis remains guarded. We will continue to follow the patient and make recommendations where appropriate. Time with Patient: Less than 30
--- NOTE | 2024-09-29 13:52 | P.PN ---
Subjective Progress Note Date: 09/29/24 This is a 79-year-old male with a past medical history significant for coronary artery disease, hypertension, hyperlipidemia, CVA, diabetes, and chronic kidney disease. Patient follows in the office with Dr. Fischer. We have been asked to see the patient in consultation for CVA and loop recorder interrogation. Patient examined at the bedside. Patient was hospitalized earlier this month for cough induced syncope. Patient was discharged home and presented back to the hospital with similar symptoms. While in the hospital he developed left-sided weakness and was found to be positive for CVA. Patient currently denies chest pain or pressure. Denies shortness of breath. The patient was previously prescribed Eliquis for unknown reason however he was not currently taking this. Family has denied any history of atrial fibrillation or PE/DVT. Patient is currently maintaining sinus mechanism. Loop recorder interrogation performed revealing episodes of atrial fibrillation. DIAGNOSTICS: - EKG reveals sinus mechanism with no signs of acute ischemia - Chest xray hazy interstitial markings seen bilaterally may relate to infectious/inflammatory process. - Laboratory data: WBC 10.2. Hemoglobin 12.0. Platelet count 298. Sodium 134. Potassium 4.1. BUN 49. Creatinine 4.27. - Current home cardiac medications include aspirin 162.5 mg daily, Lipitor 20 mg at night, Imdur 120 mg daily, midodrine 10 mg 3 times a day as needed, Procardia 60 mg twice a day, Demadex 20 mg daily, carvedilol 12.5 mg twice a day - Most recent echocardiogram obtained in August 2024 revealed ejection fraction 55 to 60% with no significant valvular disease - Cardiac catheterization history: 2008 revealing approximately 40%, mid LAD 50%, diagonal 50%, circumflex 50%, and nondominant RCA with no significant stenosis -Patient underwent Lexiscan stress test in March 2024 which was negative for ischemia 09/26/2024 Was seen and examined resting comfortably in bed. Nu[place] any chest discomfort or shortness of breath. Continues to have issues with speech and swallowing. Facial droop noted. Awaiting swallow eval. Anticoagulation has not been initiated at this point. CT scan done this morning showed a 0.4 cm petechial hemorrhage within the left parietal infarct may be present, increasing edema in the right parietal infarct as effacement of the sulci, no midline shift or significant ventricle compression, old occipital watershed infarcts bilaterally. We are awaiting input from neurology in regards to anticoagulation. 09/27/2024 Patient was seen and examined resting comfortably in bed. He was seen by [facility] urology yesterday and anticoagulation remains on hold due to moderate size stroke as well as questionable petechial hemorrhage. Plan for repeat CT of the head. 09/28/2024 Patient mated to atrial fibrillation RVR and was started on Cardizem drip. Patient's blood pressure was noticed to be fluctuating today. 09/29/24 Patient seen and examined. Repeat blood work reveals hemoglobin 10.6, BUN 43 creatinine 5.34, potassium 3.5 and sodium 129. Blood pressure 136/63, heart rate in the 60s, pulse ox 97 percent on room air. Telemetry remains atrial fibrillation running in the 70s. Patient is currently on IV Cardizem at 15 mg/h. Patient is quite sleepy today. We will plan to start patient on full anticoagulation once cleared by neurology. No plan for KARISHMA. PHYSICAL EXAM: VITAL SIGNS: Reviewed. GENERAL: Well-developed in no acute distress. HEENT: Head is normocephalic. Pupils are equal, round. Sclerae anicteric. Mucous membranes of the mouth are moist. Neck supple. No JVD or thyromegaly LUNGS: Respirations even and unlabored. Lungs essentially clear to auscultation bilaterally. HEART: Regular rate and rhythm. S1 and S2 heard. Systolic murmur noted ABDOMEN: Soft. Nondistended. Nontender. EXTREMITIES: Left-sided weakness. Normal range of motion. No clubbing or cyanosis. Peripheral pulses intact. No lower extremity edema NEUROLOGIC: Awake and alert. ASSESSMENT: Acute/subacute CVA involving right MCA territory New onset atrial fibrillation, currently rate controlled Recent diagnosis and hospitalization for tussive syncope Nonobstructive CAD, per cath 2008 History of loop recorder implantation, [employer], 2020 Chronic kidney disease on hemodialysis Hypertension Hyperlipidemia History of CVA Diabetes End-stage renal disease on hemodialysis PLAN: Increase Coreg to 25 mg twice daily and wean patient off Cardizem drip Continue telemetry monitoring As per neurology, they would like to wait for 5 days to resume anticoagulation because of the large infarct burden. No need for KARISHMA. Further recommendations pending patient course Nurse practitioner note has been reviewed, I agree with documented findings and plan of care. Patient was seen and examined. Objective - Vital Signs Vital signs: Vital Signs Temp 98.0 F 09/28/24 21:18 Pulse 64 09/29/24 08:16 Resp 18 09/29/24 04:33 BP 144/66 09/29/24 04:33 Pulse Ox 97 09/29/24 04:33 FiO2 60 09/26/24 16:00 Intake & Output 09/28/24 09/29/24 09/29/24 18:59 06:59 18:59 Intake Total 138.25 71.583 Balance 138.25 71.583 Weight 85.5 kg Intake: Intake, IV Titration 71.583 Amount Diltiazem 125 mg In 71.583 Sodium Chloride 0.9% 100 ml @ 15 MG/HR 15 mls/hr IV .Q8H20M [facility] Rx#: [id number] Oral 118 Other: Voiding Method Indwelling Catheter Indwelling Catheter # Voids 1 # Bowel Movements 1 4 - Labs CBC & Chem 7: 09/29/24 06:35 09/29/24 06:35 Labs: Abnormal Lab Results - Last 24 Hours (Table) 09/27/24 09/28/24 09/28/24 Range/Units 07:13 11:42 16:17 RBC (4.30-5.90) m/uL Hgb (13.0-17.5) gm/dL Hct (39.0-53.0) % Sodium (137-145) mmol/L Chloride (98-107) mmol/L BUN (9-20) mg/dL Creatinine (0.66-1.25) mg/dL Glucose (74-99) mg/dL POC Glucose (mg/dL) 170 H 133 H (70-110) mg/dL Calcium (8.4-10.2) mg/dL HDL Cholesterol 65.20 H (40.00-60.00) mg/dL 09/28/24 09/29/24 09/29/24 Range/Units 20:22 06:01 06:35 RBC 3.31 L (4.30-5.90) m/uL Hgb 10.6 L (13.0-17.5) gm/dL Hct 31.6 L (39.0-53.0) % Sodium (137-145) mmol/L Chloride (98-107) mmol/L BUN (9-20) mg/dL Creatinine (0.66-1.25) mg/dL Glucose (74-99) mg/dL POC Glucose (mg/dL) 157 H 128 H (70-110) mg/dL Calcium (8.4-10.2) mg/dL HDL Cholesterol (40.00-60.00) mg/dL 09/29/24 Range/Units 06:35 RBC (4.30-5.90) m/uL Hgb (13.0-17.5) gm/dL Hct (39.0-53.0) % Sodium 129 L (137-145) mmol/L Chloride 94 L (98-107) mmol/L BUN 43 H (9-20) mg/dL Creatinine 5.34 H (0.66-1.25) mg/dL Glucose 130 H (74-99) mg/dL POC Glucose (mg/dL) (70-110) mg/dL Calcium 8.2 L (8.4-10.2) mg/dL HDL Cholesterol (40.00-60.00) mg/dL
--- NOTE | 2024-09-29 14:50 | P.PN ---
Subjective Progress Note Date: 10/17/23 I am following up with the patient and seems that the patient was agitated overnight and was given morphine according to the patient's nurse. As a result he was sleepy in the morning and as a result he did not have a good swallow evaluation. Per the no new neurological issues. Objective - Vital Signs Vital signs: Vital Signs Temp 98.2 F 09/29/24 13:53 Pulse 63 09/29/24 13:53 Resp 16 09/29/24 13:53 BP 125/56 09/29/24 13:53 Pulse Ox 97 09/29/24 08:00 FiO2 60 09/26/24 16:00 Intake & Output 09/28/24 09/29/24 09/29/24 18:59 06:59 18:59 Intake Total 138.25 71.583 529 Output Total 4500 Balance 138.25 71.583 -3971 Weight 85.5 kg Intake: Intake, IV Titration 20.25 71.583 29 Amount Diltiazem 125 mg In 20.25 71.583 29 Sodium Chloride 0.9% 100 ml @ 15 MG/HR 15 mls/hr IV .Q8H20M [facility] Rx#: [id number] Oral 118 Hemodialysis 500 Output: Hemodialysis 2500 Hemodialysis Net Amount 2000 Other: Voiding Method Indwelling Catheter Indwelling Catheter Indwelling Catheter # Voids 1 # Bowel Movements 1 4 - Exam General: Lying in bed and is not in acute distress. Neuro: Somewhat limited because of his cooperation. Patient is mildly drowsy but is awake both voice. He is oriented to self. His was translating from Macedonian to Italian to help with the physical examination. He followed few simple commands such as showing a thumbs up and moving extremities. Language is limited Pupils are round 3 mm reactive to light. Patient has left facial weakness. Has dysarthria. Motor is the strength as he is moving the right upper and lower more than the left. - Labs CBC & Chem 7: 09/29/24 06:35 09/29/24 06:35 Labs: Abnormal Lab Results - Last 24 Hours (Table) 09/28/24 09/28/24 09/29/24 Range/Units 16:17 20:22 06:01 RBC (4.30-5.90) m/uL Hgb (13.0-17.5) gm/dL Hct (39.0-53.0) % Sodium (137-145) mmol/L Chloride (98-107) mmol/L BUN (9-20) mg/dL Creatinine (0.66-1.25) mg/dL Glucose (74-99) mg/dL POC Glucose (mg/dL) 133 H 157 H 128 H (70-110) mg/dL Calcium (8.4-10.2) mg/dL 09/29/24 09/29/24 09/29/24 Range/Units 06:35 06:35 11:23 RBC 3.31 L (4.30-5.90) m/uL Hgb 10.6 L (13.0-17.5) gm/dL Hct 31.6 L (39.0-53.0) % Sodium 129 L (137-145) mmol/L Chloride 94 L (98-107) mmol/L BUN 43 H (9-20) mg/dL Creatinine 5.34 H (0.66-1.25) mg/dL Glucose 130 H (74-99) mg/dL POC Glucose (mg/dL) 123 H (70-110) mg/dL Calcium 8.2 L (8.4-10.2) mg/dL Assessment and Plan Assessment: * Acute ischemic stroke involving the right MCA territory predominantly in the right frontal lobe and insular cortex. Event appears embolic in nature. * Questionable small petechial hemorrhage over the right fronto/parietal on the repeat CT of the head today. She reported on the left but reading radiologist placed the area on the right is seems more right frontal parietal and there is truly hemorrhage versus surround normal hernandez/white matter--repeat CT head is stable. * Dysphagia due to above * New diagnosis of paroxysmal atrial fibrillation. 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 * Cognitive impairment * Diabetes * ESRD on hemodialysis * Hypertension * Hyperlipidemia Plan: * MRI of the brain without contrast revealed acute/subacute CVA involving the right MCA territory, predominantly in the right frontal lobe and insular cortex. Remote injuries of the left parietal lobe and left inferior temporal lobe with encephalomalacia. Nonspecific white matter changes, likely seconda ry to small vessel ischemic disease. I personally reviewed MRI agree with the findings. Also evidence of old encephalomalacia involving right frontal and parietal region. Also evidence of some hemosiderin deposition in the left parietal region. Dr. Bustillo Discussed MRI findings with stroke neurologist Dr. Centeno * CT of the head on 09/26/2024 is reported as 0.4 cm petechial hemorrhage within the left parietal infarct may be present. I personally reviewed the CT and the hyperintensity was very small and its over the right frontal/parietal but mostly frontal could be artifact. I personally discussed this finding with a second opinion Dr. Jose on 09/27/2024 and he agrees. * Repeat CT head on 09/27/2024: Overall similar examination with evolving right MCA territory infarct and trace petechial hemorrhage. No midline shift. Remote injury of bilateral frontal lobe and left temporal with encephalomalacia. * 2-D echo with bubble study to rule out PFO. Per Dr. Bustillo, patient may need KARISHMA. * Cardiology input appreciated. Patient had loop recorder interrogation and patient was found to have paroxysmal atrial fibrillation. * Hold off anticoagulation for now because of moderate to large-sized stroke. Recommend starting anticoagulation within possible 4 days to avoid hemorrhagic conversion and risk outweigh benefit. * CTA head and neck showed: No evidence of large vessel occlusion. Negative CTA of the neck. * Lipid panel: Triglyceride 75, cholesterol is 106, LDL is 25. Continue Lipitor 80 mg. * Hemoglobin A1c 7.3 * Recommend normotensive blood pressure. * Continue aspirin 300 mg rectally. * Patient has dysphagia and needs further evaluation and if he continues maybe needs PEG tube. * Continue Keppra 500 mg twice daily Neuro checks every 2 hours. * Telemetry monitoring rule out any arrhythmia * PT, OT, speech therapy * DVT prophylaxis: Heparin 5000 units subcu every 12 hours. The plan is discussed with his as well his nurse. Time with Patient: Less than 30
[2024-09-29 16:58] LABS: Glucose,Whole Blood 178 mg/dL (70-110)
[2024-09-29] MEDS: carvediloL 12.5 MG TAB PO SCH (17:53)
[2024-09-29 20:45] LABS: Glucose,Whole Blood 171 mg/dL (70-110)
[2024-09-30] MEDS: ACETAMINOPHEN SUPPOSITORY 650 MG SUPP RECTAL PRN (05:48)
[2024-09-30 06:17] LABS: Glucose,Whole Blood 168 mg/dL (70-110)
[2024-09-30 06:39] LABS: HCT 30.9 % (39.0-53.0); HGB 10.5 gm/dL (13.0-17.5); MCH 32.3 pg (25.0-35.0); MCHC 34.1 g/dL (31.0-37.0); MCV 94.7 fL (80.0-100.0); Mean Platelet Volume 7.4; Platelet Count 263 k/uL (150-450); RBC 3.26 m/uL (4.30-5.90); RDW 12.7 % (11.5-15.5); WBC 7.6 k/uL (3.8-10.6)
[2024-09-30 06:49] LABS: African American GFR (CKD) 15 (>60 ml/min/1.73 sqM); Anion Gap 8 mmol/L; Blood Urea Nitrogen 24 mg/dL (9-20); Calcium 8.6 mg/dL (8.4-10.2); Carbon Dioxide 28 mmol/L (22-30); Chloride 91 mmol/L (98-107); Glucose 163 mg/dL (74-99); Non-African American GFR(CKD) 13 (>60 ml/min/1.73 sqM); Potassium 3.5 mmol/L (3.5-5.1); Sodium 127 mmol/L (137-145)
--- NOTE | 2024-09-30 11:09 | FL ---
EXAMINATION TYPE: FL barium swallow w video DATE OF EXAM: 09/30/2024 COMPARISON: NONE HISTORY: Coughing bedside TECHNIQUE: Fluoroscopy. FINDINGS: Fluoroscopic guidance was provided for the procedure performed in conjunction with the [facility] pathology department. Please see complete report forthcoming from the Speech Pathology departmen t. Various consistencies from thin liquid to solids were administered. Fluoroscopy time 2 minutes 8 seconds. Number of images: 293.0 Aspiration was evident within liquids and appear to be present with nectar thick liquids. Penetration was present with honey thick consistency. No significant pooling was observed in the vallecula. There is marked delay of bolus formation and swallowing. IMPRESSION: 1. Aspiration with thin liquids and suspected with nectar thick liquids. 2. Poor bolus transfer. [facility], , 09/30/2024 11:07 AM
[2024-09-30 11:39] LABS: Glucose,Whole Blood 144 mg/dL (70-110)
--- NOTE | 2024-09-30 11:54 | P.PN ---
Subjective Progress Note Date: 09/30/24 Principal diagnosis: Hospital course: Patient is a 79-year-old male with ESRD, presenting for syncope induced by cough. Patient is poor historian. He was recently admitted for similar symptoms on September 12 and subsequently discharged with doxycycline for treatment of tracheobronchitis for mucous plugging. Since this time patient has had persistent symptoms with sputum production. Denying fever, chills, shortness of breath, chest pain, palpitations at this time. Labs completed in emergency room significant for WBC 6.7, hemoglobin 10.0, sodium 132, potassium 5.0, bicarb 20, BUN 43, creatinine 5.31, glucose 260, A1c 7.3, ALP 146, proBNP 2840, viral respiratory panel is negative. EKG done in the ER independently interpreted showed sinus rhythm heart rate of 60, no ST segment elevation or depression seen, no T-wave inversions seen. Chest x-ray done independently interpreted in the ER showed hazy interstitial markings bilaterally 09/23/2024 Patient seen and examined at bedside. No acute events overnight. Will discontinue antibiotics and steroids. Today's labs significant for WBC 14.6, BUN 38, creatinine 4.2, glucose ranging from 416-209, procalcitonin negative, blood cultures pending with no growth thus far. 09/24/2024 Patient seen and examined at bedside. Overnight patient began having strokelike symptoms at around 4 AM as witnessed by in the room with new onset left- sided weakness, left-sided facial droop and slurred speech with difficulty swallowing. Code stroke was called. Initial CT head with no evidence of acute intracranial process, later MRI of brain with subacute/acute CVA involving right MCA predominantly right frontal lobe and insular cortex. Patient given 300 mg of aspirin rectally as could not tolerate oral swallowing. Neurology consulted. Dialysis today. Today's labs WBC 12.0, hemoglobin 11.3, sodium 133, BUN 78, creatinine 5.24, glucose 166. 09/25. Patient seen and examined. Patient is moving his left upper extremity more than yesterday, also lifting his left lower extremity. Family thinks that patient has improved compared to yesterday 09/26/24: Patient evaluated at bedside today. Patient's family mentioned that his strength is better but currently the patient is very tired as he was up all night coughing. Labs show hemoglobin 11.5, sodium 136, BUN 61, creatinine 5.22. Brain CT shows 0.4 cm petechial hemorrhage within the left parietal infarct may be present, increasing edema in the right parietal infarct as effacement of the sulk I with no midline shift or significant ventricle compression, old occipital watershed infarcts bilaterally. 09/27/24: Patient examined today. Dysphagia evaluation by INFORMATION SYSTEMS SUPERVISOR showed poor t oleration of PO trials exhibiting severe coughing with 2 attempts, continue strict NPO. Labs today show hemoglobin 10.6, sodium 135, BUN 64, creatinine 5.63. EEG done yesterday shows abnormal routine EEG, background slowing with history of mild encephalopathy, no focal slowing/epileptiform discharge/seizure. Hemodialysis today. 09/28/24: Patient evaluated at bedside. Patient had hemodialysis yesterday, 2L was removed. Labs today show WBC 10.8, hemoglobin 10.7, sodium 131, potassium 3.4, bicarb 31, BUN 35, creatinine 4.35. Repeat CT Brain showed overall similar examination with evolving right MCA territory infarct and trace petechial hemorrhage, no midline shift, Remote injuries to bilateral frontal lobes and left temporal lobe with encephalomalacia. 09/29/24: Patient seen and examined. Hemodialysis today. Labs today show hemoglobin 10.6, sodium 129, BUN 43, creatinine 5.34. 09/30/24: Patient evaluated today. Vitals show BP is 153/69. Labs today show Hb 10.5, Na 127, BUN 24, creatinine 4.15. EKG done yesterday independently interpreted as Atrial fibrillation with Rapid ventricular response. Hemodialysis yesterday, 2L of fluid was removed. Patient underwent the videofluoroscopic swallow study today. Patient's family was counseled about the importance of PEG tube. Review of systems: Pertinent positives and negatives as discussed in HPI, a complete review of systems was performed and all other systems are negative. Vitals: Signs Reviewed Physical examination: General: nontoxic, no distress, appears at stated age Derm: warm, dry, intact Head: atraumatic, normocephalic, symmetric Eyes: Eye reacting to light, bilateral right gaze Mouth: no lip lesion, mucus membranes moist Cardiovascular: S1 S2 reg, no murmur Lungs: CTA bilateral, no rhonchi, no rales, no accessory muscle use Abdominal: soft, non-tender to palpataion Extremities: No cyanosis, clubbing, or pedal edema. Neuro: Mild left-sided facial droop, left upper extremity strength 3/5, left lower extremity 3/5 at this time. 5/5 right side upper and lower extremities Psych: well appearing, appropriate affect Assessment/Plan: Patient is a 79-year-old male with ESRD(TTS), presenting for cough induced syncope. He has been admitted for respiratory distress. The patient then had a CODE STROKE and he was found to have an acute CVA due to new onset atrial fibrillation. Brain CT showed petechial hemorrhage. Obtain bubble study. 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 # New onset Atrial fibrillation, Rapid ventricular response MRI brain with subacute CVA involving right MCA predominantly right frontal lobe and insular cortex Loop recorder interrogation showed new onset atrial fibrillation Brain CT shows 0.4 cm petechial hemorrhage within the left parietal infarct may be present, increasing edema in right parietal infarct as effacement of the sulci with no midline shift or significant ventricle compression, old occipital watershed infarcts bilaterally EEG done yesterday shows abnormal routine EEG, background slowing with history of mild encephalopathy, no focal slowing/epileptiform discharge/seizure Repeat CT Brain showed overall similar examination with evolving right MCA territory infarct and trace petechial hemorrhage, no midline shift. Remote injuries to bilateral frontal lobes and left temporal lobe with encephalomalacia Bubble study was inconclusive Dysphagia evaluation by INFORMATION SYSTEMS SUPERVISOR showed poor toleration of PO trials exhibiting severe coughing with 2 attempts, continue strict NPO Videofluoroscopic swallow study shows aspiration with thin liquids and suspected with nectar thick liquids, poor bolus transfer Increase Coreg to 25 mg PO BID Wean IV Cardizem 15 mg daily Continue Keppra 500 mg twice daily, Lipitor 80 mg Continue Aspirin 300 mg rectally and Heparin 5000 unit SQ Q12HR Cardiology following Neurology following, recommending to hold anticoagulation for 5 days because of large infarct burden Consult surgery for PEG tube placement # Respiratory distress # Cough induced syncope CT chest findings of moderate bilateral pleural effusions with associated atelectasis, no focal consolidation Continue bronchodilators Encourage incentive spirometry Pulmonology following # ESRD # Hyponatremia Hemodialysis Thursday schedule Adjust sodium bath on dialysis # Diabetes mellitus Low-dose insulin, ACHS protocol Chronic Medical Conditions #Hypertension #Peripheral neuropathyresume home medication #Hx of CVAas mentioned above F: None E: Replete as required N: Consistent carbohydrate diet DVT prophylaxis: Heparin 5000 units SQ every 12 hours Attestation I have seen and examined this patient with my resident , discussed the same with the resident/ELISE, and agree with the dictator's assessment and plan as written Dr. Emmanuel medina Objective - Vital Signs Vital signs: Vital Signs Temp 98.8 F 09/29/24 21:53 Pulse 74 09/30/24 03:25 Resp 16 09/30/24 03:25 BP 153/69 09/30/24 03:25 Pulse Ox 97 09/30/24 03:25 FiO2 60 09/26/24 16:00 Intake & Output 09/29/24 09/30/24 09/30/24 18:59 06:59 18:59 Intake Total 569 37.333 Output Total 4850 Balance -4281 37.333 Weight 85.5 kg 83.5 kg Intake: Intake, IV Titration 69 37.333 Amount Diltiazem 125 mg In 69 37.333 Sodium Chloride 0.9% 100 ml @ 15 MG/HR 15 mls/hr IV .Q8H20M [facility] Rx#: [id number] Hemodialysis 500 Output: Urine 350 Hemodialysis 2500 Hemodialysis Net Amount 2000 Other: Voiding Method Indwelling Catheter Indwelling Catheter # Bowel Movements 1 - Labs CBC & Chem 7: 10/01/24 07:50 10/01/24 07:50 Labs: Abnormal Lab Results - Last 24 Hours (Table) 09/29/24 09/29/24 09/29/24 Range/Units 11:23 16:57 20:43 RBC (4.30-5.90) m/uL Hgb (13.0-17.5) gm/dL Hct (39.0-53.0) % Sodium (137-145) mmol/L Chloride (98-107) mmol/L BUN (9-20) mg/dL Creatinine (0.66-1.25) mg/dL Glucose (74-99) mg/dL POC Glucose (mg/dL) 123 H 178 H 171 H (70-110) mg/dL 09/30/24 09/30/24 09/30/24 Range/Units 06:13 06:13 06:16 RBC 3.26 L (4.30-5.90) m/uL Hgb 10.5 L (13.0-17.5) gm/dL Hct 30.9 L (39.0-53.0) % Sodium 127 L (137-145) mmol/L Chloride 91 L (98-107) mmol/L BUN 24 H (9-20) mg/dL Creatinine 4.15 H (0.66-1.25) mg/dL Glucose 163 H (74-99) mg/dL POC Glucose (mg/dL) 168 H (70-110) mg/dL
--- NOTE | 2024-09-30 13:38 | P.PN ---
Subjective Progress Note Date: 09/30/24 I am following-up with patient and daughter is at bedside and states his strength is improving but has failed the swallow test and they were told he needs tube feeding. Objective - Vital Signs Vital signs: Vital Signs Temp 98.2 F 09/30/24 08:00 Pulse 64 09/30/24 12:44 Resp 18 09/30/24 08:00 BP 157/57 09/30/24 08:00 Pulse Ox 100 09/30/24 08:00 FiO2 60 09/26/24 16:00 Intake & Output 09/29/24 09/30/24 09/30/24 18:59 06:59 18:59 Intake Total 569 37.333 Output Total 4850 0 Balance -4281 37.333 0 Weight 85.5 kg 83.5 kg Intake: Intake, IV Titration 69 37.333 Amount Diltiazem 125 mg In 69 37.333 Sodium Chloride 0.9% 100 ml @ 15 MG/HR 15 mls/hr IV .Q8H20M [facility] Rx#: [id number] Hemodialysis 500 Output: Urine 350 0 Hemodialysis 2500 Hemodialysis Net Amount 2000 Other: Voiding Method Indwelling Catheter Indwelling Catheter Indwelling Catheter # Bowel Movements 1 - Exam General: Sitting up in bed and is not in acute distress. Neuro: Somewhat limited because of his cooperation. Patient is mildly drowsy but is awake both voice. He is oriented to self. His was translating from Stateless to Serbian to help with the physical examination. He followed few simple commands such as showing a thumbs up and moving extremities. Language is limited Pupils are round 3 mm reactive to light. Patient has left facial weakness. Has dysarthria. Motor is the strength as he is moving the right upper and lower more than the left. - Labs CBC & Chem 7: 09/30/24 06:13 09/30/24 06:13 Labs: Abnormal Lab Results - Last 24 Hours (Table) 09/29/24 09/29/24 09/30/24 Range/Units 16:57 20:43 06:13 RBC 3.26 L (4.30-5.90) m/uL Hgb 10.5 L (13.0-17.5) gm/dL Hct 30.9 L (39.0-53.0) % Sodium (137-145) mmol/L Chloride (98-107) mmol/L BUN (9-20) mg/dL Creatinine (0.66-1.25) mg/dL Glucose (74-99) mg/dL POC Glucose (mg/dL) 178 H 171 H (70-110) mg/dL 09/30/24 09/30/24 09/30/24 Range/Units 06:13 06:16 11:37 RBC (4.30-5.90) m/uL Hgb (13.0-17.5) gm/dL Hct (39.0-53.0) % Sodium 127 L (137-145) mmol/L Chloride 91 L (98-107) mmol/L BUN 24 H (9-20) mg/dL Creatinine 4.15 H (0.66-1.25) mg/dL Glucose 163 H (74-99) mg/dL POC Glucose (mg/dL) 168 H 144 H (70-110) mg/dL Assessment and Plan Assessment: * Acute ischemic stroke involving the right MCA territory predominantly in the right frontal lobe and insular cortex. Event appears embolic in nature. * Questionable small petechial hemorrhage over the right fronto/parietal on the repeat CT of the head today. She reported on the left but reading radiologist placed the area on the right is seems more right frontal parietal and there is truly hemorrhage versus surround normal hernandez/white matter--repeat CT head is stable. * Dysphagia due to above * New diagnosis of paroxysmal atrial fibrillation. 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 * Cognitive impairment * Diabetes * ESRD on hemodialysis * Hypertension * Hyperlipidemia Plan: * MRI of the brain without contrast revealed acute/subacute CVA involving the right MCA territory, predominantly in the right frontal lobe and insular cortex. Remote injuries of the left parietal lobe and left inferior temporal lobe with encephalomalacia. Nonspecific white matter changes, likely secondary to small vessel ischemic disease. I personally reviewed MRI agree with the findings. Also evidence of old encephalomalacia involving right frontal and parietal region. Also evidence of some hemosiderin deposition in the left parietal region. Dr. Bustillo Discussed MRI findings with stroke neurologist Dr. Centeno * CT of the head on 09/26/2024 is reported as 0.4 cm petechial hemorrhage within the left parietal infarct may be present. I personally reviewed the CT and the hyperintensity was very small and its over the right frontal/parietal but mostly frontal could be artifact. I personally discussed this finding with a second opinion Dr. Jose on 09/27/2024 and he agrees. * Repeat CT head on 09/27/2024: Overall similar examination with evolving right MCA territory infarct and trace petechial hemorrhage. No midline shift. Remote injury of bilateral frontal lobe and left temporal with encephal omalacia. * 2-D echo with bubble study to rule out PFO. Per Dr. Bustillo, patient may need KARISHMA. * Cardiology input appreciated. Patient had loop recorder interrogation and patient was found to have paroxysmal atrial fibrillation. * Hold off anticoagulation for now because of moderate to large-sized stroke. Recommend starting anticoagulation within possible 3 days to avoid hemorrhagic conversion and risk outweigh benefit. * CTA head and neck showed: No evidence of large vessel occlusion. Negative CTA of the neck. * Lipid panel: Triglyceride 75, cholesterol is 106, LDL is 25. Continue Lipitor 80 mg. * Hemoglobin A1c 7.3 * Recommend normotensive blood pressure. * Continue aspirin 300 mg rectally. * Patient has dysphagia and needs further evaluation and if he continues maybe needs PEG tube. * Continue Keppra 500 mg twice daily Neuro checks every 2 hours. * Telemetry monitoring rule out any arrhythmia * PT, OT, speech therapy * DVT prophylaxis: Heparin 5000 units subcu every 12 hours. The plan is discussed with his and daughter who are at bedside. Time with Patient: Less than 30
--- NOTE | 2024-09-30 14:32 | P.PN ---
Subjective Progress Note Date: 09/30/24 This is a 79-year-old male with a past medical history significant for coronary artery disease, hypertension, hyperlipidemia, CVA, diabetes, and chronic kidney disease. Patient follows in the office with Dr. Fischer. We have been asked to see the patient in consultation for CVA and loop recorder interrogation. Patient examined at the bedside. Patient was hospitalized earlier this month for cough induced syncope. Patient was discharged home and presented back to the hospital with similar symptoms. While in the hospital he developed left-sided weakness and was found to be positive for CVA. Patient currently denies chest pain or pressure. Denies shortness of breath. The patient was previously prescribed Eliquis for unknown reason however he was not currently taking this. Family has denied any history of atrial fibrillation or PE/DVT. Patient is currently maintaining sinus mechanism. Loop recorder interrogation performed revealing episodes of atrial fibrillation. DIAGNOSTICS: - EKG reveals sinus mechanism with no signs of acute ischemia - Chest xray hazy interstitial markings seen bilaterally may relate to infectious/inflammatory process. - Laboratory data: WBC 10.2. Hemoglobin 12.0. Platelet count 298. Sodium 134. Potassium 4.1. BUN 49. Creatinine 4.27. - Current home cardiac medications include aspirin 162.5 mg daily, Lipitor 20 mg at night, Imdur 120 mg daily, midodrine 10 mg 3 times a day as needed, Procardia 60 mg twice a day, Demadex 20 mg daily, carvedilol 12.5 mg twice a day - Most recent echocardiogram obtained in August 2024 revealed ejection fraction 55 to 60% with no significant valvular disease - Cardiac catheterization history: 2008 revealing approximately 40%, mid LAD 50%, diagonal 50%, circumflex 50%, and nondominant RCA with no significant stenosis -Patient underwent Lexiscan stress test in March 2024 which was negative for ischemia 09/26/2024 Was seen and examined resting comfortably in bed. [place] any chest discomfort or shortness of breath. Continues to have issues with speech and swallowing. Facial droop noted. Awaiting swallow eval. Anticoagulation has not been initiated at this point. CT scan done this morning showed a 0.4 cm petechial hemorrhage within the left parietal infarct may be present, increasing edema in the right parietal infarct as effacement of the sulci, no midline shift or significant ventricle compression, old occipital watershed infarcts bilaterally. We are awaiting input from neurology in regards to anticoagulation. 09/27/2024 Patient was seen and examined resting comfortably in bed. He was seen by ne urology yesterday and anticoagulation remains on hold due to moderate size stroke as well as questionable petechial hemorrhage. Plan for repeat CT of the head. 09/28/2024 Patient mated to atrial fibrillation RVR and was started on Cardizem drip. Patient's blood pressure was noticed to be fluctuating today. 09/29/24 Patient seen and examined. Repeat blood work reveals hemoglobin 10.6, BUN 43 creatinine 5.34, potassium 3.5 and sodium 129. Blood pressure 136/63, heart rate in the 60s, pulse ox 97 percent on room air. Telemetry remains atrial fibrillation running in the 70s. Patient is currently on IV Cardizem at 15 mg/h. Patient is quite sleepy today. We will plan to start patient on full anticoagulation once cleared by neurology. No plan for KARISHMA. 09/30/24 P unfortunately, patient failed swallow evaluation and family is considering tube feeding. atient seen and examined. He is scheduled for modified barium swallow today. Patient has been maintained on Cardizem drip as he is not taking any oral medications. PHYSICAL EXAM: VITAL SIGNS: Reviewed. GENERAL: Well-developed in no acute distress. HEENT: Head is normocephalic. Pupils are equal, round. Sclerae anicteric. Mucous membranes of the mouth are moist. Neck supple. No JVD or thyromegaly LUNGS: Respirations even and unlabored. Lungs essentially clear to auscultation bilaterally. HEART: Regular rate and rhythm. S1 and S2 heard. Systolic murmur noted ABDOMEN: Soft. Nondistended. Nontender. EXTREMITIES: Left-sided weakness. Normal range of motion. No clubbing or cyanosis. Peripheral pulses intact. No lower extremity edema NEUROLOGIC: Awake and alert. ASSESSMENT: Acute/subacute CVA involving right MCA territory New onset atrial fibrillation, currently rate controlled Recent diagnosis and hospitalization for tussive syncope Nonobstructive CAD, per cath 2008 History of loop recorder implantation, [employer], 2020 Chronic kidney disease on hemodialysis Hypertension Hyperlipidemia History of CVA Diabetes End-stage renal disease on hemodialysis PLAN: Continue Cardizem drip until patient can take oral medications Continue patient on Coreg 25 mg twice daily Continue telemetry monitoring As per neurology, they would like to wait for 3 days to resume anticoagulation because of the large infarct burden. No need for KARISHMA. Further recommendations pending patient course Nurse practitioner note has been reviewed, I agree with documented findings and plan of care. Patient was seen and examined. Objective - Vital Signs Vital signs: Vital Signs Temp 98.8 F 09/29/24 21:53 Pulse 60 09/30/24 09:09 Resp 16 09/30/24 03:25 BP 153/69 09/30/24 03:25 Pulse Ox 97 09/30/24 03:25 FiO2 60 09/26/24 16:00 Intake & Output 09/29/24 09/30/24 09/30/24 18:59 06:59 18:59 Intake Total 569 37.333 Output Total 4850 Balance -4281 37.333 Weight 85.5 kg 83.5 kg Intake: Intake, IV Titration 69 37.333 Amount Diltiazem 125 mg In 69 37.333 Sodium Chloride 0.9% 100 ml @ 15 MG/HR 15 mls/hr IV .Q8H20M [facility] Rx#: [id number] Hemodialysis 500 Output: Urine 350 Hemodialysis 2500 Hemodialysis Net Amount 2000 Other: Voiding Method Indwelling Catheter Indwelling Catheter # Bowel Movements 1 - Labs CBC & Chem 7: 09/30/24 06:13 09/30/24 06:13 Labs: Abnormal Lab Results - Last 24 Hours (Table) 09/29/24 09/29/24 09/29/24 Range/Units 11:23 16:57 20:43 RBC (4.30-5.90) m/uL Hgb (13.0-17.5) gm/dL Hct (39.0-53.0) % Sodium (137-145) mmol/L Chloride (98-107) mmol/L BUN (9-20) mg/dL Creatinine (0.66-1.25) mg/dL Glucose (74-99) mg/dL POC Glucose (mg/dL) 123 H 178 H 171 H (70-110) mg/dL 09/30/24 09/30/24 09/30/24 Range/Units 06:13 06:13 06:16 RBC 3.26 L (4.30-5.90) m/uL Hgb 10.5 L (13.0-17.5) gm/dL Hct 30.9 L (39.0-53.0) % Sodium 127 L (137-145) mmol/L Chloride 91 L (98-107) mmol/L BUN 24 H (9-20) mg/dL Creatinine 4.15 H (0.66-1.25) mg/dL Glucose 163 H (74-99) mg/dL POC Glucose (mg/dL) 168 H (70-110) mg/dL
--- NOTE | 2024-09-30 14:35 | P.PN ---
Subjective Progress Note Date: 09/30/24 Principal diagnosis: Bronchitis, syncope. This is a 79-year-old male with history of end-stage renal disease, on hemodialysis Thursday and Thursday the patient himself is a very poor historian, most of the information obtained was from his daughter at bedside. The last couple of weeks, patient has been coughing and at times passing out, he had almost a dozen episodes of cough induced syncope. And never smoked, he has no history of COPD, his chest x-ray and CT of the chest done on this admission showed moderate bilateral pleural effusions with associated atelectasis. Chest x-ray showed mild interstitial prominence. Patient had his dialysis today and has CT of the chest done after dialysis clearly showed evidence of moderate- sized bilateral pleural effusions not clearly appreciated on the chest x-ray. Labs today showed negative screening for influenza A, influenza B, RSV and COVID-19. CBC was noted to be unremarkable. Hemoglobin is a bit low at 10 basi c metabolic profile is normal BUN is 43 creatinine 5.31, BNP level is 2840. After reviewing the patient chart, apparently the patient was recently in the hospital from and he was discharged on diagnosed as having tracheobronchitis, pulmonary was not consulted on his last admission. However patient was discharged home on doxycycline at 100 mg p.o. twice daily. That did not seem to make any difference on his cough and did not make any difference on his cough induced syncope. Echocardiogram on his last admission showed no evidence of LV dysfunction, no evidence of significant valvular heart disease and there was no evidence of pulmonary hypertension. His ejection fraction was 55 to 60% The patient is seen today September 23, 2024 in follow-up on the regular medical floor. He is currently sitting up at the bedside having breakfast. Awake and alert in no acute distress. Maintaining good O2 saturations in the 90s on room air. He did receive hemodialysis yesterday with 2 L removed. White count 14.6. Hemoglobin 11.4. Platelets 309. Sodium 135. Potassium 4.4. Bicarb 25. BUN 39. Creatinine 4.2. Glucose 247. Procalcitonin negative at 0.21. He is currently on DuoNeb and elations, Solu-Medrol, antibiotics in the form of ceftriaxone and azithromycin. The patient is seen today September 26, 2024 in follow-up on the selective care unit. He is currently resting in bed. Maintaining O2 saturations in the 90s on room air. Has been afebrile. Hemodynamically stable. Remains with a left- sided arm and leg drift. Follow-up CT scan of the brain revealed a 0.4 cm petechial hemorrhage within the left parietal infarct. Increasing edema in the right parietal infarct has effacement of the [place]. No midline shift or significant ventricle compression. Old occipital watershed infarcts bilaterally. Neurology is following closely. White count 10.2. Hemoglobin 11.5. Platelets 278. Sodium 136. Potassium 3.9. Bicarb 27. BUN 61. Creatinine 5.22. Glucose 140. He remains on a Cardizem drip at 5 mg/h. Heparin placed on hold. Continued on Keppra. Progress note dated September 27, 2024. 79-year-old male who is seen today in room 370. Currently, the patient is receiving D5W at 50 cc an hour. The patient is currently on room air. He did have hemodialysis today. 2 L of fluid was removed. He is resting comfortably in bed. No acute distress. No respiratory distress. Current labs include a white count 10.6, hemoglobin 10.6, hematocrit 31.1, and a platelet count of 267,000. Sodium 135, potassium 3.6, chlorides 99, CO2 27, anion gap 9, BUN 64, creatinine 5.63. Glucose is 90. Calcium is 8.1. The scan of the brain shows an overall similar examination with evolving right MCA territory infarct and trace petechial hemorrhage. No midline shift. Remote injuries to the bilateral frontal lobes and left temporal lobe with encephalomalacia. Progress note dated September 28, 2024. 79-year-old male seen in room 370. The patient is currently on room air. Saturations are 100%. The patient is receiving D5W at 50 cc an hour. The patient had hemodialysis yesterday. 2 L was removed. Currently, he is resting comfortably in no distress. Family members are in the room with the patient. Current labs include a white count of 10.8, hemoglobin 10.7, hematocrit 31.3, and a normal platelet count of 253,000. Sodium 131, potassium 3.4, chlorides 91, CO2 31, anion gap 9, BUN 35, and creatinine 4.35. Glucose is 170. Calcium is 8.3. Progress note dated September 29, 2024. 79-year-old male seen again in room 370. The patient is currently undergoing hemodialysis, with a goal of removal of 2 L. The patient is on room air. He is on a Cardizem drip at 15 mg an hour. He is getting D5W at 50 cc an hour. Current labs include a white count 9.6, hemoglobin 10.6, hematocrit 31.6, and a platelet count of 262,000. Sodium 129, potassium 3.5, chloride 94, CO2 26, BUN 43, creatinine 5.34. Glucose 123. Calcium 8.2. Progress note dated September 30, 2024. 79-year-old male seen in room 370. The patient is resting comfortably in bed. He is on room air. Saturations are 100%. The patient is getting D5W at 50 cc an hour. He is also on Cardizem drip at 5 mg an hour. Current labs include a white count 7.6, hemoglobin 10.5, hematocrit 30.9, and a platelet count of 263,000. Sodium 127, potassium 3.5, chlorides 91, CO2 28, BUN 24, creatinine 4.15. Glucose is 144. Calcium is 8.6. Objective - Vital Signs Vital signs: Vital Signs Temp 98.2 F 09/30/24 08:00 Pulse 64 09/30/24 12:44 Resp 18 09/30/24 13:39 BP 157/57 09/30/24 08:00 Pulse Ox 100 09/30/24 08:00 FiO2 60 09/26/24 16:00 Intake & Output 09/29/24 09/30/24 09/30/24 18:59 06:59 18:59 Intake Total 569 37.333 Output Total 4850 0 Balance -4281 37.333 0 Weight 85.5 kg 83.5 kg Intake: Intake, IV Titration 69 37.333 Amount Diltiazem 125 mg In 69 37.333 Sodium Chloride 0.9% 100 ml @ 15 MG/HR 15 mls/hr IV .Q8H20M [facility] Rx#: [id number] Hemodialysis 500 Output: Urine 350 0 Hemodialysis 2500 Hemodialysis Net Amount 2000 Other: Voiding Method Indwelling Catheter Indwelling Catheter Indwelling Catheter # Bowel Movements 1 - Exam No acute distress, oriented 3. HEENT examination is grossly unremarkable. Mucous membranes are moist. No oral lesions. Neck supple. Full range of motion. No adenopathy thyromegaly or neck vein distention. Cardiovascular examination reveals an irregular rhythm and rate. S1-S2 normal. No S3 or S4. No discernible murmur noted. Lungs reveal bibasilar crackles. No wheezes or rhonchi. Breath sounds are equal bilaterally. The patient is currently on room air. Abdomen soft bowel sounds are heard. No masses or tenderness. Extremities are intact. No cyanosis clubbing or edema. Skin is without rash or lesion. Neurologic examination reveals left-sided weakness. - Labs CBC & Chem 7: 09/30/24 06:13 09/30/24 06:13 Labs: Abnormal Lab Results - Last 24 Hours (Table) 09/29/24 09/29/24 09/30/24 Range/Units 16:57 20:43 06:13 RBC 3.26 L (4.30-5.90) m/uL Hgb 10.5 L (13.0-17.5) gm/dL Hct 30.9 L (39.0-53.0) % Sodium (137-145) mmol/L Chloride (98-107) mmol/L BUN (9-20) mg/dL Creatinine (0.66-1.25) mg/dL Glucose (74-99) mg/dL POC Glucose (mg/dL) 178 H 171 H (70-110) mg/dL 09/30/24 09/30/24 09/30/24 Range/Units 06:13 06:16 11:37 RBC (4.30-5.90) m/uL Hgb (13.0-17.5) gm/dL Hct (39.0-53.0) % Sodium 127 L (137-145) mmol/L Chloride 91 L (98-107) mmol/L BUN 24 H (9-20) mg/dL Creatinine 4.15 H (0.66-1.25) mg/dL Glucose 163 H (74-99) mg/dL POC Glucose (mg/dL) 168 H 144 H (70-110) mg/dL Assessment and Plan Assessment: Ischemic stroke involving the right MCA territory predominantly on the right frontal lobe and insular cortex. Follow-up CT scan today revealed questionable petechial hemorrhage over the right frontal parietal. Cough induced syncope. Bilateral pleural effusions/most likely secondary to chronic renal failure or diastolic congestive heart failure, patient had normal LV function based on his last echocardiogram. Benign essential hypertension. Dyslipidemia. History of CVA. Diabetes with diabetic peripheral neuropathy. History of seizures. End-stage renal disease, on hemodialysis Thursday schedule. Plan: Plan dated September 27, 2024. The patient is seen today in room 370. He is resting comfortably in bed. He is on room air. He is getting D5W at 50 cc an hour. The patient did have hemodialysis today. 2 L of fluid was removed. Labs, x-rays, and all medications are reviewed. Repeat CT scan of the brain, showed findings that were similar to prior CT scan. Nothing new was noted. Prognosis is guarded. Plan dated September 28, 2024. The patient is seen again in room 370. The patient had hemodialysis yesterday. Labs, x-rays, and medications are reviewed. The patient is currently on room air. Saturations are 100%. He is receiving D5W at 50 cc an hour. We will continue to follow make recommendations along the way. Prognosis is guarded. Plan dated September 29, 2024. The patient is seen today in room 370. The patient is currently undergoing hemodialysis. The plan is to remove 2 L of fluid today. The patient is on room air. He is getting D5W at 50 cc an hour and Cardizem drip at 15 mg an hour. Labs, x-rays, and all medications are reviewed. The patient is overall prognosis remains guarded. We will continue to follow the patient and make recommendations where appropriate. Plan dated September 30, 2024. The patient is again seen in room 370. The patient appears to be relatively stable. He is on room air. Saturations are 100%. The patient is getting D5W at 50 cc an hour. In addition, he is on a Cardizem drip at 5 mg an hour. Labs, x-rays, and all medications are reviewed. We will continue to follow make recommendations. Prognosis is guarded. No additional recommendations at this time. Time with Patient: Less than 30
--- NOTE | 2024-09-30 14:58 | P.GSCN ---
History of Present Illness Consult date: 09/30/24 History of present illness: CHIEF COMPLAINT: Cough with syncopal episode HISTORY OF PRESENT ILLNESS: This is a 79-year-old male who presented initially with cough and syncopal episode and found to have evidence of pneumonia. Patient had a stroke just before he was to be discharged from the hospital. Patient has had difficulty with swallowing. He is failed his swallow eval. His MBS showed evidence of aspiration. Surgical service has been consulted for PEG tube placement. PAST MEDICAL HISTORY: See below PAST SURGICAL HISTORY: See below MEDICATIONS: See below ALLERGIES: See below SOCIAL HISTORY: No illicit drug use. REVIEW OF SYSTEMS: CONSTITUTIONAL: Denies fever or chills. HEENT: Denies blurred vision, vision changes, or eye pain. Denies hemoptysis CARDIOVASCULAR: Denies chest pain or pressure. RESPIRATORY: No shortness of breath. GASTROINTESTINAL: See HPI for pertinent findings HEMATOLOGIC: Denies bleeding disorders. GENITOURINARY: Denies any blood in urine or increased urinary frequency. SKIN: Denies pruitis. Denies rash. PHYSICAL EXAM: VITAL SIGNS: Reviewed GENERAL: Well-developed in no acute distress. ABDOMEN: Soft. Nondistended. Nontender NEUROLOGIC: sleeping comfortably LABORATORY DATA: WBC is 7.6 Hgb 10.5 platelets 263 Sodium is 127 potassium 3.5 creatinine 4.15 Albumin 3.6 IMAGING: ASSESSMENT: 1. CVA 2. Dysphagia 3. Failed swallow study. MBS study with aspiration 4. Moderate protein calorie malnutrition 5. Hyponatremia PLAN: -Further recommendations forthcoming per surgeon regarding PEG tube placement -Hyponatremia management per nephrology service Physician Roller Coaster Designer note has been reviewed by physician. Signing provider agrees with the documented findings, assessment, and plan of care. Past Medical History Past Medical History: CVA/TIA, Diabetes Mellitus, Hyperlipidemia, Hypertension, Liver Disease, Renal Disease, Sleep Apnea/CPAP/BIPAP Additional Past Medical History / Comment(s): ARTHRITIS, kidney stones, possible dementia, kidney failure, neuropathy alia legs, carpal tunnel. CVA-jul 17 balance issues,speech impairment,vision impairment, receives injections to eyes r/t bleeding ,COVID 07/28/2022 History of Any Multi-Drug Resistant Organisms: None Reported Past Surgical History: Back Surgery, Cholecystectomy Additional Past Surgical History / Comment(s): MASS REMOVED FROM BACK OF HEAD, eye surgery, Past Anesthesia/Blood Transfusion Reactions: No Reported Reaction Past Psychological History: Depression Smoking Status: Never smoker Past Alcohol Use History: None Reported Past Drug Use History: None Reported - Past Family History Father Family Medical History: Diabetes Mellitus Mother Family Medical History: Diabetes Mellitus Brother(s) Family Medical History: Cancer Sister(s) Family Medical History: Cancer Medications and Allergies Home Medications Medication Instructions Recorded Confirmed Type DULoxetine HCL [Cymbalta] 30 mg PO HS 03/13/16 09/21/24 History levETIRAcetam [Keppra] 500 mg PO BID 12/11/20 09/21/24 History Atorvastatin [Lipitor] 20 mg PO HS 07/18/21 09/21/24 History Ergocalciferol (Vitamin D2) 1,250 mcg PO MO 02/24/24 09/21/24 History [Drisdol (50,000 Iu)] NIFEdipine XL [Procardia XL] 60 mg PO BID 03/04/24 09/21/24 History INSULIN ASPART (NovoLOG) [NovoLOG 10 unit SQ AC-BID@0900,1200 04/17/24 09/21/24 History (formulary)] INSULIN ASPART (NovoLOG) [NovoLOG 12 unit SQ AC-SUPPER 04/17/24 09/21/24 History (formulary)] Insulin Glargine [Lantus Vial] 20 unit SQ HS 04/17/24 09/21/24 History Isosorbide Mononitrate ER [Imdur] 120 mg PO DAILY 04/17/24 09/21/24 History Vit B Comp No.3/Folic/C/Biotin 1 tab PO TUTHSA@0900,2100 04/17/24 09/21/24 History [Catie-Loly Rx Tablet] carvediloL [Coreg*] 12.5 mg PO BID 04/17/24 09/21/24 History Torsemide [Demadex] 20 mg PO DAILY #30 tab 04/18/24 09/21/24 Rx Albuterol Inhaler [Ventolin Hfa 2 puff INHALATION RT-QID PRN 09/11/24 09/21/24 History Inhaler] Aspirin 162.5 mg PO DAILY 09/11/24 09/21/24 History Midodrine HCl [ProAmatine] 10 mg PO TID PRN 09/11/24 09/21/24 History Allergies Allergy/AdvReac Type Severity Reaction Status Date / Time No Known Allergies Allergy Verified 09/21/24 14:56 Surgical - Exam Vital Signs Temp Pulse Resp BP Pulse Ox 98.9 F 60 20 132/60 96 09/21/24 12:49 09/21/24 12:49 09/21/24 12:49 09/21/24 12:49 09/21/24 12:49 Results - Labs 09/30/24 06:13 09/30/24 06:13 Abnormal Lab Results - Last 24 Hours (Table) 09/29/24 09/29/24 09/30/24 Range/Units 16:57 20:43 06:13 RBC 3.26 L (4.30-5.90) m/uL Hgb 10.5 L (13.0-17.5) gm/dL Hct 30.9 L (39.0-53.0) % Sodium (137-145) mmol/L Chloride (98-107) mmol/L BUN (9-20) mg/dL Creatinine (0.66-1.25) mg/dL Glucose (74-99) mg/dL POC Glucose (mg/dL) 178 H 171 H (70-110) mg/dL 09/30/24 09/30/24 09/30/24 Range/Units 06:13 06:16 11:37 RBC (4.30-5.90) m/uL Hgb (13.0-17.5) gm/dL Hct (39.0-53.0) % Sodium 127 L (137-145) mmol/L Chloride 91 L (98-107) mmol/L BUN 24 H (9-20) mg/dL Creatinine 4.15 H (0.66-1.25) mg/dL Glucose 163 H (74-99) mg/dL POC Glucose (mg/dL) 168 H 144 H (70-110) mg/dL Diabetes panel 09/30/24 Range/Units 06:13 Sodium 127 L (137-145) mmol/L Potassium 3.5 (3.5-5.1) mmol/L Chloride 91 L (98-107) mmol/L Carbon Dioxide 28 (22-30) mmol/L BUN 24 H (9-20) mg/dL Creatinine 4.15 H (0.66-1.25) mg/dL Glucose 163 H (74-99) mg/dL Calcium 8.6 (8.4-10.2) mg/dL Calcium panel 09/30/24 Range/Units 06:13 Calcium 8.6 (8.4-10.2) mg/dL Pituitary panel 09/30/24 Range/Units 06:13 Sodium 127 L (137-145) mmol/L Potassium 3.5 (3.5-5.1) mmol/L Chloride 91 L (98-107) mmol/L Carbon Dioxide 28 (22-30) mmol/L BUN 24 H (9-20) mg/dL Creatinine 4.15 H (0.66-1.25) mg/dL Glucose 163 H (74-99) mg/dL Calcium 8.6 (8.4-10.2) mg/dL Adrenal panel 09/30/24 Range/Units 06:13 Sodium 127 L (137-145) mmol/L Potassium 3.5 (3.5-5.1) mmol/L Chloride 91 L (98-107) mmol/L Carbon Dioxide 28 (22-30) mmol/L BUN 24 H (9-20) mg/dL Creatinine 4.15 H (0.66-1.25) mg/dL Glucose 163 H (74-99) mg/dL Calcium 8.6 (8.4-10.2) mg/dL
[2024-09-30 16:42] LABS: Glucose,Whole Blood 172 mg/dL (70-110)
[2024-09-30 19:58] LABS: Glucose,Whole Blood 174 mg/dL (70-110)
--- NOTE | 2024-09-30 20:13 | XR ---
EXAMINATION TYPE: XR chest 1V DATE OF EXAM: 09/30/2024 CLINICAL HISTORY: CHF. TECHNIQUE: Single AP portable upright view of the chest is obtained. COMPARISON: Chest CT from September 22, 2024 FINDINGS: Persistent low lung volumes. Suspect persistent small to tiny bilateral pleural effusions but this can be better assessed with lateral chest x-ray. Mild interstitial prominence bilaterally is again seen. Cardiac silhouette size is stable and within normal limits. Overlying loop recorder is r edemonstrated. Osseous structures are intact. IMPRESSION: Mild bilateral interstitial edema suspected. [facility], , 09/30/2024 8:11 PM
[2024-10-01 05:48] LABS: Glucose,Whole Blood 152 mg/dL (70-110)
[2024-10-01 08:19] LABS: HCT 32.4 % (39.0-53.0); MCH 32.2 pg (25.0-35.0); MCV 94.8 fL (80.0-100.0); Mean Platelet Volume 7.1; Platelet Count 294 k/uL (150-450); RBC 3.42 m/uL (4.30-5.90); RDW 12.7 % (11.5-15.5); WBC 6.9 k/uL (3.8-10.6)
[2024-10-01 08:39] LABS: African American GFR (CKD) 12 (>60 ml/min/1.73 sqM); Anion Gap 9 mmol/L; Blood Urea Nitrogen 28 mg/dL (9-20); Calcium 8.8 mg/dL (8.4-10.2); Carbon Dioxide 29 mmol/L (22-30); Chloride 92 mmol/L (98-107); Glucose 153 mg/dL (74-99); Non-African American GFR(CKD) 10 (>60 ml/min/1.73 sqM); Potassium 3.6 mmol/L (3.5-5.1); Sodium 130 mmol/L (137-145)
--- NOTE | 2024-10-01 10:13 | P.PN ---
Subjective Patient is seen in follow-up for end-stage renal disease. He is maintained on hemodialysis on Thursday schedule. Scheduled for dialysis today. Resting in bed. Family present at bedside. Failed swallow eval. NPO. PEG tube to be placed tomorrow. Vital signs are stable. General: No acute distress. HEENT: Head exam is unremarkable. LUNGS: No audible rhonchi or wheezes. HEART: Rate and Rhythm are regular. ABDOMEN: No distention. EXTREMITITES: No edema. Objective - Vital Signs Vital signs: Vital Signs Temp 98.1 F 10/01/24 04:00 Pulse 68 10/01/24 09:20 Resp 18 10/01/24 04:00 BP 155/72 10/01/24 04:00 Pulse Ox 98 10/01/24 04:00 FiO2 60 09/26/24 16:00 Intake & Output 09/30/24 10/01/24 10/01/24 18:59 06:59 18:59 Intake Total 75.417 Output Total 0 Balance 75.417 Weight 85 kg Intake: Intake, IV Titration 75.417 Amount Diltiazem 125 mg In 75.417 Sodium Chloride 0.9% 100 ml @ 15 MG/HR 15 mls/hr IV .Q8H20M [facility] Rx#: [id number] Output: Urine 0 Other: Voiding Method Indwelling Catheter Indwelling Catheter # Bowel Movements 1 - Labs CBC & Chem 7: 10/01/24 07:50 10/01/24 07:50 Labs: Abnormal Lab Results - Last 24 Hours (Table) 09/30/24 09/30/24 09/30/24 Range/Units 11:37 16:41 19:57 RBC (4.30-5.90) m/uL Hgb (13.0-17.5) gm/dL Hct (39.0-53.0) % Sodium (137-145) mmol/L Chloride (98-107) mmol/L BUN (9-20) mg/dL Creatinine (0.66-1.25) mg/dL Glucose (74-99) mg/dL POC Glucose (mg/dL) 144 H 172 H 174 H (70-110) mg/dL 10/01/24 10/01/24 10/01/24 Range/Units 05:45 07:50 07:50 RBC 3.42 L (4.30-5.90) m/uL Hgb 11.0 L (13.0-17.5) gm/dL Hct 32.4 L (39.0-53.0) % Sodium 130 L (137-145) mmol/L Chloride 92 L (98-107) mmol/L BUN 28 H (9-20) mg/dL Creatinine 5.07 H (0.66-1.25) mg/dL Glucose 153 H (74-99) mg/dL POC Glucose (mg/dL) 152 H (70-110) mg/dL Assessment and Plan Plan: Assessment: 1. End-stage renal disease maintained on hemodialysis on Thursday schedule. 2. Pneumonia status post antibiotics. 3. Diabetes mellitus. 4. Hypertension with chronic kidney disease. Stable. 5. Acute ischemic CVA. 6. A-fib with RVR maintained on Cardizem drip. Plan: Hemodialysis today. PEG tube placement tomorrow.
[2024-10-01 11:27] LABS: Glucose,Whole Blood 158 mg/dL (70-110)
--- NOTE | 2024-10-01 12:12 | P.PN ---
Subjective Progress Note Date: 10/01/24 Principal diagnosis: Hospital course: Patient is a 79-year-old male with ESRD, presenting for syncope induced by cough. Patient is poor historian. He was recently admitted for similar symptoms on September 12 and subsequently discharged with doxycycline for treatment of tracheobronchitis for mucous plugging. Since this time patient has had persistent symptoms with sputum production. Denying fever, chills, shortness of breath, chest pain, palpitations at this time. Labs completed in emergency room significant for WBC 6.7, hemoglobin 10.0, sodium 132, potassium 5.0, bicarb 20, BUN 43, creatinine 5.31, glucose 260, A1c 7.3, ALP 146, proBNP 2840, viral respiratory panel is negative. EKG done in the ER independently interpreted showed sinus rhythm heart rate of 60, no ST segment elevation or depression seen, no T-wave inversions seen. Chest x-ray done independently interpreted in the ER showed hazy interstitial markings bilaterally 09/23/2024 Patient seen and examined at bedside. No acute events overnight. Will discontinue antibiotics and steroids. Today's labs significant for WBC 14.6, BUN 38, creatinine 4.2, glucose ranging from 416-209, procalcitonin negative, blood cultures pending with no growth thus far. 09/24/2024 Patient seen and examined at bedside. Overnight patient began having strokelike symptoms at around 4 AM as witnessed by in the room with new onset left- sided weakness, left-sided facial droop and slurred speech with difficulty swallowing. Code stroke was called. Initial CT head with no evidence of acute intracranial process, later MRI of brain with subacute/acute CVA involving right MCA predominantly right frontal lobe and insular cortex. Patient given 300 mg of aspirin rectally as could not tolerate oral swallowing. Neurology consulted. Dialysis today. Today's labs WBC 12.0, hemoglobin 11.3, sodium 133, BUN 78, creatinine 5.24, glucose 166. 09/25. Patient seen and examined. Patient is moving his left upper extremity more than yesterday, also lifting his left lower extremity. Family thinks that patient has improved compared to yesterday 09/26/24: Patient evaluated at bedside today. Patient's family mentioned that his strength is better but currently the patient is very tired as he was up all night coughing. Labs show hemoglobin 11.5, sodium 136, BUN 61, creatinine 5.22. Brain CT shows 0.4 cm petechial hemorrhage within the left parietal infarct may be present, increasing edema in the right parietal infarct as effacement of the sulk I with no midline shift or significant ventricle compression, old occipital watershed infarcts bilaterally. 09/27/24: Patient examined today. Dysphagia evaluation by COUNTY DIRECTOR showed poor t oleration of PO trials exhibiting severe coughing with 2 attempts, continue strict NPO. Labs today show hemoglobin 10.6, sodium 135, BUN 64, creatinine 5.63. EEG done yesterday shows abnormal routine EEG, background slowing with history of mild encephalopathy, no focal slowing/epileptiform discharge/seizure. Hemodialysis today. 09/28/24: Patient evaluated at bedside. Patient had hemodialysis yesterday, 2L was removed. Labs today show WBC 10.8, hemoglobin 10.7, sodium 131, potassium 3.4, bicarb 31, BUN 35, creatinine 4.35. Repeat CT Brain showed overall similar examination with evolving right MCA territory infarct and trace petechial hemorrhage, no midline shift, Remote injuries to bilateral frontal lobes and left temporal lobe with encephalomalacia. 09/29/24: Patient seen and examined. Hemodialysis today. Labs today show hemoglobin 10.6, sodium 129, BUN 43, creatinine 5.34. 09/30/24: Patient evaluated today. Vitals show BP is 153/69. Labs today show Hb 10.5, Na 127, BUN 24, creatinine 4.15. EKG done yesterday independently interpreted as Atrial fibrillation with Rapid ventricular response. Hemodialysis yesterday, 2L of fluid was removed. Patient underwent the videofluoroscopic swallow study today. Patient's family was counseled about the importance of PEG tube. 10/01/24: Patient examined at bedside. BP today is 155/72. The family mentioned that the patient's right arm is swollen. Pateint denies any pain on the right arm. Labs today show hemoglobin 11, sodium 130, BUN 28, creatinine 5.07. Chest x-ray shows mild bilateral interstitial edema. PT and OT recommends RAFA place ment/24-7 care or rehab to maximize mobility efforts, improve functional status. Review of systems: Pertinent positives and negatives as discussed in HPI, a complete review of systems was performed and all other systems are negative. Vitals: Signs Reviewed Physical examination: General: nontoxic, no distress, appears at stated age Derm: warm, dry, intact Head: atraumatic, normocephalic, symmetric Eyes: Eye reacting to light, bilateral right gaze Mouth: no lip lesion, mucus membranes moist Cardiovascular: S1 S2 reg, no murmur Lungs: CTA bilateral, no rhonchi, no rales, no accessory muscle use Abdominal: soft, non-tender to palpataion Extremities: No cyanosis, clubbing, or pedal edema. Neuro: Mild left-sided facial droop, left upper extremity strength 3/5, left lower extremity 3/5 at this time. 5/5 right side upper and lower extremities Psych: well appearing, appropriate affect Assessment/Plan: Patient is a 79-year-old male with ESRD(TTS), presenting for cough induced syncope. He has been admitted for respiratory distress. The patient then had a CODE STROKE and he was found to have an acute CVA due to new onset atrial fibrillation. Brain CT showed petechial hemorrhage. MBS study showed inconsistent swallow and high risk for aspiration, surgery consulted for PEG tube placement. PT and OT recommend rehab upon discharge. 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 # New onset Atrial fibrillation, Rapid ventricular response MRI brain with subacute CVA involving right MCA predominantly right frontal lobe and insular cortex Loop recorder interrogation showed new onset atrial fibrillation Brain CT shows 0.4 cm petechial hemorrhage within the left parietal infarct may be present, increasing edema in right parietal infarct as effacement of the sulci with no midline shift or significant ventricle compression, old occipital watershed infarcts bilaterally EEG done yesterday shows abnormal routine EEG, background slowing with history of mild encephalopathy, no focal slowing/epileptiform discharge/seizure Repeat CT Brain showed overall similar examination with evolving right MCA territory infarct and trace petechial hemorrhage, no midline shift. Remote injuries to bilateral frontal lobes and left temporal lobe with encephalomalacia Bubble study was inconclusive Dysphagia evaluation by COUNTY DIRECTOR showed poor toleration of PO trials exhibiting severe coughing with 2 attempts, continue strict NPO Videofluoroscopic swallow study shows aspiration with thin liquids and suspected with nectar thick liquids, poor bolus transfer Continue IV Cardizem 15 mg/hr and Coreg to 25 mg PO BID Continue Keppra 500 mg twice daily, Lipitor 80 mg Continue Aspirin 300 mg rectally and Heparin 5000 unit SQ Q12HR Cardiology following, recommend no need for KARISHMA Neurology following, recommending to hold anticoagulation for 2 days because of large infarct burden General surgery following, recommending PEG tube placement tomorrow #. Right upper extremity edema Obtain Venous doppler # Respiratory distress # Cough induced syncope CT chest findings of moderate bilateral pleural effusions with associated atelectasis, no focal consolidation Repeat Chest x-ray shows mild bilateral interstitial edema. Continue bronchodilators Encourage incentive spirometry Pulmonology following # ESRD # Hyponatremia Hemodialysis Thursday schedule Adjust sodium bath on dialysis Nephrology is following # Diabetes mellitus Low-dose insulin, ACHS protocol Chronic Medical Conditions #Hypertension #Peripheral neuropathyresume home medication #Hx of CVAas mentioned above F: None E: Replete as required N: Consistent carbohydrate diet DVT prophylaxis: Heparin 5000 units SQ every 12 hours Attestation I have seen and examined this patient with my resident , discussed the same with the resident/ELISE, and agree with the dictator's assessment and plan as written Dr. Emmanuel medina Objective - Vital Signs Vital signs: Vital Signs Temp 98.1 F 10/01/24 04:00 Pulse 84 10/01/24 04:00 Resp 18 10/01/24 04:00 BP 155/72 10/01/24 04:00 Pulse Ox 98 10/01/24 04:00 FiO2 60 09/26/24 16:00 Intake & Output 09/30/24 10/01/24 10/01/24 18:59 06:59 18:59 Intake Total 75.417 Output Total 0 Balance 75.417 Weight 85 kg Intake: Intake, IV Titration 75.417 Amount Diltiazem 125 mg In 75.417 Sodium Chloride 0.9% 100 ml @ 15 MG/HR 15 mls/hr IV .Q8H20M COUNT INCLUDES THE [facility] Rx#: [id number] Output: Urine 0 Other: Voiding Method Indwelling Catheter Indwelling Catheter # Bowel Movements 1 - Labs CBC & Chem 7: 10/02/24 06:47 10/02/24 06:47 Labs: Abnormal Lab Results - Last 24 Hours (Table) 09/30/24 09/30/24 09/30/24 Range/Units 11:37 16:41 19:57 POC Glucose (mg/dL) 144 H 172 H 174 H (70-110) mg/dL 10/01/24 Range/Units 05:45 POC Glucose (mg/dL) 152 H (70-110) mg/dL
--- NOTE | 2024-10-01 13:13 | US ---
EXAMINATION TYPE: US venous doppler duplex UE RT DATE OF EXAM: 10/01/2024 COMPARISON: NONE CLINICAL INDICATION: Male, 79 years old with history of right arm swollen; swelling in right arm. RN states it is because of IV infiltrate TECHNIQUE: Grayscale, color Doppler and spectral Doppler imaging of the upper extremity. SIDE PERFORMED: Right FINDINGS: Right Arm: No evidence for DVT Grayscale, color doppler, spectral doppler imaging performed of the deep veins of the upper extremiti es. IMPRESSION: No ultrasound evidence for acute deep or superficial venous thrombosis in the right upper extremity. [facility], , 10/01/2024 1:10 PM
--- NOTE | 2024-10-01 13:23 | P.PN ---
Subjective Progress Note Date: 10/01/24 Principal diagnosis: Bronchitis, syncope. This is a 79-year-old male with history of end-stage renal disease, on hemodialysis Thursday and Thursday the patient himself is a very poor historian, most of the information obtained was from his daughter at bedside. The last couple of weeks, patient has been coughing and at times passing out, he had almost a dozen episodes of cough induced syncope. And never smoked, he has no history of COPD, his chest x-ray and CT of the chest done on this admission showed moderate bilateral pleural effusions with associated atelectasis. Chest x-ray showed mild interstitial prominence. Patient had his dialysis today and has CT of the chest done after dialysis clearly showed evidence of moderate- sized bilateral pleural effusions not clearly appreciated on the chest x-ray. Labs today showed negative screening for influenza A, influenza B, RSV and COVID-19. CBC was noted to be unremarkable. Hemoglobin is a bit low at 10 basi c metabolic profile is normal BUN is 43 creatinine 5.31, BNP level is 2840. After reviewing the patient chart, apparently the patient was recently in the hospital from and he was discharged on diagnosed as having tracheobronchitis, pulmonary was not consulted on his last admission. However patient was discharged home on doxycycline at 100 mg p.o. twice daily. That did not seem to make any difference on his cough and did not make any difference on his cough induced syncope. Echocardiogram on his last admission showed no evidence of LV dysfunction, no evidence of significant valvular heart disease and there was no evidence of pulmonary hypertension. His ejection fraction was 55 to 60% The patient is seen today September 23, 2024 in follow-up on the regular medical floor. He is currently sitting up at the bedside having breakfast. Awake and alert in no acute distress. Maintaining good O2 saturations in the 90s on room air. He did receive hemodialysis yesterday with 2 L removed. White count 14.6. Hemoglobin 11.4. Platelets 309. Sodium 135. Potassium 4.4. Bicarb 25. BUN 39. Creatinine 4.2. Glucose 247. Procalcitonin negative at 0.21. He is currently on DuoNeb and elations, Solu-Medrol, antibiotics in the form of ceftriaxone and azithromycin. The patient is seen today September 26, 2024 in follow-up on the selective care unit. He is currently resting in bed. Maintaining O2 saturations in the 90s on room air. Has been afebrile. Hemodynamically stable. Remains with a left- sided arm and leg drift. Follow-up CT scan of the brain revealed a 0.4 cm petechial hemorrhage within the left parietal infarct. Increasing edema in the right parietal infarct has effacement of the Clint. No midline shift or significant ventricle compression. Old occipital watershed infarcts bilaterally. Neurology is following closely. White count 10.2. Hemoglobin 11.5. Platelets 278. Sodium 136. Potassium 3.9. Bicarb 27. BUN 61. Creatinine 5.22. Glucose 140. He remains on a Cardizem drip at 5 mg/h. Heparin placed on hold. Continued on Keppra. Progress note dated September 27, 2024. 79-year-old male who is seen today in room 370. Currently, the patient is receiving D5W at 50 cc an hour. The patient is currently on room air. He did have hemodialysis today. 2 L of fluid was removed. He is resting comfortably in bed. No acute distress. No respiratory distress. Current labs include a white count 10.6, hemoglobin 10.6, hematocrit 31.1, and a platelet count of 267,000. Sodium 135, potassium 3.6, chlorides 99, CO2 27, anion gap 9, BUN 64, creatinine 5.63. Glucose is 90. Calcium is 8.1. The scan of the brain shows an overall similar examination with evolving right MCA territory infarct and trace petechial hemorrhage. No midline shift. Remote injuries to the bilateral frontal lobes and left temporal lobe with encephalomalacia. Progress note dated September 28, 2024. 79-year-old male seen in room 370. The patient is currently on room air. Saturations are 100%. The patient is receiving D5W at 50 cc an hour. The patient had hemodialysis yesterday. 2 L was removed. Currently, he is resting comfortably in no distress. Family members are in the room with the patient. Current labs include a white count of 10.8, hemoglobin 10.7, hematocrit 31.3, and a normal platelet count of 253,000. Sodium 131, potassium 3.4, chlorides 91, CO2 31, anion gap 9, BUN 35, and creatinine 4.35. Glucose is 170. Calcium is 8.3. Progress note dated September 29, 2024. 79-year-old male seen again in room 370. The patient is currently undergoing hemodialysis, with a goal of removal of 2 L. The patient is on room air. He is on a Cardizem drip at 15 mg an hour. He is getting D5W at 50 cc an hour. Current labs include a white count 9.6, hemoglobin 10.6, hematocrit 31.6, and a platelet count of 262,000. Sodium 129, potassium 3.5, chloride 94, CO2 26, BUN 43, creatinine 5.34. Glucose 123. Calcium 8.2. Progress note dated September 30, 2024. 79-year-old male seen in room 370. The patient is resting comfortably in bed. He is on room air. Saturations are 100%. The patient is getting D5W at 50 cc an hour. He is also on Cardizem drip at 5 mg an hour. Current labs include a white count 7.6, hemoglobin 10.5, hematocrit 30.9, and a platelet count of 263,000. Sodium 127, potassium 3.5, chlorides 91, CO2 28, BUN 24, creatinine 4.15. Glucose is 144. Calcium is 8.6. Progress note dated October 01, 2024. 79-year-old male seen in room 370. The patient is resting comfortably in bed. He is currently on room air. He is getting D5W at 50 cc an hour. He continues on Cardizem drip at 5 mg an hour. The plan is for hemodialysis today. Current labs include a white count 6.9, hemoglobin 11, hematocrit 32.4, and a platelet count of 2 94,000. Sodium 130, potassium 3.6, chloride 72, CO2 29, BUN 28, creatinine 5.07. Glucose is 158. Calcium 8.8. Doppler of the right upper extremity, reveals no DVT. Chest x-ray from yesterday shows some very mild interstitial edema. Objective - Vital Signs Vital signs: Vital Signs Temp 98.1 F 10/01/24 08:00 Pulse 80 10/01/24 12:57 Resp 18 10/01/24 12:00 BP 145/65 10/01/24 08:00 Pulse Ox 100 10/01/24 12:00 FiO2 60 09/26/24 16:00 Intake & Output 09/30/24 10/01/24 10/01/24 18:59 06:59 18:59 Intake Total 75.417 Output Total 0 Balance 75.417 Weight 85 kg Intake: Intake, IV Titration 75.417 Amount Diltiazem 125 mg In 75.417 Sodium Chloride 0.9% 100 ml @ 15 MG/HR 15 mls/hr IV .Q8H20M [facility] Rx#: [id number] Output: Urine 0 Other: Voiding Method Indwelling Catheter Indwelling Catheter Indwelling Catheter # Bowel Movements 1 - Exam No acute distress, oriented 3. HEENT examination is grossly unremarkable. Mucous membranes are moist. No oral lesions. Neck supple. Full range of motion. No adenopathy thyromegaly or neck vein di stention. Cardiovascular examination reveals an irregular rhythm and rate. S1-S2 normal. No S3 or S4. No discernible murmur noted. Lungs reveal bibasilar crackles. No wheezes or rhonchi. Breath sounds are equal bilaterally. The patient is currently on room air. Abdomen soft bowel sounds are heard. No masses or tenderness. Extremities are intact. No cyanosis clubbing or edema. Skin is without rash or lesion. Neurologic examination reveals left-sided weakness. - Labs CBC & Chem 7: 10/01/24 07:50 10/01/24 07:50 Labs: Abnormal Lab Results - Last 24 Hours (Table) 09/30/24 09/30/24 10/01/24 Range/Units 16:41 19:57 05:45 RBC (4.30-5.90) m/uL Hgb (13.0-17.5) gm/dL Hct (39.0-53.0) % Sodium (137-145) mmol/L Chloride (98-107) mmol/L BUN (9-20) mg/dL Creatinine (0.66-1.25) mg/dL Glucose (74-99) mg/dL POC Glucose (mg/dL) 172 H 174 H 152 H (70-110) mg/dL 10/01/24 10/01/24 10/01/24 Range/Units 07:50 07:50 11:25 RBC 3.42 L (4.30-5.90) m/uL Hgb 11.0 L (13.0-17.5) gm/dL Hct 32.4 L (39.0-53.0) % Sodium 130 L (137-145) mmol/L Chloride 92 L (98-107) mmol/L BUN 28 H (9-20) mg/dL Creatinine 5.07 H (0.66-1.25) mg/dL Glucose 153 H (74-99) mg/dL POC Glucose (mg/dL) 158 H (70-110) mg/dL Assessment and Plan Assessment: Ischemic stroke involving the right MCA territory predominantly on the right frontal lobe and insular cortex. Follow-up CT scan today revealed questionable petechial hemorrhage over the right frontal parietal. Cough induced syncope. Bilateral pleural effusions/most likely secondary to chronic renal failure or diastolic congestive heart failure, patient had normal LV function based on his last echocardiogram. Benign essential hypertension. Dyslipidemia. History of CVA. Diabetes with diabetic peripheral neuropathy. History of seizures. End-stage renal disease, on hemodialysis Thursday schedule. Plan: Plan dated September 27, 2024. The patient is seen today in room 370. He is resting comfortably in bed. He is on room air. He is getting D5W at 50 cc an hour. The patient did have hemodialysis today. 2 L of fluid was removed. Labs, x-rays, and all medications are reviewed. Repeat CT scan of the brain, showed findings that were similar to prior CT scan. Nothing new was noted. Prognosis is guarded. Plan dated September 28, 2024. The patient is seen again in room 370. The patient had hemodialysis yesterday. Labs, x-rays, and medications are reviewed. The patient is currently on room air. Saturations are 100%. He is receiving D5W at 50 cc an hour. We will continue to follow make recommendations along the way. Prognosis is guarded. Plan dated September 29, 2024. The patient is seen today in room 370. The patient is currently undergoing hemodialysis. The plan is to remove 2 L of fluid today. The patient is on room air. He is getting D5W at 50 cc an hour and Cardizem drip at 15 mg an hour. Labs, x-rays, and all medications are reviewed. The patient is overall prognosis remains guarded. We will continue to follow the patient and make recommendations where appropriate. Plan dated September 30, 2024. The patient is again seen in room 370. The patient appears to be relatively stable. He is on room air. Saturations are 100%. The patient is getting D5W at 50 cc an hour. In addition, he is on a Cardizem drip at 5 mg an hour. Labs, x-rays, and all medications are reviewed. We will continue to follow make recommendations. Prognosis is guarded. No additional recommendations at this time. Plan dated October 01, 2024. The patient is seen today in room 370. Clinically, the patient is doing well. He is on room air. He continues on a Cardizem drip at 5 mg an hour. He is getting D5W at 50 cc an hour. The plan is for hemodialysis today. Labs, x- rays, and all medications are reviewed. We will continue to follow. Prognosis is guarded. Time with Patient: Less than 30
--- NOTE | 2024-10-01 13:49 | P.PN ---
Subjective HISTORY OF PRESENT ILLNESS: This is a 79-year-old male with a past medical history significant for coronary artery disease, hypertension, hyperlipidemia, CVA, diabetes, and chronic kidney disease. Patient follows in the office with Dr. Fischer. We have been asked to see the patient in consultation for CVA and loop recorder interrogation. Patient examined at the bedside. Patient was hospitalized earlier this month for cough induced syncope. Patient was discharged home and presented back to the hospital with similar symptoms. While in the hospital he developed left-sided weakness and was found to be positive for CVA. Patient currently denies chest pain or pressure. Denies shortness of breath. The patient was previously prescribed Eliquis for unknown reason however he was not currently taking this. Family has denied any history of atrial fibrillation or PE/DVT. Patient is currently maintaining sinus mechanism. Loop recorder interrogation performed revealing episodes of atrial fibrillation. DIAGNOSTICS: - EKG reveals sinus mechanism with no signs of acute ischemia - Chest xray hazy interstitial markings seen bilaterally may relate to infectious/inflammatory process. - Laboratory data: WBC 10.2. Hemoglobin 12.0. Platelet count 298. Sodium 134. Potassium 4.1. BUN 49. Creatinine 4.27. - Current home cardiac medications include aspirin 162.5 mg daily, Lipitor 20 mg at night, Imdur 120 mg daily, midodrine 10 mg 3 times a day as needed, Procardia 60 mg twice a day, Demadex 20 mg daily, carvedilol 12.5 mg twice a day - Most recent echocardiogram obtained in August 2024 revealed ejection fraction 55 to 60% with no significant valvular disease - Cardiac catheterization history: 2008 revealing approximately 40%, mid LAD 50%, diagonal 50%, circumflex 50%, and nondominant RCA with no significant stenosis -Patient underwent Lexiscan stress test in March 2024 which was negative for ischemia 09/26/2024 Was seen and examined resting comfortably in bed. [place] any chest discomfort or shortness of breath. Continues to have issues with speech and swallowing. Facial droop noted. Awaiting swallow eval. Anticoagulation has not been initiated at this point. CT scan done this morning showed a 0.4 cm petechial hemorrhage within the left parietal infarct may be present, increasing edema in the right parietal infarct as effacement of the sulci, no midline shift or significant ventricle compression, old occipital watershed infarcts bilaterally. We are awaiting input from neurology in regards to anticoagulation. 09/27/2024 Patient was seen and examined resting comfortably in bed. He was seen by neurology yesterday and anticoagulation remains on hold due to moderate size stroke as well as questionable petechial hemorrhage. Plan for repeat CT of the head. 09/28/2024 Patient mated to atrial fibrillation RVR and was started on Cardizem drip. Patient's blood pressure was noticed to be fluctuating today. 09/29/24 Patient seen and examined. Repeat blood work reveals hemoglobin 10.6, BUN 43 creatinine 5.34, potassium 3.5 and sodium 129. Blood pressure 136/63, heart rate in the 60s, pulse ox 97 percent on room air. Telemetry remains atrial fibrillation running in the 70s. Patient is currently on IV Cardizem at 15 mg/h. Patient is quite sleepy today. We will plan to start patient on full anticoagulation once cleared by neurology. No plan for KARISHMA. 09/30/24 P unfortunately, patient failed swallow evaluation and family is considering tube feeding. atient seen and examined. He is scheduled for modified barium swallow today. Patient has been maintained on Cardizem drip as he is not taking any oral medications. 10/01/2024 Patient examined this morning at the bedside. Patient's family is present. Patient is sitting comfortably in bed. Telemetry reveals sinus mechanism. He has been evaluated by general surgery and is scheduled for EGD with PEG tube placement on 10/02/2023 PHYSICAL EXAM: VITAL SIGNS: Reviewed. GENERAL: Well-developed in no acute distress. NECK: Supple. No JVD or thyromegaly LUNGS: Respirations even and unlabored. Lungs essentially clear to auscultation bilaterally. HEART: Regular rate and rhythm. S1 and S2 heard. EXTREMITIES: Left-sided weakness. Normal range of motion. No clubbing or cyanosis. Peripheral pulses intact. No lower extremity edema ASSESSMENT: Acute/subacute CVA involving right MCA territory New onset atrial fibrillation, currently rate controlled Recent diagnosis and hospitalization for tussive syncope Nonobstructive CAD, per cath 2008 History of loop recorder implantation, [place], 2020 Chronic kidney disease on hemodialysis Hypertension Hyperlipidemia History of CVA Diabetes End-stage renal disease on hemodialysis PLAN: Continue telemetry monitoring Patient currently NPO and unable to take oral medications Patient scheduled for EGD with PEG tube placement on 10/02/2023 with general surgery Case discussed with neurology. Plan to begin anticoagulation on 10/03/2024 Further recommendations pending patient course Nurse practitioner note has been reviewed by physician. Signing provider agrees with the documented findings, assessment, and plan of care documented by [employer] as a scribe. Objective - Vital Signs Vital signs: Vital Signs Temp 98.1 F 10/01/24 08:00 Pulse 80 10/01/24 12:57 Resp 18 10/01/24 12:00 BP 145/65 10/01/24 08:00 Pulse Ox 100 10/01/24 12:00 FiO2 60 09/26/24 16:00 Intake & Output 09/30/24 10/01/24 10/01/24 18:59 06:59 18:59 Intake Total 75.417 Output Total 0 Balance 75.417 Weight 85 kg Intake: Intake, IV Titration 75.417 Amount Diltiazem 125 mg In 75.417 Sodium Chloride 0.9% 100 ml @ 15 MG/HR 15 mls/hr IV .Q8H20M [facility] Rx#: [id number] Output: Urine 0 Other: Voiding Method Indwelling Catheter Indwelling Catheter Indwelling Catheter # Bowel Movements 1 - Labs CBC & Chem 7: 10/01/24 07:50 10/01/24 07:50 Labs: Abnormal Lab Results - Last 24 Hours (Table) 09/30/24 09/30/24 10/01/24 Range/Units 16:41 19:57 05:45 RBC (4.30-5.90) m/uL Hgb (13.0-17.5) gm/dL Hct (39.0-53.0) % Sodium (137-145) mmol/L Chloride (98-107) mmol/L BUN (9-20) mg/dL Creatinine (0.66-1.25) mg/dL Glucose (74-99) mg/dL POC Glucose (mg/dL) 172 H 174 H 152 H (70-110) mg/dL 10/01/24 10/01/24 10/01/24 Range/Units 07:50 07:50 11:25 RBC 3.42 L (4.30-5.90) m/uL Hgb 11.0 L (13.0-17.5) gm/dL Hct 32.4 L (39.0-53.0) % Sodium 130 L (137-145) mmol/L Chloride 92 L (98-107) mmol/L BUN 28 H (9-20) mg/dL Creatinine 5.07 H (0.66-1.25) mg/dL Glucose 153 H (74-99) mg/dL POC Glucose (mg/dL) 158 H (70-110) mg/dL
[2024-10-01 16:16] LABS: Glucose,Whole Blood 112 mg/dL (70-110)
[2024-10-01 20:52] LABS: Glucose,Whole Blood 143 mg/dL (70-110)
--- NOTE | 2024-10-02 00:35 | P.PN ---
Progress Note - Text Progress Note Date: 10/01/24 No acute events overnight. PEG tube insertion risks and benefits explained to son in room and daughter over the phone PHYSICAL EXAM: VITAL SIGNS: Reviewed GENERAL: Well-developed in no acute distress. ABDOMEN: Soft. Nondistended. Nontender NEUROLOGIC: sleeping comfortably ASSESSMENT: 1. CVA 2. Dysphagia 3. Failed swallow study. MBS study with aspiration 4. Moderate protein calorie malnutrition 5. Hyponatremia PLAN: -PEG tube placement planned for Thursday10/02/24 Vinny Stewart DO [facility] [phone]
[2024-10-02] MEDS: KETOROLAC 15 MG/ML 1 ML VIAL IVP STA (02:32)
[2024-10-02 02:37] LABS: Glucose,Whole Blood 185 mg/dL (70-110)
[2024-10-02 06:10] LABS: Glucose,Whole Blood 175 mg/dL (70-110)
[2024-10-02 07:24] LABS: HCT 31.5 % (39.0-53.0); HGB 10.6 gm/dL (13.0-17.5); MCH 31.9 pg (25.0-35.0); MCHC 33.8 g/dL (31.0-37.0); MCV 94.3 fL (80.0-100.0); Mean Platelet Volume 7.1; Platelet Count 310 k/uL (150-450); RBC 3.34 m/uL (4.30-5.90); RDW 12.7 % (11.5-15.5); WBC 7.6 k/uL (3.8-10.6)
[2024-10-02 07:47] LABS: African American GFR (CKD) 15 (>60 ml/min/1.73 sqM); Anion Gap 9 mmol/L; Blood Urea Nitrogen 18 mg/dL (9-20); Calcium 8.7 mg/dL (8.4-10.2); Carbon Dioxide 28 mmol/L (22-30); Chloride 91 mmol/L (98-107); Glucose 165 mg/dL (74-99); Non-African American GFR(CKD) 13 (>60 ml/min/1.73 sqM); Potassium 3.7 mmol/L (3.5-5.1); Sodium 128 mmol/L (137-145)
--- NOTE | 2024-10-02 10:34 | P.PN ---
Subjective Patient is seen in follow-up for end-stage renal disease. He is maintained on hemodialysis on Thursday schedule. Tolerated 2 L ul trafiltration yesterday. More awake today. Family present at bedside. Failed swallow eval. NPO. PEG tube to be placed today. Vital signs are stable. General: No acute distress. HEENT: Head exam is unremarkable. LUNGS: No audible rhonchi or wheezes. HEART: Rate and Rhythm are regular. ABDOMEN: No distention. EXTREMITITES: No edema. Objective - Vital Signs Vital signs: Vital Signs Temp 98.2 F 10/02/24 03:03 Pulse 80 10/02/24 09:44 Resp 16 10/02/24 03:03 BP 151/70 10/02/24 03:03 Pulse Ox 98 10/02/24 03:03 FiO2 60 09/26/24 16:00 Intake & Output 10/01/24 10/02/24 10/02/24 18:59 06:59 18:59 Intake Total 125 600 8 Output Total 5075 Balance 125 -4475 8 Weight 84 kg Intake: IV 8 Invasive Line 7 8 Intake, IV Titration 125 Amount Diltiazem 125 mg In 125 Sodium Chloride 0.9% 100 ml @ 15 MG/HR 15 mls/hr IV .Q8H20M [facility] Rx#: [id number] Oral 0 Hemodialysis 600 Output: Urine 475 Hemodialysis 2600 Hemodialysis Net Amount 2000 Other: Voiding Method Indwelling Catheter Indwelling Catheter # Bowel Movements 0 1 - Labs CBC & Chem 7: 10/02/24 06:47 10/02/24 06:47 Labs: Abnormal Lab Results - Last 24 Hours (Table) 10/01/24 10/01/24 10/01/24 Range/Units 11:25 16:14 20:50 RBC (4.30-5.90) m/uL Hgb (13.0-17.5) gm/dL Hct (39.0-53.0) % Sodium (137-145) mmol/L Chloride (98-107) mmol/L Creatinine (0.66-1.25) mg/dL Glucose (74-99) mg/dL POC Glucose (mg/dL) 158 H 112 H 143 H (70-110) mg/dL 10/02/24 10/02/24 10/02/24 Range/Units 02:35 06:08 06:47 RBC 3.34 L (4.30-5.90) m/uL Hgb 10.6 L (13.0-17.5) gm/dL Hct 31.5 L (39.0-53.0) % Sodium (137-145) mmol/L Chloride (98-107) mmol/L Creatinine (0.66-1.25) mg/dL Glucose (74-99) mg/dL POC Glucose (mg/dL) 185 H 175 H (70-110) mg/dL 10/02/24 Range/Units 06:47 RBC (4.30-5.90) m/uL Hgb (13.0-17.5) gm/dL Hct (39.0-53.0) % Sodium 128 L (137-145) mmol/L Chloride 91 L (98-107) mmol/L Creatinine 4.07 H (0.66-1.25) mg/dL Glucose 165 H (74-99) mg/dL POC Glucose (mg/dL) (70-110) mg/dL Assessment and Plan Plan: Assessment: 1. End-stage renal disease maintained on hemodialysis on Thursday schedule. 2. Pneumonia status post antibiotics. 3. Diabetes mellitus. 4. Hypertension with chronic kidney disease. Stable. 5. Acute ischemic CVA. 6. A-fib with RVR maintained on Cardizem drip. Currently paused by cardiology. Plan: Hemodialysis Thursday. PEG tube placement scheduled for today.
[2024-10-02 11:40] LABS: Glucose,Whole Blood 174 mg/dL (70-110)
[2024-10-02] MEDS ORDERED: PROPOFOL 10 MG/ML 20 ML VIAL IV ONE (12:15)
[2024-10-02] MEDS ORDERED: LIDOCAINE 1% INJ 10MG/ML (20 ML MDV) ONE (12:15)
[2024-10-02] MEDS: IV FLUID CONTINUATION 1,000 ML IV ONE ×2 (12:16→12:33)
--- NOTE | 2024-10-02 12:39 | P.PN ---
Subjective Progress Note Date: 10/02/24 Principal diagnosis: Hospital course: Patient is a 79-year-old male with ESRD, presenting for syncope induced by cough. Patient is poor historian. He was recently admitted for similar symptoms on September 12 and subsequently discharged with doxycycline for treatment of tracheobronchitis for mucous plugging. Since this time patient has had persistent symptoms with sputum production. Denying fever, chills, shortness of breath, chest pain, palpitations at this time. Labs completed in emergency room significant for WBC 6.7, hemoglobin 10.0, sodium 132, potassium 5.0, bicarb 20, BUN 43, creatinine 5.31, glucose 260, A1c 7.3, ALP 146, proBNP 2840, viral respiratory panel is negative. EKG done in the ER independently interpreted showed sinus rhythm heart rate of 60, no ST segment elevation or depression seen, no T-wave inversions seen. Chest x-ray done independently interpreted in the ER showed hazy interstitial markings bilaterally 09/23/2024 Patient seen and examined at bedside. No acute events overnight. Will discontinue antibiotics and steroids. Today's labs significant for WBC 14.6, BUN 38, creatinine 4.2, glucose ranging from 416-209, procalcitonin negative, blood cultures pending with no growth thus far. 09/24/2024 Patient seen and examined at bedside. Overnight patient began having strokelike symptoms at around 4 AM as witnessed by in the room with new onset left- sided weakness, left-sided facial droop and slurred speech with difficulty swallowing. Code stroke was called. Initial CT head with no evidence of acute intracranial process, later MRI of brain with subacute/acute CVA involving right MCA predominantly right frontal lobe and insular cortex. Patient given 300 mg of aspirin rectally as could not tolerate oral swallowing. Neurology consulted. Dialysis today. Today's labs WBC 12.0, hemoglobin 11.3, sodium 133, BUN 78, creatinine 5.24, glucose 166. 09/25. Patient seen and examined. Patient is moving his left upper extremity more than yesterday, also lifting his left lower extremity. Family thinks that patient has improved compared to yesterday 09/26/24: Patient evaluated at bedside today. Patient's family mentioned that his strength is better but currently the patient is very tired as he was up all night coughing. Labs show hemoglobin 11.5, sodium 136, BUN 61, creatinine 5.22. Brain CT shows 0.4 cm petechial hemorrhage within the left parietal infarct may be present, increasing edema in the right parietal infarct as effacement of the sulk I with no midline shift or significant ventricle compression, old occipital watershed infarcts bilaterally. 09/27/24: Patient examined today. Dysphagia evaluation by CAR SHIFTER showed poor t oleration of PO trials exhibiting severe coughing with 2 attempts, continue strict NPO. Labs today show hemoglobin 10.6, sodium 135, BUN 64, creatinine 5.63. EEG done yesterday shows abnormal routine EEG, background slowing with history of mild encephalopathy, no focal slowing/epileptiform discharge/seizure. Hemodialysis today. 09/28/24: Patient evaluated at bedside. Patient had hemodialysis yesterday, 2L was removed. Labs today show WBC 10.8, hemoglobin 10.7, sodium 131, potassium 3.4, bicarb 31, BUN 35, creatinine 4.35. Repeat CT Brain showed overall similar examination with evolving right MCA territory infarct and trace petechial hemorrhage, no midline shift, Remote injuries to bilateral frontal lobes and left temporal lobe with encephalomalacia. 09/29/24: Patient seen and examined. Hemodialysis today. Labs today show hemoglobin 10.6, sodium 129, BUN 43, creatinine 5.34. 09/30/24: Patient evaluated today. Vitals show BP is 153/69. Labs today show Hb 10.5, Na 127, BUN 24, creatinine 4.15. EKG done yesterday independently interpreted as Atrial fibrillation with Rapid ventricular response. Hemodialysis yesterday, 2L of fluid was removed. Patient underwent the videofluoroscopic swallow study today. Patient's family was counseled about the importance of PEG tube. 10/01/24: Patient examined at bedside. BP today is 155/72. The family mentioned that the patient's right arm is swollen. Pateint denies any pain on the right arm. Labs today show hemoglobin 11, sodium 130, BUN 28, creatinine 5.07. Chest x-ray shows mild bilateral interstitial edema. PT and OT recommends RAFA place /24-7 care or rehab to maximize mobility efforts, improve functional status. 10/02. Patient seen and examined. Family at the bedside. Patient scheduled for PEG tube placement today Review of systems: Pertinent positives and negatives as discussed in HPI, a complete review of systems was performed and all other systems are negative. Vitals: Signs Reviewed Physical examination: General: nontoxic, no distress, appears at stated age Derm: warm, dry, intact Head: atraumatic, normocephalic, symmetric Eyes: Eye reacting to light, bilateral right gaze Mouth: no lip lesion, mucus membranes moist Cardiovascular: S1 S2 reg, no murmur Lungs: CTA bilateral, no rhonchi, no rales, no accessory muscle use Abdominal: soft, non-tender to palpataion Extremities: No cyanosis, clubbing, or pedal edema. Neuro: Mild left-sided facial droop, left upper extremity strength 3/5, left lower extremity 3/5 at this time. 5/5 right side upper and lower extremities Psych: well appearing, appropriate affect Assessment/Plan: Patient is a 79-year-old male with ESRD(TTS), presenting for cough induced sync ope. He has been admitted for respiratory distress. The patient then had a CODE STROKE and he was found to have an acute CVA due to new onset atrial fibrillation. Brain CT showed petechial hemorrhage. MBS study showed inconsistent swallow and high risk for aspiration, surgery consulted for PEG tube placement. PT and OT recommend rehab upon discharge. 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 # New onset Atrial fibrillation, Rapid ventricular response MRI brain with subacute CVA involving right MCA predominantly right frontal lobe and insular cortex Loop recorder interrogation showed new onset atrial fibrillation Brain CT shows 0.4 cm petechial hemorrhage within the left parietal infarct may be present, increasing edema in right parietal infarct as effacement of the sulci with no midline shift or significant ventricle compression, old occipital watershed infarcts bilaterally EEG done yesterday shows abnormal routine EEG, background slowing with history of mild encephalopathy, no focal slowing/epileptiform discharge/seizure Repeat CT Brain showed overall similar examination with evolving right MCA territory infarct and trace petechial hemorrhage, no midline shift. Remote injuries to bilateral frontal lobes and left temporal lobe with encephalomalacia Bubble study was inconclusive Dysphagia evaluation by CAR SHIFTER showed poor toleration of PO trials exhibiting severe coughing with 2 attempts, continue strict NPO Videofluoroscopic swallow study shows aspiration with thin liquids and suspected with nectar thick liquids, poor bolus transfer Continue IV Cardizem 15 mg/hr and Coreg to 25 mg PO BID Continue Keppra 500 mg twice daily, Lipitor 80 mg Continue Aspirin 300 mg rectally and Heparin 5000 unit SQ Q12HR Cardiology following, recommend no need for KARISHMA Neurology following, recommending to hold anticoagulation because of large in farct burden, can be resumed from 10/03 General surgery following, PEG tube scheduled for today #. Right upper extremity edema Duplex venous ultrasound negative for DVT # Respiratory distress # Cough induced syncope CT chest findings of moderate bilateral pleural effusions with associated atelectasis, no focal consolidation Repeat Chest x-ray shows mild bilateral interstitial edema. Continue bronchodilators Encourage incentive spirometry Pulmonology following # ESRD # Hyponatremia Hemodialysis Thursday schedule Continue dialysis per nephrology # Diabetes mellitus Low-dose insulin, ACHS protocol Chronic Medical Conditions #Hypertension #Peripheral neuropathyresume home medication #Hx of CVAas mentioned above History of present illness; Patient is a 79-year-old male with ESRD, presenting for syncope induced by cough. Patient is poor historian. He was recently admitted for similar symptoms on September 12 and subsequently discharged with doxycycline for treatment of tracheobronchitis for mucous plugging. Since this time patient has had persistent symptoms with sputum production. Denying fever, chills, shortness of breath, chest pain, palpitations at this time. Labs completed in emergency room significant for WBC 6.7, hemoglobin 10.0, sodium 132, potassium 5.0, bicarb 20, BUN 43, creatinine 5.31, glucose 260, A1c 7.3, ALP 146, proBNP 2840, viral respiratory panel is negative. EKG done in the ER independently interpreted showed sinus rhythm heart rate of 60, no ST segment elevation or depression seen, no T-wave inversions seen. Chest x-ray done independently interpreted in the ER showed hazy interstitial markings bilaterally 09/23/2024 Patient seen and examined at bedside. No acute events overnight. Will discontinue antibiotics and steroids. Today's labs significant for WBC 14.6, BUN 38, creatinine 4.2, glucose ranging from 416-209, procalcitonin negative, blood cultures pending with no growth thus far. 09/24/2024 Patient seen and examined at bedside. Overnight patient began having strokelike symptoms at around 4 AM as witnessed by in the room with new onset left- sided weakness, left-sided facial droop and slurred speech with difficulty swallowing. Code stroke was called. Initial CT head with no evidence of acute intracranial process, later MRI of brain with subacute/acute CVA involving right MCA predominantly right frontal lobe and insular cortex. Patient given 300 mg of aspirin rectally as could not tolerate oral swallowing. Neurology consulted. Dialysis today. Today's labs WBC 12.0, hemoglobin 11.3, sodium 133, BUN 78, creatinine 5.24, glucose 166. 09/25. Patient seen and examined. Patient is moving his left upper extremity more than yesterday, also lifting his left lower extremity. Family thinks that patient has improved compared to yesterday REVIEW OF SYSTEMS: Pertinent positives and negatives noted in HPI. PHYSICAL EXAMINATION: Vitals reviewed GENERAL: No acute distress. Well developed, well nourished. HEENT: Eye reacting to light, bilateral right gaze. CARDIOVASCULAR: S1 and S2 present. No murmurs, rubs, or gallops. PULMONARY: Chest is clear to auscultation, no wheezing, rhonchi, or crackles. ABDOMEN: Soft, nontender, nondistended, normoactive bowel sounds. No palpable organomegaly. MUSCULOSKELETAL: No apparent joint swelling and deformities. EXTREMITIES: No apparent cyanosis, clubbing, or pedal edema. NEUROLOGICAL: Mild left-sided facial droop, left upper extremity strength 3/5, left lower extremity 3/5 at this time. 5/5 right side upper and lower extremities. SKIN: No apparent rashes. Assessment and plan Patient is a 79-year-old male with ESRD, presenting for cough induced syncope. # Acute CVA involving right MCA New onset paroxysmal atrial fibrillation currently in NSR MRI brain with subacute CVA involving right MCA predominantly right frontal lobe and insular cortex Given aspirin 300 rectally, begin aspirin 81 daily Begin atorvastatin 80 mg at bedtime -Speech consulted Loop recorder interrogation showed new onset atrial fibrillation Continue IV Cardizem Cardiology following Neurology following, recommending repeating CT head tomorrow if does not show any worsening of stroke, started on heparin # Respiratory distress #Cough induced syncope CT chest findings of moderate bilateral pleural effusions with associated atelectasis, no focal consolidation Continue bronchodilators - encourage incentive spirometry Pulmonology following #ESRD Continue lisinopril nephrology #Diabetes mellitusbegin low-dose insulin, ACHS protocol Chronic Medical Conditions #Hypertension hold for now #Peripheral neuropathyresume home medication #Hx of CVAas mentioned above Objective - Vital Signs Vital signs: Vital Signs Temp 98.3 F 10/02/24 11:30 Pulse 77 10/02/24 11:30 Resp 16 10/02/24 11:30 BP 166/75 10/02/24 11:30 Pulse Ox 98 10/02/24 11:30 FiO2 60 09/26/24 16:00 Intake & Output 10/01/24 10/02/24 10/02/24 18:59 06:59 18:59 Intake Total 125 600 113.583 Output Total 5075 Balance 125 -4475 113.583 Weight 84 kg Intake: IV 33 Invasive Line 7 8 Intake, IV Titration 125 80.583 Amount Diltiazem 125 mg In 125 80.583 Sodium Chloride 0.9% 100 ml @ 15 MG/HR 15 mls/hr IV .Q8H20M [facility] Rx#: [id number] Oral 0 Hemodialysis 600 Output: Urine 475 Hemodialysis 2600 Hemodialysis Net Amount 2000 Other: Voiding Method Indwelling Catheter Indwelling Catheter Indwelling Catheter # Bowel Movements 0 1 - Labs CBC & Chem 7: 10/02/24 06:47 10/02/24 06:47 Labs: Abnormal Lab Results - Last 24 Hours (Table) 10/01/24 10/01/24 10/02/24 Range/Units 16:14 20:50 02:35 RBC (4.30-5.90) m/uL Hgb (13.0-17.5) gm/dL Hct (39.0-53.0) % Sodium (137-145) mmol/L Chloride (98-107) mmol/L Creatinine (0.66-1.25) mg/dL Glucose (74-99) mg/dL POC Glucose (mg/dL) 112 H 143 H 185 H (70-110) mg/dL 10/02/24 10/02/24 10/02/24 Range/Units 06:08 06:47 06:47 RBC 3.34 L (4.30-5.90) m/uL Hgb 10.6 L (13.0-17.5) gm/dL Hct 31.5 L (39.0-53.0) % Sodium 128 L (137-145) mmol/L Chloride 91 L (98-107) mmol/L Creatinine 4.07 H (0.66-1.25) mg/dL Glucose 165 H (74-99) mg/dL POC Glucose (mg/dL) 175 H (70-110) mg/dL 10/02/24 Range/Units 11:38 RBC (4.30-5.90) m/uL Hgb (13.0-17.5) gm/dL Hct (39.0-53.0) % Sodium (137-145) mmol/L Chloride (98-107) mmol/L Creatinine (0.66-1.25) mg/dL Glucose (74-99) mg/dL POC Glucose (mg/dL) 174 H (70-110) mg/dL
--- NOTE | 2024-10-02 12:57 | P.PN ---
Subjective Progress Note Date: 10/02/24 Principal diagnosis: Bronchitis, syncope. This is a 79-year-old male with history of end-stage renal disease, on hemodialysis Thursday and Thursday the patient himself is a very poor historian, most of the information obtained was from his daughter at bedside. The last couple of weeks, patient has been coughing and at times passing out, he had almost a dozen episodes of cough induced syncope. And never smoked, he has no history of COPD, his chest x-ray and CT of the chest done on this admission showed moderate bilateral pleural effusions with associated atelectasis. Chest x-ray showed mild interstitial prominence. Patient had his dialysis today and has CT of the chest done after dialysis clearly showed evidence of moderate- sized bilateral pleural effusions not clearly appreciated on the chest x-ray. Labs today showed negative screening for influenza A, influenza B, RSV and COVID-19. CBC was noted to be unremarkable. Hemoglobin is a bit low at 10 basi c metabolic profile is normal BUN is 43 creatinine 5.31, BNP level is 2840. After reviewing the patient chart, apparently the patient was recently in the hospital from and he was discharged on diagnosed as having tracheobronchitis, pulmonary was not consulted on his last admission. However patient was discharged home on doxycycline at 100 mg p.o. twice daily. That did not seem to make any difference on his cough and did not make any difference on his cough induced syncope. Echocardiogram on his last admission showed no evidence of LV dysfunction, no evidence of significant valvular heart disease and there was no evidence of pulmonary hypertension. His ejection fraction was 55 to 60% The patient is seen today September 23, 2024 in follow-up on the regular medical floor. He is currently sitting up at the bedside having breakfast. Awake and alert in no acute distress. Maintaining good O2 saturations in the 90s on room air. He did receive hemodialysis yesterday with 2 L removed. White count 14.6. Hemoglobin 11.4. Platelets 309. Sodium 135. Potassium 4.4. Bicarb 25. BUN 39. Creatinine 4.2. Glucose 247. Procalcitonin negative at 0.21. He is currently on DuoNeb and elations, Solu-Medrol, antibiotics in the form of ceftriaxone and azithromycin. The patient is seen today September 26, 2024 in follow-up on the selective care unit. He is currently resting in bed. Maintaining O2 saturations in the 90s on room air. Has been afebrile. Hemodynamically stable. Remains with a left- sided arm and leg drift. Follow-up CT scan of the brain revealed a 0.4 cm petechial hemorrhage within the left parietal infarct. Increasing edema in the right parietal infarct has effacement of the Clint. No midline shift or significant ventricle compression. Old occipital watershed infarcts bilaterally. Neurology is following closely. White count 10.2. Hemoglobin 11.5. Platelets 278. Sodium 136. Potassium 3.9. Bicarb 27. BUN 61. Creatinine 5.22. Glucose 140. He remains on a Cardizem drip at 5 mg/h. Heparin placed on hold. Continued on Keppra. Progress note dated September 27, 2024. 79-year-old male who is seen today in room 370. Currently, the patient is receiving D5W at 50 cc an hour. The patient is currently on room air. He did have hemodialysis today. 2 L of fluid was removed. He is resting comfortably in bed. No acute distress. No respiratory distress. Current labs include a white count 10.6, hemoglobin 10.6, hematocrit 31.1, and a platelet count of 267,000. Sodium 135, potassium 3.6, chlorides 99, CO2 27, anion gap 9, BUN 64, creatinine 5.63. Glucose is 90. Calcium is 8.1. The scan of the brain shows an overall similar examination with evolving right MCA territory infarct and trace petechial hemorrhage. No midline shift. Remote injuries to the bilateral frontal lobes and left temporal lobe with encephalomalacia. Progress note dated September 28, 2024. 79-year-old male seen in room 370. The patient is currently on room air. Saturations are 100%. The patient is receiving D5W at 50 cc an hour. The patient had hemodialysis yesterday. 2 L was removed. Currently, he is resting comfortably in no distress. Family members are in the room with the patient. Current labs include a white count of 10.8, hemoglobin 10.7, hematocrit 31.3, and a normal platelet count of 253,000. Sodium 131, potassium 3.4, chlorides 91, CO2 31, anion gap 9, BUN 35, and creatinine 4.35. Glucose is 170. Calcium is 8.3. Progress note dated September 29, 2024. 79-year-old male seen again in room 370. The patient is currently undergoing hemodialysis, with a goal of removal of 2 L. The patient is on room air. He is on a Cardizem drip at 15 mg an hour. He is getting D5W at 50 cc an hour. Current labs include a white count 9.6, hemoglobin 10.6, hematocrit 31.6, and a platelet count of 262,000. Sodium 129, potassium 3.5, chloride 94, CO2 26, BUN 43, creatinine 5.34. Glucose 123. Calcium 8.2. Progress note dated September 30, 2024. 79-year-old male seen in room 370. The patient is resting comfortably in bed. He is on room air. Saturations are 100%. The patient is getting D5W at 50 cc an hour. He is also on Cardizem drip at 5 mg an hour. Current labs include a white count 7.6, hemoglobin 10.5, hematocrit 30.9, and a platelet count of 263,000. Sodium 127, potassium 3.5, chlorides 91, CO2 28, BUN 24, creatinine 4.15. Glucose is 144. Calcium is 8.6. Progress note dated October 01, 2024. 79-year-old male seen in room 370. The patient is resting comfortably in bed. He is currently on room air. He is getting D5W at 50 cc an hour. He continues on Cardizem drip at 5 mg an hour. The plan is for hemodialysis today. Current labs include a white count 6.9, hemoglobin 11, hematocrit 32.4, and a platelet count of 2 94,000. Sodium 130, potassium 3.6, chloride 72, CO2 29, BUN 28, creatinine 5.07. Glucose is 158. Calcium 8.8. Doppler of the right upper extremity, reveals no DVT. Chest x-ray from yesterday shows some very mild interstitial edema. Progress note dated October 02, 2024. 79-year-old male seen today in room 370. He is currently on room air. The patient is getting D5W at 50 cc an hour. The patient is no longer on Cardizem. The patient is apparently scheduled to have a PEG tube placed by surgery today. Family members are in the room. The patient is in no distress. Current labs include a white count 7.6, hemoglobin 10.6, hematocrit 31.5, and a normal platelet count. Sodium 128, potassium 3.7, chloride 91, CO2 28, BUN 18, creatinine 4.07. Glucose 174. Calcium 8.7. Objective - Vital Signs Vital signs: Vital Signs Temp 98.3 F 10/02/24 11:30 Pulse 77 10/02/24 11:30 Resp 16 10/02/24 11:30 BP 166/75 10/02/24 11:30 Pulse Ox 98 10/02/24 11:30 FiO2 60 09/26/24 16:00 Intake & Output 10/01/24 10/02/24 10/02/24 18:59 06:59 18:59 Intake Total 125 600 113.583 Output Total 5075 Balance 125 -4475 113.583 Weight 84 kg Intake: IV 33 Invasive Line 7 8 Intake, IV Titration 125 80.583 Amount Diltiazem 125 mg In 125 80.583 Sodium Chloride 0.9% 100 ml @ 15 MG/HR 15 mls/hr IV .Q8H20M [facility] Rx#: [id number] Oral 0 Hemodialysis 600 Output: Urine 475 Hemodialysis 2600 Hemodialysis Net Amount 2000 Other: Voiding Method Indwelling Catheter Indwelling Catheter Indwelling Catheter # Bowel Movements 0 1 - Exam No acute distress, oriented 3. HEENT examination is grossly unremarkable. Mucous membranes are moist. No oral lesions. Neck supple. Full range of motion. No adenopathy thyromegaly or neck vein distention. Cardiovascular examination reveals an irregular rhythm and rate. S1-S2 normal. No S3 or S4. No discernible murmur noted. Lungs reveal bibasilar crackles. No wheezes or rhonchi. Breath sounds are equal bilaterally. The patient is currently on room air. Abdomen soft bowel sounds are heard. No masses or tenderness. Extremities are intact. No cyanosis clubbing or edema. Skin is without rash or lesion. Neurologic examination reveals left-sided weakness. - Labs CBC & Chem 7: 10/02/24 06:47 10/02/24 06:47 Labs: Abnormal Lab Results - Last 24 Hours (Table) 10/01/24 10/01/24 10/02/24 Range/Units 16:14 20:50 02:35 RBC (4.30-5.90) m/uL Hgb (13.0-17.5) gm/dL Hct (39.0-53.0) % Sodium (137-145) mmol/L Chloride (98-107) mmol/L Creatinine (0.66-1.25) mg/dL Glucose (74-99) mg/dL POC Glucose (mg/dL) 112 H 143 H 185 H (70-110) mg/dL 10/02/24 10/02/24 10/02/24 Range/Units 06:08 06:47 06:47 RBC 3.34 L (4.30-5.90) m/uL Hgb 10.6 L (13.0-17.5) gm/dL Hct 31.5 L (39.0-53.0) % Sodium 128 L (137-145) mmol/L Chloride 91 L (98-107) mmol/L Creatinine 4.07 H (0.66-1.25) mg/dL Glucose 165 H (74-99) mg/dL POC Glucose (mg/dL) 175 H (70-110) mg/dL 10/02/24 Range/Units 11:38 RBC (4.30-5.90) m/uL Hgb (13.0-17.5) gm/dL Hct (39.0-53.0) % Sodium (137-145) mmol/L Chloride (98-107) mmol/L Creatinine (0.66-1.25) mg/dL Glucose (74-99) mg/dL POC Glucose (mg/dL) 174 H (70-110) mg/dL Assessment and Plan Assessment: Ischemic stroke involving the right MCA territory predominantly on the right frontal lobe and insular cortex. Follow-up CT scan today revealed questionable petechial hemorrhage over the right frontal parietal. Cough induced syncope. Anticipated PEG tube placement, October 02, 2024. Bilateral pleural effusions/most likely secondary to chronic renal failure or diastolic congestive heart failure, patient had normal LV function based on his last echocardiogram. Benign essential hypertension. Dyslipidemia. History of CVA. Diabetes with diabetic peripheral neuropathy. History of seizures. End-stage renal disease, on hemodialysis Thursday schedule. Plan: Plan dated September 27, 2024. The patient is seen today in room 370. He is resting comfortably in bed. He is on room air. He is getting D5W at 50 cc an hour. The patient did have hemodialysis today. 2 L of fluid was removed. Labs, x-rays, and all med ications are reviewed. Repeat CT scan of the brain, showed findings that were similar to prior CT scan. Nothing new was noted. Prognosis is guarded. Plan dated September 28, 2024. The patient is seen again in room 370. The patient had hemodialysis yesterday. Labs, x-rays, and medications are reviewed. The patient is currently on room air. Saturations are 100%. He is receiving D5W at 50 cc an hour. We will continue to follow make recommendations along the way. Prognosis is guarded. Plan dated September 29, 2024. The patient is seen today in room 370. The patient is currently undergoing hemodialysis. The plan is to remove 2 L of fluid today. The patient is on room air. He is getting D5W at 50 cc an hour and Cardizem drip at 15 mg an hour. Labs, x-rays, and all medications are reviewed. The patient is overall prognosis remains guarded. We will continue to follow the patient and make recommendations where appropriate. Plan dated September 30, 2024. The patient is again seen in room 370. The patient appears to be relatively stable. He is on room air. Saturations are 100%. The patient is getting D5W at 50 cc an hour. In addition, he is on a Cardizem drip at 5 mg an hour. Labs, x-rays, and all medications are reviewed. We will continue to follow make recommendations. Prognosis is guarded. No additional recommendations at this time. Plan dated October 01, 2024. The patient is seen today in room 370. Clinically, the patient is doing well. He is on room air. He continues on a Cardizem drip at 5 mg an hour. He is getting D5W at 50 cc an hour. The plan is for hemodialysis today. Labs, x- rays, and all medications are reviewed. We will continue to follow. Prognosis is guarded. Plan dated October 02, 2024. The patient is seen in room 370. The patient is currently on room air. He is getting D5W at 50 cc an hour. Cardizem drip has been turned off. The patient is in normal sinus rhythm. Labs, x-rays, and medications are reviewed. The patient is scheduled to have a PEG tube placed today by general surgery. We will continue to follow. Prognosis is guarded. No additional recommendations are made. Time with Patient: Less than 30
--- NOTE | 2024-10-02 13:49 | P.PN ---
Subjective HISTORY OF PRESENT ILLNESS: This is a 79-year-old male with a past medical history significant for coronary artery disease, hypertension, hyperlipidemia, CVA, diabetes, and chronic kidney disease. Patient follows in the office with Dr. Fischer. We have been asked to see the patient in consultation for CVA and loop recorder interrogation. Patient examined at the bedside. Patient was hospitalized earlier this month for cough induced syncope. Patient was discharged home and presented back to the hospital with similar symptoms. While in the hospital he developed left-sided weakness and was found to be positive for CVA. Patient currently denies chest pain or pressure. Denies shortness of breath. The patient was previously prescribed Eliquis for unknown reason however he was not currently taking this. Family has denied any history of atrial fibrillation or PE/DVT. Patient is currently maintaining sinus mechanism. Loop recorder interrogation performed revealing episodes of atrial fibrillation. DIAGNOSTICS: - EKG reveals sinus mechanism with no signs of acute ischemia - Chest xray hazy interstitial markings seen bilaterally may relate to infectious/inflammatory process. - Laboratory data: WBC 10.2. Hemoglobin 12.0. Platelet count 298. Sodium 134. Potassium 4.1. BUN 49. Creatinine 4.27. - Current home cardiac medications include aspirin 162.5 mg daily, Lipitor 20 mg at night, Imdur 120 mg daily, midodrine 10 mg 3 times a day as needed, Procardia 60 mg twice a day, Demadex 20 mg daily, carvedilol 12.5 mg twice a day - Most recent echocardiogram obtained in August 2024 revealed ejection fraction 55 to 60% with no significant valvular disease - Cardiac catheterization history: 2008 revealing approximately 40%, mid LAD 50%, diagonal 50%, circumflex 50%, and nondominant RCA with no significant stenosis -Patient underwent Lexiscan stress test in March 2024 which was negative for ischemia 09/26/2024 Was seen and examined resting comfortably in bed. [place] any chest discomfort or shortness of breath. Continues to have issues with speech and swallowing. Facial droop noted. Awaiting swallow eval. Anticoagulation has not been initiated at this point. CT scan done this morning showed a 0.4 cm petechial hemorrhage within the left parietal infarct may be present, increasing edema in the right parietal infarct as effacement of the sulci, no midline shift or significant ventricle compression, old occipital watershed infarcts bilaterally. We are awaiting input from neurology in regards to anticoagulation. 09/27/2024 Patient was seen and examined resting comfortably in bed. He was seen by neurology yesterday and anticoagulation remains on hold due to moderate size stroke as well as questionable petechial hemorrhage. Plan for repeat CT of the head. 09/28/2024 Patient mated to atrial fibrillation RVR and was started on Cardizem drip. Patient's blood pressure was noticed to be fluctuating today. 09/29/24 Patient seen and examined. Repeat blood work reveals hemoglobin 10.6, BUN 43 creatinine 5.34, potassium 3.5 and sodium 129. Blood pressure 136/63, heart rate in the 60s, pulse ox 97 percent on room air. Telemetry remains atrial fibrillation running in the 70s. Patient is currently on IV Cardizem at 15 mg/h. Patient is quite sleepy today. We will plan to start patient on full anticoagulation once cleared by neurology. No plan for KARISHMA. 09/30/24 P unfortunately, patient failed swallow evaluation and family is considering tube feeding. atient seen and examined. He is scheduled for modified barium swallow today. Patient has been maintained on Cardizem drip as he is not taking any oral medications. 10/01/2024 Patient examined this morning at the bedside. Patient's family is present. Patient is sitting comfortably in bed. Telemetry reveals sinus mechanism. He has been evaluated by general surgery and is scheduled for EGD with PEG tube placement on 10/02/2023 10/02/2024 Patient examined this morning the bedside. His family is present. Patient is more awake today. No complaints of chest pain or shortness of breath. He complains of a headache this morning. Patient is scheduled for EGD with PEG tube placement today by general surgery. PHYSICAL EXAM: VITAL SIGNS: Reviewed. GENERAL: Well-developed in no acute distress. NECK: Supple. No JVD or thyromegaly LUNGS: Respirations even and unlabored. Lungs essentially clear to auscultation bilaterally. HEART: Regular rate and rhythm. S1 and S2 heard. EXTREMITIES: Left-sided weakness. Normal range of motion. No clubbing or cyanosis. Peripheral pulses intact. No lower extremity edema ASSESSMENT: Acute/subacute CVA involving right MCA territory New onset atrial fibrillation, currently rate controlled Recent diagnosis and hospitalization for tussive syncope Nonobstructive CAD, per cath 2009 History of loop recorder implantation, [employer], 2020 Chronic kidney disease on hemodialysis Hypertension Hyperlipidemia History of CVA Diabetes End-stage renal disease on hemodialysis PLAN: Continue telemetry monitoring Patient currently NPO and unable to take oral medications. Per nursing, IV Cardizem has been paused as heart rates are in the 60s. Patient scheduled for EGD with PEG tube placement today with general surgery Case discussed with neurology. Plan to begin anticoagulation on 10/03/2024 Further recommendations pending patient course Nurse practitioner note has been reviewed by physician. Signing provider agrees with the documented findings, assessment, and plan of care documented by EMERGENCY DEPT TECH as a scribe. Objective - Vital Signs Vital signs: Vital Signs Temp 98.3 F 10/02/24 11:30 Pulse 77 10/02/24 11:30 Resp 16 10/02/24 11:30 BP 166/75 10/02/24 11:30 Pulse Ox 98 10/02/24 11:30 FiO2 60 09/26/24 16:00 Intake & Output 10/01/24 10/02/24 10/02/24 18:59 06:59 18:59 Intake Total 125 600 113.583 Output Total 5075 Balance 125 -4475 113.583 Weight 84 kg Intake: IV 33 Invasive Line 7 8 Intake, IV Titration 125 80.583 Amount Diltiazem 125 mg In 125 80.583 Sodium Chloride 0.9% 100 ml @ 15 MG/HR 15 mls/hr IV .Q8H20M [facility] Rx#: [id number] Oral 0 Hemodialysis 600 Output: Urine 475 Hemodialysis 2600 Hemodialysis Net Amount 2000 Other: Voiding Method Indwelling Catheter Indwelling Catheter Indwelling Catheter # Bowel Movements 0 1 - Labs CBC & Chem 7: 10/02/24 06:47 10/02/24 06:47 Labs: Abnormal Lab Results - Last 24 Hours (Table) 10/01/24 10/01/24 10/02/24 Range/Units 16:14 20:50 02:35 RBC (4.30-5.90) m/uL Hgb (13.0-17.5) gm/dL Hct (39.0-53.0) % Sodium (137-145) mmol/L Chloride (98-107) mmol/L Creatinine (0.66-1.25) mg/dL Glucose (74-99) mg/dL POC Glucose (mg/dL) 112 H 143 H 185 H (70-110) mg/dL 10/02/24 10/02/24 10/02/24 Range/Units 06:08 06:47 06:47 RBC 3.34 L (4.30-5.90) m/uL Hgb 10.6 L (13.0-17.5) gm/dL Hct 31.5 L (39.0-53.0) % Sodium 128 L (137-145) mmol/L Chloride 91 L (98-107) mmol/L Creatinine 4.07 H (0.66-1.25) mg/dL Glucose 165 H (74-99) mg/dL POC Glucose (mg/dL) 175 H (70-110) mg/dL 10/02/24 Range/Units 11:38 RBC (4.30-5.90) m/uL Hgb (13.0-17.5) gm/dL Hct (39.0-53.0) % Sodium (137-145) mmol/L Chloride (98-107) mmol/L Creatinine (0.66-1.25) mg/dL Glucose (74-99) mg/dL POC Glucose (mg/dL) 174 H (70-110) mg/dL
[2024-10-02 16:54] LABS: Glucose,Whole Blood 214 mg/dL (70-110)
[2024-10-02 20:06] LABS: Glucose,Whole Blood 196 mg/dL (70-110)
[2024-10-02] MEDS: LORazepam 2 MG/ML INJ IV STA (21:16)
[2024-10-02] MEDS: ACETAMINOPHEN IV (For NPO) 1,000 MG in EMPTY BAG 1 BAG IVPB PRN (23:49)
[2024-10-03 06:19] LABS: Glucose,Whole Blood 136 mg/dL (70-110)
--- NOTE | 2024-10-03 08:06 | P.OP ---
Date of Procedure: 10/02/24 Preoperative Diagnosis: Severe Protein Malnutrition Postoperative Diagnosis: Severe Protein Malnutrition Procedure(s) Performed: EGD with PEG Tube Insertion Anesthesia: other (Sedation) Surgeon: Vinny Stewart Pathology: none sent Condition: stable Disposition: PACU Description of Procedure: After informed consent was obtained, the patient was brought to the endoscopy suite. He was placed in the supine position and was given IV sedation by the Anesthesia Department. An EGD was performed from above. The stomach was transilluminated and an optimal position for the PEG tube was identified using the single poke method. The skin was infiltrated with local and the needle and sheath were inserted through the abdomen into the stomach under direct visualization. The needle was removed and a guidewire was inserted through the sheath. The guidewire was grasped from above with a snare by the endoscopist. It was removed completely and the Ponsky PEG tube was secured to the guidewire. The guidewire and PEG tube were then pulled through the mouth and esophagus and snug to the abdominal wall. There was no evidence of bleeding. The Bolster was placed on the PEG site. The patient tolerated the procedure well and was transferred to recovery room in stable condition. He will be started on tube feedings in 6 hours with aspiration precautions and dietary to determine his nutritional goal.
[2024-10-03 08:15] LABS: HGB 10.4 gm/dL (13.0-17.5); MCH 32.4 pg (25.0-35.0); MCHC 34.8 g/dL (31.0-37.0); MCV 93.1 fL (80.0-100.0); Mean Platelet Volume 7.2; Platelet Count 309 k/uL (150-450); RBC 3.22 m/uL (4.30-5.90); RDW 12.6 % (11.5-15.5)
[2024-10-03 08:29] LABS: African American GFR (CKD) 11 (>60 ml/min/1.73 sqM); Anion Gap 12 mmol/L; Blood Urea Nitrogen 25 mg/dL (9-20); Calcium 8.6 mg/dL (8.4-10.2); Carbon Dioxide 26 mmol/L (22-30); Chloride 88 mmol/L (98-107); Glucose 120 mg/dL (74-99); Non-African American GFR(CKD) 10 (>60 ml/min/1.73 sqM); Potassium 3.5 mmol/L (3.5-5.1); Sodium 126 mmol/L (137-145)
[2024-10-03 11:31] LABS: Glucose,Whole Blood 122 mg/dL (70-110)
--- NOTE | 2024-10-03 13:09 | P.PN ---
Subjective Patient is seen for follow-up for end-stage renal disease. Patient is sleeping, he is arousable. Family present at bedside. Status post PEG tube placement on 10/02/2024 Scheduled for hemodialysis in a.m. Objective - Vital Signs Vital signs: Vital Signs Temp 98.9 F 10/03/24 11:19 Pulse 76 10/03/24 11:19 Resp 18 10/03/24 11:19 BP 155/84 10/03/24 11:19 Pulse Ox 100 10/03/24 11:19 FiO2 60 09/26/24 16:00 Intake & Output 10/02/24 10/03/24 10/03/24 18:59 06:59 18:59 Intake Total 123.583 20 10 Output Total 200 Balance 123.583 -180 10 Weight 85 kg 85 kg Intake: IV 43 20 10 Invasive Line 7 18 20 10 Intake, IV Titration 80.583 Amount Diltiazem 125 mg In 80.583 Sodium Chloride 0.9% 100 ml @ 15 MG/HR 15 mls/hr IV .Q8H20M [facility] Rx#: [id number] Output: Urine 200 Other: Voiding Method Indwelling Catheter Indwelling Catheter Indwelling Catheter # Bowel Movements 1 - Exam patient is awake, comfortable, no acute distress. Examination of the heart S1 and S2 Examination of the lungs bilateral breath sounds are heard decreased breath sounds at the bases Abdomen is soft nontender Examination of lower extremity shows no significant edema - Labs CBC & Chem 7: 10/03/24 07:17 10/03/24 07:17 Labs: Abnormal Lab Results - Last 24 Hours (Table) 10/02/24 10/02/24 10/03/24 Range/Units 16:51 20:04 06:15 WBC (3.8-10.6) k/uL RBC (4.30-5.90) m/uL Hgb (13.0-17.5) gm/dL Hct (39.0-53.0) % Sodium (137-145) mmol/L Chloride (98-107) mmol/L BUN (9-20) mg/dL Creatinine (0.66-1.25) mg/dL Glucose (74-99) mg/dL POC Glucose (mg/dL) 214 H 196 H 136 H (70-110) mg/dL 10/03/24 10/03/24 10/03/24 Range/Units 07:17 07:17 11:30 WBC 12.0 H (3.8-10.6) k/uL RBC 3.22 L (4.30-5.90) m/uL Hgb 10.4 L (13.0-17.5) gm/dL Hct 30.0 L (39.0-53.0) % Sodium 126 L (137-145) mmol/L Chloride 88 L (98-107) mmol/L BUN 25 H (9-20) mg/dL Creatinine 5.21 H (0.66-1.25) mg/dL Glucose 120 H (74-99) mg/dL POC Glucose (mg/dL) 122 H (70-110) mg/dL Assessment and Plan Assessment: 1. End-stage renal disease maintained on hemodialysis on Thursday schedule. 2. Pneumonia maintained on antibiotics. 3. Diabetes mellitus. 4. Hypertension with chronic kidney disease. Exacerbated by steroids. 5. Acute/Subacute CVA-status post PEG tube placement 6. A-fib with RVR status post Cardizem drip Plan: Hemodialysis in a.m.
--- NOTE | 2024-10-03 14:14 | P.PN ---
Subjective HISTORY OF PRESENT ILLNESS: This is a 79-year-old male with a past medical history significant for coronary artery disease, hypertension, hyperlipidemia, CVA, diabetes, and chronic kidney disease. Patient follows in the office with Dr. Fischer. We have been asked to see the patient in consultation for CVA and loop recorder interrogation. Patient examined at the bedside. Patient was hospitalized earlier this month for cough induced syncope. Patient was discharged home and presented back to the hospital with similar symptoms. While in the hospital he developed left-sided weakness and was found to be positive for CVA. Patient currently denies chest pain or pressure. Denies shortness of breath. The patient was previously prescribed Eliquis for unknown reason however he was not currently taking this. Family has denied any history of atrial fibrillation or PE/DVT. Patient is currently maintaining sinus mechanism. Loop recorder interrogation performed revealing episodes of atrial fibrillation. DIAGNOSTICS: - EKG reveals sinus mechanism with no signs of acute ischemia - Chest xray hazy interstitial markings seen bilaterally may relate to infectious/inflammatory process. - Laboratory data: WBC 10.2. Hemoglobin 12.0. Platelet count 298. Sodium 134. Potassium 4.1. BUN 49. Creatinine 4.27. - Current home cardiac medications include aspirin 162.5 mg daily, Lipitor 20 mg at night, Imdur 120 mg daily, midodrine 10 mg 3 times a day as needed, Procardia 60 mg twice a day, Demadex 20 mg daily, carvedilol 12.5 mg twice a day - Most recent echocardiogram obtained in August 2024 revealed ejection fraction 55 to 60% with no significant valvular disease - Cardiac catheterization history: 2008 revealing approximately 40%, mid LAD 50%, diagonal 50%, circumflex 50%, and nondominant RCA with no significant stenosis -Patient underwent Lexiscan stress test in March 2024 which was negative for ischemia 09/26/2024 Was seen and examined resting comfortably in bed. [place] any chest discomfort or shortness of breath. Continues to have issues with speech and swallowing. Facial droop noted. Awaiting swallow eval. Anticoagulation has not been initiated at this point. CT scan done this morning showed a 0.4 cm petechial hemorrhage within the left parietal infarct may be present, increasing edema in the right parietal infarct as effacement of the sulci, no midline shift or significant ventricle compression, old occipital watershed infarcts bilaterally. We are awaiting input from neurology in regards to anticoagulation. 09/27/2024 Patient was seen and examined resting comfortably in bed. He was seen by neurology yesterday and anticoagulation remains on hold due to moderate size stroke as well as questionable petechial hemorrhage. Plan for repeat CT of the head. 09/28/2024 Patient mated to atrial fibrillation RVR and was started on Cardizem drip. Patient's blood pressure was noticed to be fluctuating today. 09/29/24 Patient seen and examined. Repeat blood work reveals hemoglobin 10.6, BUN 43 creatinine 5.34, potassium 3.5 and sodium 129. Blood pressure 136/63, heart rate in the 60s, pulse ox 97 percent on room air. Telemetry remains atrial fibrillation running in the 70s. Patient is currently on IV Cardizem at 15 mg/h. Patient is quite sleepy today. We will plan to start patient on full anticoagulation once cleared by neurology. No plan for KARISHMA. 09/30/24 P unfortunately, patient failed swallow evaluation and family is considering tube feeding. atient seen and examined. He is scheduled for modified barium swallow today. Patient has been maintained on Cardizem drip as he is not taking any oral medications. 10/01/2024 Patient examined this morning at the bedside. Patient's family is present. Patient is sitting comfortably in bed. Telemetry reveals sinus mechanism. He has been evaluated by general surgery and is scheduled for EGD with PEG tube placement on 10/02/2023 10/02/2024 Patient examined this morning the bedside. His family is present. Patient is more awake today. No complaints of chest pain or shortness of breath. He complains of a headache this morning. Patient is scheduled for EGD with PEG tube placement today by general surgery. 10/03/2024 Patient examined this morning. Patient is lethargic at the time of examination. He underwent EGD with PEG tube placement yesterday. Vital signs are stable. Telemetry reveals sinus mechanism. PHYSICAL EXAM: VITAL SIGNS: Reviewed. GENERAL: Well-developed in no acute distress. NECK: Supple. No JVD or thyromegaly LUNGS: Respirations even and unlabored. Lungs essentially clear to auscultation bilaterally. HEART: Regular rate and rhythm. S1 and S2 heard. EXTREMITIES: Left-sided weakness. Normal range of motion. No clubbing or cyanosis. Peripheral pulses intact. No lower extremity edema ASSESSMENT: Acute/subacute CVA involving right MCA territory New onset atrial fibrillation, currently rate controlled Recent diagnosis and hospitalization for tussive syncope Nonobstructive CAD, per cath 2008 History of loop recorder implantation, [employer], 2020 Chronic kidney disease on hemodialysis Hypertension Hyperlipidemia History of CVA Diabetes End-stage renal disease on hemodialysis PLAN: Continue telemetry monitoring Patient able to take medications today via PEG tube. Coreg resumed. Plan was to begin anticoagulation today per neurology recommendations. However patient is lethargic this morning at the time of examination. We will begin Eliquis today pending clearance from neurology. Further recommendations pending patient course Nurse practitioner note has been reviewed by physician. Signing provider agrees with the documented findings, assessment, and plan of care documented by TRAFFIC MONITOR SPECIALIST as a scribe. Objective - Vital Signs Vital signs: Vital Signs Temp 98.9 F 10/03/24 11:19 Pulse 76 10/03/24 11:19 Resp 18 10/03/24 11:19 BP 155/84 10/03/24 11:19 Pulse Ox 100 10/03/24 11:19 FiO2 60 09/26/24 16:00 Intake & Output 10/02/24 10/03/24 10/03/24 18:59 06:59 18:59 Intake Total 123.583 20 10 Output Total 200 Balance 123.583 -180 10 Weight 85 kg 85 kg Intake: IV 43 20 10 Invasive Line 7 18 20 10 Intake, IV Titration 80.583 Amount Diltiazem 125 mg In 80.583 Sodium Chloride 0.9% 100 ml @ 15 MG/HR 15 mls/hr IV .Q8H20M [facility] Rx#: [id number] Output: Urine 200 Other: Voiding Method Indwelling Catheter Indwelling Catheter Indwelling Catheter # Bowel Movements 1 - Labs CBC & Chem 7: 10/03/24 07:17 10/03/24 07:17 Labs: Abnormal Lab Results - Last 24 Hours (Table) 10/02/24 10/02/24 10/03/24 Range/Units 16:51 20:04 06:15 WBC (3.8-10.6) k/uL RBC (4.30-5.90) m/uL Hgb (13.0-17.5) gm/dL Hct (39.0-53.0) % Sodium (137-145) mmol/L Chloride (98-107) mmol/L BUN (9-20) mg/dL Creatinine (0.66-1.25) mg/dL Glucose (74-99) mg/dL POC Glucose (mg/dL) 214 H 196 H 136 H (70-110) mg/dL 10/03/24 10/03/24 10/03/24 Range/Units 07:17 07:17 11:30 WBC 12.0 H (3.8-10.6) k/uL RBC 3.22 L (4.30-5.90) m/uL Hgb 10.4 L (13.0-17.5) gm/dL Hct 30.0 L (39.0-53.0) % Sodium 126 L (137-145) mmol/L Chloride 88 L (98-107) mmol/L BUN 25 H (9-20) mg/dL Creatinine 5.21 H (0.66-1.25) mg/dL Glucose 120 H (74-99) mg/dL POC Glucose (mg/dL) 122 H (70-110) mg/dL
--- NOTE | 2024-10-03 14:18 | P.PN ---
Subjective Progress Note Date: 10/03/24 SURGICAL PROGRESS NOTE CHIEF COMPLAINT: CVA HISTORY OF PRESENT ILLNESS: Patient postop day# 1 status post PEG tube placement. Patient lying in bed comfortably with no complaints. Afebrile. Vital stable WBC is 12 PHYSICAL EXAM: VITAL SIGNS: Reviewed. GENERAL: Well-developed in no acute distress. ABDOMEN: Soft. Nondistended. Nontender. PEG tube site clean dry and intact ASSESSMENT: 1. Severe protein calorie malnutrition 2. CVA 3. Dysphagia and aspiration on MBS PLAN: -Consult dietitian for initiation of tube feeds -Okay to put medications down PEG tube Physician Advertising Project Manager note has been reviewed by physician. Signing provider agrees with the documented findings, assessment, and plan of care. Objective - Vital Signs Vital signs: Vital Signs Temp 98.9 F 10/03/24 11:19 Pulse 76 10/03/24 11:19 Resp 18 10/03/24 11:19 BP 155/84 10/03/24 11:19 Pulse Ox 100 10/03/24 11:19 FiO2 60 09/26/24 16:00 Intake & Output 10/02/24 10/03/24 10/03/24 18:59 06:59 18:59 Intake Total 123.583 20 10 Output Total 200 Balance 123.583 -180 10 Weight 85 kg 85 kg Intake: IV 43 20 10 Invasive Line 7 18 20 10 Intake, IV Titration 80.583 Amount Diltiazem 125 mg In 80.583 Sodium Chloride 0.9% 100 ml @ 15 MG/HR 15 mls/hr IV .Q8H20M [facility] Rx#: [id number] Output: Urine 200 Other: Voiding Method Indwelling Catheter Indwelling Catheter Indwelling Catheter # Bowel Movements 1 - Labs CBC & Chem 7: 10/03/24 07:17 10/03/24 07:17 Labs: Abnormal Lab Results - Last 24 Hours (Table) 10/02/24 10/02/24 10/03/24 Range/Units 16:51 20:04 06:15 WBC (3.8-10.6) k/uL RBC (4.30-5.90) m/uL Hgb (13.0-17.5) gm/dL Hct (39.0-53.0) % Sodium (137-145) mmol/L Chloride (98-107) mmol/L BUN (9-20) mg/dL Creatinine (0.66-1.25) mg/dL Glucose (74-99) mg/dL POC Glucose (mg/dL) 214 H 196 H 136 H (70-110) mg/dL 10/03/24 10/03/24 10/03/24 Range/Units 07:17 07:17 11:30 WBC 12.0 H (3.8-10.6) k/uL RBC 3.22 L (4.30-5.90) m/uL Hgb 10.4 L (13.0-17.5) gm/dL Hct 30.0 L (39.0-53.0) % Sodium 126 L (137-145) mmol/L Chloride 88 L (98-107) mmol/L BUN 25 H (9-20) mg/dL Creatinine 5.21 H (0.66-1.25) mg/dL Glucose 120 H (74-99) mg/dL POC Glucose (mg/dL) 122 H (70-110) mg/dL
--- NOTE | 2024-10-03 15:57 | CT ---
EXAMINATION TYPE: CT brain wo con CT DLP: 1154.6 mGycm, Automated exposure control for dose reduction was used. DATE OF EXAM: 10/03/2024 3:50 PM COMPARISON: CT brain 09/27/2024, 09/26/2024, MRI brain 09/24/2024, CT brain C-spine 09/11/2024 CLINICAL INDICATION:Male, 79 years old with history of increasing lethargy, AMS, ams TECHNIQUE: Brain: Multiple axial CT images of the brain were obtained without IV contrast. . Coronal and sagitta l reformats reviewed. FINDINGS: Brain: Extra-axial spaces: No abnormal extra-axial fluid collections. Ventricular system: Within normal limits Cerebral parenchyma: Age-appropriate cerebral volume loss. Regions of encephalomalacia within the alia ateral high parietal lobes and left parieto-occipital region consistent with remote CVA. Additional l eft temporal lobe middle cranial fossa region of encephalomalacia from prior CVA. Evolving right MCA territory infarct with similar minimal petechial hemorrhage. Decreased surrounding effacement of the peripheral sulci. Nonspecific right basal ganglia calcification redemonstrated. Cerebellum: Unremarkable. Mass effect: No evidence of midline shift. Intracranial vasculature: Atherosclerotic calcifications of the intracranial vessels. Soft tissues: Normal. Calvarium/osseous structures: No depressed skull fracture. Paranasal sinuses and mastoid air cells: Clear Visualized orbits: Bilateral aphakia IMPRESSION: 1. Evolving right MCA territory infarct with trace petechial hemorrhage. No midline shift. No CT tess dence for new infarct. 2. Remote injuries to the bilateral frontal lobes and left temporal lobe with encephalomalacia. [facility], , 10/03/2024 3:55 PM
--- NOTE | 2024-10-03 16:07 | P.PN ---
Subjective Progress Note Date: 10/03/24 This is a 79-year-old male with history of end-stage renal disease, on hemodialysis Thursday and Thursday the patient himself is a very poor historian, most of the information obtained was from his daughter at bedside. The last couple of weeks, patient has been coughing and at times passing out, he had almost a dozen episodes of cough induced syncope. And never smoked, he has no history of COPD, his chest x-ray and CT of the chest done on this admission showed moderate bilateral pleural effusions with associated atelectasis. Chest x-ray showed mild interstitial prominence. Patient had his dialysis today and has CT of the chest done after dialysis clearly showed evidence of moderate-si zed bilateral pleural effusions not clearly appreciated on the chest x-ray. Labs today showed negative screening for influenza A, influenza B, RSV and COVID-19. CBC was noted to be unremarkable. Hemoglobin is a bit low at 10 basic metabolic profile is normal BUN is 43 creatinine 5.31, BNP level is 2840. After reviewing the patient chart, apparently the patient was recently in the hospital from and he was discharged on diagnosed as having tracheobronchitis, pulmonary was not consulted on his last admission. However patient was discharged home on doxycycline at 100 mg p.o. twice daily. That did not seem to make any difference on his cough and did not make any difference on his cough induced syncope. Echocardiogram on his last admission showed no evidence of LV dysfunction, no evidence of significant valvular heart disease and there was no evidence of pulmonary hypertension. His ejection fraction was 55 to 60% The patient is seen today September 23, 2024 in follow-up on the regular medical floor. He is currently sitting up at the bedside having breakfast. Awake and alert in no acute distress. Maintaining good O2 saturations in the 90s on room air. He did receive hemodialysis yesterday with 2 L removed. White count 14.6. Hemoglobin 11.4. Platelets 309. Sodium 135. Potassium 4.4. Bicarb 25. BUN 39. Creatinine 4.2. Glucose 247. Procalcitonin negative at 0.21. He is currently on DuoNeb and elations, Solu-Medrol, antibiotics in the form of ceftr iaxone and azithromycin. The patient is seen today September 26, 2024 in follow-up on the selective care unit. He is currently resting in bed. Maintaining O2 saturations in the 90s on room air. Has been afebrile. Hemodynamically stable. Remains with a left- sided arm and leg drift. Follow-up CT scan of the brain revealed a 0.4 cm petechial hemorrhage within the left parietal infarct. Increasing edema in the right parietal infarct has effacement of the Clint. No midline shift or significant ventricle compression. Old occipital watershed infarcts bilaterally. Neurology is following closely. White count 10.2. Hemoglobin 11.5. Platelets 278. Sodium 136. Potassium 3.9. Bicarb 27. BUN 61. Creatinine 5.22. Glucose 140. He remains on a Cardizem drip at 5 mg/h. Heparin placed on hold. Continued on Keppra. Progress note dated September 27, 2024. 79-year-old male who is seen today in room 370. Currently, the patient is receiving D5W at 50 cc an hour. The patient is currently on room air. He did have hemodialysis today. 2 L of fluid was removed. He is resting comfortably in bed. No acute distress. No respiratory distress. Current labs include a white count 10.6, hemoglobin 10.6, hematocrit 31.1, and a platelet count of 267,000. Sodium 135, potassium 3.6, chlorides 99, CO2 27, anion gap 9, BUN 64, creatinine 5.63. Glucose is 90. Calcium is 8.1. The scan of the brain shows an overall similar examination with evolving right MCA territory infarct and trace petechial hemorrhage. No midline shift. Remote injuries to the bilateral frontal lobes and left temporal lobe with encephalomalacia. Progress note dated September 28, 2024. 79-year-old male seen in room 370. The patient is currently on room air. Saturations are 100%. The patient is receiving D5W at 50 cc an hour. The patient had hemodialysis yesterday. 2 L was removed. Currently, he is resting comfortably in no distress. Family members are in the room with the patient. Current labs include a white count of 10.8, hemoglobin 10.7, hematocrit 31.3, and a normal platelet count of 253,000. Sodium 131, potassium 3.4, chlorides 91, CO2 31, anion gap 9, BUN 35, and creatinine 4.35. Glucose is 170. Calcium is 8.3. Progress note dated September 29, 2024. 79-year-old male seen again in room 370. The patient is currently undergoing hemodialysis, with a goal of removal of 2 L. The patient is on room air. He is on a Cardizem drip at 15 mg an hour. He is getting D5W at 50 cc an hour. Cu rrent labs include a white count 9.6, hemoglobin 10.6, hematocrit 31.6, and a platelet count of 262,000. Sodium 129, potassium 3.5, chloride 94, CO2 26, BUN 43, creatinine 5.34. Glucose 123. Calcium 8.2. Progress note dated September 30, 2024. 79-year-old male seen in room 370. The patient is resting comfortably in bed. He is on room air. Saturations are 100%. The patient is getting D5W at 50 cc an hour. He is also on Cardizem drip at 5 mg an hour. Current labs include a white count 7.6, hemoglobin 10.5, hematocrit 30.9, and a platelet count of 263,000. Sodium 127, potassium 3.5, chlorides 91, CO2 28, BUN 24, creatinine 4.15. Glucose is 144. Calcium is 8.6. Progress note dated October 01, 2024. 79-year-old male seen in room 370. The patient is resting comfortably in bed. He is currently on room air. He is getting D5W at 50 cc an hour. He continues on Cardizem drip at 5 mg an hour. The plan is for hemodialysis today. Current labs include a white count 6.9, hemoglobin 11, hematocrit 32.4, and a platelet count of 2 94,000. Sodium 130, potassium 3.6, chloride 72, CO2 29, BUN 28, creatinine 5.07. Glucose is 158. Calcium 8.8. Doppler of the right upper extremity, reveals no DVT. Chest x-ray from yesterday shows some very mild interstitial edema. Progress note dated October 02, 2024. 79-year-old male seen today in room 370. He is currently on room air. The pa tient is getting D5W at 50 cc an hour. The patient is no longer on Cardizem. The patient is apparently scheduled to have a PEG tube placed by surgery today. Family members are in the room. The patient is in no distress. Current labs include a white count 7.6, hemoglobin 10.6, hematocrit 31.5, and a normal platelet count. Sodium 128, potassium 3.7, chloride 91, CO2 28, BUN 18, creatinine 4.07. Glucose 174. Calcium 8.7. On 10/03/2024, the patient is being seen for a follow-up. Patient is resting comfortably in bed. No significant shortness of breath. Is a bit lethargic. He is post acute/subacute CVA involving the right MCA territory, in addition to new onset atrial fibrillation with a controlled rate. He does have nonobstructive coronary artery disease, has a loop recorder implantation back in 2020 and the patient is incisional disease on hemodialysis 3 times a week and last hemodialysis was on 10/01/2024. Other comorbidities include hypertension, hyperlipidemia, CVA in the past and diabetes mellitus. Noted the patient had developed dysphagia and based on that the patient was given a PEG tube for enteral feeding and nutritional support. Resting comfortably in bed. The white cell count of 12 with a hemoglobin 10.4 and a platelet count of 309. BUN is 25 with a creatinine of 5.20 sodium levels at 126. Blood sugars at 122. The patient remains on aspirin 300 mg rectally. The patient is also on Coreg 25 mg p.o. twice a day, Levemir insulin 20 units nightly and NovoLog/scale coverage. The most recent CAT scan of the brain from this afternoon showed evolving right MCA territory infarct with trace petechial hemorrhage. No midline shift. Of the upper extremity shows no evidence of any DVT. The cardiac rhythm is atrial fibrillation. Objective - Vital Signs Vital signs: Vital Signs Temp 98.9 F 10/03/24 11:19 Pulse 76 10/03/24 11:19 Resp 18 10/03/24 11:19 BP 155/84 10/03/24 11:19 Pulse Ox 100 10/03/24 11:19 FiO2 60 09/26/24 16:00 Intake & Output 10/02/24 10/03/24 10/03/24 18:59 06:59 18:59 Intake Total 123.583 20 10 Output Total 200 Balance 123.583 -180 10 Weight 85 kg 85 kg Intake: IV 43 20 10 Invasive Line 7 18 20 10 Intake, IV Titration 80.583 Amount Diltiazem 125 mg In 80.583 Sodium Chloride 0.9% 100 ml @ 15 MG/HR 15 mls/hr IV .Q8H20M [facility] Rx#: [id number] Output: Urine 200 Other: Voiding Method Indwelling Catheter Indwelling Catheter Indwelling Catheter # Bowel Movements 1 - Exam No acute distress, oriented 3. Lethargic and weak HEENT examination is grossly unremarkable. Mucous membranes are moist. No oral lesions. Neck supple. Full range of motion. No adenopathy thyromegaly or neck vein distention. Cardiovascular examination reveals an irregular rhythm and rate. S1-S2 normal. No S3 or S4. No discernible murmur noted. Lungs reveal bibasilar crackles. No wheezes or rhonchi. Breath sounds are equal bilaterally. The patient is currently on room air. Abdomen soft bowel sounds are heard. No masses or tenderness. Extremities are intact. No cyanosis clubbing or edema. Skin is without rash or lesion. Neurologic examination reveals left-sided weakness. - Labs CBC & Chem 7: 10/03/24 07:17 10/03/24 07:17 Labs: Abnormal Lab Results - Last 24 Hours (Table) 10/02/24 10/02/24 10/03/24 Range/Units 16:51 20:04 06:15 WBC (3.8-10.6) k/uL RBC (4.30-5.90) m/uL Hgb (13.0-17.5) gm/dL Hct (39.0-53.0) % Sodium (137-145) mmol/L Chloride (98-107) mmol/L BUN (9-20) mg/dL Creatinine (0.66-1.25) mg/dL Glucose (74-99) mg/dL POC Glucose (mg/dL) 214 H 196 H 136 H (70-110) mg/dL 10/03/24 10/03/24 10/03/24 Range/Units 07:17 07:17 11:30 WBC 12.0 H (3.8-10.6) k/uL RBC 3.22 L (4.30-5.90) m/uL Hgb 10.4 L (13.0-17.5) gm/dL Hct 30.0 L (39.0-53.0) % Sodium 126 L (137-145) mmol/L Chloride 88 L (98-107) mmol/L BUN 25 H (9-20) mg/dL Creatinine 5.21 H (0.66-1.25) mg/dL Glucose 120 H (74-99) mg/dL POC Glucose (mg/dL) 122 H (70-110) mg/dL Assessment and Plan Plan: Ischemic stroke involving the right MCA territory predominantly on the right frontal lobe and insular cortex. Follow-up CT scan today revealed questionable petechial hemorrhage over the right frontal parietal. Patient remains on aspirin rectally 300 mg daily. Neurologist on the case Atrial fibrillation, with a controlled rate Dysphagia secondary to CVA post PEG tube insertion on 10/02/2024 Bilateral pleural effusions/most likely secondary to chronic renal failure or diastolic congestive heart failure, patient had normal LV function based on his last echocardiogram. Benign essential hypertension. Dyslipidemia. History of CVA. Diabetes with diabetic peripheral neuropathy. History of seizures. End-stage renal disease, on hemodialysis Thursday schedule. Plan: Patient currently on room air oxygen PEG tube was inserted on 10/02/2024 and the patient is to be started on enteral feeding for nutritional support Continue aspirin Initiate enteral feeding Continue Coreg 25 mg twice a day and the patient has a controlled rate Continue Keppra 500 mg IV every 12 hours Continue Lipitor 80 mg daily Levemir insulin 20 units nightly along with a sliding scale insulin coverage Hemodialysis per nephrology, the patient is being dialyzed TTS Will continue to follow
--- NOTE | 2024-10-03 16:20 | P.PN ---
Progress Note - Text Progress Note Date: 10/03/24 Patient is a 79-year-old male with ESRD, presenting for syncope induced by cough. Patient is poor historian. He was recently admitted for similar symptoms on September 12 and subsequently discharged with doxycycline for treatment of tracheobronchitis for mucous plugging. Since this time patient has had persistent symptoms with sputum production. Denying fever, chills, shortness of breath, chest pain, palpitations at this time. Labs completed in emergency room significant for WBC 6.7, hemoglobin 10.0, sodium 132, potassium 5.0, bicarb 20, BUN 43, creatinine 5.31, glucose 260, A1c 7.3, ALP 146, proBNP 2840, viral respiratory panel is negative. EKG done in the ER independently interpreted showed sinus rhythm heart rate of 60, no ST segment elevation or depression seen, no T-wave inversions seen. Chest x-ray done independently interpreted in the ER showed hazy interstitial markings bilaterally 09/23/2024 Patient seen and examined at bedside. No acute events overnight. Will discontinue antibiotics and steroids. Today's labs significant for WBC 14.6, BUN 38, creatinine 4.2, glucose ranging from 416-209, procalcitonin negative, blood cultures pending with no growth thus far. 09/24/2024 Patient seen and examined at bedside. Overnight patient began having strokelike symptoms at around 4 AM as witnessed by in the room with new onset left- sided weakness, left-sided facial droop and slurred speech with difficulty swallowing. Code stroke was called. Initial CT head with no evidence of acute intracranial process, later MRI of brain with subacute/acute CVA involving right MCA predominantly right frontal lobe and insular cortex. Patient given 300 mg of aspirin rectally as could not tolerate oral swallowing. Neurology consulted. Dialysis today. Today's labs WBC 12.0, hemoglobin 11.3, sodium 133, BUN 78, creatinine 5.24, glucose 166. 09/25. Patient seen and examined. Patient is moving his left upper extremity more than yesterday, also lifting his left lower extremity. Family thinks that patient has improved compared to yesterday 09/26/24: Patient evaluated at bedside today. Patient's family mentioned that his strength is better but currently the patient is very tired as he was up all night coughing. Labs show hemoglobin 11.5, sodium 136, BUN 61, creatinine 5.22. Brain CT shows 0.4 cm petechial hemorrhage within the left parietal infarct may be present, increasing edema in the right parietal infarct as effacement of the sulk I with no midline shift or significant ventricle compression, old occipital watershed infarcts bilaterally. 09/27/24: Patient examined today. Dysphagia evaluation by DATA POWER CONSULTANT showed poor toleration of PO trials exhibiting severe coughing with 2 attempts, continue strict NPO. Labs today show hemoglobin 10.6, sodium 135, BUN 64, creatinine 5.63. EEG done yesterday shows abnormal routine EEG, background slowing with history of mild encephalopathy, no focal slowing/epileptiform discharge/seizure. Hemodialysis today. 09/28/24: Patient evaluated at bedside. Patient had hemodialysis yesterday, 2L was removed. Labs today show WBC 10.8, hemoglobin 10.7, sodium 131, potassium 3.4, bicarb 31, BUN 35, creatinine 4.35. Repeat CT Brain showed overall similar examination with evolving right MCA territory infarct and trace petechial hemorrhage, no midline shift, Remote injuries to bilateral frontal lobes and left temporal lobe with encephalomalacia. 09/29/24: Patient seen and examined. Hemodialysis today. Labs today show hemoglobin 10.6, sodium 129, BUN 43, creatinine 5.34. 09/30/24: Patient evaluated today. Vitals show BP is 153/69. Labs today show Hb 10.5, Na 127, BUN 24, creatinine 4.15. EKG done yesterday independently interpreted as Atrial fibrillation with Rapid ventricular response. Hemodialysis yesterday, 2L of fluid was removed. Patient underwent the videofluoroscopic swallow study today. Patient's family was counseled about the importance of PEG tube. 10/01/24: Patient examined at bedside. BP today is 155/72. The family mentioned that the patient's right arm is swollen. Pateint denies any pain on the right arm. Labs today show hemoglobin 11, sodium 130, BUN 28, creatinine 5.07. Chest x-ray shows mild bilateral interstitial edema. PT and OT recommends RAFA placement/24-7 care or rehab to maximize mobility efforts, improve functional status. 10/02. Patient seen and examined. Family at the bedside. Patient scheduled for PEG tube placement today October 03: Spoke to nurse. Resume PEG tube for medications and feeding if okay with surgery. at the bedside. Patient rather sleepy today. Social history: No history of smoking or alcohol. Lives with his and daughter. Does use a walker. Daughter is the POA Physical examination: VITAL SIGNS: 98.9, 72, 16, 1 5584, 100% room air GENERAL: Resting-rather somnolent EYES: Pupils equal. Conjunctiva normal. HEENT: External appearance of nose and ears normal, oral cavity grossly normal. NECK: JVD not raised; masses not palpable. HEART: First and second heart sounds are normal; minimal edema. LUNGS: Respiratory rate normal, decreased breath sounds ABDOMEN: Soft, no tenderness no guarding rigidity, liver spleen not palpable, no masses palpable. PEG tube with dressing PSYCH: Rather somnolent NEUROLOGICAL: Mild left-sided facial droop. Left upper and lower extremity strength 3/5. INVESTIGATIONS, reviewed in the clinical context: October 03: White count 12 hemoglobin 10.4 platelets 379 sodium 126 potassium 3.5 BUN [address] brain [October 03] evolving right MCA territory infarct with trace petechial hemorrhage. Remote injuries to bilateral frontal lobes and left temporal lobe with encephalomalacia Venous Doppler right upper extremity: No DVT Barium swallow: Aspiration thin liquids and suspected with nectar thick liquids. Poor bolus transfer CT brain [September 27]: Evolving right MCA territory infarct. Encephalomalacia within bilateral high parietal lobes and left parieto-occipital region left temporal lobe or from previous infarct EEG suggestive of encephalopathy. No epileptiform activity Brain MRI [September 16] acute/subacute CVA involving the right MCA territory predominantly the right frontal lobe and insular cortex. Chronic changes Assessment/Plan: Patient is a 79-year-old male with ESRD(TTS), presenting for cough induced syncope. He has been admitted for respiratory distress. The patient then had a CODE STROKE and he was found to have an acute CVA due to new onset atrial fibrillation. Brain CT showed petechial hemorrhage. MBS study showed inconsistent swallow and high risk for aspiration, surgery consulted for PEG tube placement. PT and OT recommend rehab upon discharge. 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 # New onset Atrial fibrillation, Rapid ventricular response MRI brain with subacute CVA involving right MCA predominantly right frontal lobe and insular cortex Loop recorder interrogation showed new onset atrial fibrillation Brain CT shows 0.4 cm petechial hemorrhage within the left parietal infarct may be present, increasing edema in right parietal infarct as effacement of the sulci with no midline shift or significant ventricle compression, old occipital watershed infarcts bilaterally EEG done yesterday shows abnormal routine EEG, background slowing with history of mild encephalopathy, no focal slowing/epileptiform discharge/seizure Repeat CT Brain showed overall similar examination with evolving right MCA territory infarct and trace petechial hemorrhage, no midline shift. Remote injuries to bilateral frontal lobes and left temporal lobe with encephalomalacia Bubble study was inconclusive Neurology following, recommending to hold anticoagulation because of large infarct burden, Coreg 25 mg twice daily -Acute dysphagia secondary to stroke Dysphagia evaluation by DATA POWER CONSULTANT showed poor toleration of PO trials exhibiting severe coughing with 2 attempts, continue strict NPO Videofluoroscopic swallow study shows aspiration with thin liquids and suspected with nectar thick liquids, poor bolus transfer PEG tube placed on October 02 Medications feeding to resume when okay with surgery today #. Right upper extremity edema Duplex venous ultrasound negative for DVT # Bilateral pleural effusion secondary to chronic kidney disease and/or diastol ic congestive heart failure. Pulmonary following. 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 Stevens On hemodialysis -Chronic gait dysfunction uses a walker at home -Full code Start PEG tube medications and feeding if okay with surgery. Discussed with the at the bedside.
[2024-10-03 16:51] LABS: Glucose,Whole Blood 104 mg/dL (70-110)
[2024-10-03 20:47] LABS: Glucose,Whole Blood 132 mg/dL (70-110)
[2024-10-04 00:47] LABS: Glucose,Whole Blood 132 mg/dL (70-110)
[2024-10-04 05:50] LABS: Glucose,Whole Blood 157 mg/dL (70-110)
[2024-10-04 07:59] LABS: Basophils % (A) 0 %; Eosinophils # (A) 0.2 k/uL (0-0.7); Eosinophils % (A) 2 %; HCT 29.9 % (39.0-53.0); HGB 10.4 gm/dL (13.0-17.5); Lymphocytes # (A) 1.5 k/uL (1.0-4.8); Lymphocytes % (A) 20 %; MCH 32.5 pg (25.0-35.0); MCHC 34.7 g/dL (31.0-37.0); MCV 93.7 fL (80.0-100.0); Mean Platelet Volume 7.2; Monocytes # (A) 0.5 k/uL (0-1.0); Monocytes % (A) 6 %; Neutrophils # (A) 5.4 k/uL (1.3-7.7); Neutrophils % (A) 70 %; Platelet Count 289 k/uL (150-450); RBC 3.19 m/uL (4.30-5.90); RDW 12.6 % (11.5-15.5); WBC 7.8 k/uL (3.8-10.6)
[2024-10-04 08:30] LABS: African American GFR (CKD) 10 (>60 ml/min/1.73 sqM); Anion Gap 10 mmol/L; Blood Urea Nitrogen 36 mg/dL (9-20); Calcium 8.6 mg/dL (8.4-10.2); Carbon Dioxide 27 mmol/L (22-30); Chloride 89 mmol/L (98-107); Glucose 130 mg/dL (74-99); Non-African American GFR(CKD) 9 (>60 ml/min/1.73 sqM); Potassium 3.7 mmol/L (3.5-5.1); Sodium 126 mmol/L (137-145)
--- NOTE | 2024-10-04 09:37 | P.PN ---
Subjective Progress Note Date: 10/03/24 Patient was last seen by myself on 09/25/2024. Since then patient has been seen by Dr. Jf Hall. Please refer to his notes for details. Apparently patient has been improving, mentation was improving in the left side he was moving better. Family mentions that he was able to move his arms and legs and was able to turn around. However today he has been more lethargic. This prompted a repeat CT head performed today. Patient's family members were present. They said that he has not slept since he came in the hospital. He received Ativan 0.5 mg at 9:16 PM last night and he has been sleeping since. She is not holding arms, not waking up. His last hemodialysis was on Thursday. He is due for another 1 tomorrow on Thursday. He gets it every Thursday, and Saturdays. Objective - Vital Signs Vital signs: Vital Signs Temp 98.9 F 10/03/24 11:19 Pulse 77 10/03/24 15:32 Resp 16 10/03/24 15:32 BP 155/84 10/03/24 11:19 Pulse Ox 100 10/03/24 11:19 FiO2 60 09/26/24 16:00 Intake & Output 10/02/24 10/03/24 10/03/24 18:59 06:59 18:59 Intake Total 123.583 20 30 Output Total 200 Balance 123.583 -180 30 Weight 85 kg 85 kg Intake: IV 43 20 10 Invasive Line 7 18 20 10 Intake, IV Titration 80.583 Amount Diltiazem 125 mg In 80.583 Sodium Chloride 0.9% 100 ml @ 15 MG/HR 15 mls/hr IV .[id number] [facility] Rx#: [id number] Tube Feeding 20 Output: Urine 200 Other: Voiding Method Indwelling Catheter Indwelling Catheter Indwelling Catheter # Bowel Movements 1 - Exam 10/04/2024: Patient very somnolent. Examination deferred. 09/25/2024: Patient is very alert and awake, initiating conversation. No aphasia. Per family, his speech has further improved. Patient continues to have left facial weakness, central type. His visual calzada are difficult to assess. Patient states his vision is "same", probable at baseline. On muscle strength testing, the strength is normal in the right arm and right leg. On the left side, patient able to hold the left arm with mild drift. Likewise patient able to lift his left leg up with some drift with decreased endurance. Patient was able to give some resistance in the left arm and left leg against gravity. Sensations difficult to assess. - Labs CBC & Chem 7: 10/04/24 07:14 10/04/24 07:14 Labs: Abnormal Lab Results - Last 24 Hours (Table) 10/02/24 10/02/24 10/03/24 Range/Units 16:51 20:04 06:15 WBC (3.8-10.6) k/uL RBC (4.30-5.90) m/uL Hgb (13.0-17.5) gm/dL Hct (39.0-53.0) % Sodium (137-145) mmol/L Chloride (98-107) mmol/L BUN (9-20) mg/dL Creatinine (0.66-1.25) mg/dL Glucose (74-99) mg/dL POC Glucose (mg/dL) 214 H 196 H 136 H (70-110) mg/dL 10/03/24 10/03/24 10/03/24 Range/Units 07:17 07:17 11:30 WBC 12.0 H (3.8-10.6) k/uL RBC 3.22 L (4.30-5.90) m/uL Hgb 10.4 L (13.0-17.5) gm/dL Hct 30.0 L (39.0-53.0) % Sodium 126 L (137-145) mmol/L Chloride 88 L (98-107) mmol/L BUN 25 H (9-20) mg/dL Creatinine 5.21 H (0.66-1.25) mg/dL Glucose 120 H (74-99) mg/dL POC Glucose (mg/dL) 122 H (70-110) mg/dL Assessment and Plan Assessment: * Acute ischemic stroke involving the right MCA territory predominantly in the right frontal lobe and insular cortex. Event appears embolic in nature. * Questionable small petechial hemorrhage over the right fronto/parietal on the repeat CT of the head today. She reported on the left but reading radiologist placed the area on the right is seems more right frontal parietal and there is truly hemorrhage versus surround normal hernandez/white matter--repeat CT head is stable. * Dysphagia due to above * New diagnosis of paroxysmal atrial fibrillation. 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 * Cognitive impairment * Diabetes * ESRD on hemodialysis * Hypertension * Hyperlipidemia Plan: * Repeat CT head performed today revealed evolving right MCA territory infarct with trace petechial hemorrhage. No midline shift, no CT evidence of new infarct. Remote injuries to the bilateral frontal lobes and left temporal lobe with encephalomalacia. I personally reviewed CT head, agree with the findings. * MRI of the brain without contrast 09/24/2024 revealed acute/subacute CVA involving the right MCA territory, predominantly in the right frontal lobe and insular cortex. Remote injuries of the left parietal lobe and left inferior temporal lobe with encephalomalacia. Nonspecific white matter changes, likely secondary to small vessel ischemic disease. I personally reviewed MRI agree with the findings. Also evidence of old encephalomalacia involving right frontal and parietal region. Also evidence of some hemosiderin deposition in the left parietal region. Discussed MRI findings with stroke neurologist Dr. Centeno * 2-D echo with bubble study to rule out PFO. Patient may need KARISHMA. * Cardiology input appreciated. Patient had loop recorder interrogation and patient was found to have paroxysmal atrial fibrillation. * Hold off anticoagulation for now because of moderate-sized stroke, and petechial hemorrhage. Repeat CT head on Thursday. * CTA head and neck showed: No evidence of large vessel occlusion. Negative CTA of the neck. * Fasting a.m. lipid panel cholesterol 106, LDL 25, HDL 65 and triglycerides 75. Continue Lipitor 80 mg. * Hemoglobin A1c 7.3 * Optimize control of blood pressure. Keep it less than 160 systolic. * Continue aspirin 300 mg rectally. * Continue Keppra 500 mg twice daily Neuro checks every 2 hours. * Telemetry monitoring rule out any arrhythmia * PT, OT, speech therapy * DVT prophylaxis: Heparin 5000 units subcu every 12 hours
--- NOTE | 2024-10-04 11:18 | P.PN ---
Subjective Progress Note Date: 10/04/24 SURGICAL PROGRESS NOTE CHIEF COMPLAINT: CVA HISTORY OF PRESENT ILLNESS: Patient postop day# 2 status post PEG tube placement. Patient receiving hemodialysis. He is tolerating tube feeds. Tube feeds are currently at 40 mL/h. Afebrile. WBC 7.8 PHYSICAL EXAM: VITAL SIGNS: Reviewed. GENERAL: Well-developed in no acute distress. ABDOMEN: Soft. Nondistended. Nontender. PEG tube site clean dry and intact ASSESSMENT: 1. Severe protein calorie malnutrition 2. CVA 3. Dysphagia and aspiration on MBS PLAN: -Titrate tube feeds per dietitian Physician Bag Machine Operator Helper note has been reviewed by physician. Signing provider agrees with the documented findings, assessment, and plan of care. Objective - Vital Signs Vital signs: Vital Signs Temp 98 F 10/04/24 09:00 Pulse 77 10/04/24 10:27 Resp 16 10/04/24 10:27 BP 130/55 10/04/24 09:00 Pulse Ox 98 10/04/24 09:00 FiO2 60 09/26/24 16:00 Intake & Output 10/03/24 10/04/24 10/04/24 18:59 06:59 18:59 Intake Total 30 90 Output Total 150 Balance -120 90 Weight 85 kg 94 kg Intake: IV 10 10 Invasive Line 7 10 Invasive Line 8 10 Tube Feeding 20 80 Output: Urine 150 Other: Voiding Method Indwelling Catheter Indwelling Catheter Indwelling Catheter - Labs CBC & Chem 7: 10/04/24 07:14 10/04/24 07:14 Labs: Abnormal Lab Results - Last 24 Hours (Table) 10/03/24 10/03/24 10/04/24 Range/Units 11:30 20:42 00:46 RBC (4.30-5.90) m/uL Hgb (13.0-17.5) gm/dL Hct (39.0-53.0) % Sodium (137-145) mmol/L Chloride (98-107) mmol/L BUN (9-20) mg/dL Creatinine (0.66-1.25) mg/dL Glucose (74-99) mg/dL POC Glucose (mg/dL) 122 H 132 H 132 H (70-110) mg/dL 10/04/24 10/04/24 10/04/24 Range/Units 05:49 07:14 07:14 RBC 3.19 L (4.30-5.90) m/uL Hgb 10.4 L (13.0-17.5) gm/dL Hct 29.9 L (39.0-53.0) % Sodium 126 L (137-145) mmol/L Chloride 89 L (98-107) mmol/L BUN 36 H (9-20) mg/dL Creatinine 5.82 H (0.66-1.25) mg/dL Glucose 130 H (74-99) mg/dL POC Glucose (mg/dL) 157 H (70-110) mg/dL
[2024-10-04 12:01] LABS: Glucose,Whole Blood 111 mg/dL (70-110)
--- NOTE | 2024-10-04 13:26 | P.PN ---
Subjective HISTORY OF PRESENT ILLNESS: This is a 79-year-old male with a past medical history significant for coronary artery disease, hypertension, hyperlipidemia, CVA, diabetes, and chronic kidney disease. Patient follows in the office with Dr. Fischer. We have been asked to see the patient in consultation for CVA and loop recorder interrogation. Patient examined at the bedside. Patient was hospitalized earlier this month for cough induced syncope. Patient was discharged home and presented back to the hospital with similar symptoms. While in the hospital he developed left-sided weakness and was found to be positive for CVA. Patient currently denies chest pain or pressure. Denies shortness of breath. The patient was previously prescribed Eliquis for unknown reason however he was not currently taking this. Family has denied any history of atrial fibrillation or PE/DVT. Patient is currently maintaining sinus mechanism. Loop recorder interrogation performed revealing episodes of atrial fibrillation. DIAGNOSTICS: - EKG reveals sinus mechanism with no signs of acute ischemia - Chest xray hazy interstitial markings seen bilaterally may relate to infectious/inflammatory process. - Laboratory data: WBC 10.2. Hemoglobin 12.0. Platelet count 298. Sodium 134. Potassium 4.1. BUN 49. Creatinine 4.27. - Current home cardiac medications include aspirin 162.5 mg daily, Lipitor 20 mg at night, Imdur 120 mg daily, midodrine 10 mg 3 times a day as needed, Procardia 60 mg twice a day, Demadex 20 mg daily, carvedilol 12.5 mg twice a day - Most recent echocardiogram obtained in August 2024 revealed ejection fraction 55 to 60% with no significant valvular disease - Cardiac catheterization history: 2008 revealing approximately 40%, mid LAD 50%, diagonal 50%, circumflex 50%, and nondominant RCA with no significant stenosis -Patient underwent Lexiscan stress test in March 2024 which was negative for ischemia 09/26/2024 Was seen and examined resting comfortably in bed. [place] any chest discomfort or shortness of breath. Continues to have issues with speech and swallowing. Facial droop noted. Awaiting swallow eval. Anticoagulation has not been initiated at this point. CT scan done this morning showed a 0.4 cm petechial hemorrhage within the left parietal infarct may be present, increasing edema in the right parietal infarct as effacement of the sulci, no midline shift or significant ventricle compression, old occipital watershed infarcts bilaterally. We are awaiting input from neurology in regards to anticoagulation. 09/27/2024 Patient was seen and examined resting comfortably in bed. He was seen by neurology yesterday and anticoagulation remains on hold due to moderate size stroke as well as questionable petechial hemorrhage. Plan for repeat CT of the head. 09/28/2024 Patient mated to atrial fibrillation RVR and was started on Cardizem drip. Patient's blood pressure was noticed to be fluctuating today. 09/29/24 Patient seen and examined. Repeat blood work reveals hemoglobin 10.6, BUN 43 creatinine 5.34, potassium 3.5 and sodium 129. Blood pressure 136/63, heart rate in the 60s, pulse ox 97 percent on room air. Telemetry remains atrial fibrillation running in the 70s. Patient is currently on IV Cardizem at 15 mg/h. Patient is quite sleepy today. We will plan to start patient on full anticoagulation once cleared by neurology. No plan for KARISHMA. 09/30/24 P unfortunately, patient failed swallow evaluation and family is considering tube feeding. atient seen and examined. He is scheduled for modified barium swallow today. Patient has been maintained on Cardizem drip as he is not taking any oral medications. 10/01/2024 Patient examined this morning at the bedside. Patient's family is present. Patient is sitting comfortably in bed. Telemetry reveals sinus mechanism. He has been evaluated by general surgery and is scheduled for EGD with PEG tube placement on 10/02/2023 10/02/2024 Patient examined this morning the bedside. His family is present. Patient is more awake today. No complaints of chest pain or shortness of breath. He complains of a headache this morning. Patient is scheduled for EGD with PEG tube placement today by general surgery. 10/03/2024 Patient examined this morning. Patient is lethargic at the time of examination. He underwent EGD with PEG tube placement yesterday. Vital signs are stable. Telemetry reveals sinus mechanism. 10/04/2024 Patient examined this morning at the bedside. Patient remains lethargic although somewhat improved from yesterday. No complaints of chest pain or shortness of breath. Telemetry reveals sinus mechanism with a heart rate in the 50s. CT of the brain reveals evolving right MCA territory infarct with trace petechial hemorrhage. No midline shift. No evidence for new infarct. PHYSICAL EXAM: VITAL SIGNS: Reviewed. GENERAL: Well-developed in no acute distress. NECK: Supple. No JVD or thyromegaly LUNGS: Respirations even and unlabored. Lungs essentially clear to auscultation bilaterally. HEART: Regular rate and rhythm. S1 and S2 heard. EXTREMITIES: Left-sided weakness. Normal range of motion. No clubbing or cya nosis. Peripheral pulses intact. No lower extremity edema ASSESSMENT: Acute/subacute CVA involving right MCA territory New onset atrial fibrillation, currently rate controlled Recent diagnosis and hospitalization for tussive syncope Nonobstructive CAD, per cath 2008 History of loop recorder implantation, [employer], 2020 Chronic kidney disease on hemodialysis Hypertension Hyperlipidemia History of CVA Diabetes End-stage renal disease on hemodialysis PLAN: Continue telemetry monitoring Continue current cardiac medications Case discussed yesterday with Dr. Bustillo who would like to wait on beginning Eliquis. Will start with cleared with neurology. Further recommendations pending patient course Nurse practitioner note has been reviewed by physician. Signing provider agrees with the documented findings, assessment, and plan of care documented by NEONATAL INTENSIVE CARE NURSE as a scribe. Objective - Vital Signs Vital signs: Vital Signs Temp 98.6 F 10/04/24 04:00 Pulse 64 10/04/24 04:00 Resp 16 10/04/24 04:00 BP 151/73 10/04/24 04:00 Pulse Ox 99 10/04/24 04:00 FiO2 60 09/26/24 16:00 Intake & Output 10/03/24 10/04/24 10/04/24 18:59 06:59 18:59 Intake Total 30 Output Total 150 Balance -120 Weight 85 kg 94 kg Intake: IV 10 Invasive Line 7 10 Tube Feeding 20 Output: Urine 150 Other: Voiding Method Indwelling Catheter Indwelling Catheter - Labs CBC & Chem 7: 10/04/24 07:14 10/04/24 07:14 Labs: Abnormal Lab Results - Last 24 Hours (Table) 10/03/24 10/03/24 10/04/24 Range/Units 11:30 20:42 00:46 RBC (4.30-5.90) m/uL Hgb (13.0-17.5) gm/dL Hct (39.0-53.0) % Sodium (137-145) mmol/L Chloride (98-107) mmol/L BUN (9-20) mg/dL Creatinine (0.66-1.25) mg/dL Glucose (74-99) mg/dL POC Glucose (mg/dL) 122 H 132 H 132 H (70-110) mg/dL 10/04/24 10/04/24 10/04/24 Range/Units 05:49 07:14 07:14 RBC 3.19 L (4.30-5.90) m/uL Hgb 10.4 L (13.0-17.5) gm/dL Hct 29.9 L (39.0-53.0) % Sodium 126 L (137-145) mmol/L Chloride 89 L (98-107) mmol/L BUN 36 H (9-20) mg/dL Creatinine 5.82 H (0.66-1.25) mg/dL Glucose 130 H (74-99) mg/dL POC Glucose (mg/dL) 157 H (70-110) mg/dL
--- NOTE | 2024-10-04 14:33 | P.PN ---
Progress Note - Text Progress Note Date: 10/04/24 Patient is a 79-year-old male with ESRD, presenting for syncope induced by cough. Patient is poor historian. He was recently admitted for similar symptoms on September 12 and subsequently discharged with doxycycline for treatment of tracheobronchitis for mucous plugging. Since this time patient has had persistent symptoms with sputum production. Denying fever, chills, shortness of breath, chest pain, palpitations at this time. Labs completed in emergency room significant for WBC 6.7, hemoglobin 10.0, sodium 132, potassium 5.0, bicarb 20, BUN 43, creatinine 5.31, glucose 260, A1c 7.3, ALP 146, proBNP 2840, viral respiratory panel is negative. EKG done in the ER independently interpreted showed sinus rhythm heart rate of 60, no ST segment elevation or depression seen, no T-wave inversions seen. Chest x-ray done independently interpreted in the ER showed hazy interstitial markings bilaterally 09/23/2024 Patient seen and examined at bedside. No acute events overnight. Will discontinue antibiotics and steroids. Today's labs significant for WBC 14.6, BUN 38, creatinine 4.2, glucose ranging from 416-209, procalcitonin negative, blood cultures pending with no growth thus far. 09/24/2024 Patient seen and examined at bedside. Overnight patient began having strokelike symptoms at around 4 AM as witnessed by in the room with new onset left- sided weakness, left-sided facial droop and slurred speech with difficulty swallowing. Code stroke was called. Initial CT head with no evidence of acute intracranial process, later MRI of brain with subacute/acute CVA involving right MCA predominantly right frontal lobe and insular cortex. Patient given 300 mg of aspirin rectally as could not tolerate oral swallowing. Neurology consulted. Dialysis today. Today's labs WBC 12.0, hemoglobin 11.3, sodium 133, BUN 78, creatinine 5.24, glucose 166. 09/25. Patient seen and examined. Patient is moving his left upper extremity more than yesterday, also lifting his left lower extremity. Family thinks that patient has improved compared to yesterday 09/26/24: Patient evaluated at bedside today. Patient's family mentioned that his strength is better but currently the patient is very tired as he was up all night coughing. Labs show hemoglobin 11.5, sodium 136, BUN 61, creatinine 5.22. Brain CT shows 0.4 cm petechial hemorrhage within the left parietal infarct may be present, increasing edema in the right parietal infarct as effacement of the sulk I with no midline shift or significant ventricle compression, old occipital watershed infarcts bilaterally. 09/27/24: Patient examined today. Dysphagia evaluation by SHEETFED PRESS OPERATOR showed poor toleration of PO trials exhibiting severe coughing with 2 attempts, continue strict NPO. Labs today show hemoglobin 10.6, sodium 135, BUN 64, creatinine 5.63. EEG done yesterday shows abnormal routine EEG, background slowing with history of mild encephalopathy, no focal slowing/epileptiform discharge/seizure. Hemodialysis today. 09/28/24: Patient evaluated at bedside. Patient had hemodialysis yesterday, 2L was removed. Labs today show WBC 10.8, hemoglobin 10.7, sodium 131, potassium 3.4, bicarb 31, BUN 35, creatinine 4.35. Repeat CT Brain showed overall similar examination with evolving right MCA territory infarct and trace petechial hemorrhage, no midline shift, Remote injuries to bilateral frontal lobes and left temporal lobe with encephalomalacia. 09/29/24: Patient seen and examined. Hemodialysis today. Labs today show hemoglobin 10.6, sodium 129, BUN 43, creatinine 5.34. 09/30/24: Patient evaluated today. Vitals show BP is 153/69. Labs today show Hb 10.5, Na 127, BUN 24, creatinine 4.15. EKG done yesterday independently interpreted as Atrial fibrillation with Rapid ventricular response. Hemodialysis yesterday, 2L of fluid was removed. Patient underwent the videofluoroscopic swallow study today. Patient's family was counseled about the importance of PEG tube. 10/01/24: Patient examined at bedside. BP today is 155/72. The family mentioned that the patient's right arm is swollen. Pateint denies any pain on the right arm. Labs today show hemoglobin 11, sodium 130, BUN 28, creatinine 5.07. Chest x-ray shows mild bilateral interstitial edema. PT and OT recommends RAFA placement/24-7 care or rehab to maximize mobility efforts, improve functional status. 10/02. Patient seen and examined. Family at the bedside. Patient scheduled for PEG tube placement today October 03: Spoke to nurse. Resume PEG tube for medications and feeding if okay with surgery. at the bedside. Patient rather sleepy today. October 04: Patient more awake today. Tired. at the bedside. Helping with Icelandic interpretation. Per neurology repeat CT scan tomorrow. Then consider initiating blood thinners. Patient getting tube feeding at 40 cc an hour. NPO. Active Medications Acetaminophen (Acetaminophen Tab 325 Mg Tab) 650 mg PO Q4HR PRN PRN Reason: Mild Pain or Fever > 100.5 Last Admin: 09/23/24 17:51 Dose: 650 mg Acetaminophen (Acetaminophen Suppository 650 Mg Supp) 650 mg RECTAL Q8HR PRN PRN Reason: Fever and/ or Pain Last Admin: 09/30/24 05:48 Dose: 650 mg Albuterol/Ipratropium (Ipratropium-Albuterol 3 Ml Neb) 3 ml INHALATION RT-Q2H PRN PRN Reason: Shortness Of Breath Or Wheezing Albuterol/Ipratropium (Ipratropium-Albuterol 3 Ml Neb) 3 ml INHALATION RT-QID [facility] Last Admin: 10/04/24 13:43 Dose: 3 ml Aspirin (Aspirin 300 Mg Supp) 300 mg RECTAL DAILY [facility] Last Admin: 10/04/24 14:22 Dose: 300 mg Atorvastatin Calcium (Atorvastatin 80 Mg Tab) 80 mg PO HS [facility] Last Admin: 10/03/24 21:42 Dose: 80 mg Carvedilol (Carvedilol 12.5 Mg Tab) 25 mg PO BID-W/MEALS [facility] Last Admin: 10/04/24 06:06 Dose: 25 mg Dextrose/Water (Dextrose 50% Syringe 50 Ml) 25 ml IVP PER PROTOCOL PRN; Protocol PRN Reason: Hypoglycemia Last Admin: 09/24/24 12:29 Dose: 25 ml Dextrose/Water (Dextrose 50% Syringe 50 Ml) 50 ml IVP PER PROTOCOL PRN; Protocol PRN Reason: Hypoglycemia Last Admin: 09/24/24 05:38 Dose: 50 ml Duloxetine HCl (Duloxetine Hcl 30 Mg Capsule.Dr) 30 mg PO [facility] Last Admin: 10/03/24 21:43 Dose: 30 mg Heparin Sodium (Porcine) (Heparin Sodium,Porcine 5,000 Unit/Ml 1 Ml Vial) 5,000 unit SQ Q12HR [facility] Last Admin: 10/04/24 09:08 Dose: 5,000 unit Insulin Aspart (Insulin Aspart (Novolog) 100 Unit/Ml Vial) 0 unit SQ [facility]; Protocol Last Admin: 10/04/24 12:37 Dose: Not Given Insulin Detemir (Insulin Detemir (Levemir) 100 Unit/Ml Syr) 20 unit SQ HS [facility] Last Admin: 10/03/24 22:08 Dose: 20 unit Levetiracetam (Levetiracetam Iv 500 Mg/5 Ml Vial) 500 mg IVP Q12HR [facility] Last Admin: 10/04/24 09:08 Dose: 500 mg Multivit/Ca Carb/B Cmplx/FA/Prenat (Folic Acid-Vit B Complex-Vit C 1 Cap) 1 each PO TUTHSA@0900,2100 [facility] Last Admin: 10/04/24 09:09 Dose: Not Given Naloxone HCl (Naloxone 0.4 Mg/Ml 1 Ml Vial) 0.2 mg IVP Q2M PRN PRN Reason: Opioid Reversal Ondansetron HCl (Ondansetron 4 Mg/2 Ml Vial) 4 mg IVP Q6HR PRN PRN Reason: Nausea And Vomiting Last Admin: 09/24/24 00:40 Dose: 4 mg Social history: No history of smoking or alcohol. Lives with his and daughter. Does use a walker. Daughter is the POA Physical examination: VITAL SIGNS: 98.5, 57, 18, 131 x 42, 98% room air GENERAL: Resting-tired EYES: Pupils equal. Conjunctiva normal. HEENT: External appearance of nose and ears normal, oral cavity grossly normal. NECK: JVD not raised; masses not palpable. HEART: First and second heart sounds are normal; minimal edema. LUNGS: Respiratory rate normal, decreased breath sounds ABDOMEN: Soft, no tenderness no guarding rigidity, liver spleen not palpable, no masses palpable. PEG tube with feeding PSYCH: Will answer questions sometimes NEUROLOGICAL: Mild left-sided facial droop. Patient is able to move all his limbs. Somewhat difficult to follow commands INVESTIGATIONS, reviewed in the clinical context: October 04: White count 7.8 hemoglobin 10.4 sodium 126 potassium 3.7 BUN 36 creatinine 5.82 October 03: White count 12 hemoglobin 10.4 platelets 379 sodium 126 potassium 3.5 BUN [address] brain [October 03] evolving right MCA territory infarct with trace petechial hemorrhage. Remote injuries to bilateral frontal lobes and left temporal lobe with encephalomalacia Venous Doppler right upper extremity: No DVT Barium swallow: Aspiration thin liquids and suspected with nectar thick liquids. Poor bolus transfer CT brain [September 27]: Evolving right MCA territory infarct. Encephalomalacia within bilateral high parietal lobes and left parieto-occipital region left temporal lobe or from previous infarct EEG suggestive of encephalopathy. No epileptiform activity Brain MRI [September 16] acute/subacute CVA involving the right MCA territory predominantly the right frontal lobe and insular cortex. Chronic changes Assessment/Plan: Patient is a 79-year-old male with ESRD(TTS), presenting for cough induced syncope. He has been admitted for respiratory distress. The patient then had a CODE STROKE and he was found to have an acute CVA due to new onset atrial fibrillation. Brain CT showed petechial hemorrhage. MBS study showed inconsistent swallow and high risk for aspiration, surgery consulted for PEG tube placement. PT and OT recommend rehab upon discharge. 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 Being followed by neurology. Repeat CT scan did show some evolution. With petechial hemorrhage. Pending repeat CT scan tomorrow. # Paroxysmal, new onset Atrial fibrillation, Rapid ventricular response, now in sinus rhythm MRI brain with subacute CVA involving right MCA predominantly right frontal lobe and insular cortex Loop recorder interrogation showed new onset atrial fibrillation Brain CT shows 0.4 cm petechial hemorrhage within the left parietal infarct may be present, increasing edema in right parietal infarct as effacement of the sulci with no midline shift or significant ventricle compression, old occipital watershed infarcts bilaterally EEG-, background slowing with history of mild encephalopathy, no focal slowing/epileptiform discharge/seizure Repeat CT Brain showed overall similar examination with evolving right MCA territory infarct and trace petechial hemorrhage, no midline shift. Remote injuries to bilateral frontal lobes and left temporal lobe with encephalomalacia Bubble study was inconclusive Neurology following, recommending to hold anticoagulation because of large infarct burden, Coreg 25 mg twice daily -Acute dysphagia secondary to stroke: Strict n.p.o. Dysphagia evaluation by SHEETFED PRESS OPERATOR showed poor toleration of PO trials exhibiting severe coughing with 2 attempts, continue strict NPO Videofluoroscopic swallow study shows aspiration with thin liquids and suspected with nectar thick liquids, poor bolus transfer PEG tube placed on October 02-tube feeding started #. Right upper extremity edema Duplex venous ultrasound negative for DVT # Bilateral pleural effusion secondary to chronic kidney disease and/or diastolic congestive heart failure. Pulmonary following. 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 Stevens On hemodialysis -Chronic gait dysfunction uses a walker at home -Full code Discussed with . Plans to take the patient home. Repeat CT scan tomorrow. Then anticoagulation per neurology.
[2024-10-04 18:29] LABS: Glucose,Whole Blood 208 mg/dL (70-110)
--- NOTE | 2024-10-04 20:06 | P.PN ---
Subjective Patient is seen for follow-up for end-stage renal disease. Patient is sleeping, he is arousable. Family present at bedside. Seen on hemodialysis today. Patient was tolerating treatment well and the venous system clotted about 30 minutes earlier. Blood was partially returned. Objective - Vital Signs Vital signs: Vital Signs Temp 98.1 F 10/04/24 16:15 Pulse 65 10/04/24 17:08 Resp 16 10/04/24 17:08 BP 113/64 10/04/24 16:15 Pulse Ox 98 10/04/24 16:15 FiO2 60 09/26/24 16:00 Intake & Output 10/04/24 10/04/24 10/05/24 06:59 18:59 06:59 Intake Total 390 Output Total 3964 Balance -3574 Weight 94 kg Intake: IV 10 Invasive Line 8 10 Tube Feeding 80 Hemodialysis 300 Output: Hemodialysis 2132 Hemodialysis Net Amount 1832 Other: Voiding Method Indwelling Catheter Indwelling Catheter - Exam patient is awake, comfortable, no acute distress. Examination of the heart S1 and S2 Examination of the lungs bilateral breath sounds are heard decreased breath sounds at the bases Abdomen is soft nontender Examination of lower extremity shows no significant edema - Labs CBC & Chem 7: 10/04/24 07:14 10/04/24 07:14 Labs: Abnormal Lab Results - Last 24 Hours (Table) 10/03/24 10/04/24 10/04/24 Range/Units 20:42 00:46 05:49 RBC (4.30-5.90) m/uL Hgb (13.0-17.5) gm/dL Hct (39.0-53.0) % Sodium (137-145) mmol/L Chloride (98-107) mmol/L BUN (9-20) mg/dL Creatinine (0.66-1.25) mg/dL Glucose (74-99) mg/dL POC Glucose (mg/dL) 132 H 132 H 157 H (70-110) mg/dL 10/04/24 10/04/24 10/04/24 Range/Units 07:14 07:14 11:58 RBC 3.19 L (4.30-5.90) m/uL Hgb 10.4 L (13.0-17.5) gm/dL Hct 29.9 L (39.0-53.0) % Sodium 126 L (137-145) mmol/L Chloride 89 L (98-107) mmol/L BUN 36 H (9-20) mg/dL Creatinine 5.82 H (0.66-1.25) mg/dL Glucose 130 H (74-99) mg/dL POC Glucose (mg/dL) 111 H (70-110) mg/dL 10/04/24 Range/Units 18:27 RBC (4.30-5.90) m/uL Hgb (13.0-17.5) gm/dL Hct (39.0-53.0) % Sodium (137-145) mmol/L Chloride (98-107) mmol/L BUN (9-20) mg/dL Creatinine (0.66-1.25) mg/dL Glucose (74-99) mg/dL POC Glucose (mg/dL) 208 H (70-110) mg/dL Assessment and Plan Assessment: 1. End-stage renal disease maintained on hemodialysis on Thursday schedule. 2. Pneumonia maintained on antibiotics. 3. Diabetes mellitus. 4. Hypertension with chronic kidney disease. Exacerbated by steroids. 5. Acute/Subacute CVA-status post PEG tube placement 6. A-fib with RVR status post Cardizem drip Plan: Hemodialysis on TTS schedule Continue with tube feeding
[2024-10-04 21:43] LABS: Glucose,Whole Blood 178 mg/dL (70-110)
--- NOTE | 2024-10-04 21:49 | P.PN ---
Subjective Progress Note Date: 10/04/24 This is a 79-year-old male with history of end-stage renal disease, on hemodialysis Thursday and Thursday the patient himself is a very poor historian, most of the information obtained was from his daughter at bedside. The last couple of weeks, patient has been coughing and at times passing out, he had almost a dozen episodes of cough induced syncope. And never smoked, he has no history of COPD, his chest x-ray and CT of the chest done on this admission showed moderate bilateral pleural effusions with associated atelectasis. Chest x-ray showed mild interstitial prominence. Patient had his dialysis today and has CT of the chest done after dialysis clearly showed evidence of moderate-si zed bilateral pleural effusions not clearly appreciated on the chest x-ray. Labs today showed negative screening for influenza A, influenza B, RSV and COVID-19. CBC was noted to be unremarkable. Hemoglobin is a bit low at 10 basic metabolic profile is normal BUN is 43 creatinine 5.31, BNP level is 2840. After reviewing the patient chart, apparently the patient was recently in the hospital from and he was discharged on diagnosed as having tracheobronchitis, pulmonary was not consulted on his last admission. However patient was discharged home on doxycycline at 100 mg p.o. twice daily. That did not seem to make any difference on his cough and did not make any difference on his cough induced syncope. Echocardiogram on his last admission showed no evidence of LV dysfunction, no evidence of significant valvular heart disease and there was no evidence of pulmonary hypertension. His ejection fraction was 55 to 60% The patient is seen today September 23, 2024 in follow-up on the regular medical floor. He is currently sitting up at the bedside having breakfast. Awake and alert in no acute distress. Maintaining good O2 saturations in the 90s on room air. He did receive hemodialysis yesterday with 2 L removed. White count 14.6. Hemoglobin 11.4. Platelets 309. Sodium 135. Potassium 4.4. Bicarb 25. BUN 39. Creatinine 4.2. Glucose 247. Procalcitonin negative at 0.21. He is currently on DuoNeb and elations, Solu-Medrol, antibiotics in the form of ceftr iaxone and azithromycin. The patient is seen today September 26, 2024 in follow-up on the selective care unit. He is currently resting in bed. Maintaining O2 saturations in the 90s on room air. Has been afebrile. Hemodynamically stable. Remains with a left- sided arm and leg drift. Follow-up CT scan of the brain revealed a 0.4 cm petechial hemorrhage within the left parietal infarct. Increasing edema in the right parietal infarct has effacement of the Clint. No midline shift or significant ventricle compression. Old occipital watershed infarcts bilaterally. Neurology is following closely. White count 10.2. Hemoglobin 11.5. Platelets 278. Sodium 136. Potassium 3.9. Bicarb 27. BUN 61. Creatinine 5.22. Glucose 140. He remains on a Cardizem drip at 5 mg/h. Heparin placed on hold. Continued on Keppra. Progress note dated September 27, 2024. 79-year-old male who is seen today in room 370. Currently, the patient is receiving D5W at 50 cc an hour. The patient is currently on room air. He did have hemodialysis today. 2 L of fluid was removed. He is resting comfortably in bed. No acute distress. No respiratory distress. Current labs include a white count 10.6, hemoglobin 10.6, hematocrit 31.1, and a platelet count of 267,000. Sodium 135, potassium 3.6, chlorides 99, CO2 27, anion gap 9, BUN 64, creatinine 5.63. Glucose is 90. Calcium is 8.1. The scan of the brain shows an overall similar examination with evolving right MCA territory infarct and trace petechial hemorrhage. No midline shift. Remote injuries to the bilateral frontal lobes and left temporal lobe with encephalomalacia. Progress note dated September 28, 2024. 79-year-old male seen in room 370. The patient is currently on room air. Saturations are 100%. The patient is receiving D5W at 50 cc an hour. The patient had hemodialysis yesterday. 2 L was removed. Currently, he is resting comfortably in no distress. Family members are in the room with the patient. Current labs include a white count of 10.8, hemoglobin 10.7, hematocrit 31.3, and a normal platelet count of 253,000. Sodium 131, potassium 3.4, chlorides 91, CO2 31, anion gap 9, BUN 35, and creatinine 4.35. Glucose is 170. Calcium is 8.3. Progress note dated September 29, 2024. 79-year-old male seen again in room 370. The patient is currently undergoing hemodialysis, with a goal of removal of 2 L. The patient is on room air. He is on a Cardizem drip at 15 mg an hour. He is getting D5W at 50 cc an hour. Cu rrent labs include a white count 9.6, hemoglobin 10.6, hematocrit 31.6, and a platelet count of 262,000. Sodium 129, potassium 3.5, chloride 94, CO2 26, BUN 43, creatinine 5.34. Glucose 123. Calcium 8.2. Progress note dated September 30, 2024. 79-year-old male seen in room 370. The patient is resting comfortably in bed. He is on room air. Saturations are 100%. The patient is getting D5W at 50 cc an hour. He is also on Cardizem drip at 5 mg an hour. Current labs include a white count 7.6, hemoglobin 10.5, hematocrit 30.9, and a platelet count of 263,000. Sodium 127, potassium 3.5, chlorides 91, CO2 28, BUN 24, creatinine 4.15. Glucose is 144. Calcium is 8.6. Progress note dated October 01, 2024. 79-year-old male seen in room 370. The patient is resting comfortably in bed. He is currently on room air. He is getting D5W at 50 cc an hour. He continues on Cardizem drip at 5 mg an hour. The plan is for hemodialysis today. Current labs include a white count 6.9, hemoglobin 11, hematocrit 32.4, and a platelet count of 2 94,000. Sodium 130, potassium 3.6, chloride 72, CO2 29, BUN 28, creatinine 5.07. Glucose is 158. Calcium 8.8. Doppler of the right upper extremity, reveals no DVT. Chest x-ray from yesterday shows some very mild interstitial edema. Progress note dated October 02, 2024. 79-year-old male seen today in room 370. He is currently on room air. The pa tient is getting D5W at 50 cc an hour. The patient is no longer on Cardizem. The patient is apparently scheduled to have a PEG tube placed by surgery today. Family members are in the room. The patient is in no distress. Current labs include a white count 7.6, hemoglobin 10.6, hematocrit 31.5, and a normal platelet count. Sodium 128, potassium 3.7, chloride 91, CO2 28, BUN 18, creatinine 4.07. Glucose 174. Calcium 8.7. On 10/03/2024, the patient is being seen for a follow-up. Patient is resting comfortably in bed. No significant shortness of breath. Is a bit lethargic. He is post acute/subacute CVA involving the right MCA territory, in addition to new onset atrial fibrillation with a controlled rate. He does have nonobstructive coronary artery disease, has a loop recorder implantation back in 2020 and the patient is incisional disease on hemodialysis 3 times a week and last hemodialysis was on 10/01/2024. Other comorbidities include hypertension, hyperlipidemia, CVA in the past and diabetes mellitus. Noted the patient had developed dysphagia and based on that the patient was given a PEG tube for enteral feeding and nutritional support. Resting comfortably in bed. The white cell count of 12 with a hemoglobin 10.4 and a platelet count of 309. BUN is 25 with a creatinine of 5.20 sodium levels at 126. Blood sugars at 122. The patient remains on aspirin 300 mg rectally. The patient is also on Coreg 25 mg p.o. twice a day, Levemir insulin 20 units nightly and NovoLog/scale coverage. The most recent CAT scan of the brain from this afternoon showed evolving right MCA territory infarct with trace petechial hemorrhage. No midline shift. Of the upper extremity shows no evidence of any DVT. The cardiac rhythm is atrial fibrillation. On 10/04/2024, the patient is being seen for a follow-up. Patient was started on enteral feeding for nutritional support. Tolerating diet reasonably well. No specific complaints. Resting comfortably in bed. Overall, feels quite tired. He remains n.p.o. as the patient receives enteral feeding for nutritional support. Remains on aspirin. Rest of the medications remain unchanged. No new onset focal neurological deficits for now. Remains quite weak on the left related to his recent CVA. The white cell count is at 7.8, hemoglobin is 10.4 and platelet count of 289. BUN is 36 with a creatinine of 5.8 and a sodium le vels at 126. The patient underwent hemodialysis today. CT scan of the brain from yesterday was noted and the CAT scan showed evolving right MCA territory infarct with trace petechial hemorrhage. No midline shift. Of the upper extremity shows no evidence of any DVT. The cardiac rhythm is atrial fibrillation. Objective - Vital Signs Vital signs: Vital Signs Temp 98 F 10/04/24 09:00 Pulse 77 10/04/24 10:27 Resp 16 10/04/24 10:27 BP 130/55 10/04/24 09:00 Pulse Ox 98 10/04/24 09:00 FiO2 60 09/26/24 16:00 Intake & Output 10/03/24 10/04/24 10/04/24 18:59 06:59 18:59 Intake Total 30 90 Output Total 150 Balance -120 90 Weight 85 kg 94 kg Intake: IV 10 10 Invasive Line 7 10 Invasive Line 8 10 Tube Feeding 20 80 Output: Urine 150 Other: Voiding Method Indwelling Catheter Indwelling Catheter Indwelling Catheter - Exam No acute distress, oriented 3. Lethargic and weak HEENT examination is grossly unremarkable. Mucous membranes are moist. No oral lesions. Neck supple. Full range of motion. No adenopathy thyromegaly or neck vein distention. Cardiovascular examination reveals an irregular rhythm and rate. S1-S2 normal. No S3 or S4. No discernible murmur noted. Lungs reveal bibasilar crackles. No wheezes or rhonchi. Breath sounds are equal bilaterally. The patient is currently on room air. Abdomen soft bowel sounds are heard. No masses or tenderness. Extremities are intact. No cyanosis clubbing or edema. Skin is without rash or lesion. Neurologic examination reveals left-sided weakness. - Labs CBC & Chem 7: 10/04/24 07:14 10/04/24 07:14 Labs: Abnormal Lab Results - Last 24 Hours (Table) 10/03/24 10/04/24 10/04/24 Range/Units 20:42 00:46 05:49 RBC (4.30-5.90) m/uL Hgb (13.0-17.5) gm/dL Hct (39.0-53.0) % Sodium (137-145) mmol/L Chloride (98-107) mmol/L BUN (9-20) mg/dL Creatinine (0.66-1.25) mg/dL Glucose (74-99) mg/dL POC Glucose (mg/dL) 132 H 132 H 157 H (70-110) mg/dL 10/04/24 10/04/24 10/04/24 Range/Units 07:14 07:14 11:58 RBC 3.19 L (4.30-5.90) m/uL Hgb 10.4 L (13.0-17.5) gm/dL Hct 29.9 L (39.0-53.0) % Sodium 126 L (137-145) mmol/L Chloride 89 L (98-107) mmol/L BUN 36 H (9-20) mg/dL Creatinine 5.82 H (0.66-1.25) mg/dL Glucose 130 H (74-99) mg/dL POC Glucose (mg/dL) 111 H (70-110) mg/dL Assessment and Plan Plan: Ischemic stroke involving the right MCA territory predominantly on the right frontal lobe and insular cortex. Follow-up CT scan today revealed questionable petechial hemorrhage over the right frontal parietal. Patient remains on asp irin rectally 300 mg daily. Neurologist on the case Atrial fibrillation, with a controlled rate, no anticoagulants yet Dysphagia secondary to CVA post PEG tube insertion on 10/02/2024 Bilateral pleural effusions/most likely secondary to chronic renal failure or diastolic congestive heart failure, patient had normal LV function based on his last echocardiogram. Benign essential hypertension. Dyslipidemia. History of CVA. Diabetes with diabetic peripheral neuropathy. History of seizures. End-stage renal disease, on hemodialysis Thursday schedule. Plan: Patient currently on room air oxygen PEG tube was inserted on 10/02/2024 and the patient was started on enteral feeding for nutritional support Continue aspirin No anticoagulants yet Continue Coreg 25 mg twice a day and the patient has a controlled rate Continue Keppra 500 mg IV every 12 hours Continue Lipitor 80 mg daily Levemir insulin 20 units nightly along with a sliding scale insulin coverage Hemodialysis per nephrology, the patient is being dialyzed TTS, hemodialysis was performed today Will continue to follow
[2024-10-04 23:59] LABS: Glucose,Whole Blood 104 mg/dL (70-110)
[2024-10-05 06:29] LABS: Glucose,Whole Blood 177 mg/dL (70-110)
--- NOTE | 2024-10-05 11:06 | P.PN ---
Subjective Progress Note Date: 10/04/24 10/04/2024: Patient was seen for a follow-up. Patient's was also present. She states patient is much more alert and awake however he is very confused, not thinking right. Everything she has he says "I do not know". Physically he is much improved. Please refer to examination below. Patient underwent hemodialysis today. 10/03/2024: Patient was last seen by myself on 09/25/2024. Since then patient has been seen by Dr. Jf Hall. Please refer to his notes for details. Apparently patient has been improving, mentation was improving in the left side he was moving better. Family mentions that he was able to move his arms and legs and was able to turn around. However today he has been more lethargic. This prompted a repeat CT head performed today. Patient's family members were present. They said that he has not slept since he came in the hospital. He received Ativan 0.5 mg at 9:16 PM last night and he has been sleeping since. She is not holding arms, not waking up. His last hemodialysis was on Thursday. He is due for another 1 tomorrow on Thursday. He gets it every Thursday, and Saturdays. Objective - Vital Signs Vital signs: Vital Signs Temp 98.1 F 10/04/24 16:15 Pulse 65 10/04/24 17:08 Resp 16 10/04/24 17:08 BP 113/64 10/04/24 16:15 Pulse Ox 98 10/04/24 16:15 FiO2 60 09/26/24 16:00 Intake & Output 10/03/24 10/04/24 10/04/24 18:59 06:59 18:59 Intake Total 30 390 Output Total 150 3964 Balance -120 -3574 Weight 85 kg 94 kg Intake: IV 10 10 Invasive Line 7 10 Invasive Line 8 10 Tube Feeding 20 80 Hemodialysis 300 Output: Urine 150 Hemodialysis 2132 Hemodialysis Net Amount 1832 Other: Voiding Method Indwelling Catheter Indwelling Catheter Indwelling Catheter - Exam Patient is very alert and awake, initiating conversation. Patient's believes that he is very confused. Patient continues to have left facial weakness, central type. His visual calzada are difficult to assess. Patient states his vision is "same", probable at baseline. On muscle strength testing, there is no obvious pronator drift. Patient's spooler strength is about 5 on the right, 5-on the left side. Patient has no obvious leg drift. He did not cooperate with full muscle strength testing. Sensations difficult to assess. - Labs CBC & Chem 7: 10/04/24 07:14 10/04/24 07:14 Labs: Abnormal Lab Results - Last 24 Hours (Table) 10/03/24 10/04/24 10/04/24 Range/Units 20:42 00:46 05:49 RBC (4.30-5.90) m/uL Hgb (13.0-17.5) gm/dL Hct (39.0-53.0) % Sodium (137-145) mmol/L Chloride (98-107) mmol/L BUN (9-20) mg/dL Creatinine (0.66-1.25) mg/dL Glucose (74-99) mg/dL POC Glucose (mg/dL) 132 H 132 H 157 H (70-110) mg/dL 10/04/24 10/04/24 10/04/24 Range/Units 07:14 07:14 11:58 RBC 3.19 L (4.30-5.90) m/uL Hgb 10.4 L (13.0-17.5) gm/dL Hct 29.9 L (39.0-53.0) % Sodium 126 L (137-145) mmol/L Chloride 89 L (98-107) mmol/L BUN 36 H (9-20) mg/dL Creatinine 5.82 H (0.66-1.25) mg/dL Glucose 130 H (74-99) mg/dL POC Glucose (mg/dL) 111 H (70-110) mg/dL Assessment and Plan Assessment: * Acute ischemic stroke involving the right MCA territory predominantly in the right frontal lobe and insular cortex. Event appears embolic in nature. * Questionable small petechial hemorrhage over the right fronto/parietal on the repeat CT of the head 10/03/2024. * Dysphagia due to above, status post PEG placement 10/02/2024 * New diagnosis of paroxysmal atrial fibrillation. 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 * Cognitive impairment, probable vascular dementia * Diabetes * ESRD on hemodialysis * Hypertension * Hyperlipidemia Plan: * Patient is physically remarkably improved. His confusion could be related to possible vascular dementia. * Repeat CT head 10/03/2024 revealed evolving right MCA territory infarct with trace petechial hemorrhage. No midline shift, no CT evidence of new infarct. Remote injuries to the bilateral frontal lobes and left temporal lobe with encephalomalacia. I personally reviewed CT head, agree with the findings. * MRI of the brain without contrast 09/24/2024 revealed acute/subacute CVA involving the right MCA territory, predominantly in the right frontal lobe and insular cortex. Remote injuries of the left parietal lobe and left inferior temporal lobe with encephalomalacia. Nonspecific white matter changes, likely secondary to small vessel ischemic disease. I personally reviewed MRI agree with the findings. Also evidence of old encephalomalacia involving right frontal and parietal region. Also evidence of some hemosiderin deposition in the left parietal region. Discussed MRI findings with stroke neurologist Dr. Centeno * 2-D echo with bubble study to rule out PFO. Patient may need KARISHMA. * Cardiology input appreciated. Patient had loop recorder interrogation and patient was found to have paroxysmal atrial fibrillation. * Hold off anticoagulation for now because of moderate-sized stroke, and petechial hemorrhage. Repeat CT head on Thursday10/06/2024. * CTA head and neck showed: No evidence of large vessel occlusion. Negative CTA of the neck. * EEG 09/26/2024 revealed background slowing, suggestive of mild encephalopathy. No focal slowing, epileptiform discharge or seizure on the EEG. * Fasting a.m. lipid panel cholesterol 106, LDL 25, HDL 65 and triglycerides 75. Continue Lipitor 80 mg. * Hemoglobin A1c 7.3. Recommend optimize control of diabetes to target A1c <7.0. * Optimize control of blood pressure. Keep it less than 160 systolic. * Continue aspirin 300 mg rectally. * Continue Keppra 500 mg twice daily Neuro checks every 2 hours. * Telemetry monitoring rule out any arrhythmia * PT, OT, speech therapy * DVT prophylaxis: Heparin 5000 units subcu every 12 hours
[2024-10-05 11:59] LABS: Glucose,Whole Blood 187 mg/dL (70-110)
--- NOTE | 2024-10-05 12:30 | P.PN ---
Subjective Progress Note Date: 10/05/24 SURGICAL PROGRESS NOTE CHIEF COMPLAINT: CVA HISTORY OF PRESENT ILLNESS: Patient is postop day#3 status post PEG tube placement. Tube feeds are currently at 40 mL/h. Patient tolerating tube feeds. PHYSICAL EXAM: VITAL SIGNS: Reviewed. GENERAL: Well-developed in no acute distress. ABDOMEN: Soft. Nondistended. Nontender. PEG tube site clean dry and intact. Bolster is currently loose ASSESSMENT: 1. Severe protein calorie malnutrition 2. CVA 3. Dysphagia and aspiration on MBS PLAN: -PEG tube bolster tightened per surgeon -Titrate tube feeds per dietitian Physician Automatic Furnace Operator note has been reviewed by physician. Signing provider agrees with the documented findings, assessment, and plan of care. Attestation Patient seen and examined at bedside. Status post PEG tube placement secondary to CVA. Tube feeds running at 40 cc. PEG tube bolster tightened at bedside. Titrate tube feeds per nutrition team. Continue medical management. Lorena Nick, Objective - Vital Signs Vital signs: Vital Signs Temp 98.2 F 10/05/24 03:47 Pulse 62 10/05/24 11:20 Resp 16 10/05/24 03:47 BP 150/61 10/05/24 03:47 Pulse Ox 98 10/05/24 03:47 FiO2 60 09/26/24 16:00 Intake & Output 10/04/24 10/05/24 10/05/24 18:59 06:59 18:59 Intake Total 390 Output Total 3964 Balance -3574 Weight 82.5 kg Intake: IV 10 Invasive Line 8 10 Tube Feeding 80 Hemodialysis 300 Output: Hemodialysis 2132 Hemodialysis Net Amount 1832 Other: Voiding Method Indwelling Catheter Indwelling Catheter - Labs CBC & Chem 7: 10/04/24 07:14 10/04/24 07:14 Labs: Abnormal Lab Results - Last 24 Hours (Table) 10/04/24 10/04/24 10/05/24 Range/Units 18:27 21:41 06:17 POC Glucose (mg/dL) 208 H 178 H 177 H (70-110) mg/dL 10/05/24 Range/Units 11:57 POC Glucose (mg/dL) 187 H (70-110) mg/dL
--- NOTE | 2024-10-05 12:51 | P.PN ---
Subjective Patient is seen for follow-up for end-stage renal disease. Patient is sleeping, he is arousable. Family present at bedside. No significant complaints Patient ate applesauce this morning according to his . He continues with tube feedings. Objective - Vital Signs Vital signs: Vital Signs Temp 98.2 F 10/05/24 03:47 Pulse 62 10/05/24 11:20 Resp 16 10/05/24 03:47 BP 150/61 10/05/24 03:47 Pulse Ox 98 10/05/24 03:47 FiO2 60 09/26/24 16:00 Intake & Output 10/04/24 10/05/24 10/05/24 18:59 06:59 18:59 Intake Total 390 Output Total 3964 Balance -3574 Weight 82.5 kg Intake: IV 10 Invasive Line 8 10 Tube Feeding 80 Hemodialysis 300 Output: Hemodialysis 2132 Hemodialysis Net Amount 1832 Other: Voiding Method Indwelling Catheter Indwelling Catheter - Exam patient is awake, comfortable, no acute distress. Examination of the heart S1 and S2 Examination of the lungs bilateral breath sounds are heard decreased breath sounds at the bases Abdomen is soft nontender Examination of lower extremity shows no significant edema - Labs CBC & Chem 7: 10/04/24 07:14 10/04/24 07:14 Labs: Abnormal Lab Results - Last 24 Hours (Table) 10/04/24 10/04/24 10/05/24 Range/Units 18:27 21:41 06:17 POC Glucose (mg/dL) 208 H 178 H 177 H (70-110) mg/dL 10/05/24 Range/Units 11:57 POC Glucose (mg/dL) 187 H (70-110) mg/dL Assessment and Plan Assessment: 1. End-stage renal disease maintained on hemodialysis on Thursday schedule. 2. Pneumonia maintained on antibiotics. 3. Diabetes mellitus. 4. Hypertension with chronic kidney disease. Exacerbated by steroids. 5. Acute/Subacute CVA-status post PEG tube placement 6. A-fib with RVR status post Cardizem drip Plan: Hemodialysis on schedule Continue with tube feeding
--- NOTE | 2024-10-05 13:52 | P.PN ---
Subjective Progress Note Date: 10/05/24 This is a 79-year-old male with history of end-stage renal disease, on hemodialysis Thursday and Thursday the patient himself is a very poor historian, most of the information obtained was from his daughter at bedside. The last couple of weeks, patient has been coughing and at times passing out, he had almost a dozen episodes of cough induced syncope. And never smoked, he has no history of COPD, his chest x-ray and CT of the chest done on this admission showed moderate bilateral pleural effusions with associated atelectasis. Chest x-ray showed mild interstitial prominence. Patient had his dialysis today and has CT of the chest done after dialysis clearly showed evidence of moderate-si zed bilateral pleural effusions not clearly appreciated on the chest x-ray. Labs today showed negative screening for influenza A, influenza B, RSV and COVID-19. CBC was noted to be unremarkable. Hemoglobin is a bit low at 10 basic metabolic profile is normal BUN is 43 creatinine 5.31, BNP level is 2840. After reviewing the patient chart, apparently the patient was recently in the hospital from and he was discharged on diagnosed as having tracheobronchitis, pulmonary was not consulted on his last admission. However patient was discharged home on doxycycline at 100 mg p.o. twice daily. That did not seem to make any difference on his cough and did not make any difference on his cough induced syncope. Echocardiogram on his last admission showed no evidence of LV dysfunction, no evidence of significant valvular heart disease and there was no evidence of pulmonary hypertension. His ejection fraction was 55 to 60% The patient is seen today September 23, 2024 in follow-up on the regular medical floor. He is currently sitting up at the bedside having breakfast. Awake and alert in no acute distress. Maintaining good O2 saturations in the 90s on room air. He did receive hemodialysis yesterday with 2 L removed. White count 14.6. Hemoglobin 11.4. Platelets 309. Sodium 135. Potassium 4.4. Bicarb 25. BUN 39. Creatinine 4.2. Glucose 247. Procalcitonin negative at 0.21. He is currently on DuoNeb and elations, Solu-Medrol, antibiotics in the form of ceftr iaxone and azithromycin. The patient is seen today September 26, 2024 in follow-up on the selective care unit. He is currently resting in bed. Maintaining O2 saturations in the 90s on room air. Has been afebrile. Hemodynamically stable. Remains with a left- sided arm and leg drift. Follow-up CT scan of the brain revealed a 0.4 cm petechial hemorrhage within the left parietal infarct. Increasing edema in the right parietal infarct has effacement of the Clint. No midline shift or significant ventricle compression. Old occipital watershed infarcts bilaterally. Neurology is following closely. White count 10.2. Hemoglobin 11.5. Platelets 278. Sodium 136. Potassium 3.9. Bicarb 27. BUN 61. Creatinine 5.22. Glucose 140. He remains on a Cardizem drip at 5 mg/h. Heparin placed on hold. Continued on Keppra. Progress note dated September 27, 2024. 79-year-old male who is seen today in room 370. Currently, the patient is receiving D5W at 50 cc an hour. The patient is currently on room air. He did have hemodialysis today. 2 L of fluid was removed. He is resting comfortably in bed. No acute distress. No respiratory distress. Current labs include a white count 10.6, hemoglobin 10.6, hematocrit 31.1, and a platelet count of 267,000. Sodium 135, potassium 3.6, chlorides 99, CO2 27, anion gap 9, BUN 64, creatinine 5.63. Glucose is 90. Calcium is 8.1. The scan of the brain shows an overall similar examination with evolving right MCA territory infarct and trace petechial hemorrhage. No midline shift. Remote injuries to the bilateral frontal lobes and left temporal lobe with encephalomalacia. Progress note dated September 28, 2024. 79-year-old male seen in room 370. The patient is currently on room air. Saturations are 100%. The patient is receiving D5W at 50 cc an hour. The patient had hemodialysis yesterday. 2 L was removed. Currently, he is resting comfortably in no distress. Family members are in the room with the patient. Current labs include a white count of 10.8, hemoglobin 10.7, hematocrit 31.3, and a normal platelet count of 253,000. Sodium 131, potassium 3.4, chlorides 91, CO2 31, anion gap 9, BUN 35, and creatinine 4.35. Glucose is 170. Calcium is 8.3. Progress note dated September 29, 2024. 79-year-old male seen again in room 370. The patient is currently undergoing hemodialysis, with a goal of removal of 2 L. The patient is on room air. He is on a Cardizem drip at 15 mg an hour. He is getting D5W at 50 cc an hour. Cu rrent labs include a white count 9.6, hemoglobin 10.6, hematocrit 31.6, and a platelet count of 262,000. Sodium 129, potassium 3.5, chloride 94, CO2 26, BUN 43, creatinine 5.34. Glucose 123. Calcium 8.2. Progress note dated September 30, 2024. 79-year-old male seen in room 370. The patient is resting comfortably in bed. He is on room air. Saturations are 100%. The patient is getting D5W at 50 cc an hour. He is also on Cardizem drip at 5 mg an hour. Current labs include a white count 7.6, hemoglobin 10.5, hematocrit 30.9, and a platelet count of 263,000. Sodium 127, potassium 3.5, chlorides 91, CO2 28, BUN 24, creatinine 4.15. Glucose is 144. Calcium is 8.6. Progress note dated October 01, 2024. 79-year-old male seen in room 370. The patient is resting comfortably in bed. He is currently on room air. He is getting D5W at 50 cc an hour. He continues on Cardizem drip at 5 mg an hour. The plan is for hemodialysis today. Current labs include a white count 6.9, hemoglobin 11, hematocrit 32.4, and a platelet count of 2 94,000. Sodium 130, potassium 3.6, chloride 72, CO2 29, BUN 28, creatinine 5.07. Glucose is 158. Calcium 8.8. Doppler of the right upper extremity, reveals no DVT. Chest x-ray from yesterday shows some very mild interstitial edema. Progress note dated October 02, 2024. 79-year-old male seen today in room 370. He is currently on room air. The pa tient is getting D5W at 50 cc an hour. The patient is no longer on Cardizem. The patient is apparently scheduled to have a PEG tube placed by surgery today. Family members are in the room. The patient is in no distress. Current labs include a white count 7.6, hemoglobin 10.6, hematocrit 31.5, and a normal platelet count. Sodium 128, potassium 3.7, chloride 91, CO2 28, BUN 18, creatinine 4.07. Glucose 174. Calcium 8.7. On 10/03/2024, the patient is being seen for a follow-up. Patient is resting comfortably in bed. No significant shortness of breath. Is a bit lethargic. He is post acute/subacute CVA involving the right MCA territory, in addition to new onset atrial fibrillation with a controlled rate. He does have nonobstructive coronary artery disease, has a loop recorder implantation back in 2020 and the patient is incisional disease on hemodialysis 3 times a week and last hemodialysis was on 10/01/2024. Other comorbidities include hypertension, hyperlipidemia, CVA in the past and diabetes mellitus. Noted the patient had developed dysphagia and based on that the patient was given a PEG tube for enteral feeding and nutritional support. Resting comfortably in bed. The white cell count of 12 with a hemoglobin 10.4 and a platelet count of 309. BUN is 25 with a creatinine of 5.20 sodium levels at 126. Blood sugars at 122. The patient remains on aspirin 300 mg rectally. The patient is also on Coreg 25 mg p.o. twice a day, Levemir insulin 20 units nightly and NovoLog/scale coverage. The most recent CAT scan of the brain from this afternoon showed evolving right MCA territory infarct with trace petechial hemorrhage. No midline shift. Of the upper extremity shows no evidence of any DVT. The cardiac rhythm is atrial fibrillation. On 10/04/2024, the patient is being seen for a follow-up. Patient was started on enteral feeding for nutritional support. Tolerating diet reasonably well. No specific complaints. Resting comfortably in bed. Overall, feels quite tired. He remains n.p.o. as the patient receives enteral feeding for nutritional support. Remains on aspirin. Rest of the medications remain unchanged. No new onset focal neurological deficits for now. Remains quite weak on the left related to his recent CVA. The white cell count is at 7.8, hemoglobin is 10.4 and platelet count of 289. BUN is 36 with a creatinine of 5.8 and a sodium le vels at 126. The patient underwent hemodialysis today. CT scan of the brain from yesterday was noted and the CAT scan showed evolving right MCA territory infarct with trace petechial hemorrhage. No midline shift. Of the upper extremity shows no evidence of any DVT. The cardiac rhythm is atrial fibrillation. On 10/05/2024, the patient is being seen for a follow-up. Patient is postop day #3 following a PEG tube insertion. Neurologically unchanged. Continues to have left-sided weakness. PEG tube insertion was done as the patient was having dysphagia and aspiration following his CVA. The patient has no labs from today. Medications remain unchanged. The patient remains on aspirin 160 mg daily. The patient remains on Levemir insulin 20 units daily and NovoLog sliding scale coverage. The patient remains on Lipitor 80 mg p.o. daily. Pulse ox is in the order of 98% on room air oxygen. Neurology is on the case. Nephrology is also on the case as the patient has chronic renal failure/end-stage renal disease and he undergoes hemodialysis 3 times a week TTS. BP is under adequate control for now. Cardiac rhythm remains atrial fibrillation. Most recent CAT scan of the brain was noted from 10/03/2024 that showed some trace petechial hemorrhage within the evolving right MCA distribution infarct. Objective - Vital Signs Vital signs: Vital Signs Temp 98.2 F 10/05/24 03:47 Pulse 62 10/05/24 11:20 Resp 16 10/05/24 03:47 BP 150/61 10/05/24 03:47 Pulse Ox 98 10/05/24 03:47 FiO2 60 09/26/24 16:00 Intake & Output 10/04/24 10/05/24 10/05/24 18:59 06:59 18:59 Intake Total 390 Output Total 3964 Balance -3574 Weight 82.5 kg Intake: IV 10 Invasive Line 8 10 Tube Feeding 80 Hemodialysis 300 Output: Hemodialysis 2132 Hemodialysis Net Amount 1832 Other: Voiding Method Indwelling Catheter Indwelling Catheter - Exam No acute distress, oriented 3. Lethargic and weak HEENT examination is grossly unremarkable. Mucous membranes are moist. No oral lesions. Neck supple. Full range of motion. No adenopathy thyromegaly or neck vein distention. Cardiovascular examination reveals an irregular rhythm and rate. S1-S2 normal. No S3 or S4. No discernible murmur noted. Lungs reveal bibasilar crackles. No wheezes or rhonchi. Breath sounds are equal bilaterally. The patient is currently on room air. Abdomen soft bowel sounds are heard. No masses or tenderness. Extremities are intact. No cyanosis clubbing or edema. Skin is without rash or lesion. Neurologic examination reveals left-sided weakness. - Labs CBC & Chem 7: 10/04/24 07:14 10/04/24 07:14 Labs: Abnormal Lab Results - Last 24 Hours (Table) 10/04/24 10/04/24 10/05/24 Range/Units 18:27 21:41 06:17 POC Glucose (mg/dL) 208 H 178 H 177 H (70-110) mg/dL 10/05/24 Range/Units 11:57 POC Glucose (mg/dL) 187 H (70-110) mg/dL Assessment and Plan Plan: Ischemic stroke involving the right MCA territory predominantly on the right frontal lobe and insular cortex. Follow-up CT scan today revealed questionable petechial hemorrhage over the right frontal parietal. Patient remains on aspirin rectally 300 mg daily. Neurologist on the case and neurologically the patient is unchanged. Atrial fibrillation, with a controlled rate, no anticoagulants yet, and the patient has a petechial hemorrhage within the right MCA distribution/territory stroke. Dysphagia secondary to CVA post PEG tube insertion on 10/02/2024, he is receiving enteral feeding via PEG tube. Bilateral pleural effusions/most likely secondary to chronic renal failure or diastolic congestive heart failure, patient had normal LV function based on his last echocardiogram. Benign essential hypertension. Dyslipidemia. History of CVA. Diabetes with diabetic peripheral neuropathy. History of seizures. End-stage renal disease, on hemodialysis Thursday schedule. Plan: Patient currently on room air oxygen PEG tube was inserted on 10/02/2024 and the patient was started on enteral feeding for nutritional support Continue aspirin No anticoagulants yet, until cleared by neurology Continue Coreg 25 mg twice a day and the patient has a controlled rate Continue Keppra 500 mg IV every 12 hours Continue Lipitor 80 mg daily Levemir insulin 20 units nightly along with a sliding scale insulin coverage Hemodialysis per nephrology, the patient is being dialyzed TTS, hemodialysis was performed on 10/04/2024 Will continue to follow
--- NOTE | 2024-10-05 14:04 | P.PN ---
Subjective HISTORY OF PRESENT ILLNESS: This is a 79-year-old male with a past medical history significant for coronary artery disease, hypertension, hyperlipidemia, CVA, diabetes, and chronic kidney disease. Patient follows in the office with Dr. Fischer. We have been asked to see the patient in consultation for CVA and loop recorder interrogation. Patient examined at the bedside. Patient was hospitalized earlier this month for cough induced syncope. Patient was discharged home and presented back to the hospital with similar symptoms. While in the hospital he developed left-sided weakness and was found to be positive for CVA. Patient currently denies chest pain or pressure. Denies shortness of breath. The patient was previously prescribed Eliquis for unknown reason however he was not currently taking this. Family has denied any history of atrial fibrillation or PE/DVT. Patient is currently maintaining sinus mechanism. Loop recorder interrogation performed revealing episodes of atrial fibrillation. DIAGNOSTICS: - EKG reveals sinus mechanism with no signs of acute ischemia - Chest xray hazy interstitial markings seen bilaterally may relate to infectious/inflammatory process. - Laboratory data: WBC 10.2. Hemoglobin 12.0. Platelet count 298. Sodium 134. Potassium 4.1. BUN 49. Creatinine 4.27. - Current home cardiac medications include aspirin 162.5 mg daily, Lipitor 20 mg at night, Imdur 120 mg daily, midodrine 10 mg 3 times a day as needed, Procardia 60 mg twice a day, Demadex 20 mg daily, carvedilol 12.5 mg twice a day - Most recent echocardiogram obtained in August 2024 revealed ejection fraction 55 to 60% with no significant valvular disease - Cardiac catheterization history: 2008 revealing approximately 40%, mid LAD 50%, diagonal 50%, circumflex 50%, and nondominant RCA with no significant stenosis -Patient underwent Lexiscan stress test in March 2024 which was negative for ischemia 09/26/2024 Was seen and examined resting comfortably in bed. Nuys any chest discomfort or shortness of breath. Continues to have issues with speech and swallowing. Facial droop noted. Awaiting swallow eval. Anticoagulation has not been initiated at this point. CT scan done this morning showed a 0.4 cm petechial hemorrhage within the left parietal infarct may be present, increasing edema in the right parietal infarct as effacement of the sulci, no midline shift or significant ventricle compression, old occipital watershed infarcts bilaterally. We are awaiting input from neurology in regards to anticoagulation. 09/27/2024 Patient was seen and examined resting comfortably in bed. He was seen by neurology yesterday and anticoagulation remains on hold due to moderate size stroke as well as questionable petechial hemorrhage. Plan for repeat CT of the head. 09/28/2024 Patient mated to atrial fibrillation RVR and was started on Cardizem drip. Patient's blood pressure was noticed to be fluctuating today. 09/29/24 Patient seen and examined. Repeat blood work reveals hemoglobin 10.6, BUN 43 creatinine 5.34, potassium 3.5 and sodium 129. Blood pressure 136/63, heart rate in the 60s, pulse ox 97 percent on room air. Telemetry remains atrial fibrillation running in the 70s. Patient is currently on IV Cardizem at 15 mg/h. Patient is quite sleepy today. We will plan to start patient on full anticoagulation once cleared by neurology. No plan for KARISHMA. 09/30/24 P unfortunately, patient failed swallow evaluation and family is considering tube feeding. atient seen and examined. He is scheduled for modified barium swallow today. Patient has been maintained on Cardizem drip as he is not taking any oral medications. 10/01/2024 Patient examined this morning at the bedside. Patient's family is present. Patient is sitting comfortably in bed. Telemetry reveals sinus mechanism. He has been evaluated by general surgery and is scheduled for EGD with PEG tube placement on 10/02/2023 10/02/2024 Patient examined this morning the bedside. His family is present. Patient is more awake today. No complaints of chest pain or shortness of breath. He complains of a headache this morning. Patient is scheduled for EGD with PEG tube placement today by general surgery. 10/03/2024 Patient examined this morning. Patient is lethargic at the time of examination. He underwent EGD with PEG tube placement yesterday. Vital signs are stable. Telemetry reveals sinus mechanism. 10/04/2024 Patient examined this morning at the bedside. Patient remains lethargic although somewhat improved from yesterday. No complaints of chest pain or shortness of breath. Telemetry reveals sinus mechanism with a heart rate in the 50s. CT of the brain reveals evolving right MCA territory infarct with trace petechial hemorrhage. No midline shift. No evidence for new infarct. 10/05/2024 Patient examined this morning at the bedside. Patient without complaints of chest pain or shortness of breath. Telemetry reveals sinus mechanism. Patients family is at the bedside and states that he has not slept all night. Vital signs stable. PHYSICAL EXAM: VITAL SIGNS: Reviewed. GENERAL: Well-developed in no acute distress. NECK: Supple. No JVD or thyromegaly LUNGS: Respirations even and unlabored. Lungs essentially clear to auscultation bilaterally. HEART: Regular rate and rhythm. S1 and S2 heard. EXTREMITIES: Left-sided weakness. Normal range of motion. No clubbing or cyanosis. Peripheral pulses intact. No lower extremity edema ASSESSMENT: Acute/subacute CVA involving right MCA territory New onset atrial fibrillation, currently rate controlled Recent diagnosis and hospitalization for tussive syncope Nonobstructive CAD, per cath 2008 History of loop recorder implantation, [place], 2020 Chronic kidney disease on hemodialysis Hypertension Hyperlipidemia History of CVA Diabetes End-stage renal disease on hemodialysis PLAN: Continue telemetry monitoring Continue current cardiac medications Awaiting clearance from neurology to start Eliquis. CT scan ordered for tomorrow. Await further input from neurology. Further recommendations pending patient course Nurse practitioner note has been reviewed by physician. Signing provider agrees with the documented findings, assessment, and plan of care documented by [employer] as a scribe. Objective - Vital Signs Vital signs: Vital Signs Temp 98.2 F 10/05/24 03:47 Pulse 64 10/05/24 07:46 Resp 16 10/05/24 03:47 BP 150/61 10/05/24 03:47 Pulse Ox 98 10/05/24 03:47 FiO2 60 09/26/24 16:00 Intake & Output 10/04/24 10/05/24 10/05/24 18:59 06:59 18:59 Intake Total 390 Output Total 3964 Balance -3574 Weight 82.5 kg Intake: IV 10 Invasive Line 8 10 Tube Feeding 80 Hemodialysis 300 Output: Hemodialysis 2132 Hemodialysis Net Amount 1832 Other: Voiding Method Indwelling Catheter Indwelling Catheter - Labs CBC & Chem 7: 10/04/24 07:14 10/04/24 07:14 Labs: Abnormal Lab Results - Last 24 Hours (Table) 10/04/24 10/04/24 10/04/24 Range/Units 11:58 18:27 21:41 POC Glucose (mg/dL) 111 H 208 H 178 H (70-110) mg/dL 10/05/24 Range/Units 06:17 POC Glucose (mg/dL) 177 H (70-110) mg/dL
--- NOTE | 2024-10-05 15:23 | CT ---
EXAMINATION TYPE: CT brain wo con DATE OF EXAM: 10/05/2024 COMPARISON: 10/03/2024 CLINICAL INDICATION: Male, 79 years old with history of f/u stroke; PHH, f/u cva CT DLP: 1096.4 mGycm Automated exposure control for dose reduction was used. Findings: The ventricles, basal cisterns and sulci over convexities are moderately enlarged consistent with mod erate age-appropriate atrophy. There are stable large remote ischemic infarcts involving the left parietal lobe and right parietal w lesley matter. There is an acute infarct involving the right frontal lobe in the distribution of the ri ght middle cerebral artery. There is a suggestion of a few small foci of petechial hemorrhage unchang ed compared to the prior study. There is no mass effect or shift of midline structures. The posterior fossa including the brainstem, fourth ventricle and cerebellar pontine angles appear no rmal. Intraorbital contents appear normal and symmetric. Visualized paranasal sinuses and mastoid air cells are well aerated. The calvarium is intact. IMPRESSION: 1. Acute infarct with probable petechial hemorrhage in the right frontal lobe in the distribution of the right MCA. Essentially no change compared to the prior study. 2. Large remote infarct involving the left parietal lobe and moderate remote infarct involving the ri ght parietal white matter. 3. No mass effect or shift of midline structures. 4. No significant interval change compared to the prior study. [facility], Workstation: [id number], 10/05/2024 3:20 PM
[2024-10-05] MEDS: ASPIRIN 81 MG PO SCH (17:50)
--- NOTE | 2024-10-05 18:19 | P.PN ---
Progress Note - Text Progress Note Date: 10/05/24 Patient is a 79-year-old male with ESRD, presenting for syncope induced by cough. Patient is poor historian. He was recently admitted for similar symptoms on September 12 and subsequently discharged with doxycycline for treatment of tracheobronchitis for mucous plugging. Since this time patient has had persistent symptoms with sputum production. Denying fever, chills, shortness of breath, chest pain, palpitations at this time. Labs completed in emergency room significant for WBC 6.7, hemoglobin 10.0, sodium 132, potassium 5.0, bicarb 20, BUN 43, creatinine 5.31, glucose 260, A1c 7.3, ALP 146, proBNP 2840, viral respiratory panel is negative. EKG done in the ER independently interpreted showed sinus rhythm heart rate of 60, no ST segment elevation or depression seen, no T-wave inversions seen. Chest x-ray done independently interpreted in the ER showed hazy interstitial markings bilaterally 09/23/2024 Patient seen and examined at bedside. No acute events overnight. Will discontinue antibiotics and steroids. Today's labs significant for WBC 14.6, BUN 38, creatinine 4.2, glucose ranging from 416-209, procalcitonin negative, blood cultures pending with no growth thus far. 09/24/2024 Patient seen and examined at bedside. Overnight patient began having strokelike symptoms at around 4 AM as witnessed by in the room with new onset left- sided weakness, left-sided facial droop and slurred speech with difficulty swallowing. Code stroke was called. Initial CT head with no evidence of acute intracranial process, later MRI of brain with subacute/acute CVA involving right MCA predominantly right frontal lobe and insular cortex. Patient given 300 mg of aspirin rectally as could not tolerate oral swallowing. Neurology consulted. Dialysis today. Today's labs WBC 12.0, hemoglobin 11.3, sodium 133, BUN 78, creatinine 5.24, glucose 166. 09/25. Patient seen and examined. Patient is moving his left upper extremity more than yesterday, also lifting his left lower extremity. Family thinks that patient has improved compared to yesterday 09/26/24: Patient evaluated at bedside today. Patient's family mentioned that his strength is better but currently the patient is very tired as he was up all night coughing. Labs show hemoglobin 11.5, sodium 136, BUN 61, creatinine 5.22. Brain CT shows 0.4 cm petechial hemorrhage within the left parietal infarct may be present, increasing edema in the right parietal infarct as effacement of the sulk I with no midline shift or significant ventricle compression, old occipital watershed infarcts bilaterally. 09/27/24: Patient examined today. Dysphagia evaluation by LEGAL ARBITRATOR showed poor toleration of PO trials exhibiting severe coughing with 2 attempts, continue strict NPO. Labs today show hemoglobin 10.6, sodium 135, BUN 64, creatinine 5.63. EEG done yesterday shows abnormal routine EEG, background slowing with history of mild encephalopathy, no focal slowing/epileptiform discharge/seizure. Hemodialysis today. 09/28/24: Patient evaluated at bedside. Patient had hemodialysis yesterday, 2L was removed. Labs today show WBC 10.8, hemoglobin 10.7, sodium 131, potassium 3.4, bicarb 31, BUN 35, creatinine 4.35. Repeat CT Brain showed overall similar examination with evolving right MCA territory infarct and trace petechial hemorrhage, no midline shift, Remote injuries to bilateral frontal lobes and left temporal lobe with encephalomalacia. 09/29/24: Patient seen and examined. Hemodialysis today. Labs today show hemoglobin 10.6, sodium 129, BUN 43, creatinine 5.34. 09/30/24: Patient evaluated today. Vitals show BP is 153/69. Labs today show Hb 10.5, Na 127, BUN 24, creatinine 4.15. EKG done yesterday independently interpreted as Atrial fibrillation with Rapid ventricular response. Hemodialysis yesterday, 2L of fluid was removed. Patient underwent the videofluoroscopic swallow study today. Patient's family was counseled about the importance of PEG tube. 10/01/24: Patient examined at bedside. BP today is 155/72. The family mentioned that the patient's right arm is swollen. Pateint denies any pain on the right arm. Labs today show hemoglobin 11, sodium 130, BUN 28, creatinine 5.07. Chest x-ray shows mild bilateral interstitial edema. PT and OT recommends RAFA placement/24-7 care or rehab to maximize mobility efforts, improve functional status. 10/02. Patient seen and examined. Family at the bedside. Patient scheduled for PEG tube placement today October 03: Spoke to nurse. Resume PEG tube for medications and feeding if okay with surgery. at the bedside. Patient rather sleepy today. October 04: Patient more awake today. Tired. at the bedside. Helping with [place] interpretation. Per neurology repeat CT scan tomorrow. Then consider initiating blood thinners. Patient getting tube feeding at 40 cc an hour. NPO. October 05: Tolerating tube feeding. Spoke to the nurse not much residual. CT scan brain done today shows infarct in the right MCA territory. With mild petechial hemorrhage. No change compared to prior study. Also evidence of prior infarcts. Spoke with manager case management Justin. Hopefully patient can be discharged tomorrow after decision about anticoagulation per neurology. Patient has paroxysmal atrial fibrillation. Patient's prognosis rather guarded. Active Medications Acetaminophen (Acetaminophen Tab 325 Mg Tab) 650 mg PO Q4HR PRN PRN Reason: Mild Pain or Fever > 100.5 Last Admin: 10/04/24 16:19 Dose: 650 mg Acetaminophen (Acetaminophen Suppository 650 Mg Supp) 650 mg RECTAL Q8HR PRN PRN Reason: Fever and/ or Pain Last Admin: 09/30/24 05:48 Dose: 650 mg Albuterol/Ipratropium (Ipratropium-Albuterol 3 Ml Neb) 3 ml INHALATION RT-Q2H PRN PRN Reason: Shortness Of Breath Or Wheezing Albuterol/Ipratropium (Ipratropium-Albuterol 3 Ml Neb) 3 ml INHALATION RT-QID [facility] [place] Last Admin: 10/05/24 15:10 Dose: 3 ml Aspirin (Aspirin 81 Mg) 162 mg PO DAILY [facility] [place] Last Admin: 10/05/24 17:50 Dose: 162 mg Atorvastatin Calcium (Atorvastatin 80 Mg Tab) 80 mg PO [facility] Last Admin: 10/04/24 21:15 Dose: 80 mg Carvedilol (Carvedilol 12.5 Mg Tab) 25 mg PO BID-W/MEALS [facility] [place] Last Admin: 10/05/24 17:50 Dose: 25 mg Dextrose/Water (Dextrose 50% Syringe 50 Ml) 25 ml IVP PER PROTOCOL PRN; Protocol PRN Reason: Hypoglycemia Last Admin: 09/24/24 12:29 Dose: 25 ml Dextrose/Water (Dextrose 50% Syringe 50 Ml) 50 ml IVP PER PROTOCOL PRN; Protocol PRN Reason: Hypoglycemia Last Admin: 09/24/24 05:38 Dose: 50 ml Duloxetine HCl (Duloxetine Hcl 30 Mg Capsule.Dr) 30 mg PO [facility] Last Admin: 10/04/24 21:57 Dose: 30 mg Heparin Sodium (Porcine) (Heparin Sodium,Porcine 5,000 Unit/Ml 1 Ml Vial) 5,000 unit SQ Q12HR [facility] [place] Last Admin: 10/05/24 10:20 Dose: 5,000 unit Insulin Aspart (Insulin Aspart (Novolog) 100 Unit/Ml Vial) 0 unit SQ [facility] [place]; Protocol Last Admin: 10/05/24 17:51 Dose: 3 unit Insulin Detemir (Insulin Detemir (Levemir) 100 Unit/Ml Syr) 20 unit SQ [facility] Last Admin: 10/04/24 21:15 Dose: 20 unit Levetiracetam (Levetiracetam Iv 500 Mg/5 Ml Vial) 500 mg IVP Q12HR [facility] [place] Last Admin: 10/05/24 10:20 Dose: 500 mg Multivit/Ca Carb/B Cmplx/FA/Prenat (Folic Acid-Vit B Complex-Vit C 1 Cap) 1 each PO TUTHSA@0900,2100 [facility] [place] Last Admin: 10/04/24 21:15 Dose: Not Given Naloxone HCl (Naloxone 0.4 Mg/Ml 1 Ml Vial) 0.2 mg IVP Q2M PRN PRN Reason: Opioid Reversal Ondansetron HCl (Ondansetron 4 Mg/2 Ml Vial) 4 mg IVP Q6HR PRN PRN Reason: Nausea And Vomiting Last Admin: 09/24/24 00:40 Dose: 4 mg Social history: No history of smoking or alcohol. Lives with his and daughter. Does use a walker. Daughter is the POA Physical examination: VITAL SIGNS: 98.2, 58, 16, 150 x 61, 98% room air GENERAL: Resting-tired EYES: Pupils equal. Conjunctiva normal. HEENT: External appearance of nose and ears normal, oral cavity grossly normal. NECK: JVD not raised; masses not palpable. HEART: First and second heart sounds are normal; minimal edema. LUNGS: Respiratory rate normal, decreased breath sounds ABDOMEN: Soft, no tenderness no guarding rigidity, liver spleen not palpable, no masses palpable. PEG tube with feeding PSYCH: Will answer questions occasionally NEUROLOGICAL: Mild left-sided facial droop. Patient is able to move all his limbs. Somewhat difficult to follow commands INVESTIGATIONS, reviewed in the clinical context: CT brain [October 05: Acute infarct with probable petechial hemorrhage in the right frontal lobe, in the distribution of right MCA. Essentially no change compared to the prior study. Large remote infarct involving the left parietal lobe and the moderate remote infarct involving the right right parietal white matter. October 04: White count 7.8 hemoglobin 10.4 sodium 126 potassium 3.7 BUN 36 creatinine 5.82 October 03: White count 12 hemoglobin 10.4 platelets 379 sodium 126 potassium 3.5 BUN [address] brain [October 03] evolving right MCA territory infarct with trace petechial hemorrhage. Remote injuries to bilateral frontal lobes and left temporal lobe with encephalomalacia Venous Doppler right upper extremity: No DVT Barium swallow: Aspiration thin liquids and suspected with nectar thick liquids. Poor bolus transfer CT brain [September 27]: Evolving right MCA territory infarct. Encephalomalacia within bilateral high parietal lobes and left parieto-occipital region left temporal lobe or from previous infarct EEG suggestive of encephalopathy. No epileptiform activity Brain MRI [September 16] acute/subacute CVA involving the right MCA territory predominantly the right frontal lobe and insular cortex. Chronic changes Assessment/Plan: Patient is a 79-year-old male with ESRD(TTS), presenting for cough induced syncope. He has been admitted for respiratory distress. The patient then had a CODE STROKE and he was found to have an acute CVA due to new onset atrial fibrillation. Brain CT showed petechial hemorrhage. MBS study showed inconsistent swallow and high risk for aspiration, surgery consulted for PEG tube placement. PT and OT recommend rehab upon discharge. 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 Repeat CT scan did show some evolution. With petechial hemorrhage. Repeat CT scan today as above no changes. Anticoagulation decision as per neurology # Paroxysmal, new onset Atrial fibrillation, Rapid ventricular response initially, now in sinus rhythm MRI brain with subacute CVA involving right MCA predominantly right frontal lobe and insular cortex Loop recorder interrogation showed new onset atrial fibrillation Brain CT shows 0.4 cm petechial hemorrhage within the left parietal infarct may be present, increasing edema in right parietal infarct as effacement of the sulci with no midline shift or significant ventricle compression, old occipital watershed infarcts bilaterally EEG-, background slowing with history of mild encephalopathy, no focal slowing/epileptiform discharge/seizure Repeat CT Brain showed overall similar examination with evolving right MCA territory infarct and trace petechial hemorrhage, no midline shift. Remote injuries to bilateral frontal lobes and left temporal lobe with encephalomalacia Bubble study was inconclusive Neurology following, based on today's CT scan we will decide about anticoagulation. Coreg 25 mg twice daily -Acute dysphagia secondary to stroke: Strict n.p.o. Dysphagia evaluation by LEGAL ARBITRATOR showed poor toleration of PO trials exhibiting severe coughing with 2 attempts, continue strict NPO Videofluoroscopic swallow study shows aspiration with thin liquids and suspected with nectar thick liquids, poor bolus transfer PEG tube placed on October 02-tube feeding being tolerated #. Right upper extremity edema Duplex venous ultrasound negative for DVT # Bilateral pleural effusion secondary to chronic kidney disease and/or diastolic congestive heart failure. Pulmonary following. 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 Stevens On hemodialysis -Chronic gait dysfunction uses a walker at home -Full code Decision about anticoagulation per neurology. Pros and cons nearly balance out. Overall prognosis guarded otherwise. Hopefully plan for discharge home tomorrow.
[2024-10-05 18:40] LABS: Glucose,Whole Blood 197 mg/dL (70-110)
[2024-10-06 00:06] LABS: Glucose,Whole Blood 122 mg/dL (70-110)
[2024-10-06 06:25] LABS: Glucose,Whole Blood 176 mg/dL (70-110)
--- NOTE | 2024-10-06 11:08 | P.PN ---
Subjective HISTORY OF PRESENT ILLNESS: This is a 79-year-old male with a past medical history significant for coronary artery disease, hypertension, hyperlipidemia, CVA, diabetes, and chronic kidney disease. Patient follows in the office with Dr. Fischer. We have been asked to see the patient in consultation for CVA and loop recorder interrogation. Patient examined at the bedside. Patient was hospitalized earlier this month for cough induced syncope. Patient was discharged home and presented back to the hospital with similar symptoms. While in the hospital he developed left-sided weakness and was found to be positive for CVA. Patient currently denies chest pain or pressure. Denies shortness of breath. The patient was previously prescribed Eliquis for unknown reason however he was not currently taking this. Family has denied any history of atrial fibrillation or PE/DVT. Patient is currently maintaining sinus mechanism. Loop recorder interrogation performed revealing episodes of atrial fibrillation. DIAGNOSTICS: - EKG reveals sinus mechanism with no signs of acute ischemia - Chest xray hazy interstitial markings seen bilaterally may relate to infectious/inflammatory process. - Laboratory data: WBC 10.2. Hemoglobin 12.0. Platelet count 298. Sodium 134. Potassium 4.1. BUN 49. Creatinine 4.27. - Current home cardiac medications include aspirin 162.5 mg daily, Lipitor 20 mg at night, Imdur 120 mg daily, midodrine 10 mg 3 times a day as needed, Procardia 60 mg twice a day, Demadex 20 mg daily, carvedilol 12.5 mg twice a day - Most recent echocardiogram obtained in August 2024 revealed ejection fraction 55 to 60% with no significant valvular disease - Cardiac catheterization history: 2008 revealing approximately 40%, mid LAD 50%, diagonal 50%, circumflex 50%, and nondominant RCA with no significant stenosis -Patient underwent Lexiscan stress test in March 2024 which was negative for ischemia 09/26/2024 Was seen and examined resting comfortably in bed. [place] any chest discomfort or shortness of breath. Continues to have issues with speech and swallowing. Facial droop noted. Awaiting swallow eval. Anticoagulation has not been initiated at this point. CT scan done this morning showed a 0.4 cm petechial hemorrhage within the left parietal infarct may be present, increasing edema in the right parietal infarct as effacement of the sulci, no midline shift or significant ventricle compression, old occipital watershed infarcts bilaterally. We are awaiting input from neurology in regards to anticoagulation. 09/27/2024 Patient was seen and examined resting comfortably in bed. He was seen by neurology yesterday and anticoagulation remains on hold due to moderate size stroke as well as questionable petechial hemorrhage. Plan for repeat CT of the head. 09/28/2024 Patient mated to atrial fibrillation RVR and was started on Cardizem drip. Patient's blood pressure was noticed to be fluctuating today. 09/29/24 Patient seen and examined. Repeat blood work reveals hemoglobin 10.6, BUN 43 creatinine 5.34, potassium 3.5 and sodium 129. Blood pressure 136/63, heart rate in the 60s, pulse ox 97 percent on room air. Telemetry remains atrial fibrillation running in the 70s. Patient is currently on IV Cardizem at 15 mg/h. Patient is quite sleepy today. We will plan to start patient on full anticoagulation once cleared by neurology. No plan for KARISHMA. 09/30/24 P unfortunately, patient failed swallow evaluation and family is considering tube feeding. atient seen and examined. He is scheduled for modified barium swallow today. Patient has been maintained on Cardizem drip as he is not taking any oral medications. 10/01/2024 Patient examined this morning at the bedside. Patient's family is present. Patient is sitting comfortably in bed. Telemetry reveals sinus mechanism. He has been evaluated by general surgery and is scheduled for EGD with PEG tube placement on 10/02/2023 10/02/2024 Patient examined this morning the bedside. His family is present. Patient is more awake today. No complaints of chest pain or shortness of breath. He complains of a headache this morning. Patient is scheduled for EGD with PEG tube placement today by general surgery. 10/03/2024 Patient examined this morning. Patient is lethargic at the time of examination. He underwent EGD with PEG tube placement yesterday. Vital signs are stable. Telemetry reveals sinus mechanism. 10/04/2024 Patient examined this morning at the bedside. Patient remains lethargic although somewhat improved from yesterday. No complaints of chest pain or shortness of breath. Telemetry reveals sinus mechanism with a heart rate in the 50s. CT of the brain reveals evolving right MCA territory infarct with trace petechial hemorrhage. No midline shift. No evidence for new infarct. 10/05/2024 Patient examined this morning at the bedside. Patient without complaints of chest pain or shortness of breath. Telemetry reveals sinus mechanism. Patients family is at the bedside and states that he has not slept all night. Vital signs stable. 10/06/2024 Patient examined this morning at the bedside. Patient without complaints of c hest pain or shortness of breath. Family states he is improved today and is getting closer to being back to his baseline. Telemetry reveals sinus mechanism. Vital signs are stable. PHYSICAL EXAM: VITAL SIGNS: Reviewed. GENERAL: Well-developed in no acute distress. NECK: Supple. No JVD or thyromegaly LUNGS: Respirations even and unlabored. Lungs essentially clear to auscultation bilaterally. HEART: Regular rate and rhythm. S1 and S2 heard. EXTREMITIES: Left-sided weakness. Normal range of motion. No clubbing or cyanosis. Peripheral pulses intact. No lower extremity edema ASSESSMENT: Acute/subacute CVA involving right MCA territory New onset atrial fibrillation, currently rate controlled Recent diagnosis and hospitalization for tussive syncope Nonobstructive CAD, per cath 2008 History of loop recorder implantation, [employer], 2020 Chronic kidney disease on hemodialysis Hypertension Hyperlipidemia History of CVA Diabetes End-stage renal disease on hemodialysis PLAN: Continue telemetry monitoring Continue current cardiac medications Awaiting clearance from neurology to start Eliquis. CT of the head to be completed today per their documentation. Await further input from neurology. Further recommendations pending patient course Nurse practitioner note has been reviewed by physician. Signing provider agrees with the documented findings, assessment, and plan of care documented by RN PSYCHIATRIC as a scribe. Objective - Vital Signs Vital signs: Vital Signs Temp 97.9 F 10/06/24 03:56 Pulse 74 10/06/24 08:52 Resp 17 10/06/24 03:56 BP 155/56 10/06/24 03:56 Pulse Ox 98 10/06/24 03:56 FiO2 60 09/26/24 16:00 Intake & Output 10/05/24 10/06/24 10/06/24 18:59 06:59 18:59 Intake Total 90 Balance 90 Weight 82.5 kg Intake: Tube Feeding 90 Other: Voiding Method Indwelling Catheter Indwelling Catheter - Labs CBC & Chem 7: 10/04/24 07:14 10/04/24 07:14 Labs: Abnormal Lab Results - Last 24 Hours (Table) 10/05/24 10/05/24 10/06/24 Range/Units 11:57 18:38 00:04 POC Glucose (mg/dL) 187 H 197 H 122 H (70-110) mg/dL 10/06/24 Range/Units 06:24 POC Glucose (mg/dL) 176 H (70-110) mg/dL
[2024-10-06 11:35] LABS: Glucose,Whole Blood 205 mg/dL (70-110)
--- NOTE | 2024-10-06 12:30 | P.PN ---
Subjective Progress Note Date: 10/06/24 SURGICAL PROGRESS NOTE CHIEF COMPLAINT: CVA HISTORY OF PRESENT ILLNESS: Patient is postop day#4 status post PEG tube placement. Patient is tolerating tube feeds. Per nursing staff patient might be discharged today. PHYSICAL EXAM: VITAL SIGNS: Reviewed. GENERAL: Well-developed in no acute distress. ABDOMEN: Soft. Nondistended. Nontender. PEG tube site clean dry and intact. Bolster remains tightened. There is some minimal dried blood noted around PEG tube site ASSESSMENT: 1. Severe protein calorie malnutrition 2. CVA 3. Dysphagia and aspiration on MBS PLAN: -Titrate tube feeds per dietitian -Patient can be discharged from surgical standpoint when medically cleared Physician Youth Specialist note has been reviewed by physician. Signing provider agrees with the documented findings, assessment, and plan of care. Attestation Patient seen and examined at bedside. Tolerating PEG tube feeding. PEG appears to be intact. No significant changes. Continue to titrate tube feeds to goal per dietitian. Please call surgical service for further evaluation should there be any change in clinical progress. Lorena Nick, Objective - Vital Signs Vital signs: Vital Signs Temp 97.9 F 10/06/24 03:56 Pulse 68 10/06/24 12:18 Resp 17 10/06/24 03:56 BP 155/56 10/06/24 03:56 Pulse Ox 98 10/06/24 03:56 FiO2 60 09/26/24 16:00 Intake & Output 10/05/24 10/06/24 10/06/24 18:59 06:59 18:59 Intake Total 90 Balance 90 Weight 82.5 kg Intake: Tube Feeding 90 Other: Voiding Method Indwelling Catheter Indwelling Catheter - Labs CBC & Chem 7: 10/04/24 07:14 10/04/24 07:14 Labs: Abnormal Lab Results - Last 24 Hours (Table) 10/05/24 10/06/24 10/06/24 Range/Units 18:38 00:04 06:24 POC Glucose (mg/dL) 197 H 122 H 176 H (70-110) mg/dL 10/06/24 Range/Units 11:34 POC Glucose (mg/dL) 205 H (70-110) mg/dL
[2024-10-06 12:31] VITALS: BMI 28.5
--- NOTE | 2024-10-06 13:13 | P.PN ---
Subjective Patient is seen for follow-up for end-stage renal disease. Patient is sleeping, he is arousable. Family present at bedside. No significant complaints Scheduled for hemodialysis today Objective - Vital Signs Vital signs: Vital Signs Temp 97.9 F 10/06/24 03:56 Pulse 72 10/06/24 12:30 Resp 17 10/06/24 03:56 BP 155/56 10/06/24 03:56 Pulse Ox 98 10/06/24 03:56 FiO2 60 09/26/24 16:00 Intake & Output 10/05/24 10/06/24 10/06/24 18:59 06:59 18:59 Intake Total 90 Balance 90 Weight 82.5 kg 82.5 kg Intake: Tube Feeding 90 Other: Voiding Method Indwelling Catheter Indwelling Catheter - Exam patient is awake, comfortable, no acute distress. Examination of the heart S1 and S2 Examination of the lungs bilateral breath sounds are heard decreased breath sounds at the bases Abdomen is soft nontender Examination of lower extremity shows no significant edema - Labs CBC & Chem 7: 10/04/24 07:14 10/04/24 07:14 Labs: Abnormal Lab Results - Last 24 Hours (Table) 10/05/24 10/06/24 10/06/24 Range/Units 18:38 00:04 06:24 POC Glucose (mg/dL) 197 H 122 H 176 H (70-110) mg/dL 10/06/24 Range/Units 11:34 POC Glucose (mg/dL) 205 H (70-110) mg/dL Assessment and Plan Assessment: 1. End-stage renal disease maintained on hemodialysis on Thursday schedule. 2. Pneumonia maintained on antibiotics. 3. Diabetes mellitus. 4. Hypertension with chronic kidney disease. Exacerbated by steroids. 5. Acute/Subacute CVA-status post PEG tube placement 6. A-fib with RVR status post Cardizem drip Plan: Hemodialysis on TTS schedule Continue with tube feeding Discharge planning to rehab
--- NOTE | 2024-10-06 15:03 | P.PN ---
Progress Note - Text Progress Note Date: 10/06/24 Patient is a 79-year-old male with ESRD, presenting for syncope induced by cough. Patient is poor historian. He was recently admitted for similar symptoms on September 12 and subsequently discharged with doxycycline for treatment of tracheobronchitis for mucous plugging. Since this time patient has had persistent symptoms with sputum production. Denying fever, chills, shortness of breath, chest pain, palpitations at this time. Labs completed in emergency room significant for WBC 6.7, hemoglobin 10.0, sodium 132, potassium 5.0, bicarb 20, BUN 43, creatinine 5.31, glucose 260, A1c 7.3, ALP 146, proBNP 2840, viral respiratory panel is negative. EKG done in the ER independently interpreted showed sinus rhythm heart rate of 60, no ST segment elevation or depression seen, no T-wave inversions seen. Chest x-ray done independently interpreted in the ER showed hazy interstitial markings bilaterally 09/23/2024 Patient seen and examined at bedside. No acute events overnight. Will discontinue antibiotics and steroids. Today's labs significant for WBC 14.6, BUN 38, creatinine 4.2, glucose ranging from 416-209, procalcitonin negative, blood cultures pending with no growth thus far. 09/24/2024 Patient seen and examined at bedside. Overnight patient began having strokelike symptoms at around 4 AM as witnessed by in the room with new onset left- sided weakness, left-sided facial droop and slurred speech with difficulty swallowing. Code stroke was called. Initial CT head with no evidence of acute intracranial process, later MRI of brain with subacute/acute CVA involving right MCA predominantly right frontal lobe and insular cortex. Patient given 300 mg of aspirin rectally as could not tolerate oral swallowing. Neurology consulted. Dialysis today. Today's labs WBC 12.0, hemoglobin 11.3, sodium 133, BUN 78, creatinine 5.24, glucose 166. 09/25. Patient seen and examined. Patient is moving his left upper extremity more than yesterday, also lifting his left lower extremity. Family thinks that patient has improved compared to yesterday 09/26/24: Patient evaluated at bedside today. Patient's family mentioned that his strength is better but currently the patient is very tired as he was up all night coughing. Labs show hemoglobin 11.5, sodium 136, BUN 61, creatinine 5.22. Brain CT shows 0.4 cm petechial hemorrhage within the left parietal infarct may be present, increasing edema in the right parietal infarct as effacement of the sulk I with no midline shift or significant ventricle compression, old occipital watershed infarcts bilaterally. 09/27/24: Patient examined today. Dysphagia evaluation by [employer] showed poor toleration of PO trials exhibiting severe coughing with 2 attempts, continue strict NPO. Labs today show hemoglobin 10.6, sodium 135, BUN 64, creatinine 5.63. EEG done yesterday shows abnormal routine EEG, background slowing with history of mild encephalopathy, no focal slowing/epileptiform discharge/seizure. Hemodialysis today. 09/28/24: Patient evaluated at bedside. Patient had hemodialysis yesterday, 2L was removed. Labs today show WBC 10.8, hemoglobin 10.7, sodium 131, potassium 3.4, bicarb 31, BUN 35, creatinine 4.35. Repeat CT Brain showed overall similar examination with evolving right MCA territory infarct and trace petechial hemorrhage, no midline shift, Remote injuries to bilateral frontal lobes and left temporal lobe with encephalomalacia. 09/29/24: Patient seen and examined. Hemodialysis today. Labs today show hemoglobin 10.6, sodium 129, BUN 43, creatinine 5.34. 09/30/24: Patient evaluated today. Vitals show BP is 153/69. Labs today show Hb 10.5, Na 127, BUN 24, creatinine 4.15. EKG done yesterday independently interpreted as Atrial fibrillation with Rapid ventricular response. Hemodialysis yesterday, 2L of fluid was removed. Patient underwent the videofluoroscopic swallow study today. Patient's family was counseled about the importance of PEG tube. 10/01/24: Patient examined at bedside. BP today is 155/72. The family mentioned that the patient's right arm is swollen. Pateint denies any pain on the right arm. Labs today show hemoglobin 11, sodium 130, BUN 28, creatinine 5.07. Chest x-ray shows mild bilateral interstitial edema. PT and OT recommends RAFA placement/24-7 care or rehab to maximize mobility efforts, improve functional status. 10/02. Patient seen and examined. Family at the bedside. Patient scheduled for PEG tube placement today October 03: Spoke to nurse. Resume PEG tube for medications and feeding if okay with surgery. at the bedside. Patient rather sleepy today. October 04: Patient more awake today. Tired. at the bedside. Helping with Croatian interpretation. Per neurology repeat CT scan tomorrow. Then consider initiating blood thinners. Patient getting tube feeding at 40 cc an hour. NPO. October 05: Tolerating tube feeding. Spoke to the nurse not much residual. CT scan brain done today shows infarct in the right MCA territory. With mild petechial hemorrhage. No change compared to prior study. Also evidence of prior infarcts. Spoke with case consultant Justin. Hopefully patient can be discharged tomorrow after decision about anticoagulation per neurology. Patient has paroxysmal atrial fibrillation. Patient's prognosis rather guarded. This evening had a three-way conversation with me on the phone Dr. Bustillo in the patient's room having been on the phone and patient's family including her daughter at the bedside. Pros and cons at length about putting the patient Eliquis in view of the CAT scan was discussed. Understanding this risk of bleeding with Eliquis in view of atrial fibrillation. Finally the daughter decided to continue with the Eliquis understanding the risk of bleeding. Aspirin will be discontinued. Advance care planning: This was discussed with patient's daughter. Patient's overall multiple medical problems were discussed including strokes of different area. Cognitive impairment. On dialysis. She wants the patient to be a DNR. Questions answered. Time spent about 25 minutes October 06: Patient remained tired lethargic. Patient's and son at the bedside. Lengthy discussion. They understand prognosis guarded. Tolerating PEG tube feeding. Spoke to social worker health services Justin about disposition. Later this afternoon I was told that he actually he did get up with assistance to a chair. In did follow commands will probably qualify for rehab. Awaiting the same. As per discussion yesterday Eliquis has been started and aspirin being discont inued. At Active Medications Acetaminophen (Acetaminophen Tab 325 Mg Tab) 650 mg PO Q4HR PRN PRN Reason: Mild Pain or Fever > 100.5 Last Admin: 10/04/24 16:19 Dose: 650 mg Acetaminophen (Acetaminophen Suppository 650 Mg Supp) 650 mg RECTAL Q8HR PRN PRN Reason: Fever and/ or Pain Last Admin: 09/30/24 05:48 Dose: 650 mg Albuterol/Ipratropium (Ipratropium-Albuterol 3 Ml Neb) 3 ml INHALATION RT-Q2H PRN PRN Reason: Shortness Of Breath Or Wheezing Albuterol/Ipratropium (Ipratropium-Albuterol 3 Ml Neb) 3 ml INHALATION RT-QID [facility] Last Admin: 10/06/24 12:17 Dose: 3 ml Apixaban (Apixaban 2.5 Mg Tablet) 2.5 mg PO BID [facility]; Protocol Atorvastatin Calcium (Atorvastatin 80 Mg Tab) 80 mg PO [facility] Last Admin: 10/05/24 21:30 Dose: 80 mg Carvedilol (Carvedilol 12.5 Mg Tab) 25 mg PO BID-W/MEALS [facility] Last Admin: 10/06/24 06:30 Dose: 25 mg Dextrose/Water (Dextrose 50% Syringe 50 Ml) 25 ml IVP PER PROTOCOL PRN; Protocol PRN Reason: Hypoglycemia Last Admin: 09/24/24 12:29 Dose: 25 ml Dextrose/Water (Dextrose 50% Syringe 50 Ml) 50 ml IVP PER PROTOCOL PRN; Protocol PRN Reason: Hypoglycemia Last Admin: 09/24/24 05:38 Dose: 50 ml Duloxetine HCl (Duloxetine Hcl 30 Mg Capsule.Dr) 30 mg PO [facility] Last Admin: 10/05/24 21:30 Dose: 30 mg Insulin Aspart (Insulin Aspart (Novolog) 100 Unit/Ml Vial) 0 unit SQ [facility]; Protocol Last Admin: 10/06/24 06:30 Dose: 3 unit Insulin Detemir (Insulin Detemir (Levemir) 100 Unit/Ml Syr) 20 unit SQ [facility] Last Admin: 10/05/24 21:31 Dose: 20 unit Levetiracetam (Levetiracetam Iv 500 Mg/5 Ml Vial) 500 mg IVP Q12HR [facility] Last Admin: 10/06/24 09:56 Dose: 500 mg Multivit/Ca Carb/B Cmplx/FA/Prenat (Folic Acid-Vit B Complex-Vit C 1 Cap) 1 each PO TUTHSA@0900,2100 [facility] Last Admin: 10/04/24 21:15 Dose: Not Given Naloxone HCl (Naloxone 0.4 Mg/Ml 1 Ml Vial) 0.2 mg IVP Q2M PRN PRN Reason: Opioid Reversal Ondansetron HCl (Ondansetron 4 Mg/2 Ml Vial) 4 mg IVP Q6HR PRN PRN Reason: Nausea And Vomiting Last Admin: 09/24/24 00:40 Dose: 4 mg Social history: No history of smoking or alcohol. Lives with his and daughter. Does use a walker. Daughter is the POA Physical examination: VITAL SIGNS: 97.9, 56, 17, 155 x 56, 98% room air GENERAL: Lethargic but arousable EYES: Pupils equal. Conjunctiva normal. HEENT: External appearance of nose and ears normal, oral cavity grossly normal. NECK: JVD not raised; masses not palpable. HEART: First and second heart sounds are normal; minimal edema. LUNGS: Respiratory rate normal, decreased breath sounds ABDOMEN: Soft, no tenderness no guarding rigidity, liver spleen not palpable, no masses palpable. PEG tube with feeding PSYCH: Will answer questions occasionally NEUROLOGICAL: Mild left-sided facial droop. Patient is able to move all his limbs. Somewhat difficult to follow commands. Physical therapy today with assistance to sit up in a chair INVESTIGATIONS, reviewed in the clinical context: CT brain [October 05: Acute infarct with probable petechial hemorrhage in the right frontal lobe, in the distribution of right MCA. Essentially no change compared to the prior study. Large remote infarct involving the left parietal lobe and the moderate remote infarct involving the right right parietal white matter. October 04: White count 7.8 hemoglobin 10.4 sodium 126 potassium 3.7 BUN 36 creatinine 5.82 October 03: White count 12 hemoglobin 10.4 platelets 379 sodium 126 potassium 3.5 BUN [address] brain [October 03] evolving right MCA territory infarct with trace petechial hemorrhage. Remote injuries to bilateral frontal lobes and left temporal lobe with encephalomalacia Venous Doppler right upper extremity: No DVT Barium swallow: Aspiration thin liquids and suspected with nectar thick liquids. Poor bolus transfer CT brain [September 27]: Evolving right MCA territory infarct. Encephalomalacia within bilateral high parietal lobes and left parieto-occipital region left temporal lobe or from previous infarct EEG suggestive of encephalopathy. No epileptiform activity Brain MRI [September 16] acute/subacute CVA involving the right MCA territory predominantly the right frontal lobe and insular cortex. Chronic changes Assessment/Plan: Patient is a 79-year-old male with ESRD(TTS), presenting for cough induced syncope. He has been admitted for respiratory distress. The patient then had a CODE STROKE and he was found to have an acute CVA due to new onset atrial fibrillation. Brain CT showed petechial hemorrhage. MBS study showed inconsistent swallow and high risk for aspiration, surgery consulted for PEG tube placement. PT and OT recommend rehab upon discharge. 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 Repeat CT scan did show some evolution. With petechial hemorrhage. Repeat CT scan today as above no changes. Eliquis to be started today after discussion with family yesterday. Aspirin is being discontinued. y # Paroxysmal, new onset Atrial fibrillation, Rapid ventricular response initially, now in sinus rhythm MRI brain with subacute CVA involving right MCA predominantly right frontal lobe and insular cortex Loop recorder interrogation showed new onset atrial fibrillation Brain CT shows 0.4 cm petechial hemorrhage within the left parietal infarct may be present, increasing edema in right parietal infarct as effacement of the sulci with no midline shift or significant ventricle compression, old occipital watershed infarcts bilaterally EEG-, background slowing with history of mild encephalopathy, no focal slowing/epileptiform discharge/seizure Repeat CT Brain showed overall similar examination with evolving right MCA territory infarct and trace petechial hemorrhage, no midline shift. Remote injuries to bilateral frontal lobes and left temporal lobe with encephalomalacia Bubble study was inconclusive Neurology following, Eliquis to be started as per discussion with neurology and patient's daughter's choice. Coreg 25 mg twice daily -Acute dysphagia secondary to stroke: Strict n.p.o. Dysphagia evaluation by [employer] showed poor toleration of PO trials exhibiting tova re coughing with 2 attempts, continue strict NPO Videofluoroscopic swallow study shows aspiration with thin liquids and suspected with nectar thick liquids, poor bolus transfer PEG tube placed on October 02-tube feeding being tolerated #. Right upper extremity edema Duplex venous ultrasound negative for DVT # Bilateral pleural effusion secondary to chronic kidney disease and/or diastolic congestive heart failure. Pulmonary following. 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 Stevens On hemodialysis -Chronic gait dysfunction uses a walker at home -DNR: Discussed with patient's daughter and . Lengthy discussion patient's and son at the bedside. Understand prognosis guarded. But physical therapy did sit up on the chair with assistance. Looking at rehab.
[2024-10-06] MEDS: APIXABAN 2.5 MG TABLET PO SCH (15:06)
[2024-10-06 16:52] LABS: Glucose,Whole Blood 206 mg/dL (70-110)
--- NOTE | 2024-10-06 17:17 | P.PN ---
Subjective Progress Note Date: 10/06/24 This is a 79-year-old male with history of end-stage renal disease, on hemodialysis Thursday and Thursday the patient himself is a very poor historian, most of the information obtained was from his daughter at bedside. The last couple of weeks, patient has been coughing and at times passing out, he had almost a dozen episodes of cough induced syncope. And never smoked, he has no history of COPD, his chest x-ray and CT of the chest done on this admission showed moderate bilateral pleural effusions with associated atelectasis. Chest x-ray showed mild interstitial prominence. Patient had his dialysis today and has CT of the chest done after dialysis clearly showed evidence of moderate-si zed bilateral pleural effusions not clearly appreciated on the chest x-ray. Labs today showed negative screening for influenza A, influenza B, RSV and COVID-19. CBC was noted to be unremarkable. Hemoglobin is a bit low at 10 basic metabolic profile is normal BUN is 43 creatinine 5.31, BNP level is 2840. After reviewing the patient chart, apparently the patient was recently in the hospital from and he was discharged on diagnosed as having tracheobronchitis, pulmonary was not consulted on his last admission. However patient was discharged home on doxycycline at 100 mg p.o. twice daily. That did not seem to make any difference on his cough and did not make any difference on his cough induced syncope. Echocardiogram on his last admission showed no evidence of LV dysfunction, no evidence of significant valvular heart disease and there was no evidence of pulmonary hypertension. His ejection fraction was 55 to 60% The patient is seen today September 23, 2024 in follow-up on the regular medical floor. He is currently sitting up at the bedside having breakfast. Awake and alert in no acute distress. Maintaining good O2 saturations in the 90s on room air. He did receive hemodialysis yesterday with 2 L removed. White count 14.6. Hemoglobin 11.4. Platelets 309. Sodium 135. Potassium 4.4. Bicarb 25. BUN 39. Creatinine 4.2. Glucose 247. Procalcitonin negative at 0.21. He is currently on DuoNeb and elations, Solu-Medrol, antibiotics in the form of ceftr iaxone and azithromycin. The patient is seen today September 26, 2024 in follow-up on the selective care unit. He is currently resting in bed. Maintaining O2 saturations in the 90s on room air. Has been afebrile. Hemodynamically stable. Remains with a left- sided arm and leg drift. Follow-up CT scan of the brain revealed a 0.4 cm petechial hemorrhage within the left parietal infarct. Increasing edema in the right parietal infarct has effacement of the Clint. No midline shift or significant ventricle compression. Old occipital watershed infarcts bilaterally. Neurology is following closely. White count 10.2. Hemoglobin 11.5. Platelets 278. Sodium 136. Potassium 3.9. Bicarb 27. BUN 61. Creatinine 5.22. Glucose 140. He remains on a Cardizem drip at 5 mg/h. Heparin placed on hold. Continued on Keppra. Progress note dated September 27, 2024. 79-year-old male who is seen today in room 370. Currently, the patient is receiving D5W at 50 cc an hour. The patient is currently on room air. He did have hemodialysis today. 2 L of fluid was removed. He is resting comfortably in bed. No acute distress. No respiratory distress. Current labs include a white count 10.6, hemoglobin 10.6, hematocrit 31.1, and a platelet count of 267,000. Sodium 135, potassium 3.6, chlorides 99, CO2 27, anion gap 9, BUN 64, creatinine 5.63. Glucose is 90. Calcium is 8.1. The scan of the brain shows an overall similar examination with evolving right MCA territory infarct and trace petechial hemorrhage. No midline shift. Remote injuries to the bilateral frontal lobes and left temporal lobe with encephalomalacia. Progress note dated September 28, 2024. 79-year-old male seen in room 370. The patient is currently on room air. Saturations are 100%. The patient is receiving D5W at 50 cc an hour. The patient had hemodialysis yesterday. 2 L was removed. Currently, he is resting comfortably in no distress. Family members are in the room with the patient. Current labs include a white count of 10.8, hemoglobin 10.7, hematocrit 31.3, and a normal platelet count of 253,000. Sodium 131, potassium 3.4, chlorides 91, CO2 31, anion gap 9, BUN 35, and creatinine 4.35. Glucose is 170. Calcium is 8.3. Progress note dated September 29, 2024. 79-year-old male seen again in room 370. The patient is currently undergoing hemodialysis, with a goal of removal of 2 L. The patient is on room air. He is on a Cardizem drip at 15 mg an hour. He is getting D5W at 50 cc an hour. Cu rrent labs include a white count 9.6, hemoglobin 10.6, hematocrit 31.6, and a platelet count of 262,000. Sodium 129, potassium 3.5, chloride 94, CO2 26, BUN 43, creatinine 5.34. Glucose 123. Calcium 8.2. Progress note dated September 30, 2024. 79-year-old male seen in room 370. The patient is resting comfortably in bed. He is on room air. Saturations are 100%. The patient is getting D5W at 50 cc an hour. He is also on Cardizem drip at 5 mg an hour. Current labs include a white count 7.6, hemoglobin 10.5, hematocrit 30.9, and a platelet count of 263,000. Sodium 127, potassium 3.5, chlorides 91, CO2 28, BUN 24, creatinine 4.15. Glucose is 144. Calcium is 8.6. Progress note dated October 01, 2024. 79-year-old male seen in room 370. The patient is resting comfortably in bed. He is currently on room air. He is getting D5W at 50 cc an hour. He continues on Cardizem drip at 5 mg an hour. The plan is for hemodialysis today. Current labs include a white count 6.9, hemoglobin 11, hematocrit 32.4, and a platelet count of 2 94,000. Sodium 130, potassium 3.6, chloride 72, CO2 29, BUN 28, creatinine 5.07. Glucose is 158. Calcium 8.8. Doppler of the right upper extremity, reveals no DVT. Chest x-ray from yesterday shows some very mild interstitial edema. Progress note dated October 02, 2024. 79-year-old male seen today in room 370. He is currently on room air. The pa tient is getting D5W at 50 cc an hour. The patient is no longer on Cardizem. The patient is apparently scheduled to have a PEG tube placed by surgery today. Family members are in the room. The patient is in no distress. Current labs include a white count 7.6, hemoglobin 10.6, hematocrit 31.5, and a normal platelet count. Sodium 128, potassium 3.7, chloride 91, CO2 28, BUN 18, creatinine 4.07. Glucose 174. Calcium 8.7. On 10/03/2024, the patient is being seen for a follow-up. Patient is resting comfortably in bed. No significant shortness of breath. Is a bit lethargic. He is post acute/subacute CVA involving the right MCA territory, in addition to new onset atrial fibrillation with a controlled rate. He does have nonobstructive coronary artery disease, has a loop recorder implantation back in 2020 and the patient is incisional disease on hemodialysis 3 times a week and last hemodialysis was on 10/01/2024. Other comorbidities include hypertension, hyperlipidemia, CVA in the past and diabetes mellitus. Noted the patient had developed dysphagia and based on that the patient was given a PEG tube for enteral feeding and nutritional support. Resting comfortably in bed. The white cell count of 12 with a hemoglobin 10.4 and a platelet count of 309. BUN is 25 with a creatinine of 5.20 sodium levels at 126. Blood sugars at 122. The patient remains on aspirin 300 mg rectally. The patient is also on Coreg 25 mg p.o. twice a day, Levemir insulin 20 units nightly and NovoLog/scale coverage. The most recent CAT scan of the brain from this afternoon showed evolving right MCA territory infarct with trace petechial hemorrhage. No midline shift. Of the upper extremity shows no evidence of any DVT. The cardiac rhythm is atrial fibrillation. On 10/04/2024, the patient is being seen for a follow-up. Patient was started on enteral feeding for nutritional support. Tolerating diet reasonably well. No specific complaints. Resting comfortably in bed. Overall, feels quite tired. He remains n.p.o. as the patient receives enteral feeding for nutritional support. Remains on aspirin. Rest of the medications remain unchanged. No new onset focal neurological deficits for now. Remains quite weak on the left related to his recent CVA. The white cell count is at 7.8, hemoglobin is 10.4 and platelet count of 289. BUN is 36 with a creatinine of 5.8 and a sodium le vels at 126. The patient underwent hemodialysis today. CT scan of the brain from yesterday was noted and the CAT scan showed evolving right MCA territory infarct with trace petechial hemorrhage. No midline shift. Of the upper extremity shows no evidence of any DVT. The cardiac rhythm is atrial fibrillation. On 10/05/2024, the patient is being seen for a follow-up. Patient is postop day #3 following a PEG tube insertion. Neurologically unchanged. Continues to have left-sided weakness. PEG tube insertion was done as the patient was having dysphagia and aspiration following his CVA. The patient has no labs from today. Medications remain unchanged. The patient remains on aspirin 160 mg daily. The patient remains on Levemir insulin 20 units daily and NovoLog sliding scale coverage. The patient remains on Lipitor 80 mg p.o. daily. Pulse ox is in the order of 98% on room air oxygen. Neurology is on the case. Nephrology is also on the case as the patient has chronic renal failure/end-stage renal disease and he undergoes hemodialysis 3 times a week TTS. BP is under adequate control for now. Cardiac rhythm remains atrial fibrillation. Most recent CAT scan of the brain was noted from 10/03/2024 that showed some trace petechial hemorrhage within the evolving right MCA distribution infarct. On 10/06/2024, the patient's condition essentially is stable. The patient is able to move his left upper extremity and lower extremity and there is some limited neurologic progress over the past 24 hours. The patient is otherwise hemodynamically stable. Remains atrial fibrillation. Anticoagulation was started and the patient was started on anticoagulation with Eliquis 2.5 mg p.o. twice a day. Remains on Keppra. Remains on enteral feeding for nutritional support. The patient is on room air oxygen. He is lethargic. Able to go answer simple questions and communicate. Family is at the bedside. Hemodialysis to follow today. Objective - Vital Signs Vital signs: Vital Signs Temp 97.9 F 10/06/24 03:56 Pulse 74 10/06/24 08:52 Resp 17 10/06/24 03:56 BP 155/56 10/06/24 03:56 Pulse Ox 98 10/06/24 03:56 FiO2 60 09/26/24 16:00 Intake & Output 10/05/24 10/06/24 10/06/24 18:59 06:59 18:59 Intake Total 90 Balance 90 Weight 82.5 kg Intake: Tube Feeding 90 Other: Voiding Method Indwelling Catheter Indwelling Catheter - Exam No acute distress, oriented 3. Lethargic and weak HEENT examination is grossly unremarkable. Mucous membranes are moist. No oral lesions. Neck supple. Full range of motion. No adenopathy thyromegaly or neck vein distention. Cardiovascular examination reveals an irregular rhythm and rate. S1-S2 normal. No S3 or S4. No discernible murmur noted. Lungs reveal bibasilar crackles. No wheezes or rhonchi. Breath sounds are equal bilaterally. The patient is currently on room air. Abdomen soft bowel sounds are heard. No masses or tenderness. Extremities are intact. No cyanosis clubbing or edema. Skin is without rash or lesion. Neurologic examination reveals left-sided weakness. - Labs CBC & Chem 7: 10/04/24 07:14 10/04/24 07:14 Labs: Abnormal Lab Results - Last 24 Hours (Table) 10/05/24 10/05/24 10/06/24 Range/Units 11:57 18:38 00:04 POC Glucose (mg/dL) 187 H 197 H 122 H (70-110) mg/dL 10/06/24 Range/Units 06:24 POC Glucose (mg/dL) 176 H (70-110) mg/dL Assessment and Plan Plan: Ischemic stroke involving the right MCA territory predominantly on the right frontal lobe and insular cortex. Follow-up CT scan today revealed questionable petechial hemorrhage over the right frontal parietal. Patient remains on aspirin rectally 300 mg daily. Neurologist on the case and neurologically the patient is slightly improved with some limited motor function being established in the left upper and left lower extremity. Atrial fibrillation, with a controlled rate, no anticoagulants yet, and the patient has a petechial hemorrhage within the right MCA distribution/territory s troke. The patient was started on anticoagulation with Eliquis 2.5 mg p.o. twice a day Dysphagia secondary to CVA post PEG tube insertion on 10/02/2024, he is receiving enteral feeding via PEG tube. Bilateral pleural effusions/most likely secondary to chronic renal failure or diastolic congestive heart failure, patient had normal LV function based on his last echocardiogram. Benign essential hypertension. Dyslipidemia. History of CVA. Diabetes with diabetic peripheral neuropathy. History of seizures. End-stage renal disease, on hemodialysis [facility] Thursday Saturday schedule. Scheduled to undergo hemodialysis today. Plan: Patient currently on room air oxygen PEG tube was inserted on 10/02/2024 and the patient was started on enteral feeding for nutritional support Continue aspirin Started on anticoagulation with Eliquis 2.5 mg twice a day Continue Coreg 25 mg twice a day and the patient has a controlled rate Continue Keppra 500 mg IV every 12 hours Continue Lipitor 80 mg daily Levemir insulin 20 units nightly along with a sliding scale insulin coverage Hemodialysis per nephrology, the patient is being dialyzed TTS, hemodialysis to be performed today Will continue to follow
[2024-10-07 00:02] LABS: Glucose,Whole Blood 276 mg/dL (70-110)
[2024-10-07] MEDS: INSULIN ASPART (NovoLOG) 100 UNIT/ML VIAL SQ SCH (00:10)
[2024-10-07 06:00] LABS: Glucose,Whole Blood 221 mg/dL (70-110)
--- NOTE | 2024-10-07 10:54 | P.PN ---
Subjective Patient is seen for follow-up for end-stage renal disease. No significant complaints Status post hemodialysis yesterday with UF of 1 L. Patient is more awake today and he is communicating. Objective - Vital Signs Vital signs: Vital Signs Temp 98.3 F 10/07/24 09:28 Pulse 54 L 10/07/24 09:28 Resp 15 10/07/24 09:28 BP 126/56 10/07/24 09:28 Pulse Ox 99 10/07/24 09:28 FiO2 60 09/26/24 16:00 Intake & Output 10/06/24 10/07/24 10/07/24 18:59 06:59 18:59 Intake Total 1410 Output Total 1400 225 Balance 10 -225 Weight 82.5 kg 83 kg Intake: Tube Feeding 10 Hemodialysis 1400 Output: Urine 225 Hemodialysis 400 Hemodialysis Net Amount 1000 Other: Voiding Method Indwelling Catheter Indwelling Catheter Indwelling Catheter - Exam patient is awake, comfortable, no acute distress. Examination of the heart S1 and S2 Examination of the lungs bilateral breath sounds are heard decreased breath sounds at the bases Abdomen is soft nontender Examination of lower extremity shows no significant edema - Labs CBC & Chem 7: 10/04/24 07:14 10/04/24 07:14 Labs: Abnormal Lab Results - Last 24 Hours (Table) 10/06/24 10/06/24 10/07/24 Range/Units 11:34 16:50 00:00 POC Glucose (mg/dL) 205 H 206 H 276 H (70-110) mg/dL 10/07/24 Range/Units 05:57 POC Glucose (mg/dL) 221 H (70-110) mg/dL Assessment and Plan Assessment: 1. End-stage renal disease maintained on hemodialysis on Thursday schedule. 2. Pneumonia maintained on antibiotics. 3. Diabetes mellitus. 4. Hypertension with chronic kidney disease. Exacerbated by steroids. 5. Acute/Subacute CVA-status post PEG tube placement 6. A-fib with RVR status post Cardizem drip Plan: Hemodialysis on schedule Continue with tube feeding Discharge planning to rehab
[2024-10-07 11:35] LABS: Glucose,Whole Blood 255 mg/dL (70-110)
--- NOTE | 2024-10-07 12:03 | P.DS ---
Providers Date of admission: 09/26/24 08:33 Expected date of discharge: 10/07/24 Attending physician: Tadeo Dickerson Consults: 09/21/24 15:52 Consult Physician Routine Consulting Provider: Brit Stevens Consult Reason/Comments: ESRD Do you want consulting provider notified?: Yes 09/22/24 13:26 Consult Physician Routine Consulting Provider: Edmundo Hall Consult Reason/Comments: resp distress bronchitis Do you want consulting provider notified?: Yes 09/24/24 09:24 Consult Physician Routine Consulting Provider: Tabitha Bustillo Consult Reason/Comments: cva Do you want consulting provider notified?: Yes 09/24/24 14:22 Consult Physician Urgent Consulting Provider: Arnav Fischer Consult Reason/Comments: CVA, loop recorder interrogation, was on ?Eliquis in past Do you want consulting provider notified?: Yes Primary care physician: [facility] Course: Patient is a 79-year-old male with ESRD, presenting for syncope induced by cough. Patient is poor historian. He was recently admitted for similar symptoms on September 12 and subsequently discharged with doxycycline for treatment of tracheobronchitis for mucous plugging. Since this time patient has had persistent symptoms with sputum production. Denying fever, chills, shortness of breath, chest pain, palpitations at this time. Labs completed in emergency room significant for WBC 6.7, hemoglobin 10.0, sodium 132, potassium 5.0, bicarb 20, BUN 43, creatinine 5.31, glucose 260, A1c 7.3, ALP 146, proBNP 2840, viral respiratory panel is negative. EKG done in the ER independently interpreted showed sinus rhythm heart rate of 60, no ST segment elevation or depression seen, no T-wave inversions seen. Chest x-ray done independently interpreted in the ER showed hazy interstitial markings bilaterally 09/23/2024 Patient seen and examined at bedside. No acute events overnight. Will discontinue antibiotics and steroids. Today's labs significant for WBC 14.6, BUN 38, creatinine 4.2, glucose ranging from 416-209, procalcitonin negative, blood cultures pending with no growth thus far. 09/24/2024 Patient seen and examined at bedside. Overnight patient began having strokelike symptoms at around 4 AM as witnessed by in the room with new onset left- sided weakness, left-sided facial droop and slurred speech with difficulty swallowing. Code stroke was called. Initial CT head with no evidence of acute intracranial process, later MRI of brain with subacute/acute CVA involving right MCA predominantly right frontal lobe and insular cortex. Patient given 300 mg of aspirin rectally as could not tolerate oral swallowing. Neurology consulted. Dialysis today. Today's labs WBC 12.0, hemoglobin 11.3, sodium 133, BUN 78, creatinine 5.24, glucose 166. 09/25. Patient seen and examined. Patient is moving his left upper extremity more than yesterday, also lifting his left lower extremity. Family thinks that patient has improved compared to yesterday 09/26/24: Patient evaluated at bedside today. Patient's family mentioned that his strength is better but currently the patient is very tired as he was up all night coughing. Labs show hemoglobin 11.5, sodium 136, BUN 61, creatinine 5.22. Brain CT shows 0.4 cm petechial hemorrhage within the left parietal infarct may be present, increasing edema in the right parietal infarct as effacement of the sulk I with no midline shift or significant ventricle compression, old occipital watershed infarcts bilaterally. 09/27/24: Patient examined today. Dysphagia evaluation by SHIP SURVEYOR showed poor toleration of PO trials exhibiting severe coughing with 2 attempts, continue strict NPO. Labs today show hemoglobin 10.6, sodium 135, BUN 64, creatinine 5.63. EEG done yesterday shows abnormal routine EEG, background slowing with history of mild encephalopathy, no focal slowing/epileptiform discharge/seizure. Hemodialysis today. 09/28/24: Patient evaluated at bedside. Patient had hemodialysis yesterday, 2L was removed. Labs today show WBC 10.8, hemoglobin 10.7, sodium 131, potassium 3.4, bicarb 31, BUN 35, creatinine 4.35. Repeat CT Brain showed overall similar examination with evolving right MCA territory infarct and trace petechial hemorrhage, no midline shift, Remote injuries to bilateral frontal lobes and left temporal lobe with encephalomalacia. 09/29/24: Patient seen and examined. Hemodialysis today. Labs today show hemoglobin 10.6, sodium 129, BUN 43, creatinine 5.34. 09/30/24: Patient evaluated today. Vitals show BP is 153/69. Labs today show Hb 10.5, Na 127, BUN 24, creatinine 4.15. EKG done yesterday independently interpreted as Atrial fibrillation with Rapid ventricular response. Hemodialysis yesterday, 2L of fluid was removed. Patient underwent the videofluoroscopic swallow study today. Patient's family was counseled about the importance of PEG tube. 10/01/24: Patient examined at bedside. BP today is 155/72. The family mentioned that the patient's right arm is swollen. Pateint denies any pain on the right arm. Labs today show hemoglobin 11, sodium 130, BUN 28, creatinine 5.07. Chest x-ray shows mild bilateral interstitial edema. PT and OT recommends RAFA placement/24-7 care or rehab to maximize mobility efforts, improve functional status. 10/02. Patient seen and examined. Family at the bedside. Patient scheduled for PEG tube placement today October 03: Spoke to nurse. Resume PEG tube for medications and feeding if okay with surgery. at the bedside. Patient rather sleepy today. October 04: Patient more awake today. Tired. at the bedside. Helping with Polish interpretation. Per neurology repeat CT scan tomorrow. Then consider initiating blood thinners. Patient getting tube feeding at 40 cc an hour. NPO. October 05: Tolerating tube feeding. Spoke to the nurse not much residual. CT scan brain done today shows infarct in the right MCA territory. With mild petechial hemorrhage. No change compared to prior study. Also evidence of prior infarcts. Spoke with embedded case manager Justin. Hopefully patient can be dis charged tomorrow after decision about anticoagulation per neurology. Patient has paroxysmal atrial fibrillation. Patient's prognosis rather guarded. This evening had a three-way conversation with me on the phone Dr. Bustillo in the patient's room having been on the phone and patient's family including her daughter at the bedside. Pros and cons at length about putting the patient Eliquis in view of the CAT scan was discussed. Understanding this risk of bleeding with Eliquis in view of atrial fibrillation. Finally the daughter decided to continue with the Eliquis understanding the risk of bleeding. Aspirin will be discontinued. Advance care planning: This was discussed with patient's daughter. Patient's overall multiple medical problems were discussed including strokes of different area. Cognitive impairment. On dialysis. She wants the patient to be a DNR. Questions answered. Time spent about 25 minutes October 06: Patient remained tired lethargic. Patient's and son at the bedside. Lengthy discussion. They understand prognosis guarded. Tolerating PEG tube feeding. Spoke to social media designer Justin about disposition. Later this afternoon I was told that he actually he did get up with assistance to a chair. In did follow commands will probably qualify for rehab. Awaiting the same. As per discussion yesterday Eliquis has been started and aspirin being discontinue d. October 07: In bed. Tired. Will open eyes answer simple questions. Daughter at the bedside. Understand prognosis guarded. Has been restarted Eliquis. Will be transferred to [facility]. Dialysis to continue. Discussion and discharge planning more than 35 minutes Social history: No history of smoking or alcohol. Lives with his and daughter. Does use a walker. Daughter is the POA Physical examination: VITAL SIGNS: 98.3, 53, 15, 146 x 58, 100% room air GENERAL: L tired sleepy but arousable EYES: Pupils equal. Conjunctiva normal. HEENT: External appearance of nose and ears normal, oral cavity grossly normal. NECK: JVD not raised; masses not palpable. HEART: First and second heart sounds are normal; minimal edema. LUNGS: Respiratory rate normal, decreased breath sounds ABDOMEN: Soft, no tenderness no guarding rigidity, liver spleen not palpable, no masses palpable. PEG tube with feeding PSYCH: Will answer questions occasionally NEUROLOGICAL: Mild left-sided facial droop. Patient is able to move all his limbs. INVESTIGATIONS, reviewed in the clinical context: CT brain [October 05: Acute infarct with probable petechial hemorrhage in the rig ht frontal lobe, in the distribution of right MCA. Essentially no change compared to the prior study. Large remote infarct involving the left parietal lobe and the moderate remote infarct involving the right right parietal white matter. October 04: White count 7.8 hemoglobin 10.4 sodium 126 potassium 3.7 BUN 36 creatinine 5.82 October 03: White count 12 hemoglobin 10.4 platelets 379 sodium 126 potassium 3.5 BUN [address] brain [October 03] evolving right MCA territory infarct with trace petechial hemorrhage. Remote injuries to bilateral frontal lobes and left temporal lobe with encephalomalacia Venous Doppler right upper extremity: No DVT Barium swallow: Aspiration thin liquids and suspected with nectar thick liquids. Poor bolus transfer CT brain [September 27]: Evolving right MCA territory infarct. Encephalomalacia within bilateral high parietal lobes and left parieto-occipital region left temporal lobe or from previous infarct EEG suggestive of encephalopathy. No epileptiform activity Brain MRI [September 16] acute/subacute CVA involving the right MCA territory predominantly the right frontal lobe and insular cortex. Chronic changes Assessment/Plan: Patient is a 79-year-old male with ESRD(TTS), presenting for cough induced syncope. He has been admitted for respiratory distress. The patient then had a CODE STROKE and he was found to have an acute CVA due to new onset atrial fibrillation. Brain CT showed petechial hemorrhage. MBS study showed inconsistent swallow and high risk for aspiration, tube was placed. Tolerating diet. 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 Repeat CT scan did show some evolution. With petechial hemorrhage. Repeat CT scan today as above no changes. Eliquis started after discussion with daughter. Aspirin discontinued. y # Paroxysmal, new onset Atrial fibrillation, Rapid ventricular response initially, now in sinus rhythm MRI brain with subacute CVA involving right MCA predominantly right frontal lobe and insular cortex Loop recorder interrogation showed new onset atrial fibrillation Brain CT shows 0.4 cm petechial hemorrhage within the left parietal infarct may be present, increasing edema in right parietal infarct as effacement of the sulci with no midline shift or significant ventricle compression, old occipital watershed infarcts bilaterally EEG-, background slowing with history of mild encephalopathy, no focal slowing/epileptiform discharge/seizure Repeat CT Brain showed overall similar examination with evolving right MCA territory infarct and trace petechial hemorrhage, no midline shift. Remote injuries to bilateral frontal lobes and left temporal lobe with encephalomalacia Bubble study was inconclusive Neurology following, Eliquis started as per discussion with neurology and patient's daughter's choice. Coreg 25 mg twice daily -Acute dysphagia secondary to stroke: Strict n.p.o. Dysphagia evaluation by SHIP SURVEYOR showed poor toleration of PO trials exhibiting severe coughing with 2 attempts, continue strict NPO Videofluoroscopic swallow study shows aspiration with thin liquids and suspected with nectar thick liquids, poor bolus transfer PEG tube placed on October 02-tube feeding tolerated at goal #. Right upper extremity edema Duplex venous ultrasound negative for DVT # Bilateral pleural effusion secondary to chronic kidney disease and/or diastolic congestive heart failure. Pulmonary following. On hemodialysis # Hyponatremia, moderate Hemodialysis Claudia Thursday Saturday schedule Continue dialysis per nephrology # Diabetes mellitus, type II chronically on insulin Follow Accu-Cheks with scale. 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 Stevens On hemodialysis -Chronic gait dysfunction uses a walker at home -DNR: Discussed with patient's daughter and . Disposition: [facility] facility for rehab Labs: CBC, BMP weekly Plan - Discharge Summary Discharge Rx Participant: No New Discharge Prescriptions: New carvediloL [Coreg*] 25 mg PO BID-W/MEALS tab Ipratropium-Albuterol Nebulize [Duoneb 0.5 mg-3 mg/3 ml Soln] 3 ml INHALATION TID each Apixaban [Eliquis] 2.5 mg PO BID tab Atorvastatin [Lipitor] 80 mg PO HS tab INSULIN ASPART (NovoLOG) [NovoLOG (formulary)] 0 unit SQ 0000,0600,1200,1800 each Acetaminophen Tab [Tylenol] 650 mg PO Q4HR PRN tab PRN Reason: Mild Pain Or Fever > 100.5 Continue DULoxetine HCL [Cymbalta] 30 mg PO HS levETIRAcetam [Keppra] 500 mg PO BID Ergocalciferol (Vitamin D2) [Drisdol (50,000 Iu)] 1,250 mcg PO MO Vit B Comp No.3/Folic/C/Biotin [Catie-Loly Rx Tablet] 1 tab PO TUTHSA@0900,2100 Midodrine HCl [ProAmatine] 10 mg PO TID PRN PRN Reason: SBP below 140 Albuterol Inhaler [Ventolin Hfa Inhaler] 2 puff INHALATION RT-QID PRN PRN Reason: Shortness Of Breath Changed Insulin Glargine [Lantus Vial] 26 unit SQ HS #0 Discontinued Atorvastatin [Lipitor] 20 mg PO HS INSULIN ASPART (NovoLOG) [NovoLOG (formulary)] 10 unit SQ AC-BID@0900,1200 carvediloL [Coreg*] 12.5 mg PO BID Torsemide [Demadex] 20 mg PO DAILY #30 tab NIFEdipine XL [Procardia XL] 60 mg PO BID Isosorbide Mononitrate ER [Imdur] 120 mg PO DAILY INSULIN ASPART (NovoLOG) [NovoLOG (formulary)] 12 unit SQ AC-SUPPER Aspirin 162.5 mg PO DAILY Discharge Medication List DULoxetine HCL [Cymbalta] 30 mg PO HS 03/13/16 [History] levETIRAcetam [Keppra] 500 mg PO BID 12/11/20 [History] Ergocalciferol (Vitamin D2) [Drisdol (50,000 Iu)] 1,250 mcg PO MO 02/24/24 [History] Vit B Comp No.3/Folic/C/Biotin [Catie-Loly Rx Tablet] 1 tab PO TUTHSA@0900,2100 04/17/24 [History] Albuterol Inhaler [Ventolin Hfa Inhaler] 2 puff INHALATION RT-QID PRN 09/11/24 [History] Midodrine HCl [ProAmatine] 10 mg PO TID PRN 09/11/24 [History] Acetaminophen Tab [Tylenol] 650 mg PO Q4HR PRN tab 10/07/24 [Rx] Apixaban [Eliquis] 2.5 mg PO BID tab 10/07/24 [Rx] Atorvastatin [Lipitor] 80 mg PO HS tab 10/07/24 [Rx] INSULIN ASPART (NovoLOG) [NovoLOG (formulary)] 0 unit SQ 0000,0600,1200,1800 each 10/07/24 [Rx] Insulin Glargine [Lantus Vial] 26 unit SQ HS #0 10/07/24 [Rx] Ipratropium-Albuterol Nebulize [Duoneb 0.5 mg-3 mg/3 ml Soln] 3 ml INHALATION TID each 10/07/24 [Rx] carvediloL [Coreg*] 25 mg PO BID-W/MEALS tab 10/07/24 [Rx] Follow up Appointment(s)/Referral(s): Dennis Santana DO [Primary Care Provider] - 1-2 days [facility], [NON-STAFF] -
--- NOTE | 2024-10-07 12:15 | P.PN ---
Subjective Progress Note Date: 10/07/24 HISTORY OF PRESENT ILLNESS: This is a 79-year-old male with a past medical history significant for coronary artery disease, hypertension, hyperlipidemia, CVA, diabetes, and chronic kidney disease. Patient follows in the office with Dr. Fischer. We have been asked to see the patient in consultation for CVA and loop recorder interrogation. Patient examined at the bedside. Patient was hospitalized earlier this month for cough induced syncope. Patient was discharged home and presented back to the hospital with similar symptoms. While in the hospital he developed left-sided weakness and was found to be positive for CVA. Patient currently denies chest pain or pressure. Denies shortness of breath. The patient was previously prescribed Eliquis for unknown reason however he was not currently taking this. Family has denied any history of atrial fibrillation or PE/DVT. Patient is currently maintaining sinus mechanism. Loop recorder interrogation performed revealing episodes of atrial fibrillation. DIAGNOSTICS: - EKG reveals sinus mechanism with no signs of acute ischemia - Chest xray hazy interstitial markings seen bilaterally may relate to infectious/inflammatory process. - Laboratory data: WBC 10.2. Hemoglobin 12.0. Platelet count 298. Sodium 134. Potassium 4.1. BUN 49. Creatinine 4.27. - Current home cardiac medications include aspirin 162.5 mg daily, Lipitor 20 mg at night, Imdur 120 mg daily, midodrine 10 mg 3 times a day as needed, Procardia 60 mg twice a day, Demadex 20 mg daily, carvedilol 12.5 mg twice a day - Most recent echocardiogram obtained in August 2024 revealed ejection fraction 55 to 60% with no significant valvular disease - Cardiac catheterization history: 2008 revealing approximately 40%, mid LAD 50%, diagonal 50%, circumflex 50%, and nondominant RCA with no significant stenosis -Patient underwent Lexiscan stress test in March 2024 which was negative for ischemia 09/26/2024 Was seen and examined resting comfortably in bed. [place] any chest discomfort or shortness of breath. Continues to have issues with speech and swallowing. Facial droop noted. Awaiting swallow eval. Anticoagulation has not been initiated at this point. CT scan done this morning showed a 0.4 cm petechial hemorrhage within the left parietal infarct may be present, increasing edema in the right parietal infarct as effacement of the sulci, no midline shift or significant ventricle compression, old occipital watershed infarcts bilaterally. We are awaiting input from neurology in regards to anticoagulation. 09/27/2024 Patient was seen and examined resting comfortably in bed. He was seen by neurology yesterday and anticoagulation remains on hold due to moderate size stroke as well as questionable petechial hemorrhage. Plan for repeat CT of the head. 09/28/2024 Patient mated to atrial fibrillation RVR and was started on Cardizem drip. Patient's blood pressure was noticed to be fluctuating today. 09/29/24 Patient seen and examined. Repeat blood work reveals hemoglobin 10.6, BUN 43 creatinine 5.34, potassium 3.5 and sodium 129. Blood pressure 136/63, heart rate in the 60s, pulse ox 97 percent on room air. Telemetry remains atrial fibrillation running in the 70s. Patient is currently on IV Cardizem at 15 mg/h. Patient is quite sleepy today. We will plan to start patient on full anticoagulation once cleared by neurology. No plan for KARISHMA. 09/30/24 P unfortunately, patient failed swallow evaluation and family is considering tube feeding. atient seen and examined. He is scheduled for modified barium swallow today. Patient has been maintained on Cardizem drip as he is not taking any oral medications. 10/01/2024 Patient examined this morning at the bedside. Patient's family is present. Patient is sitting comfortably in bed. Telemetry reveals sinus mechanism. He has been evaluated by general surgery and is scheduled for EGD with PEG tube placement on 10/02/2023 10/02/2024 Patient examined this morning the bedside. His family is present. Patient is more awake today. No complaints of chest pain or shortness of breath. He complains of a headache this morning. Patient is scheduled for EGD with PEG tube placement today by general surgery. 10/03/2024 Patient examined this morning. Patient is lethargic at the time of examination. He underwent EGD with PEG tube placement yesterday. Vital signs are stable. Telemetry reveals sinus mechanism. 10/04/2024 Patient examined this morning at the bedside. Patient remains lethargic althoug h somewhat improved from yesterday. No complaints of chest pain or shortness of breath. Telemetry reveals sinus mechanism with a heart rate in the 50s. CT of the brain reveals evolving right MCA territory infarct with trace petechial hemorrhage. No midline shift. No evidence for new infarct. 10/05/2024 Patient examined this morning at the bedside. Patient without complaints of chest pain or shortness of breath. Telemetry reveals sinus mechanism. Patients family is at the bedside and states that he has not slept all night. Vital signs stable. 10/06/2024 Patient examined this morning at the bedside. Patient without complaints of chest pain or shortness of breath. Family states he is improved today and is getting closer to being back to his baseline. Telemetry reveals sinus mechanism. Vital signs are stable. 10/07/2024 He has still having some confusion. No wheezing on exam. He has been resumed on Eliquis. PHYSICAL EXAM: VITAL SIGNS: Reviewed. GENERAL: Well-developed in no acute distress. NECK: Supple. No JVD or thyromegaly LUNGS: Respirations even and unlabored. Lungs essentially clear to auscultation bilaterally. HEART: Regular rate and rhythm. S1 and S2 heard. EXTREMITIES: Left-sided weakness. Normal range of motion. No clubbing or cyanosis. Peripheral pulses intact. No lower extremity edema ASSESSMENT: Acute/subacute CVA involving right MCA territory New onset atrial fibrillation, currently rate controlled Recent diagnosis and hospitalization for tussive syncope Nonobstructive CAD, per cath 2008 History of loop recorder implantation, [employer], 2020 Chronic kidney disease on hemodialysis Hypertension Hyperlipidemia History of CVA Diabetes End-stage renal disease on hemodialysis PLAN: Continue telemetry monitoring Continue current cardiac medications He has been resumed on anticoagulation. Awaiting placement for rehab in [place]. Cardiology to sign off, please call with any questions or concerns. Follow-up in office with Dr. Meyers 1 to 2 weeks. Nurse practitioner note has been reviewed by physician. Signing provider agrees with the documented findings, assessment, and plan of care documented by PRODUCTION SCHEDULER as a scribe. Objective - Vital Signs Vital signs: Vital Signs Temp 98.3 F 10/07/24 09:28 Pulse 53 L 10/07/24 11:18 Resp 15 10/07/24 11:18 BP 146/58 10/07/24 11:18 Pulse Ox 100 10/07/24 11:18 FiO2 60 09/26/24 16:00 Intake & Output 10/06/24 10/07/24 10/07/24 18:59 06:59 18:59 Intake Total 1410 Output Total 1400 225 Balance 10 -225 Weight 82.5 kg 83 kg Intake: Tube Feeding 10 Hemodialysis 1400 Output: Urine 225 Hemodialysis 400 Hemodialysis Net Amount 1000 Other: Voiding Method Indwelling Catheter Indwelling Catheter Indwelling Catheter - Labs CBC & Chem 7: 10/04/24 07:14 10/04/24 07:14 Labs: Abnormal Lab Results - Last 24 Hours (Table) 10/06/24 10/07/24 10/07/24 Range/Units 16:50 00:00 05:57 POC Glucose (mg/dL) 206 H 276 H 221 H (70-110) mg/dL 10/07/24 Range/Units 11:34 POC Glucose (mg/dL) 255 H (70-110) mg/dL
--- NOTE | 2024-10-07 13:52 | P.PN ---
Progress Note - Text Progress Note Date: 10/07/24 Patient is a 79-year-old male with ESRD, presenting for syncope induced by cough. Patient is poor historian. He was recently admitted for similar symptoms on September 12 and subsequently discharged with doxycycline for treatment of tracheobronchitis for mucous plugging. Since this time patient has had persistent symptoms with sputum production. Denying fever, chills, shortness of breath, chest pain, palpitations at this time. Labs completed in emergency room significant for WBC 6.7, hemoglobin 10.0, sodium 132, potassium 5.0, bicarb 20, BUN 43, creatinine 5.31, glucose 260, A1c 7.3, ALP 146, proBNP 2840, viral respiratory panel is negative. EKG done in the ER independently interpreted showed sinus rhythm heart rate of 60, no ST segment elevation or depression seen, no T-wave inversions seen. Chest x-ray done independently interpreted in the ER showed hazy interstitial markings bilaterally 09/23/2024 Patient seen and examined at bedside. No acute events overnight. Will discontinue antibiotics and steroids. Today's labs significant for WBC 14.6, BUN 38, creatinine 4.2, glucose ranging from 416-209, procalcitonin negative, blood cultures pending with no growth thus far. 09/24/2024 Patient seen and examined at bedside. Overnight patient began having strokelike symptoms at around 4 AM as witnessed by in the room with new onset left- sided weakness, left-sided facial droop and slurred speech with difficulty swallowing. Code stroke was called. Initial CT head with no evidence of acute intracranial process, later MRI of brain with subacute/acute CVA involving right MCA predominantly right frontal lobe and insular cortex. Patient given 300 mg of aspirin rectally as could not tolerate oral swallowing. Neurology consulted. Dialysis today. Today's labs WBC 12.0, hemoglobin 11.3, sodium 133, BUN 78, creatinine 5.24, glucose 166. 09/25. Patient seen and examined. Patient is moving his left upper extremity more than yesterday, also lifting his left lower extremity. Family thinks that patient has improved compared to yesterday 09/26/24: Patient evaluated at bedside today. Patient's family mentioned that his strength is better but currently the patient is very tired as he was up all night coughing. Labs show hemoglobin 11.5, sodium 136, BUN 61, creatinine 5.22. Brain CT shows 0.4 cm petechial hemorrhage within the left parietal infarct may be present, increasing edema in the right parietal infarct as effacement of the sulk I with no midline shift or significant ventricle compression, old occipital watershed infarcts bilaterally. 09/27/24: Patient examined today. Dysphagia evaluation by TOBACCO BALER showed poor toleration of PO trials exhibiting severe coughing with 2 attempts, continue strict NPO. Labs today show hemoglobin 10.6, sodium 135, BUN 64, creatinine 5.63. EEG done yesterday shows abnormal routine EEG, background slowing with history of mild encephalopathy, no focal slowing/epileptiform discharge/seizure. Hemodialysis today. 09/28/24: Patient evaluated at bedside. Patient had hemodialysis yesterday, 2L was removed. Labs today show WBC 10.8, hemoglobin 10.7, sodium 131, potassium 3.4, bicarb 31, BUN 35, creatinine 4.35. Repeat CT Brain showed overall similar examination with evolving right MCA territory infarct and trace petechial hemorrhage, no midline shift, Remote injuries to bilateral frontal lobes and left temporal lobe with encephalomalacia. 09/29/24: Patient seen and examined. Hemodialysis today. Labs today show hemoglobin 10.6, sodium 129, BUN 43, creatinine 5.34. 09/30/24: Patient evaluated today. Vitals show BP is 153/69. Labs today show Hb 10.5, Na 127, BUN 24, creatinine 4.15. EKG done yesterday independently interpreted as Atrial fibrillation with Rapid ventricular response. Hemodialysis yesterday, 2L of fluid was removed. Patient underwent the videofluoroscopic swallow study today. Patient's family was counseled about the importance of PEG tube. 10/01/24: Patient examined at bedside. BP today is 155/72. The family mentioned that the patient's right arm is swollen. Pateint denies any pain on the right arm. Labs today show hemoglobin 11, sodium 130, BUN 28, creatinine 5.07. Chest x-ray shows mild bilateral interstitial edema. PT and OT recommends RAFA placement/24-7 care or rehab to maximize mobility efforts, improve functional status. 10/02. Patient seen and examined. Family at the bedside. Patient scheduled for PEG tube placement today October 03: Spoke to nurse. Resume PEG tube for medications and feeding if okay with surgery. at the bedside. Patient rather sleepy today. October 04: Patient more awake today. Tired. at the bedside. Helping with German interpretation. Per neurology repeat CT scan tomorrow. Then consider initiating blood thinners. Patient getting tube feeding at 40 cc an hour. NPO. October 05: Tolerating tube feeding. Spoke to the nurse not much residual. CT scan brain done today shows infarct in the right MCA territory. With mild petechial hemorrhage. No change compared to prior study. Also evidence of prior infarcts. Spoke with case management manager Justin. Hopefully patient can be discharged tomorrow after decision about anticoagulation per neurology. Patient has paroxysmal atrial fibrillation. Patient's prognosis rather guarded. This evening had a three-way conversation with me on the phone Dr. Bustillo in the patient's room having been on the phone and patient's family including her daughter at the bedside. Pros and cons at length about putting the patient Eliquis in view of the CAT scan was discussed. Understanding this risk of bleeding with Eliquis in view of atrial fibrillation. Finally the daughter decided to continue with the Eliquis understanding the risk of bleeding. Aspirin will be discontinued. Advance care planning: This was discussed with patient's daughter. Patient's overall multiple medical problems were discussed including strokes of different area. Cognitive impairment. On dialysis. She wants the patient to be a DNR. Questions answered. Time spent about 25 minutes October 06: Patient remained tired lethargic. Patient's and son at the bedside. Lengthy discussion. They understand prognosis guarded. Tolerating PEG tube feeding. Spoke to social media editor Justin about disposition. Later this afternoon I was told that he actually he did get up with assistance to a chair. In did follow commands will probably qualify for rehab. Awaiting the same. As per discussion yesterday Eliquis has been started and aspirin being discont inued. October 07: In bed. Tired. Will open eyes answer simple questions. Daughter at the bedside. Understand prognosis guarded. Has been restarted Eliquis. Will be transferred to [facility]. Dialysis to continue. Later this afternoon: Patient's other daughters were in the room. They have decided to proceed with hospice at home. Hospice is being called in. Patient was living at his daughter's house and now moved to his own house. Several questions were answered. Spoke with case management manager Justin. He will coordinate the rest. Active Medications Acetaminophen (Acetaminophen Tab 325 Mg Tab) 650 mg PO Q4HR PRN PRN Reason: Mild Pain or Fever > 100.5 Last Admin: 10/07/24 12:09 Dose: 650 mg Acetaminophen (Acetaminophen Suppository 650 Mg Supp) 650 mg RECTAL Q8HR PRN PRN Reason: Fever and/ or Pain Last Admin: 09/30/24 05:48 Dose: 650 mg Albuterol/Ipratropium (Ipratropium-Albuterol 3 Ml Neb) 3 ml INHALATION RT-Q2H PRN PRN Reason: Shortness Of Breath Or Wheezing Albuterol/Ipratropium (Ipratropium-Albuterol 3 Ml Neb) 3 ml INHALATION RT-QID [facility] Last Admin: 10/07/24 11:19 Dose: Not Given Apixaban (Apixaban 2.5 Mg Tablet) 2.5 mg PO BID [facility]; Protocol Last Admin: 10/07/24 09:15 Dose: 2.5 mg Atorvastatin Calcium (Atorvastatin 80 Mg Tab) 80 mg PO [facility] Last Admin: 10/06/24 22:02 Dose: 80 mg Carvedilol (Carvedilol 12.5 Mg Tab) 25 mg PO BID-W/MEALS [facility] Last Admin: 10/07/24 06:29 Dose: 25 mg Dextrose/Water (Dextrose 50% Syringe 50 Ml) 25 ml IVP PER PROTOCOL PRN; Protocol PRN Reason: Hypoglycemia Last Admin: 09/24/24 12:29 Dose: 25 ml Dextrose/Water (Dextrose 50% Syringe 50 Ml) 50 ml IVP PER PROTOCOL PRN; Protocol PRN Reason: Hypoglycemia Last Admin: 09/24/24 05:38 Dose: 50 ml Duloxetine HCl (Duloxetine Hcl 30 Mg Capsule.Dr) 30 mg PO [facility] Last Admin: 10/06/24 22:02 Dose: 30 mg Insulin Aspart (Insulin Aspart (Novolog) 100 Unit/Ml Vial) 0 unit SQ 0000,0600,1200,1800 [facility]; Protocol Last Admin: 10/07/24 11:40 Dose: 9 unit Insulin Detemir (Insulin Detemir (Levemir) 100 Unit/Ml Syr) 20 unit SQ [facility] Last Admin: 10/06/24 22:03 Dose: 20 unit Levetiracetam (Levetiracetam Iv 500 Mg/5 Ml Vial) 500 mg IVP Q12HR [facility] Last Admin: 10/07/24 09:15 Dose: 500 mg Multivit/Ca Carb/B Cmplx/FA/Prenat (Folic Acid-Vit B Complex-Vit C 1 Cap) 1 each PO TUTHSA@0900,2100 [facility] Last Admin: 10/06/24 22:02 Dose: Not Given Naloxone HCl (Naloxone 0.4 Mg/Ml 1 Ml Vial) 0.2 mg IVP Q2M PRN PRN Reason: Opioid Reversal Ondansetron HCl (Ondansetron 4 Mg/2 Ml Vial) 4 mg IVP Q6HR PRN PRN Reason: Nausea And Vomiting Last Admin: 09/24/24 00:40 Dose: 4 mg Social history: No history of smoking or alcohol. Lives with his and daughter. Does use a walker. Daughter is the POA Physical examination: VITAL SIGNS: 98.3, 53, 15, 146 x 58, 100% room air GENERAL: L tired sleepy but arousable EYES: Pupils equal. Conjunctiva normal. HEENT: External appearance of nose and ears normal, oral cavity grossly normal. NECK: JVD not raised; masses not palpable. HEART: First and second heart sounds are normal; minimal edema. LUNGS: Respiratory rate normal, decreased breath sounds ABDOMEN: Soft, no tenderness no guarding rigidity, liver spleen not palpable, no masses palpable. PEG tube with feeding PSYCH: Will answer questions occasionally NEUROLOGICAL: Mild left-sided facial droop. Patient is able to move all his limbs. INVESTIGATIONS, reviewed in the clinical context: CT brain [October 05: Acute infarct with probable petechial hemorrhage in the right frontal lobe, in the distribution of right MCA. Essentially no change compared to the prior study. Large remote infarct involving the left parietal lobe and the moderate remote infarct involving the right right parietal white matter. October 04: White count 7.8 hemoglobin 10.4 sodium 126 potassium 3.7 BUN 36 creatinine 5.82 October 03: White count 12 hemoglobin 10.4 platelets 379 sodium 126 potassium 3.5 BUN [address] brain [October 03] evolving right MCA territory infarct with trace petechial hemorrhage. Remote injuries to bilateral frontal lobes and left temporal lobe with encephalomalacia Venous Doppler right upper extremity: No DVT Barium swallow: Aspiration thin liquids and suspected with nectar thick liquids. Poor bolus transfer CT brain [September 27]: Evolving right MCA territory infarct. Encephalomalacia within bilateral high parietal lobes and left parieto-occipital region left temporal lobe or from previous infarct EEG suggestive of encephalopathy. No epileptiform activity Brain MRI [September 16] acute/subacute CVA involving the right MCA territory predominantly the right frontal lobe and insular cortex. Chronic changes Assessment/Plan: Patient is a 79-year-old male with ESRD(TTS), presenting for cough induced syncope. He has been admitted for respiratory distress. The patient then had a CODE STROKE and he was found to have an acute CVA due to new onset atrial fibrillation. Brain CT showed petechial hemorrhage. MBS study showed inconsistent swallow and high risk for aspiration, tube was placed. Tolerating diet. 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 Repeat CT scan did show some evolution. With petechial hemorrhage. Repeat CT scan today as above no changes. Eliquis started after discussion with daughter. Aspirin discontinued. y # Paroxysmal, new onset Atrial fibrillation, Rapid ventricular response initially, now in sinus rhythm MRI brain with subacute CVA involving right MCA predominantly right frontal lobe and insular cortex Loop recorder interrogation showed new onset atrial fibrillation Brain CT shows 0.4 cm petechial hemorrhage within the left parietal infarct may be present, increasing edema in right parietal infarct as effacement of the sulci with no midline shift or significant ventricle compression, old occipital watershed infarcts bilaterally EEG-, background slowing with history of mild encephalopathy, no focal slowing/epileptiform discharge/seizure Repeat CT Brain showed overall similar examination with evolving right MCA territory infarct and trace petechial hemorrhage, no midline shift. Remote injuries to bilateral frontal lobes and left temporal lobe with encephalomalacia Bubble study was inconclusive Neurology following, Eliquis started as per discussion with neurology and patient's daughter's choice. Coreg 25 mg twice daily -Acute dysphagia secondary to stroke: Strict n.p.o. Dysphagia evaluation by TOBACCO BALER showed poor toleration of PO trials exhibiting severe coughing with 2 attempts, continue strict NPO Videofluoroscopic swallow study shows aspiration with thin liquids and suspected with nectar thick liquids, poor bolus transfer PEG tube placed on October 02-tube feeding tolerated at goal #. Right upper extremity edema Duplex venous ultrasound negative for DVT # Bilateral pleural effusion secondary to chronic kidney disease and/or diastolic congestive heart failure. Pulmonary following. On hemodialysis # Hyponatremia, moderate Hemodialysis [facility] Thursday Saturday schedule Continue dialysis per nephrology # Diabetes mellitus, type II chronically on insulin Follow Accu-Cheks with scale. 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 Stevens On hemodialysis -Chronic gait dysfunction uses a walker at home -DNR: Discussed with patient's daughter and . Disposition: Plan now is for patient to go home with hospice. manager media relations Justin looking into home with hospice for tomorrow. [facility] coordinating. Advance care planning: Discussed with the several daughters at the bedside. and the eldest daughter's decision making/medical POA. Except [place] including feeding was discussed. Await input from hospice if feeding can be continued otherwise could use bolus feeding with a syringe. He also did stop dialysis therefore. Time spent for this about 25 minutes.
--- NOTE | 2024-10-07 15:27 | P.PN ---
Subjective Progress Note Date: 10/07/24 This is a 79-year-old male with history of end-stage renal disease, on hemodialysis Thursday and Thursday the patient himself is a very poor historian, most of the information obtained was from his daughter at bedside. The last couple of weeks, patient has been coughing and at times passing out, he had almost a dozen episodes of cough induced syncope. And never smoked, he has no history of COPD, his chest x-ray and CT of the chest done on this admission showed moderate bilateral pleural effusions with associated atelectasis. Chest x-ray showed mild interstitial prominence. Patient had his dialysis today and has CT of the chest done after dialysis clearly showed evidence of moderate-si zed bilateral pleural effusions not clearly appreciated on the chest x-ray. Labs today showed negative screening for influenza A, influenza B, RSV and COVID-19. CBC was noted to be unremarkable. Hemoglobin is a bit low at 10 basic metabolic profile is normal BUN is 43 creatinine 5.31, BNP level is 2840. After reviewing the patient chart, apparently the patient was recently in the hospital from and he was discharged on diagnosed as having tracheobronchitis, pulmonary was not consulted on his last admission. However patient was discharged home on doxycycline at 100 mg p.o. twice daily. That did not seem to make any difference on his cough and did not make any difference on his cough induced syncope. Echocardiogram on his last admission showed no evidence of LV dysfunction, no evidence of significant valvular heart disease and there was no evidence of pulmonary hypertension. His ejection fraction was 55 to 60% The patient is seen today September 23, 2024 in follow-up on the regular medical floor. He is currently sitting up at the bedside having breakfast. Awake and alert in no acute distress. Maintaining good O2 saturations in the 90s on room air. He did receive hemodialysis yesterday with 2 L removed. White count 14.6. Hemoglobin 11.4. Platelets 309. Sodium 135. Potassium 4.4. Bicarb 25. BUN 39. Creatinine 4.2. Glucose 247. Procalcitonin negative at 0.21. He is currently on DuoNeb and elations, Solu-Medrol, antibiotics in the form of ceftr iaxone and azithromycin. The patient is seen today September 26, 2024 in follow-up on the selective care unit. He is currently resting in bed. Maintaining O2 saturations in the 90s on room air. Has been afebrile. Hemodynamically stable. Remains with a left- sided arm and leg drift. Follow-up CT scan of the brain revealed a 0.4 cm petechial hemorrhage within the left parietal infarct. Increasing edema in the right parietal infarct has effacement of the [place]. No midline shift or significant ventricle compression. Old occipital watershed infarcts bilaterally. Neurology is following closely. White count 10.2. Hemoglobin 11.5. Platelets 278. Sodium 136. Potassium 3.9. Bicarb 27. BUN 61. Creatinine 5.22. Glucose 140. He remains on a Cardizem drip at 5 mg/h. Heparin placed on hold. Continued on Keppra. Progress note dated September 27, 2024. 79-year-old male who is seen today in room 370. Currently, the patient is receiving D5W at 50 cc an hour. The patient is currently on room air. He did have hemodialysis today. 2 L of fluid was removed. He is resting comfortably in bed. No acute distress. No respiratory distress. Current labs include a white count 10.6, hemoglobin 10.6, hematocrit 31.1, and a platelet count of 267,000. Sodium 135, potassium 3.6, chlorides 99, CO2 27, anion gap 9, BUN 64, creatinine 5.63. Glucose is 90. Calcium is 8.1. The scan of the brain shows an overall similar examination with evolving right MCA territory infarct and trace petechial hemorrhage. No midline shift. Remote injuries to the bilateral frontal lobes and left temporal lobe with encephalomalacia. Progress note dated September 28, 2024. 79-year-old male seen in room 370. The patient is currently on room air. Saturations are 100%. The patient is receiving D5W at 50 cc an hour. The patient had hemodialysis yesterday. 2 L was removed. Currently, he is resting comfortably in no distress. Family members are in the room with the patient. Current labs include a white count of 10.8, hemoglobin 10.7, hematocrit 31.3, and a normal platelet count of 253,000. Sodium 131, potassium 3.4, chlorides 91, CO2 31, anion gap 9, BUN 35, and creatinine 4.35. Glucose is 170. Calcium is 8.3. Progress note dated September 29, 2024. 79-year-old male seen again in room 370. The patient is currently undergoing hemodialysis, with a goal of removal of 2 L. The patient is on room air. He is on a Cardizem drip at 15 mg an hour. He is getting D5W at 50 cc an hour. Cu rrent labs include a white count 9.6, hemoglobin 10.6, hematocrit 31.6, and a platelet count of 262,000. Sodium 129, potassium 3.5, chloride 94, CO2 26, BUN 43, creatinine 5.34. Glucose 123. Calcium 8.2. Progress note dated September 30, 2024. 79-year-old male seen in room 370. The patient is resting comfortably in bed. He is on room air. Saturations are 100%. The patient is getting D5W at 50 cc an hour. He is also on Cardizem drip at 5 mg an hour. Current labs include a white count 7.6, hemoglobin 10.5, hematocrit 30.9, and a platelet count of 263,000. Sodium 127, potassium 3.5, chlorides 91, CO2 28, BUN 24, creatinine 4.15. Glucose is 144. Calcium is 8.6. Progress note dated October 01, 2024. 79-year-old male seen in room 370. The patient is resting comfortably in bed. He is currently on room air. He is getting D5W at 50 cc an hour. He continues on Cardizem drip at 5 mg an hour. The plan is for hemodialysis today. Current labs include a white count 6.9, hemoglobin 11, hematocrit 32.4, and a platelet count of 2 94,000. Sodium 130, potassium 3.6, chloride 72, CO2 29, BUN 28, creatinine 5.07. Glucose is 158. Calcium 8.8. Doppler of the right upper extremity, reveals no DVT. Chest x-ray from yesterday shows some very mild interstitial edema. Progress note dated October 02, 2024. 79-year-old male seen today in room 370. He is currently on room air. The pa tient is getting D5W at 50 cc an hour. The patient is no longer on Cardizem. The patient is apparently scheduled to have a PEG tube placed by surgery today. Family members are in the room. The patient is in no distress. Current labs include a white count 7.6, hemoglobin 10.6, hematocrit 31.5, and a normal platelet count. Sodium 128, potassium 3.7, chloride 91, CO2 28, BUN 18, creatinine 4.07. Glucose 174. Calcium 8.7. On 10/03/2024, the patient is being seen for a follow-up. Patient is resting comfortably in bed. No significant shortness of breath. Is a bit lethargic. He is post acute/subacute CVA involving the right MCA territory, in addition to new onset atrial fibrillation with a controlled rate. He does have nonobstructive coronary artery disease, has a loop recorder implantation back in 2020 and the patient is incisional disease on hemodialysis 3 times a week and last hemodialysis was on 10/01/2024. Other comorbidities include hypertension, hyperlipidemia, CVA in the past and diabetes mellitus. Noted the patient had developed dysphagia and based on that the patient was given a PEG tube for enteral feeding and nutritional support. Resting comfortably in bed. The white cell count of 12 with a hemoglobin 10.4 and a platelet count of 309. BUN is 25 with a creatinine of 5.20 sodium levels at 126. Blood sugars at 122. The patient remains on aspirin 300 mg rectally. The patient is also on Coreg 25 mg p.o. twice a day, Levemir insulin 20 units nightly and NovoLog/scale coverage. The most recent CAT scan of the brain from this afternoon showed evolving right MCA territory infarct with trace petechial hemorrhage. No midline shift. Of the upper extremity shows no evidence of any DVT. The cardiac rhythm is atrial fibrillation. On 10/04/2024, the patient is being seen for a follow-up. Patient was started on enteral feeding for nutritional support. Tolerating diet reasonably well. No specific complaints. Resting comfortably in bed. Overall, feels quite tired. He remains n.p.o. as the patient receives enteral feeding for nutritional support. Remains on aspirin. Rest of the medications remain unchanged. No new onset focal neurological deficits for now. Remains quite weak on the left related to his recent CVA. The white cell count is at 7.8, hemoglobin is 10.4 and platelet count of 289. BUN is 36 with a creatinine of 5.8 and a sodium le vels at 126. The patient underwent hemodialysis today. CT scan of the brain from yesterday was noted and the CAT scan showed evolving right MCA territory infarct with trace petechial hemorrhage. No midline shift. Of the upper extremity shows no evidence of any DVT. The cardiac rhythm is atrial fibrillation. On 10/05/2024, the patient is being seen for a follow-up. Patient is postop day #3 following a PEG tube insertion. Neurologically unchanged. Continues to have left-sided weakness. PEG tube insertion was done as the patient was having dysphagia and aspiration following his CVA. The patient has no labs from today. Medications remain unchanged. The patient remains on aspirin 160 mg daily. The patient remains on Levemir insulin 20 units daily and NovoLog sliding scale coverage. The patient remains on Lipitor 80 mg p.o. daily. Pulse ox is in the order of 98% on room air oxygen. Neurology is on the case. Nephrology is also on the case as the patient has chronic renal failure/end-stage renal disease and he undergoes hemodialysis 3 times a week TTS. BP is under adequate control for now. Cardiac rhythm remains atrial fibrillation. Most recent CAT scan of the brain was noted from 10/03/2024 that showed some trace petechial hemorrhage within the evolving right MCA distribution infarct. On 10/06/2024, the patient's condition essentially is stable. The patient is able to move his left upper extremity and lower extremity and there is some limited neurologic progress over the past 24 hours. The patient is otherwise hemodynamically stable. Remains atrial fibrillation. Anticoagulation was started and the patient was started on anticoagulation with Eliquis 2.5 mg p.o. twice a day. Remains on Keppra. Remains on enteral feeding for nutritional support. The patient is on room air oxygen. He is lethargic. Able to go answer simple questions and communicate. Family is at the bedside. Hemodialysis to follow today. On 10/07/2024, the patient is being seen for a follow-up. Resting comfortably in bed. Continues to have some improvement in the motor function left upper and left lower extremity. Started on anticoagulation yesterday and the patient is currently on Eliquis 2.5 mg twice a day. No new onset neurological deficits. He is also receiving enteral feeding for nutritional support. Afebrile. No new labs are available from today. The patient remains on room air oxygen. Remains atrial fibrillation. No other significant events overnight. Objective - Vital Signs Vital signs: Vital Signs Temp 98.3 F 10/07/24 09:28 Pulse 54 L 10/07/24 09:28 Resp 15 10/07/24 09:28 BP 126/56 10/07/24 09:28 Pulse Ox 99 10/07/24 09:28 FiO2 60 09/26/24 16:00 Intake & Output 10/06/24 10/07/24 10/07/24 18:59 06:59 18:59 Intake Total 1410 Output Total 1400 225 Balance 10 -225 Weight 82.5 kg 83 kg Intake: Tube Feeding 10 Hemodialysis 1400 Output: Urine 225 Hemodialysis 400 Hemodialysis Net Amount 1000 Other: Voiding Method Indwelling Catheter Indwelling Catheter Indwelling Catheter - Exam No acute distress, oriented 3. Lethargic and weak HEENT examination is grossly unremarkable. Mucous membranes are moist. No oral lesions. Neck supple. Full range of motion. No adenopathy thyromegaly or neck vein distention. Cardiovascular examination reveals an irregular rhythm and rate. S1-S2 normal. No S3 or S4. No discernible murmur noted. Lungs reveal bibasilar crackles. No wheezes or rhonchi. Breath sounds are equal bilaterally. The patient is currently on room air. Abdomen soft bowel sounds are heard. No masses or tenderness. Extremities are intact. No cyanosis clubbing or edema. Skin is without rash or lesion. Neurologic examination reveals left-sided weakness. - Labs CBC & Chem 7: 10/04/24 07:14 10/04/24 07:14 Labs: Abnormal Lab Results - Last 24 Hours (Table) 10/06/24 10/06/24 10/07/24 Range/Units 11:34 16:50 00:00 POC Glucose (mg/dL) 205 H 206 H 276 H (70-110) mg/dL 10/07/24 Range/Units 05:57 POC Glucose (mg/dL) 221 H (70-110) mg/dL Assessment and Plan Plan: Ischemic stroke involving the right MCA territory predominantly on the right frontal lobe and insular cortex. Follow-up CT scan today revealed questionable petechial hemorrhage over the right frontal parietal. Patient remains on aspirin rectally 300 mg daily. Neurologist on the case and neurologically the patient is slightly improved with some limited motor function being established in the left upper and left lower extremity. Atrial fibrillation, with a controlled rate, no anticoagulants yet, and the patient has a petechial hemorrhage within the right MCA distribution/territory stroke. The patient was started on anticoagulation with Eliquis 2.5 mg p.o. twice a day Dysphagia secondary to CVA post PEG tube insertion on 10/02/2024, he is receiving enteral feeding via PEG tube. Bilateral pleural effusions/most likely secondary to chronic renal failure or diastolic congestive heart failure, patient had normal LV function based on his last echocardiogram. Benign essential hypertension. Dyslipidemia. History of CVA. Diabetes with diabetic peripheral neuropathy. History of seizures. End-stage renal disease, on hemodialysis Thursday schedule. Scheduled to undergo hemodialysis today. Plan: Clinically stable Limited improvement in motor function on the left side was noted Patient currently on room air oxygen PEG tube was inserted on 10/02/2024 and the patient was started on enteral feeding for nutritional support Continue aspirin anticoagulation with Eliquis 2.5 mg twice a day Continue Coreg 25 mg twice a day and the patient has a controlled rate Continue Keppra 500 mg IV every 12 hours Continue Lipitor 80 mg daily Levemir insulin 20 units nightly along with a sliding scale insulin coverage Hemodialysis per nephrology, the patient is being dialyzed TTS, hemodialysis was performed yesterday Will continue to follow
[2024-10-07 16:33] LABS: Glucose,Whole Blood 162 mg/dL (70-110)
[2024-10-07 23:54] LABS: Glucose,Whole Blood 266 mg/dL (70-110)
[2024-10-08 06:10] LABS: Glucose,Whole Blood 270 mg/dL (70-110)
--- NOTE | 2024-10-08 11:30 | P.PN ---
Subjective Patient is seen for follow-up for end-stage renal disease. No significant complaints Family is present at bedside. They have decided to proceed with hospice care. We will hold hemodialysis today. Objective - Vital Signs Vital signs: Vital Signs Temp 98.4 F 10/08/24 08:49 Pulse 60 10/08/24 09:04 Resp 14 10/08/24 08:49 BP 135/53 10/08/24 08:49 Pulse Ox 99 10/08/24 08:50 FiO2 60 09/26/24 16:00 Intake & Output 10/07/24 10/08/24 10/08/24 18:59 06:59 18:59 Intake Total 60 Balance 60 Weight 83.5 kg Intake: IV 10 Invasive Line 8 10 Tube Feeding 50 Other: Voiding Method Indwelling Catheter Indwelling Catheter Indwelling Catheter - Exam patient is awake, comfortable, no acute distress. Examination of the heart S1 and S2 Examination of the lungs bilateral breath sounds are heard decreased breath sounds at the bases Abdomen is soft nontender Examination of lower extremity shows no significant edema - Labs CBC & Chem 7: 10/04/24 07:14 10/04/24 07:14 Labs: Abnormal Lab Results - Last 24 Hours (Table) 10/07/24 10/07/24 10/07/24 Range/Units 11:34 16:32 23:51 POC Glucose (mg/dL) 255 H 162 H 266 H (70-110) mg/dL 10/08/24 Range/Units 06:09 POC Glucose (mg/dL) 270 H (70-110) mg/dL Assessment and Plan Assessment: 1. End-stage renal disease maintained on hemodialysis on Thursday schedule. 2. Pneumonia maintained on antibiotics. 3. Diabetes mellitus. 4. Hypertension with chronic kidney disease. Exacerbated by steroids. 5. Acute/Subacute CVA-status post PEG tube placement 6. A-fib with RVR status post Cardizem drip Plan: Family has decided to proceed with hospice care. We will hold off on dialysis
[2024-10-08 11:44] LABS: Glucose,Whole Blood 230 mg/dL (70-110)
--- NOTE | 2024-10-08 12:35 | P.PN ---
Subjective Progress Note Date: 10/08/24 This is a 79-year-old male with history of end-stage renal disease, on hemodialysis Thursday and Thursday the patient himself is a very poor historian, most of the information obtained was from his daughter at bedside. The last couple of weeks, patient has been coughing and at times passing out, he had almost a dozen episodes of cough induced syncope. And never smoked, he has no history of COPD, his chest x-ray and CT of the chest done on this admission showed moderate bilateral pleural effusions with associated atelectasis. Chest x-ray showed mild interstitial prominence. Patient had his dialysis today and has CT of the chest done after dialysis clearly showed evidence of moderate-si zed bilateral pleural effusions not clearly appreciated on the chest x-ray. Labs today showed negative screening for influenza A, influenza B, RSV and COVID-19. CBC was noted to be unremarkable. Hemoglobin is a bit low at 10 basic metabolic profile is normal BUN is 43 creatinine 5.31, BNP level is 2840. After reviewing the patient chart, apparently the patient was recently in the hospital from and he was discharged on diagnosed as having tracheobronchitis, pulmonary was not consulted on his last admission. However patient was discharged home on doxycycline at 100 mg p.o. twice daily. That did not seem to make any difference on his cough and did not make any difference on his cough induced syncope. Echocardiogram on his last admission showed no evidence of LV dysfunction, no evidence of significant valvular heart disease and there was no evidence of pulmonary hypertension. His ejection fraction was 55 to 60% The patient is seen today September 23, 2024 in follow-up on the regular medical floor. He is currently sitting up at the bedside having breakfast. Awake and alert in no acute distress. Maintaining good O2 saturations in the 90s on room air. He did receive hemodialysis yesterday with 2 L removed. White count 14.6. Hemoglobin 11.4. Platelets 309. Sodium 135. Potassium 4.4. Bicarb 25. BUN 39. Creatinine 4.2. Glucose 247. Procalcitonin negative at 0.21. He is currently on DuoNeb and elations, Solu-Medrol, antibiotics in the form of ceftr iaxone and azithromycin. The patient is seen today September 26, 2024 in follow-up on the selective care unit. He is currently resting in bed. Maintaining O2 saturations in the 90s on room air. Has been afebrile. Hemodynamically stable. Remains with a left- sided arm and leg drift. Follow-up CT scan of the brain revealed a 0.4 cm petechial hemorrhage within the left parietal infarct. Increasing edema in the right parietal infarct has effacement of the Clint. No midline shift or significant ventricle compression. Old occipital watershed infarcts bilaterally. Neurology is following closely. White count 10.2. Hemoglobin 11.5. Platelets 278. Sodium 136. Potassium 3.9. Bicarb 27. BUN 61. Creatinine 5.22. Glucose 140. He remains on a Cardizem drip at 5 mg/h. Heparin placed on hold. Continued on Keppra. Progress note dated September 27, 2024. 79-year-old male who is seen today in room 370. Currently, the patient is receiving D5W at 50 cc an hour. The patient is currently on room air. He did have hemodialysis today. 2 L of fluid was removed. He is resting comfortably in bed. No acute distress. No respiratory distress. Current labs include a white count 10.6, hemoglobin 10.6, hematocrit 31.1, and a platelet count of 267,000. Sodium 135, potassium 3.6, chlorides 99, CO2 27, anion gap 9, BUN 64, creatinine 5.63. Glucose is 90. Calcium is 8.1. The scan of the brain shows an overall similar examination with evolving right MCA territory infarct and trace petechial hemorrhage. No midline shift. Remote injuries to the bilateral frontal lobes and left temporal lobe with encephalomalacia. Progress note dated September 28, 2024. 79-year-old male seen in room 370. The patient is currently on room air. Saturations are 100%. The patient is receiving D5W at 50 cc an hour. The patient had hemodialysis yesterday. 2 L was removed. Currently, he is resting comfortably in no distress. Family members are in the room with the patient. Current labs include a white count of 10.8, hemoglobin 10.7, hematocrit 31.3, and a normal platelet count of 253,000. Sodium 131, potassium 3.4, chlorides 91, CO2 31, anion gap 9, BUN 35, and creatinine 4.35. Glucose is 170. Calcium is 8.3. Progress note dated September 29, 2024. 79-year-old male seen again in room 370. The patient is currently undergoing hemodialysis, with a goal of removal of 2 L. The patient is on room air. He is on a Cardizem drip at 15 mg an hour. He is getting D5W at 50 cc an hour. Cu rrent labs include a white count 9.6, hemoglobin 10.6, hematocrit 31.6, and a platelet count of 262,000. Sodium 129, potassium 3.5, chloride 94, CO2 26, BUN 43, creatinine 5.34. Glucose 123. Calcium 8.2. Progress note dated September 30, 2024. 79-year-old male seen in room 370. The patient is resting comfortably in bed. He is on room air. Saturations are 100%. The patient is getting D5W at 50 cc an hour. He is also on Cardizem drip at 5 mg an hour. Current labs include a white count 7.6, hemoglobin 10.5, hematocrit 30.9, and a platelet count of 263,000. Sodium 127, potassium 3.5, chlorides 91, CO2 28, BUN 24, creatinine 4.15. Glucose is 144. Calcium is 8.6. Progress note dated October 01, 2024. 79-year-old male seen in room 370. The patient is resting comfortably in bed. He is currently on room air. He is getting D5W at 50 cc an hour. He continues on Cardizem drip at 5 mg an hour. The plan is for hemodialysis today. Current labs include a white count 6.9, hemoglobin 11, hematocrit 32.4, and a platelet count of 2 94,000. Sodium 130, potassium 3.6, chloride 72, CO2 29, BUN 28, creatinine 5.07. Glucose is 158. Calcium 8.8. Doppler of the right upper extremity, reveals no DVT. Chest x-ray from yesterday shows some very mild interstitial edema. Progress note dated October 02, 2024. 79-year-old male seen today in room 370. He is currently on room air. The pa tient is getting D5W at 50 cc an hour. The patient is no longer on Cardizem. The patient is apparently scheduled to have a PEG tube placed by surgery today. Family members are in the room. The patient is in no distress. Current labs include a white count 7.6, hemoglobin 10.6, hematocrit 31.5, and a normal platelet count. Sodium 128, potassium 3.7, chloride 91, CO2 28, BUN 18, creatinine 4.07. Glucose 174. Calcium 8.7. On 10/03/2024, the patient is being seen for a follow-up. Patient is resting comfortably in bed. No significant shortness of breath. Is a bit lethargic. He is post acute/subacute CVA involving the right MCA territory, in addition to new onset atrial fibrillation with a controlled rate. He does have nonobstructive coronary artery disease, has a loop recorder implantation back in 2020 and the patient is incisional disease on hemodialysis 3 times a week and last hemodialysis was on 10/01/2024. Other comorbidities include hypertension, hyperlipidemia, CVA in the past and diabetes mellitus. Noted the patient had developed dysphagia and based on that the patient was given a PEG tube for enteral feeding and nutritional support. Resting comfortably in bed. The white cell count of 12 with a hemoglobin 10.4 and a platelet count of 309. BUN is 25 with a creatinine of 5.20 sodium levels at 126. Blood sugars at 122. The patient remains on aspirin 300 mg rectally. The patient is also on Coreg 25 mg p.o. twice a day, Levemir insulin 20 units nightly and NovoLog/scale coverage. The most recent CAT scan of the brain from this afternoon showed evolving right MCA territory infarct with trace petechial hemorrhage. No midline shift. Of the upper extremity shows no evidence of any DVT. The cardiac rhythm is atrial fibrillation. On 10/04/2024, the patient is being seen for a follow-up. Patient was started on enteral feeding for nutritional support. Tolerating diet reasonably well. No specific complaints. Resting comfortably in bed. Overall, feels quite tired. He remains n.p.o. as the patient receives enteral feeding for nutritional support. Remains on aspirin. Rest of the medications remain unchanged. No new onset focal neurological deficits for now. Remains quite weak on the left related to his recent CVA. The white cell count is at 7.8, hemoglobin is 10.4 and platelet count of 289. BUN is 36 with a creatinine of 5.8 and a sodium le vels at 126. The patient underwent hemodialysis today. CT scan of the brain from yesterday was noted and the CAT scan showed evolving right MCA territory infarct with trace petechial hemorrhage. No midline shift. Of the upper extremity shows no evidence of any DVT. The cardiac rhythm is atrial fibrillation. On 10/05/2024, the patient is being seen for a follow-up. Patient is postop day #3 following a PEG tube insertion. Neurologically unchanged. Continues to have left-sided weakness. PEG tube insertion was done as the patient was having dysphagia and aspiration following his CVA. The patient has no labs from today. Medications remain unchanged. The patient remains on aspirin 160 mg daily. The patient remains on Levemir insulin 20 units daily and NovoLog sliding scale coverage. The patient remains on Lipitor 80 mg p.o. daily. Pulse ox is in the order of 98% on room air oxygen. Neurology is on the case. Nephrology is also on the case as the patient has chronic renal failure/end-stage renal disease and he undergoes hemodialysis 3 times a week TTS. BP is under adequate control for now. Cardiac rhythm remains atrial fibrillation. Most recent CAT scan of the brain was noted from 10/03/2024 that showed some trace petechial hemorrhage within the evolving right MCA distribution infarct. On 10/06/2024, the patient's condition essentially is stable. The patient is able to move his left upper extremity and lower extremity and there is some limited neurologic progress over the past 24 hours. The patient is otherwise hemodynamically stable. Remains atrial fibrillation. Anticoagulation was started and the patient was started on anticoagulation with Eliquis 2.5 mg p.o. twice a day. Remains on Keppra. Remains on enteral feeding for nutritional support. The patient is on room air oxygen. He is lethargic. Able to go answer simple questions and communicate. Family is at the bedside. Hemodialysis to follow today. On 10/07/2024, the patient is being seen for a follow-up. Resting comfortably in bed. Continues to have some improvement in the motor function left upper and left lower extremity. Started on anticoagulation yesterday and the patient is currently on Eliquis 2.5 mg twice a day. No new onset neurological deficits. He is also receiving enteral feeding for nutritional support. Afebrile. No new labs are available from today. The patient remains on room air oxygen. Remains atrial fibrillation. No other significant events overnight. On 10/08/2024, patient is being seen for a follow-up. Patient is stable. No specific complaints. Family is at bedside and the patient's family has decided to proceed with hospice care. Based on that, hemodialysis was held today. No respiratory difficulties and the patient remains on room air oxygen. Objective - Vital Signs Vital signs: Vital Signs Temp 98.4 F 10/08/24 08:49 Pulse 60 10/08/24 09:04 Resp 14 10/08/24 08:49 BP 135/53 10/08/24 08:49 Pulse Ox 99 10/08/24 08:50 FiO2 60 09/26/24 16:00 Intake & Output 10/07/24 10/08/24 10/08/24 18:59 06:59 18:59 Intake Total 10 Balance 10 Weight 83.5 kg Intake: IV 10 Invasive Line 8 10 Other: Voiding Method Indwelling Catheter Indwelling Catheter - Exam No acute distress, oriented 3. Lethargic and weak HEENT examination is grossly unremarkable. Mucous membranes are moist. No oral lesions. Neck supple. Full range of motion. No adenopathy thyromegaly or neck vein distention. Cardiovascular examination reveals an irregular rhythm and rate. S1-S2 normal. No S3 or S4. No discernible murmur noted. Lungs reveal bibasilar crackles. No wheezes or rhonchi. Breath sounds are equal bilaterally. The patient is currently on room air. Abdomen soft bowel sounds are heard. No masses or tenderness. Extremities are intact. No cyanosis clubbing or edema. Skin is without rash or lesion. Neurologic examination reveals left-sided weakness. - Labs CBC & Chem 7: 10/04/24 07:14 10/04/24 07:14 Labs: Abnormal Lab Results - Last 24 Hours (Table) 10/07/24 10/07/24 10/07/24 Range/Units 11:34 16:32 23:51 POC Glucose (mg/dL) 255 H 162 H 266 H (70-110) mg/dL 10/08/24 Range/Units 06:09 POC Glucose (mg/dL) 270 H (70-110) mg/dL Assessment and Plan Plan: Ischemic stroke involving the right MCA territory predominantly on the right frontal lobe and insular cortex. Follow-up CT scan today revealed questionable petechial hemorrhage over the right frontal parietal. Patient remains on aspirin rectally 300 mg daily. Neurologist on the case and neurologically the patient is slightly improved with some limited motor function being established in the left upper and left lower extremity. Atrial fibrillation, with a controlled rate, no anticoagulants yet, and the patient has a petechial hemorrhage within the right MCA distribution/territory stroke. The patient was started on anticoagulation with Eliquis 2.5 mg p.o. twice a day Dysphagia secondary to CVA post PEG tube insertion on 10/02/2024, he is receiving enteral feeding via PEG tube. Bilateral pleural effusions/most likely secondary to chronic renal failure or diastolic congestive heart failure, patient had normal LV function based on his last echocardiogram. Benign essential hypertension. Dyslipidemia. History of CVA. Diabetes with diabetic peripheral neuropathy. History of seizures. End-stage renal disease, on hemodialysis Thursday schedule. Scheduled to undergo hemodialysis today. Plan: Clinically stable Limited improvement in motor function on the left side was noted Patient currently on room air oxygen PEG tube was inserted on 10/02/2024 and the patient was started on enteral feeding for nutritional support Continue aspirin anticoagulation with Eliquis 2.5 mg twice a day Continue Coreg 25 mg twice a day and the patient has a controlled rate Continue Keppra 500 mg IV every 12 hours Continue Lipitor 80 mg daily Levemir insulin 20 units nightly along with a sliding scale insulin coverage Hemodialysis per nephrology, the patient is being dialyzed TTS, The family has opted for hospice care. Hospice consult was initiated Prognosis remains poor. Pulmonary and critical care services will sign off
[2024-10-08 12:59] VITALS: BP 153/64; RESP 18; TEMP 98.2
--- NOTE | 2024-10-08 13:01 | P.DS ---
Providers Date of admission: 09/26/24 08:33 Expected date of discharge: 10/08/24 Attending physician: Tadeo Dickerson Consults: 09/21/24 15:52 Consult Physician Routine Consulting Provider: Brit Stevens Consult Reason/Comments: ESRD Do you want consulting provider notified?: Yes 09/22/24 13:26 Consult Physician Routine Consulting Provider: Edmundo Hall Consult Reason/Comments: resp distress bronchitis Do you want consulting provider notified?: Yes 09/24/24 09:24 Consult Physician Routine Consulting Provider: Tabitha Bustillo Consult Reason/Comments: cva Do you want consulting provider notified?: Yes Primary care physician: [facility] Course: Patient is a 79-year-old male with ESRD, presenting for syncope induced by cough. Patient is poor historian. He was recently admitted for similar symptoms on September 12 and subsequently discharged with doxycycline for treatment of tracheobronchitis for mucous plugging. Since this time patient has had persistent symptoms with sputum production. Denying fever, chills, shortness of breath, chest pain, palpitations at this time. Labs completed in emergency room significant for WBC 6.7, hemoglobin 10.0, s odium 132, potassium 5.0, bicarb 20, BUN 43, creatinine 5.31, glucose 260, A1c 7.3, ALP 146, proBNP 2840, viral respiratory panel is negative. EKG done in the ER independently interpreted showed sinus rhythm heart rate of 60, no ST segment elevation or depression seen, no T-wave inversions seen. Chest x-ray done independently interpreted in the ER showed hazy interstitial markings bilaterally 09/23/2024 Patient seen and examined at bedside. No acute events overnight. Will discontinue antibiotics and steroids. Today's labs significant for WBC 14.6, BUN 38, creatinine 4.2, glucose ranging from 416-209, procalcitonin negative, blood cultures pending with no growth thus far. 09/24/2024 Patient seen and examined at bedside. Overnight patient began having strokelike symptoms at around 4 AM as witnessed by in the room with new onset left- sided weakness, left-sided facial droop and slurred speech with difficulty swallowing. Code stroke was called. Initial CT head with no evidence of acute intracranial process, later MRI of brain with subacute/acute CVA involving right MCA predominantly right frontal lobe and insular cortex. Patient given 300 mg of aspirin rectally as could not tolerate oral swallowing. Neurology consulted. Dialysis today. Today's labs WBC 12.0, hemoglobin 11.3, sodium 133, BUN 78, creatinine 5.24, glucose 166. 09/25. Patient seen and examined. Patient is moving his left upper extremity more than yesterday, also lifting his left lower extremity. Family thinks that patient has improved compared to yesterday 09/26/24: Patient evaluated at bedside today. Patient's family mentioned that his strength is better but currently the patient is very tired as he was up all night coughing. Labs show hemoglobin 11.5, sodium 136, BUN 61, creatinine 5.22. Brain CT shows 0.4 cm petechial hemorrhage within the left parietal infarct may be present, increasing edema in the right parietal infarct as effacement of the sulk I with no midline shift or significant ventricle compression, old occipital watershed infarcts bilaterally. 09/27/24: Patient examined today. Dysphagia evaluation by ENGLISH AND READING INSTRUCTOR showed poor toleration of PO trials exhibiting severe coughing with 2 attempts, continue strict NPO. Labs today show hemoglobin 10.6, sodium 135, BUN 64, creatinine 5.63. EEG done yesterday shows abnormal routine EEG, background slowing with history of mild encephalopathy, no focal slowing/epileptiform discharge/seizure. Hemodialysis today. 09/28/24: Patient evaluated at bedside. Patient had hemodialysis yesterday, 2L was removed. Labs today show WBC 10.8, hemoglobin 10.7, sodium 131, potassium 3.4, bicarb 31, BUN 35, creatinine 4.35. Repeat CT Brain showed overall similar ex amination with evolving right MCA territory infarct and trace petechial hemorrhage, no midline shift, Remote injuries to bilateral frontal lobes and left temporal lobe with encephalomalacia. 09/29/24: Patient seen and examined. Hemodialysis today. Labs today show hemoglobin 10.6, sodium 129, BUN 43, creatinine 5.34. 09/30/24: Patient evaluated today. Vitals show BP is 153/69. Labs today show Hb 10.5, Na 127, BUN 24, creatinine 4.15. EKG done yesterday independently interpreted as Atrial fibrillation with Rapid ventricular response. Hemodialysis yesterday, 2L of fluid was removed. Patient underwent the videofluoroscopic swallow study today. Patient's family was counseled about the importance of PEG tube. 1/4/25: Patient examined at bedside. BP today is 155/72. The family mentioned that the patient's right arm is swollen. Pateint denies any pain on the right arm. Labs today show hemoglobin 11, sodium 130, BUN 28, creatinine 5.07. Chest x-ray shows mild bilateral interstitial edema. PT and OT recommends RAFA placement/24-7 care or rehab to maximize mobility efforts, improve functional status. 10/02. Patient seen and examined. Family at the bedside. Patient scheduled for PEG tube placement today October 03: Spoke to nurse. Resume PEG tube for medications and feeding if okay with surgery. at the bedside. Patient rather sleepy today. October 04: Patient more awake today. Tired. at the bedside. Helping with [place] interpretation. Per neurology repeat CT scan tomorrow. Then consider initiating blood thinners. Patient getting tube feeding at 40 cc an hour. NPO. October 05: Tolerating tube feeding. Spoke to the nurse not much residual. CT scan brain done today shows infarct in the right MCA territory. With mild petechial hemorrhage. No change compared to prior study. Also evidence of prior infarcts. Spoke with case consultant Justin. Hopefully patient can be discharged tomorrow after decision about anticoagulation per neurology. Patient has paroxysmal atrial fibrillation. Patient's prognosis rather guarded. This evening had a three-way conversation with me on the phone Dr. Bustillo in the patient's room having been on the phone and patient's family including her daughter at the bedside. Pros and cons at length about putting the patient Eliquis in view of the CAT scan was discussed. Understanding this risk of bleeding with Eliquis in view of atrial fibrillation. Finally the daughter decided to continue with the Eliquis understanding the risk of bleeding. Aspi rin will be discontinued. Advance care planning: This was discussed with patient's daughter. Patient's overall multiple medical problems were discussed including strokes of different area. Cognitive impairment. On dialysis. She wants the patient to be a DNR. Questions answered. Time spent about 25 minutes October 06: Patient remained tired lethargic. Patient's and son at the bedside. Lengthy discussion. They understand prognosis guarded. Tolerating PEG tube feeding. Spoke to social insurance analyst Justin about disposition. Later this afternoon I was told that he actually he did get up with assistance to a chair. In did follow commands will probably qualify for rehab. Awaiting the same. As per discussion yesterday Eliquis has been started and aspirin being discontinued. October 07: In bed. Tired. Will open eyes answer simple questions. Daughter at the bedside. Understand prognosis guarded. Has been restarted Eliquis. Will be transferred to [facility]. Dialysis to continue. Later this afternoon: Patient's other daughters were in the room. They have decided to proceed with hospice at home. Hospice is being called in. Patient was living at his daughter's house and now moved to his own house. Several questions were answered. Spoke with case consultant Justin. He will coordinate the rest. October 08: Dr. Bustillo from neurology called me this morning lengthy discussion l to make sure the decision about hospice was fully informed.. I did tell him about my discussion with the family yesterday. I did not talk to patient's elder daughter at the bedside. They were comfortable with the decision yesterday with which I concur. Patient is due to go home with hospice today. I also spoke to the nurse. Tube feeding continues. Did have some dispute to the family and family would like to take the patient home with hospice. With no dialysis. [facility] home hosp[facility] will follow at home Discussion and discharge planning more than 35 minutes Social history: No history of smoking or alcohol. Lives with his and daughter. Does use a walker. Daughter is the POA Physical examination: VITAL SIGNS: 98.2, 61, 18, 153 x 64, 98% room air GENERAL: Tired. Answering occasional questions. EYES: Pupils equal. Conjunctiva normal. HEENT: External appearance of nose and ears normal, oral cavity grossly normal. NECK: JVD not raised; masses not palpable. HEART: First and second heart sounds are normal; minimal edema. LUNGS: Respiratory rate normal, decreased breath sounds ABDOMEN: Soft, no tenderness no guarding rigidity, liver spleen not palpable, no masses palpable. PEG tube with feeding PSYCH: Will answer questions occasionally NEUROLOGICAL: Mild left-sided facial droop. Patient is able to move all his limbs. INVESTIGATIONS, reviewed in the clinical context: CT brain [October 05: Acute infarct with probable petechial hemorrhage in the right frontal lobe, in the distribution of right MCA. Essentially no change compared to the prior study. Large remote infarct involving the left parietal lobe and the moderate remote infarct involving the right right parietal white matter. October 04: White count 7.8 hemoglobin 10.4 sodium 126 potassium 3.7 BUN 36 creatinine 5.82 October 03: White count 12 hemoglobin 10.4 platelets 379 sodium 126 potassium 3.5 BUN [address] brain [October 03] evolving right MCA territory infarct with trace petechial hemorrhage. Remote injuries to bilateral frontal lobes and left temporal lobe with encephalomalacia Venous Doppler right upper extremity: No DVT Barium swallow: Aspiration thin liquids and suspected with nectar thick liquids. Poor bolus transfer CT brain [September 27]: Evolving right MCA territory infarct. Encephalomalacia within bilateral high parietal lobes and left parieto-occipital region left temporal lobe or from previous infarct EEG suggestive of encephalopathy. No epileptiform activity Brain MRI [September 16] acute/subacute CVA involving the right MCA territory predominantly the right frontal lobe and insular cortex. Chronic changes Assessment/Plan: Patient is a 79-year-old male with ESRD(TTS), presenting for cough induced syncope. He has been admitted for respiratory distress. The patient then had a CODE STROKE and he was found to have an acute CVA due to new onset atrial fibrillation. Brain CT showed petechial hemorrhage. MBS study showed inconsistent swallow and high risk for aspiration, tube was placed. Tolerating diet. 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 Repeat CT scan did show some evolution. With petechial hemorrhage. Repeat CT scan today as above no changes. Eliquis started after discussion with daughter. Aspirin discontinued. y # Paroxysmal, new onset Atrial fibrillation, Rapid ventricular response initially, now in sinus rhythm MRI brain with subacute CVA involving right MCA predominantly right frontal lobe and insular cortex Loop recorder interrogation showed new onset atrial fibrillation Brain CT shows 0.4 cm petechial hemorrhage within the left parietal infarct may be present, increasing edema in right parietal infarct as effacement of the sulci with no midline shift or significant ventricle compression, old occipital watershed infarcts bilaterally EEG-, background slowing with history of mild encephalopathy, no focal slowing/epileptiform discharge/seizure Repeat CT Brain showed overall similar examination with evolving right MCA territory infarct and trace petechial hemorrhage, no midline shift. Remote injuries to bilateral frontal lobes and left temporal lobe with encephalomalacia Bubble study was inconclusive Neurology following, Eliquis started as per discussion with neurology and patient's daughter's choice. Coreg 25 mg twice daily -Acute dysphagia secondary to stroke: Strict n.p.o. Dysphagia evaluation by ENGLISH AND READING INSTRUCTOR showed poor toleration of PO trials exhibiting severe coughing with 2 attempts, continue strict NPO Videofluoroscopic swallow study shows aspiration with thin liquids and suspected with nectar thick liquids, poor bolus transfer PEG tube placed on October 02-tube feeding tolerated at goal #. Right upper extremity edema Duplex venous ultrasound negative for DVT # Bilateral pleural effusion secondary to chronic kidney disease and/or diastolic congestive heart failure. Pulmonary following. On hemodialysis # Hyponatremia, moderate Hemodialysis Thursday schedule Continue dialysis per nephrology # Diabetes mellitus, type II chronically on insulin Follow Accu-Cheks with scale. 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 Stevens On hemodialysis Upon discharge home hemodialysis being discontinued -Chronic gait dysfunction uses a walker at home -DNR: Discussed with patient's daughter and . Disposition: Plan now is for patient to go home with hospice. air operations manager Justin looking into home with hospice for tomorrow. [facility] coordinating. Advance care planning: [October 07, 2024] Discussed with the several daughters at the bedside. and the eldest daughter's decision making/medical POA. Except [place] including feeding was discussed. Await input from hospice if feeding can be continued otherwise could use bolus feeding with a syringe. He also did stop dialysis therefore. Time spent for this about 25 minutes. Disposition: Home with hospice Plan - Discharge Summary Discharge Rx Participant: No New Discharge Prescriptions: New carvediloL [Coreg*] 25 mg PO BID-W/MEALS tab Ipratropium-Albuterol Nebulize [Duoneb 0.5 mg-3 mg/3 ml Soln] 3 ml INHALATION TID each Apixaban [Eliquis] 2.5 mg PO BID tab Atorvastatin [Lipitor] 80 mg PO HS tab INSULIN ASPART (NovoLOG) [NovoLOG (formulary)] 0 unit SQ 0000,0600,1200,1800 each Acetaminophen Tab [Tylenol] 650 mg PO Q4HR PRN tab PRN Reason: Mild Pain Or Fever > 100.5 Continue DULoxetine HCL [Cymbalta] 30 mg PO HS levETIRAcetam [Keppra] 500 mg PO BID Ergocalciferol (Vitamin D2) [Drisdol (50,000 Iu)] 1,250 mcg PO MO Vit B Comp No.3/Folic/C/Biotin [Catie-Loly Rx Tablet] 1 tab PO TUTHSA@0900,2100 Midodrine HCl [ProAmatine] 10 mg PO TID PRN PRN Reason: SBP below 140 Albuterol Inhaler [Ventolin Hfa Inhaler] 2 puff INHALATION RT-QID PRN PRN Reason: Shortness Of Breath Changed Insulin Glargine [Lantus Vial] 26 unit SQ HS #0 Discontinued Atorvastatin [Lipitor] 20 mg PO HS INSULIN ASPART (NovoLOG) [NovoLOG (formulary)] 10 unit SQ AC-BID@0900,1200 carvediloL [Coreg*] 12.5 mg PO BID Torsemide [Demadex] 20 mg PO DAILY #30 tab NIFEdipine XL [Procardia XL] 60 mg PO BID Isosorbide Mononitrate ER [Imdur] 120 mg PO DAILY INSULIN ASPART (NovoLOG) [NovoLOG (formulary)] 12 unit SQ AC-SUPPER Aspirin 162.5 mg PO DAILY Discharge Medication List DULoxetine HCL [Cymbalta] 30 mg PO HS 03/13/16 [History] levETIRAcetam [Keppra] 500 mg PO BID 12/11/20 [History] Ergocalciferol (Vitamin D2) [Drisdol (50,000 Iu)] 1,250 mcg PO MO 02/24/24 [History] Vit B Comp No.3/Folic/C/Biotin [Catie-Loly Rx Tablet] 1 tab PO TUTHSA@0900,2100 04/17/24 [History] Albuterol Inhaler [Ventolin Hfa Inhaler] 2 puff INHALATION RT-QID PRN 09/11/24 [History] Midodrine HCl [ProAmatine] 10 mg PO TID PRN 09/11/24 [History] Acetaminophen Tab [Tylenol] 650 mg PO Q4HR PRN tab 10/07/24 [Rx] Apixaban [Eliquis] 2.5 mg PO BID tab 10/07/24 [Rx] Atorvastatin [Lipitor] 80 mg PO HS tab 10/07/24 [Rx] INSULIN ASPART (NovoLOG) [NovoLOG (formulary)] 0 unit SQ 0000,0600,1200,1800 each 10/07/24 [Rx] Insulin Glargine [Lantus Vial] 26 unit SQ HS #0 10/07/24 [Rx] Ipratropium-Albuterol Nebulize [Duoneb 0.5 mg-3 mg/3 ml Soln] 3 ml INHALATION TID each 10/07/24 [Rx] carvediloL [Coreg*] 25 mg PO BID-W/MEALS tab 10/07/24 [Rx] Follow up Appointment(s)/Referral(s): Brit Stevens MD [STAFF PHYSICIAN] - 1 Week [facility] [REFERRING] - 1 Week Dennis Santana DO [Primary Care Provider] - 1-2 days Bennett Sierra DO [STAFF PHYSICIAN] - 2 Weeks Radha Oliver MD [REFERRING] - 2 Weeks
[2024-10-08 15:56] VITALS: PULSE 60
== END 2024-10-08 16:40 | disposition hospice, home (50) | DRG 64 ==
LOC: EC 12:42 → 6NMEDSUR 15:47 → 3SCARD 09-24 06:22 → OBSVTOIN 09-26 08:33 → 3SCARD 09-26 17:05
PROVIDERS: ADMIT Hospitalist; ATTEND Hospitalist
PROC: 5A1D70Z Performance of Urinary Filtration, Intermittent, Less than 6 Hours Per Day (ICD-10-PCS; principal; 2024-09-23)
PROC: 4A10X4Z Monitoring of Central Nervous Electrical Activity, External Approach (ICD-10-PCS; 2024-09-26)
PROC: F00ZHZZ Bedside Swallowing and Oral Function Assessment (ICD-10-PCS; 2024-09-26)
PROC: 0DH63UZ Insertion of Feeding Device into Stomach, Percutaneous Approach (ICD-10-PCS; 2024-10-02)
PROC: 3E0G76Z Introduction of Nutritional Substance into Upper GI, Via Natural or Artificial Opening (ICD-10-PCS; 2024-10-02)
DX: I63.411 Cerebral infarction due to embolism of right middle cerebral artery (principal); E43 Unspecified severe protein-calorie malnutrition; J18.9 Pneumonia, unspecified organism; N18.6 End stage renal disease; G81.94 Hemiplegia, unspecified affecting left nondominant side; I13.2 Hypertensive heart and chronic kidney disease with heart failure and with stage 5 chronic kidney disease, or end stage renal disease; I50.32 Chronic diastolic (congestive) heart failure; J98.11 Atelectasis; E87.1 Hypo-osmolality and hyponatremia; F01.53 Vascular dementia, unspecified severity, with mood disturbance; E11.22 Type 2 diabetes mellitus with diabetic chronic kidney disease; E11.42 Type 2 diabetes mellitus with diabetic polyneuropathy; E78.5 Hyperlipidemia, unspecified; F32.A Depression, unspecified; H54.62 Unqualified visual loss, left eye, normal vision right eye; I25.10 Atherosclerotic heart disease of native coronary artery without angina pectoris; I48.0 Paroxysmal atrial fibrillation; Z11.52 Encounter for screening for COVID-19; Z66 Do not resuscitate; J06.9 Acute upper respiratory infection, unspecified; J20.9 Acute bronchitis, unspecified; R13.10 Dysphagia, unspecified; R29.810 Facial weakness; R29.716 NIHSS score 16; Z87.442 Personal history of urinary calculi; Z99.2 Dependence on renal dialysis; Z86.16 Personal history of COVID-19; Z68.28 Body mass index [BMI] 28.0-28.9, adult; G40.909 Epilepsy, unspecified, not intractable, without status epilepticus; G93.89 Other specified disorders of brain; R55 Syncope and collapse; T38.0X5A Adverse effect of glucocorticoids and synthetic analogues, initial encounter; I69.318 Other symptoms and signs involving cognitive functions following cerebral infarction; X58.XXXA Exposure to other specified factors, initial encounter; Z79.01 Long term (current) use of anticoagulants; Z79.4 Long term (current) use of insulin; Z79.82 Long term (current) use of aspirin; Z79.899 Other long term (current) drug therapy; Z95.818 Presence of other cardiac implants and grafts; Z90.49 Acquired absence of other specified parts of digestive tract
CPT/HCPCS: 36415; 43246; 70450; 70496; 70498; 70551; 71045; 71046; 71250; 74230; 80048; 80053; 80061; 83036; 83605; 83880; 84100; 84145; 84443; 85025; 85027; 85610; 85730; 87040; 87324; 87449; 87636; 90935; 93005; 93308; 94640; 94760; 95816; 96365; 96375; 99285